=== PATIENT | male | born 1970 | race Caucasian/White ===

== ENCOUNTER 2023-08-12 11:39 | Outpatient (OUT) | payer MEDICARE, SELFPAY ==
[2023-08-12 12:41] LABS: Estimated Average Glucose 88 mg/dL; Glycohemoglobin A1C 4.7 % (4.5-6.2)
[2023-08-12 13:01] LABS: Basophils Percent Auto 0.6 % (0.2-2.0); Eosinophils Absolute Auto 0.1 10^3/uL (0.0-0.7); Eosinophils Percent Auto 2.3 % (0.9-7.0); Hematocrit 47.9 % (42.0-54.0); Immature Granulocytes Abs Auto 0.01 10^3/uL (0.00-0.03); Immature Granulocytes Pct Auto 0.2 % (0.0-0.5); Lymphocytes Absolute Auto 1.3 10^3/uL (1.2-3.8); Lymphocytes Percent Auto 27.2 % (20.5-60.0); Mean Corpuscular HGB Conc 33.4 g/dL (29.9-35.2); Mean Corpuscular Hemoglobin 34.8 pg (25.9-34.0); Mean Corpuscular Volume 104.1 fL (80.0-94.0); Mean Platelet Volume 11.8 fL (9.5-13.5); Monocytes Absolute Auto 0.5 10^3/uL (0.3-0.8); Monocytes Percent Auto 10.3 % (1.7-12.0); Neutrophils Absolute Auto 2.8 10^3/uL (1.4-6.5); Neutrophils Percent Auto 59.4 % (43.0-75.0); Platelet Count 110 10^3/uL (150-450); Red Cell Distribution Width 12.3 % (11.0-15.0); White Blood Count 4.8 10^3/uL (4.0-11.0)
[2023-08-12 13:15] LABS: Anion Gap 16.5; Chloride 102 mmol/L (98-107); Potassium 4.5 mmol/L (3.5-5.1); Sodium 137 mmol/L (136-145)
[2023-08-12 13:42] LABS: Alanine Aminotransferase 33 U/L (16-63); Albumin Globulin Ratio 0.7; Albumin Level 3.3 g/dL (3.4-5.0); Alkaline Phosphatase 121 U/L (46-116); Aspartate Amino Transferase 42 U/L (15-37); BUN Creatinine Ratio 13.9; Bilirubin Total 1.1 mg/dL (0.2-1.0); Calcium 9.4 mg/dL (8.5-10.1); Chol HDL Ratio 2.7; Cholesterol 247 mg/dL (<=200); Estimated GFR (African America >60 (>=60); Estimated GFR (Non-African Ame >60 (>=60); Free T3 2.26 pg/mL (2.18-3.98); Globulin 4.7 g/dL; Glucose 114 mg/dL (74-106); HDL Cholesterol 93 mg/dL (40-60); Thyroid Stimulating Hormone 1.944 uIU/mL (0.358-3.740); Triglycerides 92 mg/dL (<=150); VLDL CHOLESTEROL 18.4 mg/dL
[2023-08-12 15:50] LABS: Prostate Specific Antigen Scrn 0.84 ng/mL (<=4.00)
[2023-08-13 11:09] LABS: Insulin 26.7 uIU/mL (2.6-24.9)
== END 2023-08-12 11:40 | disposition home or self-care (01) ==
LOC: LAB 11:40
PROVIDERS: PCP Family Medicine; Visit Provider Family Medicine
DX: I10 Essential (primary) hypertension (principal); E83.119 Hemochromatosis, unspecified; E78.5 Hyperlipidemia, unspecified; K76.0 Fatty (change of) liver, not elsewhere classified; N17.9 Acute kidney failure, unspecified; R73.09 Other abnormal glucose; Z12.5 Encounter for screening for malignant neoplasm of prostate; D64.9 Anemia, unspecified
CPT/HCPCS: 36415; 80053; 80061; 82728; 83036; 83525; 83540; 84436; 84443; 84481; 85025; G0103

== ENCOUNTER 2023-08-22 13:48 | Outpatient (OUT) | payer MEDICARE, SELFPAY ==
[2023-08-22 14:00] LABS: Basophils Percent Auto 0.5 % (0.2-2.0); Eosinophils Absolute Auto 0.1 10^3/uL (0.0-0.7); Hematocrit 45.4 % (42.0-54.0); Hemoglobin 15.5 g/dL (14.0-18.0); Immature Granulocytes Abs Auto 0.02 10^3/uL (0.00-0.03); Immature Granulocytes Pct Auto 0.4 % (0.0-0.5); Lymphocytes Absolute Auto 1.5 10^3/uL (1.2-3.8); Lymphocytes Percent Auto 26.7 % (20.5-60.0); Mean Corpuscular HGB Conc 34.1 g/dL (29.9-35.2); Mean Corpuscular Hemoglobin 34.8 pg (25.9-34.0); Mean Platelet Volume 11.2 fL (9.5-13.5); Monocytes Absolute Auto 0.6 10^3/uL (0.3-0.8); Monocytes Percent Auto 10.4 % (1.7-12.0); Neutrophils Absolute Auto 3.4 10^3/uL (1.4-6.5); Platelet Count 109 10^3/uL (150-450); Red Blood Count 4.45 10^6/uL (4.70-6.10); Red Cell Distribution Width 12.1 % (11.0-15.0); White Blood Count 5.6 10^3/uL (4.0-11.0)
== END 2023-08-22 13:49 | disposition home or self-care (01) ==
LOC: LAB 13:48
PROVIDERS: PCP Family Medicine; Visit Provider Family Medicine
DX: E03.9 Hypothyroidism, unspecified (principal); D69.6 Thrombocytopenia, unspecified
CPT/HCPCS: 36415; 85025

== ENCOUNTER 2023-09-17 14:46 | Outpatient (OUT) | payer OTHER, SELFPAY ==
[2023-09-17 15:35] LABS: Thyroid Stimulating Hormone 1.353 uIU/mL (0.358-3.740)
--- OUTSIDE RECORDS SUMMARY | 2023-10-28 15:56 | XMS_ITS | CCD ---
Author Name Unknown Address [address] [place] [address] Organization [facility] Care Team Providers Care Hand Carver Name Role Phone None, No PCP Unavailable Unavailable STEPHANIE, DR AMADOU Chang Attending Unavailable STEPHANIE, DR AMADOU Chang Consulting Unavailable STEPHANIE, DR AMADOU Chang Admitting Unavailable HOY, DR VALLEJO Primary Care Unavailable DARREN, DR Teresa Alcala Admitting Unavailable DARREN, DR Teresa Alcala Attending Unavailable HOY, DR VALLEJO Primary Care Unavailable MAXWELL, DR VALLEJO Consulting Unavailable DARREN, DR Teresa Alcala Consulting Unavailable PolicaroKristen Consulting Unavailable MAXWELL, DR VALLEJO Admitting Unavailable MAXWELL, DR VALLEJO Attending Unavailable AQUILINOY, DR VALLEJO Primary Care Unavailable MAXWELL, DR VALLEJO Consulting Unavailable STEPHANIE, DR AMADOU Chang Consulting Unavailable STEPHANIE, DR AMAODU Chang Admitting Unavailable STEPHANIE, DR AMADOU Chang Attending Unavailable MAXWELL, DR VALLEJO Primary Care Unavailable MAXWELL, DR VALLEJO Primary Care Unavailable STEPHANIE, DR AMADOU Chang Consulting Unavailable STEPHANIE, DR AMADOU Chang Admitting Unavailable STEPHANIE, DR AMADOU Chang Attending Unavailable MAXWELL, DR VALLEJO Primary Care Unavailable MISC, DR POWELL Admitting Unavailable MISC, DR POWELL Attending Unavailable MAXWELL, DR VALLEJO Consulting Unavailable MISC, DR POWELL Consulting Unavailable STEPHANIE, DR AMADOU Chang Consulting Unavailable STEPHANIE, DR AMADOU Chang Consulting Unavailable STEPHANIE, DR AMADOU Chang Admitting Unavailable STEPHANIE, DR AMADOU Chang Attending Unavailable MAXWELL, DR VLALEJO Primary Care Unavailable MAXWELL, DR VALLEJO Admitting Unavailable MAXWELL, DR VALLEJO Attending Unavailable MAXWELL, DR VALLEJO Primary Care Unavailable HOQian, DR VALLEJO Consulting Unavailable MAXWELL, DR VALLEJO Admitting Unavailable MAXWELL, DR VALLEJO Attending Unavailable MAXWELL, DR VALLEJO Primary Care Unavailable MAXWELL, DR VALLEJO Consulting Unavailable STEPHANIE, DR AMADOU Chang Consulting Unavailable STEPHANIE, DR AMADOU Chang Admitting Unavailable STEPHANIE, DR AMADOU Chang Attending Unavailable MAXWELL, DR VALLEJO Primary Care Unavailable STEPHANIE, DR AMADOU Chang Consulting Unavailable STEPHANIE, DR AMADOU Chang Admitting Unavailable HOY, DR VALLEJO Primary Care Unavailable STEPHANIE, DR AMADOU Chang Attending Unavailable HOY, DR VALLEJO Primary Care Unavailable STEPHANIE, DR AMADOU Chang Consulting Unavailable STEPHANIE, DR AMADOU Chang Admitting Unavailable STEPHANIE, DR AMADOU Chang Attending Unavailable STEPHANIE, DR AMADOU Chang Consulting Unavailable STEPHANIE, DR AMADOU Chang Attending Unavailable STEPHANIE, DR AMADOU Chang Admitting Unavailable HOY, DR VALLEJO Primary Care Unavailable HOY, DR VALLEJO Primary Care Unavailable STEPHANIE, DR AMADOU Chang Consulting Unavailable STEPHANIE, DR AMADOU Chang Admitting Unavailable STEPHANIE, DR AMADOU Chang Attending Unavailable MISC, DR POWELL Consulting Unavailable MISC, DR POWELL Admitting Unavailable MISC, DR POWELL Attending Unavailable HOY, DR VALLEJO Primary Care Unavailable STEPHANIE, DR AMADOU Chang Consulting Unavailable HOY, DR VALLEJO Primary Care Unavailable STEPHANIE, DR AMADOU Chang Attending Unavailable STEPHANIE, DR AMADOU Chang Consulting Unavailable STEPHANIE, DR AMADOU Chang Admitting Unavailable STEPHANIE, DR AMADOU Chang Attending Unavailable STEPHANIE, DR AMADOU Chang Consulting Unavailable STEPHANIE, DR AMADOU Chang Admitting Unavailable HOY, DR VALLEJO Primary Care Unavailable STEPHNAIE, DR AMADOU Chang Attending Unavailable STEPHANIE, DR AMADOU Chang Consulting Unavailable STEPHANIE, DR AMADOU Chang Admitting Unavailable HOY, DR VALLEJO Primary Care Unavailable STEPHANIE, DR AMADOU Chang Consulting Unavailable STEPHANIE, DR AMADOU Chang Attending Unavailable STEPHANIE, DR AMADOU Chang Admitting Unavailable HOY, DR VALLEJO Primary Care Unavailable STEPHANIE, DR AMADOU Chang Consulting Unavailable STEPHANIE, DR AMADOU Chang Attending Unavailable STEPHANIE, DR AMADOU Chang Admitting Unavailable HOY, DR VALLEJO Primary Care Unavailable REQUEST, DR RASCON LISTED Consulting Unavaila ble MAXWELL, DR VALLEJO Primary Care Unavailable REQUEST, DR RASCON LISTED Admitting Unavaila ble REQUEST, DR RASCON LISTED Attending Unavaila ble MAXWELL, DR VALLEJO Primary Care Unavailable STEPHANIE, DR AMADOU Chang Admitting Unavailable STEPHANIE, DR AMADOU Chang Attending Unavailable HOY, DR VALLEJO Consulting Unavailable STEPHANIE, DR AMADOU Chang Consulting Unavailable STEPHANIE, DR AMADOU Chang Consulting Unavailable STEPHANIE, DR AMADOU Chang Admitting Unavailable HOY, DR VALLEJO Primary Care Unavailable STEPHANIE, DR AMADOU Chang Attending Unavailable HOQian, DR VALLEJO Primary Care Unavailable REQUEST, DR RASCON LISTED Consulting Unavaila ble REQUEST, DR RASCON LISTED Admitting Unavaila ble REQUEST, DR RASCON LISTED Attending Unavaila ble Magaly Sewelline Attending Unavail Matheus Moore Referring UnavailGenevieve Hernandez Primary Care Unavailable Magaly Sewell Admitting Fortino hanson Allergies Allergy Classification Reported Allergen(s) Allergy Type Date of Onset Reaction(s) Facility (2 sources) Morphine Drug Allergy 2 Swelling of the Eye [facility] Repository (1 source) Morphine Drug Allergy 2 [facility] Repository Medications Current Medications Medication Drug Class(es) Dates Sig (Normalized) Sig (Original) carvedilol 6.25 mg oral tablet (6 sources) alpha-Adrenergic Radha, beta-Adrenergic Radha Start: 05-18-2020 take 6.25 mg by mouth twice daily Carvedilol Active 6.25 MG PO Twice daily May 18, 2020 12:00am folic acid 1 mg oral tablet (2 sources) Start: 05-11-2021 End: 05-11-2021 take 1 mg by mouth once daily Folic Acid Active 1 MG PO Daily May 11, 2021 12:13pm lisinopril 2.5 mg oral tablet (2 sources) Angiotensin Converting Enzyme Inhibitor Start: 04-11-2021 take 2.5 mg by mouth once daily Lisinopril Active 2.5 MG PO Daily April 11, 2021 12:00am Start: 04-20-2020 End: 04-22-2020 take 10 mg by mouth once daily Lisinopril Discontinued 10 MG PO Daily April 20, 2020 12:00am April 22, 2020 12:04pm mirtazapine 45 mg oral tablet (6 sources) Start: 04-20-2020 take 45 mg by mouth once daily Mirtazapine Active 45 MG PO Daily April 20, 2020 12:00am risperiDONE 1 mg oral tablet (6 sources) Atypical Antipsychotic Start: 04-20-2020 take 1 mg by mouth once daily Risperidone Active 1 MG PO Daily April 20, 2020 12:00am Completed/Discontinued Medications Medication Drug Class(es) Dates Sig (Normalized) Sig (Original) simvastatin 10 mg oral tablet (1 source) HMG-CoA Reductase Inhibitor Start: 04-20-2020 End: 12-12-2020 take 10 mg by mouth once daily Simvastatin Discontinued 10 MG PO Daily April 20, 2020 12:00am December 12, 2020 12:20pm Problems Active Problems Problem Classification Problem Date Documented Da te Episodic/Chronic Acute and unspecified renal failure (1 source) Injury of kidney; Translations: [Acute kidney failure, unspecified] 04-21-2020 Episodic Anxiety disorders (1 source) Anxiety; Translations: [Anxiety disorder, unspecified] 12-13-2020 Chronic Deficiency and other anemia (1 source) Anemia due to blood loss; 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-2022 Chronic Disorders of lipid metabolism (1 source) Hypercholesterolemi a; Translations: [Pure hypercholesterolemi a, unspecified] 12-13-2020 Chronic Essential hypertension (5 sources) Essential (primary) hypertension; Translations: [Hypertensive disorder] Onset: 11-26-2021 Chronic Hepatitis (1 source) Nonalcoholic steatohepatitis; Translations: [Other chronic nonalcoholic liver disease] Chronic Comment on above: Liver Biopsy 2020: T he findings are consistent with steatohepatitis with pericellular andperiportal fibrosis, regardless of the etiology, activity score ASAF grade 4 of8, fibrosis stage 2 of 4.; Other circulatory disease (5 sources) H/O: hypertension; Translations: [Personal history of other diseases of circulatory system] Episodic Other gastrointestinal disorders (1 source) Diarrhea; Translations: [Diarrhea, unspecified] 12-13-2020 Episodic Other liver diseases (1 source) Steatosis of liver; Translations: [Fatty (change of) liver, not elsewhere classified] 09-13-2021 Chronic Other liver diseases (1 source) Enzyme level - finding; Translations: [Abnormal levels of other serum enzymes] 05-12-2021 Episodic Other nutritional; endocrine; and metabolic disorders (5 sources) Hemochromatosis; Translations: [Other hemochromatosis] Chronic Other nutritional; endocrine; and metabolic disorders (5 sources) Iron overload; Translations: [Other disorders of iron metabolism] Chronic Other nutritional; endocrine; and metabolic disorders (5 sources) Hereditary hemochromatosis; Translations: [HEREDITARY HEMOCHROMATOSIS] Onset: 11-26-2021 Chronic Other nutritional; endocrine; and metabolic disorders (5 sources) Hemochromatosis, unspecified; Translations: [HEMOCHROMATOSIS UNSPECIFIED] Onset: 12-15-2020 Chronic Other nutritional; endocrine; and metabolic disorders (1 source) Other disorders of iron metabolism; Translations: [OTHER DISORDERS OF IRON METABOLISM] Onset: 05-06-2021 Chronic Other nutritional; endocrine; and metabolic disorders (1 source) Hereditary hemochromatosis; Translations: [Hereditary hemochromatosis] 12-13-2020 Chronic Other screening for suspected conditions (not mental disorders or infectious disease) (5 sources) Measurement finding above reference range; Translations: [Other nonspecific findings on examination of blood] Episodic Screening and history of mental health and substance abuse codes (5 sources) H/O: anxiety state; Translations: [Personal history of other mental disorders] Episodic Unclassified (3 sources) CONTACT W/AND (SUSP) EXPOS COVID-19; Translations: [CONTACT W/AND (SUSP) EXPOS COVID-19] Onset: 11-22-2021 Past or Other Problems Problem Classification Problem Date Documented Date Episodic/Chronic Noninfectious gastroenteritis (1 source) Noninfective gastroenteritis and colitis, unspecified; Translations: [NONINFECTIVE GE AND COLITIS UNS] Onset: 01-11-2021 Episodic Other liver diseases (4 sources) Abnormal levels of other serum enzymes; Translations: [ABNORMAL LEVELS OTHER SERUM ENZYMES] Onset: 12-09-2020 Episodic Unclassified (1 source) CONTACT W/AND (SUSP) EXPOS COVID-19; Translations: [CONTACT W/AND (SUSP) EXPOS COVID-19] Onset: 11-15-2021 Results Test Name Value Interpretation Reference Range Facil ity In office Testingon 01-29-20 23 In office Testing [id number]:127 Normal [facility] AMYLASEon 11-26-2021 Amylase [Catalytic activity/Vol] 53 U/L Normal 31- 110 [facility] Comment on above: Performed By: #### T 7, LIPA, TSH, AMADOU, CMP #### [facility] [address] [address] [address] Krystle Heaton CBC AUTO DIFFon 11-26-2021 BASO # 0.0 103/ul Normal 0.0-0.1 [facility] Comment on above: Performed By: #### F ERR #### [facility] [address] [address] [address] Krystle Heaton Basophils/100 WBC (Bld) 0.6 % Normal 0.2-2.0 [facility] Comment on above: Performed By: #### F ERR #### [facility] [address] [place] [address] Dr. Krystle Heaton EO # 0.1 103/ul Normal 0.0-0.7 [facility] Comment on above: Performed By: #### F ERR #### [facility] [address] [place] [address] Dr. Krystle Heaton Eosinophils/100 WBC (Bld) 2.7 % Normal 0.9-7.0 [facility] Comment on above: Performed By: #### F ERR #### [facility] [address] [place] [address] Dr. Krystle Heaton Erythrocyte distribution wid th (RBC) [Ratio] 16.0 % Critically high 11.0-15.0 [facility] Comment on above: Performed By: #### F ERR #### [facility] [address] [place] [address] Dr. Krystle Heaton Hematocrit (Bld) [Volume fraction] 42.8 % Normal 4 2.0-54.0 [facility] Comment on above: Performed By: #### F ERR #### [facility] [address] [place] [address] Dr. Krystle Heaton Hemoglobin (Bld) [Mass/Vol] 13.0 g/dL Critically low 14.0 -18.0 [facility] Comment on above: Performed By: #### F ERR #### [facility] [address] [place] [address] Dr. Krystle Heaton IG # 0.02 10e3/ul Normal 0.00-0.03 [facility] Comment on above: Performed By: #### F ERR #### [facility] [address] [place] [address] Dr. Krystle Heaton IG % 0.4 % Normal 0.0-0.5 [facility] Comment on above: Performed By: #### F ERR #### [facility] [address] [place] [address] Dr. Krystle Heaton LYMPH # 0.9 103/ul Critically low 1.2-3.8 [facility] Comment on above: Performed By: #### F ERR #### [facility] [address] [place] [address] Dr. Krystle Heaton Lymphocytes/100 WBC (Bld) 19.1 % Critically low 20.5-6 0.0 [facility] Comment on above: Performed By: #### F ERR #### [facility] [address] [place] [address] Dr. Krystle Heaton MANUAL DIFF REQ NO Normal [facility] Comment on above: Performed By: #### F ERR #### [facility] [address] [place] [address] Dr. Krystle Heaton MCH (RBC) [Entitic mass] 27.7 pg Normal 25.9-34.0 [facility] Comment on above: Performed By: #### F ERR #### [facility] [address] [place] [address] Dr. Krystle Heaton MCHC (RBC) [Mass/Vol] 30.4 g/dL Normal 29.9-35.2 [facility] Comment on above: Performed By: #### F ERR #### [facility] [address] [place] [address] Dr. Krystle Heaton MCV (RBC) [Entitic vol] 91.1 fL Normal 80.0-94.0 [facility] Comment on above: Performed By: #### F ERR #### [facility] [address] [place] [address] Dr. Krystle Heaton MONO # 0.5 103/ul Normal 0.3-0.8 [facility] Comment on above: Performed By: #### F ERR #### [facility] [address] [place] [address] Dr. Krystle Heaton Monocytes/100 WBC (Bld) 10.4 % Normal 1.7-12.0 [facility] Comment on above: Performed By: #### F ERR #### [facility] [address] [place] [address] Dr. Krystle Heaton NEUT # 3.2 103/ul Normal 1.4-6.5 [facility] Comment on above: Performed By: #### F ERR #### [facility] [address] [place] [address] Dr. Krystle Heaton Neutrophils/100 WBC (Bld) 66.8 % Normal 43.0-75.0 [facility] Comment on above: Performed By: #### F ERR #### [facility] [address] [place] [address] Dr. Krystle Heaton Platelet mean volume (Bld) [ Entitic vol] 11.3 fL Normal 9.5-13.5 [facility] Comment on above: Performed By: #### F ERR #### [facility] [address] [place] [address] Dr. Krystle Heaton PLT 177 103/ul Normal 150-450 [facility] Comment on above: Performed By: #### F ERR #### [facility] [address] [place] [address] Dr. Krystle Heaton RBC 4.70 106/ul Normal 4.70-6.10 [facility] Comment on above: Performed By: #### F ERR #### [facility] [address] [place] [address] Dr. Krystle Heaton WBC 4.8 103/ul Normal 4.0-11.0 [facility] Comment on above: Performed By: #### F ERR #### [facility] [address] [place] [address] Dr. Krystle Heaton FERRITINon 11-26-2021 Ferritin [Mass/Vol] 63.0 ng/mL Normal 17.9-464.0 [facility] Comment on above: Performed By: #### C BC #### [facility] [address] [place] [address] Billy Devlin FREE THYROXINE INDEX T7on FTI 2.14 Normal [facility] Comment on above: Performed By: #### T 7, LIPA, TSH, AMADOU, CMP #### [facility] [address] [place] [address] Dr. Krystle Heaton T3U 34.0 % Normal 23.5-40.5 [facility] Comment on above: Performed By: #### T 7, LIPA, TSH, AMADOU, CMP #### [facility] [address] [place] [address] Dr. Krystle Heaton T4 [Mass/Vol] 6.30 ug/dL Normal 5.53-11.00 [facility] Comment on above: Performed By: #### T 7, LIPA, TSH, AMADOU, CMP #### [facility] [address] [place] [address] Dr. Krystle Heaton LIPASEon 11-26-2021 Lipase [Catalytic activity/Vol] 115.0 U/L Normal 23.0 -300.0 [facility] Comment on above: Performed By: #### T 7, LIPA, TSH, AMADOU, CMP #### [facility] [address] [place] [address] Dr. Krystle Heaton PROF 14(COMP METB)on 022 Albumin [Mass/Vol] 3.6 g/dL Normal 3.5-5.0 [facility] Comment on above: Performed By: #### T 7, LIPA, TSH, AMADOU, CMP #### [facility] [address] [place] [address] Dr. Krystle Heaton Albumin/Globulin [Mass ratio] 0.9 {ratio} Normal [facility] Comment on above: Performed By: #### T 7, LIPA, TSH, AMADOU, CMP #### [facility] [address] [place] [address] Dr. Krystle Heaton ALP [Catalytic activity/Vol] 94 U/L Normal 38-126 [facility] Comment on above: Performed By: #### T 7, LIPA, TSH, AMADOU, CMP #### [facility] [address] [place] [address] Dr. Krystle Heaton ALT [Catalytic activity/Vol] 103 U/L Critically high 21 -72 [facility] Comment on above: Performed By: #### T 7, LIPA, TSH, AMADOU, CMP #### [facility] [address] [place] [address] Dr. Krystle Heaton Anion gap [Moles/Vol] 12.8 mmol/L Normal [facility] Comment on above: Performed By: #### T 7, LIPA, TSH, AMADOU, CMP #### [facility] [address] [place] [address] Dr. Krystle Heaton AST [Catalytic activity/Vol] 148 U/L Critically high 17 -59 [facility] Comment on above: Performed By: #### T 7, LIPA, TSH, AMADOU, CMP #### [facility] [address] [address] [address] Krystle Heaton Bilirubin [Mass/Vol] 1.2 mg/dL Normal 0.2-1.3 [facility] Comment on above: Performed By: #### T 7, LIPA, TSH, AMADOU, CMP #### [facility] [address] [place] [address] Dr. Krystle eHaton Calcium [Mass/Vol] 9.1 mg/dL Normal 8.4-10.2 [facility] Comment on above: Performed By: #### T 7, LIPA, TSH, AMADOU, CMP #### [facility] [address] [place] [address] Dr. Krystle Heaton Chloride [Moles/Vol] 100 mmol/L Normal 98-107 [facility] Comment on above: Performed By: #### T 7, LIPA, TSH, AMADOU, CMP #### [facility] [address] [place] [address] Dr. Krystle Heaton CO2 [Moles/Vol] 26.7 mmol/L Normal 22.0-30.0 [facility] Comment on above: Performed By: #### T 7, LIPA, TSH, AMADOU, CMP #### [facility] [address] [place] [address] Dr. Krystle Heaton Creatinine [Mass/Vol] 0.94 mg/dL Normal 0.66-1.25 [facility] Comment on above: Performed By: #### T 7, LIPA, TSH, AMADOU, CMP #### [facility] [address] [place] [address] Dr. Krystle Heaton EGFR-AF ARGENTINE >60 Normal >=60 [facility] Comment on above: Performed By: #### T 7, LIPA, TSH, AMADOU, CMP #### [facility] [address] [address] [address] Krystle Heaton EGFR-NON AF ARGENTINE >60 Normal >=60 [facility] Comment on above: Performed By: #### T 7, LIPA, TSH, AMADOU, CMP #### [facility] [address] [address] [address] Krystle Heaton Globulin (S) [Mass/Vol] 4.0 g/dL Normal [facility] Comment on above: Performed By: #### T 7, LIPA, TSH, AMADOU, CMP #### [facility] [address] [address] [address] Krystle Heaton Glucose [Mass/Vol] 112 mg/dL Critically high 74-106 [facility] Comment on above: Performed By: #### T 7, LIPA, TSH, AMADOU, CMP #### [facility] [address] [address] [address] Krystle Heaton Potassium [Moles/Vol] 4.5 mmol/L Normal 3.4-5.0 [facility] Comment on above: Performed By: #### T 7, LIPA, TSH, AMADOU, CMP #### [facility] [address] [address] [address] Krystle Heaton Protein [Mass/Vol] 7.6 g/dL Normal 6.1-8.2 [facility] Comment on above: Performed By: #### T 7, LIPA, TSH, AMADOU, CMP #### [facility] [address] [address] [address] Krystle Heaton Sodium [Moles/Vol] 135 mmol/L Critically low 137-145 [facility] Comment on above: Performed By: #### T 7, LIPA, TSH, AMADOU, CMP #### [facility] [address] [address] [address] Krystle Heaton Urea nitrogen [Mass/Vol] 5.0 mg/dL Critically low 9.0-20. 0 [facility] Comment on above: Performed By: #### T 7, LIPA, TSH, AMADOU, CMP #### [facility] [address] [address] [address] Krystle Heaton Urea nitrogen/Creatinine [Mass ratio] 5.3 mg/mg Normal [facility] Comment on above: Performed By: #### T 7, LIPA, TSH, AMADOU, CMP #### [facility] [address] [address] [address] Krystle Heaton TSHon 11-26-2021 TSH 1.842 uIU/mL Normal 0.470-4.680 [facility] Comment on above: Performed By: #### T 7, LIPA, TSH, AMADOU, CMP #### [facility] [address] [place] [address] Dr. Krystle Heaton TSH RANGE SEE BELOW Normal [facility] Comment on above: Result Comment: <0.3 4 UIU/ml HYPERTHYROID 0.34-5.60 UIU/ml EUTHYROID >5.60 UIU/ml HYPOTHYROID Performed By: #### T 7, LIPA, TSH, AMADOU, CMP #### [facility] [address] [place] [address] Dr. Krystle Heaton [facility]on SARS-CoV-2 (COVID-19) RNA JIMBO+probe Ql (Unsp spec) Not detected Normal NOT DETECTED [facility] Comment on above: Result Comment: This test is not yet approved or cleared by the [place] FDA. When there are no FDA-approved or cleared tests available, and other criteria are met, FDA can make tests available under an emergency access mechanism called an Emergency Use Authorization (EUA). The EUA for this test is supported by the [place] of Health and Human Service's (HHS's) declaration that circumstances exist to justify the emergency use of in vitro diagnostics for the detection and/or diagnosis of the virus that causes COVID-19. This EUA will remain in effect (meaning this test can be used) for the duration of the COVID-19 declaration justifying emergency of IVDs, unless it is terminated or revoked by FDA (after which the test may no longer be used). When diagnostic testing is negative, the possibility of a false negative should be considered in the context of a patient's recent exposures and the presence of clinical signs and symptoms consistent with SARS-CoV-2. Performed By: #### F ERR #### [facility] [address] [place] [address] Dr. Krystle Heaton CBC AUTO DIFFon 10-08-2021 BASO # 0.0 103/ul Normal 0.0-0.1 [facility] Comment on above: Performed By: #### T 7, LIPA, TSH, AMADOU, CMP #### [facility] [address] [place] [address] Dr. Krystle Heaton Basophils/100 WBC (Bld) 0.7 % Normal 0.2-2.0 [facility] Comment on above: Performed By: #### T 7, LIPA, TSH, AMADOU, CMP #### [facility] Laboratory [address] [place] [address] Dr. Krystle Heaton EO # 0.2 103/ul Normal 0.0-0.7 [facility] ospital Comment on above: Performed By: #### T 7, LIPA, TSH, AMADOU, CMP #### [facility] [address] [place] [address] Dr. Krystle Heaton Eosinophils/100 WBC (Bld) 3.6 % Normal 0.9-7.0 [facility] Comment on above: Performed By: #### T 7, LIPA, TSH, AMADOU, CMP #### [facility] [address] [place] [address] Dr. Krystle Heaton Erythrocyte distribution wid th (RBC) [Ratio] 16.0 % Critically high 11.0-15.0 [facility] pital Comment on above: Performed By: #### T 7, LIPA, TSH, AMADOU, CMP #### [facility] [address] [place] [address] Dr. Krystle Heaton Hematocrit (Bld) [Volume fraction] 38.7 % Critically low 42.0-54.0 [facility] pital Comment on above: Performed By: #### T 7, LIPA, TSH, AMADOU, CMP #### [facility] [address] [place] [address] Dr. Krystle Heaton Hemoglobin (Bld) [Mass/Vol] 11.7 g/dL Critically low 14.0 -18.0 [facility] Comment on above: Performed By: #### T 7, LIPA, TSH, AMADOU, CMP #### [facility] [address] [place] [address] Dr. Krystle Heaton IG # 0.01 10e3/ul Normal 0.00-0.03 [facility] Comment on above: Performed By: #### T 7, LIPA, TSH, AMADOU, CMP #### [facility] [address] [place] [address] Dr. Krystle Heaton IG % 0.2 % Normal 0.0-0.5 [facility] ospital Comment on above: Performed By: #### T 7, LIPA, TSH, AMADOU, CMP #### [facility] [address] [place] [address] Dr. Krystle Heaton LYMPH # 1.6 103/ul Normal 1.2-3.8 [facility] Comment on above: Performed By: #### T 7, LIPA, TSH, AMADOU, CMP #### [facility] [address] [place] [address] Dr. Krytsle Heaton Lymphocytes/100 WBC (Bld) 29.2 % Normal 20.5-60.0 [facility] Comment on above: Performed By: #### T 7, LIPA, TSH, AMADOU, CMP #### [facility] [address] [place] [address] Dr. Krystle Heaton MANUAL DIFF REQ NO Normal [facility] Comment on above: Performed By: #### T 7, LIPA, TSH, AMADOU, CMP #### [facility] [address] [place] [address] Dr. Krystle Heaton MCH (RBC) [Entitic mass] 27.7 pg Normal 25.9-34.0 [facility] Comment on above: Performed By: #### T 7, LIPA, TSH, AMADOU, CMP #### [facility] [address] [place] [address] Dr. Krystle Heaton MCHC (RBC) [Mass/Vol] 30.2 g/dL Normal 29.9-35.2 [facility] Comment on above: Performed By: #### T 7, LIPA, TSH, AMADOU, CMP #### [facility] [address] [place] [address] Dr. Krystle Heaton MCV (RBC) [Entitic vol] 91.5 fL Normal 80.0-94.0 [facility] Comment on above: Performed By: #### T 7, LIPA, TSH, AMADOU, CMP #### [facility] [address] [place] [address] Dr. Krystle Heaton MONO # 0.6 103/ul Normal 0.3-0.8 [facility] Comment on above: Performed By: #### T 7, LIPA, TSH, AMADOU, CMP #### [facility] [address] [place] [address] Dr. Krystle Heaton Monocytes/100 WBC (Bld) 10.5 % Normal 1.7-12.0 [facility] Comment on above: Performed By: #### T 7, LIPA, TSH, AMADOU, CMP #### [facility] [address] [place] [address] Dr. Krystle Heaton NEUT # 3.1 103/ul Normal 1.4-6.5 [facility] Comment on above: Performed By: #### T 7, LIPA, TSH, AMADOU, CMP #### [facility] [address] [place] [address] Dr. Krystle Heaton Neutrophils/100 WBC (Bld) 55.8 % Normal 43.0-75.0 [facility] Comment on above: Performed By: #### T 7, LIPA, TSH, AMADOU, CMP #### [facility] [address] [place] [address] Dr. Krystle Heaton Platelet mean volume (Bld) [ Entitic vol] 10.9 fL Normal 9.5-13.5 [facility] Comment on above: Performed By: #### T 7, LIPA, TSH, AMADOU, CMP #### [facility] [address] [place] [address] Dr. Krystle Heaton PLT 214 103/ul Normal 150-450 [facility] Comment on above: Performed By: #### T 7, LIPA, TSH, AMADOU, CMP #### [facility] [address] [place] [address] Dr. Krystle Heaton RBC 4.23 106/ul Critically low 4.70-6.10 [facility] Comment on above: Performed By: #### T 7, LIPA, TSH, AMADOU, CMP #### [facility] [address] [place] [address] Dr. Krystle Heaton WBC 5.5 103/ul Normal 4.0-11.0 [facility] Comment on above: Performed By: #### T 7, LIPA, TSH, AMADOU, CMP #### [facility] [address] [place] [address] Dr. Krystle Heaton FERRITINon 10-08-2021 Ferritin [Mass/Vol] 59.0 ng/mL Normal 17.9-464.0 [facility] Comment on above: Performed By: #### T 7, LIPA, TSH, AMADOU, CMP #### [facility] [address] [place] [address] Dr. Krystle Heaton CBC AUTO DIFFon 09-10-2021 BASO # 0.0 103/ul Normal 0.0-0.1 [facility] Comment on above: Performed By: #### C BC #### [facility] [address] [place] [address] Billy Quita Basophils/100 WBC (Bld) 0.8 % Normal 0.2-2.0 [facility] Comment on above: Performed By: #### C BC #### [facility] [address] [place] [address] Billy Quita EO # 0.1 103/ul Normal 0.0-0.7 [facility] Comment on above: Performed By: #### C BC #### [facility] [address] [place] [id number] Billy Quita Eosinophils/100 WBC (Bld) 3.5 % Normal 0.9-7.0 [facility] Comment on above: Performed By: #### C BC #### [facility] [address] [place] [address] Billy Quita Erythrocyte distribution wid th (RBC) [Ratio] 16.7 % Critically high 11.0-15.0 [facility] pitms Comment on above: Performed By: #### C BC #### [facility] [address] [place], [place] [id number] Billy Quita Hematocrit (Bld) [Volume fraction] 40.6 % Critically low 42.0-54.0 [facility] pital Comment on above: Performed By: #### C BC #### [facility] [address] [place], [place] [id number] Billy Quita Hemoglobin (Bld) [Mass/Vol] 12.4 g/dL Critically low 14.0 -18.0 [facility] Comment on above: Performed By: #### C BC #### [facility] [address] [place], [place] [id number] Billy Quita IG # 0.01 10e3/ul Normal 0.00-0.03 [facility] Comment on above: Performed By: #### C BC #### [facility] [address] [place], [place] [id number] Billy Quita IG % 0.3 % Normal 0.0-0.5 [facility] Comment on above: Performed By: #### C BC #### [facility] [address] [place], [place] [id number] Billy Quita LYMPH # 1.5 103/ul Normal 1.2-3.8 [facility] Comment on above: Performed By: #### C BC #### [facility] [address] [place], [place] [id number] Billy Quita Lymphocytes/100 WBC (Bld) 39.7 % Normal 20.5-60.0 [facility] Comment on above: Performed By: #### C BC #### [facility] [address] [place] [id number] Billy Quita MANUAL DIFF REQ NO Normal [facility] Comment on above: Performed By: #### C BC #### [facility] [address] [place], [place] [id number] Billycarrillo Devlin MCH (RBC) [Entitic mass] 27.6 pg Normal 25.9-34.0 [facility] Comment on above: Performed By: #### C BC #### [facility] [address] [place], [place] [id number] Billycarrillo Devlin MCHC (RBC) [Mass/Vol] 30.5 g/dL Normal 29.9-35.2 [facility] Comment on above: Performed By: #### C BC #### [facility] [address] [place], [place] [id number] Billy Quita MCV (RBC) [Entitic vol] 90.2 fL Normal 80.0-94.0 [facility] Comment on above: Performed By: #### C BC #### [facility] [address] [place], [place] [address] Billy Quita MONO # 0.5 103/ul Normal 0.3-0.8 [facility] Comment on above: Performed By: #### C BC #### [facility] [address] [place], [place] [address] Billy Quita Monocytes/100 WBC (Bld) 13.3 % Critically high 1.7-12. 0 [facility] Comment on above: Performed By: #### C BC #### [facility] [address] [place], [place] [address] Billy Quita NEUT # 1.6 103/ul Normal 1.4-6.5 [facility] Comment on above: Performed By: #### C BC #### [facility] [address] [place], [place] [address] Billy Quita Neutrophils/100 WBC (Bld) 42.4 % Critically low 43.0-7 5.0 [facility] Comment on above: Performed By: #### C BC #### [facility] [address] [place] [address] Billy Devlin Platelet mean volume (Bld) [ Entitic vol] 11.5 fL Normal 9.5-13.5 [facility] Comment on above: Performed By: #### C BC #### [facility] [address] [place] [address] Billy Devlin PLT 136 103/ul Critically low 150-450 [facility] Comment on above: Performed By: #### C BC #### [facility] [address] [place] [address] Billy Quita RBC 4.50 106/ul Critically low 4.70-6.10 [facility] Comment on above: Performed By: #### C BC #### [facility] [address] [place] [address] Billycarrillo Deanen WBC 3.7 103/ul Critically low 4.0-11.0 [facility] Comment on above: Performed By: #### C BC #### [facility] [address] [place] [address] Billy Devlin FERRITINon 09-10-2021 Ferritin [Mass/Vol] 106.0 ng/mL Normal 17.9-464.0 [facility] Comment on above: Performed By: #### F ERR #### [facility] [address] [place] [address] Dr. Krystle Heaton CBC AUTO DIFFon 08-15-2021 BASO # 0.0 103/ul Normal 0.0-0.1 [facility] Comment on above: Performed By: #### C BC #### [facility] [address] [place] [address] Dr. Krystle Heaton Basophils/100 WBC (Bld) 0.8 % Normal 0.2-2.0 [facility] Comment on above: Performed By: #### C BC #### [facility] [address] [place] [address] Dr. Krystle Heaton EO # 0.2 103/ul Normal 0.0-0.7 [facility] Comment on above: Performed By: #### C BC #### [facility] [address] [place] [address] Dr. Krystle Heaton Eosinophils/100 WBC (Bld) 4.4 % Normal 0.9-7.0 [facility] Comment on above: Performed By: #### C BC #### [facility] [address] [place] [address] Dr. Krystle Heaton Erythrocyte distribution wid th (RBC) [Ratio] 15.7 % Critically high 11.0-15.0 [facility]ms Comment on above: Performed By: #### C BC #### [facility] [address] [place] [address] Dr. Krystle Heaton Hematocrit (Bld) [Volume fraction] 39.4 % Critically low 42.0-54.0 [facility] Comment on above: Performed By: #### C BC #### [facility] [address] [place] [address] Dr. Krystle Heaton Hemoglobin (Bld) [Mass/Vol] 12.2 g/dL Critically low 14.0 -18.0 [facility] Comment on above: Performed By: #### C BC #### [facility] [address] [place] [address] Dr. Krystle Heaton IG # 0.01 10e3/ul Normal 0.00-0.03 [facility] Comment on above: Performed By: #### C BC #### [facility] [address] [place] [address] Dr. Krystle Heaton IG % 0.2 % Normal 0.0-0.5 [facility] Comment on above: Performed By: #### C BC #### [facility] [address] [place] [address] Dr. Krystle Heaton LYMPH # 1.5 103/ul Normal 1.2-3.8 [facility] Comment on above: Performed By: #### C BC #### [facility] [address] [place] [address] Dr. Krystle Heaton Lymphocytes/100 WBC (Bld) 32.2 % Normal 20.5-60.0 [facility] Comment on above: Performed By: #### C BC #### [facility] [address] [place] [address] Dr. Krystle Heaton MANUAL DIFF REQ NO Normal [facility] Comment on above: Performed By: #### C BC #### [facility] [address] [place] [address] Dr. Krystle Heaton MCH (RBC) [Entitic mass] 27.4 pg Normal 25.9-34.0 [facility] Comment on above: Performed By: #### C BC #### [facility] [address] [place] [address] Dr. Krystle Heaton MCHC (RBC) [Mass/Vol] 31.0 g/dL Normal 29.9-35.2 [facility] Comment on above: Performed By: #### C BC #### [facility] [address] [place] [address] Dr. Krystle Heaton MCV (RBC) [Entitic vol] 88.5 fL Normal 80.0-94.0 [facility] Comment on above: Performed By: #### C BC #### [facility] [address] [place] [address] Dr. Krystle Heaton MONO # 0.6 103/ul Normal 0.3-0.8 [facility] Comment on above: Performed By: #### C BC #### [facility] [address] [place] [address] Dr. Krystle Heaton Monocytes/100 WBC (Bld) 11.7 % Normal 1.7-12.0 [facility] Comment on above: Performed By: #### C BC #### [facility] [address] [place] [address] Dr. Krystle Heaton NEUT # 2.4 103/ul Normal 1.4-6.5 [facility] Comment on above: Performed By: #### C BC #### [facility] [address] [place] [address] Dr. Krystle Heaton Neutrophils/100 WBC (Bld) 50.7 % Normal 43.0-75.0 [facility] Comment on above: Performed By: #### C BC #### [facility] [address] [address] [address] Krystle Heaton Platelet mean volume (Bld) [ Entitic vol] 11.4 fL Normal 9.5-13.5 [facility] pital Comment on above: Performed By: #### C BC #### [facility] [address] [address] [address] Krystle Heaton PLT 169 103/ul Normal 150-450 [facility] ostal Comment on above: Performed By: #### C BC #### [facility] [address] [address] [address] Krystle Heaton RBC 4.45 106/ul Critically low 4.70-6.10 [facility] Comment on above: Performed By: #### C BC #### [facility] [address] [address] [address] Krystle Heaton WBC 4.8 103/ul Normal 4.0-11.0 [facility] Comment on above: Performed By: #### C BC #### [facility] [address] [address] [address] Krystle Heaton FERRITINon 08-15-2021 Ferritin [Mass/Vol] 103.0 ng/mL Normal 17.9-464.0 [facility] Comment on above: Performed By: #### T 7, LIPA, TSH, AMADOU, CMP #### [facility] [address] [address] [address] Krystle Heaton No Panel Informationon 07-31 Name CHUY CHAPIN Pathologist: COLLETTE DOTSON MD Date of Procedure: 07/31/2021 Date Received: -Gastroenterology- [facility] [address] Work Phone: Radiologyon 07-31-2021 US Guidance for fine needle aspiration of Liver Normal MG-Gastroent erology-[place] [address] Work Phone: [facility] Surgical Pathology Depar tmenton 07-31-2021 [facility] Surgical Pathology Department Name CHUY CHAPIN Pathologist: COLLETTE DOTSON MD Date of Procedure: 07/31/2021 Date Received: 07/31/2021 Date Reported 08/03/2021 Submitting Physician: ORTIZ ROLAND MD Location: 0RAD Copy To/Referring/Attending: ENOCH HERRAMNN MD Other External # FINAL DIAGNOSIS LIVER , RANDOM BIOPSY: -- STEATOHEPATITIS WITH PERICELLULAR AND PERIPORTAL FIBROSIS (SEE NOTE). -- NO INCREASE IN IRON OVERLOAD. Note: Sections of the liver biopsy reveal severe, predominantly macrovesicular steatosis (90%, score of 3), as well as occasional ballooning hepatocytes (score 1). Rare foci of lobular inflammation are noted. Portal tracts display mild patchy chronic inflammation. Bile ducts are preserved. Trichrome stain shows pericellular and periportal fibrosis without definite bridging. Reticulin stain shows loss of reticulin in association with the steatosis. Iron stain shows mild deposits in portal macrophages. PAS-D stain does not reveal diagnostic intracytoplasmic globules. The findings are consistent with steatohepatitis with pericellular and periportal fibrosis, regardless of the etiology, activity score ASAF grade 4 of 8, fibrosis stage 2 of 4. Electronically Signed Out By COLLETTE DOTSON MD/[facility] By the signature on this report, the individual or group listed as making the Final Interpretation/Diagnosis certifies that they have reviewed this case. Clinical History: hemachromatosis Specimens Submitted As: A: LIVER , RANDOM SAMPLE Gross Description: Received in formalin, labeled with the patient's name and hospital number, are multiple cylindrical segments of yan-red soft tissue measuring respectively 0.4 cm, 0.7 cm, 1.5 cm, and 1.8 cm in length, and < 0.1 cm in diameter each. The specimen is submitted in toto in 2 cassettes A1 and A2. [facility]/07/31/2021 The assays/tests were performed with appropriate positive and negative controls which stained appropriately. [facility] Department of Pathology [address] [place] [address] Normal [facility] Comment on above: Performed By: #### U HCS #### [facility] Surgical Pathology Department [address] [place] [address] US BIOPSY LIVER PERon 2020 US BIOPSY LIVER PER Patient Name: CHUY CHAPIN STUDY: US BIOPSY LIVER PER; 07/31/2021 1:03 pm PROCEDURE: ULTRASOUND GUIDED NON TARGETED RANDOM BIOPSY OF THE LIVER INDICATION: Hemochromatosis; here for tissue diagnosis COMPARISON: CT-guided liver biopsy 05/08/2021. ACCESSION NUMBER(S): [id number] ORDERING CLINICIAN: ENOCH HERRMANN CLINICAL TRIAL EDUCATOR: Dr. Roland (attending) Dee Lopes MD MEDICATIONS: Versed 2 mg IV; fentanyl 100 mcg IV SEDATION TIME: 20 minutes SPECIMEN: 18 gauge core x3 COMPLICATIONS: None immediate FINDINGS: The patient was identified at the initial medical timeout. Informed consent, including a discussion of the risks (including the risk of bleeding that may require blood products), benefits, and alternatives, was obtained from the patient. Patient's vitals were monitored throughout the procedure by a radiology nurse. Screening evaluation of the right hepatic lobe demonstrates increased echogenicity of the liver without any evidence of biliary dilatation. Patient was placed in supine position. The optimal access tract was first determined. Following standard sterile prep and drape, local as well as deep anesthesia was administered using 1% lidocaine. Thereafter, 3 non targeted random core biopsy samples of the lateral segment of the right hepatic lobe (segment 5) were obtained using an 18 gauge cutting needle advanced via a 17 gauge introducer needle in a coaxial fashion. Specimen appeared grossly adequate and was dropped in formalin. Scanning after each pass demonstrated no evidence of bleeding. Access tract was closed with Gel-Foam pledgets. The patient tolerated the procedure well and without immediate complications. IMPRESSION: Successful ultrasound-guided non targeted random biopsy of the right hepatic lobe lateral segment; 18 gauge core x3. Increased hepatic echogenicity, this is nonspecific however can be seen with hepatic hemochromatosis. I personally reviewed the images/study and I agree with the findings as stated. This study was interpreted at [facility], [place], [place]. Electronically signed by: SANDY ROLAND MD Normal [facility] CBC AUTO DIFFon 07-28-2021 BASO # 0.0 103/ul Normal 0.0-0.1 [facility] Comment on above: Performed By: #### T 7, LIPA, TSH, AMADOU, CMP #### [facility] [address] [place] [address] Dr. Krystle Heaton Basophils/100 WBC (Bld) 0.6 % Normal 0.2-2.0 [facility] Comment on above: Performed By: #### T 7, LIPA, TSH, AMADOU, CMP #### [facility] [address] [place] [address] Dr. Krystle Heaton EO # 0.2 103/ul Normal 0.0-0.7 [facility] Comment on above: Performed By: #### T 7, LIPA, TSH, AMADOU, CMP #### [facility] [address] [place] [address] Dr. Krystle Heaton Eosinophils/100 WBC (Bld) 3.6 % Normal 0.9-7.0 [facility] Comment on above: Performed By: #### T 7, LIPA, TSH, AMADOU, CMP #### [facility] [address] [place] [address] Dr. Krystle Heaton Erythrocyte distribution wid th (RBC) [Ratio] 14.7 % Normal 11.0-15.0 [facility] pital Comment on above: Performed By: #### T 7, LIPA, TSH, AMADOU, CMP #### [facility] [address] [place] [address] Dr. Krystle Heaton Hematocrit (Bld) [Volume fraction] 37.4 % Critically low 42.0-54.0 [facility] Comment on above: Performed By: #### T 7, LIPA, TSH, AMADOU, CMP #### [facility] [address] [place] [address] Dr. Krystle Heaton Hemoglobin (Bld) [Mass/Vol] 11.5 g/dL Critically low 14.0 -18.0 [facility] Comment on above: Performed By: #### T 7, LIPA, TSH, AMADOU, CMP #### [facility] [address] [place] [address] Dr. Krystle Heaton IG # 0.02 10e3/ul Normal 0.00-0.03 [facility] Comment on above: Performed By: #### T 7, LIPA, TSH, AMADOU, CMP #### [facility] [address] [place] [address] Dr. Krystle Heaton IG % 0.4 % Normal 0.0-0.5 [facility] Comment on above: Performed By: #### T 7, LIPA, TSH, AMADOU, CMP #### [facility] [address] [place] [address] Dr. Krystle Heaton LYMPH # 1.5 103/ul Normal 1.2-3.8 [facility] Comment on above: Performed By: #### T 7, LIPA, TSH, AMADOU, CMP #### [facility] [address] [place] [address] Dr. Krystle Heaton Lymphocytes/100 WBC (Bld) 31.3 % Normal 20.5-60.0 [facility] Comment on above: Performed By: #### T 7, LIPA, TSH, AMADOU, CMP #### [facility] [address] [place] [address] Dr. Krystle Heaton MANUAL DIFF REQ NO Normal [facility] Comment on above: Performed By: #### T 7, LIPA, TSH, AMADOU, CMP #### [facility] [address] [place] [address] Dr. Krystle Heaton MCH (RBC) [Entitic mass] 27.8 pg Normal 25.9-34.0 [facility] Comment on above: Performed By: #### T 7, LIPA, TSH, AMADOU, CMP #### [facility] [address] [place] [address] Dr. Krystle Heaton MCHC (RBC) [Mass/Vol] 30.7 g/dL Normal 29.9-35.2 [facility] Comment on above: Performed By: #### T 7, LIPA, TSH, AMADOU, CMP #### [facility] [address] [place] [address] Dr. Krystle Heaton MCV (RBC) [Entitic vol] 90.6 fL Normal 80.0-94.0 [facility] Comment on above: Performed By: #### T 7, LIPA, TSH, AMADOU, CMP #### [facility] [address] [place] [address] Dr. Krystle Heaton MONO # 0.6 103/ul Normal 0.3-0.8 [facility] Comment on above: Performed By: #### T 7, LIPA, TSH, AMADOU, CMP #### [facility] [address] [place] [address] Dr. Krystle Heaton Monocytes/100 WBC (Bld) 12.8 % Critically high 1.7-12. 0 [facility] Comment on above: Performed By: #### T 7, LIPA, TSH, AMADOU, CMP #### [facility] [address] [place] [address] Dr. Krystle Heaton NEUT # 2.4 103/ul Normal 1.4-6.5 [facility] Comment on above: Performed By: #### T 7, LIPA, TSH, AMADOU, CMP #### [facility] [address] [place] [address] Dr. Krystle Heaton Neutrophils/100 WBC (Bld) 51.3 % Normal 43.0-75.0 [facility] Comment on above: Performed By: #### T 7, LIPA, TSH, AMADOU, CMP #### [facility] [address] [place] [address] Dr. Krystle Heaton Platelet mean volume (Bld) [ Entitic vol] 11.4 fL Normal 9.5-13.5 [facility] Comment on above: Performed By: #### T 7, LIPA, TSH, AMADOU, CMP #### [facility] [address] [place] [address] Dr. Krystle Heaton PLT 190 103/ul Normal 150-450 [facility] Comment on above: Performed By: #### T 7, LIPA, TSH, AMADOU, CMP #### [facility] [address] [place] [address] Dr. Krystle Heaton RBC 4.13 106/ul Critically low 4.70-6.10 [facility] Comment on above: Performed By: #### T 7, LIPA, TSH, AMADOU, CMP #### [facility] [address] [place] [address] Dr. Krystle Heaton WBC 4.7 103/ul Normal 4.0-11.0 [facility] Comment on above: Performed By: #### T 7, LIPA, TSH, AMADOU, CMP #### [facility] [address] [place] [address] Dr. Krystle Heaton PROTIMEon 07-28-2021 INR Coag (PPP) [Relative time] 1.00 {INR} Normal [facility] Comment on above: Performed By: #### H BSANS #### [facility] [address] [place] [address] Billy Devlin INR GUIDELINES SEE BELOW Normal [facility] Comment on above: Result Comment: MOUNA RED INR: 2.0 - 3.0 CONDITIONS NOT LISTED BELOW 2.5 - 3.5 FOR PROSTHETIC HEART VALVE REPLACEMENT 2.5 - 3.5 RECURRENT THROMBOSIS Performed By: #### H BSANS #### [facility] [address] [place] [address] Billy Devlin PT Coag (PPP) [Time] 10.8 s Normal 9.0-11.6 [facility] Comment on above: Performed By: #### H BSANS #### [facility] [address] [place] [address] Billy Devlin CBC AUTO DIFFon 07-09-2021 BASO # 0.0 103/ul Normal 0.0-0.1 [facility] Comment on above: Performed By: #### T 7, LIPA, TSH, AMADOU, CMP #### [facility] [address] [place] [address] Dr. Krystle Heaton Basophils/100 WBC (Bld) 0.4 % Normal 0.2-2.0 [facility] Comment on above: Performed By: #### T 7, LIPA, TSH, AMADOU, CMP #### [facility] [address] [place] [address] Dr. Krystle Heaton EO # 0.2 103/ul Normal 0.0-0.7 [facility] Comment on above: Performed By: #### T 7, LIPA, TSH, AMADOU, CMP #### [facility] [address] [place] [address] Dr. Krystle Heaton Eosinophils/100 WBC (Bld) 2.9 % Normal 0.9-7.0 [facility] Comment on above: Performed By: #### T 7, LIPA, TSH, AMADOU, CMP #### [facility] [address] [place] [address] Dr. Krystle Heaton Erythrocyte distribution wid th (RBC) [Ratio] 13.9 % Normal 11.0-15.0 [facility] Comment on above: Performed By: #### T 7, LIPA, TSH, AMADOU, CMP #### [facility] [address] [place] [address] Dr. Krystle Heaton Hematocrit (Bld) [Volume fraction] 40.4 % Critically low 42.0-54.0 [facility] Comment on above: Performed By: #### T 7, LIPA, TSH, AMADOU, CMP #### [facility] [address] [place] [address] Dr. Krystle Heaton Hemoglobin (Bld) [Mass/Vol] 12.3 g/dL Critically low 14.0 -18.0 [facility] Comment on above: Performed By: #### T 7, LIPA, TSH, AMADOU, CMP #### [facility] [address] [place] [address] Dr. Krystle Heaton IG # 0.03 10e3/ul Normal 0.00-0.03 [facility] Comment on above: Performed By: #### T 7, LIPA, TSH, AMADOU, CMP #### [facility] [address] [place] [address] Dr. Krystle Heaton IG % 0.6 % Critically high 0.0-0.5 [facility] Comment on above: Performed By: #### T 7, LIPA, TSH, AMADOU, CMP #### [facility] [address] [place] [address] Dr. Krystle Heaton LYMPH # 1.5 103/ul Normal 1.2-3.8 [facility] Comment on above: Performed By: #### T 7, LIPA, TSH, AMADOU, CMP #### [facility] [address] [place] [address] Dr. Krystle Heaton Lymphocytes/100 WBC (Bld) 28.3 % Normal 20.5-60.0 [facility] Comment on above: Performed By: #### T 7, LIPA, TSH, AMADOU, CMP #### [facility] [address] [place] [address] Dr. Krystle Heaton MANUAL DIFF REQ NO Normal [facility] Comment on above: Performed By: #### T 7, LIPA, TSH, AMADOU, CMP #### [facility] [address] [place] [address] Dr. Krystle Heaton MCH (RBC) [Entitic mass] 28.3 pg Normal 25.9-34.0 [facility] Comment on above: Performed By: #### T 7, LIPA, TSH, AMADOU, CMP #### [facility] [address] [place] [address] Dr. Krystle Heaton MCHC (RBC) [Mass/Vol] 30.4 g/dL Normal 29.9-35.2 [facility] Comment on above: Performed By: #### T 7, LIPA, TSH, AAMDOU, CMP #### [facility] [address] [place] [address] Dr. Krystle Heaton MCV (RBC) [Entitic vol] 93.1 fL Normal 80.0-94.0 [facility] Comment on above: Performed By: #### T 7, LIPA, TSH, AMADOU, CMP #### [facility] [address] [place] [address] Dr. Krystle Heaton MONO # 0.7 103/ul Normal 0.3-0.8 [facility] Comment on above: Performed By: #### T 7, LIPA, TSH, AMADOU, CMP #### [facility] [address] [place] [address] Dr. Krystle Heaton Monocytes/100 WBC (Bld) 13.4 % Critically high 1.7-12. 0 [facility] Comment on above: Performed By: #### T 7, LIPA, TSH, AMADOU, CMP #### [facility] [address] [place] [address] Dr. Krystle Heaton NEUT # 2.8 103/ul Normal 1.4-6.5 [facility] Comment on above: Performed By: #### T 7, LIPA, TSH, AMADOU, CMP #### [facility] [address] [place] [address] Dr. Krystle Heaton Neutrophils/100 WBC (Bld) 54.4 % Normal 43.0-75.0 [facility] Comment on above: Performed By: #### T 7, LIPA, TSH, AMADOU, CMP #### [facility] [address] [place] [address] Dr. Krystle Heaton Platelet mean volume (Bld) [ Entitic vol] 11.7 fL Normal 9.5-13.5 [facility] Comment on above: Performed By: #### T 7, LIPA, TSH, AMADOU, CMP #### [facility] [address] [place] [address] Dr. Krystle Heaton PLT 192 103/ul Normal 150-450 [facility] Comment on above: Performed By: #### T 7, LIPA, TSH, AMADOU, CMP #### [facility] [address] [place] [address] Dr. Krystle Heaton RBC 4.34 106/ul Critically low 4.70-6.10 [facility] Comment on above: Performed By: #### T 7, LIPA, TSH, AMADOU, CMP #### [facility] [address] [place] [address] Dr. Krystle Heaton WBC 5.2 103/ul Normal 4.0-11.0 [facility] Comment on above: Performed By: #### T 7, LIPA, TSH, AMADOU, CMP #### [facility] [address] [place] [address] Dr. Krystle Heaton FERRITINon 07-09-2021 Ferritin [Mass/Vol] 122.0 ng/mL Normal 17.9-464.0 [facility] Comment on above: Performed By: #### T 7, LIPA, TSH, AMADOU, CMP #### [facility] [address] [place] [address] Dr. Krystle Heaton CBC AUTO DIFFon 06-11-2021 BASO # 0.0 103/ul Normal 0.0-0.1 [facility] Comment on above: Performed By: #### T 7, LIPA, TSH, AMADOU, CMP #### [facility] [address] [place] [address] Dr. Krystle Heaton Basophils/100 WBC (Bld) 0.7 % Normal 0.2-2.0 [facility] Comment on above: Performed By: #### T 7, LIPA, TSH, AMADOU, CMP #### [facility] [address] [place] [address] Dr. Krystle Heaton EO # 0.2 103/ul Normal 0.0-0.7 [facility] Comment on above: Performed By: #### T 7, LIPA, TSH, AMADOU, CMP #### [facility] [address] [place] [address] Dr. Krystle Heaton Eosinophils/100 WBC (Bld) 3.9 % Normal 0.9-7.0 [facility] Comment on above: Performed By: #### T 7, LIPA, TSH, AMADOU, CMP #### [facility] [address] [place] [address] Dr. Krystle Heaton Erythrocyte distribution wid th (RBC) [Ratio] 13.0 % Normal 11.0-15.0 [facility] Comment on above: Performed By: #### T 7, LIPA, TSH, AMADOU, CMP #### [facility] [address] [place] [address] Dr. Krystle Heaton Hematocrit (Bld) [Volume fraction] 39.0 % Critically low 42.0-54.0 [facility] Comment on above: Performed By: #### T 7, LIPA, TSH, AMADOU, CMP #### [facility] [address] [place], [place] [id number] Dr. Krystle Heaton Hemoglobin (Bld) [Mass/Vol] 12.4 g/dL Critically low 14.0 -18.0 [facility] Comment on above: Performed By: #### T 7, LIPA, TSH, AMADOU, CMP #### [facility] [address] [place] [address] Dr. Krystle Heaton IG # 0.01 10e3/ul Normal 0.00-0.03 [facility] Comment on above: Performed By: #### T 7, LIPA, TSH, AMADOU, CMP #### [facility] [address] [place] [address] Dr. Krystle Heaton IG % 0.2 % Normal 0.0-0.5 [facility] Comment on above: Performed By: #### T 7, LIPA, TSH, AMADOU, CMP #### [facility] [address] [place] [address] Dr. Krystle Heaton LYMPH # 1.0 103/ul Critically low 1.2-3.8 [facility] Comment on above: Performed By: #### T 7, LIPA, TSH, AMADOU, CMP #### [facility] [address] [place] [address] Dr. Krystle Heaton Lymphocytes/100 WBC (Bld) 23.1 % Normal 20.5-60.0 [facility] Comment on above: Performed By: #### T 7, LIPA, TSH, AMADOU, CMP #### [facility] [address] [place] [address] Dr. Krystle Heaton MANUAL DIFF REQ NO Normal [facility] Comment on above: Performed By: #### T 7, LIPA, TSH, AMADOU, CMP #### [facility] [address] [place] [address] Dr. Krystle Heaton MCH (RBC) [Entitic mass] 31.2 pg Normal 25.9-34.0 [facility] Comment on above: Performed By: #### T 7, LIPA, TSH, AMADOU, CMP #### [facility] [address] [place] [address] Dr. Krystle Heaton MCHC (RBC) [Mass/Vol] 31.8 g/dL Normal 29.9-35.2 [facility] Comment on above: Performed By: #### T 7, LIPA, TSH, AMADOU, CMP #### [facility] [address] [place] [address] Dr. Krystle Heaton MCV (RBC) [Entitic vol] 98.2 fL Critically high 80.0-94 .0 [facility] Comment on above: Performed By: #### T 7, LIPA, TSH, AMADOU, CMP #### [facility] [address] [place] [address] Dr. Krystle Heaton MONO # 0.5 103/ul Normal 0.3-0.8 [facility] Comment on above: Performed By: #### T 7, LIPA, TSH, AMADOU, CMP #### [facility] [address] [place] [address] Dr. Krystle Heaton Monocytes/100 WBC (Bld) 10.4 % Normal 1.7-12.0 [facility] Comment on above: Performed By: #### T 7, LIPA, TSH, AMADOU, CMP #### [facility] [address] [place] [address] Dr. Krystle Heaton NEUT # 2.7 103/ul Normal 1.4-6.5 [facility] Comment on above: Performed By: #### T 7, LIPA, TSH, AMADOU, CMP #### [facility] [address] [place] [address] Dr. Krystle Heaton Neutrophils/100 WBC (Bld) 61.7 % Normal 43.0-75.0 [facility] Comment on above: Performed By: #### T 7, LIPA, TSH, AMADOU, CMP #### [facility] [address] [place] [address] Dr. Krystle Heaton Platelet mean volume (Bld) [ Entitic vol] 10.8 fL Normal 9.5-13.5 [facility] Comment on above: Performed By: #### T 7, LIPA, TSH, AMADOU, CMP #### [facility] [address] [place] [address] Dr. Krystle Heaton PLT 197 103/ul Normal 150-450 [facility] Comment on above: Performed By: #### T 7, LIPA, TSH, AMADOU, CMP #### [facility] [address] [place] [address] Dr. Krystle Heaton RBC 3.97 106/ul Critically low 4.70-6.10 [facility] Comment on above: Performed By: #### T 7, LIPA, TSH, AMADOU, CMP #### [facility] [address] [place] [address] Dr. Krystle Heaton WBC 4.3 103/ul Normal 4.0-11.0 [facility] Comment on above: Performed By: #### T 7, LIPA, TSH, AMADOU, CMP #### [facility] [address] [place] [address] Dr. Krystle Heaton FERRITINon 06-11-2021 Ferritin [Mass/Vol] 107.0 ng/mL Normal 17.9-464.0 [facility] Comment on above: Performed By: #### T 7, LIPA, TSH, AMADOU, CMP #### [facility] [address] [place] [address] Dr. Krystle Heaton CBC AUTO DIFFon 05-28-2021 BASO # 0.0 103/ul Normal 0.0-0.1 [facility] Comment on above: Performed By: #### T 7, LIPA, TSH, AMADOU, CMP #### [facility] [address] [place] [address] Dr. Krystle Heaton Basophils/100 WBC (Bld) 0.5 % Normal 0.2-2.0 [facility] Comment on above: Performed By: #### T 7, LIPA, TSH, AMADOU, CMP #### [facility] [address] [place] [address] Dr. Krystle Heaton EO # 0.1 103/ul Normal 0.0-0.7 [facility] Comment on above: Performed By: #### T 7, LIPA, TSH, AMADOU, CMP #### [facility] [address] [place] [address] Dr. Krystle Heaton Eosinophils/100 WBC (Bld) 3.5 % Normal 0.9-7.0 [facility] Comment on above: Performed By: #### T 7, LIPA, TSH, AMADOU, CMP #### [facility] [address] [place] [address] Dr. Krystle Heaton Erythrocyte distribution wid th (RBC) [Ratio] 12.6 % Normal 11.0-15.0 The [facility] Comment on above: Performed By: #### T 7, LIPA, TSH, AMADOU, CMP #### [facility] [address] [place] [address] Dr. Krystle Heaton Hematocrit (Bld) [Volume fraction] 39.8 % Critically low 42.0-54.0 [facility] Comment on above: Performed By: #### T 7, LIPA, TSH, AMADOU, CMP #### [facility] [address] [place] [address] Dr. Krystle Heaton Hemoglobin (Bld) [Mass/Vol] 12.5 g/dL Critically low 14.0 -18.0 [facility] Comment on above: Performed By: #### T 7, LIPA, TSH, AMADOU, CMP #### [facility] [address] [place] [address] Dr. Krystle Heaton IG # 0.00 10e3/ul Normal 0.00-0.03 [facility] Comment on above: Performed By: #### T 7, LIPA, TSH, AMADOU, CMP #### [facility] [address] [place] [address] Dr. Krystle Heaton IG % 0.0 % Normal 0.0-0.5 [facility] Comment on above: Performed By: #### T 7, LIPA, TSH, AMADOU, CMP #### [facility] [address] [place] [address] Dr. Krystle Heaton LYMPH # 1.2 103/ul Normal 1.2-3.8 [facility] Comment on above: Performed By: #### T 7, LIPA, TSH, AMADOU, CMP #### [facility] [address] [place] [address] Dr. Krystle Heaton Lymphocytes/100 WBC (Bld) 32.7 % Normal 20.5-60.0 [facility] Comment on above: Performed By: #### T 7, LIPA, TSH, AMADOU, CMP #### [facility] [address] [place] [address] Dr. Krystle Heaton MANUAL DIFF REQ NO Normal [facility] Comment on above: Performed By: #### T 7, LIPA, TSH, AMADOU, CMP #### [facility] [address] [place] [address] Dr. Krystle Heaton MCH (RBC) [Entitic mass] 32.1 pg Normal 25.9-34.0 [facility] Comment on above: Performed By: #### T 7, LIPA, TSH, AMADOU, CMP #### [facility] [address] [place] [address] Dr. Krystle Heaton MCHC (RBC) [Mass/Vol] 31.4 g/dL Normal 29.9-35.2 [facility] Comment on above: Performed By: #### T 7, LIPA, TSH, AMADOU, CMP #### [facility] [address] [place] [address] Dr. Krystle Heaton MCV (RBC) [Entitic vol] 102.3 fL Critically high 80.0-94 .0 [facility] Comment on above: Performed By: #### T 7, LIPA, TSH, AMADOU, CMP #### [facility] [address] [place] [address] Dr. Krystle Heaton MONO # 0.4 103/ul Normal 0.3-0.8 [facility] Comment on above: Performed By: #### T 7, LIPA, TSH, AMADOU, CMP #### [facility] [address] [place] [address] Dr. Krystle Heaton Monocytes/100 WBC (Bld) 10.5 % Normal 1.7-12.0 [facility] Comment on above: Performed By: #### T 7, LIPA, TSH, AMADOU, CMP #### [facility] [address] [place] [address] Dr. Krystle Heaton NEUT # 2.0 103/ul Normal 1.4-6.5 [facility] Comment on above: Performed By: #### T 7, LIPA, TSH, AMADOU, CMP #### [facility] [address] [place] [address] Dr. Krystle Heaton Neutrophils/100 WBC (Bld) 52.8 % Normal 43.0-75.0 [facility] Comment on above: Performed By: #### T 7, LIPA, TSH, AMADOU, CMP #### [facility] [address] [place] [address] Dr. Krystle Heaton Platelet mean volume (Bld) [ Entitic vol] 10.7 fL Normal 9.5-13.5 [facility] Comment on above: Performed By: #### T 7, LIPA, TSH, AMADOU, CMP #### [facility] [address] [place] [address] Dr. Krystle Heaton PLT 227 103/ul Normal 150-450 [facility] Comment on above: Performed By: #### T 7, LIPA, TSH, AMADOU, CMP #### [facility] [address] [place] [address] Dr. Krystle Heaton RBC 3.89 106/ul Critically low 4.70-6.10 [facility] Comment on above: Performed By: #### T 7, LIPA, TSH, AMADOU, CMP #### [facility] [address] [place] [address] Dr. Krystle Heaton WBC 3.7 103/ul Critically low 4.0-11.0 [facility] Comment on above: Performed By: #### T 7, LIPA, TSH, AMADOU, CMP #### [facility] [address] [place] [address] Dr. Krystle Heaton FERRITINon 05-28-2021 Ferritin [Mass/Vol] 169.0 ng/mL Normal 17.9-464.0 [facility] Comment on above: Performed By: #### F ERR #### [facility] [address] [place] [address] Dr. Krystle Heaton METHYLMALONIC ACID (MMA)on 0 05-18-2021 Disclaimer: Comment Normal [facility] Comment on above: Result Comment: This test was developed and its performance characteristics determined by [facility]. It has not been cleared or approved by the Food and Drug Administration. Performed By: #### T 7, LIPA, TSH, AMADOU, CMP #### [facility] [address] [place] [address] Dr. Krystle Heaton Methylmalonic Acid, Serum 124 nmol/L Normal 0-378 [facility] Comment on above: Performed By: #### T 7, LIPA, TSH, AMADOU, CMP #### [facility] [address] [place] [address] Dr. Krystle Heaton HOMOCYSTEINEon 05-16-2021 Homocyst(e)ine, Plasma 19.5 umol/L Critically high 0.0-14. 5 [facility] Comment on above: Performed By: #### T 7, LIPA, TSH, AMADOU, CMP #### [facility] [address] [place] [address] Dr. Krystle Heaton CBC AUTO DIFFon 05-15-2021 BASO # 0.0 103/ul Normal 0.0-0.1 [facility] Comment on above: Performed By: #### T 7, LIPA, TSH, AMADOU, CMP #### [facility] [address] [place] [address] Dr. Krystle Heaton Basophils/100 WBC (Bld) 0.5 % Normal 0.2-2.0 [facility] Comment on above: Performed By: #### T 7, LIPA, TSH, AMADOU, CMP #### [facility] [address] [place] [address] Dr. Krystle Heaton EO # 0.1 103/ul Normal 0.0-0.7 [facility] Comment on above: Performed By: #### T 7, LIPA, TSH, AMADOU, CMP #### [facility] [address] [place] [address] Dr. Krystle Heaton Eosinophils/100 WBC (Bld) 1.8 % Normal 0.9-7.0 [facility] Comment on above: Performed By: #### T 7, LIPA, TSH, AMADOU, CMP #### [facility] [address] [place] [address] Dr. Krystle Heaton Erythrocyte distribution wid th (RBC) [Ratio] 12.7 % Normal 11.0-15.0 [facility] Comment on above: Performed By: #### T 7, LIPA, TSH, AMADOU, CMP #### [facility] [address] [place] [address] Dr. Krystle Heaton Hematocrit (Bld) [Volume fraction] 39.4 % Critically low 42.0-54.0 [facility] Comment on above: Performed By: #### T 7, LIPA, TSH, AMADOU, CMP #### [facility] [address] [place] [address] Dr. Krystle Heaton Hemoglobin (Bld) [Mass/Vol] 12.9 g/dL Critically low 14.0 -18.0 [facility] Comment on above: Performed By: #### T 7, LIPA, TSH, AMADOU, CMP #### [facility] [address] [place] [address] Dr. Krystle Heaton IG # 0.02 10e3/ul Normal 0.00-0.03 [facility] Comment on above: Performed By: #### T 7, LIPA, TSH, AMADOU, CMP #### [facility] [address] [place] [address] Dr. Krystle Heaton IG % 0.4 % Normal 0.0-0.5 [facility] Comment on above: Performed By: #### T 7, LIPA, TSH, AMADOU, CMP #### [facility] [address] [place] [address] Dr. Krystle Heaton LYMPH # 1.4 103/ul Normal 1.2-3.8 [facility] Comment on above: Performed By: #### T 7, LIPA, TSH, AMADOU, CMP #### [facility] [address] [place] [address] Dr. Krystle Heaton Lymphocytes/100 WBC (Bld) 24.9 % Normal 20.5-60.0 [facility] Comment on above: Performed By: #### T 7, LIPA, TSH, AMADOU, CMP #### [facility] [address] [place] [address] Dr. Krystle Heaton MANUAL DIFF REQ NO Normal [facility] Comment on above: Performed By: #### T 7, LIPA, TSH, AMADOU, CMP #### [facility] [address] [place] [address] Dr. Krystle Heaton MCH (RBC) [Entitic mass] 34.0 pg Normal 25.9-34.0 [facility] Comment on above: Performed By: #### T 7, LIPA, TSH, AMADOU, CMP #### [facility] [address] [place] [address] Dr. Krystle Heaton MCHC (RBC) [Mass/Vol] 32.7 g/dL Normal 29.9-35.2 [facility] Comment on above: Performed By: #### T 7, LIPA, TSH, AMADOU, CMP #### [facility] [address] [place] [address] Dr. Krystle Heaton MCV (RBC) [Entitic vol] 104.0 fL Critically high 80.0-94 .0 [facility] Comment on above: Performed By: #### T 7, LIPA, TSH, AAMDOU, CMP #### [facility] [address] [place] [address] Dr. Krystle Heaton MONO # 0.7 103/ul Normal 0.3-0.8 [facility] Comment on above: Performed By: #### T 7, LIPA, TSH, AMADOU, CMP #### [facility] [address] [place] [address] Dr. Krystle Heaton Monocytes/100 WBC (Bld) 11.8 % Normal 1.7-12.0 [facility] Comment on above: Performed By: #### T 7, LIPA, TSH, AMADOU, CMP #### [facility] [address] [place] [address] Dr. Krystle Heaton NEUT # 3.3 103/ul Normal 1.4-6.5 [facility] Comment on above: Performed By: #### T 7, LIPA, TSH, AMADOU, CMP #### [facility] [address] [place] [address] Dr. Krystle Heaton Neutrophils/100 WBC (Bld) 60.6 % Normal 43.0-75.0 [facility] Comment on above: Performed By: #### T 7, LIPA, TSH, AMADOU, CMP #### [facility] [address] [place] [address] Dr. Krystle Heaton Platelet mean volume (Bld) [ Entitic vol] 10.2 fL Normal 9.5-13.5 [facility] pital Comment on above: Performed By: #### T 7, LIPA, TSH, AMADOU, CMP #### [facility] [address] [place] [address] Dr. Krystle Heaton PLT 196 103/ul Normal 150-450 [facility] Comment on above: Performed By: #### T 7, LIPA, TSH, AMADOU, CMP #### [facility] [address] [place] [address] Dr. Krystle Heaton RBC 3.79 106/ul Critically low 4.70-6.10 [facility] Comment on above: Performed By: #### T 7, LIPA, TSH, AMADOU, CMP #### [facility] [address] [place] [address] Dr. Krystle Heaton WBC 5.5 103/ul Normal 4.0-11.0 [facility] Comment on above: Performed By: #### T 7, LIPA, TSH, AMADOU, CMP #### [facility] [address] [place] [address] Dr. Krystle Heaton FERRITINon 05-15-2021 Ferritin [Mass/Vol] 302.0 ng/mL Normal 17.9-464.0 [facility] Comment on above: Performed By: #### C BC #### [facility] [address] [place] [address] Billy Devlin PROF 14(COMP METB)on 021 Albumin [Mass/Vol] 3.5 g/dL Normal 3.5-5.0 [facility] Comment on above: Performed By: #### C BC #### [facility] [address] [place], [place] [id number] Billy Quita Albumin/Globulin [Mass ratio] 1.0 {ratio} Normal [facility] Comment on above: Performed By: #### C BC #### [facility] [address] [place], [place] [id number] Billy Quita ALP [Catalytic activity/Vol] 71 U/L Normal 38-126 [facility] Comment on above: Performed By: #### C BC #### [facility] [address] [place] [address] Billy Quita ALT [Catalytic activity/Vol] 40 U/L Normal 21-72 [facility] Comment on above: Performed By: #### C BC #### [facility] [address] [place], [place] [id number] Billy Quita Anion gap [Moles/Vol] 17.5 mmol/L Normal [facility] Comment on above: Performed By: #### C BC #### [facility] [address] [place], [place] [id number] Billy Quita AST [Catalytic activity/Vol] 43 U/L Normal 17-59 [facility] Comment on above: Performed By: #### C BC #### [facility] [address] [place], [place] [id number] Billy Quita Bilirubin [Mass/Vol] 0.3 mg/dL Normal 0.2-1.3 [facility] Comment on above: Performed By: #### C BC #### [facility] [address] [place], [place] [id number] Billy Quita Calcium [Mass/Vol] 8.8 mg/dL Normal 8.4-10.2 [facility] Comment on above: Performed By: #### C BC #### [facility] [address] [place], [place] [address] Billy Quita Chloride [Moles/Vol] 101 mmol/L Normal 98-107 [facility] Comment on above: Performed By: #### C BC #### [facility] [address] [id number] Billy Quita CO2 [Moles/Vol] 26.6 mmol/L Normal 22.0-30.0 [facility] [place] [facility] Comment on above: Performed By: #### C BC #### [facility] [address] [place], [place] [id number] Billy Quita Creatinine [Mass/Vol] 0.88 mg/dL Normal 0.66-1.25 [facility] Comment on above: Performed By: #### C BC #### [facility] [address] [place], [place] [address] Billy Quita EGFR-AF ARGENTINE >60 Normal >=60 [facility] [place] [facility] Comment on above: Performed By: #### C BC #### [facility] [address] [place] [address] Billy Quita EGFR-NON AF ARGENTINE >60 Normal >=60 [facility] Comment on above: Performed By: #### C BC #### [facility] [address] [place], [place] [id number] Billy Quita Globulin (S) [Mass/Vol] 3.6 g/dL Normal [facility] Comment on above: Performed By: #### C BC #### [facility] [address] [place], [place] [address] Billy Quita Glucose [Mass/Vol] 101 mg/dL Normal 74-106 [facility] Comment on above: Performed By: #### C BC #### [facility] [address] [place], [place] [address] Billy Quita Potassium [Moles/Vol] 4.1 mmol/L Normal 3.4-5.0 [facility] Comment on above: Performed By: #### C BC #### [facility] [address] [place], [place] [address] Billy Qutia Protein [Mass/Vol] 7.1 g/dL Normal 6.1-8.2 [facility] Comment on above: Performed By: #### C BC #### [facility] [address] [place], [place] [address] Billy Quita Sodium [Moles/Vol] 141 mmol/L Normal 137-145 [facility] Comment on above: Performed By: #### C BC #### [facility] [address] [place], [place] [address] Billy Quita Urea nitrogen [Mass/Vol] 11.0 mg/dL Normal 9.0-20.0 [facility] Comment on above: Performed By: #### C BC #### [facility] [address] [place], [place] [address] Billy Quita Urea nitrogen/Creatinine [Mass ratio] 12.5 mg/mg Normal [facility] Comment on above: Performed By: #### C BC #### [facility] [address] [place], [place] [address] Billy Devlin IN BIOPSY LIVER PERCUTANEOUS NEEDLEon 05-08-2021 IN BIOPSY LIVER PERCUTANEOUS NEEDLE Patient Name: CHUY CHAPIN STUDY: IN BIOPSY LIVER PERCUTANEOUS NEEDLE; ; 05/08/2021 11:46 am INDICATION: None. COMPARISON: None. ACCESSION NUMBER(S): [id number] ORDERING CLINICIAN: ENOCH HERRMANN TECHNIQUE: CONSENT: The procedure, its indication, its risks, and alternatives were explained to the patient who understands and consents to the procedure. A time-out is completed prior to the procedure to confirm patient identity and procedure to be performed. MODALITIES: CT TECHNIQUE: Patient was placed supine in CT and a CT scan of the liver was performed. This was used to localize a subxiphoid midline approach to the left lower lobe for random liver biopsy. The site was then marked. All personnel in the procedure suite used appropriate mask and cap. Additionally, the performing physician and speech assistant used maximum barrier technique to include a sterile gown and gloves as per standard hospital protocol. The marked site was sterilely prepped with chlorhexidine in the usual manner. A large sterile barrier was used to to completely draped the patient is outside of the sterilely prepped area in the usual manner per standard hospital protocol. Local anesthetic was administered use. Using intermittent CT guidance, the 17 gauge outer cannula needle was advanced into the left lower lobe and a CT scan was performed to confirm satisfactory needle location. Subsequently, 2 passes were made using an 18 gauge spring-loaded Somewherece core biopsy needle. Good core samples were obtained and placed on saline moist and Telfa and directly into specimen bottle without fixation solution for analysis per standard protocol. The needle cannula was then removed. The patient tolerated the procedure well. There was no immediate complication. FINDINGS: See above IMPRESSION: Successful random core biopsy of the liver using CT guidance as detailed above Electronically signed by: URI BACON MD [facility] Order Reconciliationon 05-08 Order Reconciliation Page 1 Discharge Reconciliation Document Reconciliation Type: Discharge requested on behalf of Uri Bacon (Physician) done by Uri Bacon) Discharge - Reconciliation: 08-May-2021 11:59 by: Uri Bacon) Home Medications EnteredHOME MEDICATIONS AT DISCHARGE DateReconciliation Comment/ Additional Information carvedilol 6.25 mg oral tablet 1 tab(s) orally 2 times a day 08-May-2021 10:39 carvedilol 6.25 mg oral tablet 1 tab(s) orally 2 times a day 08-May-2021 10:39 carvedilol 6.25 mg oral tablet is continued as carvedilol 6.25 mg oral tablet lisinopril 2.5 mg oral tablet 1 tab(s) orally once a day 08-May-2021 10:55 lisinopril 2.5 mg oral tablet 1 tab(s) orally once a day 08-May-2021 10:55 lisinopril 2.5 mg oral tablet is continued as lisinopril 2.5 mg oral tablet mirtazapine 45 mg oral tablet, disintegrating 1 tab(s) orally once a day (at bedtime) 08-May-2021 10:40 mirtazapine 45 mg oral tablet, disintegrating 1 tab(s) orally once a day (at bedtime) 08-May-2021 10:40 mirtazapine 45 mg oral tablet, disintegrating is continued as mirtazapine 45 mg oral tablet, disintegrating RisperDAL 1 mg oral tablet 1 tab(s) orally 2 times a day 08-May-2021 10:40 RisperDAL 1 mg oral tablet 1 tab(s) orally 2 times a day 08-May-2021 10:40 RisperDAL 1 mg oral tablet is continued as RisperDAL 1 mg oral tablet Current OrdersDateHOME MEDICATIONS AT DISCHARGE DateReconciliation Comment/ Additional Information Acetaminophen Tablet (TYLENOL)DOSE = 650 mg Oral Once, PRN Pain. Please administer upon arrival to nursing [place] 08-May-2021 11:46 Acetaminophen is not required All Active Home Medications at time of Discharge Reconciliation: 08-May-2021 11:59 carvedilol 6.25 mg oral tablet 1 tab(s) orally 2 times a day lisinopril 2.5 mg oral tablet 1 tab(s) orally once a day mirtazapine 45 mg oral tablet, disintegrating 1 tab(s) orally once a day (at bedtime) RisperDAL 1 mg oral tablet 1 tab(s) orally 2 times a day Normal [facility] Surgical Pathology Depar tmenton 05-08-2021 [facility] Surgical Pathology Department Name CHUY CHAPIN Pathologist: SUSAN BLACK M.D., PhD. Date of Procedure: 05/08/2021 Date Received: 05/08/2021 Date Reported 05/11/2021 Submitting Physician: ENOCH HERRMANN MD Location: [facility] Copy To/Referring/Attending: URI BACON MD Other External # MD GENEVIEVE GOODEN MD FINAL DIAGNOSIS A. SUBMITTED LIVER , BIOPSY: -- BENIGN ADIPOSE TISSUE AND MUSCLE, SEE NOTE Note: Deeper sections were reviewed. Trichrome, reticulin, PAS, and iron special stains are noncontributory. The gross and/or microscopic findings were reviewed in conjunction with pathology resident, Luis Enrique Don DO. Electronically Signed Out By SUSAN BLACK M.D., PhD./WLI By the signature on this report, the individual or group listed as making the Final Interpretation/Diagnosis certifies that they have reviewed this case. Clinical History: Hemochromatosis, iron overload Specimens Submitted As: A: RANDOM LIVER BIOPSY Gross Description: Received in formalin, labeled with the patient's name and hospital number and random liver biopsy , are 2 cylindrical segments of yan-red soft tissue measuring 1.0 cm, and 1.2 cm in length by < 0.1 cm in diameter. The specimen is submitted in toto in one cassette. SBS 05/08/2021 The assays/tests were performed with appropriate positive and negative controls which stained appropriately. [facility] Pathology [address] [place] [address] Normal [facility] Comment on above: Performed By: #### U HCS #### [facility] Surgical Pathology Department [address] [facility] [address] CBC AUTO DIFFon 05-04-2021 BASO # 0.0 103/ul Normal 0.0-0.1 [facility] Comment on above: Performed By: #### F ERR #### [facility] [address] [place] [address] Dr. Krystle Heaton Basophils/100 WBC (Bld) 0.5 % Normal 0.2-2.0 [facility] Comment on above: Performed By: #### F ERR #### [facility] [address] [place] [address] Dr. Krystle Heaton EO # 0.1 103/ul Normal 0.0-0.7 [facility] Comment on above: Performed By: #### F ERR #### [facility] [address] [place] [address] Dr. Krystle Heaton Eosinophils/100 WBC (Bld) 2.5 % Normal 0.9-7.0 [facility] Comment on above: Performed By: #### F ERR #### [facility] [address] [place] [address] Dr. Krystle Heaton Erythrocyte distribution wid th (RBC) [Ratio] 12.5 % Normal 11.0-15.0 [facility] Comment on above: Performed By: #### F ERR #### [facility] [address] [place] [address] Dr. Krystle Heaton Hematocrit (Bld) [Volume fraction] 34.3 % Critically low 42.0-54.0 [facility] Comment on above: Performed By: #### F ERR #### [facility] [address] [place] [address] Dr. Krystle Heaton Hemoglobin (Bld) [Mass/Vol] 11.2 g/dL Critically low 14.0 -18.0 [facility] Comment on above: Performed By: #### F ERR #### [facility] [address] [place] [address] Dr. Krystle Heaton IG # 0.01 10e3/ul Normal 0.00-0.03 [facility] Comment on above: Performed By: #### F ERR #### [facility] [address] [place] [address] Dr. Krystle Heaton IG % 0.3 % Normal 0.0-0.5 [facility] Comment on above: Performed By: #### F ERR #### [facility] [address] [place] [address] Dr. Krystle Heaton LYMPH # 1.3 103/ul Normal 1.2-3.8 [facility] Comment on above: Performed By: #### F ERR #### [facility] [address] [place] [address] Dr. Krystle Heaton Lymphocytes/100 WBC (Bld) 33.3 % Normal 20.5-60.0 [facility] Comment on above: Performed By: #### F ERR #### [facility] [address] [place] [address] Dr. Krystle Heaton MANUAL DIFF REQ NO Normal [facility] Comment on above: Performed By: #### F ERR #### [facility] [address] [place] [address] Dr. Krystle Heaton MCH (RBC) [Entitic mass] 35.6 pg Critically high 25.9-3 4.0 [facility] Comment on above: Performed By: #### F ERR #### [facility] [address] [place] [address] Dr. Krystle Heaton MCHC (RBC) [Mass/Vol] 32.7 g/dL Normal 29.9-35.2 [facility] Comment on above: Performed By: #### F ERR #### [facility] [address] [place] [address] Dr. Krystle Heaton MCV (RBC) [Entitic vol] 108.9 fL Critically high 80.0-94 .0 [facility] Comment on above: Performed By: #### F ERR #### [facility] [address] [place] [address] Dr. Krystle Heaton MONO # 0.4 103/ul Normal 0.3-0.8 [facility] Comment on above: Performed By: #### F ERR #### [facility] [address] [place] [address] Dr. Krystle Heaton Monocytes/100 WBC (Bld) 10.0 % Normal 1.7-12.0 [facility] Comment on above: Performed By: #### F ERR #### [facility] [address] [place] [address] Dr. Krystle Heaton NEUT # 2.1 103/ul Normal 1.4-6.5 [facility] Comment on above: Performed By: #### F ERR #### [facility] [address] [place] [address] Dr. Krystle Heaton Neutrophils/100 WBC (Bld) 53.4 % Normal 43.0-75.0 [facility] Comment on above: Performed By: #### F ERR #### [facility] [address] [place] [address] Dr. Krystle Heaton Platelet mean volume (Bld) [ Entitic vol] 10.7 fL Normal 9.5-13.5 [facility] Comment on above: Performed By: #### F ERR #### [facility] [address] [place] [address] Dr. Krystle Heaton PLT 174 103/ul Normal 150-450 [facility]al Comment on above: Performed By: #### F ERR #### [facility] [address] [place] [address] Dr. Krystle Heaton RBC 3.15 106/ul Critically low 4.70-6.10 [facility] Comment on above: Result Comment: SLID E REVIEWED. 2+ MACROCYTOSIS SEEN Performed By: #### F ERR #### [facility] [address] [address] [address] Krystle Heaton WBC 4.0 103/ul Normal 4.0-11.0 [facility] Comment on above: Performed By: #### F ERR #### [facility] [address] [address] [address] Krystle Heaton FERRITINon 05-04-2021 Ferritin [Mass/Vol] 417.0 ng/mL Normal 17.9-464.0 [facility] Comment on above: Performed By: #### T 7, LIPA, TSH, AMADOU, CMP #### [facility] [address] [address] [address] Krystle Heaton AFP (TUMOR MARKER)on 021 AFP, Serum, Tumor Marker 5.2 ng/mL Normal 0.0-8.3 [facility] Comment on above: Result Comment: [employer] Electrochemiluminescence Immunoassay (ECLIA) . Values obtained with different assay methods or kits cannot be used interchangeably. Results cannot be interpreted as absolute evidence of the presence or absence of malignant disease. . This test is not interpretable in females. Performed By: #### T 7, LIPA, TSH, AMADOU, CMP #### [facility] [address] [place] [address] Dr. Krystle Heaton [id number] 2020 [id number], Serum 132 mg/dL Normal 101-187 [facility] Comment on above: Performed By: #### H BSANS #### [facility] [address] [place] [address] Billycarrillo Devlin NE by IFAon 05-02-2021 Antinuclear Antibodies, IFA Negative Normal [facility] Comment on above: Result Comment: Nega tive <1:80 Borderline 1:80 Positive >1:80 Performed By: #### A NAIFA #### [facility] [address] [place] [address] Billy Deanen CERULOPLASMINon 05-02-2021 Ceruloplasmin 27.8 mg/dL Normal 16.0-31.0 [facility] Comment on above: Performed By: #### C BC #### [facility] [address] [address] Billy Devlin HEP A AB TOTALon 05-02-2021 Hep A Ab, Total Negative Normal Negative [facility] Comment on above: Performed By: #### H BSANS #### [facility] [address] [place] [address] Billy Devlin HEP B COREon 05-02-2021 Hep B Core Ab, Tot Negative Normal Negative [facility] Comment on above: Performed By: #### T 7, LIPA, TSH, AMADOU, CMP #### [facility] [address] [place] [address] Dr. Krystle Heaton HEP B SURFACE ANTIGEN SCREEN on 05-02-2021 HBsAg Screen Negative Normal Negative [facility] Comment on above: Performed By: #### H BSANS #### [facility] [address] [place] [address] Billy Devlin HEPATITIS B SURFACE ANTIBODY , QUANTon 05-02-2021 Hepatitis B Surf AB Quant <3.1 Critically low Immuni ty>9.9 [facility] Comment on above: Result Comment: Stat us of Immunity Anti-HBs Level Inconsistent with Immunity 0.0 - 9.9 Consistent with Immunity >9.9 Performed By: #### H BSANS #### [facility] [address] [place] [address] Billy Devlin HEPATITIS C ANTIBODYon 05-02 Hep C Virus Ab <0.1 Normal 0.0-0.9 [facility] Comment on above: Result Comment: Nega tive: < 0.8 Indeterminate: 0.8 - 0.9 Positive: > 0.9 . The CDC recommends that a positive HCV antibody result be followed up with a HCV Nucleic Acid Amplification test (141022). Performed By: #### T 7, LIPA, TSH, AMADOU, CMP #### [facility] [address] [place] [address] Dr. Krystle Heaton MITICHONDRIAL (M2) ANTIBODYo n 05-02-2021 Mitochondrial (M2) Antibody <20.0 Normal 0.0-20.0 [facility] Comment on above: Result Comment: Nega tive 0.0 - 20.0 Equivocal 20.1 - 24.9 Positive >24.9 . Mitochondrial (M2) Antibodies are found in 90-96% of patients with primary biliary cirrhosis. Performed By: #### F ERR #### [facility] [address] [place] [address] Dr. Krystle Heaton CBC AUTO DIFFon 05-01-2021 BASO # 0.1 103/ul Normal 0.0-0.1 [facility] Comment on above: Performed By: #### C BC #### [facility] [address] [place] [address] Billy Quita Basophils/100 WBC (Bld) 1.5 % Normal 0.2-2.0 [facility] Comment on above: Performed By: #### C BC #### [facility] [address] [place] [address] Billy Quita EO # 0.1 103/ul Normal 0.0-0.7 [facility] Comment on above: Performed By: #### C BC #### [facility] [address] [place] [address] Billy Qutia Eosinophils/100 WBC (Bld) 2.1 % Normal 0.9-7.0 [facility] Comment on above: Performed By: #### C BC #### [facility] [address] [place], [place] [id number] Billy Quita Erythrocyte distribution wid th (RBC) [Ratio] 12.7 % Normal 11.0-15.0 [facility] Comment on above: Performed By: #### C BC #### [facility] [address] [place], [place] [id number] Billy Quita Hematocrit (Bld) [Volume fraction] 34.6 % Critically low 42.0-54.0 [facility] Comment on above: Performed By: #### C BC #### [facility] [address] [address] Billy Quita Hemoglobin (Bld) [Mass/Vol] 11.2 g/dL Critically low 14.0 -18.0 [facility] Comment on above: Performed By: #### C BC #### [facility] [address] [place] [address] Billy Quita IG # 0.01 10e3/ul Normal 0.00-0.03 [facility] Comment on above: Performed By: #### C BC #### [facility] [address] [place] [address] Billy Quita IG % 0.3 % Normal 0.0-0.5 [facility] Comment on above: Performed By: #### C BC #### [facility] [address] [place] [address] Billy Quita LYMPH # 1.0 103/ul Critically low 1.2-3.8 [facility] Comment on above: Performed By: #### C BC #### [facility] [address] [place] [address] Billycarrillo Devlin Lymphocytes/100 WBC (Bld) 30.4 % Normal 20.5-60.0 [facility] Comment on above: Performed By: #### C BC #### [facility] [address] [place] [address] Billy Devlin MANUAL DIFF REQ NO Normal [facility] Comment on above: Performed By: #### C BC #### [facility] [address] [place] [address] Billy Quita MCH (RBC) [Entitic mass] 35.8 pg Critically high 25.9-3 4.0 [facility] Comment on above: Performed By: #### C BC #### [facility] [address] [place], [place] [id number] Billy Quita MCHC (RBC) [Mass/Vol] 32.4 g/dL Normal 29.9-35.2 [facility] Comment on above: Performed By: #### C BC #### [facility] Laboratory [address] [place] [address] Billy Quita MCV (RBC) [Entitic vol] 110.5 fL Critically high 80.0-94 .0 [facility] Comment on above: Performed By: #### C BC #### [facility] [address] [place], [place] [id number] Billycarrillo Deanen MONO # 0.4 103/ul Normal 0.3-0.8 [facility] Comment on above: Performed By: #### C BC #### [facility] [address] [place], [place] [id number] Billy Quita Monocytes/100 WBC (Bld) 11.3 % Normal 1.7-12.0 [facility] Comment on above: Performed By: #### C BC #### [facility] [address] [place], [place] [id number] Billycarrillo Deanen NEUT # 1.8 103/ul Normal 1.4-6.5 The [facility] Comment on above: Performed By: #### C BC #### [facility] [address] [place], [place] [id number] Billycarrillo Deanen Neutrophils/100 WBC (Bld) 54.4 % Normal 43.0-75.0 [facility] Comment on above: Performed By: #### C BC #### [facility] [address] [place], [place] [id number] Billycarrillo Devlin Platelet mean volume (Bld) [ Entitic vol] 11.3 fL Normal 9.5-13.5 The [facility] Comment on above: Performed By: #### C BC #### [facility] [address] [place], [place] [id number] Billy Quita PLT 142 103/ul Critically low 150-450 The [facility] Comment on above: Performed By: #### C BC #### [facility] [address] [place], [place] [id number] Billy Quita RBC 3.13 106/ul Critically low 4.70-6.10 The [facility] Comment on above: Performed By: #### C BC #### [facility] [address] [place], [place] [id number] Billy Quita WBC 3.4 103/ul Critically low 4.0-11.0 [facility] Comment on above: Performed By: #### C BC #### [facility] [address] [id number] Billy Quita LIVER PROFILEon 05-01-2021 Albumin/Globulin [Mass ratio] 1.0 {ratio} Normal [facility] Comment on above: Performed By: #### H BSANS #### [facility] [address] [id number] Billy Quita ALP [Catalytic activity/Vol] 67 U/L Normal 38-126 [facility] Comment on above: Performed By: #### H BSANS #### [facility] [address] [address] Billy Quita ALT [Catalytic activity/Vol] 52 U/L Normal 21-72 [facility] Comment on above: Performed By: #### H BSANS #### [facility] [address] [place] [address] Billy Quita AST [Catalytic activity/Vol] 51 U/L Normal 17-59 [facility] Comment on above: Performed By: #### H BSANS #### [facility] [address] [place], [place] [id number] Billy Quita BILI, CONJUGATED 0.2 mg/dL Normal 0.0-0.3 [facility] Comment on above: Performed By: #### H BSANS #### [facility] [address] [place], [place] [id number] Billy Quita Bilirubin [Mass/Vol] 0.5 mg/dL Normal 0.2-1.3 [facility] Comment on above: Performed By: #### H BSANS #### [facility] [address] [id number] Billy Quita Globulin (S) [Mass/Vol] 3.4 g/dL Normal [facility] Comment on above: Performed By: #### H BSANS #### [facility] [address] [id number] Billy Quita Protein [Mass/Vol] 6.9 g/dL Normal 6.1-8.2 [facility] Comment on above: Performed By: #### H BSANS #### [facility] [address] [id number] Billy Quita PROTIMEon 05-01-2021 INR Coag (PPP) [Relative time] 0.95 {INR} Normal [facility] Comment on above: Performed By: #### C BC #### [facility] [address] [id number] Billy Quita INR GUIDELINES SEE BELOW Normal [facility] Comment on above: Result Comment: MOUNA RED INR: 2.0 - 3.0 CONDITIONS NOT LISTED BELOW 2.5 - 3.5 FOR PROSTHETIC HEART VALVE REPLACEMENT 2.5 - 3.5 RECURRENT THROMBOSIS Performed By: #### C BC #### [facility] [address] [address] Billy Quita PT Coag (PPP) [Time] 10.4 s Normal 9.0-11.6 [facility] Comment on above: Performed By: #### C BC #### [facility] [address] [place] [address] Billy Quita RENAL FUNCTION PANELon 05-01 Albumin [Mass/Vol] 3.5 g/dL Normal 3.5-5.0 [facility] Comment on above: Performed By: #### H BSANS #### [facility] [address] [place] [address] Billy Quita Calcium [Mass/Vol] 8.7 mg/dL Normal 8.4-10.2 [facility] Comment on above: Performed By: #### H BSANS #### [facility] [address] [place] [address] Billy Quita Chloride [Moles/Vol] 104 mmol/L Normal 98-107 [facility] Comment on above: Performed By: #### H BSANS #### [facility] [address] [place] [address] Billy Quita CO2 [Moles/Vol] 25.7 mmol/L Normal 22.0-30.0 [facility] Comment on above: Performed By: #### H BSANS #### [facility] [address] [address] Billy Quita Creatinine [Mass/Vol] 1.01 mg/dL Normal 0.66-1.25 [facility] Comment on above: Performed By: #### H BSANS #### [facility] [address] [place] [address] Billy Quita EGFR-AF ARGENTINE >60 Normal >=60 [facility] Comment on above: Performed By: #### H BSANS #### [facility] [address] [address] Billy Quita EGFR-NON AF ARGENTINE >60 Normal >=60 [facility] Comment on above: Performed By: #### H BSANS #### [facility] [address] [place] [address] Billy Quita Glucose [Mass/Vol] 103 mg/dL Normal 74-106 [facility] Comment on above: Performed By: #### H BSANS #### [facility] [address] [place] [address] Billy Quita Phosphate [Mass/Vol] 3.6 mg/dL Normal 2.5-4.5 [facility] Comment on above: Performed By: #### H BSANS #### [facility] [address] [place] [address] Billy Quita Potassium [Moles/Vol] 4.2 mmol/L Normal 3.4-5.0 [facility] Comment on above: Performed By: #### H BSANS #### [facility] [address] [place] [address] Billy Quita Sodium [Moles/Vol] 138 mmol/L Normal 137-145 [facility] Comment on above: Performed By: #### H BSANS #### [facility] [address] [place] [address] Billy Quita Urea nitrogen [Mass/Vol] 7.0 mg/dL Critically low 9.0-20. 0 [facility] Comment on above: Performed By: #### H BSANS #### [facility] [address] [place] [address] Billy Quita CBC AUTO DIFFon 04-27-2021 BASO # 0.0 103/ul Normal 0.0-0.1 [facility] Comment on above: Performed By: #### T 7, LIPA, TSH, AMADOU, CMP #### [facility] [address] [place] [address] Dr. Krystle Heaton Basophils/100 WBC (Bld) 0.9 % Normal 0.2-2.0 [facility] Comment on above: Performed By: #### T 7, LIPA, TSH, AMADOU, CMP #### [facility] [address] [place] [address] Dr. Krystle Heaton EO # 0.1 103/ul Normal 0.0-0.7 [facility] Comment on above: Performed By: #### T 7, LIPA, TSH, AMADOU, CMP #### [facility] [address] [place] [address] Dr. Krystle Heaton Eosinophils/100 WBC (Bld) 2.6 % Normal 0.9-7.0 [facility] Comment on above: Performed By: #### T 7, LIPA, TSH, AMADOU, CMP #### [facility] [address] [place] [address] Dr. Krystle Heaton Erythrocyte distribution wid th (RBC) [Ratio] 12.4 % Normal 11.0-15.0 The [facility] p[facility] Comment on above: Performed By: #### T 7, LIPA, TSH, AMADOU, CMP #### [facility] [address] [place] [address] Dr. Krystle Heaton Hematocrit (Bld) [Volume fraction] 36.8 % Critically low 42.0-54.0 The [facility] Comment on above: Performed By: #### T 7, LIPA, TSH, AMADOU, CMP #### [facility] [address] [place] [address] Dr. Krystle Heaton Hemoglobin (Bld) [Mass/Vol] 12.0 g/dL Critically low 14.0 -18.0 [facility] Comment on above: Performed By: #### T 7, LIPA, TSH, AMADOU, CMP #### [facility] [address] [place] [address] Dr. Krystle Heaton IG # 0.02 10e3/ul Normal 0.00-0.03 [facility] Comment on above: Performed By: #### T 7, LIPA, TSH, AMADOU, CMP #### [facility] [address] [place] [address] Dr. Krystle Heaton IG % 0.4 % Normal 0.0-0.5 [facility] Comment on above: Performed By: #### T 7, LIPA, TSH, AMADOU, CMP #### [facility] [address] [place] [address] Dr. Krystle Heaton LYMPH # 1.2 103/ul Normal 1.2-3.8 [facility] Comment on above: Performed By: #### T 7, LIPA, TSH, AMADOU, CMP #### [facility] [address] [place] [address] Dr. Krystle Heaton Lymphocytes/100 WBC (Bld) 26.0 % Normal 20.5-60.0 [facility] Comment on above: Performed By: #### T 7, LIPA, TSH, AMADOU, CMP #### [facility] [address] [place] [address] Dr. Krystle Heaton MANUAL DIFF REQ NO Normal [facility] Comment on above: Performed By: #### T 7, LIPA, TSH, AMADOU, CMP #### [facility] [address] [place] [address] Dr. Krystle Heaton MCH (RBC) [Entitic mass] 36.4 pg Critically high 25.9-3 4.0 [facility] Comment on above: Performed By: #### T 7, LIPA, TSH, AMADOU, CMP #### [facility] [address] [place] [address] Dr. Krystle Heaton MCHC (RBC) [Mass/Vol] 32.6 g/dL Normal 29.9-35.2 [facility] Comment on above: Performed By: #### T 7, LIPA, TSH, AMADOU, CMP #### [facility] [address] [address] [address] Krystle Heaton MCV (RBC) [Entitic vol] 111.5 fL Critically high 80.0-94 .0 [facility] Comment on above: Performed By: #### T 7, LIPA, TSH, AMADOU, CMP #### [facility] [address] [place] [address] Dr. Krystle Heaton MONO # 0.5 103/ul Normal 0.3-0.8 [facility] Comment on above: Performed By: #### T 7, LIPA, TSH, AMADOU, CMP #### [facility] [address] [place] [address] Dr. Krystle Heaton Monocytes/100 WBC (Bld) 10.1 % Normal 1.7-12.0 [facility] Comment on above: Performed By: #### T 7, LIPA, TSH, AMADOU, CMP #### [facility] [address] [place] [address] Dr. Krystle Heaton NEUT # 2.8 103/ul Normal 1.4-6.5 The [facility] Comment on above: Performed By: #### T 7, LIPA, TSH, AMADOU, CMP #### [facility] [address] [place] [address] Dr. Krystle Heaton Neutrophils/100 WBC (Bld) 60.0 % Normal 43.0-75.0 [facility] Comment on above: Performed By: #### T 7, LIPA, TSH, AMADOU, CMP #### [facility] [address] [place] [address] Dr. Krystle Heaton Platelet mean volume (Bld) [ Entitic vol] 11.0 fL Normal 9.5-13.5 The [facility] p[facility] Comment on above: Performed By: #### T 7, LIPA, TSH, AMADOU, CMP #### [facility] [address] [place] [address] Dr. Krystle Heaton PLT 140 103/ul Critically low 150-450 [facility] Comment on above: Performed By: #### T 7, LIPA, TSH, AMADOU, CMP #### [facility] [address] [place] [address] Dr. Krystle Heaton RBC 3.30 106/ul Critically low 4.70-6.10 [facility] Comment on above: Performed By: #### T 7, LIPA, TSH, AMADOU, CMP #### [facility] [address] [place] [address] Dr. Krystle Heaton WBC 4.7 103/ul Normal 4.0-11.0 [facility] Comment on above: Performed By: #### T 7, LIPA, TSH, AMADOU, CMP #### [facility] [address] [place] [address] Dr. Krystle Heaton FERRITINon 04-27-2021 Ferritin [Mass/Vol] 845.0 ng/mL Critically high 17.9-464.0 [facility] Comment on above: Performed By: #### F ERR #### [facility] [address] [place] [address] Dr. Krystle Heaton CBC AUTO DIFFon 04-18-2021 BASO # 0.1 103/ul Normal 0.0-0.1 [facility] Comment on above: Performed By: #### T 7, LIPA, TSH, AMADOU, CMP #### [facility] [address] [place] [address] Dr. Krystle Heaton Basophils/100 WBC (Bld) 1.1 % Normal 0.2-2.0 [facility] Comment on above: Performed By: #### T 7, LIPA, TSH, AMADOU, CMP #### [facility] [address] [place] [address] Dr. Krystle Heaton EO # 0.1 103/ul Normal 0.0-0.7 [facility] Comment on above: Performed By: #### T 7, LIPA, TSH, AMADOU, CMP #### [facility] [address] [place] [address] Dr. Krystle Heaton Eosinophils/100 WBC (Bld) 2.2 % Normal 0.9-7.0 [facility] Comment on above: Performed By: #### T 7, LIPA, TSH, AMADOU, CMP #### [facility] [address] [place] [address] Dr. Krystle Heaton Erythrocyte distribution wid th (RBC) [Ratio] 13.1 % Normal 11.0-15.0 The [facility] Comment on above: Performed By: #### T 7, LIPA, TSH, AMADOU, CMP #### [facility] [address] [place] [address] Dr. Krystle Heaton Hematocrit (Bld) [Volume fraction] 35.2 % Critically low 42.0-54.0 The [facility] Comment on above: Performed By: #### T 7, LIPA, TSH, AMADOU, CMP #### [facility] [address] [place] [address] Dr. Krystle Heaton Hemoglobin (Bld) [Mass/Vol] 11.8 g/dL Critically low 14.0 -18.0 [facility] Comment on above: Performed By: #### T 7, LIPA, TSH, AMADOU, CMP #### [facility] [address] [place] [address] Dr. Krystle Heaton IG # 0.01 10e3/ul Normal 0.00-0.03 [facility] Comment on above: Performed By: #### T 7, LIPA, TSH, AMADOU, CMP #### [facility] [address] [place] [address] Dr. Krystle Heaton IG % 0.2 % Normal 0.0-0.5 [facility] Comment on above: Performed By: #### T 7, LIPA, TSH, AMADOU, CMP #### [facility] [address] [place] [address] Dr. Krystle Heaton LYMPH # 1.6 103/ul Normal 1.2-3.8 [facility] Comment on above: Performed By: #### T 7, LIPA, TSH, AMADOU, CMP #### [facility] [address] [place] [address] Dr. Krystle Heaton Lymphocytes/100 WBC (Bld) 35.1 % Normal 20.5-60.0 [facility] Comment on above: Performed By: #### T 7, LIPA, TSH, AMADOU, CMP #### [facility] [address] [place] [address] Dr. Krystle Heaton MANUAL DIFF REQ NO Normal [facility] Comment on above: Performed By: #### T 7, LIPA, TSH, AMADOU, CMP #### [facility] [address] [place] [address] Dr. Krystle Heaton MCH (RBC) [Entitic mass] 36.6 pg Critically high 25.9-3 4.0 [facility] Comment on above: Performed By: #### T 7, LIPA, TSH, AMADOU, CMP #### [facility] [address] [place] [address] Dr. Krystle Heaton MCHC (RBC) [Mass/Vol] 33.5 g/dL Normal 29.9-35.2 [facility] Comment on above: Performed By: #### T 7, LIPA, TSH, AMADOU, CMP #### [facility] [address] [place] [address] Dr. Krystle Heaton MCV (RBC) [Entitic vol] 109.3 fL Critically high 80.0-94 .0 [facility] Comment on above: Performed By: #### T 7, LIPA, TSH, AMADOU, CMP #### [facility] [address] [place] [address] Dr. Krystle Heaton MONO # 0.5 103/ul Normal 0.3-0.8 [facility] Comment on above: Performed By: #### T 7, LIPA, TSH, AMADOU, CMP #### [facility] [address] [place] [address] Dr. Krystle Heaton Monocytes/100 WBC (Bld) 11.0 % Normal 1.7-12.0 [facility] Comment on above: Performed By: #### T 7, LIPA, TSH, AMADOU, CMP #### [facility] [address] [place] [address] Dr. Krystle Heaton NEUT # 2.2 103/ul Normal 1.4-6.5 [facility] Comment on above: Performed By: #### T 7, LIPA, TSH, AMADOU, CMP #### [facility] [address] [place] [address] Dr. Krystle Heaton Neutrophils/100 WBC (Bld) 50.4 % Normal 43.0-75.0 [facility] Comment on above: Performed By: #### T 7, LIPA, TSH, AMADOU, CMP #### [facility] [address] [place] [address] Dr. Krystle Heaton Platelet mean volume (Bld) [ Entitic vol] 10.9 fL Normal 9.5-13.5 [facility] p[facility] Comment on above: Performed By: #### T 7, LIPA, TSH, AMADOU, CMP #### [facility] [address] [place] [address] Dr. Krystle Heaton PLT 158 103/ul Normal 150-450 [facility] Comment on above: Performed By: #### T 7, LIPA, TSH, AMADOU, CMP #### [facility] [address] [place] [address] Dr. Krystle Heaton RBC 3.22 106/ul Critically low 4.70-6.10 [facility] Comment on above: Performed By: #### T 7, LIPA, TSH, AMADOU, CMP #### [facility] [address] [place] [address] Dr. Krystle Heaton WBC 4.5 103/ul Normal 4.0-11.0 [facility] Comment on above: Performed By: #### T 7, LIPA, TSH, AMADOU, CMP #### [facility] [address] [place] [address] Dr. Krystle Heaton FERRITINon 04-18-2021 Ferritin [Mass/Vol] ng/mL Critically high 17.9-464.0 [facility] Comment on above: Performed By: #### H BSANS #### [facility] [address] [place] [address] Billy Devlin CBC AUTO DIFFon 04-13-2021 BASO # 0.0 103/ul Normal 0.0-0.1 [facility] Comment on above: Performed By: #### T 7, LIPA, TSH, AMADOU, CMP #### [facility] [address] [place] [address] Dr. Krystle Heaton Basophils/100 WBC (Bld) 0.6 % Normal 0.2-2.0 [facility] Comment on above: Performed By: #### T 7, LIPA, TSH, AMADOU, CMP #### [facility] [address] [place] [address] Dr. Krystle Heaton EO # 0.1 103/ul Normal 0.0-0.7 [facility] Comment on above: Performed By: #### T 7, LIPA, TSH, AMADOU, CMP #### [facility] [address] [place] [address] Dr. Krystle Heaton Eosinophils/100 WBC (Bld) 3.2 % Normal 0.9-7.0 [facility] Comment on above: Performed By: #### T 7, LIPA, TSH, AMADOU, CMP #### [facility] [address] [place] [address] Dr. Krystle Heaton Erythrocyte distribution wid th (RBC) [Ratio] 13.6 % Normal 11.0-15.0 [facility] Comment on above: Performed By: #### T 7, LIPA, TSH, AMADOU, CMP #### [facility] [address] [place] [address] Dr. Krystle Heaton Hematocrit (Bld) [Volume fraction] 35.3 % Critically low 42.0-54.0 [facility] Comment on above: Performed By: #### T 7, LIPA, TSH, AMADOU, CMP #### [facility] [address] [place] [address] Dr. Krystle Heaton Hemoglobin (Bld) [Mass/Vol] 11.9 g/dL Critically low 14.0 -18.0 [facility] Comment on above: Performed By: #### T 7, LIPA, TSH, AMADOU, CMP #### [facility] [address] [place] [address] Dr. Krystle Heaton IG # 0.01 10e3/ul Normal 0.00-0.03 [facility] Comment on above: Performed By: #### T 7, LIPA, TSH, AMADOU, CMP #### [facility] [address] [place] [address] Dr. Krystle Heaton IG % 0.3 % Normal 0.0-0.5 [facility] Comment on above: Performed By: #### T 7, LIPA, TSH, AMADOU, CMP #### [facility] [address] [place] [address] Dr. Krystle Heaton LYMPH # 1.1 103/ul Critically low 1.2-3.8 [facility] Comment on above: Performed By: #### T 7, LIPA, TSH, AMADOU, CMP #### [facility] [address] [place] [address] Dr. Krystle Heaton Lymphocytes/100 WBC (Bld) 35.1 % Normal 20.5-60.0 [facility] Comment on above: Performed By: #### T 7, LIPA, TSH, AMADOU, CMP #### [facility] [address] [place] [address] Dr. Krystle Heaton MANUAL DIFF REQ NO Normal [facility] Comment on above: Performed By: #### T 7, LIPA, TSH, AMADOU, CMP #### [facility] [address] [place] [address] Dr. Krystle Heaton MCH (RBC) [Entitic mass] 37.1 pg Critically high 25.9-3 4.0 [facility] Comment on above: Performed By: #### T 7, LIPA, TSH, AMADOU, CMP #### [facility] [address] [place] [address] Dr. Krystle Heaton MCHC (RBC) [Mass/Vol] 33.7 g/dL Normal 29.9-35.2 [facility] Comment on above: Performed By: #### T 7, LIPA, TSH, AMADOU, CMP #### [facility] [address] [place] [address] Dr. Krystle Heaton MCV (RBC) [Entitic vol] 110.0 fL Critically high 80.0-94 .0 [facility] Comment on above: Result Comment: macr ocytosis 3+ Performed By: #### T 7, LIPA, TSH, AMADOU, CMP #### [facility] [address] [place] [address] Dr. Krystle Heaton MONO # 0.3 103/ul Normal 0.3-0.8 [facility] Comment on above: Performed By: #### T 7, LIPA, TSH, AMADOU, CMP #### [facility] [address] [place] [address] Dr. Krystle Heaton Monocytes/100 WBC (Bld) 10.7 % Normal 1.7-12.0 [facility] Comment on above: Performed By: #### T 7, LIPA, TSH, AMADOU, CMP #### [facility] [address] [place] [address] Dr. Krystle Heaton NEUT # 1.5 103/ul Normal 1.4-6.5 [facility] Comment on above: Performed By: #### T 7, LIPA, TSH, AMADOU, CMP #### [facility] [address] [place] [address] Dr. Krystle Heaton Neutrophils/100 WBC (Bld) 50.1 % Normal 43.0-75.0 [facility] Comment on above: Performed By: #### T 7, LIPA, TSH, AMADOU, CMP #### [facility] [address] [place] [address] Dr. Krystle Heaton Platelet mean volume (Bld) [ Entitic vol] 10.8 fL Normal 9.5-13.5 [facility] Comment on above: Performed By: #### T 7, LIPA, TSH, AMADOU, CMP #### [facility] [address] [place] [address] Dr. Krystle Heaton PLT 131 103/ul Critically low 150-450 [facility] Comment on above: Performed By: #### T 7, LIPA, TSH, AMADOU, CMP #### [facility] [address] [place] [address] Dr. Krystle Heaton RBC 3.21 106/ul Critically low 4.70-6.10 [facility] Comment on above: Performed By: #### T 7, LIPA, TSH, AMDAOU, CMP #### [facility] [address] [address] [address] Krystle Heaton WBC 3.1 103/ul Critically low 4.0-11.0 [facility] Comment on above: Performed By: #### T 7, LIPA, TSH, AMADOU, CMP #### [facility] [address] [id number] Dr. Krystle Heaton FERRITINon 04-13-2021 Ferritin [Mass/Vol] ng/mL Critically high 17.9-464.0 [facility] Comment on above: Performed By: #### F ERR #### [facility] [address] [address] [address] 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 Also, a high ferritin does to some extent predicts advanced fibrosis which would be important to diagnose we will complete a work up for causes of liver disease we will perform a liver biopsy to assess for fibrosis and iron overload he will return in 6 week 45 minutes spent discussing condition, explaining results of tests and formulating plan of care Chief Complaint A telephone visit (audio only) between the patient (at the originating site) and the provider (at the distant site) was utilized to provide this telehealth service. 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 He is also noted to have elevated ALT. ferritin has not improved some per his referring physician and remains over 1000. it is clear that he has a history of heavy alcohol use though this has been reduced more recently (unclear to what extent). He denies cognitive impairment or fluid overload. Upper Gastrointestinal: no abdominal pain, no eructation, no difficulty swallowing, no early satiety, no heartburn, no jaundiced, no nausea, no pain while swallowing, no regurgitation, no vomiting. Lower Gastrointestinal: no abdominal swelling, no bloating, no constipation, no diarrhea, no fecal incontinence, no bowel urgency, no steatorrhea. Liver Disease no alteration in sleep wake cycle, no ankle swelling, no cognitive impairment, no confusion, no icterus, no increase in abdominal girth, no jaundice, no lower extremity edema. Symptom History: Modifying Factors: Associated Symptoms: Review of Systems Constitutional: feeling tired, but no fever, no chills and no recent weight loss. ENT: no lymphadenopathy. Cardiovascular: no shortness of breath and no chest pain. Respiratory: no cough. Gastrointestinal: as noted in HPI. Musculoskeletal: no joint swelling. Integumentary: no rashes, no skin lesions and was no jaundiced. All other systems have been reviewed and are negative for complaint. Past Medical History Problems Hemochromatosis, unspecified (275.03) (E83.119) Iron overload (275.09) (E83.19) Surgical History Problems History of Rotator cuff repair Social History Problems Drinks beer (V49.89) (Z78.9) Former smoker (V15.82) (Z87.891) Has 4 children No illicit drug use Occasional alcohol use Allergies Medication No Known Drug Allergies Recorded By: Darcy Kramer; 04/10/2021 9:14:05 AM Current Meds Medication NameInstruction Carvedilol 6.25 MG Oral Tablet Mirtazapine 45 MG Oral Tablet RisperDAL 1 MG Oral Tablet (RisperiDONE) Signatures Electronically signed by : Enoch Herrmann MD; Apr 13 2021 1:09PM EST (Author) Normal [employer] CBC AUTO DIFFon 04-06-2021 BASO # 0.0 103/ul Normal 0.0-0.1 [facility] Comment on above: Performed By: #### H BSANS #### [facility] [address] [address] Billy Devlin Basophils/100 WBC (Bld) 0.9 % Normal 0.2-2.0 [facility] Comment on above: Performed By: #### H ALEXANDER #### [facility] [address] [place] [address] Billycarrillo Devlin EO # 0.1 103/ul Normal 0.0-0.7 [facility] Comment on above: Performed By: #### H ALEXANDER #### [facility] [address] [place] [address] Billycarrillo Devlin Eosinophils/100 WBC (Bld) 3.0 % Normal 0.9-7.0 [facility] Comment on above: Performed By: #### H ALEXANDER #### [facility] [address] [place] [address] Billy Devlin Erythrocyte distribution wid th (RBC) [Ratio] 13.6 % Normal 11.0-15.0 [facility] pital Comment on above: Performed By: #### H ALEXANDER #### [facility] [address] [place] [address] Billy Quita Hematocrit (Bld) [Volume fraction] 39.1 % Critically low 42.0-54.0 [facility] Comment on above: Performed By: #### H ALEXANDER #### [facility] [address] [place] [address] Billy Devlin Hemoglobin (Bld) [Mass/Vol] 13.1 g/dL Critically low 14.0 -18.0 [facility] Comment on above: Performed By: #### H ALEXANDER #### [facility] [address] [place] [address] Billycarrillo Devlin IG # 0.02 10e3/ul Normal 0.00-0.03 [facility] Comment on above: Performed By: #### H ALEXANDER #### [facility] [address] [place] [address] Billycarrillo Devlin IG % 0.5 % Normal 0.0-0.5 [facility] Comment on above: Performed By: #### H ALEXANDER #### [facility] [address] [place] [address] Billy Quita LYMPH # 1.1 103/ul Critically low 1.2-3.8 [facility] Comment on above: Performed By: #### H ALEXANDER #### [facility] [address] [place], [place] [id number] Billy Devlin Lymphocytes/100 WBC (Bld) 26.7 % Normal 20.5-60.0 [facility] Comment on above: Performed By: #### H ALEXANDER #### [facility] [address] [place] [address] Billy Devlin MANUAL DIFF REQ NO Normal [facility] Comment on above: Performed By: #### H ALEXANDER #### [facility] [address] [place] [address] Billycarrillo Devlin MCH (RBC) [Entitic mass] 36.7 pg Critically high 25.9-3 4.0 [facility] Comment on above: Performed By: #### H ALEXANDER #### [facility] [address] [place] [address] Billycarrillo Devlin MCHC (RBC) [Mass/Vol] 33.5 g/dL Normal 29.9-35.2 [facility] Comment on above: Result Comment: macr ocytosis Performed By: #### H ALEXANDER #### [facility] [address] [place] [address] Billy Devlin MCV (RBC) [Entitic vol] 109.5 fL Critically high 80.0-94 .0 [facility] Comment on above: Performed By: #### H ALEXANDER #### [facility] [address] [place] [address] Billycarrillo Deanen MONO # 0.4 103/ul Normal 0.3-0.8 [facility] Comment on above: Performed By: #### H ALEXANDER #### [facility] [address] [place] [address] Billy Devlin Monocytes/100 WBC (Bld) 8.7 % Normal 1.7-12.0 [facility] Comment on above: Performed By: #### H ALEXANDER #### [facility] [address] [place], [place] [id number] Billy Deanen NEUT # 2.6 103/ul Normal 1.4-6.5 [facility] Comment on above: Performed By: #### H ALEXANDER #### [facility] [address] [id number] Billy Devlin Neutrophils/100 WBC (Bld) 60.2 % Normal 43.0-75.0 [facility] Comment on above: Performed By: #### H ALEXANDER #### [facility] [address] [address] Billy Devlin Platelet mean volume (Bld) [ Entitic vol] 11.1 fL Normal 9.5-13.5 [facility] Comment on above: Performed By: #### H ALEXANDER #### [facility] [address] [place], [place] [id number] Billy Quita PLT 162 103/ul Normal 150-450 [facility] ostal Comment on above: Performed By: #### H ALEXANDER #### [facility] [address] [place] [address] Billy Quita RBC 3.57 106/ul Critically low 4.70-6.10 [facility] Comment on above: Performed By: #### H ALEXANDER #### [facility] [address] [place] [address] Billycarrillo Devlin WBC 4.3 103/ul Normal 4.0-11.0 [facility] Comment on above: Performed By: #### H ALEXANDER #### [facility] [address] [place], [place] [id number] Billy Deanen FERRITINon 04-06-2021 Ferritin [Mass/Vol] ng/mL Critically high 17.9-464.0 [facility] Comment on above: Performed By: #### T 7, LIPA, TSH, AMADOU, CMP #### [facility] [address] [place], [place] [id number] Dr. Krystle Heaton FREE T4on 04-06-2021 Free T4 [Mass/Vol] 0.73 ng/dL Critically low 0.78-2.19 [facility] Comment on above: Performed By: #### T 7, LIPA, TSH, AMADOU, CMP #### [facility] [address] [address] [address] Krystle Heaton IRON AND TIBCon 04-06-2021 % SATURATION 54.8 % Normal [facility] Comment on above: Performed By: #### T 7, LIPA, TSH, AMADOU, CMP #### [facility] [address] [address] [address] Krystle Heaton Iron [Mass/Vol] 161.0 ug/dL Normal 49.0-181.0 [facility] Comment on above: Performed By: #### T 7, LIPA, TSH, AMADOU, CMP #### [facility] [address] [place] [address] Dr. Krystle Heaton TIBC DIRECT 294.0 ug/dL Normal 261.0-497.0 [facility] Comment on above: Performed By: #### T 7, LIPA, TSH, AMADOU, CMP #### [facility] [address] [place] [address] Dr. Krystle Heaton PROF 14(COMP METB)on 021 Albumin [Mass/Vol] 3.7 g/dL Normal 3.5-5.0 [facility] Comment on above: Performed By: #### T 7, LIPA, TSH, AMADOU, CMP #### [facility] [address] [place] [address] Dr. Krystle Heaton Albumin/Globulin [Mass ratio] 1.0 {ratio} Normal [facility] Comment on above: Performed By: #### T 7, LIPA, TSH, AMADOU, CMP #### [facility] [address] [place] [address] Dr. Krystle Heaton ALP [Catalytic activity/Vol] 83 U/L Normal 38-126 [facility] Comment on above: Performed By: #### T 7, LIPA, TSH, AMADOU, CMP #### [facility] [address] [place] [address] Dr. Krystle Heaton ALT [Catalytic activity/Vol] 140 U/L Critically high 21 -72 [facility] Comment on above: Performed By: #### T 7, LIPA, TSH, AMADOU, CMP #### [facility] [address] [address] [address] Krystle Heaton Anion gap [Moles/Vol] 15.8 mmol/L Normal [facility] Comment on above: Performed By: #### T 7, LIPA, TSH, AMADOU, CMP #### [facility] [address] [place] [address] Dr. Krystle Heaton AST [Catalytic activity/Vol] 186 U/L Critically high 17 -59 [facility] Comment on above: Performed By: #### T 7, LIPA, TSH, AMADOU, CMP #### [facility] [address] [place] [address] Dr. Krystle Heaton Bilirubin [Mass/Vol] 0.5 mg/dL Normal 0.2-1.3 [facility] Comment on above: Performed By: #### T 7, LIPA, TSH, AMADOU, CMP #### [facility] [address] [place] [address] Dr. Krystle Heaton Calcium [Mass/Vol] 9.0 mg/dL Normal 8.4-10.2 [facility] Comment on above: Performed By: #### T 7, LIPA, TSH, AMADOU, CMP #### [facility] [address] [place] [address] Dr. Krystle Heaton Chloride [Moles/Vol] 101 mmol/L Normal 98-107 [facility] Comment on above: Performed By: #### T 7, LIPA, TSH, AMADOU, CMP #### [facility] [address] [place] [address] Dr. Krystle Heaton CO2 [Moles/Vol] 25.8 mmol/L Normal 22.0-30.0 [facility] Comment on above: Performed By: #### T 7, LIPA, TSH, AMADOU, CMP #### [facility] [address] [place] [address] Dr. Krystle Heaton Creatinine [Mass/Vol] 1.07 mg/dL Normal 0.66-1.25 [facility] Comment on above: Performed By: #### T 7, LIPA, TSH, AMADOU, CMP #### [facility] [address] [address] [address] Krystle Heaton EGFR-AF ARGENTINE >60 Normal >=60 [facility] Comment on above: Performed By: #### T 7, LIPA, TSH, AMADOU, CMP #### [facility] [address] [address] [address] Krystle Heaton EGFR-NON AF ARGENTINE >60 Normal >=60 [facility] Comment on above: Performed By: #### T 7, LIPA, TSH, AMADOU, CMP #### [facility] [address] [place] [address] Dr. Krystle Heaton Globulin (S) [Mass/Vol] 3.7 g/dL Normal [facility] Comment on above: Performed By: #### T 7, LIPA, TSH, AMADOU, CMP #### [facility] [address] [place] [address] Dr. Krystle Heaton Glucose [Mass/Vol] 104 mg/dL Normal 74-106 [facility] Comment on above: Performed By: #### T 7, LIPA, TSH, AMADOU, CMP #### [facility] [address] [place] [address] Dr. Krystle Heaton Potassium [Moles/Vol] 4.6 mmol/L Normal 3.4-5.0 [facility] Comment on above: Performed By: #### T 7, LIPA, TSH, AMADOU, CMP #### [facility] [address] [place] [address] Dr. Krystle Heaton Protein [Mass/Vol] 7.4 g/dL Normal 6.1-8.2 [facility] Comment on above: Performed By: #### T 7, LIPA, TSH, AMADOU, CMP #### [facility] [address] [place] [address] Dr. Krystle Heaton Sodium [Moles/Vol] 138 mmol/L Normal 137-145 [facility] Comment on above: Performed By: #### T 7, LIPA, TSH, AMADOU, CMP #### [facility] [address] [place] [address] Dr. Krystle Heaton Urea nitrogen [Mass/Vol] 10.0 mg/dL Normal 9.0-20.0 [facility] Comment on above: Performed By: #### T 7, LIPA, TSH, AMADOU, CMP #### [facility] [address] [place] [address] Dr. Krystle Heaton Urea nitrogen/Creatinine [Mass ratio] 9.3 mg/mg Normal [facility] Comment on above: Performed By: #### T 7, LIPA, TSH, AMADOU, CMP #### [facility] [address] [place] [address] Dr. Krystle Heaton TSHon 04-06-2021 TSH 1.945 uIU/mL Normal 0.470-4.680 [facility] Comment on above: Performed By: #### T 7, LIPA, TSH, AMADOU, CMP #### [facility] [address] [place] [address] Dr. Krystle Heaton TSH RANGE SEE BELOW Normal [facility] Comment on above: Result Comment: <0.3 4 UIU/ml HYPERTHYROID 0.34-5.60 UIU/ml EUTHYROID >5.60 UIU/ml HYPOTHYROID Performed By: #### T 7, LIPA, TSH, AMADOU, CMP #### [facility] [address] [place] [address] Dr. Krystle Heaton CBC AUTO DIFFon 03-30-2021 BASO # 0.0 103/ul Normal 0.0-0.1 [facility] Comment on above: Performed By: #### T 7, LIPA, TSH, AMADOU, CMP #### [facility] [address] [place] [address] Dr. Krystle Heaton Basophils/100 WBC (Bld) 0.8 % Normal 0.2-2.0 [facility] Comment on above: Performed By: #### T 7, LIPA, TSH, AMADOU, CMP #### [facility] [address] [place] [address] Dr. Krystle Heaton EO # 0.1 103/ul Normal 0.0-0.7 [facility] Comment on above: Performed By: #### T 7, LIPA, TSH, AMADOU, CMP #### [facility] [address] [place] [address] Dr. Krystle Heaton Eosinophils/100 WBC (Bld) 3.0 % Normal 0.9-7.0 [facility] Comment on above: Performed By: #### T 7, LIPA, TSH, AMADOU, CMP #### [facility] [address] [place] [address] Dr. Krystle Heaton Erythrocyte distribution wid th (RBC) [Ratio] 13.9 % Normal 11.0-15.0 [facility] Comment on above: Performed By: #### T 7, LIPA, TSH, AMADOU, CMP #### [facility] [address] [place] [address] Dr. Krystle Heaton Hematocrit (Bld) [Volume fraction] 40.4 % Critically low 42.0-54.0 [facility] Comment on above: Performed By: #### T 7, LIPA, TSH, AMADOU, CMP #### [facility] [address] [place] [address] Dr. Krystle Heaton Hemoglobin (Bld) [Mass/Vol] 13.5 g/dL Critically low 14.0 -18.0 [facility] Comment on above: Performed By: #### T 7, LIPA, TSH, AMADOU, CMP #### [facility] [address] [place] [address] Dr. Krystle Heaton IG # 0.01 10e3/ul Normal 0.00-0.03 [facility] Comment on above: Performed By: #### T 7, LIPA, TSH, AMADOU, CMP #### [facility] [address] [place] [address] Dr. Krystle Heaton IG % 0.3 % Normal 0.0-0.5 [facility] Comment on above: Performed By: #### T 7, LIPA, TSH, AMADOU, CMP #### [facility] [address] [place] [address] Dr. Krystle Heaton LYMPH # 1.2 103/ul Normal 1.2-3.8 [facility] Comment on above: Performed By: #### T 7, LIPA, TSH, AMADOU, CMP #### [facility] [address] [place] [address] Dr. Krystle Heaton Lymphocytes/100 WBC (Bld) 32.7 % Normal 20.5-60.0 [facility] Comment on above: Performed By: #### T 7, LIPA, TSH, AMADOU, CMP #### [facility] [address] [place] [address] Dr. Krystle Heaton MANUAL DIFF REQ NO Normal [facility] Comment on above: Performed By: #### T 7, LIPA, TSH, AMADOU, CMP #### [facility] [address] [place] [address] Dr. Krystle Heaton MCH (RBC) [Entitic mass] 36.5 pg Critically high 25.9-3 4.0 [facility] Comment on above: Performed By: #### T 7, LIPA, TSH, AMADOU, CMP #### [facility] [address] [place] [address] Dr. Krystle Heaton MCHC (RBC) [Mass/Vol] 33.4 g/dL Normal 29.9-35.2 [facility] Comment on above: Result Comment: MACR OCYTOSIS PRESENT Performed By: #### T 7, LIPA, TSH, AMADOU, CMP #### [facility] [address] [place] [address] Dr. Krystle Heaton MCV (RBC) [Entitic vol] 109.2 fL Critically high 80.0-94 .0 [facility] Comment on above: Performed By: #### T 7, LIPA, TSH, AMADOU, CMP #### [facility] [address] [place] [address] Dr. Krystle Heaton MONO # 0.4 103/ul Normal 0.3-0.8 [facility] Comment on above: Performed By: #### T 7, LIPA, TSH, AMADOU, CMP #### [facility] [address] [place] [address] Dr. Krystle Heaton Monocytes/100 WBC (Bld) 11.4 % Normal 1.7-12.0 [facility] Comment on above: Performed By: #### T 7, LIPA, TSH, AMADOU, CMP #### [facility] [address] [address] [address] Krystle Heaton NEUT # 1.9 103/ul Normal 1.4-6.5 [facility] Comment on above: Performed By: #### T 7, LIPA, TSH, AMADOU, CMP #### [facility] [address] [place] [address] Dr. Krystle Heaton Neutrophils/100 WBC (Bld) 51.8 % Normal 43.0-75.0 [facility] Comment on above: Performed By: #### T 7, LIPA, TSH, AMADOU, CMP #### [facility] [address] [place] [address] Dr. Krystle Heaton Platelet mean volume (Bld) [ Entitic vol] 10.8 fL Normal 9.5-13.5 [facility] Comment on above: Performed By: #### T 7, LIPA, TSH, AMADOU, CMP #### [facility] [address] [place] [address] Dr. Krystle Heaton PLT 184 103/ul Normal 150-450 [facility] Comment on above: Performed By: #### T 7, LIPA, TSH, AMADOU, CMP #### [facility] [address] [address] [address] Krystle Heaton RBC 3.70 106/ul Critically low 4.70-6.10 [facility] Comment on above: Performed By: #### T 7, LIPA, TSH, AMADOU, CMP #### [facility] [address] [address] [address] Krystle Heaton WBC 3.6 103/ul Critically low 4.0-11.0 [facility] Comment on above: Performed By: #### T 7, LIPA, TSH, AMADOU, CMP #### [facility] [address] [address] [address] Krystle Heaton FERRITINon 03-30-2021 Ferritin [Mass/Vol] ng/mL Critically high 17.9-464.0 [facility] Comment on above: Performed By: #### F ERR #### [facility] [address] [place] [address] Dr. Krystle Heaton FREE T4on 03-30-2021 Free T4 [Mass/Vol] 0.83 ng/dL Normal 0.78-2.19 [facility] Comment on above: Performed By: #### F ERR #### [facility] [address] [place] [address] Dr. Krystle Heaton IRON AND TIBCon 03-30-2021 % SATURATION 78.5 % Normal [facility] Comment on above: Performed By: #### F ERR #### [facility] [address] [place] [address] Dr. Krystle Heaton Iron [Mass/Vol] 230.0 ug/dL Critically high 49.0-181.0 [facility] Comment on above: Performed By: #### F ERR #### [facility] [address] [place] [address] Dr. Krystle Heaton TIBC DIRECT 293.0 ug/dL Normal 261.0-497.0 [facility] Comment on above: Performed By: #### F ERR #### [facility] [address] [place] [address] Dr. Krystle Heaton PROF 14(COMP METB)on 021 Albumin [Mass/Vol] 3.8 g/dL Normal 3.5-5.0 [facility] Comment on above: Performed By: #### T 7, LIPA, TSH, AMADOU, CMP #### [facility] [address] [place] [address] Dr. Krystle Heaton Albumin/Globulin [Mass ratio] 1.0 {ratio} Normal [facility] Comment on above: Performed By: #### T 7, LIPA, TSH, AMADOU, CMP #### [facility] [address] [place] [address] Dr. Krystle Heaton ALP [Catalytic activity/Vol] 90 U/L Normal 38-126 [facility] Comment on above: Performed By: #### T 7, LIPA, TSH, AMADOU, CMP #### [facility] [address] [place] [address] Dr. Krystle Heaton ALT [Catalytic activity/Vol] 149 U/L Critically high 21 -72 [facility] Comment on above: Performed By: #### T 7, LIPA, TSH, AMADOU, CMP #### [facility] [address] [place] [address] Dr. Krystle Heaton Anion gap [Moles/Vol] 16.0 mmol/L Normal [facility] Comment on above: Performed By: #### T 7, LIPA, TSH, AMADOU, CMP #### [facility] [address] [place] [address] Dr. Krystle Heaton AST [Catalytic activity/Vol] 187 U/L Critically high 17 -59 [facility] Comment on above: Performed By: #### T 7, LIPA, TSH, AMADOU, CMP #### [facility] [address] [place] [address] Dr. Krystle Heaton Bilirubin [Mass/Vol] 0.6 mg/dL Normal 0.2-1.3 [facility] Comment on above: Performed By: #### T 7, LIPA, TSH, AMADOU, CMP #### [facility] [address] [place] [address] Dr. Krystle Heaton Calcium [Mass/Vol] 9.2 mg/dL Normal 8.4-10.2 [facility] Comment on above: Performed By: #### T 7, LIPA, TSH, AMADOU, CMP #### [facility] [address] [place] [address] Dr. Krystle Heaton Chloride [Moles/Vol] 100 mmol/L Normal 98-107 [facility] Comment on above: Performed By: #### T 7, LIPA, TSH, AMADOU, CMP #### [facility] [address] [place] [address] Dr. Krystle Heaton CO2 [Moles/Vol] 26.2 mmol/L Normal 22.0-30.0 [facility] Comment on above: Performed By: #### T 7, LIPA, TSH, AMADOU, CMP #### [facility] Laboratory [address] [place] [address] Dr. Krystle Heaton Creatinine [Mass/Vol] 1.07 mg/dL Normal 0.66-1.25 [facility] Comment on above: Performed By: #### T 7, LIPA, TSH, AMADOU, CMP #### [facility] [address] [place] [address] Dr. Krystle Heaton EGFR-AF ARGENTINE >60 Normal >=60 [facility] Comment on above: Performed By: #### T 7, LIPA, TSH, AMADOU, CMP #### [facility] [address] [place] [address] Dr. Krystle Heaton EGFR-NON AF ARGENTINE >60 Normal >=60 [facility] Comment on above: Performed By: #### T 7, LIPA, TSH, AMADOU, CMP #### [facility] [address] [place] [address] Dr. Krystle Heaton Globulin (S) [Mass/Vol] 3.8 g/dL Normal [facility] Comment on above: Performed By: #### T 7, LIPA, TSH, AMADOU, CMP #### [facility] [address] [place] [address] Dr. Krystle Heaton Glucose [Mass/Vol] 110 mg/dL Critically high 74-106 [facility] Comment on above: Performed By: #### T 7, LIPA, TSH, AMADOU, CMP #### [facility] [address] [place] [address] Dr. Krystle Heaton Potassium [Moles/Vol] 4.2 mmol/L Normal 3.4-5.0 [facility] Comment on above: Performed By: #### T 7, LIPA, TSH, AMADOU, CMP #### [facility] [address] [place] [address] Dr. Krystle Heaton Protein [Mass/Vol] 7.6 g/dL Normal 6.1-8.2 [facility] Comment on above: Performed By: #### T 7, LIPA, TSH, AMADOU, CMP #### [facility] [address] [place], [place] [id number] Dr. Krystle Heaton Sodium [Moles/Vol] 138 mmol/L Normal 137-145 [facility] Comment on above: Performed By: #### T 7, LIPA, TSH, AMADOU, CMP #### [facility] [address] [place] [address] Dr. Krystle Heaton Urea nitrogen [Mass/Vol] 9.0 mg/dL Normal 9.0-20.0 [facility] Comment on above: Performed By: #### T 7, LIPA, TSH, AMADOU, CMP #### [facility] [address] [place] [address] Dr. Krystle Heaton Urea nitrogen/Creatinine [Mass ratio] 8.4 mg/mg Normal [facility] Comment on above: Performed By: #### T 7, LIPA, TSH, AMADOU, CMP #### [facility] [address] [place] [address] Dr. Krystle Heaton TSHon 03-30-2021 TSH 1.030 uIU/mL Normal 0.470-4.680 [facility] Comment on above: Performed By: #### T 7, LIPA, TSH, AMADOU, CMP #### [facility] [address] [place] [address] Dr. Krystle Heaton TSH RANGE SEE BELOW Normal [facility] Comment on above: Result Comment: <0.3 4 UIU/ml HYPERTHYROID 0.34-5.60 UIU/ml EUTHYROID >5.60 UIU/ml HYPOTHYROID Performed By: #### T 7, LIPA, TSH, AMADOU, CMP #### [facility] [address] [place] [address] Dr. Krystle Heaton CBC AUTO DIFFon 03-22-2021 BASO # 0.0 103/ul Normal 0.0-0.1 [facility] Comment on above: Performed By: #### T 7, LIPA, TSH, AMADOU, CMP #### [facility] [address] [place] [address] Dr. Krystle Heaton Basophils/100 WBC (Bld) 0.6 % Normal 0.2-2.0 [facility] Comment on above: Performed By: #### T 7, LIPA, TSH, AMADOU, CMP #### [facility] [address] [place] [address] Dr. Krystle Heaton EO # 0.1 103/ul Normal 0.0-0.7 [facility] Comment on above: Performed By: #### T 7, LIPA, TSH, AMADOU, CMP #### [facility] [address] [place] [address] Dr. Krystle Heaton Eosinophils/100 WBC (Bld) 2.1 % Normal 0.9-7.0 [facility] Comment on above: Performed By: #### T 7, LIPA, TSH, AMADOU, CMP #### [facility] [address] [place] [address] Dr. Krystle Heaton Erythrocyte distribution wid th (RBC) [Ratio] 12.7 % Normal 11.0-15.0 [facility] p[facility] Comment on above: Performed By: #### T 7, LIPA, TSH, AMADOU, CMP #### [facility] [address] [place] [address] Dr. Krystle Heaton Hematocrit (Bld) [Volume fraction] 37.5 % Critically low 42.0-54.0 [facility] Comment on above: Performed By: #### T 7, LIPA, TSH, AMADOU, CMP #### [facility] [address] [place] [address] Dr. Krystle Heaton Hemoglobin (Bld) [Mass/Vol] 13.1 g/dL Critically low 14.0 -18.0 [facility] Comment on above: Performed By: #### T 7, LIPA, TSH, AMADOU, CMP #### [facility] [address] [place] [address] Dr. Krystle Heaton IG # 0.01 10e3/ul Normal 0.00-0.03 [facility] Comment on above: Performed By: #### T 7, LIPA, TSH, AMADOU, CMP #### [facility] [address] [place] [address] Dr. Krystle Heaton IG % 0.3 % Normal 0.0-0.5 [facility] Comment on above: Performed By: #### T 7, LIPA, TSH, AMADOU, CMP #### [facility] [address] [place] [address] Dr. Krystle Heaton LYMPH # 1.2 103/ul Normal 1.2-3.8 [facility] Comment on above: Performed By: #### T 7, LIPA, TSH, AMADOU, CMP #### [facility] [address] [place] [address] Dr. Krystle Heaton Lymphocytes/100 WBC (Bld) 35.7 % Normal 20.5-60.0 [facility] Comment on above: Performed By: #### T 7, LIPA, TSH, AMADOU, CMP #### [facility] [address] [place] [address] Dr. Krystle Heaton MANUAL DIFF REQ NO Normal [facility] Comment on above: Performed By: #### T 7, LIPA, TSH, AMADOU, CMP #### [facility] [address] [place] [address] Dr. Krystle Heaton MCH (RBC) [Entitic mass] 37.0 pg Critically high 25.9-3 4.0 [facility] Comment on above: Performed By: #### T 7, LIPA, TSH, AMADOU, CMP #### [facility] [address] [place] [address] Dr. Krystle Heaton MCHC (RBC) [Mass/Vol] 34.9 g/dL Normal 29.9-35.2 [facility] Comment on above: Performed By: #### T 7, LIPA, TSH, AMADOU, CMP #### [facility] [address] [place] [address] Dr. Krystle Heaton MCV (RBC) [Entitic vol] 105.9 fL Critically high 80.0-94 .0 [facility] Comment on above: Performed By: #### T 7, LIPA, TSH, AMADOU, CMP #### [facility] [address] [place] [address] Dr. Krystle Heaton MONO # 0.2 103/ul Critically low 0.3-0.8 [facility] Comment on above: Performed By: #### T 7, LIPA, TSH, AMADOU, CMP #### [facility] [address] [place] [address] Dr. Krystle Heaton Monocytes/100 WBC (Bld) 6.8 % Normal 1.7-12.0 [facility] Comment on above: Performed By: #### T 7, LIPA, TSH, AMADOU, CMP #### [facility] [address] [place] [address] Dr. Krystle Heaton NEUT # 1.8 103/ul Normal 1.4-6.5 [facility] Comment on above: Performed By: #### T 7, LIPA, TSH, AMADOU, CMP #### [facility] [address] [place] [address] Dr. Krystle Heaton Neutrophils/100 WBC (Bld) 54.5 % Normal 43.0-75.0 [facility] Comment on above: Performed By: #### T 7, LIPA, TSH, AMADOU, CMP #### [facility] [address] [place] [address] Dr. Krystle Heaton Platelet mean volume (Bld) [ Entitic vol] 10.4 fL Normal 9.5-13.5 [facility] Comment on above: Performed By: #### T 7, LIPA, TSH, AMADOU, CMP #### [facility] [address] [place] [address] Dr. Krystle Heaton PLT 126 103/ul Critically low 150-450 [facility] Comment on above: Performed By: #### T 7, LIPA, TSH, AMADOU, CMP #### [facility] [address] [place] [address] Dr. Krystle Heaton RBC 3.54 106/ul Critically low 4.70-6.10 [facility] Comment on above: Performed By: #### T 7, LIPA, TSH, AMADOU, CMP #### [facility] [address] [place] [address] Dr. Krystle Heaton WBC 3.4 103/ul Critically low 4.0-11.0 [facility] Comment on above: Performed By: #### T 7, LIPA, TSH, AMADOU, CMP #### [facility] [address] [place] [address] Dr. Krystle Heaton FERRITINon 03-22-2021 Ferritin [Mass/Vol] ng/mL Critically high 17.9-464.0 [facility] Comment on above: Performed By: #### T 7, LIPA, TSH, AMADOU, CMP #### [facility] [address] [address] [address] Krystle Heaton FREE T4on 03-22-2021 Free T4 [Mass/Vol] 0.78 ng/dL Normal 0.78-2.19 [facility] Comment on above: Performed By: #### T 7, LIPA, TSH, AMADOU, CMP #### [facility] [address] [place] [address] Dr. Krystle Heaton IRON AND TIBCon 03-22-2021 % SATURATION 106.0 % Normal [facility] Comment on above: Performed By: #### T 7, LIPA, TSH, AMADOU, CMP #### [facility] [address] [place] [address] Dr. Krystle Heaton Iron [Mass/Vol] 233.0 ug/dL Critically high 49.0-181.0 [facility] Comment on above: Performed By: #### T 7, LIPA, TSH, AMADOU, CMP #### [facility] [address] [place] [address] Dr. Krystle Heaton TIBC DIRECT 220.0 ug/dL Critically low 261.0-497.0 [facility] Comment on above: Performed By: #### T 7, LIPA, TSH, AMADOU, CMP #### [facility] [address] [place] [address] Dr. Krystle Heaton PROF 14(COMP METB)on 021 Albumin [Mass/Vol] 3.5 g/dL Normal 3.5-5.0 [facility] Comment on above: Performed By: #### T 7, LIPA, TSH, AMADOU, CMP #### [facility] [address] [place], [place] [id number] Dr. Krystle Heaton Albumin/Globulin [Mass ratio] 1.0 {ratio} Normal [facility] Comment on above: Performed By: #### T 7, LIPA, TSH, AMADOU, CMP #### [facility] [address] [place] [address] Dr. Krystle Heaton ALP [Catalytic activity/Vol] 77 U/L Normal 38-126 [facility] Comment on above: Performed By: #### T 7, LIPA, TSH, AMADOU, CMP #### [facility] [address] [place] [address] Dr. Krystle Heaton ALT [Catalytic activity/Vol] 95 U/L Critically high 21 -72 [facility] Comment on above: Performed By: #### T 7, LIPA, TSH, AMADOU, CMP #### [facility] [address] [place] [address] Dr. Krystle Heaton Anion gap [Moles/Vol] 17.3 mmol/L Normal [facility] Comment on above: Performed By: #### T 7, LIPA, TSH, AMADOU, CMP #### [facility] [address] [place] [address] Dr. Krystle Heaton AST [Catalytic activity/Vol] 161 U/L Critically high 17 -59 [facility] Comment on above: Performed By: #### T 7, LIPA, TSH, AMADOU, CMP #### [facility] [address] [place] [address] Dr. Krystle Heaton Bilirubin [Mass/Vol] 0.8 mg/dL Normal 0.2-1.3 [facility] Comment on above: Performed By: #### T 7, LIPA, TSH, AMADOU, CMP #### [facility] [address] [place] [address] Dr. Krystle Heaton Calcium [Mass/Vol] 8.5 mg/dL Normal 8.4-10.2 [facility] Comment on above: Performed By: #### T 7, LIPA, TSH, AMADOU, CMP #### [facility] [address] [place] [address] Dr. Krystle Heaton Chloride [Moles/Vol] 101 mmol/L Normal 98-107 [facility] Comment on above: Performed By: #### T 7, LIPA, TSH, AMADOU, CMP #### [facility] [address] [place] [address] Dr. Krystle Heaton CO2 [Moles/Vol] 22.6 mmol/L Normal 22.0-30.0 [facility] Comment on above: Performed By: #### T 7, LIPA, TSH, AMADOU, CMP #### [facility] [address] [place] [address] Dr. Krystle Heaton Creatinine [Mass/Vol] 0.98 mg/dL Normal 0.66-1.25 [facility] Comment on above: Performed By: #### T 7, LIPA, TSH, AMADOU, CMP #### [facility] [address] [place] [address] Dr. Krystle Heaton EGFR-AF ARGENTINE >60 Normal >=60 [facility] Comment on above: Performed By: #### T 7, LIPA, TSH, AMADOU, CMP #### [facility] [address] [place] [address] Dr. Krystle Heaton EGFR-NON AF ARGENTINE >60 Normal >=60 [facility] Comment on above: Performed By: #### T 7, LIPA, TSH, AMADOU, CMP #### [facility] [address] [place] [address] Dr. Krystle Heaton Globulin (S) [Mass/Vol] 3.4 g/dL Normal [facility] Comment on above: Performed By: #### T 7, LIPA, TSH, AMADOU, CMP #### [facility] [address] [place] [address] Dr. Krystle Heaton Glucose [Mass/Vol] 103 mg/dL Normal 74-106 [facility] Comment on above: Performed By: #### T 7, LIPA, TSH, AMADOU, CMP #### [facility] [address] [place] [address] Dr. Krystle Heaton Potassium [Moles/Vol] 3.9 mmol/L Normal 3.4-5.0 [facility] Comment on above: Performed By: #### T 7, LIPA, TSH, AMADOU, CMP #### [facility] [address] [place] [address] Dr. Krystle Heaton Protein [Mass/Vol] 6.9 g/dL Normal 6.1-8.2 [facility] Comment on above: Performed By: #### T 7, LIPA, TSH, AMADOU, CMP #### [facility] [address] [place] [address] Dr. Krystle Heaton Sodium [Moles/Vol] 137 mmol/L Normal 137-145 [facility] Comment on above: Performed By: #### T 7, LIPA, TSH, AMADOU, CMP #### [facility] [address] [place] [address] Dr. Krystle Heaton Urea nitrogen [Mass/Vol] 8.0 mg/dL Critically low 9.0-20. 0 [facility] Comment on above: Performed By: #### T 7, LIPA, TSH, AMADOU, CMP #### [facility] [address] [place] [address] Dr. Krystle Heaton Urea nitrogen/Creatinine [Mass ratio] 8.2 mg/mg Normal [facility] Comment on above: Performed By: #### T 7, LIPA, TSH, AMADOU, CMP #### [facility] [address] [place] [address] Dr. Krystle Heaton TSHon 03-22-2021 TSH 2.059 uIU/mL Normal 0.470-4.680 [facility] Comment on above: Performed By: #### T 7, LIPA, TSH, AMADOU, CMP #### [facility] [address] [place] [address] Dr. Krystle Heaton TSH RANGE SEE BELOW Normal [facility] Comment on above: Result Comment: <0.3 4 UIU/ml HYPERTHYROID 0.34-5.60 UIU/ml EUTHYROID >5.60 UIU/ml HYPOTHYROID Performed By: #### T 7, LIPA, TSH, AMADOU, CMP #### [facility] [address] [place] [address] Dr. Krystle Heaton CBC AUTO DIFFon 03-17-2021 BASO # 0.0 103/ul Normal 0.0-0.1 [facility] Comment on above: Performed By: #### T 7, LIPA, TSH, AMADOU, CMP #### [facility] [address] [place] [address] Dr. Krystle Heaton Basophils/100 WBC (Bld) 0.3 % Normal 0.2-2.0 [facility] Comment on above: Performed By: #### T 7, LIPA, TSH, AMADOU, CMP #### [facility] [address] [place] [address] Dr. Krystle Heaton EO # 0.1 103/ul Normal 0.0-0.7 [facility] Comment on above: Performed By: #### T 7, LIPA, TSH, AMADOU, CMP #### [facility] [address] [place] [address] Dr. Krystle Heaton Eosinophils/100 WBC (Bld) 1.8 % Normal 0.9-7.0 [facility] Comment on above: Performed By: #### T 7, LIPA, TSH, AMADOU, CMP #### [facility] [address] [place] [address] Dr. Krystle Heaton Erythrocyte distribution wid th (RBC) [Ratio] 12.5 % Normal 11.0-15.0 [facility] Comment on above: Performed By: #### T 7, LIPA, TSH, AMADOU, CMP #### [facility] [address] [place] [address] Dr. Krystle Heaton Hematocrit (Bld) [Volume fraction] 40.9 % Critically low 42.0-54.0 [facility] Comment on above: Performed By: #### T 7, LIPA, TSH, AMADOU, CMP #### [facility] [address] [place] [address] Dr. Krystle Heaton Hemoglobin (Bld) [Mass/Vol] 14.1 g/dL Normal 14.0-18. 0 [facility] Comment on above: Performed By: #### T 7, LIPA, TSH, AMADOU, CMP #### [facility] [address] [place] [address] Dr. Krystle Heaton IG # 0.01 10e3/ul Normal 0.00-0.03 [facility] Comment on above: Performed By: #### T 7, LIPA, TSH, AMADOU, CMP #### [facility] [address] [place] [address] Dr. Krystle Heaton IG % 0.3 % Normal 0.0-0.5 [facility] Comment on above: Performed By: #### T 7, LIPA, TSH, AMADOU, CMP #### [facility] [address] [place] [address] Dr. Krystle Heaton LYMPH # 1.3 103/ul Normal 1.2-3.8 [facility] Comment on above: Performed By: #### T 7, LIPA, TSH, AMADOU, CMP #### [facility] [address] [place] [address] Dr. Krystle Heaton Lymphocytes/100 WBC (Bld) 41.1 % Normal 20.5-60.0 [facility] Comment on above: Performed By: #### T 7, LIPA, TSH, AMADOU, CMP #### [facility] [address] [place] [address] Dr. Krystle Heaton MANUAL DIFF REQ NO Normal [facility] Comment on above: Performed By: #### T 7, LIPA, TSH, AMADOU, CMP #### [facility] [address] [place] [address] Dr. Krystle Heaton MCH (RBC) [Entitic mass] 36.3 pg Critically high 25.9-3 4.0 [facility] Comment on above: Performed By: #### T 7, LIPA, TSH, AMADOU, CMP #### [facility] [address] [place] [address] Dr. Krystle Heaton MCHC (RBC) [Mass/Vol] 34.5 g/dL Normal 29.9-35.2 [facility] Comment on above: Performed By: #### T 7, LIPA, TSH, AMADOU, CMP #### [facility] [address] [place] [address] Dr. Krystle Heaton MCV (RBC) [Entitic vol] 105.4 fL Critically high 80.0-94 .0 [facility] Comment on above: Performed By: #### T 7, LIPA, TSH, AMADOU, CMP #### [facility] [address] [place] [address] Dr. Krystle Heaton MONO # 0.3 103/ul Normal 0.3-0.8 [facility] Comment on above: Performed By: #### T 7, LIPA, TSH, AMADOU, CMP #### [facility] [address] [place] [address] Dr. Krystle Heaton Monocytes/100 WBC (Bld) 8.0 % Normal 1.7-12.0 [facility] Comment on above: Performed By: #### T 7, LIPA, TSH, AMADOU, CMP #### [facility] [address] [place] [address] Dr. Krystle Heaton NEUT # 1.6 103/ul Normal 1.4-6.5 [facility] Comment on above: Performed By: #### T 7, LIPA, TSH, AMADOU, CMP #### [facility] [address] [place] [address] Dr. Krystle Heaton Neutrophils/100 WBC (Bld) 48.5 % Normal 43.0-75.0 [facility] Comment on above: Performed By: #### T 7, LIPA, TSH, AMADOU, CMP #### [facility] [address] [place] [address] Dr. Krystle Heaton Platelet mean volume (Bld) [ Entitic vol] 10.6 fL Normal 9.5-13.5 [facility] Comment on above: Performed By: #### T 7, LIPA, TSH, AMADOU, CMP #### [facility] [address] [place] [address] Dr. Krystle Heaton PLT 134 103/ul Critically low 150-450 [facility] Comment on above: Performed By: #### T 7, LIPA, TSH, AMADOU, CMP #### [facility] [address] [address] [address] Krystle Heaton RBC 3.88 106/ul Critically low 4.70-6.10 [facility] Comment on above: Result Comment: Macr ocytosis 1+ Stomatocytes 1+ Performed By: #### T 7, LIPA, TSH, AMADOU, CMP #### [facility] [address] [place] [address] Dr. Krystle Heaton WBC 3.3 103/ul Critically low 4.0-11.0 [facility] Comment on above: Performed By: #### T 7, LIPA, TSH, AMADOU, CMP #### [facility] [address] [place] [address] Dr. Krystle Heaton FERRITINon 03-17-2021 Ferritin [Mass/Vol] ng/mL Critically high 17.9-464.0 [facility] Comment on above: Performed By: #### T 7, LIPA, TSH, AMADOU, CMP #### [facility] [address] [place] [address] Dr. Krystle Heaton FREE T4on 03-17-2021 Free T4 [Mass/Vol] 0.82 ng/dL Normal 0.78-2.19 [facility] Comment on above: Performed By: #### T 7, LIPA, TSH, AMADOU, CMP #### [facility] [address] [place] [address] Dr. Krystle Heaton IRON AND TIBCon 03-17-2021 % SATURATION 100.8 % Normal [facility] Comment on above: Performed By: #### T 7, LIPA, TSH, AMADOU, CMP #### [facility] [address] [place] [address] Dr. Krystle Heaton Iron [Mass/Vol] 249.0 ug/dL Critically high 49.0-181.0 [facility] Comment on above: Performed By: #### T 7, LIPA, TSH, AMADOU, CMP #### [facility] [address] [place] [address] Dr. Krystle Heaton TIBC DIRECT 247.0 ug/dL Critically low 261.0-497.0 [facility] Comment on above: Performed By: #### T 7, LIPA, TSH, AMADOU, CMP #### [facility] [address] [address] [address] Krystle Heaton PROF 14(COMP METB)on 021 Albumin [Mass/Vol] 3.7 g/dL Normal 3.5-5.0 [facility] Comment on above: Performed By: #### T 7, LIPA, TSH, AMADOU, CMP #### [facility] [address] [place] [address] Dr. Krystle Heaton Albumin/Globulin [Mass ratio] 1.1 {ratio} Normal [facility] Comment on above: Performed By: #### T 7, LIPA, TSH, AMADOU, CMP #### [facility] [address] [place] [address] Dr. Krystle Heaton ALP [Catalytic activity/Vol] 78 U/L Normal 38-126 [facility] Comment on above: Performed By: #### T 7, LIPA, TSH, AMADOU, CMP #### [facility] [address] [place] [address] Dr. Krystle Heaton ALT [Catalytic activity/Vol] 100 U/L Critically high 21 -72 [facility] Comment on above: Performed By: #### T 7, LIPA, TSH, AMADOU, CMP #### [facility] [address] [place] [address] Dr. Krystle Heaton Anion gap [Moles/Vol] 14.4 mmol/L Normal [facility] Comment on above: Performed By: #### T 7, LIPA, TSH, AMADOU, CMP #### [facility] [address] [place] [address] Dr. Krystle Heaton AST [Catalytic activity/Vol] 158 U/L Critically high 17 -59 [facility] Comment on above: Performed By: #### T 7, LIPA, TSH, AMADOU, CMP #### [facility] [address] [place] [address] Dr. Krystle Heaton Bilirubin [Mass/Vol] 0.6 mg/dL Normal 0.2-1.3 [facility] Comment on above: Performed By: #### T 7, LIPA, TSH, AMADOU, CMP #### [facility] [address] [place] [address] Dr. Krystle Heaton Calcium [Mass/Vol] 8.9 mg/dL Normal 8.4-10.2 [facility] Comment on above: Performed By: #### T 7, LIPA, TSH, AMADOU, CMP #### [facility] [address] [place] [address] Dr. Krystle Heaton Chloride [Moles/Vol] 100 mmol/L Normal 98-107 [facility] Comment on above: Performed By: #### T 7, LIPA, TSH, AMADOU, CMP #### [facility] [address] [place] [address] Dr. Krystle Heaton CO2 [Moles/Vol] 27.3 mmol/L Normal 22.0-30.0 [facility] Comment on above: Performed By: #### T 7, LIPA, TSH, AMADOU, CMP #### [facility] [address] [place] [address] Dr. Krystle Heaton Creatinine [Mass/Vol] 1.08 mg/dL Normal 0.66-1.25 [facility] Comment on above: Performed By: #### T 7, LIPA, TSH, AMADOU, CMP #### [facility] [address] [place] [address] Dr. Krystle Heaton EGFR-AF ARGENTINE >60 Normal >=60 [facility] Comment on above: Performed By: #### T 7, LIPA, TSH, AMADOU, CMP #### [facility] [address] [place] [address] Dr. Krystle Heaton EGFR-NON AF ARGENTINE >60 Normal >=60 [facility] Comment on above: Performed By: #### T 7, LIPA, TSH, AMADOU, CMP #### [facility] [address] [place] [address] Dr. Krystle Heaton Globulin (S) [Mass/Vol] 3.5 g/dL Normal T [facility] Comment on above: Performed By: #### T 7, LIPA, TSH, AMADOU, CMP #### [facility] [address] [place] [address] Dr. Krystle Heaton Glucose [Mass/Vol] 115 mg/dL Critically high 74-106 [facility] Comment on above: Performed By: #### T 7, LIPA, TSH, AMADOU, CMP #### [facility] [address] [place] [address] Dr. Krystle Heaton Potassium [Moles/Vol] 3.7 mmol/L Normal 3.4-5.0 [facility] Comment on above: Performed By: #### T 7, LIPA, TSH, AMADOU, CMP #### [facility] [address] [place] [address] Dr. Krystle Heaton Protein [Mass/Vol] 7.2 g/dL Normal 6.1-8.2 [facility] Comment on above: Performed By: #### T 7, LIPA, TSH, AMADOU, CMP #### [facility] [address] [place] [address] Dr. Krystle Heaton Sodium [Moles/Vol] 138 mmol/L Normal 137-145 [facility] Comment on above: Performed By: #### T 7, LIPA, TSH, AMADOU, CMP #### [facility] [address] [place] [address] Dr. Krystle Heaton Urea nitrogen [Mass/Vol] 10.0 mg/dL Normal 9.0-20.0 [facility] Comment on above: Performed By: #### T 7, LIPA, TSH, AMADOU, CMP #### [facility] [address] [place] [address] Dr. Krystle Heaton Urea nitrogen/Creatinine [Mass ratio] 9.3 mg/mg Normal [facility] Comment on above: Performed By: #### T 7, LIPA, TSH, AMADOU, CMP #### [facility] [address] [place] [address] Dr. Krystle Heaton TSHon 03-17-2021 TSH 1.904 uIU/mL Normal 0.470-4.680 [facility] Comment on above: Performed By: #### T 7, LIPA, TSH, AMADOU, CMP #### [facility] [address] [place] [address] Dr. Krystle Heaton TSH RANGE SEE BELOW Normal [facility] Comment on above: Result Comment: <0.3 4 UIU/ml HYPERTHYROID 0.34-5.60 UIU/ml EUTHYROID >5.60 UIU/ml HYPOTHYROID Performed By: #### T 7, LIPA, TSH, AMADOU, CMP #### [facility] [address] [place] [address] Dr. Krystle Heaton CBC AUTO DIFFon 03-08-2021 BASO # 0.0 103/ul Normal 0.0-0.1 [facility] Comment on above: Performed By: #### T 7, LIPA, TSH, AMADOU, CMP #### [facility] [address] [place] [address] Dr. Krystle Heaton Basophils/100 WBC (Bld) 0.8 % Normal 0.2-2.0 [facility] Comment on above: Performed By: #### T 7, LIPA, TSH, AMADOU, CMP #### [facility] [address] [place] [address] Dr. Krystle Heaton EO # 0.1 103/ul Normal 0.0-0.7 [facility] Comment on above: Performed By: #### T 7, LIPA, TSH, AMADOU, CMP #### [facility] [address] [place] [address] Dr. Krystle Hetaon Eosinophils/100 WBC (Bld) 1.5 % Normal 0.9-7.0 [facility] Comment on above: Performed By: #### T 7, LIPA, TSH, AMADOU, CMP #### [facility] [address] [place] [address] Dr. Krystle Heaton Erythrocyte distribution wid th (RBC) [Ratio] 12.2 % Normal 11.0-15.0 [facility] Comment on above: Performed By: #### T 7, LIPA, TSH, AMADOU, CMP #### [facility] [address] [place] [address] Dr. Krystle Heaton Hematocrit (Bld) [Volume fraction] 45.5 % Normal 4 2.0-54.0 [facility] Comment on above: Performed By: #### T 7, LIPA, TSH, AMADOU, CMP #### [facility] [address] [place] [address] Dr. Krystle Heaton Hemoglobin (Bld) [Mass/Vol] 15.9 g/dL Normal 14.0-18. 0 [facility] Comment on above: Performed By: #### T 7, LIPA, TSH, AMADOU, CMP #### [facility] [address] [place] [address] Dr. Krystle Heaton IG # 0.01 10e3/ul Normal 0.00-0.03 [facility] Comment on above: Performed By: #### T 7, LIPA, TSH, AMADOU, CMP #### [facility] [address] [place] [address] Dr. Krystle Heaton IG % 0.2 % Normal 0.0-0.5 [facility] Comment on above: Performed By: #### T 7, LIPA, TSH, AMADOU, CMP #### [facility] [address] [place] [address] Dr. Krystle Heaton LYMPH # 1.8 103/ul Normal 1.2-3.8 [facility] Comment on above: Performed By: #### T 7, LIPA, TSH, AMADOU, CMP #### [facility] [address] [place] [address] Dr. Krystle Heaton Lymphocytes/100 WBC (Bld) 37.8 % Normal 20.5-60.0 [facility] Comment on above: Performed By: #### T 7, LIPA, TSH, AMADOU, CMP #### [facility] [address] [place] [address] Dr. Krystle Heaton MANUAL DIFF REQ NO Normal [facility] Comment on above: Performed By: #### T 7, LIPA, TSH, AMADOU, CMP #### [facility] [address] [place] [address] Dr. Krystle Heaton MCH (RBC) [Entitic mass] 36.4 pg Critically high 25.9-3 4.0 [facility] Comment on above: Performed By: #### T 7, LIPA, TSH, AMADOU, CMP #### [facility] [address] [place] [address] Dr. Krystle Heaton MCHC (RBC) [Mass/Vol] 34.9 g/dL Normal 29.9-35.2 [facility] Comment on above: Performed By: #### T 7, LIPA, TSH, AMADOU, CMP #### [facility] [address] [place] [address] Dr. Krystle Heaton MCV (RBC) [Entitic vol] 104.1 fL Critically high 80.0-94 .0 [facility] Comment on above: Performed By: #### T 7, LIPA, TSH, AMADOU, CMP #### [facility] [address] [place] [address] Dr. Krystle Heaton MONO # 0.4 103/ul Normal 0.3-0.8 [facility] Comment on above: Performed By: #### T 7, LIPA, TSH, AMADOU, CMP #### [facility] [address] [place] [address] Dr. Krystle Heaton Monocytes/100 WBC (Bld) 8.3 % Normal 1.7-12.0 [facility] Comment on above: Performed By: #### T 7, LIPA, TSH, AMADOU, CMP #### [facility] [address] [place] [address] Dr. Krystle Heaton NEUT # 2.4 103/ul Normal 1.4-6.5 [facility] Comment on above: Performed By: #### T 7, LIPA, TSH, AMADOU, CMP #### [facility] [address] [place] [address] Dr. Krystle Heaton Neutrophils/100 WBC (Bld) 51.4 % Normal 43.0-75.0 [facility] Comment on above: Performed By: #### T 7, LIPA, TSH, AMADOU, CMP #### [facility] [address] [place] [address] Dr. Krystle Heaton Platelet mean volume (Bld) [ Entitic vol] 10.8 fL Normal 9.5-13.5 [facility] Comment on above: Performed By: #### T 7, LIPA, TSH, AMADOU, CMP #### [facility] [address] [place] [address] Dr. Krystle Heaton PLT 175 103/ul Normal 150-450 [facility] Comment on above: Performed By: #### T 7, LIPA, TSH, AMADOU, CMP #### [facility] [address] [place] [address] Dr. Krystle Heaton RBC 4.37 106/ul Critically low 4.70-6.10 [facility] Comment on above: Performed By: #### T 7, LIPA, TSH, AMADOU, CMP #### [facility] [address] [place] [address] Dr. Krystle Heaton WBC 4.7 103/ul Normal 4.0-11.0 [facility] Comment on above: Performed By: #### T 7, LIPA, TSH, AMADOU, CMP #### [facility] [address] [place] [address] Dr. Krystle Heaton FERRITINon 03-08-2021 Ferritin [Mass/Vol] ng/mL Critically high 17.9-464.0 [facility] Comment on above: Performed By: #### T 7, LIPA, TSH, AMADOU, CMP #### [facility] [address] [place] [address] Dr. Krystle Heaton FREE T4on 03-08-2021 Free T4 [Mass/Vol] 0.73 ng/dL Critically low 0.78-2.19 [facility] Comment on above: Performed By: #### T 7, LIPA, TSH, AMADOU, CMP #### [facility] [address] [place] [address] Dr. Krystle Heaton IRON AND TIBCon 03-08-2021 % SATURATION 102.2 % Normal [facility] Comment on above: Performed By: #### T 7, LIPA, TSH, AMADOU, CMP #### [facility] [address] [place] [address] Dr. Krystle Heaton Iron [Mass/Vol] 279.0 ug/dL Critically high 49.0-181.0 [facility] Comment on above: Performed By: #### T 7, LIPA, TSH, AMADOU, CMP #### [facility] [address] [place] [address] Dr. Krystle Heaton TIBC DIRECT 273.0 ug/dL Normal 261.0-497.0 [facility] Comment on above: Performed By: #### T 7, LIPA, TSH, AMADOU, CMP #### [facility] [address] [place] [address] Dr. Krystle Heaton PROF 14(COMP METB)on 021 Albumin [Mass/Vol] 3.6 g/dL Normal 3.5-5.0 [facility] Comment on above: Performed By: #### T 7, LIPA, TSH, AMADOU, CMP #### [facility] [address] [place] [address] Dr. Krystle Heaton Albumin/Globulin [Mass ratio] 1.0 {ratio} Normal [facility] Comment on above: Performed By: #### T 7, LIPA, TSH, AMADOU, CMP #### [facility] [address] [place] [address] Dr. Krystle Heaton ALP [Catalytic activity/Vol] 68 U/L Normal 38-126 [facility] Comment on above: Performed By: #### T 7, LIPA, TSH, AMADOU, CMP #### [facility] [address] [place] [address] Dr. Krystle Heaton ALT [Catalytic activity/Vol] 58 U/L Normal 21-72 [facility] Comment on above: Performed By: #### T 7, LIPA, TSH, AMADOU, CMP #### [facility] [address] [place] [address] Dr. Krystle Heaton Anion gap [Moles/Vol] 15.5 mmol/L Normal [facility] Comment on above: Performed By: #### T 7, LIPA, TSH, AMADOU, CMP #### [facility] [address] [place] [address] Dr. Krystle Heaton AST [Catalytic activity/Vol] 56 U/L Normal 17-59 [facility] Comment on above: Performed By: #### T 7, LIPA, TSH, AMADOU, CMP #### [facility] [address] [address] [address] Krystle Heaton Bilirubin [Mass/Vol] 0.7 mg/dL Normal 0.2-1.3 [facility] Comment on above: Performed By: #### T 7, LIPA, TSH, AMADOU, CMP #### [facility] [address] [address] [address] Krystle Heaton Calcium [Mass/Vol] 8.9 mg/dL Normal 8.4-10.2 [facility] Comment on above: Performed By: #### T 7, LIPA, TSH, AMADOU, CMP #### [facility] [address] [place] [address] Dr. Krystle Heaton Chloride [Moles/Vol] 100 mmol/L Normal 98-107 [facility] Comment on above: Performed By: #### T 7, LIPA, TSH, AMADOU, CMP #### [facility] [address] [place] [address] Dr. Krystle Heaton CO2 [Moles/Vol] 26.6 mmol/L Normal 22.0-30.0 [facility] Comment on above: Performed By: #### T 7, LIPA, TSH, AMADOU, CMP #### [facility] [address] [place] [address] Dr. Krystle Heaton Creatinine [Mass/Vol] 1.12 mg/dL Normal 0.66-1.25 [facility] Comment on above: Performed By: #### T 7, LIPA, TSH, AMADOU, CMP #### [facility] [address] [address] [address] Krystle Heaton EGFR-AF ARGENTINE >60 Normal >=60 [facility] Comment on above: Performed By: #### T 7, LIPA, TSH, AMADOU, CMP #### [facility] [address] [address] [address] Krystle Heaton EGFR-NON AF ARGENTINE >60 Normal >=60 [facility] Comment on above: Performed By: #### T 7, LIPA, TSH, AMADOU, CMP #### [facility] [address] [place] [address] Dr. Krystle Heaton Globulin (S) [Mass/Vol] 3.7 g/dL Normal T [facility] Comment on above: Performed By: #### T 7, LIPA, TSH, AMADOU, CMP #### [facility] [address] [place] [address] Dr. Krystle Heaton Glucose [Mass/Vol] 101 mg/dL Normal 74-106 [facility] Comment on above: Performed By: #### T 7, LIPA, TSH, AMADOU, CMP #### [facility] [address] [place] [address] Dr. Krystle Heaton Potassium [Moles/Vol] 4.1 mmol/L Normal 3.4-5.0 [facility] Comment on above: Performed By: #### T 7, LIPA, TSH, AMADOU, CMP #### [facility] [address] [place] [address] Dr. Krystle Heaton Protein [Mass/Vol] 7.3 g/dL Normal 6.1-8.2 [facility] Comment on above: Performed By: #### T 7, LIPA, TSH, AMADOU, CMP #### [facility] [address] [place] [address] Dr. Krystle Heaton Sodium [Moles/Vol] 138 mmol/L Normal 137-145 [facility] Comment on above: Performed By: #### T 7, LIPA, TSH, AMADOU, CMP #### [facility] [address] [place] [address] Dr. Krystle Heaton Urea nitrogen [Mass/Vol] 17.0 mg/dL Normal 9.0-20.0 [facility] Comment on above: Performed By: #### T 7, LIPA, TSH, AMADOU, CMP #### [facility] [address] [place] [address] Dr. Krystle Heaton Urea nitrogen/Creatinine [Mass ratio] 15.2 mg/mg Normal [facility] Comment on above: Performed By: #### T 7, LIPA, TSH, AMADOU, CMP #### [facility] [address] [address] [address] Krystle Heaton TSHon 03-08-2021 TSH 1.781 uIU/mL Normal 0.470-4.680 [facility] Comment on above: Performed By: #### T 7, LIPA, TSH, AMADOU, CMP #### [facility] [address] [place] [address] Dr. Krystle Heaton TSH RANGE SEE BELOW Normal [facility] Comment on above: Result Comment: <0.3 4 UIU/ml HYPERTHYROID 0.34-5.60 UIU/ml EUTHYROID >5.60 UIU/ml HYPOTHYROID Performed By: #### T 7, LIPA, TSH, AMADOU, CMP #### [facility] [address] [place] [address] Dr. Krystle Heaton FERRITINon 02-03-2021 Ferritin [Mass/Vol] ng/mL Critically high 17.9-464.0 [facility] Comment on above: Performed By: #### C BC #### [facility] [address] [address] Billy Devlin [facility]on SARS-CoV-2 (COVID-19) RNA JIMBO+probe Ql (Unsp spec) Not detected Normal NOT DETECTED [facility] Comment on above: Result Comment: This test is not yet approved or cleared by the [place] FDA. When there are no FDA-approved or cleared tests available, and other criteria are met, FDA can make tests available under an emergency access mechanism called an Emergency Use Authorization (EUA). The EUA for this test is supported by the [place] of Health and Human Service's (HHS's) declaration that circumstances exist to justify the emergency use of in vitro diagnostics for the detection and/or diagnosis of the virus that causes COVID-19. This EUA will remain in effect (meaning this test can be used) for the duration of the COVID-19 declaration justifying emergency of IVDs, unless it is terminated or revoked by FDA (after which the test may no longer be used). When diagnostic testing is negative, the possibility of a false negative should be considered in the context of a patient's recent exposures and the presence of clinical signs and symptoms consistent with SARS-CoV-2. Performed By: #### T 7, LIPA, TSH, AMADOU, CMP #### [facility] [address] [place] [address] Dr. Krystle Heaton CBC AUTO DIFFon 01-06-2021 BASO # 0.0 103/ul Normal 0.0-0.1 [facility] Comment on above: Performed By: #### T 7, LIPA, TSH, AMADOU, CMP #### [facility] [address] [place] [address] Dr. Krystle Heaton Basophils/100 WBC (Bld) 1.0 % Normal 0.2-2.0 [facility] Comment on above: Performed By: #### T 7, LIPA, TSH, AMADOU, CMP #### [facility] [address] [place] [address] Dr. Krystle Heaton EO # 0.1 103/ul Normal 0.0-0.7 [facility] Comment on above: Performed By: #### T 7, LIPA, TSH, AMADOU, CMP #### [facility] [address] [place] [address] Dr. Krystle Heaton Eosinophils/100 WBC (Bld) 2.5 % Normal 0.9-7.0 [facility] Comment on above: Performed By: #### T 7, LIPA, TSH, AMADOU, CMP #### [facility] [address] [place] [address] Dr. Krystle Heaton Erythrocyte distribution wid th (RBC) [Ratio] 13.7 % Normal 11.0-15.0 [facility] Comment on above: Performed By: #### T 7, LIPA, TSH, AMADOU, CMP #### [facility] [address] [place] [address] Dr. Krystle Heaton Hematocrit (Bld) [Volume fraction] 44.1 % Normal 4 2.0-54.0 [facility] Comment on above: Performed By: #### T 7, LIPA, TSH, AMADOU, CMP #### [facility] [address] [place] [address] Dr. Krystle Heaton Hemoglobin (Bld) [Mass/Vol] 15.0 g/dL Normal 14.0-18. 0 [facility] Comment on above: Performed By: #### T 7, LIPA, TSH, AMADOU, CMP #### [facility] [address] [place] [address] Dr. Krystle Heaton IG # 0.02 10e3/ul Normal 0.00-0.03 [facility] Comment on above: Performed By: #### T 7, LIPA, TSH, AMADOU, CMP #### [facility] [address] [place] [address] Dr. Krystle Heaton IG % 0.5 % Normal 0.0-0.5 [facility] Comment on above: Performed By: #### T 7, LIPA, TSH, AMADOU, CMP #### [facility] [address] [place] [address] Dr. Krystle Heaton LYMPH # 1.6 103/ul Normal 1.2-3.8 [facility] Comment on above: Performed By: #### T 7, LIPA, TSH, AMADOU, CMP #### [facility] [address] [place] [address] Dr. Krystle Heaton Lymphocytes/100 WBC (Bld) 40.7 % Normal 20.5-60.0 [facility] Comment on above: Performed By: #### T 7, LIPA, TSH, AMADOU, CMP #### [facility] [address] [place] [address] Dr. Krystle Heaton MANUAL DIFF REQ NO Normal [facility] Comment on above: Performed By: #### T 7, LIPA, TSH, AMADOU, CMP #### [facility] [address] [place] [address] Dr. Krystle Heaton MCH (RBC) [Entitic mass] 36.2 pg Critically high 25.9-3 4.0 [facility] Comment on above: Performed By: #### T 7, LIPA, TSH, AMADOU, CMP #### [facility] [address] [place] [address] Dr. Krystle Heaton MCHC (RBC) [Mass/Vol] 34.0 g/dL Normal 29.9-35.2 [facility] Comment on above: Performed By: #### T 7, LIPA, TSH, AMADOU, CMP #### [facility] [address] [place] [address] Dr. Krystle Heaton MCV (RBC) [Entitic vol] 106.5 fL Critically high 80.0-94 .0 [facility] Comment on above: Performed By: #### T 7, LIPA, TSH, AMADOU, CMP #### [facility] [address] [place] [address] Dr. Krystle Heaton MONO # 0.3 103/ul Normal 0.3-0.8 [facility] Comment on above: Performed By: #### T 7, LIPA, TSH, AMADOU, CMP #### [facility] [address] [place] [address] Dr. Krystle Heaton Monocytes/100 WBC (Bld) 8.1 % Normal 1.7-12.0 [facility] Comment on above: Performed By: #### T 7, LIPA, TSH, AMADOU, CMP #### [facility] [address] [place] [address] Dr. Krystle Heaton NEUT # 1.9 103/ul Normal 1.4-6.5 [facility] Comment on above: Performed By: #### T 7, LIPA, TSH, AMADOU, CMP #### [facility] [address] [place] [address] Dr. Krystle Heaton Neutrophils/100 WBC (Bld) 47.2 % Normal 43.0-75.0 [facility] Comment on above: Performed By: #### T 7, LIPA, TSH, AMADOU, CMP #### [facility] [address] [place] [address] Dr. Krystle Heaton Platelet mean volume (Bld) [ Entitic vol] 11.6 fL Normal 9.5-13.5 [facility] Comment on above: Performed By: #### T 7, LIPA, TSH, AMADOU, CMP #### [facility] [address] [place] [address] Dr. Krystle Heaotn PLT 184 103/ul Normal 150-450 [facility] Comment on above: Performed By: #### T 7, LIPA, TSH, AMADOU, CMP #### [facility] [address] [place] [address] Dr. Krystle Heaton RBC 4.14 106/ul Critically low 4.70-6.10 [facility] Comment on above: Performed By: #### T 7, LIPA, TSH, AMADOU, CMP #### [facility] [address] [place] [address] Dr. Krystle Heaton WBC 4.0 103/ul Normal 4.0-11.0 [facility] Comment on above: Performed By: #### T 7, LIPA, TSH, AMADOU, CMP #### [facility] [address] [place] [address] Dr. Krystle Heaton FERRITINon 01-06-2021 Ferritin [Mass/Vol] ng/mL Critically high 17.9-464.0 [facility] Comment on above: Performed By: #### H BSANS #### [facility] [address] [place] [address] Billy Devlin CBC AUTO DIFFon 12-09-2020 BASO # 0.0 103/ul Normal 0.0-0.1 [facility] Comment on above: Performed By: #### T 7, LIPA, TSH, AMADOU, CMP #### [facility] [address] [place] [address] Dr. Krystle Heaton Basophils/100 WBC (Bld) 0.6 % Normal 0.2-2.0 [facility] Comment on above: Performed By: #### T 7, LIPA, TSH, AMADOU, CMP #### [facility] [address] [place] [address] Dr. Krystle Heaton EO # 0.1 103/ul Normal 0.0-0.7 [facility] Comment on above: Performed By: #### T 7, LIPA, TSH, AMADOU, CMP #### [facility] [address] [place] [address] Dr. Krystle Heaton Eosinophils/100 WBC (Bld) 2.6 % Normal 0.9-7.0 [facility] Comment on above: Performed By: #### T 7, LIPA, TSH, AMADOU, CMP #### [facility] [address] [place] [address] Dr. Krystle Heaton Erythrocyte distribution wid th (RBC) [Ratio] 13.0 % Normal 11.0-15.0 [facility] Comment on above: Performed By: #### T 7, LIPA, TSH, AMADOU, CMP #### [facility] [address] [place] [address] Dr. Krystle Heaton Hematocrit (Bld) [Volume fraction] 46.2 % Normal 4 2.0-54.0 [facility] Comment on above: Performed By: #### T 7, LIPA, TSH, AMADOU, CMP #### [facility] [address] [place] [address] Dr. Krystle Heaton Hemoglobin (Bld) [Mass/Vol] 16.0 g/dL Normal 14.0-18. 0 [facility] Comment on above: Performed By: #### T 7, LIPA, TSH, AMADOU, CMP #### [facility] [address] [place] [address] Dr. Krystle Heaton IG # 0.01 10e3/ul Normal 0.00-0.03 [facility] Comment on above: Performed By: #### T 7, LIPA, TSH, AMADOU, CMP #### [facility] [address] [place] [address] Dr. Krystle Heaton IG % 0.2 % Normal 0.0-0.5 [facility] Comment on above: Performed By: #### T 7, LIPA, TSH, AMADOU, CMP #### [facility] [address] [place] [address] Dr. Krystle Heaton LYMPH # 1.3 103/ul Normal 1.2-3.8 [facility] Comment on above: Performed By: #### T 7, LIPA, TSH, AMADOU, CMP #### [facility] [address] [place] [address] Dr. Krystle Heaton Lymphocytes/100 WBC (Bld) 27.8 % Normal 20.5-60.0 [facility] Comment on above: Performed By: #### T 7, LIPA, TSH, AMADOU, CMP #### [facility] [address] [place] [address] Dr. Krystle Heaton MANUAL DIFF REQ NO Normal [facility] Comment on above: Performed By: #### T 7, LIPA, TSH, AMADOU, CMP #### [facility] [address] [place] [address] Dr. Krystle Heaton MCH (RBC) [Entitic mass] 34.9 pg Critically high 25.9-3 4.0 [facility] Comment on above: Performed By: #### T 7, LIPA, TSH, AMADOU, CMP #### [facility] [address] [place] [address] Dr. Krystle Heaotn MCHC (RBC) [Mass/Vol] 34.6 g/dL Normal 29.9-35.2 [facility] Comment on above: Performed By: #### T 7, LIPA, TSH, AMADOU, CMP #### [facility] [address] [place] [address] Dr. Krystle Heaton MCV (RBC) [Entitic vol] 100.9 fL Critically high 80.0-94 .0 [facility] Comment on above: Performed By: #### T 7, LIPA, TSH, AMADOU, CMP #### [facility] [address] [place] [address] Dr. Krystle Heaton MONO # 0.3 103/ul Normal 0.3-0.8 [facility] Comment on above: Performed By: #### T 7, LIPA, TSH, AMADOU, CMP #### [facility] [address] [place] [address] Dr. Krystle Heaton Monocytes/100 WBC (Bld) 6.6 % Normal 1.7-12.0 [facility] Comment on above: Performed By: #### T 7, LIPA, TSH, AMADOU, CMP #### [facility] [address] [place] [address] Dr. Krystle Heaton NEUT # 2.9 103/ul Normal 1.4-6.5 [facility] Comment on above: Performed By: #### T 7, LIPA, TSH, AMADOU, CMP #### [facility] [address] [place] [address] Dr. Krystle Heaton Neutrophils/100 WBC (Bld) 62.2 % Normal 43.0-75.0 [facility] Comment on above: Performed By: #### T 7, LIPA, TSH, AMADOU, CMP #### [facility] [address] [place] [address] Dr. Krystle Heaton Platelet mean volume (Bld) [ Entitic vol] 11.0 fL Normal 9.5-13.5 [facility] Comment on above: Performed By: #### T 7, LIPA, TSH, AMADOU, CMP #### [facility] [address] [place] [address] Dr. Krystle Heaton PLT 171 103/ul Normal 150-450 [facility] Comment on above: Performed By: #### T 7, LIPA, TSH, AMADOU, CMP #### [facility] [address] [place] [address] Dr. Krystle Heaton RBC 4.58 106/ul Critically low 4.70-6.10 [facility] Comment on above: Performed By: #### T 7, LIPA, TSH, AMADOU, CMP #### [facility] [address] [place] [address] Dr. Krystle Heaton WBC 4.7 103/ul Normal 4.0-11.0 [facility] Comment on above: Performed By: #### T 7, LIPA, TSH, AMADOU, CMP #### [facility] [address] [place] [address] Dr. Krystle Heaton PROF 14(COMP METB)on 021 Albumin [Mass/Vol] 3.9 g/dL Normal 3.5-5.0 [facility] Comment on above: Performed By: #### T 7, LIPA, TSH, AMADOU, CMP #### [facility] [address] [place] [address] Dr. Krystle Heaton Albumin/Globulin [Mass ratio] 1.1 {ratio} Normal [facility] Comment on above: Performed By: #### T 7, LIPA, TSH, AMADOU, CMP #### [facility] [address] [place] [address] Dr. Krystle Heaton ALP [Catalytic activity/Vol] 86 U/L Normal 38-126 [facility] Comment on above: Performed By: #### T 7, LIPA, TSH, AMADOU, CMP #### [facility] [address] [place] [address] Dr. Krystle Heaton ALT [Catalytic activity/Vol] 87 U/L Critically high 21 -72 [facility] Comment on above: Performed By: #### T 7, LIPA, TSH, AMADOU, CMP #### [facility] [address] [place] [address] Dr. Krystle Heaton Anion gap [Moles/Vol] 15.7 mmol/L Normal [facility] Comment on above: Performed By: #### T 7, LIPA, TSH, AMADOU, CMP #### [facility] [address] [place] [address] Dr. Krystle Heaton AST [Catalytic activity/Vol] 70 U/L Critically high 17 -59 [facility] Comment on above: Performed By: #### T 7, LIPA, TSH, AMADOU, CMP #### [facility] [address] [place] [address] Dr. Krystle Heaton Bilirubin [Mass/Vol] 1.4 mg/dL Critically high 0.2-1.3 [facility] Comment on above: Performed By: #### T 7, LIPA, TSH, AMADOU, CMP #### [facility] [address] [place] [address] Dr. Krystle Heaton Calcium [Mass/Vol] 9.3 mg/dL Normal 8.4-10.2 [facility] Comment on above: Performed By: #### T 7, LIPA, TSH, AMADOU, CMP #### [facility] [address] [address] [address] Krystle Heaton Chloride [Moles/Vol] 102 mmol/L Normal 98-107 [facility] Comment on above: Performed By: #### T 7, LIPA, TSH, AMADOU, CMP #### [facility] [address] [place] [address] Dr. Krystle Heaton CO2 [Moles/Vol] 26.5 mmol/L Normal 22.0-30.0 [facility] Comment on above: Performed By: #### T 7, LIPA, TSH, AMADOU, CMP #### [facility] [address] [place] [address] Dr. Krystle Heaton Creatinine [Mass/Vol] 1.27 mg/dL Critically high 0.66-1.25 [facility] Comment on above: Performed By: #### T 7, LIPA, TSH, AMADOU, CMP #### [facility] [address] [place] [address] Dr. Krystle Heaton EGFR-AF ARGENTINE >60 Normal >=60 [facility] Comment on above: Performed By: #### T 7, LIPA, TSH, AMADOU, CMP #### [facility] [address] [place] [address] Dr. Krystle Heaton EGFR-NON AF ARGENTINE =60 Normal >=60 [facility] Comment on above: Performed By: #### T 7, LIPA, TSH, AMADOU, CMP #### [facility] [address] [place] [address] Dr. Krystle Heaton Globulin (S) [Mass/Vol] 3.5 g/dL Normal [facility] Comment on above: Performed By: #### T 7, LIPA, TSH, AMADOU, CMP #### [facility] [address] [place] [address] Dr. Krystle Heaton Glucose [Mass/Vol] 120 mg/dL Critically high 74-106 [facility] Comment on above: Performed By: #### T 7, LIPA, TSH, AMADOU, CMP #### [facility] [address] [place] [address] Dr. Krystle Heaton Potassium [Moles/Vol] 4.2 mmol/L Normal 3.4-5.0 [facility] Comment on above: Performed By: #### T 7, LIPA, TSH, AMADOU, CMP #### [facility] [address] [place] [address] Dr. Krystle Heaton Protein [Mass/Vol] 7.4 g/dL Normal 6.1-8.2 [facility] Comment on above: Performed By: #### T 7, LIPA, TSH, AMADOU, CMP #### [facility] [address] [place] [address] Dr. Krystle Heaton Sodium [Moles/Vol] 140 mmol/L Normal 137-145 [facility] Comment on above: Performed By: #### T 7, LIPA, TSH, AMADOU, CMP #### [facility] [address] [place] [address] Dr. Krystle Heaton Urea nitrogen [Mass/Vol] 12.0 mg/dL Normal 9.0-20.0 [facility] Comment on above: Performed By: #### T 7, LIPA, TSH, AMADOU, CMP #### [facility] [address] [place] [address] Dr. Krystle Heaton Urea nitrogen/Creatinine [Mass ratio] 9.4 mg/mg Normal [facility] Comment on above: Performed By: #### T 7, LIPA, TSH, AMADOU, CMP #### [facility] [address] [place] [address] Dr. Krystle Heaton PROTIMEon 12-09-2020 INR Coag (PPP) [Relative time] 0.96 {INR} Normal [facility] Comment on above: Performed By: #### H BSANS #### [facility] [address] [place] [address] Billy Devlin INR GUIDELINES SEE BELOW Normal [facility] Comment on above: Result Comment: MOUNA RED INR: 2.0 - 3.0 CONDITIONS NOT LISTED BELOW 2.5 - 3.5 FOR PROSTHETIC HEART VALVE REPLACEMENT 2.5 - 3.5 RECURRENT THROMBOSIS Performed By: #### H BSANS #### [facility] [address] [place], [place] [address] Billy Devlin PT Coag (PPP) [Time] 10.5 s Normal 9.0-11.6 [facility] Comment on above: Performed By: #### H ALEXANDER #### [facility] [address] [place], [place] [address] Billy Devlin US SINGLE QUAD RT UPPERon US SINGLE QUAD RT UPPER ULTRASOUND RIGHT UPPER QUADRANT HISTORY: Elevated LFTs. COMPARISON: None. FINDINGS: The liver is diffusely echogenic which limits the sensitivity for intrahepatic masses. There is no intrahepatic biliary ductal dilatation. The gallbladder appears unremarkable with no evidence for gallbladder wall thickening or pericholecystic fluid. The common bile duct measures 1.3 mm. Negative Lance's sign. The visualized portions of the pancreas appear unremarkable. The right kidney is normal appearing with no evidence of hydronephrosis or masses. IMPRESSION: Echogenic liver consistent with hepatocellular disease such as fatty infiltration. Electronically authenticated by: KRISTEN GODINEZ Date: 2020-12-09 10:23 Normal [facility] Encounters Encounter Date Encounter Type Care Provider Facility Start: 04-03-2022 End: 04-03-2022 ambulatory Magaly Sewell Facility:[facility] Start: 11-26-2021 End: 11-27-[address] GENEVIEVE ARREOLA Facility:[facility] Start: 11-15-2021 End: 11-15-[address] GENEVIEVE ARREOLA Facility:[facility] Start: 10-08-2021 End: 10-09-[address] AMADOU BROWN Facility:[facility] Start: 09-10-2021 End: 09-11-[address] AMADOU BROWN Facility:[facility] Start: 08-15-2021 End: 08-16-[address] AMADOU BROWN Facility:[facility] Start: 08-13-2021 Encounter for preprocedural laboratory examination DR DOCTOR PALUMBO [facility] Start: 08-10-2021 AUDIT No PCP None [facility] Work Phone: Start: 08-02-2021 Chart Update No PCP None [facility] Work Phone: Start: 07-28-2021 End: 07-29-[address] DOCTOR PALUMBO Facility:[facility] Start: 07-28-2021 End: 07-29-2021 Encounter for preprocedural laboratory examination DR DOCTOR PALUMBO Facility:[facility] Start: 07-13-2021 AUDIT No PCP None [facility] Work Phone: Start: 07-09-2021 End: 07-10-[address] AMADOU BROWN Facility:[facility] Start: 06-11-2021 End: 07-11-[address] AMADOU BROWN Facility:[facility] Start: 05-28-2021 End: 06-10-[address] AMADOU BROWN Facility:[facility] Start: 05-15-2021 End: 05-16-[address] AMADOU BROWN Facility:[facility] Start: 05-01-2021 End: 05-02-[address] GENEVIEVE ARREOLA Facility:[facility] Start: 04-13-2021 End: 05-10-[address] GENEVIEVE ARREOLA Facility:[facility] Start: 04-10-2021 AUDIT No PCP None [facility] Work Phone: Start: 04-10-2021 Office outpatient ne w 45 minutes No PCP None [facility] Work Phone: Start: 04-06-2021 End: 04-07-[address] GENEVIEVE AREROLA Facility:[facility] Start: 03-30-2021 End: 03-31-[address] GENEVIEVE ARREOLA Facility:[facility] Start: 03-22-2021 End: 03-23-[address] GENEVIEVE ARREOLA Facility:[facility] Start: 03-17-2021 End: 03-18-[address] AMADOU BROWN Facility:[facility] Start: 03-08-2021 End: 03-09-[address] AMADOU BROWN Facility:[facility] Start: 02-13-2021 End: 02-14-[address] RASCON LISTED REQUEST Facility:[facility] Start: 02-03-2021 End: 02-04-[address] AMADOU BROWN Facility:[facility] Start: 01-22-2021 End: 01-23-[address] GENEVIEVE ARREOLA Facility:[facility] Start: 01-09-2021 End: 01-09-[address] GENEVIEVE ARREOLA Facility:[facility] Start: 01-06-2021 End: 01-07-[address] AMADOU BROWN Facility:[facility] Start: 12-09-2020 End: 12-10-[address] Teresa BANKS Facility:[facility] Evaluation finding No PCP None [facility] [address] [facility] Work Phone: Procedures Date Procedure Procedure Detail Performing Clinician Biopsy of liver No PCP None Repair of musculoten dinous cuff of shoulder No PCP None Payers Date Payer Category Payer Unknown [id number] 2.16.84 [id number] 1969 Unknown [id number] 2.16.84 0.1.531277.3.579.2.59 1969 Unknown [id number] 2.16.84 0.1.721947.3.579.2.59 1969 Unknown [id number] 2.16.84 0.1.317129.3.579.2. 1969 Unknown [id number] 2.16.84 0.1.178473.3.579.2.593 1969 Unknown [id number] 2.16.84 0.1.317359.3.579.2.59 1969 Unknown [id number] 2.16.84 0.1.558556.3.579.2.59 1969 Unknown [id number] 2.16.84 0.1.177814.3.579.2.59 1969 Unknown [id number] 2.16.84 0.1.185693.3.579.2.593 1969 Unknown [id number] 2.16.84 0.1.757017.3.579.2.59 1969 Unknown [id number] 2.16.84 0.1.711541.3.579.2.593 1969 Unknown [id number] 2.16.84 0.1.138805.3.579.2.593 1969 Unknown [id number] 2.16.84 0.1.779026.3.579.2.593 1969 Unknown [id number] .16.84 0.1.506190.3.579.2.593 1969 Unknown [id number] .16.84 0.1.248099.3.579.2.593 1969 Unknown [id number] .16.84 0.1.990617.3.579.2.593 1969 Unknown [id number] .16.84 0.1.087314.3.579.2.593 1969 Unknown [id number] .16.84 0.1.602281.3.579.2.593 1969 Unknown [id number] .16.84 0.1.465874.3.579.2.593 1969 Unknown [id number] .16.84 0.1.990594.3.579.2.593 1969 Unknown [id number] .16.84 0.1.435094.3.579.2.593 1969 Unknown [id number] .16.84 0.1.025813.3.579.2.593 1959 Self-pay [id number] 1959 Self-pay 1959 Unknown [id number] Unknown ANTHEM Unknown [id number] 2.16.84 0.1.427192.3.579.2.593 Unknown [id number] .16.84 0.1.284734.3.579.2.593 Unknown [id number] .16.8 40.1.925468.3.579.2.531 Social History Date Type Detail Facility Former smoker Former smoker [facility] [address] [facility] Work Phone: Start: 1970 Sex Assigned At Male F [facility] Clinical Note 07-31-2021 Note Date & Type Note Facility 07-31-2021 Note Pre-procedure Verifi cation and Time Out: Pre-Procedure Verification and Time Out: Procedure Locationprocedure area HUDDLE - Pre-procedure Verificationcompleted TIME OUT - Final Verificationcompleted immediately prior to procedure start DEBRIEFcompleted General Information: Anesthesia Critical Care: Non-Anesthesia Date/Time of Procedure: 31-Jul-2021 16:11 Post-Procedure Diagnosis: sp liver biopsy Procedure Name: Us guided liver biopsy Findings: see PACS report Procedure performed by: Sandy Roland MD Np(s): Dee Lopes Md Estimated Blood Loss (mL): none Specimen: yes. 3x18g core biopsy of the left hepatic lobe Informed Consent: written consent obtained Procedure Details: Procedure Details: The patient was identified at the initial medical timeout. Informed consent, including a discussion of the risks (including the risk of bleeding that may require blood products), benefits, and alternatives, was obtained from the patient. Patient's vitals were monitored throughout the procedure by a radiology nurse. Screening evaluation of the left hepatic lobe demonstrates increased echogenicity of the liver without any evidence of biliary dilatation. Patient withas placed in supine position. The optimal access tract was first determined. Following standard sterile prep and drape, local as well as deep anesthesia was administered using 1% lidocaine. Thereafter, 3 non targeted random core biopsy samples of the lateral segment of the left hepatic lobe were obtained using an 18 gauge cutting needle advanced via a 17 gauge introducer needle in a coaxial fashion. Specimen appeared grossly adequate and was dropped in formalin. Scanning after each pass demonstrated no evidence of bleeding. Access tract was closed with Gel-Foam pledgets. The patient tolerated the procedure well and without immediate complications. Tolerance: good Attestation: Note Completion: I am a:Resident/Fellow Attending AttestationI was present for the entire procedure Electronic Signatures: Sandy Roland) (Signed 02-Aug-2021 13:04) Co-Signer: General Information, Procedure Details, Pre-procedure Verification and Time Out, Note Completion Dee Lopes (Resident)) (Signed 31-Jul-2021 16:14) Authored: General Information, Procedure Details, Pre-procedure Verification and Time Out, Note Completion Last Updated: 02-Aug-2021 13:04 by Sandy Roalnd) [facility] Clinical Note 05-08-2021 Note Date & Type Note Facility 05-08-2021 Note Pre-procedure Verifi cation and Time Out: Pre-Procedure Verification and Time Out: Procedure Locationprocedure area HUDDLE - Pre-procedure Verificationcompleted TIME OUT - Final Verificationcompleted DEBRIEFcompleted General Information: Anesthesia Critical Care: Non-Anesthesia Date/Time of Procedure: 08-May-2021 11:57 Post-Procedure Diagnosis: same Procedure Name: CT Liver Biopsy Findings: grossly normal anatomy Procedure performed by: Np(s): none Estimated Blood Loss (mL): none Specimen: yes Indication(s): Hemochromatosis Informed Consent: written consent obtained Prep: Patient Position: supine Site Prep: with chlorhexidine, draped, usual sterile procedure followed Anesthesia: Anesthesia: local Attestation: Note Completion: Attending AttestationI performed the procedure without a resident Electronic Signatures: Uri Bacon) (Signed 08-May-2021 11:58) Authored: Pre-procedure Verification and Time Out, General Information, Prep/Sedation, Note Completion Last Updated: 08-May-2021 11:58 by Uri Bacon) [facility] Evaluation note Note Date & Type Note Facility Evaluation note No assessment information [facility] Work Phone: History of Present illness Narrative Note Date & Type Note Facility History of Present illness Narrative 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 He is also noted to have elevated ALT. ferritin has not improved some per his referring physician and remains over 1000. it is clear that he has a history of heavy alcohol use though this has been reduced more recently (unclear to what extent). He denies cognitive impairment or fluid overload.Upper Gastrointestinal: no abdominal pain, no eructation, no difficulty swallowing, no early satiety, no heartburn, no jaundiced, no nausea, no pain while swallowing, no regurgitation, no vomiting.Lower Gastrointestinal: no abdominal swelling, no bloating, no constipation, no diarrhea, no fecal incontinence, no bowel urgency, no steatorrhea.Liver Disease no alteration in sleep wake cycle, no ankle swelling, no cognitive impairment, no confusion, no icterus, no increase in abdominal girth, no jaundice, no lower extremity edema.Symptom History:Modifying Factors:Associated Symptoms: [facility] Work Phone: Chief Complaint * A telephone visit (audio only) between the patient (at the originating site) and the provider (at the distant site) was utilized to provide this telehealth service. * hemochromatosis Summary Purpose Family History Relationship Condition Age at Onset Recorded Date/T bear Not Specified Heart disease Unknown Diabetes mellitus Unknown father Small cell malignant neoplasm of lung in adult Unknown No Family History Records Found Advance Directives No Advanced Directives Records FoundNo Advanced Directives Records FoundNo Advanced Directives Records FoundNo Advanced Directives Records FoundNo Advanced Directives Records FoundNo Advanced Directives Records Found Additional Source Comments (unrecognized sect ion and content) No Status Records FoundNo Status Records FoundNo Status Records FoundNo Status Records FoundNo Status Records FoundNo Status Records Found INFORMATION SOURCE (unrecogn ized section and content) DATE CREATED AUTHOR 04/14/2021 [employer] DATE CREATED AUTHOR AUTHOR'S ORGANIZ ATION 05/15/2021 [facility] DATE CREATED AUTHOR AUTHOR'S ORGANIZ ATION 11/29/2021 [facility] DATE CREATED AUTHOR AUTHOR'S ORGANIZ ATION 04/15/2022 [facility] DATE CREATED AUTHOR AUTHOR'S ORGANIZ ATION 01/28/2023 [facility] DATE CREATED AUTHOR AUTHOR'S ORGANIZ ATION 05/24/2023 [facility] Goals (unrecognized section and content) Goals may be documented in a n alternate section FOR RECORDS PERTAINING TO PATIENTS WHO ARE OR HAVE BEEN ENROLLED IN A CHEMICAL DEPENDENCY/SUBSTANCEABUSE PROGRAM, SOME INFORMATION MAY BE OMITTED. This clinical summary was aggregated from multiple sources. Caution should be exercised in using it in the provision of clinical care. This summary normalizes information from multiple sources, and as a consequence, information in this document may materially change the coding, format and clinical context of patient data. In addition, data may be omitted in some cases. CLINICAL DECISIONS SHOULD BE BASED ON THE PRIMARY CLINICAL RECORDS. [facility] [employer] [facility]. provides no warranty or guarantee of the accuracy or completeness of information in this document.
== END 2023-09-17 14:47 | disposition home or self-care (01) ==
LOC: LAB 14:46
PROVIDERS: PCP Family Medicine; Visit Provider Family Medicine
DX: E03.9 Hypothyroidism, unspecified (principal); D69.6 Thrombocytopenia, unspecified
CPT/HCPCS: 36415; 84436; 84443; 84481

== ENCOUNTER 2024-04-13 08:42 | Outpatient (OUT) | payer OTHER, SELFPAY ==
[2024-04-13 08:58] LABS: Basophils Percent Auto 0.1 % (0.2-2.0); Hematocrit 42.6 % (42.0-54.0); Hemoglobin 14.1 g/dL (14.0-18.0); Immature Granulocytes Abs Auto 0.02 10^3/uL (0.00-0.03); Immature Granulocytes Pct Auto 0.2 % (0.0-0.5); Lymphocytes Absolute Auto 0.7 10^3/uL (1.2-3.8); Lymphocytes Percent Auto 9.2 % (20.5-60.0); Mean Corpuscular HGB Conc 33.1 g/dL (29.9-35.2); Mean Corpuscular Hemoglobin 32.7 pg (25.9-34.0); Mean Corpuscular Volume 98.8 fL (80.0-94.0); Mean Platelet Volume 11.4 fL (9.5-13.5); Monocytes Absolute Auto 0.3 10^3/uL (0.3-0.8); Monocytes Percent Auto 3.7 % (1.7-12.0); Neutrophils Percent Auto 86.8 % (43.0-75.0); Platelet Count 163 10^3/uL (150-450); Red Blood Count 4.31 10^6/uL (4.70-6.10); Red Cell Distribution Width 12.2 % (11.0-15.0); White Blood Count 8.1 10^3/uL (4.0-11.0)
[2024-04-13 09:48] LABS: Alanine Aminotransferase 25 U/L (16-63); Albumin Globulin Ratio 0.6; Alkaline Phosphatase 146 U/L (46-116); Anion Gap 14.3; Aspartate Amino Transferase 32 U/L (15-37); BUN Creatinine Ratio 6.1; Bilirubin Total 1.9 mg/dL (0.2-1.0); Calcium 9.5 mg/dL (8.5-10.1); Carbon Dioxide 24.7 mmol/L (21.0-32.0); Chloride 103 mmol/L (98-107); Chol HDL Ratio 3.5; Cholesterol 181 mg/dL (<=200); Estimated GFR (African America >60 (>=60); Estimated GFR (Non-African Ame >60 (>=60); Globulin 5.1 g/dL; Glucose 126 mg/dL (74-106); HDL Cholesterol 52 mg/dL (40-60); LDL Cholesterol Calculated 117.2 mg/dL; Sodium 138 mmol/L (136-145); Total Protein 8.1 g/dL (6.4-8.2); Triglycerides 59 mg/dL (<=150); VLDL CHOLESTEROL 11.8 mg/dL
[2024-04-14 16:10] LABS: Thyroglobulin Antibody <1.0 IU/mL (0.0-0.9); Thyroid Peroxidase (TPO) Ab 16 IU/mL (0-34)
== END 2024-04-13 08:43 | disposition home or self-care (01) ==
LOC: LAB 08:42
PROVIDERS: PCP Family Medicine; Visit Provider Family Medicine
DX: R74.8 Abnormal levels of other serum enzymes (principal); K76.0 Fatty (change of) liver, not elsewhere classified; I10 Essential (primary) hypertension; E03.9 Hypothyroidism, unspecified
CPT/HCPCS: 36415; 80053; 80061; 85025; 86376; 86800

== ENCOUNTER 2024-06-15 09:32 | Outpatient (OUT) | payer OTHER, SELFPAY ==
--- OUTSIDE RECORDS SUMMARY | 2024-06-15 09:37 | XMS_ITS | CCD ---
Author Organization [facility]ly [facility] Care Team Providers Care Housing Management Officer Name Role Phone None, No PCP Unavailable Unavailable STEPHANIE, DR AMADOU Chang Attending Unavailable STEPHANIE, DR AMADOU Chang Consulting Unavailable STEPHANIE, DR AMADOU Chang Admitting Unavailable MAXWELL, DR VALLEJO Primary Care Unavailable DARREN, DR Teresa Alcala Admitting Unavailable DARREN, DR Teresa Alcala Attending Unavailable MAXWELL, DR VALLEJO Primary Care Unavailable MAXWELL, DR VALLEJO Consulting Unavailable DARREN, DR Teresa Alcala Consulting Unavailable Policaro Kristen Consulting Unavailable MAXWELL, DR VALLEJO Admitting Unavailable [...] VALLEJO Primary Care Unavailable MAXWELL, DR VALLEJO Admitting Unavailable MAXWELL, DR VALLEJO Attending Unavailable MAXWELL, DR VALLEJO Primary Care Unavailable MAXWELL, DR VALLEJO Consulting Unavailable MAXWELL, DR VALLEJO [...] HOY, DR VALLEJO Primary Care Unavailable REQUEST, NONE LISTED Consulting Unavaila ble MAXWELL, DR VALLEJO [...] Unavailable STEPHANIE, DR AMADOU Chang Admitting Unavailable MAXWELL, DR VALLEJO Primary Care Unavailable STEPHANIE, DR AMADOU Chang Attending Unavailable HOY, DR VALLEJO Primary Care Unavailable REQUEST, NONE LISTED Consulting Unavaila ble REQUEST, DR NONE LISTED Admitting Unavaila ble REQUEST, NONE LISTED Attending Unavaila ble Magaly Sewell Attending Unavail Matheus Moore Referring UnavailGenevieve Hernandez Primary Care Unavailable Magaly Sewell Admitting Unavail DARIEN Miranda Attending Unavailable RASHAWN VELÁZQUEZ Attending Unavailable Allergies Allergy Classification Reported Allergen(s) Allergy Type Date of Onset Reaction(s) Facility (2 sources) Morphine Drug Allergy 2 Swelling of the Eye [facility] Repository (1 source) Morphine Drug Allergy 2 [facility] Repository Medications Current Medications Medication Drug [...] Chronic Disorders of lipid metabolism (1 source) Hypercholesterolemia; Translations: [Pure hypercholesterolemia, unspecified] 12-13-2020 Chronic Essential hypertension (5 sources) [...] Results Test Name Value Interpretation Reference Range Facility In office Testingon 01-29-20 23 In office Testing [id number] Normal [facility] AMYLASEon 11-26-2021 Amylase [Catalytic activity/Vol] 53 U/L Normal 31-110 [facility] Comment on above: Performed By: #### T 7, LIPA, TSH, AMADOU, CMP #### [facility] [address] [place] [id number] [address] Krystle Heaton CBC AUTO DIFFon 11-26-2021 BASO # 0.0 103/ul Normal 0.0-0.1 [facility] Comment on above: Performed By: #### F ERR #### [facility] [address] [place] [address] Dr. Krystle Heaton Basophils/100 WBC (Bld) 0.6 % Normal 0.2-2.0 [facility] Comment on above: Performed By: #### F ERR #### [facility] [address] [place] [address] Dr. Krystle Heaton EO # 0.1 103/ul Normal 0.0-0.7 [facility] Comment on above: Performed By: #### F ERR #### [facility] [address] [place] [address] Dr. Krystle Heaton Eosinophils/100 WBC (Bld) 2.7 % Normal 0.9-7.0 [facility] Comment on above: Performed By: #### F ERR #### [facility] [address] [place] [address] Dr. Krystle Heatno Erythrocyte distribution width (RBC) [Ratio] 16.0 % Critically high 11.0-15.0 [facility] Comment on above: Performed By: #### F ERR #### [facility] [address] [place] [address] Dr. Krystle Heaton Hematocrit (Bld) [Volume fraction] 42.8 % Normal 42.0-54.0 [facility] Comment on above: Performed By: #### F ERR #### [facility] [address] [place] [address] Dr. Krystle Heaton Hemoglobin (Bld) [Mass/Vol] 13.0 g/dL Critically low 14.0-18.0 [facility] Comment on above: Performed By: #### F ERR #### [facility] [address] [place] [address] Dr. Krystle Heaton IG # 0.02 10e3/ul Normal 0.00-0.03 [facility] Comment on above: Performed By: #### F ERR #### [facility] [address] [place] [address] Dr. Krystle Heaton IG % 0.4 % Normal 0.0-0.5 [facility] Comment on above: Performed By: #### F ERR #### [facility] [address] [place], [place] [id number] Dr. Krystle Heaton LYMPH # 0.9 103/ul Critically low 1.2-3.8 [facility] Comment on above: Performed By: #### F ERR #### [facility] [address] [place] [address] Dr. Krystle Heaton Lymphocytes/100 WBC (Bld) 19.1 % Critically low 20.5-60.0 [facility] Comment on above: Performed By: #### F ERR #### [facility] [address] [place] [address] Dr. Krystle Heaton MANUAL DIFF REQ NO Normal [facility] Comment on above: Performed By: #### F ERR #### [facility] [address] [place] [address] Dr. Krystle Heaton MCH (RBC) [Entitic mass] 27.7 pg Normal 25.9-34.0 [facility] Comment on above: Performed By: #### F ERR #### [facility] [address] [place] [address] Dr. Krystle Heaton MCHC (RBC) [Mass/Vol] 30.4 g/dL Normal 29.9-35.2 [facility] Comment on above: Performed By: #### F ERR #### [facility] [address] [place] [address] Dr. Krystle Heaton MCV (RBC) [Entitic vol] 91.1 fL Normal 80.0-94.0 [facility] Comment on above: Performed By: #### F ERR #### [facility] [address] [place] [address] Dr. Krystle Heaton MONO # 0.5 103/ul Normal 0.3-0.8 [facility] Comment on above: Performed By: #### F ERR #### [facility] [address] [place] [address] Dr. Krystle Heaton Monocytes/100 WBC (Bld) 10.4 % Normal 1.7-12.0 [facility] Comment on above: Performed By: #### F ERR #### [facility] [address] [place] [address] Dr. Krystle Heaton NEUT # 3.2 103/ul Normal 1.4-6.5 [facility] Comment on above: Performed By: #### F ERR #### [facility] [address] [place] [address] Dr. Krystle Heaton Neutrophils/100 WBC (Bld) 66.8 % Normal 43.0-75.0 [facility] Comment on above: Performed By: #### F ERR #### [facility] [address] [place] [address] Dr. Krystle Heaton Platelet mean volume (Bld) [Entitic vol] 11.3 fL Normal 9.5-13.5 [facility] Comment on above: Performed By: #### F ERR #### [facility] [address] [place] [address] Dr. Krystle Heaton PLT 177 103/ul Normal 150-450 [facility] Comment on above: Performed By: #### F ERR #### [facility] [address] [place] [address] Dr. Krystle Heaton RBC 4.70 106/ul Normal 4.70-6.10 [facility] Comment on above: Performed By: #### F ERR #### [facility] [address] [place] [address] Dr. Krystle Heaton WBC 4.8 103/ul Normal 4.0-11.0 [facility] Comment on above: Performed By: #### F ERR #### [facility] [address] [place] [address] Dr. Krystle Heaton FERRITINon 11-26-2021 Ferritin [Mass/Vol] 63.0 ng/mL Normal 17.9-464.0 [facility] Comment on above: Performed By: #### C BC #### [facility] [address] [place] [address] Billy Devlin FREE THYROXINE INDEX T7on FTI 2.14 Normal [facility] Comment on above: Performed By: #### T 7, LIPA, TSH, AMADOU, CMP #### [facility] [address] [place] [address] Dr. Krystle Heaton T3U 34.0 % Normal 23.5-40.5 [facility] Comment on above: Performed By: #### T 7, LIPA, TSH, AMADOU, CMP #### [facility] [address] [place] [address] Dr. Krystle Heaton T4 [Mass/Vol] 6.30 ug/dL Normal 5.53-11.00 [facility] Comment on above: Performed By: #### T 7, LIPA, TSH, AMADOU, CMP #### [facility] [address] [place] [address] Dr. Krystle Heaton LIPASEon 11-26-2021 Lipase [Catalytic activity/Vol] 115.0 U/L Normal 23.0-300.0 [facility] Comment on above: Performed By: #### T 7, LIPA, TSH, AMADOU, CMP #### [facility] [address] [place] [address] Dr. Krystle Heaton PROF 14(COMP METB)on 022 Albumin [Mass/Vol] 3.6 g/dL Normal 3.5-5.0 [facility] Comment on above: Performed By: #### T 7, LIPA, TSH, AMADOU, CMP #### [facility] [address] [place] [address] Dr. Krystle Heaton Albumin/Globulin [Mass ratio] 0.9 {ratio} Normal [facility] Comment on above: Performed By: #### T 7, LIPA, TSH, AMADOU, CMP #### [facility] [address] [place] [address] Dr. Krystle Heaton ALP [Catalytic activity/Vol] 94 U/L Normal 38-126 [facility] Comment on above: Performed By: #### T 7, LIPA, TSH, AMADOU, CMP #### [facility] [address] [place] [address] Dr. Krystle Haeton ALT [Catalytic activity/Vol] 103 U/L Critically high 21-72 [facility] Comment on above: Performed By: #### T 7, LIPA, TSH, AMADOU, CMP #### [facility] [address] [place] [address] Dr. Krystle Heaton Anion gap [Moles/Vol] 12.8 mmol/L Normal [facility] Comment on above: Performed By: #### T 7, LIPA, TSH, AMADOU, CMP #### [facility] [address] [place] [address] Dr. Krystle Heaton AST [Catalytic activity/Vol] 148 U/L Critically high 17-59 [facility] Comment on above: Performed By: #### T 7, LIPA, TSH, AMADOU, CMP #### [facility] [address] [place] [address] Dr. Krystle Heaton Bilirubin [Mass/Vol] 1.2 mg/dL Normal 0.2-1.3 [facility] Comment on above: Performed By: #### T 7, LIPA, TSH, AMADOU, CMP #### [facility] [address] [place] [address] Dr. Krystle Heaton Calcium [Mass/Vol] 9.1 mg/dL Normal 8.4-10.2 [facility] Comment on above: Performed By: #### T 7, LIPA, TSH, AMADOU, CMP #### [facility] [address] [place] [address] Dr. Krystle Heaton Chloride [Moles/Vol] 100 mmol/L Normal 98-107 [facility] Comment on above: Performed By: #### T 7, LIPA, TSH, AMADOU, CMP #### [facility] [address] [place] [address] Dr. Krystle Heaton CO2 [Moles/Vol] 26.7 mmol/L Normal 22.0-30.0 [facility] Comment on above: Performed By: #### T 7, LIPA, TSH, AMADOU, CMP #### [facility] [address] [place] [address] Dr. Krystle Heaton Creatinine [Mass/Vol] 0.94 mg/dL Normal 0.66-1.25 [facility] Comment on above: Performed By: #### T 7, LIPA, TSH, AMADOU, CMP #### [facility] [address] [place] [address] Dr. Krystle Heaton EGFR-AF TUVALUAN >60 Normal >=60 [facility] Comment on above: Performed By: #### T 7, LIPA, TSH, AMADOU, CMP #### [facility] [address] [place] [address] Dr. Krystle Heaton EGFR-NON AF TUVALUAN >60 Normal >=60 [facility] Comment on above: Performed By: #### T 7, LIPA, TSH, AMADOU, CMP #### [facility] [address] [place] [address] Dr. Krystle Heaton Globulin (S) [Mass/Vol] 4.0 g/dL Normal [facility] Comment on above: Performed By: #### T 7, LIPA, TSH, AMADOU, CMP #### [facility] [address] [place] [address] Dr. Krystle Heaton Glucose [Mass/Vol] 112 mg/dL Critically high 74-106 [facility] Comment on above: Performed By: #### T 7, LIPA, TSH, AMADOU, CMP #### [facility] [address] [place] [address] Dr. Krystle Heaton Potassium [Moles/Vol] 4.5 mmol/L Normal 3.4-5.0 [facility] Comment on above: Performed By: #### T 7, LIPA, TSH, AMADOU, CMP #### [facility] [address] [place] [address] Dr. Krystle Heaton Protein [Mass/Vol] 7.6 g/dL Normal 6.1-8.2 [facility] Comment on above: Performed By: #### T 7, LIPA, TSH, AMADOU, CMP #### [facility] [address] [place] [address] Dr. Krystle Heaton Sodium [Moles/Vol] 135 mmol/L Critically low 137-145 [facility] Comment on above: Performed By: #### T 7, LIPA, TSH, AMADOU, CMP #### [facility] [address] [place] [address] Dr. Krystle Heaton Urea nitrogen [Mass/Vol] 5.0 mg/dL Critically low 9.0-20.0 [facility] Comment on above: Performed By: #### T 7, LIPA, TSH, AMADOU, CMP #### [facility] [address] [place] [address] Dr. Krystle Heaton Urea nitrogen/Creatinine [Mass ratio] 5.3 mg/mg Normal [facility] Comment on above: Performed By: #### T 7, LIPA, TSH, AMADOU, CMP #### [facility] [address] [place] [address] Dr. Krystle Heaton TSHon 11-26-2021 TSH 1.842 uIU/mL Normal 0.470-4.680 [facility] Comment on above: Performed By: #### T 7, LIPA, TSH, AMADOU, CMP #### [facility] [address] [place] [address] Dr. Krystle Heaton TSH RANGE SEE BELOW Normal [facility] Comment on above: Result Comment: <0.3 4 UIU/ml HYPERTHYROID 0.34-5.60 UIU/ml EUTHYROID >5.60 UIU/ml HYPOTHYROID Performed By: #### T 7, LIPA, TSH, AMADOU, CMP #### [facility] [address] [place] [address] Dr. Krystle Heaton [facility]on SARS-CoV-2 (COVID-19) RNA JIMBO+probe Ql (Unsp spec) Not detected Normal NOT DETECTED [facility] Comment on above: Result Comment: This test is not yet approved or cleared by the [place] FDA. When there are no FDA-approved or cleared tests available, and other criteria are met, FDA can make tests available under an emergency access mechanism called an Emergency Use Authorization (EUA). The EUA for this test is supported by the [place] of Health and Human Service's (HHS's) declaration [...] SARS-CoV-2. Performed By: #### F ERR #### [facility] [address] [place] [address] Dr. Krystle Heaton CBC AUTO DIFFon 10-08-2021 BASO # 0.0 103/ul Normal 0.0-0.1 [facility] Comment on above: Performed By: #### T 7, LIPA, TSH, AMADOU, CMP #### [facility] [address] [place] [address] Dr. Krystle Heaton Basophils/100 WBC (Bld) 0.7 % Normal 0.2-2.0 [facility] Comment on above: Performed By: #### T 7, LIPA, TSH, AMADOU, CMP #### [facility] [address] [place] [address] Dr. Krystle Heaton EO # 0.2 103/ul Normal 0.0-0.7 [facility] Comment on above: Performed By: #### T 7, LIPA, TSH, AMADOU, CMP #### [facility] [address] [place] [address] Dr. Krystle Heaton Eosinophils/100 WBC (Bld) 3.6 % Normal 0.9-7.0 [facility] Comment on above: Performed By: #### T 7, LIPA, TSH, AMADOU, CMP #### [facility] [address] [place] [address] Dr. Krystle Heaton Erythrocyte distribution width (RBC) [Ratio] 16.0 % Critically high 11.0-15.0 [facility] Comment on above: Performed By: #### T 7, LIPA, TSH, AMADOU, CMP #### [facility] [address] [place] [address] Dr. Krystle Heaton Hematocrit (Bld) [Volume fraction] 38.7 % Critically low 42.0-54.0 [facility] Comment on above: Performed By: #### T 7, LIPA, TSH, AMADOU, CMP #### [facility] [address] [place] [address] Dr. Krystle Heaton Hemoglobin (Bld) [Mass/Vol] 11.7 g/dL Critically low 14.0-18.0 [facility] Comment on above: Performed By: #### T 7, LIPA, TSH, AMADOU, CMP #### [facility] [address] [place] [address] Dr. Krystle Heaton IG # 0.01 10e3/ul Normal 0.00-0.03 [facility] Comment on above: Performed By: #### T 7, LIPA, TSH, AMADOU, CMP #### [facility] [address] [place] [address] Dr. Krystle Heaton IG % 0.2 % Normal 0.0-0.5 [facility] Comment on above: Performed By: #### T 7, LIPA, TSH, AMADOU, CMP #### [facility] [address] [place] [address] Dr. Krystle Heaton LYMPH # 1.6 103/ul Normal 1.2-3.8 [facility] Comment on above: Performed By: #### T 7, LIPA, TSH, AMADOU, CMP #### [facility] [address] [place] [address] Dr. Krystle Heaton Lymphocytes/100 WBC (Bld) 29.2 % Normal 20.5-60.0 [facility] Comment on above: Performed By: #### T 7, LIPA, TSH, AMADOU, CMP #### [facility] [address] [place] [address] Dr. Krystle Heaton MANUAL DIFF REQ NO Normal [facility] Comment on above: Performed By: #### T 7, LIPA, TSH, AMADOU, CMP #### [facility] [address] [place] [address] Dr. Krystle Heaton MCH (RBC) [Entitic mass] 27.7 pg Normal 25.9-34.0 [facility] Comment on above: Performed By: #### T 7, LIPA, TSH, AMADOU, CMP #### [facility] [address] [place] [address] Dr. Krystle Heaton MCHC (RBC) [Mass/Vol] 30.2 g/dL Normal 29.9-35.2 [facility] Comment on above: Performed By: #### T 7, LIPA, TSH, AMADOU, CMP #### [facility] [address] [place] [address] Dr. Krystle Heaton MCV (RBC) [Entitic vol] 91.5 fL Normal 80.0-94.0 [facility] Comment on above: Performed By: #### T 7, LIPA, TSH, AMADOU, CMP #### [facility] [address] [place] [address] Dr. Krystle Heaton MONO # 0.6 103/ul Normal 0.3-0.8 [facility] Comment on above: Performed By: #### T 7, LIPA, TSH, AMADOU, CMP #### [facility] [address] [place] [address] Dr. Krystle Heaton Monocytes/100 WBC (Bld) 10.5 % Normal 1.7-12.0 [facility] Comment on above: Performed By: #### T 7, LIPA, TSH, AMADOU, CMP #### [facility] [address] [place] [address] Dr. Krystle Heaton NEUT # 3.1 103/ul Normal 1.4-6.5 [facility] Comment on above: Performed By: #### T 7, LIPA, TSH, AMADOU, CMP #### [facility] [address] [place] [address] Dr. Krystle Heaton Neutrophils/100 WBC (Bld) 55.8 % Normal 43.0-75.0 [facility] Comment on above: Performed By: #### T 7, LIPA, TSH, AMADOU, CMP #### [facility] [address] [place] [address] Dr. Krystle Heaton Platelet mean volume (Bld) [Entitic vol] 10.9 fL Normal 9.5-13.5 [facility] Comment on above: Performed By: #### T 7, LIPA, TSH, AMADOU, CMP #### [facility] [address] [place] [address] Dr. Krystle Heaton PLT 214 103/ul Normal 150-450 [facility] Comment on above: Performed By: #### T 7, LIPA, TSH, MAADOU, CMP #### [facility] [address] [place] [address] Dr. Krystle Heaton RBC 4.23 106/ul Critically low 4.70-6.10 [facility] Comment on above: Performed By: #### T 7, LIPA, TSH, AMADOU, CMP #### [facility] [address] [place] [address] Dr. Krystle Heaton WBC 5.5 103/ul Normal 4.0-11.0 [facility] Comment on above: Performed By: #### T 7, LIPA, TSH, AMADOU, CMP #### [facility] [address] [place] [address] Dr. Krystle Heaton FERRITINon 10-08-2021 Ferritin [Mass/Vol] 59.0 ng/mL Normal 17.9-464.0 [facility] Comment on above: Performed By: #### T 7, LIPA, TSH, AMADOU, CMP #### [facility] [address] [place] [address] Dr. Krystle Heaton CBC AUTO DIFFon 09-10-2021 BASO # 0.0 103/ul Normal 0.0-0.1 [facility] Comment on above: Performed By: #### C BC #### [facility] [address] [place] [address] Billy Quita Basophils/100 WBC (Bld) 0.8 % Normal 0.2-2.0 [facility] Comment on above: Performed By: #### C BC #### [facility] [address] [place] [address] Billy Quita EO # 0.1 103/ul Normal 0.0-0.7 [facility] Comment on above: Performed By: #### C BC #### [facility] [address] [place] [address] Billy Quita Eosinophils/100 WBC (Bld) 3.5 % Normal 0.9-7.0 [facility] Comment on above: Performed By: #### C BC #### [facility] [address] [place] [address] Billy Quita Erythrocyte distribution width (RBC) [Ratio] 16.7 % Critically high 11.0-15.0 [facility] Comment on above: Performed By: #### C BC #### [facility] [address] [place] [address] Billy Quita Hematocrit (Bld) [Volume fraction] 40.6 % Critically low 42.0-54.0 [facility] Comment on above: Performed By: #### C BC #### [facility] [address] [place] [address] Billy Quita Hemoglobin (Bld) [Mass/Vol] 12.4 g/dL Critically low 14.0-18.0 [facility] Comment on above: Performed By: #### C BC #### [facility] [address] [place] [address] Billy Quita IG # 0.01 10e3/ul Normal 0.00-0.03 [facility] Comment on above: Performed By: #### C BC #### [facility] [address] [place] [address] Billy Quita IG % 0.3 % Normal 0.0-0.5 [facility] Comment on above: Performed By: #### C BC #### [facility] [address] [place] [address] Billy Quita LYMPH # 1.5 103/ul Normal 1.2-3.8 [facility] Comment on above: Performed By: #### C BC #### [facility] [address] [place] [address] Billy Devlin Lymphocytes/100 WBC (Bld) 39.7 % Normal 20.5-60.0 [facility] Comment on above: Performed By: #### C BC #### [facility] [address] [place] [address] Billy Devlin MANUAL DIFF REQ NO Normal [facility] Comment on above: Performed By: #### C BC #### [facility] [address], [place] [address] Billy Devlin MCH (RBC) [Entitic mass] 27.6 pg Normal 25.9-34.0 [facility] Comment on above: Performed By: #### C BC #### [facility] [address] [id number] Billy Devlin MCHC (RBC) [Mass/Vol] 30.5 g/dL Normal 29.9-35.2 [facility] Comment on above: Performed By: #### C BC #### [facility] [address] [place], [place] [id number] Billy Devlin MCV (RBC) [Entitic vol] 90.2 fL Normal 80.0-94.0 [facility] Comment on above: Performed By: #### C BC #### [facility] [address] [place] [address] Billy Devlin MONO # 0.5 103/ul Normal 0.3-0.8 [facility] Comment on above: Performed By: #### C BC #### [facility] [address] [place], [place] [id number] Billy Devlin Monocytes/100 WBC (Bld) 13.3 % Critically high 1.7-12.0 [facility] Comment on above: Performed By: #### C BC #### [facility] [address] [place], [place] [id number] Billy Devlin NEUT # 1.6 103/ul Normal 1.4-6.5 [facility] Comment on above: Performed By: #### C BC #### [facility] [address] [place], [place] [id number] Billy Devlin Neutrophils/100 WBC (Bld) 42.4 % Critically low 43.0-75.0 [facility] Comment on above: Performed By: #### C BC #### [facility] [address] [place], [place] [id number] Billycarrillo Devlin Platelet mean volume (Bld) [Entitic vol] 11.5 fL Normal 9.5-13.5 [facility] Comment on above: Performed By: #### C BC #### [facility] [address] [place], [place] [id number] Billy Devlin PLT 136 103/ul Critically low 150-450 [facility] Comment on above: Performed By: #### C BC #### [facility] [address] [place] [address] Billy Devlin RBC 4.50 106/ul Critically low 4.70-6.10 [facility] Comment on above: Performed By: #### C BC #### [facility] [address] [place] [address] Billy Devlin WBC 3.7 103/ul Critically low 4.0-11.0 [facility] Comment on above: Performed By: #### C BC #### [facility] [address] [place] [address] Billy Devlin FERRITINon 09-10-2021 Ferritin [Mass/Vol] 106.0 ng/mL Normal 17.9-464.0 [facility] Comment on above: Performed By: #### F ERR #### [facility] [address] [place] [address] Dr. Krystle Heaton CBC AUTO DIFFon 08-15-2021 BASO # 0.0 103/ul Normal 0.0-0.1 [facility] Comment on above: Performed By: #### C BC #### [facility] [address] [place] [address] Dr. Krystle Heaton Basophils/100 WBC (Bld) 0.8 % Normal 0.2-2.0 [facility] Comment on above: Performed By: #### C BC #### [facility] [address] [place] [address] Dr. Krystle Heaton EO # 0.2 103/ul Normal 0.0-0.7 [facility] Comment on above: Performed By: #### C BC #### [facility] [address] [place] [address] Dr. Krystle Heaton Eosinophils/100 WBC (Bld) 4.4 % Normal 0.9-7.0 [facility] Comment on above: Performed By: #### C BC #### [facility] [address] [place] [address] Dr. Krystle Heaton Erythrocyte distribution width (RBC) [Ratio] 15.7 % Critically high 11.0-15.0 [facility] Comment on above: Performed By: #### C BC #### [facility] [address] [place] [address] Dr. Krystle Heaton Hematocrit (Bld) [Volume fraction] 39.4 % Critically low 42.0-54.0 [facility] Comment on above: Performed By: #### C BC #### [facility] [address] [place] [address] Dr. Krystle Heaton Hemoglobin (Bld) [Mass/Vol] 12.2 g/dL Critically low 14.0-18.0 [facility] Comment on above: Performed By: #### C BC #### [facility] [address] [place] [address] Dr. Krystle Heaton IG # 0.01 10e3/ul Normal 0.00-0.03 [facility] Comment on above: Performed By: #### C BC #### [facility] [address] [place] [address] Dr. Krystle Heaton IG % 0.2 % Normal 0.0-0.5 [facility] Comment on above: Performed By: #### C BC #### [facility] [address] [place] [address] Dr. Krystle Heaton LYMPH # 1.5 103/ul Normal 1.2-3.8 [facility] Comment on above: Performed By: #### C BC #### [facility] [address] [place] [address] Dr. Krystle Heaton Lymphocytes/100 WBC (Bld) 32.2 % Normal 20.5-60.0 [facility] Comment on above: Performed By: #### C BC #### [facility] [address] [place] [address] Dr. Krystle Heaton MANUAL DIFF REQ NO Normal [facility] Comment on above: Performed By: #### C BC #### [facility] [address] [place] [address] Dr. Krystle Heaton MCH (RBC) [Entitic mass] 27.4 pg Normal 25.9-34.0 [facility] Comment on above: Performed By: #### C BC #### [facility] [address] [place] [address] Dr. Krystle Heaton MCHC (RBC) [Mass/Vol] 31.0 g/dL Normal 29.9-35.2 [facility] Comment on above: Performed By: #### C BC #### [facility] [address] [place] [address] Dr. Krystle Heaton MCV (RBC) [Entitic vol] 88.5 fL Normal 80.0-94.0 [facility] Comment on above: Performed By: #### C BC #### [facility] [address] [place] [address] Dr. Krystle Heaton MONO # 0.6 103/ul Normal 0.3-0.8 [facility] Comment on above: Performed By: #### C BC #### [facility] [address] [place] [address] Dr. Krystle Heaton Monocytes/100 WBC (Bld) 11.7 % Normal 1.7-12.0 [facility] Comment on above: Performed By: #### C BC #### [facility] [address] [place] [address] Dr. Krystle Heaton NEUT # 2.4 103/ul Normal 1.4-6.5 [facility] Comment on above: Performed By: #### C BC #### [facility] [address] [place] [address] Dr. Krystle Heaton Neutrophils/100 WBC (Bld) 50.7 % Normal 43.0-75.0 [facility] Comment on above: Performed By: #### C BC #### [facility] [address] [place] [address] Dr. Krystle Heaton Platelet mean volume (Bld) [Entitic vol] 11.4 fL Normal 9.5-13.5 [facility] Comment on above: Performed By: #### C BC #### [facility] [address] [place] [address] Dr. Krystle Heaton PLT 169 103/ul Normal 150-450 [facility] Comment on above: Performed By: #### C BC #### [facility] [address] [address] [address] Krystle Heaton RBC 4.45 106/ul Critically low 4.70-6.10 [facility] Comment on above: Performed By: #### C BC #### [facility] [address] [address] [address] Krystle Heaton WBC 4.8 103/ul Normal 4.0-11.0 [facility] Comment on above: Performed By: #### C BC #### [facility] [address] [place] [address] Dr. Krystle Heaton FERRITINon 08-15-2021 Ferritin [Mass/Vol] 103.0 ng/mL Normal 17.9-464.0 [facility] Comment on above: Performed By: #### T 7, LIPA, TSH, AMADOU, CMP #### [facility] [address] [place] [address] Dr. Krystle Heaton No Panel Informationon 07-31 Name ANGIE FRITZ Pathologist: COLLETTE DOTSON MD Date of Procedure: 07/31/2021 [facility] Work Phone: Radiologyon 07-31-2021 US Guidance for fine needle aspiration of Liver Normal [facility] [id number] Work Phone: [facility] Surgical Pathology Depar tmenton 07-31-2021 [facility] Surgical Pathology Department Name ANGIE FRITZ Pathologist: COLLETTE DOTSON MD Date of Procedure: 07/31/2021 Date Received: 07/31/2021 Date Reported 08/03/2021 Submitting Physician: ORTIZ ROLAND MD Location: 0RAD Copy To/Referring/Attending: ENOCH HERRMANN MD Other External # FINAL DIAGNOSIS LIVER [...] 4. Electronically Signed Out By COLLETTE DOTSON MD/AVEL By the signature on this report, the [...] toto in 2 cassettes A1 and A2. [facility]/07/31/2021 The assays/tests were performed with appropriate positive and negative controls which stained appropriately. [facility] Department of Pathology [address] [place] [address] Normal [facility] Comment on above: Performed By: #### [facility] #### [facility] Surgical Pathology Department [address] [place] [address] US BIOPSY LIVER PERon 2020 US BIOPSY LIVER PER Patient Name: ANGIE FRITZ STUDY: US BIOPSY LIVER PER; 07/31/2021 1:03 pm PROCEDURE: ULTRASOUND GUIDED NON TARGETED RANDOM BIOPSY OF THE LIVER INDICATION: Hemochromatosis; here for tissue diagnosis COMPARISON: CT-guided liver biopsy 05/08/2021. ACCESSION NUMBER(S): [id number] ORDERING CLINICIAN: ENOCH HERRMANN COTTAGE SUPERVISOR: Dr. Roland (attending) Dee Lopes MD MEDICATIONS: [...] as stated. This study was interpreted at [place], [place]. Electronically signed by: SANDY ROLAND MD Normal [facility] CBC AUTO DIFFon 07-28-2021 BASO # 0.0 103/ul Normal 0.0-0.1 [facility] Comment on above: Performed By: #### T 7, LIPA, TSH, AMADOU, CMP #### [facility] [address], [place] [address] Dr. Krystle Heaton Basophils/100 WBC (Bld) 0.6 % Normal 0.2-2.0 [facility] Comment on above: Performed By: #### T 7, LIPA, TSH, AMADOU, CMP #### [facility] [address], [place] [address] Dr. Krystle Heaton EO # 0.2 103/ul Normal 0.0-0.7 [facility] Comment on above: Performed By: #### T 7, LIPA, TSH, AMADOU, CMP #### [facility] [address] [place] [address] Dr. Krystle Heaton Eosinophils/100 WBC (Bld) 3.6 % Normal 0.9-7.0 [facility] Comment on above: Performed By: #### T 7, LIPA, TSH, AMADOU, CMP #### [facility] [address] [place] [address] Dr. Krystle Heaton Erythrocyte distribution width (RBC) [Ratio] 14.7 % Normal 11.0-15.0 [facility] Comment on above: Performed By: #### T 7, LIPA, TSH, AMADOU, CMP #### [facility] [address] [place] [address] Dr. Krystle Heaton Hematocrit (Bld) [Volume fraction] 37.4 % Critically low 42.0-54.0 [facility] Comment on above: Performed By: #### T 7, LIPA, TSH, AMADOU, CMP #### [facility] [address] [place] [address] Dr. Krystle Heaton Hemoglobin (Bld) [Mass/Vol] 11.5 g/dL Critically low 14.0-18.0 [facility] Comment on above: Performed By: #### T 7, LIPA, TSH, AMADOU, CMP #### [facility] [address] [place] [address] Dr. Krystle Heaton IG # 0.02 10e3/ul Normal 0.00-0.03 [facility] Comment on above: Performed By: #### T 7, LIPA, TSH, AMADOU, CMP #### [facility] [address] [place] [address] Dr. Krystle Heaton IG % 0.4 % Normal 0.0-0.5 [facility] Comment on above: Performed By: #### T 7, LIPA, TSH, AMADOU, CMP #### [facility] [address] [place] [address] Dr. Krystle Heaton LYMPH # 1.5 103/ul Normal 1.2-3.8 [facility] Comment on above: Performed By: #### T 7, LIPA, TSH, AMADOU, CMP #### [facility] [address] [place] [address] Dr. Krystle Heaton Lymphocytes/100 WBC (Bld) 31.3 % Normal 20.5-60.0 [facility] Comment on above: Performed By: #### T 7, LIPA, TSH, AMADOU, CMP #### [facility] [address] [place] [address] Dr. Krystle Heaton MANUAL DIFF REQ NO Normal [facility] Comment on above: Performed By: #### T 7, LIPA, TSH, AMADOU, CMP #### [facility] [address] [place] [address] Dr. Krystle Heaton MCH (RBC) [Entitic mass] 27.8 pg Normal 25.9-34.0 [facility] Comment on above: Performed By: #### T 7, LIPA, TSH, AMADOU, CMP #### [facility] [address] [place] [address] Dr. Krystle Heaton MCHC (RBC) [Mass/Vol] 30.7 g/dL Normal 29.9-35.2 [facility] Comment on above: Performed By: #### T 7, LIPA, TSH, AMADOU, CMP #### [facility] [address] [place] [address] Dr. Krystle Heaton MCV (RBC) [Entitic vol] 90.6 fL Normal 80.0-94.0 [facility] Comment on above: Performed By: #### T 7, LIPA, TSH, AMADOU, CMP #### [facility] [address] [place] [address] Dr. Krystle Heaton MONO # 0.6 103/ul Normal 0.3-0.8 [facility] Comment on above: Performed By: #### T 7, LIPA, TSH, AMADOU, CMP #### [facility] [address] [place] [address] Dr. Krystle Heaton Monocytes/100 WBC (Bld) 12.8 % Critically high 1.7-12.0 [facility] Comment on above: Performed By: #### T 7, LIPA, TSH, AMADOU, CMP #### [facility] [address] [address] [address] Krystle Heaton NEUT # 2.4 103/ul Normal 1.4-6.5 [facility] Comment on above: Performed By: #### T 7, LIPA, TSH, AMADOU, CMP #### [facility] [address] [place] [address] Dr. Krystle Heaton Neutrophils/100 WBC (Bld) 51.3 % Normal 43.0-75.0 [facility] Comment on above: Performed By: #### T 7, LIPA, TSH, AMADOU, CMP #### [facility] [address] [place] [address] Dr. Krystle Heaton Platelet mean volume (Bld) [Entitic vol] 11.4 fL Normal 9.5-13.5 [facility] Comment on above: Performed By: #### T 7, LIPA, TSH, AMADOU, CMP #### [facility] [address] [place] [address] Dr. Krystle Heaton PLT 190 103/ul Normal 150-450 [facility] Comment on above: Performed By: #### T 7, LIPA, TSH, AMADOU, CMP #### [facility] [address] [place] [address] Dr. Krystle Heaton RBC 4.13 106/ul Critically low 4.70-6.10 [facility] Comment on above: Performed By: #### T 7, LIPA, TSH, AMADOU, CMP #### [facility] [address] [place] [address] Dr. Krystle Heaton WBC 4.7 103/ul Normal 4.0-11.0 [facility] Comment on above: Performed By: #### T 7, LIPA, TSH, AMADOU, CMP #### [facility] [address] [place] [address] Dr. Krystle Heaton PROTIMEon 07-28-2021 INR Coag (PPP) [Relative time] 1.00 {INR} Normal [facility] Comment on above: Performed By: #### H BSANS #### [facility] [address] [place] [address] Billy Devlin INR GUIDELINES SEE BELOW Normal [facility] Comment on above: Result Comment: MOUNA RED INR: 2.0 - 3.0 CONDITIONS NOT LISTED BELOW 2.5 - 3.5 FOR PROSTHETIC HEART VALVE REPLACEMENT 2.5 - 3.5 RECURRENT THROMBOSIS Performed By: #### H ANJUMNS #### [facility] [address] [place] [address] Billy Devlin PT Coag (PPP) [Time] 10.8 s Normal 9.0-11.6 [facility] Comment on above: Performed By: #### H BSANS #### [facility] [address] [place] [address] Billy Devlin CBC AUTO DIFFon 07-09-2021 BASO # 0.0 103/ul Normal 0.0-0.1 [facility] Comment on above: Performed By: #### T 7, LIPA, TSH, AMADOU, CMP #### [facility] [address] [place] [address] Dr. Krystle Heaton Basophils/100 WBC (Bld) 0.4 % Normal 0.2-2.0 [facility] Comment on above: Performed By: #### T 7, LIPA, TSH, AMADOU, CMP #### [facility] [address] [place] [address] Dr. Krystle Heaton EO # 0.2 103/ul Normal 0.0-0.7 [facility] Comment on above: Performed By: #### T 7, LIPA, TSH, AMADOU, CMP #### [facility] [address] [place] [address] Dr. Krystle Heaton Eosinophils/100 WBC (Bld) 2.9 % Normal 0.9-7.0 [facility] Comment on above: Performed By: #### T 7, LIPA, TSH, AMADOU, CMP #### [facility] [address] [place] [address] Dr. Krystle Heaton Erythrocyte distribution width (RBC) [Ratio] 13.9 % Normal 11.0-15.0 [facility] Comment on above: Performed By: #### T 7, LIPA, TSH, AMADOU, CMP #### [facility] [address] [place] [address] Dr. Krystle Heaton Hematocrit (Bld) [Volume fraction] 40.4 % Critically low 42.0-54.0 [facility] Comment on above: Performed By: #### T 7, LIPA, TSH, AMADOU, CMP #### [facility] [address] [place] [address] Dr. Krystle Heaton Hemoglobin (Bld) [Mass/Vol] 12.3 g/dL Critically low 14.0-18.0 [facility] Comment on above: Performed By: #### T 7, LIPA, TSH, AMADOU, CMP #### [facility] [address] [place] [address] Dr. Krystle Heaton IG # 0.03 10e3/ul Normal 0.00-0.03 [facility] Comment on above: Performed By: #### T 7, LIPA, TSH, AAMDOU, CMP #### [facility] [address] [place] [address] Dr. Krystle Heaton IG % 0.6 % Critically high 0.0-0.5 [facility] Comment on above: Performed By: #### T 7, LIPA, TSH, AMADOU, CMP #### [facility] [address] [place] [address] Dr. Krystle Heaton LYMPH # 1.5 103/ul Normal 1.2-3.8 [facility] Comment on above: Performed By: #### T 7, LIPA, TSH, AMADOU, CMP #### [facility] [address] [place] [address] Dr. Krystle Heaton Lymphocytes/100 WBC (Bld) 28.3 % Normal 20.5-60.0 [facility] Comment on above: Performed By: #### T 7, LIPA, TSH, AMADOU, CMP #### [facility] [address] [place] [address] Dr. Krystle Heaton MANUAL DIFF REQ NO Normal [facility] Comment on above: Performed By: #### T 7, LIPA, TSH, AMADOU, CMP #### [facility] [address] [place] [address] Dr. Krystle Heaton MCH (RBC) [Entitic mass] 28.3 pg Normal 25.9-34.0 [facility] Comment on above: Performed By: #### T 7, LIPA, TSH, AMADOU, CMP #### [facility] [address] [place] [address] Dr. Krystle Heaton MCHC (RBC) [Mass/Vol] 30.4 g/dL Normal 29.9-35.2 [facility] Comment on above: Performed By: #### T 7, LIPA, TSH, AMADOU, CMP #### [facility] [address] [place] [address] Dr. Krsytle Heaton MCV (RBC) [Entitic vol] 93.1 fL Normal 80.0-94.0 [facility] Comment on above: Performed By: #### T 7, LIPA, TSH, AMADOU, CMP #### [facility] [address] [place] [address] Dr. Krystle Heaton MONO # 0.7 103/ul Normal 0.3-0.8 [facility] Comment on above: Performed By: #### T 7, LIPA, TSH, AMADOU, CMP #### [facility] [address] [place] [address] Dr. Krystle Heaton Monocytes/100 WBC (Bld) 13.4 % Critically high 1.7-12.0 [facility] Comment on above: Performed By: #### T 7, LIPA, TSH, AMADOU, CMP #### [facility] [address] [place] [address] Dr. Krystle Heaton NEUT # 2.8 103/ul Normal 1.4-6.5 [facility] Comment on above: Performed By: #### T 7, LIPA, TSH, AMADOU, CMP #### [facility] [address] [place] [address] Dr. Krystle Heaton Neutrophils/100 WBC (Bld) 54.4 % Normal 43.0-75.0 [facility] Comment on above: Performed By: #### T 7, LIPA, TSH, AMADOU, CMP #### [facility] [address] [place] [address] Dr. Krystle Heaton Platelet mean volume (Bld) [Entitic vol] 11.7 fL Normal 9.5-13.5 [facility] Comment on above: Performed By: #### T 7, LIPA, TSH, AMADOU, CMP #### [facility] [address] [place] [address] Dr. Krystle Heaton PLT 192 103/ul Normal 150-450 [facility] Comment on above: Performed By: #### T 7, LIPA, TSH, AMADOU, CMP #### [facility] [address] [place] [address] Dr. Krystle Heaton RBC 4.34 106/ul Critically low 4.70-6.10 [facility] Comment on above: Performed By: #### T 7, LIPA, TSH, AMADOU, CMP #### [facility] [address] [place] [address] Dr. Krystle Heaton WBC 5.2 103/ul Normal 4.0-11.0 [facility] Comment on above: Performed By: #### T 7, LIPA, TSH, AMADOU, CMP #### [facility] [address] [place] [address] Dr. Krystle Heaton FERRITINon 07-09-2021 Ferritin [Mass/Vol] 122.0 ng/mL Normal 17.9-464.0 [facility] Comment on above: Performed By: #### T 7, LIPA, TSH, AMADOU, CMP #### [facility] [address] [place] [address] Dr. Krystle Heaton CBC AUTO DIFFon 06-11-2021 BASO # 0.0 103/ul Normal 0.0-0.1 [facility] Comment on above: Performed By: #### T 7, LIPA, TSH, AMADOU, CMP #### [facility] [address] [place] [address] Dr. Krystle Heaton Basophils/100 WBC (Bld) 0.7 % Normal 0.2-2.0 [facility] Comment on above: Performed By: #### T 7, LIPA, TSH, AMADOU, CMP #### [facility] [address] [place] [address] Dr. Krystle Heaton EO # 0.2 103/ul Normal 0.0-0.7 [facility] Comment on above: Performed By: #### T 7, LIPA, TSH, AMADOU, CMP #### [facility] [address] [place] [address] Dr. Krystle Heaton Eosinophils/100 WBC (Bld) 3.9 % Normal 0.9-7.0 [facility] Comment on above: Performed By: #### T 7, LIPA, TSH, AMADOU, CMP #### [facility] [address] [place] [address] Dr. Krystle Heaton Erythrocyte distribution width (RBC) [Ratio] 13.0 % Normal 11.0-15.0 [facility] Comment on above: Performed By: #### T 7, LIPA, TSH, AMADOU, CMP #### [facility] [address] [place] [address] Dr. Krystle Heaton Hematocrit (Bld) [Volume fraction] 39.0 % Critically low 42.0-54.0 [facility] Comment on above: Performed By: #### T 7, LIPA, TSH, AMADOU, CMP #### [facility] [address] [place] [address] Dr. Krystle Heaton Hemoglobin (Bld) [Mass/Vol] 12.4 g/dL Critically low 14.0-18.0 [facility] Comment on above: Performed By: #### T 7, LIPA, TSH, AMADOU, CMP #### [facility] [address] [place] [address] Dr. Krystle Heaton IG # 0.01 10e3/ul Normal 0.00-0.03 [facility] Comment on above: Performed By: #### T 7, LIPA, TSH, AMADOU, CMP #### [facility] [address] [place] [address] Dr. Krystle Heaton IG % 0.2 % Normal 0.0-0.5 [facility] Comment on above: Performed By: #### T 7, LIPA, TSH, AMADOU, CMP #### [facility] [address] [place] [address] Dr. Krystle Heaton LYMPH # 1.0 103/ul Critically low 1.2-3.8 [facility] Comment on above: Performed By: #### T 7, LIPA, TSH, AMADOU, CMP #### [facility] [address] [place] [address] Dr. Krystle Heaton Lymphocytes/100 WBC (Bld) 23.1 % Normal 20.5-60.0 [facility] Comment on above: Performed By: #### T 7, LIPA, TSH, AMADOU, CMP #### [facility] [address] [place] [address] Dr. Krystle Heaton MANUAL DIFF REQ NO Normal [facility] Comment on above: Performed By: #### T 7, LIPA, TSH, AMADUO, CMP #### [facility] [address] [place] [address] Dr. Krystle Heaton MCH (RBC) [Entitic mass] 31.2 pg Normal 25.9-34.0 [facility] Comment on above: Performed By: #### T 7, LIPA, TSH, AMADOU, CMP #### [facility] [address] [place] [address] Dr. Krystle Heaton MCHC (RBC) [Mass/Vol] 31.8 g/dL Normal 29.9-35.2 [facility] Comment on above: Performed By: #### T 7, LIPA, TSH, AMADOU, CMP #### [facility] [address] [place] [address] Dr. Krystle Heaton MCV (RBC) [Entitic vol] 98.2 fL Critically high 80.0-94.0 [facility] Comment on above: Performed By: #### T 7, LIPA, TSH, AMADOU, CMP #### [facility] [address] [place] [address] Dr. Krystle Heaton MONO # 0.5 103/ul Normal 0.3-0.8 [facility] Comment on above: Performed By: #### T 7, LIPA, TSH, AMADOU, CMP #### [facility] [address] [place] [address] Dr. Krystle Heaton Monocytes/100 WBC (Bld) 10.4 % Normal 1.7-12.0 [facility] Comment on above: Performed By: #### T 7, LIPA, TSH, AMADOU, CMP #### [facility] [address] [place] [address] Dr. Krystle Heaton NEUT # 2.7 103/ul Normal 1.4-6.5 [facility] Comment on above: Performed By: #### T 7, LIPA, TSH, AMADOU, CMP #### [facility] [address] [place] [address] Dr. Krystle Heaton Neutrophils/100 WBC (Bld) 61.7 % Normal 43.0-75.0 [facility] Comment on above: Performed By: #### T 7, LIPA, TSH, AMADOU, CMP #### [facility] [address] [place] [address] Dr. Krystle Heaton Platelet mean volume (Bld) [Entitic vol] 10.8 fL Normal 9.5-13.5 [facility] Comment on above: Performed By: #### T 7, LIPA, TSH, AMADOU, CMP #### [facility] [address] [place] [address] Dr. Krystle Heaton PLT 197 103/ul Normal 150-450 [facility] Comment on above: Performed By: #### T 7, LIPA, TSH, AMADOU, CMP #### [facility] [address] [place] [address] Dr. Krystle Heaton RBC 3.97 106/ul Critically low 4.70-6.10 [facility] Comment on above: Performed By: #### T 7, LIPA, TSH, AMADOU, CMP #### [facility] [address] [place] [address] Dr. Krystle Heaton WBC 4.3 103/ul Normal 4.0-11.0 [facility] Comment on above: Performed By: #### T 7, LIPA, TSH, AMADOU, CMP #### [facility] [address] [place] [address] Dr. Krystle Heaton FERRITINon 06-11-2021 Ferritin [Mass/Vol] 107.0 ng/mL Normal 17.9-464.0 [facility] Comment on above: Performed By: #### T 7, LIPA, TSH, AMADOU, CMP #### [facility] [address] [place] [address] Dr. Krystle Heaton CBC AUTO DIFFon 05-28-2021 BASO # 0.0 103/ul Normal 0.0-0.1 [facility] Comment on above: Performed By: #### T 7, LIPA, TSH, AMADOU, CMP #### [facility] [address] [place] [address] Dr. Krystle Heaton Basophils/100 WBC (Bld) 0.5 % Normal 0.2-2.0 [facility] Comment on above: Performed By: #### T 7, LIPA, TSH, AMADOU, CMP #### [facility] [address] [place] [address] Dr. Krystle Heaton EO # 0.1 103/ul Normal 0.0-0.7 [facility] Comment on above: Performed By: #### T 7, LIPA, TSH, AMADOU, CMP #### [facility] [address] [place] [address] Dr. Krystle Heaton Eosinophils/100 WBC (Bld) 3.5 % Normal 0.9-7.0 [facility] Comment on above: Performed By: #### T 7, LIPA, TSH, AMADOU, CMP #### [facility] [address] [place] [address] Dr. Krystle Heaton Erythrocyte distribution width (RBC) [Ratio] 12.6 % Normal 11.0-15.0 [facility] Comment on above: Performed By: #### T 7, LIPA, TSH, AMADOU, CMP #### [facility] [address] [place] [address] Dr. Krystle Heaton Hematocrit (Bld) [Volume fraction] 39.8 % Critically low 42.0-54.0 [facility] Comment on above: Performed By: #### T 7, LIPA, TSH, AMADOU, CMP #### [facility] [address] [place] [address] Dr. Krystle Heaton Hemoglobin (Bld) [Mass/Vol] 12.5 g/dL Critically low 14.0-18.0 [facility] Comment on above: Performed By: #### T 7, LIPA, TSH, AMADOU, CMP #### [facility] [address] [place] [address] Dr. Krystle Heaton IG # 0.00 10e3/ul Normal 0.00-0.03 [facility] Comment on above: Performed By: #### T 7, LIPA, TSH, AMADOU, CMP #### [facility] [address] [place] [address] Dr. Krystle Heaton IG % 0.0 % Normal 0.0-0.5 [facility] Comment on above: Performed By: #### T 7, LIPA, TSH, AMADOU, CMP #### [facility] [address] [place] [address] Dr. Krystle Heaton LYMPH # 1.2 103/ul Normal 1.2-3.8 [facility] Comment on above: Performed By: #### T 7, LIPA, TSH, AMADOU, CMP #### [facility] [address] [place] [address] Dr. Krystle Heaton Lymphocytes/100 WBC (Bld) 32.7 % Normal 20.5-60.0 [facility] Comment on above: Performed By: #### T 7, LIPA, TSH, AMADOU, CMP #### [facility] [address] [place] [address] Dr. Krystle Heaton MANUAL DIFF REQ NO Normal [facility] Comment on above: Performed By: #### T 7, LIPA, TSH, AMADOU, CMP #### [facility] [address] [place] [address] Dr. Krystle Heaton MCH (RBC) [Entitic mass] 32.1 pg Normal 25.9-34.0 [facility] Comment on above: Performed By: #### T 7, LIPA, TSH, AMADOU, CMP #### [facility] [address] [place] [address] Dr. Krystle Heaton MCHC (RBC) [Mass/Vol] 31.4 g/dL Normal 29.9-35.2 [facility] Comment on above: Performed By: #### T 7, LIPA, TSH, AMADOU, CMP #### [facility] [address] [place] [address] Dr. Krystle Heaton MCV (RBC) [Entitic vol] 102.3 fL Critically high 80.0-94.0 [facility] Comment on above: Performed By: #### T 7, LIPA, TSH, AMADOU, CMP #### [facility] [address] [place] [address] Dr. Krystle Heaton MONO # 0.4 103/ul Normal 0.3-0.8 [facility] Comment on above: Performed By: #### T 7, LIPA, TSH, AMADOU, CMP #### [facility] [address] [place] [address] Dr. Krystle Heaton Monocytes/100 WBC (Bld) 10.5 % Normal 1.7-12.0 [facility] Comment on above: Performed By: #### T 7, LIPA, TSH, AMADOU, CMP #### [facility] [address] [place] [address] Dr. Krystle Heaton NEUT # 2.0 103/ul Normal 1.4-6.5 [facility] Comment on above: Performed By: #### T 7, LIPA, TSH, AMADOU, CMP #### [facility] [address] [place] [address] Dr. Krystle Heaton Neutrophils/100 WBC (Bld) 52.8 % Normal 43.0-75.0 [facility] Comment on above: Performed By: #### T 7, LIPA, TSH, AMADOU, CMP #### [facility] [address] [place] [address] Dr. Krystle Heaton Platelet mean volume (Bld) [Entitic vol] 10.7 fL Normal 9.5-13.5 [facility] Comment on above: Performed By: #### T 7, LIPA, TSH, AMADOU, CMP #### [facility] [address] [address] [address] Krystle Heaton PLT 227 103/ul Normal 150-450 [facility] Comment on above: Performed By: #### T 7, LIPA, TSH, AMADOU, CMP #### [facility] [address] [address] [address] Krystle Heaton RBC 3.89 106/ul Critically low 4.70-6.10 [facility] Comment on above: Performed By: #### T 7, LIPA, TSH, AMADOU, CMP #### [facility] [address] [address] [address] Krystle Heaton WBC 3.7 103/ul Critically low 4.0-11.0 [facility] Comment on above: Performed By: #### T 7, LIPA, TSH, AMDAOU, CMP #### [facility] [address] [address] [address] Krystle Heaton FERRITINon 05-28-2021 Ferritin [Mass/Vol] 169.0 ng/mL Normal 17.9-464.0 [facility] Comment on above: Performed By: #### F ERR #### [facility] [address] [address] [address] Krystle Heaton METHYLMALONIC ACID (MMA)on 0 05-18-2021 Disclaimer: Comment Normal [facility] Comment on above: Result Comment: This test was developed and its performance characteristics determined by [facility]. It has not been cleared or approved by the Food and Drug Administration. Performed By: #### T 7, LIPA, TSH, AMADOU, CMP #### [facility] [address] [address] [address] Krystle Heaton Methylmalonic Acid, Serum 124 nmol/L Normal 0-378 [facility] Comment on above: Performed By: #### T 7, LIPA, TSH, AMADOU, CMP #### [facility] [address] [address] [address] Krystle Heaton HOMOCYSTEINEon 05-16-2021 Homocyst(e)ine, Plasma 19.5 umol/L Critically high 0.0-14.5 [facility] Comment on above: Performed By: #### T 7, LIPA, TSH, AMADOU, CMP #### [facility] [address] [place] [address] Dr. Krystle Heaton CBC AUTO DIFFon 05-15-2021 BASO # 0.0 103/ul Normal 0.0-0.1 [facility] Comment on above: Performed By: #### T 7, LIPA, TSH, AMADOU, CMP #### [facility] [address] [place] [address] Dr. Krystle Heaton Basophils/100 WBC (Bld) 0.5 % Normal 0.2-2.0 [facility] Comment on above: Performed By: #### T 7, LIPA, TSH, AMADOU, CMP #### [facility] [address] [place] [address] Dr. Krystle Heaton EO # 0.1 103/ul Normal 0.0-0.7 [facility] Comment on above: Performed By: #### T 7, LIPA, TSH, AMADOU, CMP #### [facility] [address] [place] [address] Dr. Krystle Heaton Eosinophils/100 WBC (Bld) 1.8 % Normal 0.9-7.0 [facility] Comment on above: Performed By: #### T 7, LIPA, TSH, AMADOU, CMP #### [facility] [address] [place] [address] Dr. Krystle Heaton Erythrocyte distribution width (RBC) [Ratio] 12.7 % Normal 11.0-15.0 [facility] Comment on above: Performed By: #### T 7, LIPA, TSH, AMADOU, CMP #### [facility] [address] [place] [address] Dr. Krystle Heaton Hematocrit (Bld) [Volume fraction] 39.4 % Critically low 42.0-54.0 [facility] Comment on above: Performed By: #### T 7, LIPA, TSH, AMADOU, CMP #### [facility] [address] [place] [address] Dr. Krystle Heaton Hemoglobin (Bld) [Mass/Vol] 12.9 g/dL Critically low 14.0-18.0 [facility] Comment on above: Performed By: #### T 7, LIPA, TSH, AMADOU, CMP #### [facility] [address] [place] [address] Dr. Krystle Heaton IG # 0.02 10e3/ul Normal 0.00-0.03 [facility] Comment on above: Performed By: #### T 7, LIPA, TSH, AMADOU, CMP #### [facility] [address] [place] [address] Dr. Krystle Heaton IG % 0.4 % Normal 0.0-0.5 [facility] Comment on above: Performed By: #### T 7, LIPA, TSH, AMADOU, CMP #### [facility] [address] [place] [address] Dr. Krystle Heaton LYMPH # 1.4 103/ul Normal 1.2-3.8 [facility] Comment on above: Performed By: #### T 7, LIPA, TSH, AMADOU, CMP #### [facility] [address] [place] [address] Dr. Krystle Heaton Lymphocytes/100 WBC (Bld) 24.9 % Normal 20.5-60.0 [facility] Comment on above: Performed By: #### T 7, LIPA, TSH, AMADOU, CMP #### [facility] [address] [place] [address] Dr. Krystle Heaton MANUAL DIFF REQ NO Normal [facility] Comment on above: Performed By: #### T 7, LIPA, TSH, AMADOU, CMP #### [facility] [address] [place] [address] Dr. Krystle Heaton MCH (RBC) [Entitic mass] 34.0 pg Normal 25.9-34.0 [facility] Comment on above: Performed By: #### T 7, LIPA, TSH, AMADOU, CMP #### [facility] [address] [place] [address] Dr. Krystle Heaton MCHC (RBC) [Mass/Vol] 32.7 g/dL Normal 29.9-35.2 [facility] Comment on above: Performed By: #### T 7, LIPA, TSH, AMADOU, CMP #### [facility] [address] [place] [address] Dr. Krystle Heaton MCV (RBC) [Entitic vol] 104.0 fL Critically high 80.0-94.0 [facility] Comment on above: Performed By: #### T 7, LIPA, TSH, AMADOU, CMP #### [facility] [address] [place] [address] Dr. Krystle Heaton MONO # 0.7 103/ul Normal 0.3-0.8 [facility] Comment on above: Performed By: #### T 7, LIPA, TSH, AMADOU, CMP #### [facility] [address] [place] [address] Dr. Krystle Heaton Monocytes/100 WBC (Bld) 11.8 % Normal 1.7-12.0 [facility] Comment on above: Performed By: #### T 7, LIPA, TSH, AMADOU, CMP #### [facility] [address] [place] [address] Dr. Krystle Heaton NEUT # 3.3 103/ul Normal 1.4-6.5 [facility] Comment on above: Performed By: #### T 7, LIPA, TSH, AMADOU, CMP #### [facility] [address] [place] [address] Dr. Krystle Heaton Neutrophils/100 WBC (Bld) 60.6 % Normal 43.0-75.0 [facility] Comment on above: Performed By: #### T 7, LIPA, TSH, AMADOU, CMP #### [facility] [address] [place] [address] Dr. Krystle Heaton Platelet mean volume (Bld) [Entitic vol] 10.2 fL Normal 9.5-13.5 [facility] Comment on above: Performed By: #### T 7, LIPA, TSH, AMADOU, CMP #### [facility] [address] [place] [address] Dr. Krystle Heaton PLT 196 103/ul Normal 150-450 [facility] Comment on above: Performed By: #### T 7, LIPA, TSH, AMADOU, CMP #### [facility] [address] [place] [address] Dr. Krystle Heaton RBC 3.79 106/ul Critically low 4.70-6.10 [facility] Comment on above: Performed By: #### T 7, LIPA, TSH, AMADOU, CMP #### [facility] [address] [place] [address] Dr. Krystle Heaton WBC 5.5 103/ul Normal 4.0-11.0 [facility] Comment on above: Performed By: #### T 7, LIPA, TSH, AMADOU, CMP #### [facility] [address] [place] [address] Dr. Krystle Heaton FERRITINon 05-15-2021 Ferritin [Mass/Vol] 302.0 ng/mL Normal 17.9-464.0 [facility] Comment on above: Performed By: #### C BC #### [facility] [address] [place] [address] Billy Devlin PROF 14(COMP METB)on 021 Albumin [Mass/Vol] 3.5 g/dL Normal 3.5-5.0 [facility] Comment on above: Performed By: #### C BC #### [facility] [address] [place], [place] [id number] Billy Devlin Albumin/Globulin [Mass ratio] 1.0 {ratio} Normal [facility] Comment on above: Performed By: #### C BC #### [facility] [address] [place] [address] Billy Quita ALP [Catalytic activity/Vol] 71 U/L Normal 38-126 [facility] Comment on above: Performed By: #### C BC #### [facility] [address] [place], [place] [id number] Billy Devlin ALT [Catalytic activity/Vol] 40 U/L Normal 21-72 [facility] Comment on above: Performed By: #### C BC #### [facility] [address] [place] [address] Billy Devlin Anion gap [Moles/Vol] 17.5 mmol/L Normal [facility] Comment on above: Performed By: #### C BC #### [facility] [address] [id number] Billy Quita AST [Catalytic activity/Vol] 43 U/L Normal 17-59 [facility] Comment on above: Performed By: #### C BC #### [facility] [address] [id number] Billy Quita Bilirubin [Mass/Vol] 0.3 mg/dL Normal 0.2-1.3 [facility] Comment on above: Performed By: #### C BC #### [facility] [address] [id number] Billy Quita Calcium [Mass/Vol] 8.8 mg/dL Normal 8.4-10.2 [facility] Comment on above: Performed By: #### C BC #### [facility] [address] [place] [address] Billy Quita Chloride [Moles/Vol] 101 mmol/L Normal 98-107 [facility] Comment on above: Performed By: #### C BC #### [facility] [address] [place], [place] [id number] Billy Quita CO2 [Moles/Vol] 26.6 mmol/L Normal 22.0-30.0 [facility] Comment on above: Performed By: #### C BC #### [facility] [address] [place], [place] [id number] Billy Quita Creatinine [Mass/Vol] 0.88 mg/dL Normal 0.66-1.25 [facility] Comment on above: Performed By: #### C BC #### [facility] [address] [id number] Billy Quita EGFR-AF TUVALUAN >60 Normal >=60 [facility] Comment on above: Performed By: #### C BC #### [facility] [address] [place], [place] [address] Billy Quita EGFR-NON AF TUVALUAN >60 Normal >=60 [facility] Comment on above: Performed By: #### C BC #### [facility] [address] [place], [place] [address] Billy Quita Globulin (S) [Mass/Vol] 3.6 g/dL Normal [facility] Comment on above: Performed By: #### C BC #### [facility] [address] [place], [place] [address] Billy Quita Glucose [Mass/Vol] 101 mg/dL Normal 74-106 [facility] Comment on above: Performed By: #### C BC #### [facility] [address] [place], [place] [address] Billy Quita Potassium [Moles/Vol] 4.1 mmol/L Normal 3.4-5.0 [facility] Comment on above: Performed By: #### C BC #### [facility] [address] [place], [place] [address] Billy Quita Protein [Mass/Vol] 7.1 g/dL Normal 6.1-8.2 [facility] Comment on above: Performed By: #### C BC #### [facility] [address] [id number] Billy Quita Sodium [Moles/Vol] 141 mmol/L Normal 137-145 [facility] Comment on above: Performed By: #### C BC #### [facility] [address] [place], [place] [address] Billy Quita Urea nitrogen [Mass/Vol] 11.0 mg/dL Normal 9.0-20.0 [facility] Comment on above: Performed By: #### C BC #### [facility] [address] [place], [place] [address] Billy Quita Urea nitrogen/Creatinine [Mass ratio] 12.5 mg/mg Normal [facility] Comment on above: Performed By: #### C BC #### [facility] [address] [place], [place] [address] Billy Quita IN BIOPSY LIVER PERCUTANEOUS NEEDLEon 05-08-2021 IN BIOPSY LIVER PERCUTANEOUS NEEDLE Patient Name: ANGIE FRITZ STUDY: IN BIOPSY LIVER PERCUTANEOUS NEEDLE; ; 05/08/2021 11:46 am INDICATION: None. COMPARISON: None. ACCESSION NUMBER(S): [id number] ORDERING CLINICIAN: ENOCH HERRMANN TECHNIQUE: CONSENT: The [...] and cap. Additionally, the performing physician and behavioral modification assistant used maximum barrier technique to include [...] were made using an 18 gauge spring-loaded iWatt core biopsy needle. Good core samples were [...] above Electronically signed by: URI BACON MD [facility] Order Reconciliationon 05-08 Order Reconciliation Page [...] tab(s) orally 2 times a day Normal [facility] Surgical Pathology Depar tmenton 05-08-2021 [facility] Surgical Pathology Department Name ANGIE FRITZ Pathologist: SUSAN BLACK M.D., PhD. Date of Procedure: 05/08/2021 Date Received: 05/08/2021 Date Reported 05/11/2021 Submitting Physician: ENOCH HERRMANN MD Location: [facility] Copy To/Referring/Attending: URI BACON MD Other External [...] submitted in toto in one cassette. SBS sbs/05/08/2021 The assays/tests were performed with appropriate positive and negative controls which stained appropriately. [facility] Department of Pathology [address] [place] [address] Normal [facility] Comment on above: Performed By: #### U HCS #### [facility] Surgical Pathology Department [address] [place] [address] CBC AUTO DIFFon 05-04-2021 BASO # 0.0 103/ul Normal 0.0-0.1 [facility] Comment on above: Performed By: #### F ERR #### [facility] [address] [address] [address] Krystle Heaton Basophils/100 WBC (Bld) 0.5 % Normal 0.2-2.0 [facility] Comment on above: Performed By: #### F ERR #### [facility] [address] [address] [address] Krystle Heaton EO # 0.1 103/ul Normal 0.0-0.7 [facility] Comment on above: Performed By: #### F ERR #### [facility] [address] [place] [address] Dr. Krystle Heaton Eosinophils/100 WBC (Bld) 2.5 % Normal 0.9-7.0 [facility] Comment on above: Performed By: #### F ERR #### [facility] [address] [place] [address] Dr. Krystle Heaton Erythrocyte distribution width (RBC) [Ratio] 12.5 % Normal 11.0-15.0 [facility] Comment on above: Performed By: #### F ERR #### [facility] [address] [place] [address] Dr. Krystle Heaton Hematocrit (Bld) [Volume fraction] 34.3 % Critically low 42.0-54.0 [facility] Comment on above: Performed By: #### F ERR #### [facility] [address] [place] [address] Dr. Krystle Heaton Hemoglobin (Bld) [Mass/Vol] 11.2 g/dL Critically low 14.0-18.0 [facility] Comment on above: Performed By: #### F ERR #### [facility] [address] [place] [address] Dr. Krystle Heaton IG # 0.01 10e3/ul Normal 0.00-0.03 [facility] Comment on above: Performed By: #### F ERR #### [facility] [address] [place] [address] Dr. Krystle Heaton IG % 0.3 % Normal 0.0-0.5 [facility] Comment on above: Performed By: #### F ERR #### [facility] [address] [place] [address] Dr. Krystle Heaton LYMPH # 1.3 103/ul Normal 1.2-3.8 [facility] Comment on above: Performed By: #### F ERR #### [facility] [address] [place] [address] Dr. Krystle Heaton Lymphocytes/100 WBC (Bld) 33.3 % Normal 20.5-60.0 [facility] Comment on above: Performed By: #### F ERR #### [facility] [address] [place] [address] Dr. Krystle Heaton MANUAL DIFF REQ NO Normal [facility] Comment on above: Performed By: #### F ERR #### [facility] [address] [place] [address] Dr. Krystle Heaton MCH (RBC) [Entitic mass] 35.6 pg Critically high 25.9-34.0 [facility] Comment on above: Performed By: #### F ERR #### [facility] [address] [place] [address] Dr. Krystle Heaton MCHC (RBC) [Mass/Vol] 32.7 g/dL Normal 29.9-35.2 [facility] Comment on above: Performed By: #### F ERR #### [facility] [address] [place] [address] Dr. Krystle Heaton MCV (RBC) [Entitic vol] 108.9 fL Critically high 80.0-94.0 [facility] Comment on above: Performed By: #### F ERR #### [facility] [address] [place] [address] Dr. Krystle Heaton MONO # 0.4 103/ul Normal 0.3-0.8 [facility] Comment on above: Performed By: #### F ERR #### [facility] [address] [place] [address] Dr. Krystle Heaton Monocytes/100 WBC (Bld) 10.0 % Normal 1.7-12.0 [facility] Comment on above: Performed By: #### F ERR #### [facility] [address] [place] [address] Dr. Krystle Heaton NEUT # 2.1 103/ul Normal 1.4-6.5 [facility] Comment on above: Performed By: #### F ERR #### [facility] [address] [place] [address] Dr. Krystle Heaton Neutrophils/100 WBC (Bld) 53.4 % Normal 43.0-75.0 [facility] Comment on above: Performed By: #### F ERR #### [facility] [address] [place] [address] Dr. Krystle Heaton Platelet mean volume (Bld) [Entitic vol] 10.7 fL Normal 9.5-13.5 [facility] Comment on above: Performed By: #### F ERR #### [facility] [address] [place] [address] Dr. Krystle Heaton PLT 174 103/ul Normal 150-450 [facility] Comment on above: Performed By: #### F ERR #### [facility] [address] [place] [address] Dr. Krystle Heaton RBC 3.15 106/ul Critically low 4.70-6.10 [facility] Comment on above: Result Comment: SLID E REVIEWED. 2+ MACROCYTOSIS SEEN Performed By: #### F ERR #### [facility] [address] [place] [address] Dr. Krystle Heaton WBC 4.0 103/ul Normal 4.0-11.0 [facility] Comment on above: Performed By: #### F ERR #### [facility] [address] [place] [address] Dr. Krystle Heaton FERRITINon 05-04-2021 Ferritin [Mass/Vol] 417.0 ng/mL Normal 17.9-464.0 [facility] Comment on above: Performed By: #### T 7, LIPA, TSH, AMADOU, CMP #### [facility] [address] [place] [address] Dr. Krystle Heaton AFP (TUMOR MARKER)on 021 AFP, Serum, Tumor Marker 5.2 ng/mL Normal 0.0-8.3 [facility] Comment on above: Result Comment: [employer] Electrochemiluminescence Immunoassay (ECLIA) . Values obtained with different assay methods or kits cannot be used interchangeably. Results cannot be interpreted as absolute evidence of the presence or absence of malignant disease. . This test is not interpretable in females. Performed By: #### T 7, LIPA, TSH, AMADOU, CMP #### [facility] [address] [place] [address] Dr. Krystle Heaton [id number] 2020 [id number] , Serum 132 mg/dL Normal 101-187 [facility] Comment on above: Performed By: #### H BSANS #### [facility] [address] [address] Billy Devlin [place] by IFAon 05-02-2021 Antinuclear Antibodies, IFA Negative Normal [facility] Comment on above: Result Comment: Nega tive <1:80 Borderline 1:80 Positive >1:80 Performed By: #### A NAIFA #### [facility] [address] [place] [address] Billy Devlin CERULOPLASMINon 05-02-2021 Ceruloplasmin 27.8 mg/dL Normal 16.0-31.0 [facility] Comment on above: Performed By: #### C BC #### [facility] [address] [place] [address] Billy Devlin HEP A AB TOTALon 05-02-2021 Hep A Ab, Total Negative Normal Negative [facility] Comment on above: Performed By: #### H BSANS #### [facility] [address] [place] [address] Billy Devlin HEP B COREon 05-02-2021 Hep B Core Ab, Tot Negative Normal Negative [facility] Comment on above: Performed By: #### T 7, LIPA, TSH, AMADOU, CMP #### [facility] [address] [id number] Krystle Heaton HEP B SURFACE ANTIGEN SCREEN on 05-02-2021 HBsAg Screen Negative Normal Negative [facility] Comment on above: Performed By: #### H BSANS #### [facility] [address] [place] [address] Billy Devlin HEPATITIS B SURFACE ANTIBODY , QUANTon 05-02-2021 Hepatitis B Surf AB Quant <3.1 Critically low Immunity>9. 9 [facility] Comment on above: Result Comment: Stat us of Immunity Anti-HBs Level Inconsistent with Immunity 0.0 - 9.9 Consistent with Immunity >9.9 Performed By: #### H BSANS #### [facility] [address] [place] [address] Billy Devlin HEPATITIS C ANTIBODYon 05-02 Hep C Virus Ab <0.1 Normal 0.0-0.9 [facility] Comment on above: Result Comment: Nega tive: < 0.8 Indeterminate: 0.8 - 0.9 Positive: > 0.9 . The CDC recommends that a positive HCV antibody result be followed up with a HCV Nucleic Acid Amplification test (019211). Performed By: #### T 7, LA, SAVITA, AMADOU, CMP #### [facility] [address] [place] [address] Dr. Krystle Heaton MITICHONDRIAL (M2) ANTIBODYo n 05-02-2021 Mitochondrial (M2) Antibody <20.0 Normal 0.0-20.0 [facility] Comment on above: Result Comment: Nega tive 0.0 - 20.0 Equivocal 20.1 - 24.9 Positive >24.9 . Mitochondrial (M2) Antibodies are found in 90-96% of patients with primary biliary cirrhosis. Performed By: #### F ERR #### [facility] [address] [place] [address] Dr. Krystle Heaotn CBC AUTO DIFFon 05-01-2021 BASO # 0.1 103/ul Normal 0.0-0.1 [facility] Comment on above: Performed By: #### C BC #### [facility] [address] [place] [address] Billy Devlin Basophils/100 WBC (Bld) 1.5 % Normal 0.2-2.0 [facility] Comment on above: Performed By: #### C BC #### [facility] [address] [place] [address] Billy Devlin EO # 0.1 103/ul Normal 0.0-0.7 [facility] Comment on above: Performed By: #### C BC #### [facility] [address] [place] [address] Billy Quita Eosinophils/100 WBC (Bld) 2.1 % Normal 0.9-7.0 [facility] Comment on above: Performed By: #### C BC #### [facility] [address] [place] [address] Billycarrillo Devlin Erythrocyte distribution width (RBC) [Ratio] 12.7 % Normal 11.0-15.0 [facility] Comment on above: Performed By: #### C BC #### [facility] [address] [place] [address] Billy Quita Hematocrit (Bld) [Volume fraction] 34.6 % Critically low 42.0-54.0 [facility] Comment on above: Performed By: #### C BC #### [facility] [address] [place] [address] Billy Quita Hemoglobin (Bld) [Mass/Vol] 11.2 g/dL Critically low 14.0-18.0 [facility] Comment on above: Performed By: #### C BC #### [facility] [address] [place] [address] Billy Quita IG # 0.01 10e3/ul Normal 0.00-0.03 [facility] Comment on above: Performed By: #### C BC #### [facility] [address] [place] [address] Billy Quita IG % 0.3 % Normal 0.0-0.5 [facility] Comment on above: Performed By: #### C BC #### [facility] [address] [place] [address] Billy Quita LYMPH # 1.0 103/ul Critically low 1.2-3.8 [facility] Comment on above: Performed By: #### C BC #### [facility] [address] [place] [address] Billy Quita Lymphocytes/100 WBC (Bld) 30.4 % Normal 20.5-60.0 [facility] Comment on above: Performed By: #### C BC #### [facility] [address] [place] [address] Billy Quita MANUAL DIFF REQ NO Normal [facility] Comment on above: Performed By: #### C BC #### [facility] [address] [place], [place] [id number] Billy Devlin MCH (RBC) [Entitic mass] 35.8 pg Critically high 25.9-34.0 [facility] Comment on above: Performed By: #### C BC #### [facility] [address] [place], [place] [id number] Billy Devlin MCHC (RBC) [Mass/Vol] 32.4 g/dL Normal 29.9-35.2 [facility] Comment on above: Performed By: #### C BC #### [facility] [address] [place] [address] Billy Devlin MCV (RBC) [Entitic vol] 110.5 fL Critically high 80.0-94.0 [facility] Comment on above: Performed By: #### C BC #### [facility] [address] [place] [address] Billy Devlin MONO # 0.4 103/ul Normal 0.3-0.8 [facility] Comment on above: Performed By: #### C BC #### [facility] [address] [place] [address] Billy Deanen Monocytes/100 WBC (Bld) 11.3 % Normal 1.7-12.0 [facility] Comment on above: Performed By: #### C BC #### [facility] [address] [place], [place] [id number] Billy Devlin NEUT # 1.8 103/ul Normal 1.4-6.5 [facility] Comment on above: Performed By: #### C BC #### [facility] [address] [place], [place] [id number] Billy Quita Neutrophils/100 WBC (Bld) 54.4 % Normal 43.0-75.0 [facility] Comment on above: Performed By: #### C BC #### [facility] [address] [place], [place] [id number] Billy Quita Platelet mean volume (Bld) [Entitic vol] 11.3 fL Normal 9.5-13.5 [facility] Comment on above: Performed By: #### C BC #### [facility] [address] [place], [place] [address] Billy Quita PLT 142 103/ul Critically low 150-450 [facility] Comment on above: Performed By: #### C BC #### [facility] [address] [place], [place] [address] Billy Quita RBC 3.13 106/ul Critically low 4.70-6.10 [facility] Comment on above: Performed By: #### C BC #### [facility] [address] [place], [place] [address] Billy Quita WBC 3.4 103/ul Critically low 4.0-11.0 [facility] Comment on above: Performed By: #### C BC #### [facility] [address] [place], [place] [address] Billy Quita LIVER PROFILEon 05-01-2021 Albumin/Globulin [Mass ratio] 1.0 {ratio} Normal [facility] Comment on above: Performed By: #### H BSANS #### [facility] [address] [place], [place] [address] Billy Quita ALP [Catalytic activity/Vol] 67 U/L Normal 38-126 [facility] Comment on above: Performed By: #### H BSANS #### [facility] [address] [id number] Billy Quita ALT [Catalytic activity/Vol] 52 U/L Normal 21-72 [facility] Comment on above: Performed By: #### H BSANS #### [facility] [address] [place], [place] [address] Billy Quita AST [Catalytic activity/Vol] 51 U/L Normal 17-59 [facility] Comment on above: Performed By: #### H BSANS #### [facility] [address] [place], [place] [address] Billy Quita BILI, CONJUGATED 0.2 mg/dL Normal 0.0-0.3 [facility] Comment on above: Performed By: #### H BSANS #### [facility] [address] [id number] Billy Quita Bilirubin [Mass/Vol] 0.5 mg/dL Normal 0.2-1.3 [facility] Comment on above: Performed By: #### H BSANS #### [facility] [address] [id number] Billy Quita Globulin (S) [Mass/Vol] 3.4 g/dL Normal [facility] Comment on above: Performed By: #### H BSANS #### [facility] [address] [place] [address] Billy Quita Protein [Mass/Vol] 6.9 g/dL Normal 6.1-8.2 [facility] Comment on above: Performed By: #### H BSANS #### [facility] [address] [place], [place] [id number] Billy Quita PROTIMEon 05-01-2021 INR Coag (PPP) [Relative time] 0.95 {INR} Normal [facility] Comment on above: Performed By: #### C BC #### [facility] [address] [place], [place] [id number] Billy Quita INR GUIDELINES SEE BELOW Normal [facility] Comment on above: Result Comment: MOUNA RED INR: 2.0 - 3.0 CONDITIONS NOT LISTED BELOW 2.5 - 3.5 FOR PROSTHETIC HEART VALVE REPLACEMENT 2.5 - 3.5 RECURRENT THROMBOSIS Performed By: #### C BC #### [facility] [address] [place], [place] [id number] Billy Quita PT Coag (PPP) [Time] 10.4 s Normal 9.0-11.6 [facility] Comment on above: Performed By: #### C BC #### [facility] [address] [place], [place] [id number] Billy Quita RENAL FUNCTION PANELon 05-01 Albumin [Mass/Vol] 3.5 g/dL Normal 3.5-5.0 [facility] Comment on above: Performed By: #### H BSANS #### [facility] [address] [place], [place] [id number] Billy Quita Calcium [Mass/Vol] 8.7 mg/dL Normal 8.4-10.2 [facility] Comment on above: Performed By: #### H BSANS #### [facility] [address] [place] [address] Billy Quita Chloride [Moles/Vol] 104 mmol/L Normal 98-107 [facility] Comment on above: Performed By: #### H BSANS #### [facility] [address] [place] [address] Billy Quita CO2 [Moles/Vol] 25.7 mmol/L Normal 22.0-30.0 [facility] Comment on above: Performed By: #### H BSANS #### [facility] [address] [place] [address] Billy Quita Creatinine [Mass/Vol] 1.01 mg/dL Normal 0.66-1.25 [facility] Comment on above: Performed By: #### H BSANS #### [facility] [address] [place] [address] Billy Quita EGFR-AF TUVALUAN >60 Normal >=60 [facility] Comment on above: Performed By: #### H BSANS #### [facility] [address] [place] [address] Billy Quita EGFR-NON AF TUVALUAN >60 Normal >=60 [facility] Comment on above: Performed By: #### H BSANS #### [facility] [address] [place] [address] Billy Quita Glucose [Mass/Vol] 103 mg/dL Normal 74-106 [facility] Comment on above: Performed By: #### H BSANS #### [facility] [address] [place] [address] Billy Quita Phosphate [Mass/Vol] 3.6 mg/dL Normal 2.5-4.5 [facility] Comment on above: Performed By: #### H BSANS #### [facility] [address] [place] [address] Billy Quita Potassium [Moles/Vol] 4.2 mmol/L Normal 3.4-5.0 [facility] Comment on above: Performed By: #### H BSANS #### [facility] [address] [place] [address] Billy Devlin Sodium [Moles/Vol] 138 mmol/L Normal 137-145 [facility] Comment on above: Performed By: #### H BSANS #### [facility] [address] [place] [address] Billy Devlin Urea nitrogen [Mass/Vol] 7.0 mg/dL Critically low 9.0-20.0 [facility] Comment on above: Performed By: #### H BSANS #### [facility] [address] [place] [address] Billy Devlin CBC AUTO DIFFon 04-27-2021 BASO # 0.0 103/ul Normal 0.0-0.1 [facility] Comment on above: Performed By: #### T 7, LIPA, TSH, AMADOU, CMP #### [facility] [address] [place] [address] Dr. Krystle Heaton Basophils/100 WBC (Bld) 0.9 % Normal 0.2-2.0 [facility] Comment on above: Performed By: #### T 7, LIPA, TSH, AMADOU, CMP #### [facility] [address] [place] [address] Dr. Krystle Heaton EO # 0.1 103/ul Normal 0.0-0.7 [facility] Comment on above: Performed By: #### T 7, LIPA, TSH, AMADOU, CMP #### [facility] [address] [place] [address] Dr. Krystle Heaton Eosinophils/100 WBC (Bld) 2.6 % Normal 0.9-7.0 [facility] Comment on above: Performed By: #### T 7, LIPA, TSH, AMADOU, CMP #### [facility] [address] [place] [address] Dr. Krystle Heaton Erythrocyte distribution width (RBC) [Ratio] 12.4 % Normal 11.0-15.0 [facility] Comment on above: Performed By: #### T 7, LIPA, TSH, AMADOU, CMP #### [facility] [address] [place] [address] Dr. Krystle Heaton Hematocrit (Bld) [Volume fraction] 36.8 % Critically low 42.0-54.0 [facility] Comment on above: Performed By: #### T 7, LIPA, TSH, AMADOU, CMP #### [facility] [address] [place] [address] Dr. Krystle Heaton Hemoglobin (Bld) [Mass/Vol] 12.0 g/dL Critically low 14.0-18.0 [facility] Comment on above: Performed By: #### T 7, LIPA, TSH, AMADOU, CMP #### [facility] [address] [place] [address] Dr. Krystle Heaton IG # 0.02 10e3/ul Normal 0.00-0.03 [facility] Comment on above: Performed By: #### T 7, LIPA, TSH, AMADOU, CMP #### [facility] [address] [place] [address] Dr. Krystle Heaton IG % 0.4 % Normal 0.0-0.5 [facility] Comment on above: Performed By: #### T 7, LIPA, TSH, AMADOU, CMP #### [facility] [address] [place] [address] Dr. Krystle Heaton LYMPH # 1.2 103/ul Normal 1.2-3.8 [facility] Comment on above: Performed By: #### T 7, LIPA, TSH, AMADOU, CMP #### [facility] [address] [place] [address] Dr. Krystle Heaton Lymphocytes/100 WBC (Bld) 26.0 % Normal 20.5-60.0 [facility] Comment on above: Performed By: #### T 7, LIPA, TSH, AMADOU, CMP #### [facility] [address] [place] [address] Dr. Krystle eHaton MANUAL DIFF REQ NO Normal [facility] Comment on above: Performed By: #### T 7, LIPA, TSH, AMADOU, CMP #### [facility] [address] [place] [address] Dr. Krystle Heaton MCH (RBC) [Entitic mass] 36.4 pg Critically high 25.9-34.0 [facility] Comment on above: Performed By: #### T 7, LIPA, TSH, AMADOU, CMP #### [facility] [address] [place] [address] Dr. Krystle Heaton MCHC (RBC) [Mass/Vol] 32.6 g/dL Normal 29.9-35.2 [facility] Comment on above: Performed By: #### T 7, LIPA, TSH, AMADOU, CMP #### [facility] [address] [place] [address] Dr. Krystle Heaton MCV (RBC) [Entitic vol] 111.5 fL Critically high 80.0-94.0 [facility] Comment on above: Performed By: #### T 7, LIPA, TSH, AMADOU, CMP #### [facility] [address] [place] [address] Dr. Krystle Heaton MONO # 0.5 103/ul Normal 0.3-0.8 [facility] Comment on above: Performed By: #### T 7, LIPA, TSH, AMADOU, CMP #### [facility] [address] [place] [address] Dr. Krystle Heaton Monocytes/100 WBC (Bld) 10.1 % Normal 1.7-12.0 [facility] Comment on above: Performed By: #### T 7, LIPA, TSH, AMADOU, CMP #### [facility] [address] [place] [address] Dr. Krystle Heaton NEUT # 2.8 103/ul Normal 1.4-6.5 [facility] Comment on above: Performed By: #### T 7, LIPA, TSH, AMADOU, CMP #### [facility] [address] [place] [address] Dr. Krystle Heaton Neutrophils/100 WBC (Bld) 60.0 % Normal 43.0-75.0 [facility] Comment on above: Performed By: #### T 7, LIPA, TSH, AMADOU, CMP #### [facility] [address] [place] [address] Dr. Krystle Heaton Platelet mean volume (Bld) [Entitic vol] 11.0 fL Normal 9.5-13.5 [facility] Comment on above: Performed By: #### T 7, LIPA, TSH, AMADOU, CMP #### [facility] [address] [place] [address] Dr. Krystle Heaton PLT 140 103/ul Critically low 150-450 [facility] Comment on above: Performed By: #### T 7, LIPA, TSH, AMADOU, CMP #### [facility] [address] [place] [address] Dr. Krystle Heaton RBC 3.30 106/ul Critically low 4.70-6.10 [facility] Comment on above: Performed By: #### T 7, LIPA, TSH, AMADOU, CMP #### [facility] [address] [place] [address] Dr. Krystle Heaton WBC 4.7 103/ul Normal 4.0-11.0 [facility] Comment on above: Performed By: #### T 7, LIPA, TSH, AMADOU, CMP #### [facility] [address] [place] [address] Dr. Krystle Heaton FERRITINon 04-27-2021 Ferritin [Mass/Vol] 845.0 ng/mL Critically high 17.9-464.0 [facility] Comment on above: Performed By: #### F ERR #### [facility] [address] [place] [address] Dr. Krystle Heaton CBC AUTO DIFFon 04-18-2021 BASO # 0.1 103/ul Normal 0.0-0.1 [facility] Comment on above: Performed By: #### T 7, LIPA, TSH, AMADOU, CMP #### [facility] [address] [place] [address] Dr. Krystle Heaton Basophils/100 WBC (Bld) 1.1 % Normal 0.2-2.0 [facility] Comment on above: Performed By: #### T 7, LIPA, TSH, AMADOU, CMP #### [facility] [address] [place] [address] Dr. Krystle Heaton EO # 0.1 103/ul Normal 0.0-0.7 [facility] Comment on above: Performed By: #### T 7, LIPA, TSH, AMADOU, CMP #### [facility] [address] [place] [address] Dr. Krystle Heaton Eosinophils/100 WBC (Bld) 2.2 % Normal 0.9-7.0 [facility] Comment on above: Performed By: #### T 7, LIPA, TSH, AMADOU, CMP #### [facility] [address] [place] [address] Dr. Krystle Heaton Erythrocyte distribution width (RBC) [Ratio] 13.1 % Normal 11.0-15.0 [facility] Comment on above: Performed By: #### T 7, LIPA, TSH, AMADOU, CMP #### [facility] [address] [place] [address] Dr. Krystle Heaton Hematocrit (Bld) [Volume fraction] 35.2 % Critically low 42.0-54.0 [facility] Comment on above: Performed By: #### T 7, LIPA, TSH, AMADOU, CMP #### [facility] [address] [place] [address] Dr. Krystle Heaton Hemoglobin (Bld) [Mass/Vol] 11.8 g/dL Critically low 14.0-18.0 [facility] Comment on above: Performed By: #### T 7, LIPA, TSH, AMADOU, CMP #### [facility] [address] [place] [address] Dr. Krystle Heaton IG # 0.01 10e3/ul Normal 0.00-0.03 [facility] Comment on above: Performed By: #### T 7, LIPA, TSH, AMADOU, CMP #### [facility] [address] [place] [address] Dr. Krystle Heaton IG % 0.2 % Normal 0.0-0.5 [facility] Comment on above: Performed By: #### T 7, LIPA, TSH, AMADOU, CMP #### [facility] [address] [place] [address] Dr. Krystle Heaton LYMPH # 1.6 103/ul Normal 1.2-3.8 [facility] Comment on above: Performed By: #### T 7, LIPA, TSH, AMADOU, CMP #### [facility] [address] [place] [address] Dr. Krystle Heaton Lymphocytes/100 WBC (Bld) 35.1 % Normal 20.5-60.0 [facility] Comment on above: Performed By: #### T 7, LIPA, TSH, AMADOU, CMP #### [facility] [address] [place] [address] Dr. Krystle Heaton MANUAL DIFF REQ NO Normal [facility] Comment on above: Performed By: #### T 7, LIPA, TSH, AMADOU, CMP #### [facility] [address] [place] [address] Dr. Krystle Heaton MCH (RBC) [Entitic mass] 36.6 pg Critically high 25.9-34.0 [facility] Comment on above: Performed By: #### T 7, LIPA, TSH, AMADOU, CMP #### [facility] [address] [place] [address] Dr. Krystle Heaton MCHC (RBC) [Mass/Vol] 33.5 g/dL Normal 29.9-35.2 [facility] Comment on above: Performed By: #### T 7, LIPA, TSH, AMADOU, CMP #### [facility] [address] [place] [address] Dr. Krystle Heaton MCV (RBC) [Entitic vol] 109.3 fL Critically high 80.0-94.0 [facility] Comment on above: Performed By: #### T 7, LIPA, TSH, AMADOU, CMP #### [facility] [address] [place] [address] Dr. Krystle Heaton MONO # 0.5 103/ul Normal 0.3-0.8 [facility] Comment on above: Performed By: #### T 7, LIPA, TSH, AMADOU, CMP #### [facility] [address] [place] [address] Dr. Krystle Heaton Monocytes/100 WBC (Bld) 11.0 % Normal 1.7-12.0 [facility] Comment on above: Performed By: #### T 7, LIPA, TSH, AMADOU, CMP #### [facility] [address] [place] [address] Dr. Krystle Heaton NEUT # 2.2 103/ul Normal 1.4-6.5 [facility] Comment on above: Performed By: #### T 7, LIPA, TSH, AMADOU, CMP #### [facility] [address] [place] [address] Dr. Krystle Heaton Neutrophils/100 WBC (Bld) 50.4 % Normal 43.0-75.0 [facility] Comment on above: Performed By: #### T 7, LIPA, TSH, AMADOU, CMP #### [facility] [address] [place] [address] Dr. Krystle Heaton Platelet mean volume (Bld) [Entitic vol] 10.9 fL Normal 9.5-13.5 [facility] Comment on above: Performed By: #### T 7, LIPA, TSH, AMADOU, CMP #### [facility] [address] [place] [address] Dr. Krystle Heaton PLT 158 103/ul Normal 150-450 [facility] Comment on above: Performed By: #### T 7, LIPA, TSH, AMADOU, CMP #### [facility] [address] [place] [address] Dr. Krystle Heaton RBC 3.22 106/ul Critically low 4.70-6.10 [facility] Comment on above: Performed By: #### T 7, LIPA, TSH, AMADOU, CMP #### [facility] [address] [place] [address] Dr. Krystle Heaton WBC 4.5 103/ul Normal 4.0-11.0 [facility] Comment on above: Performed By: #### T 7, LIPA, TSH, AMADOU, CMP #### [facility] [address] [place] [address] Dr. Krystle Heaton FERRITINon 04-18-2021 Ferritin [Mass/Vol] ng/mL Critically high 17.9-464.0 [facility] Comment on above: Performed By: #### H BSANS #### [facility] [address] [place] [address] Billy Devlin CBC AUTO DIFFon 04-13-2021 BASO # 0.0 103/ul Normal 0.0-0.1 [facility] Comment on above: Performed By: #### T 7, LIPA, TSH, AMADOU, CMP #### [facility] [address] [place] [address] Dr. Krystle Heaton Basophils/100 WBC (Bld) 0.6 % Normal 0.2-2.0 [facility] Comment on above: Performed By: #### T 7, LIPA, TSH, AMADOU, CMP #### [facility] [address] [place] [address] Dr. Krystle Heaton EO # 0.1 103/ul Normal 0.0-0.7 [facility] Comment on above: Performed By: #### T 7, LIPA, TSH, AMADOU, CMP #### [facility] [address] [place] [address] Dr. Krystle Heaton Eosinophils/100 WBC (Bld) 3.2 % Normal 0.9-7.0 [facility] Comment on above: Performed By: #### T 7, LIPA, TSH, AMADOU, CMP #### [facility] [address] [place] [address] Dr. Krystle Heaton Erythrocyte distribution width (RBC) [Ratio] 13.6 % Normal 11.0-15.0 [facility] Comment on above: Performed By: #### T 7, LIPA, TSH, AMADOU, CMP #### [facility] [address] [place] [address] Dr. Krystle Heaton Hematocrit (Bld) [Volume fraction] 35.3 % Critically low 42.0-54.0 [facility] Comment on above: Performed By: #### T 7, LIPA, TSH, AMADOU, CMP #### [facility] [address] [place] [address] Dr. Krystle Heaton Hemoglobin (Bld) [Mass/Vol] 11.9 g/dL Critically low 14.0-18.0 [facility] Comment on above: Performed By: #### T 7, LIPA, TSH, AMADOU, CMP #### [facility] [address] [place] [address] Dr. Krystle Heaton IG # 0.01 10e3/ul Normal 0.00-0.03 [facility] Comment on above: Performed By: #### T 7, LIPA, TSH, AMADOU, CMP #### [facility] [address] [place] [address] Dr. Krystle Heaton IG % 0.3 % Normal 0.0-0.5 [facility] Comment on above: Performed By: #### T 7, LIPA, TSH, AMADOU, CMP #### [facility] [address] [place] [address] Dr. Krystle Heaton LYMPH # 1.1 103/ul Critically low 1.2-3.8 [facility] Comment on above: Performed By: #### T 7, LIPA, TSH, AMADOU, CMP #### [facility] [address] [place] [address] Dr. Krystle Heaton Lymphocytes/100 WBC (Bld) 35.1 % Normal 20.5-60.0 [facility] Comment on above: Performed By: #### T 7, LIPA, TSH, AMADOU, CMP #### [facility] [address] [place] [address] Dr. Krystle Heaton MANUAL DIFF REQ NO Normal [facility] Comment on above: Performed By: #### T 7, LIPA, TSH, AMADOU, CMP #### [facility] [address] [place] [address] Dr. Krystle Heaton MCH (RBC) [Entitic mass] 37.1 pg Critically high 25.9-34.0 [facility] Comment on above: Performed By: #### T 7, LIPA, TSH, AMADOU, CMP #### [facility] [address] [place] [address] Dr. Krystle Heaton MCHC (RBC) [Mass/Vol] 33.7 g/dL Normal 29.9-35.2 [facility] Comment on above: Performed By: #### T 7, LIPA, TSH, AMADOU, CMP #### [facility] [address] [place] [address] Dr. Krystle Heaton MCV (RBC) [Entitic vol] 110.0 fL Critically high 80.0-94.0 [facility] Comment on above: Result Comment: macr ocytosis 3+ Performed By: #### T 7, LIPA, TSH, AMADOU, CMP #### [facility] [address] [place] [address] Dr. Krystle Heaton MONO # 0.3 103/ul Normal 0.3-0.8 [facility] Comment on above: Performed By: #### T 7, LIPA, TSH, AMADOU, CMP #### [facility] [address] [place] [address] Dr. Krystle Heaton Monocytes/100 WBC (Bld) 10.7 % Normal 1.7-12.0 [facility] Comment on above: Performed By: #### T 7, LIPA, TSH, AMADOU, CMP #### [facility] [address] [place] [address] Dr. Krystle Heaton NEUT # 1.5 103/ul Normal 1.4-6.5 [facility] Comment on above: Performed By: #### T 7, LIPA, TSH, AMADOU, CMP #### [facility] [address] [place] [address] Dr. Krystle Heaton Neutrophils/100 WBC (Bld) 50.1 % Normal 43.0-75.0 [facility] Comment on above: Performed By: #### T 7, LIPA, TSH, AMADOU, CMP #### [facility] [address] [place] [address] Dr. Krystle Heaton Platelet mean volume (Bld) [Entitic vol] 10.8 fL Normal 9.5-13.5 [facility] Comment on above: Performed By: #### T 7, LIPA, TSH, AMADOU, CMP #### [facility] [address] [place] [address] Dr. Krystle Heaton PLT 131 103/ul Critically low 150-450 [facility] Comment on above: Performed By: #### T 7, LIPA, TSH, AMADOU, CMP #### [facility] [address] [address] [address] Krystle Heaton RBC 3.21 106/ul Critically low 4.70-6.10 [facility] Comment on above: Performed By: #### T 7, LIPA, TSH, AMADOU, CMP #### [facility] [address] [address] [address] Krystle Heaton WBC 3.1 103/ul Critically low 4.0-11.0 [facility] Comment on above: Performed By: #### T 7, LIPA, TSH, AMADOU, CMP #### [facility] [address] [address] [address] Krystle Heaton FERRITINon 04-13-2021 Ferritin [Mass/Vol] ng/mL Critically high 17.9-464.0 [facility] Comment on above: Performed By: #### F ERR #### [facility] [address] [address] [address] Krystle Heaton Initial Visit (Gastroenterol ogy)on [...] Apr 13 2021 1:09PM EST (Author) Normal [facility] CBC AUTO DIFFon 05-28-2021 BASO # 0.0 103/ul Normal 0.0-0.1 [facility] Comment on above: Performed By: #### H ALEXANDER #### [facility] [address] [place] [address] Billy Quita Basophils/100 WBC (Bld) 0.9 % Normal 0.2-2.0 [facility] Comment on above: Performed By: #### H ALEXANDER #### [facility] [address] [place] [address] Billy Quita EO # 0.1 103/ul Normal 0.0-0.7 [facility] Comment on above: Performed By: #### H ALEXANDER #### [facility] [address] [place] [address] Billy Quita Eosinophils/100 WBC (Bld) 3.0 % Normal 0.9-7.0 [facility] Comment on above: Performed By: #### H ALEXANDER #### [facility] [address] [place] [address] Billy Quita Erythrocyte distribution width (RBC) [Ratio] 13.6 % Normal 11.0-15.0 [facility] Comment on above: Performed By: #### H ALEXANDER #### [facility] [address] [place] [address] Billy Quita Hematocrit (Bld) [Volume fraction] 39.1 % Critically low 42.0-54.0 [facility] Comment on above: Performed By: #### H ALEXANDER #### [facility] [address] [place] [address] Billy Quita Hemoglobin (Bld) [Mass/Vol] 13.1 g/dL Critically low 14.0-18.0 [facility] Comment on above: Performed By: #### H ALEXANDER #### [facility] [address] [place] [address] Billy Quita IG # 0.02 10e3/ul Normal 0.00-0.03 [facility] Comment on above: Performed By: #### H ALEXANDER #### [facility] [address] [place] [address] Billycarrillo Devlin IG % 0.5 % Normal 0.0-0.5 [facility] Comment on above: Performed By: #### H ALEXANDER #### [facility] [address] [place] [address] Billy Devlin LYMPH # 1.1 103/ul Critically low 1.2-3.8 [facility] Comment on above: Performed By: #### H ALEXANDER #### [facility] [address] [place] [address] Billy Quita Lymphocytes/100 WBC (Bld) 26.7 % Normal 20.5-60.0 [facility] Comment on above: Performed By: #### H ALEXANDER #### [facility] [address] [place] [address] Billy Devlin MANUAL DIFF REQ NO Normal [facility] Comment on above: Performed By: #### H ALEXANDER #### [facility] [address] [place] [address] Billy Quita MCH (RBC) [Entitic mass] 36.7 pg Critically high 25.9-34.0 [facility] Comment on above: Performed By: #### H ALEXANDER #### [facility] [address] [place] [address] Billy Deanen MCHC (RBC) [Mass/Vol] 33.5 g/dL Normal 29.9-35.2 [facility] Comment on above: Result Comment: macr ocytosis Performed By: #### H ALEXANDER #### [facility] [address] [place] [address] Billy Quita MCV (RBC) [Entitic vol] 109.5 fL Critically high 80.0-94.0 [facility] Comment on above: Performed By: #### H ALEXANDER #### [facility] [address] [place] [address] Billy Devlin MONO # 0.4 103/ul Normal 0.3-0.8 [facility] Comment on above: Performed By: #### H ALEXANDER #### [facility] [address] [place] [address] Billy Devlin Monocytes/100 WBC (Bld) 8.7 % Normal 1.7-12.0 [facility] Comment on above: Performed By: #### H ANJUMNS #### [facility] [address] [place] [address] Billy Devlin NEUT # 2.6 103/ul Normal 1.4-6.5 [facility] Comment on above: Performed By: #### H BSANS #### [facility] [address] [place] [address] Billy Devlin Neutrophils/100 WBC (Bld) 60.2 % Normal 43.0-75.0 [facility] Comment on above: Performed By: #### H ALEXANDER #### [facility] [address] [place] [address] Billy Devlin Platelet mean volume (Bld) [Entitic vol] 11.1 fL Normal 9.5-13.5 [facility] Comment on above: Performed By: #### H BSASUZANNE #### [facility] [address] [place] [address] Billycarrillo Devlin PLT 162 103/ul Normal 150-450 [facility] Comment on above: Performed By: #### H BSASUZANNE #### [facility] [address] [place] [address] Billy Devlin RBC 3.57 106/ul Critically low 4.70-6.10 [facility] Comment on above: Performed By: #### H BSASUZANNE #### [facility] [address] [place] [address] Billycarrillo Devlin WBC 4.3 103/ul Normal 4.0-11.0 [facility] Comment on above: Performed By: #### H BSANS #### [facility] [address] [place] [address] Billy Devlin FERRITINon 04-06-2021 Ferritin [Mass/Vol] ng/mL Critically high 17.9-464.0 [facility] Comment on above: Performed By: #### T 7, LIPA, TSH, AMADOU, CMP #### [facility] [address] [place], [place] [id number] Dr. Krystle Heaton FREE T4on 04-06-2021 Free T4 [Mass/Vol] 0.73 ng/dL Critically low 0.78-2.19 [facility] Comment on above: Performed By: #### T 7, LIPA, TSH, AMADOU, CMP #### [facility] [address] [place] [address] Dr. Krystle Heaton IRON AND TIBCon 04-06-2021 % SATURATION 54.8 % Normal [facility] Comment on above: Performed By: #### T 7, LIPA, TSH, AMADOU, CMP #### [facility] [address] [place] [address] Dr. Krystle Heaton Iron [Mass/Vol] 161.0 ug/dL Normal 49.0-181.0 [facility] Comment on above: Performed By: #### T 7, LIPA, TSH, AMADOU, CMP #### [facility] [address] [place] [address] Dr. Krystle Heaton TIBC DIRECT 294.0 ug/dL Normal 261.0-497.0 [facility] Comment on above: Performed By: #### T 7, LIPA, TSH, AMADOU, CMP #### [facility] [address] [place] [address] Dr. Krystle Heaton PROF 14(COMP METB)on 021 Albumin [Mass/Vol] 3.7 g/dL Normal 3.5-5.0 [facility] Comment on above: Performed By: #### T 7, LIPA, TSH, AAMDOU, CMP #### [facility] [address] [place] [address] Dr. Krystle Heaton Albumin/Globulin [Mass ratio] 1.0 {ratio} Normal [facility] Comment on above: Performed By: #### T 7, LIPA, TSH, AMADOU, CMP #### [facility] [address] [place] [address] Dr. Krystle Heaton ALP [Catalytic activity/Vol] 83 U/L Normal 38-126 [facility] Comment on above: Performed By: #### T 7, LIPA, TSH, AMADOU, CMP #### [facility] [address] [place] [address] Dr. Krystle Heaton ALT [Catalytic activity/Vol] 140 U/L Critically high 21-72 [facility] Comment on above: Performed By: #### T 7, LIPA, TSH, AMADOU, CMP #### [facility] [address] [place] [address] Dr. Krystle Heaton Anion gap [Moles/Vol] 15.8 mmol/L Normal [facility] Comment on above: Performed By: #### T 7, LIPA, TSH, AMADOU, CMP #### [facility] [address] [place] [address] Dr. Krystle Heaton AST [Catalytic activity/Vol] 186 U/L Critically high 17-59 [facility] Comment on above: Performed By: #### T 7, LIPA, TSH, AMADOU, CMP #### [facility] [address] [place] [address] Dr. Krystle Heaton Bilirubin [Mass/Vol] 0.5 mg/dL Normal 0.2-1.3 [facility] Comment on above: Performed By: #### T 7, LIPA, TSH, AMADOU, CMP #### [facility] [address] [place] [address] Dr. Krystle Heaton Calcium [Mass/Vol] 9.0 mg/dL Normal 8.4-10.2 [facility] Comment on above: Performed By: #### T 7, LIPA, TSH, AMADOU, CMP #### [facility] [address] [place] [address] Dr. Krystle Heaton Chloride [Moles/Vol] 101 mmol/L Normal 98-107 [facility] Comment on above: Performed By: #### T 7, LIPA, TSH, AMADOU, CMP #### [facility] [address] [place] [address] Dr. Krystle Heaton CO2 [Moles/Vol] 25.8 mmol/L Normal 22.0-30.0 [facility] Comment on above: Performed By: #### T 7, LIPA, TSH, AMADOU, CMP #### [facility] [address] [place] [address] Dr. Krystle Heaton Creatinine [Mass/Vol] 1.07 mg/dL Normal 0.66-1.25 [facility] Comment on above: Performed By: #### T 7, LIPA, TSH, AMADOU, CMP #### [facility] [address] [address] [address] Krystle Heaton EGFR-AF TUVALUAN >60 Normal >=60 [facility] Comment on above: Performed By: #### T 7, LIPA, TSH, AMADOU, CMP #### [facility] [address] [address] [address] Krystle Heaton EGFR-NON AF TUVALUAN >60 Normal >=60 [facility] Comment on above: Performed By: #### T 7, LIPA, TSH, AMADOU, CMP #### [facility] [address] [address] [address] Krystle Heaton Globulin (S) [Mass/Vol] 3.7 g/dL Normal [facility] Comment on above: Performed By: #### T 7, LIPA, TSH, AMADOU, CMP #### [facility] [address] [address] [address] Krystle Heaton Glucose [Mass/Vol] 104 mg/dL Normal 74-106 [facility] Comment on above: Performed By: #### T 7, LIPA, TSH, AMADOU, CMP #### [facility] [address] [address] [address] Krystle Heaton Potassium [Moles/Vol] 4.6 mmol/L Normal 3.4-5.0 [facility] Comment on above: Performed By: #### T 7, LIPA, TSH, AMADOU, CMP #### [facility] [address] [address] [address] Krystle Heaton Protein [Mass/Vol] 7.4 g/dL Normal 6.1-8.2 [facility] Comment on above: Performed By: #### T 7, LIPA, TSH, AMADOU, CMP #### [facility] [address] [address] [address] Krystle Heaton Sodium [Moles/Vol] 138 mmol/L Normal 137-145 [facility] Comment on above: Performed By: #### T 7, LIPA, TSH, AMADOU, CMP #### [facility] [address] [place] [address] Dr. Krystle Heaton Urea nitrogen [Mass/Vol] 10.0 mg/dL Normal 9.0-20.0 [facility] Comment on above: Performed By: #### T 7, LIPA, TSH, AMADOU, CMP #### [facility] [address] [place] [address] Dr. Krystle Heaton Urea nitrogen/Creatinine [Mass ratio] 9.3 mg/mg Normal [facility] Comment on above: Performed By: #### T 7, LIPA, TSH, AMADOU, CMP #### [facility] [address] [place] [address] Dr. Krystle Heaton TSHon 04-06-2021 TSH 1.945 uIU/mL Normal 0.470-4.680 [facility] Comment on above: Performed By: #### T 7, LIPA, TSH, AMADOU, CMP #### [facility] [address] [place] [address] Dr. Krystle Heaton TSH RANGE SEE BELOW Normal [facility] Comment on above: Result Comment: <0.3 4 UIU/ml HYPERTHYROID 0.34-5.60 UIU/ml EUTHYROID >5.60 UIU/ml HYPOTHYROID Performed By: #### T 7, LIPA, TSH, AMADOU, CMP #### [facility] [address] [place] [address] Dr. Krystle Heaton CBC AUTO DIFFon 03-30-2021 BASO # 0.0 103/ul Normal 0.0-0.1 [facility] Comment on above: Performed By: #### T 7, LIPA, TSH, AMADOU, CMP #### [facility] [address] [place] [address] Dr. Krystle Heaton Basophils/100 WBC (Bld) 0.8 % Normal 0.2-2.0 [facility] Comment on above: Performed By: #### T 7, LIPA, TSH, AMADOU, CMP #### [facility] [address] [place] [address] Dr. Krystle Heaton EO # 0.1 103/ul Normal 0.0-0.7 [facility] Comment on above: Performed By: #### T 7, LIPA, TSH, AMADOU, CMP #### [facility] [address] [place] [address] Dr. Krystle Heaton Eosinophils/100 WBC (Bld) 3.0 % Normal 0.9-7.0 [facility] Comment on above: Performed By: #### T 7, LIPA, TSH, AMADOU, CMP #### [facility] [address] [place] [address] Dr. Krystle Heaton Erythrocyte distribution width (RBC) [Ratio] 13.9 % Normal 11.0-15.0 [facility] Comment on above: Performed By: #### T 7, LIPA, TSH, AMADOU, CMP #### [facility] [address] [place] [address] Dr. Krystle Heaton Hematocrit (Bld) [Volume fraction] 40.4 % Critically low 42.0-54.0 [facility] Comment on above: Performed By: #### T 7, LIPA, TSH, AMADOU, CMP #### [facility] [address] [place] [address] Dr. Krystle Heaton Hemoglobin (Bld) [Mass/Vol] 13.5 g/dL Critically low 14.0-18.0 [facility] Comment on above: Performed By: #### T 7, LIPA, TSH, AMADOU, CMP #### [facility] [address] [place] [address] Dr. Krystle Heaton IG # 0.01 10e3/ul Normal 0.00-0.03 [facility] Comment on above: Performed By: #### T 7, LIPA, TSH, AMADOU, CMP #### [facility] [address] [place] [address] Dr. Krystle Heaton IG % 0.3 % Normal 0.0-0.5 [facility] Comment on above: Performed By: #### T 7, LIPA, TSH, AMADOU, CMP #### [facility] [address] [place] [address] Dr. Krystle Heaton LYMPH # 1.2 103/ul Normal 1.2-3.8 [facility] Comment on above: Performed By: #### T 7, LIPA, TSH, AMADOU, CMP #### [facility] [address] [place] [address] Dr. Krystle Heaton Lymphocytes/100 WBC (Bld) 32.7 % Normal 20.5-60.0 [facility] Comment on above: Performed By: #### T 7, LIPA, TSH, AMADOU, CMP #### [facility] [address] [place] [address] Dr. Krystle Heaton MANUAL DIFF REQ NO Normal [facility] Comment on above: Performed By: #### T 7, LIPA, TSH, AMADOU, CMP #### [facility] [address] [place] [address] Dr. Krystle Heaton MCH (RBC) [Entitic mass] 36.5 pg Critically high 25.9-34.0 [facility] Comment on above: Performed By: #### T 7, LIPA, TSH, AMADOU, CMP #### [facility] [address] [place] [address] Dr. Krystle Heaton MCHC (RBC) [Mass/Vol] 33.4 g/dL Normal 29.9-35.2 [facility] Comment on above: Result Comment: MACR OCYTOSIS PRESENT Performed By: #### T 7, LIPA, TSH, AMADOU, CMP #### [facility] [address] [place] [address] Dr. Krystle Heaton MCV (RBC) [Entitic vol] 109.2 fL Critically high 80.0-94.0 [facility] Comment on above: Performed By: #### T 7, LIPA, TSH, AMADOU, CMP #### [facility] [address] [place] [address] Dr. Krystle Heaton MONO # 0.4 103/ul Normal 0.3-0.8 [facility] Comment on above: Performed By: #### T 7, LIPA, TSH, AMADOU, CMP #### [facility] [address] [place] [address] Dr. Krystle Heaton Monocytes/100 WBC (Bld) 11.4 % Normal 1.7-12.0 [facility] Comment on above: Performed By: #### T 7, LIPA, TSH, AMADOU, CMP #### [facility] [address] [place] [address] Dr. Krystle Heaton NEUT # 1.9 103/ul Normal 1.4-6.5 [facility] Comment on above: Performed By: #### T 7, LIPA, TSH, AMADOU, CMP #### [facility] [address] [place] [address] Dr. Krystle Heaton Neutrophils/100 WBC (Bld) 51.8 % Normal 43.0-75.0 [facility] Comment on above: Performed By: #### T 7, LIPA, TSH, AMADOU, CMP #### [facility] [address] [place] [address] Dr. Krystle Heaton Platelet mean volume (Bld) [Entitic vol] 10.8 fL Normal 9.5-13.5 [facility] Comment on above: Performed By: #### T 7, LIPA, TSH, AMADOU, CMP #### [facility] [address] [place] [address] Dr. Krystle Heaton PLT 184 103/ul Normal 150-450 [facility] Comment on above: Performed By: #### T 7, LIPA, TSH, AMADOU, CMP #### [facility] [address] [place] [address] Dr. Krystle Heaton RBC 3.70 106/ul Critically low 4.70-6.10 [facility] Comment on above: Performed By: #### T 7, LIPA, TSH, AMADOU, CMP #### [facility] [address] [place] [address] Dr. Krystle Heaton WBC 3.6 103/ul Critically low 4.0-11.0 [facility] Comment on above: Performed By: #### T 7, LIPA, TSH, AMADOU, CMP #### [facility] [address] [place] [address] Dr. Krystle Heaton FERRITINon 03-30-2021 Ferritin [Mass/Vol] ng/mL Critically high 17.9-464.0 [facility] Comment on above: Performed By: #### F ERR #### [facility] [address] [place] [address] Dr. Krystle Heaton FREE T4on 03-30-2021 Free T4 [Mass/Vol] 0.83 ng/dL Normal 0.78-2.19 [facility] Comment on above: Performed By: #### F ERR #### [facility] [address] [place] [address] Dr. Krystle Heaton IRON AND TIBCon 03-30-2021 % SATURATION 78.5 % Normal [facility] Comment on above: Performed By: #### F ERR #### [facility] [address] [place] [address] Dr. Krystle Heaton Iron [Mass/Vol] 230.0 ug/dL Critically high 49.0-181.0 [facility] Comment on above: Performed By: #### F ERR #### [facility] [address] [place] [address] Dr. Krystle Heaton TIBC DIRECT 293.0 ug/dL Normal 261.0-497.0 [facility] Comment on above: Performed By: #### F ERR #### [facility] [address] [place] [address] Dr. Krystle Heaton PROF 14(COMP METB)on 021 Albumin [Mass/Vol] 3.8 g/dL Normal 3.5-5.0 [facility] Comment on above: Performed By: #### T 7, LIPA, TSH, AMADOU, CMP #### [facility] [address] [place] [address] Dr. Krystle Heaton Albumin/Globulin [Mass ratio] 1.0 {ratio} Normal [facility] Comment on above: Performed By: #### T 7, LIPA, TSH, AMADOU, CMP #### [facility] [address] [address] [address] Krystle Heaton ALP [Catalytic activity/Vol] 90 U/L Normal 38-126 [facility] Comment on above: Performed By: #### T 7, LIPA, TSH, AMADOU, CMP #### [facility] [address] [place] [address] Dr. Krystle Heaton ALT [Catalytic activity/Vol] 149 U/L Critically high 21-72 [facility] Comment on above: Performed By: #### T 7, LIPA, TSH, AMADOU, CMP #### [facility] [address] [place] [address] Dr. Krystle Heaton Anion gap [Moles/Vol] 16.0 mmol/L Normal [facility] Comment on above: Performed By: #### T 7, LIPA, TSH, AMADOU, CMP #### [facility] [address] [place] [address] Dr. Krystle Heaton AST [Catalytic activity/Vol] 187 U/L Critically high 17-59 [facility] Comment on above: Performed By: #### T 7, LIPA, TSH, AMADOU, CMP #### [facility] [address] [place] [address] Dr. Krystle Heaton Bilirubin [Mass/Vol] 0.6 mg/dL Normal 0.2-1.3 [facility] Comment on above: Performed By: #### T 7, LIPA, TSH, AMADOU, CMP #### [facility] [address] [place] [address] Dr. Krystle Heaton Calcium [Mass/Vol] 9.2 mg/dL Normal 8.4-10.2 [facility] Comment on above: Performed By: #### T 7, LIPA, TSH, AMADOU, CMP #### [facility] [address] [place] [address] Dr. Krystle Heaton Chloride [Moles/Vol] 100 mmol/L Normal 98-107 [facility] Comment on above: Performed By: #### T 7, LIPA, TSH, AMADOU, CMP #### [facility] [address] [place] [address] Dr. Krystle Heaton CO2 [Moles/Vol] 26.2 mmol/L Normal 22.0-30.0 [facility] Comment on above: Performed By: #### T 7, LIPA, TSH, AMADOU, CMP #### [facility] [address] [place] [address] Dr. Krystle Heaton Creatinine [Mass/Vol] 1.07 mg/dL Normal 0.66-1.25 [facility] Comment on above: Performed By: #### T 7, LIPA, TSH, AMADOU, CMP #### [facility] [address] [place] [address] Dr. Krystle Heaton EGFR-AF TUVALUAN >60 Normal >=60 [facility] Comment on above: Performed By: #### T 7, LIPA, TSH, AMADOU, CMP #### [facility] [address] [place] [address] Dr. Krystle Heaton EGFR-NON AF TUVALUAN >60 Normal >=60 [facility] Comment on above: Performed By: #### T 7, LIPA, TSH, AMADOU, CMP #### [facility] [address] [place] [address] Dr. Krystle Heaton Globulin (S) [Mass/Vol] 3.8 g/dL Normal [facility] Comment on above: Performed By: #### T 7, LIPA, TSH, AMADOU, CMP #### [facility] [address] [place] [address] Dr. Krystle Heaton Glucose [Mass/Vol] 110 mg/dL Critically high 74-106 [facility] Comment on above: Performed By: #### T 7, LIPA, TSH, AMADOU, CMP #### [facility] [address] [place] [address] Dr. Krystle Heaton Potassium [Moles/Vol] 4.2 mmol/L Normal 3.4-5.0 [facility] Comment on above: Performed By: #### T 7, LIPA, TSH, AMADOU, CMP #### [facility] [address] [place] [address] Dr. Krystle Heaton Protein [Mass/Vol] 7.6 g/dL Normal 6.1-8.2 [facility] Comment on above: Performed By: #### T 7, LIPA, TSH, AMADOU, CMP #### [facility] [address] [place] [address] Dr. Krystle Heaton Sodium [Moles/Vol] 138 mmol/L Normal 137-145 [facility] Comment on above: Performed By: #### T 7, LIPA, TSH, AMADOU, CMP #### [facility] [address] [place] [address] Dr. Krystle Heaton Urea nitrogen [Mass/Vol] 9.0 mg/dL Normal 9.0-20.0 [facility] Comment on above: Performed By: #### T 7, LIPA, TSH, AAMDOU, CMP #### [facility] [address] [place] [address] Dr. Krystle Heaton Urea nitrogen/Creatinine [Mass ratio] 8.4 mg/mg Normal [facility] Comment on above: Performed By: #### T 7, LIPA, TSH, AMADOU, CMP #### [facility] [address] [place] [address] Dr. Krystle Heaton TSHon 03-30-2021 TSH 1.030 uIU/mL Normal 0.470-4.680 [facility] Comment on above: Performed By: #### T 7, LIPA, TSH, AMADOU, CMP #### [facility] [address] [place] [address] Dr. Krystle Heaton TSH RANGE SEE BELOW Normal [facility] Comment on above: Result Comment: <0.3 4 UIU/ml HYPERTHYROID 0.34-5.60 UIU/ml EUTHYROID >5.60 UIU/ml HYPOTHYROID Performed By: #### T 7, LIPA, TSH, AMADOU, CMP #### [facility] [address] [place] [address] Dr. Krystle Heaton CBC AUTO DIFFon 03-22-2021 BASO # 0.0 103/ul Normal 0.0-0.1 [facility] Comment on above: Performed By: #### T 7, LIPA, TSH, AMADOU, CMP #### [facility] [address] [place] [address] Dr. Krystle Heaton Basophils/100 WBC (Bld) 0.6 % Normal 0.2-2.0 [facility] Comment on above: Performed By: #### T 7, LIPA, TSH, AMADOU, CMP #### [facility] [address] [place] [address] Dr. Krystle Heaton EO # 0.1 103/ul Normal 0.0-0.7 [facility] Comment on above: Performed By: #### T 7, LIPA, TSH, AMADOU, CMP #### [facility] [address] [place] [address] Dr. Krystle Heaton Eosinophils/100 WBC (Bld) 2.1 % Normal 0.9-7.0 [facility] Comment on above: Performed By: #### T 7, LIPA, TSH, AMADOU, CMP #### [facility] [address] [place] [address] Dr. Krystle Heaton Erythrocyte distribution width (RBC) [Ratio] 12.7 % Normal 11.0-15.0 [facility] Comment on above: Performed By: #### T 7, LIPA, TSH, AMADOU, CMP #### [facility] [address] [place] [address] Dr. Krystle Heaton Hematocrit (Bld) [Volume fraction] 37.5 % Critically low 42.0-54.0 [facility] Comment on above: Performed By: #### T 7, LIPA, TSH, AMADOU, CMP #### [facility] [address] [place] [address] Dr. Krystle Heaton Hemoglobin (Bld) [Mass/Vol] 13.1 g/dL Critically low 14.0-18.0 [facility] Comment on above: Performed By: #### T 7, LIPA, TSH, AMADOU, CMP #### [facility] [address] [place] [address] Dr. Krystle Heaton IG # 0.01 10e3/ul Normal 0.00-0.03 [facility] Comment on above: Performed By: #### T 7, LIPA, TSH, AMADOU, CMP #### [facility] [address] [place] [address] Dr. Krystle Heaton IG % 0.3 % Normal 0.0-0.5 [facility] Comment on above: Performed By: #### T 7, LIPA, TSH, AMADOU, CMP #### [facility] [address] [place] [address] Dr. Krystle Heaton LYMPH # 1.2 103/ul Normal 1.2-3.8 [facility] Comment on above: Performed By: #### T 7, LIPA, TSH, AMADOU, CMP #### [facility] [address] [place] [address] Dr. Krystle Heaton Lymphocytes/100 WBC (Bld) 35.7 % Normal 20.5-60.0 [facility] Comment on above: Performed By: #### T 7, LIPA, TSH, AMADOU, CMP #### [facility] [address] [place] [address] Dr. Krystle Heaton MANUAL DIFF REQ NO Normal [facility] Comment on above: Performed By: #### T 7, LIPA, TSH, AMADOU, CMP #### [facility] [address] [place] [address] Dr. Krystle Heaton MCH (RBC) [Entitic mass] 37.0 pg Critically high 25.9-34.0 [facility] Comment on above: Performed By: #### T 7, LIPA, TSH, AMADOU, CMP #### [facility] [address] [place] [address] Dr. Krystle Heaton MCHC (RBC) [Mass/Vol] 34.9 g/dL Normal 29.9-35.2 [facility] Comment on above: Performed By: #### T 7, LIPA, TSH, AMADOU, CMP #### [facility] [address] [place] [address] Dr. Krystle Heaton MCV (RBC) [Entitic vol] 105.9 fL Critically high 80.0-94.0 [facility] Comment on above: Performed By: #### T 7, LIPA, TSH, AMADOU, CMP #### [facility] [address] [place] [address] Dr. Krystle Heaton MONO # 0.2 103/ul Critically low 0.3-0.8 [facility] Comment on above: Performed By: #### T 7, LIPA, TSH, AMADOU, CMP #### [facility] [address] [address] [address] Krystle Heaton Monocytes/100 WBC (Bld) 6.8 % Normal 1.7-12.0 [facility] Comment on above: Performed By: #### T 7, LIPA, TSH, AMADOU, CMP #### [facility] [address] [place] [address] Dr. Krystle Heaton NEUT # 1.8 103/ul Normal 1.4-6.5 [facility] Comment on above: Performed By: #### T 7, LIPA, TSH, AMADOU, CMP #### [facility] [address] [place] [address] Dr. Krystle Heaton Neutrophils/100 WBC (Bld) 54.5 % Normal 43.0-75.0 [facility] Comment on above: Performed By: #### T 7, LIPA, TSH, AMADOU, CMP #### [facility] [address] [place] [address] Dr. Krystle Heaton Platelet mean volume (Bld) [Entitic vol] 10.4 fL Normal 9.5-13.5 [facility] Comment on above: Performed By: #### T 7, LIPA, TSH, AMADOU, CMP #### [facility] [address] [place] [address] Dr. Krystle Heaton PLT 126 103/ul Critically low 150-450 [facility] Comment on above: Performed By: #### T 7, LIPA, TSH, AMADOU, CMP #### [facility] [address] [place] [address] Dr. Krystle Heaton RBC 3.54 106/ul Critically low 4.70-6.10 [facility] Comment on above: Performed By: #### T 7, LIPA, TSH, AMADOU, CMP #### [facility] [address] [place] [address] Dr. Krystle Heaton WBC 3.4 103/ul Critically low 4.0-11.0 [facility] Comment on above: Performed By: #### T 7, LIPA, TSH, AMADOU, CMP #### [facility] [address] [place] [address] Dr. Krystle Heaton FERRITINon 03-22-2021 Ferritin [Mass/Vol] ng/mL Critically high 17.9-464.0 [facility] Comment on above: Performed By: #### T 7, LIPA, TSH, AMADOU, CMP #### [facility] [address] [place] [address] Dr. Krystle Heaton FREE T4on 03-22-2021 Free T4 [Mass/Vol] 0.78 ng/dL Normal 0.78-2.19 [facility] Comment on above: Performed By: #### T 7, LIPA, TSH, AMADOU, CMP #### [facility] [address] [place] [address] Dr. Krystle Heaton IRON AND TIBCon 03-22-2021 % SATURATION 106.0 % Normal [facility] Comment on above: Performed By: #### T 7, LIPA, TSH, AMADOU, CMP #### [facility] [address] [place] [address] Dr. Krystle Heaton Iron [Mass/Vol] 233.0 ug/dL Critically high 49.0-181.0 [facility] Comment on above: Performed By: #### T 7, LIPA, TSH, AMADOU, CMP #### [facility] [address] [place] [address] Dr. Krystle Heaton TIBC DIRECT 220.0 ug/dL Critically low 261.0-497.0 The [facility] Comment on above: Performed By: #### T 7, LIPA, TSH, AMADOU, CMP #### [facility] [address] [place] [address] Dr. Krystle Heaton PROF 14(COMP METB)on 021 Albumin [Mass/Vol] 3.5 g/dL Normal 3.5-5.0 [facility] Comment on above: Performed By: #### T 7, LIPA, TSH, AMADOU, CMP #### [facility] [address] [place] [address] Dr. Krystle Heaton Albumin/Globulin [Mass ratio] 1.0 {ratio} Normal [facility] Comment on above: Performed By: #### T 7, LIPA, TSH, AMADOU, CMP #### [facility] [address] [place] [address] Dr. Krystle Heaton ALP [Catalytic activity/Vol] 77 U/L Normal 38-126 [facility] Comment on above: Performed By: #### T 7, LIPA, TSH, AMADOU, CMP #### [facility] [address] [place] [address] Dr. Krystle Heaton ALT [Catalytic activity/Vol] 95 U/L Critically high 21-72 [facility] Comment on above: Performed By: #### T 7, LIPA, TSH, AMADOU, CMP #### [facility] [address] [place] [address] Dr. Krystle Heaton Anion gap [Moles/Vol] 17.3 mmol/L Normal [facility] Comment on above: Performed By: #### T 7, LIPA, TSH, AMADOU, CMP #### [facility] [address] [place] [address] Dr. Krystle Heaton AST [Catalytic activity/Vol] 161 U/L Critically high 17-59 [facility] Comment on above: Performed By: #### T 7, LIPA, TSH, AMADOU, CMP #### [facility] [address] [place] [address] Dr. Krystle Heaton Bilirubin [Mass/Vol] 0.8 mg/dL Normal 0.2-1.3 [facility] Comment on above: Performed By: #### T 7, LIPA, TSH, AMADOU, CMP #### [facility] [address] [place] [address] Dr. Krystle Heaton Calcium [Mass/Vol] 8.5 mg/dL Normal 8.4-10.2 [facility] Comment on above: Performed By: #### T 7, LIPA, TSH, AMADOU, CMP #### [facility] [address] [place] [address] Dr. Krystle Heaton Chloride [Moles/Vol] 101 mmol/L Normal 98-107 [facility] Comment on above: Performed By: #### T 7, LIPA, TSH, AMADOU, CMP #### [facility] [address] [place] [address] Dr. Krystle Heaton CO2 [Moles/Vol] 22.6 mmol/L Normal 22.0-30.0 [facility] Comment on above: Performed By: #### T 7, LIPA, TSH, AMADOU, CMP #### [facility] [address] [place] [address] Dr. Krystle Heaton Creatinine [Mass/Vol] 0.98 mg/dL Normal 0.66-1.25 [facility] Comment on above: Performed By: #### T 7, LIPA, TSH, AMADOU, CMP #### [facility] [address] [place] [address] Dr. Krystle eHaton EGFR-AF TUVALUAN >60 Normal >=60 [facility] Comment on above: Performed By: #### T 7, LIPA, TSH, AMADOU, CMP #### [facility] [address] [place] [address] Dr. Krystle Heaton EGFR-NON AF TUVALUAN >60 Normal >=60 [facility] Comment on above: Performed By: #### T 7, LIPA, TSH, AMADOU, CMP #### [facility] [address] [place] [address] Dr. Krystle Heaton Globulin (S) [Mass/Vol] 3.4 g/dL Normal [facility] Comment on above: Performed By: #### T 7, LIPA, TSH, AMADOU, CMP #### [facility] [address] [place] [address] Dr. Krystle Heaton Glucose [Mass/Vol] 103 mg/dL Normal 74-106 [facility] Comment on above: Performed By: #### T 7, LIPA, TSH, AMADOU, CMP #### [facility] [address] [place] [address] Dr. Krystle Heaton Potassium [Moles/Vol] 3.9 mmol/L Normal 3.4-5.0 [facility] Comment on above: Performed By: #### T 7, LIPA, TSH, AMADOU, CMP #### [facility] [address] [place] [address] Dr. Krystle Heaton Protein [Mass/Vol] 6.9 g/dL Normal 6.1-8.2 [facility] Comment on above: Performed By: #### T 7, LIPA, TSH, AMADOU, CMP #### [facility] [address] [place] [address] Dr. Krystle Heaton Sodium [Moles/Vol] 137 mmol/L Normal 137-145 [facility] Comment on above: Performed By: #### T 7, LIPA, TSH, AMADOU, CMP #### [facility] [address] [place] [address] Dr. Krystle Heaton Urea nitrogen [Mass/Vol] 8.0 mg/dL Critically low 9.0-20.0 [facility] Comment on above: Performed By: #### T 7, LIPA, TSH, AMADOU, CMP #### [facility] [address] [place] [address] Dr. Krystle Heaton Urea nitrogen/Creatinine [Mass ratio] 8.2 mg/mg Normal [facility] Comment on above: Performed By: #### T 7, LIPA, TSH, AMADOU, CMP #### [facility] [address] [place] [address] Dr. Krystle Heaton TSHon 03-22-2021 TSH 2.059 uIU/mL Normal 0.470-4.680 [facility] Comment on above: Performed By: #### T 7, LIPA, TSH, AMADOU, CMP #### [facility] [address] [place] [address] Dr. Krystle Heaton TSH RANGE SEE BELOW Normal [facility] Comment on above: Result Comment: <0.3 4 UIU/ml HYPERTHYROID 0.34-5.60 UIU/ml EUTHYROID >5.60 UIU/ml HYPOTHYROID Performed By: #### T 7, LIPA, TSH, AMADOU, CMP #### [facility] [address] [place] [address] Dr. Krystle Heaton CBC AUTO DIFFon 03-17-2021 BASO # 0.0 103/ul Normal 0.0-0.1 [facility] Comment on above: Performed By: #### T 7, LIPA, TSH, AMADOU, CMP #### [facility] [address] [place] [address] Dr. Krystle Heaton Basophils/100 WBC (Bld) 0.3 % Normal 0.2-2.0 [facility] Comment on above: Performed By: #### T 7, LIPA, TSH, AMADOU, CMP #### [facility] [address] [place] [address] Dr. Krystle Heaton EO # 0.1 103/ul Normal 0.0-0.7 [facility] Comment on above: Performed By: #### T 7, LIPA, TSH, AMADOU, CMP #### [facility] [address] [place] [address] Dr. Krystle Heaton Eosinophils/100 WBC (Bld) 1.8 % Normal 0.9-7.0 [facility] Comment on above: Performed By: #### T 7, LIPA, TSH, AMADOU, CMP #### [facility] [address] [place] [address] Dr. Krystle Heaton Erythrocyte distribution width (RBC) [Ratio] 12.5 % Normal 11.0-15.0 [facility] Comment on above: Performed By: #### T 7, LIPA, TSH, AMADOU, CMP #### [facility] [address] [place] [address] Dr. Krystle Heaton Hematocrit (Bld) [Volume fraction] 40.9 % Critically low 42.0-54.0 [facility] Comment on above: Performed By: #### T 7, LIPA, TSH, AMADOU, CMP #### [facility] [address] [place] [address] Dr. Krystle Heaton Hemoglobin (Bld) [Mass/Vol] 14.1 g/dL Normal 14.0-18.0 [facility] Comment on above: Performed By: #### T 7, LIPA, TSH, AMADOU, CMP #### [facility] [address] [place] [address] Dr. Krystle Heaton IG # 0.01 10e3/ul Normal 0.00-0.03 [facility] Comment on above: Performed By: #### T 7, LIPA, TSH, AMADOU, CMP #### [facility] [address] [place] [address] Dr. Krystle Heaton IG % 0.3 % Normal 0.0-0.5 [facility] Comment on above: Performed By: #### T 7, LIPA, TSH, AMADOU, CMP #### [facility] [address] [place] [address] Dr. Krystle Heaton LYMPH # 1.3 103/ul Normal 1.2-3.8 [facility] Comment on above: Performed By: #### T 7, LIPA, TSH, AMADOU, CMP #### [facility] [address] [place] [address] Dr. Krystle Heaton Lymphocytes/100 WBC (Bld) 41.1 % Normal 20.5-60.0 [facility] Comment on above: Performed By: #### T 7, LIPA, TSH, AMADOU, CMP #### [facility] [address] [place] [address] Dr. Krystle Heaton MANUAL DIFF REQ NO Normal [facility] Comment on above: Performed By: #### T 7, LIPA, TSH, AMADOU, CMP #### [facility] [address] [place] [address] Dr. Krystle Heaton MCH (RBC) [Entitic mass] 36.3 pg Critically high 25.9-34.0 [facility] Comment on above: Performed By: #### T 7, LIPA, TSH, AMADOU, CMP #### [facility] [address] [place] [address] Dr. Krystle Heaton MCHC (RBC) [Mass/Vol] 34.5 g/dL Normal 29.9-35.2 [facility] Comment on above: Performed By: #### T 7, LIPA, TSH, AMADOU, CMP #### [facility] [address] [place] [address] Dr. Krystle Heaton MCV (RBC) [Entitic vol] 105.4 fL Critically high 80.0-94.0 [facility] Comment on above: Performed By: #### T 7, LIPA, TSH, AMADOU, CMP #### [facility] [address] [address] [address] Krystle Heaton MONO # 0.3 103/ul Normal 0.3-0.8 [facility] Comment on above: Performed By: #### T 7, LIPA, TSH, AMADOU, CMP #### [facility] [address] [place] [address] Dr. Krystle Heaton Monocytes/100 WBC (Bld) 8.0 % Normal 1.7-12.0 [facility] Comment on above: Performed By: #### T 7, LIPA, TSH, AMADOU, CMP #### [facility] [address] [place] [address] Dr. Krystle Heaton NEUT # 1.6 103/ul Normal 1.4-6.5 [facility] Comment on above: Performed By: #### T 7, LIPA, TSH, AMADOU, CMP #### [facility] [address] [place] [address] Dr. Krystle Heaton Neutrophils/100 WBC (Bld) 48.5 % Normal 43.0-75.0 [facility] Comment on above: Performed By: #### T 7, LIPA, TSH, AMADOU, CMP #### [facility] [address] [place] [address] Dr. Krystle Heaton Platelet mean volume (Bld) [Entitic vol] 10.6 fL Normal 9.5-13.5 [facility] Comment on above: Performed By: #### T 7, LIPA, TSH, AMADOU, CMP #### [facility] [address] [place] [address] Dr. Krystle Heaton PLT 134 103/ul Critically low 150-450 [facility] Comment on above: Performed By: #### T 7, LIPA, TSH, AMADOU, CMP #### [facility] [address] [place] [address] Dr. Krystle Heaton RBC 3.88 106/ul Critically low 4.70-6.10 [facility] Comment on above: Result Comment: Macr ocytosis 1+ Stomatocytes 1+ Performed By: #### T 7, LIPA, TSH, AMADOU, CMP #### [facility] [address] [address] [address] Krystle Heaton WBC 3.3 103/ul Critically low 4.0-11.0 [facility] Comment on above: Performed By: #### T 7, LIPA, TSH, AMADOU, CMP #### [facility] [address] [place] [address] Dr. Krystle Heaton FERRITINon 03-17-2021 Ferritin [Mass/Vol] ng/mL Critically high 17.9-464.0 [facility] Comment on above: Performed By: #### T 7, LIPA, TSH, AMADOU, CMP #### [facility] [address] [place] [address] Dr. Krystle Heaton FREE T4on 03-17-2021 Free T4 [Mass/Vol] 0.82 ng/dL Normal 0.78-2.19 [facility] Comment on above: Performed By: #### T 7, LIPA, TSH, AMADOU, CMP #### [facility] [address] [place] [address] Dr. Krystle Heaton IRON AND TIBCon 03-17-2021 % SATURATION 100.8 % Normal [facility] Comment on above: Performed By: #### T 7, LIPA, TSH, AMADOU, CMP #### [facility] [address] [place] [address] Dr. Krystle Heaton Iron [Mass/Vol] 249.0 ug/dL Critically high 49.0-181.0 [facility] Comment on above: Performed By: #### T 7, LIPA, TSH, AMADOU, CMP #### [facility] [address] [place] [address] Dr. Krystle Heaton TIBC DIRECT 247.0 ug/dL Critically low 261.0-497.0 [facility] Comment on above: Performed By: #### T 7, LIPA, TSH, AMADOU, CMP #### [facility] [address] [place] [address] Dr. Krystle Heaton PROF 14(COMP METB)on 021 Albumin [Mass/Vol] 3.7 g/dL Normal 3.5-5.0 [facility] Comment on above: Performed By: #### T 7, LIPA, TSH, AMADOU, CMP #### [facility] [address] [place] [address] Dr. Krystle Heaton Albumin/Globulin [Mass ratio] 1.1 {ratio} Normal [facility] Comment on above: Performed By: #### T 7, LIPA, TSH, AMADOU, CMP #### [facility] [address] [place] [address] Dr. Krystle Heaton ALP [Catalytic activity/Vol] 78 U/L Normal 38-126 [facility] Comment on above: Performed By: #### T 7, LIPA, TSH, AMADOU, CMP #### [facility] [address] [place] [address] Dr. Krystle Heaton ALT [Catalytic activity/Vol] 100 U/L Critically high 21-72 [facility] Comment on above: Performed By: #### T 7, LIPA, TSH, AMADOU, CMP #### [facility] [address] [place] [address] Dr. Krystle Heaton Anion gap [Moles/Vol] 14.4 mmol/L Normal [facility] Comment on above: Performed By: #### T 7, LIPA, TSH, AMADOU, CMP #### [facility] [address] [place] [address] Dr. Krystle Heaton AST [Catalytic activity/Vol] 158 U/L Critically high 17-59 [facility] Comment on above: Performed By: #### T 7, LIPA, TSH, AMADOU, CMP #### [facility] [address] [place] [address] Dr. Krystle Heaton Bilirubin [Mass/Vol] 0.6 mg/dL Normal 0.2-1.3 [facility] Comment on above: Performed By: #### T 7, LIPA, TSH, AMADOU, CMP #### [facility] [address] [place] [address] Dr. Krystle Heaton Calcium [Mass/Vol] 8.9 mg/dL Normal 8.4-10.2 [facility] Comment on above: Performed By: #### T 7, LIPA, TSH, AMADOU, CMP #### [facility] [address] [place] [address] Dr. Krystle Heaton Chloride [Moles/Vol] 100 mmol/L Normal 98-107 [facility] Comment on above: Performed By: #### T 7, LIPA, TSH, AMADOU, CMP #### [facility] [address] [address] [address] Krystle Heaton CO2 [Moles/Vol] 27.3 mmol/L Normal 22.0-30.0 [facility] Comment on above: Performed By: #### T 7, LIPA, TSH, AMADOU, CMP #### [facility] [address] [place] [address] Dr. Krystle Heaton Creatinine [Mass/Vol] 1.08 mg/dL Normal 0.66-1.25 [facility] Comment on above: Performed By: #### T 7, LIPA, TSH, AMADOU, CMP #### [facility] [address] [place] [address] Dr. Krystle Heaton EGFR-AF TUVALUAN >60 Normal >=60 [facility] Comment on above: Performed By: #### T 7, LIPA, TSH, AMADOU, CMP #### [facility] [address] [place] [address] Dr. Krystle Heaton EGFR-NON AF TUVALUAN >60 Normal >=60 [facility] Comment on above: Performed By: #### T 7, LIPA, TSH, AMADOU, CMP #### [facility] [address] [place] [address] Dr. Krystle Heaton Globulin (S) [Mass/Vol] 3.5 g/dL Normal [facility] Comment on above: Performed By: #### T 7, LIPA, TSH, AMADOU, CMP #### [facility] [address] [place] [address] Dr. Krystle eHaton Glucose [Mass/Vol] 115 mg/dL Critically high 74-106 [facility] Comment on above: Performed By: #### T 7, LIPA, TSH, AMADOU, CMP #### [facility] [address] [place] [address] Dr. Krystle Heaton Potassium [Moles/Vol] 3.7 mmol/L Normal 3.4-5.0 [facility] Comment on above: Performed By: #### T 7, LIPA, TSH, AMADOU, CMP #### [facility] [address] [place] [address] Dr. Krystle Heaton Protein [Mass/Vol] 7.2 g/dL Normal 6.1-8.2 [facility] Comment on above: Performed By: #### T 7, LIPA, TSH, AMADOU, CMP #### [facility] [address] [place] [address] Dr. Krystle Heaton Sodium [Moles/Vol] 138 mmol/L Normal 137-145 [facility] Comment on above: Performed By: #### T 7, LIPA, TSH, AMADOU, CMP #### [facility] [address] [place] [address] Dr. Krystle Heaton Urea nitrogen [Mass/Vol] 10.0 mg/dL Normal 9.0-20.0 [facility] Comment on above: Performed By: #### T 7, LIPA, TSH, AMADOU, CMP #### [facility] [address] [place] [address] Dr. Krystle Heaton Urea nitrogen/Creatinine [Mass ratio] 9.3 mg/mg Normal [facility] Comment on above: Performed By: #### T 7, LIPA, TSH, AMADOU, CMP #### [facility] [address] [place] [address] Dr. Krystle Heaton TSHon 03-17-2021 TSH 1.904 uIU/mL Normal 0.470-4.680 [facility] Comment on above: Performed By: #### T 7, LIPA, TSH, AMADOU, CMP #### [facility] [address] [place] [address] Dr. Krystle Heaton TSH RANGE SEE BELOW Normal [facility] Comment on above: Result Comment: <0.3 4 UIU/ml HYPERTHYROID 0.34-5.60 UIU/ml EUTHYROID >5.60 UIU/ml HYPOTHYROID Performed By: #### T 7, LIPA, TSH, AMADOU, CMP #### [facility] [address] [place] [address] Dr. Krystle Heaton CBC AUTO DIFFon 03-08-2021 BASO # 0.0 103/ul Normal 0.0-0.1 [facility] Comment on above: Performed By: #### T 7, LIPA, TSH, AMADOU, CMP #### [facility] [address] [place] [address] Dr. Krystle Heaton Basophils/100 WBC (Bld) 0.8 % Normal 0.2-2.0 [facility] Comment on above: Performed By: #### T 7, LIPA, TSH, AMADOU, CMP #### [facility] [address] [place] [address] Dr. Krystle Heaton EO # 0.1 103/ul Normal 0.0-0.7 [facility] Comment on above: Performed By: #### T 7, LIPA, TSH, AMADOU, CMP #### [facility] [address] [place] [address] Dr. Krystle Heaton Eosinophils/100 WBC (Bld) 1.5 % Normal 0.9-7.0 [facility] Comment on above: Performed By: #### T 7, LIPA, TSH, AMADOU, CMP #### [facility] [address] [place] [address] Dr. Krystle Heaton Erythrocyte distribution width (RBC) [Ratio] 12.2 % Normal 11.0-15.0 [facility] Comment on above: Performed By: #### T 7, LIPA, TSH, AMADOU, CMP #### [facility] [address] [place] [address] Dr. Krystle Heaton Hematocrit (Bld) [Volume fraction] 45.5 % Normal 42.0-54.0 [facility] Comment on above: Performed By: #### T 7, LIPA, TSH, AMADOU, CMP #### [facility] [address] [place] [address] Dr. Krystle Heaton Hemoglobin (Bld) [Mass/Vol] 15.9 g/dL Normal 14.0-18.0 [facility] Comment on above: Performed By: #### T 7, LIPA, TSH, AMADOU, CMP #### [facility] [address] [place] [address] Dr. Krystle Heaton IG # 0.01 10e3/ul Normal 0.00-0.03 [facility] Comment on above: Performed By: #### T 7, LIPA, TSH, AMADOU, CMP #### [facility] [address] [place] [address] Dr. Krystle Heaton IG % 0.2 % Normal 0.0-0.5 [facility] Comment on above: Performed By: #### T 7, LIPA, TSH, AMADOU, CMP #### [facility] [address] [place] [address] Dr. Krystle Heaton LYMPH # 1.8 103/ul Normal 1.2-3.8 [facility] Comment on above: Performed By: #### T 7, LIPA, TSH, AMADOU, CMP #### [facility] [address] [place] [address] Dr. Krystle Heaton Lymphocytes/100 WBC (Bld) 37.8 % Normal 20.5-60.0 [facility] Comment on above: Performed By: #### T 7, LIPA, TSH, AMADOU, CMP #### [facility] [address] [place] [address] Dr. Krystle Heaton MANUAL DIFF REQ NO Normal [facility] Comment on above: Performed By: #### T 7, LIPA, TSH, AMADOU, CMP #### [facility] [address] [place] [address] Dr. Krystle Heaton MCH (RBC) [Entitic mass] 36.4 pg Critically high 25.9-34.0 [facility] Comment on above: Performed By: #### T 7, LIPA, TSH, AMADOU, CMP #### [facility] [address] [place] [address] Dr. Krystle Heaton MCHC (RBC) [Mass/Vol] 34.9 g/dL Normal 29.9-35.2 [facility] Comment on above: Performed By: #### T 7, LIPA, TSH, AMADOU, CMP #### [facility] [address] [place] [address] Dr. Krystle Heaton MCV (RBC) [Entitic vol] 104.1 fL Critically high 80.0-94.0 [facility] Comment on above: Performed By: #### T 7, LIPA, TSH, AMADOU, CMP #### [facility] [address] [place] [address] Dr. Krystle Heaton MONO # 0.4 103/ul Normal 0.3-0.8 [facility] Comment on above: Performed By: #### T 7, LIPA, TSH, AMADOU, CMP #### [facility] [address] [place] [address] Dr. Krystle Heaton Monocytes/100 WBC (Bld) 8.3 % Normal 1.7-12.0 [facility] Comment on above: Performed By: #### T 7, LIPA, TSH, AMADOU, CMP #### [facility] [address] [place] [address] Dr. Krystle Heaton NEUT # 2.4 103/ul Normal 1.4-6.5 [facility] Comment on above: Performed By: #### T 7, LIPA, TSH, AMADOU, CMP #### [facility] [address] [place] [address] Dr. Krystle Heaton Neutrophils/100 WBC (Bld) 51.4 % Normal 43.0-75.0 [facility] Comment on above: Performed By: #### T 7, LIPA, TSH, AMADOU, CMP #### [facility] [address] [place] [address] Dr. Krystle Heaton Platelet mean volume (Bld) [Entitic vol] 10.8 fL Normal 9.5-13.5 [facility] Comment on above: Performed By: #### T 7, LIPA, TSH, AMADOU, CMP #### [facility] [address] [place] [address] Dr. Krystle Heaton PLT 175 103/ul Normal 150-450 [facility] Comment on above: Performed By: #### T 7, LIPA, TSH, AMADOU, CMP #### [facility] [address] [address] [address] Krystle Heaton RBC 4.37 106/ul Critically low 4.70-6.10 [facility] Comment on above: Performed By: #### T 7, LIPA, TSH, AMADOU, CMP #### [facility] [address] [place] [address] Dr. Krystle Heaton WBC 4.7 103/ul Normal 4.0-11.0 [facility] Comment on above: Performed By: #### T 7, LIPA, TSH, AMADOU, CMP #### [facility] [address] [place] [address] Dr. Krystle Heaton FERRITINon 03-08-2021 Ferritin [Mass/Vol] ng/mL Critically high 17.9-464.0 [facility] Comment on above: Performed By: #### T 7, LIPA, TSH, AMADOU, CMP #### [facility] [address] [place] [address] Dr. Krystle Heaton FREE T4on 03-08-2021 Free T4 [Mass/Vol] 0.73 ng/dL Critically low 0.78-2.19 [facility] Comment on above: Performed By: #### T 7, LIPA, TSH, AMADOU, CMP #### [facility] [address] [place] [address] Dr. Krystle Heaton IRON AND TIBCon 03-08-2021 % SATURATION 102.2 % Normal [facility] Comment on above: Performed By: #### T 7, LIPA, TSH, AMADOU, CMP #### [facility] [address] [place] [address] Dr. Krystle Heaton Iron [Mass/Vol] 279.0 ug/dL Critically high 49.0-181.0 [facility] Comment on above: Performed By: #### T 7, LIPA, TSH, AMADOU, CMP #### [facility] [address] [place] [address] Dr. Krystle Heaton TIBC DIRECT 273.0 ug/dL Normal 261.0-497.0 [facility] Comment on above: Performed By: #### T 7, LIPA, TSH, AMADOU, CMP #### [facility] [address] [place] [address] Dr. Krystle Heaton PROF 14(COMP METB)on 021 Albumin [Mass/Vol] 3.6 g/dL Normal 3.5-5.0 [facility] Comment on above: Performed By: #### T 7, LIPA, TSH, AMADOU, CMP #### [facility] [address] [place] [address] Dr. Krystle Heaton Albumin/Globulin [Mass ratio] 1.0 {ratio} Normal [facility] Comment on above: Performed By: #### T 7, LIPA, TSH, AMADOU, CMP #### [facility] [address] [place] [address] Dr. Krystle Heaton ALP [Catalytic activity/Vol] 68 U/L Normal 38-126 [facility] Comment on above: Performed By: #### T 7, LIPA, TSH, AMADOU, CMP #### [facility] [address] [place] [address] Dr. Krystle Heaton ALT [Catalytic activity/Vol] 58 U/L Normal 21-72 [facility] Comment on above: Performed By: #### T 7, LIPA, TSH, AMADOU, CMP #### [facility] [address] [place] [address] Dr. Krystle Heaton Anion gap [Moles/Vol] 15.5 mmol/L Normal [facility] Comment on above: Performed By: #### T 7, LIPA, TSH, AMADOU, CMP #### [facility] [address] [place] [address] Dr. Krystle Heaton AST [Catalytic activity/Vol] 56 U/L Normal 17-59 [facility] Comment on above: Performed By: #### T 7, LIPA, TSH, AMADOU, CMP #### [facility] [address] [place] [address] Dr. Krystle Heaton Bilirubin [Mass/Vol] 0.7 mg/dL Normal 0.2-1.3 [facility] Comment on above: Performed By: #### T 7, LIPA, TSH, AMADOU, CMP #### [facility] [address] [place] [address] Dr. Krystle Heaton Calcium [Mass/Vol] 8.9 mg/dL Normal 8.4-10.2 [facility] Comment on above: Performed By: #### T 7, LIPA, TSH, AMADOU, CMP #### [facility] [address] [place] [address] Dr. Krystle Heaton Chloride [Moles/Vol] 100 mmol/L Normal 98-107 [facility] Comment on above: Performed By: #### T 7, LIPA, TSH, AMADOU, CMP #### [facility] [address] [place] [address] Dr. Krystle Heaton CO2 [Moles/Vol] 26.6 mmol/L Normal 22.0-30.0 [facility] Comment on above: Performed By: #### T 7, LIPA, TSH, AMADOU, CMP #### [facility] [address] [place] [address] Dr. Krystle Heaton Creatinine [Mass/Vol] 1.12 mg/dL Normal 0.66-1.25 [facility] Comment on above: Performed By: #### T 7, LIPA, TSH, AMADOU, CMP #### [facility] [address] [place] [address] Dr. Krystle Heaton EGFR-AF TUVALUAN >60 Normal >=60 [facility] Comment on above: Performed By: #### T 7, LIPA, TSH, AMADOU, CMP #### [facility] [address] [place] [address] Dr. Krystle Heaton EGFR-NON AF TUVALUAN >60 Normal >=60 [facility] Comment on above: Performed By: #### T 7, LIPA, TSH, AMADOU, CMP #### [facility] [address] [place] [address] Dr. Krystle Heaton Globulin (S) [Mass/Vol] 3.7 g/dL Normal [facility] Comment on above: Performed By: #### T 7, LIPA, TSH, AMADOU, CMP #### [facility] [address] [place] [address] Dr. Krystle Heaton Glucose [Mass/Vol] 101 mg/dL Normal 74-106 [facility] Comment on above: Performed By: #### T 7, LIPA, TSH, AMADOU, CMP #### [facility] [address] [place] [address] Dr. Krystle Heaton Potassium [Moles/Vol] 4.1 mmol/L Normal 3.4-5.0 [facility] Comment on above: Performed By: #### T 7, LIPA, TSH, AMADOU, CMP #### [facility] [address] [place] [address] Dr. Krystle Heaton Protein [Mass/Vol] 7.3 g/dL Normal 6.1-8.2 [facility] Comment on above: Performed By: #### T 7, LIPA, TSH, AMADOU, CMP #### [facility] [address] [place] [address] Dr. Krystle Heaton Sodium [Moles/Vol] 138 mmol/L Normal 137-145 [facility] Comment on above: Performed By: #### T 7, LIPA, TSH, AMADOU, CMP #### [facility] [address] [place] [address] Dr. Krystle Heaton Urea nitrogen [Mass/Vol] 17.0 mg/dL Normal 9.0-20.0 [facility] Comment on above: Performed By: #### T 7, LIPA, TSH, AMADOU, CMP #### [facility] [address] [place] [address] Dr. Krystle Heaton Urea nitrogen/Creatinine [Mass ratio] 15.2 mg/mg Normal [facility] Comment on above: Performed By: #### T 7, LIPA, TSH, AMADOU, CMP #### [facility] [address] [place] [address] Dr. Krystle Heaton TSHon 03-08-2021 TSH 1.781 uIU/mL Normal 0.470-4.680 [facility] Comment on above: Performed By: #### T 7, LIPA, TSH, AMADOU, CMP #### [facility] [address] [place] [address] Dr. Krystle Heaton TSH RANGE SEE BELOW Normal [facility] Comment on above: Result Comment: <0.3 4 UIU/ml HYPERTHYROID 0.34-5.60 UIU/ml EUTHYROID >5.60 UIU/ml HYPOTHYROID Performed By: #### T 7, LIPA, TSH, AMADOU, CMP #### [facility] [address] [place] [address] Dr. Krystle Heaton FERRITINon 02-03-2021 Ferritin [Mass/Vol] ng/mL Critically high 17.9-464.0 [facility] Comment on above: Performed By: #### C BC #### [facility] [address] [place] [address] Billy Devlin Covid-19 PCR (CVDTB)on SARS-CoV-2 (COVID-19) RNA JIMBO+probe Ql (Unsp spec) Not detected Normal NOT DETECTED [facility] Comment on above: Result Comment: This test is not yet approved or cleared by the [place] FDA. When there are no FDA-approved or cleared tests available, and other criteria are met, FDA can make tests available under an emergency access mechanism called an Emergency Use Authorization (EUA). The EUA for this test is supported by the [place] of Health and Human Service's (HHS's) declaration [...] T 7, LIPA, TSH, AMADOU, CMP #### [facility] [address] [place] [address] Dr. Krystle Heaton CBC AUTO DIFFon 01-06-2021 BASO # 0.0 103/ul Normal 0.0-0.1 [facility] Comment on above: Performed By: #### T 7, LIPA, TSH, AMADOU, CMP #### [facility] [address] [place] [address] Dr. Krystle Heaton Basophils/100 WBC (Bld) 1.0 % Normal 0.2-2.0 [facility] Comment on above: Performed By: #### T 7, LIPA, TSH, AMADOU, CMP #### [facility] [address] [place] [address] Dr. Krystle Heaton EO # 0.1 103/ul Normal 0.0-0.7 [facility] Comment on above: Performed By: #### T 7, LIPA, TSH, AMADOU, CMP #### [facility] [address] [place] [address] Dr. Krystle Heaton Eosinophils/100 WBC (Bld) 2.5 % Normal 0.9-7.0 [facility] Comment on above: Performed By: #### T 7, LIPA, TSH, AMADOU, CMP #### [facility] [address] [place] [address] Dr. Krystle Heaton Erythrocyte distribution width (RBC) [Ratio] 13.7 % Normal 11.0-15.0 [facility] Comment on above: Performed By: #### T 7, LIPA, TSH, AMADOU, CMP #### [facility] [address] [place] [address] Dr. Krystle Heaton Hematocrit (Bld) [Volume fraction] 44.1 % Normal 42.0-54.0 [facility] Comment on above: Performed By: #### T 7, LIPA, TSH, AMADOU, CMP #### [facility] [address] [place] [address] Dr. Krystle Heaton Hemoglobin (Bld) [Mass/Vol] 15.0 g/dL Normal 14.0-18.0 [facility] Comment on above: Performed By: #### T 7, LIPA, TSH, AMADOU, CMP #### [facility] [address] [place] [address] Dr. Krystle Heaton IG # 0.02 10e3/ul Normal 0.00-0.03 [facility] Comment on above: Performed By: #### T 7, LIPA, TSH, AMADOU, CMP #### [facility] [address] [place] [address] Dr. Krystle Heaton IG % 0.5 % Normal 0.0-0.5 [facility] Comment on above: Performed By: #### T 7, LIPA, TSH, AMADOU, CMP #### [facility] [address] [place] [address] Dr. Krystle Heaton LYMPH # 1.6 103/ul Normal 1.2-3.8 [facility] Comment on above: Performed By: #### T 7, LIPA, TSH, AMADOU, CMP #### [facility] [address] [place] [address] Dr. Krystle Heaton Lymphocytes/100 WBC (Bld) 40.7 % Normal 20.5-60.0 [facility] Comment on above: Performed By: #### T 7, LIPA, TSH, AMADOU, CMP #### [facility] [address] [place] [address] Dr. Krystle Heaton MANUAL DIFF REQ NO Normal [facility] Comment on above: Performed By: #### T 7, LIPA, TSH, AMADOU, CMP #### [facility] [address] [place] [address] Dr. Krystle Haeton MCH (RBC) [Entitic mass] 36.2 pg Critically high 25.9-34.0 [facility] Comment on above: Performed By: #### T 7, LIPA, TSH, AMADOU, CMP #### [facility] [address] [place] [address] Dr. Krystle Heaton MCHC (RBC) [Mass/Vol] 34.0 g/dL Normal 29.9-35.2 [facility] Comment on above: Performed By: #### T 7, LIPA, TSH, AMADOU, CMP #### [facility] [address] [place] [address] Dr. Krystle Heaton MCV (RBC) [Entitic vol] 106.5 fL Critically high 80.0-94.0 [facility] Comment on above: Performed By: #### T 7, LIPA, TSH, AMADOU, CMP #### [facility] [address] [place] [address] Dr. Krystle Heaton MONO # 0.3 103/ul Normal 0.3-0.8 [facility] Comment on above: Performed By: #### T 7, LIPA, TSH, AMADOU, CMP #### [facility] [address] [place] [address] Dr. Krystle Heaton Monocytes/100 WBC (Bld) 8.1 % Normal 1.7-12.0 [facility] Comment on above: Performed By: #### T 7, LIPA, TSH, AMADOU, CMP #### [facility] [address] [place] [address] Dr. Krystle Heaton NEUT # 1.9 103/ul Normal 1.4-6.5 [facility] Comment on above: Performed By: #### T 7, LIPA, TSH, AMADOU, CMP #### [facility] [address] [place] [address] Dr. Krystle Heaton Neutrophils/100 WBC (Bld) 47.2 % Normal 43.0-75.0 [facility] Comment on above: Performed By: #### T 7, LIPA, TSH, AMADOU, CMP #### [facility] [address] [place] [address] Dr. Krystle Heaton Platelet mean volume (Bld) [Entitic vol] 11.6 fL Normal 9.5-13.5 [facility] Comment on above: Performed By: #### T 7, LIPA, TSH, AMADOU, CMP #### [facility] [address] [place] [address] Dr. Krystle Heaton PLT 184 103/ul Normal 150-450 [facility] Comment on above: Performed By: #### T 7, LIPA, TSH, AMADOU, CMP #### [facility] [address] [place] [address] Dr. Krystle Heaton RBC 4.14 106/ul Critically low 4.70-6.10 [facility] Comment on above: Performed By: #### T 7, LIPA, TSH, AMADOU, CMP #### [facility] [address] [place] [address] Dr. Krystle Heaton WBC 4.0 103/ul Normal 4.0-11.0 [facility] Comment on above: Performed By: #### T 7, LIPA, TSH, AMADOU, CMP #### [facility] [address] [place] [address] Dr. Krystle Heaton FERRITINon 01-06-2021 Ferritin [Mass/Vol] ng/mL Critically high 17.9-464.0 [facility] Comment on above: Performed By: #### H BSANS #### [facility] [address] [place] [address] Billy Devlin CBC AUTO DIFFon 12-09-2020 BASO # 0.0 103/ul Normal 0.0-0.1 [facility] Comment on above: Performed By: #### T 7, LIPA, TSH, AMADOU, CMP #### [facility] [address] [place] [address] Dr. Krystle Heaton Basophils/100 WBC (Bld) 0.6 % Normal 0.2-2.0 [facility] Comment on above: Performed By: #### T 7, LIPA, TSH, AMADOU, CMP #### [facility] [address] [place] [address] Dr. Krystle Heaton EO # 0.1 103/ul Normal 0.0-0.7 [facility] Comment on above: Performed By: #### T 7, LIPA, TSH, AMADOU, CMP #### [facility] [address] [place] [address] Dr. Krystle Heaton Eosinophils/100 WBC (Bld) 2.6 % Normal 0.9-7.0 [facility] Comment on above: Performed By: #### T 7, LIPA, TSH, AMADOU, CMP #### [facility] [address] [place] [address] Dr. Krystle Heaton Erythrocyte distribution width (RBC) [Ratio] 13.0 % Normal 11.0-15.0 [facility] Comment on above: Performed By: #### T 7, LIPA, TSH, AMADOU, CMP #### [facility] [address] [place] [address] Dr. Krystle Heaton Hematocrit (Bld) [Volume fraction] 46.2 % Normal 42.0-54.0 [facility] Comment on above: Performed By: #### T 7, LIPA, TSH, AMADOU, CMP #### [facility] [address] [place] [address] Dr. Krystle Heaton Hemoglobin (Bld) [Mass/Vol] 16.0 g/dL Normal 14.0-18.0 [facility] Comment on above: Performed By: #### T 7, LIPA, TSH, AMADOU, CMP #### [facility] [address] [place] [address] Dr. Krystle Heaton IG # 0.01 10e3/ul Normal 0.00-0.03 [facility] Comment on above: Performed By: #### T 7, LIPA, TSH, AMADOU, CMP #### [facility] [address] [place] [address] Dr. Krystle Heaton IG % 0.2 % Normal 0.0-0.5 [facility] Comment on above: Performed By: #### T 7, LIPA, TSH, AMADOU, CMP #### [facility] [address] [place] [address] Dr. Krystle Heaton LYMPH # 1.3 103/ul Normal 1.2-3.8 [facility] Comment on above: Performed By: #### T 7, LIPA, TSH, AMADOU, CMP #### [facility] [address] [place] [address] Dr. Krystle Heaton Lymphocytes/100 WBC (Bld) 27.8 % Normal 20.5-60.0 [facility] Comment on above: Performed By: #### T 7, LIPA, TSH, AMADOU, CMP #### [facility] [address] [place] [address] Dr. Krystle Heaton MANUAL DIFF REQ NO Normal [facility] Comment on above: Performed By: #### T 7, LIPA, TSH, AMADOU, CMP #### [facility] [address] [place] [address] Dr. Krystle Heaton MCH (RBC) [Entitic mass] 34.9 pg Critically high 25.9-34.0 [facility] Comment on above: Performed By: #### T 7, LIPA, TSH, AMADOU, CMP #### [facility] [address] [place] [address] Dr. Krystle Heaton MCHC (RBC) [Mass/Vol] 34.6 g/dL Normal 29.9-35.2 [facility] Comment on above: Performed By: #### T 7, LIPA, TSH, AMADOU, CMP #### [facility] [address] [place] [address] Dr. Krystle Heaton MCV (RBC) [Entitic vol] 100.9 fL Critically high 80.0-94.0 [facility] Comment on above: Performed By: #### T 7, LIPA, TSH, AMADOU, CMP #### [facility] [address] [place] [address] Dr. Krystle Heaton MONO # 0.3 103/ul Normal 0.3-0.8 [facility] Comment on above: Performed By: #### T 7, LIPA, TSH, AMADOU, CMP #### [facility] [address] [place] [address] Dr. Krystle Heaton Monocytes/100 WBC (Bld) 6.6 % Normal 1.7-12.0 [facility] Comment on above: Performed By: #### T 7, LIPA, TSH, AMADOU, CMP #### [facility] [address] [place] [address] Dr. Krystle Heaton NEUT # 2.9 103/ul Normal 1.4-6.5 [facility] Comment on above: Performed By: #### T 7, LIPA, TSH, AMADOU, CMP #### [facility] [address] [place] [address] Dr. Krystle Heaton Neutrophils/100 WBC (Bld) 62.2 % Normal 43.0-75.0 [facility] Comment on above: Performed By: #### T 7, LIPA, TSH, AMADOU, CMP #### [facility] [address] [place] [address] Dr. Krystle Heaton Platelet mean volume (Bld) [Entitic vol] 11.0 fL Normal 9.5-13.5 [facility] Comment on above: Performed By: #### T 7, LIPA, TSH, AMADOU, CMP #### [facility] [address] [place] [address] Dr. Krystle Heaton PLT 171 103/ul Normal 150-450 [facility] Comment on above: Performed By: #### T 7, LIPA, TSH, AMADOU, CMP #### [facility] [address] [place] [address] Dr. Krystle Heaton RBC 4.58 106/ul Critically low 4.70-6.10 [facility] Comment on above: Performed By: #### T 7, LIPA, TSH, AMADOU, CMP #### [facility] [address] [place] [address] Dr. Krystle Heaton WBC 4.7 103/ul Normal 4.0-11.0 [facility] Comment on above: Performed By: #### T 7, LIPA, TSH, AMADOU, CMP #### [facility] [address] [place] [address] Dr. Krystle Heaton PROF 14(COMP METB)on 021 Albumin [Mass/Vol] 3.9 g/dL Normal 3.5-5.0 [facility] Comment on above: Performed By: #### T 7, LIPA, TSH, AMADOU, CMP #### [facility] [address] [place] [address] Dr. Krystle Heaton Albumin/Globulin [Mass ratio] 1.1 {ratio} Normal [facility] Comment on above: Performed By: #### T 7, LIPA, TSH, AMADOU, CMP #### [facility] [address] [place] [address] Dr. Krystle Heaton ALP [Catalytic activity/Vol] 86 U/L Normal 38-126 [facility] Comment on above: Performed By: #### T 7, LIPA, TSH, AMADOU, CMP #### [facility] [address] [place] [address] Dr. Krystle Heaton ALT [Catalytic activity/Vol] 87 U/L Critically high 21-72 [facility] Comment on above: Performed By: #### T 7, LIPA, TSH, AMADOU, CMP #### [facility] [address] [place] [address] Dr. Krystle Heaton Anion gap [Moles/Vol] 15.7 mmol/L Normal [facility] Comment on above: Performed By: #### T 7, LIPA, TSH, AMADOU, CMP #### [facility] [address] [place] [address] Dr. Krystle Heaton AST [Catalytic activity/Vol] 70 U/L Critically high 17-59 [facility] Comment on above: Performed By: #### T 7, LIPA, TSH, AMADOU, CMP #### [facility] [address] [place] [address] Dr. Krystle Heaton Bilirubin [Mass/Vol] 1.4 mg/dL Critically high 0.2-1.3 [facility] Comment on above: Performed By: #### T 7, LIPA, TSH, AMADOU, CMP #### [facility] [address] [place] [address] Dr. Krystle Heaton Calcium [Mass/Vol] 9.3 mg/dL Normal 8.4-10.2 [facility] Comment on above: Performed By: #### T 7, LIPA, TSH, AMADOU, CMP #### [facility] [address] [place] [address] Dr. Krystle Heaton Chloride [Moles/Vol] 102 mmol/L Normal 98-107 [facility] Comment on above: Performed By: #### T 7, LIPA, TSH, AMADOU, CMP #### [facility] [address] [place] [address] Dr. Krystle Heaton CO2 [Moles/Vol] 26.5 mmol/L Normal 22.0-30.0 [facility] Comment on above: Performed By: #### T 7, LIPA, TSH, AMADOU, CMP #### [facility] [address] [address] [address] Krystle Heaton Creatinine [Mass/Vol] 1.27 mg/dL Critically high 0.66-1.25 [facility] Comment on above: Performed By: #### T 7, LIPA, TSH, AMADOU, CMP #### [facility] [address] [address] [address] Krystle Heaton EGFR-AF TUVALUAN >60 Normal >=60 [facility] Comment on above: Performed By: #### T 7, LIPA, TSH, AMADOU, CMP #### [facility] [address] [address] [address] Krystle Heaton EGFR-NON AF TUVALUAN =60 Normal >=60 [facility] Comment on above: Performed By: #### T 7, LIPA, TSH, AMADOU, CMP #### [facility] [address] [place] [address] Dr. Krystle Heaton Globulin (S) [Mass/Vol] 3.5 g/dL Normal [facility] Comment on above: Performed By: #### T 7, LIPA, TSH, AMADOU, CMP #### [facility] [address] [place] [address] Dr. Krystle Heaton Glucose [Mass/Vol] 120 mg/dL Critically high 74-106 [facility] Comment on above: Performed By: #### T 7, LIPA, TSH, AMADOU, CMP #### [facility] [address] [place] [address] Dr. Krystle Heaton Potassium [Moles/Vol] 4.2 mmol/L Normal 3.4-5.0 [facility] Comment on above: Performed By: #### T 7, LIPA, TSH, AMADOU, CMP #### [facility] [address] [address] [address] Krystle Heaton Protein [Mass/Vol] 7.4 g/dL Normal 6.1-8.2 [facility] Comment on above: Performed By: #### T 7, LIPA, TSH, AMADOU, CMP #### [facility] [address] [place] [address] Dr. Krystle Heaton Sodium [Moles/Vol] 140 mmol/L Normal 137-145 [facility] Comment on above: Performed By: #### T 7, LIPA, TSH, AMADOU, CMP #### [facility] [address] [place] [address] Dr. Krystle Heaton Urea nitrogen [Mass/Vol] 12.0 mg/dL Normal 9.0-20.0 [facility] Comment on above: Performed By: #### T 7, LIPA, TSH, AMADOU, CMP #### [facility] [address] [place] [address] Dr. Krystle Heaton Urea nitrogen/Creatinine [Mass ratio] 9.4 mg/mg Normal [facility] Comment on above: Performed By: #### T 7, LA TSH, AMADOU, CMP #### [facility] [address] [place] [address] Dr. Krystle Heaton PROTIMEon 12-09-2020 INR Coag (PPP) [Relative time] 0.96 {INR} Normal [facility] Comment on above: Performed By: #### H BSANS #### [facility] [address] [place] [address] Billy Devlin INR GUIDELINES SEE BELOW Normal [facility] Comment on above: Result Comment: MOUNA RED INR: 2.0 - 3.0 CONDITIONS NOT LISTED BELOW 2.5 - 3.5 FOR PROSTHETIC HEART VALVE REPLACEMENT 2.5 - 3.5 RECURRENT THROMBOSIS Performed By: #### H BSANS #### [facility] [address] [place] [address] Billy Devlin PT Coag (PPP) [Time] 10.5 s Normal 9.0-11.6 [facility] Comment on above: Performed By: #### H BSANS #### [facility] [address] [place] [address] Billy Devlin US SINGLE QUAD RT UPPERon [...] by: KRISTEN GODINEZ Date: 2020-12-09 10:23 Normal [facility] Encounters Encounter Date Encounter Type Care Provider Facility Start: 05-26-2024 End: 05-26-2024 ambulatory RASHAWN VELÁZQUEZ Not Available Start: 05-24-2024 End: 05-24-2024 ambulatory DARIEN WARE Not Available Start: 04-03-2022 End: 04-03-2022 ambulatory Magaly Sewell Facility:[facility] Start: 11-26-2021 End: 11-27-[address] GENEVIEVE ARREOLA Facility:[facility] Start: 11-15-2021 End: 11-15-[address] GENEVIEVE ARREOLA Facility:[facility] Start: 10-08-2021 End: 10-09-[address] AMADOU BROWN Facility:[facility] Start: 09-10-2021 End: 09-11-[address] AMADOU BROWN Facility:[facility] Start: 08-15-2021 End: 08-16-[address] AMADOU BROWN Facility:[facility] Start: 08-13-2021 Encounter for preprocedural laboratory examination DR DOCTOR PALUMBO [facility] Start: 08-10-2021 AUDIT No PCP None [facility] [place] [facility] Work Phone: Start: 08-02-2021 Chart Update No PCP None [facility] [place] [facility] Work Phone: Start: 07-28-2021 End: 07-29-[address] DOCTOR PALUMBO Facility:[facility] Start: 07-28-2021 End: 07-29-2021 Encounter for preprocedural laboratory examination DR DOCTOR PALUMBO Facility:[facility] Start: 07-13-2021 AUDIT No PCP None [facility] [place] [facility] Work Phone: Start: 07-09-2021 End: [...] Start: 04-10-2021 AUDIT No PCP None [facility] [place] [facility] Work Phone: Start: 04-10-2021 Office outpatient ne w 45 minutes No PCP None [facility] Work Phone: Start: 04-06-2021 End: 04-07-[address] GENEVIEVE ARREOLA Facility:[facility] Start: 03-30-2021 End: 03-31-[address] GENEVIEVE ARREOLA Facility:[facility] Start: 03-22-2021 End: 03-23-[address] GENEVIEVE ARREOLA Facility:[facility] Start: 03-17-2021 End: 03-18-[address] AMADOU BROWN Facility:[facility] Start: 03-08-2021 End: 03-09-[address] AMADOU BROWN Facility:[facility] Start: 02-13-2021 End: 02-14-[address] TARAH SAM Facility:[facility] Start: 02-03-2021 End: 02-04-[address] AMADOU BROWN Facility:[facility] Start: 01-22-2021 End: 01-23-[address] GENEVIEVE ARREOLA Facility:[facility] Start: 01-09-2021 End: 01-09-[address] GENEVIEVE ARREOLA Facility:[facility] Start: 01-06-2021 End: 01-07-[address] AMADOU BROWN Facility:[facility] Start: 12-09-2020 End: 01-31-[address] Teresa BANKS Facility:[facility] Evaluation finding No PCP None [facility] [place] [address] [facility] Work Phone: Procedures Date Procedure Procedure Detail Performing Clinician Biopsy of liver No PCP None Repair of musculoten dinous cuff of shoulder No PCP None Payers Date Payer Category Payer Unknown [id number] 1970 Unknown [id number] 2.16.84 0.1.936615.3.579.2.593 1969 Unknown [id number] 2.16.84 0.1.297089.3.579.2.593 1969 Unknown [id number] 2.16.84 0.1.412280.3.579.2.593 1969 Unknown [id number] 2.16.84 0.1.159999.3.579.2.593 1969 Unknown [id number] 2.16.84 0.1.536783.3.579.2.593 1969 Unknown [id number] 2.16.84 0.1.720558.3.579.2.593 1969 Unknown [id number] 2.16.84 0.1.228801.3.579.2.593 1969 Unknown [id number] 2.16.84 0.1.969982.3.579.2.593 1969 Unknown [id number] 2.16.84 0.1.722774.3.579.2.593 1969 Unknown [id number] 2.16.84 0.1.252424.3.579.2.593 1969 Unknown [id number] 2.16.84 0.1.000375.3.579.2.593 1969 Unknown [id number] 2.16.84 0.1.465987.3.579.2.593 1969 Unknown [id number] 2.16.84 0.1.898220.3.579.2.593 1969 Unknown [id number] 2.16.84 0.1.338667.3.579.2.593 1969 Unknown [id number] 2.16.84 0.1.155622.3.579.2.593 1969 Unknown [id number] 2.16.84 0.1.497427.3.579.2.593 1969 Unknown [id number] 2.16.84 0.1.563164.3.579.2.593 1969 Unknown [id number] 2.16.84 0.1.340669.3.579.2.593 1969 Unknown [id number] 2.16.84 0.1.547328.3.579.2.593 1969 Unknown [id number] 2.16.84 0.1.977927.3.579.2.593 1969 Unknown [id number] 2.16.84 0.1.275374.3.579.2.593 1969 Unknown [id number] 2.16.84 0.1.141884.3.579.2.593 1969 Unknown [id number] 2.16.84 0.1.322642.3.579.2.1259 1969 Unknown [id number] 2.16.84 0.1.510753.3.579.2.1259 1959 Self-pay [id number] 1959 Self-pay 1959 Unknown [id number] Unknown ANTHEM Unknown [id number] 2.16.84 0.1.272959.3.579.2.593 Unknown [id number] 2.16.84 0.1.875371.3.579.2.593 Unknown [id number] 2.16.8 40.1.267817.3.579.2.531 Social History Date Type Detail Facility Former smoker Former smoker -[facility] [address] [facility] Work Phone: Start: 1970 Sex Assigned At Male F [facility] Clinical Note 07-31-2021 Note Date & Type [...] report Procedure performed by: Sandy Roland MD Wrapping Machine Operator(s): Dee Lopes Md Estimated Blood Loss (mL): [...] Completion Last Updated: 02-Aug-2021 13:04 by Sandy Roland) [facility] Clinical Note 05-08-2021 Note Date & Type Note Facility 05-08-2021 Note Pre-procedure Verifi cation and Time Out: Pre-Procedure Verification and Time Out: Procedure Locationprocedure area HUDDLE - Pre-procedure Verificationcompleted TIME OUT - Final Verificationcompleted DEBRIEFcompleted General Information: Anesthesia Critical Care: Non-Anesthesia Date/Time of Procedure: 08-May-2021 11:57 Post-Procedure Diagnosis: same Procedure Name: CT Liver Biopsy Findings: grossly normal anatomy Procedure performed by: me Wrapping Machine Operator(s): none Estimated Blood Loss (mL): none Specimen: [...] Last Updated: 08-May-2021 11:58 by Uri Bacon) [facility] Evaluation note Note Date & Type Note Facility Evaluation note No assessment information [facility] Work Phone: History of Present [...] no lower extremity edema.Symptom History:Modifying Factors:Associated Symptoms: [facility] [address] [facility] Work Phone: Chief Complaint [...] section and content) DATE CREATED AUTHOR 04/14/2021 [employer] DATE CREATED AUTHOR AUTHOR'S ORGANIZ ATION 05/15/2021 [facility] DATE CREATED AUTHOR AUTHOR'S ORGANIZ ATION 11/29/2021 [facility] DATE CREATED AUTHOR AUTHOR'S ORGANIZ ATION 04/15/2022 [facility] DATE CREATED AUTHOR AUTHOR'S ORGANIZ ATION 01/28/2023 [facility] DATE CREATED AUTHOR AUTHOR'S ORGANIZ ATION 05/24/2023 [facility] DATE CREATED AUTHOR AUTHOR'S ORGANIZ ATION 05/28/2024 [facility] EPIC Goals (unrecognized section and content) Goals may [...] BE BASED ON THE PRIMARY CLINICAL RECORDS. [facility] provides no warranty or guarantee of the accuracy or completeness of information in this document.
[2024-06-15 10:37] LABS: Alanine Aminotransferase 21 U/L (16-63); Albumin Globulin Ratio 0.7; Albumin Level 2.8 g/dL (3.4-5.0); Alkaline Phosphatase 70 U/L (46-116); Anion Gap 12.7; Aspartate Amino Transferase 37 U/L (15-37); BUN Creatinine Ratio 7.2; Bilirubin Total 1.5 mg/dL (0.2-1.0); Calcium 9.1 mg/dL (8.5-10.1); Carbon Dioxide 25.7 mmol/L (21.0-32.0); Chloride 106 mmol/L (98-107); Estimated GFR (African America >60 (>=60); Estimated GFR (Non-African Ame >60 (>=60); Gamma Glutamyl Transpeptidase 101 U/L (15-85); Globulin 3.8 g/dL; Glucose 135 mg/dL (74-106); Potassium 4.4 mmol/L (3.5-5.1); Sodium 140 mmol/L (136-145); Total Protein 6.6 g/dL (6.4-8.2)
== END 2024-06-15 09:33 | disposition home or self-care (01) ==
LOC: LAB 09:32
PROVIDERS: PCP Family Medicine; Visit Provider Family Medicine
DX: K76.0 Fatty (change of) liver, not elsewhere classified (principal)
CPT/HCPCS: 36415; 80053; 82977

== ENCOUNTER 2024-06-22 14:23 | Outpatient (OUT) | payer OTHER, SELFPAY ==
--- NOTE | 2024-06-22 14:27 | ECG_ITS ---
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
--- OUTSIDE RECORDS SUMMARY | 2024-06-22 14:46 | XMS_ITS | CCD ---
Author Organization [facility] Care Team Providers Care Straddle Bug Driver Name Role Phone None, No PCP Unavailable Unavailable STEPHANIE, DR AMADOU Chang Attending Unavailable STEPHANIE, DR AMADOU Chang Consulting Unavailable STEPHAINE, DR AMADOU Chang Admitting Unavailable MAXWELL, DR [...] VALLEJO Primary Care Unavailable STEPHANIE, DR AMADOU hCang Consulting Unavailable STEPHANIE, DR AMADOU Chang Attending [...] Allergy 2 Swelling of the Eye [facility] Repository (1 source) Morphine Drug Allergy 2 [facility] Repository Medications Current Medications Medication Drug [...] office Testingon 01-29-20 23 In office Testing [id number] [facility] AMYLASEon 11-26-2021 Amylase [Catalytic activity/Vol] 53 U/L Normal 31-110 [facility] Comment on above: Performed By: #### T 7, LIPA, TSH, AMADOU, CMP #### [facility] [address] [place] [address] [id number] [address] Krystle Heaton CBC AUTO DIFFon 11-26-2021 BASO # 0.0 103/ul Normal 0.0-0.1 [facility] Comment on above: Performed By: #### F ERR #### [facility] [address] [place] [address] Dr. Krystle Heaton Basophils/100 WBC (Bld) 0.6 % Normal 0.2-2.0 [facility] Comment on above: Performed By: #### F ERR #### [facility] [address] [place] [address] Dr. Krystle Heaton EO # 0.1 103/ul Normal 0.0-0.7 [facility] Comment on above: Performed By: #### F ERR #### [facility] [address] [place] [address] Dr. Krystle Heaton Eosinophils/100 WBC (Bld) 2.7 % Normal 0.9-7.0 [facility] Comment on above: Performed By: #### F ERR #### [facility] [address] [place] [address] Dr. Krystle Heaton Erythrocyte distribution width (RBC) [Ratio] 16.0 % Critically high 11.0-15.0 [facility] Comment on above: Performed By: #### F ERR #### [facility] [address] [place] [address] Dr. Krystle Heaton Hematocrit (Bld) [Volume fraction] 42.8 % Normal 42.0-54.0 [facility] Comment on above: Performed By: #### F ERR #### [facility] [address] [place] [address] Dr. Krystle Heaton Hemoglobin (Bld) [Mass/Vol] 13.0 g/dL Critically low 14.0-18.0 [facility] Comment on above: Performed By: #### F ERR #### [facility] [address] [place] [address] Dr. Krystle Heaton IG # 0.02 10e3/ul Normal 0.00-0.03 [facility] Comment on above: Performed By: #### F ERR #### [facility] [address] [place] [address] Dr. Krystle Heaton IG % 0.4 % Normal 0.0-0.5 [facility] Comment on above: Performed By: #### F ERR #### [facility] [address] [place], [place] [id number] Dr. Krystle Heaton LYMPH # 0.9 103/ul Critically low 1.2-3.8 [facility] Comment on above: Performed By: #### F ERR #### [facility] [address] [place] [address] Dr. Krystle Heaton Lymphocytes/100 WBC (Bld) 19.1 % Critically low 20.5-60.0 [facility] Comment on above: Performed By: #### F ERR #### [facility] [address] [place] [address] Dr. Krystle Heaton MANUAL DIFF REQ NO Normal [facility] Comment on above: Performed By: #### F ERR #### [facility] [address] [place] [address] Dr. Krystle Heaton MCH (RBC) [Entitic mass] 27.7 pg Normal 25.9-34.0 [facility] Comment on above: Performed By: #### F ERR #### [facility] [address] [place] [address] Dr. Krystle Heaton MCHC (RBC) [Mass/Vol] 30.4 g/dL Normal 29.9-35.2 [facility] Comment on above: Performed By: #### F ERR #### [facility] [address] [place] [address] Dr. Krystle Heaton MCV (RBC) [Entitic vol] 91.1 fL Normal 80.0-94.0 [facility] Comment on above: Performed By: #### F ERR #### [facility] [address] [place] [address] Dr. Krystle Heaton MONO # 0.5 103/ul Normal 0.3-0.8 [facility] Comment on above: Performed By: #### F ERR #### [facility] [address] [place] [address] Dr. Krystle Heaton Monocytes/100 WBC (Bld) 10.4 % Normal 1.7-12.0 [facility] Comment on above: Performed By: #### F ERR #### [facility] [address] [place] [address] Dr. Krystle Heaton NEUT # 3.2 103/ul Normal 1.4-6.5 [facility] Comment on above: Performed By: #### F ERR #### [facility] [address] [place] [address] Dr. Krystle Heaton Neutrophils/100 WBC (Bld) 66.8 % Normal 43.0-75.0 [facility] Comment on above: Performed By: #### F ERR #### [facility] [address] [place] [address] Dr. Krystle Heaton Platelet mean volume (Bld) [Entitic vol] 11.3 fL Normal 9.5-13.5 [facility] Comment on above: Performed By: #### F ERR #### [facility] [address] [place] [address] Dr. Krystle Heaton PLT 177 103/ul Normal 150-450 [facility] Comment on above: Performed By: #### F ERR #### [facility] [address] [place] [address] Dr. Krystle Heaton RBC 4.70 106/ul Normal 4.70-6.10 [facility] Comment on above: Performed By: #### F ERR #### [facility] [address] [place] [address] Dr. Krystle Heaton WBC 4.8 103/ul Normal 4.0-11.0 [facility] Comment on above: Performed By: #### F ERR #### [facility] [address] [place] [address] Dr. Krystle Heaton FERRITINon 11-26-2021 Ferritin [Mass/Vol] 63.0 ng/mL Normal 17.9-464.0 [facility] Comment on above: Performed By: #### C BC #### [facility] [address] [place] [address] Billy Devlin FREE THYROXINE INDEX T7on FTI 2.14 Normal [facility] Comment on above: Performed By: #### T 7, LIPA, TSH, AMADOU, CMP #### [facility] [address] [place] [address] Dr. Krystle Heaton T3U 34.0 % Normal 23.5-40.5 [facility] Comment on above: Performed By: #### T 7, LIPA, TSH, AMADOU, CMP #### [facility] [address] [place] [address] Dr. Krystle Heaton T4 [Mass/Vol] 6.30 ug/dL Normal 5.53-11.00 [facility] Comment on above: Performed By: #### T 7, LIPA, TSH, AMADOU, CMP #### [facility] [address] [place] [address] Dr. Krystle Heaton LIPASEon 11-26-2021 Lipase [Catalytic activity/Vol] 115.0 U/L Normal 23.0-300.0 [facility] Comment on above: Performed By: #### T 7, LIPA, TSH, AMADOU, CMP #### [facility] [address] [place] [address] Dr. Krystle Heaton PROF 14(COMP METB)on 022 Albumin [Mass/Vol] 3.6 g/dL Normal 3.5-5.0 [facility] Comment on above: Performed By: #### T 7, LIPA, TSH, AMADOU, CMP #### [facility] [address] [place] [address] Dr. Krystle Heaton Albumin/Globulin [Mass ratio] 0.9 {ratio} Normal [facility] Comment on above: Performed By: #### T 7, LIPA, TSH, AMADOU, CMP #### [facility] [address] [place] [address] Dr. Krystle Heaton ALP [Catalytic activity/Vol] 94 U/L Normal 38-126 [facility] Comment on above: Performed By: #### T 7, LIPA, TSH, AMADOU, CMP #### [facility] [address] [place] [address] Dr. Krystle Heaton ALT [Catalytic activity/Vol] 103 U/L Critically high 21-72 [facility] Comment on above: Performed By: #### T 7, LIPA, TSH, AMADOU, CMP #### [facility] [address] [place] [address] Dr. Krystle Heaton Anion gap [Moles/Vol] 12.8 mmol/L Normal [facility] Comment on above: Performed By: #### T 7, LIPA, TSH, AMADOU, CMP #### [facility] [address] [place] [address] Dr. Krystle Heaton AST [Catalytic activity/Vol] 148 U/L Critically high 17-59 [facility] Comment on above: Performed By: #### T 7, LIPA, TSH, AMADOU, CMP #### [facility] [address] [place] [address] Dr. Krystle Heaton Bilirubin [Mass/Vol] 1.2 mg/dL Normal 0.2-1.3 [facility] Comment on above: Performed By: #### T 7, LIPA, TSH, AMADOU, CMP #### [facility] [address] [place] [address] Dr. Krystle Heaton Calcium [Mass/Vol] 9.1 mg/dL Normal 8.4-10.2 [facility] Comment on above: Performed By: #### T 7, LIPA, TSH, AMADOU, CMP #### [facility] [address] [place] [address] Dr. Krystle Heaton Chloride [Moles/Vol] 100 mmol/L Normal 98-107 [facility] Comment on above: Performed By: #### T 7, LIPA, TSH, AMADOU, CMP #### [facility] [address] [place] [address] Dr. Krystle Heaton CO2 [Moles/Vol] 26.7 mmol/L Normal 22.0-30.[address] [facility] Comment on above: Performed By: #### T 7, LIPA, TSH, AMADOU, CMP #### [facility] [address] [place] [address] Dr. Krystle Heaton Creatinine [Mass/Vol] 0.94 mg/dL Normal 0.66-1.25 [facility] Comment on above: Performed By: #### T 7, LIPA, TSH, AMADOU, CMP #### [facility] [address] [place] [address] Dr. Krystle Heaton EGFR-AF GABONESE >60 Normal >=60 [facility] Comment on above: Performed By: #### T 7, LIPA, TSH, AMADOU, CMP #### [facility] [address] [place] [address] Dr. Krystle Heaton EGFR-NON AF GABONESE >60 Normal >=60 [facility] Comment on above: Performed By: #### T 7, LIPA, TSH, AMADOU, CMP #### [facility] [address] [place] [address] Dr. Krystle Heaton Globulin (S) [Mass/Vol] 4.0 g/dL Normal [facility] Comment on above: Performed By: #### T 7, LIPA, TSH, AMADOU, CMP #### [facility] [address] [place] [address] Dr. Krystle Heaton Glucose [Mass/Vol] 112 mg/dL Critically high 74-106 [facility] Comment on above: Performed By: #### T 7, LIPA, TSH, AMADOU, CMP #### [facility] [address] [place] [address] Dr. Krystle Heaton Potassium [Moles/Vol] 4.5 mmol/L Normal 3.4-5.0 [facility] Comment on above: Performed By: #### T 7, LIPA, TSH, AMADOU, CMP #### [facility] [address] [place] [address] Dr. Krystle Heaton Protein [Mass/Vol] 7.6 g/dL Normal 6.1-8.2 [facility] Comment on above: Performed By: #### T 7, LIPA, TSH, AMADOU, CMP #### [facility] [address] [place] [address] Dr. Krystle Heaton Sodium [Moles/Vol] 135 mmol/L Critically low 137-145 [facility] Comment on above: Performed By: #### T 7, LIPA, TSH, AMADOU, CMP #### [facility] [address] [place] [address] Dr. Krystle Heaton Urea nitrogen [Mass/Vol] 5.0 mg/dL Critically low 9.0-20.0 [facility] Comment on above: Performed By: #### T 7, LIPA, TSH, AMADOU, CMP #### [facility] [address] [place] [address] Dr. Krystle Heaton Urea nitrogen/Creatinine [Mass ratio] 5.3 mg/mg Normal [facility] Comment on above: Performed By: #### T 7, LIPA, TSH, AMADOU, CMP #### [facility] [address] [place] [address] Dr. Krystle Heaton TSHon 11-26-2021 TSH 1.842 uIU/mL Normal 0.470-4.680 [facility] Comment on above: Performed By: #### T 7, LIPA, TSH, AMADOU, CMP #### [facility] [address] [place] [address] Dr. Krystle Heaton TSH RANGE SEE BELOW Normal [facility] Comment on above: Result Comment: <0.3 4 UIU/ml HYPERTHYROID 0.34-5.60 UIU/ml EUTHYROID >5.60 UIU/ml HYPOTHYROID Performed By: #### T 7, LIPA, TSH, AMADOU, CMP #### [facility] [address] [place] [address] Dr. Krystle Heaton [facility]on SARS-CoV-2 (COVID-19) RNA JIMBO+probe Ql (Unsp spec) Not detected Normal NOT DETECTED [facility] Comment on above: Result Comment: This test is not yet approved or cleared by the [place] FDA. When there are no FDA-approved or cleared tests available, and other criteria are met, FDA can make tests available under an emergency access mechanism called an Emergency Use Authorization (EUA). The EUA for this test is supported by the Analysis Tester of Health and Human Service's (HHS's) declaration [...] SARS-CoV-2. Performed By: #### F ERR #### [facility] [address] [place] [address] Dr. Krystle Heaton CBC AUTO DIFFon 10-08-2021 BASO # 0.0 103/ul Normal 0.0-0.1 [facility] Comment on above: Performed By: #### T 7, LIPA, TSH, AMADOU, CMP #### [facility] [address] [place] [address] Dr. Krystle Heaton Basophils/100 WBC (Bld) 0.7 % Normal 0.2-2.0 [facility] Comment on above: Performed By: #### T 7, LIPA, TSH, AMADOU, CMP #### [facility] [address] [place] [address] Dr. Krystle Heaton EO # 0.2 103/ul Normal 0.0-0.7 [facility] Comment on above: Performed By: #### T 7, LIPA, TSH, AMADOU, CMP #### [facility] [address] [place] [address] Dr. Krystle Heaton Eosinophils/100 WBC (Bld) 3.6 % Normal 0.9-7.0 [facility] Comment on above: Performed By: #### T 7, LIPA, TSH, AMADOU, CMP #### [facility] [address] [place] [address] Dr. Krystle Heaton Erythrocyte distribution width (RBC) [Ratio] 16.0 % Critically high 11.0-15.0 [facility] Comment on above: Performed By: #### T 7, LIPA, TSH, AMADOU, CMP #### [facility] [address] [place] [address] Dr. Krystle Heaton Hematocrit (Bld) [Volume fraction] 38.7 % Critically low 42.0-54.0 [facility] Comment on above: Performed By: #### T 7, LIPA, TSH, AMADOU, CMP #### [facility] [address] [place] [address] Dr. Krystle Heaton Hemoglobin (Bld) [Mass/Vol] 11.7 g/dL Critically low 14.0-18.0 [facility] Comment on above: Performed By: #### T 7, LIPA, TSH, AMADOU, CMP #### [facility] [address] [place] [address] Dr. Krystle Heaton IG # 0.01 10e3/ul Normal 0.00-0.03 [facility] Comment on above: Performed By: #### T 7, LIPA, TSH, AMADOU, CMP #### [facility] [address] [place] [address] Dr. Krystle Heaton IG % 0.2 % Normal 0.0-0.5 [facility] Comment on above: Performed By: #### T 7, LIPA, TSH, AMADOU, CMP #### [facility] [address] [place] [address] Dr. Krystle Heaton LYMPH # 1.6 103/ul Normal 1.2-3.8 [facility] Comment on above: Performed By: #### T 7, LIPA, TSH, AMADOU, CMP #### [facility] [address] [place] [address] Dr. Krystle Heaton Lymphocytes/100 WBC (Bld) 29.2 % Normal 20.5-60.0 [facility] Comment on above: Performed By: #### T 7, LIPA, TSH, AMADOU, CMP #### [facility] [address] [place] [address] Dr. Krystle Heaton MANUAL DIFF REQ NO Normal [facility] Comment on above: Performed By: #### T 7, LIPA, TSH, AMADOU, CMP #### [facility] [address] [place] [address] Dr. Krystle Heaton MCH (RBC) [Entitic mass] 27.7 pg Normal 25.9-34.0 [facility] Comment on above: Performed By: #### T 7, LIPA, TSH, AMADOU, CMP #### [facility] [address] [place] [address] Dr. Krystle Heaton MCHC (RBC) [Mass/Vol] 30.2 g/dL Normal 29.9-35.2 [facility] Comment on above: Performed By: #### T 7, LIPA, TSH, AMADOU, CMP #### [facility] [address] [place] [address] Dr. Krystle Heaton MCV (RBC) [Entitic vol] 91.5 fL Normal 80.0-94.0 [facility] Comment on above: Performed By: #### T 7, LIPA, TSH, AMADOU, CMP #### [facility] [address] [place] [address] Dr. Krystle Heaton MONO # 0.6 103/ul Normal 0.3-0.8 [facility] Comment on above: Performed By: #### T 7, LIPA, TSH, AMADOU, CMP #### [facility] [address] [place] [address] Dr. Krystle Heaton Monocytes/100 WBC (Bld) 10.5 % Normal 1.7-12.0 [facility] Comment on above: Performed By: #### T 7, LIPA, TSH, AMADOU, CMP #### [facility] [address] [place] [address] Dr. Krystle Heaton NEUT # 3.1 103/ul Normal 1.4-6.5 [facility] Comment on above: Performed By: #### T 7, LIPA, TSH, AMADOU, CMP #### [facility] [address] [place] [address] Dr. Krystle Heaton Neutrophils/100 WBC (Bld) 55.8 % Normal 43.0-75.0 [facility] Comment on above: Performed By: #### T 7, LIPA, TSH, AMADOU, CMP #### [facility] [address] [place] [address] Dr. Krystle Heaton Platelet mean volume (Bld) [Entitic vol] 10.9 fL Normal 9.5-13.5 [facility] Comment on above: Performed By: #### T 7, LIPA, TSH, AMADOU, CMP #### [facility] [address] [place] [address] Dr. Krystle Heaton PLT 214 103/ul Normal 150-450 [facility] Comment on above: Performed By: #### T 7, LIPA, TSH, AMADOU, CMP #### [facility] [address] [place] [address] Dr. Krystle Heaton RBC 4.23 106/ul Critically low 4.70-6.10 [facility] Comment on above: Performed By: #### T 7, LIPA, TSH, AMADOU, CMP #### [facility] [address] [place] [address] Dr. Krystle Heaton WBC 5.5 103/ul Normal 4.0-11.0 [facility] Comment on above: Performed By: #### T 7, LIPA, TSH, AMADOU, CMP #### [facility] [address] [place] [address] Dr. Krystle Heaton FERRITINon 10-08-2021 Ferritin [Mass/Vol] 59.0 ng/mL Normal 17.9-464.0 [facility] Comment on above: Performed By: #### T 7, LIPA, TSH, AMADOU, CMP #### [facility] [address] [place] [address] Dr. Krystle Heaton CBC AUTO DIFFon 09-10-2021 BASO # 0.0 103/ul Normal 0.0-0.1 [facility] Comment on above: Performed By: #### C BC #### [facility] [address] [place] [address] Billy Quita Basophils/100 WBC (Bld) 0.8 % Normal 0.2-2.0 [facility] Comment on above: Performed By: #### C BC #### [facility] [address] [place] [address] Billy Quita EO # 0.1 103/ul Normal 0.0-0.7 [facility] Comment on above: Performed By: #### C BC #### [facility] [address] [place] [address] Billy Quita Eosinophils/100 WBC (Bld) 3.5 % Normal 0.9-7.0 [facility] Comment on above: Performed By: #### C BC #### [facility] [address] [place] [address] Billy Quita Erythrocyte distribution width (RBC) [Ratio] 16.7 % Critically high 11.0-15.0 [facility] Comment on above: Performed By: #### C BC #### [facility] [address] [place] [address] Billy Quita Hematocrit (Bld) [Volume fraction] 40.6 % Critically low 42.0-54.0 [facility] Comment on above: Performed By: #### C BC #### [facility] [address] [place] [address] Billy Quita Hemoglobin (Bld) [Mass/Vol] 12.4 g/dL Critically low 14.0-18.0 [facility] Comment on above: Performed By: #### C BC #### [facility] [address] [place] [address] Billy Quita IG # 0.01 10e3/ul Normal 0.00-0.03 [facility] Comment on above: Performed By: #### C BC #### [facility] [address] [place] [address] Billy Quita IG % 0.3 % Normal 0.0-0.5 [facility] Comment on above: Performed By: #### C BC #### [facility] [address] [place] [address] Billy Quita LYMPH # 1.5 103/ul Normal 1.2-3.8 [facility] Comment on above: Performed By: #### C BC #### [facility] [address] [place] [address] Billy Devlin Lymphocytes/100 WBC (Bld) 39.7 % Normal 20.5-60.0 [facility] Comment on above: Performed By: #### C BC #### [facility] [address] [place] [address] Billy Devlin MANUAL DIFF REQ NO Normal [facility] Comment on above: Performed By: #### C BC #### [facility] [address] [place], [place] [address] Billy Devlin MCH (RBC) [Entitic mass] 27.6 pg Normal 25.9-34.0 [facility] Comment on above: Performed By: #### C BC #### [facility] [address] [place] [id number] Billy Devlin MCHC (RBC) [Mass/Vol] 30.5 g/dL Normal 29.9-35.2 [facility] Comment on above: Performed By: #### C BC #### [facility] [address] [place], [place] [id number] Billy Devlin MCV (RBC) [Entitic vol] 90.2 fL Normal 80.0-94.0 [facility] Comment on above: Performed By: #### C BC #### [facility] [address] [place] [address] Billy Devlin MONO # 0.5 103/ul Normal 0.3-0.8 [facility] Comment on above: Performed By: #### C BC #### [facility] [address] [place], [place] [id number] Billy Devlin Monocytes/100 WBC (Bld) 13.3 % Critically high 1.7-12.0 [facility] Comment on above: Performed By: #### C BC #### [facility] [address] [place], [place] [id number] Billy Devlin NEUT # 1.6 103/ul Normal 1.4-6.5 [facility] Comment on above: Performed By: #### C BC #### [facility] [address] [place], [place] [id number] Billy Devlin Neutrophils/100 WBC (Bld) 42.4 % Critically low 43.0-75.0 [facility] Comment on above: Performed By: #### C BC #### [facility] [address] [place], [place] [id number] Billycarrillo Devlin Platelet mean volume (Bld) [Entitic vol] 11.5 fL Normal 9.5-13.5 [facility] Comment on above: Performed By: #### C BC #### [facility] [address] [place], [place] [id number] Billy Devlin PLT 136 103/ul Critically low 150-450 [facility] Comment on above: Performed By: #### C BC #### [facility] [address] [place] [address] Billy Devlin RBC 4.50 106/ul Critically low 4.70-6.10 [facility] Comment on above: Performed By: #### C BC #### [facility] [address] [place] [address] Billy Devlin WBC 3.7 103/ul Critically low 4.0-11.0 [facility] Comment on above: Performed By: #### C BC #### [facility] [address] [place] [address] Billy Devlin FERRITINon 09-10-2021 Ferritin [Mass/Vol] 106.0 ng/mL Normal 17.9-464.0 [facility] Comment on above: Performed By: #### F ERR #### [facility] [address] [place] [address] Dr. Krystle Heaton CBC AUTO DIFFon 08-15-2021 BASO # 0.0 103/ul Normal 0.0-0.1 [facility] Comment on above: Performed By: #### C BC #### [facility] [address] [place] [address] Dr. Krystle Heaton Basophils/100 WBC (Bld) 0.8 % Normal 0.2-2.0 [facility] Comment on above: Performed By: #### C BC #### [facility] [address] [place] [address] Dr. Krystle Heaton EO # 0.2 103/ul Normal 0.0-0.7 [facility] Comment on above: Performed By: #### C BC #### [facility] [address] [place] [address] Dr. Krystle Heaton Eosinophils/100 WBC (Bld) 4.4 % Normal 0.9-7.0 [facility] Comment on above: Performed By: #### C BC #### [facility] [address] [place] [address] Dr. Krystle Heaton Erythrocyte distribution width (RBC) [Ratio] 15.7 % Critically high 11.0-15.0 [facility] Comment on above: Performed By: #### C BC #### [facility] [address] [place] [address] Dr. Krystle Heaton Hematocrit (Bld) [Volume fraction] 39.4 % Critically low 42.0-54.0 [facility] Comment on above: Performed By: #### C BC #### [facility] [address] [place] [address] Dr. Krystle Heaton Hemoglobin (Bld) [Mass/Vol] 12.2 g/dL Critically low 14.0-18.0 [facility] Comment on above: Performed By: #### C BC #### [facility] [address] [place] [address] Dr. Krystle Heaton IG # 0.01 10e3/ul Normal 0.00-0.03 [facility] Comment on above: Performed By: #### C BC #### [facility] [address] [place] [address] Dr. Krystle Heaton IG % 0.2 % Normal 0.0-0.5 [facility] Comment on above: Performed By: #### C BC #### [facility] [address] [place] [address] Dr. Krystle Heaton LYMPH # 1.5 103/ul Normal 1.2-3.8 [facility] Comment on above: Performed By: #### C BC #### [facility] [address] [place] [address] Dr. Krystle Heaton Lymphocytes/100 WBC (Bld) 32.2 % Normal 20.5-60.0 [facility] Comment on above: Performed By: #### C BC #### [facility] [address] [place] [address] Dr. Krystle Heaton MANUAL DIFF REQ NO Normal [facility] Comment on above: Performed By: #### C BC #### [facility] [address] [place] [address] Dr. Krystle Heaton MCH (RBC) [Entitic mass] 27.4 pg Normal 25.9-34.0 [facility] Comment on above: Performed By: #### C BC #### [facility] [address] [place] [address] Dr. Krystle Heaton MCHC (RBC) [Mass/Vol] 31.0 g/dL Normal 29.9-35.2 [facility] Comment on above: Performed By: #### C BC #### [facility] [address] [place] [address] Dr. Krystle Heaton MCV (RBC) [Entitic vol] 88.5 fL Normal 80.0-94.0 [facility] Comment on above: Performed By: #### C BC #### [facility] [address] [place] [address] Dr. Krystle Heaton MONO # 0.6 103/ul Normal 0.3-0.8 [facility] Comment on above: Performed By: #### C BC #### [facility] [address] [place] [address] Dr. Krystle Heaton Monocytes/100 WBC (Bld) 11.7 % Normal 1.7-12.0 [facility] Comment on above: Performed By: #### C BC #### [facility] [address] [place] [address] Dr. Krystle Heaton NEUT # 2.4 103/ul Normal 1.4-6.5 [facility] Comment on above: Performed By: #### C BC #### [facility] [address] [place] [address] Dr. Krystle Heaton Neutrophils/100 WBC (Bld) 50.7 % Normal 43.0-75.0 [facility] Comment on above: Performed By: #### C BC #### [facility] [address] [place] [address] Dr. Krystle Heaton Platelet mean volume (Bld) [Entitic vol] 11.4 fL Normal 9.5-13.5 [facility] Comment on above: Performed By: #### C BC #### [facility] [address] [place] [address] Dr. Krystle Heaton PLT 169 103/ul Normal 150-450 [facility] Comment on above: Performed By: #### C BC #### [facility] [address] [address] [address] Krystle Heaton RBC 4.45 106/ul Critically low 4.70-6.10 [facility] Comment on above: Performed By: #### C BC #### [facility] [address] [address] [address] Krystle Heaton WBC 4.8 103/ul Normal 4.0-11.0 [facility] Comment on above: Performed By: #### C BC #### [facility] [address] [place] [address] Dr. Krystle Heaton FERRITINon 08-15-2021 Ferritin [Mass/Vol] 103.0 ng/mL Normal 17.9-464.0 [facility] Comment on above: Performed By: #### T 7, LIPA, TSH, AMADOU, CMP #### [facility] [address] [place] [address] Dr. Krystle Heaton No Panel Informationon 07-31 Name ANGIE FRITZ Pathologist: COLLETTE DOTSON MD Date of Procedure: 07/31/2021 [facility] Work Phone: Radiologyon 07-31-2021 US Guidance for fine needle aspiration of Liver Normal [facility] [id number] Work Phone: [facility] Surgical Pathology Depar tmenton 07-31-2021 [facility] Surgical Pathology Department Name ANGIE FRITZ Pathologist: [...] toto in 2 cassettes A1 and A2. [facility]/07/31/2021 The assays/tests were performed with appropriate positive and negative controls which stained appropriately. [facility] Department of Pathology [address] [place] [address] Normal [facility] Comment on above: Performed By: #### U [facility] #### [facility] Surgical Pathology Department [address] [place] [address] US BIOPSY LIVER PERon 2020 US BIOPSY LIVER PER Patient Name: ANGIE FRITZ STUDY: US BIOPSY LIVER PER; 07/31/2021 1:03 pm PROCEDURE: ULTRASOUND GUIDED NON TARGETED RANDOM BIOPSY OF THE LIVER INDICATION: Hemochromatosis; here for tissue diagnosis COMPARISON: CT-guided liver biopsy 05/08/2021. ACCESSION NUMBER(S): [id number] ORDERING CLINICIAN: ENOCH HERRMANN [employer]IL[employer]IRTH AND INFANT CARE TEACHER: Dr. Roland (attending) Dee Lopes MD MEDICATIONS: [...] as stated. This study was interpreted at [place], [place]. Electronically signed by: SANDY ROLAND MD Normal [facility] CBC AUTO DIFFon 07-28-2021 BASO # 0.0 103/ul Normal 0.0-0.1 [facility] Comment on above: Performed By: #### T 7, LIPA, TSH, AMADOU, CMP #### [facility] [address] [place], [place] [address] Dr. Krystle Heaton Basophils/100 WBC (Bld) 0.6 % Normal 0.2-2.0 [facility] Comment on above: Performed By: #### T 7, LIPA, TSH, AMADOU, CMP #### [facility] [address] [place], [place] [address] Dr. Krystle Heaton EO # 0.2 103/ul Normal 0.0-0.7 [facility] Comment on above: Performed By: #### T 7, LIPA, TSH, AMADOU, CMP #### [facility] [address] [place] [address] Dr. Krystle Heaton Eosinophils/100 WBC (Bld) 3.6 % Normal 0.9-7.0 [facility] Comment on above: Performed By: #### T 7, LIPA, TSH, AMADOU, CMP #### [facility] [address] [place] [address] Dr. Krystle Heaton Erythrocyte distribution width (RBC) [Ratio] 14.7 % Normal 11.0-15.0 [facility] Comment on above: Performed By: #### T 7, LIPA, TSH, AMADOU, CMP #### [facility] [address] [place] [address] Dr. Krystle Heaton Hematocrit (Bld) [Volume fraction] 37.4 % Critically low 42.0-54.0 [facility] Comment on above: Performed By: #### T 7, LIPA, TSH, AMADOU, CMP #### [facility] [address] [place] [address] Dr. Krystle Heaton Hemoglobin (Bld) [Mass/Vol] 11.5 g/dL Critically low 14.0-18.0 [facility] Comment on above: Performed By: #### T 7, LIPA, TSH, AMADOU, CMP #### [facility] [address] [place] [address] Dr. Krystle Heaton IG # 0.02 10e3/ul Normal 0.00-0.03 [facility] Comment on above: Performed By: #### T 7, LIPA, TSH, AMADOU, CMP #### [facility] [address] [place] [address] Dr. Krystle Heaton IG % 0.4 % Normal 0.0-0.5 [facility] Comment on above: Performed By: #### T 7, LIPA, TSH, AMADOU, CMP #### [facility] [address] [place] [address] Dr. Krystle Heaton LYMPH # 1.5 103/ul Normal 1.2-3.8 [facility] Comment on above: Performed By: #### T 7, LIPA, TSH, AMADOU, CMP #### [facility] [address] [place] [address] Dr. Krystle Heaton Lymphocytes/100 WBC (Bld) 31.3 % Normal 20.5-60.0 [facility] Comment on above: Performed By: #### T 7, LIPA, TSH, AMADOU, CMP #### [facility] [address] [place] [address] Dr. Krystle Heaton MANUAL DIFF REQ NO Normal [facility] Comment on above: Performed By: #### T 7, LIPA, TSH, AMADOU, CMP #### [facility] [address] [place] [address] Dr. Krystle Heaton MCH (RBC) [Entitic mass] 27.8 pg Normal 25.9-34.0 [facility] Comment on above: Performed By: #### T 7, LIPA, TSH, AMADOU, CMP #### [facility] [address] [place] [address] Dr. Krystle Heaton MCHC (RBC) [Mass/Vol] 30.7 g/dL Normal 29.9-35.2 [facility] Comment on above: Performed By: #### T 7, LIPA, TSH, AMADOU, CMP #### [facility] [address] [place] [address] Dr. Krystle Heaton MCV (RBC) [Entitic vol] 90.6 fL Normal 80.0-94.0 [facility] Comment on above: Performed By: #### T 7, LIPA, TSH, AMADOU, CMP #### [facility] [address] [place] [address] Dr. Krystle Heaton MONO # 0.6 103/ul Normal 0.3-0.8 [facility] Comment on above: Performed By: #### T 7, LIPA, TSH, AMADOU, CMP #### [facility] [address] [place] [address] Dr. Krystle Heaton Monocytes/100 WBC (Bld) 12.8 % Critically high 1.7-12.0 [facility] Comment on above: Performed By: #### T 7, LIPA, TSH, AMADOU, CMP #### [facility] [address] [address] [address] Krystle Heaton NEUT # 2.4 103/ul Normal 1.4-6.5 [facility] Comment on above: Performed By: #### T 7, LIPA, TSH, AMADOU, CMP #### [facility] [address] [place] [address] Dr. Krystle Heaton Neutrophils/100 WBC (Bld) 51.3 % Normal 43.0-75.0 [facility] Comment on above: Performed By: #### T 7, LIPA, TSH, AMADOU, CMP #### [facility] [address] [place] [address] Dr. Krystle Heaton Platelet mean volume (Bld) [Entitic vol] 11.4 fL Normal 9.5-13.5 [facility] Comment on above: Performed By: #### T 7, LIPA, TSH, AMADOU, CMP #### [facility] [address] [place] [address] Dr. Krystle Heaton PLT 190 103/ul Normal 150-450 [facility] Comment on above: Performed By: #### T 7, LIPA, TSH, AMADOU, CMP #### [facility] [address] [place] [address] Dr. Krystle Heaton RBC 4.13 106/ul Critically low 4.70-6.10 [facility] Comment on above: Performed By: #### T 7, LIPA, TSH, AMADOU, CMP #### [facility] [address] [place] [address] Dr. Krystle Heaton WBC 4.7 103/ul Normal 4.0-11.0 [facility] Comment on above: Performed By: #### T 7, LIPA, TSH, AMADOU, CMP #### [facility] [address] [place] [address] Dr. Krystle Heaton PROTIMEon 07-28-2021 INR Coag (PPP) [Relative time] 1.00 {INR} Normal [facility] Comment on above: Performed By: #### H BSANS #### [facility] [address] [place] [address] Billy Devlin INR GUIDELINES SEE BELOW Normal [facility] Comment on above: Result Comment: MOUNA RED INR: 2.0 - 3.0 CONDITIONS NOT LISTED BELOW 2.5 - 3.5 FOR PROSTHETIC HEART VALVE REPLACEMENT 2.5 - 3.5 RECURRENT THROMBOSIS Performed By: #### H ANJUMNS #### [facility] [address] [place] [address] Billy Devlin PT Coag (PPP) [Time] 10.8 s Normal 9.0-11.6 [facility] Comment on above: Performed By: #### H BSANS #### [facility] [address] [place] [address] Billy Devlin CBC AUTO DIFFon 07-09-2021 BASO # 0.0 103/ul Normal 0.0-0.1 [facility] Comment on above: Performed By: #### T 7, LIPA, TSH, AMADOU, CMP #### [facility] [address] [place] [address] Dr. Krystle Heaton Basophils/100 WBC (Bld) 0.4 % Normal 0.2-2.0 [facility] Comment on above: Performed By: #### T 7, LIPA, TSH, AMADOU, CMP #### [facility] [address] [place] [address] Dr. Krystle Heaton EO # 0.2 103/ul Normal 0.0-0.7 [facility] Comment on above: Performed By: #### T 7, LIPA, TSH, AMADOU, CMP #### [facility] [address] [place] [address] Dr. Krystle Heaton Eosinophils/100 WBC (Bld) 2.9 % Normal 0.9-7.0 [facility] Comment on above: Performed By: #### T 7, LIPA, TSH, AMADOU, CMP #### [facility] [address] [place] [address] Dr. Krystle Heaton Erythrocyte distribution width (RBC) [Ratio] 13.9 % Normal 11.0-15.0 [facility] Comment on above: Performed By: #### T 7, LIPA, TSH, AMADOU, CMP #### [facility] [address] [place] [address] Dr. Krystle Heaton Hematocrit (Bld) [Volume fraction] 40.4 % Critically low 42.0-54.0 [facility] Comment on above: Performed By: #### T 7, LIPA, TSH, AMADOU, CMP #### [facility] [address] [place] [address] Dr. Krystle Heaton Hemoglobin (Bld) [Mass/Vol] 12.3 g/dL Critically low 14.0-18.0 [facility] Comment on above: Performed By: #### T 7, LIPA, TSH, AMADOU, CMP #### [facility] [address] [place] [address] Dr. Krystle Heaton IG # 0.03 10e3/ul Normal 0.00-0.03 [facility] Comment on above: Performed By: #### T 7, LIPA, TSH, AMADOU, CMP #### [facility] [address] [place] [address] Dr. Krystle Heaton IG % 0.6 % Critically high 0.0-0.5 [facility] Comment on above: Performed By: #### T 7, LIPA, TSH, AMADOU, CMP #### [facility] [address] [place] [address] Dr. Krystle Heaton LYMPH # 1.5 103/ul Normal 1.2-3.8 [facility] Comment on above: Performed By: #### T 7, LIPA, TSH, AMADOU, CMP #### [facility] [address] [place] [address] Dr. Krystle Heaton Lymphocytes/100 WBC (Bld) 28.3 % Normal 20.5-60.0 [facility] Comment on above: Performed By: #### T 7, LIPA, TSH, AMADOU, CMP #### [facility] [address] [place] [address] Dr. Krystle Heaton MANUAL DIFF REQ NO Normal [facility] Comment on above: Performed By: #### T 7, LIPA, TSH, AMADOU, CMP #### [facility] [address] [place] [address] Dr. Krystle Heaton MCH (RBC) [Entitic mass] 28.3 pg Normal 25.9-34.0 [facility] Comment on above: Performed By: #### T 7, LIPA, TSH, AMADOU, CMP #### [facility] [address] [place] [address] Dr. Krystle Heaton MCHC (RBC) [Mass/Vol] 30.4 g/dL Normal 29.9-35.2 [facility] Comment on above: Performed By: #### T 7, LIPA, TSH, AMADOU, CMP #### [facility] [address] [place] [address] Dr. Krystle Heaton MCV (RBC) [Entitic vol] 93.1 fL Normal 80.0-94.0 [facility] Comment on above: Performed By: #### T 7, LIPA, TSH, AMADOU, CMP #### [facility] [address] [place] [address] Dr. Krystle Heaton MONO # 0.7 103/ul Normal 0.3-0.8 [facility] Comment on above: Performed By: #### T 7, LIPA, TSH, AMADOU, CMP #### [facility] [address] [place] [address] Dr. Krystle Heaton Monocytes/100 WBC (Bld) 13.4 % Critically high 1.7-12.0 [facility] Comment on above: Performed By: #### T 7, LIPA, TSH, AMADOU, CMP #### [facility] [address] [place] [address] Dr. Krystle Heaton NEUT # 2.8 103/ul Normal 1.4-6.5 [facility] Comment on above: Performed By: #### T 7, LIPA, TSH, AMADOU, CMP #### [facility] [address] [place] [address] Dr. Krystle Heaton Neutrophils/100 WBC (Bld) 54.4 % Normal 43.0-75.0 [facility] Comment on above: Performed By: #### T 7, LIPA, TSH, AMADOU, CMP #### [facility] [address] [place] [address] Dr. Krystle Heaton Platelet mean volume (Bld) [Entitic vol] 11.7 fL Normal 9.5-13.5 [facility] Comment on above: Performed By: #### T 7, LIPA, TSH, AMADOU, CMP #### [facility] [address] [place] [address] Dr. Krystle Heaton PLT 192 103/ul Normal 150-450 [facility] Comment on above: Performed By: #### T 7, LIPA, TSH, AMADOU, CMP #### [facility] [address] [place] [address] Dr. Krystle Heaton RBC 4.34 106/ul Critically low 4.70-6.10 [facility] Comment on above: Performed By: #### T 7, LIPA, TSH, AMADOU, CMP #### [facility] [address] [place] [address] Dr. Krystle Heaton WBC 5.2 103/ul Normal 4.0-11.0 [facility] Comment on above: Performed By: #### T 7, LIPA, TSH, AMADOU, CMP #### [facility] [address] [place] [address] Dr. Krystle Heaton FERRITINon 07-09-2021 Ferritin [Mass/Vol] 122.0 ng/mL Normal 17.9-464.0 [facility] Comment on above: Performed By: #### T 7, LIPA, TSH, AMADOU, CMP #### [facility] [address] [place] [address] Dr. Krystle Heaton CBC AUTO DIFFon 06-11-2021 BASO # 0.0 103/ul Normal 0.0-0.1 [facility] Comment on above: Performed By: #### T 7, LIPA, TSH, AMADOU, CMP #### [facility] [address] [place] [address] Dr. Krystle Heaton Basophils/100 WBC (Bld) 0.7 % Normal 0.2-2.0 [facility] Comment on above: Performed By: #### T 7, LIPA, TSH, AMADOU, CMP #### [facility] [address] [place] [address] Dr. Krystle Heaton EO # 0.2 103/ul Normal 0.0-0.7 [facility] Comment on above: Performed By: #### T 7, LIPA, TSH, AMADOU, CMP #### [facility] [address] [place] [address] Dr. Krystle Heaton Eosinophils/100 WBC (Bld) 3.9 % Normal 0.9-7.0 [facility] Comment on above: Performed By: #### T 7, LIPA, TSH, AMADOU, CMP #### [facility] [address] [place] [address] Dr. Krystle Heaton Erythrocyte distribution width (RBC) [Ratio] 13.0 % Normal 11.0-15.0 [facility] Comment on above: Performed By: #### T 7, LIPA, TSH, AMADOU, CMP #### [facility] [address] [place] [address] Dr. Krystle Heaton Hematocrit (Bld) [Volume fraction] 39.0 % Critically low 42.0-54.0 [facility] Comment on above: Performed By: #### T 7, LIPA, TSH, AMADOU, CMP #### [facility] [address] [place] [address] Dr. Krystle Heaton Hemoglobin (Bld) [Mass/Vol] 12.4 g/dL Critically low 14.0-18.0 [facility] Comment on above: Performed By: #### T 7, LIPA, TSH, AMADOU, CMP #### [facility] [address] [place] [address] Dr. Krystle Heaton IG # 0.01 10e3/ul Normal 0.00-0.03 [facility] Comment on above: Performed By: #### T 7, LIPA, TSH, AMADOU, CMP #### [facility] [address] [place] [address] Dr. Krystle Heaton IG % 0.2 % Normal 0.0-0.5 [facility] Comment on above: Performed By: #### T 7, LIPA, TSH, AMADOU, CMP #### [facility] [address] [place] [address] Dr. Krystle Heaton LYMPH # 1.0 103/ul Critically low 1.2-3.8 [facility] Comment on above: Performed By: #### T 7, LIPA, TSH, AMADOU, CMP #### [facility] [address] [place] [address] Dr. Krystle Heaton Lymphocytes/100 WBC (Bld) 23.1 % Normal 20.5-60.0 [facility] Comment on above: Performed By: #### T 7, LIPA, TSH, AMADOU, CMP #### [facility] [address] [place] [address] Dr. Krystle Heaton MANUAL DIFF REQ NO Normal [facility] Comment on above: Performed By: #### T 7, LIPA, TSH, AMADOU, CMP #### [facility] [address] [place] [address] Dr. Krystle Heaton MCH (RBC) [Entitic mass] 31.2 pg Normal 25.9-34.0 [facility] Comment on above: Performed By: #### T 7, LIPA, TSH, AMADOU, CMP #### [facility] [address] [place] [address] Dr. Krystle Heaton MCHC (RBC) [Mass/Vol] 31.8 g/dL Normal 29.9-35.2 [facility] Comment on above: Performed By: #### T 7, LIPA, TSH, AMADOU, CMP #### [facility] [address] [place] [address] Dr. Krystle Heaton MCV (RBC) [Entitic vol] 98.2 fL Critically high 80.0-94.0 [facility] Comment on above: Performed By: #### T 7, LIPA, TSH, AMADOU, CMP #### [facility] [address] [place] [address] Dr. Krystle Heaton MONO # 0.5 103/ul Normal 0.3-0.8 [facility] Comment on above: Performed By: #### T 7, LIPA, TSH, AMADOU, CMP #### [facility] [address] [place] [address] Dr. Krystle Heaton Monocytes/100 WBC (Bld) 10.4 % Normal 1.7-12.0 [facility] Comment on above: Performed By: #### T 7, LIPA, TSH, AMADOU, CMP #### [facility] [address] [place] [address] Dr. Krystle Heaton NEUT # 2.7 103/ul Normal 1.4-6.5 [facility] Comment on above: Performed By: #### T 7, LIPA, TSH, AMADOU, CMP #### [facility] [address] [place] [address] Dr. Krystle Heaton Neutrophils/100 WBC (Bld) 61.7 % Normal 43.0-75.0 [facility] Comment on above: Performed By: #### T 7, LIPA, TSH, AMADOU, CMP #### [facility] [address] [place] [address] Dr. Krystle Heaton Platelet mean volume (Bld) [Entitic vol] 10.8 fL Normal 9.5-13.5 [facility] Comment on above: Performed By: #### T 7, LIPA, TSH, AMADOU, CMP #### [facility] [address] [place] [address] Dr. Krystle Heaton PLT 197 103/ul Normal 150-450 [facility] Comment on above: Performed By: #### T 7, LIPA, TSH, AMADOU, CMP #### [facility] [address] [place] [address] Dr. Krystle Heaton RBC 3.97 106/ul Critically low 4.70-6.10 [facility] Comment on above: Performed By: #### T 7, LIPA, TSH, AMADOU, CMP #### [facility] [address] [place] [address] Dr. Krystle Heaton WBC 4.3 103/ul Normal 4.0-11.0 [facility] Comment on above: Performed By: #### T 7, LIPA, TSH, AMADOU, CMP #### [facility] [address] [place] [address] Dr. Krystle Heaton FERRITINon 06-11-2021 Ferritin [Mass/Vol] 107.0 ng/mL Normal 17.9-464.0 [facility] Comment on above: Performed By: #### T 7, LIPA, TSH, AMADOU, CMP #### [facility] [address] [place] [address] Dr. Krystle Heaton CBC AUTO DIFFon 05-28-2021 BASO # 0.0 103/ul Normal 0.0-0.1 [facility] Comment on above: Performed By: #### T 7, LIPA, TSH, AMADOU, CMP #### [facility] [address] [place] [address] Dr. Krystle Heaton Basophils/100 WBC (Bld) 0.5 % Normal 0.2-2.0 [facility] Comment on above: Performed By: #### T 7, LIPA, TSH, AMADOU, CMP #### [facility] [address] [place] [address] Dr. Krystle Heaton EO # 0.1 103/ul Normal 0.0-0.7 [facility] Comment on above: Performed By: #### T 7, LIPA, TSH, AMADOU, CMP #### [facility] [address] [place] [address] Dr. Krystle Heaton Eosinophils/100 WBC (Bld) 3.5 % Normal 0.9-7.0 [facility] Comment on above: Performed By: #### T 7, LIPA, TSH, AMADOU, CMP #### [facility] [address] [place] [address] Dr. Krystle Heaton Erythrocyte distribution width (RBC) [Ratio] 12.6 % Normal 11.0-15.0 [facility] Comment on above: Performed By: #### T 7, LIPA, TSH, AMADOU, CMP #### [facility] [address] [place] [address] Dr. Krystle Heaton Hematocrit (Bld) [Volume fraction] 39.8 % Critically low 42.0-54.0 [facility] Comment on above: Performed By: #### T 7, LIPA, TSH, AMADOU, CMP #### [facility] [address] [place] [address] Dr. Krystle Heaton Hemoglobin (Bld) [Mass/Vol] 12.5 g/dL Critically low 14.0-18.0 [facility] Comment on above: Performed By: #### T 7, LIPA, TSH, AMADOU, CMP #### [facility] [address] [place] [address] Dr. Krystle Heaton IG # 0.00 10e3/ul Normal 0.00-0.03 [facility] Comment on above: Performed By: #### T 7, LIPA, TSH, AMADOU, CMP #### [facility] [address] [place] [address] Dr. Krystle Heaton IG % 0.0 % Normal 0.0-0.5 [facility] Comment on above: Performed By: #### T 7, LIPA, TSH, AMADOU, CMP #### [facility] [address] [place] [address] Dr. Krystle Heaton LYMPH # 1.2 103/ul Normal 1.2-3.8 [facility] Comment on above: Performed By: #### T 7, LIPA, TSH, AMADOU, CMP #### [facility] [address] [place] [address] Dr. Krystle Heaton Lymphocytes/100 WBC (Bld) 32.7 % Normal 20.5-60.0 [facility] Comment on above: Performed By: #### T 7, LIPA, TSH, AMADOU, CMP #### [facility] [address] [place] [address] Dr. Krystle Heaton MANUAL DIFF REQ NO Normal [facility] Comment on above: Performed By: #### T 7, LIPA, TSH, AMADOU, CMP #### [facility] [address] [place] [address] Dr. Krystle Heaton MCH (RBC) [Entitic mass] 32.1 pg Normal 25.9-34.0 [facility] Comment on above: Performed By: #### T 7, LIPA, TSH, AMADOU, CMP #### [facility] [address] [place] [address] Dr. Krystle Heaton MCHC (RBC) [Mass/Vol] 31.4 g/dL Normal 29.9-35.2 [facility] Comment on above: Performed By: #### T 7, LIPA, TSH, AMADOU, CMP #### [facility] [address] [place] [address] Dr. Krystle Heaton MCV (RBC) [Entitic vol] 102.3 fL Critically high 80.0-94.0 [facility] Comment on above: Performed By: #### T 7, LIPA, TSH, AMADOU, CMP #### [facility] [address] [place] [address] Dr. Krystle Heaton MONO # 0.4 103/ul Normal 0.3-0.8 [facility] Comment on above: Performed By: #### T 7, LIPA, TSH, AMADOU, CMP #### [facility] [address] [place] [address] Dr. Krystle Heaton Monocytes/100 WBC (Bld) 10.5 % Normal 1.7-12.0 [facility] Comment on above: Performed By: #### T 7, LIPA, TSH, AMADOU, CMP #### [facility] [address] [place] [address] Dr. Krystle Heaton NEUT # 2.0 103/ul Normal 1.4-6.5 [facility] Comment on above: Performed By: #### T 7, LIPA, TSH, AMADOU, CMP #### [facility] [address] [place] [address] Dr. Krystle Heaton Neutrophils/100 WBC (Bld) 52.8 % Normal 43.0-75.0 [facility] Comment on above: Performed By: #### T 7, LIPA, TSH, AMADOU, CMP #### [facility] [address] [place] [address] Dr. Krystle Heaton Platelet mean volume (Bld) [Entitic vol] 10.7 fL Normal 9.5-13.5 [facility] Comment on above: Performed By: #### T 7, LIPA, TSH, AMADOU, CMP #### [facility] [address] [address] [address] Krystle Heaton PLT 227 103/ul Normal 150-450 [facility] Comment on above: Performed By: #### T 7, LIPA, TSH, AMADOU, CMP #### [facility] [address] [address] [address] Krystle Heaton RBC 3.89 106/ul Critically low 4.70-6.10 [facility] Comment on above: Performed By: #### T 7, LIPA, TSH, AMADOU, CMP #### [facility] [address] [address] [address] Krystle Heaton WBC 3.7 103/ul Critically low 4.0-11.0 [facility] Comment on above: Performed By: #### T 7, LIPA, TSH, AMADOU, CMP #### [facility] [address] [address] [address] Krystle Heaton FERRITINon 05-28-2021 Ferritin [Mass/Vol] 169.0 ng/mL Normal 17.9-464.0 [facility] Comment on above: Performed By: #### F ERR #### [facility] [address] [address] [address] Krystle Heaton METHYLMALONIC ACID (MMA)on 0 05-18-2021 Disclaimer: Comment Normal [facility] Comment on above: Result Comment: This test was developed and its performance characteristics determined by [facility]. It has not been cleared or approved by the Food and Drug Administration. Performed By: #### T 7, LIPA, TSH, AMADOU, CMP #### [facility] [address] [address] [address] Krystle Heaton Methylmalonic Acid, Serum 124 nmol/L Normal 0-378 [facility] Comment on above: Performed By: #### T 7, LIPA, TSH, AMADOU, CMP #### [facility] [address] [address] [address] Krystle Heaton HOMOCYSTEINEon 05-16-2021 Homocyst(e)ine, Plasma 19.5 umol/L Critically high 0.0-14.5 [facility] Comment on above: Performed By: #### T 7, LIPA, TSH, AMADOU, CMP #### [facility] [address] [place] [address] Dr. Krystle Heaton CBC AUTO DIFFon 05-15-2021 BASO # 0.0 103/ul Normal 0.0-0.1 [facility] Comment on above: Performed By: #### T 7, LIPA, TSH, AMADOU, CMP #### [facility] [address] [place] [address] Dr. Krystle Heaton Basophils/100 WBC (Bld) 0.5 % Normal 0.2-2.0 [facility] Comment on above: Performed By: #### T 7, LIPA, TSH, AMADOU, CMP #### [facility] [address] [place] [address] Dr. Krystle Heaton EO # 0.1 103/ul Normal 0.0-0.7 [facility] Comment on above: Performed By: #### T 7, LIPA, TSH, AMADOU, CMP #### [facility] [address] [place] [address] Dr. Krystle Heaton Eosinophils/100 WBC (Bld) 1.8 % Normal 0.9-7.0 [facility] Comment on above: Performed By: #### T 7, LIPA, TSH, AMADOU, CMP #### [facility] [address] [place] [address] Dr. Krystle Heaton Erythrocyte distribution width (RBC) [Ratio] 12.7 % Normal 11.0-15.0 [facility] Comment on above: Performed By: #### T 7, LIPA, TSH, AMADOU, CMP #### [facility] [address] [place] [address] Dr. Krystle Heaton Hematocrit (Bld) [Volume fraction] 39.4 % Critically low 42.0-54.0 [facility] Comment on above: Performed By: #### T 7, LIPA, TSH, AMADOU, CMP #### [facility] [address] [place] [address] Dr. Krystle Heaton Hemoglobin (Bld) [Mass/Vol] 12.9 g/dL Critically low 14.0-18.0 [facility] Comment on above: Performed By: #### T 7, LIPA, TSH, AMADOU, CMP #### [facility] [address] [place] [address] Dr. Krystle Heaton IG # 0.02 10e3/ul Normal 0.00-0.03 [facility] Comment on above: Performed By: #### T 7, LIPA, TSH, AMADOU, CMP #### [facility] [address] [place] [address] Dr. Krystle Heaton IG % 0.4 % Normal 0.0-0.5 [facility] Comment on above: Performed By: #### T 7, LIPA, TSH, AMADOU, CMP #### [facility] [address] [place] [address] Dr. Krystle Heaton LYMPH # 1.4 103/ul Normal 1.2-3.8 [facility] Comment on above: Performed By: #### T 7, LIPA, TSH, AMADOU, CMP #### [facility] [address] [place] [address] Dr. Krystle Heaton Lymphocytes/100 WBC (Bld) 24.9 % Normal 20.5-60.0 [facility] Comment on above: Performed By: #### T 7, LIPA, TSH, AMADOU, CMP #### [facility] [address] [place] [address] Dr. Krystle Heaton MANUAL DIFF REQ NO Normal [facility] Comment on above: Performed By: #### T 7, LIPA, TSH, AMADOU, CMP #### [facility] [address] [place] [address] Dr. Krystle Heaton MCH (RBC) [Entitic mass] 34.0 pg Normal 25.9-34.0 [facility] Comment on above: Performed By: #### T 7, LIPA, TSH, AMADOU, CMP #### [facility] [address] [place] [address] Dr. Krystle Heaton MCHC (RBC) [Mass/Vol] 32.7 g/dL Normal 29.9-35.2 [facility] Comment on above: Performed By: #### T 7, LIPA, TSH, AMADOU, CMP #### [facility] [address] [place] [address] Dr. Krystle Heaton MCV (RBC) [Entitic vol] 104.0 fL Critically high 80.0-94.0 [facility] Comment on above: Performed By: #### T 7, LIPA, TSH, AMADOU, CMP #### [facility] [address] [place] [address] Dr. Krystle Heaton MONO # 0.7 103/ul Normal 0.3-0.8 [facility] Comment on above: Performed By: #### T 7, LIPA, TSH, AMADOU, CMP #### [facility] [address] [place] [address] Dr. Krystle Heaton Monocytes/100 WBC (Bld) 11.8 % Normal 1.7-12.0 [facility] Comment on above: Performed By: #### T 7, LIPA, TSH, AMADOU, CMP #### [facility] [address] [place] [address] Dr. Krystle Heaton NEUT # 3.3 103/ul Normal 1.4-6.5 [facility] Comment on above: Performed By: #### T 7, LIPA, TSH, AMADOU, CMP #### [facility] [address] [place] [address] Dr. Krystle Heaton Neutrophils/100 WBC (Bld) 60.6 % Normal 43.0-75.0 [facility] Comment on above: Performed By: #### T 7, LIPA, TSH, AMADOU, CMP #### [facility] [address] [place] [address] Dr. Krystle Heaton Platelet mean volume (Bld) [Entitic vol] 10.2 fL Normal 9.5-13.5 [facility] Comment on above: Performed By: #### T 7, LIPA, TSH, AMADOU, CMP #### [facility] [address] [place] [address] Dr. Krystle Heaton PLT 196 103/ul Normal 150-450 [facility] Comment on above: Performed By: #### T 7, LIPA, TSH, AMADOU, CMP #### [facility] [address] [place] [address] Dr. Krystle Heaton RBC 3.79 106/ul Critically low 4.70-6.10 [facility] Comment on above: Performed By: #### T 7, LIPA, TSH, AMADOU, CMP #### [facility] [address] [place] [address] Dr. Krytsle Heaton WBC 5.5 103/ul Normal 4.0-11.0 [facility] Comment on above: Performed By: #### T 7, LIPA, TSH, AMADOU, CMP #### [facility] [address] [place] [address] Dr. Krystle Heaton FERRITINon 05-15-2021 Ferritin [Mass/Vol] 302.0 ng/mL Normal 17.9-464.0 [facility] Comment on above: Performed By: #### C BC #### [facility] [address] [place] [address] Billy Devlin PROF 14(COMP METB)on 021 Albumin [Mass/Vol] 3.5 g/dL Normal 3.5-5.0 [facility] Comment on above: Performed By: #### C BC #### [facility] [address] [place], [place] [id number] Billy Devlin Albumin/Globulin [Mass ratio] 1.0 {ratio} Normal [facility] Comment on above: Performed By: #### C BC #### [facility] [address] [place] [address] Billy Quita ALP [Catalytic activity/Vol] 71 U/L Normal 38-126 [facility] Comment on above: Performed By: #### C BC #### [facility] [address] [place], [place] [id number] Billy Devlin ALT [Catalytic activity/Vol] 40 U/L Normal 21-72 [facility] Comment on above: Performed By: #### C BC #### [facility] [address] [place] [address] Billy Devlin Anion gap [Moles/Vol] 17.5 mmol/L Normal [facility] Comment on above: Performed By: #### C BC #### [facility] [address] [id number] Billy Quita AST [Catalytic activity/Vol] 43 U/L Normal 17-59 [facility] Comment on above: Performed By: #### C BC #### [facility] [address] [address] Billy Quita Bilirubin [Mass/Vol] 0.3 mg/dL Normal 0.2-1.3 [facility] Comment on above: Performed By: #### C BC #### [facility] [address] [address] Billy Quita Calcium [Mass/Vol] 8.8 mg/dL Normal 8.4-10.2 [facility] Comment on above: Performed By: #### C BC #### [facility] [address] [place] [address] Billy Quita Chloride [Moles/Vol] 101 mmol/L Normal 98-107 [facility] Comment on above: Performed By: #### C BC #### [facility] [address] [place], [place] [id number] Billy Quita CO2 [Moles/Vol] 26.6 mmol/L Normal 22.0-30.0 [facility] Comment on above: Performed By: #### C BC #### [facility] [address] [place], [place] [id number] Billy Quita Creatinine [Mass/Vol] 0.88 mg/dL Normal 0.66-1.25 [facility] Comment on above: Performed By: #### C BC #### [facility] [address] [address] Billy Quita EGFR-AF GABONESE >60 Normal >=[address] [facility] Comment on above: Performed By: #### C BC #### [facility] [address] [place], [place] [address] Billy Quita EGFR-NON AF GABONESE >60 Normal >=60 [facility] Comment on above: Performed By: #### C BC #### [facility] [address] [place], [place] [address] Billy Quita Globulin (S) [Mass/Vol] 3.6 g/dL Normal [facility] Comment on above: Performed By: #### C BC #### [facility] [address] [place], [place] [address] Billy Quita Glucose [Mass/Vol] 101 mg/dL Normal 74-106 [facility] Comment on above: Performed By: #### C BC #### [facility] [address] [place], [place] [address] Billy Quita Potassium [Moles/Vol] 4.1 mmol/L Normal 3.4-5.0 [facility] Comment on above: Performed By: #### C BC #### [facility] [address] [place], [place] [address] Billy Quita Protein [Mass/Vol] 7.1 g/dL Normal 6.1-8.2 [facility] Comment on above: Performed By: #### C BC #### [facility] [address] [address] Billy Quita Sodium [Moles/Vol] 141 mmol/L Normal 137-145 [facility] Comment on above: Performed By: #### C BC #### [facility] [address] [place], [place] [address] Billy Quita Urea nitrogen [Mass/Vol] 11.0 mg/dL Normal 9.0-20.0 [facility] Comment on above: Performed By: #### C BC #### [facility] [address] [place], [place] [address] Billy Quita Urea nitrogen/Creatinine [Mass ratio] 12.5 mg/mg Normal [facility] Comment on above: Performed By: #### C BC #### [facility] [address] [place], [place] [address] Billy Uqita IN BIOPSY LIVER PERCUTANEOUS NEEDLEon 05-08-2021 IN BIOPSY LIVER PERCUTANEOUS NEEDLE Patient Name: ANGIE FRITZ STUDY: IN BIOPSY LIVER PERCUTANEOUS NEEDLE; ; 05/08/2021 11:46 am INDICATION: None. COMPARISON: None. ACCESSION NUMBER(S): [id number] ORDERING CLINICIAN: ENOCH HERRMANN TECHNIQUE: CONSENT: The [...] and cap. Additionally, the performing physician and research assistant member used maximum barrier technique to include a [...] were made using an 18 gauge spring-loaded PlatformQ core biopsy needle. Good core samples were [...] above Electronically signed by: URI BACON MD [facility] Order Reconciliationon 05-08 Order Reconciliation Page [...] tab(s) orally 2 times a day Normal [facility] Surgical Pathology Depar tmenton 05-08-2021 [facility] Surgical Pathology Department Name ANGIE FRITZ Pathologist: SUSAN BLACK M.D., PhD. Date of Procedure: 05/08/2021 Date Received: 05/08/2021 Date Reported 05/11/2021 Submitting Physician: ENOCH HERRMANN MD Location: [facility] Copy To/Referring/Attending: URI BACON MD Other External [...] positive and negative controls which stained appropriately. [facility] Department of Pathology [address] [place] [address] Normal [facility] Comment on above: Performed By: #### U HCS #### [facility] Surgical Pathology Department [address] [place] [address] CBC AUTO DIFFon 05-04-2021 BASO # 0.0 103/ul Normal 0.0-0.1 [facility] Comment on above: Performed By: #### F ERR #### [facility] [address] [address] [address] Krystle Heaton Basophils/100 WBC (Bld) 0.5 % Normal 0.2-2.0 [facility] Comment on above: Performed By: #### F ERR #### [facility] [address] [address] [address] Krystle Heaton EO # 0.1 103/ul Normal 0.0-0.7 [facility] Comment on above: Performed By: #### F ERR #### [facility] [address] [place] [address] Dr. Krystle Heaton Eosinophils/100 WBC (Bld) 2.5 % Normal 0.9-7.0 [facility] Comment on above: Performed By: #### F ERR #### [facility] [address] [place] [address] Dr. Krystle Heaton Erythrocyte distribution width (RBC) [Ratio] 12.5 % Normal 11.0-15.0 [facility] Comment on above: Performed By: #### F ERR #### [facility] [address] [place] [address] Dr. Krystle Heaton Hematocrit (Bld) [Volume fraction] 34.3 % Critically low 42.0-54.0 [facility] Comment on above: Performed By: #### F ERR #### [facility] [address] [place] [address] Dr. Krystle Heaton Hemoglobin (Bld) [Mass/Vol] 11.2 g/dL Critically low 14.0-18.0 [facility] Comment on above: Performed By: #### F ERR #### [facility] [address] [place] [address] Dr. Krystle Heaton IG # 0.01 10e3/ul Normal 0.00-0.03 [facility] Comment on above: Performed By: #### F ERR #### [facility] [address] [place] [address] Dr. Krystle Heaton IG % 0.3 % Normal 0.0-0.5 [facility] Comment on above: Performed By: #### F ERR #### [facility] [address] [place] [address] Dr. Krystle Heaton LYMPH # 1.3 103/ul Normal 1.2-3.8 [facility] Comment on above: Performed By: #### F ERR #### [facility] [address] [place] [address] Dr. Krystle Heaton Lymphocytes/100 WBC (Bld) 33.3 % Normal 20.5-60.0 [facility] Comment on above: Performed By: #### F ERR #### [facility] [address] [place] [address] Dr. Krystle Heaton MANUAL DIFF REQ NO Normal [facility] Comment on above: Performed By: #### F ERR #### [facility] [address] [place] [address] Dr. Krystle Heaton MCH (RBC) [Entitic mass] 35.6 pg Critically high 25.9-34.0 [facility] Comment on above: Performed By: #### F ERR #### [facility] [address] [place] [address] Dr. Krystle Heaton MCHC (RBC) [Mass/Vol] 32.7 g/dL Normal 29.9-35.2 [facility] Comment on above: Performed By: #### F ERR #### [facility] [address] [place] [address] Dr. Krystle Heaton MCV (RBC) [Entitic vol] 108.9 fL Critically high 80.0-94.0 [facility] Comment on above: Performed By: #### F ERR #### [facility] [address] [place] [address] Dr. Krystle Heaton MONO # 0.4 103/ul Normal 0.3-0.8 [facility] Comment on above: Performed By: #### F ERR #### [facility] [address] [place] [address] Dr. Krystle Heaton Monocytes/100 WBC (Bld) 10.0 % Normal 1.7-12.0 [facility] Comment on above: Performed By: #### F ERR #### [facility] [address] [place] [address] Dr. Krystle Heaton NEUT # 2.1 103/ul Normal 1.4-6.5 [facility] Comment on above: Performed By: #### F ERR #### [facility] [address] [place] [address] Dr. Krystle Heaton Neutrophils/100 WBC (Bld) 53.4 % Normal 43.0-75.0 [facility] Comment on above: Performed By: #### F ERR #### [facility] [address] [place] [address] Dr. Krystle Heaton Platelet mean volume (Bld) [Entitic vol] 10.7 fL Normal 9.5-13.5 [facility] Comment on above: Performed By: #### F ERR #### [facility] [address] [place] [address] Dr. Krystle Heaton PLT 174 103/ul Normal 150-450 [facility] Comment on above: Performed By: #### F ERR #### [facility] [address] [place] [address] Dr. Krystle Heaton RBC 3.15 106/ul Critically low 4.70-6.10 [facility] Comment on above: Result Comment: SLID E REVIEWED. 2+ MACROCYTOSIS SEEN Performed By: #### F ERR #### [facility] [address] [place] [address] Dr. Krystle Heaton WBC 4.0 103/ul Normal 4.0-11.0 [facility] Comment on above: Performed By: #### F ERR #### [facility] [address] [place] [address] Dr. Krystle Heaton FERRITINon 05-04-2021 Ferritin [Mass/Vol] 417.0 ng/mL Normal 17.9-464.0 [facility] Comment on above: Performed By: #### T 7, LIPA, TSH, AMADOU, CMP #### [facility] [address] [place] [address] Dr. Krystle Heaton AFP (TUMOR MARKER)on 021 AFP, Serum, Tumor Marker 5.2 ng/mL Normal 0.0-8.3 [facility] Comment on above: Result Comment: [employer] Electrochemiluminescence Immunoassay (ECLIA) . Values obtained with different assay methods or kits cannot be used interchangeably. Results cannot be interpreted as absolute evidence of the presence or absence of malignant disease. . This test is not interpretable in females. Performed By: #### T 7, LIPA, TSH, AMADOU, CMP #### [facility] [address] [place] [address] Dr. Krystle Heaton [id number] 2020 [id number] , Serum 132 mg/dL Normal 101-187 [facility] Comment on above: Performed By: #### H BSANS #### [facility] [address] [address] Billy Devlin NE by IFAon 05-02-2021 Antinuclear Antibodies, IFA Negative Normal [facility] Comment on above: Result Comment: Nega tive <1:80 Borderline 1:80 Positive >1:80 Performed By: #### A NAIFA #### [facility] [address] [place] [address] Billy Devlin CERULOPLASMINon 05-02-2021 Ceruloplasmin 27.8 mg/dL Normal 16.0-31.0 [facility] Comment on above: Performed By: #### C BC #### [facility] [address] [place] [address] Billy Devlin HEP A AB TOTALon 05-02-2021 Hep A Ab, Total Negative Normal Negative [facility] Comment on above: Performed By: #### H BSANS #### [facility] [address] [place] [address] Billy Devlin HEP B COREon 05-02-2021 Hep B Core Ab, Tot Negative Normal Negative [facility] Comment on above: Performed By: #### T 7, LIPA, TSH, AMADOU, CMP #### [facility] [address] [id number] Krystle Heaton HEP B SURFACE ANTIGEN SCREEN on 05-02-2021 HBsAg Screen Negative Normal Negative [facility] Comment on above: Performed By: #### H BSANS #### [facility] [address] [place] [address] Billy Devlin HEPATITIS B SURFACE ANTIBODY , QUANTon 05-02-2021 Hepatitis B Surf AB Quant <3.1 Critically low Immunity>9. 9 [facility] Comment on above: Result Comment: Stat us of Immunity Anti-HBs Level Inconsistent with Immunity 0.0 - 9.9 Consistent with Immunity >9.9 Performed By: #### H BSANS #### [facility] [address] [place] [address] Billy Devlin HEPATITIS C ANTIBODYon 05-02 Hep C Virus Ab <0.1 Normal 0.0-0.9 [facility] Comment on above: Result Comment: Nega tive: < 0.8 Indeterminate: 0.8 - 0.9 Positive: > 0.9 . The CDC recommends that a positive HCV antibody result be followed up with a HCV Nucleic Acid Amplification test (111044). Performed By: #### T 7, LA, SAVITA, AMADOU, CMP #### [facility] [address] [place] [address] Dr. Krystle Heaton MITICHONDRIAL (M2) ANTIBODYo n 05-02-2021 Mitochondrial (M2) Antibody <20.0 Normal 0.0-20.0 [facility] Comment on above: Result Comment: Nega tive 0.0 - 20.0 Equivocal 20.1 - 24.9 Positive >24.9 . Mitochondrial (M2) Antibodies are found in 90-96% of patients with primary biliary cirrhosis. Performed By: #### F ERR #### [facility] [address] [place] [address] Dr. Krystle Heaton CBC AUTO DIFFon 05-01-2021 BASO # 0.1 103/ul Normal 0.0-0.1 [facility] Comment on above: Performed By: #### C BC #### [facility] [address] [place] [address] Billy Devlin Basophils/100 WBC (Bld) 1.5 % Normal 0.2-2.0 [facility] Comment on above: Performed By: #### C BC #### [facility] [address] [place] [address] Billy Devlin EO # 0.1 103/ul Normal 0.0-0.7 [facility] Comment on above: Performed By: #### C BC #### [facility] [address] [place] [address] Billy Quita Eosinophils/100 WBC (Bld) 2.1 % Normal 0.9-7.0 [facility] Comment on above: Performed By: #### C BC #### [facility] [address] [place] [address] Billycarrillo Devlin Erythrocyte distribution width (RBC) [Ratio] 12.7 % Normal 11.0-15.0 [facility] Comment on above: Performed By: #### C BC #### [facility] [address] [place] [address] Billy Quita Hematocrit (Bld) [Volume fraction] 34.6 % Critically low 42.0-54.0 [facility] Comment on above: Performed By: #### C BC #### [facility] [address] [place] [address] Billy Quita Hemoglobin (Bld) [Mass/Vol] 11.2 g/dL Critically low 14.0-18.0 [facility] Comment on above: Performed By: #### C BC #### [facility] [address] [place] [address] Iblly Quita IG # 0.01 10e3/ul Normal 0.00-0.03 [facility] Comment on above: Performed By: #### C BC #### [facility] [address] [place] [address] Billy Quita IG % 0.3 % Normal 0.0-0.5 [facility] Comment on above: Performed By: #### C BC #### [facility] [address] [place] [address] Billy Quita LYMPH # 1.0 103/ul Critically low 1.2-3.8 [facility] Comment on above: Performed By: #### C BC #### [facility] [address] [place] [address] Billy Quita Lymphocytes/100 WBC (Bld) 30.4 % Normal 20.5-60.0 [facility] Comment on above: Performed By: #### C BC #### [facility] [address] [place] [address] Billy Quita MANUAL DIFF REQ NO Normal [facility] Comment on above: Performed By: #### C BC #### [facility] [address] [place], [place] [id number] iBlly Devlin MCH (RBC) [Entitic mass] 35.8 pg Critically high 25.9-34.0 [facility] Comment on above: Performed By: #### C BC #### [facility] [address] [place], [place] [id number] Billy Devlin MCHC (RBC) [Mass/Vol] 32.4 g/dL Normal 29.9-35.2 [facility] Comment on above: Performed By: #### C BC #### [facility] [address] [place] [address] Billy Devlin MCV (RBC) [Entitic vol] 110.5 fL Critically high 80.0-94.0 [facility] Comment on above: Performed By: #### C BC #### [facility] [address] [place] [address] Billy Devlin MONO # 0.4 103/ul Normal 0.3-0.8 [facility] Comment on above: Performed By: #### C BC #### [facility] [address] [place] [address] Billy Deanen Monocytes/100 WBC (Bld) 11.3 % Normal 1.7-12.0 [facility] Comment on above: Performed By: #### C BC #### [facility] [address] [place], [place] [id number] Billy Devlin NEUT # 1.8 103/ul Normal 1.4-6.5 [facility] Comment on above: Performed By: #### C BC #### [facility] [address] [place], [place] [id number] Billy Quita Neutrophils/100 WBC (Bld) 54.4 % Normal 43.0-75.0 [facility] Comment on above: Performed By: #### C BC #### [facility] [address] [place], [place] [id number] Billy Quita Platelet mean volume (Bld) [Entitic vol] 11.3 fL Normal 9.5-13.5 [facility] Comment on above: Performed By: #### C BC #### [facility] [address] [place], [place] [address] Billy Quita PLT 142 103/ul Critically low 150-450 [facility] Comment on above: Performed By: #### C BC #### [facility] [address] [place], [place] [address] Billy Quita RBC 3.13 106/ul Critically low 4.70-6.10 [facility] Comment on above: Performed By: #### C BC #### [facility] [address] [place], [place] [address] Billy Quita WBC 3.4 103/ul Critically low 4.0-11.0 [facility] Comment on above: Performed By: #### C BC #### [facility] [address] [place], [place] [address] Billy Quita LIVER PROFILEon 05-01-2021 Albumin/Globulin [Mass ratio] 1.0 {ratio} Normal [facility] Comment on above: Performed By: #### H BSANS #### [facility] [address] [place], [place] [address] Billy Quita ALP [Catalytic activity/Vol] 67 U/L Normal 38-126 [facility] Comment on above: Performed By: #### H BSANS #### [facility] [address] [id number] Billy Quita ALT [Catalytic activity/Vol] 52 U/L Normal 21-72 [facility] Comment on above: Performed By: #### H BSANS #### [facility] [address] [place], [place] [address] Billy Quita AST [Catalytic activity/Vol] 51 U/L Normal 17-59 [facility] Comment on above: Performed By: #### H BSANS #### [facility] [address] [place], [place] [address] Billy Quita BILI, CONJUGATED 0.2 mg/dL Normal 0.0-0.[address] [facility] Comment on above: Performed By: #### H BSANS #### [facility] [address] [id number] Billy Quita Bilirubin [Mass/Vol] 0.5 mg/dL Normal 0.2-1.3 [facility] Comment on above: Performed By: #### H BSANS #### [facility] [address] [id number] Billy Quita Globulin (S) [Mass/Vol] 3.4 g/dL Normal [facility] Comment on above: Performed By: #### H BSANS #### [facility] [address] [place] [address] Billy Quita Protein [Mass/Vol] 6.9 g/dL Normal 6.1-8.2 [facility] Comment on above: Performed By: #### H BSANS #### [facility] [address] [place], [place] [phone] Billy Quita PROTIMEon 05-01-2021 INR Coag (PPP) [Relative time] 0.95 {INR} Normal [facility] Comment on above: Performed By: #### C BC #### [facility] [address] [place], [place] [phone] Billy Quita INR GUIDELINES SEE BELOW Normal [facility] Comment on above: Result Comment: MOUNA RED INR: 2.0 - 3.0 CONDITIONS NOT LISTED BELOW 2.5 - 3.5 FOR PROSTHETIC HEART VALVE REPLACEMENT 2.5 - 3.5 RECURRENT THROMBOSIS Performed By: #### C BC #### [facility] [address] [place], [place] [phone] Billy Quita PT Coag (PPP) [Time] 10.4 s Normal 9.0-11.6 [facility] Comment on above: Performed By: #### C BC #### [facility] [address] [place], [place] [phone] Billy Quita RENAL FUNCTION PANELon 05-01 Albumin [Mass/Vol] 3.5 g/dL Normal 3.5-5.0 [facility] Comment on above: Performed By: #### H BSANS #### [facility] [address] [place], [place] [id number] Billy Quita Calcium [Mass/Vol] 8.7 mg/dL Normal 8.4-10.2 [facility] Comment on above: Performed By: #### H BSANS #### [facility] [address] [place] [address] Billy Quita Chloride [Moles/Vol] 104 mmol/L Normal 98-107 [facility] Comment on above: Performed By: #### H BSANS #### [facility] [address] [place] [address] Billy Quita CO2 [Moles/Vol] 25.7 mmol/L Normal 22.0-30.[address] [facility] Comment on above: Performed By: #### H BSANS #### [facility] [address] [place] [address] Billy Quita Creatinine [Mass/Vol] 1.01 mg/dL Normal 0.66-1.25 [facility] Comment on above: Performed By: #### H BSANS #### [facility] [address] [place] [address] Billy Quita EGFR-AF GABONESE >60 Normal >=[address] [facility] Comment on above: Performed By: #### H BSANS #### [facility] [address] [place] [address] Billy Quita EGFR-NON AF GABONESE >60 Normal >=60 [facility] Comment on above: Performed By: #### H BSANS #### [facility] [address] [place] [address] Billy Quita Glucose [Mass/Vol] 103 mg/dL Normal 74-106 [facility] Comment on above: Performed By: #### H BSANS #### [facility] [address] [place] [address] Billy Quita Phosphate [Mass/Vol] 3.6 mg/dL Normal 2.5-4.5 [facility] Comment on above: Performed By: #### H BSANS #### [facility] [address] [place] [address] Billy Quita Potassium [Moles/Vol] 4.2 mmol/L Normal 3.4-5.0 [facility] Comment on above: Performed By: #### H BSANS #### [facility] [address] [place] [address] Billy Devlin Sodium [Moles/Vol] 138 mmol/L Normal 137-145 [facility] Comment on above: Performed By: #### H BSANS #### [facility] [address] [place] [address] Billy Devlin Urea nitrogen [Mass/Vol] 7.0 mg/dL Critically low 9.0-20.0 [facility] Comment on above: Performed By: #### H BSANS #### [facility] [address] [place] [address] Billy Devlin CBC AUTO DIFFon 04-27-2021 BASO # 0.0 103/ul Normal 0.0-0.1 [facility] Comment on above: Performed By: #### T 7, LIPA, TSH, AMADOU, CMP #### [facility] [address] [place] [address] Dr. Krystle Heaton Basophils/100 WBC (Bld) 0.9 % Normal 0.2-2.0 [facility] Comment on above: Performed By: #### T 7, LIPA, TSH, AMADOU, CMP #### [facility] [address] [place] [address] Dr. Krystle Heaton EO # 0.1 103/ul Normal 0.0-0.7 [facility] Comment on above: Performed By: #### T 7, LIPA, TSH, AMADOU, CMP #### [facility] [address] [place] [address] Dr. Krystle Heaton Eosinophils/100 WBC (Bld) 2.6 % Normal 0.9-7.0 [facility] Comment on above: Performed By: #### T 7, LIPA, TSH, AMADOU, CMP #### [facility] [address] [place] [address] Dr. Krystle Heaton Erythrocyte distribution width (RBC) [Ratio] 12.4 % Normal 11.0-15.0 [facility] Comment on above: Performed By: #### T 7, LIPA, TSH, AMADOU, CMP #### [facility] [address] [place] [address] Dr. Krystle Heaton Hematocrit (Bld) [Volume fraction] 36.8 % Critically low 42.0-54.0 [facility] Comment on above: Performed By: #### T 7, LIPA, TSH, AMADOU, CMP #### [facility] [address] [place] [address] Dr. Krystle Heaton Hemoglobin (Bld) [Mass/Vol] 12.0 g/dL Critically low 14.0-18.0 [facility] Comment on above: Performed By: #### T 7, LIPA, TSH, AMADOU, CMP #### [facility] [address] [place] [address] Dr. Krystel Heaton IG # 0.02 10e3/ul Normal 0.00-0.03 [facility] Comment on above: Performed By: #### T 7, LIPA, TSH, AMADOU, CMP #### [facility] [address] [place] [address] Dr. Krystle Heaton IG % 0.4 % Normal 0.0-0.5 [facility] Comment on above: Performed By: #### T 7, LIPA, TSH, AMADOU, CMP #### [facility] [address] [place] [address] Dr. Krystle Heaton LYMPH # 1.2 103/ul Normal 1.2-3.8 [facility] Comment on above: Performed By: #### T 7, LIPA, TSH, AMADOU, CMP #### [facility] [address] [place] [address] Dr. Krystle Heaton Lymphocytes/100 WBC (Bld) 26.0 % Normal 20.5-60.0 [facility] Comment on above: Performed By: #### T 7, LIPA, TSH, AMADOU, CMP #### [facility] [address] [place] [address] Dr. Krystle Heaton MANUAL DIFF REQ NO Normal [facility] Comment on above: Performed By: #### T 7, LIPA, TSH, AMADOU, CMP #### [facility] [address] [place] [address] Dr. Krystle Heaton MCH (RBC) [Entitic mass] 36.4 pg Critically high 25.9-34.0 [facility] Comment on above: Performed By: #### T 7, LIPA, TSH, AMADOU, CMP #### [facility] [address] [place] [address] Dr. Krystle Heaton MCHC (RBC) [Mass/Vol] 32.6 g/dL Normal 29.9-35.2 [facility] Comment on above: Performed By: #### T 7, LIPA, TSH, AMADOU, CMP #### [facility] [address] [place] [address] Dr. Krystle Heaton MCV (RBC) [Entitic vol] 111.5 fL Critically high 80.0-94.0 [facility] Comment on above: Performed By: #### T 7, LIPA, TSH, AMADOU, CMP #### [facility] [address] [place] [address] Dr. Krystle Heaton MONO # 0.5 103/ul Normal 0.3-0.8 [facility] Comment on above: Performed By: #### T 7, LIPA, TSH, AMADOU, CMP #### [facility] [address] [place] [address] Dr. Krystle Heaton Monocytes/100 WBC (Bld) 10.1 % Normal 1.7-12.0 [facility] Comment on above: Performed By: #### T 7, LIPA, TSH, AMADOU, CMP #### [facility] [address] [place] [address] Dr. Krystle Heaton NEUT # 2.8 103/ul Normal 1.4-6.5 [facility] Comment on above: Performed By: #### T 7, LIPA, TSH, AMADOU, CMP #### [facility] [address] [place] [address] Dr. Krystle Heaton Neutrophils/100 WBC (Bld) 60.0 % Normal 43.0-75.0 [facility] Comment on above: Performed By: #### T 7, LIPA, TSH, AMADOU, CMP #### [facility] [address] [place] [address] Dr. Krystle Heaton Platelet mean volume (Bld) [Entitic vol] 11.0 fL Normal 9.5-13.5 [facility] Comment on above: Performed By: #### T 7, LIPA, TSH, AMADOU, CMP #### [facility] [address] [place] [address] Dr. Krystle Heaton PLT 140 103/ul Critically low 150-450 [facility] Comment on above: Performed By: #### T 7, LIPA, TSH, AMADOU, CMP #### [facility] [address] [place] [address] Dr. Krystle Heaton RBC 3.30 106/ul Critically low 4.70-6.10 [facility] Comment on above: Performed By: #### T 7, LIPA, TSH, AMADOU, CMP #### [facility] [address] [place] [address] Dr. Krystle Heaton WBC 4.7 103/ul Normal 4.0-11.0 [facility] Comment on above: Performed By: #### T 7, LIPA, TSH, AMADOU, CMP #### [facility] [address] [place] [address] Dr. Krystle Heaton FERRITINon 04-27-2021 Ferritin [Mass/Vol] 845.0 ng/mL Critically high 17.9-464.0 [facility] Comment on above: Performed By: #### F ERR #### [facility] [address] [place] [address] Dr. Krystle Heaton CBC AUTO DIFFon 04-18-2021 BASO # 0.1 103/ul Normal 0.0-0.1 [facility] Comment on above: Performed By: #### T 7, LIPA, TSH, AMADOU, CMP #### [facility] [address] [place] [address] Dr. Krystle Heaton Basophils/100 WBC (Bld) 1.1 % Normal 0.2-2.0 [facility] Comment on above: Performed By: #### T 7, LIPA, TSH, AMADOU, CMP #### [facility] [address] [place] [address] Dr. Krystle Heaton EO # 0.1 103/ul Normal 0.0-0.7 [facility] Comment on above: Performed By: #### T 7, LIPA, TSH, AMADOU, CMP #### [facility] [address] [place] [address] Dr. Krystle Heaton Eosinophils/100 WBC (Bld) 2.2 % Normal 0.9-7.0 [facility] Comment on above: Performed By: #### T 7, LIPA, TSH, AMADOU, CMP #### [facility] [address] [place] [address] Dr. Krystle Heaton Erythrocyte distribution width (RBC) [Ratio] 13.1 % Normal 11.0-15.0 [facility] Comment on above: Performed By: #### T 7, LIPA, TSH, AMADOU, CMP #### [facility] [address] [place] [address] Dr. Krystle Heaton Hematocrit (Bld) [Volume fraction] 35.2 % Critically low 42.0-54.0 [facility] Comment on above: Performed By: #### T 7, LIPA, TSH, AMADOU, CMP #### [facility] [address] [place] [address] Dr. Krystle Heaton Hemoglobin (Bld) [Mass/Vol] 11.8 g/dL Critically low 14.0-18.0 [facility] Comment on above: Performed By: #### T 7, LIPA, TSH, AMADOU, CMP #### [facility] [address] [place] [address] Dr. Krystle Heaton IG # 0.01 10e3/ul Normal 0.00-0.03 [facility] Comment on above: Performed By: #### T 7, LIPA, TSH, AMADOU, CMP #### [facility] [address] [place] [address] Dr. Krystle Heaton IG % 0.2 % Normal 0.0-0.5 [facility] Comment on above: Performed By: #### T 7, LIPA, TSH, AMADOU, CMP #### [facility] [address] [place] [address] Dr. Krystle Heaton LYMPH # 1.6 103/ul Normal 1.2-3.8 [facility] Comment on above: Performed By: #### T 7, LIPA, TSH, AMADOU, CMP #### [facility] [address] [place] [address] Dr. Krystle Heaton Lymphocytes/100 WBC (Bld) 35.1 % Normal 20.5-60.0 [facility] Comment on above: Performed By: #### T 7, LIPA, TSH, AMADOU, CMP #### [facility] [address] [place] [address] Dr. Krystle Heaton MANUAL DIFF REQ NO Normal [facility] Comment on above: Performed By: #### T 7, LIPA, TSH, AMADOU, CMP #### [facility] [address] [place] [address] Dr. Krystle Heaton MCH (RBC) [Entitic mass] 36.6 pg Critically high 25.9-34.0 [facility] Comment on above: Performed By: #### T 7, LIPA, TSH, AMADOU, CMP #### [facility] [address] [place] [address] Dr. Krystle Heaton MCHC (RBC) [Mass/Vol] 33.5 g/dL Normal 29.9-35.2 [facility] Comment on above: Performed By: #### T 7, LIPA, TSH, AMADOU, CMP #### [facility] [address] [place] [address] Dr. Krystle Heaton MCV (RBC) [Entitic vol] 109.3 fL Critically high 80.0-94.0 [facility] Comment on above: Performed By: #### T 7, LIPA, TSH, AMADOU, CMP #### [facility] [address] [place] [address] Dr. Krystle Heaton MONO # 0.5 103/ul Normal 0.3-0.8 [facility] Comment on above: Performed By: #### T 7, LIPA, TSH, AMADOU, CMP #### [facility] [address] [place] [address] Dr. Krystle Heaton Monocytes/100 WBC (Bld) 11.0 % Normal 1.7-12.0 [facility] Comment on above: Performed By: #### T 7, LIPA, TSH, AMADOU, CMP #### [facility] [address] [place] [address] Dr. Krystle Heaton NEUT # 2.2 103/ul Normal 1.4-6.5 [facility] Comment on above: Performed By: #### T 7, LIPA, TSH, AMADOU, CMP #### [facility] [address] [place] [address] Dr. Krystle Heaton Neutrophils/100 WBC (Bld) 50.4 % Normal 43.0-75.0 [facility] Comment on above: Performed By: #### T 7, LIPA, TSH, AMADOU, CMP #### [facility] [address] [place] [address] Dr. Krystle Heaton Platelet mean volume (Bld) [Entitic vol] 10.9 fL Normal 9.5-13.5 [facility] Comment on above: Performed By: #### T 7, LIPA, TSH, AMADOU, CMP #### [facility] [address] [place] [address] Dr. Krystle Heaton PLT 158 103/ul Normal 150-450 [facility] Comment on above: Performed By: #### T 7, LIPA, TSH, AMADOU, CMP #### [facility] [address] [place] [address] Dr. Krystle Heaton RBC 3.22 106/ul Critically low 4.70-6.10 [facility] Comment on above: Performed By: #### T 7, LIPA, TSH, AMADOU, CMP #### [facility] [address] [place] [address] Dr. Krystle Heaton WBC 4.5 103/ul Normal 4.0-11.0 [facility] Comment on above: Performed By: #### T 7, LIPA, TSH, AMADOU, CMP #### [facility] [address] [place] [address] Dr. Krystle Heaton FERRITINon 04-18-2021 Ferritin [Mass/Vol] ng/mL Critically high 17.9-464.0 [facility] Comment on above: Performed By: #### H BSANS #### [facility] [address] [place] [address] Billy Devlin CBC AUTO DIFFon 04-13-2021 BASO # 0.0 103/ul Normal 0.0-0.1 [facility] Comment on above: Performed By: #### T 7, LIPA, TSH, AMADOU, CMP #### [facility] [address] [place] [address] Dr. Krystle Heaton Basophils/100 WBC (Bld) 0.6 % Normal 0.2-2.0 [facility] Comment on above: Performed By: #### T 7, LIPA, TSH, AMADOU, CMP #### [facility] [address] [place] [address] Dr. Krystle Heaton EO # 0.1 103/ul Normal 0.0-0.7 [facility] Comment on above: Performed By: #### T 7, LIPA, TSH, AMADOU, CMP #### [facility] [address] [place] [address] Dr. Krystle Heaton Eosinophils/100 WBC (Bld) 3.2 % Normal 0.9-7.0 [facility] Comment on above: Performed By: #### T 7, LIPA, TSH, AMADOU, CMP #### [facility] [address] [place] [address] Dr. Krystle Heaton Erythrocyte distribution width (RBC) [Ratio] 13.6 % Normal 11.0-15.0 [facility] Comment on above: Performed By: #### T 7, LIPA, TSH, AMADOU, CMP #### [facility] [address] [place] [address] Dr. Krystle Heaton Hematocrit (Bld) [Volume fraction] 35.3 % Critically low 42.0-54.0 [facility] Comment on above: Performed By: #### T 7, LIPA, TSH, AMADOU, CMP #### [facility] [address] [place] [address] Dr. Krystle Heaton Hemoglobin (Bld) [Mass/Vol] 11.9 g/dL Critically low 14.0-18.0 [facility] Comment on above: Performed By: #### T 7, LIPA, TSH, AMADOU, CMP #### [facility] [address] [place] [address] Dr. Krystle Heaton IG # 0.01 10e3/ul Normal 0.00-0.03 [facility] Comment on above: Performed By: #### T 7, LIPA, TSH, AMADOU, CMP #### [facility] [address] [place] [address] Dr. Krystle Heaton IG % 0.3 % Normal 0.0-0.5 [facility] Comment on above: Performed By: #### T 7, LIPA, TSH, AMADOU, CMP #### [facility] [address] [place] [address] Dr. Krystle Heaton LYMPH # 1.1 103/ul Critically low 1.2-3.8 [facility] Comment on above: Performed By: #### T 7, LIPA, TSH, AMADOU, CMP #### [facility] [address] [place] [address] Dr. Krystle Heaton Lymphocytes/100 WBC (Bld) 35.1 % Normal 20.5-60.0 [facility] Comment on above: Performed By: #### T 7, LIPA, TSH, AMADOU, CMP #### [facility] [address] [place] [address] Dr. Krystle Heaton MANUAL DIFF REQ NO Normal [facility] Comment on above: Performed By: #### T 7, LIPA, TSH, AMADOU, CMP #### [facility] [address] [place] [address] Dr. Krystle Heaton MCH (RBC) [Entitic mass] 37.1 pg Critically high 25.9-34.0 [facility] Comment on above: Performed By: #### T 7, LIPA, TSH, AMADOU, CMP #### [facility] [address] [place] [address] Dr. Krystle Heaton MCHC (RBC) [Mass/Vol] 33.7 g/dL Normal 29.9-35.2 [facility] Comment on above: Performed By: #### T 7, LIPA, TSH, AMADOU, CMP #### [facility] [address] [place] [address] Dr. Krystle Heaton MCV (RBC) [Entitic vol] 110.0 fL Critically high 80.0-94.0 [facility] Comment on above: Result Comment: macr ocytosis 3+ Performed By: #### T 7, LIPA, TSH, AMADOU, CMP #### [facility] [address] [place] [address] Dr. Krystle Heaton MONO # 0.3 103/ul Normal 0.3-0.8 [facility] Comment on above: Performed By: #### T 7, LIPA, TSH, AMADOU, CMP #### [facility] [address] [place] [address] Dr. Krystle Heaton Monocytes/100 WBC (Bld) 10.7 % Normal 1.7-12.0 [facility] Comment on above: Performed By: #### T 7, LIPA, TSH, AMADOU, CMP #### [facility] [address] [place] [address] Dr. Krystle Heaton NEUT # 1.5 103/ul Normal 1.4-6.5 [facility] Comment on above: Performed By: #### T 7, LIPA, TSH, AMADOU, CMP #### [facility] [address] [place] [address] Dr. Krystle Heaton Neutrophils/100 WBC (Bld) 50.1 % Normal 43.0-75.0 [facility] Comment on above: Performed By: #### T 7, LIPA, TSH, AMADOU, CMP #### [facility] [address] [place] [address] Dr. Krystle Heaton Platelet mean volume (Bld) [Entitic vol] 10.8 fL Normal 9.5-13.5 [facility] Comment on above: Performed By: #### T 7, LIPA, TSH, AMADOU, CMP #### [facility] [address] [place] [address] Dr. Krystle Heaton PLT 131 103/ul Critically low 150-450 [facility] Comment on above: Performed By: #### T 7, LIPA, TSH, AMADOU, CMP #### [facility] [address] [address] [address] Krystle Heaton RBC 3.21 106/ul Critically low 4.70-6.10 [facility] Comment on above: Performed By: #### T 7, LIPA, TSH, AMADOU, CMP #### [facility] [address] [address] [address] Krystle Heaton WBC 3.1 103/ul Critically low 4.0-11.0 [facility] Comment on above: Performed By: #### T 7, LIPA, TSH, AMADOU, CMP #### [facility] [address] [address] [address] Krystle Heaton FERRITINon 04-13-2021 Ferritin [Mass/Vol] ng/mL Critically high 17.9-464.0 [facility] Comment on above: Performed By: #### F ERR #### [facility] [address] [address] [address] Krystle Heaton Initial Visit (Gastroenterol ogy)on [...] 05-28-2021 BASO # 0.0 103/ul Normal 0.0-0.1 [facility] Comment on above: Performed By: #### H ALEXANDER #### [facility] [address] [place] [address] Billy Quita Basophils/100 WBC (Bld) 0.9 % Normal 0.2-2.0 [facility] Comment on above: Performed By: #### H ALEXANDER #### [facility] [address] [place] [address] Billy Quita EO # 0.1 103/ul Normal 0.0-0.7 [facility] Comment on above: Performed By: #### H ALEXANDER #### [facility] [address] [place] [address] Billy Quita Eosinophils/100 WBC (Bld) 3.0 % Normal 0.9-7.0 [facility] Comment on above: Performed By: #### H ALEXANDER #### [facility] [address] [place] [address] Billy Quita Erythrocyte distribution width (RBC) [Ratio] 13.6 % Normal 11.0-15.0 [facility] Comment on above: Performed By: #### H ALEXANDER #### [facility] [address] [place] [address] Billy Quita Hematocrit (Bld) [Volume fraction] 39.1 % Critically low 42.0-54.0 [facility] Comment on above: Performed By: #### H ALEXANDER #### [facility] [address] [place] [address] Billy Quita Hemoglobin (Bld) [Mass/Vol] 13.1 g/dL Critically low 14.0-18.0 [facility] Comment on above: Performed By: #### H ALEXANDER #### [facility] [address] [place] [address] Billy Quita IG # 0.02 10e3/ul Normal 0.00-0.03 [facility] Comment on above: Performed By: #### H ALEXANDER #### [facility] [address] [place] [address] Billycarrillo Devlin IG % 0.5 % Normal 0.0-0.5 [facility] Comment on above: Performed By: #### H ALEXANDER #### [facility] [address] [place] [address] Billy Devlin LYMPH # 1.1 103/ul Critically low 1.2-3.8 [facility] Comment on above: Performed By: #### H ALEXANDER #### [facility] [address] [place] [address] Billy Quita Lymphocytes/100 WBC (Bld) 26.7 % Normal 20.5-60.0 [facility] Comment on above: Performed By: #### H ALEXANDER #### [facility] [address] [place] [address] Billy Devlin MANUAL DIFF REQ NO Normal [facility] Comment on above: Performed By: #### H ALEXANDER #### [facility] [address] [place] [address] Billy Quita MCH (RBC) [Entitic mass] 36.7 pg Critically high 25.9-34.0 [facility] Comment on above: Performed By: #### H ALEXANDER #### [facility] [address] [place] [address] Billy Deanen MCHC (RBC) [Mass/Vol] 33.5 g/dL Normal 29.9-35.2 [facility] Comment on above: Result Comment: macr ocytosis Performed By: #### H ALEXANDER #### [facility] [address] [place] [address] Billy Quita MCV (RBC) [Entitic vol] 109.5 fL Critically high 80.0-94.0 [facility] Comment on above: Performed By: #### H ALEXANDER #### [facility] [address] [place] [address] Billy Devlin MONO # 0.4 103/ul Normal 0.3-0.8 [facility] Comment on above: Performed By: #### H ALEXANDER #### [facility] [address] [place] [address] Billy Devlin Monocytes/100 WBC (Bld) 8.7 % Normal 1.7-12.0 [facility] Comment on above: Performed By: #### H ANJUMNS #### [facility] [address] [place] [address] Billy Devlin NEUT # 2.6 103/ul Normal 1.4-6.5 [facility] Comment on above: Performed By: #### H BSANS #### [facility] [address] [place] [address] Billy Devlin Neutrophils/100 WBC (Bld) 60.2 % Normal 43.0-75.0 [facility] Comment on above: Performed By: #### H ALEXANDER #### [facility] [address] [place] [address] Billy Devlin Platelet mean volume (Bld) [Entitic vol] 11.1 fL Normal 9.5-13.5 [facility] Comment on above: Performed By: #### H BSASUZANNE #### [facility] [address] [place] [address] Billycarrillo Devlin PLT 162 103/ul Normal 150-450 [facility] Comment on above: Performed By: #### H BSASUZANNE #### [facility] [address] [place] [address] Billy Devlin RBC 3.57 106/ul Critically low 4.70-6.10 [facility] Comment on above: Performed By: #### H BSASUZANNE #### [facility] [address] [place] [address] Billycarrillo Devlin WBC 4.3 103/ul Normal 4.0-11.0 [facility] Comment on above: Performed By: #### H BSANS #### [facility] [address] [place] [address] Billy Devlin FERRITINon 04-06-2021 Ferritin [Mass/Vol] ng/mL Critically high 17.9-464.0 [facility] Comment on above: Performed By: #### T 7, LIPA, TSH, AMADOU, CMP #### [facility] [address] [place], [place] [id number] Dr. Krystle Heaton FREE T4on 04-06-2021 Free T4 [Mass/Vol] 0.73 ng/dL Critically low 0.78-2.19 [facility] Comment on above: Performed By: #### T 7, LIPA, TSH, AMADOU, CMP #### [facility] [address] [place] [address] Dr. Krystle Heaton IRON AND TIBCon 04-06-2021 % SATURATION 54.8 % Normal [facility] Comment on above: Performed By: #### T 7, LIPA, TSH, AMADOU, CMP #### [facility] [address] [place] [address] Dr. Krystle Heaton Iron [Mass/Vol] 161.0 ug/dL Normal 49.0-181.0 [facility] Comment on above: Performed By: #### T 7, LIPA, TSH, AMADOU, CMP #### [facility] [address] [place] [address] Dr. Krystle Heaton TIBC DIRECT 294.0 ug/dL Normal 261.0-497.0 [facility] Comment on above: Performed By: #### T 7, LIPA, TSH, AMADOU, CMP #### [facility] [address] [place] [address] Dr. Krystle Heaton PROF 14(COMP METB)on 021 Albumin [Mass/Vol] 3.7 g/dL Normal 3.5-5.0 [facility] Comment on above: Performed By: #### T 7, LIPA, TSH, AMADOU, CMP #### [facility] [address] [place] [address] Dr. Krystle Heaton Albumin/Globulin [Mass ratio] 1.0 {ratio} Normal [facility] Comment on above: Performed By: #### T 7, LIPA, TSH, AMADOU, CMP #### [facility] [address] [place] [address] Dr. Krystle Heaton ALP [Catalytic activity/Vol] 83 U/L Normal 38-126 [facility] Comment on above: Performed By: #### T 7, LIPA, TSH, AMADOU, CMP #### [facility] [address] [place] [address] Dr. Krystle Heaton ALT [Catalytic activity/Vol] 140 U/L Critically high 21-72 [facility] Comment on above: Performed By: #### T 7, LIPA, TSH, AMADOU, CMP #### [facility] [address] [place] [address] Dr. Krystle Heaton Anion gap [Moles/Vol] 15.8 mmol/L Normal [facility] Comment on above: Performed By: #### T 7, LIPA, TSH, AMADOU, CMP #### [facility] [address] [place] [address] Dr. Krystle Heaton AST [Catalytic activity/Vol] 186 U/L Critically high 17-59 [facility] Comment on above: Performed By: #### T 7, LIPA, TSH, AMADOU, CMP #### [facility] [address] [place] [address] Dr. Krystle Heaton Bilirubin [Mass/Vol] 0.5 mg/dL Normal 0.2-1.3 [facility] Comment on above: Performed By: #### T 7, LIPA, TSH, AMADOU, CMP #### [facility] [address] [place] [address] Dr. Krystle Heaton Calcium [Mass/Vol] 9.0 mg/dL Normal 8.4-10.2 [facility] Comment on above: Performed By: #### T 7, LIPA, TSH, AMADOU, CMP #### [facility] [address] [place] [address] Dr. Krystle Heaton Chloride [Moles/Vol] 101 mmol/L Normal 98-107 [facility] Comment on above: Performed By: #### T 7, LIPA, TSH, AMADOU, CMP #### [facility] [address] [place] [address] Dr. Krystle Heaton CO2 [Moles/Vol] 25.8 mmol/L Normal 22.0-30.[address] [facility] Comment on above: Performed By: #### T 7, LIPA, TSH, AMADOU, CMP #### [facility] [address] [place] [address] Dr. Krystle Heaton Creatinine [Mass/Vol] 1.07 mg/dL Normal 0.66-1.25 [facility] Comment on above: Performed By: #### T 7, LIPA, TSH, AMADOU, CMP #### [facility] [address] [address] [address] Krystle Heaton EGFR-AF GABONESE >60 Normal >=[address] [facility] Comment on above: Performed By: #### T 7, LIPA, TSH, AMADOU, CMP #### [facility] [address] [address] [address] Krystle Heaton EGFR-NON AF GABONESE >60 Normal >=60 [facility] Comment on above: Performed By: #### T 7, LIPA, TSH, AMADOU, CMP #### [facility] [address] [address] [address] Krystle Heaton Globulin (S) [Mass/Vol] 3.7 g/dL Normal [facility] Comment on above: Performed By: #### T 7, LIPA, TSH, AMADOU, CMP #### [facility] [address] [address] [address] Krystle Heaton Glucose [Mass/Vol] 104 mg/dL Normal 74-106 [facility] Comment on above: Performed By: #### T 7, LIPA, TSH, AMADOU, CMP #### [facility] [address] [address] [address] Krystle Heaton Potassium [Moles/Vol] 4.6 mmol/L Normal 3.4-5.0 [facility] Comment on above: Performed By: #### T 7, LIPA, TSH, AMADOU, CMP #### [facility] [address] [address] [address] Krystle Heaton Protein [Mass/Vol] 7.4 g/dL Normal 6.1-8.2 [facility] Comment on above: Performed By: #### T 7, LIPA, TSH, AMADOU, CMP #### [facility] [address] [address] [address] Krystle Heaton Sodium [Moles/Vol] 138 mmol/L Normal 137-145 [facility] Comment on above: Performed By: #### T 7, LIPA, TSH, AMADOU, CMP #### [facility] [address] [place] [address] Dr. Krystle Heaton Urea nitrogen [Mass/Vol] 10.0 mg/dL Normal 9.0-20.0 [facility] Comment on above: Performed By: #### T 7, LIPA, TSH, AMADOU, CMP #### [facility] [address] [place] [address] Dr. Krystle Heaton Urea nitrogen/Creatinine [Mass ratio] 9.3 mg/mg Normal [facility] Comment on above: Performed By: #### T 7, LIPA, TSH, AMADOU, CMP #### [facility] [address] [place] [address] Dr. Krystle Heaton TSHon 04-06-2021 TSH 1.945 uIU/mL Normal 0.470-4.680 [facility] Comment on above: Performed By: #### T 7, LIPA, TSH, AMADOU, CMP #### [facility] [address] [place] [address] Dr. Krystle Heaton TSH RANGE SEE BELOW Normal [facility] Comment on above: Result Comment: <0.3 4 UIU/ml HYPERTHYROID 0.34-5.60 UIU/ml EUTHYROID >5.60 UIU/ml HYPOTHYROID Performed By: #### T 7, LIPA, TSH, AMADOU, CMP #### [facility] [address] [place] [address] Dr. Krystle Heaton CBC AUTO DIFFon 03-30-2021 BASO # 0.0 103/ul Normal 0.0-0.1 [facility] Comment on above: Performed By: #### T 7, LIPA, TSH, AMADOU, CMP #### [facility] [address] [place] [address] Dr. Krystle Heaton Basophils/100 WBC (Bld) 0.8 % Normal 0.2-2.0 [facility] Comment on above: Performed By: #### T 7, LIPA, TSH, AMADOU, CMP #### [facility] [address] [place] [address] Dr. Krystle Heaton EO # 0.1 103/ul Normal 0.0-0.7 [facility] Comment on above: Performed By: #### T 7, LIPA, TSH, AMADOU, CMP #### [facility] [address] [place] [address] Dr. Krystle Heaton Eosinophils/100 WBC (Bld) 3.0 % Normal 0.9-7.0 [facility] Comment on above: Performed By: #### T 7, LIPA, TSH, AMADOU, CMP #### [facility] [address] [place] [address] Dr. Krystle Heaton Erythrocyte distribution width (RBC) [Ratio] 13.9 % Normal 11.0-15.0 [facility] Comment on above: Performed By: #### T 7, LIPA, TSH, AMADOU, CMP #### [facility] [address] [place] [address] Dr. Krystle Heaton Hematocrit (Bld) [Volume fraction] 40.4 % Critically low 42.0-54.0 [facility] Comment on above: Performed By: #### T 7, LIPA, TSH, AMADOU, CMP #### [facility] [address] [place] [address] Dr. Krystle Heaton Hemoglobin (Bld) [Mass/Vol] 13.5 g/dL Critically low 14.0-18.0 [facility] Comment on above: Performed By: #### T 7, LIPA, TSH, AMADOU, CMP #### [facility] [address] [place] [address] Dr. Krystle Heaton IG # 0.01 10e3/ul Normal 0.00-0.03 [facility] Comment on above: Performed By: #### T 7, LIPA, TSH, AMADOU, CMP #### [facility] [address] [place] [address] Dr. Krystle Heaton IG % 0.3 % Normal 0.0-0.5 [facility] Comment on above: Performed By: #### T 7, LIPA, TSH, AMADOU, CMP #### [facility] [address] [place] [address] Dr. Krystle Heaton LYMPH # 1.2 103/ul Normal 1.2-3.8 [facility] Comment on above: Performed By: #### T 7, LIPA, TSH, AMADOU, CMP #### [facility] [address] [place] [address] Dr. Krystle Heaton Lymphocytes/100 WBC (Bld) 32.7 % Normal 20.5-60.0 [facility] Comment on above: Performed By: #### T 7, LIPA, TSH, AMADOU, CMP #### [facility] [address] [place] [address] Dr. Krystle Heaton MANUAL DIFF REQ NO Normal [facility] Comment on above: Performed By: #### T 7, LIPA, TSH, AMADOU, CMP #### [facility] [address] [place] [address] Dr. Krystle Heaton MCH (RBC) [Entitic mass] 36.5 pg Critically high 25.9-34.0 [facility] Comment on above: Performed By: #### T 7, LIPA, TSH, AMADOU, CMP #### [facility] [address] [place] [address] Dr. Krystle Heaton MCHC (RBC) [Mass/Vol] 33.4 g/dL Normal 29.9-35.2 [facility] Comment on above: Result Comment: MACR OCYTOSIS PRESENT Performed By: #### T 7, LIPA, TSH, AMADOU, CMP #### [facility] [address] [place] [address] Dr. Krystle Heaton MCV (RBC) [Entitic vol] 109.2 fL Critically high 80.0-94.0 [facility] Comment on above: Performed By: #### T 7, LIPA, TSH, AMADOU, CMP #### [facility] [address] [place] [address] Dr. Krystle Heaton MONO # 0.4 103/ul Normal 0.3-0.8 [facility] Comment on above: Performed By: #### T 7, LIPA, TSH, AMADOU, CMP #### [facility] [address] [place] [address] Dr. Krystle Heaton Monocytes/100 WBC (Bld) 11.4 % Normal 1.7-12.0 [facility] Comment on above: Performed By: #### T 7, LIPA, TSH, AMADOU, CMP #### [facility] [address] [place] [address] Dr. Krystle Heaton NEUT # 1.9 103/ul Normal 1.4-6.5 [facility] Comment on above: Performed By: #### T 7, LIPA, TSH, AMADOU, CMP #### [facility] [address] [place] [address] Dr. Krystle Heaton Neutrophils/100 WBC (Bld) 51.8 % Normal 43.0-75.0 [facility] Comment on above: Performed By: #### T 7, LIPA, TSH, AMADOU, CMP #### [facility] [address] [place] [address] Dr. Krystle Heaton Platelet mean volume (Bld) [Entitic vol] 10.8 fL Normal 9.5-13.5 [facility] Comment on above: Performed By: #### T 7, LIPA, TSH, AMADOU, CMP #### [facility] [address] [place] [address] Dr. Krystle Heaton PLT 184 103/ul Normal 150-450 [facility] Comment on above: Performed By: #### T 7, LIPA, TSH, AMADOU, CMP #### [facility] [address] [place] [address] Dr. Krystle Heaton RBC 3.70 106/ul Critically low 4.70-6.10 [facility] Comment on above: Performed By: #### T 7, LIPA, TSH, AMADOU, CMP #### [facility] [address] [place] [address] Dr. Krystle Heaton WBC 3.6 103/ul Critically low 4.0-11.0 [facility] Comment on above: Performed By: #### T 7, LIPA, TSH, AMADOU, CMP #### [facility] [address] [place] [address] Dr. Krystle Heaton FERRITINon 03-30-2021 Ferritin [Mass/Vol] ng/mL Critically high 17.9-464.0 [facility] Comment on above: Performed By: #### F ERR #### [facility] [address] [place] [address] Dr. Krystle Heaton FREE T4on 03-30-2021 Free T4 [Mass/Vol] 0.83 ng/dL Normal 0.78-2.19 [facility] Comment on above: Performed By: #### F ERR #### [facility] [address] [place] [address] Dr. Krystle Heaton IRON AND TIBCon 03-30-2021 % SATURATION 78.5 % Normal [facility] Comment on above: Performed By: #### F ERR #### [facility] [address] [place] [address] Dr. Krystle Heaton Iron [Mass/Vol] 230.0 ug/dL Critically high 49.0-181.0 [facility] Comment on above: Performed By: #### F ERR #### [facility] [address] [place] [address] Dr. Krystle Heaton TIBC DIRECT 293.0 ug/dL Normal 261.0-497.0 [facility] Comment on above: Performed By: #### F ERR #### [facility] [address] [place] [address] Dr. Krystle Heaton PROF 14(COMP METB)on 021 Albumin [Mass/Vol] 3.8 g/dL Normal 3.5-5.0 [facility] Comment on above: Performed By: #### T 7, LIPA, TSH, AMADOU, CMP #### [facility] [address] [place] [address] Dr. Krystle Heaton Albumin/Globulin [Mass ratio] 1.0 {ratio} Normal [facility] Comment on above: Performed By: #### T 7, LIPA, TSH, AMADOU, CMP #### [facility] [address] [address] [address] Krystle Heaton ALP [Catalytic activity/Vol] 90 U/L Normal 38-126 [facility] Comment on above: Performed By: #### T 7, LIPA, TSH, AMADOU, CMP #### [facility] [address] [place] [address] Dr. Krystle Heaton ALT [Catalytic activity/Vol] 149 U/L Critically high 21-72 [facility] Comment on above: Performed By: #### T 7, LIPA, TSH, AMADOU, CMP #### [facility] [address] [place] [address] Dr. Krystle Heaton Anion gap [Moles/Vol] 16.0 mmol/L Normal [facility] Comment on above: Performed By: #### T 7, LIPA, TSH, AMADOU, CMP #### [facility] [address] [place] [address] Dr. Krystle Heaton AST [Catalytic activity/Vol] 187 U/L Critically high 17-59 [facility] Comment on above: Performed By: #### T 7, LIPA, TSH, AMADOU, CMP #### [facility] [address] [place] [address] Dr. Krystle Heaton Bilirubin [Mass/Vol] 0.6 mg/dL Normal 0.2-1.3 [facility] Comment on above: Performed By: #### T 7, LIPA, TSH, AMADOU, CMP #### [facility] [address] [place] [address] Dr. Krystle Heaton Calcium [Mass/Vol] 9.2 mg/dL Normal 8.4-10.2 [facility] Comment on above: Performed By: #### T 7, LIPA, TSH, AMADOU, CMP #### [facility] [address] [place] [address] Dr. Krystle Heaton Chloride [Moles/Vol] 100 mmol/L Normal 98-107 [facility] Comment on above: Performed By: #### T 7, LIPA, TSH, AMADOU, CMP #### [facility] [address] [place] [address] Dr. Krystle Heaton CO2 [Moles/Vol] 26.2 mmol/L Normal 22.0-30.[address] [facility] Comment on above: Performed By: #### T 7, LIPA, TSH, AMADOU, CMP #### [facility] [address] [place] [address] Dr. Krystle Heaton Creatinine [Mass/Vol] 1.07 mg/dL Normal 0.66-1.25 [facility] Comment on above: Performed By: #### T 7, LIPA, TSH, AMADOU, CMP #### [facility] [address] [place] [address] Dr. Krystle Heaton EGFR-AF GABONESE >60 Normal >=60 [facility] Comment on above: Performed By: #### T 7, LIPA, TSH, AMADOU, CMP #### [facility] [address] [place] [address] Dr. Krystle Heaton EGFR-NON AF GABONESE >60 Normal >=60 [facility] Comment on above: Performed By: #### T 7, LIPA, TSH, AMADOU, CMP #### [facility] [address] [place] [address] Dr. Krystle Heaton Globulin (S) [Mass/Vol] 3.8 g/dL Normal [facility] Comment on above: Performed By: #### T 7, LIPA, TSH, AMADOU, CMP #### [facility] [address] [place] [address] Dr. Krystle Heaton Glucose [Mass/Vol] 110 mg/dL Critically high 74-106 [facility] Comment on above: Performed By: #### T 7, LIPA, TSH, AMADOU, CMP #### [facility] [address] [place] [address] Dr. Krystle Heaton Potassium [Moles/Vol] 4.2 mmol/L Normal 3.4-5.0 [facility] Comment on above: Performed By: #### T 7, LIPA, TSH, AMADOU, CMP #### [facility] [address] [place] [address] Dr. Krystle Heaton Protein [Mass/Vol] 7.6 g/dL Normal 6.1-8.2 [facility] Comment on above: Performed By: #### T 7, LIPA, TSH, AMADOU, CMP #### [facility] [address] [place] [address] Dr. Krystle Heaton Sodium [Moles/Vol] 138 mmol/L Normal 137-145 [facility] Comment on above: Performed By: #### T 7, LIPA, TSH, AMADOU, CMP #### [facility] [address] [place] [address] Dr. Krystle Heaton Urea nitrogen [Mass/Vol] 9.0 mg/dL Normal 9.0-20.0 [facility] Comment on above: Performed By: #### T 7, LIPA, TSH, AMADOU, CMP #### [facility] [address] [place] [address] Dr. Krystle Heaton Urea nitrogen/Creatinine [Mass ratio] 8.4 mg/mg Normal [facility] Comment on above: Performed By: #### T 7, LIPA, TSH, AMADOU, CMP #### [facility] [address] [place] [address] Dr. Krystle Heaton TSHon 03-30-2021 TSH 1.030 uIU/mL Normal 0.470-4.680 [facility] Comment on above: Performed By: #### T 7, LIPA, TSH, AMADOU, CMP #### [facility] [address] [place] [address] Dr. Krystle Heaton TSH RANGE SEE BELOW Normal [facility] Comment on above: Result Comment: <0.3 4 UIU/ml HYPERTHYROID 0.34-5.60 UIU/ml EUTHYROID >5.60 UIU/ml HYPOTHYROID Performed By: #### T 7, LIPA, TSH, AMADOU, CMP #### [facility] [address] [place] [address] Dr. Krystle Heaton CBC AUTO DIFFon 03-22-2021 BASO # 0.0 103/ul Normal 0.0-0.1 [facility] Comment on above: Performed By: #### T 7, LIPA, TSH, AMADOU, CMP #### [facility] [address] [place] [address] Dr. Krystle Heaton Basophils/100 WBC (Bld) 0.6 % Normal 0.2-2.0 [facility] Comment on above: Performed By: #### T 7, LIPA, TSH, AMADOU, CMP #### [facility] [address] [place] [address] Dr. Krystle Heaton EO # 0.1 103/ul Normal 0.0-0.7 [facility] Comment on above: Performed By: #### T 7, LIPA, TSH, AMADOU, CMP #### [facility] [address] [place] [address] Dr. Krystle Heaton Eosinophils/100 WBC (Bld) 2.1 % Normal 0.9-7.0 [facility] Comment on above: Performed By: #### T 7, LIPA, TSH, AMADOU, CMP #### [facility] [address] [place] [address] Dr. Krystle Heaton Erythrocyte distribution width (RBC) [Ratio] 12.7 % Normal 11.0-15.0 [facility] Comment on above: Performed By: #### T 7, LIPA, TSH, AMADOU, CMP #### [facility] [address] [place] [address] Dr. Krystle Heaton Hematocrit (Bld) [Volume fraction] 37.5 % Critically low 42.0-54.0 [facility] Comment on above: Performed By: #### T 7, LIPA, TSH, AMADOU, CMP #### [facility] [address] [place] [address] Dr. Krystle Heaton Hemoglobin (Bld) [Mass/Vol] 13.1 g/dL Critically low 14.0-18.0 [facility] Comment on above: Performed By: #### T 7, LIPA, TSH, AMADOU, CMP #### [facility] [address] [place] [address] Dr. Krystle Heaton IG # 0.01 10e3/ul Normal 0.00-0.03 [facility] Comment on above: Performed By: #### T 7, LIPA, TSH, AMADOU, CMP #### [facility] [address] [place] [address] Dr. Krystle Heaton IG % 0.3 % Normal 0.0-0.5 [facility] Comment on above: Performed By: #### T 7, LIPA, TSH, AMADOU, CMP #### [facility] [address] [place] [address] Dr. Krystle Heaton LYMPH # 1.2 103/ul Normal 1.2-3.8 [facility] Comment on above: Performed By: #### T 7, LIPA, TSH, AMADOU, CMP #### [facility] [address] [place] [address] Dr. Krystle Heaton Lymphocytes/100 WBC (Bld) 35.7 % Normal 20.5-60.0 [facility] Comment on above: Performed By: #### T 7, LIPA, TSH, AMADOU, CMP #### [facility] [address] [place] [address] Dr. Krystle Heaton MANUAL DIFF REQ NO Normal [facility] Comment on above: Performed By: #### T 7, LIPA, TSH, AMADOU, CMP #### [facility] [address] [place] [address] Dr. Krystle Heaton MCH (RBC) [Entitic mass] 37.0 pg Critically high 25.9-34.0 [facility] Comment on above: Performed By: #### T 7, LIPA, TSH, AMADOU, CMP #### [facility] [address] [place] [address] Dr. Krystle Heaton MCHC (RBC) [Mass/Vol] 34.9 g/dL Normal 29.9-35.2 [facility] Comment on above: Performed By: #### T 7, LIPA, TSH, AMADOU, CMP #### [facility] [address] [place] [address] Dr. Krystle Heaton MCV (RBC) [Entitic vol] 105.9 fL Critically high 80.0-94.0 [facility] Comment on above: Performed By: #### T 7, LIPA, TSH, AMADOU, CMP #### [facility] [address] [place] [address] Dr. Krystle Heaton MONO # 0.2 103/ul Critically low 0.3-0.8 [facility] Comment on above: Performed By: #### T 7, LIPA, TSH, AMADOU, CMP #### [facility] [address] [address] [address] Krystle Heaton Monocytes/100 WBC (Bld) 6.8 % Normal 1.7-12.0 [facility] Comment on above: Performed By: #### T 7, LIPA, TSH, AMADOU, CMP #### [facility] [address] [place] [address] Dr. Krystle Heaton NEUT # 1.8 103/ul Normal 1.4-6.5 [facility] Comment on above: Performed By: #### T 7, LIPA, TSH, AMADOU, CMP #### [facility] [address] [place] [address] Dr. Krystle Heaton Neutrophils/100 WBC (Bld) 54.5 % Normal 43.0-75.0 [facility] Comment on above: Performed By: #### T 7, LIPA, TSH, AMADOU, CMP #### [facility] [address] [place] [address] Dr. Krystle Heaton Platelet mean volume (Bld) [Entitic vol] 10.4 fL Normal 9.5-13.5 [facility] Comment on above: Performed By: #### T 7, LIPA, TSH, AMADOU, CMP #### [facility] [address] [place] [address] Dr. Krystel Heaton PLT 126 103/ul Critically low 150-450 [facility] Comment on above: Performed By: #### T 7, LIPA, TSH, AMADOU, CMP #### [facility] [address] [place] [address] Dr. Krystle Heaton RBC 3.54 106/ul Critically low 4.70-6.10 [facility] Comment on above: Performed By: #### T 7, LIPA, TSH, AMADOU, CMP #### [facility] [address] [place] [address] Dr. Krystle Heaton WBC 3.4 103/ul Critically low 4.0-11.0 [facility] Comment on above: Performed By: #### T 7, LIPA, TSH, AMADOU, CMP #### [facility] [address] [place] [address] Dr. Krystle Heaton FERRITINon 03-22-2021 Ferritin [Mass/Vol] ng/mL Critically high 17.9-464.0 [facility] Comment on above: Performed By: #### T 7, LIPA, TSH, AMADOU, CMP #### [facility] [address] [place] [address] Dr. Krystle Heaton FREE T4on 03-22-2021 Free T4 [Mass/Vol] 0.78 ng/dL Normal 0.78-2.19 [facility] Comment on above: Performed By: #### T 7, LIPA, TSH, AMADOU, CMP #### [facility] [address] [place] [address] Dr. Krystle Heaton IRON AND TIBCon 03-22-2021 % SATURATION 106.0 % Normal [facility] Comment on above: Performed By: #### T 7, LIPA, TSH, AMADOU, CMP #### [facility] [address] [place] [address] Dr. Krystle Heaton Iron [Mass/Vol] 233.0 ug/dL Critically high 49.0-181.0 [facility] Comment on above: Performed By: #### T 7, LIPA, TSH, AMADOU, CMP #### [facility] [address] [place] [address] Dr. Krystle Heaton TIBC DIRECT 220.0 ug/dL Critically low 261.0-497.0 [facility] Comment on above: Performed By: #### T 7, LIPA, TSH, AMADOU, CMP #### [facility] [address] [place] [address] Dr. Krystle Heaton PROF 14(COMP METB)on 021 Albumin [Mass/Vol] 3.5 g/dL Normal 3.5-5.0 [facility] Comment on above: Performed By: #### T 7, LIPA, TSH, AMADOU, CMP #### [facility] [address] [place] [address] Dr. Krystle Heaton Albumin/Globulin [Mass ratio] 1.0 {ratio} Normal [facility] Comment on above: Performed By: #### T 7, LIPA, TSH, AMADOU, CMP #### [facility] [address] [place] [address] Dr. Krystle Heaton ALP [Catalytic activity/Vol] 77 U/L Normal 38-126 [facility] Comment on above: Performed By: #### T 7, LIPA, TSH, AMADOU, CMP #### [facility] [address] [place] [address] Dr. Krystle Heaton ALT [Catalytic activity/Vol] 95 U/L Critically high 21-72 [facility] Comment on above: Performed By: #### T 7, LIPA, TSH, AMADOU, CMP #### [facility] [address] [place] [address] Dr. Krystle Heaton Anion gap [Moles/Vol] 17.3 mmol/L Normal [facility] Comment on above: Performed By: #### T 7, LIPA, TSH, AMADOU, CMP #### [facility] [address] [place] [address] Dr. Krystle Heaton AST [Catalytic activity/Vol] 161 U/L Critically high 17-59 [facility] Comment on above: Performed By: #### T 7, LIPA, TSH, AMADOU, CMP #### [facility] [address] [place] [address] Dr. Krystle Heaton Bilirubin [Mass/Vol] 0.8 mg/dL Normal 0.2-1.3 [facility] Comment on above: Performed By: #### T 7, LIPA, TSH, AMADOU, CMP #### [facility] [address] [place] [address] Dr. Krystle Heaton Calcium [Mass/Vol] 8.5 mg/dL Normal 8.4-10.2 [facility] Comment on above: Performed By: #### T 7, LIPA, TSH, AMADOU, CMP #### [facility] [address] [place] [address] Dr. Krystle Heaton Chloride [Moles/Vol] 101 mmol/L Normal 98-107 [facility] Comment on above: Performed By: #### T 7, LIPA, TSH, AMADOU, CMP #### [facility] [address] [place] [address] Dr. Krystle Heaton CO2 [Moles/Vol] 22.6 mmol/L Normal 22.0-30.0 [facility] Comment on above: Performed By: #### T 7, LIPA, TSH, AMADOU, CMP #### [facility] [address] [place] [address] Dr. Krystle Heaton Creatinine [Mass/Vol] 0.98 mg/dL Normal 0.66-1.25 [facility] Comment on above: Performed By: #### T 7, LIPA, TSH, AMADOU, CMP #### [facility] [address] [place] [address] Dr. Krystle Heaton EGFR-AF GABONESE >60 Normal >=60 [facility] Comment on above: Performed By: #### T 7, LIPA, TSH, AMADOU, CMP #### [facility] [address] [place] [address] Dr. Krystle Heaton EGFR-NON AF GABONESE >60 Normal >=60 [facility] Comment on above: Performed By: #### T 7, LIPA, TSH, AMADOU, CMP #### [facility] [address] [place] [address] Dr. Krystle Heaton Globulin (S) [Mass/Vol] 3.4 g/dL Normal [facility] Comment on above: Performed By: #### T 7, LIPA, TSH, AMADOU, CMP #### [facility] [address] [place] [address] Dr. Krystle Heaton Glucose [Mass/Vol] 103 mg/dL Normal 74-106 [facility] Comment on above: Performed By: #### T 7, LIPA, TSH, AMADOU, CMP #### [facility] [address] [place] [address] Dr. Krystle Heaton Potassium [Moles/Vol] 3.9 mmol/L Normal 3.4-5.0 [facility] Comment on above: Performed By: #### T 7, LIPA, TSH, AMADOU, CMP #### [facility] [address] [place] [address] Dr. Krystle Heaton Protein [Mass/Vol] 6.9 g/dL Normal 6.1-8.2 [facility] Comment on above: Performed By: #### T 7, LIPA, TSH, AMADOU, CMP #### [facility] [address] [place] [address] Dr. Krystle Heaton Sodium [Moles/Vol] 137 mmol/L Normal 137-145 [facility] Comment on above: Performed By: #### T 7, LIPA, TSH, AMADOU, CMP #### [facility] [address] [place] [address] Dr. Krystle Heaton Urea nitrogen [Mass/Vol] 8.0 mg/dL Critically low 9.0-20.0 [facility] Comment on above: Performed By: #### T 7, LIPA, TSH, AMADOU, CMP #### [facility] [address] [place] [address] Dr. Krystle Heaton Urea nitrogen/Creatinine [Mass ratio] 8.2 mg/mg Normal [facility] Comment on above: Performed By: #### T 7, LIPA, TSH, AMADOU, CMP #### [facility] [address] [place] [address] Dr. Krystle Heaton TSHon 03-22-2021 TSH 2.059 uIU/mL Normal 0.470-4.680 [facility] Comment on above: Performed By: #### T 7, LIPA, TSH, AMADOU, CMP #### [facility] [address] [place] [address] Dr. Krystle Heaton TSH RANGE SEE BELOW Normal [facility] Comment on above: Result Comment: <0.3 4 UIU/ml HYPERTHYROID 0.34-5.60 UIU/ml EUTHYROID >5.60 UIU/ml HYPOTHYROID Performed By: #### T 7, LIPA, TSH, AMADOU, CMP #### [facility] [address] [place] [address] Dr. Krystle Heaton CBC AUTO DIFFon 03-17-2021 BASO # 0.0 103/ul Normal 0.0-0.1 [facility] Comment on above: Performed By: #### T 7, LIPA, TSH, AMADOU, CMP #### [facility] [address] [place] [address] Dr. Krystle Heaton Basophils/100 WBC (Bld) 0.3 % Normal 0.2-2.0 [facility] Comment on above: Performed By: #### T 7, LIPA, TSH, AMADOU, CMP #### [facility] [address] [place] [address] Dr. Krystle Heaton EO # 0.1 103/ul Normal 0.0-0.7 [facility] Comment on above: Performed By: #### T 7, LIPA, TSH, AMADOU, CMP #### [facility] [facility] [address] [place] [address] Dr. Krystle Heaton Eosinophils/100 WBC (Bld) 1.8 % Normal 0.9-7.0 [facility] Comment on above: Performed By: #### T 7, LIPA, TSH, AMADOU, CMP #### [facility] [address] [place] [address] Dr. Krystle Heaton Erythrocyte distribution width (RBC) [Ratio] 12.5 % Normal 11.0-15.0 [facility] Comment on above: Performed By: #### T 7, LIPA, TSH, AMADOU, CMP #### [facility] [address] [place] [address] Dr. Krystle Heaton Hematocrit (Bld) [Volume fraction] 40.9 % Critically low 42.0-54.0 [facility] Comment on above: Performed By: #### T 7, LIPA, TSH, AMADOU, CMP #### [facility] [address] [place] [address] Dr. Krystle Heaton Hemoglobin (Bld) [Mass/Vol] 14.1 g/dL Normal 14.0-18.0 [facility] Comment on above: Performed By: #### T 7, LIPA, TSH, AMADOU, CMP #### [facility] [address] [place] [address] Dr. Krystle Heaton IG # 0.01 10e3/ul Normal 0.00-0.03 [facility] Comment on above: Performed By: #### T 7, LIPA, TSH, AMADOU, CMP #### [facility] [address] [place] [address] Dr. Krystle Heaton IG % 0.3 % Normal 0.0-0.5 [facility] Comment on above: Performed By: #### T 7, LIPA, TSH, AMADOU, CMP #### [facility] [address] [place] [address] Dr. Krystle Heaton LYMPH # 1.3 103/ul Normal 1.2-3.8 [facility] Comment on above: Performed By: #### T 7, LIPA, TSH, AMADOU, CMP #### [facility] [address] [place] [address] Dr. Krystle Heaton Lymphocytes/100 WBC (Bld) 41.1 % Normal 20.5-60.0 [facility] Comment on above: Performed By: #### T 7, LIPA, TSH, AMADOU, CMP #### [facility] [address] [place] [address] Dr. Krystle Heaton MANUAL DIFF REQ NO Normal [facility] Comment on above: Performed By: #### T 7, LIPA, TSH, AMADOU, CMP #### [facility] [address] [place] [address] Dr. Krystle Heaton MCH (RBC) [Entitic mass] 36.3 pg Critically high 25.9-34.0 [facility] Comment on above: Performed By: #### T 7, LIPA, TSH, AMADOU, CMP #### [facility] [address] [place] [address] Dr. Krystle Heaton MCHC (RBC) [Mass/Vol] 34.5 g/dL Normal 29.9-35.2 [facility] Comment on above: Performed By: #### T 7, LIPA, TSH, AMADOU, CMP #### [facility] [address] [place] [address] Dr. Krystle Heaton MCV (RBC) [Entitic vol] 105.4 fL Critically high 80.0-94.0 [facility] Comment on above: Performed By: #### T 7, LIPA, TSH, AMADOU, CMP #### [facility] [address] [address] [address] Krystle Heaton MONO # 0.3 103/ul Normal 0.3-0.8 [facility] Comment on above: Performed By: #### T 7, LIPA, TSH, AMADOU, CMP #### [facility] [address] [place] [address] Dr. Krystle Heaton Monocytes/100 WBC (Bld) 8.0 % Normal 1.7-12.0 [facility] Comment on above: Performed By: #### T 7, LIPA, TSH, AMADOU, CMP #### [facility] [address] [place] [address] Dr. Krystle Heaton NEUT # 1.6 103/ul Normal 1.4-6.5 [facility] Comment on above: Performed By: #### T 7, LIPA, TSH, AMADOU, CMP #### [facility] [address] [place] [address] Dr. Krystle Heaton Neutrophils/100 WBC (Bld) 48.5 % Normal 43.0-75.0 [facility] Comment on above: Performed By: #### T 7, LIPA, TSH, AMADOU, CMP #### [facility] [address] [place] [address] Dr. Krystle Heaton Platelet mean volume (Bld) [Entitic vol] 10.6 fL Normal 9.5-13.5 [facility] Comment on above: Performed By: #### T 7, LIPA, TSH, AMADOU, CMP #### [facility] [address] [place] [address] Dr. Krystle Heaton PLT 134 103/ul Critically low 150-450 [facility] Comment on above: Performed By: #### T 7, LIPA, TSH, AMADOU, CMP #### [facility] [address] [place] [address] Dr. Krystle Heaton RBC 3.88 106/ul Critically low 4.70-6.10 [facility] Comment on above: Result Comment: Macr ocytosis 1+ Stomatocytes 1+ Performed By: #### T 7, LIPA, TSH, AMADOU, CMP #### [facility] [address] [address] [address] Krystle Heaton WBC 3.3 103/ul Critically low 4.0-11.0 [facility] Comment on above: Performed By: #### T 7, LIPA, TSH, AMADOU, CMP #### [facility] [address] [place] [address] Dr. Krystle Heaton FERRITINon 03-17-2021 Ferritin [Mass/Vol] ng/mL Critically high 17.9-464.0 [facility] Comment on above: Performed By: #### T 7, LIPA, TSH, AMADOU, CMP #### [facility] [address] [place] [address] Dr. Krystle Heaton FREE T4on 03-17-2021 Free T4 [Mass/Vol] 0.82 ng/dL Normal 0.78-2.19 [facility] Comment on above: Performed By: #### T 7, LIPA, TSH, AMADOU, CMP #### [facility] [address] [place] [address] Dr. Krystle Heaton IRON AND TIBCon 03-17-2021 % SATURATION 100.8 % Normal [facility] Comment on above: Performed By: #### T 7, LIPA, TSH, AMADOU, CMP #### [facility] [address] [place] [address] Dr. Krystle Heaton Iron [Mass/Vol] 249.0 ug/dL Critically high 49.0-181.0 [facility] Comment on above: Performed By: #### T 7, LIPA, TSH, AMADOU, CMP #### [facility] [address] [place] [address] Dr. Krystle Heaton TIBC DIRECT 247.0 ug/dL Critically low 261.0-497.0 [facility] Comment on above: Performed By: #### T 7, LIPA, TSH, AMADOU, CMP #### [facility] [address] [place] [address] Dr. Krystle Heaton PROF 14(COMP METB)on 021 Albumin [Mass/Vol] 3.7 g/dL Normal 3.5-5.0 [facility] Comment on above: Performed By: #### T 7, LIPA, TSH, AMADOU, CMP #### [facility] [address] [place] [address] Dr. Krystle Heaton Albumin/Globulin [Mass ratio] 1.1 {ratio} Normal [facility] Comment on above: Performed By: #### T 7, LIPA, TSH, AMADOU, CMP #### [facility] [address] [place] [address] Dr. Krystle Heaton ALP [Catalytic activity/Vol] 78 U/L Normal 38-126 [facility] Comment on above: Performed By: #### T 7, LIPA, TSH, AMADOU, CMP #### [facility] [address] [place] [address] Dr. Krystle Heaton ALT [Catalytic activity/Vol] 100 U/L Critically high 21-72 [facility] Comment on above: Performed By: #### T 7, LIPA, TSH, AMADOU, CMP #### [facility] [address] [place] [address] Dr. Krystle Heaton Anion gap [Moles/Vol] 14.4 mmol/L Normal [facility] Comment on above: Performed By: #### T 7, LIPA, TSH, AMADOU, CMP #### [facility] [address] [place] [address] Dr. Krystle Heaton AST [Catalytic activity/Vol] 158 U/L Critically high 17-59 [facility] Comment on above: Performed By: #### T 7, LIPA, TSH, AMADOU, CMP #### [facility] [address] [place] [address] Dr. Krystle Heaton Bilirubin [Mass/Vol] 0.6 mg/dL Normal 0.2-1.3 [facility] Comment on above: Performed By: #### T 7, LIPA, TSH, AMADOU, CMP #### [facility] [address] [place] [address] Dr. Krystle Heaton Calcium [Mass/Vol] 8.9 mg/dL Normal 8.4-10.2 [facility] Comment on above: Performed By: #### T 7, LIPA, TSH, AMADOU, CMP #### [facility] [address] [place] [address] Dr. Krystle Heaton Chloride [Moles/Vol] 100 mmol/L Normal 98-107 [facility] Comment on above: Performed By: #### T 7, LIPA, TSH, AMADOU, CMP #### [facility] [address] [address] [address] Krystle Heaton CO2 [Moles/Vol] 27.3 mmol/L Normal 22.0-30.0 [facility] Comment on above: Performed By: #### T 7, LIPA, TSH, AMADOU, CMP #### [facility] [address] [place] [address] Dr. Krystle Heaton Creatinine [Mass/Vol] 1.08 mg/dL Normal 0.66-1.25 [facility] Comment on above: Performed By: #### T 7, LIPA, TSH, AMADOU, CMP #### [facility] [address] [place] [address] Dr. Krystle Heaton EGFR-AF GABONESE >60 Normal >=60 [facility] Comment on above: Performed By: #### T 7, LIPA, TSH, AMADOU, CMP #### [facility] [address] [place] [address] Dr. Krystle Heaton EGFR-NON AF GABONESE >60 Normal >=60 [facility] Comment on above: Performed By: #### T 7, LIPA, TSH, AMADOU, CMP #### [facility] [address] [place] [address] Dr. Krystle Heaton Globulin (S) [Mass/Vol] 3.5 g/dL Normal [facility] Comment on above: Performed By: #### T 7, LIPA, TSH, AMADOU, CMP #### [facility] [address] [place] [address] Dr. Krystle Heaotn Glucose [Mass/Vol] 115 mg/dL Critically high 74-106 [facility] Comment on above: Performed By: #### T 7, LIPA, TSH, AMADOU, CMP #### [facility] [address] [place] [address] Dr. Krystle Heaton Potassium [Moles/Vol] 3.7 mmol/L Normal 3.4-5.0 [facility] Comment on above: Performed By: #### T 7, LIPA, TSH, AMADOU, CMP #### [facility] [address] [place] [address] Dr. Krystle Heaton Protein [Mass/Vol] 7.2 g/dL Normal 6.1-8.2 [facility] Comment on above: Performed By: #### T 7, LIPA, TSH, AMADOU, CMP #### [facility] [address] [place] [address] Dr. Krystle Heaton Sodium [Moles/Vol] 138 mmol/L Normal 137-145 [facility] Comment on above: Performed By: #### T 7, LIPA, TSH, AMADOU, CMP #### [facility] [address] [place] [address] Dr. Krystle Heaton Urea nitrogen [Mass/Vol] 10.0 mg/dL Normal 9.0-20.0 [facility] Comment on above: Performed By: #### T 7, LIPA, TSH, AMADOU, CMP #### [facility] [address] [place] [address] Dr. Krystle Heaton Urea nitrogen/Creatinine [Mass ratio] 9.3 mg/mg Normal [facility] Comment on above: Performed By: #### T 7, LIPA, TSH, AMADOU, CMP #### [facility] [address] [place] [address] Dr. Krystle Heaton TSHon 03-17-2021 TSH 1.904 uIU/mL Normal 0.470-4.680 [facility] Comment on above: Performed By: #### T 7, LIPA, TSH, AMADOU, CMP #### [facility] [address] [place] [address] Dr. Krystle Heaton TSH RANGE SEE BELOW Normal [facility] Comment on above: Result Comment: <0.3 4 UIU/ml HYPERTHYROID 0.34-5.60 UIU/ml EUTHYROID >5.60 UIU/ml HYPOTHYROID Performed By: #### T 7, LIPA, TSH, AMADOU, CMP #### [facility] [address] [place] [address] Dr. Krystle Heaton CBC AUTO DIFFon 03-08-2021 BASO # 0.0 103/ul Normal 0.0-0.1 [facility] Comment on above: Performed By: #### T 7, LIPA, TSH, AMADOU, CMP #### [facility] [address] [place] [address] Dr. Krystle Heaton Basophils/100 WBC (Bld) 0.8 % Normal 0.2-2.0 [facility] Comment on above: Performed By: #### T 7, LIPA, TSH, AMADOU, CMP #### [facility] [address] [place] [address] Dr. Krystle Heaton EO # 0.1 103/ul Normal 0.0-0.7 [facility] Comment on above: Performed By: #### T 7, LIPA, TSH, AMADOU, CMP #### [facility] [address] [place] [address] Dr. Krystle Heaton Eosinophils/100 WBC (Bld) 1.5 % Normal 0.9-7.0 [facility] Comment on above: Performed By: #### T 7, LIPA, TSH, AMADOU, CMP #### [facility] [address] [place] [address] Dr. Krystle Heaton Erythrocyte distribution width (RBC) [Ratio] 12.2 % Normal 11.0-15.0 [facility] Comment on above: Performed By: #### T 7, LIPA, TSH, AMADOU, CMP #### [facility] [address] [place] [address] Dr. Krystle Heaton Hematocrit (Bld) [Volume fraction] 45.5 % Normal 42.0-54.0 [facility] Comment on above: Performed By: #### T 7, LIPA, TSH, AMADOU, CMP #### [facility] [address] [place] [address] Dr. Krystle Heaton Hemoglobin (Bld) [Mass/Vol] 15.9 g/dL Normal 14.0-18.0 [facility] Comment on above: Performed By: #### T 7, LIPA, TSH, AMADOU, CMP #### [facility] [address] [place] [address] Dr. Krystle Heaton IG # 0.01 10e3/ul Normal 0.00-0.03 [facility] Comment on above: Performed By: #### T 7, LIPA, TSH, AMADOU, CMP #### [facility] [address] [place] [address] Dr. Krystle Heaton IG % 0.2 % Normal 0.0-0.5 [facility] Comment on above: Performed By: #### T 7, LIPA, TSH, AMADOU, CMP #### [facility] [address] [place] [address] Dr. Krystle Heaton LYMPH # 1.8 103/ul Normal 1.2-3.8 [facility] Comment on above: Performed By: #### T 7, LIPA, TSH, AMADOU, CMP #### [facility] [address] [place] [address] Dr. Krystle Heaton Lymphocytes/100 WBC (Bld) 37.8 % Normal 20.5-60.0 [facility] Comment on above: Performed By: #### T 7, LIPA, TSH, AMADOU, CMP #### [facility] [address] [place] [address] Dr. Krystle Heaton MANUAL DIFF REQ NO Normal [facility] Comment on above: Performed By: #### T 7, LIPA, TSH, AMADOU, CMP #### [facility] [address] [place] [address] Dr. Krystle Heaton MCH (RBC) [Entitic mass] 36.4 pg Critically high 25.9-34.0 [facility] Comment on above: Performed By: #### T 7, LIPA, TSH, AMADOU, CMP #### [facility] [address] [place] [address] Dr. Krystle Heaton MCHC (RBC) [Mass/Vol] 34.9 g/dL Normal 29.9-35.2 [facility] Comment on above: Performed By: #### T 7, LIPA, TSH, AMADOU, CMP #### [facility] [address] [place] [address] Dr. Krystle Heaton MCV (RBC) [Entitic vol] 104.1 fL Critically high 80.0-94.0 [facility] Comment on above: Performed By: #### T 7, LIPA, TSH, AMADOU, CMP #### [facility] [address] [place] [address] Dr. Krystle Heaton MONO # 0.4 103/ul Normal 0.3-0.8 [facility] Comment on above: Performed By: #### T 7, LIPA, TSH, AMADOU, CMP #### [facility] [address] [place] [address] Dr. Krystle Heaton Monocytes/100 WBC (Bld) 8.3 % Normal 1.7-12.0 [facility] Comment on above: Performed By: #### T 7, LIPA, TSH, AMADOU, CMP #### [facility] [address] [place] [address] Dr. Krystle Heaton NEUT # 2.4 103/ul Normal 1.4-6.5 [facility] Comment on above: Performed By: #### T 7, LIPA, TSH, AMADOU, CMP #### [facility] [address] [place] [address] Dr. Krystle Heaton Neutrophils/100 WBC (Bld) 51.4 % Normal 43.0-75.0 [facility] Comment on above: Performed By: #### T 7, LIPA, TSH, AMADOU, CMP #### [facility] [address] [place] [address] Dr. Krystle Heaton Platelet mean volume (Bld) [Entitic vol] 10.8 fL Normal 9.5-13.5 [facility] Comment on above: Performed By: #### T 7, LIPA, TSH, AMADOU, CMP #### [facility] [address] [place] [address] Dr. Krystle Heaton PLT 175 103/ul Normal 150-450 [facility] Comment on above: Performed By: #### T 7, LIPA, TSH, AMADOU, CMP #### [facility] [address] [address] [address] Krystle Heaton RBC 4.37 106/ul Critically low 4.70-6.10 [facility] Comment on above: Performed By: #### T 7, LIPA, TSH, AMADOU, CMP #### [facility] [address] [place] [address] Dr. Krystle Heaton WBC 4.7 103/ul Normal 4.0-11.0 [facility] Comment on above: Performed By: #### T 7, LIPA, TSH, AMADOU, CMP #### [facility] [address] [place] [address] Dr. Krystle Heaton FERRITINon 03-08-2021 Ferritin [Mass/Vol] ng/mL Critically high 17.9-464.0 [facility] Comment on above: Performed By: #### T 7, LIPA, TSH, AMADOU, CMP #### [facility] [address] [place] [address] Dr. Krystle Heaton FREE T4on 03-08-2021 Free T4 [Mass/Vol] 0.73 ng/dL Critically low 0.78-2.19 [facility] Comment on above: Performed By: #### T 7, LIPA, TSH, AMADOU, CMP #### [facility] [address] [place] [address] Dr. Krystle Heaton IRON AND TIBCon 03-08-2021 % SATURATION 102.2 % Normal [facility] Comment on above: Performed By: #### T 7, LIPA, TSH, AMADOU, CMP #### [facility] [address] [place] [address] Dr. Krystle Heaton Iron [Mass/Vol] 279.0 ug/dL Critically high 49.0-181.0 [facility] Comment on above: Performed By: #### T 7, LIPA, TSH, AMADOU, CMP #### [facility] [address] [place] [address] Dr. Krystle Heaton TIBC DIRECT 273.0 ug/dL Normal 261.0-497.0 [facility] Comment on above: Performed By: #### T 7, LIPA, TSH, AMADOU, CMP #### [facility] [address] [place] [address] Dr. Krystle Heaton PROF 14(COMP METB)on 021 Albumin [Mass/Vol] 3.6 g/dL Normal 3.5-5.0 [facility] Comment on above: Performed By: #### T 7, LIPA, TSH, AMADOU, CMP #### [facility] [address] [place] [address] Dr. Krystle Heaton Albumin/Globulin [Mass ratio] 1.0 {ratio} Normal [facility] Comment on above: Performed By: #### T 7, LIPA, TSH, AMADOU, CMP #### [facility] [address] [place] [address] Dr. Krystle Heaton ALP [Catalytic activity/Vol] 68 U/L Normal 38-126 [facility] Comment on above: Performed By: #### T 7, LIPA, TSH, AMADOU, CMP #### [facility] [address] [place] [address] Dr. Krystle Heaton ALT [Catalytic activity/Vol] 58 U/L Normal 21-72 [facility] Comment on above: Performed By: #### T 7, LIPA, TSH, AMADOU, CMP #### [facility] [address] [place] [address] Dr. Krystle Heaton Anion gap [Moles/Vol] 15.5 mmol/L Normal [facility] Comment on above: Performed By: #### T 7, LIPA, TSH, AMADOU, CMP #### [facility] [address] [place] [address] Dr. Krystle Heaton AST [Catalytic activity/Vol] 56 U/L Normal 17-59 [facility] Comment on above: Performed By: #### T 7, LIPA, TSH, AMADOU, CMP #### [facility] [address] [place] [address] Dr. Krystle Heaton Bilirubin [Mass/Vol] 0.7 mg/dL Normal 0.2-1.3 [facility] Comment on above: Performed By: #### T 7, LIPA, TSH, AMADOU, CMP #### [facility] [address] [place] [address] Dr. Krystle Heaton Calcium [Mass/Vol] 8.9 mg/dL Normal 8.4-10.2 [facility] Comment on above: Performed By: #### T 7, LIPA, TSH, AMADOU, CMP #### [facility] [address] [place] [address] Dr. Krystle Heaton Chloride [Moles/Vol] 100 mmol/L Normal 98-107 [facility] Comment on above: Performed By: #### T 7, LIPA, TSH, MAADOU, CMP #### [facility] [address] [place] [address] Dr. Krystle Heaton CO2 [Moles/Vol] 26.6 mmol/L Normal 22.0-30.[address] [facility] Comment on above: Performed By: #### T 7, LIPA, TSH, AMADOU, CMP #### [facility] [address] [place] [address] Dr. Krystle Heaton Creatinine [Mass/Vol] 1.12 mg/dL Normal 0.66-1.25 [facility] Comment on above: Performed By: #### T 7, LIPA, TSH, AMADOU, CMP #### [facility] [address] [place] [address] Dr. Krystle Heaton EGFR-AF GABONESE >60 Normal >=[address] [facility] Comment on above: Performed By: #### T 7, LIPA, TSH, AMADOU, CMP #### [facility] [address] [place] [address] Dr. Krystle Heaton EGFR-NON AF GABONESE >60 Normal >=60 [facility] Comment on above: Performed By: #### T 7, LIPA, TSH, AMADOU, CMP #### [facility] [address] [place] [address] Dr. Krystle Heaton Globulin (S) [Mass/Vol] 3.7 g/dL Normal [facility] Comment on above: Performed By: #### T 7, LIPA, TSH, AMADOU, CMP #### [facility] [address] [place] [address] Dr. Krystle Heaton Glucose [Mass/Vol] 101 mg/dL Normal 74-106 [facility] Comment on above: Performed By: #### T 7, LIPA, TSH, AMADOU, CMP #### [facility] [address] [place] [address] Dr. Krystle Heaton Potassium [Moles/Vol] 4.1 mmol/L Normal 3.4-5.0 [facility] Comment on above: Performed By: #### T 7, LIPA, TSH, AMADOU, CMP #### [facility] [address] [place] [address] Dr. Krystle Heaton Protein [Mass/Vol] 7.3 g/dL Normal 6.1-8.2 [facility] Comment on above: Performed By: #### T 7, LIPA, TSH, AMADOU, CMP #### [facility] [address] [place] [address] Dr. Krystle Heaton Sodium [Moles/Vol] 138 mmol/L Normal 137-145 [facility] Comment on above: Performed By: #### T 7, LIPA, TSH, AMADOU, CMP #### [facility] [address] [place] [address] Dr. Krystle Heaton Urea nitrogen [Mass/Vol] 17.0 mg/dL Normal 9.0-20.0 [facility] Comment on above: Performed By: #### T 7, LIPA, TSH, AMADOU, CMP #### [facility] [address] [place] [address] Dr. Krystle Heaton Urea nitrogen/Creatinine [Mass ratio] 15.2 mg/mg Normal [facility] Comment on above: Performed By: #### T 7, LIPA, TSH, AMADOU, CMP #### [facility] [address] [place] [address] Dr. Krystle Heaton TSHon 03-08-2021 TSH 1.781 uIU/mL Normal 0.470-4.680 [facility] Comment on above: Performed By: #### T 7, LIPA, TSH, AMADOU, CMP #### [facility] [address] [place] [address] Dr. Krystle Heaton TSH RANGE SEE BELOW Normal [facility] Comment on above: Result Comment: <0.3 4 UIU/ml HYPERTHYROID 0.34-5.60 UIU/ml EUTHYROID >5.60 UIU/ml HYPOTHYROID Performed By: #### T 7, LIPA, TSH, AMADOU, CMP #### [facility] [address] [place] [address] Dr. Krystle Heaton FERRITINon 02-03-2021 Ferritin [Mass/Vol] ng/mL Critically high 17.9-464.0 [facility] Comment on above: Performed By: #### C BC #### [facility] [address] [place] [address] Billy Devlin Covid-19 PCR (CVDTB)on SARS-CoV-2 (COVID-19) RNA JIMBO+probe Ql (Unsp spec) Not detected Normal NOT DETECTED [facility] Comment on above: Result Comment: This test is not yet approved or cleared by the [place] FDA. When there are no FDA-approved or cleared tests available, and other criteria are met, FDA can make tests available under an emergency access mechanism called an Emergency Use Authorization (EUA). The EUA for this test is supported by the [place] of Health and Human Service's (HHS's) declaration [...] T 7, LIPA, TSH, AMADOU, CMP #### [facility] [address] [place] [address] Dr. Krystle Heaton CBC AUTO DIFFon 01-06-2021 BASO # 0.0 103/ul Normal 0.0-0.1 [facility] Comment on above: Performed By: #### T 7, LIPA, TSH, AMADOU, CMP #### [facility] [address] [place] [address] Dr. Krystle Heaton Basophils/100 WBC (Bld) 1.0 % Normal 0.2-2.0 [facility] Comment on above: Performed By: #### T 7, LIPA, TSH, AMADOU, CMP #### [facility] [address] [place] [address] Dr. Krystle Heaton EO # 0.1 103/ul Normal 0.0-0.7 [facility] Comment on above: Performed By: #### T 7, LIPA, TSH, AMADOU, CMP #### [facility] [address] [place] [address] Dr. Krystle Heaton Eosinophils/100 WBC (Bld) 2.5 % Normal 0.9-7.0 [facility] Comment on above: Performed By: #### T 7, LIPA, TSH, AMADOU, CMP #### [facility] [address] [place] [address] Dr. Krystle Heaton Erythrocyte distribution width (RBC) [Ratio] 13.7 % Normal 11.0-15.0 [facility] Comment on above: Performed By: #### T 7, LIPA, TSH, AMADOU, CMP #### [facility] [address] [place] [address] Dr. Krystle Heaton Hematocrit (Bld) [Volume fraction] 44.1 % Normal 42.0-54.0 [facility] Comment on above: Performed By: #### T 7, LIPA, TSH, AMADOU, CMP #### [facility] [address] [place] [address] Dr. Krystle Heaton Hemoglobin (Bld) [Mass/Vol] 15.0 g/dL Normal 14.0-18.0 [facility] Comment on above: Performed By: #### T 7, LIPA, TSH, AMADOU, CMP #### [facility] [address] [place] [address] Dr. Krystle Heaton IG # 0.02 10e3/ul Normal 0.00-0.03 [facility] Comment on above: Performed By: #### T 7, LIPA, TSH, AMADOU, CMP #### [facility] [address] [place] [address] Dr. Krystle Heaton IG % 0.5 % Normal 0.0-0.5 [facility] Comment on above: Performed By: #### T 7, LIPA, TSH, AMADOU, CMP #### [facility] [address] [place] [address] Dr. Krystle Heaton LYMPH # 1.6 103/ul Normal 1.2-3.8 [facility] Comment on above: Performed By: #### T 7, LIPA, TSH, AMADOU, CMP #### [facility] [address] [place] [address] Dr. Krystle Heaton Lymphocytes/100 WBC (Bld) 40.7 % Normal 20.5-60.0 [facility] Comment on above: Performed By: #### T 7, LIPA, TSH, AMADOU, CMP #### [facility] [address] [place] [address] Dr. Krystle Heaton MANUAL DIFF REQ NO Normal [facility] Comment on above: Performed By: #### T 7, LIPA, TSH, AMADOU, CMP #### [facility] [address] [place] [address] Dr. Krystle Heaton MCH (RBC) [Entitic mass] 36.2 pg Critically high 25.9-34.0 [facility] Comment on above: Performed By: #### T 7, LIPA, TSH, AMADOU, CMP #### [facility] [address] [place] [address] Dr. Krystle Heaton MCHC (RBC) [Mass/Vol] 34.0 g/dL Normal 29.9-35.2 [facility] Comment on above: Performed By: #### T 7, LIPA, TSH, AMADOU, CMP #### [facility] [address] [place] [address] Dr. Krystle Heaton MCV (RBC) [Entitic vol] 106.5 fL Critically high 80.0-94.0 [facility] Comment on above: Performed By: #### T 7, LIPA, TSH, AMADOU, CMP #### [facility] [address] [place] [address] Dr. Krystle Heaton MONO # 0.3 103/ul Normal 0.3-0.8 [facility] Comment on above: Performed By: #### T 7, LIPA, TSH, AMADOU, CMP #### [facility] [address] [place] [address] Dr. Krystle Heaton Monocytes/100 WBC (Bld) 8.1 % Normal 1.7-12.0 [facility] Comment on above: Performed By: #### T 7, LIPA, TSH, AMADOU, CMP #### [facility] [address] [place] [address] Dr. Krystle Heaton NEUT # 1.9 103/ul Normal 1.4-6.5 [facility] Comment on above: Performed By: #### T 7, LIPA, TSH, AMADOU, CMP #### [facility] [address] [place] [address] Dr. Krystle Heaton Neutrophils/100 WBC (Bld) 47.2 % Normal 43.0-75.0 [facility] Comment on above: Performed By: #### T 7, LIPA, TSH, AMADOU, CMP #### [facility] [address] [place] [address] Dr. Krystle Heaton Platelet mean volume (Bld) [Entitic vol] 11.6 fL Normal 9.5-13.5 [facility] Comment on above: Performed By: #### T 7, LIPA, TSH, AMADOU, CMP #### [facility] [address] [place] [address] Dr. Krystle Heaton PLT 184 103/ul Normal 150-450 [facility] Comment on above: Performed By: #### T 7, LIPA, TSH, AMADOU, CMP #### [facility] [address] [place] [address] Dr. Krystle Heaton RBC 4.14 106/ul Critically low 4.70-6.10 [facility] Comment on above: Performed By: #### T 7, LIPA, TSH, AMADOU, CMP #### [facility] [address] [place] [address] Dr. Krystle Heaton WBC 4.0 103/ul Normal 4.0-11.0 [facility] Comment on above: Performed By: #### T 7, LIPA, TSH, AMADOU, CMP #### [facility] [address] [place] [address] Dr. Krystle Heaton FERRITINon 01-06-2021 Ferritin [Mass/Vol] ng/mL Critically high 17.9-464.0 [facility] Comment on above: Performed By: #### H BSANS #### [facility] [address] [place] [address] Billy Devlin CBC AUTO DIFFon 12-09-2020 BASO # 0.0 103/ul Normal 0.0-0.1 [facility] Comment on above: Performed By: #### T 7, LIPA, TSH, AMADOU, CMP #### [facility] [address] [place] [address] Dr. Krystle Heaton Basophils/100 WBC (Bld) 0.6 % Normal 0.2-2.0 [facility] Comment on above: Performed By: #### T 7, LIPA, TSH, AMADOU, CMP #### [facility] [address] [place] [address] Dr. Krystle Heaton EO # 0.1 103/ul Normal 0.0-0.7 [facility] Comment on above: Performed By: #### T 7, LIPA, TSH, AMADOU, CMP #### [facility] [address] [place] [address] Dr. Krystle Heaton Eosinophils/100 WBC (Bld) 2.6 % Normal 0.9-7.0 [facility] Comment on above: Performed By: #### T 7, LIPA, TSH, AMADOU, CMP #### [facility] [address] [place] [address] Dr. Krystle Heaton Erythrocyte distribution width (RBC) [Ratio] 13.0 % Normal 11.0-15.0 [facility] Comment on above: Performed By: #### T 7, LIPA, TSH, AMADOU, CMP #### [facility] [address] [place] [address] Dr. Krystle Heaton Hematocrit (Bld) [Volume fraction] 46.2 % Normal 42.0-54.0 [facility] Comment on above: Performed By: #### T 7, LIPA, TSH, AMADOU, CMP #### [facility] [address] [place] [address] Dr. Krystle Heaton Hemoglobin (Bld) [Mass/Vol] 16.0 g/dL Normal 14.0-18.0 [facility] Comment on above: Performed By: #### T 7, LIPA, TSH, AMADOU, CMP #### [facility] [address] [place] [address] Dr. Krystle Heaton IG # 0.01 10e3/ul Normal 0.00-0.03 [facility] Comment on above: Performed By: #### T 7, LIPA, TSH, AMADOU, CMP #### [facility] [address] [place] [address] Dr. Krystle Heaton IG % 0.2 % Normal 0.0-0.5 [facility] Comment on above: Performed By: #### T 7, LIPA, TSH, AMADOU, CMP #### [facility] [address] [place] [address] Dr. Krystle Heaton LYMPH # 1.3 103/ul Normal 1.2-3.8 [facility] Comment on above: Performed By: #### T 7, LIPA, TSH, AMADOU, CMP #### [facility] [address] [place] [address] Dr. Krystle Heaton Lymphocytes/100 WBC (Bld) 27.8 % Normal 20.5-60.0 [facility] Comment on above: Performed By: #### T 7, LIPA, TSH, AMADOU, CMP #### [facility] [address] [place] [address] Dr. Krystle Heaton MANUAL DIFF REQ NO Normal [facility] Comment on above: Performed By: #### T 7, LIPA, TSH, AMADOU, CMP #### [facility] [address] [place] [address] Dr. Krystle Heaton MCH (RBC) [Entitic mass] 34.9 pg Critically high 25.9-34.0 [facility] Comment on above: Performed By: #### T 7, LIPA, TSH, AMADOU, CMP #### [facility] [address] [place] [address] Dr. Krystle Heaton MCHC (RBC) [Mass/Vol] 34.6 g/dL Normal 29.9-35.2 [facility] Comment on above: Performed By: #### T 7, LIPA, TSH, AMADOU, CMP #### [facility] [address] [place] [address] Dr. Krystle Heaton MCV (RBC) [Entitic vol] 100.9 fL Critically high 80.0-94.0 [facility] Comment on above: Performed By: #### T 7, LIPA, TSH, AMADOU, CMP #### [facility] [address] [place] [address] Dr. Krystle Heaton MONO # 0.3 103/ul Normal 0.3-0.8 [facility] Comment on above: Performed By: #### T 7, LIPA, TSH, AMADOU, CMP #### [facility] [address] [place] [address] Dr. Krystle Heaton Monocytes/100 WBC (Bld) 6.6 % Normal 1.7-12.0 [facility] Comment on above: Performed By: #### T 7, LIPA, TSH, AMADOU, CMP #### [facility] [address] [place] [address] Dr. Krystle Heaton NEUT # 2.9 103/ul Normal 1.4-6.5 [facility] Comment on above: Performed By: #### T 7, LIPA, TSH, AMADOU, CMP #### [facility] [address] [place] [address] Dr. Krystle Heaton Neutrophils/100 WBC (Bld) 62.2 % Normal 43.0-75.0 [facility] Comment on above: Performed By: #### T 7, LIPA, TSH, AMADOU, CMP #### [facility] [address] [place] [address] Dr. Krystle Heaton Platelet mean volume (Bld) [Entitic vol] 11.0 fL Normal 9.5-13.5 [facility] Comment on above: Performed By: #### T 7, LIPA, TSH, AMADOU, CMP #### [facility] [address] [place] [address] Dr. Krystle Heaton PLT 171 103/ul Normal 150-450 [facility] Comment on above: Performed By: #### T 7, LIPA, TSH, AMADOU, CMP #### [facility] [address] [place] [address] Dr. Krystle Heaton RBC 4.58 106/ul Critically low 4.70-6.10 [facility] Comment on above: Performed By: #### T 7, LIPA, TSH, AMADOU, CMP #### [facility] [address] [place] [address] Dr. Krystle Heaton WBC 4.7 103/ul Normal 4.0-11.0 [facility] Comment on above: Performed By: #### T 7, LIPA, TSH, AMADOU, CMP #### [facility] [address] [place] [address] Dr. Krystle Heaton PROF 14(COMP METB)on 021 Albumin [Mass/Vol] 3.9 g/dL Normal 3.5-5.0 [facility] Comment on above: Performed By: #### T 7, LIPA, TSH, AMADOU, CMP #### [facility] [address] [place] [address] Dr. Krystle Heaton Albumin/Globulin [Mass ratio] 1.1 {ratio} Normal [facility] Comment on above: Performed By: #### T 7, LIPA, TSH, AMADOU, CMP #### [facility] [address] [place] [address] Dr. Krystle Heaton ALP [Catalytic activity/Vol] 86 U/L Normal 38-126 [facility] Comment on above: Performed By: #### T 7, LIPA, TSH, AMADOU, CMP #### [facility] [address] [place] [address] Dr. Krystle Heaton ALT [Catalytic activity/Vol] 87 U/L Critically high 21-72 [facility] Comment on above: Performed By: #### T 7, LIPA, TSH, AMADOU, CMP #### [facility] [address] [place] [address] Dr. Krystle Heaton Anion gap [Moles/Vol] 15.7 mmol/L Normal [facility] Comment on above: Performed By: #### T 7, LIPA, TSH, AMADOU, CMP #### [facility] [address] [place] [address] Dr. Krystle Heaton AST [Catalytic activity/Vol] 70 U/L Critically high 17-59 [facility] Comment on above: Performed By: #### T 7, LIPA, TSH, AMADOU, CMP #### [facility] [address] [place] [address] Dr. Krystle Heaton Bilirubin [Mass/Vol] 1.4 mg/dL Critically high 0.2-1.3 [facility] Comment on above: Performed By: #### T 7, LIPA, TSH, AMADOU, CMP #### [facility] [address] [place] [address] Dr. Krystle Heaton Calcium [Mass/Vol] 9.3 mg/dL Normal 8.4-10.2 [facility] Comment on above: Performed By: #### T 7, LIPA, TSH, AMADOU, CMP #### [facility] [address] [place] [address] Dr. Krystle Heaton Chloride [Moles/Vol] 102 mmol/L Normal 98-107 [facility] Comment on above: Performed By: #### T 7, LIPA, TSH, AMADOU, CMP #### [facility] [address] [place] [address] Dr. Krystle Heaton CO2 [Moles/Vol] 26.5 mmol/L Normal 22.0-30.[address] [facility] Comment on above: Performed By: #### T 7, LIPA, TSH, AMADOU, CMP #### [facility] [address] [address] [address] Krystle Heaton Creatinine [Mass/Vol] 1.27 mg/dL Critically high 0.66-1.25 [facility] Comment on above: Performed By: #### T 7, LIPA, TSH, AMADOU, CMP #### [facility] [address] [address] [address] Krystle Heaton EGFR-AF GABONESE >60 Normal >=60 [facility] Comment on above: Performed By: #### T 7, LIPA, TSH, AMADOU, CMP #### [facility] [address] [address] [address] Krystle Heaton EGFR-NON AF GABONESE =60 Normal >=60 [facility] Comment on above: Performed By: #### T 7, LIPA, TSH, AMADOU, CMP #### [facility] [address] [place] [address] Dr. Krystle Heaton Globulin (S) [Mass/Vol] 3.5 g/dL Normal [facility] Comment on above: Performed By: #### T 7, LIPA, TSH, AMADOU, CMP #### [facility] [address] [place] [address] Dr. Krystle Heaton Glucose [Mass/Vol] 120 mg/dL Critically high 74-106 [facility] Comment on above: Performed By: #### T 7, LIPA, TSH, AMADOU, CMP #### [facility] [address] [place] [address] Dr. Krystle Heaton Potassium [Moles/Vol] 4.2 mmol/L Normal 3.4-5.0 [facility] Comment on above: Performed By: #### T 7, LIPA, TSH, AMADOU, CMP #### [facility] [address] [address] [address] Krystle Heaton Protein [Mass/Vol] 7.4 g/dL Normal 6.1-8.2 [facility] Comment on above: Performed By: #### T 7, LIPA, TSH, AMADOU, CMP #### [facility] [address] [place] [address] Dr. Krystle Heaton Sodium [Moles/Vol] 140 mmol/L Normal 137-145 [facility] Comment on above: Performed By: #### T 7, LIPA, TSH, AMADOU, CMP #### [facility] [address] [place] [address] Dr. Krystle Heaton Urea nitrogen [Mass/Vol] 12.0 mg/dL Normal 9.0-20.0 [facility] Comment on above: Performed By: #### T 7, LIPA, TSH, AMADOU, CMP #### [facility] [address] [place] [address] Dr. Krystle Heaton Urea nitrogen/Creatinine [Mass ratio] 9.4 mg/mg Normal [facility] Comment on above: Performed By: #### T 7, LA TSH, AMADOU, CMP #### [facility] [address] [place] [address] Dr. Krystle Heaton PROTIMEon 12-09-2020 INR Coag (PPP) [Relative time] 0.96 {INR} Normal [facility] Comment on above: Performed By: #### H BSANS #### [facility] [address] [place] [address] Billy Devlin INR GUIDELINES SEE BELOW Normal [facility] Comment on above: Result Comment: MOUNA RED INR: 2.0 - 3.0 CONDITIONS NOT LISTED BELOW 2.5 - 3.5 FOR PROSTHETIC HEART VALVE REPLACEMENT 2.5 - 3.5 RECURRENT THROMBOSIS Performed By: #### H BSANS #### [facility] [address] [place] [address] Billy Devlin PT Coag (PPP) [Time] 10.5 s Normal 9.0-11.6 [facility] Comment on above: Performed By: #### H BSANS #### [facility] [address] [place] [address] Billy Devlin US SINGLE QUAD RT UPPERon [...] KRISTEN GODINEZ Date: 2020-12-09 10:23 Normal [facility] Encounters Encounter Date Encounter Type Care Provider Facility Start: 05-26-2024 End: 05-26-2024 ambulatory RASHAWN VELÁZQUEZ Not Available Start: 05-24-2024 End: 05-24-2024 ambulatory DARIEN WARE Not Available Start: 04-03-2022 End: 04-03-2022 ambulatory Magaly Sewell Facility:[facility] Start: 11-26-2021 End: 11-27-[address] GENEVIEVE ARREOLA Facility:[facility] Start: 11-15-2021 End: 11-15-[address] GENEVIEVE ARREOLA Facility:[facility] Start: 10-08-2021 End: 10-09-[address] AMADOU BROWN Facility:[facility] Start: 09-10-2021 End: 09-11-[address] AMADOU BROWN Facility:[facility] Start: 08-15-2021 End: 08-16-[address] AMADOU BROWN Facility:[facility] Start: 08-13-2021 Encounter for preprocedural laboratory examination DR DOCTOR PALUMBO [facility] Start: 08-10-2021 AUDIT No PCP None [facility]-Gastroe [...] ne w 45 minutes No PCP None [facility] [address] [facility] Work Phone: Start: 04-06-2021 [...] No PCP None [facility] enterology[facility] [address] [facility] Work Phone: Procedures Date Procedure Procedure Detail Performing Clinician Biopsy of liver No PCP None Repair of musculoten dinous cuff of shoulder No PCP None Payers Date Payer Category Payer Unknown [id number] 1970 Unknown [id number] 2.16.84 [id number] 1970 Unknown [id number] 2.16.84 0.1.183074.3.579.2.593 1969 Unknown [id number] 2.16.84 0.1.663998.3.579.2.593 1969 Unknown [id number] 2.16.84 0.1.631303.3.579.2.593 1969 Unknown [id number] 2.16.84 0.1.165427.3.579.2.593 1969 Unknown [id number] 2.16.84 0.1.086465.3.579.2.593 1969 Unknown [id number] 2.16.84 0.1.680685.3.579.2.593 1969 Unknown [id number] 2.16.84 0.1.567766.3.579.2.593 1969 Unknown [id number] 2.16.84 0.1.225364.3.579.2.593 1969 Unknown [id number] 2.16.84 0.1.910800.3.579.2.593 1969 Unknown [id number] 2.16.84 0.1.470945.3.579.2.593 1969 Unknown [id number] 2.16.84 0.1.445986.3.579.2.593 1969 Unknown [id number] 2.16.84 0.1.060686.3.579.2.593 1969 Unknown [id number] 2.16.84 0.1.080130.3.579.2.593 1969 Unknown [id number] 2.16.84 0.1.890579.3.579.2.593 1969 Unknown [id number] 2.16.84 0.1.337938.3.579.2.593 1969 Unknown [id number] 2.16.84 0.1.274887.3.579.2.593 1969 Unknown [id number] 2.16.84 0.1.561068.3.579.2.593 1969 Unknown [id number] 2.16.84 0.1.632829.3.579.2.593 1969 Unknown [id number] 2.16.84 0.1.256366.3.579.2.593 1969 Unknown [id number] 2.16.84 0.1.238144.3.579.2.593 1969 Unknown [id number] 2.16.84 0.1.598018.3.579.2.593 1969 Unknown [id number] 2.16.84 0.1.010571.3.579.2.1259 1969 Unknown [id number] 2.16.84 0.1.438003.3.579.2.1259 1959 Self-pay [id number] Self-pay 1959 Unknown [id number] Unknown ANTHEM Unknown [id number] 2.16.84 0.1.222944.3.579.2.593 Unknown [id number] 2.16.84 0.1.859722.3.579.2.593 Unknown [id number] 2.16.8 40.1.381193.3.579.2.531 Social History Date Type Detail Facility Former smoker Former smoker -[facility] [address] [facility] Work Phone: Start: 1970 Sex Assigned At Male [facility] Clinical Note 07-31-2021 Note Date & [...] report Procedure performed by: Sandy Roland MD Magnetic Locater(s): Dee Lopes Md Estimated Blood Loss (mL): [...] Last Updated: 02-Aug-2021 13:04 by Sandy Roland) [facility] Clinical Note 05-08-2021 Note Date [...] grossly normal anatomy Procedure performed by: me Magnetic Locater(s): none Estimated Blood Loss (mL): none Specimen: [...] Last Updated: 08-May-2021 11:58 by Uri Bacon) [facility] Evaluation note Note Date & Type Note Facility Evaluation note No assessment information [facility] Work Phone: History of Present [...] no lower extremity edema.Symptom History:Modifying Factors:Associated Symptoms: QH-Bytnstjbkg[facility]rowoc[facility] [address] [facility] Work Phone: Chief Complaint [...] section and content) DATE CREATED AUTHOR 04/14/2021 [employer] DATE CREATED AUTHOR AUTHOR'S ORGANIZ ATION 05/15/2021 [facility] DATE CREATED AUTHOR AUTHOR'S ORGANIZ ATION 11/29/2021 [facility] DATE CREATED AUTHOR AUTHOR'S ORGANIZ ATION 04/15/2022 [facility] DATE CREATED AUTHOR AUTHOR'S ORGANIZ ATION 01/28/2023 [facility] DATE CREATED AUTHOR AUTHOR'S ORGANIZ ATION 05/24/2023 [facility] DATE CREATED AUTHOR AUTHOR'S ORGANIZ ATION 05/28/2024 [facility] EPIC Goals (unrecognized section and [...] BE BASED ON THE PRIMARY CLINICAL RECORDS. [facility] provides no warranty or guarantee of the accuracy or completeness of information in this document.
--- NOTE | 2024-06-22 15:01 | PM.PRESUREVA ---
History of Present Illness History of Present Illness Chief complaint: Right ETD Narrative: Patient presents for preadmission testing. The patient states he had gradual hearing loss on the right side with no preceding illness or injury. The patient states he has no pain. The patient also reports he is a recovering alcoholic and is 3 months sober at this time. Review of Systems ROS Narrative REVIEW OF SYSTEMS: Negative except as stated in HPI, ten or more systems reviewed. Constitutional: No fever, chills, weakness ENT: No sore throat or epistaxis Cardiovascular: No edema, chest pain, palpitations, or activity intolerance Respiratory: No shortness of breath, cough, or wheezing Musculoskeletal: No joint pain or swelling Gastrointestinal: No abdominal pain, constipation, diarrhea, or vomiting Genitourinary: No dysuria or hematuria Neurological: No numbness, tingling, weakness, or headache Psychiatric: No mood changes [facility] Medical History (Updated 06/22/24 @ 14:51 by Cristal Tolliver NP) Depression ?F32.A - Depression, unspecified (ICD-10) Panic attacks ?F41.0 - Panic disorder [episodic paroxysmal anxiety] (ICD-10) Anxiety ?F41.9 - Anxiety disorder, unspecified (ICD-10) Hypothyroidism ?E03.9 - Hypothyroidism, unspecified (ICD-10) 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) ?F10.21 - Alcohol dependence, in remission (ICD-10) Rotator cuff tear ?M75.100 - Unspecified rotator cuff tear or rupture of unspecified shoulder, not specified as traumatic (ICD-10) Heart palpitations ?R00.2 - Palpitations (ICD-10) Diverticulitis ?K57.92 - Diverticulitis of intestine, part unspecified, without perforation or abscess without bleeding (ICD-10) Hepatic fibrosis ?K74.00 - Hepatic fibrosis, unspecified (ICD-10) Gastroenteritis ?K52.9 - Noninfective gastroenteritis and colitis, unspecified (ICD-10) Serous otitis media ?H65.90 - Unspecified nonsuppurative otitis media, unspecified ear (ICD-10) Post-traumatic osteoarthritis, right shoulder ?M19.111 - Post-traumatic osteoarthritis, right shoulder (ICD-10) Hypertension ?I10 - Essential (primary) hypertension (ICD-10) High cholesterol ?E78.00 - Pure hypercholesterolemia, unspecified (ICD-10) Hereditary hemochromatosis ?E83.110 - Hereditary hemochromatosis (ICD-10) Fatty liver ?K76.0 - Fatty (change of) liver, not elsewhere classified (ICD-10) Hearing loss ?H91.90 - Unspecified hearing loss, unspecified ear (ICD-10) Anemia ?D64.9 - Anemia, unspecified (ICD-10) Acute kidney injury ?N17.9 - Acute kidney failure, unspecified (ICD-10) Abnormal AST and ALT ?R74.8 - Abnormal levels of other serum enzymes (ICD-10) Dysfunction of right eustachian tube ?H69.91 - Unspecified Eustachian tube disorder, right ear (ICD-10) Surgical History (Updated 06/22/24 @ 14:36 by Cristal Tolliver NP) H/O shoulder surgery ?Z98.890 - Other specified postprocedural states (ICD-10) History of liver biopsy ?Z98.890 - Other specified postprocedural states (ICD-10) Family History (Updated 06/22/24 @ 14:34 by Cristal Tolliver NP) Other Family history of cancer Family history of diabetes mellitus Family history of hypertension Heart disease Social History (Updated 06/22/24 @ 14:46 by Cristal Tolliver NP) Within the past year, how often did you have a drink containing alcohol: never Score interpretation: A score less than 4 is consistent with normal alcohol consumption. 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 Highest level of school completed/degree received: Associate degree: occupational, technical, vocational program Meds Home Medications and Allergies Home Medications ?Medication ?Instructions ?Recorded ?Confirmed ?Type acamprosate 333 mg tablet,delayed 999 mg PO Q8H 06/22/24 06/22/24 History release carvedilol 6.25 mg tablet 6.25 mg PO QPM 06/22/24 06/22/24 History liothyronine 5 mcg tablet 5 mcg PO DAILY 06/22/24 06/22/24 History mirtazapine 45 mg tablet 45 mg PO DAILY 06/22/24 06/22/24 History risperidone 1 mg tablet 1 mg PO DAILY 06/22/24 06/22/24 History rosuvastatin 5 mg tablet 5 mg PO DAILY 06/22/24 06/22/24 History Allergies Allergy/AdvReac Type Severity Reaction Status Date / Time morphine Allergy Eye Verified 06/22/24 14:37 swelling Exam Narrative Exam Narrative: Constitutional: Awake, alert, comfortable, well-appearing, nontoxic, interactive, vital signs as charted Head: Normocephalic, atraumatic Eyes: Conjunctiva and lids normal to inspection, pupils normal ENT: Right tympanic membrane obscured by cerumen, left tympanic membrane pearly bush, naris patent, posterior oropharynx clear, oral mucosa moist, poor dentition Neck: Supple, normal appearance, normal range of motion, no meningeal signs, no lymphadenopathy Respiratory: No respiratory distress, breath sounds clear Cardiovascular: Regular rate and rhythm, strong and regular heart tones Musculoskeletal: Normal gait, no swelling or edema Skin: No rashes or induration, no lesions, only visible skin inspected Neuro: No neurological deficits, normal sensation Psychiatric: Oriented ?3, normal affect Assessment and Plan Assessment and Plan (1) Hearing loss: (2) Dysfunction of right eustachian tube: Plan Right myringotomy and insertion of ventilation tube, T-tube, nasal endoscopy with possible biopsy scheduled with Dr. Kat July 06, 2024.
[2024-06-22 15:18] LABS: Basophils Percent Auto 0.8 % (0.2-2.0); Eosinophils Absolute Auto 0.2 10^3/uL (0.0-0.7); Eosinophils Percent Auto 4.6 % (0.9-7.0); Hemoglobin 13.3 g/dL (14.0-18.0); Immature Granulocytes Abs Auto 0.05 10^3/uL (0.00-0.03); Lymphocytes Percent Auto 39.7 % (20.5-60.0); Mean Corpuscular HGB Conc 34.1 g/dL (29.9-35.2); Mean Corpuscular Hemoglobin 31.7 pg (25.9-34.0); Mean Corpuscular Volume 93.1 fL (80.0-94.0); Mean Platelet Volume 12.4 fL (9.5-13.5); Monocytes Absolute Auto 0.5 10^3/uL (0.3-0.8); Monocytes Percent Auto 10.6 % (1.7-12.0); Neutrophils Absolute Auto 2.2 10^3/uL (1.4-6.5); Neutrophils Percent Auto 43.3 % (43.0-75.0); Platelet Count 82 10^3/uL (150-450); Red Blood Count 4.19 10^6/uL (4.70-6.10); Red Cell Distribution Width 13.4 % (11.0-15.0)
[2024-06-22 15:25] LABS: INR 1.13; Partial Thromboplastin Time 30.3 sec (22.3-36.2); Prothrombin Time 11.8 sec (9.0-11.6)
== END 2024-06-22 14:24 | disposition home or self-care (01) ==
LOC: PST 14:24
PROVIDERS: PCP Family Medicine; Visit Provider Otolaryngology
DX: Z01.810 Encounter for preprocedural cardiovascular examination (principal); Z01.812 Encounter for preprocedural laboratory examination; Z01.818 Encounter for other preprocedural examination; H69.91 Unspecified Eustachian tube disorder, right ear
CPT/HCPCS: 80048; 80076; 85025; 85610; 85730; 93005; G0463

== ENCOUNTER 2024-06-29 13:27 | Outpatient (OUT) | payer OTHER, SELFPAY ==
[2024-06-29 13:41] LABS: Basophils Percent Auto 0.6 % (0.2-2.0); Eosinophils Absolute Auto 0.3 10^3/uL (0.0-0.7); Eosinophils Percent Auto 5.2 % (0.9-7.0); Hematocrit 41.3 % (42.0-54.0); Hemoglobin 13.8 g/dL (14.0-18.0); Immature Granulocytes Abs Auto 0.01 10^3/uL (0.00-0.03); Immature Granulocytes Pct Auto 0.2 % (0.0-0.5); Lymphocytes Absolute Auto 1.8 10^3/uL (1.2-3.8); Lymphocytes Percent Auto 36.7 % (20.5-60.0); Mean Corpuscular HGB Conc 33.4 g/dL (29.9-35.2); Mean Corpuscular Hemoglobin 31.6 pg (25.9-34.0); Mean Corpuscular Volume 94.5 fL (80.0-94.0); Mean Platelet Volume 12.3 fL (9.5-13.5); Monocytes Absolute Auto 0.6 10^3/uL (0.3-0.8); Monocytes Percent Auto 11.5 % (1.7-12.0); Neutrophils Absolute Auto 2.3 10^3/uL (1.4-6.5); Neutrophils Percent Auto 45.8 % (43.0-75.0); Platelet Count 87 10^3/uL (150-450); Red Blood Count 4.37 10^6/uL (4.70-6.10); Red Cell Distribution Width 13.5 % (11.0-15.0)
== END 2024-06-29 13:28 | disposition home or self-care (01) ==
LOC: LAB 13:27
PROVIDERS: PCP Family Medicine; Visit Provider Family Medicine
DX: D69.6 Thrombocytopenia, unspecified (principal)
CPT/HCPCS: 36415; 85025

== ENCOUNTER 2024-07-06 08:58 | Day surgery (SDC) | payer OTHER, SELFPAY ==
[2024-06-22 14:59] VITALS: BP 126/87; PULSE 71; TEMP 36.4; O2SAT 96; BMI 27.6
[2024-07-06] VITALS (7 sets, daily range): BP systolic 114–128; BP diastolic 78–89; PULSE 66–78; TEMP 36.3–36.6; O2SAT 95–98; BMI 27.6
--- NOTE | 2024-07-06 | OP_ITS ---
OPERATION DATE: 07/06/2024 PRIMARY CARE PHYSICIAN: Vern Tong M.D. SURGEON: Vivienne Kat M.D. PREOPERATIVE DIAGNOSIS: Eustachian tube dysfunction and otitis media with effusion. POSTOPERATIVE DIAGNOSIS: Eustachian tube dysfunction and otitis media with effusion PROCEDURE: Right myringotomy and tube and a nasal endoscopy. ANESTHESIA: General LMA. COMPLICATIONS: None. FINDINGS: Right serous effusion and no significant nasopharyngeal pathology. INDICATIONS: This 54-year-old man presented with right otitis media with effusion, unresponsive to aggressive medical management. He presented for placement of a tympanostomy tube and also nasal endoscopy to ensure that there was no nasopharyngeal carcinoma or lymphoma that had caused his otitis media with effusion. PROCEDURE: Patient identified in the holding area and taken back to the OR where he was placed in the supine position. After induction of general anesthesia, an Afrin soaked pledget was placed in the right side of the nose. Then, the right ear was approached with the otomicroscope. Cerumen cleaned from the canal using a cerumen curette and the canal was prepped with isopropyl alcohol. The ear was then suctioned and an anterior radial myringotomy was performed, and a modified Nickolas?s T-tube folded, inserted through the myringotomy and opened in the middle ear using microdissection. Then, attention was returned to the nose. The Afrin soaked pledgets were removed and 30 degree nasal endoscope was used to examine the nasopharynx. There was no pathology evidence. The patient was then awakened and taken to the recovery room in good condition. DORI
--- OUTSIDE RECORDS SUMMARY | 2024-07-06 09:16 | XMS_ITS | CCD ---
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 AMYLASEon 11-26-2021 Amylase [Catalytic activity/Vol] 53 U/L Normal 31-110 [facility] Comment on above: Performed By: #### T 7, LIPA, TSH, AMADOU, CMP #### [facility] [address] [place] [id number] [address] Krystle Heaton CBC AUTO DIFFon 11-26-2021 BASO # 0.0 103/ul Normal 0.0-0.1 [facility] Comment on above: Performed By: #### F ERR #### [facility] [address] [place] [address] Dr. Krystle Heaton Basophils/100 WBC (Bld) 0.6 % Normal 0.2-2.0 [facility] Comment on above: Performed By: #### F ERR #### [facility] [address] [place] [address] Dr. Krystle Heaton EO # 0.1 103/ul Normal 0.0-0.7 [facility] Comment on above: Performed By: #### F ERR #### [facility] [address] [place] [address] Dr. Krystle Heaton Eosinophils/100 WBC (Bld) 2.7 % Normal 0.9-7.0 [facility] Comment on above: Performed By: #### F ERR #### [facility] [address] [place] [address] Dr. Krystle Heaton Erythrocyte distribution width (RBC) [Ratio] 16.0 % Critically high 11.0-15.0 [facility] Comment on above: Performed By: #### F ERR #### [facility] [address] [place] [address] Dr. Krystle Heaton Hematocrit (Bld) [Volume fraction] 42.8 % Normal 42.0-54.0 [facility] Comment on above: Performed By: #### F ERR #### [facility] [address] [place] [address] Dr. Krystle Heaton Hemoglobin (Bld) [Mass/Vol] 13.0 g/dL Critically low 14.0-18.0 [facility] Comment on above: Performed By: #### F ERR #### [facility] [address] [place] [address] Dr. Krystle Heaton IG # 0.02 10e3/ul Normal 0.00-0.03 [facility] Comment on above: Performed By: #### F ERR #### [facility] [address] [place] [address] Dr. Krystle Heaton IG % 0.4 % Normal 0.0-0.5 [facility] Comment on above: Performed By: #### F ERR #### [facility] [address] [place], [place] [address] Dr. Krystle Heaton LYMPH # 0.9 103/ul Critically low 1.2-3.8 [facility] Comment on above: Performed By: #### F ERR #### [facility] [address] [place] [address] Dr. Krystle Heaton Lymphocytes/100 WBC (Bld) 19.1 % Critically low 20.5-60.0 [facility] Comment on above: Performed By: #### F ERR #### [facility] [address] [place] [address] Dr. Krystle Heaton MANUAL DIFF REQ NO Normal [facility] Comment on above: Performed By: #### F ERR #### [facility] [address] [place] [address] Dr. Krystle Heaton MCH (RBC) [Entitic mass] 27.7 pg Normal 25.9-34.0 [facility] Comment on above: Performed By: #### F ERR #### [facility] [address] [place] [address] Dr. Krystle Heaton MCHC (RBC) [Mass/Vol] 30.4 g/dL Normal 29.9-35.2 [facility] Comment on above: Performed By: #### F ERR #### [facility] [address] [place] [address] Dr. Krystle Heaton MCV (RBC) [Entitic vol] 91.1 fL Normal 80.0-94.0 [facility] Comment on above: Performed By: #### F ERR #### [facility] [address] [place] [address] Dr. Krystle Heaton MONO # 0.5 103/ul Normal 0.3-0.8 [facility] Comment on above: Performed By: #### F ERR #### [facility] [address] [place] [address] Dr. Krystle Heaton Monocytes/100 WBC (Bld) 10.4 % Normal 1.7-12.0 [facility] Comment on above: Performed By: #### F ERR #### [facility] [address] [place] [address] Dr. Krystle Heaton NEUT # 3.2 103/ul Normal 1.4-6.5 [facility] Comment on above: Performed By: #### F ERR #### [facility] [address] [place] [address] Dr. Krystle Heaton Neutrophils/100 WBC (Bld) 66.8 % Normal 43.0-75.0 [facility] Comment on above: Performed By: #### F ERR #### [facility] [address] [place] [address] Dr. Krystle Heaton Platelet mean volume (Bld) [Entitic vol] 11.3 fL Normal 9.5-13.5 [facility] Comment on above: Performed By: #### F ERR #### [facility] [address] [place] [address] Dr. Krystle Heaton PLT 177 103/ul Normal 150-450 [facility] Comment on above: Performed By: #### F ERR #### [facility] [address] [place] [address] Dr. Krystle Heaton RBC 4.70 106/ul Normal 4.70-6.10 [facility] Comment on above: Performed By: #### F ERR #### [facility] [address] [place] [address] Dr. Krystle Heaton WBC 4.8 103/ul Normal 4.0-11.0 [facility] Comment on above: Performed By: #### F ERR #### [facility] [address] [place] [address] Dr. Krystle Heaton FERRITINon 11-26-2021 Ferritin [Mass/Vol] 63.0 ng/mL Normal 17.9-464.0 [facility] Comment on above: Performed By: #### C BC #### [facility] [address] [place] [address] Billy Devlin FREE THYROXINE INDEX T7on FTI 2.14 Normal [facility] Comment on above: Performed By: #### T 7, LIPA, TSH, AMADOU, CMP #### [facility] [address] [place] [address] Dr. Krystle Heaton T3U 34.0 % Normal 23.5-40.5 [facility] Comment on above: Performed By: #### T 7, LIPA, TSH, AMADOU, CMP #### [facility] [address] [place] [address] Dr. Krystle Heaton T4 [Mass/Vol] 6.30 ug/dL Normal 5.53-11.00 [facility] Comment on above: Performed By: #### T 7, LIPA, TSH, AMADOU, CMP #### [facility] [address] [place] [address] Dr. Krystle Heaton LIPASEon 11-26-2021 Lipase [Catalytic activity/Vol] 115.0 U/L Normal 23.0-300.0 [facility] Comment on above: Performed By: #### T 7, LIPA, TSH, AMADOU, CMP #### [facility] [address] [place] [address] Dr. Krystle Heaton PROF 14(COMP METB)on 022 Albumin [Mass/Vol] 3.6 g/dL Normal 3.5-5.[address] [facility] Comment on above: Performed By: #### T 7, LIPA, TSH, AMADOU, CMP #### [facility] [address] [place] [address] Dr. Krystle Heaton Albumin/Globulin [Mass ratio] 0.9 {ratio} Normal [facility] Comment on above: Performed By: #### T 7, LIPA, TSH, AMADOU, CMP #### [facility] [address] [place] [address] Dr. Krystle Heaton ALP [Catalytic activity/Vol] 94 U/L Normal 38-126 [facility] Comment on above: Performed By: #### T 7, LIPA, TSH, AMADOU, CMP #### [facility] [address] [place] [address] Dr. Krystle Heaton ALT [Catalytic activity/Vol] 103 U/L Critically high 21-72 [facility] Comment on above: Performed By: #### T 7, LIPA, TSH, AMADOU, CMP #### [facility] [address] [place] [address] Dr. Krystle Heaton Anion gap [Moles/Vol] 12.8 mmol/L Normal [facility] Comment on above: Performed By: #### T 7, LIPA, TSH, AMADOU, CMP #### [facility] [address] [place] [address] Dr. Krystle Heaton AST [Catalytic activity/Vol] 148 U/L Critically high 17-59 [facility] Comment on above: Performed By: #### T 7, LIPA, TSH, AMADOU, CMP #### [facility] [address] [place] [address] Dr. Krystle Heaton Bilirubin [Mass/Vol] 1.2 mg/dL Normal 0.2-1.3 [facility] Comment on above: Performed By: #### T 7, LIPA, TSH, AMADOU, CMP #### [facility] [address] [place] [address] Dr. Krystle Heaton Calcium [Mass/Vol] 9.1 mg/dL Normal 8.4-10.2 [facility] Comment on above: Performed By: #### T 7, LIPA, TSH, AMADOU, CMP #### [facility] [address] [place] [address] Dr. Krystle Heaton Chloride [Moles/Vol] 100 mmol/L Normal 98-107 [facility] Comment on above: Performed By: #### T 7, LIPA, TSH, AMADOU, CMP #### [facility] [address] [place] [address] Dr. Krystle Heaton CO2 [Moles/Vol] 26.7 mmol/L Normal 22.0-30.0 [facility] Comment on above: Performed By: #### T 7, LIPA, TSH, AMADOU, CMP #### [facility] [address] [place] [address] Dr. Krystle Heaton Creatinine [Mass/Vol] 0.94 mg/dL Normal 0.66-1.25 [facility] Comment on above: Performed By: #### T 7, LIPA, TSH, AMADOU, CMP #### [facility] [address] [place] [address] Dr. Krystle Heaton EGFR-AF MALAYSIAN >60 Normal >=60 [facility] Comment on above: Performed By: #### T 7, LIPA, TSH, AMADOU, CMP #### [facility] [address] [place] [address] Dr. Krystle Heaton EGFR-NON AF MALAYSIAN >60 Normal >=60 [facility] Comment on above: Performed By: #### T 7, LIPA, TSH, AMADOU, CMP #### [facility] [address] [place] [address] Dr. Krystle Heaton Globulin (S) [Mass/Vol] 4.0 g/dL Normal [facility] Comment on above: Performed By: #### T 7, LIPA, TSH, AMADOU, CMP #### [facility] [address] [place] [address] Dr. Krystle Heaton Glucose [Mass/Vol] 112 mg/dL Critically high 74-106 [facility] Comment on above: Performed By: #### T 7, LIPA, TSH, AMADOU, CMP #### [facility] [address] [place] [address] Dr. Krystle Heaton Potassium [Moles/Vol] 4.5 mmol/L Normal 3.4-5.0 [facility] Comment on above: Performed By: #### T 7, LIPA, TSH, AMADOU, CMP #### [facility] [address] [place] [address] Dr. Krystle Heaton Protein [Mass/Vol] 7.6 g/dL Normal 6.1-8.[address] [facility] Comment on above: Performed By: #### T 7, LIPA, TSH, AMADOU, CMP #### [facility] [address] [place] [address] Dr. Krystle Heaton Sodium [Moles/Vol] 135 mmol/L Critically low 137-145 [facility] Comment on above: Performed By: #### T 7, LIPA, TSH, AMADOU, CMP #### [facility] [address] [place] [address] Dr. Krytsle Heaton Urea nitrogen [Mass/Vol] 5.0 mg/dL Critically low 9.0-20.0 [facility] Comment on above: Performed By: #### T 7, LIPA, TSH, AMADOU, CMP #### [facility] [address] [place] [address] Dr. Krystle Heaton Urea nitrogen/Creatinine [Mass ratio] 5.3 mg/mg Normal [facility] Comment on above: Performed By: #### T 7, LIPA, TSH, AMADOU, CMP #### [facility] [address] [place] [address] Dr. Krystle Heaton TSHon 11-26-2021 TSH 1.842 uIU/mL Normal 0.470-4.680 [facility] Comment on above: Performed By: #### T 7, LIPA, TSH, AMADOU, CMP #### [facility] [address] [place] [address] Dr. Krystle Heaton TSH RANGE SEE BELOW Normal [facility] Comment on above: Result Comment: <0.3 4 UIU/ml HYPERTHYROID 0.34-5.60 UIU/ml EUTHYROID >5.60 UIU/ml HYPOTHYROID Performed By: #### T 7, LIPA, TSH, AMADOU, CMP #### [facility] [address] [place] [address] Dr. Krystle Heaton [facility] SARS-CoV-2 (COVID-19) RNA JIMBO+probe Ql (Unsp spec) Not detected Normal NOT DETECTED [facility] Comment on above: Result Comment: This test is not yet approved or cleared by the [place] FDA. When there are no FDA-approved or cleared tests available, and other criteria are met, FDA can make tests available under an emergency access mechanism called an Emergency Use Authorization (EUA). The EUA for this test is supported by the [employer] of Health and Human Service's (HHS's) declaration [...] SARS-CoV-2. Performed By: #### F ERR #### [facility] [address] [place] [address] Dr. Krystle Heaton CBC AUTO DIFFon 10-08-2021 BASO # 0.0 103/ul Normal 0.0-0.1 [facility] Comment on above: Performed By: #### T 7, LIPA, TSH, AMADOU, CMP #### [facility] [address] [place] [address] Dr. Krystle Heaton Basophils/100 WBC (Bld) 0.7 % Normal 0.2-2.0 [facility] Comment on above: Performed By: #### T 7, LIPA, TSH, AMADOU, CMP #### [facility] [address] [place] [address] Dr. Krystle Heaton EO # 0.2 103/ul Normal 0.0-0.7 [facility] Comment on above: Performed By: #### T 7, LIPA, TSH, AMADOU, CMP #### [facility] [address] [place] [address] Dr. Krystle Heaton Eosinophils/100 WBC (Bld) 3.6 % Normal 0.9-7.0 [facility] Comment on above: Performed By: #### T 7, LIPA, TSH, AMADOU, CMP #### [facility] [address] [place] [address] Dr. Krystle Heaton Erythrocyte distribution width (RBC) [Ratio] 16.0 % Critically high 11.0-15.0 [facility] Comment on above: Performed By: #### T 7, LIPA, TSH, AMADOU, CMP #### [facility] [address] [place] [address] Dr. Krystle Heaton Hematocrit (Bld) [Volume fraction] 38.7 % Critically low 42.0-54.0 [facility] Comment on above: Performed By: #### T 7, LIPA, TSH, AMADOU, CMP #### [facility] [address] [place] [address] Dr. Krystle Heaton Hemoglobin (Bld) [Mass/Vol] 11.7 g/dL Critically low 14.0-18.0 [facility] Comment on above: Performed By: #### T 7, LIPA, TSH, AMADOU, CMP #### [facility] [address] [place] [address] Dr. Krystle Heaton IG # 0.01 10e3/ul Normal 0.00-0.03 [facility] Comment on above: Performed By: #### T 7, LIPA, TSH, AMADOU, CMP #### [facility] [address] [place] [address] Dr. Krystle Heaton IG % 0.2 % Normal 0.0-0.5 [facility] Comment on above: Performed By: #### T 7, LIPA, TSH, AMADOU, CMP #### [facility] [address] [place] [address] Dr. Krystle Heaton LYMPH # 1.6 103/ul Normal 1.2-3.8 [facility] Comment on above: Performed By: #### T 7, LIPA, TSH, AMADOU, CMP #### [facility] [address] [place] [address] Dr. Krystle Heaton Lymphocytes/100 WBC (Bld) 29.2 % Normal 20.5-60.0 [facility] Comment on above: Performed By: #### T 7, LIPA, TSH, AMADOU, CMP #### [facility] [address] [place] [address] Dr. Krystle Heaton MANUAL DIFF REQ NO Normal [facility] Comment on above: Performed By: #### T 7, LIPA, TSH, AMADOU, CMP #### [facility] [address] [place] [address] Dr. Krystle Heaton MCH (RBC) [Entitic mass] 27.7 pg Normal 25.9-34.0 [facility] Comment on above: Performed By: #### T 7, LIPA, TSH, AMADOU, CMP #### [facility] [address] [place] [address] Dr. Krystle Heaton MCHC (RBC) [Mass/Vol] 30.2 g/dL Normal 29.9-35.2 [facility] Comment on above: Performed By: #### T 7, LIPA, TSH, AMADOU, CMP #### [facility] [address] [place] [address] Dr. Krystle Heaton MCV (RBC) [Entitic vol] 91.5 fL Normal 80.0-94.0 [facility] Comment on above: Performed By: #### T 7, LIPA, TSH, AMADOU, CMP #### [facility] [address] [place] [address] Dr. Krystle Heaton MONO # 0.6 103/ul Normal 0.3-0.8 [facility] Comment on above: Performed By: #### T 7, LIPA, TSH, AMADOU, CMP #### [facility] [address] [place] [address] Dr. Krystle Heaton Monocytes/100 WBC (Bld) 10.5 % Normal 1.7-12.0 [facility] Comment on above: Performed By: #### T 7, LIPA, TSH, AMADOU, CMP #### [facility] [address] [place] [address] Dr. Krystle Heaton NEUT # 3.1 103/ul Normal 1.4-6.5 [facility] Comment on above: Performed By: #### T 7, LIPA, TSH, AMADOU, CMP #### [facility] [address] [place] [address] Dr. Krystle Heaton Neutrophils/100 WBC (Bld) 55.8 % Normal 43.0-75.0 [facility] Comment on above: Performed By: #### T 7, LIPA, TSH, AMADOU, CMP #### [facility] [address] [place] [address] Dr. Krystle Heaton Platelet mean volume (Bld) [Entitic vol] 10.9 fL Normal 9.5-13.5 [facility] Comment on above: Performed By: #### T 7, LIPA, TSH, AMADOU, CMP #### [facility] [address] [place] [address] Dr. Krystle Heaton PLT 214 103/ul Normal 150-450 [facility] Comment on above: Performed By: #### T 7, LIPA, TSH, AMADOU, CMP #### [facility] [address] [place] [address] Dr. Krystle Heaton RBC 4.23 106/ul Critically low 4.70-6.10 [facility] Comment on above: Performed By: #### T 7, LIPA, TSH, AMADOU, CMP #### [facility] [address] [place] [address] Dr. Krystle Heaton WBC 5.5 103/ul Normal 4.0-11.0 [facility] Comment on above: Performed By: #### T 7, LIPA, TSH, AMADOU, CMP #### [facility] [address] [place] [address] Dr. Krystle Heaton FERRITINon 10-08-2021 Ferritin [Mass/Vol] 59.0 ng/mL Normal 17.9-464.0 [facility] Comment on above: Performed By: #### T 7, LIPA, TSH, AMADOU, CMP #### [facility] [address] [place] [address] Dr. Krystle Heaton CBC AUTO DIFFon 09-10-2021 BASO # 0.0 103/ul Normal 0.0-0.1 [facility] Comment on above: Performed By: #### C BC #### [facility] [address] [place] [address] Billy Quita Basophils/100 WBC (Bld) 0.8 % Normal 0.2-2.0 [facility] Comment on above: Performed By: #### C BC #### [facility] [address] [place] [address] Billy Quita EO # 0.1 103/ul Normal 0.0-0.7 [facility] Comment on above: Performed By: #### C BC #### [facility] [address] [place] [address] Billy Quita Eosinophils/100 WBC (Bld) 3.5 % Normal 0.9-7.0 [facility] Comment on above: Performed By: #### C BC #### [facility] [address] [place] [address] Billy Quita Erythrocyte distribution width (RBC) [Ratio] 16.7 % Critically high 11.0-15.0 [facility] Comment on above: Performed By: #### C BC #### [facility] [address] [place] [address] Billy Quita Hematocrit (Bld) [Volume fraction] 40.6 % Critically low 42.0-54.0 [facility] Comment on above: Performed By: #### C BC #### [facility] [address] [place] [address] Billy Quita Hemoglobin (Bld) [Mass/Vol] 12.4 g/dL Critically low 14.0-18.0 [facility] Comment on above: Performed By: #### C BC #### [facility] [address] [place] [address] Billy Quita IG # 0.01 10e3/ul Normal 0.00-0.03 [facility] Comment on above: Performed By: #### C BC #### [facility] [address] [place] [address] Billy Quita IG % 0.3 % Normal 0.0-0.5 [facility] Comment on above: Performed By: #### C BC #### [facility] [address] [place] [address] Billy Quita LYMPH # 1.5 103/ul Normal 1.2-3.8 [facility] Comment on above: Performed By: #### C BC #### [facility] [address] [place] [address] Billy Devlin Lymphocytes/100 WBC (Bld) 39.7 % Normal 20.5-60.0 [facility] Comment on above: Performed By: #### C BC #### [facility] [address] [place] [address] Billy Devlin MANUAL DIFF REQ NO Normal [facility] Comment on above: Performed By: #### C BC #### [facility] [address] [place], [place] [address] Billy Devlin MCH (RBC) [Entitic mass] 27.6 pg Normal 25.9-34.0 [facility] Comment on above: Performed By: #### C BC #### [facility] [address] [place] [id number] Billy Devlin MCHC (RBC) [Mass/Vol] 30.5 g/dL Normal 29.9-35.2 [facility] Comment on above: Performed By: #### C BC #### [facility] [address] [place], [place] [address] Billy Devlin MCV (RBC) [Entitic vol] 90.2 fL Normal 80.0-94.0 [facility] Comment on above: Performed By: #### C BC #### [facility] [address] [place] [address] Billy Devlin MONO # 0.5 103/ul Normal 0.3-0.8 [facility] Comment on above: Performed By: #### C BC #### [facility] [address] [place], [place] [address] Billy Devlin Monocytes/100 WBC (Bld) 13.3 % Critically high 1.7-12.0 [facility] Comment on above: Performed By: #### C BC #### [facility] [address] [place], [place] [address] Billy Devlin NEUT # 1.6 103/ul Normal 1.4-6.5 [facility] Comment on above: Performed By: #### C BC #### [facility] [address] [place], [place] [address] Billy Devlin Neutrophils/100 WBC (Bld) 42.4 % Critically low 43.0-75.0 [facility] Comment on above: Performed By: #### C BC #### [facility] [address] [place], [place] [address] Billycarrillo Devlin Platelet mean volume (Bld) [Entitic vol] 11.5 fL Normal 9.5-13.5 [facility] Comment on above: Performed By: #### C BC #### [facility] [address] [place], [place] [address] Billy Devlin PLT 136 103/ul Critically low 150-450 [facility] Comment on above: Performed By: #### C BC #### [facility] [address] [place] [address] Billy Devlin RBC 4.50 106/ul Critically low 4.70-6.10 [facility] Comment on above: Performed By: #### C BC #### [facility] [address] [place] [address] Billy Devlin WBC 3.7 103/ul Critically low 4.0-11.0 [facility] Comment on above: Performed By: #### C BC #### [facility] [address] [place] [address] Billy Devlin FERRITINon 09-10-2021 Ferritin [Mass/Vol] 106.0 ng/mL Normal 17.9-464.0 [facility] Comment on above: Performed By: #### F ERR #### [facility] [address] [place] [address] Dr. Krystle Heaton CBC AUTO DIFFon 08-15-2021 BASO # 0.0 103/ul Normal 0.0-0.1 [facility] Comment on above: Performed By: #### C BC #### [facility] [address] [place] [address] Dr. Krystle Heaton Basophils/100 WBC (Bld) 0.8 % Normal 0.2-2.0 [facility] [place] [facility] Comment on above: Performed By: #### C BC #### [facility] [address] [place] [address] Dr. Krystle Heaton EO # 0.2 103/ul Normal 0.0-0.7 [facility] [place] [facility] Comment on above: Performed By: #### C BC #### [facility] [address] [place] [address] Dr. Krystle Heaton Eosinophils/100 WBC (Bld) 4.4 % Normal 0.9-7.0 [facility] [place] [facility] Comment on above: Performed By: #### C BC #### [facility] [address] [place] [address] Dr. Krystle Heaton Erythrocyte distribution width (RBC) [Ratio] 15.7 % Critically high 11.0-15.0 [facility] Comment on above: Performed By: #### C BC #### [facility] [address] [place] [address] Dr. Krystle Heaton Hematocrit (Bld) [Volume fraction] 39.4 % Critically low 42.0-54.0 [facility] Comment on above: Performed By: #### C BC #### [facility] [address] [place] [address] Dr. Krystle Heaton Hemoglobin (Bld) [Mass/Vol] 12.2 g/dL Critically low 14.0-18.0 [facility] Comment on above: Performed By: #### C BC #### [facility] [address] [place] [address] Dr. Krystle Heaton IG # 0.01 10e3/ul Normal 0.00-0.03 [facility] Comment on above: Performed By: #### C BC #### [facility] [address] [place] [address] Dr. Krystle Heaton IG % 0.2 % Normal 0.0-0.5 [facility] Comment on above: Performed By: #### C BC #### [facility] [address] [place] [address] Dr. Krystle Heaton LYMPH # 1.5 103/ul Normal 1.2-3.8 [facility] [place] [facility] Comment on above: Performed By: #### C BC #### [facility] [address] [place] [address] Dr. Krystle Heaton Lymphocytes/100 WBC (Bld) 32.2 % Normal 20.5-60.0 [facility] [place] [facility] Comment on above: Performed By: #### C BC #### [facility] [address] [place] [address] Dr. Krystle Heaton MANUAL DIFF REQ NO Normal [facility] Comment on above: Performed By: #### C BC #### [facility] [address] [place] [address] Dr. Krystle Heaton MCH (RBC) [Entitic mass] 27.4 pg Normal 25.9-34.0 [facility] Comment on above: Performed By: #### C BC #### [facility] [address] [place] [address] Dr. Krystle Heaton MCHC (RBC) [Mass/Vol] 31.0 g/dL Normal 29.9-35.2 [facility] [place] [facility] Comment on above: Performed By: #### C BC #### [facility] [address] [place] [address] Dr. Krystle Heaton MCV (RBC) [Entitic vol] 88.5 fL Normal 80.0-94.0 [facility] Comment on above: Performed By: #### C BC #### [facility] [address] [place] [address] Dr. Krystle Heaton MONO # 0.6 103/ul Normal 0.3-0.8 [facility] Comment on above: Performed By: #### C BC #### [facility] [address] [place] [address] Dr. Krystle Heaton Monocytes/100 WBC (Bld) 11.7 % Normal 1.7-12.0 [facility] Comment on above: Performed By: #### C BC #### [facility] [address] [place] [address] Dr. Krystle Heaton NEUT # 2.4 103/ul Normal 1.4-6.5 [facility] Comment on above: Performed By: #### C BC #### [facility] [address] [place] [address] Dr. Krystle Heaton Neutrophils/100 WBC (Bld) 50.7 % Normal 43.0-75.0 [facility] Comment on above: Performed By: #### C BC #### [facility] [address] [place] [address] Dr. Krystle Heaton Platelet mean volume (Bld) [Entitic vol] 11.4 fL Normal 9.5-13.5 [facility] [place] [facility] Comment on above: Performed By: #### C BC #### [facility] [address] [place] [address] Dr. Krystle Heaton PLT 169 103/ul Normal 150-450 [facility] [place] [facility] Comment on above: Performed By: #### C BC #### [facility] [address] [address] [address] Krystle Heaton RBC 4.45 106/ul Critically low 4.70-6.10 [facility] Comment on above: Performed By: #### C BC #### [facility] [address] [address] [address] Krystle Heaton WBC 4.8 103/ul Normal 4.0-11.0 [facility] Comment on above: Performed By: #### C BC #### [facility] [address] [place] [address] Dr. Krystle Heaton FERRITINon 08-15-2021 Ferritin [Mass/Vol] 103.0 ng/mL Normal 17.9-464.0 [facility] Comment on above: Performed By: #### T 7, LIPA, TSH, AMADOU, CMP #### [facility] [address] [place] [address] Dr. Krystle Heaton No Panel Informationon 07-31 Name ANGIE FRITZ Pathologist: COLLETTE DOTSON MD Date of Procedure: 07/31/2021 [facility] Work Phone: Radiologyon 07-31-2021 US Guidance for fine needle aspiration of Liver Normal [facility] [address] Work Phone: [facility] Surgical Pathology Depar tmenton 07-31-2021 [facility] Surgical Pathology Department Name ANGIE [...] toto in 2 cassettes A1 and A2. [facility]/07/31/2021 The assays/tests were performed with appropriate positive and negative controls which stained appropriately. [facility] of Pathology [address] [place] [address] Normal [facility] Comment on above: Performed By: #### [facility] #### [facility] Surgical Pathology Department [address] [place] [address] US BIOPSY LIVER PERon 2020 US BIOPSY LIVER PER Patient Name: ANGIE FRITZ STUDY: US BIOPSY LIVER PER; 07/31/2021 1:03 pm PROCEDURE: ULTRASOUND GUIDED NON TARGETED RANDOM BIOPSY OF THE LIVER INDICATION: Hemochromatosis; here for tissue diagnosis COMPARISON: CT-guided liver biopsy 05/08/2021. ACCESSION NUMBER(S): [id number] ORDERING CLINICIAN: [employer] TECHNOLOGIST: Dr. Roland (attending) Dee Lopes MD MEDICATIONS: [...] as stated. This study was interpreted at [place], [place]. Electronically signed by: SANDY ROLAND MD Normal [facility] CBC AUTO DIFFon 07-28-2021 BASO # 0.0 103/ul Normal 0.0-0.1 [facility] Comment on above: Performed By: #### T 7, LIPA, TSH, AMADOU, CMP #### [facility] [address] [place], [place] [address] Dr. Krystle Heaton Basophils/100 WBC (Bld) 0.6 % Normal 0.2-2.0 [facility] Comment on above: Performed By: #### T 7, LIPA, TSH, AMADOU, CMP #### [facility] [address] [place], [place] [address] Dr. Krystle Heaton EO # 0.2 103/ul Normal 0.0-0.7 [facility] [place] [facility] Comment on above: Performed By: #### T 7, LIPA, TSH, AMADOU, CMP #### [facility] [address] [place] [address] Dr. Krystle Heaton Eosinophils/100 WBC (Bld) 3.6 % Normal 0.9-7.0 [facility] Comment on above: Performed By: #### T 7, LIPA, TSH, AMADOU, CMP #### [facility] [address] [place] [address] Dr. Krystle Heaton Erythrocyte distribution width (RBC) [Ratio] 14.7 % Normal 11.0-15.0 [facility] Comment on above: Performed By: #### T 7, LIPA, TSH, AMADOU, CMP #### [facility] [address] [place] [address] Dr. Krystle Heaton Hematocrit (Bld) [Volume fraction] 37.4 % Critically low 42.0-54.0 [facility] Comment on above: Performed By: #### T 7, LIPA, TSH, AMADOU, CMP #### [facility] [address] [place] [address] Dr. Krystle Heaton Hemoglobin (Bld) [Mass/Vol] 11.5 g/dL Critically low 14.0-18.0 [facility] Comment on above: Performed By: #### T 7, LIPA, TSH, AMADOU, CMP #### [facility] [address] [place] [address] Dr. Krystle Heaton IG # 0.02 10e3/ul Normal 0.00-0.03 [facility] Comment on above: Performed By: #### T 7, LIPA, TSH, AMADOU, CMP #### [facility] [address] [place] [address] Dr. Krystle Heaton IG % 0.4 % Normal 0.0-0.5 [facility] Comment on above: Performed By: #### T 7, LIPA, TSH, AMADOU, CMP #### [facility] [address] [place] [address] Dr. Krystle Heaton LYMPH # 1.5 103/ul Normal 1.2-3.8 [facility] Comment on above: Performed By: #### T 7, LIPA, TSH, AMADOU, CMP #### [facility] [address] [place] [address] Dr. Krystle Heaton Lymphocytes/100 WBC (Bld) 31.3 % Normal 20.5-60.0 [facility] Comment on above: Performed By: #### T 7, LIPA, TSH, AMADOU, CMP #### [facility] [address] [place] [address] Dr. Krystle Heaton MANUAL DIFF REQ NO Normal [facility] Comment on above: Performed By: #### T 7, LIPA, TSH, AMADOU, CMP #### [facility] [address] [place] [address] Dr. Krystle Heaton MCH (RBC) [Entitic mass] 27.8 pg Normal 25.9-34.0 [facility] Comment on above: Performed By: #### T 7, LIPA, TSH, AMADOU, CMP #### [facility] [address] [place] [address] Dr. Krystle Heaton MCHC (RBC) [Mass/Vol] 30.7 g/dL Normal 29.9-35.2 [facility] Comment on above: Performed By: #### T 7, LIPA, TSH, AMADOU, CMP #### [facility] [address] [place] [address] Dr. Krystle Heaton MCV (RBC) [Entitic vol] 90.6 fL Normal 80.0-94.0 [facility] Comment on above: Performed By: #### T 7, LIPA, TSH, AMADOU, CMP #### [facility] [address] [place] [address] Dr. Krystle Heaton MONO # 0.6 103/ul Normal 0.3-0.8 [facility] Comment on above: Performed By: #### T 7, LIPA, TSH, AMADOU, CMP #### [facility] [address] [place] [address] Dr. Krystle Heaton Monocytes/100 WBC (Bld) 12.8 % Critically high 1.7-12.0 [facility] Comment on above: Performed By: #### T 7, LIPA, TSH, AMADOU, CMP #### [facility] [address] [address] [address] Krystle Heaton NEUT # 2.4 103/ul Normal 1.4-6.5 [facility] Comment on above: Performed By: #### T 7, LIPA, TSH, AMADOU, CMP #### [facility] [address] [place] [address] Dr. Krystle Heaton Neutrophils/100 WBC (Bld) 51.3 % Normal 43.0-75.0 [facility] Comment on above: Performed By: #### T 7, LIPA, TSH, AMADOU, CMP #### [facility] [address] [place] [address] Dr. Krystle Heaton Platelet mean volume (Bld) [Entitic vol] 11.4 fL Normal 9.5-13.5 [facility] Comment on above: Performed By: #### T 7, LIPA, TSH, AMADOU, CMP #### [facility] [address] [place] [address] Dr. Krystle Heaton PLT 190 103/ul Normal 150-450 [facility] [place] [facility] Comment on above: Performed By: #### T 7, LIPA, TSH, AMADOU, CMP #### [facility] [address] [place] [address] Dr. Krystle Heaton RBC 4.13 106/ul Critically low 4.70-6.10 [facility] Comment on above: Performed By: #### T 7, LIPA, TSH, AMADOU, CMP #### [facility] [address] [place] [address] Dr. Krystle Heaton WBC 4.7 103/ul Normal 4.0-11.0 [facility] [place] [facility] Comment on above: Performed By: #### T 7, LIPA, TSH, AMADOU, CMP #### [facility] [address] [place] [address] Dr. Krystle Heaton PROTIMEon 07-28-2021 INR Coag (PPP) [Relative time] 1.00 {INR} Normal [facility] Comment on above: Performed By: #### H BSANS #### [facility] [address] [place] [address] Billy Devlin INR GUIDELINES SEE BELOW Normal [facility] Comment on above: Result Comment: MOUNA RED INR: 2.0 - 3.0 CONDITIONS NOT LISTED BELOW 2.5 - 3.5 FOR PROSTHETIC HEART VALVE REPLACEMENT 2.5 - 3.5 RECURRENT THROMBOSIS Performed By: #### H ANJUMNS #### [facility] [address] [place] [address] Billy Devlin PT Coag (PPP) [Time] 10.8 s Normal 9.0-11.6 [facility] Comment on above: Performed By: #### H BSANS #### [facility] [address] [place] [address] Billy Devlin CBC AUTO DIFFon 07-09-2021 BASO # 0.0 103/ul Normal 0.0-0.1 [facility] Comment on above: Performed By: #### T 7, LIPA, TSH, AMADOU, CMP #### [facility] [address] [place] [address] Dr. Krystle Heaton Basophils/100 WBC (Bld) 0.4 % Normal 0.2-2.0 [facility] Comment on above: Performed By: #### T 7, LIPA, TSH, AMADOU, CMP #### [facility] [address] [place] [address] Dr. Krystle Heaton EO # 0.2 103/ul Normal 0.0-0.7 [facility] Comment on above: Performed By: #### T 7, LIPA, TSH, AMADOU, CMP #### [facility] [address] [place] [address] Dr. Krystle Heaton Eosinophils/100 WBC (Bld) 2.9 % Normal 0.9-7.0 [facility] Comment on above: Performed By: #### T 7, LIPA, TSH, AMADOU, CMP #### [facility] [address] [place] [address] Dr. Krystle Heaton Erythrocyte distribution width (RBC) [Ratio] 13.9 % Normal 11.0-15.0 [facility] Comment on above: Performed By: #### T 7, LIPA, TSH, AMADOU, CMP #### [facility] [address] [place] [address] Dr. Krystle Heaton Hematocrit (Bld) [Volume fraction] 40.4 % Critically low 42.0-54.0 [facility] Comment on above: Performed By: #### T 7, LIPA, TSH, AMADOU, CMP #### [facility] [address] [place] [address] Dr. Krystle Heaton Hemoglobin (Bld) [Mass/Vol] 12.3 g/dL Critically low 14.0-18.0 [facility] Comment on above: Performed By: #### T 7, LIPA, TSH, AMADOU, CMP #### [facility] [address] [place] [address] Dr. Krystle Heaton IG # 0.03 10e3/ul Normal 0.00-0.03 [facility] Comment on above: Performed By: #### T 7, LIPA, TSH, AMADOU, CMP #### [facility] [address] [place] [address] Dr. Krystle Heaton IG % 0.6 % Critically high 0.0-0.5 [facility] Comment on above: Performed By: #### T 7, LIPA, TSH, AMADOU, CMP #### [facility] [address] [place] [address] Dr. Krystle Heaton LYMPH # 1.5 103/ul Normal 1.2-3.8 [facility] Comment on above: Performed By: #### T 7, LIPA, TSH, AMADOU, CMP #### [facility] [address] [place] [address] Dr. Krystle Heaton Lymphocytes/100 WBC (Bld) 28.3 % Normal 20.5-60.0 [facility] Comment on above: Performed By: #### T 7, LIPA, TSH, AMADOU, CMP #### [facility] [address] [place] [address] Dr. Krystle Heaton MANUAL DIFF REQ NO Normal [facility] Comment on above: Performed By: #### T 7, LIPA, TSH, AMADOU, CMP #### [facility] [address] [place] [address] Dr. Krystle Heaton MCH (RBC) [Entitic mass] 28.3 pg Normal 25.9-34.0 [facility] Comment on above: Performed By: #### T 7, LIPA, TSH, AMADOU, CMP #### [facility] [address] [place] [address] Dr. Krystle Heaton MCHC (RBC) [Mass/Vol] 30.4 g/dL Normal 29.9-35.2 [facility] Comment on above: Performed By: #### T 7, LIPA, TSH, AMADOU, CMP #### [facility] [address] [place] [address] Dr. Krystle Heaton MCV (RBC) [Entitic vol] 93.1 fL Normal 80.0-94.0 [facility] Comment on above: Performed By: #### T 7, LIPA, TSH, AMADOU, CMP #### [facility] [address] [place] [address] Dr. Krystle Heaton MONO # 0.7 103/ul Normal 0.3-0.8 [facility] Comment on above: Performed By: #### T 7, LIPA, TSH, AMADOU, CMP #### [facility] [address] [place] [address] Dr. Krystle Heaton Monocytes/100 WBC (Bld) 13.4 % Critically high 1.7-12.0 [facility] Comment on above: Performed By: #### T 7, LIPA, TSH, AMADOU, CMP #### [facility] [address] [place] [address] Dr. Krystle Heaton NEUT # 2.8 103/ul Normal 1.4-6.5 [facility] Comment on above: Performed By: #### T 7, LIPA, TSH, AMADOU, CMP #### [facility] [address] [place] [address] Dr. Krystle Heaton Neutrophils/100 WBC (Bld) 54.4 % Normal 43.0-75.0 [facility] Comment on above: Performed By: #### T 7, LIPA, TSH, AMADOU, CMP #### [facility] [address] [place] [address] Dr. Krystle Heaton Platelet mean volume (Bld) [Entitic vol] 11.7 fL Normal 9.5-13.5 [facility] Comment on above: Performed By: #### T 7, LIPA, TSH, AMADOU, CMP #### [facility] [address] [place] [address] Dr. Krystle Heaton PLT 192 103/ul Normal 150-450 [facility] Comment on above: Performed By: #### T 7, LIPA, TSH, AMADOU, CMP #### [facility] [address] [place] [address] Dr. Krystle Heaton RBC 4.34 106/ul Critically low 4.70-6.10 [facility] Comment on above: Performed By: #### T 7, LIPA, TSH, AMADOU, CMP #### [facility] [address] [place] [address] Dr. Krystle Heaton WBC 5.2 103/ul Normal 4.0-11.0 [facility] Comment on above: Performed By: #### T 7, LIPA, TSH, AMADOU, CMP #### [facility] [address] [place] [address] Dr. Krystle Heaton FERRITINon 07-09-2021 Ferritin [Mass/Vol] 122.0 ng/mL Normal 17.9-464.0 [facility] Comment on above: Performed By: #### T 7, LIPA, TSH, AMADOU, CMP #### [facility] [address] [place] [address] Dr. Krystle Heaton CBC AUTO DIFFon 06-11-2021 BASO # 0.0 103/ul Normal 0.0-0.1 [facility] Comment on above: Performed By: #### T 7, LIPA, TSH, AMADOU, CMP #### [facility] [address] [place] [address] Dr. Krystle Heaton Basophils/100 WBC (Bld) 0.7 % Normal 0.2-2.0 [facility] Comment on above: Performed By: #### T 7, LIPA, TSH, AMADOU, CMP #### [facility] [address] [place] [address] Dr. Krystle Heaton EO # 0.2 103/ul Normal 0.0-0.7 [facility] Comment on above: Performed By: #### T 7, LIPA, TSH, AMADOU, CMP #### [facility] [address] [place] [address] Dr. Krystle Heaton Eosinophils/100 WBC (Bld) 3.9 % Normal 0.9-7.0 [facility] Comment on above: Performed By: #### T 7, LIPA, TSH, AMADOU, CMP #### [facility] [address] [place] [address] Dr. Krystle Heaton Erythrocyte distribution width (RBC) [Ratio] 13.0 % Normal 11.0-15.0 [facility] Comment on above: Performed By: #### T 7, LIPA, TSH, AMADOU, CMP #### [facility] [address] [place] [address] Dr. Krystle Heaton Hematocrit (Bld) [Volume fraction] 39.0 % Critically low 42.0-54.0 [facility] Comment on above: Performed By: #### T 7, LIPA, TSH, AMADOU, CMP #### [facility] [address] [place] [address] Dr. Krystle Heaton Hemoglobin (Bld) [Mass/Vol] 12.4 g/dL Critically low 14.0-18.0 [facility] Comment on above: Performed By: #### T 7, LIPA, TSH, AMADOU, CMP #### [facility] [address] [place] [address] Dr. Krystle Heaton IG # 0.01 10e3/ul Normal 0.00-0.03 [facility] [place] [facility] Comment on above: Performed By: #### T 7, LIPA, TSH, AMADOU, CMP #### [facility] [address] [place] [address] Dr. Krystle Heaton IG % 0.2 % Normal 0.0-0.5 [facility] [place] [facility] Comment on above: Performed By: #### T 7, LIPA, TSH, AMADOU, CMP #### [facility] [address] [place] [address] Dr. Krystle Heaton LYMPH # 1.0 103/ul Critically low 1.2-3.8 [facility] Comment on above: Performed By: #### T 7, LIPA, TSH, AMADOU, CMP #### [facility] [address] [place] [address] Dr. Krystle Heaton Lymphocytes/100 WBC (Bld) 23.1 % Normal 20.5-60.0 [facility] Comment on above: Performed By: #### T 7, LIPA, TSH, AMADOU, CMP #### [facility] [address] [place] [address] Dr. Krystle Heaton MANUAL DIFF REQ NO Normal [facility] Comment on above: Performed By: #### T 7, LIPA, TSH, AMADOU, CMP #### [facility] [address] [place] [address] Dr. Krystle Heaton MCH (RBC) [Entitic mass] 31.2 pg Normal 25.9-34.0 [facility] Comment on above: Performed By: #### T 7, LIPA, TSH, AMADOU, CMP #### [facility] [address] [place] [address] Dr. Krystle Heaton MCHC (RBC) [Mass/Vol] 31.8 g/dL Normal 29.9-35.2 [facility] Comment on above: Performed By: #### T 7, LIPA, TSH, AMADOU, CMP #### [facility] [address] [place] [address] Dr. Krystle Heaton MCV (RBC) [Entitic vol] 98.2 fL Critically high 80.0-94.0 [facility] Comment on above: Performed By: #### T 7, LIPA, TSH, AMADOU, CMP #### [facility] [address] [place] [address] Dr. Krystle Heaton MONO # 0.5 103/ul Normal 0.3-0.8 [facility] Comment on above: Performed By: #### T 7, LIPA, TSH, AMADOU, CMP #### [facility] [address] [place] [address] Dr. Krystle Heaton Monocytes/100 WBC (Bld) 10.4 % Normal 1.7-12.0 [facility] Comment on above: Performed By: #### T 7, LIPA, TSH, AMADOU, CMP #### [facility] [address] [place] [address] Dr. Krystle Heaton NEUT # 2.7 103/ul Normal 1.4-6.5 [facility] [place] [facility] Comment on above: Performed By: #### T 7, LIPA, TSH, AMADOU, CMP #### [facility] [address] [place] [address] Dr. Krystle Heaton Neutrophils/100 WBC (Bld) 61.7 % Normal 43.0-75.0 [facility] Comment on above: Performed By: #### T 7, LIPA, TSH, AMADOU, CMP #### [facility] [address] [place] [address] Dr. Krystle Heaton Platelet mean volume (Bld) [Entitic vol] 10.8 fL Normal 9.5-13.5 [facility] [place] [facility] Comment on above: Performed By: #### T 7, LIPA, TSH, AMADOU, CMP #### [facility] [address] [place] [address] Dr. Krystle Heaton PLT 197 103/ul Normal 150-450 [facility] [place] [facility] Comment on above: Performed By: #### T 7, LIPA, TSH, AMADOU, CMP #### [facility] [address] [place] [address] Dr. Krystle Heaton RBC 3.97 106/ul Critically low 4.70-6.10 [facility] Comment on above: Performed By: #### T 7, LIPA, TSH, AMADOU, CMP #### [facility] [address] [place] [address] Dr. Krystle Heaton WBC 4.3 103/ul Normal 4.0-11.0 [facility] [place] [facility] Comment on above: Performed By: #### T 7, LIPA, TSH, AMADOU, CMP #### [facility] [address] [place] [address] Dr. Krystle Heaton FERRITINon 06-11-2021 Ferritin [Mass/Vol] 107.0 ng/mL Normal 17.9-464.0 [facility] Comment on above: Performed By: #### T 7, LIPA, TSH, AMADOU, CMP #### [facility] [address] [place] [address] Dr. Krystle Heaton CBC AUTO DIFFon 05-28-2021 BASO # 0.0 103/ul Normal 0.0-0.1 [facility] Comment on above: Performed By: #### T 7, LIPA, TSH, AMADOU, CMP #### [facility] [address] [place] [address] Dr. Krystle Heaton Basophils/100 WBC (Bld) 0.5 % Normal 0.2-2.0 [facility] [facility] Comment on above: Performed By: #### T 7, LIPA, TSH, AMADOU, CMP #### [facility] [address] [place] [address] Dr. Krystle Heaton EO # 0.1 103/ul Normal 0.0-0.7 [facility] Comment on above: Performed By: #### T 7, LIPA, TSH, AMADOU, CMP #### [facility] [address] [place] [address] Dr. Krystle Heaton Eosinophils/100 WBC (Bld) 3.5 % Normal 0.9-7.0 [facility] Comment on above: Performed By: #### T 7, LIPA, TSH, AMADOU, CMP #### [facility] [address] [place] [address] Dr. Krystle Heaton Erythrocyte distribution width (RBC) [Ratio] 12.6 % Normal 11.0-15.0 [facility] Comment on above: Performed By: #### T 7, LIPA, TSH, AMADOU, CMP #### [facility] [address] [place] [address] Dr. Krystle Heaton Hematocrit (Bld) [Volume fraction] 39.8 % Critically low 42.0-54.0 [facility] Comment on above: Performed By: #### T 7, LIPA, TSH, AMADOU, CMP #### [facility] [address] [place] [address] Dr. Krystel Heaton Hemoglobin (Bld) [Mass/Vol] 12.5 g/dL Critically low 14.0-18.0 [facility] Comment on above: Performed By: #### T 7, LIPA, TSH, AMADOU, CMP #### [facility] [address] [place] [address] Dr. Krystle Heaton IG # 0.00 10e3/ul Normal 0.00-0.03 [facility] Comment on above: Performed By: #### T 7, LIPA, TSH, AMADOU, CMP #### [facility] [address] [place] [address] Dr. Krystle Heaton IG % 0.0 % Normal 0.0-0.5 [facility] Comment on above: Performed By: #### T 7, LIPA, TSH, AMADOU, CMP #### [facility] [address] [place] [address] Dr. Krystle Heaton LYMPH # 1.2 103/ul Normal 1.2-3.8 [facility] Comment on above: Performed By: #### T 7, LIPA, TSH, AMADOU, CMP #### [facility] [address] [place] [address] Dr. Krystle Heaton Lymphocytes/100 WBC (Bld) 32.7 % Normal 20.5-60.0 [facility] Comment on above: Performed By: #### T 7, LIPA, TSH, AMADOU, CMP #### [facility] [address] [place] [address] Dr. Krystle Heaton MANUAL DIFF REQ NO Normal [facility] Comment on above: Performed By: #### T 7, LIPA, TSH, AMADOU, CMP #### [facility] [address] [place] [address] Dr. Krystle Heaton MCH (RBC) [Entitic mass] 32.1 pg Normal 25.9-34.0 [facility] Comment on above: Performed By: #### T 7, LIPA, TSH, AMADOU, CMP #### [facility] [address] [place] [address] Dr. Krystle Heaton MCHC (RBC) [Mass/Vol] 31.4 g/dL Normal 29.9-35.2 [facility] Comment on above: Performed By: #### T 7, LIPA, TSH, AMADOU, CMP #### [facility] [address] [place] [address] Dr. Krystle Heaton MCV (RBC) [Entitic vol] 102.3 fL Critically high 80.0-94.0 [facility] Comment on above: Performed By: #### T 7, LIPA, TSH, AMADOU, CMP #### [facility] [address] [place] [address] Dr. Krystle Heaton MONO # 0.4 103/ul Normal 0.3-0.8 [facility] Comment on above: Performed By: #### T 7, LIPA, TSH, AMADOU, CMP #### [facility] [address] [place] [address] Dr. Krystle Heaton Monocytes/100 WBC (Bld) 10.5 % Normal 1.7-12.0 [facility] Comment on above: Performed By: #### T 7, LIPA, TSH, AMADOU, CMP #### [facility] [address] [place] [address] Dr. Krystle Heaton NEUT # 2.0 103/ul Normal 1.4-6.5 [facility] Comment on above: Performed By: #### T 7, LIPA, TSH, AMADOU, CMP #### [facility] [address] [place] [address] Dr. Krystle Heaton Neutrophils/100 WBC (Bld) 52.8 % Normal 43.0-75.0 [facility] Comment on above: Performed By: #### T 7, LIPA, TSH, AMADOU, CMP #### [facility] [address] [place] [address] Dr. Krystle Heaton Platelet mean volume (Bld) [Entitic vol] 10.7 fL Normal 9.5-13.5 [facility] Comment on above: Performed By: #### T 7, LIPA, TSH, AMADOU, CMP #### [facility] [address] [address] [address] Krystle Heaton PLT 227 103/ul Normal 150-450 [facility] Comment on above: Performed By: #### T 7, LIPA, TSH, AMADOU, CMP #### [facility] [address] [address] [address] Krystle Heaton RBC 3.89 106/ul Critically low 4.70-6.10 [facility] Comment on above: Performed By: #### T 7, LIPA, TSH, AMADOU, CMP #### [facility] [address] [address] [address] Krystle Heaton WBC 3.7 103/ul Critically low 4.0-11.0 [facility] Comment on above: Performed By: #### T 7, LIPA, TSH, AMADOU, CMP #### [facility] [address] [address] [address] Krystle Heaton FERRITINon 05-28-2021 Ferritin [Mass/Vol] 169.0 ng/mL Normal 17.9-464.0 [facility] Comment on above: Performed By: #### F ERR #### [facility] [address] [address] [address] Krystle Heaton METHYLMALONIC ACID (MMA)on 0 05-18-2021 Disclaimer: Comment Normal [facility] Comment on above: Result Comment: This test was developed and its performance characteristics determined by [facility]. It has not been cleared or approved by the Food and Drug Administration. Performed By: #### T 7, LIPA, TSH, AMADOU, CMP #### [facility] [address] [address] [address] Krystle Heaton Methylmalonic Acid, Serum 124 nmol/L Normal 0-378 [facility] Comment on above: Performed By: #### T 7, LIPA, TSH, AMADOU, CMP #### [facility] [address] [address] [address] Krystle Heaton HOMOCYSTEINEon 05-16-2021 Homocyst(e)ine, Plasma 19.5 umol/L Critically high 0.0-14.5 [facility] Comment on above: Performed By: #### T 7, LIPA, TSH, AMADOU, CMP #### [facility] [address] [place] [address] Dr. Krystle Heaton CBC AUTO DIFFon 05-15-2021 BASO # 0.0 103/ul Normal 0.0-0.1 [facility] Comment on above: Performed By: #### T 7, LIPA, TSH, AMADOU, CMP #### [facility] [address] [place] [address] Dr. Krystle Heaton Basophils/100 WBC (Bld) 0.5 % Normal 0.2-2.0 [facility] Comment on above: Performed By: #### T 7, LIPA, TSH, AMADOU, CMP #### [facility] [address] [place] [address] Dr. Krystle Heaton EO # 0.1 103/ul Normal 0.0-0.7 [facility] Comment on above: Performed By: #### T 7, LIPA, TSH, AMADOU, CMP #### [facility] [address] [place] [address] Dr. Krystle Heaton Eosinophils/100 WBC (Bld) 1.8 % Normal 0.9-7.0 [facility] Comment on above: Performed By: #### T 7, LIPA, TSH, AMADOU, CMP #### [facility] [address] [place] [address] Dr. Krystle Heaton Erythrocyte distribution width (RBC) [Ratio] 12.7 % Normal 11.0-15.0 [facility] Comment on above: Performed By: #### T 7, LIPA, TSH, AMADOU, CMP #### [facility] [address] [place] [address] Dr. Krystle Heaton Hematocrit (Bld) [Volume fraction] 39.4 % Critically low 42.0-54.0 [facility] Comment on above: Performed By: #### T 7, LIPA, TSH, AMADOU, CMP #### [facility] [address] [place] [address] Dr. Krystle Heaton Hemoglobin (Bld) [Mass/Vol] 12.9 g/dL Critically low 14.0-18.0 [facility] Comment on above: Performed By: #### T 7, LIPA, TSH, AMADOU, CMP #### [facility] [address] [place] [address] Dr. Krystle Heaton IG # 0.02 10e3/ul Normal 0.00-0.03 [facility] Comment on above: Performed By: #### T 7, LIPA, TSH, AMADOU, CMP #### [facility] [address] [place] [address] Dr. Krystle Heaton IG % 0.4 % Normal 0.0-0.5 [facility] Comment on above: Performed By: #### T 7, LIPA, TSH, AMADOU, CMP #### [facility] [address] [place] [address] Dr. Krystle Heaton LYMPH # 1.4 103/ul Normal 1.2-3.8 [facility] Comment on above: Performed By: #### T 7, LIPA, TSH, AMADOU, CMP #### [facility] [address] [place] [address] Dr. Krystle Heaton Lymphocytes/100 WBC (Bld) 24.9 % Normal 20.5-60.0 [facility] Comment on above: Performed By: #### T 7, LIPA, TSH, AMADOU, CMP #### [facility] [address] [place] [address] Dr. Krystle Heaton MANUAL DIFF REQ NO Normal [facility] Comment on above: Performed By: #### T 7, LIPA, TSH, AMADOU, CMP #### [facility] [address] [place] [address] Dr. Krystle Heaton MCH (RBC) [Entitic mass] 34.0 pg Normal 25.9-34.0 [facility] Comment on above: Performed By: #### T 7, LIPA, TSH, AMADOU, CMP #### [facility] [address] [place] [address] Dr. Krystle Heaton MCHC (RBC) [Mass/Vol] 32.7 g/dL Normal 29.9-35.2 [facility] Comment on above: Performed By: #### T 7, LIPA, TSH, AMADOU, CMP #### [facility] [address] [place] [address] Dr. Krystle Heaton MCV (RBC) [Entitic vol] 104.0 fL Critically high 80.0-94.0 [facility] Comment on above: Performed By: #### T 7, LIPA, TSH, AMADOU, CMP #### [facility] [address] [place] [address] Dr. Krystle Heaton MONO # 0.7 103/ul Normal 0.3-0.8 [facility] Comment on above: Performed By: #### T 7, LIPA, TSH, AMADOU, CMP #### [facility] [address] [place] [address] Dr. Krystle Heaton Monocytes/100 WBC (Bld) 11.8 % Normal 1.7-12.0 [facility] Comment on above: Performed By: #### T 7, LIPA, TSH, AMADOU, CMP #### [facility] [address] [place] [address] Dr. Krystle Heaton NEUT # 3.3 103/ul Normal 1.4-6.5 [facility] Comment on above: Performed By: #### T 7, LIPA, TSH, AMADOU, CMP #### [facility] [address] [place] [address] Dr. Krystle Heaton Neutrophils/100 WBC (Bld) 60.6 % Normal 43.0-75.0 [facility] Comment on above: Performed By: #### T 7, LIPA, TSH, AMADOU, CMP #### [facility] [address] [place] [address] Dr. Krystle Heaton Platelet mean volume (Bld) [Entitic vol] 10.2 fL Normal 9.5-13.5 [facility] Comment on above: Performed By: #### T 7, LIPA, TSH, AMADOU, CMP #### [facility] [address] [place] [address] Dr. Krystle Heaton PLT 196 103/ul Normal 150-450 [facility] Comment on above: Performed By: #### T 7, LIPA, TSH, AMADOU, CMP #### [facility] [address] [place] [address] Dr. Krystle Heaton RBC 3.79 106/ul Critically low 4.70-6.10 [facility] Comment on above: Performed By: #### T 7, LIPA, TSH, AMADOU, CMP #### [facility] [address] [place] [address] Dr. Krystle Heaton WBC 5.5 103/ul Normal 4.0-11.0 [facility] Comment on above: Performed By: #### T 7, LIPA, TSH, AMADOU, CMP #### [facility] [address] [place] [address] Dr. Krystle Heaton FERRITINon 05-15-2021 Ferritin [Mass/Vol] 302.0 ng/mL Normal 17.9-464.0 [facility] Comment on above: Performed By: #### C BC #### [facility] [address] [place] [address] Billy Devlin PROF 14(COMP METB)on 021 Albumin [Mass/Vol] 3.5 g/dL Normal 3.5-5.[address] [facility] Comment on above: Performed By: #### C BC #### [facility] [address] [place], [place] [address] Billy Devlin Albumin/Globulin [Mass ratio] 1.0 {ratio} Normal [facility] Comment on above: Performed By: #### C BC #### [facility] [address] [place] [address] Billy Quita ALP [Catalytic activity/Vol] 71 U/L Normal 38-126 [facility] Comment on above: Performed By: #### C BC #### [facility] [address] [place], [place] [address] Billy Devlin ALT [Catalytic activity/Vol] 40 U/L Normal 21-72 [facility] Comment on above: Performed By: #### C BC #### [facility] [address] [place] [address] Billy Devlin Anion gap [Moles/Vol] 17.5 mmol/L Normal [facility] Comment on above: Performed By: #### C BC #### [facility] [address] [id number] Billy Quita AST [Catalytic activity/Vol] 43 U/L Normal 17-59 [facility] Comment on above: Performed By: #### C BC #### [facility] [address] [id number] Billy Quita Bilirubin [Mass/Vol] 0.3 mg/dL Normal 0.2-1.3 [facility] Comment on above: Performed By: #### C BC #### [facility] [address] [id number] Billy Quita Calcium [Mass/Vol] 8.8 mg/dL Normal 8.4-10.[address] [facility] Comment on above: Performed By: #### C BC #### [facility] [address] [place] [address] Billy Quita Chloride [Moles/Vol] 101 mmol/L Normal 98-107 [facility] Comment on above: Performed By: #### C BC #### [facility] [address] [place], [place] [address] Billy Quita CO2 [Moles/Vol] 26.6 mmol/L Normal 22.0-30.0 [facility] Comment on above: Performed By: #### C BC #### [facility] [address] [place], [place] [address] Billy Quita Creatinine [Mass/Vol] 0.88 mg/dL Normal 0.66-1.25 [facility] Comment on above: Performed By: #### C BC #### [facility] [address] [id number] Billy Quita EGFR-AF MALAYSIAN >60 Normal >=60 [facility] Comment on above: Performed By: #### C BC #### [facility] [address] [place], [place] [address] Billy Quita EGFR-NON AF MALAYSIAN >60 Normal >=60 [facility] Comment on above: Performed By: #### C BC #### [facility] [address] [place], [place] [address] Billy Quita Globulin (S) [Mass/Vol] 3.6 g/dL Normal [facility] Comment on above: Performed By: #### C BC #### [facility] [address] [place], [place] [address] Billy Quita Glucose [Mass/Vol] 101 mg/dL Normal 74-106 [facility] [place] [facility] Comment on above: Performed By: #### C BC #### [facility] [address] [place], [place] [address] Billy Quita Potassium [Moles/Vol] 4.1 mmol/L Normal 3.4-5.0 [facility] Comment on above: Performed By: #### C BC #### [facility] [address] [place], [place] [address] Billy Quita Protein [Mass/Vol] 7.1 g/dL Normal 6.1-8.2 [facility] [place] [facility] Comment on above: Performed By: #### C BC #### [facility] [address] [id number] Billy Quita Sodium [Moles/Vol] 141 mmol/L Normal 137-145 [facility] [place] [facility] Comment on above: Performed By: #### C BC #### [facility] [address] [place], [place] [address] Billy Quita Urea nitrogen [Mass/Vol] 11.0 mg/dL Normal 9.0-20.0 [facility] Comment on above: Performed By: #### C BC #### [facility] [address] [place], [place] [address] Billy Quita Urea nitrogen/Creatinine [Mass ratio] 12.5 mg/mg Normal [facility] Comment on above: Performed By: #### C BC #### [facility] [address] [place], [place] [address] Billy Quita IN BIOPSY LIVER PERCUTANEOUS NEEDLEon 05-08-2021 IN BIOPSY LIVER PERCUTANEOUS NEEDLE Patient Name: ANGIE FRITZ STUDY: IN BIOPSY LIVER PERCUTANEOUS NEEDLE; ; 05/08/2021 11:46 am INDICATION: None. COMPARISON: None. ACCESSION NUMBER(S): [id number] ORDERING CLINICIAN: ENOCH HERRMANN TECHNIQUE: CONSENT: The [...] and cap. Additionally, the performing physician and power plant assistant used maximum barrier technique to include [...] were made using an 18 gauge spring-loaded Compress[employer] core biopsy needle. Good core samples were [...] above Electronically signed by: URI BACON MD [facility] Order Reconciliationon 05-08 Order Reconciliation Page 1 [...] tab(s) orally 2 times a day Normal [facility] Surgical Pathology Depar tmenton 05-08-2021 [facility] Surgical Pathology Department Name ANGIE FRITZ Pathologist: SUSAN BLACK M.D., PhD. Date of Procedure: 05/08/2021 Date Received: 05/08/2021 Date Reported 05/11/2021 Submitting Physician: ENOCH HERRMANN MD Location: [facility] Copy To/Referring/Attending: URI BACON MD Other External [...] positive and negative controls which stained appropriately. [facility] of Pathology [address] [place] [address] Normal [facility] Comment on above: Performed By: #### U HCS #### [facility] Surgical Pathology Department [address] [place] [address] CBC AUTO DIFFon 05-04-2021 BASO # 0.0 103/ul Normal 0.0-0.1 [facility] Comment on above: Performed By: #### F ERR #### [facility] [address] [address] [address] Krystle Heaton Basophils/100 WBC (Bld) 0.5 % Normal 0.2-2.0 [facility] Comment on above: Performed By: #### F ERR #### [facility] [address] [address] [address] Krystle Heaton EO # 0.1 103/ul Normal 0.0-0.7 [facility] Comment on above: Performed By: #### F ERR #### [facility] [address] [place] [address] Dr. Krystle Heaton Eosinophils/100 WBC (Bld) 2.5 % Normal 0.9-7.0 [facility] Comment on above: Performed By: #### F ERR #### [facility] [address] [place] [address] Dr. Krystle Heaton Erythrocyte distribution width (RBC) [Ratio] 12.5 % Normal 11.0-15.0 [facility] Comment on above: Performed By: #### F ERR #### [facility] [address] [place] [address] Dr. Krystle Heaton Hematocrit (Bld) [Volume fraction] 34.3 % Critically low 42.0-54.0 [facility] Comment on above: Performed By: #### F ERR #### [facility] [address] [place] [address] Dr. Krystle Heaton Hemoglobin (Bld) [Mass/Vol] 11.2 g/dL Critically low 14.0-18.0 [facility] Comment on above: Performed By: #### F ERR #### [facility] [address] [place] [address] Dr. Krystle Heaton IG # 0.01 10e3/ul Normal 0.00-0.03 [facility] Comment on above: Performed By: #### F ERR #### [facility] [address] [place] [address] Dr. Krystle Heaton IG % 0.3 % Normal 0.0-0.5 [facility] [place] [facility] Comment on above: Performed By: #### F ERR #### [facility] [address] [place] [address] Dr. Krystle Heaton LYMPH # 1.3 103/ul Normal 1.2-3.8 [facility] [place] [facility] Comment on above: Performed By: #### F ERR #### [facility] [address] [place] [address] Dr. Krystle Heaton Lymphocytes/100 WBC (Bld) 33.3 % Normal 20.5-60.0 [facility] [place] [facility] Comment on above: Performed By: #### F ERR #### [facility] [address] [place] [address] Dr. Krystle Heaton MANUAL DIFF REQ NO Normal [facility] Comment on above: Performed By: #### F ERR #### [facility] [address] [place] [address] Dr. Krystle Heaton MCH (RBC) [Entitic mass] 35.6 pg Critically high 25.9-34.0 [facility] Comment on above: Performed By: #### F ERR #### [facility] [address] [place] [address] Dr. Krystle Heaton MCHC (RBC) [Mass/Vol] 32.7 g/dL Normal 29.9-35.2 [facility] Comment on above: Performed By: #### F ERR #### [facility] [address] [place] [address] Dr. Krystle Heaton MCV (RBC) [Entitic vol] 108.9 fL Critically high 80.0-94.0 [facility] Comment on above: Performed By: #### F ERR #### [facility] [address] [place] [address] Dr. Krystle Heaton MONO # 0.4 103/ul Normal 0.3-0.8 [facility] Comment on above: Performed By: #### F ERR #### [facility] [address] [place] [address] Dr. Krystle Heaton Monocytes/100 WBC (Bld) 10.0 % Normal 1.7-12.0 [facility] Comment on above: Performed By: #### F ERR #### [facility] [address] [place] [address] Dr. Krystle eHaton NEUT # 2.1 103/ul Normal 1.4-6.5 [facility] [place] [facility] Comment on above: Performed By: #### F ERR #### [facility] [address] [place] [address] Dr. Krystle Heaton Neutrophils/100 WBC (Bld) 53.4 % Normal 43.0-75.0 [facility] Comment on above: Performed By: #### F ERR #### [facility] [address] [place] [address] Dr. Krystle Heaton Platelet mean volume (Bld) [Entitic vol] 10.7 fL Normal 9.5-13.5 [facility] Comment on above: Performed By: #### F ERR #### [facility] [address] [place] [address] Dr. Krystle Heaton PLT 174 103/ul Normal 150-450 [facility] [place] [facility] Comment on above: Performed By: #### F ERR #### [facility] [address] [place] [address] Dr. Krystle Heaton RBC 3.15 106/ul Critically low 4.70-6.10 [facility] Comment on above: Result Comment: SLID E REVIEWED. 2+ MACROCYTOSIS SEEN Performed By: #### F ERR #### [facility] [address] [place] [address] Dr. Krystle Heaton WBC 4.0 103/ul Normal 4.0-11.0 [facility] Comment on above: Performed By: #### F ERR #### [facility] [address] [place] [address] Dr. Krystle Heaton FERRITINon 05-04-2021 Ferritin [Mass/Vol] 417.0 ng/mL Normal 17.9-464.0 [facility] Comment on above: Performed By: #### T 7, LIPA, TSH, AMADOU, CMP #### [facility] [address] [place] [address] Dr. Krystle Heaton AFP (TUMOR MARKER)on 021 AFP, Serum, Tumor Marker 5.2 ng/mL Normal 0.0-8.3 [facility] [place] [facility] Comment on above: Result Comment: [employer] Electrochemiluminescence Immunoassay (ECLIA) . Values obtained with different assay methods or kits cannot be used interchangeably. Results cannot be interpreted as absolute evidence of the presence or absence of malignant disease. . This test is not interpretable in females. Performed By: #### T 7, LIPA, TSH, AMADOU, CMP #### [facility] [address] [place] [address] Dr. Krystle Heaton [id number] , Serum 132 mg/dL Normal 101-187 [facility] Comment on above: Performed By: #### H BSANS #### [facility] [address] [address] Billy Devlin NE by IFAon 05-02-2021 Antinuclear Antibodies, IFA Negative Normal [facility] Comment on above: Result Comment: Nega tive <1:80 Borderline 1:80 Positive >1:80 Performed By: #### A NAIFA #### [facility] [address] [place] [address] Billy Devlin CERULOPLASMINon 05-02-2021 Ceruloplasmin 27.8 mg/dL Normal 16.0-31.0 [facility] Comment on above: Performed By: #### C BC #### [facility] [address] [place] [address] Billy Devlin HEP A AB TOTALon 05-02-2021 Hep A Ab, Total Negative Normal Negative [facility] Comment on above: Performed By: #### H BSANS #### [facility] [address] [place] [address] Billy Devlin HEP B COREon 05-02-2021 Hep B Core Ab, Tot Negative Normal Negative [facility] Comment on above: Performed By: #### T 7, LIPA, TSH, AMADOU, CMP #### [facility] [address] [id number] Krystle Heaton HEP B SURFACE ANTIGEN SCREEN on 05-02-2021 HBsAg Screen Negative Normal Negative [facility] Comment on above: Performed By: #### H BSANS #### [facility] [address] [place] [address] Billy Devlin HEPATITIS B SURFACE ANTIBODY , QUANTon 05-02-2021 Hepatitis B Surf AB Quant <3.1 Critically low Immunity>9. 9 [facility] Comment on above: Result Comment: Stat us of Immunity Anti-HBs Level Inconsistent with Immunity 0.0 - 9.9 Consistent with Immunity >9.9 Performed By: #### H BSANS #### [facility] [address] [place] [address] Billy Devlin HEPATITIS C ANTIBODYon 05-02 Hep C Virus Ab <0.1 Normal 0.0-0.9 [facility] Comment on above: Result Comment: Nega tive: < 0.8 Indeterminate: 0.8 - 0.9 Positive: > 0.9 . The CDC recommends that a positive HCV antibody result be followed up with a HCV Nucleic Acid Amplification test (274369). Performed By: #### T 7, LA, SAVITA, AMADOU, CMP #### [facility] [address] [place] [address] Dr. Krystle Heaton MITICHONDRIAL (M2) ANTIBODYo n 05-02-2021 Mitochondrial (M2) Antibody <20.0 Normal 0.0-20.0 [facility] Comment on above: Result Comment: Nega tive 0.0 - 20.0 Equivocal 20.1 - 24.9 Positive >24.9 . Mitochondrial (M2) Antibodies are found in 90-96% of patients with primary biliary cirrhosis. Performed By: #### F ERR #### [facility] [address] [place] [address] Dr. Krystle Heaton CBC AUTO DIFFon 05-01-2021 BASO # 0.1 103/ul Normal 0.0-0.1 [facility] Comment on above: Performed By: #### C BC #### [facility] [address] [place] [address] Billy Devlin Basophils/100 WBC (Bld) 1.5 % Normal 0.2-2.0 [facility] Comment on above: Performed By: #### C BC #### [facility] [address] [place] [address] Billy Devlin EO # 0.1 103/ul Normal 0.0-0.7 [facility] Comment on above: Performed By: #### C BC #### [facility] [address] [place] [address] Billy Quita Eosinophils/100 WBC (Bld) 2.1 % Normal 0.9-7.0 [facility] Comment on above: Performed By: #### C BC #### [facility] [address] [place] [address] Billycarrillo Devlin Erythrocyte distribution width (RBC) [Ratio] 12.7 % Normal 11.0-15.0 [facility] Comment on above: Performed By: #### C BC #### [facility] [address] [place] [address] Billy Quita Hematocrit (Bld) [Volume fraction] 34.6 % Critically low 42.0-54.0 [facility] Comment on above: Performed By: #### C BC #### [facility] [address] [place] [address] Billy Quita Hemoglobin (Bld) [Mass/Vol] 11.2 g/dL Critically low 14.0-18.0 [facility] Comment on above: Performed By: #### C BC #### [facility] [address] [place] [address] Billy Quita IG # 0.01 10e3/ul Normal 0.00-0.03 [facility] Comment on above: Performed By: #### C BC #### [facility] [address] [place] [address] Billy Quita IG % 0.3 % Normal 0.0-0.5 [facility] [place] [facility] Comment on above: Performed By: #### C BC #### [facility] [address] [place] [address] Billy Quita LYMPH # 1.0 103/ul Critically low 1.2-3.8 [facility] Comment on above: Performed By: #### C BC #### [facility] [address] [place] [address] Billy Quita Lymphocytes/100 WBC (Bld) 30.4 % Normal 20.5-60.0 [facility] [place] [facility] Comment on above: Performed By: #### C BC #### [facility] [address] [place] [address] Billy Quita MANUAL DIFF REQ NO Normal [facility] Comment on above: Performed By: #### C BC #### [facility] [address] [place], [place] [address] Billy Devlin MCH (RBC) [Entitic mass] 35.8 pg Critically high 25.9-34.0 [facility] Comment on above: Performed By: #### C BC #### [facility] [address] [place], [place] [address] Billy Devlin MCHC (RBC) [Mass/Vol] 32.4 g/dL Normal 29.9-35.2 [facility] Comment on above: Performed By: #### C BC #### [facility] [address] [place] [address] Billy Devlin MCV (RBC) [Entitic vol] 110.5 fL Critically high 80.0-94.0 [facility] Comment on above: Performed By: #### C BC #### [facility] [address] [place] [address] Billy Devlin MONO # 0.4 103/ul Normal 0.3-0.8 [facility] Comment on above: Performed By: #### C BC #### [facility] [address] [place] [address] Billy Deanen Monocytes/100 WBC (Bld) 11.3 % Normal 1.7-12.0 [facility] Comment on above: Performed By: #### C BC #### [facility] [address] [place], [place] [address] Billy Devlin NEUT # 1.8 103/ul Normal 1.4-6.5 [facility] Comment on above: Performed By: #### C BC #### [facility] [address] [place], [place] [address] Billy Quita Neutrophils/100 WBC (Bld) 54.4 % Normal 43.0-75.0 [facility] Comment on above: Performed By: #### C BC #### [facility] [address] [place], [place] [address] Billy Quita Platelet mean volume (Bld) [Entitic vol] 11.3 fL Normal 9.5-13.5 [facility] Comment on above: Performed By: #### C BC #### [facility] [address] [place], [place] [address] Billy Quita PLT 142 103/ul Critically low 150-450 [facility] Comment on above: Performed By: #### C BC #### [facility] [address], [place] [address] Billy Quita RBC 3.13 106/ul Critically low 4.70-6.10 [facility] Comment on above: Performed By: #### C BC #### [facility] [address], [place] [address] Billy Quita WBC 3.4 103/ul Critically low 4.0-11.0 [facility] Comment on above: Performed By: #### C BC #### [facility] [address], [place] [address] Billy Quita LIVER PROFILEon 05-01-2021 Albumin/Globulin [Mass ratio] 1.0 {ratio} Normal [facility] Comment on above: Performed By: #### H BSANS #### [facility] [address], [place] [address] Billy Quita ALP [Catalytic activity/Vol] 67 U/L Normal 38-126 [facility] Comment on above: Performed By: #### H BSANS #### [facility] [address] [id number] Billy Quita ALT [Catalytic activity/Vol] 52 U/L Normal 21-72 [facility] Comment on above: Performed By: #### H BSANS #### [facility] [address] [place], [place] [address] Billy Quita AST [Catalytic activity/Vol] 51 U/L Normal 17-59 [facility] [place] [facility] Comment on above: Performed By: #### H BSANS #### [facility] [address], [place] [address] Billy Quita BILI, CONJUGATED 0.2 mg/dL Normal 0.0-0.3 [facility] Comment on above: Performed By: #### H BSANS #### [facility] [address] [id number] Billy Quita Bilirubin [Mass/Vol] 0.5 mg/dL Normal 0.2-1.3 [facility] [place] [facility] Comment on above: Performed By: #### H BSANS #### [facility] [address] [id number] Billy Quita Globulin (S) [Mass/Vol] 3.4 g/dL Normal [facility] [place] [facility] Comment on above: Performed By: #### H BSANS #### [facility] [address] [place] [address] Billy Quita Protein [Mass/Vol] 6.9 g/dL Normal 6.1-8.2 [facility] [place] [facility] Comment on above: Performed By: #### H BSANS #### [facility] [address] [place], [place] [address] Billy Quita PROTIMEon 05-01-2021 INR Coag (PPP) [Relative time] 0.95 {INR} Normal [facility] [place] [facility] Comment on above: Performed By: #### C BC #### [facility] [address] [place], [place] [address] Billy Quita INR GUIDELINES SEE BELOW Normal [facility] Comment on above: Result Comment: MOUNA RED INR: 2.0 - 3.0 CONDITIONS NOT LISTED BELOW 2.5 - 3.5 FOR PROSTHETIC HEART VALVE REPLACEMENT 2.5 - 3.5 RECURRENT THROMBOSIS Performed By: #### C BC #### [facility] [address] [place], [place] [address] Billy Quita PT Coag (PPP) [Time] 10.4 s Normal 9.0-11.6 [facility] [place] [facility] Comment on above: Performed By: #### C BC #### [facility] [address] [place], [place] [address] Billy Quita RENAL FUNCTION PANELon 05-01 Albumin [Mass/Vol] 3.5 g/dL Normal 3.5-5.[address] [facility] Comment on above: Performed By: #### H BSANS #### [facility] [address] [place], [place] [address] Billy Quita Calcium [Mass/Vol] 8.7 mg/dL Normal 8.4-10.2 [facility] [place] [facility] Comment on above: Performed By: #### H BSANS #### [facility] [address] [place] [address] Billy Quita Chloride [Moles/Vol] 104 mmol/L Normal 98-107 [facility] [place] [facility] Comment on above: Performed By: #### H BSANS #### [facility] [address] [place] [address] Billy Quita CO2 [Moles/Vol] 25.7 mmol/L Normal 22.0-30.0 [facility] Comment on above: Performed By: #### H BSANS #### [facility] [address] [place] [address] Billy Quita Creatinine [Mass/Vol] 1.01 mg/dL Normal 0.66-1.25 [facility] [place] [facility] Comment on above: Performed By: #### H BSANS #### [facility] [address] [place] [address] Billy Quita EGFR-AF MALAYSIAN >60 Normal >=60 [facility] Comment on above: Performed By: #### H BSANS #### [facility] [address] [place] [address] Billy Quita EGFR-NON AF MALAYSIAN >60 Normal >=60 [facility] [place] [facility] Comment on above: Performed By: #### H BSANS #### [facility] [address] [place] [address] Billy Quita Glucose [Mass/Vol] 103 mg/dL Normal 74-106 [facility] [place] [facility] Comment on above: Performed By: #### H BSANS #### [facility] [address] [place] [address] Billy Quita Phosphate [Mass/Vol] 3.6 mg/dL Normal 2.5-4.5 [facility] [place] [facility] Comment on above: Performed By: #### H BSANS #### [facility] [address] [place] [address] Billy Quita Potassium [Moles/Vol] 4.2 mmol/L Normal 3.4-5.0 [facility] [place] [facility] Comment on above: Performed By: #### H BSANS #### [facility] [address] [place] [address] Billy Devlin Sodium [Moles/Vol] 138 mmol/L Normal 137-[address] [facility] Comment on above: Performed By: #### H BSANS #### [facility] [address] [place] [address] Billy Devlin Urea nitrogen [Mass/Vol] 7.0 mg/dL Critically low 9.0-20.0 [facility] Comment on above: Performed By: #### H BSANS #### [facility] [address] [place] [address] Billy Devlin CBC AUTO DIFFon 04-27-2021 BASO # 0.0 103/ul Normal 0.0-0.1 [facility] Comment on above: Performed By: #### T 7, LIPA, TSH, AMADOU, CMP #### [facility] [address] [place] [address] Dr. Krystle Heaton Basophils/100 WBC (Bld) 0.9 % Normal 0.2-2.0 [facility] Comment on above: Performed By: #### T 7, LIPA, TSH, AMADUO, CMP #### [facility] [address] [place] [address] Dr. Krystle Heaton EO # 0.1 103/ul Normal 0.0-0.7 [facility] Comment on above: Performed By: #### T 7, LIPA, TSH, AMADOU, CMP #### [facility] [address] [place] [address] Dr. Krystle Heaton Eosinophils/100 WBC (Bld) 2.6 % Normal 0.9-7.0 [facility] Comment on above: Performed By: #### T 7, LIPA, TSH, AMADOU, CMP #### [facility] [address] [place] [address] Dr. Krystle Heaton Erythrocyte distribution width (RBC) [Ratio] 12.4 % Normal 11.0-15.0 [facility] Comment on above: Performed By: #### T 7, LIPA, TSH, AMADOU, CMP #### [facility] [address] [place] [address] Dr. Krystle Heaton Hematocrit (Bld) [Volume fraction] 36.8 % Critically low 42.0-54.0 [facility] Comment on above: Performed By: #### T 7, LIPA, TSH, AMADOU, CMP #### [facility] [address] [place] [address] Dr. Krystle Heaton Hemoglobin (Bld) [Mass/Vol] 12.0 g/dL Critically low 14.0-18.0 [facility] Comment on above: Performed By: #### T 7, LIPA, TSH, AMADOU, CMP #### [facility] [address] [place] [address] Dr. Krystle Heaton IG # 0.02 10e3/ul Normal 0.00-0.03 [facility] Comment on above: Performed By: #### T 7, LIPA, TSH, AMADOU, CMP #### [facility] [address] [place] [address] Dr. Krystle Heaton IG % 0.4 % Normal 0.0-0.5 [facility] Comment on above: Performed By: #### T 7, LIPA, TSH, AMADOU, CMP #### [facility] [address] [place] [address] Dr. Krystle Heaton LYMPH # 1.2 103/ul Normal 1.2-3.8 [facility] Comment on above: Performed By: #### T 7, LIPA, TSH, AMADOU, CMP #### [facility] [address] [place] [address] Dr. Krystle Heaton Lymphocytes/100 WBC (Bld) 26.0 % Normal 20.5-60.0 [facility] Comment on above: Performed By: #### T 7, LIPA, TSH, AMADOU, CMP #### [facility] [address] [place] [address] Dr. Krystle Heaton MANUAL DIFF REQ NO Normal [facility] Comment on above: Performed By: #### T 7, LIPA, TSH, AMADOU, CMP #### [facility] [address] [place] [address] Dr. Krystle Heaton MCH (RBC) [Entitic mass] 36.4 pg Critically high 25.9-34.0 [facility] Comment on above: Performed By: #### T 7, LIPA, TSH, AMADOU, CMP #### [facility] [address] [place] [address] Dr. Krystle Heaton MCHC (RBC) [Mass/Vol] 32.6 g/dL Normal 29.9-35.2 [facility] Comment on above: Performed By: #### T 7, LIPA, TSH, AMADOU, CMP #### [facility] [address] [place] [address] Dr. Krystle Heaton MCV (RBC) [Entitic vol] 111.5 fL Critically high 80.0-94.0 [facility] Comment on above: Performed By: #### T 7, LIPA, TSH, AMADOU, CMP #### [facility] [address] [place] [address] Dr. Krystle Heaton MONO # 0.5 103/ul Normal 0.3-0.8 [facility] Comment on above: Performed By: #### T 7, LIPA, TSH, AMADOU, CMP #### [facility] [address] [place] [address] Dr. Krystle Heaton Monocytes/100 WBC (Bld) 10.1 % Normal 1.7-12.0 [facility] Comment on above: Performed By: #### T 7, LIPA, TSH, AMADOU, CMP #### [facility] [address] [place] [address] Dr. Krystle Heaton NEUT # 2.8 103/ul Normal 1.4-6.5 [facility] Comment on above: Performed By: #### T 7, LIPA, TSH, AMADOU, CMP #### [facility] [address] [place] [address] Dr. Krystle Heaton Neutrophils/100 WBC (Bld) 60.0 % Normal 43.0-75.0 [facility] Comment on above: Performed By: #### T 7, LIPA, TSH, AMADOU, CMP #### [facility] [address] [place] [address] Dr. Krystle Heaton Platelet mean volume (Bld) [Entitic vol] 11.0 fL Normal 9.5-13.5 [facility] Comment on above: Performed By: #### T 7, LIPA, TSH, AMADOU, CMP #### [facility] [address] [place] [address] Dr. Krystle Heaton PLT 140 103/ul Critically low 150-450 [facility] Comment on above: Performed By: #### T 7, LIPA, TSH, AMADOU, CMP #### [facility] [address] [place] [address] Dr. Krystle Heaton RBC 3.30 106/ul Critically low 4.70-6.10 [facility] Comment on above: Performed By: #### T 7, LIPA, TSH, AMADOU, CMP #### [facility] [address] [place] [address] Dr. Krystle Heaton WBC 4.7 103/ul Normal 4.0-11.0 [facility] Comment on above: Performed By: #### T 7, LIPA, TSH, AMADOU, CMP #### [facility] [address] [place] [address] Dr. Krystle Heaton FERRITINon 04-27-2021 Ferritin [Mass/Vol] 845.0 ng/mL Critically high 17.9-464.0 [facility] Comment on above: Performed By: #### F ERR #### [facility] [address] [place] [address] Dr. Krystle Heaton CBC AUTO DIFFon 04-18-2021 BASO # 0.1 103/ul Normal 0.0-0.1 [facility] Comment on above: Performed By: #### T 7, LIPA, TSH, AMADOU, CMP #### [facility] [address] [place] [address] Dr. Krystle Heaton Basophils/100 WBC (Bld) 1.1 % Normal 0.2-2.0 [facility] Comment on above: Performed By: #### T 7, LIPA, TSH, AMADOU, CMP #### [facility] [address] [place] [address] Dr. Krystle Heaton EO # 0.1 103/ul Normal 0.0-0.7 [facility] Comment on above: Performed By: #### T 7, LIPA, TSH, AMADOU, CMP #### [facility] [address] [place] [address] Dr. Krystle Heaton Eosinophils/100 WBC (Bld) 2.2 % Normal 0.9-7.0 [facility] Comment on above: Performed By: #### T 7, LIPA, TSH, AMADOU, CMP #### [facility] [address] [place] [address] Dr. Krystle Heaton Erythrocyte distribution width (RBC) [Ratio] 13.1 % Normal 11.0-15.0 [facility] Comment on above: Performed By: #### T 7, LIPA, TSH, AMADOU, CMP #### [facility] [address] [place] [address] Dr. Krystle Heaton Hematocrit (Bld) [Volume fraction] 35.2 % Critically low 42.0-54.0 [facility] Comment on above: Performed By: #### T 7, LIPA, TSH, AMADOU, CMP #### [facility] [address] [place] [address] Dr. Krystle Heaton Hemoglobin (Bld) [Mass/Vol] 11.8 g/dL Critically low 14.0-18.0 [facility] Comment on above: Performed By: #### T 7, LIPA, TSH, AMADOU, CMP #### [facility] [address] [place] [address] Dr. Krystle Heaton IG # 0.01 10e3/ul Normal 0.00-0.03 [facility] Comment on above: Performed By: #### T 7, LIPA, TSH, AMADOU, CMP #### [facility] [address] [place] [address] Dr. Krystle Heaton IG % 0.2 % Normal 0.0-0.5 [facility] Comment on above: Performed By: #### T 7, LIPA, TSH, AMADOU, CMP #### [facility] [address] [place] [address] Dr. Krystle Heaton LYMPH # 1.6 103/ul Normal 1.2-3.8 [facility] Comment on above: Performed By: #### T 7, LIPA, TSH, AMADOU, CMP #### [facility] [address] [place] [address] Dr. Krystle Heaton Lymphocytes/100 WBC (Bld) 35.1 % Normal 20.5-60.0 [facility] Comment on above: Performed By: #### T 7, LIPA, TSH, AMADOU, CMP #### [facility] [address] [place] [address] Dr. Krystle Heaton MANUAL DIFF REQ NO Normal [facility] Comment on above: Performed By: #### T 7, LIPA, TSH, AMADOU, CMP #### [facility] [address] [place] [address] Dr. Krystle Heaton MCH (RBC) [Entitic mass] 36.6 pg Critically high 25.9-34.0 [facility] Comment on above: Performed By: #### T 7, LIPA, TSH, AMADOU, CMP #### [facility] [address] [place] [address] Dr. Krystle Heaton MCHC (RBC) [Mass/Vol] 33.5 g/dL Normal 29.9-35.2 [facility] Comment on above: Performed By: #### T 7, LIPA, TSH, AMADOU, CMP #### [facility] [address] [place] [address] Dr. Krystle Heaton MCV (RBC) [Entitic vol] 109.3 fL Critically high 80.0-94.0 [facility] Comment on above: Performed By: #### T 7, LIPA, TSH, AMADOU, CMP #### [facility] [address] [place] [address] Dr. Krystle Heaton MONO # 0.5 103/ul Normal 0.3-0.8 [facility] Comment on above: Performed By: #### T 7, LIPA, TSH, AMADOU, CMP #### [facility] [address] [place] [address] Dr. Krystle Heaton Monocytes/100 WBC (Bld) 11.0 % Normal 1.7-12.0 [facility] Comment on above: Performed By: #### T 7, LIPA, TSH, AMADOU, CMP #### [facility] [address] [place] [address] Dr. Krystle Heaton NEUT # 2.2 103/ul Normal 1.4-6.5 [facility] Comment on above: Performed By: #### T 7, LIPA, TSH, AMADOU, CMP #### [facility] [address] [place] [address] Dr. Krystle Heaton Neutrophils/100 WBC (Bld) 50.4 % Normal 43.0-75.0 [facility] Comment on above: Performed By: #### T 7, LIPA, TSH, AMADOU, CMP #### [facility] [address] [place] [address] Dr. Krystle Heaton Platelet mean volume (Bld) [Entitic vol] 10.9 fL Normal 9.5-13.5 [facility] Comment on above: Performed By: #### T 7, LIPA, TSH, AMADOU, CMP #### [facility] [address] [place] [address] Dr. Krystle Heaton PLT 158 103/ul Normal 150-450 [facility] Comment on above: Performed By: #### T 7, LIPA, TSH, AMADOU, CMP #### [facility] [address] [place] [address] Dr. Krystle Heaton RBC 3.22 106/ul Critically low 4.70-6.10 [facility] Comment on above: Performed By: #### T 7, LIPA, TSH, AMADOU, CMP #### [facility] [address] [place] [address] Dr. Krystle Heaton WBC 4.5 103/ul Normal 4.0-11.0 [facility] Comment on above: Performed By: #### T 7, LIPA, TSH, AMADOU, CMP #### [facility] [address] [place] [address] Dr. Krystle Heaton FERRITINon 04-18-2021 Ferritin [Mass/Vol] ng/mL Critically high 17.9-464.0 [facility] Comment on above: Performed By: #### H BSANS #### [facility] [address] [place] [address] Billy Devlin CBC AUTO DIFFon 04-13-2021 BASO # 0.0 103/ul Normal 0.0-0.1 [facility] Comment on above: Performed By: #### T 7, LIPA, TSH, AMADOU, CMP #### [facility] [address] [place] [address] Dr. Krystle Heaton Basophils/100 WBC (Bld) 0.6 % Normal 0.2-2.0 [facility] Comment on above: Performed By: #### T 7, LIPA, TSH, AMADOU, CMP #### [facility] [address] [place] [address] Dr. Krystle Heaton EO # 0.1 103/ul Normal 0.0-0.7 [facility] Comment on above: Performed By: #### T 7, LIPA, TSH, AMADOU, CMP #### [facility] [address] [place] [address] Dr. Krystle Heaton Eosinophils/100 WBC (Bld) 3.2 % Normal 0.9-7.0 [facility] Comment on above: Performed By: #### T 7, LIPA, TSH, AMADOU, CMP #### [facility] [address] [place] [address] Dr. Krystle Heaton Erythrocyte distribution width (RBC) [Ratio] 13.6 % Normal 11.0-15.0 [facility] Comment on above: Performed By: #### T 7, LIPA, TSH, AMADOU, CMP #### [facility] [address] [place] [address] Dr. Krystle Heaton Hematocrit (Bld) [Volume fraction] 35.3 % Critically low 42.0-54.0 [facility] Comment on above: Performed By: #### T 7, LIPA, TSH, AMADOU, CMP #### [facility] [address] [place] [address] Dr. Krystle Heaton Hemoglobin (Bld) [Mass/Vol] 11.9 g/dL Critically low 14.0-18.0 [facility] Comment on above: Performed By: #### T 7, LIPA, TSH, AMADOU, CMP #### [facility] [address] [place] [address] Dr. Krystle Heaton IG # 0.01 10e3/ul Normal 0.00-0.03 [facility] Comment on above: Performed By: #### T 7, LIPA, TSH, AMADOU, CMP #### [facility] [address] [place] [address] Dr. Krystle Heaton IG % 0.3 % Normal 0.0-0.5 [facility] Comment on above: Performed By: #### T 7, LIPA, TSH, AMADOU, CMP #### [facility] [address] [place] [address] Dr. Krystle Heaton LYMPH # 1.1 103/ul Critically low 1.2-3.8 [facility] Comment on above: Performed By: #### T 7, LIPA, TSH, AMADOU, CMP #### [facility] [address] [place] [address] Dr. Krystle Heaton Lymphocytes/100 WBC (Bld) 35.1 % Normal 20.5-60.0 [facility] Comment on above: Performed By: #### T 7, LIPA, TSH, AMADOU, CMP #### [facility] [address] [place] [address] Dr. Krystle Heaton MANUAL DIFF REQ NO Normal [facility] Comment on above: Performed By: #### T 7, LIPA, TSH, AMADOU, CMP #### [facility] [address] [place] [address] Dr. Krystle Heaton MCH (RBC) [Entitic mass] 37.1 pg Critically high 25.9-34.0 [facility] Comment on above: Performed By: #### T 7, LIPA, TSH, AMADOU, CMP #### [facility] [address] [place] [address] Dr. Krystle Heaton MCHC (RBC) [Mass/Vol] 33.7 g/dL Normal 29.9-35.2 [facility] Comment on above: Performed By: #### T 7, LIPA, TSH, AMADOU, CMP #### [facility] [address] [place] [address] Dr. Krystle Heaton MCV (RBC) [Entitic vol] 110.0 fL Critically high 80.0-94.0 [facility] Comment on above: Result Comment: macr ocytosis 3+ Performed By: #### T 7, LIPA, TSH, AMADOU, CMP #### [facility] [address] [place] [address] Dr. Krystle Heaton MONO # 0.3 103/ul Normal 0.3-0.8 [facility] Comment on above: Performed By: #### T 7, LIPA, TSH, AMADOU, CMP #### [facility] [address] [place] [address] Dr. Krystle Heaton Monocytes/100 WBC (Bld) 10.7 % Normal 1.7-12.0 [facility] Comment on above: Performed By: #### T 7, LIPA, TSH, AMADOU, CMP #### [facility] [address] [place] [address] Dr. Krystle Heaton NEUT # 1.5 103/ul Normal 1.4-6.5 [facility] Comment on above: Performed By: #### T 7, LIPA, TSH, AMADOU, CMP #### [facility] [address] [place] [address] Dr. Krystle Heaton Neutrophils/100 WBC (Bld) 50.1 % Normal 43.0-75.0 [facility] Comment on above: Performed By: #### T 7, LIPA, TSH, AMADOU, CMP #### [facility] [address] [place] [address] Dr. Krystle Heaton Platelet mean volume (Bld) [Entitic vol] 10.8 fL Normal 9.5-13.5 [facility] Comment on above: Performed By: #### T 7, LIPA, TSH, AMADOU, CMP #### [facility] [address] [place] [address] Dr. Krystle Heaton PLT 131 103/ul Critically low 150-450 [facility] Comment on above: Performed By: #### T 7, LIPA, TSH, AMADOU, CMP #### [facility] [address] [address] [address] Krystle Heaton RBC 3.21 106/ul Critically low 4.70-6.10 [facility] Comment on above: Performed By: #### T 7, LIPA, TSH, AMADOU, CMP #### [facility] [address] [address] [address] Krystle Heaton WBC 3.1 103/ul Critically low 4.0-11.0 [facility] Comment on above: Performed By: #### T 7, LIPA, TSH, AMADUO, CMP #### [facility] [address] [address] [address] Krystle Heaton FERRITINon 04-13-2021 Ferritin [Mass/Vol] ng/mL Critically high 17.9-464.0 [facility] Comment on above: Performed By: #### F ERR #### [facility] [address] [address] [address] Krystle Heaton Initial Visit (Gastroenterol ogy)on [...] 05-28-2021 BASO # 0.0 103/ul Normal 0.0-0.1 [facility] Comment on above: Performed By: #### H ALEXANDER #### [facility] [address] [place] [address] Billy Quita Basophils/100 WBC (Bld) 0.9 % Normal 0.2-2.0 [facility] Comment on above: Performed By: #### H ALEXANDER #### [facility] [address] [place] [address] Billy Quita EO # 0.1 103/ul Normal 0.0-0.7 [facility] Comment on above: Performed By: #### H ALEXANDER #### [facility] [address] [place] [address] Billy Quita Eosinophils/100 WBC (Bld) 3.0 % Normal 0.9-7.0 [facility] Comment on above: Performed By: #### H ALEXANDER #### [facility] [address] [place] [address] Billy Quita Erythrocyte distribution width (RBC) [Ratio] 13.6 % Normal 11.0-15.0 [facility] Comment on above: Performed By: #### H ALEXANDER #### [facility] [address] [place] [address] Billy Quita Hematocrit (Bld) [Volume fraction] 39.1 % Critically low 42.0-54.0 [facility] Comment on above: Performed By: #### H ALEXANDER #### [facility] [address] [place] [address] Billy Quita Hemoglobin (Bld) [Mass/Vol] 13.1 g/dL Critically low 14.0-18.0 [facility] Comment on above: Performed By: #### H ALEXANDER #### [facility] [address] [place] [address] Billy Quita IG # 0.02 10e3/ul Normal 0.00-0.03 [facility] Comment on above: Performed By: #### H ALEXANDER #### [facility] [address] [place] [address] Billycarrillo Devlin IG % 0.5 % Normal 0.0-0.5 [facility] Comment on above: Performed By: #### H ALEXANDER #### [facility] [address] [place] [address] Billy Devlin LYMPH # 1.1 103/ul Critically low 1.2-3.8 [facility] Comment on above: Performed By: #### H ALEXANDER #### [facility] [address] [place] [address] Billy Quita Lymphocytes/100 WBC (Bld) 26.7 % Normal 20.5-60.0 [facility] Comment on above: Performed By: #### H ALEXANDER #### [facility] [address] [place] [address] Billy Devlin MANUAL DIFF REQ NO Normal [facility] Comment on above: Performed By: #### H ALEXANDER #### [facility] [address] [place] [address] Billy Quita MCH (RBC) [Entitic mass] 36.7 pg Critically high 25.9-34.0 [facility] Comment on above: Performed By: #### H ALEXANDER #### [facility] [address] [place] [address] Billy Deanen MCHC (RBC) [Mass/Vol] 33.5 g/dL Normal 29.9-35.2 [facility] Comment on above: Result Comment: macr ocytosis Performed By: #### H ALEXANDER #### [facility] [address] [place] [address] Billy Quita MCV (RBC) [Entitic vol] 109.5 fL Critically high 80.0-94.0 [facility] Comment on above: Performed By: #### H ALEXANDER #### [facility] [address] [place] [address] Billy Devlin MONO # 0.4 103/ul Normal 0.3-0.8 [facility] Comment on above: Performed By: #### H ALEXANDER #### [facility] [address] [place] [address] Billy Devlin Monocytes/100 WBC (Bld) 8.7 % Normal 1.7-12.0 [facility] Comment on above: Performed By: #### H ANJUMNS #### [facility] [address] [place] [address] Billy Devlin NEUT # 2.6 103/ul Normal 1.4-6.5 [facility] Comment on above: Performed By: #### H BSANS #### [facility] [address] [place] [address] Billy Devlin Neutrophils/100 WBC (Bld) 60.2 % Normal 43.0-75.0 [facility] Comment on above: Performed By: #### H ALEXANDER #### [facility] [address] [place] [address] Billy Devlin Platelet mean volume (Bld) [Entitic vol] 11.1 fL Normal 9.5-13.5 [facility] Comment on above: Performed By: #### H BSASUZANNE #### [facility] [address] [place] [address] Billycarrillo Devlin PLT 162 103/ul Normal 150-450 [facility] Comment on above: Performed By: #### H BSASUZANNE #### [facility] [address] [place] [address] Billy Devlin RBC 3.57 106/ul Critically low 4.70-6.10 [facility] Comment on above: Performed By: #### H BSASUZANNE #### [facility] [address] [place] [address] Billycarrillo Devlin WBC 4.3 103/ul Normal 4.0-11.0 [facility] Comment on above: Performed By: #### H BSANS #### [facility] [address] [place] [address] Billy Devlin FERRITINon 04-06-2021 Ferritin [Mass/Vol] ng/mL Critically high 17.9-464.0 [facility] Comment on above: Performed By: #### T 7, LIPA, TSH, AMADOU, CMP #### [facility] [address] [place], [place] [address] Dr. Krystle Heaton FREE T4on 04-06-2021 Free T4 [Mass/Vol] 0.73 ng/dL Critically low 0.78-2.19 [facility] Comment on above: Performed By: #### T 7, LIPA, TSH, AMADOU, CMP #### [facility] [address] [place] [address] Dr. Krystle Heaton IRON AND TIBCon 04-06-2021 % SATURATION 54.8 % Normal [facility] Comment on above: Performed By: #### T 7, LIPA, TSH, AMADOU, CMP #### [facility] [address] [place] [address] Dr. Krystle Heaton Iron [Mass/Vol] 161.0 ug/dL Normal 49.0-181.0 [facility] Comment on above: Performed By: #### T 7, LIPA, TSH, AMADOU, CMP #### [facility] [address] [place] [address] Dr. Krystle Heaton TIBC DIRECT 294.0 ug/dL Normal 261.0-497.0 [facility] Comment on above: Performed By: #### T 7, LIPA, TSH, AMADOU, CMP #### [facility] [address] [place] [address] Dr. Krystle Heaton PROF 14(COMP METB)on 021 Albumin [Mass/Vol] 3.7 g/dL Normal 3.5-5.[address] [facility] Comment on above: Performed By: #### T 7, LIPA, TSH, AMADOU, CMP #### [facility] [address] [place] [address] Dr. Krystle Heaton Albumin/Globulin [Mass ratio] 1.0 {ratio} Normal [facility] Comment on above: Performed By: #### T 7, LIPA, TSH, AMADOU, CMP #### [facility] [address] [place] [address] Dr. Krystle Heaton ALP [Catalytic activity/Vol] 83 U/L Normal 38-126 [facility] Comment on above: Performed By: #### T 7, LIPA, TSH, AMADOU, CMP #### [facility] [address] [place] [address] Dr. Krystle Heaton ALT [Catalytic activity/Vol] 140 U/L Critically high 21-72 [facility] Comment on above: Performed By: #### T 7, LIPA, TSH, AMADOU, CMP #### [facility] [address] [place] [address] Dr. Krystle Heaton Anion gap [Moles/Vol] 15.8 mmol/L Normal [facility] Comment on above: Performed By: #### T 7, LIPA, TSH, AMADOU, CMP #### [facility] [address] [place] [address] Dr. Krystle Heaton AST [Catalytic activity/Vol] 186 U/L Critically high 17-59 [facility] Comment on above: Performed By: #### T 7, LIPA, TSH, AMADOU, CMP #### [facility] [address] [place] [address] Dr. Krystle Heaton Bilirubin [Mass/Vol] 0.5 mg/dL Normal 0.2-1.3 [facility] Comment on above: Performed By: #### T 7, LIPA, TSH, AMADOU, CMP #### [facility] [address] [place] [address] Dr. Krystle Heaton Calcium [Mass/Vol] 9.0 mg/dL Normal 8.4-10.[address] [facility] Comment on above: Performed By: #### T 7, LIPA, TSH, AMADOU, CMP #### [facility] [address] [place] [address] Dr. Krystle Heaton Chloride [Moles/Vol] 101 mmol/L Normal 98-107 [facility] Comment on above: Performed By: #### T 7, LIPA, TSH, AMADOU, CMP #### [facility] [address] [place] [address] Dr. Krystle Heaton CO2 [Moles/Vol] 25.8 mmol/L Normal 22.0-30.0 [facility] Comment on above: Performed By: #### T 7, LIPA, TSH, AMADOU, CMP #### [facility] [address] [place] [address] Dr. Krystle Heaton Creatinine [Mass/Vol] 1.07 mg/dL Normal 0.66-1.25 [facility] Comment on above: Performed By: #### T 7, LIPA, TSH, AMADOU, CMP #### [facility] [address] [address] [address] Krystle Heaton EGFR-AF MALAYSIAN >60 Normal >=60 [facility] Comment on above: Performed By: #### T 7, LIPA, TSH, AMADOU, CMP #### [facility] [address] [address] [address] Krystle Heaton EGFR-NON AF MALAYSIAN >60 Normal >=60 [facility] Comment on above: Performed By: #### T 7, LIPA, TSH, AMADOU, CMP #### [facility] [address] [address] [address] Krystle Heaton Globulin (S) [Mass/Vol] 3.7 g/dL Normal [facility] Comment on above: Performed By: #### T 7, LIPA, TSH, AMADOU, CMP #### [facility] [address] [address] [address] Krystle Heaton Glucose [Mass/Vol] 104 mg/dL Normal 74-106 [facility] Comment on above: Performed By: #### T 7, LIPA, TSH, AMADOU, CMP #### [facility] [address] [address] [address] Krystle Heaton Potassium [Moles/Vol] 4.6 mmol/L Normal 3.4-5.0 [facility] Comment on above: Performed By: #### T 7, LIPA, TSH, AMADOU, CMP #### [facility] [address] [address] [address] Krystle Heaton Protein [Mass/Vol] 7.4 g/dL Normal 6.1-8.2 [facility] Comment on above: Performed By: #### T 7, LIPA, TSH, AMADOU, CMP #### [facility] [address] [address] [address] Krystle Heaton Sodium [Moles/Vol] 138 mmol/L Normal 137-145 [facility] Comment on above: Performed By: #### T 7, LIPA, TSH, AMADOU, CMP #### [facility] [address] [place] [address] Dr. Krystle Heaton Urea nitrogen [Mass/Vol] 10.0 mg/dL Normal 9.0-20.0 [facility] Comment on above: Performed By: #### T 7, LIPA, TSH, AMADOU, CMP #### [facility] [address] [place] [address] Dr. Krystle Heaton Urea nitrogen/Creatinine [Mass ratio] 9.3 mg/mg Normal [facility] Comment on above: Performed By: #### T 7, LIPA, TSH, AMADOU, CMP #### [facility] [address] [place] [address] Dr. Krystle Heaton TSHon 04-06-2021 TSH 1.945 uIU/mL Normal 0.470-4.680 [facility] Comment on above: Performed By: #### T 7, LIPA, TSH, AMADOU, CMP #### [facility] [address] [place] [address] Dr. Krystle Heaton TSH RANGE SEE BELOW Normal [facility] Comment on above: Result Comment: <0.3 4 UIU/ml HYPERTHYROID 0.34-5.60 UIU/ml EUTHYROID >5.60 UIU/ml HYPOTHYROID Performed By: #### T 7, LIPA, TSH, AMADOU, CMP #### [facility] [address] [place] [address] Dr. Krystle Heaton CBC AUTO DIFFon 03-30-2021 BASO # 0.0 103/ul Normal 0.0-0.1 [facility] Comment on above: Performed By: #### T 7, LIPA, TSH, AMADOU, CMP #### [facility] [address] [place] [address] Dr. Krystle Heaton Basophils/100 WBC (Bld) 0.8 % Normal 0.2-2.0 [facility] Comment on above: Performed By: #### T 7, LIPA, TSH, AMADOU, CMP #### [facility] [address] [place] [address] Dr. Krystle Heaton EO # 0.1 103/ul Normal 0.0-0.7 [facility] Comment on above: Performed By: #### T 7, LIPA, TSH, AMADOU, CMP #### [facility] [address] [place] [address] Dr. Krystle Heaton Eosinophils/100 WBC (Bld) 3.0 % Normal 0.9-7.0 [facility] Comment on above: Performed By: #### T 7, LIPA, TSH, AMADOU, CMP #### [facility] [address] [place] [address] Dr. Krystle Heaton Erythrocyte distribution width (RBC) [Ratio] 13.9 % Normal 11.0-15.0 [facility] Comment on above: Performed By: #### T 7, LIPA, TSH, AMADOU, CMP #### [facility] [address] [place] [address] Dr. Krystle Heaton Hematocrit (Bld) [Volume fraction] 40.4 % Critically low 42.0-54.0 [facility] Comment on above: Performed By: #### T 7, LIPA, TSH, AMADOU, CMP #### [facility] [address] [place] [address] Dr. Krystle Heaton Hemoglobin (Bld) [Mass/Vol] 13.5 g/dL Critically low 14.0-18.0 [facility] Comment on above: Performed By: #### T 7, LIPA, TSH, AMADOU, CMP #### [facility] [address] [place] [address] Dr. Krystle Heaton IG # 0.01 10e3/ul Normal 0.00-0.03 [facility] Comment on above: Performed By: #### T 7, LIPA, TSH, AMADOU, CMP #### [facility] [address] [place] [address] Dr. Krystle Heaton IG % 0.3 % Normal 0.0-0.5 [facility] Comment on above: Performed By: #### T 7, LIPA, TSH, AMADOU, CMP #### [facility] [address] [place] [address] Dr. Krystle Heaton LYMPH # 1.2 103/ul Normal 1.2-3.8 [facility] Comment on above: Performed By: #### T 7, LIPA, TSH, AMADOU, CMP #### [facility] [address] [place] [address] Dr. Krystle Heaton Lymphocytes/100 WBC (Bld) 32.7 % Normal 20.5-60.0 [facility] Comment on above: Performed By: #### T 7, LIPA, TSH, AMADOU, CMP #### [facility] [address] [place] [address] Dr. Krystle Heaton MANUAL DIFF REQ NO Normal [facility] Comment on above: Performed By: #### T 7, LIPA, TSH, AMADOU, CMP #### [facility] [address] [place] [address] Dr. Krystle Heaton MCH (RBC) [Entitic mass] 36.5 pg Critically high 25.9-34.0 [facility] Comment on above: Performed By: #### T 7, LIPA, TSH, AMADOU, CMP #### [facility] [address] [place] [address] Dr. Krystle Heaton MCHC (RBC) [Mass/Vol] 33.4 g/dL Normal 29.9-35.2 [facility] Comment on above: Result Comment: MACR OCYTOSIS PRESENT Performed By: #### T 7, LIPA, TSH, AMADOU, CMP #### [facility] [address] [place] [address] Dr. Krystle Heaton MCV (RBC) [Entitic vol] 109.2 fL Critically high 80.0-94.0 [facility] Comment on above: Performed By: #### T 7, LIPA, TSH, AMADOU, CMP #### [facility] [address] [place] [address] Dr. Krystle Heaton MONO # 0.4 103/ul Normal 0.3-0.8 [facility] Comment on above: Performed By: #### T 7, LIPA, TSH, AMADOU, CMP #### [facility] [address] [place] [address] Dr. Krystle Heaton Monocytes/100 WBC (Bld) 11.4 % Normal 1.7-12.0 [facility] Comment on above: Performed By: #### T 7, LIPA, TSH, AMADOU, CMP #### [facility] [address] [place] [address] Dr. Krystle Heaton NEUT # 1.9 103/ul Normal 1.4-6.5 [facility] Comment on above: Performed By: #### T 7, LIPA, TSH, AMADOU, CMP #### [facility] [address] [place] [address] Dr. Krystle Heaton Neutrophils/100 WBC (Bld) 51.8 % Normal 43.0-75.0 [facility] Comment on above: Performed By: #### T 7, LIPA, TSH, AMADOU, CMP #### [facility] [address] [place] [address] Dr. Krystle Heaton Platelet mean volume (Bld) [Entitic vol] 10.8 fL Normal 9.5-13.5 [facility] Comment on above: Performed By: #### T 7, LIPA, TSH, AMADOU, CMP #### [facility] [address] [place] [address] Dr. Krystle Heaton PLT 184 103/ul Normal 150-450 [facility] Comment on above: Performed By: #### T 7, LIPA, TSH, AMADOU, CMP #### [facility] [address] [place] [address] Dr. Krystle Heaton RBC 3.70 106/ul Critically low 4.70-6.10 [facility] Comment on above: Performed By: #### T 7, LIPA, TSH, AMADOU, CMP #### [facility] [address] [place] [address] Dr. Krystle Heaton WBC 3.6 103/ul Critically low 4.0-11.0 [facility] Comment on above: Performed By: #### T 7, LIPA, TSH, AMADOU, CMP #### [facility] [address] [place] [address] Dr. Krystle Heaton FERRITINon 03-30-2021 Ferritin [Mass/Vol] ng/mL Critically high 17.9-464.0 [facility] Comment on above: Performed By: #### F ERR #### [facility] [address] [place] [address] Dr. Krystle Heaton FREE T4on 03-30-2021 Free T4 [Mass/Vol] 0.83 ng/dL Normal 0.78-2.19 [facility] Comment on above: Performed By: #### F ERR #### [facility] [address] [place] [address] Dr. Krystle Heaton IRON AND TIBCon 03-30-2021 % SATURATION 78.5 % Normal [facility] Comment on above: Performed By: #### F ERR #### [facility] [address] [place] [address] Dr. Krystle Heaton Iron [Mass/Vol] 230.0 ug/dL Critically high 49.0-181.0 [facility] Comment on above: Performed By: #### F ERR #### [facility] [address] [place] [address] Dr. Krystle Heaton TIBC DIRECT 293.0 ug/dL Normal 261.0-497.0 [facility] Comment on above: Performed By: #### F ERR #### [facility] [address] [place] [address] Dr. Krystle Heaton PROF 14(COMP METB)on 021 Albumin [Mass/Vol] 3.8 g/dL Normal 3.5-5.0 [facility] Comment on above: Performed By: #### T 7, LIPA, TSH, AMADOU, CMP #### [facility] [address] [place] [address] Dr. Krystle Heaton Albumin/Globulin [Mass ratio] 1.0 {ratio} Normal [facility] Comment on above: Performed By: #### T 7, LIPA, TSH, AMADOU, CMP #### [facility] [address] [address] [address] Krystle Heaton ALP [Catalytic activity/Vol] 90 U/L Normal 38-126 [facility] Comment on above: Performed By: #### T 7, LIPA, TSH, AMADOU, CMP #### [facility] [address] [place] [address] Dr. Krystle Heaton ALT [Catalytic activity/Vol] 149 U/L Critically high 21-72 [facility] Comment on above: Performed By: #### T 7, LIPA, TSH, AMADOU, CMP #### [facility] [address] [place] [address] Dr. Krystle Heaton Anion gap [Moles/Vol] 16.0 mmol/L Normal [facility] Comment on above: Performed By: #### T 7, LIPA, TSH, AMADOU, CMP #### [facility] [address] [place] [address] Dr. Krystle Heaton AST [Catalytic activity/Vol] 187 U/L Critically high 17-59 [facility] Comment on above: Performed By: #### T 7, LIPA, TSH, AMADOU, CMP #### [facility] [address] [place] [address] Dr. Krystle Heaton Bilirubin [Mass/Vol] 0.6 mg/dL Normal 0.2-1.3 [facility] Comment on above: Performed By: #### T 7, LIPA, TSH, AMADOU, CMP #### [facility] [address] [place] [address] Dr. Krystle Heaton Calcium [Mass/Vol] 9.2 mg/dL Normal 8.4-10.2 [facility] Comment on above: Performed By: #### T 7, LIPA, TSH, AMADOU, CMP #### [facility] [address] [place] [address] Dr. Krystle Heaton Chloride [Moles/Vol] 100 mmol/L Normal 98-107 [facility] Comment on above: Performed By: #### T 7, LIPA, TSH, AMADOU, CMP #### [facility] [address] [place] [address] Dr. Krystle Heaton CO2 [Moles/Vol] 26.2 mmol/L Normal 22.0-30.0 [facility] Comment on above: Performed By: #### T 7, LIPA, TSH, AMADOU, CMP #### [facility] [address] [place] [address] Dr. Krystle Heaton Creatinine [Mass/Vol] 1.07 mg/dL Normal 0.66-1.25 [facility] Comment on above: Performed By: #### T 7, LIPA, TSH, AMADOU, CMP #### [facility] [address] [place] [address] Dr. Krystle Heaton EGFR-AF MALAYSIAN >60 Normal >=60 [facility] Comment on above: Performed By: #### T 7, LIPA, TSH, AMADOU, CMP #### [facility] [address] [place] [address] Dr. Krystle Heaton EGFR-NON AF MALAYSIAN >60 Normal >=60 [facility] Comment on above: Performed By: #### T 7, LIPA, TSH, AMADOU, CMP #### [facility] [address] [place] [address] Dr. Krystle Heaton Globulin (S) [Mass/Vol] 3.8 g/dL Normal [facility] Comment on above: Performed By: #### T 7, LIPA, TSH, AMADOU, CMP #### [facility] [address] [place] [address] Dr. Krystle Heaton Glucose [Mass/Vol] 110 mg/dL Critically high 74-106 [facility] Comment on above: Performed By: #### T 7, LIPA, TSH, AMADOU, CMP #### [facility] [address] [place] [address] Dr. Krystle Heaton Potassium [Moles/Vol] 4.2 mmol/L Normal 3.4-5.0 [facility] Comment on above: Performed By: #### T 7, LIPA, TSH, AMADOU, CMP #### [facility] [address] [place] [address] Dr. Krystle Heaton Protein [Mass/Vol] 7.6 g/dL Normal 6.1-8.[address] [facility] Comment on above: Performed By: #### T 7, LIPA, TSH, AMADOU, CMP #### [facility] [address] [place] [address] Dr. Krystle Heaton Sodium [Moles/Vol] 138 mmol/L Normal 137-145 [facility] Comment on above: Performed By: #### T 7, LIPA, TSH, AMADOU, CMP #### [facility] [address] [place] [address] Dr. Krystle Heaton Urea nitrogen [Mass/Vol] 9.0 mg/dL Normal 9.0-20.0 [facility] Comment on above: Performed By: #### T 7, LIPA, TSH, AMADOU, CMP #### [facility] [address] [place] [address] Dr. Krystle Heaton Urea nitrogen/Creatinine [Mass ratio] 8.4 mg/mg Normal [facility] Comment on above: Performed By: #### T 7, LIPA, TSH, AMADOU, CMP #### [facility] [address] [place] [address] Dr. Krystle Heaton TSHon 03-30-2021 TSH 1.030 uIU/mL Normal 0.470-4.680 [facility] Comment on above: Performed By: #### T 7, LIPA, TSH, AMADOU, CMP #### [facility] [address] [place] [address] Dr. Krystle Heaton TSH RANGE SEE BELOW Normal [facility] Comment on above: Result Comment: <0.3 4 UIU/ml HYPERTHYROID 0.34-5.60 UIU/ml EUTHYROID >5.60 UIU/ml HYPOTHYROID Performed By: #### T 7, LIPA, TSH, AMADOU, CMP #### [facility] [address] [place] [address] Dr. Krystle Heaton CBC AUTO DIFFon 03-22-2021 BASO # 0.0 103/ul Normal 0.0-0.1 [facility] Comment on above: Performed By: #### T 7, LIPA, TSH, AMADOU, CMP #### [facility] [address] [place] [address] Dr. Krystle Heaton Basophils/100 WBC (Bld) 0.6 % Normal 0.2-2.0 [facility] Comment on above: Performed By: #### T 7, LIPA, TSH, AMADOU, CMP #### [facility] [address] [place] [address] Dr. Krystle Heaton EO # 0.1 103/ul Normal 0.0-0.7 [facility] Comment on above: Performed By: #### T 7, LIPA, TSH, AMADOU, CMP #### [facility] [address] [place] [address] Dr. Krystle Heaton Eosinophils/100 WBC (Bld) 2.1 % Normal 0.9-7.0 [facility] Comment on above: Performed By: #### T 7, LIPA, TSH, AMADOU, CMP #### [facility] [address] [place] [address] Dr. Krystle Heaton Erythrocyte distribution width (RBC) [Ratio] 12.7 % Normal 11.0-15.0 [facility] Comment on above: Performed By: #### T 7, LIPA, TSH, AMADOU, CMP #### [facility] [address] [place] [address] Dr. Krystle Heaton Hematocrit (Bld) [Volume fraction] 37.5 % Critically low 42.0-54.0 [facility] Comment on above: Performed By: #### T 7, LIPA, TSH, AMADOU, CMP #### [facility] [address] [place] [address] Dr. Krystle Heaton Hemoglobin (Bld) [Mass/Vol] 13.1 g/dL Critically low 14.0-18.0 [facility] Comment on above: Performed By: #### T 7, LIPA, TSH, AMADOU, CMP #### [facility] [address] [place] [address] Dr. Krystle Heaton IG # 0.01 10e3/ul Normal 0.00-0.03 [facility] Comment on above: Performed By: #### T 7, LIPA, TSH, AMADOU, CMP #### [facility] [address] [place] [address] Dr. Krystle Heaton IG % 0.3 % Normal 0.0-0.5 [facility] Comment on above: Performed By: #### T 7, LIPA, TSH, AMADOU, CMP #### [facility] [address] [place] [address] Dr. Krystle Heaton LYMPH # 1.2 103/ul Normal 1.2-3.8 [facility] Comment on above: Performed By: #### T 7, LIPA, TSH, AMADOU, CMP #### [facility] [address] [place] [address] Dr. Krystle Heaton Lymphocytes/100 WBC (Bld) 35.7 % Normal 20.5-60.0 [facility] Comment on above: Performed By: #### T 7, LIPA, TSH, AMADOU, CMP #### [facility] [address] [place] [address] Dr. Krystle Heaton MANUAL DIFF REQ NO Normal [facility] Comment on above: Performed By: #### T 7, LIPA, TSH, AMADOU, CMP #### [facility] [address] [place] [address] Dr. Krystle Haeton MCH (RBC) [Entitic mass] 37.0 pg Critically high 25.9-34.0 [facility] Comment on above: Performed By: #### T 7, LIPA, TSH, AMADOU, CMP #### [facility] [address] [place] [address] Dr. Krystle Heaton MCHC (RBC) [Mass/Vol] 34.9 g/dL Normal 29.9-35.2 [facility] Comment on above: Performed By: #### T 7, LIPA, TSH, AMADOU, CMP #### [facility] [address] [place] [address] Dr. Krystle Heaton MCV (RBC) [Entitic vol] 105.9 fL Critically high 80.0-94.0 [facility] Comment on above: Performed By: #### T 7, LIPA, TSH, AMADOU, CMP #### [facility] [address] [place] [address] Dr. Krystle Heaton MONO # 0.2 103/ul Critically low 0.3-0.8 [facility] Comment on above: Performed By: #### T 7, LIPA, TSH, AMADOU, CMP #### [facility] [address] [address] [address] Krystle Heaton Monocytes/100 WBC (Bld) 6.8 % Normal 1.7-12.0 [facility] Comment on above: Performed By: #### T 7, LIPA, TSH, AMADOU, CMP #### [facility] [address] [place] [address] Dr. Krystle Heaton NEUT # 1.8 103/ul Normal 1.4-6.5 [facility] Comment on above: Performed By: #### T 7, LIPA, TSH, AMADOU, CMP #### [facility] [address] [place] [address] Dr. Krystle Heaton Neutrophils/100 WBC (Bld) 54.5 % Normal 43.0-75.0 [facility] Comment on above: Performed By: #### T 7, LIPA, TSH, AMADOU, CMP #### [facility] [address] [place] [address] Dr. Krystle Heaton Platelet mean volume (Bld) [Entitic vol] 10.4 fL Normal 9.5-13.5 [facility] Comment on above: Performed By: #### T 7, LIPA, TSH, AMADOU, CMP #### [facility] [address] [place] [address] Dr. Krystle Heaton PLT 126 103/ul Critically low 150-450 [facility] Comment on above: Performed By: #### T 7, LIPA, TSH, AMADOU, CMP #### [facility] [address] [place] [address] Dr. Krystle Heaton RBC 3.54 106/ul Critically low 4.70-6.10 [facility] Comment on above: Performed By: #### T 7, LIPA, TSH, AMADOU, CMP #### [facility] [address] [place] [address] Dr. Krystle Heaton WBC 3.4 103/ul Critically low 4.0-11.0 [facility] Comment on above: Performed By: #### T 7, LIPA, TSH, AMADOU, CMP #### [facility] [address] [place] [address] Dr. Krystle Heaton FERRITINon 03-22-2021 Ferritin [Mass/Vol] ng/mL Critically high 17.9-464.0 [facility] Comment on above: Performed By: #### T 7, LIPA, TSH, AMADOU, CMP #### [facility] [address] [place] [address] Dr. Krystle Heaton FREE T4on 03-22-2021 Free T4 [Mass/Vol] 0.78 ng/dL Normal 0.78-2.19 [facility] Comment on above: Performed By: #### T 7, LIPA, TSH, AMADOU, CMP #### [facility] [address] [place] [address] Dr. Krystle Heaton IRON AND TIBCon 03-22-2021 % SATURATION 106.0 % Normal [facility] Comment on above: Performed By: #### T 7, LIPA, TSH, AMADOU, CMP #### [facility] [address] [place] [address] Dr. Krystle Heaton Iron [Mass/Vol] 233.0 ug/dL Critically high 49.0-181.0 [facility] Comment on above: Performed By: #### T 7, LIPA, TSH, AMADOU, CMP #### [facility] [address] [place] [address] Dr. Krystle Heaton TIBC DIRECT 220.0 ug/dL Critically low 261.0-497.0 [facility] Comment on above: Performed By: #### T 7, LIPA, TSH, AMADOU, CMP #### [facility] [address] [place] [address] Dr. Krystle Heaton PROF 14(COMP METB)on 021 Albumin [Mass/Vol] 3.5 g/dL Normal 3.5-5.0 [facility] Comment on above: Performed By: #### T 7, LIPA, TSH, AMADOU, CMP #### [facility] [address] [place] [address] Dr. Krystle Heaton Albumin/Globulin [Mass ratio] 1.0 {ratio} Normal [facility] Comment on above: Performed By: #### T 7, LIPA, TSH, AMADOU, CMP #### [facility] [address] [place] [address] Dr. Krystle Heaton ALP [Catalytic activity/Vol] 77 U/L Normal 38-126 [facility] Comment on above: Performed By: #### T 7, LIPA, TSH, AMADOU, CMP #### [facility] [address] [place] [address] Dr. Krystle Heaton ALT [Catalytic activity/Vol] 95 U/L Critically high 21-72 [facility] Comment on above: Performed By: #### T 7, LIPA, TSH, AMADOU, CMP #### [facility] [address] [place] [address] Dr. Krystle Heaton Anion gap [Moles/Vol] 17.3 mmol/L Normal [facility] Comment on above: Performed By: #### T 7, LIPA, TSH, AMADOU, CMP #### [facility] [address] [place] [address] Dr. Krystle Heaton AST [Catalytic activity/Vol] 161 U/L Critically high 17-59 [facility] Comment on above: Performed By: #### T 7, LIPA, TSH, AMADOU, CMP #### [facility] [address] [place] [address] Dr. Krystle Heaton Bilirubin [Mass/Vol] 0.8 mg/dL Normal 0.2-1.3 [facility] Comment on above: Performed By: #### T 7, LIPA, TSH, AMADOU, CMP #### [facility] [address] [place] [address] Dr. Krystle Heaton Calcium [Mass/Vol] 8.5 mg/dL Normal 8.4-10.2 [facility] Comment on above: Performed By: #### T 7, LIPA, TSH, AMADOU, CMP #### [facility] [address] [place] [address] Dr. Krystle Heaton Chloride [Moles/Vol] 101 mmol/L Normal 98-107 [facility] Comment on above: Performed By: #### T 7, LIPA, TSH, AMADOU, CMP #### [facility] [address] [place] [address] Dr. Krystle Heaton CO2 [Moles/Vol] 22.6 mmol/L Normal 22.0-30.0 [facility] Comment on above: Performed By: #### T 7, LIPA, TSH, AMADOU, CMP #### [facility] [address] [place] [address] Dr. Krystle Heaton Creatinine [Mass/Vol] 0.98 mg/dL Normal 0.66-1.25 [facility] Comment on above: Performed By: #### T 7, LIPA, TSH, AMADOU, CMP #### [facility] [address] [place] [address] Dr. Krystle Heaton EGFR-AF MALAYSIAN >60 Normal >=60 [facility] Comment on above: Performed By: #### T 7, LIPA, TSH, AMADOU, CMP #### [facility] [address] [place] [address] Dr. Krystle Heaton EGFR-NON AF MALAYSIAN >60 Normal >=60 [facility] Comment on above: Performed By: #### T 7, LIPA, TSH, AMADOU, CMP #### [facility] [address] [place] [address] Dr. Krystle Heaton Globulin (S) [Mass/Vol] 3.4 g/dL Normal [facility] Comment on above: Performed By: #### T 7, LIPA, TSH, AMADOU, CMP #### [facility] [address] [place] [address] Dr. Krystle Heaton Glucose [Mass/Vol] 103 mg/dL Normal 74-[address] [facility] Comment on above: Performed By: #### T 7, LIPA, TSH, AMADOU, CMP #### [facility] [address] [place] [address] Dr. Krystle Heaton Potassium [Moles/Vol] 3.9 mmol/L Normal 3.4-5.0 [facility] Comment on above: Performed By: #### T 7, LIPA, TSH, AMADOU, CMP #### [facility] [address] [place] [address] Dr. Krystle Heaton Protein [Mass/Vol] 6.9 g/dL Normal 6.1-8.2 [facility] Comment on above: Performed By: #### T 7, LIPA, TSH, AMADOU, CMP #### [facility] [address] [place] [address] Dr. Krystle Heaton Sodium [Moles/Vol] 137 mmol/L Normal 137-145 [facility] Comment on above: Performed By: #### T 7, LIPA, TSH, AMADOU, CMP #### [facility] [address] [place] [address] Dr. Krystle Heaton Urea nitrogen [Mass/Vol] 8.0 mg/dL Critically low 9.0-20.0 [facility] Comment on above: Performed By: #### T 7, LIPA, TSH, AMADOU, CMP #### [facility] [address] [place] [address] Dr. Krystle Heaton Urea nitrogen/Creatinine [Mass ratio] 8.2 mg/mg Normal [facility] Comment on above: Performed By: #### T 7, LIPA, TSH, AMADOU, CMP #### [facility] [address] [place] [address] Dr. Krystle Heaton TSHon 03-22-2021 TSH 2.059 uIU/mL Normal 0.470-4.680 [facility] Comment on above: Performed By: #### T 7, LIPA, TSH, AMADOU, CMP #### [facility] [address] [place] [address] Dr. Krystle Heaton TSH RANGE SEE BELOW Normal [facility] Comment on above: Result Comment: <0.3 4 UIU/ml HYPERTHYROID 0.34-5.60 UIU/ml EUTHYROID >5.60 UIU/ml HYPOTHYROID Performed By: #### T 7, LIPA, TSH, AMADOU, CMP #### [facility] [address] [place] [address] Dr. Krystle Heaton CBC AUTO DIFFon 03-17-2021 BASO # 0.0 103/ul Normal 0.0-0.1 [facility] Comment on above: Performed By: #### T 7, LIPA, TSH, AMADOU, CMP #### [facility] [address] [place] [address] Dr. Krystle Heaton Basophils/100 WBC (Bld) 0.3 % Normal 0.2-2.0 [facility] Comment on above: Performed By: #### T 7, LIPA, TSH, AMADOU, CMP #### [facility] [address] [place] [address] Dr. Krystle Heaton EO # 0.1 103/ul Normal 0.0-0.7 [facility] Comment on above: Performed By: #### T 7, LIPA, TSH, AMADOU, CMP #### [facility] [address] [place] [address] Dr. Krystle Heaton Eosinophils/100 WBC (Bld) 1.8 % Normal 0.9-7.0 [facility] Comment on above: Performed By: #### T 7, LIPA, TSH, AMADOU, CMP #### [facility] [address] [place] [address] Dr. Krystle Heaton Erythrocyte distribution width (RBC) [Ratio] 12.5 % Normal 11.0-15.0 [facility] Comment on above: Performed By: #### T 7, LIPA, TSH, AMADOU, CMP #### [facility] [address] [place] [address] Dr. Krystle Heaton Hematocrit (Bld) [Volume fraction] 40.9 % Critically low 42.0-54.0 [facility] Comment on above: Performed By: #### T 7, LIPA, TSH, AMADOU, CMP #### [facility] [address] [place] [address] Dr. Krystle Heaton Hemoglobin (Bld) [Mass/Vol] 14.1 g/dL Normal 14.0-18.0 [facility] Comment on above: Performed By: #### T 7, LIPA, TSH, AMADOU, CMP #### [facility] [address] [place] [address] Dr. Krystle Heaton IG # 0.01 10e3/ul Normal 0.00-0.03 [facility] Comment on above: Performed By: #### T 7, LIPA, TSH, AMADOU, CMP #### [facility] [address] [place] [address] Dr. Krystle Heaton IG % 0.3 % Normal 0.0-0.5 [facility] Comment on above: Performed By: #### T 7, LIPA, TSH, AMADOU, CMP #### [facility] [address] [place] [address] Dr. Krystle Heaton LYMPH # 1.3 103/ul Normal 1.2-3.8 [facility] Comment on above: Performed By: #### T 7, LIPA, TSH, AMADOU, CMP #### [facility] [address] [place] [address] Dr. Krystle Heaton Lymphocytes/100 WBC (Bld) 41.1 % Normal 20.5-60.0 [facility] Comment on above: Performed By: #### T 7, LIPA, TSH, AMADOU, CMP #### [facility] [address] [place] [address] Dr. Krystle Heaton MANUAL DIFF REQ NO Normal [facility] Comment on above: Performed By: #### T 7, LIPA, TSH, AMADOU, CMP #### [facility] [address] [place] [address] Dr. Krystle Heaton MCH (RBC) [Entitic mass] 36.3 pg Critically high 25.9-34.0 [facility] Comment on above: Performed By: #### T 7, LIPA, TSH, AMADOU, CMP #### [facility] [address] [place] [address] Dr. Krystle Heaton MCHC (RBC) [Mass/Vol] 34.5 g/dL Normal 29.9-35.2 [facility] Comment on above: Performed By: #### T 7, LIPA, TSH, AMADOU, CMP #### [facility] [address] [place] [address] Dr. Krystle Heaton MCV (RBC) [Entitic vol] 105.4 fL Critically high 80.0-94.0 [facility] Comment on above: Performed By: #### T 7, LIPA, TSH, AMADOU, CMP #### [facility] [address] [address] [address] Krystle Heaton MONO # 0.3 103/ul Normal 0.3-0.8 [facility] Comment on above: Performed By: #### T 7, LIPA, TSH, AMADOU, CMP #### [facility] [address] [place] [address] Dr. Krystle Heaton Monocytes/100 WBC (Bld) 8.0 % Normal 1.7-12.0 [facility] Comment on above: Performed By: #### T 7, LIPA, TSH, AMADOU, CMP #### [facility] [address] [place] [address] Dr. Krystle Heaton NEUT # 1.6 103/ul Normal 1.4-6.5 [facility] Comment on above: Performed By: #### T 7, LIPA, TSH, AMADOU, CMP #### [facility] [address] [place] [address] Dr. Krystle Heaton Neutrophils/100 WBC (Bld) 48.5 % Normal 43.0-75.0 [facility] Comment on above: Performed By: #### T 7, LIPA, TSH, AMADOU, CMP #### [facility] [address] [place] [address] Dr. Krystle Heaton Platelet mean volume (Bld) [Entitic vol] 10.6 fL Normal 9.5-13.5 [facility] Comment on above: Performed By: #### T 7, LIPA, TSH, AMADOU, CMP #### [facility] [address] [place] [address] Dr. Krystle Heaton PLT 134 103/ul Critically low 150-450 [facility] Comment on above: Performed By: #### T 7, LIPA, TSH, AMADOU, CMP #### [facility] [address] [place] [address] Dr. Krystle Heaton RBC 3.88 106/ul Critically low 4.70-6.10 [facility] Comment on above: Result Comment: Macr ocytosis 1+ Stomatocytes 1+ Performed By: #### T 7, LIPA, TSH, AMADOU, CMP #### [facility] [address] [address] [address] Krystle Heaton WBC 3.3 103/ul Critically low 4.0-11.0 [facility] Comment on above: Performed By: #### T 7, LIPA, TSH, AMADOU, CMP #### [facility] [address] [place] [address] Dr. Krystle Heaton FERRITINon 03-17-2021 Ferritin [Mass/Vol] ng/mL Critically high 17.9-464.0 [facility] Comment on above: Performed By: #### T 7, LIPA, TSH, AMADOU, CMP #### [facility] [address] [place] [address] Dr. Krystle Heaton FREE T4on 03-17-2021 Free T4 [Mass/Vol] 0.82 ng/dL Normal 0.78-2.[address] [facility] Comment on above: Performed By: #### T 7, LIPA, TSH, AMADOU, CMP #### [facility] [address] [place] [address] Dr. Krystle Heaton IRON AND TIBCon 03-17-2021 % SATURATION 100.8 % Normal [facility] Comment on above: Performed By: #### T 7, LIPA, TSH, AMADOU, CMP #### [facility] [address] [place] [address] Dr. Krystle Heaton Iron [Mass/Vol] 249.0 ug/dL Critically high 49.0-181.0 [facility] Comment on above: Performed By: #### T 7, LIPA, TSH, AMADOU, CMP #### [facility] [address] [place] [address] Dr. Krystle Heaton TIBC DIRECT 247.0 ug/dL Critically low 261.0-497.0 [facility] Comment on above: Performed By: #### T 7, LIPA, TSH, AMADOU, CMP #### [facility] [address] [place] [address] Dr. Krystle Heaton PROF 14(COMP METB)on 021 Albumin [Mass/Vol] 3.7 g/dL Normal 3.5-5.[address] [facility] Comment on above: Performed By: #### T 7, LIPA, TSH, AMADOU, CMP #### [facility] [address] [place] [address] Dr. Krystle Heaton Albumin/Globulin [Mass ratio] 1.1 {ratio} Normal [facility] Comment on above: Performed By: #### T 7, LIPA, TSH, AMADOU, CMP #### [facility] [address] [place] [address] Dr. Krystle Heaton ALP [Catalytic activity/Vol] 78 U/L Normal 38-126 [facility] Comment on above: Performed By: #### T 7, LIPA, TSH, AMADOU, CMP #### [facility] [address] [place] [address] Dr. Krystle Heaton ALT [Catalytic activity/Vol] 100 U/L Critically high 21-72 [facility] Comment on above: Performed By: #### T 7, LIPA, TSH, AMADOU, CMP #### [facility] [address] [place] [address] Dr. Krystle Heaton Anion gap [Moles/Vol] 14.4 mmol/L Normal [facility] Comment on above: Performed By: #### T 7, LIPA, TSH, AMADOU, CMP #### [facility] [address] [place] [address] Dr. Krystle Heaton AST [Catalytic activity/Vol] 158 U/L Critically high 17-59 [facility] Comment on above: Performed By: #### T 7, LIPA, TSH, AMADOU, CMP #### [facility] [address] [place] [address] Dr. Krystle Heaton Bilirubin [Mass/Vol] 0.6 mg/dL Normal 0.2-1.3 [facility] Comment on above: Performed By: #### T 7, LIPA, TSH, AMADOU, CMP #### [facility] [address] [place] [address] Dr. Krystle Heaton Calcium [Mass/Vol] 8.9 mg/dL Normal 8.4-10.[address] [facility] Comment on above: Performed By: #### T 7, LIPA, TSH, AMADOU, CMP #### [facility] [address] [place] [address] Dr. Krystle Heaton Chloride [Moles/Vol] 100 mmol/L Normal 98-107 [facility] Comment on above: Performed By: #### T 7, LIPA, TSH, AMADOU, CMP #### [facility] [address] [address] [address] Krystle Heaton CO2 [Moles/Vol] 27.3 mmol/L Normal 22.0-30.0 [facility] Comment on above: Performed By: #### T 7, LIPA, TSH, AMADOU, CMP #### [facility] [address] [place] [address] Dr. Krystle Heaton Creatinine [Mass/Vol] 1.08 mg/dL Normal 0.66-1.25 [facility] Comment on above: Performed By: #### T 7, LIPA, TSH, AMADOU, CMP #### [facility] [address] [place] [address] Dr. Krystle Heaton EGFR-AF MALAYSIAN >60 Normal >=60 [facility] Comment on above: Performed By: #### T 7, LIPA, TSH, AMADOU, CMP #### [facility] [address] [place] [address] Dr. Krystle Heaton EGFR-NON AF MALAYSIAN >60 Normal >=60 [facility] Comment on above: Performed By: #### T 7, LIPA, TSH, AMADOU, CMP #### [facility] [address] [place] [address] Dr. Krystle Heaton Globulin (S) [Mass/Vol] 3.5 g/dL Normal [facility] Comment on above: Performed By: #### T 7, LIPA, TSH, AMADOU, CMP #### [facility] [address] [place] [address] Dr. Krystle Heaton Glucose [Mass/Vol] 115 mg/dL Critically high 74-106 [facility] Comment on above: Performed By: #### T 7, LIPA, TSH, AMADOU, CMP #### [facility] [address] [place] [address] Dr. Krystle Heaton Potassium [Moles/Vol] 3.7 mmol/L Normal 3.4-5.0 [facility] Comment on above: Performed By: #### T 7, LIPA, TSH, AMADOU, CMP #### [facility] [address] [place] [address] Dr. Krystle Heaton Protein [Mass/Vol] 7.2 g/dL Normal 6.1-8.2 [facility] Comment on above: Performed By: #### T 7, LIPA, TSH, AMADOU, CMP #### [facility] [address] [place] [address] Dr. Krystle Heaton Sodium [Moles/Vol] 138 mmol/L Normal 137-145 [facility] Comment on above: Performed By: #### T 7, LIPA, TSH, AMADOU, CMP #### [facility] [address] [place] [address] Dr. Krystle Heaton Urea nitrogen [Mass/Vol] 10.0 mg/dL Normal 9.0-20.0 [facility] Comment on above: Performed By: #### T 7, LIPA, TSH, AMADOU, CMP #### [facility] [address] [place] [address] Dr. Krystle Heaton Urea nitrogen/Creatinine [Mass ratio] 9.3 mg/mg Normal [facility] Comment on above: Performed By: #### T 7, LIPA, TSH, AMADOU, CMP #### [facility] [address] [place] [address] Dr. Krystle Heaton TSHon 03-17-2021 TSH 1.904 uIU/mL Normal 0.470-4.680 [facility] Comment on above: Performed By: #### T 7, LIPA, TSH, AMADOU, CMP #### [facility] [address] [place] [address] Dr. Krystle Heaton TSH RANGE SEE BELOW Normal [facility] Comment on above: Result Comment: <0.3 4 UIU/ml HYPERTHYROID 0.34-5.60 UIU/ml EUTHYROID >5.60 UIU/ml HYPOTHYROID Performed By: #### T 7, LIPA, TSH, AMADOU, CMP #### [facility] [address] [place] [address] Dr. Krystle Heaton CBC AUTO DIFFon 03-08-2021 BASO # 0.0 103/ul Normal 0.0-0.1 [facility] Comment on above: Performed By: #### T 7, LIPA, TSH, AMADOU, CMP #### [facility] [address] [place] [address] Dr. Krystle Heaton Basophils/100 WBC (Bld) 0.8 % Normal 0.2-2.0 [facility] Comment on above: Performed By: #### T 7, LIPA, TSH, AMADOU, CMP #### [facility] [address] [place] [address] Dr. Krystle Heaton EO # 0.1 103/ul Normal 0.0-0.7 [facility] Comment on above: Performed By: #### T 7, LIPA, TSH, AMADOU, CMP #### [facility] [address] [place] [address] Dr. Krystle Heaton Eosinophils/100 WBC (Bld) 1.5 % Normal 0.9-7.0 [facility] Comment on above: Performed By: #### T 7, LIPA, TSH, AMADOU, CMP #### [facility] [address] [place] [address] Dr. Krystle Heaton Erythrocyte distribution width (RBC) [Ratio] 12.2 % Normal 11.0-15.0 [facility] Comment on above: Performed By: #### T 7, LIPA, TSH, AMADOU, CMP #### [facility] [address] [place] [address] Dr. Krystle Heaton Hematocrit (Bld) [Volume fraction] 45.5 % Normal 42.0-54.0 [facility] Comment on above: Performed By: #### T 7, LIPA, TSH, AMADOU, CMP #### [facility] [address] [place] [address] Dr. Krystle Heaton Hemoglobin (Bld) [Mass/Vol] 15.9 g/dL Normal 14.0-18.0 [facility] Comment on above: Performed By: #### T 7, LIPA, TSH, AMADOU, CMP #### [facility] [address] [place] [address] Dr. Krystle Heaton IG # 0.01 10e3/ul Normal 0.00-0.03 [facility] Comment on above: Performed By: #### T 7, LIPA, TSH, AMADOU, CMP #### [facility] [address] [place] [address] Dr. Krystle Heaton IG % 0.2 % Normal 0.0-0.5 [facility] Comment on above: Performed By: #### T 7, LIPA, TSH, AMADOU, CMP #### [facility] [address] [place] [address] Dr. Krystle Heaton LYMPH # 1.8 103/ul Normal 1.2-3.8 [facility] Comment on above: Performed By: #### T 7, LIPA, TSH, AMADOU, CMP #### [facility] [address] [place] [address] Dr. Krystle Heaton Lymphocytes/100 WBC (Bld) 37.8 % Normal 20.5-60.0 [facility] Comment on above: Performed By: #### T 7, LIPA, TSH, AMADOU, CMP #### [facility] [address] [place] [address] Dr. Krystle Heaton MANUAL DIFF REQ NO Normal [facility] Comment on above: Performed By: #### T 7, LIPA, TSH, AMADOU, CMP #### [facility] [address] [place] [address] Dr. Krystle Heaton MCH (RBC) [Entitic mass] 36.4 pg Critically high 25.9-34.0 [facility] Comment on above: Performed By: #### T 7, LIPA, TSH, AMADOU, CMP #### [facility] [address] [place] [address] Dr. Krystle Heaton MCHC (RBC) [Mass/Vol] 34.9 g/dL Normal 29.9-35.2 [facility] Comment on above: Performed By: #### T 7, LIPA, TSH, AMADOU, CMP #### [facility] [address] [place] [address] Dr. Krystle Heaton MCV (RBC) [Entitic vol] 104.1 fL Critically high 80.0-94.0 [facility] Comment on above: Performed By: #### T 7, LIPA, TSH, AMADOU, CMP #### [facility] [address] [place] [address] Dr. Krystle Heaton MONO # 0.4 103/ul Normal 0.3-0.8 [facility] Comment on above: Performed By: #### T 7, LIPA, TSH, AMADOU, CMP #### [facility] [address] [place] [address] Dr. Krystle Heaton Monocytes/100 WBC (Bld) 8.3 % Normal 1.7-12.0 [facility] Comment on above: Performed By: #### T 7, LIPA, TSH, AMADOU, CMP #### [facility] [address] [place] [address] Dr. Krystle Heaton NEUT # 2.4 103/ul Normal 1.4-6.5 [facility] Comment on above: Performed By: #### T 7, LIPA, TSH, AMADOU, CMP #### [facility] [address] [place] [address] Dr. Krystle Heaton Neutrophils/100 WBC (Bld) 51.4 % Normal 43.0-75.0 [facility] Comment on above: Performed By: #### T 7, LIPA, TSH, AMADOU, CMP #### [facility] [address] [place] [address] Dr. Krystle Heaton Platelet mean volume (Bld) [Entitic vol] 10.8 fL Normal 9.5-13.5 [facility] Comment on above: Performed By: #### T 7, LIPA, TSH, AMADOU, CMP #### [facility] [address] [place] [address] Dr. Krystle Heaton PLT 175 103/ul Normal 150-450 [facility] Comment on above: Performed By: #### T 7, LIPA, TSH, AMADOU, CMP #### [facility] [address] [address] [address] Krystle Heaton RBC 4.37 106/ul Critically low 4.70-6.10 [facility] Comment on above: Performed By: #### T 7, LIPA, TSH, AMADOU, CMP #### [facility] [address] [place] [address] Dr. Krystle Heaton WBC 4.7 103/ul Normal 4.0-11.0 [facility] Comment on above: Performed By: #### T 7, LIPA, TSH, AMADOU, CMP #### [facility] [address] [place] [address] Dr. Krystle Heaton FERRITINon 03-08-2021 Ferritin [Mass/Vol] ng/mL Critically high 17.9-464.0 [facility] Comment on above: Performed By: #### T 7, LIPA, TSH, AMADOU, CMP #### [facility] [address] [place] [address] Dr. Krystle Heaton FREE T4on 03-08-2021 Free T4 [Mass/Vol] 0.73 ng/dL Critically low 0.78-2.19 [facility] Comment on above: Performed By: #### T 7, LIPA, TSH, AMADOU, CMP #### [facility] [address] [place] [address] Dr. Krystle Heaton IRON AND TIBCon 03-08-2021 % SATURATION 102.2 % Normal [facility] Comment on above: Performed By: #### T 7, LIPA, TSH, AMADOU, CMP #### [facility] [address] [place] [address] Dr. Krystle Heaton Iron [Mass/Vol] 279.0 ug/dL Critically high 49.0-181.0 [facility] Comment on above: Performed By: #### T 7, LIPA, TSH, AMADOU, CMP #### [facility] [address] [place] [address] Dr. Krystle Heaton TIBC DIRECT 273.0 ug/dL Normal 261.0-497.0 [facility] Comment on above: Performed By: #### T 7, LIPA, TSH, AMADOU, CMP #### [facility] [address] [place] [address] Dr. Krystle Heaton PROF 14(COMP METB)on 021 Albumin [Mass/Vol] 3.6 g/dL Normal 3.5-5.[address] [facility] Comment on above: Performed By: #### T 7, LIPA, TSH, AMADOU, CMP #### [facility] [address] [place] [address] Dr. Krystle Heaton Albumin/Globulin [Mass ratio] 1.0 {ratio} Normal [facility] Comment on above: Performed By: #### T 7, LIPA, TSH, AMADOU, CMP #### [facility] [address] [place] [address] Dr. Krystle Heaton ALP [Catalytic activity/Vol] 68 U/L Normal 38-126 [facility] Comment on above: Performed By: #### T 7, LIPA, TSH, AMADUO, CMP #### [facility] [address] [place] [address] Dr. Krystle Heaton ALT [Catalytic activity/Vol] 58 U/L Normal 21-72 [facility] Comment on above: Performed By: #### T 7, LIPA, TSH, AMADOU, CMP #### [facility] [address] [place] [address] Dr. Krystle Heaton Anion gap [Moles/Vol] 15.5 mmol/L Normal [facility] Comment on above: Performed By: #### T 7, LIPA, TSH, AMADOU, CMP #### [facility] [address] [place] [address] Dr. Krystle Heaton AST [Catalytic activity/Vol] 56 U/L Normal 17-59 [facility] Comment on above: Performed By: #### T 7, LIPA, TSH, AMADOU, CMP #### [facility] [address] [place] [address] Dr. Krystle Heaton Bilirubin [Mass/Vol] 0.7 mg/dL Normal 0.2-1.3 [facility] Comment on above: Performed By: #### T 7, LIPA, TSH, AMADOU, CMP #### [facility] [address] [place] [address] Dr. Krystle Heaton Calcium [Mass/Vol] 8.9 mg/dL Normal 8.4-10.2 [facility] Comment on above: Performed By: #### T 7, LIPA, TSH, AMADOU, CMP #### [facility] [address] [place] [address] Dr. Krystle Heaton Chloride [Moles/Vol] 100 mmol/L Normal 98-107 [facility] Comment on above: Performed By: #### T 7, LIPA, TSH, AMADOU, CMP #### [facility] [address] [place] [address] Dr. Krystle Heaton CO2 [Moles/Vol] 26.6 mmol/L Normal 22.0-30.0 [facility] Comment on above: Performed By: #### T 7, LIPA, TSH, AMADOU, CMP #### [facility] [address] [place] [address] Dr. Krystle Heaton Creatinine [Mass/Vol] 1.12 mg/dL Normal 0.66-1.25 [facility] Comment on above: Performed By: #### T 7, LIPA, TSH, AMADOU, CMP #### [facility] [address] [place] [address] Dr. Krystle Heaton EGFR-AF MALAYSIAN >60 Normal >=60 [facility] Comment on above: Performed By: #### T 7, LIPA, TSH, AMADOU, CMP #### [facility] [address] [place] [address] Dr. Krystle Heaton EGFR-NON AF MALAYSIAN >60 Normal >=60 [facility] Comment on above: Performed By: #### T 7, LIPA, TSH, AMADOU, CMP #### [facility] [address] [place] [address] Dr. Krystle Heaton Globulin (S) [Mass/Vol] 3.7 g/dL Normal [facility] Comment on above: Performed By: #### T 7, LIPA, TSH, AMADOU, CMP #### [facility] [address] [place] [address] Dr. Krystle Heaton Glucose [Mass/Vol] 101 mg/dL Normal 74-106 [facility] Comment on above: Performed By: #### T 7, LIPA, TSH, AMADOU, CMP #### [facility] [address] [place] [address] Dr. Krystle Heaton Potassium [Moles/Vol] 4.1 mmol/L Normal 3.4-5.0 [facility] Comment on above: Performed By: #### T 7, LIPA, TSH, AMADOU, CMP #### [facility] [address] [place] [address] Dr. Krystle Heaton Protein [Mass/Vol] 7.3 g/dL Normal 6.1-8.2 [facility] Comment on above: Performed By: #### T 7, LIPA, TSH, AMADOU, CMP #### [facility] [address] [place] [address] Dr. Krystle Heaton Sodium [Moles/Vol] 138 mmol/L Normal 137-145 [facility] Comment on above: Performed By: #### T 7, LIPA, TSH, AMADOU, CMP #### [facility] [address] [place] [address] Dr. Krystle Heaton Urea nitrogen [Mass/Vol] 17.0 mg/dL Normal 9.0-20.0 [facility] Comment on above: Performed By: #### T 7, LIPA, TSH, AMADOU, CMP #### [facility] [address] [place] [address] Dr. Krystle Heaton Urea nitrogen/Creatinine [Mass ratio] 15.2 mg/mg Normal [facility] Comment on above: Performed By: #### T 7, LIPA, TSH, AMADOU, CMP #### [facility] [address] [place] [address] Dr. Krystle Heaton TSHon 03-08-2021 TSH 1.781 uIU/mL Normal 0.470-4.680 [facility] Comment on above: Performed By: #### T 7, LIPA, TSH, AMADOU, CMP #### [facility] [address] [place] [address] Dr. Krystle Heaton TSH RANGE SEE BELOW Normal [facility] Comment on above: Result Comment: <0.3 4 UIU/ml HYPERTHYROID 0.34-5.60 UIU/ml EUTHYROID >5.60 UIU/ml HYPOTHYROID Performed By: #### T 7, LIPA, TSH, AMADOU, CMP #### [facility] [address] [place] [address] Dr. Krystle Heaton FERRITINon 02-03-2021 Ferritin [Mass/Vol] ng/mL Critically high 17.9-464.0 [facility] Comment on above: Performed By: #### C BC #### [facility] [address] [place] [address] Billy Devlin Covid-19 PCR (CVDTB)on SARS-CoV-2 (COVID-19) RNA JIMBO+probe Ql (Unsp spec) Not detected Normal NOT DETECTED [facility] Comment on above: Result Comment: This test is not yet approved or cleared by the [place] FDA. When there are no FDA-approved or cleared tests available, and other criteria are met, FDA can make tests available under an emergency access mechanism called an Emergency Use Authorization (EUA). The EUA for this test is supported by the [place] of Health and Human Service's (HHS's) declaration [...] T 7, LIPA, TSH, AMADOU, CMP #### [facility] [address] [place] [address] Dr. Krystle Heaton CBC AUTO DIFFon 01-06-2021 BASO # 0.0 103/ul Normal 0.0-0.1 [facility] Comment on above: Performed By: #### T 7, LIPA, TSH, AMADOU, CMP #### [facility] [address] [place] [address] Dr. Krystle Heaton Basophils/100 WBC (Bld) 1.0 % Normal 0.2-2.0 [facility] Comment on above: Performed By: #### T 7, LIPA, TSH, AMADOU, CMP #### [facility] [address] [place] [address] Dr. Krystle Heaton EO # 0.1 103/ul Normal 0.0-0.7 [facility] Comment on above: Performed By: #### T 7, LIPA, TSH, AMADOU, CMP #### [facility] [address] [place] [address] Dr. Krystle Heaton Eosinophils/100 WBC (Bld) 2.5 % Normal 0.9-7.0 [facility] Comment on above: Performed By: #### T 7, LIPA, TSH, AMADOU, CMP #### [facility] [address] [place] [address] Dr. Krystle Heaton Erythrocyte distribution width (RBC) [Ratio] 13.7 % Normal 11.0-15.0 [facility] Comment on above: Performed By: #### T 7, LIPA, TSH, AMADOU, CMP #### [facility] [address] [place] [address] Dr. Krystle Heaton Hematocrit (Bld) [Volume fraction] 44.1 % Normal 42.0-54.0 [facility] Comment on above: Performed By: #### T 7, LIPA, TSH, AMADOU, CMP #### [facility] [address] [place] [address] Dr. Krystle Heaton Hemoglobin (Bld) [Mass/Vol] 15.0 g/dL Normal 14.0-18.0 [facility] Comment on above: Performed By: #### T 7, LIPA, TSH, AMADOU, CMP #### [facility] [address] [place] [address] Dr. Krystle Heaton IG # 0.02 10e3/ul Normal 0.00-0.03 [facility] Comment on above: Performed By: #### T 7, LIPA, TSH, AMADOU, CMP #### [facility] [address] [place] [address] Dr. Krystle Heaton IG % 0.5 % Normal 0.0-0.5 [facility] Comment on above: Performed By: #### T 7, LIPA, TSH, AMADOU, CMP #### [facility] [address] [place] [address] Dr. Krystle Heaton LYMPH # 1.6 103/ul Normal 1.2-3.8 [facility] Comment on above: Performed By: #### T 7, LIPA, TSH, AMADOU, CMP #### [facility] [address] [place] [address] Dr. Krystle Heaton Lymphocytes/100 WBC (Bld) 40.7 % Normal 20.5-60.0 [facility] Comment on above: Performed By: #### T 7, LIPA, TSH, AMADOU, CMP #### [facility] [address] [place] [address] Dr. Krystle Heaton MANUAL DIFF REQ NO Normal [facility] Comment on above: Performed By: #### T 7, LIPA, TSH, AMADOU, CMP #### [facility] [address] [place] [address] Dr. Krystle Heaton MCH (RBC) [Entitic mass] 36.2 pg Critically high 25.9-34.0 [facility] Comment on above: Performed By: #### T 7, LIPA, TSH, AMADOU, CMP #### [facility] [address] [place] [address] Dr. Krystle Heaton MCHC (RBC) [Mass/Vol] 34.0 g/dL Normal 29.9-35.2 [facility] Comment on above: Performed By: #### T 7, LIPA, TSH, AMADOU, CMP #### [facility] [address] [place] [address] Dr. Krystle Heaton MCV (RBC) [Entitic vol] 106.5 fL Critically high 80.0-94.0 [facility] Comment on above: Performed By: #### T 7, LIPA, TSH, AMADOU, CMP #### [facility] [address] [place] [address] Dr. Krystle Heaton MONO # 0.3 103/ul Normal 0.3-0.8 [facility] Comment on above: Performed By: #### T 7, LIPA, TSH, AMADOU, CMP #### [facility] [address] [place] [address] Dr. Krystle Heaton Monocytes/100 WBC (Bld) 8.1 % Normal 1.7-12.0 [facility] Comment on above: Performed By: #### T 7, LIPA, TSH, AMADOU, CMP #### [facility] [address] [place] [address] Dr. Krystle Heaton NEUT # 1.9 103/ul Normal 1.4-6.5 [facility] Comment on above: Performed By: #### T 7, LIPA, TSH, AMADOU, CMP #### [facility] [address] [place] [address] Dr. Krystle Heaton Neutrophils/100 WBC (Bld) 47.2 % Normal 43.0-75.0 [facility] Comment on above: Performed By: #### T 7, LIPA, TSH, AMADOU, CMP #### [facility] [address] [place] [address] Dr. Krystle Heaton Platelet mean volume (Bld) [Entitic vol] 11.6 fL Normal 9.5-13.5 [facility] Comment on above: Performed By: #### T 7, LIPA, TSH, AMADOU, CMP #### [facility] [address] [place] [address] Dr. Krystle Heaton PLT 184 103/ul Normal 150-450 [facility] Comment on above: Performed By: #### T 7, LIPA, TSH, AMADOU, CMP #### [facility] [address] [place] [address] Dr. Krystle Heaton RBC 4.14 106/ul Critically low 4.70-6.10 [facility] Comment on above: Performed By: #### T 7, LIPA, TSH, AMADOU, CMP #### [facility] [address] [place] [address] Dr. Krystle Heaton WBC 4.0 103/ul Normal 4.0-11.0 [facility] Comment on above: Performed By: #### T 7, LIPA, TSH, AMADOU, CMP #### [facility] [address] [place] [address] Dr. Krystle Heaton FERRITINon 01-06-2021 Ferritin [Mass/Vol] ng/mL Critically high 17.9-464.0 [facility] Comment on above: Performed By: #### H BSANS #### [facility] [address] [place] [address] Billy Devlin CBC AUTO DIFFon 12-09-2020 BASO # 0.0 103/ul Normal 0.0-0.1 [facility] Comment on above: Performed By: #### T 7, LIPA, TSH, AMADOU, CMP #### [facility] [address] [place] [address] Dr. Krystle Heaton Basophils/100 WBC (Bld) 0.6 % Normal 0.2-2.0 [facility] Comment on above: Performed By: #### T 7, LIPA, TSH, AMADOU, CMP #### [facility] [address] [place] [address] Dr. Krystle Heaton EO # 0.1 103/ul Normal 0.0-0.7 [facility] Comment on above: Performed By: #### T 7, LIPA, TSH, AMADOU, CMP #### [facility] [address] [place] [address] Dr. Krystle Heaton Eosinophils/100 WBC (Bld) 2.6 % Normal 0.9-7.0 [facility] Comment on above: Performed By: #### T 7, LIPA, TSH, AMADOU, CMP #### [facility] [address] [place] [address] Dr. Krystle Heaton Erythrocyte distribution width (RBC) [Ratio] 13.0 % Normal 11.0-15.0 [facility] Comment on above: Performed By: #### T 7, LIPA, TSH, AMADOU, CMP #### [facility] [address] [place] [address] Dr. Krystle Heaton Hematocrit (Bld) [Volume fraction] 46.2 % Normal 42.0-54.0 [facility] Comment on above: Performed By: #### T 7, LIPA, TSH, AMADOU, CMP #### [facility] [address] [place] [address] Dr. Krystle Heaton Hemoglobin (Bld) [Mass/Vol] 16.0 g/dL Normal 14.0-18.0 [facility] Comment on above: Performed By: #### T 7, LIPA, TSH, AMADOU, CMP #### [facility] [address] [place] [address] Dr. Krystle Heaton IG # 0.01 10e3/ul Normal 0.00-0.03 [facility] Comment on above: Performed By: #### T 7, LIPA, TSH, AMADOU, CMP #### [facility] [address] [place] [address] Dr. Krystle Heaton IG % 0.2 % Normal 0.0-0.5 [facility] Comment on above: Performed By: #### T 7, LIPA, TSH, AMADOU, CMP #### [facility] [address] [place] [address] Dr. Krystle Heaton LYMPH # 1.3 103/ul Normal 1.2-3.8 [facility] Comment on above: Performed By: #### T 7, LIPA, TSH, AMADOU, CMP #### [facility] [address] [place] [address] Dr. Krystle Heaton Lymphocytes/100 WBC (Bld) 27.8 % Normal 20.5-60.0 [facility] Comment on above: Performed By: #### T 7, LIPA, TSH, AMADOU, CMP #### [facility] [address] [place] [address] Dr. Krystle Heaton MANUAL DIFF REQ NO Normal [facility] Comment on above: Performed By: #### T 7, LIPA, TSH, AMADOU, CMP #### [facility] [address] [place] [address] Dr. Krystle Heaton MCH (RBC) [Entitic mass] 34.9 pg Critically high 25.9-34.0 [facility] Comment on above: Performed By: #### T 7, LIPA, TSH, AMADOU, CMP #### [facility] [address] [place] [address] Dr. Krystle Heaton MCHC (RBC) [Mass/Vol] 34.6 g/dL Normal 29.9-35.2 [facility] Comment on above: Performed By: #### T 7, LIPA, TSH, AMADOU, CMP #### [facility] [address] [place] [address] Dr. Krystle Heaton MCV (RBC) [Entitic vol] 100.9 fL Critically high 80.0-94.0 [facility] Comment on above: Performed By: #### T 7, LIPA, TSH, AMADOU, CMP #### [facility] [address] [place] [address] Dr. Krystle Heaton MONO # 0.3 103/ul Normal 0.3-0.8 [facility] Comment on above: Performed By: #### T 7, LIPA, TSH, AMADOU, CMP #### [facility] [address] [place] [address] Dr. Krystle Heaton Monocytes/100 WBC (Bld) 6.6 % Normal 1.7-12.0 [facility] Comment on above: Performed By: #### T 7, LIPA, TSH, AMADOU, CMP #### [facility] [address] [place] [address] Dr. Krystle Heaton NEUT # 2.9 103/ul Normal 1.4-6.5 [facility] Comment on above: Performed By: #### T 7, LIPA, TSH, AMADOU, CMP #### [facility] [address] [place] [address] Dr. Krystle Heaton Neutrophils/100 WBC (Bld) 62.2 % Normal 43.0-75.0 [facility] Comment on above: Performed By: #### T 7, LIPA, TSH, AMADOU, CMP #### [facility] [address] [place] [address] Dr. Krystle Heaton Platelet mean volume (Bld) [Entitic vol] 11.0 fL Normal 9.5-13.5 [facility] Comment on above: Performed By: #### T 7, LIPA, TSH, AMADOU, CMP #### [facility] [address] [place] [address] Dr. Krystle Heaton PLT 171 103/ul Normal 150-450 [facility] Comment on above: Performed By: #### T 7, LIPA, TSH, AMADOU, CMP #### [facility] [address] [place] [address] Dr. Krystle Heaton RBC 4.58 106/ul Critically low 4.70-6.10 [facility] Comment on above: Performed By: #### T 7, LIPA, TSH, AMADOU, CMP #### [facility] [address] [place] [address] Dr. Krystle Heaton WBC 4.7 103/ul Normal 4.0-11.0 [facility] Comment on above: Performed By: #### T 7, LIPA, TSH, AMADOU, CMP #### [facility] [address] [place] [address] Dr. Krystle Heaton PROF 14(COMP METB)on 021 Albumin [Mass/Vol] 3.9 g/dL Normal 3.5-5.[address] [facility] Comment on above: Performed By: #### T 7, LIPA, TSH, AMADOU, CMP #### [facility] [address] [place] [address] Dr. Krystle Heaton Albumin/Globulin [Mass ratio] 1.1 {ratio} Normal [facility] Comment on above: Performed By: #### T 7, LIPA, TSH, AMADOU, CMP #### [facility] [address] [place] [address] Dr. Krystle Heaton ALP [Catalytic activity/Vol] 86 U/L Normal 38-126 [facility] Comment on above: Performed By: #### T 7, LIPA, TSH, AMADOU, CMP #### [facility] [address] [place] [address] Dr. Krystle Heaton ALT [Catalytic activity/Vol] 87 U/L Critically high 21-72 [facility] Comment on above: Performed By: #### T 7, LIPA, TSH, AMADOU, CMP #### [facility] [address] [place] [address] Dr. Krystle Heaton Anion gap [Moles/Vol] 15.7 mmol/L Normal [facility] Comment on above: Performed By: #### T 7, LIPA, TSH, AMADOU, CMP #### [facility] [address] [place] [address] Dr. Krystle Heaton AST [Catalytic activity/Vol] 70 U/L Critically high 17-59 [facility] Comment on above: Performed By: #### T 7, LIPA, TSH, AMADOU, CMP #### [facility] [address] [place] [address] Dr. Krystle Heaton Bilirubin [Mass/Vol] 1.4 mg/dL Critically high 0.2-1.3 [facility] Comment on above: Performed By: #### T 7, LIPA, TSH, AMADOU, CMP #### [facility] [address] [place] [address] Dr. Krystle Heaton Calcium [Mass/Vol] 9.3 mg/dL Normal 8.4-10.2 [facility] Comment on above: Performed By: #### T 7, LIPA, TSH, AMADOU, CMP #### [facility] [address] [place] [address] Dr. Krystle Heaton Chloride [Moles/Vol] 102 mmol/L Normal 98-107 [facility] Comment on above: Performed By: #### T 7, LIPA, TSH, AMADOU, CMP #### [facility] [address] [place] [address] Dr. Krystle Heaton CO2 [Moles/Vol] 26.5 mmol/L Normal 22.0-30.0 [facility] Comment on above: Performed By: #### T 7, LIPA, TSH, AMADOU, CMP #### [facility] [address] [address] [address] Krystle Heaton Creatinine [Mass/Vol] 1.27 mg/dL Critically high 0.66-1.25 [facility] Comment on above: Performed By: #### T 7, LIPA, TSH, AMADOU, CMP #### [facility] [address] [address] [address] Krystle Heaton EGFR-AF MALAYSIAN >60 Normal >=60 [facility] Comment on above: Performed By: #### T 7, LIPA, TSH, AMADOU, CMP #### [facility] [address] [address] [address] Krystle Heaton EGFR-NON AF MALAYSIAN =60 Normal >=60 [facility] Comment on above: Performed By: #### T 7, LIPA, TSH, AMADOU, CMP #### [facility] [address] [place] [address] Dr. Krystle Heaton Globulin (S) [Mass/Vol] 3.5 g/dL Normal [facility] Comment on above: Performed By: #### T 7, LIPA, TSH, AMADOU, CMP #### [facility] [address] [place] [address] Dr. Krystle Heaton Glucose [Mass/Vol] 120 mg/dL Critically high 74-106 [facility] Comment on above: Performed By: #### T 7, LIPA, TSH, AMADOU, CMP #### [facility] [address] [place] [address] Dr. Krystle Heaton Potassium [Moles/Vol] 4.2 mmol/L Normal 3.4-5.0 [facility] Comment on above: Performed By: #### T 7, LIPA, TSH, AMADOU, CMP #### [facility] [address] [address] [address] Krystle Heaton Protein [Mass/Vol] 7.4 g/dL Normal 6.1-8.[address] [facility] Comment on above: Performed By: #### T 7, LIPA, TSH, AMADOU, CMP #### [facility] [address] [place] [address] Dr. Krystle Heaton Sodium [Moles/Vol] 140 mmol/L Normal 137-145 [facility] Comment on above: Performed By: #### T 7, LIPA, TSH, AMADOU, CMP #### [facility] [address] [place] [address] Dr. Krystle Heaton Urea nitrogen [Mass/Vol] 12.0 mg/dL Normal 9.0-20.0 [facility] Comment on above: Performed By: #### T 7, LIPA, TSH, AMADOU, CMP #### [facility] [address] [place] [address] Dr. Krystle Heaton Urea nitrogen/Creatinine [Mass ratio] 9.4 mg/mg Normal [facility] Comment on above: Performed By: #### T 7, LA TSH, AMADOU, CMP #### [facility] [address] [place] [address] Dr. Krystle Heaton PROTIMEon 12-09-2020 INR Coag (PPP) [Relative time] 0.96 {INR} Normal [facility] Comment on above: Performed By: #### H BSANS #### [facility] [address] [place] [address] Billy Devlin INR GUIDELINES SEE BELOW Normal [facility] Comment on above: Result Comment: MOUNA RED INR: 2.0 - 3.0 CONDITIONS NOT LISTED BELOW 2.5 - 3.5 FOR PROSTHETIC HEART VALVE REPLACEMENT 2.5 - 3.5 RECURRENT THROMBOSIS Performed By: #### H BSANS #### [facility] [address] [place] [address] Billy Devlin PT Coag (PPP) [Time] 10.5 s Normal 9.0-11.6 [facility] Comment on above: Performed By: #### H BSANS #### [facility] [address] [place] [address] Billy Devlin US SINGLE QUAD RT UPPERon [...] KRISTEN GODINEZ Date: 2020-12-09 10:23 Normal [facility] Encounters Encounter Date Encounter Type Care Provider Facility Start: 05-26-2024 End: 05-26-2024 ambulatory RASHAWN VELÁZQUEZ Not Available Start: 05-24-2024 End: 05-24-2024 ambulatory DARIEN WARE Not Available Start: 04-03-2022 End: 04-03-2022 ambulatory Magaly Sewell Facility:[facility] Start: 11-26-2021 End: 11-27-[address] GENEVIEVE ARREOLA Facility:[facility] Start: 11-15-2021 End: 11-15-[address] GENEVIEVE ARREOLA Facility:[facility] Start: 10-08-2021 End: 10-09-[address] AMADOU BROWN Facility:[facility] Start: 09-10-2021 End: 09-11-[address] AMADOU BROWN Facility:[facility] Start: 08-15-2021 End: 08-16-[address] AMADOU BROWN Facility:[facility] Start: 08-13-2021 Encounter for preprocedural laboratory examination DR DOCTOR PALUMBO [facility] Start: 08-10-2021 AUDIT No PCP None [...] ne w 45 minutes No PCP None [facility] [place] [address] [facility] Work Phone: Start: 04-06-2021 [...] No PCP None [facility]-Gastro enterology[facility] [address] [facility] Work Phone: Procedures Date Procedure Procedure Detail Performing Clinician Biopsy of liver No PCP None Repair of musculoten dinous cuff of shoulder No PCP None Payers Date Payer Category Payer Unknown [id number] 1970 Unknown [id number] 2.16.84 0.1.774646.3.579.2.593 1970 Unknown [id number] 2.16.84 0.1.352083.3.579.2.593 1969 Unknown [id number] 2.16.84 0.1.392999.3.579.2.593 1969 Unknown [id number] 2.16.84 0.1.251733.3.579.2.593 1969 Unknown [id number] 2.16.84 0.1.033186.3.579.2.593 1969 Unknown [id number] 2.16.84 0.1.076306.3.579.2.593 1969 Unknown [id number] 2.16.84 0.1.662946.3.579.2.593 1969 Unknown [id number] 2.16.84 0.1.493926.3.579.2.593 1969 Unknown [id number] 2.16.84 0.1.918212.3.579.2.593 1969 Unknown [id number] 2.16.84 0.1.129974.3.579.2.593 1969 Unknown [id number] 2.16.84 0.1.015152.3.579.2.593 1969 Unknown [id number] 2.16.84 0.1.283914.3.579.2.593 1969 Unknown [id number] 2.16.84 0.1.416877.3.579.2.593 1969 Unknown [id number] 2.16.84 0.1.139073.3.579.2.593 1969 Unknown [id number] 2.16.84 0.1.982750.3.579.2.593 1969 Unknown [id number] 2.16.84 0.1.430086.3.579.2.593 1969 Unknown [id number] 2.16.84 0.1.186599.3.579.2.593 1969 Unknown [id number] 2.16.84 0.1.263896.3.579.2.593 1969 Unknown [id number] 2.16.84 0.1.377187.3.579.2.593 1969 Unknown [id number] 2.16.84 0.1.621315.3.579.2.593 1969 Unknown [id number] 2.16.84 0.1.120492.3.579.2.593 1969 Unknown [id number] 2.16.84 0.1.868038.3.579.2.593 1969 Unknown [id number] 2.16.84 0.1.481350.3.579.2.1259 1969 Unknown [id number] 2.16.84 0.1.253941.3.579.2.1259 1959 Self-pay [id number] 1960 Self-pay 1960 Unknown [id number] Unknown ANTHEM Unknown [id number] 2.16.84 0.1.139627.3.579.2.593 Unknown [id number] 2.16.84 0.1.329751.3.579.2.593 Unknown [id number] 2.16.8 40.1.391957.3.579.2.531 Social History Date Type Detail Facility Former smoker Former smoker -[facility] [address] [facility] Work Phone: Start: 1970 Sex Assigned At Male F [facility] Clinical Note 07-31-2021 Note Date & [...] report Procedure performed by: Sandy Roland MD Clinical Material Handler(s): Dee Lopes Md Estimated Blood Loss (mL): [...] Last Updated: 02-Aug-2021 13:04 by Sandy Roland) [facility] Clinical Note 05-08-2021 Note Date & Type Note Facility 05-08-2021 Note Pre-procedure Verifi cation and Time Out: Pre-Procedure Verification and Time Out: Procedure Locationprocedure area HUDDLE - Pre-procedure Verificationcompleted TIME OUT - Final Verificationcompleted DEBRIEFcompleted General Information: Anesthesia Critical Care: Non-Anesthesia Date/Time of Procedure: 08-May-2021 11:57 Post-Procedure Diagnosis: same Procedure Name: CT Liver Biopsy Findings: grossly normal anatomy Procedure performed by: me Clinical Material Handler(s): none Estimated Blood Loss (mL): none Specimen: [...] Last Updated: 08-May-2021 11:58 by Uri Bacon) [facility] Evaluation note Note Date & Type Note Facility Evaluation note No assessment information [facility] Work Phone: History of Present [...] no lower extremity edema.Symptom History:Modifying Factors:Associated Symptoms: [facility] [address] [facility] Work Phone: Chief Complaint [...] section and content) DATE CREATED AUTHOR 04/14/2021 [employer] DATE CREATED AUTHOR AUTHOR'S ORGANIZ ATION 05/15/2021 [facility] DATE CREATED AUTHOR AUTHOR'S ORGANIZ ATION 11/29/2021 [facility] DATE CREATED AUTHOR AUTHOR'S ORGANIZ ATION 04/15/2022 [facility] DATE CREATED AUTHOR AUTHOR'S ORGANIZ ATION 01/28/2023 [facility] DATE CREATED AUTHOR AUTHOR'S ORGANIZ ATION 05/24/2023 [facility] DATE CREATED AUTHOR AUTHOR'S ORGANIZ ATION 05/28/2024 [facility] EPIC Goals (unrecognized section and [...] BE BASED ON THE PRIMARY CLINICAL RECORDS. [facility] provides no warranty or guarantee of the accuracy or completeness of information in this document.
[2024-07-06] MEDS: LACTATED RINGER'S SOLUTION 1,000 ML 50 ML IV (09:17)
[2024-07-06] MEDS: OXYMETAZOLINE HCL 0.05% NASAL SPRAY 30 SPRAY NS (10:43)
== END 2024-07-06 11:37 | disposition home or self-care (01) ==
PROVIDERS: PCP Family Medicine; Visit Provider Otolaryngology
PROC: (CPT 00126; principal; 2024-07-06 10:30)
PROC: (CPT 00126; 2024-07-06 10:30)
DX: H69.91 Unspecified Eustachian tube disorder, right ear (principal); H65.91 Unspecified nonsuppurative otitis media, right ear; Z87.891 Personal history of nicotine dependence; H91.90 Unspecified hearing loss, unspecified ear; E78.5 Hyperlipidemia, unspecified; I10 Essential (primary) hypertension; E03.9 Hypothyroidism, unspecified; E83.110 Hereditary hemochromatosis; F10.11 Alcohol abuse, in remission
CPT/HCPCS: 00126; 00160; 31231; 69436; 36415; J1100; J2250; J2371; J2405; J2704

== ENCOUNTER 2024-08-16 11:25 | Outpatient (OUT) | payer OTHER, SELFPAY ==
--- OUTSIDE RECORDS SUMMARY | 2024-08-16 11:37 | XMS_ITS | CCD ---
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 Name Role Phone None, No PCP Unavailable [...] DR VALLEJO Primary Care Unavailable STEPHANIE, DR AMADUO Chang Consulting Unavailable STEPHANIE, DR AMADOU Chang [...] Attending Unavaila ble Magaly Sewell Attending Unavail able Matheus Garza Referring UnavailGenevieve Hernandez Primary Care Unavailable Magaly Sewell Admitting Unavail DARIEN Miranda Attending Unavailable RASHAWN VELÁZQUEZ Attending Unavailable RASHAWN VELÁZQUEZ Attending Unavailable Allergies Allergy Classification Reported Allergen(s) Allergy Type Date of Onset Reaction(s) Facility (2 sources) Morphine Drug Allergy 2 Swelling of the Eye [facility] Repository (1 source) Morphine Drug Allergy 2 [...] office Testingon 01-29-20 23 In office Testing [id number] Normal [facility] AMYLASEon 11-26-2021 Amylase [Catalytic activity/Vol] 53 U/L Normal 31-110 [facility] Comment on above: Performed By: #### T 7, LIPA, TSH, AMADOU, CMP #### [facility] [address] [address] [address] Krystle Heaton CBC AUTO DIFFon 11-26-2021 BASO # 0.0 103/ul Normal 0.0-0.1 [facility] Comment on above: Performed By: #### F ERR #### [facility] [address] [address] [address] Krystle Heaton Basophils/100 WBC (Bld) 0.6 % Normal 0.2-2.0 [facility] Comment on above: Performed By: #### F ERR #### [facility] [address] [address] [address] Krystle Heaton EO # 0.1 103/ul Normal 0.0-0.7 [facility] Comment on above: Performed By: #### F ERR #### [facility] [address] [address] [address] Krystle Heaton Eosinophils/100 WBC (Bld) 2.7 % Normal 0.9-7.0 [facility] Comment on above: Performed By: #### F ERR #### [facility] [address] [place] [address] Dr. Krystle Heaton Erythrocyte distribution width (RBC) [Ratio] 16.0 % Critically high 11.0-15.0 [facility] Comment on above: Performed By: #### F ERR #### [facility] [address] [place] [address] Dr. Krystle Heaton Hematocrit (Bld) [Volume fraction] 42.8 % Normal 42.0-54.0 [facility] Comment on above: Performed By: #### F ERR #### [facility] [address] [place] [address] Dr. Krystle Heaton Hemoglobin (Bld) [Mass/Vol] 13.0 g/dL Critically low 14.0-18.0 [facility] Comment on above: Performed By: #### F ERR #### [facility] [address] [place] [address] Dr. Krystle Heaton IG # 0.02 10e3/ul Normal 0.00-0.03 [facility] Comment on above: Performed By: #### F ERR #### [facility] [address] [place] [address] Dr. Krystle Heaton IG % 0.4 % Normal 0.0-0.5 [facility] Comment on above: Performed By: #### F ERR #### [facility] [address] [address] [address] Krystle Heaton LYMPH # 0.9 103/ul Critically low 1.2-3.8 [facility] Comment on above: Performed By: #### F ERR #### [facility] [address] [address] [address] Krystle Heaton Lymphocytes/100 WBC (Bld) 19.1 % Critically low 20.5-60.0 [facility] Comment on above: Performed By: #### F ERR #### [facility] [address] [place] [address] Dr. Krystle Heaton MANUAL DIFF REQ NO Normal [facility] Comment on above: Performed By: #### F ERR #### [facility] [address] [place] [address] Dr. Krystle Heaton MCH (RBC) [Entitic mass] 27.7 pg Normal 25.9-34.0 [facility] Comment on above: Performed By: #### F ERR #### [facility] [address] [place] [address] Dr. Krystle Heaton MCHC (RBC) [Mass/Vol] 30.4 g/dL Normal 29.9-35.2 [facility] Comment on above: Performed By: #### F ERR #### [facility] [address] [place] [address] Dr. Krystle Heaton MCV (RBC) [Entitic vol] 91.1 fL Normal 80.0-94.0 [facility] Comment on above: Performed By: #### F ERR #### [facility] [address] [place] [address] Dr. Krystle Heaton MONO # 0.5 103/ul Normal 0.3-0.8 [facility] Comment on above: Performed By: #### F ERR #### [facility] [address] [place] [address] Dr. Krystle Heaton Monocytes/100 WBC (Bld) 10.4 % Normal 1.7-12.0 [facility] Comment on above: Performed By: #### F ERR #### [facility] [address] [address] [address] Krystle Heaton NEUT # 3.2 103/ul Normal 1.4-6.5 [facility] Comment on above: Performed By: #### F ERR #### [facility] [address] [place] [address] Dr. Krystle Heaton Neutrophils/100 WBC (Bld) 66.8 % Normal 43.0-75.0 [facility] Comment on above: Performed By: #### F ERR #### [facility] [address] [place] [address] Dr. Krystle Heaton Platelet mean volume (Bld) [Entitic vol] 11.3 fL Normal 9.5-13.5 [facility] Comment on above: Performed By: #### F ERR #### [facility] [address] [place] [address] Dr. Krystle Heaton PLT 177 103/ul Normal 150-450 [facility] Comment on above: Performed By: #### F ERR #### [facility] [address] [place] [address] Dr. Krystle Heaton RBC 4.70 106/ul Normal 4.70-6.10 [facility] Comment on above: Performed By: #### F ERR #### [facility] [address] [place] [address] Dr. Krystle Heaton WBC 4.8 103/ul Normal 4.0-11.0 [facility] Comment on above: Performed By: #### F ERR #### [facility] [address] [place] [address] Dr. Krystle Heaton FERRITINon 11-26-2021 Ferritin [Mass/Vol] 63.0 ng/mL Normal 17.9-464.0 [facility] Comment on above: Performed By: #### C BC #### [facility] [address] [place] [address] Billy Deanen FREE THYROXINE INDEX T7on FTI 2.14 Normal [facility] Comment on above: Performed By: #### T 7, LIPA, TSH, AMADOU, CMP #### [facility] [address] [place] [address] Dr. Krystle Heaton T3U 34.0 % Normal 23.5-40.5 [facility] Comment on above: Performed By: #### T 7, LIPA, TSH, AMADOU, CMP #### [facility] [address] [place] [address] Dr. Krystle Heaton T4 [Mass/Vol] 6.30 ug/dL Normal 5.53-11.00 [facility] Comment on above: Performed By: #### T 7, LIPA, TSH, AMADOU, CMP #### [facility] [address] [place] [address] Dr. Krystle Heaton LIPASEon 11-26-2021 Lipase [Catalytic activity/Vol] 115.0 U/L Normal 23.0-300.0 [facility] Comment on above: Performed By: #### T 7, LIPA, TSH, AMADOU, CMP #### [facility] [address] [place] [address] Dr. Krystle Heaton PROF 14(COMP METB)on 022 Albumin [Mass/Vol] 3.6 g/dL Normal 3.5-5.0 [facility] Comment on above: Performed By: #### T 7, LIPA, TSH, AMADOU, CMP #### [facility] [address] [place] [address] Dr. Krystle Heaton Albumin/Globulin [Mass ratio] 0.9 {ratio} Normal [facility] Comment on above: Performed By: #### T 7, LIPA, TSH, AMADOU, CMP #### [facility] [address] [place] [address] Dr. Krystle Heaton ALP [Catalytic activity/Vol] 94 U/L Normal 38-126 [facility] Comment on above: Performed By: #### T 7, LIPA, TSH, AMADOU, CMP #### [facility] [address] [place] [address] Dr. Krystle Heaton ALT [Catalytic activity/Vol] 103 U/L Critically high 21-72 [facility] Comment on above: Performed By: #### T 7, LIPA, TSH, AMADOU, CMP #### [facility] [address] [place] [address] Dr. Krystle Heaton Anion gap [Moles/Vol] 12.8 mmol/L Normal [facility] Comment on above: Performed By: #### T 7, LIPA, TSH, AMADOU, CMP #### [facility] [address] [place] [address] Dr. Krystle Heaton AST [Catalytic activity/Vol] 148 U/L Critically high 17-59 [facility] Comment on above: Performed By: #### T 7, LIPA, TSH, AMADOU, CMP #### [facility] [address] [address] [address] Krystle Heaton Bilirubin [Mass/Vol] 1.2 mg/dL Normal 0.2-1.3 [facility] Comment on above: Performed By: #### T 7, LIPA, TSH, AMADOU, CMP #### [facility] [address] [place] [address] Dr. Krystle Heaton Calcium [Mass/Vol] 9.1 mg/dL Normal 8.4-10.2 The [facility] Comment on above: Performed By: #### T 7, LIPA, TSH, AMADOU, CMP #### [facility] [address] [place] [address] Dr. Krystle Heaton Chloride [Moles/Vol] 100 mmol/L Normal 98-107 [facility] Comment on above: Performed By: #### T 7, LIPA, TSH, AMADOU, CMP #### [facility] [address] [place] [address] Dr. Krystle Heaton CO2 [Moles/Vol] 26.7 mmol/L Normal 22.0-30.0 [facility] Comment on above: Performed By: #### T 7, LIPA, TSH, AMADOU, CMP #### [facility] [address] [place] [address] Dr. Krystle Heaton Creatinine [Mass/Vol] 0.94 mg/dL Normal 0.66-1.25 [facility] Comment on above: Performed By: #### T 7, LIPA, TSH, AMADOU, CMP #### [facility] [address] [place] [address] Dr. Krystle Heaton EGFR-AF KAZAKH >60 Normal >=60 [facility] Comment on above: Performed By: #### T 7, LIPA, TSH, AMADOU, CMP #### [facility] [address] [address] [address] Krystle Heaton EGFR-NON AF KAZAKH >60 Normal >=60 [facility] Comment on above: Performed By: #### T 7, LIPA, TSH, AMADOU, CMP #### [facility] [address] [address] [address] Krystle Heaton Globulin (S) [Mass/Vol] 4.0 g/dL Normal [facility] Comment on above: Performed By: #### T 7, LIPA, TSH, AMADOU, CMP #### [facility] [address] [address] [address] Krystle Heaton Glucose [Mass/Vol] 112 mg/dL Critically high 74-106 [facility] Comment on above: Performed By: #### T 7, LIPA, TSH, AMADOU, CMP #### [facility] [address] [address] [address] Krystle Heaton Potassium [Moles/Vol] 4.5 mmol/L Normal 3.4-5.0 [facility] Comment on above: Performed By: #### T 7, LIPA, TSH, AMADOU, CMP #### [facility] [address] [address] [address] Krystle Heaton Protein [Mass/Vol] 7.6 g/dL Normal 6.1-8.2 [facility] Comment on above: Performed By: #### T 7, LIPA, TSH, AMADOU, CMP #### [facility] [address] [address] [address] Krystle Heaton Sodium [Moles/Vol] 135 mmol/L Critically low 137-145 [facility] Comment on above: Performed By: #### T 7, LIPA, TSH, AMADOU, CMP #### [facility] [address] [address] [address] Krystle Heaton Urea nitrogen [Mass/Vol] 5.0 mg/dL Critically low 9.0-20.0 [facility] Comment on above: Performed By: #### T 7, LIPA, TSH, AMADOU, CMP #### [facility] [address] [place] [address] Dr. Krystle Heaton Urea nitrogen/Creatinine [Mass ratio] 5.3 mg/mg Normal [facility] Comment on above: Performed By: #### T 7, LIPA, TSH, AMADOU, CMP #### [facility] [address] [address] [address] Krystle Heaton TSHon 11-26-2021 TSH 1.842 uIU/mL Normal 0.470-4.680 [facility] Comment on above: Performed By: #### T 7, LIPA, TSH, AMADOU, CMP #### [facility] [address] [place] [address] Dr. Krystle Heaton TSH RANGE SEE BELOW Normal [facility] Comment on above: Result Comment: <0.3 4 UIU/ml HYPERTHYROID 0.34-5.60 UIU/ml EUTHYROID >5.60 UIU/ml HYPOTHYROID Performed By: #### T 7, LIPA, TSH, AMADOU, CMP #### [facility] [address] [place] [address] Dr. Krystle Heaton [facility]-19 [facility]on SARS-CoV-2 (COVID-19) RNA JIMBO+probe Ql (Unsp spec) Not detected Normal NOT DETECTED [facility] Comment on above: Result Comment: This test is not yet approved or cleared by the [place] FDA. When there are no FDA-approved or cleared tests available, and other criteria are met, FDA can make tests available under an emergency access mechanism called an Emergency Use Authorization (EUA). The EUA for this test is supported by the Commissioner Conservation Of Resources of Health and Human Service's (HHS's) declaration [...] SARS-CoV-2. Performed By: #### F ERR #### [facility] [address] [place] [address] Dr. Krystle Heaton CBC AUTO DIFFon 10-08-2021 BASO # 0.0 103/ul Normal 0.0-0.1 [facility] Comment on above: Performed By: #### T 7, LIPA, TSH, AMADOU, CMP #### [facility] [address] [place] [address] Dr. Krystle Heaton Basophils/100 WBC (Bld) 0.7 % Normal 0.2-2.0 [facility] Comment on above: Performed By: #### T 7, LIPA, TSH, AMADOU, CMP #### [facility] [address] [place] [address] Dr. Krystle Heaton EO # 0.2 103/ul Normal 0.0-0.7 [facility] Comment on above: Performed By: #### T 7, LIPA, TSH, AMADOU, CMP #### [facility] [address] [place] [address] Dr. Krystle Heaton Eosinophils/100 WBC (Bld) 3.6 % Normal 0.9-7.0 [facility] Comment on above: Performed By: #### T 7, LIPA, TSH, AMADOU, CMP #### [facility] [address] [place] [address] Dr. Krystle Heaton Erythrocyte distribution width (RBC) [Ratio] 16.0 % Critically high 11.0-15.0 [facility] Comment on above: Performed By: #### T 7, LIPA, TSH, AMADOU, CMP #### [facility] [address] [place] [address] Dr. Krystle Heaton Hematocrit (Bld) [Volume fraction] 38.7 % Critically low 42.0-54.0 [facility] Comment on above: Performed By: #### T 7, LIPA, TSH, AMADOU, CMP #### [facility] [address] [place] [address] Dr. Krystle Heaton Hemoglobin (Bld) [Mass/Vol] 11.7 g/dL Critically low 14.0-18.0 [facility] Comment on above: Performed By: #### T 7, LIPA, TSH, AMADOU, CMP #### [facility] [address] [place] [address] Dr. Krystle Heaton IG # 0.01 10e3/ul Normal 0.00-0.03 [facility] Comment on above: Performed By: #### T 7, LIPA, TSH, AMADOU, CMP #### [facility] [address] [place] [address] Dr. Krystle Heaton IG % 0.2 % Normal 0.0-0.5 [facility] Comment on above: Performed By: #### T 7, LIPA, TSH, AMADOU, CMP #### [facility] [address] [place] [address] Dr. Krystle Heaton LYMPH # 1.6 103/ul Normal 1.2-3.8 [facility] Comment on above: Performed By: #### T 7, LIPA, TSH, AMADOU, CMP #### [facility] [address] [place] [address] Dr. Krystle Heaton Lymphocytes/100 WBC (Bld) 29.2 % Normal 20.5-60.0 [facility] Comment on above: Performed By: #### T 7, LIPA, TSH, AMADOU, CMP #### [facility] [address] [place] [address] Dr. Krystle Heaton MANUAL DIFF REQ NO Normal [facility] Comment on above: Performed By: #### T 7, LIPA, TSH, AMADOU, CMP #### [facility] [address] [place] [address] Dr. Krystle Heaton MCH (RBC) [Entitic mass] 27.7 pg Normal 25.9-34.0 [facility] Comment on above: Performed By: #### T 7, LIPA, TSH, AMADOU, CMP #### [facility] [address] [place] [address] Dr. Krystle Heaton MCHC (RBC) [Mass/Vol] 30.2 g/dL Normal 29.9-35.2 [facility] Comment on above: Performed By: #### T 7, LIPA, TSH, AMADOU, CMP #### [facility] [address] [place] [address] Dr. Krystle Heaton MCV (RBC) [Entitic vol] 91.5 fL Normal 80.0-94.0 [facility] Comment on above: Performed By: #### T 7, LIPA, TSH, AMADOU, CMP #### [facility] [address] [place] [address] Dr. Krystle Heaton MONO # 0.6 103/ul Normal 0.3-0.8 [facility] Comment on above: Performed By: #### T 7, LIPA, TSH, AMADOU, CMP #### [facility] [address] [place] [address] Dr. Krystle Heaton Monocytes/100 WBC (Bld) 10.5 % Normal 1.7-12.0 [facility] Comment on above: Performed By: #### T 7, LIPA, TSH, AMADOU, CMP #### [facility] [address] [place] [address] Dr. Krystle Heaton NEUT # 3.1 103/ul Normal 1.4-6.5 [facility] Comment on above: Performed By: #### T 7, LIPA, TSH, AMADOU, CMP #### [facility] [address] [place] [address] Dr. Krystle Heaton Neutrophils/100 WBC (Bld) 55.8 % Normal 43.0-75.0 [facility] Comment on above: Performed By: #### T 7, LIPA, TSH, AMADOU, CMP #### [facility] [address] [place] [address] Dr. Krystle Heaton Platelet mean volume (Bld) [Entitic vol] 10.9 fL Normal 9.5-13.5 [facility] Comment on above: Performed By: #### T 7, LIPA, TSH, AMADOU, CMP #### [facility] [address] [place] [address] Dr. Krystle Heaton PLT 214 103/ul Normal 150-450 [facility] Comment on above: Performed By: #### T 7, LIPA, TSH, AMADOU, CMP #### [facility] [address] [place] [address] Dr. Krystle Heaton RBC 4.23 106/ul Critically low 4.70-6.10 [facility] Comment on above: Performed By: #### T 7, LIPA, TSH, AMADOU, CMP #### [facility] [address] [place] [address] Dr. Krystle Heaton WBC 5.5 103/ul Normal 4.0-11.0 [facility] Comment on above: Performed By: #### T 7, LIPA, TSH, AMADOU, CMP #### [facility] [address] [place] [address] Dr. Krystle Heaton FERRITINon 10-08-2021 Ferritin [Mass/Vol] 59.0 ng/mL Normal 17.9-464.0 [facility] Comment on above: Performed By: #### T 7, LIPA, TSH, AMADOU, CMP #### [facility] [address] [place] [address] Dr. Krystle Heaton CBC AUTO DIFFon 09-10-2021 BASO # 0.0 103/ul Normal 0.0-0.1 [facility] Comment on above: Performed By: #### C BC #### [facility] [address] [place] [address] Billy Quita Basophils/100 WBC (Bld) 0.8 % Normal 0.2-2.0 [facility] Comment on above: Performed By: #### C BC #### [facility] [address] [place] [address] Billy Quita EO # 0.1 103/ul Normal 0.0-0.7 [facility] Comment on above: Performed By: #### C BC #### [facility] [address] [place] [address] Billy Quita Eosinophils/100 WBC (Bld) 3.5 % Normal 0.9-7.0 [facility] Comment on above: Performed By: #### C BC #### [facility] [address] [place] [address] Billycarrillo Devlin Erythrocyte distribution width (RBC) [Ratio] 16.7 % Critically high 11.0-15.0 [facility] Comment on above: Performed By: #### C BC #### [facility] [address] [place] [address] Billy Quita Hematocrit (Bld) [Volume fraction] 40.6 % Critically low 42.0-54.0 [facility] Comment on above: Performed By: #### C BC #### [facility] [address] [place] [address] Billy Quita Hemoglobin (Bld) [Mass/Vol] 12.4 g/dL Critically low 14.0-18.0 [facility] Comment on above: Performed By: #### C BC #### [facility] [address] [place] [address] Billy Quita IG # 0.01 10e3/ul Normal 0.00-0.03 [facility] Comment on above: Performed By: #### C BC #### [facility] [address] [place] [address] Billy Quita IG % 0.3 % Normal 0.0-0.5 [facility] Comment on above: Performed By: #### C BC #### [facility] [address] [place] [address] Billy Quita LYMPH # 1.5 103/ul Normal 1.2-3.8 [facility] Comment on above: Performed By: #### C BC #### [facility] [address] [place] [address] Billy Devlin Lymphocytes/100 WBC (Bld) 39.7 % Normal 20.5-60.0 [facility] Comment on above: Performed By: #### C BC #### [facility] [address] [place] [address] Billycarrillo Devlin MANUAL DIFF REQ NO Normal [facility] Comment on above: Performed By: #### C BC #### [facility] [address] [place], [place] [address] Billycarrillo Devlin MCH (RBC) [Entitic mass] 27.6 pg Normal 25.9-34.0 [facility] Comment on above: Performed By: #### C BC #### [facility] [address] [place] [id number] Billycarrillo Devlin MCHC (RBC) [Mass/Vol] 30.5 g/dL Normal 29.9-35.2 [facility] Comment on above: Performed By: #### C BC #### [facility] [address] [place], [place] [id number] Billy Quita MCV (RBC) [Entitic vol] 90.2 fL Normal 80.0-94.0 [facility] Comment on above: Performed By: #### C BC #### [facility] [address] [place] [address] Billy Quita MONO # 0.5 103/ul Normal 0.3-0.8 [facility] Comment on above: Performed By: #### C BC #### [facility] [address] [place], [place] [id number] Billy Quita Monocytes/100 WBC (Bld) 13.3 % Critically high 1.7-12.0 [facility] Comment on above: Performed By: #### C BC #### [facility] [address] [place], [place] [id number] Billycarrillo Deanen NEUT # 1.6 103/ul Normal 1.4-6.5 [facility] Comment on above: Performed By: #### C BC #### [facility] [address] [place], [place] [id number] Billy Quita Neutrophils/100 WBC (Bld) 42.4 % Critically low 43.0-75.0 [facility] Comment on above: Performed By: #### C BC #### [facility] [address] [place], [place] [id number] Billy Quita Platelet mean volume (Bld) [Entitic vol] 11.5 fL Normal 9.5-13.5 [facility] Comment on above: Performed By: #### C BC #### [facility] [address] [place] [address] Billy Devlin PLT 136 103/ul Critically low 150-450 [facility] Comment on above: Performed By: #### C BC #### [facility] [address] [place] [address] Billy Devlin RBC 4.50 106/ul Critically low 4.70-6.10 [facility] Comment on above: Performed By: #### C BC #### [facility] [address] [place] [address] Billy Deanen WBC 3.7 103/ul Critically low 4.0-11.0 [facility] Comment on above: Performed By: #### C BC #### [facility] [address] [place] [address] Billy Devlin FERRITINon 09-10-2021 Ferritin [Mass/Vol] 106.0 ng/mL Normal 17.9-464.0 [facility] Comment on above: Performed By: #### F ERR #### [facility] [address] [place] [address] Dr. Krystle Heaton CBC AUTO DIFFon 08-15-2021 BASO # 0.0 103/ul Normal 0.0-0.1 [facility] Comment on above: Performed By: #### C BC #### [facility] [address] [place] [address] Dr. Krystle Heaton Basophils/100 WBC (Bld) 0.8 % Normal 0.2-2.0 [facility] Comment on above: Performed By: #### C BC #### [facility] [address] [place] [address] Dr. Krystle Heaton EO # 0.2 103/ul Normal 0.0-0.7 [facility] Comment on above: Performed By: #### C BC #### [facility] [address] [place] [address] Dr. Krystle Heaton Eosinophils/100 WBC (Bld) 4.4 % Normal 0.9-7.0 [facility] Comment on above: Performed By: #### C BC #### [facility] [address] [place] [address] Dr. Krystle Heaton Erythrocyte distribution width (RBC) [Ratio] 15.7 % Critically high 11.0-15.0 [facility] Comment on above: Performed By: #### C BC #### [facility] [address] [place] [address] Dr. Krystle Heaton Hematocrit (Bld) [Volume fraction] 39.4 % Critically low 42.0-54.0 [facility] Comment on above: Performed By: #### C BC #### [facility] [address] [place] [address] Dr. Krystle Heaton Hemoglobin (Bld) [Mass/Vol] 12.2 g/dL Critically low 14.0-18.0 [facility] Comment on above: Performed By: #### C BC #### [facility] [address] [place] [address] Dr. Krystle Heaton IG # 0.01 10e3/ul Normal 0.00-0.03 [facility] Comment on above: Performed By: #### C BC #### [facility] [address] [place] [address] Dr. Krystle Heaton IG % 0.2 % Normal 0.0-0.5 [facility] Comment on above: Performed By: #### C BC #### [facility] [address] [place] [address] Dr. Krystle Heaton LYMPH # 1.5 103/ul Normal 1.2-3.8 [facility] Comment on above: Performed By: #### C BC #### [facility] [address] [place] [address] Dr. Krystle Heaton Lymphocytes/100 WBC (Bld) 32.2 % Normal 20.5-60.0 [facility] Comment on above: Performed By: #### C BC #### [facility] [address] [place] [address] Dr. Krystle Heaton MANUAL DIFF REQ NO Normal [facility] Comment on above: Performed By: #### C BC #### [facility] [address] [address] [address] Krystle Heaton MCH (RBC) [Entitic mass] 27.4 pg Normal 25.9-34.0 [facility] Comment on above: Performed By: #### C BC #### [facility] [address] [place] [address] Dr. Krystle Heaton MCHC (RBC) [Mass/Vol] 31.0 g/dL Normal 29.9-35.2 [facility] Comment on above: Performed By: #### C BC #### [facility] [address] [place] [address] Dr. Krystle Heaton MCV (RBC) [Entitic vol] 88.5 fL Normal 80.0-94.0 [facility] Comment on above: Performed By: #### C BC #### [facility] [address] [place] [address] Dr. Krystle Heaton MONO # 0.6 103/ul Normal 0.3-0.8 [facility] Comment on above: Performed By: #### C BC #### [facility] [address] [place] [address] Dr. Krystle Heaton Monocytes/100 WBC (Bld) 11.7 % Normal 1.7-12.0 [facility] Comment on above: Performed By: #### C BC #### [facility] [address] [place] [address] Dr. Krystle Heaton NEUT # 2.4 103/ul Normal 1.4-6.5 [facility] Comment on above: Performed By: #### C BC #### [facility] [address] [place] [address] Dr. Krystle Heaton Neutrophils/100 WBC (Bld) 50.7 % Normal 43.0-75.0 [facility] Comment on above: Performed By: #### C BC #### [facility] [address] [place] [address] Dr. Krystle Heaton Platelet mean volume (Bld) [Entitic vol] 11.4 fL Normal 9.5-13.5 [facility] Comment on above: Performed By: #### C BC #### [facility] [address] [address] [address] Krystle Heaton PLT 169 103/ul Normal 150-450 [facility] Comment on above: Performed By: #### C BC #### [facility] [address] [address] [address] Krystle Heaton RBC 4.45 106/ul Critically low 4.70-6.10 [facility] Comment on above: Performed By: #### C BC #### [facility] [address] [address] [address] Krystle Heaton WBC 4.8 103/ul Normal 4.0-11.0 [facility] Comment on above: Performed By: #### C BC #### [facility] [address] [address] [address] Krystle Heaton FERRITINon 08-15-2021 Ferritin [Mass/Vol] 103.0 ng/mL Normal 17.9-464.0 [facility] Comment on above: Performed By: #### T 7, LIPA, TSH, AMADOU, CMP #### [facility] [address] [address] [address] Krystle Heaton No Panel Informationon 07-31 Name ANGIE FRITZ Pathologist: COLLETTE DOTSON MD Date of Procedure: 07/31/2021 [facility] Work Phone: Radiologyon 07-31-2021 US Guidance for fine needle aspiration of Liver Normal -[facility] [address] [facility] Work Phone: [facility] Surgical Pathology Depar tmenton 07-31-2021 [facility] Surgical Pathology Department Name ANGIE FRITZ [...] toto in 2 cassettes A1 and A2. [facility]/07/31/2021 The assays/tests were performed with appropriate positive and negative controls which stained appropriately. [facility] Department of Pathology [address] [place] [address] Normal [facility] Comment on above: Performed By: #### U [facility] #### [facility] Surgical Pathology Department [address] [place] [address] US BIOPSY LIVER PERon 2020 US BIOPSY LIVER PER Patient Name: ANGIE FRITZ STUDY: US BIOPSY LIVER PER; 07/31/2021 1:03 pm PROCEDURE: ULTRASOUND GUIDED NON TARGETED RANDOM BIOPSY OF THE LIVER INDICATION: Hemochromatosis; here for tissue diagnosis COMPARISON: CT-guided liver biopsy 05/08/2021. ACCESSION NUMBER(S): [id number] ORDERING CLINICIAN: ENOCH HERRMANN GUIDE EXCURSION: Dr. Roland (attending) Dee Lopes MD MEDICATIONS: [...] as stated. This study was interpreted at [place], [place]. Electronically signed by: SANDY ROLAND MD Normal [facility] CBC AUTO DIFFon 07-28-2021 BASO # 0.0 103/ul Normal 0.0-0.1 [facility] Comment on above: Performed By: #### T 7, LIPA, TSH, AMADOU, CMP #### [facility] [address] [address] [address] Krystle Heaton Basophils/100 WBC (Bld) 0.6 % Normal 0.2-2.0 [facility] Comment on above: Performed By: #### T 7, LIPA, TSH, AMADOU, CMP #### [facility] [address] [address] [address] Krystle Heaton EO # 0.2 103/ul Normal 0.0-0.7 [facility] Comment on above: Performed By: #### T 7, LIPA, TSH, AMADOU, CMP #### [facility] [address] [place] [address] Dr. Krystle Heaton Eosinophils/100 WBC (Bld) 3.6 % Normal 0.9-7.0 [facility] Comment on above: Performed By: #### T 7, LIPA, TSH, AMADOU, CMP #### [facility] [address] [place] [address] Dr. Krystle Heaton Erythrocyte distribution width (RBC) [Ratio] 14.7 % Normal 11.0-15.0 [facility] Comment on above: Performed By: #### T 7, LIPA, TSH, AMADOU, CMP #### [facility] [address] [place] [address] Dr. Krystle Heaton Hematocrit (Bld) [Volume fraction] 37.4 % Critically low 42.0-54.0 [facility] Comment on above: Performed By: #### T 7, LIPA, TSH, AMADOU, CMP #### [facility] [address] [place] [address] Dr. Krystle Heaton Hemoglobin (Bld) [Mass/Vol] 11.5 g/dL Critically low 14.0-18.0 [facility] Comment on above: Performed By: #### T 7, LIPA, TSH, AMADOU, CMP #### [facility] [address] [place] [address] Dr. Krystle Heaton IG # 0.02 10e3/ul Normal 0.00-0.03 [facility] Comment on above: Performed By: #### T 7, LIPA, TSH, AMADOU, CMP #### [facility] [address] [place] [address] Dr. Krystle Heaton IG % 0.4 % Normal 0.0-0.5 [facility] Comment on above: Performed By: #### T 7, LIPA, TSH, AMADOU, CMP #### [facility] [address] [place] [address] Dr. Krystle Heaton LYMPH # 1.5 103/ul Normal 1.2-3.8 [facility] Comment on above: Performed By: #### T 7, LIPA, TSH, AMADOU, CMP #### [facility] [address] [place] [address] Dr. Krystle Heaton Lymphocytes/100 WBC (Bld) 31.3 % Normal 20.5-60.0 [facility] Comment on above: Performed By: #### T 7, LIPA, TSH, AMADOU, CMP #### [facility] [address] [place] [address] Dr. Krystle Heaton MANUAL DIFF REQ NO Normal [facility] Comment on above: Performed By: #### T 7, LIPA, TSH, AMADOU, CMP #### [facility] [address] [place] [address] Dr. Krystle Heaton MCH (RBC) [Entitic mass] 27.8 pg Normal 25.9-34.0 [facility] Comment on above: Performed By: #### T 7, LIPA, TSH, AMADOU, CMP #### [facility] [address] [place] [address] Dr. Krystle Heaton MCHC (RBC) [Mass/Vol] 30.7 g/dL Normal 29.9-35.2 [facility] Comment on above: Performed By: #### T 7, LIPA, TSH, AMADOU, CMP #### [facility] [address] [place] [address] Dr. Krystle Heaton MCV (RBC) [Entitic vol] 90.6 fL Normal 80.0-94.0 [facility] Comment on above: Performed By: #### T 7, LIPA, TSH, AMADOU, CMP #### [facility] [address] [place] [address] Dr. Krystle Heaton MONO # 0.6 103/ul Normal 0.3-0.8 [facility] Comment on above: Performed By: #### T 7, LIPA, TSH, AMADOU, CMP #### [facility] [address] [place] [address] Dr. Krystle Heaton Monocytes/100 WBC (Bld) 12.8 % Critically high 1.7-12.0 [facility] Comment on above: Performed By: #### T 7, LIPA, TSH, AMADOU, CMP #### [facility] [address] [place] [address] Dr. Krystle Heaton NEUT # 2.4 103/ul Normal 1.4-6.5 [facility] Comment on above: Performed By: #### T 7, LIPA, TSH, AMADOU, CMP #### [facility] [address] [place] [address] Dr. Krystle Heaton Neutrophils/100 WBC (Bld) 51.3 % Normal 43.0-75.0 [facility] Comment on above: Performed By: #### T 7, LIPA, TSH, AMADOU, CMP #### [facility] [address] [place] [address] Dr. Krystle Heaton Platelet mean volume (Bld) [Entitic vol] 11.4 fL Normal 9.5-13.5 [facility] Comment on above: Performed By: #### T 7, LIPA, TSH, AMADOU, CMP #### [facility] [address] [place] [address] Dr. Krystle Heaton PLT 190 103/ul Normal 150-450 [facility] Comment on above: Performed By: #### T 7, LIPA, TSH, AMADOU, CMP #### [facility] [address] [place] [address] Dr. Krystle Heaton RBC 4.13 106/ul Critically low 4.70-6.10 [facility] Comment on above: Performed By: #### T 7, LIPA, TSH, AMADOU, CMP #### [facility] [address] [place] [address] Dr. Krystle Heaton WBC 4.7 103/ul Normal 4.0-11.0 [facility] Comment on above: Performed By: #### T 7, LIPA, TSH, AMADOU, CMP #### [facility] [address] [place] [address] Dr. Krystle Heaton PROTIMEon 07-28-2021 INR Coag (PPP) [Relative time] 1.00 {INR} Normal [facility] Comment on above: Performed By: #### H BSANS #### [facility] [address] [place] [address] Billy Devlin INR GUIDELINES SEE BELOW Normal [facility] Comment on above: Result Comment: MOUNA RED INR: 2.0 - 3.0 CONDITIONS NOT LISTED BELOW 2.5 - 3.5 FOR PROSTHETIC HEART VALVE REPLACEMENT 2.5 - 3.5 RECURRENT THROMBOSIS Performed By: #### H ANJUMNS #### [facility] [address] [place] [address] Billy Devlin PT Coag (PPP) [Time] 10.8 s Normal 9.0-11.6 [facility] Comment on above: Performed By: #### H BSASUZANNE #### [facility] [address] [place] [address] Billy Devlin CBC AUTO DIFFon 07-09-2021 BASO # 0.0 103/ul Normal 0.0-0.1 [facility] Comment on above: Performed By: #### T 7, LIPA, TSH, AMADOU, CMP #### [facility] [address] [place] [address] Dr. Krystle Heaton Basophils/100 WBC (Bld) 0.4 % Normal 0.2-2.0 [facility] Comment on above: Performed By: #### T 7, LIPA, TSH, AMADOU, CMP #### [facility] [address] [place] [address] Dr. Krystle Heaton EO # 0.2 103/ul Normal 0.0-0.7 [facility] Comment on above: Performed By: #### T 7, LIPA, TSH, AMADOU, CMP #### [facility] [address] [place] [address] Dr. Krystle Heaton Eosinophils/100 WBC (Bld) 2.9 % Normal 0.9-7.0 [facility] Comment on above: Performed By: #### T 7, LIPA, TSH, AMADOU, CMP #### [facility] [address] [place] [address] Dr. Krystle Heaton Erythrocyte distribution width (RBC) [Ratio] 13.9 % Normal 11.0-15.0 [facility] Comment on above: Performed By: #### T 7, LIPA, TSH, AMADOU, CMP #### [facility] [address] [place] [address] Dr. Krystle Heaton Hematocrit (Bld) [Volume fraction] 40.4 % Critically low 42.0-54.0 [facility] Comment on above: Performed By: #### T 7, LIPA, TSH, AMADOU, CMP #### [facility] [address] [place] [address] Dr. Krystle Heaton Hemoglobin (Bld) [Mass/Vol] 12.3 g/dL Critically low 14.0-18.0 [facility] Comment on above: Performed By: #### T 7, LIPA, TSH, AMADOU, CMP #### [facility] [address] [place] [address] Dr. Krystle Heaton IG # 0.03 10e3/ul Normal 0.00-0.03 [facility] Comment on above: Performed By: #### T 7, LIPA, TSH, AMADOU, CMP #### [facility] [address] [place] [address] Dr. Krystle Heaton IG % 0.6 % Critically high 0.0-0.5 [facility] Comment on above: Performed By: #### T 7, LIPA, TSH, AMADOU, CMP #### [facility] [address] [place] [address] Dr. Krystle Heaton LYMPH # 1.5 103/ul Normal 1.2-3.8 [facility] Comment on above: Performed By: #### T 7, LIPA, TSH, AMADOU, CMP #### [facility] [address] [place] [address] Dr. Krystle Heaton Lymphocytes/100 WBC (Bld) 28.3 % Normal 20.5-60.0 [facility] Comment on above: Performed By: #### T 7, LIPA, TSH, AMADOU, CMP #### [facility] [address] [place] [address] Dr. Krystle Heaton MANUAL DIFF REQ NO Normal [facility] Comment on above: Performed By: #### T 7, LIPA, TSH, AMADOU, CMP #### [facility] [address] [place] [address] Dr. Krystle Heaton MCH (RBC) [Entitic mass] 28.3 pg Normal 25.9-34.0 [facility] Comment on above: Performed By: #### T 7, LIPA, TSH, AMADOU, CMP #### [facility] [address] [place] [address] Dr. Krystle Heaton MCHC (RBC) [Mass/Vol] 30.4 g/dL Normal 29.9-35.2 [facility] Comment on above: Performed By: #### T 7, LIPA, TSH, AMADOU, CMP #### [facility] [address] [place] [address] Dr. Krystle Heaton MCV (RBC) [Entitic vol] 93.1 fL Normal 80.0-94.0 [facility] Comment on above: Performed By: #### T 7, LIPA, TSH, AMADOU, CMP #### [facility] [address] [place] [address] Dr. Krystle Heaton MONO # 0.7 103/ul Normal 0.3-0.8 [facility] Comment on above: Performed By: #### T 7, LIPA, TSH, AMADOU, CMP #### [facility] [address] [place] [address] Dr. Krystle Heaton Monocytes/100 WBC (Bld) 13.4 % Critically high 1.7-12.0 [facility] Comment on above: Performed By: #### T 7, LIPA, TSH, AMADOU, CMP #### [facility] [address] [place] [address] Dr. Krystle Heaton NEUT # 2.8 103/ul Normal 1.4-6.5 [facility] Comment on above: Performed By: #### T 7, LIPA, TSH, AMADOU, CMP #### [facility] [address] [place] [address] Dr. Krystle Heaton Neutrophils/100 WBC (Bld) 54.4 % Normal 43.0-75.0 [facility] Comment on above: Performed By: #### T 7, LIPA, TSH, AMADOU, CMP #### [facility] [address] [address] [address] Krystle Heaton Platelet mean volume (Bld) [Entitic vol] 11.7 fL Normal 9.5-13.5 [facility] Comment on above: Performed By: #### T 7, LIPA, TSH, AMADOU, CMP #### [facility] [address] [place] [address] Dr. Krystle Heaton PLT 192 103/ul Normal 150-450 [facility] Comment on above: Performed By: #### T 7, LIPA, TSH, AMADOU, CMP #### [facility] [address] [place] [address] Dr. Krystle Heaton RBC 4.34 106/ul Critically low 4.70-6.10 [facility] Comment on above: Performed By: #### T 7, LIPA, TSH, AMADOU, CMP #### [facility] [address] [place] [address] Dr. Krystle Heaton WBC 5.2 103/ul Normal 4.0-11.0 [facility] Comment on above: Performed By: #### T 7, LIPA, TSH, AMADOU, CMP #### [facility] [address] [place] [address] Dr. Krystle Heaton FERRITINon 07-09-2021 Ferritin [Mass/Vol] 122.0 ng/mL Normal 17.9-464.0 [facility] Comment on above: Performed By: #### T 7, LIPA, TSH, AMADOU, CMP #### [facility] [address] [place] [address] Dr. Krystle Heaton CBC AUTO DIFFon 06-11-2021 BASO # 0.0 103/ul Normal 0.0-0.1 [facility] Comment on above: Performed By: #### T 7, LIPA, TSH, AMADOU, CMP #### [facility] [address] [place] [address] Dr. Krystle Heaton Basophils/100 WBC (Bld) 0.7 % Normal 0.2-2.0 [facility] Comment on above: Performed By: #### T 7, LIPA, TSH, AMADOU, CMP #### [facility] [address] [place] [address] Dr. Krystle Heaton EO # 0.2 103/ul Normal 0.0-0.7 [facility] Comment on above: Performed By: #### T 7, LIPA, TSH, AMADOU, CMP #### [facility] [address] [place] [address] Dr. Krystle Heaton Eosinophils/100 WBC (Bld) 3.9 % Normal 0.9-7.0 [facility] Comment on above: Performed By: #### T 7, LIPA, TSH, AMADOU, CMP #### [facility] [address] [place] [address] Dr. Krystle Heaton Erythrocyte distribution width (RBC) [Ratio] 13.0 % Normal 11.0-15.0 [facility] Comment on above: Performed By: #### T 7, LIPA, TSH, AMADOU, CMP #### [facility] [address] [place] [address] Dr. Krystle Heaton Hematocrit (Bld) [Volume fraction] 39.0 % Critically low 42.0-54.0 [facility] Comment on above: Performed By: #### T 7, LIPA, TSH, AMADOU, CMP #### [facility] [address] [place] [address] Dr. Krystle Heaton Hemoglobin (Bld) [Mass/Vol] 12.4 g/dL Critically low 14.0-18.0 [facility] Comment on above: Performed By: #### T 7, LIPA, TSH, AMADOU, CMP #### [facility] [address] [place] [address] Dr. Krystle Heaton IG # 0.01 10e3/ul Normal 0.00-0.03 [facility] Comment on above: Performed By: #### T 7, LIPA, TSH, AMADOU, CMP #### [facility] [address] [place] [address] Dr. Krystle Heaton IG % 0.2 % Normal 0.0-0.5 [facility] Comment on above: Performed By: #### T 7, LIPA, TSH, AMADOU, CMP #### [facility] [address] [place] [address] Dr. Krystle Heaton LYMPH # 1.0 103/ul Critically low 1.2-3.8 [facility] Comment on above: Performed By: #### T 7, LIPA, TSH, AMADOU, CMP #### [facility] [address] [place] [address] Dr. Krystle Heaton Lymphocytes/100 WBC (Bld) 23.1 % Normal 20.5-60.0 [facility] Comment on above: Performed By: #### T 7, LIPA, TSH, AMADOU, CMP #### [facility] [address] [place] [address] Dr. Krystle Heaton MANUAL DIFF REQ NO Normal [facility] Comment on above: Performed By: #### T 7, LIPA, TSH, AMADOU, CMP #### [facility] [address] [place] [address] Dr. Krystle Heaton MCH (RBC) [Entitic mass] 31.2 pg Normal 25.9-34.0 [facility] Comment on above: Performed By: #### T 7, LIPA, TSH, AMADOU, CMP #### [facility] [address] [place] [address] Dr. Krystle Heaton MCHC (RBC) [Mass/Vol] 31.8 g/dL Normal 29.9-35.2 [facility] Comment on above: Performed By: #### T 7, LIPA, TSH, AMADOU, CMP #### [facility] [address] [place] [address] Dr. Krystle Heaton MCV (RBC) [Entitic vol] 98.2 fL Critically high 80.0-94.0 [facility] Comment on above: Performed By: #### T 7, LIPA, TSH, AMADOU, CMP #### [facility] [address] [place] [address] Dr. Krystle Heaton MONO # 0.5 103/ul Normal 0.3-0.8 [facility] Comment on above: Performed By: #### T 7, LIPA, TSH, AMADOU, CMP #### [facility] [address] [place] [address] Dr. Krystle Heaton Monocytes/100 WBC (Bld) 10.4 % Normal 1.7-12.0 [facility] Comment on above: Performed By: #### T 7, LIPA, TSH, AMADOU, CMP #### [facility] [address] [place] [address] Dr. Krystle Heaton NEUT # 2.7 103/ul Normal 1.4-6.5 [facility] Comment on above: Performed By: #### T 7, LIPA, TSH, AMADOU, CMP #### [facility] [address] [place] [address] Dr. Krystle Heaton Neutrophils/100 WBC (Bld) 61.7 % Normal 43.0-75.0 [facility] Comment on above: Performed By: #### T 7, LIPA, TSH, AMADOU, CMP #### [facility] [address] [place] [address] Dr. Krystle Heaton Platelet mean volume (Bld) [Entitic vol] 10.8 fL Normal 9.5-13.5 [facility] Comment on above: Performed By: #### T 7, LIPA, TSH, AMADOU, CMP #### [facility] [address] [place] [address] Dr. Krystle Heaton PLT 197 103/ul Normal 150-450 [facility] Comment on above: Performed By: #### T 7, LIPA, TSH, AMADOU, CMP #### [facility] [address] [place] [address] Dr. Krystle Heaton RBC 3.97 106/ul Critically low 4.70-6.10 [facility] Comment on above: Performed By: #### T 7, LIPA, TSH, AMADOU, CMP #### [facility] [address] [place] [address] Dr. Krystle Heaton WBC 4.3 103/ul Normal 4.0-11.0 [facility] Comment on above: Performed By: #### T 7, LIPA, TSH, AMADOU, CMP #### [facility] [address] [place] [address] Dr. Krystle Heaton FERRITINon 06-11-2021 Ferritin [Mass/Vol] 107.0 ng/mL Normal 17.9-464.0 [facility] Comment on above: Performed By: #### T 7, LIPA, TSH, AMADOU, CMP #### [facility] [address] [place] [address] Dr. Krystle Heaton CBC AUTO DIFFon 05-28-2021 BASO # 0.0 103/ul Normal 0.0-0.1 [facility] Comment on above: Performed By: #### T 7, LIPA, TSH, AMADOU, CMP #### [facility] [address] [place] [address] Dr. Krystle Heaton Basophils/100 WBC (Bld) 0.5 % Normal 0.2-2.0 [facility] Comment on above: Performed By: #### T 7, LIPA, TSH, AMADOU, CMP #### [facility] [address] [place] [address] Dr. Krystle Heaton EO # 0.1 103/ul Normal 0.0-0.7 [facility] Comment on above: Performed By: #### T 7, LIPA, TSH, AMADOU, CMP #### [facility] [facility] [address] [place] [address] Dr. Krystle Heaton Eosinophils/100 WBC (Bld) 3.5 % Normal 0.9-7.0 [facility] Comment on above: Performed By: #### T 7, LIPA, TSH, AMADOU, CMP #### [facility] [address] [place] [address] Dr. Krystle Heaton Erythrocyte distribution width (RBC) [Ratio] 12.6 % Normal 11.0-15.0 [facility] Comment on above: Performed By: #### T 7, LIPA, TSH, AMADOU, CMP #### [facility] [address] [place] [address] Dr. Krystle Heaton Hematocrit (Bld) [Volume fraction] 39.8 % Critically low 42.0-54.0 [facility] Comment on above: Performed By: #### T 7, LIPA, TSH, AMADOU, CMP #### [facility] [address] [place] [address] Dr. Krystle Heaton Hemoglobin (Bld) [Mass/Vol] 12.5 g/dL Critically low 14.0-18.0 [facility] Comment on above: Performed By: #### T 7, LIPA, TSH, AMADOU, CMP #### [facility] [address] [place] [address] Dr. Krystle Heaton IG # 0.00 10e3/ul Normal 0.00-0.03 [facility] Comment on above: Performed By: #### T 7, LIPA, TSH, AMADOU, CMP #### [facility] [address] [place] [address] Dr. Krystle Heaton IG % 0.0 % Normal 0.0-0.5 [facility] Comment on above: Performed By: #### T 7, LIPA, TSH, AMADOU, CMP #### [facility] [address] [place] [address] Dr. Krystle Heaton LYMPH # 1.2 103/ul Normal 1.2-3.8 [facility] Comment on above: Performed By: #### T 7, LIPA, TSH, AMADOU, CMP #### [facility] [address] [place] [address] Dr. Krystle Heaton Lymphocytes/100 WBC (Bld) 32.7 % Normal 20.5-60.0 [facility] Comment on above: Performed By: #### T 7, LIPA, TSH, AMADOU, CMP #### [facility] [address] [place] [address] Dr. Krystle Heaton MANUAL DIFF REQ NO Normal [facility] Comment on above: Performed By: #### T 7, LIPA, TSH, AMAODU, CMP #### [facility] [address] [place] [address] Dr. Krystle Heaton MCH (RBC) [Entitic mass] 32.1 pg Normal 25.9-34.0 [facility] Comment on above: Performed By: #### T 7, LIPA, TSH, AMADOU, CMP #### [facility] [address] [place] [address] Dr. Krystle Heaton MCHC (RBC) [Mass/Vol] 31.4 g/dL Normal 29.9-35.2 [facility] Comment on above: Performed By: #### T 7, LIPA, TSH, AMADOU, CMP #### [facility] [address] [place] [address] Dr. Krystle Heaton MCV (RBC) [Entitic vol] 102.3 fL Critically high 80.0-94.0 [facility] Comment on above: Performed By: #### T 7, LIPA, TSH, AMADOU, CMP #### [facility] [address] [place] [address] Dr. Krystle Heaton MONO # 0.4 103/ul Normal 0.3-0.8 [facility] Comment on above: Performed By: #### T 7, LIPA, TSH, AMADOU, CMP #### [facility] [address] [place] [address] Dr. Krystle Heaton Monocytes/100 WBC (Bld) 10.5 % Normal 1.7-12.0 [facility] Comment on above: Performed By: #### T 7, LIPA, TSH, AMADOU, CMP #### [facility] [address] [place] [address] Dr. Krystle Heaton NEUT # 2.0 103/ul Normal 1.4-6.5 [facility] Comment on above: Performed By: #### T 7, LIPA, TSH, AMADOU, CMP #### [facility] [address] [place] [address] Dr. Krystle Heaton Neutrophils/100 WBC (Bld) 52.8 % Normal 43.0-75.0 [facility] Comment on above: Performed By: #### T 7, LIPA, TSH, AMADOU, CMP #### [facility] [address] [place] [address] Dr. Krystle Heaton Platelet mean volume (Bld) [Entitic vol] 10.7 fL Normal 9.5-13.5 [facility] Comment on above: Performed By: #### T 7, LIPA, TSH, AMADOU, CMP #### [facility] [address] [address] [address] Krystle Heaton PLT 227 103/ul Normal 150-450 [facility] Comment on above: Performed By: #### T 7, LIPA, TSH, AMADOU, CMP #### [facility] [address] [address] [address] Krystle Heaton RBC 3.89 106/ul Critically low 4.70-6.10 [facility] Comment on above: Performed By: #### T 7, LIPA, TSH, AMADOU, CMP #### [facility] [address] [address] [address] Krystle Heaton WBC 3.7 103/ul Critically low 4.0-11.0 [facility] Comment on above: Performed By: #### T 7, LIPA, TSH, AMADOU, CMP #### [facility] [address] [place] [address] Dr. Krystle Heaton FERRITINon 05-28-2021 Ferritin [Mass/Vol] 169.0 ng/mL Normal 17.9-464.0 [facility] Comment on above: Performed By: #### F ERR #### [facility] [address] [place] [address] Dr. Krystle Heaton METHYLMALONIC ACID (MMA)on 0 05-18-2021 Disclaimer: Comment Normal [facility] Comment on above: Result Comment: This test was developed and its performance characteristics determined by [facility]. It has not been cleared or approved by the Food and Drug Administration. Performed By: #### T 7, LIPA, TSH, AMADOU, CMP #### [facility] [address] [place] [address] Dr. Krystle Heaton Methylmalonic Acid, Serum 124 nmol/L Normal 0-378 [facility] Comment on above: Performed By: #### T 7, LIPA, TSH, AMADOU, CMP #### [facility] [address] [place] [address] Dr. Krystle Heaton HOMOCYSTEINEon 05-16-2021 Homocyst(e)ine, Plasma 19.5 umol/L Critically high 0.0-14.5 [facility] Comment on above: Performed By: #### T 7, LIPA, TSH, AMADOU, CMP #### [facility] [address] [place] [address] Dr. Krystle Heaton CBC AUTO DIFFon 05-15-2021 BASO # 0.0 103/ul Normal 0.0-0.1 [facility] Comment on above: Performed By: #### T 7, LIPA, TSH, AMADOU, CMP #### [facility] [address] [place] [address] Dr. Krystle Heaton Basophils/100 WBC (Bld) 0.5 % Normal 0.2-2.0 [facility] Comment on above: Performed By: #### T 7, LIPA, TSH, AMADOU, CMP #### [facility] [address] [place] [address] Dr. Krystle Heaton EO # 0.1 103/ul Normal 0.0-0.7 [facility] Comment on above: Performed By: #### T 7, LIPA, TSH, AMADOU, CMP #### [facility] [address] [place] [address] Dr. Krystle Heaton Eosinophils/100 WBC (Bld) 1.8 % Normal 0.9-7.0 [facility] Comment on above: Performed By: #### T 7, LIPA, TSH, AMADOU, CMP #### [facility] [address] [place] [address] Dr. Krystle Heaton Erythrocyte distribution width (RBC) [Ratio] 12.7 % Normal 11.0-15.0 [facility] Comment on above: Performed By: #### T 7, LIPA, TSH, AMADOU, CMP #### [facility] [address] [place] [address] Dr. Krystle Heaton Hematocrit (Bld) [Volume fraction] 39.4 % Critically low 42.0-54.0 [facility] Comment on above: Performed By: #### T 7, LIPA, TSH, AMADOU, CMP #### [facility] [address] [place] [address] Dr. Krystle Heaton Hemoglobin (Bld) [Mass/Vol] 12.9 g/dL Critically low 14.0-18.0 [facility] Comment on above: Performed By: #### T 7, LIPA, TSH, AMADOU, CMP #### [facility] [address] [place] [address] Dr. Krystle Heaton IG # 0.02 10e3/ul Normal 0.00-0.03 [facility] Comment on above: Performed By: #### T 7, LIPA, TSH, AMADOU, CMP #### [facility] [address] [place] [address] Dr. Krystle Heaton IG % 0.4 % Normal 0.0-0.5 [facility] Comment on above: Performed By: #### T 7, LIPA, TSH, AMADOU, CMP #### [facility] [address] [place] [address] Dr. Krystle Heaton LYMPH # 1.4 103/ul Normal 1.2-3.8 [facility] Comment on above: Performed By: #### T 7, LIPA, TSH, AMADOU, CMP #### [facility] [address] [place] [address] Dr. Krystle Heaton Lymphocytes/100 WBC (Bld) 24.9 % Normal 20.5-60.0 [facility] Comment on above: Performed By: #### T 7, LIPA, TSH, AMADOU, CMP #### [facility] [address] [place] [address] Dr. Krystle Heaton MANUAL DIFF REQ NO Normal [facility] Comment on above: Performed By: #### T 7, LIPA, TSH, AMADOU, CMP #### [facility] [address] [place] [address] Dr. Krystle Heaton MCH (RBC) [Entitic mass] 34.0 pg Normal 25.9-34.0 [facility] Comment on above: Performed By: #### T 7, LIPA, TSH, AMADOU, CMP #### [facility] [address] [place] [address] Dr. Krystle Heaton MCHC (RBC) [Mass/Vol] 32.7 g/dL Normal 29.9-35.2 [facility] Comment on above: Performed By: #### T 7, LIPA, TSH, AMADOU, CMP #### [facility] [address] [place] [address] Dr. Krystle Heaton MCV (RBC) [Entitic vol] 104.0 fL Critically high 80.0-94.0 [facility] Comment on above: Performed By: #### T 7, LIPA, TSH, AMADOU, CMP #### [facility] [address] [place] [address] Dr. Krystle Heaton MONO # 0.7 103/ul Normal 0.3-0.8 [facility] Comment on above: Performed By: #### T 7, LIPA, TSH, AMADOU, CMP #### [facility] [address] [place] [address] Dr. Krystle Heaton Monocytes/100 WBC (Bld) 11.8 % Normal 1.7-12.0 [facility] Comment on above: Performed By: #### T 7, LIPA, TSH, AMADOU, CMP #### [facility] [address] [place] [address] Dr. Krystle Heaton NEUT # 3.3 103/ul Normal 1.4-6.5 [facility] Comment on above: Performed By: #### T 7, LIPA, TSH, AMADOU, CMP #### [facility] [address] [place] [address] Dr. Krystle Heaton Neutrophils/100 WBC (Bld) 60.6 % Normal 43.0-75.0 [facility] Comment on above: Performed By: #### T 7, LIPA, TSH, AMADOU, CMP #### [facility] [address] [place] [address] Dr. Krystle Heaton Platelet mean volume (Bld) [Entitic vol] 10.2 fL Normal 9.5-13.5 [facility] Comment on above: Performed By: #### T 7, LIPA, TSH, AMADOU, CMP #### [facility] [address] [place] [address] Dr. Krystle Heaton PLT 196 103/ul Normal 150-450 [facility] Comment on above: Performed By: #### T 7, LIPA, TSH, AMADOU, CMP #### [facility] [address] [place] [address] Dr. Krystle eHaton RBC 3.79 106/ul Critically low 4.70-6.10 [facility] Comment on above: Performed By: #### T 7, LIPA, TSH, AMADOU, CMP #### [facility] [address] [place] [address] Dr. Krystle Heaton WBC 5.5 103/ul Normal 4.0-11.0 [facility] Comment on above: Performed By: #### T 7, LIPA, TSH, AMADOU, CMP #### [facility] [address] [place] [address] Dr. Krystle Heaton FERRITINon 05-15-2021 Ferritin [Mass/Vol] 302.0 ng/mL Normal 17.9-464.0 [facility] Comment on above: Performed By: #### C BC #### [facility] [address] [place] [address] Billy Devlin PROF 14(COMP METB)on 021 Albumin [Mass/Vol] 3.5 g/dL Normal 3.5-5.0 [facility] Comment on above: Performed By: #### C BC #### [facility] [address] [place], [place] [id number] Billy Devlin Albumin/Globulin [Mass ratio] 1.0 {ratio} Normal [facility] Comment on above: Performed By: #### C BC #### [facility] [address] [place], [place] [id number] Billy Devlin ALP [Catalytic activity/Vol] 71 U/L Normal 38-126 [facility] Comment on above: Performed By: #### C BC #### [facility] [address] [place], [place] [id number] Billy Quita ALT [Catalytic activity/Vol] 40 U/L Normal 21-72 [facility] Comment on above: Performed By: #### C BC #### [facility] [address] [place], [place] [address] Billy Quita Anion gap [Moles/Vol] 17.5 mmol/L Normal [facility] Comment on above: Performed By: #### C BC #### [facility] [address] [place], [place] [id number] Billy Quita AST [Catalytic activity/Vol] 43 U/L Normal 17-59 [facility] Comment on above: Performed By: #### C BC #### [facility] [address] [place] [address] Billy Quita Bilirubin [Mass/Vol] 0.3 mg/dL Normal 0.2-1.3 [facility] Comment on above: Performed By: #### C BC #### [facility] [address] [place] [address] Billy Quita Calcium [Mass/Vol] 8.8 mg/dL Normal 8.4-10.2 [facility] Comment on above: Performed By: #### C BC #### [facility] [address] [place] [address] Billy Quita Chloride [Moles/Vol] 101 mmol/L Normal 98-107 [facility] Comment on above: Performed By: #### C BC #### [facility] [address] [place] [address] Billy Quita CO2 [Moles/Vol] 26.6 mmol/L Normal 22.0-30.0 [facility] Comment on above: Performed By: #### C BC #### [facility] [address] [place] [address] Billy Quita Creatinine [Mass/Vol] 0.88 mg/dL Normal 0.66-1.25 [facility] Comment on above: Performed By: #### C BC #### [facility] [address] [place], [place] [address] Billy Quita EGFR-AF KAZAKH >60 Normal >=60 [facility] Comment on above: Performed By: #### C BC #### [facility] [address] [place], [place] [address] Billy Quita EGFR-NON AF KAZAKH >60 Normal >=60 [facility] Comment on above: Performed By: #### C BC #### [facility] [address] [place], [place] [address] Billy Quita Globulin (S) [Mass/Vol] 3.6 g/dL Normal [facility] Comment on above: Performed By: #### C BC #### [facility] [address] [place], [place] [address] Billy Quita Glucose [Mass/Vol] 101 mg/dL Normal 74-106 The [facility] Comment on above: Performed By: #### C BC #### [facility] [address] [place], [place] [address] Billy Quita Potassium [Moles/Vol] 4.1 mmol/L Normal 3.4-5.0 [facility] Comment on above: Performed By: #### C BC #### [facility] [address] [place], [place] [address] Billy Quita Protein [Mass/Vol] 7.1 g/dL Normal 6.1-8.2 The [facility] Comment on above: Performed By: #### C BC #### [facility] [address] [place], [place] [address] Billy Quita Sodium [Moles/Vol] 141 mmol/L Normal 137-145 The [facility] Comment on above: Performed By: #### C BC #### [facility] [address] [place], [place] [address] Billy Quita Urea nitrogen [Mass/Vol] 11.0 mg/dL Normal 9.0-20.0 [facility] Comment on above: Performed By: #### C BC #### [facility] [address] [place], [place] [address] Billy Quita Urea nitrogen/Creatinine [Mass ratio] 12.5 mg/mg Normal [facility] Comment on above: Performed By: #### C BC #### [facility] [address], [place] [address] Billy Quita IN BIOPSY LIVER PERCUTANEOUS NEEDLEon 05-08-2021 IN BIOPSY LIVER PERCUTANEOUS NEEDLE Patient Name: ANGIE FRITZ STUDY: IN BIOPSY LIVER PERCUTANEOUS NEEDLE; ; 05/08/2021 11:46 am INDICATION: None. COMPARISON: None. ACCESSION NUMBER(S): [id number] ORDERING CLINICIAN: ENOCH HERRMANN TECHNIQUE: CONSENT: The [...] and cap. Additionally, the performing physician and residential living assistant used maximum barrier technique to include [...] were made using an 18 gauge spring-loaded Explore Engage core biopsy needle. Good core samples were [...] above Electronically signed by: URI BACON MD [facility] Order Reconciliationon 05-08 Order Reconciliation Page [...] tab(s) orally 2 times a day Normal [facility] Surgical Pathology Depar tmenton 05-08-2021 [facility] Surgical Pathology Department Name ANGIE FRITZ Pathologist: SUSAN BLACK M.D., PhD. Date of Procedure: 05/08/2021 Date Received: 05/08/2021 Date Reported 05/11/2021 Submitting Physician: ENOCH HERRMANN MD Location: [facility] Copy To/Referring/Attending: URI BACON MD [...] positive and negative controls which stained appropriately. [facility] Department of Pathology [address] [place] [address] Normal [facility] Comment on above: Performed By: #### U HCS #### [facility] Surgical Pathology Department [address] [place] [address] CBC AUTO DIFFon 05-04-2021 BASO # 0.0 103/ul Normal 0.0-0.1 [facility] Comment on above: Performed By: #### F ERR #### [facility] [address] [place] [address] Dr. Krystle Heaton Basophils/100 WBC (Bld) 0.5 % Normal 0.2-2.0 [facility] Comment on above: Performed By: #### F ERR #### [facility] [address] [place] [address] Dr. Krystle Heaton EO # 0.1 103/ul Normal 0.0-0.7 [facility] Comment on above: Performed By: #### F ERR #### [facility] [address] [place] [address] Dr. Krystle Heaton Eosinophils/100 WBC (Bld) 2.5 % Normal 0.9-7.0 [facility] Comment on above: Performed By: #### F ERR #### [facility] [address] [place] [address] Dr. Krystle Heaton Erythrocyte distribution width (RBC) [Ratio] 12.5 % Normal 11.0-15.0 [facility] Comment on above: Performed By: #### F ERR #### [facility] [address] [place] [address] Dr. Krystle Heaton Hematocrit (Bld) [Volume fraction] 34.3 % Critically low 42.0-54.0 [facility] Comment on above: Performed By: #### F ERR #### [facility] [address] [place] [address] Dr. Krystle Heaton Hemoglobin (Bld) [Mass/Vol] 11.2 g/dL Critically low 14.0-18.0 [facility] Comment on above: Performed By: #### F ERR #### [facility] [address] [place] [address] Dr. Krystle Heaton IG # 0.01 10e3/ul Normal 0.00-0.03 [facility] Comment on above: Performed By: #### F ERR #### [facility] [address] [place] [address] Dr. Krystle Heaton IG % 0.3 % Normal 0.0-0.5 [facility] Comment on above: Performed By: #### F ERR #### [facility] [address] [place] [address] Dr. Krystle Heaton LYMPH # 1.3 103/ul Normal 1.2-3.8 [facility] Comment on above: Performed By: #### F ERR #### [facility] [address] [place] [address] Dr. Krystle Heaton Lymphocytes/100 WBC (Bld) 33.3 % Normal 20.5-60.0 [facility] Comment on above: Performed By: #### F ERR #### [facility] [address] [place] [address] Dr. Krystle Heaton MANUAL DIFF REQ NO Normal [facility] Comment on above: Performed By: #### F ERR #### [facility] [address] [place] [address] Dr. Krystle Heaton MCH (RBC) [Entitic mass] 35.6 pg Critically high 25.9-34.0 [facility] Comment on above: Performed By: #### F ERR #### [facility] [address] [place] [address] Dr. Krystle Heaton MCHC (RBC) [Mass/Vol] 32.7 g/dL Normal 29.9-35.2 [facility] Comment on above: Performed By: #### F ERR #### [facility] [address] [place] [address] Dr. Krystle Heaton MCV (RBC) [Entitic vol] 108.9 fL Critically high 80.0-94.0 [facility] Comment on above: Performed By: #### F ERR #### [facility] [address] [place] [address] Dr. Krystle Heaton MONO # 0.4 103/ul Normal 0.3-0.8 [facility] Comment on above: Performed By: #### F ERR #### [facility] [address] [place] [address] Dr. Krystle Heaton Monocytes/100 WBC (Bld) 10.0 % Normal 1.7-12.0 [facility] Comment on above: Performed By: #### F ERR #### [facility] [address] [place] [address] Dr. Krystle Heaton NEUT # 2.1 103/ul Normal 1.4-6.5 [facility] Comment on above: Performed By: #### F ERR #### [facility] [address] [place] [address] Dr. Krystle Heaton Neutrophils/100 WBC (Bld) 53.4 % Normal 43.0-75.0 [facility] Comment on above: Performed By: #### F ERR #### [facility] [address] [place] [address] Dr. Krystle Heaton Platelet mean volume (Bld) [Entitic vol] 10.7 fL Normal 9.5-13.5 [facility] Comment on above: Performed By: #### F ERR #### [facility] [address] [place] [address] Dr. Krystle Heaton PLT 174 103/ul Normal 150-450 [facility] Comment on above: Performed By: #### F ERR #### [facility] [address] [place] [address] Dr. Krystle Heaton RBC 3.15 106/ul Critically low 4.70-6.10 [facility] Comment on above: Result Comment: SLID E REVIEWED. 2+ MACROCYTOSIS SEEN Performed By: #### F ERR #### [facility] [address] [place] [address] Dr. Krystle Heaton WBC 4.0 103/ul Normal 4.0-11.0 [facility] Comment on above: Performed By: #### F ERR #### [facility] [address] [place] [address] Dr. Krystle Heaton FERRITINon 05-04-2021 Ferritin [Mass/Vol] 417.0 ng/mL Normal 17.9-464.0 [facility] Comment on above: Performed By: #### T 7, LIPA, TSH, AMADOU, CMP #### [facility] [address] [place] [address] Dr. Krystle Heaton AFP (TUMOR MARKER)on 021 AFP, Serum, Tumor Marker 5.2 ng/mL Normal 0.0-8.3 [facility] Comment on above: Result Comment: [employer] Electrochemiluminescence Immunoassay (ECLIA) . Values obtained with different assay methods or kits cannot be used interchangeably. Results cannot be interpreted as absolute evidence of the presence or absence of malignant disease. . This test is not interpretable in females. Performed By: #### T 7, LIPA, TSH, AMADOU, CMP #### [facility] [address] [place] [address] Dr. Krystle Heaton [id number] 2020 [id number] , Serum 132 mg/dL Normal 101-187 [facility] Comment on above: Performed By: #### H BSANS #### [facility] [address] [place] [address] Billy Devlin NE by IFAon 05-02-2021 Antinuclear Antibodies, IFA Negative Normal [facility] Comment on above: Result Comment: Nega tive <1:80 Borderline 1:80 Positive >1:80 Performed By: #### A NAIFA #### [facility] [address] [place] [address] Billy Devlin CERULOPLASMINon 05-02-2021 Ceruloplasmin 27.8 mg/dL Normal 16.0-31.0 [facility] Comment on above: Performed By: #### C BC #### [facility] [address] [place] [address] Billy Devlin HEP A AB TOTALon 05-02-2021 Hep A Ab, Total Negative Normal Negative [facility] Comment on above: Performed By: #### H BSANS #### [facility] [address] [place] [address] Billy Devlin HEP B COREon 05-02-2021 Hep B Core Ab, Tot Negative Normal Negative [facility] Comment on above: Performed By: #### T 7, LIPA, TSH, AMADOU, CMP #### [facility] [address] [place], [place] [id number] Dr. Krystle Heaton HEP B SURFACE ANTIGEN SCREEN on 05-02-2021 HBsAg Screen Negative Normal Negative [facility] Comment on above: Performed By: #### H BSANS #### [facility] [address] [place] [id number] [address] [place]lin HEPATITIS B SURFACE ANTIBODY , QUANTon 05-02-2021 Hepatitis B Surf AB Quant <3.1 Critically low Immunity>9. 9 [facility] Comment on above: Result Comment: Stat us of Immunity Anti-HBs Level Inconsistent with Immunity 0.0 - 9.9 Consistent with Immunity >9.9 Performed By: #### H BSANS #### [facility] [address] [place] [address] Billy Devlin HEPATITIS C ANTIBODYon 05-02 Hep C Virus Ab <0.1 Normal 0.0-0.9 [facility] Comment on above: Result Comment: Nega tive: < 0.8 Indeterminate: 0.8 - 0.9 Positive: > 0.9 . The CDC recommends that a positive HCV antibody result be followed up with a HCV Nucleic Acid Amplification test (699978). Performed By: #### T 7, LA, SAVITA, AMADOU, CMP #### [facility] [address] [place] [address] Dr. Krystle Heaton MITICHONDRIAL (M2) ANTIBODYo n 05-02-2021 Mitochondrial (M2) Antibody <20.0 Normal 0.0-20.0 [facility] Comment on above: Result Comment: Nega tive 0.0 - 20.0 Equivocal 20.1 - 24.9 Positive >24.9 . Mitochondrial (M2) Antibodies are found in 90-96% of patients with primary biliary cirrhosis. Performed By: #### F ERR #### [facility] [address] [place] [address] Dr. Krystle Heaton CBC AUTO DIFFon 05-01-2021 BASO # 0.1 103/ul Normal 0.0-0.1 [facility] Comment on above: Performed By: #### C BC #### [facility] [address] [place] [address] Billy Devlin Basophils/100 WBC (Bld) 1.5 % Normal 0.2-2.0 [facility] Comment on above: Performed By: #### C BC #### [facility] [address] [place] [address] Billy Quita EO # 0.1 103/ul Normal 0.0-0.7 [facility] Comment on above: Performed By: #### C BC #### [facility] [address] [place] [address] Billy Quita Eosinophils/100 WBC (Bld) 2.1 % Normal 0.9-7.0 [facility] Comment on above: Performed By: #### C BC #### [facility] [address] [place] [address] Billy Quita Erythrocyte distribution width (RBC) [Ratio] 12.7 % Normal 11.0-15.0 [facility] Comment on above: Performed By: #### C BC #### [facility] [address] [place] [address] Billy Quita Hematocrit (Bld) [Volume fraction] 34.6 % Critically low 42.0-54.0 [facility] Comment on above: Performed By: #### C BC #### [facility] [address] [place] [address] Billy Quita Hemoglobin (Bld) [Mass/Vol] 11.2 g/dL Critically low 14.0-18.0 [facility] Comment on above: Performed By: #### C BC #### [facility] [address] [place] [address] Billy Quita IG # 0.01 10e3/ul Normal 0.00-0.03 [facility] Comment on above: Performed By: #### C BC #### [facility] [address] [place] [address] Billy Quita IG % 0.3 % Normal 0.0-0.5 [facility] Comment on above: Performed By: #### C BC #### [facility] [address] [place] [address] Billy Quita LYMPH # 1.0 103/ul Critically low 1.2-3.8 [facility] Comment on above: Performed By: #### C BC #### [facility] [address] [place] [address] Billy Quita Lymphocytes/100 WBC (Bld) 30.4 % Normal 20.5-60.0 [facility] Comment on above: Performed By: #### C BC #### [facility] [address] [place] [address] Billy Devlin MANUAL DIFF REQ NO Normal [facility] Comment on above: Performed By: #### C BC #### [facility] [address] [place] [address] Billy Devlin MCH (RBC) [Entitic mass] 35.8 pg Critically high 25.9-34.0 [facility] Comment on above: Performed By: #### C BC #### [facility] [address] [place] [address] Billy Devlin MCHC (RBC) [Mass/Vol] 32.4 g/dL Normal 29.9-35.2 [facility] Comment on above: Performed By: #### C BC #### [facility] [address] [place] [address] Billy Devlin MCV (RBC) [Entitic vol] 110.5 fL Critically high 80.0-94.0 [facility] Comment on above: Performed By: #### C BC #### [facility] [address] [place] [address] Billy Devlin MONO # 0.4 103/ul Normal 0.3-0.8 [facility] Comment on above: Performed By: #### C BC #### [facility] [address] [place] [address] Billy Devlin Monocytes/100 WBC (Bld) 11.3 % Normal 1.7-12.0 [facility] Comment on above: Performed By: #### C BC #### [facility] [address] [place] [address] Billy Devlin NEUT # 1.8 103/ul Normal 1.4-6.5 [facility] Comment on above: Performed By: #### C BC #### [facility] [address] [place] [address] Billy Devlin Neutrophils/100 WBC (Bld) 54.4 % Normal 43.0-75.0 [facility] Comment on above: Performed By: #### C BC #### [facility] [address] [place] [address] Billycarrillo Devlin Platelet mean volume (Bld) [Entitic vol] 11.3 fL Normal 9.5-13.5 [facility] Comment on above: Performed By: #### C BC #### [facility] [address] [place], [place] [address] Billycarrillo Deanen PLT 142 103/ul Critically low 150-450 [facility] Comment on above: Performed By: #### C BC #### [facility] [address] [place] [id number] Billy Quita RBC 3.13 106/ul Critically low 4.70-6.10 [facility] Comment on above: Performed By: #### C BC #### [facility] [address] [id number] Billy Quita WBC 3.4 103/ul Critically low 4.0-11.0 [facility] Comment on above: Performed By: #### C BC #### [facility] [address] [place], [place] [id number] Billy Quita LIVER PROFILEon 05-01-2021 Albumin/Globulin [Mass ratio] 1.0 {ratio} Normal [facility] Comment on above: Performed By: #### H BSANS #### [facility] [address] [place], [place] [id number] Billy Quita ALP [Catalytic activity/Vol] 67 U/L Normal 38-126 [facility] Comment on above: Performed By: #### H BSANS #### [facility] [address] [place], [place] [id number] Billy Quita ALT [Catalytic activity/Vol] 52 U/L Normal 21-72 [facility] Comment on above: Performed By: #### H BSANS #### [facility] [address] [place], [place] [id number] Billy Quita AST [Catalytic activity/Vol] 51 U/L Normal 17-59 [facility] Comment on above: Performed By: #### H BSANS #### [facility] [address] [place], [place] [id number] Billy Quita BILI, CONJUGATED 0.2 mg/dL Normal 0.0-0.3 [facility] Comment on above: Performed By: #### H BSANS #### [facility] [address] [place] [address] Billy Quita Bilirubin [Mass/Vol] 0.5 mg/dL Normal 0.2-1.3 [facility] Comment on above: Performed By: #### H BSANS #### [facility] [address] [place] [address] Billy Quita Globulin (S) [Mass/Vol] 3.4 g/dL Normal [facility] Comment on above: Performed By: #### H BSANS #### [facility] [address] [place] [address] Billy Quita Protein [Mass/Vol] 6.9 g/dL Normal 6.1-8.2 The [facility] Comment on above: Performed By: #### H BSANS #### [facility] [address] [place] [address] Billy Quita PROTIMEon 05-01-2021 INR Coag (PPP) [Relative time] 0.95 {INR} Normal [facility] Comment on above: Performed By: #### C BC #### [facility] [address] [place] [address] Billy Quita INR GUIDELINES SEE BELOW Normal [facility] Comment on above: Result Comment: MOUNA RED INR: 2.0 - 3.0 CONDITIONS NOT LISTED BELOW 2.5 - 3.5 FOR PROSTHETIC HEART VALVE REPLACEMENT 2.5 - 3.5 RECURRENT THROMBOSIS Performed By: #### C BC #### [facility] [address] [place] [address] Billy Quita PT Coag (PPP) [Time] 10.4 s Normal 9.0-11.6 [facility] Comment on above: Performed By: #### C BC #### [facility] [address] [place] [address] Billycarrillo Devlin RENAL FUNCTION PANELon 05-01 Albumin [Mass/Vol] 3.5 g/dL Normal 3.5-5.0 [facility] Comment on above: Performed By: #### H BSANS #### [facility] [address] [place] [address] Billy Quita Calcium [Mass/Vol] 8.7 mg/dL Normal 8.4-10.2 The [facility] Comment on above: Performed By: #### H BSANS #### [facility] [address] [place] [address] Bilyl Quita Chloride [Moles/Vol] 104 mmol/L Normal 98-107 [facility] Comment on above: Performed By: #### H BSANS #### [facility] [address] [place] [address] Billy Quita CO2 [Moles/Vol] 25.7 mmol/L Normal 22.0-30.0 [facility] Comment on above: Performed By: #### H BSANS #### [facility] [address] [place] [address] Billy Quita Creatinine [Mass/Vol] 1.01 mg/dL Normal 0.66-1.25 [facility] Comment on above: Performed By: #### H BSANS #### [facility] [address] [place] [address] Billy Quita EGFR-AF KAZAKH >60 Normal >=60 [facility] Comment on above: Performed By: #### H BSANS #### [facility] [address] [place] [address] Billy Quita EGFR-NON AF KAZAKH >60 Normal >=60 [facility] Comment on above: Performed By: #### H BSANS #### [facility] [address] [place] [address] Billy Quita Glucose [Mass/Vol] 103 mg/dL Normal 74-106 The [facility] Comment on above: Performed By: #### H BSANS #### [facility] [address] [place] [address] Billy Quita Phosphate [Mass/Vol] 3.6 mg/dL Normal 2.5-4.5 [facility] Comment on above: Performed By: #### H BSANS #### [facility] [address] [place] [address] Billy Quita Potassium [Moles/Vol] 4.2 mmol/L Normal 3.4-5.0 [facility] Comment on above: Performed By: #### H BSANS #### [facility] [address] [place] [address] Billy Devlin Sodium [Moles/Vol] 138 mmol/L Normal 137-145 [facility] Comment on above: Performed By: #### H BSANS #### [facility] [address] [place] [address] Billy Devlin Urea nitrogen [Mass/Vol] 7.0 mg/dL Critically low 9.0-20.0 [facility] Comment on above: Performed By: #### H BSANS #### [facility] [address] [place] [address] Billy Devlin CBC AUTO DIFFon 04-27-2021 BASO # 0.0 103/ul Normal 0.0-0.1 [facility] Comment on above: Performed By: #### T 7, LIPA, TSH, AMADOU, CMP #### [facility] [address] [place] [address] Dr. Krystle Heaton Basophils/100 WBC (Bld) 0.9 % Normal 0.2-2.0 [facility] Comment on above: Performed By: #### T 7, LIPA, TSH, AMADOU, CMP #### [facility] [address] [place] [address] Dr. Krystle Heaton EO # 0.1 103/ul Normal 0.0-0.7 [facility] Comment on above: Performed By: #### T 7, LIPA, TSH, AMADOU, CMP #### [facility] [address] [place] [address] Dr. Krystle Heaton Eosinophils/100 WBC (Bld) 2.6 % Normal 0.9-7.0 [facility] Comment on above: Performed By: #### T 7, LIPA, TSH, AMADOU, CMP #### [facility] [address] [place] [address] Dr. Krystle Heaton Erythrocyte distribution width (RBC) [Ratio] 12.4 % Normal 11.0-15.0 [facility] Comment on above: Performed By: #### T 7, LIPA, TSH, AMADOU, CMP #### [facility] [address] [place] [address] Dr. Krystle Heaton Hematocrit (Bld) [Volume fraction] 36.8 % Critically low 42.0-54.0 [facility] Comment on above: Performed By: #### T 7, LIPA, TSH, AMADOU, CMP #### [facility] [address] [place] [address] Dr. Krystle Heaton Hemoglobin (Bld) [Mass/Vol] 12.0 g/dL Critically low 14.0-18.0 [facility] Comment on above: Performed By: #### T 7, LIPA, TSH, AMADOU, CMP #### [facility] [address] [place] [address] Dr. Krystle Heaton IG # 0.02 10e3/ul Normal 0.00-0.03 [facility] Comment on above: Performed By: #### T 7, LIPA, TSH, AMADOU, CMP #### [facility] [address] [place] [address] Dr. Krystle Heaton IG % 0.4 % Normal 0.0-0.5 [facility] Comment on above: Performed By: #### T 7, LIPA, TSH, AMADOU, CMP #### [facility] [address] [place] [address] Dr. Krystle Heaton LYMPH # 1.2 103/ul Normal 1.2-3.8 [facility] Comment on above: Performed By: #### T 7, LIPA, TSH, AMADOU, CMP #### [facility] [address] [place] [address] Dr. Krystle Heaton Lymphocytes/100 WBC (Bld) 26.0 % Normal 20.5-60.0 [facility] Comment on above: Performed By: #### T 7, LIPA, TSH, AMADOU, CMP #### [facility] [address] [place] [address] Dr. Krystle Heaton MANUAL DIFF REQ NO Normal [facility] Comment on above: Performed By: #### T 7, LIPA, TSH, AMADOU, CMP #### [facility] [address] [place] [address] Dr. Krystle Heaton MCH (RBC) [Entitic mass] 36.4 pg Critically high 25.9-34.0 [facility] Comment on above: Performed By: #### T 7, LIPA, TSH, AMADOU, CMP #### [facility] [address] [place] [address] Dr. Krystle Heaton MCHC (RBC) [Mass/Vol] 32.6 g/dL Normal 29.9-35.2 [facility] Comment on above: Performed By: #### T 7, LIPA, TSH, AMADOU, CMP #### [facility] [address] [place] [address] Dr. Krystle Heaton MCV (RBC) [Entitic vol] 111.5 fL Critically high 80.0-94.0 [facility] Comment on above: Performed By: #### T 7, LIPA, TSH, AMADOU, CMP #### [facility] [address] [place] [address] Dr. Krystle Heaton MONO # 0.5 103/ul Normal 0.3-0.8 [facility] Comment on above: Performed By: #### T 7, LIPA, TSH, AMADOU, CMP #### [facility] [address] [place] [address] Dr. Krystle Heaton Monocytes/100 WBC (Bld) 10.1 % Normal 1.7-12.0 [facility] Comment on above: Performed By: #### T 7, LIPA, TSH, AMADOU, CMP #### [facility] [address] [place] [address] Dr. Krystle Heaton NEUT # 2.8 103/ul Normal 1.4-6.5 [facility] Comment on above: Performed By: #### T 7, LIPA, TSH, AMADOU, CMP #### [facility] [address] [place] [address] Dr. Krystle Heaton Neutrophils/100 WBC (Bld) 60.0 % Normal 43.0-75.0 [facility] Comment on above: Performed By: #### T 7, LIPA, TSH, AMADOU, CMP #### [facility] [address] [place] [address] Dr. Krystle Heaton Platelet mean volume (Bld) [Entitic vol] 11.0 fL Normal 9.5-13.5 [facility] Comment on above: Performed By: #### T 7, LIPA, TSH, AMADOU, CMP #### [facility] [address] [place] [address] Dr. Krystle Heaton PLT 140 103/ul Critically low 150-450 [facility] Comment on above: Performed By: #### T 7, LIPA, TSH, AMADOU, CMP #### [facility] [address] [place] [address] Dr. Krystle Heaton RBC 3.30 106/ul Critically low 4.70-6.10 [facility] Comment on above: Performed By: #### T 7, LIPA, TSH, AMADOU, CMP #### [facility] [address] [place] [address] Dr. Krystle Heaton WBC 4.7 103/ul Normal 4.0-11.0 [facility] Comment on above: Performed By: #### T 7, LIPA, TSH, AMADOU, CMP #### [facility] [address] [place] [address] Dr. Krystle Heaton FERRITINon 04-27-2021 Ferritin [Mass/Vol] 845.0 ng/mL Critically high 17.9-464.0 [facility] Comment on above: Performed By: #### F ERR #### [facility] [address] [place] [address] Dr. Krystle Heaton CBC AUTO DIFFon 04-18-2021 BASO # 0.1 103/ul Normal 0.0-0.1 [facility] Comment on above: Performed By: #### T 7, LIPA, TSH, AMADOU, CMP #### [facility] [address] [place] [address] Dr. Krystle Heaton Basophils/100 WBC (Bld) 1.1 % Normal 0.2-2.0 [facility] Comment on above: Performed By: #### T 7, LIPA, TSH, AMADOU, CMP #### [facility] [address] [place] [address] Dr. Krystle Heaton EO # 0.1 103/ul Normal 0.0-0.7 [facility] Comment on above: Performed By: #### T 7, LIPA, TSH, AMADOU, CMP #### [facility] [address] [place] [address] Dr. Krystle Heaton Eosinophils/100 WBC (Bld) 2.2 % Normal 0.9-7.0 [facility] Comment on above: Performed By: #### T 7, LIPA, TSH, AMADOU, CMP #### [facility] [address] [place] [address] Dr. Krystle Heaton Erythrocyte distribution width (RBC) [Ratio] 13.1 % Normal 11.0-15.0 [facility] Comment on above: Performed By: #### T 7, LIPA, TSH, AMADOU, CMP #### [facility] [address] [place] [address] Dr. Krystle Heaton Hematocrit (Bld) [Volume fraction] 35.2 % Critically low 42.0-54.0 [facility] Comment on above: Performed By: #### T 7, LIPA, TSH, AMADOU, CMP #### [facility] [address] [place] [address] Dr. Krystle Heaton Hemoglobin (Bld) [Mass/Vol] 11.8 g/dL Critically low 14.0-18.0 [facility] Comment on above: Performed By: #### T 7, LIPA, TSH, AMADOU, CMP #### [facility] [address] [place] [address] Dr. Krystle Heaton IG # 0.01 10e3/ul Normal 0.00-0.03 [facility] Comment on above: Performed By: #### T 7, LIPA, TSH, AMADOU, CMP #### [facility] [address] [place] [address] Dr. Krystle Heaton IG % 0.2 % Normal 0.0-0.5 [facility] Comment on above: Performed By: #### T 7, LIPA, TSH, AMADOU, CMP #### [facility] [address] [place] [address] Dr. Krystle Heaton LYMPH # 1.6 103/ul Normal 1.2-3.8 [facility] Comment on above: Performed By: #### T 7, LIPA, TSH, AMADOU, CMP #### [facility] [address] [place] [address] Dr. Krystle Heaton Lymphocytes/100 WBC (Bld) 35.1 % Normal 20.5-60.0 [facility] Comment on above: Performed By: #### T 7, LIPA, TSH, AMADOU, CMP #### [facility] [address] [place] [address] Dr. Krystle Heaton MANUAL DIFF REQ NO Normal [facility] Comment on above: Performed By: #### T 7, LIPA, TSH, AMADOU, CMP #### [facility] [address] [place] [address] Dr. Krystle Heaton MCH (RBC) [Entitic mass] 36.6 pg Critically high 25.9-34.0 [facility] Comment on above: Performed By: #### T 7, LIPA, TSH, AMADOU, CMP #### [facility] [address] [place] [address] Dr. Krystle Heaton MCHC (RBC) [Mass/Vol] 33.5 g/dL Normal 29.9-35.2 [facility] Comment on above: Performed By: #### T 7, LIPA, TSH, AMADOU, CMP #### [facility] [address] [place] [address] Dr. Krystle Heaton MCV (RBC) [Entitic vol] 109.3 fL Critically high 80.0-94.0 [facility] Comment on above: Performed By: #### T 7, LIPA, TSH, AMADOU, CMP #### [facility] [address] [place] [address] Dr. Krystle Heaton MONO # 0.5 103/ul Normal 0.3-0.8 [facility] Comment on above: Performed By: #### T 7, LIPA, TSH, AMADOU, CMP #### [facility] [address] [place] [address] Dr. Krystle Heaton Monocytes/100 WBC (Bld) 11.0 % Normal 1.7-12.0 [facility] Comment on above: Performed By: #### T 7, LIPA, TSH, AMADOU, CMP #### [facility] [address] [place] [address] Dr. Krystle Heaton NEUT # 2.2 103/ul Normal 1.4-6.5 [facility] Comment on above: Performed By: #### T 7, LIPA, TSH, AMADOU, CMP #### [facility] [address] [place] [address] Dr. Krystle Heaton Neutrophils/100 WBC (Bld) 50.4 % Normal 43.0-75.0 [facility] Comment on above: Performed By: #### T 7, LIPA, TSH, AMADOU, CMP #### [facility] [address] [place] [address] Dr. Krystle Heaton Platelet mean volume (Bld) [Entitic vol] 10.9 fL Normal 9.5-13.5 [facility] Comment on above: Performed By: #### T 7, LIPA, TSH, AMADOU, CMP #### [facility] [address] [place] [address] Dr. Krystle Heaton PLT 158 103/ul Normal 150-450 [facility] Comment on above: Performed By: #### T 7, LIPA, TSH, AMADOU, CMP #### [facility] [address] [place] [address] Dr. Kryslte Heaton RBC 3.22 106/ul Critically low 4.70-6.10 [facility] Comment on above: Performed By: #### T 7, LIPA, TSH, AMADOU, CMP #### [facility] [address] [place] [address] Dr. Krystle Heaton WBC 4.5 103/ul Normal 4.0-11.0 [facility] Comment on above: Performed By: #### T 7, LIPA, TSH, AMADOU, CMP #### [facility] [address] [place] [address] Dr. Krystle Heaton FERRITINon 04-18-2021 Ferritin [Mass/Vol] ng/mL Critically high 17.9-464.0 [facility] Comment on above: Performed By: #### H BSANS #### [facility] [address] [place] [address] Billy Devlin CBC AUTO DIFFon 04-13-2021 BASO # 0.0 103/ul Normal 0.0-0.1 [facility] Comment on above: Performed By: #### T 7, LIPA, TSH, AMADOU, CMP #### [facility] [address] [place] [address] Dr. Krystle Heaton Basophils/100 WBC (Bld) 0.6 % Normal 0.2-2.0 [facility] Comment on above: Performed By: #### T 7, LIPA, TSH, AMADOU, CMP #### [facility] [address] [place] [address] Dr. Krystle Heaton EO # 0.1 103/ul Normal 0.0-0.7 [facility] Comment on above: Performed By: #### T 7, LIPA, TSH, AMADOU, CMP #### [facility] [address] [place] [address] Dr. Krystle Heaton Eosinophils/100 WBC (Bld) 3.2 % Normal 0.9-7.0 [facility] Comment on above: Performed By: #### T 7, LIPA, TSH, AMADOU, CMP #### [facility] [address] [place] [address] Dr. Krystle Heaton Erythrocyte distribution width (RBC) [Ratio] 13.6 % Normal 11.0-15.0 [facility] Comment on above: Performed By: #### T 7, LIPA, TSH, AMADOU, CMP #### [facility] [address] [place] [address] Dr. Krystle Heaton Hematocrit (Bld) [Volume fraction] 35.3 % Critically low 42.0-54.0 [facility] Comment on above: Performed By: #### T 7, LIPA, TSH, AMADOU, CMP #### [facility] [address] [place] [address] Dr. Krystle Heaton Hemoglobin (Bld) [Mass/Vol] 11.9 g/dL Critically low 14.0-18.0 [facility] Comment on above: Performed By: #### T 7, LIPA, TSH, AMADOU, CMP #### [facility] [address] [place] [address] Dr. Krystle Heaton IG # 0.01 10e3/ul Normal 0.00-0.03 [facility] Comment on above: Performed By: #### T 7, LIPA, TSH, AMADOU, CMP #### [facility] [address] [place] [address] Dr. Krystle Heaton IG % 0.3 % Normal 0.0-0.5 [facility] Comment on above: Performed By: #### T 7, LIPA, TSH, AMADOU, CMP #### [facility] [address] [place] [address] Dr. Krystle Heaton LYMPH # 1.1 103/ul Critically low 1.2-3.8 [facility] Comment on above: Performed By: #### T 7, LIPA, TSH, AMADOU, CMP #### [facility] [address] [place] [address] Dr. Krystle Heaton Lymphocytes/100 WBC (Bld) 35.1 % Normal 20.5-60.0 [facility] Comment on above: Performed By: #### T 7, LIPA, TSH, AMADOU, CMP #### [facility] [address] [place] [address] Dr. Krystle Heaton MANUAL DIFF REQ NO Normal [facility] Comment on above: Performed By: #### T 7, LIPA, TSH, AMADOU, CMP #### [facility] [address] [place] [address] Dr. Krystle Heaton MCH (RBC) [Entitic mass] 37.1 pg Critically high 25.9-34.0 [facility] Comment on above: Performed By: #### T 7, LIPA, TSH, AMADOU, CMP #### [facility] [address] [place] [address] Dr. Krystle Heaton MCHC (RBC) [Mass/Vol] 33.7 g/dL Normal 29.9-35.2 [facility] Comment on above: Performed By: #### T 7, LIPA, TSH, AMADOU, CMP #### [facility] [address] [place] [address] Dr. Krystle Heaton MCV (RBC) [Entitic vol] 110.0 fL Critically high 80.0-94.0 [facility] Comment on above: Result Comment: macr ocytosis 3+ Performed By: #### T 7, LIPA, TSH, AMADOU, CMP #### [facility] [address] [place] [address] Dr. Krystle Heaton MONO # 0.3 103/ul Normal 0.3-0.8 [facility] Comment on above: Performed By: #### T 7, LIPA, TSH, AMADOU, CMP #### [facility] [address] [place] [address] Dr. Krystle Heaton Monocytes/100 WBC (Bld) 10.7 % Normal 1.7-12.0 [facility] Comment on above: Performed By: #### T 7, LIPA, TSH, AMADOU, CMP #### [facility] [address] [place] [address] Dr. Kryslte Heaton NEUT # 1.5 103/ul Normal 1.4-6.5 [facility] Comment on above: Performed By: #### T 7, LIPA, TSH, AMADOU, CMP #### [facility] [address] [place] [address] Dr. Krystle Heaton Neutrophils/100 WBC (Bld) 50.1 % Normal 43.0-75.0 [facility] Comment on above: Performed By: #### T 7, LIPA, TSH, AMADOU, CMP #### [facility] [address] [place] [address] Dr. Krystle Heaton Platelet mean volume (Bld) [Entitic vol] 10.8 fL Normal 9.5-13.5 [facility] Comment on above: Performed By: #### T 7, LIPA, TSH, AMADOU, CMP #### [facility] [address] [place], [place] [id number] Dr. Krystle Heaton PLT 131 103/ul Critically low 150-450 [facility] Comment on above: Performed By: #### T 7, LIPA, TSH, AMADOU, CMP #### [facility] [address] [place] [address] Dr. Krystle Heaton RBC 3.21 106/ul Critically low 4.70-6.10 [facility] Comment on above: Performed By: #### T 7, LIPA, TSH, AMADOU, CMP #### [facility] [address] [address] [address] Krystle Heaton WBC 3.1 103/ul Critically low 4.0-11.0 [facility] Comment on above: Performed By: #### T 7, LIPA, TSH, AMADOU, CMP #### [facility] [address] [place] [address] Dr. Krystle Heaton FERRITINon 04-13-2021 Ferritin [Mass/Vol] ng/mL Critically high 17.9-464.0 [facility] Comment on above: Performed By: #### F ERR #### [facility] [address] [place] [address] Dr. Krystle Heaton Initial Visit (Gastroenterol ogy)on [...] Electronically signed by : Enoch Herrmann MD; Anuj 4 2021 1:09PM EST (Author) Normal [facility] CBC AUTO DIFFon 04-06-2021 BASO # 0.0 103/ul Normal 0.0-0.1 [facility] Comment on above: Performed By: #### H ALEXANDER #### [facility] [address] [address] Billy Quita Basophils/100 WBC (Bld) 0.9 % Normal 0.2-2.0 [facility] Comment on above: Performed By: #### H ALEXANDER #### [facility] [address] [address] Billy Quita EO # 0.1 103/ul Normal 0.0-0.7 [facility] Comment on above: Performed By: #### H ALEXANDER #### [facility] [address] [place] [address] Billy Quita Eosinophils/100 WBC (Bld) 3.0 % Normal 0.9-7.0 [facility] Comment on above: Performed By: #### H ALEXANDER #### [facility] [address] [place] [address] Billy Quita Erythrocyte distribution width (RBC) [Ratio] 13.6 % Normal 11.0-15.0 [facility] Comment on above: Performed By: #### H ALEXANDER #### [facility] [address] [place] [address] Billy Quita Hematocrit (Bld) [Volume fraction] 39.1 % Critically low 42.0-54.0 [facility] Comment on above: Performed By: #### H ALEXANDER #### [facility] [address] [place] [address] Billy Quita Hemoglobin (Bld) [Mass/Vol] 13.1 g/dL Critically low 14.0-18.0 [facility] Comment on above: Performed By: #### H ALEXANDER #### [facility] [address] [place] [address] Billy Quita IG # 0.02 10e3/ul Normal 0.00-0.03 [facility] Comment on above: Performed By: #### H ALEXANDER #### [facility] [address] [id number] Billy Quita IG % 0.5 % Normal 0.0-0.5 [facility] Comment on above: Performed By: #### H ALEXANDER #### [facility] [address] [place] [address] Billy Quita LYMPH # 1.1 103/ul Critically low 1.2-3.8 [facility] Comment on above: Performed By: #### H ALEXANDER #### [facility] [address] [place] [address] Billy Devlin Lymphocytes/100 WBC (Bld) 26.7 % Normal 20.5-60.0 [facility] Comment on above: Performed By: #### H ALEXANDER #### [facility] [address] [place] [address] Billy Devlin MANUAL DIFF REQ NO Normal [facility] Comment on above: Performed By: #### H ALEXANDER #### [facility] [address] [place] [address] Billycarrillo Deanen MCH (RBC) [Entitic mass] 36.7 pg Critically high 25.9-34.0 [facility] Comment on above: Performed By: #### H ALEXANDER #### [facility] [address] [place] [address] Billycarrillo Devlin MCHC (RBC) [Mass/Vol] 33.5 g/dL Normal 29.9-35.2 [facility] Comment on above: Result Comment: macr ocytosis Performed By: #### H ALEXANDER #### [facility] [address] [place] [address] Billycarrillo Devlin MCV (RBC) [Entitic vol] 109.5 fL Critically high 80.0-94.0 [facility] Comment on above: Performed By: #### H ALEXANDER #### [facility] [address] [place] [address] Billy Quita MONO # 0.4 103/ul Normal 0.3-0.8 [facility] Comment on above: Performed By: #### H ALEXANDER #### [facility] [address] [address] Billy Quita Monocytes/100 WBC (Bld) 8.7 % Normal 1.7-12.0 [facility] Comment on above: Performed By: #### H ALEXANDER #### [facility] [address] [place] [address] Billycarrillo Devlin NEUT # 2.6 103/ul Normal 1.4-6.5 [facility] Comment on above: Performed By: #### H ALEXANDER #### [facility] [address] [place], [place] [id number] Billy Devlin Neutrophils/100 WBC (Bld) 60.2 % Normal 43.0-75.0 [facility] Comment on above: Performed By: #### H ALEXANDER #### [facility] [address] [place] [address] Billy Devlin Platelet mean volume (Bld) [Entitic vol] 11.1 fL Normal 9.5-13.5 [facility] Comment on above: Performed By: #### H ALEXANDER #### [facility] [address] [place] [address] Billy Quita PLT 162 103/ul Normal 150-450 [facility] Comment on above: Performed By: #### H ALEXANDER #### [facility] [address] [place], [place] [id number] Billy Quita RBC 3.57 106/ul Critically low 4.70-6.10 [facility] Comment on above: Performed By: #### H ALEXANDER #### [facility] [address] [place], [place] [id number] Billy Quita WBC 4.3 103/ul Normal 4.0-11.0 [facility] Comment on above: Performed By: #### H BSASUZANNE #### [facility] [address] [place], [place] [id number] Billy Devlin FERRITINon 04-06-2021 Ferritin [Mass/Vol] ng/mL Critically high 17.9-464.0 [facility] Comment on above: Performed By: #### T 7, LIPA, TSH, AMADOU, CMP #### [facility] [address] [address] [address] Krystle Heaton FREE T4on 04-06-2021 Free T4 [Mass/Vol] 0.73 ng/dL Critically low 0.78-2.19 [facility] Comment on above: Performed By: #### T 7, LIPA, TSH, AMADOU, CMP #### [facility] [address] [place] [address] Dr. Krystle Heaton IRON AND TIBCon 04-06-2021 % SATURATION 54.8 % Normal [facility] Comment on above: Performed By: #### T 7, LIPA, TSH, AMADOU, CMP #### [facility] [address] [place] [address] Dr. Krystle Heaton Iron [Mass/Vol] 161.0 ug/dL Normal 49.0-181.0 [facility] Comment on above: Performed By: #### T 7, LIPA, TSH, AMADOU, CMP #### [facility] [address] [place] [address] Dr. Krystle Heaton TIBC DIRECT 294.0 ug/dL Normal 261.0-497.0 [facility] Comment on above: Performed By: #### T 7, LIPA, TSH, AMADOU, CMP #### [facility] [address] [place] [address] Dr. Krystle Heaton PROF 14(COMP METB)on 021 Albumin [Mass/Vol] 3.7 g/dL Normal 3.5-5.0 [facility] Comment on above: Performed By: #### T 7, LIPA, TSH, AMADOU, CMP #### [facility] [address] [place] [address] Dr. Krystle Heaton Albumin/Globulin [Mass ratio] 1.0 {ratio} Normal [facility] Comment on above: Performed By: #### T 7, LIPA, TSH, AMADOU, CMP #### [facility] [address] [place] [address] Dr. Krystle Heaton ALP [Catalytic activity/Vol] 83 U/L Normal 38-126 [facility] Comment on above: Performed By: #### T 7, LIPA, TSH, AMADOU, CMP #### [facility] [address] [place] [address] Dr. Krystle Heaton ALT [Catalytic activity/Vol] 140 U/L Critically high 21-72 [facility] Comment on above: Performed By: #### T 7, LIPA, TSH, AMADOU, CMP #### [facility] [address] [place] [address] Dr. Krystle Heaton Anion gap [Moles/Vol] 15.8 mmol/L Normal [facility] Comment on above: Performed By: #### T 7, LIPA, TSH, AMADOU, CMP #### [facility] [address] [place] [address] Dr. Krystle Heaton AST [Catalytic activity/Vol] 186 U/L Critically high 17-59 [facility] Comment on above: Performed By: #### T 7, LIPA, TSH, AMADOU, CMP #### [facility] [address] [place] [address] Dr. Krystle Heaton Bilirubin [Mass/Vol] 0.5 mg/dL Normal 0.2-1.3 [facility] Comment on above: Performed By: #### T 7, LIPA, TSH, AMADOU, CMP #### [facility] [address] [place] [address] Dr. Krystle Heaton Calcium [Mass/Vol] 9.0 mg/dL Normal 8.4-10.2 The [facility] Comment on above: Performed By: #### T 7, LIPA, TSH, AMADOU, CMP #### [facility] [address] [place] [address] Dr. Krystle Heaton Chloride [Moles/Vol] 101 mmol/L Normal 98-107 [facility] Comment on above: Performed By: #### T 7, LIPA, TSH, AMADOU, CMP #### [facility] [address] [place] [address] Dr. Krystle Heaton CO2 [Moles/Vol] 25.8 mmol/L Normal 22.0-30.0 [facility] Comment on above: Performed By: #### T 7, LIPA, TSH, AMADOU, CMP #### [facility] [address] [address] [address] Krystle Heaton Creatinine [Mass/Vol] 1.07 mg/dL Normal 0.66-1.25 [facility] Comment on above: Performed By: #### T 7, LIPA, TSH, AMADOU, CMP #### [facility] [address] [address] [address] Krystle Heaton EGFR-AF KAZAKH >60 Normal >=60 [facility] Comment on above: Performed By: #### T 7, LIPA, TSH, AMADOU, CMP #### [facility] [address] [address] [address] Krystle Heaton EGFR-NON AF KAZAKH >60 Normal >=60 [facility] Comment on above: Performed By: #### T 7, LIPA, TSH, AMADOU, CMP #### [facility] [address] [place] [address] Dr. Krystle Heaton Globulin (S) [Mass/Vol] 3.7 g/dL Normal [facility] Comment on above: Performed By: #### T 7, LIPA, TSH, AMADOU, CMP #### [facility] [address] [place] [address] Dr. Krystle Heaton Glucose [Mass/Vol] 104 mg/dL Normal 74-106 [facility] Comment on above: Performed By: #### T 7, LIPA, TSH, AMADOU, CMP #### [facility] [address] [address] [address] Krystle Heaton Potassium [Moles/Vol] 4.6 mmol/L Normal 3.4-5.0 [facility] Comment on above: Performed By: #### T 7, LIPA, TSH, AMADOU, CMP #### [facility] [address] [address] [address] Krystle Heaton Protein [Mass/Vol] 7.4 g/dL Normal 6.1-8.2 The [facility] Comment on above: Performed By: #### T 7, LIPA, TSH, AMADOU, CMP #### [facility] [address] [place] [address] Dr. Krystle Heaton Sodium [Moles/Vol] 138 mmol/L Normal 137-145 The [facility] Comment on above: Performed By: #### T 7, LIPA, TSH, AMADOU, CMP #### [facility] [address] [place] [address] Dr. Krystle Heaton Urea nitrogen [Mass/Vol] 10.0 mg/dL Normal 9.0-20.0 [facility] Comment on above: Performed By: #### T 7, LIPA, TSH, AMADOU, CMP #### [facility] [address] [place] [address] Dr. Krystle Heaton Urea nitrogen/Creatinine [Mass ratio] 9.3 mg/mg Normal [facility] Comment on above: Performed By: #### T 7, LIPA, TSH, AMADOU, CMP #### [facility] [address] [place] [address] Dr. Krystle Heaton TSHon 04-06-2021 TSH 1.945 uIU/mL Normal 0.470-4.680 [facility] Comment on above: Performed By: #### T 7, LIPA, TSH, AMADOU, CMP #### [facility] [address] [place] [address] Dr. Krystle Heaton TSH RANGE SEE BELOW Normal [facility] Comment on above: Result Comment: <0.3 4 UIU/ml HYPERTHYROID 0.34-5.60 UIU/ml EUTHYROID >5.60 UIU/ml HYPOTHYROID Performed By: #### T 7, LIPA, TSH, AMADOU, CMP #### [facility] [address] [place] [address] Dr. Krystle Heaton CBC AUTO DIFFon 03-30-2021 BASO # 0.0 103/ul Normal 0.0-0.1 [facility] Comment on above: Performed By: #### T 7, LIPA, TSH, AMADOU, CMP #### [facility] [address] [place] [address] Dr. Krystle Heaton Basophils/100 WBC (Bld) 0.8 % Normal 0.2-2.0 [facility] Comment on above: Performed By: #### T 7, LIPA, TSH, AMADOU, CMP #### [facility] [address] [place] [address] Dr. Krystle Heaton EO # 0.1 103/ul Normal 0.0-0.7 [facility] Comment on above: Performed By: #### T 7, LIPA, TSH, AMADOU, CMP #### [facility] [address] [place] [address] Dr. Krystle Heaton Eosinophils/100 WBC (Bld) 3.0 % Normal 0.9-7.0 [facility] Comment on above: Performed By: #### T 7, LIPA, TSH, AMADOU, CMP #### [facility] [address] [place] [address] Dr. Krystle Heaton Erythrocyte distribution width (RBC) [Ratio] 13.9 % Normal 11.0-15.0 [facility] Comment on above: Performed By: #### T 7, LIPA, TSH, AMADOU, CMP #### [facility] [address] [place] [address] Dr. Krystle Heaton Hematocrit (Bld) [Volume fraction] 40.4 % Critically low 42.0-54.0 [facility] Comment on above: Performed By: #### T 7, LIPA, TSH, AMADOU, CMP #### [facility] [address] [place] [address] Dr. Krystle Heaton Hemoglobin (Bld) [Mass/Vol] 13.5 g/dL Critically low 14.0-18.0 [facility] Comment on above: Performed By: #### T 7, LIPA, TSH, AMADOU, CMP #### [facility] [address] [place] [address] Dr. Krystle Heaton IG # 0.01 10e3/ul Normal 0.00-0.03 [facility] Comment on above: Performed By: #### T 7, LIPA, TSH, AMADOU, CMP #### [facility] [address] [place] [address] Dr. Krystle eHaton IG % 0.3 % Normal 0.0-0.5 [facility] Comment on above: Performed By: #### T 7, LIPA, TSH, AMADOU, CMP #### [facility] [address] [place] [address] Dr. Krystle Heaton LYMPH # 1.2 103/ul Normal 1.2-3.8 [facility] Comment on above: Performed By: #### T 7, LIPA, TSH, AMADOU, CMP #### [facility] [address] [place] [address] Dr. Krystle Heaton Lymphocytes/100 WBC (Bld) 32.7 % Normal 20.5-60.0 [facility] Comment on above: Performed By: #### T 7, LIPA, TSH, AMADOU, CMP #### [facility] [address] [place] [address] Dr. Krystle Heaton MANUAL DIFF REQ NO Normal [facility] Comment on above: Performed By: #### T 7, LIPA, TSH, AMADOU, CMP #### [facility] [address] [place] [address] Dr. Krystle Heaton MCH (RBC) [Entitic mass] 36.5 pg Critically high 25.9-34.0 [facility] Comment on above: Performed By: #### T 7, LIPA, TSH, AMADOU, CMP #### [facility] [address] [place] [address] Dr. Krystle Heaton MCHC (RBC) [Mass/Vol] 33.4 g/dL Normal 29.9-35.2 [facility] Comment on above: Result Comment: MACR OCYTOSIS PRESENT Performed By: #### T 7, LIPA, TSH, AMADOU, CMP #### [facility] [address] [place] [address] Dr. Krystle Hetaon MCV (RBC) [Entitic vol] 109.2 fL Critically high 80.0-94.0 [facility] Comment on above: Performed By: #### T 7, LIPA, TSH, AMADOU, CMP #### [facility] [address] [place] [address] Dr. Krystle Heaton MONO # 0.4 103/ul Normal 0.3-0.8 [facility] Comment on above: Performed By: #### T 7, LIPA, TSH, AMADOU, CMP #### [facility] [address] [place] [address] Dr. Krystle Heaton Monocytes/100 WBC (Bld) 11.4 % Normal 1.7-12.0 [facility] Comment on above: Performed By: #### T 7, LIPA, TSH, AMADOU, CMP #### [facility] [address] [place] [address] Dr. Krystle Heaton NEUT # 1.9 103/ul Normal 1.4-6.5 [facility] Comment on above: Performed By: #### T 7, LIPA, TSH, AMADOU, CMP #### [facility] [address] [place] [address] Dr. Krystle Heaton Neutrophils/100 WBC (Bld) 51.8 % Normal 43.0-75.0 [facility] Comment on above: Performed By: #### T 7, LIPA, TSH, AMADOU, CMP #### [facility] [address] [place] [address] Dr. Krystle Heaton Platelet mean volume (Bld) [Entitic vol] 10.8 fL Normal 9.5-13.5 [facility] Comment on above: Performed By: #### T 7, LIPA, TSH, AMADOU, CMP #### [facility] [address] [place] [address] Dr. Krystle Heaton PLT 184 103/ul Normal 150-450 [facility] Comment on above: Performed By: #### T 7, LIPA, TSH, AMADOU, CMP #### [facility] [address] [place] [address] Dr. Krystle Heaton RBC 3.70 106/ul Critically low 4.70-6.10 [facility] Comment on above: Performed By: #### T 7, LIPA, TSH, AMADOU, CMP #### [facility] [address] [place] [address] Dr. Krystle Heaton WBC 3.6 103/ul Critically low 4.0-11.0 [facility] Comment on above: Performed By: #### T 7, LIPA, TSH, AMADOU, CMP #### [facility] [address] [place] [address] Dr. Krystle Heaton FERRITINon 03-30-2021 Ferritin [Mass/Vol] ng/mL Critically high 17.9-464.0 [facility] Comment on above: Performed By: #### F ERR #### [facility] [address] [place] [address] Dr. Krystle Heaton FREE T4on 03-30-2021 Free T4 [Mass/Vol] 0.83 ng/dL Normal 0.78-2.19 The [facility] Comment on above: Performed By: #### F ERR #### [facility] [address] [place] [address] Dr. Krystle Heaton IRON AND TIBCon 03-30-2021 % SATURATION 78.5 % Normal [facility] Comment on above: Performed By: #### F ERR #### [facility] [address] [place] [address] Dr. Krystle Heaton Iron [Mass/Vol] 230.0 ug/dL Critically high 49.0-181.0 [facility] Comment on above: Performed By: #### F ERR #### [facility] [address] [place] [address] Dr. Krystle Heaton TIBC DIRECT 293.0 ug/dL Normal 261.0-497.0 [facility] Comment on above: Performed By: #### F ERR #### [facility] [address] [place] [address] Dr. Krystle Heaton PROF 14(COMP METB)on 021 Albumin [Mass/Vol] 3.8 g/dL Normal 3.5-5.0 [facility] Comment on above: Performed By: #### T 7, LIPA, TSH, AMADOU, CMP #### [facility] [address] [place] [address] Dr. Krystle Heaton Albumin/Globulin [Mass ratio] 1.0 {ratio} Normal [facility] Comment on above: Performed By: #### T 7, LIPA, TSH, AMADOU, CMP #### [facility] [address] [place] [address] Dr. Krystle Heaton ALP [Catalytic activity/Vol] 90 U/L Normal 38-126 [facility] Comment on above: Performed By: #### T 7, LIPA, TSH, AMADOU, CMP #### [facility] [address] [place] [address] Dr. Krystle Heaton ALT [Catalytic activity/Vol] 149 U/L Critically high 21-72 [facility] Comment on above: Performed By: #### T 7, LIPA, TSH, AMADOU, CMP #### [facility] [address] [place] [address] Dr. Krystle Heaton Anion gap [Moles/Vol] 16.0 mmol/L Normal [facility] Comment on above: Performed By: #### T 7, LIPA, TSH, AMADOU, CMP #### [facility] [address] [place] [address] Dr. Krystle Heaton AST [Catalytic activity/Vol] 187 U/L Critically high 17-59 [facility] Comment on above: Performed By: #### T 7, LIPA, TSH, AMADOU, CMP #### [facility] [address] [place] [address] Dr. Krystle Heaton Bilirubin [Mass/Vol] 0.6 mg/dL Normal 0.2-1.3 [facility] Comment on above: Performed By: #### T 7, LIPA, TSH, AMADOU, CMP #### [facility] [address] [place] [address] Dr. Krystle Heaton Calcium [Mass/Vol] 9.2 mg/dL Normal 8.4-10.2 The [facility] Comment on above: Performed By: #### T 7, LIPA, TSH, AMADOU, CMP #### [facility] [address] [place] [address] Dr. Krystle Heaton Chloride [Moles/Vol] 100 mmol/L Normal 98-107 [facility] Comment on above: Performed By: #### T 7, LIPA, TSH, AMADOU, CMP #### [facility] [address] [place] [address] Dr. Krystle Heaton CO2 [Moles/Vol] 26.2 mmol/L Normal 22.0-30.0 [facility] Comment on above: Performed By: #### T 7, LIPA, TSH, AMADOU, CMP #### [facility] [address] [place] [address] Dr. Krystle Heaton Creatinine [Mass/Vol] 1.07 mg/dL Normal 0.66-1.25 [facility] [facility] Comment on above: Performed By: #### T 7, LIPA, TSH, AMADOU, CMP #### [facility] [address] [place] [address] Dr. Krystle Heaton EGFR-AF KAZAKH >60 Normal >=60 [facility] Comment on above: Performed By: #### T 7, LIPA, TSH, AMADOU, CMP #### [facility] [address] [place] [address] Dr. Krystle Heaton EGFR-NON AF KAZAKH >60 Normal >=60 [facility] Comment on above: Performed By: #### T 7, LIPA, TSH, AMADOU, CMP #### [facility] [address] [place] [address] Dr. Krystle Heaton Globulin (S) [Mass/Vol] 3.8 g/dL Normal [facility] Comment on above: Performed By: #### T 7, LIPA, TSH, AMADOU, CMP #### [facility] [address] [place] [address] Dr. Krystle Heaton Glucose [Mass/Vol] 110 mg/dL Critically high 74-106 [facility] Comment on above: Performed By: #### T 7, LIPA, TSH, AMADOU, CMP #### [facility] [address] [place] [address] Dr. Krystle Heaton Potassium [Moles/Vol] 4.2 mmol/L Normal 3.4-5.0 [facility] Comment on above: Performed By: #### T 7, LIPA, TSH, AMADOU, CMP #### [facility] [address] [place] [address] Dr. Krystle Heaton Protein [Mass/Vol] 7.6 g/dL Normal 6.1-8.2 [facility] Comment on above: Performed By: #### T 7, LIPA, TSH, AMADOU, CMP #### [facility] [address] [place] [address] Dr. Krystle Heaton Sodium [Moles/Vol] 138 mmol/L Normal 137-145 [facility] Comment on above: Performed By: #### T 7, LIPA, TSH, AMADOU, CMP #### [facility] [address] [place] [address] Dr. Krystle Heaton Urea nitrogen [Mass/Vol] 9.0 mg/dL Normal 9.0-20.0 [facility] Comment on above: Performed By: #### T 7, LIPA, TSH, AMADOU, CMP #### [facility] [address] [place] [address] Dr. Krystle Heaton Urea nitrogen/Creatinine [Mass ratio] 8.4 mg/mg Normal [facility] Comment on above: Performed By: #### T 7, LIPA, TSH, AMADOU, CMP #### [facility] [address] [place] [address] Dr. Krystle Heaton TSHon 03-30-2021 TSH 1.030 uIU/mL Normal 0.470-4.680 [facility] Comment on above: Performed By: #### T 7, LIPA, TSH, AMADOU, CMP #### [facility] [address] [place] [address] Dr. Krystle Heaton TSH RANGE SEE BELOW Normal [facility] Comment on above: Result Comment: <0.3 4 UIU/ml HYPERTHYROID 0.34-5.60 UIU/ml EUTHYROID >5.60 UIU/ml HYPOTHYROID Performed By: #### T 7, LIPA, TSH, AMADOU, CMP #### [facility] [address] [place] [address] Dr. Krystle Heaton CBC AUTO DIFFon 03-22-2021 BASO # 0.0 103/ul Normal 0.0-0.1 [facility] Comment on above: Performed By: #### T 7, LIPA, TSH, AMADOU, CMP #### [facility] [address] [place] [address] Dr. Krystle Heaton Basophils/100 WBC (Bld) 0.6 % Normal 0.2-2.0 [facility] Comment on above: Performed By: #### T 7, LIPA, TSH, AMADOU, CMP #### [facility] [address] [place] [address] Dr. Krystle Heaton EO # 0.1 103/ul Normal 0.0-0.7 [facility] Comment on above: Performed By: #### T 7, LIPA, TSH, AMADOU, CMP #### [facility] [address] [place] [address] Dr. Krystle Heaton Eosinophils/100 WBC (Bld) 2.1 % Normal 0.9-7.0 [facility] Comment on above: Performed By: #### T 7, LIPA, TSH, AMADOU, CMP #### [facility] [address] [place] [address] Dr. Krystle Heaton Erythrocyte distribution width (RBC) [Ratio] 12.7 % Normal 11.0-15.0 [facility] Comment on above: Performed By: #### T 7, LIPA, TSH, AMADOU, CMP #### [facility] [address] [place] [address] Dr. Krystle Heaton Hematocrit (Bld) [Volume fraction] 37.5 % Critically low 42.0-54.0 [facility] Comment on above: Performed By: #### T 7, LIPA, TSH, AMADOU, CMP #### [facility] [address] [place] [address] Dr. Krystle Heaton Hemoglobin (Bld) [Mass/Vol] 13.1 g/dL Critically low 14.0-18.0 [facility] Comment on above: Performed By: #### T 7, LIPA, TSH, AMADOU, CMP #### [facility] [address] [place] [address] Dr. Krystle Heaton IG # 0.01 10e3/ul Normal 0.00-0.03 [facility] Comment on above: Performed By: #### T 7, LIPA, TSH, AMADOU, CMP #### [facility] [address] [place] [address] Dr. Krystle Heaton IG % 0.3 % Normal 0.0-0.5 [facility] Comment on above: Performed By: #### T 7, LIPA, TSH, AMADOU, CMP #### [facility] [address] [place] [address] Dr. Krystle Heaton LYMPH # 1.2 103/ul Normal 1.2-3.8 [facility] Comment on above: Performed By: #### T 7, LIPA, TSH, AMADOU, CMP #### [facility] [address] [place] [address] Dr. Krystle Heaton Lymphocytes/100 WBC (Bld) 35.7 % Normal 20.5-60.0 [facility] Comment on above: Performed By: #### T 7, LIPA, TSH, AMADOU, CMP #### [facility] [address] [place] [address] Dr. Krystle Heaton MANUAL DIFF REQ NO Normal [facility] Comment on above: Performed By: #### T 7, LIPA, TSH, AMADOU, CMP #### [facility] [address] [place] [address] Dr. Krystle Heaton MCH (RBC) [Entitic mass] 37.0 pg Critically high 25.9-34.0 [facility] Comment on above: Performed By: #### T 7, LIPA, TSH, AMADOU, CMP #### [facility] [address] [place] [address] Dr. Krystle Heaton MCHC (RBC) [Mass/Vol] 34.9 g/dL Normal 29.9-35.2 [facility] Comment on above: Performed By: #### T 7, LIPA, TSH, AMADOU, CMP #### [facility] [address] [place] [address] Dr. Krystle Heaton MCV (RBC) [Entitic vol] 105.9 fL Critically high 80.0-94.0 [facility] Comment on above: Performed By: #### T 7, LIPA, TSH, AMADOU, CMP #### [facility] [address] [place] [address] Dr. Krystle Heaton MONO # 0.2 103/ul Critically low 0.3-0.8 [facility] Comment on above: Performed By: #### T 7, LIPA, TSH, AMADOU, CMP #### [facility] [address] [place] [address] Dr. Krystle Heaton Monocytes/100 WBC (Bld) 6.8 % Normal 1.7-12.0 [facility] Comment on above: Performed By: #### T 7, LIPA, TSH, AMADOU, CMP #### [facility] [address] [place] [address] Dr. Krystle Heaton NEUT # 1.8 103/ul Normal 1.4-6.5 [facility] Comment on above: Performed By: #### T 7, LIPA, TSH, AMADOU, CMP #### [facility] [address] [place] [address] Dr. Krystle Heaton Neutrophils/100 WBC (Bld) 54.5 % Normal 43.0-75.0 [facility] Comment on above: Performed By: #### T 7, LIPA, TSH, AMADOU, CMP #### [facility] [address] [place] [address] Dr. Krystle Heaton Platelet mean volume (Bld) [Entitic vol] 10.4 fL Normal 9.5-13.5 [facility] Comment on above: Performed By: #### T 7, LIPA, TSH, AMADOU, CMP #### [facility] [address] [place] [address] Dr. Krystle Heaton PLT 126 103/ul Critically low 150-450 [facility] Comment on above: Performed By: #### T 7, LIPA, TSH, AMADOU, CMP #### [facility] [address] [place] [address] Dr. Krystle Heaton RBC 3.54 106/ul Critically low 4.70-6.10 [facility] Comment on above: Performed By: #### T 7, LIPA, TSH, AMADOU, CMP #### [facility] [address] [place] [address] Dr. Krystle Heaton WBC 3.4 103/ul Critically low 4.0-11.0 [facility] Comment on above: Performed By: #### T 7, LIPA, TSH, AMADOU, CMP #### [facility] [address] [place] [address] Dr. Krystle Heaton FERRITINon 03-22-2021 Ferritin [Mass/Vol] ng/mL Critically high 17.9-464.0 [facility] Comment on above: Performed By: #### T 7, LIPA, TSH, AMADOU, CMP #### [facility] [address] [place] [address] Dr. Krystle Heaton FREE T4on 03-22-2021 Free T4 [Mass/Vol] 0.78 ng/dL Normal 0.78-2.19 The [facility] Comment on above: Performed By: #### T 7, LIPA, TSH, AMADOU, CMP #### [facility] [address] [place] [address] Dr. Krystle Heaton IRON AND TIBCon 03-22-2021 % SATURATION 106.0 % Normal [facility] Comment on above: Performed By: #### T 7, LIPA, TSH, AMADOU, CMP #### [facility] [address] [place] [address] Dr. Krystle Heaton Iron [Mass/Vol] 233.0 ug/dL Critically high 49.0-181.0 [facility] Comment on above: Performed By: #### T 7, LIPA, TSH, AMADOU, CMP #### [facility] [address] [place] [address] Dr. Krystle Heaton TIBC DIRECT 220.0 ug/dL Critically low 261.0-497.0 [facility] Comment on above: Performed By: #### T 7, LIPA, TSH, AMADOU, CMP #### [facility] [address] [place] [address] Dr. Krystle Heaton PROF 14(COMP METB)on 021 Albumin [Mass/Vol] 3.5 g/dL Normal 3.5-5.0 [facility] Comment on above: Performed By: #### T 7, LIPA, TSH, AMADOU, CMP #### [facility] [address] [place] [address] Dr. Krystle Heaton Albumin/Globulin [Mass ratio] 1.0 {ratio} Normal [facility] Comment on above: Performed By: #### T 7, LIPA, TSH, AMADOU, CMP #### [facility] [address] [place] [address] Dr. Krystle Heaton ALP [Catalytic activity/Vol] 77 U/L Normal 38-126 [facility] Comment on above: Performed By: #### T 7, LIPA, TSH, AMADOU, CMP #### [facility] [address] [place] [address] Dr. Krystle Heaton ALT [Catalytic activity/Vol] 95 U/L Critically high 21-72 [facility] Comment on above: Performed By: #### T 7, LIPA, TSH, AMADOU, CMP #### [facility] [address] [place] [address] Dr. Krystle Heaton Anion gap [Moles/Vol] 17.3 mmol/L Normal [facility] Comment on above: Performed By: #### T 7, LIPA, TSH, AMADOU, CMP #### [facility] [address] [place] [address] Dr. Krystle Heaton AST [Catalytic activity/Vol] 161 U/L Critically high 17-59 [facility] Comment on above: Performed By: #### T 7, LIPA, TSH, AMADOU, CMP #### [facility] [address] [place] [address] Dr. Krystle Heaton Bilirubin [Mass/Vol] 0.8 mg/dL Normal 0.2-1.3 [facility] Comment on above: Performed By: #### T 7, LIPA, TSH, AMADOU, CMP #### [facility] [address] [place] [address] Dr. Krystle Heaton Calcium [Mass/Vol] 8.5 mg/dL Normal 8.4-10.2 The [facility] Comment on above: Performed By: #### T 7, LIPA, TSH, AMADOU, CMP #### [facility] [address] [place] [address] Dr. Krystle Heaton Chloride [Moles/Vol] 101 mmol/L Normal 98-107 [facility] Comment on above: Performed By: #### T 7, LIPA, TSH, AMADOU, CMP #### [facility] [address] [place] [address] Dr. Krystle Heaton CO2 [Moles/Vol] 22.6 mmol/L Normal 22.0-30.0 [facility] Comment on above: Performed By: #### T 7, LIPA, TSH, AMADOU, CMP #### [facility] [address] [place] [address] Dr. Krystle Heaton Creatinine [Mass/Vol] 0.98 mg/dL Normal 0.66-1.25 [facility] Comment on above: Performed By: #### T 7, LIPA, TSH, AMADOU, CMP #### [facility] [address] [place] [address] Dr. Krystle Heaton EGFR-AF KAZAKH >60 Normal >=60 [facility] Comment on above: Performed By: #### T 7, LIPA, TSH, AMADOU, CMP #### [facility] [address] [place] [address] Dr. Krystle Heaton EGFR-NON AF KAZAKH >60 Normal >=60 [facility] Comment on above: Performed By: #### T 7, LIPA, TSH, AMADOU, CMP #### [facility] [address] [place] [address] Dr. Krystle Heaton Globulin (S) [Mass/Vol] 3.4 g/dL Normal [facility] Comment on above: Performed By: #### T 7, LIPA, TSH, AMADOU, CMP #### [facility] [address] [place] [address] Dr. Krystle Heaton Glucose [Mass/Vol] 103 mg/dL Normal 74-106 The [facility] Comment on above: Performed By: #### T 7, LIPA, TSH, AMADOU, CMP #### [facility] [address] [place] [address] Dr. Krystle Heaton Potassium [Moles/Vol] 3.9 mmol/L Normal 3.4-5.0 [facility] Comment on above: Performed By: #### T 7, LIPA, TSH, AMADOU, CMP #### [facility] [address] [place] [address] Dr. Krystle Heaton Protein [Mass/Vol] 6.9 g/dL Normal 6.1-8.2 [facility] Comment on above: Performed By: #### T 7, LIPA, TSH, AMADOU, CMP #### [facility] [address] [place] [address] Dr. Krystle Heaton Sodium [Moles/Vol] 137 mmol/L Normal 137-145 The [facility] Comment on above: Performed By: #### T 7, LIPA, TSH, AMADOU, CMP #### [facility] [address] [place] [address] Dr. Krystle Heaton Urea nitrogen [Mass/Vol] 8.0 mg/dL Critically low 9.0-20.0 [facility] Comment on above: Performed By: #### T 7, LIPA, TSH, AMADOU, CMP #### [facility] [address] [place] [address] Dr. Krystle Heaton Urea nitrogen/Creatinine [Mass ratio] 8.2 mg/mg Normal [facility] Comment on above: Performed By: #### T 7, LIPA, TSH, AMADOU, CMP #### [facility] [address] [place] [address] Dr. Krystle Heaton TSHon 03-22-2021 TSH 2.059 uIU/mL Normal 0.470-4.680 [facility] Comment on above: Performed By: #### T 7, LIPA, TSH, AMADOU, CMP #### [facility] [address] [place] [address] Dr. Krystle Heaton TSH RANGE SEE BELOW Normal [facility] Comment on above: Result Comment: <0.3 4 UIU/ml HYPERTHYROID 0.34-5.60 UIU/ml EUTHYROID >5.60 UIU/ml HYPOTHYROID Performed By: #### T 7, LIPA, TSH, AMADOU, CMP #### [facility] [address] [place] [address] Dr. Krystle Heaton CBC AUTO DIFFon 03-17-2021 BASO # 0.0 103/ul Normal 0.0-0.1 [facility] Comment on above: Performed By: #### T 7, LIPA, TSH, AMADOU, CMP #### [facility] [address] [place] [address] Dr. Krystle Heaton Basophils/100 WBC (Bld) 0.3 % Normal 0.2-2.0 [facility] Comment on above: Performed By: #### T 7, LIPA, TSH, AMADOU, CMP #### [facility] [address] [place] [address] Dr. Krystle Heaton EO # 0.1 103/ul Normal 0.0-0.7 [facility] Comment on above: Performed By: #### T 7, LIPA, TSH, AMADOU, CMP #### [facility] [address] [place] [address] Dr. Krystle Heaton Eosinophils/100 WBC (Bld) 1.8 % Normal 0.9-7.0 [facility] Comment on above: Performed By: #### T 7, LIPA, TSH, AMADOU, CMP #### [facility] [address] [place] [address] Dr. Krystle Heaton Erythrocyte distribution width (RBC) [Ratio] 12.5 % Normal 11.0-15.0 [facility] Comment on above: Performed By: #### T 7, LIPA, TSH, AMADOU, CMP #### [facility] [address] [place] [address] Dr. Krystle Heaton Hematocrit (Bld) [Volume fraction] 40.9 % Critically low 42.0-54.0 [facility] Comment on above: Performed By: #### T 7, LIPA, TSH, AMADOU, CMP #### [facility] [address] [place] [address] Dr. Krystle Heaton Hemoglobin (Bld) [Mass/Vol] 14.1 g/dL Normal 14.0-18.0 [facility] Comment on above: Performed By: #### T 7, LIPA, TSH, AMADOU, CMP #### [facility] [address] [place] [address] Dr. Krystle Heaton IG # 0.01 10e3/ul Normal 0.00-0.03 [facility] Comment on above: Performed By: #### T 7, LIPA, TSH, AMADOU, CMP #### [facility] [address] [place] [address] Dr. Krystle Heaton IG % 0.3 % Normal 0.0-0.5 [facility] Comment on above: Performed By: #### T 7, LIPA, TSH, AMADOU, CMP #### [facility] [address] [place] [address] Dr. Krystle Heaton LYMPH # 1.3 103/ul Normal 1.2-3.8 [facility] Comment on above: Performed By: #### T 7, LIPA, TSH, AMADOU, CMP #### [facility] [address] [place] [address] Dr. Krystle Heaton Lymphocytes/100 WBC (Bld) 41.1 % Normal 20.5-60.0 [facility] Comment on above: Performed By: #### T 7, LIPA, TSH, AMADOU, CMP #### [facility] [address] [place] [address] Dr. Krystle Heaton MANUAL DIFF REQ NO Normal [facility] Comment on above: Performed By: #### T 7, LIPA, TSH, AMADOU, CMP #### [facility] [address] [place] [address] Dr. Krystle Heaton MCH (RBC) [Entitic mass] 36.3 pg Critically high 25.9-34.0 [facility] Comment on above: Performed By: #### T 7, LIPA, TSH, AMADOU, CMP #### [facility] [address] [place] [address] Dr. Krystle Heaton MCHC (RBC) [Mass/Vol] 34.5 g/dL Normal 29.9-35.2 [facility] Comment on above: Performed By: #### T 7, LIPA, TSH, AMADOU, CMP #### [facility] [address] [place] [address] Dr. Krystle Heaton MCV (RBC) [Entitic vol] 105.4 fL Critically high 80.0-94.0 [facility] Comment on above: Performed By: #### T 7, LIPA, TSH, AMADOU, CMP #### [facility] [address] [place] [address] Dr. Krystle Heaton MONO # 0.3 103/ul Normal 0.3-0.8 [facility] Comment on above: Performed By: #### T 7, LIPA, TSH, AMADOU, CMP #### [facility] [address] [place] [address] Dr. Krystle Heaton Monocytes/100 WBC (Bld) 8.0 % Normal 1.7-12.0 [facility] Comment on above: Performed By: #### T 7, LIPA, TSH, AMADOU, CMP #### [facility] [address] [place] [address] Dr. Krystle Heaton NEUT # 1.6 103/ul Normal 1.4-6.5 [facility] Comment on above: Performed By: #### T 7, LIPA, TSH, AMADOU, CMP #### [facility] [address] [place] [address] Dr. Krystle Heaton Neutrophils/100 WBC (Bld) 48.5 % Normal 43.0-75.0 [facility] Comment on above: Performed By: #### T 7, LIPA, TSH, AMADOU, CMP #### [facility] [address] [place] [address] Dr. Krystle Heaton Platelet mean volume (Bld) [Entitic vol] 10.6 fL Normal 9.5-13.5 [facility] Comment on above: Performed By: #### T 7, LIPA, TSH, AMADOU, CMP #### [facility] [address] [place] [address] Dr. Krystle Heaton PLT 134 103/ul Critically low 150-450 [facility] Comment on above: Performed By: #### T 7, LIPA, TSH, AMADOU, CMP #### [facility] [address] [place] [address] Dr. Krystle Heaton RBC 3.88 106/ul Critically low 4.70-6.10 [facility] Comment on above: Result Comment: Macr ocytosis 1+ Stomatocytes 1+ Performed By: #### T 7, LIPA, TSH, AMADOU, CMP #### [facility] [address] [place] [address] Dr. Krystle Heaton WBC 3.3 103/ul Critically low 4.0-11.0 [facility] Comment on above: Performed By: #### T 7, LIPA, TSH, AMADOU, CMP #### [facility] [address] [place] [address] Dr. Krystle Heaton FERRITINon 03-17-2021 Ferritin [Mass/Vol] ng/mL Critically high 17.9-464.0 [facility] Comment on above: Performed By: #### T 7, LIPA, TSH, AMADOU, CMP #### [facility] [address] [place] [address] Dr. Krystle Heaton FREE T4on 03-17-2021 Free T4 [Mass/Vol] 0.82 ng/dL Normal 0.78-2.19 [facility] Comment on above: Performed By: #### T 7, LIPA, TSH, AMADOU, CMP #### [facility] [address] [place] [address] Dr. Krystle Heaton IRON AND TIBCon 03-17-2021 % SATURATION 100.8 % Normal [facility] Comment on above: Performed By: #### T 7, LIPA, TSH, AMADOU, CMP #### [facility] [address] [place] [address] Dr. Krystle Heaton Iron [Mass/Vol] 249.0 ug/dL Critically high 49.0-181.0 [facility] Comment on above: Performed By: #### T 7, LIPA, TSH, AMADOU, CMP #### [facility] [address] [place] [address] Dr. Krystle Heaton TIBC DIRECT 247.0 ug/dL Critically low 261.0-497.0 [facility] Comment on above: Performed By: #### T 7, LIPA, TSH, AMADOU, CMP #### [facility] [address] [place] [address] Dr. Krystle Heaton PROF 14(COMP METB)on 021 Albumin [Mass/Vol] 3.7 g/dL Normal 3.5-5.0 [facility] Comment on above: Performed By: #### T 7, LIPA, TSH, AMADOU, CMP #### [facility] [address] [address] [address] Krystle Heaton Albumin/Globulin [Mass ratio] 1.1 {ratio} Normal [facility] Comment on above: Performed By: #### T 7, LIPA, TSH, AMADOU, CMP #### [facility] [address] [address] [address] Krystle Heaton ALP [Catalytic activity/Vol] 78 U/L Normal 38-126 [facility] Comment on above: Performed By: #### T 7, LIPA, TSH, AMADOU, CMP #### [facility] [address] [place] [address] Dr. Krystle Heaton ALT [Catalytic activity/Vol] 100 U/L Critically high 21-72 [facility] Comment on above: Performed By: #### T 7, LIPA, TSH, AMADOU, CMP #### [facility] [address] [address] [address] Krystle Heaton Anion gap [Moles/Vol] 14.4 mmol/L Normal [facility] Comment on above: Performed By: #### T 7, LIPA, TSH, AMADOU, CMP #### [facility] [address] [place] [address] Dr. Krystle Heaton AST [Catalytic activity/Vol] 158 U/L Critically high 17-59 [facility] Comment on above: Performed By: #### T 7, LIPA, TSH, AMADOU, CMP #### [facility] [address] [address] [address] Krystle Heaton Bilirubin [Mass/Vol] 0.6 mg/dL Normal 0.2-1.3 [facility] Comment on above: Performed By: #### T 7, LIPA, TSH, AMADOU, CMP #### [facility] [address] [place] [address] Dr. Krystle Heaton Calcium [Mass/Vol] 8.9 mg/dL Normal 8.4-10.2 [facility] Comment on above: Performed By: #### T 7, LIPA, TSH, AMADOU, CMP #### [facility] [address] [address] [address] Krystle Heaton Chloride [Moles/Vol] 100 mmol/L Normal 98-107 [facility] Comment on above: Performed By: #### T 7, LIPA, TSH, AMADOU, CMP #### [facility] [address] [address] [address] Krystle Heaton CO2 [Moles/Vol] 27.3 mmol/L Normal 22.0-30.0 [facility] Comment on above: Performed By: #### T 7, LIPA, TSH, AMADOU, CMP #### [facility] [address] [place] [address] Dr. Krystle Heaton Creatinine [Mass/Vol] 1.08 mg/dL Normal 0.66-1.25 [facility] Comment on above: Performed By: #### T 7, LIPA, TSH, AMADOU, CMP #### [facility] [address] [place] [address] Dr. Krystle Heaton EGFR-AF KAZAKH >60 Normal >=60 [facility] Comment on above: Performed By: #### T 7, LIPA, TSH, AMADOU, CMP #### [facility] [address] [place] [address] Dr. Krystle Heaton EGFR-NON AF KAZAKH >60 Normal >=60 [facility] Comment on above: Performed By: #### T 7, LIPA, TSH, AMADOU, CMP #### [facility] [address] [place] [address] Dr. Krystle Heaton Globulin (S) [Mass/Vol] 3.5 g/dL Normal [facility] Comment on above: Performed By: #### T 7, LIPA, TSH, AMADOU, CMP #### [facility] [address] [place] [address] Dr. Krystle Heaton Glucose [Mass/Vol] 115 mg/dL Critically high 74-106 [facility] Comment on above: Performed By: #### T 7, LIPA, TSH, AMADOU, CMP #### [facility] [address] [address] [address] Krystle Heaton Potassium [Moles/Vol] 3.7 mmol/L Normal 3.4-5.0 [facility] Comment on above: Performed By: #### T 7, LIPA, TSH, AMADOU, CMP #### [facility] [address] [place] [address] Dr. Krystle Heaton Protein [Mass/Vol] 7.2 g/dL Normal 6.1-8.2 The [facility] Comment on above: Performed By: #### T 7, LIPA, TSH, AMADOU, CMP #### [facility] [address] [place] [address] Dr. Krystle Heaton Sodium [Moles/Vol] 138 mmol/L Normal 137-145 The [facility] Comment on above: Performed By: #### T 7, LIPA, TSH, AMADOU, CMP #### [facility] [address] [place] [address] Dr. Krystle Heaton Urea nitrogen [Mass/Vol] 10.0 mg/dL Normal 9.0-20.0 [facility] Comment on above: Performed By: #### T 7, LIPA, TSH, AMADOU, CMP #### [facility] [address] [place] [address] Dr. Krystle Heaton Urea nitrogen/Creatinine [Mass ratio] 9.3 mg/mg Normal [facility] Comment on above: Performed By: #### T 7, LIPA, TSH, AMADOU, CMP #### [facility] [address] [place] [address] Dr. Krystle Heaton TSHon 03-17-2021 TSH 1.904 uIU/mL Normal 0.470-4.680 [facility] Comment on above: Performed By: #### T 7, LIPA, TSH, AMADOU, CMP #### [facility] [address] [place] [address] Dr. Krystle Heaton TSH RANGE SEE BELOW Normal [facility] Comment on above: Result Comment: <0.3 4 UIU/ml HYPERTHYROID 0.34-5.60 UIU/ml EUTHYROID >5.60 UIU/ml HYPOTHYROID Performed By: #### T 7, LIPA, TSH, AMADOU, CMP #### [facility] [address] [place] [address] Dr. Krystle Heaton CBC AUTO DIFFon 03-08-2021 BASO # 0.0 103/ul Normal 0.0-0.1 [facility] Comment on above: Performed By: #### T 7, LIPA, TSH, AMADOU, CMP #### [facility] [address] [place] [address] Dr. Krystle Heaton Basophils/100 WBC (Bld) 0.8 % Normal 0.2-2.0 [facility] Comment on above: Performed By: #### T 7, LIPA, TSH, AMADOU, CMP #### [facility] [address] [place] [address] Dr. Krystle Heaton EO # 0.1 103/ul Normal 0.0-0.7 [facility] Comment on above: Performed By: #### T 7, LIPA, TSH, AMADOU, CMP #### [facility] [address] [place] [address] Dr. Krystle Heaton Eosinophils/100 WBC (Bld) 1.5 % Normal 0.9-7.0 [facility] Comment on above: Performed By: #### T 7, LIPA, TSH, AMADOU, CMP #### [facility] [address] [place] [address] Dr. Krystle Heaton Erythrocyte distribution width (RBC) [Ratio] 12.2 % Normal 11.0-15.0 [facility] Comment on above: Performed By: #### T 7, LIPA, TSH, AMADOU, CMP #### [facility] [address] [place] [address] Dr. Krystle Heaton Hematocrit (Bld) [Volume fraction] 45.5 % Normal 42.0-54.0 [facility] Comment on above: Performed By: #### T 7, LIPA, TSH, AMADOU, CMP #### [facility] [address] [place] [address] Dr. Krystle Heaton Hemoglobin (Bld) [Mass/Vol] 15.9 g/dL Normal 14.0-18.0 [facility] Comment on above: Performed By: #### T 7, LIPA, TSH, AMADOU, CMP #### [facility] [address] [place] [address] Dr. Krystle Heaton IG # 0.01 10e3/ul Normal 0.00-0.03 [facility] Comment on above: Performed By: #### T 7, LIPA, TSH, AMADOU, CMP #### [facility] [address] [place] [address] Dr. Krystle Heaton IG % 0.2 % Normal 0.0-0.5 [facility] Comment on above: Performed By: #### T 7, LIPA, TSH, AMADOU, CMP #### [facility] [address] [place] [address] Dr. Krystle Heaton LYMPH # 1.8 103/ul Normal 1.2-3.8 [facility] Comment on above: Performed By: #### T 7, LIPA, TSH, AMADOU, CMP #### [facility] [address] [place] [address] Dr. Krystle Heaton Lymphocytes/100 WBC (Bld) 37.8 % Normal 20.5-60.0 [facility] Comment on above: Performed By: #### T 7, LIPA, TSH, AMADOU, CMP #### [facility] [address] [place] [address] Dr. Krystle Heaton MANUAL DIFF REQ NO Normal [facility] Comment on above: Performed By: #### T 7, LIPA, TSH, AMADOU, CMP #### [facility] [address] [place] [address] Dr. Krystle Heaton MCH (RBC) [Entitic mass] 36.4 pg Critically high 25.9-34.0 [facility] Comment on above: Performed By: #### T 7, LIPA, TSH, AMADOU, CMP #### [facility] [address] [place] [address] Dr. Krystle Heaton MCHC (RBC) [Mass/Vol] 34.9 g/dL Normal 29.9-35.2 [facility] Comment on above: Performed By: #### T 7, LIPA, TSH, AMADOU, CMP #### [facility] [address] [place] [address] Dr. Krystle Heaton MCV (RBC) [Entitic vol] 104.1 fL Critically high 80.0-94.0 [facility] Comment on above: Performed By: #### T 7, LIPA, TSH, AMADOU, CMP #### [facility] [address] [place] [address] Dr. Krystle Heaton MONO # 0.4 103/ul Normal 0.3-0.8 [facility] Comment on above: Performed By: #### T 7, LIPA, TSH, AMADOU, CMP #### [facility] [address] [place] [address] Dr. Krystle Heaton Monocytes/100 WBC (Bld) 8.3 % Normal 1.7-12.0 [facility] Comment on above: Performed By: #### T 7, LIPA, TSH, AMADOU, CMP #### [facility] [address] [place] [address] Dr. Krystle Heaton NEUT # 2.4 103/ul Normal 1.4-6.5 [facility] Comment on above: Performed By: #### T 7, LIPA, TSH, AMADOU, CMP #### [facility] [address] [place] [address] Dr. Krystle Heaton Neutrophils/100 WBC (Bld) 51.4 % Normal 43.0-75.0 [facility] Comment on above: Performed By: #### T 7, LIPA, TSH, AMADOU, CMP #### [facility] [address] [place] [address] Dr. Krystle Heaton Platelet mean volume (Bld) [Entitic vol] 10.8 fL Normal 9.5-13.5 [facility] Comment on above: Performed By: #### T 7, LIPA, TSH, AMADOU, CMP #### [facility] [address] [place] [address] Dr. Krystle Heaton PLT 175 103/ul Normal 150-450 [facility] Comment on above: Performed By: #### T 7, LIPA, TSH, AMADOU, CMP #### [facility] [address] [place] [address] Dr. Krystle Heaton RBC 4.37 106/ul Critically low 4.70-6.10 [facility] Comment on above: Performed By: #### T 7, LIPA, TSH, AMADOU, CMP #### [facility] [address] [place] [address] Dr. Krystle Heaton WBC 4.7 103/ul Normal 4.0-11.0 [facility] Comment on above: Performed By: #### T 7, LIPA, TSH, AMADOU, CMP #### [facility] [address] [place] [address] Dr. Krystle Heaton FERRITINon 03-08-2021 Ferritin [Mass/Vol] ng/mL Critically high 17.9-464.0 [facility] Comment on above: Performed By: #### T 7, LIPA, TSH, AMADOU, CMP #### [facility] [address] [place] [address] Dr. Krystle Heaton FREE T4on 03-08-2021 Free T4 [Mass/Vol] 0.73 ng/dL Critically low 0.78-2.19 Th [facility] Comment on above: Performed By: #### T 7, LIPA, TSH, AMADOU, CMP #### [facility] [address] [place] [address] Dr. Krystle Heaton IRON AND TIBCon 03-08-2021 % SATURATION 102.2 % Normal [facility] Comment on above: Performed By: #### T 7, LIPA, TSH, AMADOU, CMP #### [facility] [address] [place] [address] Dr. Krystle Heaton Iron [Mass/Vol] 279.0 ug/dL Critically high 49.0-181.0 [facility] Comment on above: Performed By: #### T 7, LIPA, TSH, AMADOU, CMP #### [facility] [address] [place] [address] Dr. Krystle Heaton TIBC DIRECT 273.0 ug/dL Normal 261.0-497.0 [facility] Comment on above: Performed By: #### T 7, LIPA, TSH, AMADOU, CMP #### [facility] [address] [address] [address] Krystle Heaton PROF 14(COMP METB)on 021 Albumin [Mass/Vol] 3.6 g/dL Normal 3.5-5.0 [facility] Comment on above: Performed By: #### T 7, LIPA, TSH, AMADOU, CMP #### [facility] [address] [place] [address] Dr. Krystle Heaton Albumin/Globulin [Mass ratio] 1.0 {ratio} Normal [facility] Comment on above: Performed By: #### T 7, LIPA, TSH, AMADOU, CMP #### [facility] [address] [place] [address] Dr. Krystle Heaton ALP [Catalytic activity/Vol] 68 U/L Normal 38-126 [facility] Comment on above: Performed By: #### T 7, LIPA, TSH, AMADOU, CMP #### [facility] [address] [address] [address] Krystle Heaton ALT [Catalytic activity/Vol] 58 U/L Normal 21-72 [facility] Comment on above: Performed By: #### T 7, LIPA, TSH, AMADOU, CMP #### [facility] [address] [address] [address] Krystle Heaton Anion gap [Moles/Vol] 15.5 mmol/L Normal [facility] Comment on above: Performed By: #### T 7, LIPA, TSH, AMADOU, CMP #### [facility] [address] [address] [address] Krystle Heaton AST [Catalytic activity/Vol] 56 U/L Normal 17-59 [facility] Comment on above: Performed By: #### T 7, LIPA, TSH, AMADOU, CMP #### [facility] [address] [address] [address] Krystle Heaton Bilirubin [Mass/Vol] 0.7 mg/dL Normal 0.2-1.3 [facility] Comment on above: Performed By: #### T 7, LIPA, TSH, AMADOU, CMP #### [facility] [address] [place] [address] Dr. Krystle Heaton Calcium [Mass/Vol] 8.9 mg/dL Normal 8.4-10.2 The [facility] Comment on above: Performed By: #### T 7, LIPA, TSH, AMADOU, CMP #### [facility] [address] [place] [address] Dr. Krystle Heaton Chloride [Moles/Vol] 100 mmol/L Normal 98-107 [facility] Comment on above: Performed By: #### T 7, LIPA, TSH, AMADOU, CMP #### [facility] [address] [place] [address] Dr. Krystle Heaton CO2 [Moles/Vol] 26.6 mmol/L Normal 22.0-30.0 The [facility] Comment on above: Performed By: #### T 7, LIPA, TSH, AMADOU, CMP #### [facility] [address] [place] [address] Dr. Krystle Heaton Creatinine [Mass/Vol] 1.12 mg/dL Normal 0.66-1.25 [facility] Comment on above: Performed By: #### T 7, LIPA, TSH, AMADOU, CMP #### [facility] [address] [place] [address] Dr. Krystle Heaton EGFR-AF KAZAKH >60 Normal >=60 [facility] Comment on above: Performed By: #### T 7, LIPA, TSH, AMADOU, CMP #### [facility] [address] [place] [address] Dr. Krystle Heaton EGFR-NON AF KAZAKH >60 Normal >=60 [facility] Comment on above: Performed By: #### T 7, LIPA, TSH, AMADOU, CMP #### [facility] [address] [place] [address] Dr. Krystle Heaton Globulin (S) [Mass/Vol] 3.7 g/dL Normal [facility] Comment on above: Performed By: #### T 7, LIPA, TSH, AMADOU, CMP #### [facility] [address] [place] [address] Dr. Krystle Heaton Glucose [Mass/Vol] 101 mg/dL Normal 74-106 The [facility] Comment on above: Performed By: #### T 7, LIPA, TSH, AMADOU, CMP #### [facility] [address] [place] [address] Dr. Krystle Heaton Potassium [Moles/Vol] 4.1 mmol/L Normal 3.4-5.0 [facility] Comment on above: Performed By: #### T 7, LIPA, TSH, AMADOU, CMP #### [facility] [address] [place] [address] Dr. Krystle Heaton Protein [Mass/Vol] 7.3 g/dL Normal 6.1-8.2 The [facility] Comment on above: Performed By: #### T 7, LIPA, TSH, AMADOU, CMP #### [facility] [address] [place] [address] Dr. Krystle Heaton Sodium [Moles/Vol] 138 mmol/L Normal 137-145 The [facility] Comment on above: Performed By: #### T 7, LIPA, TSH, AMADOU, CMP #### [facility] [address] [place] [address] Dr. Krystle Heaton Urea nitrogen [Mass/Vol] 17.0 mg/dL Normal 9.0-20.0 [facility] Comment on above: Performed By: #### T 7, LIPA, TSH, AMADOU, CMP #### [facility] [address] [place] [address] Dr. Krystle Heaton Urea nitrogen/Creatinine [Mass ratio] 15.2 mg/mg Normal [facility] Comment on above: Performed By: #### T 7, LIPA, TSH, AMADOU, CMP #### [facility] [address] [place] [address] Dr. Krystle Heaton TSHon 03-08-2021 TSH 1.781 uIU/mL Normal 0.470-4.680 [facility] Comment on above: Performed By: #### T 7, LIPA, TSH, AMADOU, CMP #### [facility] [address] [place] [address] Dr. Krystle Heaton TSH RANGE SEE BELOW Normal [facility] Comment on above: Result Comment: <0.3 4 UIU/ml HYPERTHYROID 0.34-5.60 UIU/ml EUTHYROID >5.60 UIU/ml HYPOTHYROID Performed By: #### T 7, LIPA, TSH, AMADOU, CMP #### [facility] [address] [place] [address] Dr. Krystle Heaton FERRITINon 02-03-2021 Ferritin [Mass/Vol] ng/mL Critically high 17.9-464.0 [facility] Comment on above: Performed By: #### C BC #### [facility] [address] [place] [address] Billy Devlin Cov[facility]-19 PCR ([facility]on SARS-CoV-2 (COVID-19) RNA JIMBO+probe Ql (Unsp spec) Not detected Normal NOT DETECTED [facility] Comment on above: Result Comment: This test is not yet approved or cleared by the [place] FDA. When there are no FDA-approved or cleared tests available, and other criteria are met, FDA can make tests available under an emergency access mechanism called an Emergency Use Authorization (EUA). The EUA for this test is supported by the [place] of Health and Human Service's (HHS's) declaration [...] T 7, LIPA, TSH, AMADOU, CMP #### [facility] [address] [place] [address] Dr. Krystle Heaton CBC AUTO DIFFon 01-06-2021 BASO # 0.0 103/ul Normal 0.0-0.1 [facility] Comment on above: Performed By: #### T 7, LIPA, TSH, AMADOU, CMP #### [facility] [address] [place] [address] Dr. Krystle Heaton Basophils/100 WBC (Bld) 1.0 % Normal 0.2-2.0 [facility] Comment on above: Performed By: #### T 7, LIPA, TSH, AMADOU, CMP #### [facility] [address] [place] [address] Dr. Krystle Heaton EO # 0.1 103/ul Normal 0.0-0.7 [facility] Comment on above: Performed By: #### T 7, LIPA, TSH, AMADOU, CMP #### [facility] [address] [place] [address] Dr. Krystle Heaton Eosinophils/100 WBC (Bld) 2.5 % Normal 0.9-7.0 [facility] Comment on above: Performed By: #### T 7, LIPA, TSH, AMADOU, CMP #### [facility] [address] [place] [address] Dr. Krystle Heaton Erythrocyte distribution width (RBC) [Ratio] 13.7 % Normal 11.0-15.0 [facility] Comment on above: Performed By: #### T 7, LIPA, TSH, AMADOU, CMP #### [facility] [address] [place] [address] Dr. Krystle Heaton Hematocrit (Bld) [Volume fraction] 44.1 % Normal 42.0-54.0 [facility] Comment on above: Performed By: #### T 7, LIPA, TSH, AMADOU, CMP #### [facility] [address] [place] [address] Dr. Krystle Heaton Hemoglobin (Bld) [Mass/Vol] 15.0 g/dL Normal 14.0-18.0 [facility] Comment on above: Performed By: #### T 7, LIPA, TSH, AMADOU, CMP #### [facility] [address] [place] [address] Dr. Krystle Heaton IG # 0.02 10e3/ul Normal 0.00-0.03 [facility] Comment on above: Performed By: #### T 7, LIPA, TSH, AMADOU, CMP #### [facility] [address] [place] [address] Dr. Krystle Heaton IG % 0.5 % Normal 0.0-0.5 [facility] Comment on above: Performed By: #### T 7, LIPA, TSH, AMADOU, CMP #### [facility] [address] [place] [address] Dr. Krystle Heaton LYMPH # 1.6 103/ul Normal 1.2-3.8 [facility] Comment on above: Performed By: #### T 7, LIPA, TSH, AMADOU, CMP #### [facility] [address] [place] [address] Dr. Krystle Heaton Lymphocytes/100 WBC (Bld) 40.7 % Normal 20.5-60.0 [facility] Comment on above: Performed By: #### T 7, LIPA, TSH, AMADOU, CMP #### [facility] [address] [place] [address] Dr. Krystle Heaton MANUAL DIFF REQ NO Normal [facility] Comment on above: Performed By: #### T 7, LIPA, TSH, AMADOU, CMP #### [facility] [address] [place] [address] Dr. Krystle Heaton MCH (RBC) [Entitic mass] 36.2 pg Critically high 25.9-34.0 [facility] Comment on above: Performed By: #### T 7, LIPA, TSH, AMADOU, CMP #### [facility] [address] [place] [address] Dr. Krystle Heaton MCHC (RBC) [Mass/Vol] 34.0 g/dL Normal 29.9-35.2 [facility] Comment on above: Performed By: #### T 7, LIPA, TSH, AMADOU, CMP #### [facility] [address] [place] [address] Dr. Krystle Heaton MCV (RBC) [Entitic vol] 106.5 fL Critically high 80.0-94.0 [facility] Comment on above: Performed By: #### T 7, LIPA, TSH, AMADOU, CMP #### [facility] [address] [place] [address] Dr. Krystle Heaton MONO # 0.3 103/ul Normal 0.3-0.8 [facility] Comment on above: Performed By: #### T 7, LIPA, TSH, AMADOU, CMP #### [facility] [address] [place] [address] Dr. Krystle Heaton Monocytes/100 WBC (Bld) 8.1 % Normal 1.7-12.0 [facility] Comment on above: Performed By: #### T 7, LIPA, TSH, AMADOU, CMP #### [facility] [address] [place] [address] Dr. Krystle Heaton NEUT # 1.9 103/ul Normal 1.4-6.5 [facility] Comment on above: Performed By: #### T 7, LIPA, TSH, AMADOU, CMP #### [facility] [address] [place] [address] Dr. Krystle Heaton Neutrophils/100 WBC (Bld) 47.2 % Normal 43.0-75.0 [facility] Comment on above: Performed By: #### T 7, LIPA, TSH, AMADOU, CMP #### [facility] [address] [place] [address] Dr. Krystle Heaton Platelet mean volume (Bld) [Entitic vol] 11.6 fL Normal 9.5-13.5 [facility] Comment on above: Performed By: #### T 7, LIPA, TSH, AMADOU, CMP #### [facility] [address] [place] [address] Dr. Krystle Heaton PLT 184 103/ul Normal 150-450 [facility] Comment on above: Performed By: #### T 7, LIPA, TSH, AMADOU, CMP #### [facility] [address] [place] [address] Dr. Krystle Heaton RBC 4.14 106/ul Critically low 4.70-6.10 The [facility] Comment on above: Performed By: #### T 7, LIPA, TSH, AMADOU, CMP #### [facility] [address] [place] [address] Dr. Krystle Heaton WBC 4.0 103/ul Normal 4.0-11.0 [facility] Comment on above: Performed By: #### T 7, LIPA, TSH, AMADOU, CMP #### [facility] [address] [place] [address] Dr. Krystle Heaton FERRITINon 01-06-2021 Ferritin [Mass/Vol] ng/mL Critically high 17.9-464.0 [facility] Comment on above: Performed By: #### H BSANS #### [facility] [address] [place] [address] Billy Devlin CBC AUTO DIFFon 12-09-2020 BASO # 0.0 103/ul Normal 0.0-0.1 [facility] Comment on above: Performed By: #### T 7, LIPA, TSH, AMADOU, CMP #### [facility] [address] [place] [address] Dr. Krystle Heaton Basophils/100 WBC (Bld) 0.6 % Normal 0.2-2.0 [facility] Comment on above: Performed By: #### T 7, LIPA, TSH, AMADOU, CMP #### [facility] [address] [place] [address] Dr. Krystle Heaton EO # 0.1 103/ul Normal 0.0-0.7 [facility] Comment on above: Performed By: #### T 7, LIPA, TSH, AMADOU, CMP #### [facility] [address] [place] [address] Dr. Krystle Heaton Eosinophils/100 WBC (Bld) 2.6 % Normal 0.9-7.0 [facility] Comment on above: Performed By: #### T 7, LIPA, TSH, AMADOU, CMP #### [facility] [address] [place] [address] Dr. Krystle Heaton Erythrocyte distribution width (RBC) [Ratio] 13.0 % Normal 11.0-15.0 [facility] Comment on above: Performed By: #### T 7, LIPA, TSH, AMADOU, CMP #### [facility] [address] [place] [address] Dr. Krystle Heaton Hematocrit (Bld) [Volume fraction] 46.2 % Normal 42.0-54.0 [facility] Comment on above: Performed By: #### T 7, LIPA, TSH, AMADOU, CMP #### [facility] [address] [place] [address] Dr. Krystle Heaton Hemoglobin (Bld) [Mass/Vol] 16.0 g/dL Normal 14.0-18.0 [facility] Comment on above: Performed By: #### T 7, LIPA, TSH, AMADOU, CMP #### [facility] [address] [place] [address] Dr. Krystle Heaton IG # 0.01 10e3/ul Normal 0.00-0.03 [facility] Comment on above: Performed By: #### T 7, LIPA, TSH, AMADOU, CMP #### [facility] [address] [place] [address] Dr. Krystle Heaton IG % 0.2 % Normal 0.0-0.5 [facility] Comment on above: Performed By: #### T 7, LIPA, TSH, AMADOU, CMP #### [facility] [address] [place] [address] Dr. Krystle Heaton LYMPH # 1.3 103/ul Normal 1.2-3.8 [facility] Comment on above: Performed By: #### T 7, LIPA, TSH, AMADOU, CMP #### [facility] [address] [place] [address] Dr. Krystle Heaton Lymphocytes/100 WBC (Bld) 27.8 % Normal 20.5-60.0 [facility] Comment on above: Performed By: #### T 7, LIPA, TSH, AMADOU, CMP #### [facility] [address] [place] [address] Dr. Krystle Heaton MANUAL DIFF REQ NO Normal [facility] Comment on above: Performed By: #### T 7, LIPA, TSH, AMADOU, CMP #### [facility] [address] [place] [address] Dr. Krystle Heaton MCH (RBC) [Entitic mass] 34.9 pg Critically high 25.9-34.0 [facility] Comment on above: Performed By: #### T 7, LIPA, TSH, AMADOU, CMP #### [facility] [address] [place] [address] Dr. Krystle Heaton MCHC (RBC) [Mass/Vol] 34.6 g/dL Normal 29.9-35.2 [facility] Comment on above: Performed By: #### T 7, LIPA, TSH, AMADOU, CMP #### [facility] [address] [place] [address] Dr. Krystle Heaton MCV (RBC) [Entitic vol] 100.9 fL Critically high 80.0-94.0 [facility] [facility] Comment on above: Performed By: #### T 7, LIPA, TSH, AMADOU, CMP #### [facility] [address] [place] [address] Dr. Krystle Heaton MONO # 0.3 103/ul Normal 0.3-0.8 [facility] Comment on above: Performed By: #### T 7, LIPA, TSH, AMADOU, CMP #### [facility] [address] [place] [address] Dr. Krystle Heaton Monocytes/100 WBC (Bld) 6.6 % Normal 1.7-12.0 [facility] Comment on above: Performed By: #### T 7, LIPA, TSH, AMADOU, CMP #### [facility] [address] [place] [address] Dr. Krystle Heaton NEUT # 2.9 103/ul Normal 1.4-6.5 [facility] Comment on above: Performed By: #### T 7, LIPA, TSH, AMADOU, CMP #### [facility] [address] [place] [address] Dr. Krystle Heaton Neutrophils/100 WBC (Bld) 62.2 % Normal 43.0-75.0 [facility] Comment on above: Performed By: #### T 7, LIPA, TSH, AMADOU, CMP #### [facility] [address] [address] [address] Krystle Heaton Platelet mean volume (Bld) [Entitic vol] 11.0 fL Normal 9.5-13.5 [facility] Comment on above: Performed By: #### T 7, LIPA, TSH, AMADOU, CMP #### [facility] [address] [place] [address] Dr. Krystle Heaton PLT 171 103/ul Normal 150-450 [facility] Comment on above: Performed By: #### T 7, LIPA, TSH, AMADOU, CMP #### [facility] [address] [place] [address] Dr. Krystle Heaton RBC 4.58 106/ul Critically low 4.70-6.10 [facility] Comment on above: Performed By: #### T 7, LIPA, TSH, AMADOU, CMP #### [facility] [address] [place] [address] Dr. Krystle Heaton WBC 4.7 103/ul Normal 4.0-11.0 [facility] Comment on above: Performed By: #### T 7, LIPA, TSH, AMADOU, CMP #### [facility] [address] [place] [address] Dr. Krystle Heaton PROF 14(COMP METB)on 021 Albumin [Mass/Vol] 3.9 g/dL Normal 3.5-5.0 [facility] Comment on above: Performed By: #### T 7, LIPA, TSH, AMADOU, CMP #### [facility] [address] [place] [address] Dr. Krystle Heaton Albumin/Globulin [Mass ratio] 1.1 {ratio} Normal [facility] Comment on above: Performed By: #### T 7, LIPA, TSH, MAADOU, CMP #### [facility] [address] [place] [address] Dr. Krystle Heaton ALP [Catalytic activity/Vol] 86 U/L Normal 38-126 [facility] Comment on above: Performed By: #### T 7, LIPA, TSH, AMADOU, CMP #### [facility] [address] [place] [address] Dr. Krystle Heaton ALT [Catalytic activity/Vol] 87 U/L Critically high 21-72 [facility] Comment on above: Performed By: #### T 7, LIPA, TSH, AMADOU, CMP #### [facility] [address] [place] [address] Dr. Krystle Heaton Anion gap [Moles/Vol] 15.7 mmol/L Normal [facility] Comment on above: Performed By: #### T 7, LIPA, TSH, AMADOU, CMP #### [facility] [address] [place] [address] Dr. Krystle Heaton AST [Catalytic activity/Vol] 70 U/L Critically high 17-59 [facility] Comment on above: Performed By: #### T 7, LIPA, TSH, AMADOU, CMP #### [facility] [address] [place] [address] Dr. Krystle Heaton Bilirubin [Mass/Vol] 1.4 mg/dL Critically high 0.2-1.3 [facility] Comment on above: Performed By: #### T 7, LIPA, TSH, AMADOU, CMP #### [facility] [address] [place] [address] Dr. Krystle Heaton Calcium [Mass/Vol] 9.3 mg/dL Normal 8.4-10.2 [facility] Comment on above: Performed By: #### T 7, LIPA, TSH, AMADOU, CMP #### [facility] [address] [place] [address] Dr. Krystle Heaton Chloride [Moles/Vol] 102 mmol/L Normal 98-107 [facility] Comment on above: Performed By: #### T 7, LIPA, TSH, AMADOU, CMP #### [facility] [address] [place] [address] Dr. Krystle Heaton CO2 [Moles/Vol] 26.5 mmol/L Normal 22.0-30.0 [facility] Comment on above: Performed By: #### T 7, LIPA, TSH, AMADOU, CMP #### [facility] [address] [place] [address] Dr. Krystle Heaton Creatinine [Mass/Vol] 1.27 mg/dL Critically high 0.66-1.25 [facility] Comment on above: Performed By: #### T 7, LIPA, TSH, AMADOU, CMP #### [facility] [address] [place] [address] Dr. Krystle Heaton EGFR-AF KAZAKH >60 Normal >=60 [facility] Comment on above: Performed By: #### T 7, LIPA, TSH, AMADOU, CMP #### [facility] [address] [place] [address] Dr. Krystle Heaton EGFR-NON AF KAZAKH =60 Normal >=60 [facility] Comment on above: Performed By: #### T 7, LIPA, TSH, AMADOU, CMP #### [facility] [address] [place] [address] Dr. Krystle Heaton Globulin (S) [Mass/Vol] 3.5 g/dL Normal [facility] Comment on above: Performed By: #### T 7, LIPA, TSH, AMADOU, CMP #### [facility] [address] [place] [address] Dr. Krystle Heaton Glucose [Mass/Vol] 120 mg/dL Critically high 74-106 [facility] Comment on above: Performed By: #### T 7, LIPA, TSH, AMADOU, CMP #### [facility] [address] [place] [address] Dr. Krystle Heaton Potassium [Moles/Vol] 4.2 mmol/L Normal 3.4-5.0 [facility] Comment on above: Performed By: #### T 7, LIPA, TSH, AMADOU, CMP #### [facility] [address] [place] [address] Dr. Krystle Heaton Protein [Mass/Vol] 7.4 g/dL Normal 6.1-8.2 [facility] Comment on above: Performed By: #### T 7, LIPA, TSH, AMADOU, CMP #### [facility] [address] [place] [address] Dr. Krystle Heaton Sodium [Moles/Vol] 140 mmol/L Normal 137-145 [facility] Comment on above: Performed By: #### T 7, LIPChasidy, TSH, AMADOU, CMP #### [facility] [address] [place] [address] Dr. Krystle Heaton Urea nitrogen [Mass/Vol] 12.0 mg/dL Normal 9.0-20.0 [facility] Comment on above: Performed By: #### T 7, LIPChasidy, TSH, AMADOU, CMP #### [facility] [address] [place] [address] Dr. Krystle Heaton Urea nitrogen/Creatinine [Mass ratio] 9.4 mg/mg Normal [facility] Comment on above: Performed By: #### T 7, LA, SAVITA, AMADOU, CMP #### [facility] [address] [place] [address] Dr. Krystle Heaton PROTIMEon 12-09-2020 INR Coag (PPP) [Relative time] 0.96 {INR} Normal [facility] Comment on above: Performed By: #### H BSANS #### [facility] [address] [place] [address] Billy Devlin INR GUIDELINES SEE BELOW Normal [facility] Comment on above: Result Comment: MOUNA RED INR: 2.0 - 3.0 CONDITIONS NOT LISTED BELOW 2.5 - 3.5 FOR PROSTHETIC HEART VALVE REPLACEMENT 2.5 - 3.5 RECURRENT THROMBOSIS Performed By: #### H BSANS #### [facility] [address] [place] [address] Billy Devlin PT Coag (PPP) [Time] 10.5 s Normal 9.0-11.6 [facility] Comment on above: Performed By: #### H BSANS #### [facility] [address] [place] [address] Billy Devlin US SINGLE QUAD RT UPPERon [...] by: KRISTEN GODINEZ Date: 2020-12-09 10:23 Normal [facility] Encounters Encounter Date Encounter Type Care Provider Facility Start: 07-14-2024 End: 07-14-2024 ambulatory RASHAWN H TIMMIS Not Available Start: 05-26-2024 End: 05-26-2024 ambulatory RASHAWN H TIMMIS Not Available Start: 05-24-2024 End: 05-24-2024 ambulatory [...] preprocedural laboratory examination DR DOCTOR PALUMBO [facility] Start: 08-10-2021 AUDIT No PCP None [facility] [place] [address] [facility] Work Phone: Start: 08-02-2021 Chart Update No PCP None [facility] [address] [facility] Work Phone: Start: 07-28-2021 End: 07-29-2021 ambulatory [...] [facility] [address] [facility] Work Phone: Start: 04-10-2021 Office outpatient ne w 45 minutes No PCP None [facility] [address] [address] [facility] Work Phone: Start: 04-06-2021 End: [...] Start: 12-09-2020 End: 12-10-[address] Teresa GARZA Facility:H1 Evaluation finding No PCP None [facility] [address] [facility] Work Phone: Procedures Date Procedure Procedure Detail Performing Clinician Biopsy of liver No PCP None Repair of musculoten dinous cuff of shoulder No PCP None Payers Date Payer Category Payer Unknown [id number] 1970 Unknown [id number] 2.16.84 0.1.023736.3.579.2.593 1970 Unknown [id number] 2.16.84 0.1.599817.3.579.2.593 1970 Unknown [id number] 2.16.84 0.1.413709.3.579.2.593 1970 Unknown [id number] 2.16.84 0.1.503089.3.579.2.593 1969 Unknown [id number] 2.16.84 0.1.134351.3.579.2.593 1969 Unknown [id number] 2.16.84 0.1.185359.3.579.2.593 1969 Unknown [id number] 2.16.84 0.1.881080.3.579.2.593 1969 Unknown [id number] 2.16.84 0.1.263260.3.579.2.593 1969 Unknown [id number] 2.16.84 0.1.591569.3.579.2.593 1969 Unknown [id number] 2.16.84 0.1.977819.3.579.2.593 1969 Unknown [id number] 2.16.84 0.1.420108.3.579.2.593 1969 Unknown [id number] 2.16.84 0.1.022488.3.579.2.593 1969 Unknown [id number] 2.16.84 0.1.337006.3.579.2.593 1969 Unknown [id number] 2.16.84 0.1.501626.3.579.2.593 1969 Unknown [id number] 2.16.84 0.1.089961.3.579.2.593 1969 Unknown [id number] 2.16.84 0.1.633146.3.579.2.593 1969 Unknown [id number] 2.16.84 0.1.022124.3.579.2.593 1969 Unknown [id number] 2.16.84 0.1.799260.3.579.2.593 1969 Unknown [id number] 2.16.84 0.1.775381.3.579.2.593 1969 Unknown [id number] 2.16.84 0.1.667746.3.579.2.593 1969 Unknown [id number] 2.16.84 0.1.294992.3.579.2.593 1969 Unknown [id number] 2.16.84 0.1.601594.3.579.2.593 1969 Unknown [id number] 2.16.84 0.1.026273.3.579.2.1259 1969 Unknown [id number] 2.16.84 0.1.000767.3.579.2.1259 1969 Unknown [id number] 2.16.84 0.1.100700.3.579.2.1259 1960 Self-pay [id number] Self-pay 1960 Unknown [id number] Unknown ANTHEM Unknown [id number] 2.16.84 0.1.145222.3.579.2.593 Unknown [id number] 2.16.84 0.1.297614.3.579.2.593 Unknown [id number] 2.16.8 40.1.183579.3.579.2.531 Social History Date Type Detail Facility Former smoker Former smoker [facility] [address] [facility] Work Phone: Start: 1970 Sex Assigned At Male F [facility] Clinical Note 07-31-2021 Note Date & Type [...] report Procedure performed by: Sandy Roland MD Technical Business Analyst(s): Dee Lopes Md Estimated Blood Loss (mL): [...] Last Updated: 02-Aug-2021 13:04 by Sandy Roland) [facility] Clinical Note 05-08-2021 Note Date & Type Note Facility 05-08-2021 Note Pre-procedure Verifi cation and Time Out: Pre-Procedure Verification and Time Out: Procedure Locationprocedure area HUDDLE - Pre-procedure Verificationcompleted TIME OUT - Final Verificationcompleted DEBRIEFcompleted General Information: Anesthesia Critical Care: Non-Anesthesia Date/Time of Procedure: 08-May-2021 11:57 Post-Procedure Diagnosis: same Procedure Name: CT Liver Biopsy Findings: grossly normal anatomy Procedure performed by: me Technical Business Analyst(s): none Estimated Blood Loss (mL): none Specimen: [...] Last Updated: 08-May-2021 11:58 by Uri Bacon) [facility] Evaluation note Note Date & Type Note Facility Evaluation note No assessment information [facility] Work Phone: History of Present [...] no lower extremity edema.Symptom History:Modifying Factors:Associated Symptoms: [facility] [address] [facility] Work Phone: Chief Complaint [...] section and content) DATE CREATED AUTHOR 04/14/2021 [employer] [employer] DATE CREATED AUTHOR AUTHOR'S ORGANIZ ATION 05/15/2021 [facility] DATE CREATED AUTHOR AUTHOR'S ORGANIZ ATION 11/29/2021 [facility] DATE CREATED AUTHOR AUTHOR'S ORGANIZ ATION 04/15/2022 [facility] DATE CREATED AUTHOR AUTHOR'S ORGANIZ ATION 01/28/2023 [facility] DATE CREATED AUTHOR AUTHOR'S ORGANIZ ATION 05/24/2023 [facility] DATE CREATED AUTHOR AUTHOR'S ORGANIZ ATION 07/15/2024 [facility] EPIC Goals (unrecognized section and [...] BE BASED ON THE PRIMARY CLINICAL RECORDS. [facility] provides no warranty or guarantee of the accuracy or completeness of information in this document.
[2024-08-16 11:55] LABS: Basophils Percent Auto 0.6 % (0.2-2.0); Eosinophils Absolute Auto 0.2 10^3/uL (0.0-0.7); Eosinophils Percent Auto 4.8 % (0.9-7.0); Hematocrit 41.2 % (42.0-54.0); Hemoglobin 13.6 g/dL (14.0-18.0); Immature Granulocytes Abs Auto 0.06 10^3/uL (0.00-0.03); Immature Granulocytes Pct Auto 1.3 % (0.0-0.5); Lymphocytes Absolute Auto 1.8 10^3/uL (1.2-3.8); Mean Corpuscular Volume 96.9 fL (80.0-94.0); Mean Platelet Volume 11.5 fL (9.5-13.5); Monocytes Absolute Auto 0.5 10^3/uL (0.3-0.8); Monocytes Percent Auto 11.3 % (1.7-12.0); Neutrophils Absolute Auto 2.1 10^3/uL (1.4-6.5); Platelet Count 103 10^3/uL (150-450); Red Blood Count 4.25 10^6/uL (4.70-6.10); Red Cell Distribution Width 13.6 % (11.0-15.0); White Blood Count 4.8 10^3/uL (4.0-11.0)
[2024-08-16 12:27] LABS: Alanine Aminotransferase 18 U/L (16-63); Albumin Globulin Ratio 0.7; Albumin Level 2.7 g/dL (3.4-5.0); Alkaline Phosphatase 73 U/L (46-116); Anion Gap 9.8; Aspartate Amino Transferase 25 U/L (15-37); BUN Creatinine Ratio 11.4; Bilirubin Total 1.4 mg/dL (0.2-1.0); Calcium 9.1 mg/dL (8.5-10.1); Carbon Dioxide 26.3 mmol/L (21.0-32.0); Chloride 107 mmol/L (98-107); Estimated GFR (African America >60 (>=60 mL/min/1.73m^2); Estimated GFR (Non-African Ame >60 (>=60 mL/min/1.73m^2); Free T3 3.47 pg/mL (2.18-3.98); Globulin 3.7 g/dL; Glucose 100 mg/dL (74-106); Potassium 4.1 mmol/L (3.5-5.1); Sodium 139 mmol/L (136-145); Thyroid Stimulating Hormone 1.596 uIU/mL (0.358-3.740); Total Protein 6.4 g/dL (6.4-8.2); Troponin I High Sensitivity 4.6 pg/mL (4.0-76.1)
--- NOTE | 2024-08-16 13:01 | US_ITS ---
[id number] Patient Name: ANGIE FRITZ MRN: [id number] date: 1970 Sex: M Assigned Patient Location: LAB Current Patient Location: LAB Accession/Order Number: [id number] Exam Date: 08/16/2024 13:06 Report Date: 08/16/2024 13:48 At the request of: GENEVIEVE ARREOLA Procedure: US venous doppler LE BI CLINICAL DATA: Bilateral leg swelling PROCEDURE: Bilateral lower extremity venous duplex ultrasound TECHNIQUE: Strong-scale, color flow, and waveform spectral analysis was performed of the bilateral lower extremities. FINDINGS: The bilateral common femoral, profunda femoral, femoral, and popliteal veins were compressible. The saphenous veins were compressible. No venous thrombosis was seen. The veins fill with color Doppler. Augmentation was normal. US/US venous doppler LE BI IMPRESSION: 1. No acute lower extremity deep venous thrombosis. 2. No superficial venous thrombosis. Electronically authenticated by: Al UMAÑA Date: 08/16/2024 13:48
== END 2024-08-16 11:26 | disposition home or self-care (01) ==
LOC: LAB 11:26
PROVIDERS: PCP Family Medicine; Visit Provider Family Medicine
DX: E03.9 Hypothyroidism, unspecified (principal); E87.70 Fluid overload, unspecified; F41.9 Anxiety disorder, unspecified; I11.0 Hypertensive heart disease with heart failure; I50.30 Unspecified diastolic (congestive) heart failure; R60.0 Localized edema
CPT/HCPCS: 36415; 80053; 83880; 84436; 84443; 84481; 84484; 85025; 93970

== ENCOUNTER 2024-08-18 06:57 | Outpatient (OUT) | payer OTHER, SELFPAY ==
--- NOTE | 2024-08-18 07:01 | CA_ITS ---
Patient Name: ANGIE FRITZ MR#: [id number] : 1970 Exam Date: 08/18/2024 Ordering Doctor: DR GENEVIEVE ARREOLA . ECHOCARDIOGRAM REPORT PROCEDURE: CA ECHO DOPPLER COMPLETE INDICATIONS: Hypertension, Fluid overload, hypothyroid COMPARISON: None. DESCRIPTION: COMPLETE ECHOCARDIOGRAM Real-time transthoracic echocardiography with 2D, M-mode, spectral and color flow Doppler performed. QUALITY: Technical quality was good. LEFT VENTRICLE: Normal chamber size. Normal left ventricular wall thickness. LV EF: Global left ventricular systolic function is normal; visually estimated ejection fraction is 60 to 65%. No significant wall motion abnormalities. DIASTOLIC: Normal diastolic function. ATRIAL SEPTUM: Inadequately seen. LEFT ATRIUM: Normal chamber size. RIGHT ATRIUM: Normal chamber size. RIGHT VENTRICLE: Normal chamber size. Normal right ventricular systolic function. TRICUSPID VALVE: Normal mobility and thickness. No stenosis with trivial regurgitation. No evidence of pulmonary hypertension. RVSP 30mmHg MITRAL VALVE: Normal mobility and thickness. No evidence of mitral valve stenosis. There is no mitral annular calcification. Trivial mitral regurgitation. AORTIC VALVE: Normal trileaflet appearance. No visible sclerosis. Normal leaflet mobility. No evidence of aortic valve stenosis. No aortic regurgitation. AORTIC ROOT: Normal diameter and appearance. PULMONIC VALVE: Normal thickness and mobility. No stenosis. Trivial regurgitation. PERICARDIUM: No evidence of pericardial effusion. IVC: Collapses with inspirations. Normal size. CONCLUSION: 1. Global left ventricular systolic function is normal; visually estimated ejection fraction is 60 to 65% 2. Normal right ventricular size and systolic function 3. Normal diastolic function 4. The left atrium is normal in size 5. No significant valvular abnormalities Adult Echocardiography Procedure Report Left Ventricle LVEDD (3.7 - 5.6 cm): 4.33 cm LVESD (2.2 - 4.0 cm): 2.57 cm LVIVS thickness (0.6 - 1.2 cm): 0.99 cm LVPW thickness (0.5 - 1.0 cm): 0.90 cm e': 0.12 m/s E - e': 5.94 LVOT Max Gradient: 3.12 mm[Hg] LVOT Area (cm2): 0.88 m/s Peak Velocity (LVOT): 0.88 m/s Mean Velocity (LVOT): 0.55 m/s LVOT Diameter 2.20 cm Left Ventricular Ejection Fraction: 73.64 % Left Atrium LA Volume Index (2D A2C): 34.57 ml/m2 Left Atrium Systolic Dimension: 4.16 cm Mitral Valve MV E to A Ratio: 1.18 Mitral Valve A-Wave Peak Velocity: 0.62 m/s Mitral Valve E-Wave Peak Velocity: 0.73 m/s Right Ventricle RV Internal Diastolic Dimension: 3.30 cm Aorta AO Root Diam: 3.23 cm Ascending Ao Diam: 2.67 cm Aortic Valve AoV Area (Peak Acosta): 2.78 cm2, 2.78 cm2 AoV Area (VTI): 2.58 cm2, 2.58 cm2 Peak Velocity(Antegrade Flow): 1.21 m/s Peak Gradient(Antegrade Flow): 5.88 mm[Hg] Mean Velocity(Antegrade Flow): 0.84 m/s Mean Gradient(Antegrade Flow): 3.27 mm[Hg] Velocity Time Integral: 30.66 cm Tricuspid Valve Peak Velocity (Regurgitant Flow): 2.18 m/s, 2.14 m/s, 2.61 m/s Pulmonic Valve Mean Gradient: 2.37 mm[Hg], 2.84 mm[Hg] Mean Velocity: 0.71 m/s, 0.79 m/s Peak Velocity: 1.12 m/s Peak Gradient: 4.62 mm[Hg], 5.49 mm[Hg] Right Atrium Right Atrium Systolic Pressure: 43.99 ml, 43.99 ml Dictated by: Deena Wallace M.D. on 08/18/2024 at 17:17 Approved by: Deena Wallace M.D. on 08/18/2024 at 17:19
--- OUTSIDE RECORDS SUMMARY | 2024-08-18 07:01 | XMS_ITS | CCD ---
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 Name Role Phone None, No PCP Unavailable [...] Unavailable STEPHANIE, DR AMADOU Chang Admitting Unavailable STEPHANEI, DR AMADOU Chang Attending Unavailable MAXWELL, DR [...] Allergy 2 Swelling of the Eye [facility] Repository (1 source) Morphine Drug Allergy 2 [facility] Repository Medications Current Medications Medication Drug Class(es) [...] office Testingon 01-29-20 23 In office Testing [id number] Normal [facility] AMYLASEon 11-26-2021 Amylase [Catalytic activity/Vol] 53 U/L Normal 31-110 [facility] Comment on above: Performed By: #### T 7, LIPA, TSH, AMADOU, CMP #### [facility] [address] [address] [address] Krystle Heaton CBC AUTO DIFFon 11-26-2021 BASO # 0.0 103/ul Normal 0.0-0.1 [facility] Comment on above: Performed By: #### F ERR #### [facility] [address] [address] [address] Krystle Heaton Basophils/100 WBC (Bld) 0.6 % Normal 0.2-2.0 [facility] Comment on above: Performed By: #### F ERR #### [facility] [address] [address] [address] Krystle Heaton EO # 0.1 103/ul Normal 0.0-0.7 [facility] Comment on above: Performed By: #### F ERR #### [facility] [address] [address] [address] Krystle Heaton Eosinophils/100 WBC (Bld) 2.7 % Normal 0.9-7.0 [facility] Comment on above: Performed By: #### F ERR #### [facility] [address] [place] [address] Dr. Krystle Heaton Erythrocyte distribution width (RBC) [Ratio] 16.0 % Critically high 11.0-15.0 [facility] Comment on above: Performed By: #### F ERR #### [facility] [address] [place] [address] Dr. Krystle Heaton Hematocrit (Bld) [Volume fraction] 42.8 % Normal 42.0-54.0 [facility] Comment on above: Performed By: #### F ERR #### [facility] [address] [place] [address] Dr. Krystle Heaton Hemoglobin (Bld) [Mass/Vol] 13.0 g/dL Critically low 14.0-18.0 [facility] Comment on above: Performed By: #### F ERR #### [facility] [address] [place] [address] Dr. Krystle Heaton IG # 0.02 10e3/ul Normal 0.00-0.03 [facility] Comment on above: Performed By: #### F ERR #### [facility] [address] [place] [address] Dr. Krystle Heaton IG % 0.4 % Normal 0.0-0.5 [facility] Comment on above: Performed By: #### F ERR #### [facility] [address] [address] [address] Krystle Heaton LYMPH # 0.9 103/ul Critically low 1.2-3.8 [facility] Comment on above: Performed By: #### F ERR #### [facility] [address] [address] [address] Krystle Heaton Lymphocytes/100 WBC (Bld) 19.1 % Critically low 20.5-60.0 [facility] Comment on above: Performed By: #### F ERR #### [facility] [address] [place] [address] Dr. Krystle Heaton MANUAL DIFF REQ NO Normal [facility] Comment on above: Performed By: #### F ERR #### [facility] [address] [place] [address] Dr. Krystle Heaton MCH (RBC) [Entitic mass] 27.7 pg Normal 25.9-34.0 [facility] Comment on above: Performed By: #### F ERR #### [facility] [address] [place] [address] Dr. Krystle Heaton MCHC (RBC) [Mass/Vol] 30.4 g/dL Normal 29.9-35.2 [facility] Comment on above: Performed By: #### F ERR #### [facility] [address] [place] [address] Dr. Krystle Heaton MCV (RBC) [Entitic vol] 91.1 fL Normal 80.0-94.0 [facility] Comment on above: Performed By: #### F ERR #### [facility] [address] [place] [address] Dr. Krystle Heaton MONO # 0.5 103/ul Normal 0.3-0.8 [facility] Comment on above: Performed By: #### F ERR #### [facility] [address] [place] [address] Dr. Krystle Heaton Monocytes/100 WBC (Bld) 10.4 % Normal 1.7-12.0 [facility] Comment on above: Performed By: #### F ERR #### [facility] [address] [address] [address] Krystle Heaton NEUT # 3.2 103/ul Normal 1.4-6.5 [facility] Comment on above: Performed By: #### F ERR #### [facility] [address] [place] [address] Dr. Krystle Heaton Neutrophils/100 WBC (Bld) 66.8 % Normal 43.0-75.0 [facility] Comment on above: Performed By: #### F ERR #### [facility] [address] [place] [address] Dr. Krystle Heaton Platelet mean volume (Bld) [Entitic vol] 11.3 fL Normal 9.5-13.5 [facility] Comment on above: Performed By: #### F ERR #### [facility] [address] [place] [address] Dr. Krystle Haeton PLT 177 103/ul Normal 150-450 [facility] Comment on above: Performed By: #### F ERR #### [facility] [address] [place] [address] Dr. Krystle Heaton RBC 4.70 106/ul Normal 4.70-6.10 [facility] Comment on above: Performed By: #### F ERR #### [facility] [address] [place] [address] Dr. Krystle Heaton WBC 4.8 103/ul Normal 4.0-11.0 [facility] Comment on above: Performed By: #### F ERR #### [facility] [address] [place] [address] Dr. Krystle Heaton FERRITINon 11-26-2021 Ferritin [Mass/Vol] 63.0 ng/mL Normal 17.9-464.0 [facility] Comment on above: Performed By: #### C BC #### [facility] [address] [place] [address] Billy Deanen FREE THYROXINE INDEX T7on FTI 2.14 Normal [facility] Comment on above: Performed By: #### T 7, LIPA, TSH, AMADOU, CMP #### [facility] [address] [place] [address] Dr. Krystle Heaton T3U 34.0 % Normal 23.5-40.5 [facility] Comment on above: Performed By: #### T 7, LIPA, TSH, AMADOU, CMP #### [facility] [address] [place] [address] Dr. Krystle Heaton T4 [Mass/Vol] 6.30 ug/dL Normal 5.53-11.00 [facility] Comment on above: Performed By: #### T 7, LIPA, TSH, AMADOU, CMP #### [facility] [address] [place] [address] Dr. Krystle Heaton LIPASEon 11-26-2021 Lipase [Catalytic activity/Vol] 115.0 U/L Normal 23.0-300.0 [facility] Comment on above: Performed By: #### T 7, LIPA, TSH, AMADOU, CMP #### [facility] [address] [place] [address] Dr. Krystle Heaton PROF 14(COMP METB)on 022 Albumin [Mass/Vol] 3.6 g/dL Normal 3.5-5.0 [facility] Comment on above: Performed By: #### T 7, LIPA, TSH, AMADOU, CMP #### [facility] [address] [place] [address] Dr. Krystle Heaton Albumin/Globulin [Mass ratio] 0.9 {ratio} Normal [facility] Comment on above: Performed By: #### T 7, LIPA, TSH, AMADOU, CMP #### [facility] [address] [place] [address] Dr. Krystle Heaton ALP [Catalytic activity/Vol] 94 U/L Normal 38-126 [facility] Comment on above: Performed By: #### T 7, LIPA, TSH, AMADOU, CMP #### [facility] [address] [place] [address] Dr. Krystle Heaton ALT [Catalytic activity/Vol] 103 U/L Critically high 21-72 [facility] Comment on above: Performed By: #### T 7, LIPA, TSH, AMADOU, CMP #### [facility] [address] [place] [address] Dr. Krystle Heaton Anion gap [Moles/Vol] 12.8 mmol/L Normal [facility] Comment on above: Performed By: #### T 7, LIPA, TSH, AMADOU, CMP #### [facility] [address] [place] [address] Dr. Krystle Heaton AST [Catalytic activity/Vol] 148 U/L Critically high 17-59 [facility] Comment on above: Performed By: #### T 7, LIPA, TSH, AMADOU, CMP #### [facility] [address] [address] [address] Krystle Heaton Bilirubin [Mass/Vol] 1.2 mg/dL Normal 0.2-1.3 [facility] Comment on above: Performed By: #### T 7, LIPA, TSH, AMADOU, CMP #### [facility] [address] [place] [address] Dr. Krystle Heaton Calcium [Mass/Vol] 9.1 mg/dL Normal 8.4-10.2 [facility] Comment on above: Performed By: #### T 7, LIPA, TSH, AMADOU, CMP #### [facility] [address] [place] [address] Dr. Krystle Heaton Chloride [Moles/Vol] 100 mmol/L Normal 98-107 [facility] Comment on above: Performed By: #### T 7, LIPA, TSH, AMADOU, CMP #### [facility] [address] [place] [address] Dr. Krystle Heaton CO2 [Moles/Vol] 26.7 mmol/L Normal 22.0-30.0 [facility] Comment on above: Performed By: #### T 7, LIPA, TSH, AMADOU, CMP #### [facility] [address] [place] [address] Dr. Krystle Heaton Creatinine [Mass/Vol] 0.94 mg/dL Normal 0.66-1.25 [facility] Comment on above: Performed By: #### T 7, LIPA, TSH, AMADOU, CMP #### [facility] [address] [place] [address] Dr. Krystle Heaton EGFR-AF CENTRAL AFRICAN >60 Normal >=60 [facility] Comment on above: Performed By: #### T 7, LIPA, TSH, AMADOU, CMP #### [facility] [address] [address] [address] Krystle Heaton EGFR-NON AF CENTRAL AFRICAN >60 Normal >=60 [facility] Comment on above: Performed By: #### T 7, LIPA, TSH, AMADOU, CMP #### [facility] [address] [address] [address] Krystle Heaton Globulin (S) [Mass/Vol] 4.0 g/dL Normal [facility] Comment on above: Performed By: #### T 7, LIPA, TSH, AMADOU, CMP #### [facility] [address] [address] [address] Krystle Heaton Glucose [Mass/Vol] 112 mg/dL Critically high 74-106 [facility] Comment on above: Performed By: #### T 7, LIPA, TSH, AMADOU, CMP #### [facility] [address] [address] [address] Krystle Heaton Potassium [Moles/Vol] 4.5 mmol/L Normal 3.4-5.0 [facility] Comment on above: Performed By: #### T 7, LIPA, TSH, AMADOU, CMP #### [facility] [address] [address] [address] Krystle Heaton Protein [Mass/Vol] 7.6 g/dL Normal 6.1-8.2 [facility] Comment on above: Performed By: #### T 7, LIPA, TSH, AMADOU, CMP #### [facility] [address] [address] [address] Krystle Heaton Sodium [Moles/Vol] 135 mmol/L Critically low 137-145 [facility] Comment on above: Performed By: #### T 7, LIPA, TSH, AMADOU, CMP #### [facility] [address] [address] [address] Krystle Heaton Urea nitrogen [Mass/Vol] 5.0 mg/dL Critically low 9.0-20.0 [facility] Comment on above: Performed By: #### T 7, LIPA, TSH, AMADOU, CMP #### [facility] [address] [place] [address] Dr. Krystle Heaton Urea nitrogen/Creatinine [Mass ratio] 5.3 mg/mg Normal [facility] Comment on above: Performed By: #### T 7, LIPA, TSH, AMADOU, CMP #### [facility] [address] [address] [address] Krystle Heaton TSHon 11-26-2021 TSH 1.842 uIU/mL Normal 0.470-4.680 [facility] Comment on above: Performed By: #### T 7, LIPA, TSH, AMADOU, CMP #### [facility] [address] [place] [address] Dr. Krystle Heaton TSH RANGE SEE BELOW Normal [facility] Comment on above: Result Comment: <0.3 4 UIU/ml HYPERTHYROID 0.34-5.60 UIU/ml EUTHYROID >5.60 UIU/ml HYPOTHYROID Performed By: #### T 7, LIPA, TSH, AMADOU, CMP #### [facility] [address] [place] [address] Dr. Krystle Heaton [facility]on SARS-CoV-2 (COVID-19) RNA JIMBO+probe Ql (Unsp spec) Not detected Normal NOT DETECTED [facility] Comment on above: Result Comment: This test is not yet approved or cleared by the [place] FDA. When there are no FDA-approved or cleared tests available, and other criteria are met, FDA can make tests available under an emergency access mechanism called an Emergency Use Authorization (EUA). The EUA for this test is supported by the Therapist'S Assistant of Health and Human Service's (HHS's) declaration [...] SARS-CoV-2. Performed By: #### F ERR #### [facility] [address] [place] [address] Dr. Krystle Heaton CBC AUTO DIFFon 10-08-2021 BASO # 0.0 103/ul Normal 0.0-0.1 [facility] Comment on above: Performed By: #### T 7, LIPA, TSH, AMADOU, CMP #### [facility] [address] [place] [address] Dr. Krystle Heaton Basophils/100 WBC (Bld) 0.7 % Normal 0.2-2.0 [facility] Comment on above: Performed By: #### T 7, LIPA, TSH, AMADOU, CMP #### [facility] [address] [place] [address] Dr. Krystle Heaton EO # 0.2 103/ul Normal 0.0-0.7 [facility] Comment on above: Performed By: #### T 7, LIPA, TSH, AMADOU, CMP #### [facility] [address] [place] [address] Dr. Krystle Heaton Eosinophils/100 WBC (Bld) 3.6 % Normal 0.9-7.0 [facility] Comment on above: Performed By: #### T 7, LIPA, TSH, AMADOU, CMP #### [facility] [address] [place] [address] Dr. Krystle Heaton Erythrocyte distribution width (RBC) [Ratio] 16.0 % Critically high 11.0-15.0 [facility] Comment on above: Performed By: #### T 7, LIPA, TSH, AMADOU, CMP #### [facility] [address] [place] [address] Dr. Krystle Heaton Hematocrit (Bld) [Volume fraction] 38.7 % Critically low 42.0-54.0 [facility] Comment on above: Performed By: #### T 7, LIPA, TSH, AMADOU, CMP #### [facility] [address] [place] [address] Dr. Krystle Heaton Hemoglobin (Bld) [Mass/Vol] 11.7 g/dL Critically low 14.0-18.0 [facility] Comment on above: Performed By: #### T 7, LIPA, TSH, AMADOU, CMP #### [facility] [address] [place] [address] Dr. Krystle Heaton IG # 0.01 10e3/ul Normal 0.00-0.03 [facility] Comment on above: Performed By: #### T 7, LIPA, TSH, AMADOU, CMP #### [facility] [address] [place] [address] Dr. Krystle Heaton IG % 0.2 % Normal 0.0-0.5 [facility] Comment on above: Performed By: #### T 7, LIPA, TSH, AMADOU, CMP #### [facility] [address] [place] [address] Dr. Krystle Heaton LYMPH # 1.6 103/ul Normal 1.2-3.8 [facility] Comment on above: Performed By: #### T 7, LIPA, TSH, AMADOU, CMP #### [facility] [address] [place] [address] Dr. Krystle Heaton Lymphocytes/100 WBC (Bld) 29.2 % Normal 20.5-60.0 [facility] Comment on above: Performed By: #### T 7, LIPA, TSH, AMADOU, CMP #### [facility] [address] [place] [address] Dr. Krystle Heaton MANUAL DIFF REQ NO Normal [facility] Comment on above: Performed By: #### T 7, LIPA, TSH, AMADOU, CMP #### [facility] [address] [place] [address] Dr. Krystle Heaton MCH (RBC) [Entitic mass] 27.7 pg Normal 25.9-34.0 [facility] Comment on above: Performed By: #### T 7, LIPA, TSH, AMADOU, CMP #### [facility] [address] [place] [address] Dr. Krystle Heaton MCHC (RBC) [Mass/Vol] 30.2 g/dL Normal 29.9-35.2 [facility] Comment on above: Performed By: #### T 7, LIPA, TSH, AMADOU, CMP #### [facility] [address] [place] [address] Dr. Krystle Heaton MCV (RBC) [Entitic vol] 91.5 fL Normal 80.0-94.0 [facility] Comment on above: Performed By: #### T 7, LIPA, TSH, AMADOU, CMP #### [facility] [address] [place] [address] Dr. Krystle Heaton MONO # 0.6 103/ul Normal 0.3-0.8 [facility] Comment on above: Performed By: #### T 7, LIPA, TSH, AMADOU, CMP #### [facility] [address] [place] [address] Dr. Krystle Heaton Monocytes/100 WBC (Bld) 10.5 % Normal 1.7-12.0 [facility] Comment on above: Performed By: #### T 7, LIPA, TSH, AMADOU, CMP #### [facility] [address] [place] [address] Dr. Krystle Heaton NEUT # 3.1 103/ul Normal 1.4-6.5 [facility] Comment on above: Performed By: #### T 7, LIPA, TSH, AMADOU, CMP #### [facility] [address] [place] [address] Dr. Krystle Heaton Neutrophils/100 WBC (Bld) 55.8 % Normal 43.0-75.0 [facility] Comment on above: Performed By: #### T 7, LIPA, TSH, AMADOU, CMP #### [facility] [address] [place] [address] Dr. Krystle Heaton Platelet mean volume (Bld) [Entitic vol] 10.9 fL Normal 9.5-13.5 [facility] Comment on above: Performed By: #### T 7, LIPA, TSH, AMADOU, CMP #### [facility] [address] [place] [address] Dr. Krystle Heaton PLT 214 103/ul Normal 150-450 [facility] Comment on above: Performed By: #### T 7, LIPA, TSH, AMADOU, CMP #### [facility] [address] [place] [address] Dr. Krystle Heaton RBC 4.23 106/ul Critically low 4.70-6.10 [facility] Comment on above: Performed By: #### T 7, LIPA, TSH, AMADOU, CMP #### [facility] [address] [place] [address] Dr. Krystle Heaton WBC 5.5 103/ul Normal 4.0-11.0 [facility] Comment on above: Performed By: #### T 7, LIPA, TSH, AMADOU, CMP #### [facility] [address] [place] [address] Dr. Krystle Heaton FERRITINon 10-08-2021 Ferritin [Mass/Vol] 59.0 ng/mL Normal 17.9-464.0 [facility] Comment on above: Performed By: #### T 7, LIPA, TSH, AMADOU, CMP #### [facility] [address] [place] [address] Dr. Krystle Heaton CBC AUTO DIFFon 09-10-2021 BASO # 0.0 103/ul Normal 0.0-0.1 [facility] Comment on above: Performed By: #### C BC #### [facility] [address] [place] [address] Billy Quita Basophils/100 WBC (Bld) 0.8 % Normal 0.2-2.0 [facility] Comment on above: Performed By: #### C BC #### [facility] [address] [place] [address] Billy Quita EO # 0.1 103/ul Normal 0.0-0.7 [facility] Comment on above: Performed By: #### C BC #### [facility] [address] [place] [address] Billy Quita Eosinophils/100 WBC (Bld) 3.5 % Normal 0.9-7.0 [facility] Comment on above: Performed By: #### C BC #### [facility] [address] [place] [address] Billycarrillo Devlin Erythrocyte distribution width (RBC) [Ratio] 16.7 % Critically high 11.0-15.0 [facility] Comment on above: Performed By: #### C BC #### [facility] [address] [place] [address] Billy Quita Hematocrit (Bld) [Volume fraction] 40.6 % Critically low 42.0-54.0 [facility] Comment on above: Performed By: #### C BC #### [facility] [address] [place] [address] Billy Quita Hemoglobin (Bld) [Mass/Vol] 12.4 g/dL Critically low 14.0-18.0 [facility] Comment on above: Performed By: #### C BC #### [facility] [address] [place] [address] Billy Quita IG # 0.01 10e3/ul Normal 0.00-0.03 [facility] Comment on above: Performed By: #### C BC #### [facility] [address] [place] [address] Billy Quita IG % 0.3 % Normal 0.0-0.5 [facility] Comment on above: Performed By: #### C BC #### [facility] [address] [place] [address] Billy Quita LYMPH # 1.5 103/ul Normal 1.2-3.8 [facility] Comment on above: Performed By: #### C BC #### [facility] [address] [place] [address] Billy Devlin Lymphocytes/100 WBC (Bld) 39.7 % Normal 20.5-60.0 [facility] Comment on above: Performed By: #### C BC #### [facility] [address] [place] [address] Billycarrillo Devlin MANUAL DIFF REQ NO Normal [facility] Comment on above: Performed By: #### C BC #### [facility] [address] [place], [place] [address] Billycarrillo Devlin MCH (RBC) [Entitic mass] 27.6 pg Normal 25.9-34.0 [facility] Comment on above: Performed By: #### C BC #### [facility] [address] [place] [id number] Billycarrillo Devlin MCHC (RBC) [Mass/Vol] 30.5 g/dL Normal 29.9-35.2 [facility] Comment on above: Performed By: #### C BC #### [facility] [address] [place], [place] [id number] Billy Quita MCV (RBC) [Entitic vol] 90.2 fL Normal 80.0-94.0 [facility] Comment on above: Performed By: #### C BC #### [facility] [address] [place] [address] Billy Quita MONO # 0.5 103/ul Normal 0.3-0.8 [facility] Comment on above: Performed By: #### C BC #### [facility] [address] [place], [place] [id number] Billy Quita Monocytes/100 WBC (Bld) 13.3 % Critically high 1.7-12.0 [facility] Comment on above: Performed By: #### C BC #### [facility] [address] [place], [place] [id number] Billycarrillo Deanen NEUT # 1.6 103/ul Normal 1.4-6.5 [facility] Comment on above: Performed By: #### C BC #### [facility] [address] [place], [place] [id number] Billy Quita Neutrophils/100 WBC (Bld) 42.4 % Critically low 43.0-75.0 [facility] Comment on above: Performed By: #### C BC #### [facility] [address] [place], [place] [id number] Billy Quita Platelet mean volume (Bld) [Entitic vol] 11.5 fL Normal 9.5-13.5 [facility] Comment on above: Performed By: #### C BC #### [facility] [address] [place] [address] Billy Devlin PLT 136 103/ul Critically low 150-450 [facility] Comment on above: Performed By: #### C BC #### [facility] [address] [place] [address] Billy Devlin RBC 4.50 106/ul Critically low 4.70-6.10 [facility] Comment on above: Performed By: #### C BC #### [facility] [address] [place] [address] Billy Deanen WBC 3.7 103/ul Critically low 4.0-11.0 [facility] Comment on above: Performed By: #### C BC #### [facility] [address] [place] [address] Billy Devlin FERRITINon 09-10-2021 Ferritin [Mass/Vol] 106.0 ng/mL Normal 17.9-464.0 [facility] Comment on above: Performed By: #### F ERR #### [facility] [address] [place] [address] Dr. Krystle Heaton CBC AUTO DIFFon 08-15-2021 BASO # 0.0 103/ul Normal 0.0-0.1 [facility] Comment on above: Performed By: #### C BC #### [facility] [address] [place] [address] Dr. Krystle Heaton Basophils/100 WBC (Bld) 0.8 % Normal 0.2-2.0 [facility] Comment on above: Performed By: #### C BC #### [facility] [address] [place] [address] Dr. Krystle Heaton EO # 0.2 103/ul Normal 0.0-0.7 [facility] Comment on above: Performed By: #### C BC #### [facility] [address] [place] [address] Dr. Krystle Heaton Eosinophils/100 WBC (Bld) 4.4 % Normal 0.9-7.0 [facility] Comment on above: Performed By: #### C BC #### [facility] [address] [place] [address] Dr. Krystle Heaton Erythrocyte distribution width (RBC) [Ratio] 15.7 % Critically high 11.0-15.0 [facility] Comment on above: Performed By: #### C BC #### [facility] [address] [place] [address] Dr. Krystle Heaton Hematocrit (Bld) [Volume fraction] 39.4 % Critically low 42.0-54.0 [facility] Comment on above: Performed By: #### C BC #### [facility] [address] [place] [address] Dr. Krystle Heaton Hemoglobin (Bld) [Mass/Vol] 12.2 g/dL Critically low 14.0-18.0 [facility] Comment on above: Performed By: #### C BC #### [facility] [address] [place] [address] Dr. Krystle Heaton IG # 0.01 10e3/ul Normal 0.00-0.03 [facility] Comment on above: Performed By: #### C BC #### [facility] [address] [place] [address] Dr. Krystle Heaton IG % 0.2 % Normal 0.0-0.5 [facility] Comment on above: Performed By: #### C BC #### [facility] [address] [place] [address] Dr. Krystle Heaton LYMPH # 1.5 103/ul Normal 1.2-3.8 [facility] Comment on above: Performed By: #### C BC #### [facility] [address] [place] [address] Dr. Krystle Heaton Lymphocytes/100 WBC (Bld) 32.2 % Normal 20.5-60.0 [facility] Comment on above: Performed By: #### C BC #### [facility] [address] [place] [address] Dr. Krystle Heaton MANUAL DIFF REQ NO Normal [facility] Comment on above: Performed By: #### C BC #### [facility] [address] [address] [address] Krystle Heaton MCH (RBC) [Entitic mass] 27.4 pg Normal 25.9-34.0 [facility] Comment on above: Performed By: #### C BC #### [facility] [address] [place] [address] Dr. Krystle Heaton MCHC (RBC) [Mass/Vol] 31.0 g/dL Normal 29.9-35.2 [facility] Comment on above: Performed By: #### C BC #### [facility] [address] [place] [address] Dr. Krystle Heaton MCV (RBC) [Entitic vol] 88.5 fL Normal 80.0-94.0 [facility] Comment on above: Performed By: #### C BC #### [facility] [address] [place] [address] Dr. Krystle Heaton MONO # 0.6 103/ul Normal 0.3-0.8 [facility] Comment on above: Performed By: #### C BC #### [facility] [address] [place] [address] Dr. Krystle Heaton Monocytes/100 WBC (Bld) 11.7 % Normal 1.7-12.0 [facility] Comment on above: Performed By: #### C BC #### [facility] [address] [place] [address] Dr. Krystle Heaton NEUT # 2.4 103/ul Normal 1.4-6.5 [facility] Comment on above: Performed By: #### C BC #### [facility] [address] [place] [address] Dr. Krystle Heaton Neutrophils/100 WBC (Bld) 50.7 % Normal 43.0-75.0 [facility] Comment on above: Performed By: #### C BC #### [facility] [address] [place] [address] Dr. Krystle Heaton Platelet mean volume (Bld) [Entitic vol] 11.4 fL Normal 9.5-13.5 [facility] Comment on above: Performed By: #### C BC #### [facility] [address] [address] [address] Krystle Heaton PLT 169 103/ul Normal 150-450 [facility] Comment on above: Performed By: #### C BC #### [facility] [address] [address] [address] Krystle Heaton RBC 4.45 106/ul Critically low 4.70-6.10 [facility] Comment on above: Performed By: #### C BC #### [facility] [address] [address] [address] Krystle Heaton WBC 4.8 103/ul Normal 4.0-11.0 [facility] Comment on above: Performed By: #### C BC #### [facility] [address] [address] [address] Krystle Heaton FERRITINon 08-15-2021 Ferritin [Mass/Vol] 103.0 ng/mL Normal 17.9-464.0 [facility] Comment on above: Performed By: #### T 7, LIPA, TSH, AMADOU, CMP #### [facility] [address] [address] [address] Krystle Heaton No Panel Informationon 07-31 Name ANGIE FRITZ Pathologist: COLLTETE DOTSON MD Date of Procedure: 07/31/2021 [facility] Work Phone: Radiologyon 07-31-2021 US Guidance for fine needle aspiration of Liver Normal -[facility] [address] [facility] Work Phone: [facility] Surgical Pathology Depar tmenton 07-31-2021 [facility] Surgical Pathology Department Name ANGIE FRITZ Pathologist: [...] toto in 2 cassettes A1 and A2. [facility]/07/31/2021 The assays/tests were performed with appropriate positive and negative controls which stained appropriately. [facility] Department of Pathology [address] [place] [address] [facility] Comment on above: Performed By: #### U [facility] #### [facility] Surgical Pathology Department [address] [place] [address] US BIOPSY LIVER PERon 2020 US BIOPSY LIVER PER Patient Name: ANGIE FRITZ STUDY: US BIOPSY LIVER PER; 07/31/2021 1:03 pm PROCEDURE: ULTRASOUND GUIDED NON TARGETED RANDOM BIOPSY OF THE LIVER INDICATION: Hemochromatosis; here for tissue diagnosis COMPARISON: CT-guided liver biopsy 05/08/2021. ACCESSION NUMBER(S): [id number] ORDERING CLINICIAN: ENOCH HERRMANN PROPERTY OFFICER: Dr. Roland (attending) Dee Lopes MD MEDICATIONS: [...] as stated. This study was interpreted at [place], [place]. Electronically signed by: SANDY ROLAND MD [facility] CBC AUTO DIFFon 07-28-2021 BASO # 0.0 103/ul Normal 0.0-0.1 [facility] Comment on above: Performed By: #### T 7, LIPA, TSH, AMADOU, CMP #### [facility] [address] [address] [address] Krystle Heaton Basophils/100 WBC (Bld) 0.6 % Normal 0.2-2.0 [facility] Comment on above: Performed By: #### T 7, LIPA, TSH, AMADOU, CMP #### [facility] [address] [address] [address] Krystle Heaton EO # 0.2 103/ul Normal 0.0-0.7 [facility] Comment on above: Performed By: #### T 7, LIPA, TSH, AMADOU, CMP #### [facility] [address] [place] [address] Dr. Krystle Heaton Eosinophils/100 WBC (Bld) 3.6 % Normal 0.9-7.0 [facility] Comment on above: Performed By: #### T 7, LIPA, TSH, AMADOU, CMP #### [facility] [address] [place] [address] Dr. Krystle Heaton Erythrocyte distribution width (RBC) [Ratio] 14.7 % Normal 11.0-15.0 [facility] Comment on above: Performed By: #### T 7, LIPA, TSH, AMADOU, CMP #### [facility] [address] [place] [address] Dr. Krystle Heaton Hematocrit (Bld) [Volume fraction] 37.4 % Critically low 42.0-54.0 [facility] Comment on above: Performed By: #### T 7, LIPA, TSH, AMADOU, CMP #### [facility] [address] [place] [address] Dr. Krystle Heaton Hemoglobin (Bld) [Mass/Vol] 11.5 g/dL Critically low 14.0-18.0 [facility] Comment on above: Performed By: #### T 7, LIPA, TSH, AMADOU, CMP #### [facility] [address] [place] [address] Dr. Krystle Heaton IG # 0.02 10e3/ul Normal 0.00-0.03 [facility] Comment on above: Performed By: #### T 7, LIPA, TSH, AMADOU, CMP #### [facility] [address] [place] [address] Dr. Krystle Heaton IG % 0.4 % Normal 0.0-0.5 [facility] Comment on above: Performed By: #### T 7, LIPA, TSH, AMADOU, CMP #### [facility] [address] [place] [address] Dr. Krystle Heaton LYMPH # 1.5 103/ul Normal 1.2-3.8 [facility] Comment on above: Performed By: #### T 7, LIPA, TSH, AMADOU, CMP #### [facility] [address] [place] [address] Dr. Krystle Heaton Lymphocytes/100 WBC (Bld) 31.3 % Normal 20.5-60.0 [facility] Comment on above: Performed By: #### T 7, LIPA, TSH, AMADOU, CMP #### [facility] [address] [place] [address] Dr. Krystle Heaton MANUAL DIFF REQ NO Normal [facility] Comment on above: Performed By: #### T 7, LIPA, TSH, AMADOU, CMP #### [facility] [address] [place] [address] Dr. Krystle Heaton MCH (RBC) [Entitic mass] 27.8 pg Normal 25.9-34.0 [facility] Comment on above: Performed By: #### T 7, LIPA, TSH, AMADOU, CMP #### [facility] [address] [place] [address] Dr. Krystle Heaton MCHC (RBC) [Mass/Vol] 30.7 g/dL Normal 29.9-35.2 [facility] Comment on above: Performed By: #### T 7, LIPA, TSH, AMADOU, CMP #### [facility] [address] [place] [address] Dr. Krystle Heaton MCV (RBC) [Entitic vol] 90.6 fL Normal 80.0-94.0 [facility] Comment on above: Performed By: #### T 7, LIPA, TSH, AMADOU, CMP #### [facility] [address] [place] [address] Dr. Krystle Heaton MONO # 0.6 103/ul Normal 0.3-0.8 [facility] Comment on above: Performed By: #### T 7, LIPA, TSH, AMADOU, CMP #### [facility] [address] [place] [address] Dr. Krystle Heaton Monocytes/100 WBC (Bld) 12.8 % Critically high 1.7-12.0 [facility] Comment on above: Performed By: #### T 7, LIPA, TSH, AMADOU, CMP #### [facility] [address] [place] [address] Dr. Krystle Heaton NEUT # 2.4 103/ul Normal 1.4-6.5 [facility] Comment on above: Performed By: #### T 7, LIPA, TSH, AMADOU, CMP #### [facility] [address] [place] [address] Dr. Krystle Heaton Neutrophils/100 WBC (Bld) 51.3 % Normal 43.0-75.0 [facility] Comment on above: Performed By: #### T 7, LIPA, TSH, AMADOU, CMP #### [facility] [address] [place] [address] Dr. Krystle Heaton Platelet mean volume (Bld) [Entitic vol] 11.4 fL Normal 9.5-13.5 [facility] Comment on above: Performed By: #### T 7, LIPA, TSH, AMADOU, CMP #### [facility] [address] [place] [address] Dr. Krystle Heaton PLT 190 103/ul Normal 150-450 [facility] Comment on above: Performed By: #### T 7, LIPA, TSH, AMADOU, CMP #### [facility] [address] [place] [address] Dr. Krystle Heatno RBC 4.13 106/ul Critically low 4.70-6.10 [facility] Comment on above: Performed By: #### T 7, LIPA, TSH, AMADOU, CMP #### [facility] [address] [place] [address] Dr. Krystle Heaton WBC 4.7 103/ul Normal 4.0-11.0 [facility] Comment on above: Performed By: #### T 7, LIPA, TSH, AMADOU, CMP #### [facility] [address] [place] [address] Dr. Krystle Heaton PROTIMEon 07-28-2021 INR Coag (PPP) [Relative time] 1.00 {INR} Normal [facility] Comment on above: Performed By: #### H BSANS #### [facility] [address] [place] [address] Billy Devlin INR GUIDELINES SEE BELOW Normal [facility] Comment on above: Result Comment: MOUNA RED INR: 2.0 - 3.0 CONDITIONS NOT LISTED BELOW 2.5 - 3.5 FOR PROSTHETIC HEART VALVE REPLACEMENT 2.5 - 3.5 RECURRENT THROMBOSIS Performed By: #### H ANJUMNS #### [facility] [address] [place] [address] Billy Devlin PT Coag (PPP) [Time] 10.8 s Normal 9.0-11.6 [facility] Comment on above: Performed By: #### H BSASUZANNE #### [facility] [address] [place] [address] Billy Devlin CBC AUTO DIFFon 07-09-2021 BASO # 0.0 103/ul Normal 0.0-0.1 [facility] Comment on above: Performed By: #### T 7, LIPA, TSH, AMADOU, CMP #### [facility] [address] [place] [address] Dr. Krystle Heaton Basophils/100 WBC (Bld) 0.4 % Normal 0.2-2.0 [facility] Comment on above: Performed By: #### T 7, LIPA, TSH, AMADOU, CMP #### [facility] [address] [place] [address] Dr. Krystle Heaton EO # 0.2 103/ul Normal 0.0-0.7 [facility] Comment on above: Performed By: #### T 7, LIPA, TSH, AMADOU, CMP #### [facility] [address] [place] [address] Dr. Krystle Heaton Eosinophils/100 WBC (Bld) 2.9 % Normal 0.9-7.0 [facility] Comment on above: Performed By: #### T 7, LIPA, TSH, AMADOU, CMP #### [facility] [address] [place] [address] Dr. Krystle Heaton Erythrocyte distribution width (RBC) [Ratio] 13.9 % Normal 11.0-15.0 [facility] Comment on above: Performed By: #### T 7, LIPA, TSH, AMADOU, CMP #### [facility] [address] [place] [address] Dr. Krystle Heaton Hematocrit (Bld) [Volume fraction] 40.4 % Critically low 42.0-54.0 [facility] Comment on above: Performed By: #### T 7, LIPA, TSH, AMADOU, CMP #### [facility] [address] [place] [address] Dr. Krystle Heaton Hemoglobin (Bld) [Mass/Vol] 12.3 g/dL Critically low 14.0-18.0 [facility] Comment on above: Performed By: #### T 7, LIPA, TSH, AMADOU, CMP #### [facility] [address] [place] [address] Dr. Krystle Heaton IG # 0.03 10e3/ul Normal 0.00-0.03 [facility] Comment on above: Performed By: #### T 7, LIPA, TSH, AMADOU, CMP #### [facility] [address] [place] [address] Dr. Krystle Heaton IG % 0.6 % Critically high 0.0-0.5 [facility] Comment on above: Performed By: #### T 7, LIPA, TSH, AMADOU, CMP #### [facility] [address] [place] [address] Dr. Krystle Heaton LYMPH # 1.5 103/ul Normal 1.2-3.8 [facility] Comment on above: Performed By: #### T 7, LIPA, TSH, AMADOU, CMP #### [facility] [address] [place] [address] Dr. Krystle Heaton Lymphocytes/100 WBC (Bld) 28.3 % Normal 20.5-60.0 [facility] Comment on above: Performed By: #### T 7, LIPA, TSH, AMADOU, CMP #### [facility] [address] [place] [address] Dr. Krystle Heaton MANUAL DIFF REQ NO Normal [facility] Comment on above: Performed By: #### T 7, LIPA, TSH, AMADOU, CMP #### [facility] [address] [place] [address] Dr. Krystle Heaton MCH (RBC) [Entitic mass] 28.3 pg Normal 25.9-34.0 [facility] Comment on above: Performed By: #### T 7, LIPA, TSH, AMADOU, CMP #### [facility] [address] [place] [address] Dr. Krystle Heaton MCHC (RBC) [Mass/Vol] 30.4 g/dL Normal 29.9-35.2 [facility] Comment on above: Performed By: #### T 7, LIPA, TSH, AMADOU, CMP #### [facility] [address] [place] [address] Dr. Krystle Heaton MCV (RBC) [Entitic vol] 93.1 fL Normal 80.0-94.0 [facility] Comment on above: Performed By: #### T 7, LIPA, TSH, AMADOU, CMP #### [facility] [address] [place] [address] Dr. Krystle Heaton MONO # 0.7 103/ul Normal 0.3-0.8 [facility] Comment on above: Performed By: #### T 7, LIPA, TSH, AMADOU, CMP #### [facility] [address] [place] [address] Dr. Krystle Heaton Monocytes/100 WBC (Bld) 13.4 % Critically high 1.7-12.0 [facility] Comment on above: Performed By: #### T 7, LIPA, TSH, AMADOU, CMP #### [facility] [address] [place] [address] Dr. Krystle Heaton NEUT # 2.8 103/ul Normal 1.4-6.5 [facility] Comment on above: Performed By: #### T 7, LIPA, TSH, AMADOU, CMP #### [facility] [address] [place] [address] Dr. Krystle Heaton Neutrophils/100 WBC (Bld) 54.4 % Normal 43.0-75.0 [facility] Comment on above: Performed By: #### T 7, LIPA, TSH, AMADOU, CMP #### [facility] [address] [address] [address] Krystle Heaton Platelet mean volume (Bld) [Entitic vol] 11.7 fL Normal 9.5-13.5 [facility] Comment on above: Performed By: #### T 7, LIPA, TSH, AMADOU, CMP #### [facility] [address] [place] [address] Dr. Krystle Heaton PLT 192 103/ul Normal 150-450 [facility] Comment on above: Performed By: #### T 7, LIPA, TSH, AMADOU, CMP #### [facility] [address] [place] [address] Dr. Krystle Heaton RBC 4.34 106/ul Critically low 4.70-6.10 [facility] Comment on above: Performed By: #### T 7, LIPA, TSH, AMADOU, CMP #### [facility] [address] [place] [address] Dr. Krystle Heaton WBC 5.2 103/ul Normal 4.0-11.0 [facility] Comment on above: Performed By: #### T 7, LIPA, TSH, AMADOU, CMP #### [facility] [address] [place] [address] Dr. Krystle Heaton FERRITINon 07-09-2021 Ferritin [Mass/Vol] 122.0 ng/mL Normal 17.9-464.0 [facility] Comment on above: Performed By: #### T 7, LIPA, TSH, AMADOU, CMP #### [facility] [address] [place] [address] Dr. Krystle Heaton CBC AUTO DIFFon 06-11-2021 BASO # 0.0 103/ul Normal 0.0-0.1 [facility] Comment on above: Performed By: #### T 7, LIPA, TSH, AMADOU, CMP #### [facility] [address] [place] [address] Dr. Krystle Heaton Basophils/100 WBC (Bld) 0.7 % Normal 0.2-2.0 [facility] Comment on above: Performed By: #### T 7, LIPA, TSH, AMADOU, CMP #### [facility] [address] [place] [address] Dr. Krystle Heaton EO # 0.2 103/ul Normal 0.0-0.7 The [facility] Comment on above: Performed By: #### T 7, LIPA, TSH, AMADOU, CMP #### [facility] [address] [place] [address] Dr. Krystle Heaton Eosinophils/100 WBC (Bld) 3.9 % Normal 0.9-7.0 [facility] Comment on above: Performed By: #### T 7, LIPA, TSH, AMADOU, CMP #### [facility] [address] [place] [address] Dr. Krystle Heaton Erythrocyte distribution width (RBC) [Ratio] 13.0 % Normal 11.0-15.0 [facility] Comment on above: Performed By: #### T 7, LIPA, TSH, AMADOU, CMP #### [facility] [address] [place] [address] Dr. Krystle Heaton Hematocrit (Bld) [Volume fraction] 39.0 % Critically low 42.0-54.0 [facility] Comment on above: Performed By: #### T 7, LIPA, TSH, AMADOU, CMP #### [facility] [address] [place] [address] Dr. Krystle Heaton Hemoglobin (Bld) [Mass/Vol] 12.4 g/dL Critically low 14.0-18.0 [facility] Comment on above: Performed By: #### T 7, LIPA, TSH, AMADOU, CMP #### [facility] [address] [place] [address] Dr. Krystle Heaton IG # 0.01 10e3/ul Normal 0.00-0.03 [facility] Comment on above: Performed By: #### T 7, LIPA, TSH, AMADOU, CMP #### [facility] [address] [place] [address] Dr. Krystle Heaton IG % 0.2 % Normal 0.0-0.5 [facility] Comment on above: Performed By: #### T 7, LIPA, TSH, AMADOU, CMP #### [facility] [address] [place] [address] Dr. Krystle Heaton LYMPH # 1.0 103/ul Critically low 1.2-3.8 The [facility] Comment on above: Performed By: #### T 7, LIPA, TSH, AMADOU, CMP #### [facility] [address] [place] [address] Dr. Krystle Heaton Lymphocytes/100 WBC (Bld) 23.1 % Normal 20.5-60.0 The [facility] Comment on above: Performed By: #### T 7, LIPA, TSH, AMADOU, CMP #### [facility] [address] [place] [address] Dr. Krystle Heaton MANUAL DIFF REQ NO Normal The [facility] Comment on above: Performed By: #### T 7, LIPA, TSH, AMADOU, CMP #### [facility] [address] [place] [address] Dr. Krystle Heaton MCH (RBC) [Entitic mass] 31.2 pg Normal 25.9-34.0 [facility] Comment on above: Performed By: #### T 7, LIPA, TSH, AMADOU, CMP #### [facility] [address] [place] [address] Dr. Krystle Heaton MCHC (RBC) [Mass/Vol] 31.8 g/dL Normal 29.9-35.2 The [facility] Comment on above: Performed By: #### T 7, LIPA, TSH, AMADOU, CMP #### [facility] [address] [place] [address] Dr. Krystle Heaton MCV (RBC) [Entitic vol] 98.2 fL Critically high 80.0-94.0 [facility] Comment on above: Performed By: #### T 7, LIPA, TSH, AMADOU, CMP #### [facility] [address] [place] [address] Dr. Krystle Heaton MONO # 0.5 103/ul Normal 0.3-0.8 [facility] Comment on above: Performed By: #### T 7, LIPA, TSH, AMADOU, CMP #### [facility] [address] [place] [address] Dr. Krystle Heaton Monocytes/100 WBC (Bld) 10.4 % Normal 1.7-12.0 [facility] Comment on above: Performed By: #### T 7, LIPA, TSH, AMADOU, CMP #### [facility] [address] [place] [address] Dr. Krystle Heaton NEUT # 2.7 103/ul Normal 1.4-6.5 [facility] Comment on above: Performed By: #### T 7, LIPA, TSH, AMADOU, CMP #### [facility] [address] [place] [address] Dr. Krystle Heaton Neutrophils/100 WBC (Bld) 61.7 % Normal 43.0-75.0 [facility] Comment on above: Performed By: #### T 7, LIPA, TSH, AMADOU, CMP #### [facility] [address] [place] [address] Dr. Krystle Heaton Platelet mean volume (Bld) [Entitic vol] 10.8 fL Normal 9.5-13.5 [facility] Comment on above: Performed By: #### T 7, LIPA, TSH, AMADOU, CMP #### [facility] [address] [place] [address] Dr. Krystle Heaton PLT 197 103/ul Normal 150-450 [facility] Comment on above: Performed By: #### T 7, LIPA, TSH, AMADOU, CMP #### [facility] [address] [place] [address] Dr. Krystle Heaton RBC 3.97 106/ul Critically low 4.70-6.10 The [facility] Comment on above: Performed By: #### T 7, LIPA, TSH, AMADOU, CMP #### [facility] [address] [place] [address] Dr. Krystle Heaton WBC 4.3 103/ul Normal 4.0-11.0 The [facility] Comment on above: Performed By: #### T 7, LIPA, TSH, AMADOU, CMP #### [facility] [address] [place] [address] Dr. Krystle Heaton FERRITINon 06-11-2021 Ferritin [Mass/Vol] 107.0 ng/mL Normal 17.9-464.0 [facility] Comment on above: Performed By: #### T 7, LIPA, TSH, AMADOU, CMP #### [facility] [address] [place] [address] Dr. Krystle Heaton CBC AUTO DIFFon 05-28-2021 BASO # 0.0 103/ul Normal 0.0-0.1 [facility] Comment on above: Performed By: #### T 7, LIPA, TSH, AMADOU, CMP #### [facility] [address] [place] [address] Dr. Krystle Heaton Basophils/100 WBC (Bld) 0.5 % Normal 0.2-2.0 [facility] Comment on above: Performed By: #### T 7, LIPA, TSH, AMADOU, CMP #### [facility] [address] [place] [address] Dr. Krystle Heaton EO # 0.1 103/ul Normal 0.0-0.7 [facility] Comment on above: Performed By: #### T 7, LIPA, TSH, AMADOU, CMP #### [facility] [address] [place] [address] Dr. Krystle Heaton Eosinophils/100 WBC (Bld) 3.5 % Normal 0.9-7.0 [facility] Comment on above: Performed By: #### T 7, LIPA, TSH, AMADOU, CMP #### [facility] [address] [place] [address] Dr. Krystle Heaton Erythrocyte distribution width (RBC) [Ratio] 12.6 % Normal 11.0-15.0 [facility] Comment on above: Performed By: #### T 7, LIPA, TSH, AMADOU, CMP #### [facility] [address] [place] [address] Dr. Krystle Heaton Hematocrit (Bld) [Volume fraction] 39.8 % Critically low 42.0-54.0 [facility] Comment on above: Performed By: #### T 7, LIPA, TSH, AMADOU, CMP #### [facility] [address] [place] [address] Dr. Krystle Heaton Hemoglobin (Bld) [Mass/Vol] 12.5 g/dL Critically low 14.0-18.0 [facility] Comment on above: Performed By: #### T 7, LIPA, TSH, AMADOU, CMP #### [facility] [address] [place] [address] Dr. Krystle Heaton IG # 0.00 10e3/ul Normal 0.00-0.03 [facility] Comment on above: Performed By: #### T 7, LIPA, TSH, AMADOU, CMP #### [facility] [address] [place] [address] Dr. Krystle Heaton IG % 0.0 % Normal 0.0-0.5 [facility] Comment on above: Performed By: #### T 7, LIPA, TSH, AMADOU, CMP #### [facility] [address] [place] [address] Dr. Krystle Heaton LYMPH # 1.2 103/ul Normal 1.2-3.8 [facility] Comment on above: Performed By: #### T 7, LIPA, TSH, AMADOU, CMP #### [facility] [address] [place] [address] Dr. Krystle Heaton Lymphocytes/100 WBC (Bld) 32.7 % Normal 20.5-60.0 [facility] Comment on above: Performed By: #### T 7, LIPA, TSH, AMADOU, CMP #### [facility] [address] [place] [address] Dr. Krystle Heaton MANUAL DIFF REQ NO Normal [facility] Comment on above: Performed By: #### T 7, LIPA, TSH, AMADOU, CMP #### [facility] [address] [place] [address] Dr. Krystle Heaton MCH (RBC) [Entitic mass] 32.1 pg Normal 25.9-34.0 [facility] Comment on above: Performed By: #### T 7, LIPA, TSH, AMADOU, CMP #### [facility] [address] [place] [address] Dr. Krystle Heaton MCHC (RBC) [Mass/Vol] 31.4 g/dL Normal 29.9-35.2 [facility] Comment on above: Performed By: #### T 7, LIPA, TSH, AMADOU, CMP #### [facility] [address] [place] [address] Dr. Krystle Heaton MCV (RBC) [Entitic vol] 102.3 fL Critically high 80.0-94.0 [facility] Comment on above: Performed By: #### T 7, LIPA, TSH, AMADOU, CMP #### [facility] [address] [place] [address] Dr. Krystle Heaton MONO # 0.4 103/ul Normal 0.3-0.8 The [facility] Comment on above: Performed By: #### T 7, LIPA, TSH, AMADOU, CMP #### [facility] [address] [place] [address] Dr. Krystle Heaton Monocytes/100 WBC (Bld) 10.5 % Normal 1.7-12.0 [facility] Comment on above: Performed By: #### T 7, LIPA, TSH, AMADOU, CMP #### [facility] [address] [place] [address] Dr. Krystle Heaton NEUT # 2.0 103/ul Normal 1.4-6.5 [facility] Comment on above: Performed By: #### T 7, LIPA, TSH, AMADOU, CMP #### [facility] [address] [place] [address] Dr. Krystle Heaton Neutrophils/100 WBC (Bld) 52.8 % Normal 43.0-75.0 [facility] Comment on above: Performed By: #### T 7, LIPA, TSH, AMADOU, CMP #### [facility] [address] [place] [address] Dr. Krystle Heaton Platelet mean volume (Bld) [Entitic vol] 10.7 fL Normal 9.5-13.5 [facility] Comment on above: Performed By: #### T 7, LIPA, TSH, AMADOU, CMP #### [facility] [address] [address] [address] Krystle Heaton PLT 227 103/ul Normal 150-450 [facility] Comment on above: Performed By: #### T 7, LIPA, TSH, AMADOU, CMP #### [facility] [address] [address] [address] Krystle Heaton RBC 3.89 106/ul Critically low 4.70-6.10 [facility] Comment on above: Performed By: #### T 7, LIPA, TSH, AMADOU, CMP #### [facility] [address] [address] [address] Krystle Heaton WBC 3.7 103/ul Critically low 4.0-11.0 [facility] Comment on above: Performed By: #### T 7, LIPA, TSH, AMADOU, CMP #### [facility] [address] [place] [address] Dr. Krystle Heaton FERRITINon 05-28-2021 Ferritin [Mass/Vol] 169.0 ng/mL Normal 17.9-464.0 [facility] Comment on above: Performed By: #### F ERR #### [facility] [address] [place] [address] Dr. Krystle Heaton METHYLMALONIC ACID (MMA)on 0 05-18-2021 Disclaimer: Comment Normal [facility] Comment on above: Result Comment: This test was developed and its performance characteristics determined by [facility]. It has not been cleared or approved by the Food and Drug Administration. Performed By: #### T 7, LIPA, TSH, AMADOU, CMP #### [facility] [address] [place] [address] Dr. Krystle Heaton Methylmalonic Acid, Serum 124 nmol/L Normal 0-378 [facility] Comment on above: Performed By: #### T 7, LIPA, TSH, AMADOU, CMP #### [facility] [address] [place] [address] Dr. Krystle Heaton HOMOCYSTEINEon 05-16-2021 Homocyst(e)ine, Plasma 19.5 umol/L Critically high 0.0-14.5 [facility] Comment on above: Performed By: #### T 7, LIPA, TSH, AMADOU, CMP #### [facility] [address] [place] [address] Dr. Krystle Heaton CBC AUTO DIFFon 05-15-2021 BASO # 0.0 103/ul Normal 0.0-0.1 [facility] Comment on above: Performed By: #### T 7, LIPA, TSH, AMADOU, CMP #### [facility] [address] [place] [address] Dr. Krystle Heaton Basophils/100 WBC (Bld) 0.5 % Normal 0.2-2.0 [facility] Comment on above: Performed By: #### T 7, LIPA, TSH, AMADOU, CMP #### [facility] [address] [place] [address] Dr. Krystle Heaton EO # 0.1 103/ul Normal 0.0-0.7 [facility] Comment on above: Performed By: #### T 7, LIPA, TSH, AMADOU, CMP #### [facility] [address] [place] [address] Dr. Krystle Heaton Eosinophils/100 WBC (Bld) 1.8 % Normal 0.9-7.0 [facility] Comment on above: Performed By: #### T 7, LIPA, TSH, AMADOU, CMP #### [facility] [address] [place] [address] Dr. Krystle Heaton Erythrocyte distribution width (RBC) [Ratio] 12.7 % Normal 11.0-15.0 [facility] Comment on above: Performed By: #### T 7, LIPA, TSH, AMADOU, CMP #### [facility] [address] [place] [address] Dr. Krystle Heaton Hematocrit (Bld) [Volume fraction] 39.4 % Critically low 42.0-54.0 [facility] Comment on above: Performed By: #### T 7, LIPA, TSH, AMADOU, CMP #### [facility] [address] [place] [address] Dr. Krystle Heaton Hemoglobin (Bld) [Mass/Vol] 12.9 g/dL Critically low 14.0-18.0 [facility] Comment on above: Performed By: #### T 7, LIPA, TSH, AMADOU, CMP #### [facility] [address] [place] [address] Dr. Krystle Heaton IG # 0.02 10e3/ul Normal 0.00-0.03 [facility] Comment on above: Performed By: #### T 7, LIPA, TSH, AMADOU, CMP #### [facility] [address] [place] [address] Dr. Krystle Heaton IG % 0.4 % Normal 0.0-0.5 [facility] Comment on above: Performed By: #### T 7, LIPA, TSH, AMADOU, CMP #### [facility] [address] [place] [address] Dr. Krystle Heaton LYMPH # 1.4 103/ul Normal 1.2-3.8 [facility] Comment on above: Performed By: #### T 7, LIPA, TSH, AMADOU, CMP #### [facility] [address] [place] [address] Dr. Krystle Heaton Lymphocytes/100 WBC (Bld) 24.9 % Normal 20.5-60.0 [facility] Comment on above: Performed By: #### T 7, LIPA, TSH, AMADOU, CMP #### [facility] [address] [place] [address] Dr. Krystle Heaton MANUAL DIFF REQ NO Normal [facility] Comment on above: Performed By: #### T 7, LIPA, TSH, AMADOU, CMP #### [facility] [address] [place] [address] Dr. Krystle Heaton MCH (RBC) [Entitic mass] 34.0 pg Normal 25.9-34.0 [facility] Comment on above: Performed By: #### T 7, LIPA, TSH, AMADOU, CMP #### [facility] [address] [place] [address] Dr. Krystle Heaton MCHC (RBC) [Mass/Vol] 32.7 g/dL Normal 29.9-35.2 [facility] Comment on above: Performed By: #### T 7, LIPA, TSH, AMADOU, CMP #### [facility] [address] [place] [address] Dr. Krystle Heaton MCV (RBC) [Entitic vol] 104.0 fL Critically high 80.0-94.0 [facility] Comment on above: Performed By: #### T 7, LIPA, TSH, AMADOU, CMP #### [facility] [address] [place] [address] Dr. Krystle Heaton MONO # 0.7 103/ul Normal 0.3-0.8 [facility] Comment on above: Performed By: #### T 7, LIPA, TSH, AMADOU, CMP #### [facility] [address] [place] [address] Dr. Krystle Heaton Monocytes/100 WBC (Bld) 11.8 % Normal 1.7-12.0 [facility] Comment on above: Performed By: #### T 7, LIPA, TSH, AMADOU, CMP #### [facility] [address] [place] [address] Dr. Krystle Heaton NEUT # 3.3 103/ul Normal 1.4-6.5 [facility] Comment on above: Performed By: #### T 7, LIPA, TSH, AMADOU, CMP #### [facility] [address] [place] [address] Dr. Krystle Heaton Neutrophils/100 WBC (Bld) 60.6 % Normal 43.0-75.0 [facility] Comment on above: Performed By: #### T 7, LIPA, TSH, AMADOU, CMP #### [facility] [address] [place] [address] Dr. Krystle Heaton Platelet mean volume (Bld) [Entitic vol] 10.2 fL Normal 9.5-13.5 [facility] Comment on above: Performed By: #### T 7, LIPA, TSH, AMADOU, CMP #### [facility] [address] [place] [address] Dr. Krystle Heaton PLT 196 103/ul Normal 150-450 [facility] Comment on above: Performed By: #### T 7, LIPA, TSH, AMADOU, CMP #### [facility] [address] [place] [address] Dr. Krystle Heaton RBC 3.79 106/ul Critically low 4.70-6.10 [facility] Comment on above: Performed By: #### T 7, LIPA, TSH, AMADOU, CMP #### [facility] [address] [place] [address] Dr. Krystle Heaton WBC 5.5 103/ul Normal 4.0-11.0 [facility] Comment on above: Performed By: #### T 7, LIPA, TSH, AMADOU, CMP #### [facility] [address] [place] [address] Dr. Krystle Heaton FERRITINon 05-15-2021 Ferritin [Mass/Vol] 302.0 ng/mL Normal 17.9-464.0 [facility] Comment on above: Performed By: #### C BC #### [facility] [address] [place] [address] Billy Devlin PROF 14(COMP METB)on 021 Albumin [Mass/Vol] 3.5 g/dL Normal 3.5-5.0 [facility] Comment on above: Performed By: #### C BC #### [facility] [address] [place], [place] [id number] Billy Devlin Albumin/Globulin [Mass ratio] 1.0 {ratio} Normal [facility] Comment on above: Performed By: #### C BC #### [facility] [address] [place], [place] [id number] Billy Devlin ALP [Catalytic activity/Vol] 71 U/L Normal 38-126 [facility] Comment on above: Performed By: #### C BC #### [facility] [address] [place], [place] [id number] Billy Quita ALT [Catalytic activity/Vol] 40 U/L Normal 21-72 [facility] Comment on above: Performed By: #### C BC #### [facility] [address] [place], [place] [id number] Billy Quita Anion gap [Moles/Vol] 17.5 mmol/L Normal [facility] Comment on above: Performed By: #### C BC #### [facility] [address] [place], [place] [id number] Billy Quita AST [Catalytic activity/Vol] 43 U/L Normal 17-59 [facility] Comment on above: Performed By: #### C BC #### [facility] [address] [place] [address] Billy Quita Bilirubin [Mass/Vol] 0.3 mg/dL Normal 0.2-1.3 [facility] Comment on above: Performed By: #### C BC #### [facility] [address] [place] [address] Billy Quita Calcium [Mass/Vol] 8.8 mg/dL Normal 8.4-10.2 [facility] Comment on above: Performed By: #### C BC #### [facility] [address] [place] [address] Billy Quita Chloride [Moles/Vol] 101 mmol/L Normal 98-107 [facility] Comment on above: Performed By: #### C BC #### [facility] [address] [place] [address] Billy Quita CO2 [Moles/Vol] 26.6 mmol/L Normal 22.0-30.0 [facility] Comment on above: Performed By: #### C BC #### [facility] [address] [place] [address] Billy Quita Creatinine [Mass/Vol] 0.88 mg/dL Normal 0.66-1.25 [facility] Comment on above: Performed By: #### C BC #### [facility] [address] [place], [place] [id number] Billy Quita EGFR-AF CENTRAL AFRICAN >60 Normal >=60 [facility] Comment on above: Performed By: #### C BC #### [facility] [address] [place], [place] [id number] Billy Quita EGFR-NON AF CENTRAL AFR[place] >60 Normal >=60 [facility] Comment on above: Performed By: #### C BC #### [facility] [address] [place], [place] [address] Billy Quita Globulin (S) [Mass/Vol] 3.6 g/dL Normal [facility] Comment on above: Performed By: #### C BC #### [facility] [address] [place], [place] [address] Billy Quita Glucose [Mass/Vol] 101 mg/dL Normal 74-106 [facility] Comment on above: Performed By: #### C BC #### [facility] [address] [place], [place] [address] Billy Quita Potassium [Moles/Vol] 4.1 mmol/L Normal 3.4-5.0 [facility] Comment on above: Performed By: #### C BC #### [facility] [address] [place], [place] [address] Billy Quita Protein [Mass/Vol] 7.1 g/dL Normal 6.1-8.2 [facility] Comment on above: Performed By: #### C BC #### [facility] [facility] [address] [place], [place] [address] Billy Quita Sodium [Moles/Vol] 141 mmol/L Normal 137-145 [facility] Comment on above: Performed By: #### C BC #### [facility] [address] [place], [place] [address] Billy Quita Urea nitrogen [Mass/Vol] 11.0 mg/dL Normal 9.0-20.0 [facility] Comment on above: Performed By: #### C BC #### [facility] [address] [place], [place] [address] Billy Quita Urea nitrogen/Creatinine [Mass ratio] 12.5 mg/mg Normal [facility] Comment on above: Performed By: #### C BC #### [facility] [address] [place], [place] [address] Billy Quita IN BIOPSY LIVER PERCUTANEOUS NEEDLEon 05-08-2021 IN BIOPSY LIVER PERCUTANEOUS NEEDLE Patient Name: ANGIE FRITZ STUDY: IN BIOPSY LIVER PERCUTANEOUS NEEDLE; ; 05/08/2021 11:46 am INDICATION: None. COMPARISON: None. ACCESSION NUMBER(S): [id number] ORDERING CLINICIAN: ENOCH HERRMANN TECHNIQUE: CONSENT: The [...] and cap. Additionally, the performing physician and journeyman operator assistant used maximum barrier technique to include [...] were made using an 18 gauge spring-loaded [employer] core biopsy needle. Good core samples were [...] above Electronically signed by: URI BACON MD [facility] Order Reconciliationon 05-08 Order Reconciliation Page 1 [...] a day Normal [facility] Surgical Pathology Depar tmenton 05-08-2021 [facility] Surgical Pathology Department Name ANGIE FRITZ Pathologist: SUSAN BLACK M.D., PhD. Date of Procedure: 05/08/2021 Date Received: 05/08/2021 Date Reported 05/11/2021 Submitting Physician: ENOCH HERRMANN MD Location: [facility] Copy To/Referring/Attending: URI BACON MD Other External [...] positive and negative controls which stained appropriately. [facility] Department of Pathology [address] [place] [address] [facility] Comment on above: Performed By: #### U HCS #### [facility] Surgical Pathology Department [address] [place] [address] CBC AUTO DIFFon 05-04-2021 BASO # 0.0 103/ul Normal 0.0-0.1 [facility] Comment on above: Performed By: #### F ERR #### [facility] [address] [place] [address] Dr. Krystle Heaton Basophils/100 WBC (Bld) 0.5 % Normal 0.2-2.0 [facility] Comment on above: Performed By: #### F ERR #### [facility] [address] [place] [address] Dr. Krystle Heaton EO # 0.1 103/ul Normal 0.0-0.7 [facility] Comment on above: Performed By: #### F ERR #### [facility] [address] [place] [address] Dr. Krystle Heaton Eosinophils/100 WBC (Bld) 2.5 % Normal 0.9-7.0 [facility] Comment on above: Performed By: #### F ERR #### [facility] [address] [place] [address] Dr. Krystle Heaton Erythrocyte distribution width (RBC) [Ratio] 12.5 % Normal 11.0-15.0 [facility] Comment on above: Performed By: #### F ERR #### [facility] [address] [place] [address] Dr. Krystle Heaton Hematocrit (Bld) [Volume fraction] 34.3 % Critically low 42.0-54.0 [facility] Comment on above: Performed By: #### F ERR #### [facility] [address] [place] [address] Dr. Krystle Heaton Hemoglobin (Bld) [Mass/Vol] 11.2 g/dL Critically low 14.0-18.0 [facility] Comment on above: Performed By: #### F ERR #### [facility] [address] [place] [address] Dr. Krystle Heaton IG # 0.01 10e3/ul Normal 0.00-0.03 [facility] Comment on above: Performed By: #### F ERR #### [facility] [address] [place] [address] Dr. Krystle Heaton IG % 0.3 % Normal 0.0-0.5 [facility] Comment on above: Performed By: #### F ERR #### [facility] [address] [place] [address] Dr. Krystle Heaton LYMPH # 1.3 103/ul Normal 1.2-3.8 The [facility] Comment on above: Performed By: #### F ERR #### [facility] [address] [place] [address] Dr. Krystle Heaton Lymphocytes/100 WBC (Bld) 33.3 % Normal 20.5-60.0 [facility] Comment on above: Performed By: #### F ERR #### [facility] [address] [place] [address] Dr. Krystle Heaton MANUAL DIFF REQ NO Normal [facility] Comment on above: Performed By: #### F ERR #### [facility] [address] [place] [address] Dr. Krystle Heaton MCH (RBC) [Entitic mass] 35.6 pg Critically high 25.9-34.0 [facility] Comment on above: Performed By: #### F ERR #### [facility] [address] [place] [address] Dr. Krystle Heaton MCHC (RBC) [Mass/Vol] 32.7 g/dL Normal 29.9-35.2 [facility] Comment on above: Performed By: #### F ERR #### [facility] [address] [place] [address] Dr. rKystle Heaton MCV (RBC) [Entitic vol] 108.9 fL Critically high 80.0-94.0 [facility] Comment on above: Performed By: #### F ERR #### [facility] [address] [place] [address] Dr. Krystle Heaton MONO # 0.4 103/ul Normal 0.3-0.8 [facility] Comment on above: Performed By: #### F ERR #### [facility] [address] [place] [address] Dr. Krystle Heaton Monocytes/100 WBC (Bld) 10.0 % Normal 1.7-12.0 [facility] Comment on above: Performed By: #### F ERR #### [facility] [address] [place] [address] Dr. Krystle Heaton NEUT # 2.1 103/ul Normal 1.4-6.5 The [facility] Comment on above: Performed By: #### F ERR #### [facility] [address] [place] [address] Dr. Krystle Heaton Neutrophils/100 WBC (Bld) 53.4 % Normal 43.0-75.0 [facility] Comment on above: Performed By: #### F ERR #### [facility] [address] [place] [address] Dr. Krystle Heaton Platelet mean volume (Bld) [Entitic vol] 10.7 fL Normal 9.5-13.5 [facility] Comment on above: Performed By: #### F ERR #### [facility] [address] [place] [address] Dr. Krystle Heaton PLT 174 103/ul Normal 150-450 [facility] Comment on above: Performed By: #### F ERR #### [facility] [address] [place] [address] Dr. Krystle Heaton RBC 3.15 106/ul Critically low 4.70-6.10 [facility] Comment on above: Result Comment: SLID E REVIEWED. 2+ MACROCYTOSIS SEEN Performed By: #### F ERR #### [facility] [address] [place] [address] Dr. Krystle Heaton WBC 4.0 103/ul Normal 4.0-11.0 [facility] Comment on above: Performed By: #### F ERR #### [facility] [address] [place] [address] Dr. Krystle Heaton FERRITINon 05-04-2021 Ferritin [Mass/Vol] 417.0 ng/mL Normal 17.9-464.0 [facility] Comment on above: Performed By: #### T 7, LIPA, TSH, AMADOU, CMP #### [facility] [address] [place] [address] Dr. Krystle Heaton AFP (TUMOR MARKER)on 021 AFP, Serum, Tumor Marker 5.2 ng/mL Normal 0.0-8.3 The [facility] Comment on above: Result Comment: [employer] Electrochemiluminescence Immunoassay (ECLIA) . Values obtained with different assay methods or kits cannot be used interchangeably. Results cannot be interpreted as absolute evidence of the presence or absence of malignant disease. . This test is not interpretable in females. Performed By: #### T 7, LIPA, TSH, AMADOU, CMP #### [facility] [address] [place] [address] Dr. Krystle Heaton [id number] , Serum 132 mg/dL Normal 101-187 [facility] Comment on above: Performed By: #### H BSANS #### [facility] [address] [place] [address] Billy Devlin NE by IFAon 05-02-2021 Antinuclear Antibodies, IFA Negative Normal [facility] Comment on above: Result Comment: Nega tive <1:80 Borderline 1:80 Positive >1:80 Performed By: #### A NAIFA #### [facility] [address] [place] [address] Billy Devlin CERULOPLASMINon 05-02-2021 Ceruloplasmin 27.8 mg/dL Normal 16.0-31.0 [facility] Comment on above: Performed By: #### C BC #### [facility] [address] [place] [address] Billy Devlin HEP A AB TOTALon 05-02-2021 Hep A Ab, Total Negative Normal Negative [facility] Comment on above: Performed By: #### H BSANS #### [facility] [address] [place] [address] Billy Devlin HEP B COREon 05-02-2021 Hep B Core Ab, Tot Negative Normal Negative [facility] Comment on above: Performed By: #### T 7, LIPA, TSH, AMADOU, CMP #### [facility] [address] [place], [place] [id number] Dr. Krystle Heaton HEP B SURFACE ANTIGEN SCREEN on 05-02-2021 HBsAg Screen Negative Normal Negative [facility] Comment on above: Performed By: #### H BSANS #### [facility] [address] [place] [address] Billy Devlin HEPATITIS B SURFACE ANTIBODY , QUANTon 05-02-2021 Hepatitis B Surf AB Quant <3.1 Critically low Immunity>9. 9 [facility] Comment on above: Result Comment: Stat us of Immunity Anti-HBs Level Inconsistent with Immunity 0.0 - 9.9 Consistent with Immunity >9.9 Performed By: #### H BSANS #### [facility] [address] [place] [address] Billy Devlin HEPATITIS C ANTIBODYon 05-02 Hep C Virus Ab <0.1 Normal 0.0-0.9 [facility] [place] [facility] Comment on above: Result Comment: Nega tive: < 0.8 Indeterminate: 0.8 - 0.9 Positive: > 0.9 . The CDC recommends that a positive HCV antibody result be followed up with a HCV Nucleic Acid Amplification test (162831). Performed By: #### T 7, LA, SAVITA, AMADOU, CMP #### [facility] [address] [place] [address] Dr. Krystle Heaton MITICHONDRIAL (M2) ANTIBODYo n 05-02-2021 Mitochondrial (M2) Antibody <20.0 Normal 0.0-20.0 [facility] Comment on above: Result Comment: Nega tive 0.0 - 20.0 Equivocal 20.1 - 24.9 Positive >24.9 . Mitochondrial (M2) Antibodies are found in 90-96% of patients with primary biliary cirrhosis. Performed By: #### F ERR #### [facility] [address] [place] [address] Dr. Krystle Heaton CBC AUTO DIFFon 05-01-2021 BASO # 0.1 103/ul Normal 0.0-0.1 [facility] Comment on above: Performed By: #### C BC #### [facility] [address] [place] [address] Billy Devlin Basophils/100 WBC (Bld) 1.5 % Normal 0.2-2.0 [facility] Comment on above: Performed By: #### C BC #### [facility] [address] [place] [address] Billy Quita EO # 0.1 103/ul Normal 0.0-0.7 [facility] Comment on above: Performed By: #### C BC #### [facility] [address] [place] [address] Billy Quita Eosinophils/100 WBC (Bld) 2.1 % Normal 0.9-7.0 [facility] Comment on above: Performed By: #### C BC #### [facility] [address] [place] [address] Billy Quita Erythrocyte distribution width (RBC) [Ratio] 12.7 % Normal 11.0-15.0 [facility] Comment on above: Performed By: #### C BC #### [facility] [address] [place] [address] Billy Quita Hematocrit (Bld) [Volume fraction] 34.6 % Critically low 42.0-54.0 [facility] Comment on above: Performed By: #### C BC #### [facility] [address] [place] [address] Billy Quita Hemoglobin (Bld) [Mass/Vol] 11.2 g/dL Critically low 14.0-18.0 [facility] Comment on above: Performed By: #### C BC #### [facility] [address] [place] [address] Billy Quita IG # 0.01 10e3/ul Normal 0.00-0.03 [facility] Comment on above: Performed By: #### C BC #### [facility] [address] [place] [address] Billy Quita IG % 0.3 % Normal 0.0-0.5 [facility] Comment on above: Performed By: #### C BC #### [facility] [address] [place] [address] Billy Quita LYMPH # 1.0 103/ul Critically low 1.2-3.8 [facility] Comment on above: Performed By: #### C BC #### [facility] [address] [place] [address] Billy Quita Lymphocytes/100 WBC (Bld) 30.4 % Normal 20.5-60.0 [facility] Comment on above: Performed By: #### C BC #### [facility] [address] [place] [address] Billy Devlin MANUAL DIFF REQ NO Normal [facility] Comment on above: Performed By: #### C BC #### [facility] [address] [place] [address] Billy Devlin MCH (RBC) [Entitic mass] 35.8 pg Critically high 25.9-34.0 [facility] Comment on above: Performed By: #### C BC #### [facility] [address] [place] [address] Billy Devlin MCHC (RBC) [Mass/Vol] 32.4 g/dL Normal 29.9-35.2 [facility] Comment on above: Performed By: #### C BC #### [facility] [address] [place] [address] Billy Devlin MCV (RBC) [Entitic vol] 110.5 fL Critically high 80.0-94.0 [facility] Comment on above: Performed By: #### C BC #### [facility] [address] [place] [address] Billy Devlin MONO # 0.4 103/ul Normal 0.3-0.8 [facility] Comment on above: Performed By: #### C BC #### [facility] [address] [place] [address] Billy Devlin Monocytes/100 WBC (Bld) 11.3 % Normal 1.7-12.0 [facility] Comment on above: Performed By: #### C BC #### [facility] [address] [place] [address] Billy Devlni NEUT # 1.8 103/ul Normal 1.4-6.5 [facility] Comment on above: Performed By: #### C BC #### [facility] [address] [place] [address] Billy Delvin Neutrophils/100 WBC (Bld) 54.4 % Normal 43.0-75.0 [facility] Comment on above: Performed By: #### C BC #### [facility] [address] [place] [address] Billycarrillo Devlin Platelet mean volume (Bld) [Entitic vol] 11.3 fL Normal 9.5-13.5 [facility] Comment on above: Performed By: #### C BC #### [facility] [address] [place], [place] [address] Billycarrillo Deanen PLT 142 103/ul Critically low 150-450 [facility] Comment on above: Performed By: #### C BC #### [facility] [address] [place] [id number] Billy Quita RBC 3.13 106/ul Critically low 4.70-6.10 [facility] Comment on above: Performed By: #### C BC #### [facility] [address] [place] [id number] Billy Quita WBC 3.4 103/ul Critically low 4.0-11.0 [facility] Comment on above: Performed By: #### C BC #### [facility] [address] [place], [place] [id number] Billy Quita LIVER PROFILEon 05-01-2021 Albumin/Globulin [Mass ratio] 1.0 {ratio} Normal [facility] Comment on above: Performed By: #### H BSANS #### [facility] [address] [place], [place] [id number] Billy Quita ALP [Catalytic activity/Vol] 67 U/L Normal 38-126 [facility] Comment on above: Performed By: #### H BSANS #### [facility] [address] [place], [place] [id number] Billy Quita ALT [Catalytic activity/Vol] 52 U/L Normal 21-72 [facility] Comment on above: Performed By: #### H BSANS #### [facility] [address] [place], [place] [id number] Billy Quita AST [Catalytic activity/Vol] 51 U/L Normal 17-59 [facility] Comment on above: Performed By: #### H BSANS #### [facility] [address] [place], [place] [id number] Billy Quita BILI, CONJUGATED 0.2 mg/dL Normal 0.0-0.3 [facility] Comment on above: Performed By: #### H BSANS #### [facility] [address] [place] [address] Billy Quita Bilirubin [Mass/Vol] 0.5 mg/dL Normal 0.2-1.3 [facility] Comment on above: Performed By: #### H BSANS #### [facility] [address] [place] [address] Billy Quita Globulin (S) [Mass/Vol] 3.4 g/dL Normal [facility] Comment on above: Performed By: #### H BSANS #### [facility] [address] [place] [address] Billy Quita Protein [Mass/Vol] 6.9 g/dL Normal 6.1-8.2 [facility] Comment on above: Performed By: #### H BSANS #### [facility] [address] [place] [address] Billy Quita PROTIMEon 05-01-2021 INR Coag (PPP) [Relative time] 0.95 {INR} Normal [facility] Comment on above: Performed By: #### C BC #### [facility] [address] [place] [address] Billy Quita INR GUIDELINES SEE BELOW Normal The [facility] Comment on above: Result Comment: MOUNA RED INR: 2.0 - 3.0 CONDITIONS NOT LISTED BELOW 2.5 - 3.5 FOR PROSTHETIC HEART VALVE REPLACEMENT 2.5 - 3.5 RECURRENT THROMBOSIS Performed By: #### C BC #### [facility] [address] [place] [address] Billy Quita PT Coag (PPP) [Time] 10.4 s Normal 9.0-11.6 [facility] Comment on above: Performed By: #### C BC #### [facility] [address] [place] [address] Billycarrillo Devlin RENAL FUNCTION PANELon 05-01 Albumin [Mass/Vol] 3.5 g/dL Normal 3.5-5.0 [facility] Comment on above: Performed By: #### H BSANS #### [facility] [address] [place] [address] Billy Quita Calcium [Mass/Vol] 8.7 mg/dL Normal 8.4-10.2 [facility] Comment on above: Performed By: #### H BSANS #### [facility] [address] [place] [address] Billy Quita Chloride [Moles/Vol] 104 mmol/L Normal 98-107 [facility] Comment on above: Performed By: #### H BSANS #### [facility] [address] [place] [address] Billy Quita CO2 [Moles/Vol] 25.7 mmol/L Normal 22.0-30.0 [facility] Comment on above: Performed By: #### H BSANS #### [facility] [address] [place] [address] Billy Quita Creatinine [Mass/Vol] 1.01 mg/dL Normal 0.66-1.25 The [facility] Comment on above: Performed By: #### H BSANS #### [facility] [address] [place] [address] Billy Quita EGFR-AF CENTRAL AFRICAN >60 Normal >=60 [facility] Comment on above: Performed By: #### H BSANS #### [facility] [address] [place] [address] Billy Quita EGFR-NON AF CENTRAL AFRICAN >60 Normal >=60 The [facility] Comment on above: Performed By: #### H BSANS #### [facility] [address] [place] [address] Billy Quita Glucose [Mass/Vol] 103 mg/dL Normal 74-106 [facility] Comment on above: Performed By: #### H BSANS #### [facility] [address] [place] [address] Billy Quita Phosphate [Mass/Vol] 3.6 mg/dL Normal 2.5-4.5 [facility] Comment on above: Performed By: #### H BSANS #### [facility] [address] [place] [address] Billy Quita Potassium [Moles/Vol] 4.2 mmol/L Normal 3.4-5.0 [facility] Comment on above: Performed By: #### H BSANS #### [facility] [address] [place] [address] Billy Devlin Sodium [Moles/Vol] 138 mmol/L Normal 137-145 [facility] Comment on above: Performed By: #### H BSANS #### [facility] [address] [place] [address] Billy Devlin Urea nitrogen [Mass/Vol] 7.0 mg/dL Critically low 9.0-20.0 [facility] Comment on above: Performed By: #### H BSANS #### [facility] [address] [place] [address] Billy Devlin CBC AUTO DIFFon 04-27-2021 BASO # 0.0 103/ul Normal 0.0-0.1 [facility] Comment on above: Performed By: #### T 7, LIPA, TSH, AMADOU, CMP #### [facility] [address] [place] [address] Dr. Krystle Heaton Basophils/100 WBC (Bld) 0.9 % Normal 0.2-2.0 [facility] Comment on above: Performed By: #### T 7, LIPA, TSH, AMADOU, CMP #### [facility] [address] [place] [address] Dr. Krystle Heaton EO # 0.1 103/ul Normal 0.0-0.7 [facility] Comment on above: Performed By: #### T 7, LIPA, TSH, AMADOU, CMP #### [facility] [address] [place] [address] Dr. Krystle Heaton Eosinophils/100 WBC (Bld) 2.6 % Normal 0.9-7.0 [facility] Comment on above: Performed By: #### T 7, LIPA, TSH, AMADOU, CMP #### [facility] [address] [place] [address] Dr. Krystle Heaton Erythrocyte distribution width (RBC) [Ratio] 12.4 % Normal 11.0-15.0 [facility] Comment on above: Performed By: #### T 7, LIPA, TSH, AMADOU, CMP #### [facility] [address] [place] [address] Dr. Krystle Heaton Hematocrit (Bld) [Volume fraction] 36.8 % Critically low 42.0-54.0 [facility] Comment on above: Performed By: #### T 7, LIPA, TSH, AMADOU, CMP #### [facility] [address] [place] [address] Dr. Krystle Heaton Hemoglobin (Bld) [Mass/Vol] 12.0 g/dL Critically low 14.0-18.0 [facility] Comment on above: Performed By: #### T 7, LIPA, TSH, AMADOU, CMP #### [facility] [address] [place] [address] Dr. Krystle Heaton IG # 0.02 10e3/ul Normal 0.00-0.03 [facility] Comment on above: Performed By: #### T 7, LIPA, TSH, AMADOU, CMP #### [facility] [address] [place] [address] Dr. Krystle Heaton IG % 0.4 % Normal 0.0-0.5 [facility] Comment on above: Performed By: #### T 7, LIPA, TSH, AMADOU, CMP #### [facility] [address] [place] [address] Dr. Krystle Heaton LYMPH # 1.2 103/ul Normal 1.2-3.8 [facility] Comment on above: Performed By: #### T 7, LIPA, TSH, AMADOU, CMP #### [facility] [address] [place] [address] Dr. Krystle Heaton Lymphocytes/100 WBC (Bld) 26.0 % Normal 20.5-60.0 [facility] Comment on above: Performed By: #### T 7, LIPA, TSH, AMADOU, CMP #### [facility] [address] [place] [address] Dr. Krystle Heaton MANUAL DIFF REQ NO Normal [facility] Comment on above: Performed By: #### T 7, LIPA, TSH, AMADOU, CMP #### [facility] [address] [place] [address] Dr. Krystle Heaton MCH (RBC) [Entitic mass] 36.4 pg Critically high 25.9-34.0 [facility] Comment on above: Performed By: #### T 7, LIPA, TSH, AMADOU, CMP #### [facility] [address] [place] [address] Dr. Krystle Heaton MCHC (RBC) [Mass/Vol] 32.6 g/dL Normal 29.9-35.2 [facility] Comment on above: Performed By: #### T 7, LIPA, TSH, AMADOU, CMP #### [facility] [address] [place] [address] Dr. Krystle Heaton MCV (RBC) [Entitic vol] 111.5 fL Critically high 80.0-94.0 [facility] Comment on above: Performed By: #### T 7, LIPA, TSH, AMADOU, CMP #### [facility] [address] [place] [address] Dr. Krystle Heaton MONO # 0.5 103/ul Normal 0.3-0.8 [facility] Comment on above: Performed By: #### T 7, LIPA, TSH, AMADOU, CMP #### [facility] [address] [place] [address] Dr. Krystle Heaton Monocytes/100 WBC (Bld) 10.1 % Normal 1.7-12.0 [facility] Comment on above: Performed By: #### T 7, LIPA, TSH, AMADOU, CMP #### [facility] [address] [place] [address] Dr. Krystle Heaton NEUT # 2.8 103/ul Normal 1.4-6.5 [facility] Comment on above: Performed By: #### T 7, LIPA, TSH, AMADOU, CMP #### [facility] [address] [place] [address] Dr. Krystle Heaton Neutrophils/100 WBC (Bld) 60.0 % Normal 43.0-75.0 [facility] Comment on above: Performed By: #### T 7, LIPA, TSH, AMADOU, CMP #### [facility] [address] [place] [address] Dr. Krystle Heaton Platelet mean volume (Bld) [Entitic vol] 11.0 fL Normal 9.5-13.5 [facility] Comment on above: Performed By: #### T 7, LIPA, TSH, AMADOU, CMP #### [facility] [address] [place] [address] Dr. Krystle Heaton PLT 140 103/ul Critically low 150-450 [facility] Comment on above: Performed By: #### T 7, LIPA, TSH, AMADOU, CMP #### [facility] [address] [place] [address] Dr. Krystle Heaton RBC 3.30 106/ul Critically low 4.70-6.10 [facility] Comment on above: Performed By: #### T 7, LIPA, TSH, AMADOU, CMP #### [facility] [address] [place] [address] Dr. Krystle Heaton WBC 4.7 103/ul Normal 4.0-11.0 [facility] Comment on above: Performed By: #### T 7, LIPA, TSH, AMADOU, CMP #### [facility] [address] [place] [address] Dr. Krystle Heaton FERRITINon 04-27-2021 Ferritin [Mass/Vol] 845.0 ng/mL Critically high 17.9-464.0 [facility] Comment on above: Performed By: #### F ERR #### [facility] [address] [place] [address] Dr. Krystle Heaton CBC AUTO DIFFon 04-18-2021 BASO # 0.1 103/ul Normal 0.0-0.1 [facility] Comment on above: Performed By: #### T 7, LIPA, TSH, AMADOU, CMP #### [facility] [address] [place] [address] Dr. Krystle Heaton Basophils/100 WBC (Bld) 1.1 % Normal 0.2-2.0 [facility] Comment on above: Performed By: #### T 7, LIPA, TSH, AMADOU, CMP #### [facility] [address] [place] [address] Dr. Krystle Heaton EO # 0.1 103/ul Normal 0.0-0.7 [facility] Comment on above: Performed By: #### T 7, LIPA, TSH, AMADOU, CMP #### [facility] [address] [place] [address] Dr. Krystle Heaton Eosinophils/100 WBC (Bld) 2.2 % Normal 0.9-7.0 [facility] Comment on above: Performed By: #### T 7, LIPA, TSH, AMADOU, CMP #### [facility] [address] [place] [address] Dr. Krytsle Heaton Erythrocyte distribution width (RBC) [Ratio] 13.1 % Normal 11.0-15.0 [facility] Comment on above: Performed By: #### T 7, LIPA, TSH, AMADOU, CMP #### [facility] [address] [place] [address] Dr. Krystle Heaton Hematocrit (Bld) [Volume fraction] 35.2 % Critically low 42.0-54.0 [facility] Comment on above: Performed By: #### T 7, LIPA, TSH, AMADOU, CMP #### [facility] [address] [place] [address] Dr. Krystle Heaton Hemoglobin (Bld) [Mass/Vol] 11.8 g/dL Critically low 14.0-18.0 [facility] Comment on above: Performed By: #### T 7, LIPA, TSH, AMADOU, CMP #### [facility] [address] [place] [address] Dr. Krystle Heaton IG # 0.01 10e3/ul Normal 0.00-0.03 [facility] Comment on above: Performed By: #### T 7, LIPA, TSH, AMADOU, CMP #### [facility] [address] [place] [address] Dr. Krystle Heaton IG % 0.2 % Normal 0.0-0.5 [facility] Comment on above: Performed By: #### T 7, LIPA, TSH, AMADOU, CMP #### [facility] [address] [place] [address] Dr. Krystle Heaton LYMPH # 1.6 103/ul Normal 1.2-3.8 [facility] Comment on above: Performed By: #### T 7, LIPA, TSH, AMADOU, CMP #### [facility] [address] [place] [address] Dr. Krystle Heaton Lymphocytes/100 WBC (Bld) 35.1 % Normal 20.5-60.0 [facility] Comment on above: Performed By: #### T 7, LIPA, TSH, AMADOU, CMP #### [facility] [address] [place] [address] Dr. Krystle Heaton MANUAL DIFF REQ NO Normal [facility] Comment on above: Performed By: #### T 7, LIPA, TSH, AMADOU, CMP #### [facility] [address] [place] [address] Dr. Krystle Heaton MCH (RBC) [Entitic mass] 36.6 pg Critically high 25.9-34.0 [facility] Comment on above: Performed By: #### T 7, LIPA, TSH, AMADOU, CMP #### [facility] [address] [place] [address] Dr. Krystle Heaton MCHC (RBC) [Mass/Vol] 33.5 g/dL Normal 29.9-35.2 [facility] Comment on above: Performed By: #### T 7, LIPA, TSH, AMADOU, CMP #### [facility] [address] [place] [address] Dr. Krystle Heaton MCV (RBC) [Entitic vol] 109.3 fL Critically high 80.0-94.0 [facility] Comment on above: Performed By: #### T 7, LIPA, TSH, AMADOU, CMP #### [facility] [address] [place] [address] Dr. Krystle Heaton MONO # 0.5 103/ul Normal 0.3-0.8 [facility] Comment on above: Performed By: #### T 7, LIPA, TSH, AMADOU, CMP #### [facility] [address] [place] [address] Dr. Krystle Heaton Monocytes/100 WBC (Bld) 11.0 % Normal 1.7-12.0 The [facility] Comment on above: Performed By: #### T 7, LIPA, TSH, AMADOU, CMP #### [facility] [address] [place] [address] Dr. Krystle Heaton NEUT # 2.2 103/ul Normal 1.4-6.5 The [facility] Comment on above: Performed By: #### T 7, LIPA, TSH, AMADOU, CMP #### [facility] [address] [place] [address] Dr. Krystle Heaton Neutrophils/100 WBC (Bld) 50.4 % Normal 43.0-75.0 [facility] Comment on above: Performed By: #### T 7, LIPA, TSH, AMADOU, CMP #### [facility] [address] [place] [address] Dr. Krystle Heaton Platelet mean volume (Bld) [Entitic vol] 10.9 fL Normal 9.5-13.5 [facility] Comment on above: Performed By: #### T 7, LIPA, TSH, AMADOU, CMP #### [facility] [address] [place] [address] Dr. Krystle Heaton PLT 158 103/ul Normal 150-450 [facility] Comment on above: Performed By: #### T 7, LIPA, TSH, AMADOU, CMP #### [facility] [address] [place] [address] Dr. Krystle Heaton RBC 3.22 106/ul Critically low 4.70-6.10 [facility] Comment on above: Performed By: #### T 7, LIPA, TSH, AMADOU, CMP #### [facility] [address] [place] [address] Dr. Krystle Heaton WBC 4.5 103/ul Normal 4.0-11.0 [facility] Comment on above: Performed By: #### T 7, LIPA, TSH, AMADOU, CMP #### [facility] [address] [place] [address] Dr. Krystle Heaton FERRITINon 04-18-2021 Ferritin [Mass/Vol] ng/mL Critically high 17.9-464.0 [facility] Comment on above: Performed By: #### H BSANS #### [facility] [address] [place] [address] Billy Devlin CBC AUTO DIFFon 04-13-2021 BASO # 0.0 103/ul Normal 0.0-0.1 [facility] Comment on above: Performed By: #### T 7, LIPA, TSH, AMADOU, CMP #### [facility] [address] [place] [address] Dr. Krystle Heaton Basophils/100 WBC (Bld) 0.6 % Normal 0.2-2.0 [facility] Comment on above: Performed By: #### T 7, LIPA, TSH, AMADOU, CMP #### [facility] [address] [place] [address] Dr. Krystle Heaton EO # 0.1 103/ul Normal 0.0-0.7 [facility] Comment on above: Performed By: #### T 7, LIPA, TSH, AMADOU, CMP #### [facility] [address] [place] [address] Dr. Krystle Heaton Eosinophils/100 WBC (Bld) 3.2 % Normal 0.9-7.0 [facility] Comment on above: Performed By: #### T 7, LIPA, TSH, AMADOU, CMP #### [facility] [address] [place] [address] Dr. Krystle Heaton Erythrocyte distribution width (RBC) [Ratio] 13.6 % Normal 11.0-15.0 [facility] Comment on above: Performed By: #### T 7, LIPA, TSH, AMADOU, CMP #### [facility] [address] [place] [address] Dr. Krystle Heaton Hematocrit (Bld) [Volume fraction] 35.3 % Critically low 42.0-54.0 [facility] Comment on above: Performed By: #### T 7, LIPA, TSH, AMADOU, CMP #### [facility] [address] [place] [address] Dr. Krystle Heaton Hemoglobin (Bld) [Mass/Vol] 11.9 g/dL Critically low 14.0-18.0 [facility] Comment on above: Performed By: #### T 7, LIPA, TSH, AMADOU, CMP #### [facility] [address] [place] [address] Dr. Krystle Heaton IG # 0.01 10e3/ul Normal 0.00-0.03 [facility] Comment on above: Performed By: #### T 7, LIPA, TSH, AMADOU, CMP #### [facility] [address] [place] [address] Dr. Krystle Heaton IG % 0.3 % Normal 0.0-0.5 [facility] Comment on above: Performed By: #### T 7, LIPA, TSH, AMADOU, CMP #### [facility] [address] [place] [address] Dr. Krystle Heaton LYMPH # 1.1 103/ul Critically low 1.2-3.8 [facility] Comment on above: Performed By: #### T 7, LIPA, TSH, AMADOU, CMP #### [facility] [address] [place] [address] Dr. Krystle Heaton Lymphocytes/100 WBC (Bld) 35.1 % Normal 20.5-60.0 [facility] Comment on above: Performed By: #### T 7, LIPA, TSH, AMADOU, CMP #### [facility] [address] [place] [address] Dr. Krystle Heaton MANUAL DIFF REQ NO Normal [facility] Comment on above: Performed By: #### T 7, LIPA, TSH, AMADOU, CMP #### [facility] [address] [place] [address] Dr. Krystle Heaton MCH (RBC) [Entitic mass] 37.1 pg Critically high 25.9-34.0 [facility] Comment on above: Performed By: #### T 7, LIPA, TSH, AMADOU, CMP #### [facility] [address] [place] [address] Dr. Krystle Heaton MCHC (RBC) [Mass/Vol] 33.7 g/dL Normal 29.9-35.2 [facility] Comment on above: Performed By: #### T 7, LIPA, TSH, AMADOU, CMP #### [facility] [address] [place] [address] Dr. Krystle Heaton MCV (RBC) [Entitic vol] 110.0 fL Critically high 80.0-94.0 [facility] Comment on above: Result Comment: macr ocytosis 3+ Performed By: #### T 7, LIPA, TSH, AMADOU, CMP #### [facility] [address] [place] [address] Dr. Krystle Heaton MONO # 0.3 103/ul Normal 0.3-0.8 [facility] Comment on above: Performed By: #### T 7, LIPA, TSH, AAMDOU, CMP #### [facility] [address] [place] [address] Dr. Krystle Heaton Monocytes/100 WBC (Bld) 10.7 % Normal 1.7-12.0 [facility] Comment on above: Performed By: #### T 7, LIPA, TSH, AMADOU, CMP #### [facility] [address] [place] [address] Dr. Krystle Heaton NEUT # 1.5 103/ul Normal 1.4-6.5 [facility] Comment on above: Performed By: #### T 7, LIPA, TSH, AMADOU, CMP #### [facility] [address] [place] [address] Dr. Krystle Heaton Neutrophils/100 WBC (Bld) 50.1 % Normal 43.0-75.0 [facility] Comment on above: Performed By: #### T 7, LIPA, TSH, AMADOU, CMP #### [facility] [address] [place] [address] Dr. Krystle Heaton Platelet mean volume (Bld) [Entitic vol] 10.8 fL Normal 9.5-13.5 [facility] Comment on above: Performed By: #### T 7, LIPA, TSH, AMADOU, CMP #### [facility] [address] [place], [place] [id number] Dr. Krystle Heaton PLT 131 103/ul Critically low 150-450 [facility] Comment on above: Performed By: #### T 7, LIPA, TSH, AMADOU, CMP #### [facility] [address] [place] [address] Dr. Krystle Heaton RBC 3.21 106/ul Critically low 4.70-6.10 [facility] Comment on above: Performed By: #### T 7, LIPA, TSH, AMADOU, CMP #### [facility] [address] [address] [address] Krystle Heaton WBC 3.1 103/ul Critically low 4.0-11.0 [facility] Comment on above: Performed By: #### T 7, LIPA, TSH, AMADOU, CMP #### [facility] [address] [place] [address] Dr. Krystle Heaton FERRITINon 04-13-2021 Ferritin [Mass/Vol] ng/mL Critically high 17.9-464.0 [facility] Comment on above: Performed By: #### F ERR #### [facility] [address] [place] [address] Dr. Krystle Heaton Initial Visit (Gastroenterol ogy)on [...] Anuj 4 2021 1:09PM EST (Author) Normal [facility] CBC AUTO DIFFon 04-06-2021 BASO # 0.0 103/ul Normal 0.0-0.1 [facility] Comment on above: Performed By: #### H ALEXANDER #### [facility] [address] [address] Billy Quita Basophils/100 WBC (Bld) 0.9 % Normal 0.2-2.0 [facility] Comment on above: Performed By: #### H ALEXANDER #### [facility] [address] [address] Billy Quita EO # 0.1 103/ul Normal 0.0-0.7 [facility] Comment on above: Performed By: #### H ALEXANDER #### [facility] [address] [place] [address] Billy Quita Eosinophils/100 WBC (Bld) 3.0 % Normal 0.9-7.0 [facility] Comment on above: Performed By: #### H ALEXANDER #### [facility] [address] [place] [address] Billy Quita Erythrocyte distribution width (RBC) [Ratio] 13.6 % Normal 11.0-15.0 [facility] Comment on above: Performed By: #### H ALEXANDER #### [facility] [address] [place] [address] Billy Quita Hematocrit (Bld) [Volume fraction] 39.1 % Critically low 42.0-54.0 [facility] Comment on above: Performed By: #### H ALEXANDER #### [facility] [address] [place] [address] Billy Quita Hemoglobin (Bld) [Mass/Vol] 13.1 g/dL Critically low 14.0-18.0 [facility] Comment on above: Performed By: #### H ALEXANDER #### [facility] [address] [place] [address] Billy Quita IG # 0.02 10e3/ul Normal 0.00-0.03 [facility] Comment on above: Performed By: #### H ALEXANDER #### [facility] [address] [id number] Billy Quita IG % 0.5 % Normal 0.0-0.5 [facility] Comment on above: Performed By: #### H ALEXANDER #### [facility] [address] [place] [address] Billy Quita LYMPH # 1.1 103/ul Critically low 1.2-3.8 [facility] Comment on above: Performed By: #### H ALEXANDER #### [facility] [address] [place] [address] Billy Devlin Lymphocytes/100 WBC (Bld) 26.7 % Normal 20.5-60.0 [facility] Comment on above: Performed By: #### H ALEXANDER #### [facility] [address] [place] [address] Billy Devlin MANUAL DIFF REQ NO Normal [facility] Comment on above: Performed By: #### H ALEXANDER #### [facility] [address] [place] [address] Billycarrillo Deanen MCH (RBC) [Entitic mass] 36.7 pg Critically high 25.9-34.0 [facility] Comment on above: Performed By: #### H ALEXANDER #### [facility] [address] [place] [address] Billycarrillo Devlin MCHC (RBC) [Mass/Vol] 33.5 g/dL Normal 29.9-35.2 [facility] Comment on above: Result Comment: macr ocytosis Performed By: #### H ALEXANDER #### [facility] [address] [place] [address] Billycarrillo Devlin MCV (RBC) [Entitic vol] 109.5 fL Critically high 80.0-94.0 [facility] Comment on above: Performed By: #### H ALEXANDER #### [facility] [address] [place] [address] Billy Quita MONO # 0.4 103/ul Normal 0.3-0.8 [facility] Comment on above: Performed By: #### H ALEXANDER #### [facility] [address] [address] Billy Quita Monocytes/100 WBC (Bld) 8.7 % Normal 1.7-12.0 [facility] Comment on above: Performed By: #### H ALEXANDER #### [facility] [address] [place] [address] Billycarrillo Devlin NEUT # 2.6 103/ul Normal 1.4-6.5 [facility] Comment on above: Performed By: #### H ALEXANDER #### [facility] [address] [place], [place] [id number] Billy Devlin Neutrophils/100 WBC (Bld) 60.2 % Normal 43.0-75.0 [facility] Comment on above: Performed By: #### H ALEXANDER #### [facility] [address] [place] [address] Billy Devlin Platelet mean volume (Bld) [Entitic vol] 11.1 fL Normal 9.5-13.5 [facility] Comment on above: Performed By: #### H ALEXANDER #### [facility] [address] [place] [address] Billy Quita PLT 162 103/ul Normal 150-450 [facility] Comment on above: Performed By: #### H ALEXANDER #### [facility] [address] [place], [place] [id number] Billy Quita RBC 3.57 106/ul Critically low 4.70-6.10 [facility] Comment on above: Performed By: #### H ALEXANDER #### [facility] [address] [place], [place] [id number] Billy Quita WBC 4.3 103/ul Normal 4.0-11.0 [facility] Comment on above: Performed By: #### H BSASUZANNE #### [facility] [address] [place], [place] [id number] Billy Devlin FERRITINon 04-06-2021 Ferritin [Mass/Vol] ng/mL Critically high 17.9-464.0 [facility] Comment on above: Performed By: #### T 7, LIPA, TSH, AMADOU, CMP #### [facility] [address] [address] [address] Krystle Heaton FREE T4on 04-06-2021 Free T4 [Mass/Vol] 0.73 ng/dL Critically low 0.78-2.19 [facility] Comment on above: Performed By: #### T 7, LIPA, TSH, AMADOU, CMP #### [facility] [address] [place] [address] Dr. Krystle Heaton IRON AND TIBCon 04-06-2021 % SATURATION 54.8 % Normal [facility] Comment on above: Performed By: #### T 7, LIPA, TSH, AMADOU, CMP #### [facility] [address] [place] [address] Dr. Krystle Heaton Iron [Mass/Vol] 161.0 ug/dL Normal 49.0-181.0 [facility] Comment on above: Performed By: #### T 7, LIPA, TSH, AMADOU, CMP #### [facility] [address] [place] [address] Dr. Krystle Heaton TIBC DIRECT 294.0 ug/dL Normal 261.0-497.0 [facility] Comment on above: Performed By: #### T 7, LIPA, TSH, AMADOU, CMP #### [facility] [address] [place] [address] Dr. Krystle Heaton PROF 14(COMP METB)on 021 Albumin [Mass/Vol] 3.7 g/dL Normal 3.5-5.0 [facility] Comment on above: Performed By: #### T 7, LIPA, TSH, AMADOU, CMP #### [facility] [address] [place] [address] Dr. Krystle Heaton Albumin/Globulin [Mass ratio] 1.0 {ratio} Normal [facility] Comment on above: Performed By: #### T 7, LIPA, TSH, AMADOU, CMP #### [facility] [address] [place] [address] Dr. Krystle Heaton ALP [Catalytic activity/Vol] 83 U/L Normal 38-126 [facility] Comment on above: Performed By: #### T 7, LIPA, TSH, AMADOU, CMP #### [facility] [address] [place] [address] Dr. Krystle Heaton ALT [Catalytic activity/Vol] 140 U/L Critically high 21-72 [facility] Comment on above: Performed By: #### T 7, LIPA, TSH, AMADOU, CMP #### [facility] [address] [place] [address] Dr. Krystle Heaton Anion gap [Moles/Vol] 15.8 mmol/L Normal [facility] Comment on above: Performed By: #### T 7, LIPA, TSH, AMADOU, CMP #### [facility] [address] [place] [address] Dr. Krystle Heaton AST [Catalytic activity/Vol] 186 U/L Critically high 17-59 [facility] Comment on above: Performed By: #### T 7, LIPA, TSH, AMADOU, CMP #### [facility] [address] [place] [address] Dr. Krystle Heaton Bilirubin [Mass/Vol] 0.5 mg/dL Normal 0.2-1.3 [facility] Comment on above: Performed By: #### T 7, LIPA, TSH, AMADOU, CMP #### [facility] [address] [place] [address] Dr. Krystle Heaton Calcium [Mass/Vol] 9.0 mg/dL Normal 8.4-10.2 [facility] Comment on above: Performed By: #### T 7, LIPA, TSH, AMADOU, CMP #### [facility] [address] [place] [address] Dr. Krystle Heaton Chloride [Moles/Vol] 101 mmol/L Normal 98-107 [facility] Comment on above: Performed By: #### T 7, LIPA, TSH, AMADOU, CMP #### [facility] [address] [place] [address] Dr. Krystle Heaton CO2 [Moles/Vol] 25.8 mmol/L Normal 22.0-30.0 [facility] Comment on above: Performed By: #### T 7, LIPA, TSH, AMADOU, CMP #### [facility] [address] [address] [address] Krystle Heaton Creatinine [Mass/Vol] 1.07 mg/dL Normal 0.66-1.25 [facility] Comment on above: Performed By: #### T 7, LIPA, TSH, AMADOU, CMP #### [facility] [address] [address] [address] Krystle Heaton EGFR-AF CENTRAL AFRICAN >60 Normal >=60 [facility] Comment on above: Performed By: #### T 7, LIPA, TSH, AMADOU, CMP #### [facility] [address] [address] [address] Krystle Heaton EGFR-NON AF CENTRAL AFRICAN >60 Normal >=60 [facility] Comment on above: Performed By: #### T 7, LIPA, TSH, AMADOU, CMP #### [facility] [address] [place] [address] Dr. Krystle Heaton Globulin (S) [Mass/Vol] 3.7 g/dL Normal [facility] Comment on above: Performed By: #### T 7, LIPA, TSH, AMADOU, CMP #### [facility] [address] [place] [address] Dr. Krystle Heaton Glucose [Mass/Vol] 104 mg/dL Normal 74-106 [facility] Comment on above: Performed By: #### T 7, LIPA, TSH, AMADOU, CMP #### [facility] [address] [address] [address] Krystle Heaton Potassium [Moles/Vol] 4.6 mmol/L Normal 3.4-5.0 [facility] Comment on above: Performed By: #### T 7, LIPA, TSH, AMADOU, CMP #### [facility] [address] [address] [address] Krystle Heaton Protein [Mass/Vol] 7.4 g/dL Normal 6.1-8.2 [facility] Comment on above: Performed By: #### T 7, LIPA, TSH, AMADOU, CMP #### [facility] [address] [place] [address] Dr. Krystle Heaton Sodium [Moles/Vol] 138 mmol/L Normal 137-145 [facility] Comment on above: Performed By: #### T 7, LIPA, TSH, AMADOU, CMP #### [facility] [address] [place] [address] Dr. Krystle Heaton Urea nitrogen [Mass/Vol] 10.0 mg/dL Normal 9.0-20.0 [facility] Comment on above: Performed By: #### T 7, LIPA, TSH, AMADOU, CMP #### [facility] [address] [place] [address] Dr. Krystle Heaton Urea nitrogen/Creatinine [Mass ratio] 9.3 mg/mg Normal [facility] Comment on above: Performed By: #### T 7, LIPA, TSH, AMADOU, CMP #### [facility] [address] [place] [address] Dr. Krystle Heaton TSHon 04-06-2021 TSH 1.945 uIU/mL Normal 0.470-4.680 [facility] Comment on above: Performed By: #### T 7, LIPA, TSH, AMADOU, CMP #### [facility] [address] [place] [address] Dr. Krystle Heaton TSH RANGE SEE BELOW Normal [facility] Comment on above: Result Comment: <0.3 4 UIU/ml HYPERTHYROID 0.34-5.60 UIU/ml EUTHYROID >5.60 UIU/ml HYPOTHYROID Performed By: #### T 7, LIPA, TSH, AMADOU, CMP #### [facility] [address] [place] [address] Dr. Krystle Heaton CBC AUTO DIFFon 03-30-2021 BASO # 0.0 103/ul Normal 0.0-0.1 [facility] Comment on above: Performed By: #### T 7, LIPA, TSH, AMADOU, CMP #### [facility] [address] [place] [address] Dr. Krystle Heaton Basophils/100 WBC (Bld) 0.8 % Normal 0.2-2.0 [facility] Comment on above: Performed By: #### T 7, LIPA, TSH, AMADOU, CMP #### [facility] [address] [place] [address] Dr. Krystle Heaton EO # 0.1 103/ul Normal 0.0-0.7 [facility] Comment on above: Performed By: #### T 7, LIPA, TSH, AMADOU, CMP #### [facility] [address] [place] [address] Dr. Krystle Heaton Eosinophils/100 WBC (Bld) 3.0 % Normal 0.9-7.0 [facility] Comment on above: Performed By: #### T 7, LIPA, TSH, AMADOU, CMP #### [facility] [address] [place] [address] Dr. Krystle Heaton Erythrocyte distribution width (RBC) [Ratio] 13.9 % Normal 11.0-15.0 [facility] Comment on above: Performed By: #### T 7, LIPA, TSH, AMADOU, CMP #### [facility] [address] [place] [address] Dr. Krystle Heaton Hematocrit (Bld) [Volume fraction] 40.4 % Critically low 42.0-54.0 [facility] Comment on above: Performed By: #### T 7, LIPA, TSH, AMADOU, CMP #### [facility] [address] [place] [address] Dr. Krystle Heaton Hemoglobin (Bld) [Mass/Vol] 13.5 g/dL Critically low 14.0-18.0 [facility] Comment on above: Performed By: #### T 7, LIPA, TSH, AMAODU, CMP #### [facility] [address] [place] [address] Dr. Krystle Heaton IG # 0.01 10e3/ul Normal 0.00-0.03 [facility] Comment on above: Performed By: #### T 7, LIPA, TSH, AMADOU, CMP #### [facility] [address] [place] [address] Dr. Krystle Heaton IG % 0.3 % Normal 0.0-0.5 [facility] Comment on above: Performed By: #### T 7, LIPA, TSH, AMADOU, CMP #### [facility] [address] [place] [address] Dr. Krystle Heaton LYMPH # 1.2 103/ul Normal 1.2-3.8 [facility] Comment on above: Performed By: #### T 7, LIPA, TSH, AMADOU, CMP #### [facility] [address] [place] [address] Dr. Krystle Heaton Lymphocytes/100 WBC (Bld) 32.7 % Normal 20.5-60.0 [facility] Comment on above: Performed By: #### T 7, LIPA, TSH, AMADOU, CMP #### [facility] [address] [place] [address] Dr. Krystle Heaton MANUAL DIFF REQ NO Normal [facility] Comment on above: Performed By: #### T 7, LIPA, TSH, AMADOU, CMP #### [facility] [address] [place] [address] Dr. Krystle Heaton MCH (RBC) [Entitic mass] 36.5 pg Critically high 25.9-34.0 [facility] Comment on above: Performed By: #### T 7, LIPA, TSH, AMADOU, CMP #### [facility] [address] [place] [address] Dr. Krystle Heaton MCHC (RBC) [Mass/Vol] 33.4 g/dL Normal 29.9-35.2 [facility] Comment on above: Result Comment: MACR OCYTOSIS PRESENT Performed By: #### T 7, LIPA, TSH, AMADOU, CMP #### [facility] [address] [place] [address] Dr. Krystle Heaton MCV (RBC) [Entitic vol] 109.2 fL Critically high 80.0-94.0 [facility] Comment on above: Performed By: #### T 7, LIPA, TSH, AMADOU, CMP #### [facility] [address] [place] [address] Dr. Krystle Heaton MONO # 0.4 103/ul Normal 0.3-0.8 [facility] Comment on above: Performed By: #### T 7, LIPA, TSH, AMADOU, CMP #### [facility] [address] [place] [address] Dr. Krystle Heaton Monocytes/100 WBC (Bld) 11.4 % Normal 1.7-12.0 [facility] Comment on above: Performed By: #### T 7, LIPA, TSH, AMADOU, CMP #### [facility] [address] [place] [address] Dr. Krystle Heaton NEUT # 1.9 103/ul Normal 1.4-6.5 [facility] Comment on above: Performed By: #### T 7, LIPA, TSH, AMADOU, CMP #### [facility] [address] [place] [address] Dr. Krystle Heaton Neutrophils/100 WBC (Bld) 51.8 % Normal 43.0-75.0 [facility] Comment on above: Performed By: #### T 7, LIPA, TSH, AMADOU, CMP #### [facility] [address] [place] [address] Dr. Krystle Heaton Platelet mean volume (Bld) [Entitic vol] 10.8 fL Normal 9.5-13.5 [facility] Comment on above: Performed By: #### T 7, LIPA, TSH, AMADOU, CMP #### [facility] [address] [place] [address] Dr. Krystle Heaton PLT 184 103/ul Normal 150-450 [facility] Comment on above: Performed By: #### T 7, LIPA, TSH, AMADOU, CMP #### [facility] [address] [place] [address] Dr. Krystle Heaton RBC 3.70 106/ul Critically low 4.70-6.10 [facility] Comment on above: Performed By: #### T 7, LIPA, TSH, AMADOU, CMP #### [facility] [address] [place] [address] Dr. Krystle Heaton WBC 3.6 103/ul Critically low 4.0-11.0 [facility] Comment on above: Performed By: #### T 7, LIPA, TSH, AMADOU, CMP #### [facility] [address] [place] [address] Dr. Krystle Heaton FERRITINon 03-30-2021 Ferritin [Mass/Vol] ng/mL Critically high 17.9-464.0 [facility] Comment on above: Performed By: #### F ERR #### [facility] [address] [place] [address] Dr. Krystle Heaton FREE T4on 03-30-2021 Free T4 [Mass/Vol] 0.83 ng/dL Normal 0.78-2.19 [facility] Comment on above: Performed By: #### F ERR #### [facility] [address] [place] [address] Dr. Krystle Heaton IRON AND TIBCon 03-30-2021 % SATURATION 78.5 % Normal [facility] Comment on above: Performed By: #### F ERR #### [facility] [address] [place] [address] Dr. Krystle Heaton Iron [Mass/Vol] 230.0 ug/dL Critically high 49.0-181.0 [facility] Comment on above: Performed By: #### F ERR #### [facility] [address] [place] [address] Dr. Krystle Heaton TIBC DIRECT 293.0 ug/dL Normal 261.0-497.0 [facility] Comment on above: Performed By: #### F ERR #### [facility] [address] [place] [address] Dr. Krystle Heaton PROF 14(COMP METB)on 021 Albumin [Mass/Vol] 3.8 g/dL Normal 3.5-5.0 [facility] Comment on above: Performed By: #### T 7, LIPA, TSH, AMADOU, CMP #### [facility] [address] [place] [address] Dr. Krystle Heaton Albumin/Globulin [Mass ratio] 1.0 {ratio} Normal [facility] Comment on above: Performed By: #### T 7, LIPA, TSH, AMADOU, CMP #### [facility] [address] [place] [address] Dr. Krystle Heaton ALP [Catalytic activity/Vol] 90 U/L Normal 38-126 [facility] Comment on above: Performed By: #### T 7, LIPA, TSH, AMADOU, CMP #### [facility] [address] [place] [address] Dr. Krystle Heaton ALT [Catalytic activity/Vol] 149 U/L Critically high 21-72 [facility] Comment on above: Performed By: #### T 7, LIPA, TSH, AMADOU, CMP #### [facility] [address] [place] [address] Dr. Krystle Heaton Anion gap [Moles/Vol] 16.0 mmol/L Normal [facility] Comment on above: Performed By: #### T 7, LIPA, TSH, AMADOU, CMP #### [facility] [address] [place] [address] Dr. Krystle Heaton AST [Catalytic activity/Vol] 187 U/L Critically high 17-59 [facility] Comment on above: Performed By: #### T 7, LIPA, TSH, AMADOU, CMP #### [facility] [address] [place] [address] Dr. Krystle Heaton Bilirubin [Mass/Vol] 0.6 mg/dL Normal 0.2-1.3 [facility] Comment on above: Performed By: #### T 7, LIPA, TSH, AMADOU, CMP #### [facility] [address] [place] [address] Dr. Krystle Heaton Calcium [Mass/Vol] 9.2 mg/dL Normal 8.4-10.2 [facility] Comment on above: Performed By: #### T 7, LIPA, TSH, AMADOU, CMP #### [facility] [address] [place] [address] Dr. Krystle Heaton Chloride [Moles/Vol] 100 mmol/L Normal 98-107 [facility] Comment on above: Performed By: #### T 7, LIPA, TSH, AMADOU, CMP #### [facility] [address] [place] [address] Dr. Krystle Heaton CO2 [Moles/Vol] 26.2 mmol/L Normal 22.0-30.0 [facility] Comment on above: Performed By: #### T 7, LIPA, TSH, AMADOU, CMP #### [facility] [address] [place] [address] Dr. Krystle Heaton Creatinine [Mass/Vol] 1.07 mg/dL Normal 0.66-1.25 [facility] Comment on above: Performed By: #### T 7, LIPA, TSH, AMADOU, CMP #### [facility] [address] [place] [address] Dr. Krystle Heaton EGFR-AF CENTRAL AFRICAN >60 Normal >=60 [facility] Comment on above: Performed By: #### T 7, LIPA, TSH, AMADOU, CMP #### [facility] [address] [place] [address] Dr. Krystle Heaton EGFR-NON AF CENTRAL AFRICAN >60 Normal >=60 [facility] Comment on above: Performed By: #### T 7, LIPA, TSH, AMADOU, CMP #### [facility] [address] [place] [address] Dr. Krystle Heaton Globulin (S) [Mass/Vol] 3.8 g/dL Normal [facility] Comment on above: Performed By: #### T 7, LIPA, TSH, AMADOU, CMP #### [facility] [address] [place] [address] Dr. Krystle Heaton Glucose [Mass/Vol] 110 mg/dL Critically high 74-106 [facility] Comment on above: Performed By: #### T 7, LIPA, TSH, AMADOU, CMP #### [facility] [address] [place] [address] Dr. Krystle Heaton Potassium [Moles/Vol] 4.2 mmol/L Normal 3.4-5.0 [facility] Comment on above: Performed By: #### T 7, LIPA, TSH, AMADOU, CMP #### [facility] [address] [place] [address] Dr. Krystle Heaton Protein [Mass/Vol] 7.6 g/dL Normal 6.1-8.2 [facility] Comment on above: Performed By: #### T 7, LIPA, TSH, AMADOU, CMP #### [facility] [address] [place] [address] Dr. Krystle Heaton Sodium [Moles/Vol] 138 mmol/L Normal 137-145 [facility] Comment on above: Performed By: #### T 7, LIPA, TSH, AMADOU, CMP #### [facility] [address] [place] [address] Dr. Krystle Hetaon Urea nitrogen [Mass/Vol] 9.0 mg/dL Normal 9.0-20.0 [facility] Comment on above: Performed By: #### T 7, LIPA, TSH, AMADOU, CMP #### [facility] [address] [place] [address] Dr. Krystle Heaton Urea nitrogen/Creatinine [Mass ratio] 8.4 mg/mg Normal [facility] Comment on above: Performed By: #### T 7, LIPA, TSH, AMADOU, CMP #### [facility] [address] [place] [address] Dr. Krystle Heaton TSHon 03-30-2021 TSH 1.030 uIU/mL Normal 0.470-4.680 [facility] Comment on above: Performed By: #### T 7, LIPA, TSH, AMADOU, CMP #### [facility] [address] [place] [address] Dr. Krystle Heaton TSH RANGE SEE BELOW Normal [facility] Comment on above: Result Comment: <0.3 4 UIU/ml HYPERTHYROID 0.34-5.60 UIU/ml EUTHYROID >5.60 UIU/ml HYPOTHYROID Performed By: #### T 7, LIPA, TSH, AMADOU, CMP #### [facility] [address] [place] [address] Dr. Krystle Heaton CBC AUTO DIFFon 03-22-2021 BASO # 0.0 103/ul Normal 0.0-0.1 [facility] Comment on above: Performed By: #### T 7, LIPA, TSH, AMADOU, CMP #### [facility] [address] [place] [address] Dr. Krystle Heaton Basophils/100 WBC (Bld) 0.6 % Normal 0.2-2.0 [facility] Comment on above: Performed By: #### T 7, LIPA, TSH, AMADOU, CMP #### [facility] [address] [place] [address] Dr. Krystle Heaton EO # 0.1 103/ul Normal 0.0-0.7 [facility] Comment on above: Performed By: #### T 7, LIPA, TSH, AMADOU, CMP #### [facility] [address] [place] [address] Dr. Krystle Heaton Eosinophils/100 WBC (Bld) 2.1 % Normal 0.9-7.0 [facility] Comment on above: Performed By: #### T 7, LIPA, TSH, AMADOU, CMP #### [facility] [address] [place] [address] Dr. Krystle Heaton Erythrocyte distribution width (RBC) [Ratio] 12.7 % Normal 11.0-15.0 [facility] Comment on above: Performed By: #### T 7, LIPA, TSH, AMADOU, CMP #### [facility] [address] [place] [address] Dr. Krystle Heaton Hematocrit (Bld) [Volume fraction] 37.5 % Critically low 42.0-54.0 [facility] Comment on above: Performed By: #### T 7, LIPA, TSH, AMADOU, CMP #### [facility] [address] [place] [address] Dr. Krystle Heaton Hemoglobin (Bld) [Mass/Vol] 13.1 g/dL Critically low 14.0-18.0 [facility] Comment on above: Performed By: #### T 7, LIPA, TSH, AMADOU, CMP #### [facility] [address] [place] [address] Dr. Krystle Heaton IG # 0.01 10e3/ul Normal 0.00-0.03 [facility] Comment on above: Performed By: #### T 7, LIPA, TSH, AMADOU, CMP #### [facility] [address] [place] [address] Dr. Krystle Heaton IG % 0.3 % Normal 0.0-0.5 [facility] Comment on above: Performed By: #### T 7, LIPA, TSH, AMADOU, CMP #### [facility] [address] [place] [address] Dr. Krystle Heaton LYMPH # 1.2 103/ul Normal 1.2-3.8 [facility] Comment on above: Performed By: #### T 7, LIPA, TSH, AMADOU, CMP #### [facility] [address] [place] [address] Dr. Krystle Heaton Lymphocytes/100 WBC (Bld) 35.7 % Normal 20.5-60.0 [facility] Comment on above: Performed By: #### T 7, LIPA, TSH, AMADOU, CMP #### [facility] [address] [place] [address] Dr. Krystle Heaton MANUAL DIFF REQ NO Normal [facility] Comment on above: Performed By: #### T 7, LIPA, TSH, AMADOU, CMP #### [facility] [address] [place] [address] Dr. Krystle Heaton MCH (RBC) [Entitic mass] 37.0 pg Critically high 25.9-34.0 [facility] Comment on above: Performed By: #### T 7, LIPA, TSH, AMADOU, CMP #### [facility] [address] [place] [address] Dr. Krystle Heaton MCHC (RBC) [Mass/Vol] 34.9 g/dL Normal 29.9-35.2 [facility] Comment on above: Performed By: #### T 7, LIPA, TSH, AMADOU, CMP #### [facility] [address] [place] [address] Dr. Krystle Heaton MCV (RBC) [Entitic vol] 105.9 fL Critically high 80.0-94.0 [facility] Comment on above: Performed By: #### T 7, LIPA, TSH, AMADOU, CMP #### [facility] [address] [place] [address] Dr. Krystle Heaton MONO # 0.2 103/ul Critically low 0.3-0.8 [facility] Comment on above: Performed By: #### T 7, LIPA, TSH, AMADOU, CMP #### [facility] [address] [place] [address] Dr. Krystle Heaton Monocytes/100 WBC (Bld) 6.8 % Normal 1.7-12.0 [facility] Comment on above: Performed By: #### T 7, LIPA, TSH, AMADOU, CMP #### [facility] [address] [place] [address] Dr. Krystle Heaton NEUT # 1.8 103/ul Normal 1.4-6.5 [facility] Comment on above: Performed By: #### T 7, LIPA, TSH, AMADOU, CMP #### [facility] [address] [place] [address] Dr. Krystle Heaton Neutrophils/100 WBC (Bld) 54.5 % Normal 43.0-75.0 [facility] Comment on above: Performed By: #### T 7, LIPA, TSH, AMADOU, CMP #### [facility] [address] [place] [address] Dr. Krystle Heaton Platelet mean volume (Bld) [Entitic vol] 10.4 fL Normal 9.5-13.5 [facility] Comment on above: Performed By: #### T 7, LIPA, TSH, AMADOU, CMP #### [facility] [address] [place] [address] Dr. Krystle Heaton PLT 126 103/ul Critically low 150-450 [facility] Comment on above: Performed By: #### T 7, LIPA, TSH, AMADOU, CMP #### [facility] [address] [place] [address] Dr. Krystle Heaton RBC 3.54 106/ul Critically low 4.70-6.10 [facility] Comment on above: Performed By: #### T 7, LIPA, TSH, AMADOU, CMP #### [facility] [address] [place] [address] Dr. Krystle Heaton WBC 3.4 103/ul Critically low 4.0-11.0 [facility] Comment on above: Performed By: #### T 7, LIPA, TSH, AMADOU, CMP #### [facility] [address] [place] [address] Dr. Krystle Heaton FERRITINon 03-22-2021 Ferritin [Mass/Vol] ng/mL Critically high 17.9-464.0 [facility] Comment on above: Performed By: #### T 7, LIPA, TSH, AMADOU, CMP #### [facility] [address] [place] [address] Dr. Krystle Heaton FREE T4on 03-22-2021 Free T4 [Mass/Vol] 0.78 ng/dL Normal 0.78-2.19 [facility] Comment on above: Performed By: #### T 7, LIPA, TSH, AMADOU, CMP #### [facility] [address] [place] [address] Dr. Krystle Heaton IRON AND TIBCon 03-22-2021 % SATURATION 106.0 % Normal [facility] Comment on above: Performed By: #### T 7, LIPA, TSH, AMADOU, CMP #### [facility] [address] [place] [address] Dr. Krystle Heaton Iron [Mass/Vol] 233.0 ug/dL Critically high 49.0-181.0 [facility] Comment on above: Performed By: #### T 7, LIPA, TSH, AMADOU, CMP #### [facility] [address] [place] [address] Dr. Krystle Heaton TIBC DIRECT 220.0 ug/dL Critically low 261.0-497.0 [facility] Comment on above: Performed By: #### T 7, LIPA, TSH, AMADOU, CMP #### [facility] [address] [place] [address] Dr. Krystle Heaton PROF 14(COMP METB)on 021 Albumin [Mass/Vol] 3.5 g/dL Normal 3.5-5.0 [facility] Comment on above: Performed By: #### T 7, LIPA, TSH, AMADOU, CMP #### [facility] [address] [place] [address] Dr. Krystle Heaton Albumin/Globulin [Mass ratio] 1.0 {ratio} Normal [facility] Comment on above: Performed By: #### T 7, LIPA, TSH, AMADOU, CMP #### [facility] [address] [place] [address] Dr. Krystle Heaton ALP [Catalytic activity/Vol] 77 U/L Normal 38-126 [facility] Comment on above: Performed By: #### T 7, LIPA, TSH, AMADOU, CMP #### [facility] [address] [place] [address] Dr. Krystle Heaton ALT [Catalytic activity/Vol] 95 U/L Critically high 21-72 [facility] Comment on above: Performed By: #### T 7, LIPA, TSH, AMADOU, CMP #### [facility] [address] [place] [address] Dr. Krystle Heaton Anion gap [Moles/Vol] 17.3 mmol/L Normal [facility] Comment on above: Performed By: #### T 7, LIPA, TSH, AMADOU, CMP #### [facility] [address] [place] [address] Dr. Krystle Heaton AST [Catalytic activity/Vol] 161 U/L Critically high 17-59 [facility] Comment on above: Performed By: #### T 7, LIPA, TSH, AMADOU, CMP #### [facility] [address] [place] [address] Dr. Krystle Heaton Bilirubin [Mass/Vol] 0.8 mg/dL Normal 0.2-1.3 [facility] Comment on above: Performed By: #### T 7, LIPA, TSH, AMADOU, CMP #### [facility] [address] [place] [address] Dr. Krystle Heaton Calcium [Mass/Vol] 8.5 mg/dL Normal 8.4-10.2 [facility] Comment on above: Performed By: #### T 7, LIPA, TSH, AMADOU, CMP #### [facility] [address] [place] [address] Dr. Krystle Heaton Chloride [Moles/Vol] 101 mmol/L Normal 98-107 [facility] Comment on above: Performed By: #### T 7, LIPA, TSH, AMADOU, CMP #### [facility] [address] [place] [address] Dr. Krystle Heaton CO2 [Moles/Vol] 22.6 mmol/L Normal 22.0-30.0 [facility] Comment on above: Performed By: #### T 7, LIPA, TSH, AMADOU, CMP #### [facility] [address] [place] [address] Dr. Krystle Heaton Creatinine [Mass/Vol] 0.98 mg/dL Normal 0.66-1.25 [facility] Comment on above: Performed By: #### T 7, LIPA, TSH, AMADOU, CMP #### [facility] [address] [place] [address] Dr. Krystle Heaton EGFR-AF CENTRAL AFRICAN >60 Normal >=60 [facility] Comment on above: Performed By: #### T 7, LIPA, TSH, AMADOU, CMP #### [facility] [address] [place] [address] Dr. Krystle Heaton EGFR-NON AF CENTRAL AFRICAN >60 Normal >=60 [facility] Comment on above: Performed By: #### T 7, LIPA, TSH, AMADOU, CMP #### [facility] [address] [place] [address] Dr. Krystle Heaton Globulin (S) [Mass/Vol] 3.4 g/dL Normal [facility] Comment on above: Performed By: #### T 7, LIPA, TSH, AMADOU, CMP #### [facility] [address] [place] [address] Dr. Krystle Heaton Glucose [Mass/Vol] 103 mg/dL Normal 74-106 [facility] Comment on above: Performed By: #### T 7, LIPA, TSH, AMADOU, CMP #### [facility] [address] [place] [address] Dr. Krystle Heaton Potassium [Moles/Vol] 3.9 mmol/L Normal 3.4-5.0 [facility] Comment on above: Performed By: #### T 7, LIPA, TSH, AMADOU, CMP #### [facility] [address] [place] [address] Dr. Krystle Heaton Protein [Mass/Vol] 6.9 g/dL Normal 6.1-8.2 [facility] Comment on above: Performed By: #### T 7, LIPA, TSH, AMADOU, CMP #### [facility] [address] [place] [address] Dr. Krystle Heaton Sodium [Moles/Vol] 137 mmol/L Normal 137-145 [facility] Comment on above: Performed By: #### T 7, LIPA, TSH, AMADOU, CMP #### [facility] [address] [place] [address] Dr. Krystle Heaton Urea nitrogen [Mass/Vol] 8.0 mg/dL Critically low 9.0-20.0 [facility] Comment on above: Performed By: #### T 7, LIPA, TSH, AMADOU, CMP #### [facility] [address] [place] [address] Dr. Krystle Heaton Urea nitrogen/Creatinine [Mass ratio] 8.2 mg/mg Normal [facility] Comment on above: Performed By: #### T 7, LIPA, TSH, AMADOU, CMP #### [facility] [address] [place] [address] Dr. Krystle Heaton TSHon 03-22-2021 TSH 2.059 uIU/mL Normal 0.470-4.680 [facility] Comment on above: Performed By: #### T 7, LIPA, TSH, AMADOU, CMP #### [facility] [address] [place] [address] Dr. Krystle Heaton TSH RANGE SEE BELOW Normal [facility] Comment on above: Result Comment: <0.3 4 UIU/ml HYPERTHYROID 0.34-5.60 UIU/ml EUTHYROID >5.60 UIU/ml HYPOTHYROID Performed By: #### T 7, LIPA, TSH, AMADOU, CMP #### [facility] [address] [place] [address] Dr. Krystle Heaton CBC AUTO DIFFon 03-17-2021 BASO # 0.0 103/ul Normal 0.0-0.1 [facility] Comment on above: Performed By: #### T 7, LIPA, TSH, AMADOU, CMP #### [facility] [address] [place] [address] Dr. Krystle Heaton Basophils/100 WBC (Bld) 0.3 % Normal 0.2-2.0 [facility] Comment on above: Performed By: #### T 7, LIPA, TSH, AMADOU, CMP #### [facility] [address] [place] [address] Dr. Krystle Heaton EO # 0.1 103/ul Normal 0.0-0.7 [facility] Comment on above: Performed By: #### T 7, LIPA, TSH, AMADOU, CMP #### [facility] [address] [place] [address] Dr. Krystle Heaton Eosinophils/100 WBC (Bld) 1.8 % Normal 0.9-7.0 [facility] Comment on above: Performed By: #### T 7, LIPA, TSH, AMADOU, CMP #### [facility] [address] [place] [address] Dr. Krystle Heaton Erythrocyte distribution width (RBC) [Ratio] 12.5 % Normal 11.0-15.0 [facility] Comment on above: Performed By: #### T 7, LIPA, TSH, AMADOU, CMP #### [facility] [address] [place] [address] Dr. Krystle Heaton Hematocrit (Bld) [Volume fraction] 40.9 % Critically low 42.0-54.0 [facility] Comment on above: Performed By: #### T 7, LIPA, TSH, AMADOU, CMP #### [facility] [address] [place] [address] Dr. Krystle Heaton Hemoglobin (Bld) [Mass/Vol] 14.1 g/dL Normal 14.0-18.0 [facility] Comment on above: Performed By: #### T 7, LIPA, TSH, AMADOU, CMP #### [facility] [address] [place] [address] Dr. Krystle Heaton IG # 0.01 10e3/ul Normal 0.00-0.03 [facility] Comment on above: Performed By: #### T 7, LIPA, TSH, AMADOU, CMP #### [facility] [address] [place] [address] Dr. Krystle Heaton IG % 0.3 % Normal 0.0-0.5 [facility] Comment on above: Performed By: #### T 7, LIPA, TSH, AMADOU, CMP #### [facility] [address] [place] [address] Dr. Kyrstle Heaton LYMPH # 1.3 103/ul Normal 1.2-3.8 [facility] Comment on above: Performed By: #### T 7, LIPA, TSH, AMADOU, CMP #### [facility] [address] [place] [address] Dr. Krystle Heaton Lymphocytes/100 WBC (Bld) 41.1 % Normal 20.5-60.0 [facility] Comment on above: Performed By: #### T 7, LIPA, TSH, AMADOU, CMP #### [facility] [address] [place] [address] Dr. Krystle Heaton MANUAL DIFF REQ NO Normal [facility] Comment on above: Performed By: #### T 7, LIPA, TSH, AMADOU, CMP #### [facility] [address] [place] [address] Dr. Krystle Heaton MCH (RBC) [Entitic mass] 36.3 pg Critically high 25.9-34.0 [facility] Comment on above: Performed By: #### T 7, LIPA, TSH, AMADOU, CMP #### [facility] [address] [place] [address] Dr. Krystle Heaton MCHC (RBC) [Mass/Vol] 34.5 g/dL Normal 29.9-35.2 [facility] Comment on above: Performed By: #### T 7, LIPA, TSH, AMADOU, CMP #### [facility] [address] [place] [address] Dr. Krystle Heaton MCV (RBC) [Entitic vol] 105.4 fL Critically high 80.0-94.0 [facility] Comment on above: Performed By: #### T 7, LIPA, TSH, AMADOU, CMP #### [facility] [address] [place] [address] Dr. Krystle Heaton MONO # 0.3 103/ul Normal 0.3-0.8 [facility] Comment on above: Performed By: #### T 7, LIPA, TSH, AMADOU, CMP #### [facility] [address] [place] [address] Dr. Krystle Heaton Monocytes/100 WBC (Bld) 8.0 % Normal 1.7-12.0 [facility] Comment on above: Performed By: #### T 7, LIPA, TSH, AMADOU, CMP #### [facility] [address] [place] [address] Dr. Krystle Heaton NEUT # 1.6 103/ul Normal 1.4-6.5 [facility] Comment on above: Performed By: #### T 7, LIPA, TSH, AMADOU, CMP #### [facility] [address] [place] [address] Dr. Krystle Heaton Neutrophils/100 WBC (Bld) 48.5 % Normal 43.0-75.0 [facility] Comment on above: Performed By: #### T 7, LIPA, TSH, AMADOU, CMP #### [facility] [address] [place] [address] Dr. Krystle Heaton Platelet mean volume (Bld) [Entitic vol] 10.6 fL Normal 9.5-13.5 [facility] Comment on above: Performed By: #### T 7, LIPA, TSH, AMADOU, CMP #### [facility] [address] [place] [address] Dr. Krystle Heaton PLT 134 103/ul Critically low 150-450 [facility] Comment on above: Performed By: #### T 7, LIPA, TSH, AMADOU, CMP #### [facility] [address] [place] [address] Dr. Krystle Heaton RBC 3.88 106/ul Critically low 4.70-6.10 [facility] Comment on above: Result Comment: Macr ocytosis 1+ Stomatocytes 1+ Performed By: #### T 7, LIPA, TSH, AMADOU, CMP #### [facility] [address] [place] [address] Dr. Krystle Heaton WBC 3.3 103/ul Critically low 4.0-11.0 [facility] Comment on above: Performed By: #### T 7, LIPA, TSH, AMADOU, CMP #### [facility] [address] [place] [address] Dr. Krystle Heaton FERRITINon 03-17-2021 Ferritin [Mass/Vol] ng/mL Critically high 17.9-464.0 [facility] Comment on above: Performed By: #### T 7, LIPA, TSH, AMADOU, CMP #### [facility] [address] [place] [address] Dr. Krystle Heaton FREE T4on 03-17-2021 Free T4 [Mass/Vol] 0.82 ng/dL Normal 0.78-2.19 [facility] Comment on above: Performed By: #### T 7, LIPA, TSH, AMADOU, CMP #### [facility] [address] [place] [address] Dr. Krystle Heaton IRON AND TIBCon 03-17-2021 % SATURATION 100.8 % Normal [facility] Comment on above: Performed By: #### T 7, LIPA, TSH, AMADOU, CMP #### [facility] [address] [place] [address] Dr. Krystle Heaton Iron [Mass/Vol] 249.0 ug/dL Critically high 49.0-181.0 [facility] Comment on above: Performed By: #### T 7, LIPA, TSH, AMADOU, CMP #### [facility] [address] [place] [address] Dr. Krystle Heaton TIBC DIRECT 247.0 ug/dL Critically low 261.0-497.0 [facility] Comment on above: Performed By: #### T 7, LIPA, TSH, AMADOU, CMP #### [facility] [address] [place] [address] Dr. Krystle Heaton PROF 14(COMP METB)on 021 Albumin [Mass/Vol] 3.7 g/dL Normal 3.5-5.0 [facility] Comment on above: Performed By: #### T 7, LIPA, TSH, AMADOU, CMP #### [facility] [address] [address] [address] Krystle Heaton Albumin/Globulin [Mass ratio] 1.1 {ratio} Normal [facility] Comment on above: Performed By: #### T 7, LIPA, TSH, AMADOU, CMP #### [facility] [address] [address] [address] Krystle Heaton ALP [Catalytic activity/Vol] 78 U/L Normal 38-126 [facility] Comment on above: Performed By: #### T 7, LIPA, TSH, AMADOU, CMP #### [facility] [address] [place] [address] Dr. Krystle Heaton ALT [Catalytic activity/Vol] 100 U/L Critically high 21-72 [facility] Comment on above: Performed By: #### T 7, LIPA, TSH, AMADOU, CMP #### [facility] [address] [address] [address] Krystle Heaton Anion gap [Moles/Vol] 14.4 mmol/L Normal [facility] Comment on above: Performed By: #### T 7, LIPA, TSH, AMADOU, CMP #### [facility] [address] [place] [address] Dr. Krystle Heaton AST [Catalytic activity/Vol] 158 U/L Critically high 17-59 [facility] Comment on above: Performed By: #### T 7, LIPA, TSH, AMADOU, CMP #### [facility] [address] [address] [address] Krystle Heaton Bilirubin [Mass/Vol] 0.6 mg/dL Normal 0.2-1.3 [facility] Comment on above: Performed By: #### T 7, LIPA, TSH, AMADOU, CMP #### [facility] [address] [place] [address] Dr. Krystle Heaton Calcium [Mass/Vol] 8.9 mg/dL Normal 8.4-10.2 [facility] Comment on above: Performed By: #### T 7, LIPA, TSH, AMADOU, CMP #### [facility] [address] [address] [address] Krystle Heaton Chloride [Moles/Vol] 100 mmol/L Normal 98-107 [facility] Comment on above: Performed By: #### T 7, LIPA, TSH, AMADOU, CMP #### [facility] [address] [address] [address] Krystle Heaton CO2 [Moles/Vol] 27.3 mmol/L Normal 22.0-30.0 [facility] Comment on above: Performed By: #### T 7, LIPA, TSH, AMADOU, CMP #### [facility] [address] [place] [address] Dr. Krystle Heaton Creatinine [Mass/Vol] 1.08 mg/dL Normal 0.66-1.25 [facility] Comment on above: Performed By: #### T 7, LIPA, TSH, AMADOU, CMP #### [facility] [address] [place] [address] Dr. Krystle Heaton EGFR-AF CENTRAL AFRICAN >60 Normal >=60 [facility] Comment on above: Performed By: #### T 7, LIPA, TSH, AMADOU, CMP #### [facility] [address] [place] [address] Dr. Krystle Heaton EGFR-NON AF CENTRAL AFRICAN >60 Normal >=60 [facility] Comment on above: Performed By: #### T 7, LIPA, TSH, AMADOU, CMP #### [facility] [address] [place] [address] Dr. Krystle Heaton Globulin (S) [Mass/Vol] 3.5 g/dL Normal [facility] Comment on above: Performed By: #### T 7, LIPA, TSH, AMADOU, CMP #### [facility] [address] [place] [address] Dr. Krystle Heaton Glucose [Mass/Vol] 115 mg/dL Critically high 74-106 [facility] Comment on above: Performed By: #### T 7, LIPA, TSH, AMADOU, CMP #### [facility] [address] [address] [address] Krystle Heaton Potassium [Moles/Vol] 3.7 mmol/L Normal 3.4-5.0 [facility] Comment on above: Performed By: #### T 7, LIPA, TSH, AMADOU, CMP #### [facility] [address] [place] [address] Dr. Krystle Heaton Protein [Mass/Vol] 7.2 g/dL Normal 6.1-8.2 [facility] Comment on above: Performed By: #### T 7, LIPA, TSH, AMADOU, CMP #### [facility] [address] [place] [address] Dr. Krystle Heaton Sodium [Moles/Vol] 138 mmol/L Normal 137-145 [facility] Comment on above: Performed By: #### T 7, LIPA, TSH, AMADOU, CMP #### [facility] [address] [place] [address] Dr. Krystle Heaton Urea nitrogen [Mass/Vol] 10.0 mg/dL Normal 9.0-20.0 [facility] Comment on above: Performed By: #### T 7, LIPA, TSH, AMADOU, CMP #### [facility] [address] [place] [address] Dr. Krystle Heaton Urea nitrogen/Creatinine [Mass ratio] 9.3 mg/mg Normal [facility] Comment on above: Performed By: #### T 7, LIPA, TSH, AMADOU, CMP #### [facility] [address] [place] [address] Dr. Krystle Heaton TSHon 03-17-2021 TSH 1.904 uIU/mL Normal 0.470-4.680 [facility] Comment on above: Performed By: #### T 7, LIPA, TSH, AMADOU, CMP #### [facility] [address] [place] [address] Dr. Krystle Heaton TSH RANGE SEE BELOW Normal [facility] Comment on above: Result Comment: <0.3 4 UIU/ml HYPERTHYROID 0.34-5.60 UIU/ml EUTHYROID >5.60 UIU/ml HYPOTHYROID Performed By: #### T 7, LIPA, TSH, AMADOU, CMP #### [facility] [address] [place] [address] Dr. Krystle Heaton CBC AUTO DIFFon 03-08-2021 BASO # 0.0 103/ul Normal 0.0-0.1 [facility] Comment on above: Performed By: #### T 7, LIPA, TSH, AMADOU, CMP #### [facility] [address] [place] [address] Dr. Krystle Heaton Basophils/100 WBC (Bld) 0.8 % Normal 0.2-2.0 [facility] Comment on above: Performed By: #### T 7, LIPA, TSH, AMADOU, CMP #### [facility] [address] [place] [address] Dr. Krystle Heaton EO # 0.1 103/ul Normal 0.0-0.7 [facility] Comment on above: Performed By: #### T 7, LIPA, TSH, AMADOU, CMP #### [facility] [address] [place] [address] Dr. Krystle Heaton Eosinophils/100 WBC (Bld) 1.5 % Normal 0.9-7.0 [facility] Comment on above: Performed By: #### T 7, LIPA, TSH, AMADOU, CMP #### [facility] [address] [place] [address] Dr. Krystle Heaton Erythrocyte distribution width (RBC) [Ratio] 12.2 % Normal 11.0-15.0 [facility] Comment on above: Performed By: #### T 7, LIPA, TSH, AMADOU, CMP #### [facility] [address] [place] [address] Dr. Krystle Heaton Hematocrit (Bld) [Volume fraction] 45.5 % Normal 42.0-54.0 [facility] Comment on above: Performed By: #### T 7, LIPA, TSH, AMADOU, CMP #### [facility] [address] [place] [address] Dr. Krystle Heaton Hemoglobin (Bld) [Mass/Vol] 15.9 g/dL Normal 14.0-18.0 [facility] Comment on above: Performed By: #### T 7, LIPA, TSH, AMADOU, CMP #### [facility] [address] [place] [address] Dr. Krystle Heaton IG # 0.01 10e3/ul Normal 0.00-0.03 [facility] Comment on above: Performed By: #### T 7, LIPA, TSH, AMADOU, CMP #### [facility] [address] [place] [address] Dr. Krystle Heaton IG % 0.2 % Normal 0.0-0.5 [facility] Comment on above: Performed By: #### T 7, LIPA, TSH, AMADOU, CMP #### [facility] [address] [place] [address] Dr. Krystle Heaton LYMPH # 1.8 103/ul Normal 1.2-3.8 [facility] Comment on above: Performed By: #### T 7, LIPA, TSH, AMADOU, CMP #### [facility] [address] [place] [address] Dr. Krystle Heaton Lymphocytes/100 WBC (Bld) 37.8 % Normal 20.5-60.0 [facility] Comment on above: Performed By: #### T 7, LIPA, TSH, AMADOU, CMP #### [facility] [address] [place] [address] Dr. Krystle Heaton MANUAL DIFF REQ NO Normal [facility] Comment on above: Performed By: #### T 7, LIPA, TSH, AMADOU, CMP #### [facility] [address] [place] [address] Dr. Krystle Heaton MCH (RBC) [Entitic mass] 36.4 pg Critically high 25.9-34.0 [facility] Comment on above: Performed By: #### T 7, LIPA, TSH, AMADOU, CMP #### [facility] [address] [place] [address] Dr. Krystle Heaton MCHC (RBC) [Mass/Vol] 34.9 g/dL Normal 29.9-35.2 [facility] Comment on above: Performed By: #### T 7, LIPA, TSH, AMADOU, CMP #### [facility] [address] [place] [address] Dr. Krystle Heaton MCV (RBC) [Entitic vol] 104.1 fL Critically high 80.0-94.0 [facility] Comment on above: Performed By: #### T 7, LIPA, TSH, AMADOU, CMP #### [facility] [address] [place] [address] Dr. Krystle Heaton MONO # 0.4 103/ul Normal 0.3-0.8 [facility] Comment on above: Performed By: #### T 7, LIPA, TSH, AMADOU, CMP #### [facility] [address] [place] [address] Dr. Krystle Heaton Monocytes/100 WBC (Bld) 8.3 % Normal 1.7-12.0 [facility] Comment on above: Performed By: #### T 7, LIPA, TSH, AMADOU, CMP #### [facility] [address] [place] [address] Dr. Krystle Heaton NEUT # 2.4 103/ul Normal 1.4-6.5 [facility] Comment on above: Performed By: #### T 7, LIPA, TSH, AMADOU, CMP #### [facility] [address] [place] [address] Dr. Krystle Heaton Neutrophils/100 WBC (Bld) 51.4 % Normal 43.0-75.0 [facility] Comment on above: Performed By: #### T 7, LIPA, TSH, AMADOU, CMP #### [facility] [address] [place] [address] Dr. Krystle Heaton Platelet mean volume (Bld) [Entitic vol] 10.8 fL Normal 9.5-13.5 [facility] Comment on above: Performed By: #### T 7, LIPA, TSH, AMADOU, CMP #### [facility] [address] [place] [address] Dr. Krystle Heaton PLT 175 103/ul Normal 150-450 [facility] Comment on above: Performed By: #### T 7, LIPA, TSH, AMADOU, CMP #### [facility] [address] [place] [address] Dr. Krystle Heaton RBC 4.37 106/ul Critically low 4.70-6.10 [facility] Comment on above: Performed By: #### T 7, LIPA, TSH, AMADOU, CMP #### [facility] [address] [place] [address] Dr. Krystle Heaton WBC 4.7 103/ul Normal 4.0-11.0 [facility] Comment on above: Performed By: #### T 7, LIPA, TSH, AMADOU, CMP #### [facility] [address] [place] [address] Dr. Krystle Heaton FERRITINon 03-08-2021 Ferritin [Mass/Vol] ng/mL Critically high 17.9-464.0 [facility] Comment on above: Performed By: #### T 7, LIPA, TSH, AMADOU, CMP #### [facility] [address] [place] [address] Dr. Krystle Heaton FREE T4on 03-08-2021 Free T4 [Mass/Vol] 0.73 ng/dL Critically low 0.78-2.19 [facility] Comment on above: Performed By: #### T 7, LIPA, TSH, AMADOU, CMP #### [facility] [address] [place] [address] Dr. Krystle Heaton IRON AND TIBCon 03-08-2021 % SATURATION 102.2 % Normal [facility] Comment on above: Performed By: #### T 7, LIPA, TSH, AMADOU, CMP #### [facility] [address] [place] [address] Dr. Krystle Heaton Iron [Mass/Vol] 279.0 ug/dL Critically high 49.0-181.0 [facility] Comment on above: Performed By: #### T 7, LIPA, TSH, AMADOU, CMP #### [facility] [address] [place] [address] Dr. Krystle Heaton TIBC DIRECT 273.0 ug/dL Normal 261.0-497.0 [facility] Comment on above: Performed By: #### T 7, LIPA, TSH, AMADOU, CMP #### [facility] [address] [address] [address] Krystle Heaton PROF 14(COMP METB)on 021 Albumin [Mass/Vol] 3.6 g/dL Normal 3.5-5.0 [facility] Comment on above: Performed By: #### T 7, LIPA, TSH, AMADOU, CMP #### [facility] [address] [place] [address] Dr. Krystle Heaton Albumin/Globulin [Mass ratio] 1.0 {ratio} Normal [facility] Comment on above: Performed By: #### T 7, LIPA, TSH, AMADOU, CMP #### [facility] [address] [place] [address] Dr. Krystle Heaton ALP [Catalytic activity/Vol] 68 U/L Normal 38-126 [facility] Comment on above: Performed By: #### T 7, LIPA, TSH, AMADOU, CMP #### [facility] [address] [address] [address] Krystle Heaton ALT [Catalytic activity/Vol] 58 U/L Normal 21-72 [facility] Comment on above: Performed By: #### T 7, LIPA, TSH, AMADOU, CMP #### [facility] [address] [address] [address] Krystle Heaton Anion gap [Moles/Vol] 15.5 mmol/L Normal [facility] Comment on above: Performed By: #### T 7, LIPA, TSH, AMADOU, CMP #### [facility] [address] [address] [address] Krystle Heaton AST [Catalytic activity/Vol] 56 U/L Normal 17-59 [facility] Comment on above: Performed By: #### T 7, LIPA, TSH, AMADOU, CMP #### [facility] [address] [address] [address] Krystle Heaton Bilirubin [Mass/Vol] 0.7 mg/dL Normal 0.2-1.3 [facility] Comment on above: Performed By: #### T 7, LIPA, TSH, AMADOU, CMP #### [facility] [address] [place] [address] Dr. Krystle Heaton Calcium [Mass/Vol] 8.9 mg/dL Normal 8.4-10.2 [facility] Comment on above: Performed By: #### T 7, LIPA, TSH, AMADOU, CMP #### [facility] [address] [place] [address] Dr. Krystle Heaton Chloride [Moles/Vol] 100 mmol/L Normal 98-107 [facility] Comment on above: Performed By: #### T 7, LIPA, TSH, AMADOU, CMP #### [facility] [address] [place] [address] Dr. Krystle Heaton CO2 [Moles/Vol] 26.6 mmol/L Normal 22.0-30.0 [facility] Comment on above: Performed By: #### T 7, LIPA, TSH, AMADOU, CMP #### [facility] [address] [place] [address] Dr. Krystle Heaton Creatinine [Mass/Vol] 1.12 mg/dL Normal 0.66-1.25 [facility] Comment on above: Performed By: #### T 7, LIPA, TSH, AMADOU, CMP #### [facility] [address] [place] [address] Dr. Krystle Heaton EGFR-AF CENTRAL AFRICAN >60 Normal >=60 [facility] Comment on above: Performed By: #### T 7, LIPA, TSH, AMADOU, CMP #### [facility] [address] [place] [address] Dr. Krystle Heaton EGFR-NON AF CENTRAL AFRICAN >60 Normal >=60 [facility] Comment on above: Performed By: #### T 7, LIPA, TSH, AMADOU, CMP #### [facility] [address] [place] [address] Dr. Krystle Heaton Globulin (S) [Mass/Vol] 3.7 g/dL Normal [facility] Comment on above: Performed By: #### T 7, LIPA, TSH, AMADOU, CMP #### [facility] [address] [place] [address] Dr. Krystle Heaton Glucose [Mass/Vol] 101 mg/dL Normal 74-106 [facility] Comment on above: Performed By: #### T 7, LIPA, TSH, AMADOU, CMP #### [facility] [address] [place] [address] Dr. Krystle Heaton Potassium [Moles/Vol] 4.1 mmol/L Normal 3.4-5.0 [facility] Comment on above: Performed By: #### T 7, LIPA, TSH, AMADOU, CMP #### [facility] [address] [place] [address] Dr. Krystle Heaton Protein [Mass/Vol] 7.3 g/dL Normal 6.1-8.2 [facility] Comment on above: Performed By: #### T 7, LIPA, TSH, AMADOU, CMP #### [facility] [address] [place] [address] Dr. Krystle Heaton Sodium [Moles/Vol] 138 mmol/L Normal 137-145 [facility] Comment on above: Performed By: #### T 7, LIPA, TSH, AMADOU, CMP #### [facility] [address] [place] [address] Dr. Krystle Heaton Urea nitrogen [Mass/Vol] 17.0 mg/dL Normal 9.0-20.0 [facility] Comment on above: Performed By: #### T 7, LIPA, TSH, AMADOU, CMP #### [facility] [address] [place] [address] Dr. Krystle Heaton Urea nitrogen/Creatinine [Mass ratio] 15.2 mg/mg Normal [facility] Comment on above: Performed By: #### T 7, LIPA, TSH, AMADOU, CMP #### [facility] [address] [place] [address] Dr. Krystle Heaton TSHon 03-08-2021 TSH 1.781 uIU/mL Normal 0.470-4.680 [facility] Comment on above: Performed By: #### T 7, LIPA, TSH, AMADOU, CMP #### [facility] [address] [place] [address] Dr. Krystle Heaton TSH RANGE SEE BELOW Normal [facility] Comment on above: Result Comment: <0.3 4 UIU/ml HYPERTHYROID 0.34-5.60 UIU/ml EUTHYROID >5.60 UIU/ml HYPOTHYROID Performed By: #### T 7, LIPA, TSH, AMADOU, CMP #### [facility] [address] [place] [address] Dr. Krystle Heaton FERRITINon 02-03-2021 Ferritin [Mass/Vol] ng/mL Critically high 17.9-464.0 [facility] Comment on above: Performed By: #### C BC #### [facility] [address] [place] [address] Billy Devlin [facility]on SARS-CoV-2 (COVID-19) RNA JIMBO+probe Ql (Unsp spec) Not detected Normal NOT DETECTED [facility] Comment on above: Result Comment: This test is not yet approved or cleared by the [place] FDA. When there are no FDA-approved or cleared tests available, and other criteria are met, FDA can make tests available under an emergency access mechanism called an Emergency Use Authorization (EUA). The EUA for this test is supported by the [place] of Health and Human Service's (HHS's) declaration [...] T 7, LIPA, TSH, AMADOU, CMP #### [facility] [address] [place] [address] Dr. Krystle Heaton CBC AUTO DIFFon 01-06-2021 BASO # 0.0 103/ul Normal 0.0-0.1 [facility] Comment on above: Performed By: #### T 7, LIPA, TSH, AMADOU, CMP #### [facility] [address] [place] [address] Dr. Krystle Heaton Basophils/100 WBC (Bld) 1.0 % Normal 0.2-2.0 [facility] Comment on above: Performed By: #### T 7, LIPA, TSH, AMADOU, CMP #### [facility] [address] [place] [address] Dr. Krystle Heaton EO # 0.1 103/ul Normal 0.0-0.7 [facility] Comment on above: Performed By: #### T 7, LIPA, TSH, AMADOU, CMP #### [facility] [address] [place] [address] Dr. Krystle Heaton Eosinophils/100 WBC (Bld) 2.5 % Normal 0.9-7.0 [facility] Comment on above: Performed By: #### T 7, LIPA, TSH, AMADOU, CMP #### [facility] [address] [place] [address] Dr. Krystle Heaton Erythrocyte distribution width (RBC) [Ratio] 13.7 % Normal 11.0-15.0 [facility] Comment on above: Performed By: #### T 7, LIPA, TSH, AMADOU, CMP #### [facility] [address] [place] [address] Dr. Krystle Heaton Hematocrit (Bld) [Volume fraction] 44.1 % Normal 42.0-54.0 [facility] Comment on above: Performed By: #### T 7, LIPA, TSH, AMADOU, CMP #### [facility] [address] [place] [address] Dr. Krystle Heaton Hemoglobin (Bld) [Mass/Vol] 15.0 g/dL Normal 14.0-18.0 [facility] Comment on above: Performed By: #### T 7, LIPA, TSH, AMADOU, CMP #### [facility] [address] [place] [address] Dr. Krystle Heaton IG # 0.02 10e3/ul Normal 0.00-0.03 [facility] Comment on above: Performed By: #### T 7, LIPA, TSH, AMADOU, CMP #### [facility] [address] [place] [address] Dr. Krystle Heaton IG % 0.5 % Normal 0.0-0.5 [facility] Comment on above: Performed By: #### T 7, LIPA, TSH, AMADOU, CMP #### [facility] [address] [place] [address] Dr. Krystle Heaton LYMPH # 1.6 103/ul Normal 1.2-3.8 [facility] Comment on above: Performed By: #### T 7, LIPA, TSH, AMADOU, CMP #### [facility] [address] [place] [address] Dr. Krystle Heaton Lymphocytes/100 WBC (Bld) 40.7 % Normal 20.5-60.0 [facility] Comment on above: Performed By: #### T 7, LIPA, TSH, AMADOU, CMP #### [facility] [address] [place] [address] Dr. Krystle Heaton MANUAL DIFF REQ NO Normal [facility] Comment on above: Performed By: #### T 7, LIPA, TSH, AMADOU, CMP #### [facility] [address] [place] [address] Dr. Krystle Heaton MCH (RBC) [Entitic mass] 36.2 pg Critically high 25.9-34.0 [facility] Comment on above: Performed By: #### T 7, LIPA, TSH, AMADOU, CMP #### [facility] [address] [place] [address] Dr. Krystle Heaton MCHC (RBC) [Mass/Vol] 34.0 g/dL Normal 29.9-35.2 [facility] Comment on above: Performed By: #### T 7, LIPA, TSH, AMADOU, CMP #### [facility] [address] [place] [address] Dr. Krystle Heaton MCV (RBC) [Entitic vol] 106.5 fL Critically high 80.0-94.0 [facility] Comment on above: Performed By: #### T 7, LIPA, TSH, AMADOU, CMP #### [facility] [address] [place] [address] Dr. Krystle Heaton MONO # 0.3 103/ul Normal 0.3-0.8 [facility] Comment on above: Performed By: #### T 7, LIPA, TSH, AMADOU, CMP #### [facility] [address] [place] [address] Dr. Krystle Heaton Monocytes/100 WBC (Bld) 8.1 % Normal 1.7-12.0 [facility] Comment on above: Performed By: #### T 7, LIPA, TSH, AMADOU, CMP #### [facility] [address] [place] [address] Dr. Krystle Heaton NEUT # 1.9 103/ul Normal 1.4-6.5 [facility] Comment on above: Performed By: #### T 7, LIPA, TSH, AMADOU, CMP #### [facility] [address] [place] [address] Dr. Krystle Heaton Neutrophils/100 WBC (Bld) 47.2 % Normal 43.0-75.0 [facility] Comment on above: Performed By: #### T 7, LIPA, TSH, AMADOU, CMP #### [facility] [address] [place] [address] Dr. Krystle Heaton Platelet mean volume (Bld) [Entitic vol] 11.6 fL Normal 9.5-13.5 [facility] Comment on above: Performed By: #### T 7, LIPA, TSH, AMADOU, CMP #### [facility] [address] [place] [address] Dr. Krystle Heaton PLT 184 103/ul Normal 150-450 [facility] Comment on above: Performed By: #### T 7, LIPA, TSH, AMADOU, CMP #### [facility] [address] [place] [address] Dr. Krystle Heaton RBC 4.14 106/ul Critically low 4.70-6.10 [facility] Comment on above: Performed By: #### T 7, LIPA, TSH, AMADOU, CMP #### [facility] [address] [place] [address] Dr. Krystle Heaton WBC 4.0 103/ul Normal 4.0-11.0 [facility] Comment on above: Performed By: #### T 7, LIPA, TSH, AMADOU, CMP #### [facility] [address] [place] [address] Dr. Krystle Heaton FERRITINon 01-06-2021 Ferritin [Mass/Vol] ng/mL Critically high 17.9-464.0 [facility] Comment on above: Performed By: #### H BSANS #### [facility] [address] [place] [address] Billy Devlin CBC AUTO DIFFon 12-09-2020 BASO # 0.0 103/ul Normal 0.0-0.1 [facility] Comment on above: Performed By: #### T 7, LIPA, TSH, AMADOU, CMP #### [facility] [address] [place] [address] Dr. Krystle Heaton Basophils/100 WBC (Bld) 0.6 % Normal 0.2-2.0 [facility] Comment on above: Performed By: #### T 7, LIPA, TSH, AMADOU, CMP #### [facility] [address] [place] [address] Dr. Krystle Heaton EO # 0.1 103/ul Normal 0.0-0.7 [facility] Comment on above: Performed By: #### T 7, LIPA, TSH, AMADOU, CMP #### [facility] [address] [place] [address] Dr. Krystle Heaton Eosinophils/100 WBC (Bld) 2.6 % Normal 0.9-7.0 [facility] Comment on above: Performed By: #### T 7, LIPA, TSH, AMADOU, CMP #### [facility] [address] [place] [address] Dr. Krystle Heaton Erythrocyte distribution width (RBC) [Ratio] 13.0 % Normal 11.0-15.0 [facility] Comment on above: Performed By: #### T 7, LIPA, TSH, AMADOU, CMP #### [facility] [address] [place] [address] Dr. Krystle Heaton Hematocrit (Bld) [Volume fraction] 46.2 % Normal 42.0-54.0 [facility] Comment on above: Performed By: #### T 7, LIPA, TSH, AMADOU, CMP #### [facility] [address] [place] [address] Dr. Krystle Heaton Hemoglobin (Bld) [Mass/Vol] 16.0 g/dL Normal 14.0-18.0 [facility] Comment on above: Performed By: #### T 7, LIPA, TSH, AMADOU, CMP #### [facility] [address] [place] [address] Dr. Krystle Heaton IG # 0.01 10e3/ul Normal 0.00-0.03 [facility] Comment on above: Performed By: #### T 7, LIPA, TSH, AMADOU, CMP #### [facility] [address] [place] [address] Dr. Krystle Heaton IG % 0.2 % Normal 0.0-0.5 [facility] Comment on above: Performed By: #### T 7, LIPA, TSH, AMADOU, CMP #### [facility] [address] [place] [address] Dr. Krystle Heaton LYMPH # 1.3 103/ul Normal 1.2-3.8 [facility] Comment on above: Performed By: #### T 7, LIPA, TSH, AMADOU, CMP #### [facility] [address] [place] [address] Dr. Krystle Heaton Lymphocytes/100 WBC (Bld) 27.8 % Normal 20.5-60.0 [facility] Comment on above: Performed By: #### T 7, LIPA, TSH, AMADOU, CMP #### [facility] [address] [place] [address] Dr. Krystle Heaton MANUAL DIFF REQ NO Normal [facility] Comment on above: Performed By: #### T 7, LIPA, TSH, AMADOU, CMP #### [facility] [address] [place] [address] Dr. Krystle Heaton MCH (RBC) [Entitic mass] 34.9 pg Critically high 25.9-34.0 [facility] Comment on above: Performed By: #### T 7, LIPA, TSH, AMADOU, CMP #### [facility] [address] [place] [address] Dr. Krystle Heaton MCHC (RBC) [Mass/Vol] 34.6 g/dL Normal 29.9-35.2 [facility] Comment on above: Performed By: #### T 7, LIPA, TSH, AMADOU, CMP #### [facility] [address] [place] [address] Dr. Krystle Heaton MCV (RBC) [Entitic vol] 100.9 fL Critically high 80.0-94.0 [facility] [facility] Comment on above: Performed By: #### T 7, LIPA, TSH, AMADOU, CMP #### [facility] [address] [place] [address] Dr. Krystle Heaton MONO # 0.3 103/ul Normal 0.3-0.8 [facility] Comment on above: Performed By: #### T 7, LIPA, TSH, AMADOU, CMP #### [facility] [address] [place] [address] Dr. Krystle Heaton Monocytes/100 WBC (Bld) 6.6 % Normal 1.7-12.0 [facility] Comment on above: Performed By: #### T 7, LIPA, TSH, AMADOU, CMP #### [facility] [address] [place] [address] Dr. Krystle Heaton NEUT # 2.9 103/ul Normal 1.4-6.5 [facility] Comment on above: Performed By: #### T 7, LIPA, TSH, AMADOU, CMP #### [facility] [address] [place] [address] Dr. Krystle Heaton Neutrophils/100 WBC (Bld) 62.2 % Normal 43.0-75.0 [facility] Comment on above: Performed By: #### T 7, LIPA, TSH, AMADOU, CMP #### [facility] [address] [address] [address] Krystle Heaton Platelet mean volume (Bld) [Entitic vol] 11.0 fL Normal 9.5-13.5 [facility] Comment on above: Performed By: #### T 7, LIPA, TSH, AMADOU, CMP #### [facility] [address] [place] [address] Dr. Krystle Heaton PLT 171 103/ul Normal 150-450 [facility] Comment on above: Performed By: #### T 7, LIPA, TSH, AMADOU, CMP #### [facility] [address] [place] [address] Dr. Krystle Heaton RBC 4.58 106/ul Critically low 4.70-6.10 [facility] Comment on above: Performed By: #### T 7, LIPA, TSH, AMADOU, CMP #### [facility] [address] [place] [address] Dr. Krystle Heaton WBC 4.7 103/ul Normal 4.0-11.0 [facility] Comment on above: Performed By: #### T 7, LIPA, TSH, AMADOU, CMP #### [facility] [address] [place] [address] Dr. Krystle Heaton PROF 14(COMP METB)on 021 Albumin [Mass/Vol] 3.9 g/dL Normal 3.5-5.0 [facility] Comment on above: Performed By: #### T 7, LIPA, TSH, AMADOU, CMP #### [facility] [address] [place] [address] Dr. Krystle Heaton Albumin/Globulin [Mass ratio] 1.1 {ratio} Normal [facility] Comment on above: Performed By: #### T 7, LIPA, TSH, AMADOU, CMP #### [facility] [address] [place] [address] Dr. Krystle Heaton ALP [Catalytic activity/Vol] 86 U/L Normal 38-126 [facility] Comment on above: Performed By: #### T 7, LIPA, TSH, AMADOU, CMP #### [facility] [address] [place] [address] Dr. Krystle Heaton ALT [Catalytic activity/Vol] 87 U/L Critically high 21-72 [facility] Comment on above: Performed By: #### T 7, LIPA, TSH, AMADOU, CMP #### [facility] [address] [place] [address] Dr. Krystle Heaton Anion gap [Moles/Vol] 15.7 mmol/L Normal [facility] Comment on above: Performed By: #### T 7, LIPA, TSH, AMADOU, CMP #### [facility] [address] [place] [address] Dr. Krystle Heaton AST [Catalytic activity/Vol] 70 U/L Critically high 17-59 [facility] Comment on above: Performed By: #### T 7, LIPA, TSH, AMADOU, CMP #### [facility] [address] [place] [address] Dr. Krystle Heaton Bilirubin [Mass/Vol] 1.4 mg/dL Critically high 0.2-1.3 [facility] Comment on above: Performed By: #### T 7, LIPA, TSH, AMADOU, CMP #### [facility] [address] [place] [address] Dr. Krystle Heaton Calcium [Mass/Vol] 9.3 mg/dL Normal 8.4-10.2 [facility] Comment on above: Performed By: #### T 7, LIPA, TSH, AMADOU, CMP #### [facility] [address] [place] [address] Dr. Krystle Heaton Chloride [Moles/Vol] 102 mmol/L Normal 98-107 [facility] Comment on above: Performed By: #### T 7, LIPA, TSH, AMADOU, CMP #### [facility] [address] [place] [address] Dr. Krystle Heaton CO2 [Moles/Vol] 26.5 mmol/L Normal 22.0-30.0 [facility] Comment on above: Performed By: #### T 7, LIPA, TSH, AMADOU, CMP #### [facility] [address] [place] [address] Dr. Krystle Heaton Creatinine [Mass/Vol] 1.27 mg/dL Critically high 0.66-1.25 [facility] Comment on above: Performed By: #### T 7, LIPA, TSH, AMADOU, CMP #### [facility] [address] [place] [address] Dr. Krystle Heaton EGFR-AF CENTRAL AFRICAN >60 Normal >=60 [facility] Comment on above: Performed By: #### T 7, LIPA, TSH, AMADOU, CMP #### [facility] [address] [place] [address] Dr. Krystle Heaton EGFR-NON AF CENTRAL AFRICAN =60 Normal >=60 [facility] Comment on above: Performed By: #### T 7, LIPA, TSH, AMADOU, CMP #### [facility] [address] [place] [address] Dr. Krystle Heaton Globulin (S) [Mass/Vol] 3.5 g/dL Normal [facility] Comment on above: Performed By: #### T 7, LIPA, TSH, AMADOU, CMP #### [facility] [address] [place] [address] Dr. Krystle Heaton Glucose [Mass/Vol] 120 mg/dL Critically high 74-106 [facility] Comment on above: Performed By: #### T 7, LIPA, TSH, AMADOU, CMP #### [facility] [address] [place] [address] Dr. Krystle Heaton Potassium [Moles/Vol] 4.2 mmol/L Normal 3.4-5.0 [facility] Comment on above: Performed By: #### T 7, LIPA, TSH, AMADOU, CMP #### [facility] [address] [place] [address] Dr. Krystle Heaton Protein [Mass/Vol] 7.4 g/dL Normal 6.1-8.2 [facility] Comment on above: Performed By: #### T 7, LIPA, TSH, AMADOU, CMP #### [facility] [address] [place] [address] Dr. Krystle Heaton Sodium [Moles/Vol] 140 mmol/L Normal 137-145 [facility] Comment on above: Performed By: #### T 7, LIPChasidy, TSH, AMADOU, CMP #### [facility] [address] [place] [address] Dr. Krystle Heaton Urea nitrogen [Mass/Vol] 12.0 mg/dL Normal 9.0-20.0 [facility] Comment on above: Performed By: #### T 7, LIPChasidy, TSH, AMADOU, CMP #### [facility] [address] [place] [address] Dr. Krystle Heaton Urea nitrogen/Creatinine [Mass ratio] 9.4 mg/mg Normal [facility] Comment on above: Performed By: #### T 7, LA, SAVITA, AMADOU, CMP #### [facility] [address] [place] [address] Dr. Krystle Heaton PROTIMEon 12-09-2020 INR Coag (PPP) [Relative time] 0.96 {INR} Normal [facility] Comment on above: Performed By: #### H BSANS #### [facility] [address] [place] [address] Billy Devlin INR GUIDELINES SEE BELOW Normal [facility] Comment on above: Result Comment: MOUNA RED INR: 2.0 - 3.0 CONDITIONS NOT LISTED BELOW 2.5 - 3.5 FOR PROSTHETIC HEART VALVE REPLACEMENT 2.5 - 3.5 RECURRENT THROMBOSIS Performed By: #### H BSANS #### [facility] [address] [place] [address] Billy Devlin PT Coag (PPP) [Time] 10.5 s Normal 9.0-11.6 [facility] Comment on above: Performed By: #### H BSANS #### [facility] [address] [place] [address] Billy Devlin US SINGLE QUAD RT UPPERon [...] KRISTEN GODINEZ Date: 2020-12-09 10:23 Normal [facility] Encounters Encounter Date Encounter Type Care Provider Facility Start: 07-14-2024 End: 07-14-2024 ambulatory RASHAWN H TIMMIS Not Available Start: 05-26-2024 End: 05-26-2024 ambulatory RASHAWN H TIMMIS Not Available Start: 05-24-2024 End: 05-24-2024 ambulatory DARIEN WARE Not Available Start: 04-03-2022 End: 04-03-2022 ambulatory Magaly Sewell Facility:[facility] Start: 11-26-2021 End: 11-27-[address] GENEVIEVE ARREOLA Facility:[facility] Start: 11-15-2021 End: 11-15-[address] GENEVIEVE ARREOLA Facility:[facility] Start: 10-08-2021 End: 10-09-[address] AMADOU BROWN Facility:[facility] Start: 09-10-2021 End: 09-11-[address] AMADOU BROWN Facility:[facility] Start: 08-15-2021 End: 08-16-[address] AMADOU BORWN Facility:[facility] Start: 08-13-2021 Encounter for preprocedural laboratory examination DR DOCTOR PALUMBO [facility] Start: 08-10-2021 AUDIT No PCP None [facility] [address] [facility] Work Phone: Start: 08-02-2021 Chart Update No PCP None [facility] [address] [facility] Work Phone: Start: 07-28-2021 End: 07-29-2021 [...] ne w 45 minutes No PCP None [facility] [place] [address] [facility] Work Phone: Start: 04-06-2021 [...] No PCP None [facility] [address] [facility] Work Phone: Procedures Date Procedure Procedure Detail Performing Clinician Biopsy of liver No PCP None Repair of musculoten dinous cuff of shoulder No PCP None Payers Date Payer Category Payer Unknown [id number] 1970 Unknown [id number] 2.16.84 0.1.001956.3.579.2.593 1970 Unknown [id number] 2.16.84 0.1.485669.3.579.2.593 1970 Unknown [id number] 2.16.84 0.1.440318.3.579.2.593 1970 Unknown [id number] 2.16.84 0.1.322723.3.579.2.593 1969 Unknown [id number] 2.16.84 0.1.922631.3.579.2.593 1969 Unknown [id number] 2.16.84 0.1.957005.3.579.2.593 1969 Unknown [id number] 2.16.84 0.1.026691.3.579.2.593 1969 Unknown [id number] 2.16.84 0.1.117862.3.579.2.593 1969 Unknown [id number] 2.16.84 0.1.445327.3.579.2.593 1969 Unknown [id number] 2.16.84 0.1.903122.3.579.2.593 1969 Unknown [id number] 2.16.84 0.1.701364.3.579.2.593 1969 Unknown [id number] 2.16.84 0.1.476183.3.579.2.593 1969 Unknown [id number] 2.16.84 0.1.018127.3.579.2.593 1969 Unknown [id number] 2.16.84 0.1.761270.3.579.2.593 1969 Unknown [id number] 2.16.84 0.1.097772.3.579.2.593 1969 Unknown [id number] 2.16.84 0.1.949170.3.579.2.593 1969 Unknown [id number] 2.16.84 0.1.344696.3.579.2.593 1969 Unknown [id number] 2.16.84 0.1.305566.3.579.2.593 1969 Unknown [id number] 2.16.84 0.1.661348.3.579.2.593 1969 Unknown [id number] 2.16.84 0.1.174663.3.579.2.593 1969 Unknown [id number] 2.16.84 0.1.288465.3.579.2.593 1969 Unknown [id number] 2.16.84 0.1.230569.3.579.2.593 1969 Unknown [id number] 2.16.84 0.1.386553.3.579.2.1259 1969 Unknown [id number] 2.16.84 0.1.892803.3.579.2.1259 1969 Unknown [id number] 2.16.84 0.1.846317.3.579.2.1259 1960 Self-pay [id number] 1960 Self-pay 1960 Unknown [id number] Unknown ANTHEM Unknown [id number] 2.16.84 0.1.541045.3.579.2.593 Unknown [id number] 2.16.84 0.1.133731.3.579.2.593 Unknown [id number] 2.16.8 40.1.178171.3.579.2.531 Social History Date Type Detail Facility Former smoker Former smoker [facility] [address] [facility] Work Phone: Start: 1970 Sex Assigned At Male F [facility] Clinical Note 07-31-2021 Note Date & [...] report Procedure performed by: Sandy Roland MD [employer] Fil[employer] Attendant(s): Dee Lopes Md Estimated Blood Loss (mL): [...] Last Updated: 02-Aug-2021 13:04 by Sandy Roland) [facility] Clinical Note 05-08-2021 Note Date & Type Note Facility 05-08-2021 Note Pre-procedure Verifi cation and Time Out: Pre-Procedure Verification and Time Out: Procedure Locationprocedure area HUDDLE - Pre-procedure Verificationcompleted TIME OUT - Final Verificationcompleted DEBRIEFcompleted General Information: Anesthesia Critical Care: Non-Anesthesia Date/Time of Procedure: 08-May-2021 11:57 Post-Procedure Diagnosis: same Procedure Name: CT Liver Biopsy Findings: grossly normal anatomy Procedure performed by: me Sl[employer] Filtration Attendant(s): none Estimated Blood Loss (mL): none Specimen: [...] Last Updated: 08-May-2021 11:58 by Uri Bacon) [facility] Evaluation note Note Date & Type Note Facility Evaluation note No assessment information [facility] Work Phone: History of Present illness [...] no lower extremity edema.Symptom History:Modifying Factors:Associated Symptoms: [facility] [address] [facility] Work Phone: Chief Complaint [...] section and content) DATE CREATED AUTHOR 04/14/2021 [facility] DATE CREATED AUTHOR AUTHOR'S ORGANIZ ATION 05/15/2021 [facility] DATE CREATED AUTHOR AUTHOR'S ORGANIZ ATION [facility]/29/2021 [facility] DATE CREATED AUTHOR AUTHOR'S ORGANIZ ATION 04/15/2022 [facility] DATE CREATED AUTHOR AUTHOR'S ORGANIZ ATION 01/28/2023 [facility] DATE CREATED AUTHOR AUTHOR'S ORGANIZ ATION 05/24/2023 [facility] DATE CREATED AUTHOR AUTHOR'S ORGANIZ ATION 07/15/2024 [facility] EPIC Goals (unrecognized section and [...] BE BASED ON THE PRIMARY CLINICAL RECORDS. [facility] [employer] [facility] provides no warranty or guarantee of the accuracy or completeness of information in this document.
== END 2024-08-18 06:58 | disposition home or self-care (01) ==
LOC: CARD 06:58
PROVIDERS: PCP Family Medicine; Visit Provider Family Medicine
DX: R06.02 Shortness of breath (principal)
CPT/HCPCS: 93306

== ENCOUNTER 2024-08-31 08:26 | Outpatient (OUT) | payer OTHER, SELFPAY ==
--- NOTE | 2024-08-31 08:29 | CT_ITS ---
The [address] [address] Patient Name: ANGIE FRITZ MRN: [id number] date: 1970 Sex: M Assigned Patient Location: CT Current Patient Location: Accession/Order Number: [id number] Exam Date: 08/31/2024 09:35 Report Date: 09/01/2024 06:59 At the request of: GENEVIEVE ARREOLA Procedure: CT pelvis w con EXAMINATION: CT pelvis w con HISTORY: Edema R60.9 ; bilateral lower extremity edema COMPARISON: No relevant comparison available. TECHNIQUE: Axial, Coronal, and Sagittal images were obtained without and/or with IV contrast as indicated by examination type. Dose reduction techniques were achieved by using automated exposure control and/or adjustment of mA and/or kV according to patient size and/or use of iterative reconstruction technique FINDINGS: BOWEL: No abnormality of the visible bowl. LYMPH NODES: No adenopathy. URINARY BLADDER: No visible focal wall thickening, lesion, or calculus. PELVIC ORGANS: No visible mass. Pelvic organs appropriate for patient age. ANTERIOR WALL: No hernia. BONES: No bone lesion or fracture. OTHER: Mild-moderate atherosclerotic disease of distal aorta and common iliac arteries. Unremarkable iliac veins and distal inferior vena cava. Mild edema within the retroperitoneal fat and pelvic fat; nonspecific. CT/CT pelvis w con IMPRESSION: 1. No abnormal or suspicious findings to account for patient's bilateral lower extremity edema. 2. Mild haziness in the fat, likely edema within the distal retroperitoneum and lower pelvis; nonspecific. 3. Mild to moderate atherosclerotic disease. Electronically authenticated by: ZOE WYNN Date: 09/01/2024 06:59
--- OUTSIDE RECORDS SUMMARY | 2024-08-31 08:31 | XMS_ITS | CCD ---
Author Organization [facility] (deja mi)[facility] Care Team Providers Care Assistant Operations Manager Name Role Phone None, No PCP [...] DR AMADOU Chang Attending Unavailable MISC, DR PWOELL Consulting Unavailable MISC, DR POWELL Admitting Unavailable MISC, DR POWELL Attending Unavailable HOY, DR VALLEJO Primary Care Unavailable STEPHANIE, DR AMADOU Chang Consulting Unavailable HOY, DR VALLEJO Primary Care Unavailable STEPHANIE, DR AMADOU Chang Attending Unavailable STEPHANIE, DR AMADOU Chang Consulting Unavailable STEPHANIE, DR AMADOU Chang Admitting Unavailable STEPAHNIE, DR AMADOU Chang Attending Unavailable STEPHANIE, DR AMADOU Chang Consulting Unavailable STEPHANIE, DR AMADOU Chang Admitting Unavailable HOY, DR VALLEJO Primary Care Unavailable STEPHANIE, DR AMADOU Chang Attending Unavailable STEPHANIE, DR AMADOU hCang Consulting Unavailable STEPHANIE, DR AMADOU Chang Admitting [...] Allergy 2 Swelling of the Eye [facility] Repository (1 source) Morphine Drug Allergy 2 [facility] Repository Medications Current Medications Medication Drug [...] office Testingon 01-29-20 23 In office Testing [id number] Normal [facility] AMYLASEon 11-26-2021 Amylase [Catalytic activity/Vol] 53 U/L Normal 31-110 [facility] Comment on above: Performed By: #### T 7, LIPA, TSH, AMADOU, CMP #### [facility] Laboratory [address] [address] [address] Krystle Heaton CBC AUTO DIFFon 11-26-2021 BASO # 0.0 103/ul Normal 0.0-0.1 [facility] Comment on above: Performed By: #### F ERR #### [facility] Laboratory [address] [address] [address] Krystle Heaton Basophils/100 WBC (Bld) 0.6 % Normal 0.2-2.0 [facility] Comment on above: Performed By: #### F ERR #### [facility] [address] [address] [address] Krystle Heaton EO # 0.1 103/ul Normal 0.0-0.7 [facility] Comment on above: Performed By: #### F ERR #### [facility] [address] [address] [address] Krystle Heaton Eosinophils/100 WBC (Bld) 2.7 % Normal 0.9-7.0 [facility] Comment on above: Performed By: #### F ERR #### [facility] Laboratory [address] [place] [address] Dr. Krystle Heaton Erythrocyte distribution width (RBC) [Ratio] 16.0 % Critically high 11.0-15.0 [facility] Comment on above: Performed By: #### F ERR #### [facility] [address] [place] [address] Dr. Krystle Heaton Hematocrit (Bld) [Volume fraction] 42.8 % Normal 42.0-54.0 [facility] Comment on above: Performed By: #### F ERR #### [facility] [address] [place] [address] Dr. Krystle Heaton Hemoglobin (Bld) [Mass/Vol] 13.0 g/dL Critically low 14.0-18.0 [facility] Comment on above: Performed By: #### F ERR #### [facility] [address] [place] [address] Dr. Krystle Heaton IG # 0.02 10e3/ul Normal 0.00-0.03 [facility] Comment on above: Performed By: #### F ERR #### [facility] [address] [place] [address] Dr. Krystle Heaton IG % 0.4 % Normal 0.0-0.5 [facility] Comment on above: Performed By: #### F ERR #### [facility] [address] [address] [address] Krystle Heaton LYMPH # 0.9 103/ul Critically low 1.2-3.8 [facility] Comment on above: Performed By: #### F ERR #### [facility] [address] [address] [address] Krystle Heaton Lymphocytes/100 WBC (Bld) 19.1 % Critically low 20.5-60.0 [facility] Comment on above: Performed By: #### F ERR #### [facility] [address] [place] [address] Dr. Krystle Heaton MANUAL DIFF REQ NO Normal [facility] Comment on above: Performed By: #### F ERR #### [facility] [address] [place] [address] Dr. Krystle Heaton MCH (RBC) [Entitic mass] 27.7 pg Normal 25.9-34.0 [facility] Comment on above: Performed By: #### F ERR #### [facility] [address] [place] [address] Dr. Krystle Heaton MCHC (RBC) [Mass/Vol] 30.4 g/dL Normal 29.9-35.2 [facility] Comment on above: Performed By: #### F ERR #### [facility] [address] [place] [address] Dr. Krystle Heaton MCV (RBC) [Entitic vol] 91.1 fL Normal 80.0-94.0 [facility] Comment on above: Performed By: #### F ERR #### [facility] [address] [place] [address] Dr. Krystle Heaton MONO # 0.5 103/ul Normal 0.3-0.8 [facility] Comment on above: Performed By: #### F ERR #### [facility] [address] [place] [address] Dr. Krystle Heaton Monocytes/100 WBC (Bld) 10.4 % Normal 1.7-12.0 [facility] Comment on above: Performed By: #### F ERR #### [facility] [address] [address] [address] Krystle Heaton NEUT # 3.2 103/ul Normal 1.4-6.5 [facility] Comment on above: Performed By: #### F ERR #### [facility] [address] [place] [address] Dr. Krystle Heaton Neutrophils/100 WBC (Bld) 66.8 % Normal 43.0-75.0 [facility] Comment on above: Performed By: #### F ERR #### [facility] [address] [place] [address] Dr. Krystle Heaton Platelet mean volume (Bld) [Entitic vol] 11.3 fL Normal 9.5-13.5 [facility] Comment on above: Performed By: #### F ERR #### [facility] [address] [place] [address] Dr. Krystle Heaton PLT 177 103/ul Normal 150-450 [facility] Comment on above: Performed By: #### F ERR #### [facility] [address] [place] [address] Dr. Krystle Heaton RBC 4.70 106/ul Normal 4.70-6.10 [facility] Comment on above: Performed By: #### F ERR #### [facility] [address] [place] [address] Dr. Krystle Heaton WBC 4.8 103/ul Normal 4.0-11.0 [facility] Comment on above: Performed By: #### F ERR #### [facility] [address] [place] [address] Dr. Krystle Heaton FERRITINon 11-26-2021 Ferritin [Mass/Vol] 63.0 ng/mL Normal 17.9-464.0 [facility] Comment on above: Performed By: #### C BC #### [facility] [address] [place] [address] Billy Deanen FREE THYROXINE INDEX T7on FTI 2.14 Normal [facility] Comment on above: Performed By: #### T 7, LIPA, TSH, AMADOU, CMP #### [facility] [address] [place] [address] Dr. Krystle Heaton T3U 34.0 % Normal 23.5-40.5 [facility] Comment on above: Performed By: #### T 7, LIPA, TSH, AMADOU, CMP #### [facility] [address] [place] [address] Dr. Krystle Heaton T4 [Mass/Vol] 6.30 ug/dL Normal 5.53-11.00 [facility] Comment on above: Performed By: #### T 7, LIPA, TSH, AMADOU, CMP #### [facility] [address] [place] [address] Dr. Krystle Heaton LIPASEon 11-26-2021 Lipase [Catalytic activity/Vol] 115.0 U/L Normal 23.0-300.0 [facility] Comment on above: Performed By: #### T 7, LIPA, TSH, AMADOU, CMP #### [facility] [address] [place] [address] Dr. Krystle Heaton PROF 14(COMP METB)on 022 Albumin [Mass/Vol] 3.6 g/dL Normal 3.5-5.0 [facility] Comment on above: Performed By: #### T 7, LIPA, TSH, AMADOU, CMP #### [facility] [address] [place] [address] Dr. Krystle Heaton Albumin/Globulin [Mass ratio] 0.9 {ratio} Normal [facility] Comment on above: Performed By: #### T 7, LIPA, TSH, AMADOU, CMP #### [facility] [address] [place] [address] Dr. Krystle Heaton ALP [Catalytic activity/Vol] 94 U/L Normal 38-126 [facility] Comment on above: Performed By: #### T 7, LIPA, TSH, AMADOU, CMP #### [facility] [address] [place] [address] Dr. Krystle Heaton ALT [Catalytic activity/Vol] 103 U/L Critically high 21-72 [facility] Comment on above: Performed By: #### T 7, LIPA, TSH, AMADOU, CMP #### [facility] [address] [place] [address] Dr. Krystle Heaton Anion gap [Moles/Vol] 12.8 mmol/L Normal [facility] Comment on above: Performed By: #### T 7, LIPA, TSH, AMADOU, CMP #### [facility] [address] [place] [address] Dr. Krystle Heaton AST [Catalytic activity/Vol] 148 U/L Critically high 17-59 [facility] Comment on above: Performed By: #### T 7, LIPA, TSH, AMADOU, CMP #### [facility] [address] [address] [address] Krystle Heaton Bilirubin [Mass/Vol] 1.2 mg/dL Normal 0.2-1.3 [facility] Comment on above: Performed By: #### T 7, LIPA, TSH, AMADOU, CMP #### [facility] [address] [place] [address] Dr. Krystle Heaton Calcium [Mass/Vol] 9.1 mg/dL Normal 8.4-10.2 [facility] Comment on above: Performed By: #### T 7, LIPA, TSH, AMADOU, CMP #### [facility] [address] [place] [address] Dr. Krystle Heaton Chloride [Moles/Vol] 100 mmol/L Normal 98-107 [facility] Comment on above: Performed By: #### T 7, LIPA, TSH, AMADOU, CMP #### [facility] [address] [place] [address] Dr. Krystle Heaton CO2 [Moles/Vol] 26.7 mmol/L Normal 22.0-30.0 [facility] Comment on above: Performed By: #### T 7, LIPA, TSH, AMADOU, CMP #### [facility] [address] [place] [address] Dr. Krystle Heaton Creatinine [Mass/Vol] 0.94 mg/dL Normal 0.66-1.25 [facility] Comment on above: Performed By: #### T 7, LIPA, TSH, AMADOU, CMP #### [facility] [address] [place] [address] Dr. Krystle Heaton EGFR-AF CONGOLESE >60 Normal >=60 [facility] Comment on above: Performed By: #### T 7, LIPA, TSH, AMADOU, CMP #### [facility] [address] [address] [address] Krystle Heaton EGFR-NON AF CONGOLESE >60 Normal >=60 [facility] Comment on above: Performed By: #### T 7, LIPA, TSH, AMADOU, CMP #### [facility] [address] [address] [address] Krystle Heaton Globulin (S) [Mass/Vol] 4.0 g/dL Normal [facility] Comment on above: Performed By: #### T 7, LIPA, TSH, AMADOU, CMP #### [facility] [address] [address] [address] Krystle Heaton Glucose [Mass/Vol] 112 mg/dL Critically high 74-106 [facility] Comment on above: Performed By: #### T 7, LIPA, TSH, AMADOU, CMP #### [facility] [address] [address] [address] Krystle Heaton Potassium [Moles/Vol] 4.5 mmol/L Normal 3.4-5.0 [facility] Comment on above: Performed By: #### T 7, LIPA, TSH, AMADOU, CMP #### [facility] [address] [address] [address] Krystle Heaton Protein [Mass/Vol] 7.6 g/dL Normal 6.1-8.2 [facility] Comment on above: Performed By: #### T 7, LIPA, TSH, AMADOU, CMP #### [facility] [address] [address] [address] Krystle Heaton Sodium [Moles/Vol] 135 mmol/L Critically low 137-145 [facility] Comment on above: Performed By: #### T 7, LIPA, TSH, AMADOU, CMP #### [facility] [address] [address] [address] Krystle Heaton Urea nitrogen [Mass/Vol] 5.0 mg/dL Critically low 9.0-20.0 [facility] Comment on above: Performed By: #### T 7, LIPA, TSH, AMADOU, CMP #### [facility] [address] [place] [address] Dr. Krystle Heaton Urea nitrogen/Creatinine [Mass ratio] 5.3 mg/mg Normal [facility] Comment on above: Performed By: #### T 7, LIPA, TSH, AMADOU, CMP #### [facility] [address] [address] [address] Krystle Heaton TSHon 11-26-2021 TSH 1.842 uIU/mL Normal 0.470-4.680 [facility] Comment on above: Performed By: #### T 7, LIPA, TSH, AMADOU, CMP #### [facility] [address] [place] [address] Dr. Krystle Heaton TSH RANGE SEE BELOW Normal [facility] Comment on above: Result Comment: <0.3 4 UIU/ml HYPERTHYROID 0.34-5.60 UIU/ml EUTHYROID >5.60 UIU/ml HYPOTHYROID Performed By: #### T 7, LIPA, TSH, AMADOU, CMP #### [facility] [address] [place] [address] Dr. Krystle Heaton [facility]on SARS-CoV-2 (COVID-19) RNA JIMBO+probe Ql (Unsp spec) Not detected Normal NOT DETECTED [facility] Comment on above: Result Comment: This test is not yet approved or cleared by the [place] FDA. When there are no FDA-approved or cleared tests available, and other criteria are met, FDA can make tests available under an emergency access mechanism called an Emergency Use Authorization (EUA). The EUA for this test is supported by the Career Guidance Technician of Health and Human Service's (HHS's) declaration [...] SARS-CoV-2. Performed By: #### F ERR #### [facility] [address] [place] [address] Dr. Krystle Heaton CBC AUTO DIFFon 10-08-2021 BASO # 0.0 103/ul Normal 0.0-0.1 [facility] Comment on above: Performed By: #### T 7, LIPA, TSH, AMADOU, CMP #### [facility] [address] [place] [address] Dr. Krystle Heaton Basophils/100 WBC (Bld) 0.7 % Normal 0.2-2.0 [facility] Comment on above: Performed By: #### T 7, LIPA, TSH, AMADOU, CMP #### [facility] [address] [place] [address] Dr. Krystle Heaton EO # 0.2 103/ul Normal 0.0-0.7 [facility] Comment on above: Performed By: #### T 7, LIPA, TSH, AMADOU, CMP #### [facility] [address] [place] [address] Dr. Krystle Heaton Eosinophils/100 WBC (Bld) 3.6 % Normal 0.9-7.0 [facility] Comment on above: Performed By: #### T 7, LIPA, TSH, AMADOU, CMP #### [facility] [address] [place] [address] Dr. Krystle Heaton Erythrocyte distribution width (RBC) [Ratio] 16.0 % Critically high 11.0-15.0 [facility] Comment on above: Performed By: #### T 7, LIPA, TSH, AMADOU, CMP #### [facility] [address] [place] [address] Dr. Krystle Heaton Hematocrit (Bld) [Volume fraction] 38.7 % Critically low 42.0-54.0 [facility] Comment on above: Performed By: #### T 7, LIPA, TSH, AMADOU, CMP #### [facility] [address] [place] [address] Dr. Krystle Heaton Hemoglobin (Bld) [Mass/Vol] 11.7 g/dL Critically low 14.0-18.0 [facility] Comment on above: Performed By: #### T 7, LIPA, TSH, AMADOU, CMP #### [facility] [address] [place] [address] Dr. Krystle Heaton IG # 0.01 10e3/ul Normal 0.00-0.03 [facility] Comment on above: Performed By: #### T 7, LIPA, TSH, AMADOU, CMP #### [facility] [address] [place] [address] Dr. Krystle Heaton IG % 0.2 % Normal 0.0-0.5 [facility] Comment on above: Performed By: #### T 7, LIPA, TSH, AMADOU, CMP #### [facility] [address] [place] [address] Dr. Krystle Heaton LYMPH # 1.6 103/ul Normal 1.2-3.8 [facility] Comment on above: Performed By: #### T 7, LIPA, TSH, AMADOU, CMP #### [facility] [address] [place] [address] Dr. Krystle Heaton Lymphocytes/100 WBC (Bld) 29.2 % Normal 20.5-60.0 [facility] Comment on above: Performed By: #### T 7, LIPA, TSH, AMADOU, CMP #### [facility] [address] [place] [address] Dr. Krystle Heaton MANUAL DIFF REQ NO Normal [facility] Comment on above: Performed By: #### T 7, LIPA, TSH, AMADOU, CMP #### [facility] [address] [place] [address] Dr. Krystle Heaton MCH (RBC) [Entitic mass] 27.7 pg Normal 25.9-34.0 [facility] Comment on above: Performed By: #### T 7, LIPA, TSH, AMADOU, CMP #### [facility] [address] [place] [address] Dr. Krystle Heaton MCHC (RBC) [Mass/Vol] 30.2 g/dL Normal 29.9-35.2 [facility] Comment on above: Performed By: #### T 7, LIPA, TSH, AMADOU, CMP #### [facility] [address] [place] [address] Dr. Krystle Heaton MCV (RBC) [Entitic vol] 91.5 fL Normal 80.0-94.0 [facility] Comment on above: Performed By: #### T 7, LIPA, TSH, AMADOU, CMP #### [facility] [address] [place] [address] Dr. Krystle Heaton MONO # 0.6 103/ul Normal 0.3-0.8 [facility] Comment on above: Performed By: #### T 7, LIPA, TSH, AMADOU, CMP #### [facility] [address] [place] [address] Dr. Krystle Heaton Monocytes/100 WBC (Bld) 10.5 % Normal 1.7-12.0 [facility] Comment on above: Performed By: #### T 7, LIPA, TSH, AMADOU, CMP #### [facility] [address] [place] [address] Dr. Krystle Heaton NEUT # 3.1 103/ul Normal 1.4-6.5 [facility] Comment on above: Performed By: #### T 7, LIPA, TSH, AMADOU, CMP #### [facility] [address] [place] [address] Dr. Krystle Heaton Neutrophils/100 WBC (Bld) 55.8 % Normal 43.0-75.0 [facility] Comment on above: Performed By: #### T 7, LIPA, TSH, MAADOU, CMP #### [facility] [address] [place] [address] Dr. Krystle Heaton Platelet mean volume (Bld) [Entitic vol] 10.9 fL Normal 9.5-13.5 [facility] Comment on above: Performed By: #### T 7, LIPA, TSH, AMADOU, CMP #### [facility] [address] [place] [address] Dr. Krystle Heaton PLT 214 103/ul Normal 150-450 [facility] Comment on above: Performed By: #### T 7, LIPA, TSH, AMADOU, CMP #### [facility] [address] [place] [address] Dr. Krystle Heaton RBC 4.23 106/ul Critically low 4.70-6.10 [facility] Comment on above: Performed By: #### T 7, LIPA, TSH, AMADOU, CMP #### [facility] [address] [place] [address] Dr. Krystle Heaton WBC 5.5 103/ul Normal 4.0-11.0 [facility] Comment on above: Performed By: #### T 7, LIPA, TSH, AMADOU, CMP #### [facility] [address] [place] [address] Dr. Krystle Heaton FERRITINon 10-08-2021 Ferritin [Mass/Vol] 59.0 ng/mL Normal 17.9-464.0 [facility] Comment on above: Performed By: #### T 7, LIPA, TSH, AMADOU, CMP #### [facility] [address] [place] [address] Dr. Krystle Heaton CBC AUTO DIFFon 09-10-2021 BASO # 0.0 103/ul Normal 0.0-0.1 [facility] Comment on above: Performed By: #### C BC #### [facility] [address] [place] [address] Billy Quita Basophils/100 WBC (Bld) 0.8 % Normal 0.2-2.0 [facility] Comment on above: Performed By: #### C BC #### [facility] [address] [place] [address] Billy Quita EO # 0.1 103/ul Normal 0.0-0.7 [facility] Comment on above: Performed By: #### C BC #### [facility] [address] [place] [address] Billy Quita Eosinophils/100 WBC (Bld) 3.5 % Normal 0.9-7.0 [facility] Comment on above: Performed By: #### C BC #### [facility] [address] [place] [address] Billycarrillo Devlin Erythrocyte distribution width (RBC) [Ratio] 16.7 % Critically high 11.0-15.0 [facility] Comment on above: Performed By: #### C BC #### [facility] Laboratory [address] [place] [address] Billy Quita Hematocrit (Bld) [Volume fraction] 40.6 % Critically low 42.0-54.0 [facility] Comment on above: Performed By: #### C BC #### [facility] [place] [facility] Laboratory [address] [place] [address] Billy Quita Hemoglobin (Bld) [Mass/Vol] 12.4 g/dL Critically low 14.0-18.0 [facility] Comment on above: Performed By: #### C BC #### [facility] [place] [facility] Laboratory [address] [place] [address] Billy Quita IG # 0.01 10e3/ul Normal 0.00-0.03 [facility] Comment on above: Performed By: #### C BC #### [facility] [place] [facility] Laboratory [address] [place] [address] Billy Quita IG % 0.3 % Normal 0.0-0.5 [facility] Comment on above: Performed By: #### C BC #### [facility] [place] [facility] Laboratory [address] [place] [address] Billy Quita LYMPH # 1.5 103/ul Normal 1.2-3.8 [facility] Comment on above: Performed By: #### C BC #### [facility] [place] [facility] Laboratory [address] [place] [address] Billy Devlin Lymphocytes/100 WBC (Bld) 39.7 % Normal 20.5-60.0 [facility] Comment on above: Performed By: #### C BC #### [facility] [place] [facility] Laboratory [address] [place] [address] Billycarrillo Devlin MANUAL DIFF REQ NO Normal [facility] Comment on above: Performed By: #### C BC #### [facility] [place] [facility] Laboratory [address] [place], [place] [address] Billycarrillo Devlin MCH (RBC) [Entitic mass] 27.6 pg Normal 25.9-34.0 [facility] [place] [facility] Comment on above: Performed By: #### C BC #### [facility] [place] [facility] Laboratory [address] [place] [address] Billycarrillo Devlin MCHC (RBC) [Mass/Vol] 30.5 g/dL Normal 29.9-35.2 [facility] [place] [facility] Comment on above: Performed By: #### C BC #### [facility] [place] [facility] Laboratory [address] [place], [place] [id number] Billy Quita MCV (RBC) [Entitic vol] 90.2 fL Normal 80.0-94.0 [facility] Comment on above: Performed By: #### C BC #### [facility] [place] [facility] Laboratory [address] [place] [address] Billy Quita MONO # 0.5 103/ul Normal 0.3-0.8 [facility] Comment on above: Performed By: #### C BC #### [facility] [place] [facility] Laboratory [address] [place], [place] [id number] Billy Quita Monocytes/100 WBC (Bld) 13.3 % Critically high 1.7-12.0 [facility] Comment on above: Performed By: #### C BC #### [facility] [place] [facility] Laboratory [address] [place], [place] [id number] Billycarrillo Deanen NEUT # 1.6 103/ul Normal 1.4-6.5 [facility] [place] [facility] Comment on above: Performed By: #### C BC #### [facility] [place] [facility] Laboratory [address] [place], [place] [id number] Billy Quita Neutrophils/100 WBC (Bld) 42.4 % Critically low 43.0-75.0 [facility] [place] [facility] Comment on above: Performed By: #### C BC #### [facility] [place] [facility] Laboratory [address] [place], [place] [id number] Billy Quita Platelet mean volume (Bld) [Entitic vol] 11.5 fL Normal 9.5-13.5 [facility] [place] [facility] Comment on above: Performed By: #### C BC #### [facility] [place] [facility] Laboratory [address] [place] [address] Billy Devlin PLT 136 103/ul Critically low 150-450 [facility] Comment on above: Performed By: #### C BC #### [facility] [place] [facility] Laboratory [address] [place] [address] Billy Devlin RBC 4.50 106/ul Critically low 4.70-6.10 [facility] Comment on above: Performed By: #### C BC #### [facility] [place] [facility] Laboratory [address] [place] [address] Billy Deanen WBC 3.7 103/ul Critically low 4.0-11.0 [facility] Comment on above: Performed By: #### C BC #### [facility] [place] [facility] Laboratory [address] [place] [address] Billy Devlin FERRITINon 09-10-2021 Ferritin [Mass/Vol] 106.0 ng/mL Normal 17.9-464.0 [facility] Comment on above: Performed By: #### F ERR #### [facility] [place] [facility] Laboratory [address] [place] [address] Dr. Krystle Heaton CBC AUTO DIFFon 08-15-2021 BASO # 0.0 103/ul Normal 0.0-0.1 [facility] Comment on above: Performed By: #### C BC #### [facility] [place] [facility] Laboratory [address] [place] [address] Dr. Krystle Heaton Basophils/100 WBC (Bld) 0.8 % Normal 0.2-2.0 [facility] Comment on above: Performed By: #### C BC #### [facility] [place] [facility] Laboratory [address] [place] [address] Dr. Krystle Heaton EO # 0.2 103/ul Normal 0.0-0.7 [facility] [place] [facility] Comment on above: Performed By: #### C BC #### [facility] [place] [facility] Laboratory [address] [place] [address] Dr. Krystle Heaton Eosinophils/100 WBC (Bld) 4.4 % Normal 0.9-7.0 [facility] Comment on above: Performed By: #### C BC #### [facility] [place] [facility] Laboratory [address] [place] [address] Dr. Krystle Heaton Erythrocyte distribution width (RBC) [Ratio] 15.7 % Critically high 11.0-15.0 [facility] Comment on above: Performed By: #### C BC #### [facility] [place] [facility] Laboratory [address] [place] [address] Dr. Krystle Heaton Hematocrit (Bld) [Volume fraction] 39.4 % Critically low 42.0-54.0 [facility] Comment on above: Performed By: #### C BC #### [facility] [place] [facility] Laboratory [address] [place] [address] Dr. Krystle Heaton Hemoglobin (Bld) [Mass/Vol] 12.2 g/dL Critically low 14.0-18.0 [facility] Comment on above: Performed By: #### C BC #### [facility] [place] [facility] Laboratory [address] [place] [address] Dr. Krystle Heaton IG # 0.01 10e3/ul Normal 0.00-0.03 [facility] Comment on above: Performed By: #### C BC #### [facility] [place] [facility] Laboratory [address] [place] [address] Dr. Krystle Heaton IG % 0.2 % Normal 0.0-0.5 [facility] Comment on above: Performed By: #### C BC #### [facility] [place] [facility] Laboratory [address] [place] [address] Dr. Krystle Heaton LYMPH # 1.5 103/ul Normal 1.2-3.8 [facility] [place] [facility] Comment on above: Performed By: #### C BC #### [facility] [place] [facility] Laboratory [address] [place] [address] Dr. Krystle Heaton Lymphocytes/100 WBC (Bld) 32.2 % Normal 20.5-60.0 [facility] Comment on above: Performed By: #### C BC #### [facility] [place] [facility] Laboratory [address] [place] [address] Dr. Krystle Heaton MANUAL DIFF REQ NO Normal [facility] Comment on above: Performed By: #### C BC #### [facility] [place] [facility] Laboratory [address] [place] [address] [address] Krystle Heaton MCH (RBC) [Entitic mass] 27.4 pg Normal 25.9-34.0 [facility] [place] [facility] Comment on above: Performed By: #### C BC #### [facility] [place] [facility] Laboratory [address] [place] [address] Dr. Krystle Heaton MCHC (RBC) [Mass/Vol] 31.0 g/dL Normal 29.9-35.2 [facility] [place] [facility] Comment on above: Performed By: #### C BC #### [facility] [place] [facility] Laboratory [address] [place] [address] Dr. Krystle Heaton MCV (RBC) [Entitic vol] 88.5 fL Normal 80.0-94.0 [facility] [place] [facility] Comment on above: Performed By: #### C BC #### [facility] [place] [facility] Laboratory [address] [place] [address] Dr. Kryslte Heaton MONO # 0.6 103/ul Normal 0.3-0.8 [facility] [place] [facility] Comment on above: Performed By: #### C BC #### [facility] [place] [facility] Laboratory [address] [place] [address] Dr. Krystle Heaton Monocytes/100 WBC (Bld) 11.7 % Normal 1.7-12.0 [facility] [place] [facility] Comment on above: Performed By: #### C BC #### [facility] [place] [facility] Laboratory [address] [place] [address] Dr. Krystle Heaton NEUT # 2.4 103/ul Normal 1.4-6.5 [facility] [place] [facility] Comment on above: Performed By: #### C BC #### [facility] [place] [facility] Laboratory [address] [place] [address] Dr. Krystle Heaton Neutrophils/100 WBC (Bld) 50.7 % Normal 43.0-75.0 [facility] [place] [facility] Comment on above: Performed By: #### C BC #### [facility] [place] [facility] Laboratory [address] [place] [address] Dr. Krystle Heaton Platelet mean volume (Bld) [Entitic vol] 11.4 fL Normal 9.5-13.5 [facility] [place] [facility] Comment on above: Performed By: #### C BC #### [facility] [place] [facility] Laboratory [address] [place] [address] [address] Krystle Heaton PLT 169 103/ul Normal 150-450 [facility] [place] [facility] Comment on above: Performed By: #### C BC #### [facility] [place] [facility] Laboratory [address] [place] [address] [address] Krystle Heaton RBC 4.45 106/ul Critically low 4.70-6.10 [facility] Comment on above: Performed By: #### C BC #### [facility] [place] [facility] Laboratory [address] [place] [address] [address] Krystle Heaton WBC 4.8 103/ul Normal 4.0-11.0 [facility] Comment on above: Performed By: #### C BC #### [facility] [place] [facility] Laboratory [address] [place] [address] [address] Krystle Heaton FERRITINon 08-15-2021 Ferritin [Mass/Vol] 103.0 ng/mL Normal 17.9-464.0 [facility] Comment on above: Performed By: #### T 7, LIPA, TSH, AMADOU, CMP #### [facility] [place] [facility] Laboratory [address] [place] [address] [address] Krystle Heaton No Panel Informationon 07-31 Name ANGIE FRITZ Pathologist: COLLETTE DOTSON MD Date of Procedure: 07/31/2021 [facility] Work Phone: Radiologyon 07-31-2021 US Guidance for fine needle aspiration of Liver Normal -[facility] [address] [facility] Work Phone: [facility] Surgical Pathology Depar tmenton 07-31-2021 [facility] Surgical Pathology Department Name ANGIE FRITZ Pathologist: [...] toto in 2 cassettes A1 and A2. [facility]/07/31/2021 The assays/tests were performed with appropriate positive and negative controls which stained appropriately. [facility] Department of Pathology [address] [place] [address] Normal [facility] Comment on above: Performed By: #### U [facility] #### [facility] Surgical Pathology Department [address] [place] [address] US BIOPSY LIVER PERon 2020 US BIOPSY LIVER PER Patient Name: ANGIE FRITZ STUDY: US BIOPSY LIVER PER; 07/31/2021 1:03 pm PROCEDURE: ULTRASOUND GUIDED NON TARGETED RANDOM BIOPSY OF THE LIVER INDICATION: Hemochromatosis; here for tissue diagnosis COMPARISON: CT-guided liver biopsy 05/08/2021. ACCESSION NUMBER(S): [id number] ORDERING CLINICIAN: ENOCH HERRMANN HOT WIRE GLASS TUBE CUTTER: Dr. Roland (attending) Dee Lopes MD MEDICATIONS: [...] as stated. This study was interpreted at [place], [place]. Electronically signed by: SANDY ROLAND MD Normal [facility] CBC AUTO DIFFon 07-28-2021 BASO # 0.0 103/ul Normal 0.0-0.1 [facility] Comment on above: Performed By: #### T 7, LIPA, TSH, AMADOU, CMP #### [facility] [place] [facility] Laboratory [address] [place] [address] [address] Krystle Heaton Basophils/100 WBC (Bld) 0.6 % Normal 0.2-2.0 [facility] Comment on above: Performed By: #### T 7, LIPA, TSH, AMADOU, CMP #### [facility] [place] [facility] Laboratory [address] [address] [address] Krystle Heaton EO # 0.2 103/ul Normal 0.0-0.7 [facility] Comment on above: Performed By: #### T 7, LIPA, TSH, AMADOU, CMP #### [facility] [place] [facility] Laboratory [address] [place] [address] Dr. Krystle Heaton Eosinophils/100 WBC (Bld) 3.6 % Normal 0.9-7.0 [facility] Comment on above: Performed By: #### T 7, LIPA, TSH, AMADOU, CMP #### [facility] [place] [facility] Laboratory [address] [place] [address] Dr. Krystle Heaton Erythrocyte distribution width (RBC) [Ratio] 14.7 % Normal 11.0-15.0 [facility] Comment on above: Performed By: #### T 7, LIPA, TSH, AMADOU, CMP #### [facility] [place] [facility] Laboratory [address] [place] [address] Dr. Krystle Heaton Hematocrit (Bld) [Volume fraction] 37.4 % Critically low 42.0-54.0 [facility] Comment on above: Performed By: #### T 7, LIPA, TSH, AMADOU, CMP #### [facility] [place] [facility] Laboratory [address] [place] [address] Dr. Krystle Heaton Hemoglobin (Bld) [Mass/Vol] 11.5 g/dL Critically low 14.0-18.0 [facility] Comment on above: Performed By: #### T 7, LIPA, TSH, AMADOU, CMP #### [facility] [place] [facility] Laboratory [address] [place] [address] Dr. Krystle Heaton IG # 0.02 10e3/ul Normal 0.00-0.03 [facility] Comment on above: Performed By: #### T 7, LIPA, TSH, AMADOU, CMP #### [facility] [place] [facility] Laboratory [address] [place] [address] Dr. Krystle Heaton IG % 0.4 % Normal 0.0-0.5 [facility] Comment on above: Performed By: #### T 7, LIPA, TSH, AMADOU, CMP #### [facility] [place] [facility] Laboratory [address] [place] [address] Dr. Krystle Heaton LYMPH # 1.5 103/ul Normal 1.2-3.8 [facility] [place] [facility] Comment on above: Performed By: #### T 7, LIPA, TSH, AMADOU, CMP #### [facility] [place] [facility] Laboratory [address] [place] [address] Dr. Krystle Heaton Lymphocytes/100 WBC (Bld) 31.3 % Normal 20.5-60.0 [facility] Comment on above: Performed By: #### T 7, LIPA, TSH, AMADOU, CMP #### [facility] [place] [facility] Laboratory [address] [place] [address] Dr. Krystle Heaton MANUAL DIFF REQ NO Normal [facility] Comment on above: Performed By: #### T 7, LIPA, TSH, AMADOU, CMP #### [facility] [place] [facility] Laboratory [address] [place] [address] Dr. Krystle Heaton MCH (RBC) [Entitic mass] 27.8 pg Normal 25.9-34.0 [facility] [place] [facility] Comment on above: Performed By: #### T 7, LIPA, TSH, AMADOU, CMP #### [facility] [place] [facility] Laboratory [address] [place] [address] Dr. Krystle Heaton MCHC (RBC) [Mass/Vol] 30.7 g/dL Normal 29.9-35.2 [facility] [place] [facility] Comment on above: Performed By: #### T 7, LIPA, TSH, AMADOU, CMP #### [facility] [place] [facility] Laboratory [address] [place] [address] Dr. Krystle Heaton MCV (RBC) [Entitic vol] 90.6 fL Normal 80.0-94.0 [facility] [place] [facility] Comment on above: Performed By: #### T 7, LIPA, TSH, AMADOU, CMP #### [facility] [place] [facility] Laboratory [address] [place] [address] Dr. Krystle Heaton MONO # 0.6 103/ul Normal 0.3-0.8 [facility] Comment on above: Performed By: #### T 7, LIPA, TSH, AMADOU, CMP #### [facility] [place] [facility] Laboratory [address] [place] [address] Dr. Krystle Heaton Monocytes/100 WBC (Bld) 12.8 % Critically high 1.7-12.0 [facility] Comment on above: Performed By: #### T 7, LIPA, TSH, AMADOU, CMP #### [facility] [place] [facility] Laboratory [address] [place] [address] Dr. Krystle Heaton NEUT # 2.4 103/ul Normal 1.4-6.5 [facility] Comment on above: Performed By: #### T 7, LIPA, TSH, AMADOU, CMP #### [facility] [place] [facility] Laboratory [address] [place] [address] Dr. Krystle Heaton Neutrophils/100 WBC (Bld) 51.3 % Normal 43.0-75.0 [facility] Comment on above: Performed By: #### T 7, LIPA, TSH, AMADOU, CMP #### [facility] [place] [facility] Laboratory [address] [place] [address] Dr. Krystle Heaton Platelet mean volume (Bld) [Entitic vol] 11.4 fL Normal 9.5-13.5 [facility] Comment on above: Performed By: #### T 7, LIPA, TSH, AMADOU, CMP #### [facility] [place] [facility] Laboratory [address] [place] [address] Dr. Krystle Heaton PLT 190 103/ul Normal 150-450 [facility] Comment on above: Performed By: #### T 7, LIPA, TSH, AMADOU, CMP #### [facility] [place] [facility] Laboratory [address] [place] [address] Dr. Krystle Heaton RBC 4.13 106/ul Critically low 4.70-6.10 [facility] Comment on above: Performed By: #### T 7, LIPA, TSH, AMADOU, CMP #### [facility] [place] [facility] Laboratory [address] [place] [address] Dr. Krystle Heaton WBC 4.7 103/ul Normal 4.0-11.0 [facility] [place] [facility] Comment on above: Performed By: #### T 7, LIPA, TSH, AMADOU, CMP #### [facility] [place] [facility] Laboratory [address] [place] [address] Dr. Krystle Heaton PROTIMEon 07-28-2021 INR Coag (PPP) [Relative time] 1.00 {INR} Normal [facility] Comment on above: Performed By: #### H BSANS #### [facility] [place] [facility] Laboratory [address] [place] [address] Billy Devlin INR GUIDELINES SEE BELOW Normal [facility] Comment on above: Result Comment: MOUNA RED INR: 2.0 - 3.0 CONDITIONS NOT LISTED BELOW 2.5 - 3.5 FOR PROSTHETIC HEART VALVE REPLACEMENT 2.5 - 3.5 RECURRENT THROMBOSIS Performed By: #### H ANJUMNS #### [facility] [place] [facility] Laboratory [address] [place] [address] Billy Devlin PT Coag (PPP) [Time] 10.8 s Normal 9.0-11.6 [facility] [place] [facility] Comment on above: Performed By: #### H BSASUZANNE #### [facility] [place] [facility] Laboratory [address] [place] [address] Billy Devlin CBC AUTO DIFFon 07-09-2021 BASO # 0.0 103/ul Normal 0.0-0.1 [facility] [place] [facility] Comment on above: Performed By: #### T 7, LIPA, TSH, AMADOU, CMP #### [facility] [place] [facility] Laboratory [address] [place] [address] Dr. Krystle Heaton Basophils/100 WBC (Bld) 0.4 % Normal 0.2-2.0 [facility] [place] [facility] Comment on above: Performed By: #### T 7, LIPA, TSH, AMADOU, CMP #### [facility] [place] [facility] Laboratory [address] [place] [address] Dr. Krystle Heaton EO # 0.2 103/ul Normal 0.0-0.7 [facility] [place] [facility] Comment on above: Performed By: #### T 7, LIPA, TSH, AMADOU, CMP #### [facility] [place] [facility] Laboratory [address] [place] [address] Dr. Krystle Heaton Eosinophils/100 WBC (Bld) 2.9 % Normal 0.9-7.0 [facility] [place] [facility] Comment on above: Performed By: #### T 7, LIPA, TSH, AMADOU, CMP #### [facility] [place] [facility] Laboratory [address] [place] [address] Dr. Krystle Heaton Erythrocyte distribution width (RBC) [Ratio] 13.9 % Normal 11.0-15.0 [facility] Comment on above: Performed By: #### T 7, LIPA, TSH, AMADOU, CMP #### [facility] [place] [facility] Laboratory [address] [place] [address] Dr. Krystle Heaton Hematocrit (Bld) [Volume fraction] 40.4 % Critically low 42.0-54.0 [facility] Comment on above: Performed By: #### T 7, LIPA, TSH, AMADOU, CMP #### [facility] [place] [facility] Laboratory [address] [place] [address] Dr. Krystle Heaton Hemoglobin (Bld) [Mass/Vol] 12.3 g/dL Critically low 14.0-18.0 [facility] Comment on above: Performed By: #### T 7, LIPA, TSH, AMADOU, CMP #### [facility] [place] [facility] Laboratory [address] [place] [address] Dr. Krystle Heaton IG # 0.03 10e3/ul Normal 0.00-0.03 [facility] Comment on above: Performed By: #### T 7, LIPA, TSH, AMADOU, CMP #### [facility] [place] [facility] Laboratory [address] [place] [address] Dr. Krystle Heaton IG % 0.6 % Critically high 0.0-0.5 [facility] Comment on above: Performed By: #### T 7, LIPA, TSH, AMADOU, CMP #### [facility] [place] [facility] Laboratory [address] [place] [address] Dr. Krystle Heaton LYMPH # 1.5 103/ul Normal 1.2-3.8 [facility] [place] [facility] Comment on above: Performed By: #### T 7, LIPA, TSH, AMADOU, CMP #### [facility] [place] [facility] Laboratory [address] [place] [address] Dr. Krystle Heaton Lymphocytes/100 WBC (Bld) 28.3 % Normal 20.5-60.0 [facility] Comment on above: Performed By: #### T 7, LIPA, TSH, AMADOU, CMP #### [facility] [place] [facility] Laboratory [address] [place] [address] Dr. Krystle Heaton MANUAL DIFF REQ NO Normal [facility] Comment on above: Performed By: #### T 7, LIPA, TSH, AMADOU, CMP #### [facility] [place] [facility] Laboratory [address] [place] [address] Dr. Krystle Heaton MCH (RBC) [Entitic mass] 28.3 pg Normal 25.9-34.0 [facility] Comment on above: Performed By: #### T 7, LIPA, TSH, AMADOU, CMP #### [facility] [place] [facility] Laboratory [address] [place] [address] Dr. Krystle Heaton MCHC (RBC) [Mass/Vol] 30.4 g/dL Normal 29.9-35.2 [facility] [place] [facility] Comment on above: Performed By: #### T 7, LIPA, TSH, AMADOU, CMP #### [facility] [place] [facility] Laboratory [address] [place] [address] Dr. Krystle Heaton MCV (RBC) [Entitic vol] 93.1 fL Normal 80.0-94.0 [facility] [facility] Comment on above: Performed By: #### T 7, LIPA, TSH, AMADOU, CMP #### [facility] [address] [place] [address] Dr. Krystle Heaton MONO # 0.7 103/ul Normal 0.3-0.8 [facility] Comment on above: Performed By: #### T 7, LIPA, TSH, AMADOU, CMP #### [facility] [address] [place] [address] Dr. Krystle Heaton Monocytes/100 WBC (Bld) 13.4 % Critically high 1.7-12.0 [facility] Comment on above: Performed By: #### T 7, LIPA, TSH, AMADOU, CMP #### [facility] [address] [place] [address] Dr. Krystle Heaton NEUT # 2.8 103/ul Normal 1.4-6.5 [facility] Comment on above: Performed By: #### T 7, LIPA, TSH, AMADOU, CMP #### [facility] [address] [place] [address] Dr. Krystle Heaton Neutrophils/100 WBC (Bld) 54.4 % Normal 43.0-75.0 [facility] Comment on above: Performed By: #### T 7, LIPA, TSH, AMADOU, CMP #### [facility] [address] [address] [address] Krystle Heaton Platelet mean volume (Bld) [Entitic vol] 11.7 fL Normal 9.5-13.5 [facility] Comment on above: Performed By: #### T 7, LIPA, TSH, AMADOU, CMP #### [facility] [address] [place] [address] Dr. Krystle Heaton PLT 192 103/ul Normal 150-450 [facility] Comment on above: Performed By: #### T 7, LIPA, TSH, AMADOU, CMP #### [facility] [address] [place] [address] Dr. Krystle Heaton RBC 4.34 106/ul Critically low 4.70-6.10 [facility] Comment on above: Performed By: #### T 7, LIPA, TSH, AMADOU, CMP #### [facility] [address] [place] [address] Dr. Krystle Heaton WBC 5.2 103/ul Normal 4.0-11.0 [facility] Comment on above: Performed By: #### T 7, LIPA, TSH, AMADOU, CMP #### [facility] [address] [place] [address] Dr. Krystle Heaton FERRITINon 07-09-2021 Ferritin [Mass/Vol] 122.0 ng/mL Normal 17.9-464.0 [facility] Comment on above: Performed By: #### T 7, LIPA, TSH, AMADOU, CMP #### [facility] [address] [place] [address] Dr. Krystle Heaton CBC AUTO DIFFon 06-11-2021 BASO # 0.0 103/ul Normal 0.0-0.1 [facility] Comment on above: Performed By: #### T 7, LIPA, TSH, AMADOU, CMP #### [facility] [address] [place] [address] Dr. Krystle eHaton Basophils/100 WBC (Bld) 0.7 % Normal 0.2-2.0 [facility] Comment on above: Performed By: #### T 7, LIPA, TSH, AMADOU, CMP #### [facility] [address] [place] [address] Dr. Krystle Heaton EO # 0.2 103/ul Normal 0.0-0.7 [facility] Comment on above: Performed By: #### T 7, LIPA, TSH, AMADOU, CMP #### [facility] [address] [place] [address] Dr. Krystle Heaton Eosinophils/100 WBC (Bld) 3.9 % Normal 0.9-7.0 [facility] Comment on above: Performed By: #### T 7, LIPA, TSH, AMADOU, CMP #### [facility] [address] [place] [address] Dr. Krystle Heaton Erythrocyte distribution width (RBC) [Ratio] 13.0 % Normal 11.0-15.0 [facility] Comment on above: Performed By: #### T 7, LIPA, TSH, AMADOU, CMP #### [facility] [address] [place] [address] Dr. Krystle Heaton Hematocrit (Bld) [Volume fraction] 39.0 % Critically low 42.0-54.0 [facility] Comment on above: Performed By: #### T 7, LIPA, TSH, AMADOU, CMP #### [facility] [address] [place] [address] Dr. Krystle Heaton Hemoglobin (Bld) [Mass/Vol] 12.4 g/dL Critically low 14.0-18.0 [facility] Comment on above: Performed By: #### T 7, LIPA, TSH, AMADOU, CMP #### [facility] [address] [place] [address] Dr. Krystle Heaton IG # 0.01 10e3/ul Normal 0.00-0.03 [facility] Comment on above: Performed By: #### T 7, LIPA, TSH, AMADOU, CMP #### [facility] [address] [place] [address] Dr. Krystle Heaton IG % 0.2 % Normal 0.0-0.5 [facility] Comment on above: Performed By: #### T 7, LIPA, TSH, AMADOU, CMP #### [facility] [address] [place] [address] Dr. Krystle Heaton LYMPH # 1.0 103/ul Critically low 1.2-3.8 [facility] Comment on above: Performed By: #### T 7, LIPA, TSH, AMADOU, CMP #### [facility] [address] [place] [address] Dr. Krystle Heaton Lymphocytes/100 WBC (Bld) 23.1 % Normal 20.5-60.0 [facility] Comment on above: Performed By: #### T 7, LIPA, TSH, AMADOU, CMP #### [facility] [address] [place] [address] Dr. Krystle Heaton MANUAL DIFF REQ NO Normal [facility] Comment on above: Performed By: #### T 7, LIPA, TSH, AMADOU, CMP #### [facility] [address] [place] [address] Dr. Krystle Heaton MCH (RBC) [Entitic mass] 31.2 pg Normal 25.9-34.0 [facility] Comment on above: Performed By: #### T 7, LIPA, TSH, AMADOU, CMP #### [facility] [address] [place] [address] Dr. Krystle Heaton MCHC (RBC) [Mass/Vol] 31.8 g/dL Normal 29.9-35.2 [facility] Comment on above: Performed By: #### T 7, LIPA, TSH, AMADOU, CMP #### [facility] [address] [place] [address] Dr. Krystle Heaton MCV (RBC) [Entitic vol] 98.2 fL Critically high 80.0-94.0 [facility] Comment on above: Performed By: #### T 7, LIPA, TSH, AMADOU, CMP #### [facility] [address] [place] [address] Dr. Krystle Heaton MONO # 0.5 103/ul Normal 0.3-0.8 [facility] Comment on above: Performed By: #### T 7, LIPA, TSH, AMADOU, CMP #### [facility] [address] [place] [address] Dr. Krystle Heaton Monocytes/100 WBC (Bld) 10.4 % Normal 1.7-12.0 [facility] Comment on above: Performed By: #### T 7, LIPA, TSH, AMADOU, CMP #### [facility] [address] [place] [address] Dr. Krystle Heaton NEUT # 2.7 103/ul Normal 1.4-6.5 [facility] Comment on above: Performed By: #### T 7, LIPA, TSH, AMADOU, CMP #### [facility] [address] [place] [address] Dr. Krystle Heaton Neutrophils/100 WBC (Bld) 61.7 % Normal 43.0-75.0 [facility] Comment on above: Performed By: #### T 7, LIPA, TSH, AMADOU, CMP #### [facility] [address] [place] [address] Dr. Krystle Heaton Platelet mean volume (Bld) [Entitic vol] 10.8 fL Normal 9.5-13.5 [facility] Comment on above: Performed By: #### T 7, LIPA, TSH, AMADOU, CMP #### [facility] [address] [place] [address] Dr. Krystle Heaton PLT 197 103/ul Normal 150-450 [facility] Comment on above: Performed By: #### T 7, LIPA, TSH, AMADOU, CMP #### [facility] [address] [place] [address] Dr. Krystle Heaton RBC 3.97 106/ul Critically low 4.70-6.10 [facility] Comment on above: Performed By: #### T 7, LIPA, TSH, AMADOU, CMP #### [facility] [address] [place] [address] Dr. Krystle Heaton WBC 4.3 103/ul Normal 4.0-11.0 [facility] Comment on above: Performed By: #### T 7, LIPA, TSH, AMADOU, CMP #### [facility] [address] [place] [address] Dr. Krystle Heaton FERRITINon 06-11-2021 Ferritin [Mass/Vol] 107.0 ng/mL Normal 17.9-464.0 [facility] Comment on above: Performed By: #### T 7, LIPA, TSH, AMADOU, CMP #### [facility] [address] [place] [address] Dr. Krystle Heaton CBC AUTO DIFFon 05-28-2021 BASO # 0.0 103/ul Normal 0.0-0.1 [facility] Comment on above: Performed By: #### T 7, LIPA, TSH, AMADOU, CMP #### [facility] [address] [place] [address] Dr. Krystle Heaton Basophils/100 WBC (Bld) 0.5 % Normal 0.2-2.0 [facility] Comment on above: Performed By: #### T 7, LIPA, TSH, AMADOU, CMP #### [facility] [address] [place] [address] Dr. Krystle Heaton EO # 0.1 103/ul Normal 0.0-0.7 [facility] Comment on above: Performed By: #### T 7, LIPA, TSH, AMADOU, CMP #### [facility] [address] [place] [address] Dr. Krystle Heaton Eosinophils/100 WBC (Bld) 3.5 % Normal 0.9-7.0 [facility] Comment on above: Performed By: #### T 7, LIPA, TSH, AMADOU, CMP #### [facility] [address] [place] [address] Dr. Krystle Heaton Erythrocyte distribution width (RBC) [Ratio] 12.6 % Normal 11.0-15.0 [facility] Comment on above: Performed By: #### T 7, LIPA, TSH, AMDAOU, CMP #### [facility] [address] [place] [address] Dr. Krystle Heaton Hematocrit (Bld) [Volume fraction] 39.8 % Critically low 42.0-54.0 [facility] Comment on above: Performed By: #### T 7, LIPA, TSH, AMADOU, CMP #### [facility] [address] [place] [address] Dr. Krystle Heaton Hemoglobin (Bld) [Mass/Vol] 12.5 g/dL Critically low 14.0-18.0 [facility] Comment on above: Performed By: #### T 7, LIPA, TSH, AMADOU, CMP #### [facility] [address] [place] [address] Dr. Krystle Heaton IG # 0.00 10e3/ul Normal 0.00-0.03 [facility] Comment on above: Performed By: #### T 7, LIPA, TSH, AMADOU, CMP #### [facility] [address] [place] [address] Dr. Krystle Heaton IG % 0.0 % Normal 0.0-0.5 [facility] Comment on above: Performed By: #### T 7, LIPA, TSH, AMADOU, CMP #### [facility] [address] [place] [address] Dr. Krystle Heaton LYMPH # 1.2 103/ul Normal 1.2-3.8 [facility] Comment on above: Performed By: #### T 7, LIPA, TSH, AMADOU, CMP #### [facility] [address] [place] [address] Dr. Krystle Heaton Lymphocytes/100 WBC (Bld) 32.7 % Normal 20.5-60.0 [facility] Comment on above: Performed By: #### T 7, LIPA, TSH, AMADOU, CMP #### [facility] [address] [place] [address] Dr. Krystle Heaton MANUAL DIFF REQ NO Normal [facility] Comment on above: Performed By: #### T 7, LIPA, TSH, AMADOU, CMP #### [facility] [address] [place] [address] Dr. Krystle Heaton MCH (RBC) [Entitic mass] 32.1 pg Normal 25.9-34.0 [facility] Comment on above: Performed By: #### T 7, LIPA, TSH, AMADOU, CMP #### [facility] [address] [place] [address] Dr. Krystle Heaton MCHC (RBC) [Mass/Vol] 31.4 g/dL Normal 29.9-35.2 [facility] Comment on above: Performed By: #### T 7, LIPA, TSH, AMADOU, CMP #### [facility] [address] [place] [address] Dr. Krystle Heaton MCV (RBC) [Entitic vol] 102.3 fL Critically high 80.0-94.0 [facility] Comment on above: Performed By: #### T 7, LIPA, TSH, AMADOU, CMP #### [facility] [address] [place] [address] Dr. Krystle Heaton MONO # 0.4 103/ul Normal 0.3-0.8 [facility] Comment on above: Performed By: #### T 7, LIPA, TSH, AMADOU, CMP #### [facility] [address] [place] [address] Dr. Krystle Heaton Monocytes/100 WBC (Bld) 10.5 % Normal 1.7-12.0 [facility] Comment on above: Performed By: #### T 7, LIPA, TSH, AMADOU, CMP #### [facility] [address] [place] [address] Dr. Krystle Heaton NEUT # 2.0 103/ul Normal 1.4-6.5 [facility] Comment on above: Performed By: #### T 7, LIPA, TSH, AMADOU, CMP #### [facility] [address] [place] [address] Dr. Krystle Heaton Neutrophils/100 WBC (Bld) 52.8 % Normal 43.0-75.0 [facility] Comment on above: Performed By: #### T 7, LIPA, TSH, AMADOU, CMP #### [facility] [address] [place] [address] Dr. Krystle Heaton Platelet mean volume (Bld) [Entitic vol] 10.7 fL Normal 9.5-13.5 [facility] Comment on above: Performed By: #### T 7, LIPA, TSH, AMADOU, CMP #### [facility] [address] [address] [address] Krystle Heaton PLT 227 103/ul Normal 150-450 [facility] Comment on above: Performed By: #### T 7, LIPA, TSH, AMADOU, CMP #### [facility] [address] [address] [address] Krystle Heaton RBC 3.89 106/ul Critically low 4.70-6.10 [facility] Comment on above: Performed By: #### T 7, LIPA, TSH, AMADOU, CMP #### [facility] [address] [address] [address] Krystle Heaton WBC 3.7 103/ul Critically low 4.0-11.0 [facility] Comment on above: Performed By: #### T 7, LIPA, TSH, AMADOU, CMP #### [facility] [address] [place] [address] Dr. Krystle Heaton FERRITINon 05-28-2021 Ferritin [Mass/Vol] 169.0 ng/mL Normal 17.9-464.0 [facility] Comment on above: Performed By: #### F ERR #### [facility] [address] [place] [address] Dr. Krystle Heaton METHYLMALONIC ACID (MMA)on 0 05-18-2021 Disclaimer: Comment Normal [facility] Comment on above: Result Comment: This test was developed and its performance characteristics determined by [employer] It has not been cleared or approved by the Food and Drug Administration. Performed By: #### T 7, LIPA, TSH, AMADOU, CMP #### [facility] [address] [place] [address] Dr. Krystle Heaton Methylmalonic Acid, Serum 124 nmol/L Normal 0-378 [facility] Comment on above: Performed By: #### T 7, LIPA, TSH, AMADOU, CMP #### [facility] [address] [place] [address] Dr. Krystle Heaton HOMOCYSTEINEon 05-16-2021 Homocyst(e)ine, Plasma 19.5 umol/L Critically high 0.0-14.5 [facility] Comment on above: Performed By: #### T 7, LIPA, TSH, AMADOU, CMP #### [facility] [address] [place] [address] Dr. Krystle Heaton CBC AUTO DIFFon 05-15-2021 BASO # 0.0 103/ul Normal 0.0-0.1 [facility] Comment on above: Performed By: #### T 7, LIPA, TSH, AMADOU, CMP #### [facility] [address] [place] [address] Dr. Krystle Heaton Basophils/100 WBC (Bld) 0.5 % Normal 0.2-2.0 [facility] Comment on above: Performed By: #### T 7, LIPA, TSH, AMADOU, CMP #### [facility] [address] [place] [address] Dr. Krystle Heaton EO # 0.1 103/ul Normal 0.0-0.7 [facility] Comment on above: Performed By: #### T 7, LIPA, TSH, AMADOU, CMP #### [facility] [address] [place] [address] Dr. Krystle Heaton Eosinophils/100 WBC (Bld) 1.8 % Normal 0.9-7.0 [facility] Comment on above: Performed By: #### T 7, LIPA, TSH, AMADOU, CMP #### [facility] [address] [place] [address] Dr. Krystle Heaton Erythrocyte distribution width (RBC) [Ratio] 12.7 % Normal 11.0-15.0 [facility] Comment on above: Performed By: #### T 7, LIPA, TSH, AMADOU, CMP #### [facility] [address] [place] [address] Dr. Krystle Heaton Hematocrit (Bld) [Volume fraction] 39.4 % Critically low 42.0-54.0 [facility] Comment on above: Performed By: #### T 7, LIPA, TSH, AMADOU, CMP #### [facility] [address] [place] [address] Dr. Krystle Heaton Hemoglobin (Bld) [Mass/Vol] 12.9 g/dL Critically low 14.0-18.0 [facility] Comment on above: Performed By: #### T 7, LIPA, TSH, AMADOU, CMP #### [facility] [address] [place] [address] Dr. Krystle Heaton IG # 0.02 10e3/ul Normal 0.00-0.03 [facility] Comment on above: Performed By: #### T 7, LIPA, TSH, AMADOU, CMP #### [facility] [address] [place] [address] Dr. Krystle Heaton IG % 0.4 % Normal 0.0-0.5 [facility] Comment on above: Performed By: #### T 7, LIPA, TSH, AMADOU, CMP #### [facility] [address] [place] [address] Dr. Krystle Heaton LYMPH # 1.4 103/ul Normal 1.2-3.8 [facility] Comment on above: Performed By: #### T 7, LIPA, TSH, AMADOU, CMP #### [facility] [address] [place] [address] Dr. Krystle Heaton Lymphocytes/100 WBC (Bld) 24.9 % Normal 20.5-60.0 [facility] Comment on above: Performed By: #### T 7, LIPA, TSH, AMADOU, CMP #### [facility] [address] [place] [address] Dr. Krystle Heaton MANUAL DIFF REQ NO Normal [facility] Comment on above: Performed By: #### T 7, LIPA, TSH, AMADOU, CMP #### [facility] [address] [place] [address] Dr. Krystle Heaton MCH (RBC) [Entitic mass] 34.0 pg Normal 25.9-34.0 [facility] Comment on above: Performed By: #### T 7, LIPA, TSH, AMADOU, CMP #### [facility] [address] [place] [address] Dr. Krystle Heaton MCHC (RBC) [Mass/Vol] 32.7 g/dL Normal 29.9-35.2 [facility] Comment on above: Performed By: #### T 7, LIPA, TSH, AMADOU, CMP #### [facility] [address] [place] [address] Dr. Krystle Heaton MCV (RBC) [Entitic vol] 104.0 fL Critically high 80.0-94.0 [facility] Comment on above: Performed By: #### T 7, LIPA, TSH, AMADOU, CMP #### [facility] [address] [place] [address] Dr. Krystle Heaton MONO # 0.7 103/ul Normal 0.3-0.8 [facility] Comment on above: Performed By: #### T 7, LIPA, TSH, AMADOU, CMP #### [facility] [address] [place] [address] Dr. Krystle Heaton Monocytes/100 WBC (Bld) 11.8 % Normal 1.7-12.0 [facility] Comment on above: Performed By: #### T 7, LIPA, TSH, AMADOU, CMP #### [facility] [address] [place] [address] Dr. Krystle Heaton NEUT # 3.3 103/ul Normal 1.4-6.5 [facility] Comment on above: Performed By: #### T 7, LIPA, TSH, AMADOU, CMP #### [facility] [address] [place] [address] Dr. Krystle Heaton Neutrophils/100 WBC (Bld) 60.6 % Normal 43.0-75.0 [facility] Comment on above: Performed By: #### T 7, LIPA, TSH, AMADOU, CMP #### [facility] [address] [place] [address] Dr. Krystle Heaton Platelet mean volume (Bld) [Entitic vol] 10.2 fL Normal 9.5-13.5 [facility] Comment on above: Performed By: #### T 7, LIPA, TSH, AMADOU, CMP #### [facility] [address] [place] [address] Dr. Krystle Heaton PLT 196 103/ul Normal 150-450 [facility] Comment on above: Performed By: #### T 7, LIPA, TSH, AMADOU, CMP #### [facility] [address] [place] [address] Dr. Krystle Heaton RBC 3.79 106/ul Critically low 4.70-6.10 [facility] Comment on above: Performed By: #### T 7, LIPA, TSH, AMADOU, CMP #### [facility] [address] [place] [address] Dr. Krystle Heaton WBC 5.5 103/ul Normal 4.0-11.0 [facility] Comment on above: Performed By: #### T 7, LIPA, TSH, AMADOU, CMP #### [facility] [address] [place] [address] Dr. Krystle Heaton FERRITINon 05-15-2021 Ferritin [Mass/Vol] 302.0 ng/mL Normal 17.9-464.0 [facility] [place] Comment on above: Performed By: #### C BC #### [facility] [place] [facility] [address] [place] [address] Billy Devlin PROF 14(COMP METB)on 021 Albumin [Mass/Vol] 3.5 g/dL Normal 3.5-5.0 [facility] Comment on above: Performed By: #### C BC #### [facility] [place] [facility] [address] [place], [place] [id number] Billy Devlin Albumin/Globulin [Mass ratio] 1.0 {ratio} Normal The [facility] [place] [facility] Comment on above: Performed By: #### C BC #### [facility] [place] [facility] [address] [place], [place] [id number] Billy Devlin ALP [Catalytic activity/Vol] 71 U/L Normal 38-126 [facility] [place] [facility] Comment on above: Performed By: #### C BC #### [facility] [place] [facility] [address] [place], [place] [id number] Billy Quita ALT [Catalytic activity/Vol] 40 U/L Normal 21-72 The [facility] [place] [facility] Comment on above: Performed By: #### C BC #### [facility] [place] [facility] [address] [place], [place] [id number] Billy Quita Anion gap [Moles/Vol] 17.5 mmol/L Normal [facility] [place] Comment on above: Performed By: #### C BC #### [facility] [place] [facility] [address] [place], [place] [address] Billy Quita AST [Catalytic activity/Vol] 43 U/L Normal 17-59 [facility] [place] Comment on above: Performed By: #### C BC #### [facility] [place] [facility] [address] [place] [address] Billy Quita Bilirubin [Mass/Vol] 0.3 mg/dL Normal 0.2-1.3 The [facility] [place] [facility] Comment on above: Performed By: #### C BC #### [facility] [place] [facility] [address] [place] [address] Billy Quita Calcium [Mass/Vol] 8.8 mg/dL Normal 8.4-10.2 [facility] Comment on above: Performed By: #### C BC #### [facility] [place] [facility] [address] [place] [address] Billy Quita Chloride [Moles/Vol] 101 mmol/L Normal 98-107 [facility] [place] Comment on above: Performed By: #### C BC #### [facility] [place] [facility] [address] [place] [address] Billy Quita CO2 [Moles/Vol] 26.6 mmol/L Normal 22.0-30.0 [facility] Comment on above: Performed By: #### C BC #### [facility] [place] [facility] [address] [place] [address] Billy Quita Creatinine [Mass/Vol] 0.88 mg/dL Normal 0.66-1.25 [facility] Comment on above: Performed By: #### C BC #### [facility] [place] [facility] [address] [place], [place] [address] Billy Quita EGFR-AF CONGOLESE >60 Normal >=60 [facility] Comment on above: Performed By: #### C BC #### [facility] [place] [facility] [address] [place], [place] [address] Billy Qiuta EGFR-NON AF CONGOLESE >60 Normal >=60 The [facility] [place] [facility] Comment on above: Performed By: #### C BC #### [facility] [place] [facility] [address] [place], [place] [address] Billy Quita Globulin (S) [Mass/Vol] 3.6 g/dL Normal [facility] Comment on above: Performed By: #### C BC #### [facility] [place] [facility] [address] [place], [place] [address] Billy Quita Glucose [Mass/Vol] 101 mg/dL Normal 74-106 [facility] Comment on above: Performed By: #### C BC #### [facility] [place] [facility] [address] [place], [place] [address] Billy Quita Potassium [Moles/Vol] 4.1 mmol/L Normal 3.4-5.0 [facility] Comment on above: Performed By: #### C BC #### [facility] [place] [facility] [address] [place], [place] [address] Billy Quita Protein [Mass/Vol] 7.1 g/dL Normal 6.1-8.2 [facility] Comment on above: Performed By: #### C BC #### [facility] [place] [facility] [address] [place], [place] [address] Billy Quita Sodium [Moles/Vol] 141 mmol/L Normal 137-145 [facility] Comment on above: Performed By: #### C BC #### [facility] [place] [facility] [address] [place], [place] [address] Billy Quita Urea nitrogen [Mass/Vol] 11.0 mg/dL Normal 9.0-20.0 [facility] [place] [facility] Comment on above: Performed By: #### C BC #### [facility] [place] [facility] [address] [place], [place] [address] Billy Quita Urea nitrogen/Creatinine [Mass ratio] 12.5 mg/mg Normal [facility] Comment on above: Performed By: #### C BC #### [facility] [place] [facility] [address] [place], [place] [address] Billy Quita IN BIOPSY LIVER PERCUTANEOUS NEEDLEon 05-08-2021 IN BIOPSY LIVER PERCUTANEOUS NEEDLE Patient Name: ANGIE FRITZ STUDY: IN BIOPSY LIVER PERCUTANEOUS NEEDLE; ; 05/08/2021 11:46 am INDICATION: None. COMPARISON: None. ACCESSION NUMBER(S): [id number] ORDERING CLINICIAN: ENOCH HERRMANN TECHNIQUE: CONSENT: The [...] and cap. Additionally, the performing physician and [employer] assistant manager used maximum barrier technique to include a [...] were made using an 18 gauge spring-loaded Enjoi core biopsy needle. Good core samples were [...] above Electronically signed by: URI BACON MD [facility] Order Reconciliationon 05-08 Order Reconciliation Page 1 [...] tab(s) orally 2 times a day Normal [facility] Surgical Pathology Depar tmenton 05-08-2021 [facility] Surgical Pathology Department Name ANGIE FRITZ Pathologist: SUSAN BLACK M.D., PhD. Date of Procedure: 05/08/2021 Date Received: 05/08/2021 Date Reported 05/11/2021 Submitting Physician: ENOCH HERRMANN MD Location: [facility] Copy To/Referring/Attending: URI BACON MD Other External [...] positive and negative controls which stained appropriately. [facility] Department of Pathology [address] [place] [address] Normal [facility] Comment on above: Performed By: #### U HCS #### [facility] Surgical Pathology Department [address] [place] [address] CBC AUTO DIFFon 05-04-2021 BASO # 0.0 103/ul Normal 0.0-0.1 [facility] Comment on above: Performed By: #### F ERR #### [facility] [place] [facility] [address] [place] [address] Dr. Krystle Heaton Basophils/100 WBC (Bld) 0.5 % Normal 0.2-2.0 [facility] Comment on above: Performed By: #### F ERR #### [facility] [place] [facility] [address] [place] [address] Dr. Krystle Heaton EO # 0.1 103/ul Normal 0.0-0.7 [facility] Comment on above: Performed By: #### F ERR #### [facility] [place] [facility] [address] [place] [address] Dr. Krystle Heaton Eosinophils/100 WBC (Bld) 2.5 % Normal 0.9-7.0 [facility] Comment on above: Performed By: #### F ERR #### [facility] [place] [facility] [address] [place] [address] Dr. Krystle Heaton Erythrocyte distribution width (RBC) [Ratio] 12.5 % Normal 11.0-15.0 [facility] Comment on above: Performed By: #### F ERR #### [facility] [place] [facility] [address] [place] [address] Dr. Krystle Heaton Hematocrit (Bld) [Volume fraction] 34.3 % Critically low 42.0-54.0 [facility] Comment on above: Performed By: #### F ERR #### [facility] [place] [facility] [address] [place] [address] Dr. Krystle Heaton Hemoglobin (Bld) [Mass/Vol] 11.2 g/dL Critically low 14.0-18.0 [facility] Comment on above: Performed By: #### F ERR #### [facility] [place] [facility] [address] [place] [address] Dr. Krystle Heaton IG # 0.01 10e3/ul Normal 0.00-0.03 [facility] [place] [facility] Comment on above: Performed By: #### F ERR #### [facility] [place] [facility] [address] [place] [address] Dr. Krystle Heaton IG % 0.3 % Normal 0.0-0.5 The [facility] [place] [facility] Comment on above: Performed By: #### F ERR #### [facility] [place] [facility] [address] [place] [address] Dr. Krystle Heaton LYMPH # 1.3 103/ul Normal 1.2-3.8 The [facility] [place] [facility] Comment on above: Performed By: #### F ERR #### [facility] [place] [facility] [address] [place] [address] Dr. Krsytle Heaton Lymphocytes/100 WBC (Bld) 33.3 % Normal 20.5-60.0 [facility] Comment on above: Performed By: #### F ERR #### [facility] [place] [facility] [address] [place] [address] Dr. Krystle Heaton MANUAL DIFF REQ NO Normal [facility] Comment on above: Performed By: #### F ERR #### [facility] [place] [facility] [address] [place] [address] Dr. Krystle Heaton MCH (RBC) [Entitic mass] 35.6 pg Critically high 25.9-34.0 [facility] Comment on above: Performed By: #### F ERR #### [facility] [place] [facility] [address] [place] [address] Dr. Krystle Heaton MCHC (RBC) [Mass/Vol] 32.7 g/dL Normal 29.9-35.2 [facility] Comment on above: Performed By: #### F ERR #### [facility] [place] [facility] [address] [place] [address] Dr. Krystle Heaton MCV (RBC) [Entitic vol] 108.9 fL Critically high 80.0-94.0 [facility] Comment on above: Performed By: #### F ERR #### [facility] [place] [facility] [address] [place] [address] Dr. Krystle Heaton MONO # 0.4 103/ul Normal 0.3-0.8 [facility] Comment on above: Performed By: #### F ERR #### [facility] [place] [facility] [address] [place] [address] Dr. Krystle Heaton Monocytes/100 WBC (Bld) 10.0 % Normal 1.7-12.0 [facility] Comment on above: Performed By: #### F ERR #### [facility] [place] [facility] [address] [place] [address] Dr. Krystle Heaton NEUT # 2.1 103/ul Normal 1.4-6.5 [facility] [place] [facility] Comment on above: Performed By: #### F ERR #### [facility] [place] [facility] [address] [place] [address] Dr. Krystle Heaton Neutrophils/100 WBC (Bld) 53.4 % Normal 43.0-75.0 [facility] [place] [facility] Comment on above: Performed By: #### F ERR #### [facility] [place] [facility] [address] [place] [address] Dr. Krystle Heaton Platelet mean volume (Bld) [Entitic vol] 10.7 fL Normal 9.5-13.5 [facility] Comment on above: Performed By: #### F ERR #### [facility] [place] [facility] [address] [place] [address] Dr. Krystle Heaton PLT 174 103/ul Normal 150-450 The [facility] [place] [facility] Comment on above: Performed By: #### F ERR #### [facility] [place] [facility] [address] [place] [address] Dr. Krystle Heaton RBC 3.15 106/ul Critically low 4.70-6.10 [facility] Comment on above: Result Comment: SLID E REVIEWED. 2+ MACROCYTOSIS SEEN Performed By: #### F ERR #### [facility] [place] [facility] [address] [place] [address] Dr. Krystle Heaton WBC 4.0 103/ul Normal 4.0-11.0 [facility] Comment on above: Performed By: #### F ERR #### [facility] [place] [facility] [address] [place] [address] Dr. Krystle Heaton FERRITINon 05-04-2021 Ferritin [Mass/Vol] 417.0 ng/mL Normal 17.9-464.0 [facility] Comment on above: Performed By: #### T 7, LIPA, TSH, AMADOU, CMP #### [facility] [place] [facility] [address] [place] [address] Dr. Krystle Heaton AFP (TUMOR MARKER)on 021 AFP, Serum, Tumor Marker 5.2 ng/mL Normal 0.0-8.3 The [facility] [place] [facility] Comment on above: Result Comment: [employer] Electrochemiluminescence Immunoassay (ECLIA) . Values obtained with different assay methods or kits cannot be used interchangeably. Results cannot be interpreted as absolute evidence of the presence or absence of malignant disease. . This test is not interpretable in females. Performed By: #### T 7, LIPA, TSH, AMADOU, CMP #### [facility] [place] [facility] [address] [place] [address] Dr. Krystle Heaton [id number] 2020 [id number] , Serum 132 mg/dL Normal 101-187 [facility] Comment on above: Performed By: #### H BSANS #### [facility] [place] [facility] [address] [place] [address] Billy Devlin NE by IFAon 05-02-2021 Antinuclear Antibodies, IFA Negative Normal [facility] Comment on above: Result Comment: Nega tive <1:80 Borderline 1:80 Positive >1:80 Performed By: #### A NAIFA #### [facility] [place] [facility] [address] [place] [address] Billy Devlin CERULOPLASMINon 05-02-2021 Ceruloplasmin 27.8 mg/dL Normal 16.0-31.0 [facility] Comment on above: Performed By: #### C BC #### [facility] [place] [facility] [address] [place] [address] Billy Devlin HEP A AB TOTALon 05-02-2021 Hep A Ab, Total Negative Normal Negative [facility] Comment on above: Performed By: #### H BSANS #### [facility] [place] [facility] [address] [place] [address] Billy Devlin HEP B COREon 05-02-2021 Hep B Core Ab, Tot Negative Normal Negative [facility] Comment on above: Performed By: #### T 7, LIPA, TSH, AMADOU, CMP #### [facility] [place] [facility] [address] [place], [place] [address] Dr. Krystle Heaton HEP B SURFACE ANTIGEN SCREEN on 05-02-2021 HBsAg Screen Negative Normal Negative [facility] Comment on above: Performed By: #### H BSANS #### [facility] [place] [facility] [address] [place] [address] Billy Devlin HEPATITIS B SURFACE ANTIBODY , QUANTon 05-02-2021 Hepatitis B Surf AB Quant <3.1 Critically low Immunity>9. 9 [facility] Comment on above: Result Comment: Stat us of Immunity Anti-HBs Level Inconsistent with Immunity 0.0 - 9.9 Consistent with Immunity >9.9 Performed By: #### H BSANS #### [facility] [place] [facility] [address] [place] [address] Billy Devlin HEPATITIS C ANTIBODYon 05-02 Hep C Virus Ab <0.1 Normal 0.0-0.9 [facility] Comment on above: Result Comment: Nega tive: < 0.8 Indeterminate: 0.8 - 0.9 Positive: > 0.9 . The CDC recommends that a positive HCV antibody result be followed up with a HCV Nucleic Acid Amplification test (004529). Performed By: #### T 7, LA, SAVITA, AMADOU, CMP #### [facility] [place] [facility] [address] [place] [address] Dr. Krystle Heaton MITICHONDRIAL (M2) ANTIBODYo n 05-02-2021 Mitochondrial (M2) Antibody <20.0 Normal 0.0-20.0 [facility] Comment on above: Result Comment: Nega tive 0.0 - 20.0 Equivocal 20.1 - 24.9 Positive >24.9 . Mitochondrial (M2) Antibodies are found in 90-96% of patients with primary biliary cirrhosis. Performed By: #### F ERR #### [facility] [place] [facility] [address] [place] [address] Dr. Krystle Heaton CBC AUTO DIFFon 05-01-2021 BASO # 0.1 103/ul Normal 0.0-0.1 [facility] Comment on above: Performed By: #### C BC #### [facility] [place] [facility] [address] [place] [address] Billy Devlin Basophils/100 WBC (Bld) 1.5 % Normal 0.2-2.0 [facility] [place] [facility] Comment on above: Performed By: #### C BC #### [facility] [place] [facility] [address] [place] [address] Billy Quita EO # 0.1 103/ul Normal 0.0-0.7 [facility] Comment on above: Performed By: #### C BC #### [facility] [place] [facility] [address] [place] [address] Billy Quita Eosinophils/100 WBC (Bld) 2.1 % Normal 0.9-7.0 [facility] [place] [facility] Comment on above: Performed By: #### C BC #### [facility] [place] [facility] [address] [place] [address] Billy Quita Erythrocyte distribution width (RBC) [Ratio] 12.7 % Normal 11.0-15.0 [facility] [place] [facility] Comment on above: Performed By: #### C BC #### [facility] [place] [facility] [address] [place] [address] Billy Quita Hematocrit (Bld) [Volume fraction] 34.6 % Critically low 42.0-54.0 [facility] [place] [facility] Comment on above: Performed By: #### C BC #### [facility] [place] [facility] [address] [place] [address] Billy Quita Hemoglobin (Bld) [Mass/Vol] 11.2 g/dL Critically low 14.0-18.0 [facility] [place] [facility] Comment on above: Performed By: #### C BC #### [facility] [place] [facility] [address] [place] [address] Billy Quita IG # 0.01 10e3/ul Normal 0.00-0.03 [facility] [place] [facility] Comment on above: Performed By: #### C BC #### [facility] [place] [facility] [address] [place] [address] Billy Quita IG % 0.3 % Normal 0.0-0.5 [facility] [place] [facility] Comment on above: Performed By: #### C BC #### [facility] [place] [facility] [address] [place] [address] Billy Quita LYMPH # 1.0 103/ul Critically low 1.2-3.8 [facility] Comment on above: Performed By: #### C BC #### [facility] [place] [facility] [address] [place] [address] Billy Quita Lymphocytes/100 WBC (Bld) 30.4 % Normal 20.5-60.0 [facility] [place] [facility] Comment on above: Performed By: #### C BC #### [facility] [place] [facility] [address] [place] [address] Billy Devlin MANUAL DIFF REQ NO Normal [facility] Comment on above: Performed By: #### C BC #### [facility] [place] [facility] [address] [place] [address] Billy Devlin MCH (RBC) [Entitic mass] 35.8 pg Critically high 25.9-34.0 [facility] Comment on above: Performed By: #### C BC #### [facility] [place] [facility] [address] [place] [address] Billy Devlin MCHC (RBC) [Mass/Vol] 32.4 g/dL Normal 29.9-35.2 [facility] [place] [facility] Comment on above: Performed By: #### C BC #### [facility] [place] [facility] [address] [place] [address] Billy Devlin MCV (RBC) [Entitic vol] 110.5 fL Critically high 80.0-94.0 [facility] Comment on above: Performed By: #### C BC #### [facility] [place] [facility] [address] [place] [address] Billy Devlin MONO # 0.4 103/ul Normal 0.3-0.8 [facility] Comment on above: Performed By: #### C BC #### [facility] [place] [facility] [address] [place] [address] Billy Devlin Monocytes/100 WBC (Bld) 11.3 % Normal 1.7-12.0 [facility] Comment on above: Performed By: #### C BC #### [facility] [place] [facility] [address] [place] [address] Billy Devlin NEUT # 1.8 103/ul Normal 1.4-6.5 [facility] [place] [facility] Comment on above: Performed By: #### C BC #### [facility] [place] [facility] [address] [place] [address] Billy Devlin Neutrophils/100 WBC (Bld) 54.4 % Normal 43.0-75.0 [facility] Comment on above: Performed By: #### C BC #### [facility] [place] [facility] [address] [place] [address] Billycarrillo Devlin Platelet mean volume (Bld) [Entitic vol] 11.3 fL Normal 9.5-13.5 [facility] Comment on above: Performed By: #### C BC #### [facility] [place] [facility] [address] [place], [place] [address] Billycarrillo Deanen PLT 142 103/ul Critically low 150-450 [facility] Comment on above: Performed By: #### C BC #### [facility] [place] [facility] [address] [place] [id number] Billy Quita RBC 3.13 106/ul Critically low 4.70-6.10 [facility] Comment on above: Performed By: #### C BC #### [facility] [place] [facility] [address] [place] [id number] Billy Quita WBC 3.4 103/ul Critically low 4.0-11.0 [facility] Comment on above: Performed By: #### C BC #### [facility] [place] [facility] [address] [place], [place] [address] Billy Quita LIVER PROFILEon 05-01-2021 Albumin/Globulin [Mass ratio] 1.0 {ratio} Normal [facility] Comment on above: Performed By: #### H BSANS #### [facility] [place] [facility] [address] [place], [place] [address] Billy Quita ALP [Catalytic activity/Vol] 67 U/L Normal 38-126 [facility] Comment on above: Performed By: #### H BSANS #### [facility] [place] [facility] [address] [place], [place] [address] Billy Quita ALT [Catalytic activity/Vol] 52 U/L Normal 21-72 [facility] [place] [facility] Comment on above: Performed By: #### H BSANS #### [facility] [place] [facility] [address] [place], [place] [address] Billy Quita AST [Catalytic activity/Vol] 51 U/L Normal 17-59 [facility] [place] [facility] Comment on above: Performed By: #### H BSANS #### [facility] [place] [facility] [address] [place], [place] [id number] Billy Quita BILI, CONJUGATED 0.2 mg/dL Normal 0.0-0.3 [facility] Comment on above: Performed By: #### H BSANS #### [facility] [place] [facility] [address] [place] [address] Billy Quita Bilirubin [Mass/Vol] 0.5 mg/dL Normal 0.2-1.3 [facility] Comment on above: Performed By: #### H BSANS #### [facility] [address] [place] [address] Billy Quita Globulin (S) [Mass/Vol] 3.4 g/dL Normal The [facility] Comment on above: Performed By: #### H BSANS #### [facility] [address] [place] [address] Billy Quita Protein [Mass/Vol] 6.9 g/dL Normal 6.1-8.2 The [facility] Comment on above: Performed By: #### H BSANS #### [facility] [address] [place] [address] Billy Quita PROTIMEon 05-01-2021 INR Coag (PPP) [Relative time] 0.95 {INR} Normal [facility] Comment on above: Performed By: #### C BC #### [facility] [address] [place] [address] Billy Quita INR GUIDELINES SEE BELOW Normal [facility] Comment on above: Result Comment: MOUNA RED INR: 2.0 - 3.0 CONDITIONS NOT LISTED BELOW 2.5 - 3.5 FOR PROSTHETIC HEART VALVE REPLACEMENT 2.5 - 3.5 RECURRENT THROMBOSIS Performed By: #### C BC #### [facility] [address] [place] [address] Billy Quita PT Coag (PPP) [Time] 10.4 s Normal 9.0-11.6 The [facility] Comment on above: Performed By: #### C BC #### [facility] [address] [place] [address] Billycarrillo Devlin RENAL FUNCTION PANELon 05-01 Albumin [Mass/Vol] 3.5 g/dL Normal 3.5-5.0 [facility] Comment on above: Performed By: #### H BSANS #### [facility] [address] [place] [address] Billy Quita Calcium [Mass/Vol] 8.7 mg/dL Normal 8.4-10.2 The [facility] Comment on above: Performed By: #### H BSANS #### [facility] [address] [place] [address] Billy Quita Chloride [Moles/Vol] 104 mmol/L Normal 98-107 The [facility] Comment on above: Performed By: #### H BSANS #### [facility] [address] [place] [address] Billy Quita CO2 [Moles/Vol] 25.7 mmol/L Normal 22.0-30.0 The [facility] Comment on above: Performed By: #### H BSANS #### [facility] [address] [place] [address] Billy Quita Creatinine [Mass/Vol] 1.01 mg/dL Normal 0.66-1.25 The [facility] Comment on above: Performed By: #### H BSANS #### [facility] [address] [place] [address] Billy Quita EGFR-AF CONGOLESE >60 Normal >=60 The [facility] Comment on above: Performed By: #### H BSANS #### [facility] [address] [place] [address] Billy Quita EGFR-NON AF CONGOLESE >60 Normal >=60 The [facility] Comment on above: Performed By: #### H BSANS #### [facility] [address] [place] [address] Billy Quita Glucose [Mass/Vol] 103 mg/dL Normal 74-106 The [facility] Comment on above: Performed By: #### H BSANS #### [facility] [address] [place] [address] Billy Quita Phosphate [Mass/Vol] 3.6 mg/dL Normal 2.5-4.5 The [facility] Comment on above: Performed By: #### H BSANS #### [facility] [address] [place] [address] Billy Quita Potassium [Moles/Vol] 4.2 mmol/L Normal 3.4-5.0 [facility] Comment on above: Performed By: #### H BSANS #### [facility] [address] [place] [address] Billy Devlin Sodium [Moles/Vol] 138 mmol/L Normal 137-145 [facility] Comment on above: Performed By: #### H BSANS #### [facility] [address] [place] [address] Billy Devlin Urea nitrogen [Mass/Vol] 7.0 mg/dL Critically low 9.0-20.0 [facility] Comment on above: Performed By: #### H BSANS #### [facility] [address] [place] [address] Billy Devlin CBC AUTO DIFFon 04-27-2021 BASO # 0.0 103/ul Normal 0.0-0.1 [facility] Comment on above: Performed By: #### T 7, LIPA, TSH, AMADOU, CMP #### [facility] [address] [place] [address] Dr. Krystle Heaton Basophils/100 WBC (Bld) 0.9 % Normal 0.2-2.0 [facility] Comment on above: Performed By: #### T 7, LIPA, TSH, AMADOU, CMP #### [facility] [address] [place] [address] Dr. Krystle Heaton EO # 0.1 103/ul Normal 0.0-0.7 [facility] Comment on above: Performed By: #### T 7, LIPA, TSH, AMADOU, CMP #### [facility] [address] [place] [address] Dr. Krystle Heaton Eosinophils/100 WBC (Bld) 2.6 % Normal 0.9-7.0 [facility] Comment on above: Performed By: #### T 7, LIPA, TSH, AMADOU, CMP #### [facility] [address] [place] [address] Dr. Krystle Heaton Erythrocyte distribution width (RBC) [Ratio] 12.4 % Normal 11.0-15.0 [facility] Comment on above: Performed By: #### T 7, LIPA, TSH, AMADOU, CMP #### [facility] [address] [place] [address] Dr. Krystle Heaton Hematocrit (Bld) [Volume fraction] 36.8 % Critically low 42.0-54.0 [facility] Comment on above: Performed By: #### T 7, LIPA, TSH, AMADOU, CMP #### [facility] [address] [place] [address] Dr. Krystle Heaton Hemoglobin (Bld) [Mass/Vol] 12.0 g/dL Critically low 14.0-18.0 [facility] Comment on above: Performed By: #### T 7, LIPA, TSH, AMADOU, CMP #### [facility] [address] [place] [address] Dr. Krystle Heaton IG # 0.02 10e3/ul Normal 0.00-0.03 [facility] Comment on above: Performed By: #### T 7, LIPA, TSH, AMADOU, CMP #### [facility] [address] [place] [address] Dr. Krystle Heaton IG % 0.4 % Normal 0.0-0.5 [facility] Comment on above: Performed By: #### T 7, LIPA, TSH, AMADOU, CMP #### [facility] [address] [place] [address] Dr. Krystle Heaton LYMPH # 1.2 103/ul Normal 1.2-3.8 [facility] Comment on above: Performed By: #### T 7, LIPA, TSH, AMADOU, CMP #### [facility] [address] [place] [address] Dr. Krystle Heaton Lymphocytes/100 WBC (Bld) 26.0 % Normal 20.5-60.0 [facility] Comment on above: Performed By: #### T 7, LIPA, TSH, AMADOU, CMP #### [facility] [address] [place] [address] Dr. Krystle Heaton MANUAL DIFF REQ NO Normal [facility] Comment on above: Performed By: #### T 7, LIPA, TSH, AMADOU, CMP #### [facility] [address] [place] [address] Dr. Krystle Heaton MCH (RBC) [Entitic mass] 36.4 pg Critically high 25.9-34.0 The [facility] Comment on above: Performed By: #### T 7, LIPA, TSH, AMADOU, CMP #### [facility] [address] [place] [address] Dr. Krystle Heaton MCHC (RBC) [Mass/Vol] 32.6 g/dL Normal 29.9-35.2 The [facility] Comment on above: Performed By: #### T 7, LIPA, TSH, AMADOU, CMP #### [facility] [address] [place] [address] Dr. Krystle Heaton MCV (RBC) [Entitic vol] 111.5 fL Critically high 80.0-94.0 [facility] Comment on above: Performed By: #### T 7, LIPA, TSH, AMADOU, CMP #### [facility] [address] [place] [address] Dr. Krystle Heaton MONO # 0.5 103/ul Normal 0.3-0.8 The [facility] Comment on above: Performed By: #### T 7, LIPA, TSH, AMADOU, CMP #### [facility] [address] [place] [address] Dr. Krystle Heaton Monocytes/100 WBC (Bld) 10.1 % Normal 1.7-12.0 The [facility] Comment on above: Performed By: #### T 7, LIPA, TSH, AMADOU, CMP #### [facility] [address] [place] [address] Dr. Krystle Heaton NEUT # 2.8 103/ul Normal 1.4-6.5 The [facility] Comment on above: Performed By: #### T 7, LIPA, TSH, AMADOU, CMP #### [facility] [address] [place] [address] Dr. Krystle Heaton Neutrophils/100 WBC (Bld) 60.0 % Normal 43.0-75.0 The [facility] Comment on above: Performed By: #### T 7, LIPA, TSH, AMADOU, CMP #### [facility] [address] [place] [address] Dr. Krystle Heaton Platelet mean volume (Bld) [Entitic vol] 11.0 fL Normal 9.5-13.5 [facility] Comment on above: Performed By: #### T 7, LIPA, TSH, AMADOU, CMP #### [facility] [address] [place] [address] Dr. Krystle Heaton PLT 140 103/ul Critically low 150-450 [facility] Comment on above: Performed By: #### T 7, LIPA, TSH, AMADOU, CMP #### [facility] [address] [place] [address] Dr. Krystle Heaton RBC 3.30 106/ul Critically low 4.70-6.10 [facility] Comment on above: Performed By: #### T 7, LIPA, TSH, AMADOU, CMP #### [facility] [address] [place] [address] Dr. Krystle Heaton WBC 4.7 103/ul Normal 4.0-11.0 [facility] Comment on above: Performed By: #### T 7, LIPA, TSH, AMADOU, CMP #### [facility] [address] [place] [address] Dr. Krystle Heaton FERRITINon 04-27-2021 Ferritin [Mass/Vol] 845.0 ng/mL Critically high 17.9-464.0 [facility] Comment on above: Performed By: #### F ERR #### [facility] [address] [place] [address] Dr. Krystle Heaton CBC AUTO DIFFon 04-18-2021 BASO # 0.1 103/ul Normal 0.0-0.1 [facility] Comment on above: Performed By: #### T 7, LIPA, TSH, AMADOU, CMP #### [facility] [address] [place] [address] Dr. Krystle Heaton Basophils/100 WBC (Bld) 1.1 % Normal 0.2-2.0 [facility] Comment on above: Performed By: #### T 7, LIPA, TSH, AMADOU, CMP #### [facility] [address] [place] [address] Dr. Krystle Heaton EO # 0.1 103/ul Normal 0.0-0.7 The [facility] Comment on above: Performed By: #### T 7, LIPA, TSH, AMADOU, CMP #### [facility] [address] [place] [address] Dr. Krystle Heaton Eosinophils/100 WBC (Bld) 2.2 % Normal 0.9-7.0 The [facility] Comment on above: Performed By: #### T 7, LIPA, TSH, AMADOU, CMP #### [facility] [address] [place] [address] Dr. Krystle Heaton Erythrocyte distribution width (RBC) [Ratio] 13.1 % Normal 11.0-15.0 [facility] Comment on above: Performed By: #### T 7, LIPA, TSH, AMADOU, CMP #### [facility] [address] [place] [address] Dr. Krystle Heaton Hematocrit (Bld) [Volume fraction] 35.2 % Critically low 42.0-54.0 [facility] Comment on above: Performed By: #### T 7, LIPA, TSH, AMADOU, CMP #### [facility] [address] [place] [address] Dr. Krystle Heaton Hemoglobin (Bld) [Mass/Vol] 11.8 g/dL Critically low 14.0-18.0 The [facility] Comment on above: Performed By: #### T 7, LIPA, TSH, AMADOU, CMP #### [facility] [address] [place] [address] Dr. Krystle Heaton IG # 0.01 10e3/ul Normal 0.00-0.03 The [facility] Comment on above: Performed By: #### T 7, LIPA, TSH, AMADOU, CMP #### [facility] [address] [place] [address] Dr. Krystle Heaton IG % 0.2 % Normal 0.0-0.5 The [facility] Comment on above: Performed By: #### T 7, LIPA, TSH, AMADOU, CMP #### [facility] [address] [place] [address] Dr. Krystle Heaton LYMPH # 1.6 103/ul Normal 1.2-3.8 The [facility] Comment on above: Performed By: #### T 7, LIPA, TSH, AMADOU, CMP #### [facility] [address] [place] [address] Dr. Krystle Heaton Lymphocytes/100 WBC (Bld) 35.1 % Normal 20.5-60.0 The [facility] Comment on above: Performed By: #### T 7, LIPA, TSH, AMADOU, CMP #### [facility] [address] [place] [address] Dr. Krystle Heaton MANUAL DIFF REQ NO Normal [facility] Comment on above: Performed By: #### T 7, LIPA, TSH, AMADOU, CMP #### [facility] [address] [place] [address] Dr. Krystle Heaton MCH (RBC) [Entitic mass] 36.6 pg Critically high 25.9-34.0 [facility] Comment on above: Performed By: #### T 7, LIPA, TSH, AMADOU, CMP #### [facility] [address] [place] [address] Dr. Krystle Heaton MCHC (RBC) [Mass/Vol] 33.5 g/dL Normal 29.9-35.2 The [facility] Comment on above: Performed By: #### T 7, LIPA, TSH, AMADOU, CMP #### [facility] [address] [place] [address] Dr. Krystle Heaton MCV (RBC) [Entitic vol] 109.3 fL Critically high 80.0-94.0 [facility] Comment on above: Performed By: #### T 7, LIPA, TSH, AMADOU, CMP #### [facility] [address] [place] [address] Dr. Krystle Heaton MONO # 0.5 103/ul Normal 0.3-0.8 [facility] Comment on above: Performed By: #### T 7, LIPA, TSH, AMADOU, CMP #### [facility] [address] [place] [address] Dr. Krystle Heaton Monocytes/100 WBC (Bld) 11.0 % Normal 1.7-12.0 The [facility] Comment on above: Performed By: #### T 7, LIPA, TSH, AMADOU, CMP #### [facility] [address] [place] [address] Dr. Krystle Heaton NEUT # 2.2 103/ul Normal 1.4-6.5 The [facility] Comment on above: Performed By: #### T 7, LIPA, TSH, AMADOU, CMP #### [facility] [address] [place] [address] Dr. Krystle Heaton Neutrophils/100 WBC (Bld) 50.4 % Normal 43.0-75.0 [facility] Comment on above: Performed By: #### T 7, LIPA, TSH, AMADOU, CMP #### [facility] [address] [place] [address] Dr. Krystle Heaton Platelet mean volume (Bld) [Entitic vol] 10.9 fL Normal 9.5-13.5 [facility] Comment on above: Performed By: #### T 7, LIPA, TSH, AMADOU, CMP #### [facility] [address] [place] [address] Dr. Krystle Heaton PLT 158 103/ul Normal 150-450 The [facility] Comment on above: Performed By: #### T 7, LIPA, TSH, AMADOU, CMP #### [facility] [address] [place] [address] Dr. Krystle Heaton RBC 3.22 106/ul Critically low 4.70-6.10 [facility] Comment on above: Performed By: #### T 7, LIPA, TSH, AMADOU, CMP #### [facility] [address] [place] [address] Dr. Krystle Heaton WBC 4.5 103/ul Normal 4.0-11.0 [facility] Comment on above: Performed By: #### T 7, LIPA, TSH, AMADOU, CMP #### [facility] [address] [place] [address] Dr. Krystle Heaton FERRITINon 04-18-2021 Ferritin [Mass/Vol] ng/mL Critically high 17.9-464.0 [facility] Comment on above: Performed By: #### H BSANS #### [facility] [address] [place] [address] Billy Devlin CBC AUTO DIFFon 04-13-2021 BASO # 0.0 103/ul Normal 0.0-0.1 The [facility] Comment on above: Performed By: #### T 7, LIPA, TSH, AMADOU, CMP #### [facility] [address] [place] [address] Dr. Krystle Heaton Basophils/100 WBC (Bld) 0.6 % Normal 0.2-2.0 The [facility] Comment on above: Performed By: #### T 7, LIPA, TSH, AMADOU, CMP #### [facility] [address] [place] [address] Dr. Krystle Heaton EO # 0.1 103/ul Normal 0.0-0.7 The [facility] Comment on above: Performed By: #### T 7, LIPA, TSH, AMADOU, CMP #### [facility] [address] [place] [address] Dr. Krystle Heaton Eosinophils/100 WBC (Bld) 3.2 % Normal 0.9-7.0 [facility] Comment on above: Performed By: #### T 7, LIPA, TSH, AMADOU, CMP #### [facility] [address] [place] [address] Dr. Krystle Heaton Erythrocyte distribution width (RBC) [Ratio] 13.6 % Normal 11.0-15.0 The [facility] Comment on above: Performed By: #### T 7, LIPA, TSH, AMADOU, CMP #### [facility] [address] [place] [address] Dr. Krystle Heaton Hematocrit (Bld) [Volume fraction] 35.3 % Critically low 42.0-54.0 [facility] Comment on above: Performed By: #### T 7, LIPA, TSH, AMADOU, CMP #### [facility] [address] [place] [address] Dr. Krystle Heaton Hemoglobin (Bld) [Mass/Vol] 11.9 g/dL Critically low 14.0-18.0 [facility] Comment on above: Performed By: #### T 7, LIPA, TSH, AMADOU, CMP #### [facility] [address] [place] [address] Dr. Krystle Heaton IG # 0.01 10e3/ul Normal 0.00-0.03 [facility] Comment on above: Performed By: #### T 7, LIPA, TSH, AMADOU, CMP #### [facility] [address] [place] [address] Dr. Krystle Heaton IG % 0.3 % Normal 0.0-0.5 [facility] Comment on above: Performed By: #### T 7, LIPA, TSH, AMADOU, CMP #### [facility] [address] [place] [address] Dr. Krystle Heaton LYMPH # 1.1 103/ul Critically low 1.2-3.8 [facility] Comment on above: Performed By: #### T 7, LIPA, TSH, AMADOU, CMP #### [facility] [address] [place] [address] Dr. Krystle Heaton Lymphocytes/100 WBC (Bld) 35.1 % Normal 20.5-60.0 [facility] Comment on above: Performed By: #### T 7, LIPA, TSH, AMADOU, CMP #### [facility] [address] [place] [address] Dr. Krystle Heaton MANUAL DIFF REQ NO Normal [facility] Comment on above: Performed By: #### T 7, LIPA, TSH, AMADOU, CMP #### [facility] [address] [place] [address] Dr. Krystle Heaton MCH (RBC) [Entitic mass] 37.1 pg Critically high 25.9-34.0 [facility] Comment on above: Performed By: #### T 7, LIPA, TSH, AMADOU, CMP #### [facility] [address] [place] [address] Dr. Krystle Heaton MCHC (RBC) [Mass/Vol] 33.7 g/dL Normal 29.9-35.2 [facility] Comment on above: Performed By: #### T 7, LIPA, TSH, AMADOU, CMP #### [facility] [address] [place] [address] Dr. Krystle Heaton MCV (RBC) [Entitic vol] 110.0 fL Critically high 80.0-94.0 The [facility] Comment on above: Result Comment: macr ocytosis 3+ Performed By: #### T 7, LIPA, TSH, AMADOU, CMP #### [facility] [address] [place] [address] Dr. Krystle Heaton MONO # 0.3 103/ul Normal 0.3-0.8 The [facility] Comment on above: Performed By: #### T 7, LIPA, TSH, AMADOU, CMP #### [facility] [address] [place] [address] Dr. Krystle Heaton Monocytes/100 WBC (Bld) 10.7 % Normal 1.7-12.0 The [facility] Comment on above: Performed By: #### T 7, LIPA, TSH, AMADOU, CMP #### [facility] [address] [place] [address] Dr. Krystle Heaton NEUT # 1.5 103/ul Normal 1.4-6.5 The [facility] Comment on above: Performed By: #### T 7, LIPA, TSH, AMADOU, CMP #### [facility] [address] [place] [address] Dr. Krystle Heaton Neutrophils/100 WBC (Bld) 50.1 % Normal 43.0-75.0 The [facility] Comment on above: Performed By: #### T 7, LIPA, TSH, AMADOU, CMP #### [facility] [address] [place] [address] Dr. Krystle Heaton Platelet mean volume (Bld) [Entitic vol] 10.8 fL Normal 9.5-13.5 The [facility] Comment on above: Performed By: #### T 7, LIPA, TSH, AMADOU, CMP #### [facility] [address] [place], [place] [id number] Dr. Krystle Heaton PLT 131 103/ul Critically low 150-450 [facility] Comment on above: Performed By: #### T 7, LIPA, TSH, AMADOU, CMP #### [facility] [address] [place] [address] Dr. Krystle Heaton RBC 3.21 106/ul Critically low 4.70-6.10 [facility] Comment on above: Performed By: #### T 7, LIPA, TSH, AMADOU, CMP #### [facility] [address] [address] [address] Krystle Heaton WBC 3.1 103/ul Critically low 4.0-11.0 [facility] Comment on above: Performed By: #### T 7, LIPA, TSH, AMADOU, CMP #### [facility] [address] [place] [address] Dr. Krystle Heaton FERRITINon 04-13-2021 Ferritin [Mass/Vol] ng/mL Critically high 17.9-464.0 [facility] Comment on above: Performed By: #### F ERR #### [facility] [address] [place] [address] Dr. Krystle Heaton Initial Visit (Gastroenterol ogy)on [...] Anuj 4 2021 1:09PM EST (Author) Normal [facility] CBC AUTO DIFFon 04-06-2021 BASO # 0.0 103/ul Normal 0.0-0.1 [facility] Comment on above: Performed By: #### H ALEXANDER #### [facility] [address] [address] Billy Quita Basophils/100 WBC (Bld) 0.9 % Normal 0.2-2.0 [facility] Comment on above: Performed By: #### H ALEXANDER #### [facility] [address] [address] Billy Quita EO # 0.1 103/ul Normal 0.0-0.7 [facility] Comment on above: Performed By: #### H ALEXANDER #### [facility] [address] [place] [address] Billy Quita Eosinophils/100 WBC (Bld) 3.0 % Normal 0.9-7.0 [facility] Comment on above: Performed By: #### H ALEXANDER #### [facility] [address] [place] [address] Billy Quita Erythrocyte distribution width (RBC) [Ratio] 13.6 % Normal 11.0-15.0 [facility] Comment on above: Performed By: #### H ALEXANDER #### [facility] [address] [place] [address] Billy Quita Hematocrit (Bld) [Volume fraction] 39.1 % Critically low 42.0-54.0 [facility] Comment on above: Performed By: #### H ALEXANDER #### [facility] [address] [place] [address] Billy Quita Hemoglobin (Bld) [Mass/Vol] 13.1 g/dL Critically low 14.0-18.0 [facility] Comment on above: Performed By: #### H ALEXANDER #### [facility] [address] [place] [address] Billy Quita IG # 0.02 10e3/ul Normal 0.00-0.03 [facility] Comment on above: Performed By: #### H ALEXANDER #### [facility] [address] [id number] Billy Quita IG % 0.5 % Normal 0.0-0.5 [facility] Comment on above: Performed By: #### H ALEXANDER #### [facility] [address] [place] [address] Billy Quita LYMPH # 1.1 103/ul Critically low 1.2-3.8 [facility] Comment on above: Performed By: #### H ALEXANDER #### [facility] [address] [place] [address] Billy Devlin Lymphocytes/100 WBC (Bld) 26.7 % Normal 20.5-60.0 [facility] Comment on above: Performed By: #### H ALEXANDER #### [facility] [address] [place] [address] Billy Devlin MANUAL DIFF REQ NO Normal [facility] Comment on above: Performed By: #### H ALEXANDER #### [facility] [address] [place] [address] Billycarrillo Deanen MCH (RBC) [Entitic mass] 36.7 pg Critically high 25.9-34.0 [facility] Comment on above: Performed By: #### H ALEXANDER #### [facility] [address] [place] [address] Billycarrillo Devlin MCHC (RBC) [Mass/Vol] 33.5 g/dL Normal 29.9-35.2 [facility] Comment on above: Result Comment: macr ocytosis Performed By: #### H ALEXANDER #### [facility] [address] [place] [address] Billycarrillo Devlin MCV (RBC) [Entitic vol] 109.5 fL Critically high 80.0-94.0 [facility] Comment on above: Performed By: #### H ALEXANDER #### [facility] [address] [place] [address] Iblly Quita MONO # 0.4 103/ul Normal 0.3-0.8 [facility] Comment on above: Performed By: #### H ALEXANDER #### [facility] [address] [address] Billy Quita Monocytes/100 WBC (Bld) 8.7 % Normal 1.7-12.0 [facility] Comment on above: Performed By: #### H ALEXANDER #### [facility] [address] [place] [address] Billycarrillo Devlin NEUT # 2.6 103/ul Normal 1.4-6.5 [facility] Comment on above: Performed By: #### H ALEXANDER #### [facility] [address] [place], [place] [id number] Billy Devlin Neutrophils/100 WBC (Bld) 60.2 % Normal 43.0-75.0 [facility] Comment on above: Performed By: #### H ALEXANDER #### [facility] [address] [place] [address] Billy Devlin Platelet mean volume (Bld) [Entitic vol] 11.1 fL Normal 9.5-13.5 [facility] Comment on above: Performed By: #### H ALEXANDER #### [facility] [address] [place] [address] Billy Quita PLT 162 103/ul Normal 150-450 [facility] Comment on above: Performed By: #### H ALEXANDER #### [facility] [address] [place], [place] [id number] Billy Quita RBC 3.57 106/ul Critically low 4.70-6.10 [facility] Comment on above: Performed By: #### H ALEXANDER #### [facility] [address] [place], [place] [id number] Billy Quita WBC 4.3 103/ul Normal 4.0-11.0 [facility] Comment on above: Performed By: #### H BSASUZANNE #### [facility] [address] [place], [place] [id number] Billy Devlin FERRITINon 04-06-2021 Ferritin [Mass/Vol] ng/mL Critically high 17.9-464.0 [facility] Comment on above: Performed By: #### T 7, LIPA, TSH, AMDAOU, CMP #### [facility] [address] [address] [address] Krystle Heaton FREE T4on 04-06-2021 Free T4 [Mass/Vol] 0.73 ng/dL Critically low 0.78-2.19 [facility] Comment on above: Performed By: #### T 7, LIPA, TSH, AMADOU, CMP #### [facility] [address] [place] [address] Dr. Krystle Heaton IRON AND TIBCon 04-06-2021 % SATURATION 54.8 % Normal [facility] Comment on above: Performed By: #### T 7, LIPA, TSH, AMADOU, CMP #### [facility] [address] [place] [address] Dr. Krystle Heaton Iron [Mass/Vol] 161.0 ug/dL Normal 49.0-181.0 [facility] Comment on above: Performed By: #### T 7, LIPA, TSH, AMADOU, CMP #### [facility] [address] [place] [address] Dr. Krystle Heaton TIBC DIRECT 294.0 ug/dL Normal 261.0-497.0 [facility] Comment on above: Performed By: #### T 7, LIPA, TSH, AMADOU, CMP #### [facility] [address] [place] [address] Dr. Krystle Heaton PROF 14(COMP METB)on 021 Albumin [Mass/Vol] 3.7 g/dL Normal 3.5-5.0 [facility] Comment on above: Performed By: #### T 7, LIPA, TSH, AMADOU, CMP #### [facility] [address] [place] [address] Dr. Krystle Heaton Albumin/Globulin [Mass ratio] 1.0 {ratio} Normal [facility] Comment on above: Performed By: #### T 7, LIPA, TSH, AMADOU, CMP #### [facility] [address] [place] [address] Dr. Krystle Heaton ALP [Catalytic activity/Vol] 83 U/L Normal 38-126 [facility] Comment on above: Performed By: #### T 7, LIPA, TSH, AMADOU, CMP #### [facility] [address] [place] [address] Dr. Krystle Heaton ALT [Catalytic activity/Vol] 140 U/L Critically high 21-72 [facility] Comment on above: Performed By: #### T 7, LIPA, TSH, AMADOU, CMP #### [facility] [address] [place] [address] Dr. Krystle Heaton Anion gap [Moles/Vol] 15.8 mmol/L Normal [facility] Comment on above: Performed By: #### T 7, LIPA, TSH, AMADOU, CMP #### [facility] [address] [place] [address] Dr. Krystle Heaton AST [Catalytic activity/Vol] 186 U/L Critically high 17-59 [facility] Comment on above: Performed By: #### T 7, LIPA, TSH, AMADOU, CMP #### [facility] [address] [place] [address] Dr. Krystle Heaton Bilirubin [Mass/Vol] 0.5 mg/dL Normal 0.2-1.3 [facility] Comment on above: Performed By: #### T 7, LIPA, TSH, AMADOU, CMP #### [facility] [address] [place] [address] Dr. Krystle Heaton Calcium [Mass/Vol] 9.0 mg/dL Normal 8.4-10.2 [facility] Comment on above: Performed By: #### T 7, LIPA, TSH, AMADOU, CMP #### [facility] [address] [place] [address] Dr. Krystle Heaton Chloride [Moles/Vol] 101 mmol/L Normal 98-107 [facility] Comment on above: Performed By: #### T 7, LIPA, TSH, AMADOU, CMP #### [facility] [address] [place] [address] Dr. Krystle Heaton CO2 [Moles/Vol] 25.8 mmol/L Normal 22.0-30.0 [facility] Comment on above: Performed By: #### T 7, LIPA, TSH, AMADOU, CMP #### [facility] [address] [address] [address] Krystle Heaton Creatinine [Mass/Vol] 1.07 mg/dL Normal 0.66-1.25 [facility] Comment on above: Performed By: #### T 7, LIPA, TSH, AMADOU, CMP #### [facility] [address] [address] [address] Krystle Heaton EGFR-AF CONGOLESE >60 Normal >=60 [facility] Comment on above: Performed By: #### T 7, LIPA, TSH, AMADOU, CMP #### [facility] [address] [address] [address] Krystle Heaton EGFR-NON AF CONGOLESE >60 Normal >=60 [facility] Comment on above: Performed By: #### T 7, LIPA, TSH, AMADOU, CMP #### [facility] [address] [place] [address] Dr. Krystle Heaton Globulin (S) [Mass/Vol] 3.7 g/dL Normal [facility] Comment on above: Performed By: #### T 7, LIPA, TSH, AMADOU, CMP #### [facility] [address] [place] [address] Dr. Krystle Heaton Glucose [Mass/Vol] 104 mg/dL Normal 74-106 [facility] Comment on above: Performed By: #### T 7, LIPA, TSH, AMADOU, CMP #### [facility] [address] [address] [address] Krystle Heaton Potassium [Moles/Vol] 4.6 mmol/L Normal 3.4-5.0 [facility] Comment on above: Performed By: #### T 7, LIPA, TSH, AMADOU, CMP #### [facility] [address] [address] [address] Krystle Heaton Protein [Mass/Vol] 7.4 g/dL Normal 6.1-8.2 [facility] Comment on above: Performed By: #### T 7, LIPA, TSH, AMADOU, CMP #### [facility] [address] [place] [address] Dr. Krystle Heaton Sodium [Moles/Vol] 138 mmol/L Normal 137-145 [facility] Comment on above: Performed By: #### T 7, LIPA, TSH, AMADOU, CMP #### [facility] [address] [place] [address] Dr. Krystle Heaton Urea nitrogen [Mass/Vol] 10.0 mg/dL Normal 9.0-20.0 [facility] Comment on above: Performed By: #### T 7, LIPA, TSH, AMADOU, CMP #### [facility] [address] [place] [address] Dr. Krystle Heaton Urea nitrogen/Creatinine [Mass ratio] 9.3 mg/mg Normal [facility] Comment on above: Performed By: #### T 7, LIPA, TSH, AMADOU, CMP #### [facility] [address] [place] [address] Dr. Krystle Heaton TSHon 04-06-2021 TSH 1.945 uIU/mL Normal 0.470-4.680 [facility] Comment on above: Performed By: #### T 7, LIPA, TSH, AMADOU, CMP #### [facility] [address] [place] [address] Dr. Krystle Heaton TSH RANGE SEE BELOW Normal [facility] Comment on above: Result Comment: <0.3 4 UIU/ml HYPERTHYROID 0.34-5.60 UIU/ml EUTHYROID >5.60 UIU/ml HYPOTHYROID Performed By: #### T 7, LIPA, TSH, AMADOU, CMP #### [facility] [address] [place] [address] Dr. Krystle Heaton CBC AUTO DIFFon 03-30-2021 BASO # 0.0 103/ul Normal 0.0-0.1 [facility] Comment on above: Performed By: #### T 7, LIPA, TSH, AMADOU, CMP #### [facility] [address] [place] [address] Dr. Krystle Heaton Basophils/100 WBC (Bld) 0.8 % Normal 0.2-2.0 [facility] Comment on above: Performed By: #### T 7, LIPA, TSH, AMADOU, CMP #### [facility] [address] [place] [address] Dr. Krystle Heaton EO # 0.1 103/ul Normal 0.0-0.7 [facility] Comment on above: Performed By: #### T 7, LIPA, TSH, AMADOU, CMP #### [facility] [address] [place] [address] Dr. Krystle Heaton Eosinophils/100 WBC (Bld) 3.0 % Normal 0.9-7.0 [facility] Comment on above: Performed By: #### T 7, LIPA, TSH, AMADOU, CMP #### [facility] [address] [place] [address] Dr. Krystle Heaton Erythrocyte distribution width (RBC) [Ratio] 13.9 % Normal 11.0-15.0 [facility] Comment on above: Performed By: #### T 7, LIPA, TSH, AMADOU, CMP #### [facility] [address] [place] [address] Dr. Krystle Heaton Hematocrit (Bld) [Volume fraction] 40.4 % Critically low 42.0-54.0 [facility] Comment on above: Performed By: #### T 7, LIPA, TSH, AMADOU, CMP #### [facility] [address] [place] [address] Dr. Krystle Heaton Hemoglobin (Bld) [Mass/Vol] 13.5 g/dL Critically low 14.0-18.0 [facility] Comment on above: Performed By: #### T 7, LIPA, TSH, AMADOU, CMP #### [facility] [address] [place] [address] Dr. Krystle Heaton IG # 0.01 10e3/ul Normal 0.00-0.03 [facility] Comment on above: Performed By: #### T 7, LIPA, TSH, AMADOU, CMP #### [facility] [address] [place] [address] Dr. Krystle Heaton IG % 0.3 % Normal 0.0-0.5 [facility] Comment on above: Performed By: #### T 7, LIPA, TSH, AMADOU, CMP #### [facility] [address] [place] [address] Dr. Krystle Heaton LYMPH # 1.2 103/ul Normal 1.2-3.8 [facility] Comment on above: Performed By: #### T 7, LIPA, TSH, AMADOU, CMP #### [facility] [address] [place] [address] Dr. Krystle Heaton Lymphocytes/100 WBC (Bld) 32.7 % Normal 20.5-60.0 [facility] Comment on above: Performed By: #### T 7, LIPA, TSH, AMADOU, CMP #### [facility] [address] [place] [address] Dr. Krystle Heaton MANUAL DIFF REQ NO Normal [facility] Comment on above: Performed By: #### T 7, LIPA, TSH, AMADOU, CMP #### [facility] [address] [place] [address] Dr. Krystle Heaton MCH (RBC) [Entitic mass] 36.5 pg Critically high 25.9-34.0 [facility] Comment on above: Performed By: #### T 7, LIPA, TSH, AMADOU, CMP #### [facility] [address] [place] [address] Dr. Krystle Heaton MCHC (RBC) [Mass/Vol] 33.4 g/dL Normal 29.9-35.2 [facility] Comment on above: Result Comment: MACR OCYTOSIS PRESENT Performed By: #### T 7, LIPA, TSH, AMADOU, CMP #### [facility] [address] [place] [address] Dr. Krystle Heaton MCV (RBC) [Entitic vol] 109.2 fL Critically high 80.0-94.0 [facility] Comment on above: Performed By: #### T 7, LIPA, TSH, AMADOU, CMP #### [facility] [address] [place] [address] Dr. Krystle Heaton MONO # 0.4 103/ul Normal 0.3-0.8 [facility] Comment on above: Performed By: #### T 7, LIPA, TSH, AMADOU, CMP #### [facility] [address] [place] [address] Dr. Krystle Heaton Monocytes/100 WBC (Bld) 11.4 % Normal 1.7-12.0 [facility] Comment on above: Performed By: #### T 7, LIPA, TSH, AMADOU, CMP #### [facility] [address] [place] [address] Dr. Krystle Heaton NEUT # 1.9 103/ul Normal 1.4-6.5 [facility] Comment on above: Performed By: #### T 7, LIPA, TSH, AMADOU, CMP #### [facility] [address] [place] [address] Dr. Krystle Heaton Neutrophils/100 WBC (Bld) 51.8 % Normal 43.0-75.0 [facility] Comment on above: Performed By: #### T 7, LIPA, TSH, AMADOU, CMP #### [facility] [address] [place] [address] Dr. Krystle Heaton Platelet mean volume (Bld) [Entitic vol] 10.8 fL Normal 9.5-13.5 [facility] Comment on above: Performed By: #### T 7, LIPA, TSH, AMADOU, CMP #### [facility] [address] [place] [address] Dr. Krystle Heaton PLT 184 103/ul Normal 150-450 [facility] Comment on above: Performed By: #### T 7, LIPA, TSH, AMADOU, CMP #### [facility] [address] [place] [address] Dr. Krystle Heaton RBC 3.70 106/ul Critically low 4.70-6.10 [facility] Comment on above: Performed By: #### T 7, LIPA, TSH, AMADOU, CMP #### [facility] [address] [place] [address] Dr. Krystle Heaton WBC 3.6 103/ul Critically low 4.0-11.0 [facility] Comment on above: Performed By: #### T 7, LIPA, TSH, AMADOU, CMP #### [facility] [address] [place] [address] Dr. Krystle Heaton FERRITINon 03-30-2021 Ferritin [Mass/Vol] ng/mL Critically high 17.9-464.0 [facility] Comment on above: Performed By: #### F ERR #### [facility] [address] [place] [address] Dr. Krystle Heaton FREE T4on 03-30-2021 Free T4 [Mass/Vol] 0.83 ng/dL Normal 0.78-2.19 [facility] Comment on above: Performed By: #### F ERR #### [facility] [address] [place] [address] Dr. Krystle Heaton IRON AND TIBCon 03-30-2021 % SATURATION 78.5 % Normal [facility] Comment on above: Performed By: #### F ERR #### [facility] [address] [place] [address] Dr. Krystle Heaton Iron [Mass/Vol] 230.0 ug/dL Critically high 49.0-181.0 [facility] Comment on above: Performed By: #### F ERR #### [facility] [address] [place] [address] Dr. Krystle Heaton TIBC DIRECT 293.0 ug/dL Normal 261.0-497.0 [facility] Comment on above: Performed By: #### F ERR #### [facility] [address] [place] [address] Dr. Krystle Heaton PROF 14(COMP METB)on 021 Albumin [Mass/Vol] 3.8 g/dL Normal 3.5-5.0 [facility] Comment on above: Performed By: #### T 7, LIPA, TSH, AMADOU, CMP #### [facility] [address] [place] [address] Dr. Krystle Heaton Albumin/Globulin [Mass ratio] 1.0 {ratio} Normal [facility] Comment on above: Performed By: #### T 7, LIPA, TSH, AMADOU, CMP #### [facility] [address] [place] [address] Dr. Krystle Heaton ALP [Catalytic activity/Vol] 90 U/L Normal 38-126 [facility] Comment on above: Performed By: #### T 7, LIPA, TSH, AMADOU, CMP #### [facility] [address] [place] [address] Dr. Krystle Heaton ALT [Catalytic activity/Vol] 149 U/L Critically high 21-72 [facility] Comment on above: Performed By: #### T 7, LIPA, TSH, AMADOU, CMP #### [facility] [address] [place] [address] Dr. Krystle Heaton Anion gap [Moles/Vol] 16.0 mmol/L Normal [facility] Comment on above: Performed By: #### T 7, LIPA, TSH, AMADOU, CMP #### [facility] [address] [place] [address] Dr. Krystle Heaton AST [Catalytic activity/Vol] 187 U/L Critically high 17-59 [facility] Comment on above: Performed By: #### T 7, LIPA, TSH, AMADOU, CMP #### [facility] [address] [place] [address] Dr. Krystle Heaton Bilirubin [Mass/Vol] 0.6 mg/dL Normal 0.2-1.3 [facility] Comment on above: Performed By: #### T 7, LIPA, TSH, AMADOU, CMP #### [facility] [address] [place] [address] Dr. Krystle Heaton Calcium [Mass/Vol] 9.2 mg/dL Normal 8.4-10.2 [facility] Comment on above: Performed By: #### T 7, LIPA, TSH, AMADOU, CMP #### [facility] [address] [place] [address] Dr. Krystle Heaton Chloride [Moles/Vol] 100 mmol/L Normal 98-107 [facility] Comment on above: Performed By: #### T 7, LIPA, TSH, AMADOU, CMP #### [facility] [address] [place] [address] Dr. Krystle Heaton CO2 [Moles/Vol] 26.2 mmol/L Normal 22.0-30.0 [facility] Comment on above: Performed By: #### T 7, LIPA, TSH, AMADOU, CMP #### [facility] [address] [place] [address] Dr. Kyrstle Heaton Creatinine [Mass/Vol] 1.07 mg/dL Normal 0.66-1.25 [facility] Comment on above: Performed By: #### T 7, LIPA, TSH, AMADOU, CMP #### [facility] [address] [place] [address] Dr. Krystle Heaton EGFR-AF CONGOLESE >60 Normal >=60 [facility] Comment on above: Performed By: #### T 7, LIPA, TSH, AMADOU, CMP #### [facility] [address] [place] [address] Dr. Krystle Heaton EGFR-NON AF CONGOLESE >60 Normal >=60 [facility] Comment on above: Performed By: #### T 7, LIPA, TSH, AMADOU, CMP #### [facility] [address] [place] [address] Dr. Krystle Heaton Globulin (S) [Mass/Vol] 3.8 g/dL Normal [facility] Comment on above: Performed By: #### T 7, LIPA, TSH, AMADOU, CMP #### [facility] [address] [place] [address] Dr. Krystle Heaton Glucose [Mass/Vol] 110 mg/dL Critically high 74-106 [facility] Comment on above: Performed By: #### T 7, LIPA, TSH, AMADOU, CMP #### [facility] [address] [place] [address] Dr. Krystle Heaton Potassium [Moles/Vol] 4.2 mmol/L Normal 3.4-5.0 [facility] Comment on above: Performed By: #### T 7, LIPA, TSH, AMADOU, CMP #### [facility] [address] [place] [address] Dr. Krystle Heaton Protein [Mass/Vol] 7.6 g/dL Normal 6.1-8.2 [facility] Comment on above: Performed By: #### T 7, LIPA, TSH, AMADOU, CMP #### [facility] [address] [place] [address] Dr. Krystle Heaton Sodium [Moles/Vol] 138 mmol/L Normal 137-145 [facility] Comment on above: Performed By: #### T 7, LIPA, TSH, AMADOU, CMP #### [facility] [address] [place] [address] Dr. Krystle Heaton Urea nitrogen [Mass/Vol] 9.0 mg/dL Normal 9.0-20.0 [facility] Comment on above: Performed By: #### T 7, LIPA, TSH, AMADOU, CMP #### [facility] [address] [place] [address] Dr. Krystle Heaton Urea nitrogen/Creatinine [Mass ratio] 8.4 mg/mg Normal [facility] Comment on above: Performed By: #### T 7, LIPA, TSH, AMADOU, CMP #### [facility] [address] [place] [address] Dr. Krystle Heaton TSHon 03-30-2021 TSH 1.030 uIU/mL Normal 0.470-4.680 [facility] Comment on above: Performed By: #### T 7, LIPA, TSH, AMADOU, CMP #### [facility] [address] [place] [address] Dr. Krystle Heaton TSH RANGE SEE BELOW Normal [facility] Comment on above: Result Comment: <0.3 4 UIU/ml HYPERTHYROID 0.34-5.60 UIU/ml EUTHYROID >5.60 UIU/ml HYPOTHYROID Performed By: #### T 7, LIPA, TSH, AMADOU, CMP #### [facility] [address] [place] [address] Dr. Krystle Heaton CBC AUTO DIFFon 03-22-2021 BASO # 0.0 103/ul Normal 0.0-0.1 [facility] Comment on above: Performed By: #### T 7, LIPA, TSH, AMADOU, CMP #### [facility] [address] [place] [address] Dr. Krystle Heaton Basophils/100 WBC (Bld) 0.6 % Normal 0.2-2.0 [facility] Comment on above: Performed By: #### T 7, LIPA, TSH, AMADOU, CMP #### [facility] [address] [place] [address] Dr. Krystle Heaton EO # 0.1 103/ul Normal 0.0-0.7 [facility] Comment on above: Performed By: #### T 7, LIPA, TSH, AMADOU, CMP #### [facility] [address] [place] [address] Dr. Krystle Heaton Eosinophils/100 WBC (Bld) 2.1 % Normal 0.9-7.0 The [facility] Comment on above: Performed By: #### T 7, LIPA, TSH, AMADOU, CMP #### [facility] [address] [place] [address] Dr. Krystle Heaton Erythrocyte distribution width (RBC) [Ratio] 12.7 % Normal 11.0-15.0 [facility] Comment on above: Performed By: #### T 7, LIPA, TSH, AMADOU, CMP #### [facility] [address] [place] [address] Dr. Krystle Heaton Hematocrit (Bld) [Volume fraction] 37.5 % Critically low 42.0-54.0 [facility] Comment on above: Performed By: #### T 7, LIPA, TSH, AMADOU, CMP #### [facility] [address] [place] [address] Dr. Krystle Heaton Hemoglobin (Bld) [Mass/Vol] 13.1 g/dL Critically low 14.0-18.0 [facility] Comment on above: Performed By: #### T 7, LIPA, TSH, AMADOU, CMP #### [facility] [address] [place] [address] Dr. Krystle Heaton IG # 0.01 10e3/ul Normal 0.00-0.03 [facility] Comment on above: Performed By: #### T 7, LIPA, TSH, AMADOU, CMP #### [facility] [address] [place] [address] Dr. Krystle Heaton IG % 0.3 % Normal 0.0-0.5 The [facility] Comment on above: Performed By: #### T 7, LIPA, TSH, AMADOU, CMP #### [facility] [address] [place] [address] Dr. Krystle Heaton LYMPH # 1.2 103/ul Normal 1.2-3.8 The [facility] Comment on above: Performed By: #### T 7, LIPA, TSH, AMADOU, CMP #### [facility] [address] [place] [address] Dr. Krystle Heaton Lymphocytes/100 WBC (Bld) 35.7 % Normal 20.5-60.0 [facility] Comment on above: Performed By: #### T 7, LIPA, TSH, AMADOU, CMP #### [facility] [address] [place] [address] Dr. Krystle Heaton MANUAL DIFF REQ NO Normal [facility] Comment on above: Performed By: #### T 7, LIPA, TSH, AMADOU, CMP #### [facility] [address] [place] [address] Dr. Krystle Heaton MCH (RBC) [Entitic mass] 37.0 pg Critically high 25.9-34.0 The [facility] Comment on above: Performed By: #### T 7, LIPA, TSH, AMADOU, CMP #### [facility] [address] [place] [address] Dr. Krystle Heaton MCHC (RBC) [Mass/Vol] 34.9 g/dL Normal 29.9-35.2 [facility] Comment on above: Performed By: #### T 7, LIPA, TSH, AMADOU, CMP #### [facility] [address] [place] [address] Dr. Krystle Heaton MCV (RBC) [Entitic vol] 105.9 fL Critically high 80.0-94.0 [facility] Comment on above: Performed By: #### T 7, LIPA, TSH, AMADOU, CMP #### [facility] [address] [place] [address] Dr. Krystle Heaton MONO # 0.2 103/ul Critically low 0.3-0.8 [facility] Comment on above: Performed By: #### T 7, LIPA, TSH, AMADOU, CMP #### [facility] [address] [place] [address] Dr. Krystle Heaton Monocytes/100 WBC (Bld) 6.8 % Normal 1.7-12.0 [facility] Comment on above: Performed By: #### T 7, LIPA, TSH, AMADOU, CMP #### [facility] [address] [place] [address] Dr. Krystle Heaton NEUT # 1.8 103/ul Normal 1.4-6.5 The [facility] Comment on above: Performed By: #### T 7, LIPA, TSH, AMADOU, CMP #### [facility] [address] [place] [address] Dr. Krystle Heaton Neutrophils/100 WBC (Bld) 54.5 % Normal 43.0-75.0 [facility] Comment on above: Performed By: #### T 7, LIPA, TSH, AMADOU, CMP #### [facility] [address] [place] [address] Dr. Krystle Heaton Platelet mean volume (Bld) [Entitic vol] 10.4 fL Normal 9.5-13.5 [facility] Comment on above: Performed By: #### T 7, LIPA, TSH, AMADOU, CMP #### [facility] [address] [place] [address] Dr. Krystle Heaton PLT 126 103/ul Critically low 150-450 [facility] Comment on above: Performed By: #### T 7, LIPA, TSH, AMADOU, CMP #### [facility] [address] [place] [address] Dr. Krystle Heaton RBC 3.54 106/ul Critically low 4.70-6.10 [facility] Comment on above: Performed By: #### T 7, LIPA, TSH, AMADOU, CMP #### [facility] [address] [place] [address] Dr. Krystle Heaton WBC 3.4 103/ul Critically low 4.0-11.0 [facility] Comment on above: Performed By: #### T 7, LIPA, TSH, AMADOU, CMP #### [facility] [address] [place] [address] Dr. Krystle Heaton FERRITINon 03-22-2021 Ferritin [Mass/Vol] ng/mL Critically high 17.9-464.0 [facility] Comment on above: Performed By: #### T 7, LIPA, TSH, AMADOU, CMP #### [facility] [address] [place] [address] Dr. Krystle Heaton FREE T4on 03-22-2021 Free T4 [Mass/Vol] 0.78 ng/dL Normal 0.78-2.19 [facility] Comment on above: Performed By: #### T 7, LIPA, TSH, AMADOU, CMP #### [facility] [address] [place] [address] Dr. Krystle Heaton IRON AND TIBCon 03-22-2021 % SATURATION 106.0 % Normal [facility] Comment on above: Performed By: #### T 7, LIPA, TSH, AMADOU, CMP #### [facility] [address] [place] [address] Dr. Krystle Heaton Iron [Mass/Vol] 233.0 ug/dL Critically high 49.0-181.0 [facility] Comment on above: Performed By: #### T 7, LIPA, TSH, AMADOU, CMP #### [facility] [address] [place] [address] Dr. Krystle Heaton TIBC DIRECT 220.0 ug/dL Critically low 261.0-497.0 [facility] Comment on above: Performed By: #### T 7, LIPA, TSH, AMADOU, CMP #### [facility] [address] [place] [address] Dr. Krystle Heaton PROF 14(COMP METB)on 021 Albumin [Mass/Vol] 3.5 g/dL Normal 3.5-5.0 [facility] Comment on above: Performed By: #### T 7, LIPA, TSH, AMADOU, CMP #### [facility] [address] [place] [address] Dr. Krystle Heaton Albumin/Globulin [Mass ratio] 1.0 {ratio} Normal [facility] Comment on above: Performed By: #### T 7, LIPA, TSH, AMADOU, CMP #### [facility] [address] [place] [address] Dr. Krystle Heaton ALP [Catalytic activity/Vol] 77 U/L Normal 38-126 [facility] Comment on above: Performed By: #### T 7, LIPA, TSH, AMADOU, CMP #### [facility] [address] [place] [address] Dr. Krystle Heaton ALT [Catalytic activity/Vol] 95 U/L Critically high 21-72 [facility] Comment on above: Performed By: #### T 7, LIPA, TSH, AMADOU, CMP #### [facility] [address] [place] [address] Dr. Krystle Heaton Anion gap [Moles/Vol] 17.3 mmol/L Normal [facility] Comment on above: Performed By: #### T 7, LIPA, TSH, AMADOU, CMP #### [facility] [address] [place] [address] Dr. Krystle Heaton AST [Catalytic activity/Vol] 161 U/L Critically high 17-59 [facility] Comment on above: Performed By: #### T 7, LIPA, TSH, AMADOU, CMP #### [facility] [address] [place] [address] Dr. Krystle Heaton Bilirubin [Mass/Vol] 0.8 mg/dL Normal 0.2-1.3 [facility] Comment on above: Performed By: #### T 7, LIPA, TSH, AMADOU, CMP #### [facility] [address] [place] [address] Dr. Krystle Heaton Calcium [Mass/Vol] 8.5 mg/dL Normal 8.4-10.2 [facility] Comment on above: Performed By: #### T 7, LIPA, TSH, AMADOU, CMP #### [facility] [address] [place] [address] Dr. Krystle Heaton Chloride [Moles/Vol] 101 mmol/L Normal 98-107 [facility] Comment on above: Performed By: #### T 7, LIPA, TSH, AMADOU, CMP #### [facility] [address] [place] [address] Dr. Krystle Heaton CO2 [Moles/Vol] 22.6 mmol/L Normal 22.0-30.0 [facility] Comment on above: Performed By: #### T 7, LIPA, TSH, AMADOU, CMP #### [facility] [address] [place] [address] Dr. Krystle Heaton Creatinine [Mass/Vol] 0.98 mg/dL Normal 0.66-1.25 [facility] Comment on above: Performed By: #### T 7, LIPA, TSH, AMADOU, CMP #### [facility] [address] [place] [address] Dr. Krystle Heaton EGFR-AF CONGOLESE >60 Normal >=60 [facility] Comment on above: Performed By: #### T 7, LIPA, TSH, AMADOU, CMP #### [facility] [address] [place] [address] Dr. Krystle Heaton EGFR-NON AF CONGOLESE >60 Normal >=60 [facility] Comment on above: Performed By: #### T 7, LIPA, TSH, AMADOU, CMP #### [facility] [address] [place] [address] Dr. Krystle Heaton Globulin (S) [Mass/Vol] 3.4 g/dL Normal [facility] Comment on above: Performed By: #### T 7, LIPA, TSH, AMADOU, CMP #### [facility] [address] [place] [address] Dr. Krystle Heaton Glucose [Mass/Vol] 103 mg/dL Normal 74-106 [facility] Comment on above: Performed By: #### T 7, LIPA, TSH, AMADOU, CMP #### [facility] [address] [place] [address] Dr. Krystle Heaton Potassium [Moles/Vol] 3.9 mmol/L Normal 3.4-5.0 [facility] Comment on above: Performed By: #### T 7, LIPA, TSH, AMADOU, CMP #### [facility] [address] [place] [address] Dr. Krystle Heaton Protein [Mass/Vol] 6.9 g/dL Normal 6.1-8.2 [facility] Comment on above: Performed By: #### T 7, LIPA, TSH, AMADOU, CMP #### [facility] [address] [place] [address] Dr. Krystle Heaton Sodium [Moles/Vol] 137 mmol/L Normal 137-145 [facility] Comment on above: Performed By: #### T 7, LIPA, TSH, AMADOU, CMP #### [facility] [address] [place] [address] Dr. Krystle Heaton Urea nitrogen [Mass/Vol] 8.0 mg/dL Critically low 9.0-20.0 [facility] Comment on above: Performed By: #### T 7, LIPA, TSH, AMADOU, CMP #### [facility] [address] [place] [address] Dr. Krystle Heaton Urea nitrogen/Creatinine [Mass ratio] 8.2 mg/mg Normal [facility] Comment on above: Performed By: #### T 7, LIPA, TSH, AMADOU, CMP #### [facility] [address] [place] [address] Dr. Krystle Heaton TSHon 03-22-2021 TSH 2.059 uIU/mL Normal 0.470-4.680 [facility] Comment on above: Performed By: #### T 7, LIPA, TSH, AMADOU, CMP #### [facility] [address] [place] [address] Dr. Krystle Heaton TSH RANGE SEE BELOW Normal [facility] Comment on above: Result Comment: <0.3 4 UIU/ml HYPERTHYROID 0.34-5.60 UIU/ml EUTHYROID >5.60 UIU/ml HYPOTHYROID Performed By: #### T 7, LIPA, TSH, AMADOU, CMP #### [facility] [address] [place] [address] Dr. Krystle Heaton CBC AUTO DIFFon 03-17-2021 BASO # 0.0 103/ul Normal 0.0-0.1 [facility] Comment on above: Performed By: #### T 7, LIPA, TSH, AMADOU, CMP #### [facility] [address] [place] [address] Dr. Krystle Heaton Basophils/100 WBC (Bld) 0.3 % Normal 0.2-2.0 [facility] Comment on above: Performed By: #### T 7, LIPA, TSH, AMADOU, CMP #### [facility] [address] [place] [address] Dr. Krystle Heaton EO # 0.1 103/ul Normal 0.0-0.7 [facility] Comment on above: Performed By: #### T 7, LIPA, TSH, AMADOU, CMP #### [facility] [address] [place] [address] Dr. Krystle Heaton Eosinophils/100 WBC (Bld) 1.8 % Normal 0.9-7.0 [facility] Comment on above: Performed By: #### T 7, LIPA, TSH, AMADOU, CMP #### [facility] [address] [place] [address] Dr. Krystle Heaton Erythrocyte distribution width (RBC) [Ratio] 12.5 % Normal 11.0-15.0 [facility] Comment on above: Performed By: #### T 7, LIPA, TSH, AMADOU, CMP #### [facility] [address] [place] [address] Dr. Krystle Heaton Hematocrit (Bld) [Volume fraction] 40.9 % Critically low 42.0-54.0 [facility] Comment on above: Performed By: #### T 7, LIPA, TSH, AMADOU, CMP #### [facility] [address] [place] [address] Dr. Krystle Heaton Hemoglobin (Bld) [Mass/Vol] 14.1 g/dL Normal 14.0-18.0 [facility] Comment on above: Performed By: #### T 7, LIPA, TSH, AMADOU, CMP #### [facility] [address] [place] [address] Dr. Krystle Heaton IG # 0.01 10e3/ul Normal 0.00-0.03 [facility] Comment on above: Performed By: #### T 7, LIPA, TSH, AMADOU, CMP #### [facility] [address] [place] [address] Dr. Krystle Heaton IG % 0.3 % Normal 0.0-0.5 [facility] Comment on above: Performed By: #### T 7, LIPA, TSH, AMADOU, CMP #### [facility] [address] [place] [address] Dr. Krystle Heaton LYMPH # 1.3 103/ul Normal 1.2-3.8 [facility] Comment on above: Performed By: #### T 7, LIPA, TSH, AMADOU, CMP #### [facility] [address] [place] [address] Dr. Krystle Heaton Lymphocytes/100 WBC (Bld) 41.1 % Normal 20.5-60.0 [facility] Comment on above: Performed By: #### T 7, LIPA, TSH, AMADOU, CMP #### [facility] [address] [place] [address] Dr. Krystle Heaton MANUAL DIFF REQ NO Normal [facility] Comment on above: Performed By: #### T 7, LIPA, TSH, AMADOU, CMP #### [facility] [address] [place] [address] Dr. Krystle Heaton MCH (RBC) [Entitic mass] 36.3 pg Critically high 25.9-34.0 [facility] Comment on above: Performed By: #### T 7, LIPA, TSH, AMADOU, CMP #### [facility] [address] [place] [address] Dr. Krystle Heaton MCHC (RBC) [Mass/Vol] 34.5 g/dL Normal 29.9-35.2 [facility] Comment on above: Performed By: #### T 7, LIPA, TSH, AMADOU, CMP #### [facility] [address] [place] [address] Dr. Krystle Heaton MCV (RBC) [Entitic vol] 105.4 fL Critically high 80.0-94.0 [facility] Comment on above: Performed By: #### T 7, LIPA, TSH, AMADOU, CMP #### [facility] [address] [place] [address] Dr. Krystle Heaton MONO # 0.3 103/ul Normal 0.3-0.8 [facility] Comment on above: Performed By: #### T 7, LIPA, TSH, AMADOU, CMP #### [facility] [address] [place] [address] Dr. Krystle Heaton Monocytes/100 WBC (Bld) 8.0 % Normal 1.7-12.0 [facility] Comment on above: Performed By: #### T 7, LIPA, TSH, AMADOU, CMP #### [facility] [address] [place] [address] Dr. Krystle Heaton NEUT # 1.6 103/ul Normal 1.4-6.5 [facility] Comment on above: Performed By: #### T 7, LIPA, TSH, AMADOU, CMP #### [facility] [address] [place] [address] Dr. Krystle Heaton Neutrophils/100 WBC (Bld) 48.5 % Normal 43.0-75.0 [facility] Comment on above: Performed By: #### T 7, LIPA, TSH, AMADOU, CMP #### [facility] [address] [place] [address] Dr. Krystle Heaton Platelet mean volume (Bld) [Entitic vol] 10.6 fL Normal 9.5-13.5 [facility] Comment on above: Performed By: #### T 7, LIPA, TSH, AMADOU, CMP #### [facility] [address] [place] [address] Dr. Krystle Heaton PLT 134 103/ul Critically low 150-450 [facility] Comment on above: Performed By: #### T 7, LIPA, TSH, AMADOU, CMP #### [facility] [address] [place] [address] Dr. Krystle Heaton RBC 3.88 106/ul Critically low 4.70-6.10 [facility] Comment on above: Result Comment: Macr ocytosis 1+ Stomatocytes 1+ Performed By: #### T 7, LIPA, TSH, AMADOU, CMP #### [facility] [address] [place] [address] Dr. Krystle Heaton WBC 3.3 103/ul Critically low 4.0-11.0 [facility] Comment on above: Performed By: #### T 7, LIPA, TSH, AMADOU, CMP #### [facility] [address] [place] [address] Dr. Krystle Heaton FERRITINon 03-17-2021 Ferritin [Mass/Vol] ng/mL Critically high 17.9-464.0 [facility] Comment on above: Performed By: #### T 7, LIPA, TSH, AMADOU, CMP #### [facility] [address] [place] [address] Dr. Krystle Heaton FREE T4on 03-17-2021 Free T4 [Mass/Vol] 0.82 ng/dL Normal 0.78-2.19 [facility] Comment on above: Performed By: #### T 7, LIPA, TSH, AMADOU, CMP #### [facility] [address] [place] [address] Dr. Krystle Heaton IRON AND TIBCon 03-17-2021 % SATURATION 100.8 % Normal [facility] Comment on above: Performed By: #### T 7, LIPA, TSH, AMADOU, CMP #### [facility] [address] [place] [address] Dr. Krystle Heaton Iron [Mass/Vol] 249.0 ug/dL Critically high 49.0-181.0 [facility] Comment on above: Performed By: #### T 7, LIPA, TSH, AMADOU, CMP #### [facility] [address] [place] [address] Dr. Krystle Heaton TIBC DIRECT 247.0 ug/dL Critically low 261.0-497.0 [facility] Comment on above: Performed By: #### T 7, LIPA, TSH, AMADOU, CMP #### [facility] [address] [place] [address] Dr. Krystle Heaton PROF 14(COMP METB)on 021 Albumin [Mass/Vol] 3.7 g/dL Normal 3.5-5.0 [facility] Comment on above: Performed By: #### T 7, LIPA, TSH, AMADOU, CMP #### [facility] [address] [address] [address] Krystle Heaton Albumin/Globulin [Mass ratio] 1.1 {ratio} Normal [facility] Comment on above: Performed By: #### T 7, LIPA, TSH, AMADOU, CMP #### [facility] [address] [address] [address] Krystle Heaton ALP [Catalytic activity/Vol] 78 U/L Normal 38-126 [facility] Comment on above: Performed By: #### T 7, LIPA, TSH, AMADOU, CMP #### [facility] [address] [place] [address] Dr. Krystle Heaton ALT [Catalytic activity/Vol] 100 U/L Critically high 21-72 [facility] Comment on above: Performed By: #### T 7, LIPA, TSH, AMADOU, CMP #### [facility] [address] [address] [address] Krystle Heaton Anion gap [Moles/Vol] 14.4 mmol/L Normal [facility] Comment on above: Performed By: #### T 7, LIPA, TSH, AMADOU, CMP #### [facility] [address] [place] [address] Dr. Krystle Heaton AST [Catalytic activity/Vol] 158 U/L Critically high 17-59 [facility] Comment on above: Performed By: #### T 7, LIPA, TSH, AMADOU, CMP #### [facility] [address] [address] [address] Krystle Heaton Bilirubin [Mass/Vol] 0.6 mg/dL Normal 0.2-1.3 [facility] Comment on above: Performed By: #### T 7, LIPA, TSH, AMADOU, CMP #### [facility] [address] [place] [address] Dr. Krystle Heaton Calcium [Mass/Vol] 8.9 mg/dL Normal 8.4-10.2 [facility] Comment on above: Performed By: #### T 7, LIPA, TSH, AMADOU, CMP #### [facility] [address] [address] [address] Krystle Heaton Chloride [Moles/Vol] 100 mmol/L Normal 98-107 [facility] Comment on above: Performed By: #### T 7, LIPA, TSH, AMADOU, CMP #### [facility] [address] [address] [address] Krystle Heaton CO2 [Moles/Vol] 27.3 mmol/L Normal 22.0-30.0 [facility] Comment on above: Performed By: #### T 7, LIPA, TSH, AMADOU, CMP #### [facility] [address] [place] [address] Dr. Krystle Heaton Creatinine [Mass/Vol] 1.08 mg/dL Normal 0.66-1.25 [facility] Comment on above: Performed By: #### T 7, LIPA, TSH, AMADOU, CMP #### [facility] [address] [place] [address] Dr. Krystle Heaton EGFR-AF CONGOLESE >60 Normal >=60 [facility] Comment on above: Performed By: #### T 7, LIPA, TSH, AMADOU, CMP #### [facility] [address] [place] [address] Dr. Krystle Heaton EGFR-NON AF CONGOLESE >60 Normal >=60 [facility] Comment on above: Performed By: #### T 7, LIPA, TSH, AMADOU, CMP #### [facility] [address] [place] [address] Dr. Krystle Heaton Globulin (S) [Mass/Vol] 3.5 g/dL Normal [facility] Comment on above: Performed By: #### T 7, LIPA, TSH, AMADOU, CMP #### [facility] [address] [place] [address] Dr. Krystle Heaton Glucose [Mass/Vol] 115 mg/dL Critically high 74-106 [facility] Comment on above: Performed By: #### T 7, LIPA, TSH, AMADOU, CMP #### [facility] [address] [address] [address] Krystle Heaton Potassium [Moles/Vol] 3.7 mmol/L Normal 3.4-5.0 [facility] Comment on above: Performed By: #### T 7, LIPA, TSH, AMADOU, CMP #### [facility] [address] [place] [address] Dr. Krystle Heaton Protein [Mass/Vol] 7.2 g/dL Normal 6.1-8.2 [facility] Comment on above: Performed By: #### T 7, LIPA, TSH, AMADOU, CMP #### [facility] [address] [place] [address] Dr. Krystle Heaton Sodium [Moles/Vol] 138 mmol/L Normal 137-145 [facility] Comment on above: Performed By: #### T 7, LIPA, TSH, AMADOU, CMP #### [facility] [address] [place] [address] Dr. Krystle Heaton Urea nitrogen [Mass/Vol] 10.0 mg/dL Normal 9.0-20.0 [facility] Comment on above: Performed By: #### T 7, LIPA, TSH, AMADOU, CMP #### [facility] [address] [place] [address] Dr. Krystle Heaton Urea nitrogen/Creatinine [Mass ratio] 9.3 mg/mg Normal [facility] Comment on above: Performed By: #### T 7, LIPA, TSH, AMADOU, CMP #### [facility] [address] [place] [address] Dr. Krystle Heaton TSHon 03-17-2021 TSH 1.904 uIU/mL Normal 0.470-4.680 [facility] Comment on above: Performed By: #### T 7, LIPA, TSH, AMADOU, CMP #### [facility] [address] [place] [address] Dr. Krystle Heaton TSH RANGE SEE BELOW Normal [facility] Comment on above: Result Comment: <0.3 4 UIU/ml HYPERTHYROID 0.34-5.60 UIU/ml EUTHYROID >5.60 UIU/ml HYPOTHYROID Performed By: #### T 7, LIPA, TSH, AMADOU, CMP #### [facility] [address] [place] [address] Dr. Krystle Heaton CBC AUTO DIFFon 03-08-2021 BASO # 0.0 103/ul Normal 0.0-0.1 [facility] Comment on above: Performed By: #### T 7, LIPA, TSH, AMADOU, CMP #### [facility] [address] [place] [address] Dr. Krystle Heaton Basophils/100 WBC (Bld) 0.8 % Normal 0.2-2.0 [facility] Comment on above: Performed By: #### T 7, LIPA, TSH, AMADOU, CMP #### [facility] [address] [place] [address] Dr. Krystle Heaton EO # 0.1 103/ul Normal 0.0-0.7 [facility] Comment on above: Performed By: #### T 7, LIPA, TSH, AMADOU, CMP #### [facility] [address] [place] [address] Dr. Krystle Heaton Eosinophils/100 WBC (Bld) 1.5 % Normal 0.9-7.0 [facility] Comment on above: Performed By: #### T 7, LIPA, TSH, AMADOU, CMP #### [facility] [address] [place] [address] Dr. Krystle Heaton Erythrocyte distribution width (RBC) [Ratio] 12.2 % Normal 11.0-15.0 [facility] Comment on above: Performed By: #### T 7, LIPA, TSH, AMADOU, CMP #### [facility] [address] [place] [address] Dr. Krystle Heaton Hematocrit (Bld) [Volume fraction] 45.5 % Normal 42.0-54.0 [facility] Comment on above: Performed By: #### T 7, LIPA, TSH, AMADOU, CMP #### [facility] [address] [place] [address] Dr. Krystle Heaton Hemoglobin (Bld) [Mass/Vol] 15.9 g/dL Normal 14.0-18.0 [facility] Comment on above: Performed By: #### T 7, LIPA, TSH, AMADOU, CMP #### [facility] [address] [place] [address] Dr. Krystle Heaton IG # 0.01 10e3/ul Normal 0.00-0.03 [facility] Comment on above: Performed By: #### T 7, LIPA, TSH, AMADOU, CMP #### [facility] [address] [place] [address] Dr. Krystle Heaton IG % 0.2 % Normal 0.0-0.5 [facility] Comment on above: Performed By: #### T 7, LIPA, TSH, AMADOU, CMP #### [facility] [address] [place] [address] Dr. Krystle Heaton LYMPH # 1.8 103/ul Normal 1.2-3.8 [facility] Comment on above: Performed By: #### T 7, LIPA, TSH, AMADOU, CMP #### [facility] [address] [place] [address] Dr. Krystle Heaton Lymphocytes/100 WBC (Bld) 37.8 % Normal 20.5-60.0 [facility] Comment on above: Performed By: #### T 7, LIPA, TSH, AMADOU, CMP #### [facility] [address] [place] [address] Dr. Krystle Heaton MANUAL DIFF REQ NO Normal [facility] Comment on above: Performed By: #### T 7, LIPA, TSH, AMADOU, CMP #### [facility] [address] [place] [address] Dr. Krystle Heaton MCH (RBC) [Entitic mass] 36.4 pg Critically high 25.9-34.0 [facility] Comment on above: Performed By: #### T 7, LIPA, TSH, AMADOU, CMP #### [facility] [address] [place] [address] Dr. Krystle Heaton MCHC (RBC) [Mass/Vol] 34.9 g/dL Normal 29.9-35.2 [facility] Comment on above: Performed By: #### T 7, LIPA, TSH, AMADOU, CMP #### [facility] [address] [place] [address] Dr. Krystle Heaton MCV (RBC) [Entitic vol] 104.1 fL Critically high 80.0-94.0 [facility] Comment on above: Performed By: #### T 7, LIPA, TSH, AMADOU, CMP #### [facility] [address] [place] [address] Dr. Krystle Heaton MONO # 0.4 103/ul Normal 0.3-0.8 [facility] Comment on above: Performed By: #### T 7, LIPA, TSH, AMADOU, CMP #### [facility] [address] [place] [address] Dr. Krystle Heaton Monocytes/100 WBC (Bld) 8.3 % Normal 1.7-12.0 [facility] Comment on above: Performed By: #### T 7, LIPA, TSH, AMADOU, CMP #### [facility] [address] [place] [address] Dr. Krystle Heaton NEUT # 2.4 103/ul Normal 1.4-6.5 [facility] Comment on above: Performed By: #### T 7, LIPA, TSH, AMADOU, CMP #### [facility] [address] [place] [address] Dr. Krystle Heaton Neutrophils/100 WBC (Bld) 51.4 % Normal 43.0-75.0 [facility] Comment on above: Performed By: #### T 7, LIPA, TSH, AMADOU, CMP #### [facility] [address] [place] [address] Dr. Krystle Heaton Platelet mean volume (Bld) [Entitic vol] 10.8 fL Normal 9.5-13.5 [facility] Comment on above: Performed By: #### T 7, LIPA, TSH, AMADOU, CMP #### [facility] [address] [place] [address] Dr. Krystle Heaton PLT 175 103/ul Normal 150-450 [facility] Comment on above: Performed By: #### T 7, LIPA, TSH, AMADOU, CMP #### [facility] [address] [place] [address] Dr. Krystle Heaton RBC 4.37 106/ul Critically low 4.70-6.10 [facility] Comment on above: Performed By: #### T 7, LIPA, TSH, AMADOU, CMP #### [facility] [address] [place] [address] Dr. Krystle Heaton WBC 4.7 103/ul Normal 4.0-11.0 [facility] Comment on above: Performed By: #### T 7, LIPA, TSH, AMADOU, CMP #### [facility] [address] [place] [address] Dr. Krystle Heaton FERRITINon 03-08-2021 Ferritin [Mass/Vol] ng/mL Critically high 17.9-464.0 [facility] Comment on above: Performed By: #### T 7, LIPA, TSH, AMADOU, CMP #### [facility] [address] [place] [address] Dr. Krystle Heaton FREE T4on 03-08-2021 Free T4 [Mass/Vol] 0.73 ng/dL Critically low 0.78-2.19 [facility] Comment on above: Performed By: #### T 7, LIPA, TSH, AMADOU, CMP #### [facility] [address] [place] [address] Dr. Krystle Heaton IRON AND TIBCon 03-08-2021 % SATURATION 102.2 % Normal [facility] Comment on above: Performed By: #### T 7, LIPA, TSH, AMADOU, CMP #### [facility] [address] [place] [address] Dr. Krystle Heaton Iron [Mass/Vol] 279.0 ug/dL Critically high 49.0-181.0 [facility] Comment on above: Performed By: #### T 7, LIPA, TSH, AMADOU, CMP #### [facility] [address] [place] [address] Dr. Krystle Heaton TIBC DIRECT 273.0 ug/dL Normal 261.0-497.0 [facility] Comment on above: Performed By: #### T 7, LIPA, TSH, AMADOU, CMP #### [facility] [address] [address] [address] Krystle Heaton PROF 14(COMP METB)on 021 Albumin [Mass/Vol] 3.6 g/dL Normal 3.5-5.0 [facility] Comment on above: Performed By: #### T 7, LIPA, TSH, AMADOU, CMP #### [facility] [address] [place] [address] Dr. Krystle Heaton Albumin/Globulin [Mass ratio] 1.0 {ratio} Normal [facility] Comment on above: Performed By: #### T 7, LIPA, TSH, AMADOU, CMP #### [facility] [address] [place] [address] Dr. Krystle Heaton ALP [Catalytic activity/Vol] 68 U/L Normal 38-126 [facility] Comment on above: Performed By: #### T 7, LIPA, TSH, AMADOU, CMP #### [facility] [address] [address] [address] Krystle Heaton ALT [Catalytic activity/Vol] 58 U/L Normal 21-72 [facility] Comment on above: Performed By: #### T 7, LIPA, TSH, AMADOU, CMP #### [facility] [address] [address] [address] Krystle Heaton Anion gap [Moles/Vol] 15.5 mmol/L Normal [facility] Comment on above: Performed By: #### T 7, LIPA, TSH, AMADOU, CMP #### [facility] [address] [address] [address] Krystle Heaton AST [Catalytic activity/Vol] 56 U/L Normal 17-59 [facility] Comment on above: Performed By: #### T 7, LIPA, TSH, AMADOU, CMP #### [facility] [address] [address] [address] Krystle Heaton Bilirubin [Mass/Vol] 0.7 mg/dL Normal 0.2-1.3 [facility] Comment on above: Performed By: #### T 7, LIPA, TSH, AMADOU, CMP #### [facility] [address] [place] [address] Dr. Krystle Heaton Calcium [Mass/Vol] 8.9 mg/dL Normal 8.4-10.2 [facility] Comment on above: Performed By: #### T 7, LIPA, TSH, AMADOU, CMP #### [facility] [address] [place] [address] Dr. Krystle Heaton Chloride [Moles/Vol] 100 mmol/L Normal 98-107 [facility] Comment on above: Performed By: #### T 7, LIPA, TSH, AMADOU, CMP #### [facility] [address] [place] [address] Dr. Krystle Heaton CO2 [Moles/Vol] 26.6 mmol/L Normal 22.0-30.0 [facility] Comment on above: Performed By: #### T 7, LIPA, TSH, AMADOU, CMP #### [facility] [address] [place] [address] Dr. Krystle Heaton Creatinine [Mass/Vol] 1.12 mg/dL Normal 0.66-1.25 [facility] Comment on above: Performed By: #### T 7, LIPA, TSH, AMADOU, CMP #### [facility] [address] [place] [address] Dr. Krystle Heaton EGFR-AF CONGOLESE >60 Normal >=60 [facility] Comment on above: Performed By: #### T 7, LIPA, TSH, AMADOU, CMP #### [facility] [address] [place] [address] Dr. Krystle Heaton EGFR-NON AF CONGOLESE >60 Normal >=60 [facility] Comment on above: Performed By: #### T 7, LIPA, TSH, AMADOU, CMP #### [facility] [address] [place] [address] Dr. Krystle Heaton Globulin (S) [Mass/Vol] 3.7 g/dL Normal [facility] Comment on above: Performed By: #### T 7, LIPA, TSH, AMADOU, CMP #### [facility] [address] [place] [address] Dr. Krystle Heaton Glucose [Mass/Vol] 101 mg/dL Normal 74-106 [facility] Comment on above: Performed By: #### T 7, LIPA, TSH, AMADOU, CMP #### [facility] [address] [place] [address] Dr. Krystle Heaton Potassium [Moles/Vol] 4.1 mmol/L Normal 3.4-5.0 [facility] Comment on above: Performed By: #### T 7, LIPA, TSH, AMADOU, CMP #### [facility] [address] [place] [address] Dr. Krystle Heaton Protein [Mass/Vol] 7.3 g/dL Normal 6.1-8.2 [facility] Comment on above: Performed By: #### T 7, LIPA, TSH, AMADOU, CMP #### [facility] [address] [place] [address] Dr. Krystle Heaton Sodium [Moles/Vol] 138 mmol/L Normal 137-145 [facility] Comment on above: Performed By: #### T 7, LIPA, TSH, AMADOU, CMP #### [facility] [address] [place] [address] Dr. Krystle Heaton Urea nitrogen [Mass/Vol] 17.0 mg/dL Normal 9.0-20.0 [facility] Comment on above: Performed By: #### T 7, LIPA, TSH, AMADOU, CMP #### [facility] [address] [place] [address] Dr. Krystle Heaton Urea nitrogen/Creatinine [Mass ratio] 15.2 mg/mg Normal [facility] Comment on above: Performed By: #### T 7, LIPA, TSH, AMADOU, CMP #### [facility] [address] [place] [address] Dr. Krystle Heaton TSHon 03-08-2021 TSH 1.781 uIU/mL Normal 0.470-4.680 [facility] Comment on above: Performed By: #### T 7, LIPA, TSH, AMADOU, CMP #### [facility] [address] [place] [address] Dr. Krystle Heaton TSH RANGE SEE BELOW Normal [facility] Comment on above: Result Comment: <0.3 4 UIU/ml HYPERTHYROID 0.34-5.60 UIU/ml EUTHYROID >5.60 UIU/ml HYPOTHYROID Performed By: #### T 7, LIPA, TSH, AMADOU, CMP #### [facility] [address] [place] [address] Dr. Krystle Heaton FERRITINon 02-03-2021 Ferritin [Mass/Vol] ng/mL Critically high 17.9-464.0 [facility] Comment on above: Performed By: #### C BC #### [facility] [address] [place] [address] Billy Devlin [facility]on SARS-CoV-2 (COVID-19) RNA JIMBO+probe Ql (Unsp spec) Not detected Normal NOT DETECTED [facility] Comment on above: Result Comment: This test is not yet approved or cleared by the [place] FDA. When there are no FDA-approved or cleared tests available, and other criteria are met, FDA can make tests available under an emergency access mechanism called an Emergency Use Authorization (EUA). The EUA for this test is supported by the [employer] and Human Service's (HHS's) declaration [...] T 7, LIPA, TSH, AMADOU, CMP #### [facility] [address] [place] [address] Dr. Krystle Heaton CBC AUTO DIFFon 01-06-2021 BASO # 0.0 103/ul Normal 0.0-0.1 [facility] Comment on above: Performed By: #### T 7, LIPA, TSH, AMADOU, CMP #### [facility] [address] [place] [address] Dr. Krystle Heaton Basophils/100 WBC (Bld) 1.0 % Normal 0.2-2.0 [facility] Comment on above: Performed By: #### T 7, LIPA, TSH, AMADOU, CMP #### [facility] [address] [place] [address] Dr. Krystle Heaton EO # 0.1 103/ul Normal 0.0-0.7 [facility] Comment on above: Performed By: #### T 7, LIPA, TSH, AMADOU, CMP #### [facility] [address] [place] [address] Dr. Krystle Heaton Eosinophils/100 WBC (Bld) 2.5 % Normal 0.9-7.0 [facility] Comment on above: Performed By: #### T 7, LIPA, TSH, AMADOU, CMP #### [facility] [address] [place] [address] Dr. Krystle Heaton Erythrocyte distribution width (RBC) [Ratio] 13.7 % Normal 11.0-15.0 [facility] Comment on above: Performed By: #### T 7, LIPA, TSH, AMADOU, CMP #### [facility] [address] [place] [address] Dr. Krystle Heaton Hematocrit (Bld) [Volume fraction] 44.1 % Normal 42.0-54.0 [facility] Comment on above: Performed By: #### T 7, LIPA, TSH, AMADOU, CMP #### [facility] [address] [place] [address] Dr. Krystle Heaton Hemoglobin (Bld) [Mass/Vol] 15.0 g/dL Normal 14.0-18.0 [facility] Comment on above: Performed By: #### T 7, LIPA, TSH, AMADOU, CMP #### [facility] [address] [place] [address] Dr. Krystle Heaton IG # 0.02 10e3/ul Normal 0.00-0.03 [facility] Comment on above: Performed By: #### T 7, LIPA, TSH, AMADOU, CMP #### [facility] [address] [place] [address] Dr. Krystle Heaton IG % 0.5 % Normal 0.0-0.5 [facility] Comment on above: Performed By: #### T 7, LIPA, TSH, AMADOU, CMP #### [facility] [address] [place] [address] Dr. Krystle Heaton LYMPH # 1.6 103/ul Normal 1.2-3.8 [facility] Comment on above: Performed By: #### T 7, LIPA, TSH, AMADOU, CMP #### [facility] [address] [place] [address] Dr. Krystle Heaton Lymphocytes/100 WBC (Bld) 40.7 % Normal 20.5-60.0 [facility] Comment on above: Performed By: #### T 7, LIPA, TSH, AMADOU, CMP #### [facility] [address] [place] [address] Dr. Krystle Heaton MANUAL DIFF REQ NO Normal [facility] Comment on above: Performed By: #### T 7, LIPA, TSH, AMADOU, CMP #### [facility] [address] [place] [address] Dr. Krystle Heaton MCH (RBC) [Entitic mass] 36.2 pg Critically high 25.9-34.0 [facility] Comment on above: Performed By: #### T 7, LIPA, TSH, AMADOU, CMP #### [facility] [address] [place] [address] Dr. Krystle Heaton MCHC (RBC) [Mass/Vol] 34.0 g/dL Normal 29.9-35.2 [facility] Comment on above: Performed By: #### T 7, LIPA, TSH, AMADOU, CMP #### [facility] [address] [place] [address] Dr. Krystle Heaton MCV (RBC) [Entitic vol] 106.5 fL Critically high 80.0-94.0 [facility] Comment on above: Performed By: #### T 7, LIPA, TSH, AMADOU, CMP #### [facility] [address] [place] [address] Dr. Krystle Heaton MONO # 0.3 103/ul Normal 0.3-0.8 [facility] Comment on above: Performed By: #### T 7, LIPA, TSH, AMADOU, CMP #### [facility] [address] [place] [address] Dr. Krystle Heaton Monocytes/100 WBC (Bld) 8.1 % Normal 1.7-12.0 [facility] Comment on above: Performed By: #### T 7, LIPA, TSH, AMADOU, CMP #### [facility] [address] [place] [address] Dr. Krystle Heaton NEUT # 1.9 103/ul Normal 1.4-6.5 [facility] Comment on above: Performed By: #### T 7, LIPA, TSH, AMADOU, CMP #### [facility] [address] [place] [address] Dr. Krystle Heaton Neutrophils/100 WBC (Bld) 47.2 % Normal 43.0-75.0 [facility] Comment on above: Performed By: #### T 7, LIPA, TSH, AMADOU, CMP #### [facility] [address] [place] [address] Dr. Krystle Heaton Platelet mean volume (Bld) [Entitic vol] 11.6 fL Normal 9.5-13.5 [facility] Comment on above: Performed By: #### T 7, LIPA, TSH, AMADOU, CMP #### [facility] [address] [place] [address] Dr. Krystle Heaton PLT 184 103/ul Normal 150-450 [facility] Comment on above: Performed By: #### T 7, LIPA, TSH, AMADOU, CMP #### [facility] [address] [place] [address] Dr. Krystle Heaton RBC 4.14 106/ul Critically low 4.70-6.10 [facility] Comment on above: Performed By: #### T 7, LIPA, TSH, AMADOU, CMP #### [facility] [address] [place] [address] Dr. Krystle Heaton WBC 4.0 103/ul Normal 4.0-11.0 [facility] Comment on above: Performed By: #### T 7, LIPA, TSH, AMADOU, CMP #### [facility] [address] [place] [address] Dr. Krystle Heaton FERRITINon 01-06-2021 Ferritin [Mass/Vol] ng/mL Critically high 17.9-464.0 [facility] Comment on above: Performed By: #### H BSANS #### [facility] [address] [place] [address] Billy Devlin CBC AUTO DIFFon 12-09-2020 BASO # 0.0 103/ul Normal 0.0-0.1 [facility] Comment on above: Performed By: #### T 7, LIPA, TSH, AMADOU, CMP #### [facility] [address] [place] [address] Dr. Krystle Heaton Basophils/100 WBC (Bld) 0.6 % Normal 0.2-2.0 [facility] Comment on above: Performed By: #### T 7, LIPA, TSH, AMADOU, CMP #### [facility] [address] [place] [address] Dr. Krystle Heaton EO # 0.1 103/ul Normal 0.0-0.7 [facility] Comment on above: Performed By: #### T 7, LIPA, TSH, AMADOU, CMP #### [facility] [address] [place] [address] Dr. Krystle Heaton Eosinophils/100 WBC (Bld) 2.6 % Normal 0.9-7.0 [facility] Comment on above: Performed By: #### T 7, LIPA, TSH, AMADOU, CMP #### [facility] [address] [place] [address] Dr. Krystle Heaton Erythrocyte distribution width (RBC) [Ratio] 13.0 % Normal 11.0-15.0 [facility] Comment on above: Performed By: #### T 7, LIPA, TSH, AMADOU, CMP #### [facility] [address] [place] [address] Dr. Krystle Heaton Hematocrit (Bld) [Volume fraction] 46.2 % Normal 42.0-54.0 [facility] Comment on above: Performed By: #### T 7, LIPA, TSH, AMADOU, CMP #### [facility] [address] [place] [address] Dr. Krystle Heaton Hemoglobin (Bld) [Mass/Vol] 16.0 g/dL Normal 14.0-18.0 [facility] Comment on above: Performed By: #### T 7, LIPA, TSH, AMADOU, CMP #### [facility] [address] [place] [address] Dr. Krystle Heaton IG # 0.01 10e3/ul Normal 0.00-0.03 [facility] Comment on above: Performed By: #### T 7, LIPA, TSH, AMADOU, CMP #### [facility] [address] [place] [address] Dr. Krystle Heaton IG % 0.2 % Normal 0.0-0.5 [facility] Comment on above: Performed By: #### T 7, LIPA, TSH, AMADOU, CMP #### [facility] [address] [place] [address] Dr. Krystle Heaton LYMPH # 1.3 103/ul Normal 1.2-3.8 [facility] Comment on above: Performed By: #### T 7, LIPA, TSH, AMADOU, CMP #### [facility] [address] [place] [address] Dr. Krystle Heaton Lymphocytes/100 WBC (Bld) 27.8 % Normal 20.5-60.0 [facility] Comment on above: Performed By: #### T 7, LIPA, TSH, AMADOU, CMP #### [facility] [address] [place] [address] Dr. Krystle Heaton MANUAL DIFF REQ NO Normal [facility] Comment on above: Performed By: #### T 7, LIPA, TSH, AMADOU, CMP #### [facility] [address] [place] [address] Dr. Krystle Heaton MCH (RBC) [Entitic mass] 34.9 pg Critically high 25.9-34.0 [facility] Comment on above: Performed By: #### T 7, LIPA, TSH, AMADOU, CMP #### [facility] [address] [place] [address] Dr. Krystle Heaton MCHC (RBC) [Mass/Vol] 34.6 g/dL Normal 29.9-35.2 [facility] Comment on above: Performed By: #### T 7, LIPA, TSH, AMADOU, CMP #### [facility] [address] [place] [address] Dr. Krystle Heaton MCV (RBC) [Entitic vol] 100.9 fL Critically high 80.0-94.0 [facility] Comment on above: Performed By: #### T 7, LIPA, TSH, AMADOU, CMP #### [facility] [address] [place] [address] Dr. Krystle Heaton MONO # 0.3 103/ul Normal 0.3-0.8 [facility] Comment on above: Performed By: #### T 7, LIPA, TSH, AMADOU, CMP #### [facility] [address] [place] [address] Dr. Krystle Heaton Monocytes/100 WBC (Bld) 6.6 % Normal 1.7-12.0 [facility] Comment on above: Performed By: #### T 7, LIPA, TSH, AMADOU, CMP #### [facility] [address] [place] [address] Dr. Krystle Heaotn NEUT # 2.9 103/ul Normal 1.4-6.5 [facility] Comment on above: Performed By: #### T 7, LIPA, TSH, AMADOU, CMP #### [facility] [address] [place] [address] Dr. Krystle Heaton Neutrophils/100 WBC (Bld) 62.2 % Normal 43.0-75.0 [facility] Comment on above: Performed By: #### T 7, LIPA, TSH, AMADOU, CMP #### [facility] [address] [address] [address] Krystle Heaton Platelet mean volume (Bld) [Entitic vol] 11.0 fL Normal 9.5-13.5 [facility] Comment on above: Performed By: #### T 7, LIPA, TSH, AMADOU, CMP #### [facility] [address] [place] [address] Dr. Krystle Heaton PLT 171 103/ul Normal 150-450 [facility] Comment on above: Performed By: #### T 7, LIPA, TSH, AMADOU, CMP #### [facility] [address] [place] [address] Dr. Krystle Heaton RBC 4.58 106/ul Critically low 4.70-6.10 [facility] Comment on above: Performed By: #### T 7, LIPA, TSH, AMADOU, CMP #### [facility] [address] [place] [address] Dr. Krystle Heaton WBC 4.7 103/ul Normal 4.0-11.0 [facility] Comment on above: Performed By: #### T 7, LIPA, TSH, AMADOU, CMP #### [facility] [address] [place] [address] Dr. Krystle Heaton PROF 14(COMP METB)on 021 Albumin [Mass/Vol] 3.9 g/dL Normal 3.5-5.0 [facility] Comment on above: Performed By: #### T 7, LIPA, TSH, AMADOU, CMP #### [facility] [address] [place] [address] Dr. Krystle Heaton Albumin/Globulin [Mass ratio] 1.1 {ratio} Normal [facility] Comment on above: Performed By: #### T 7, LIPA, TSH, AMADOU, CMP #### [facility] [address] [place] [address] Dr. Krystle Heaton ALP [Catalytic activity/Vol] 86 U/L Normal 38-126 [facility] Comment on above: Performed By: #### T 7, LIPA, TSH, AMADOU, CMP #### [facility] [address] [place] [address] Dr. Krystle Heaton ALT [Catalytic activity/Vol] 87 U/L Critically high 21-72 [facility] Comment on above: Performed By: #### T 7, LIPA, TSH, AMADOU, CMP #### [facility] [address] [place] [address] Dr. Krystle Heaton Anion gap [Moles/Vol] 15.7 mmol/L Normal [facility] Comment on above: Performed By: #### T 7, LIPA, TSH, AMADOU, CMP #### [facility] [address] [place] [address] Dr. Krystle Heaton AST [Catalytic activity/Vol] 70 U/L Critically high 17-59 [facility] Comment on above: Performed By: #### T 7, LIPA, TSH, AMADOU, CMP #### [facility] [address] [place] [address] Dr. Krystle Heaton Bilirubin [Mass/Vol] 1.4 mg/dL Critically high 0.2-1.3 [facility] Comment on above: Performed By: #### T 7, LIPA, TSH, AMADOU, CMP #### [facility] [address] [place] [address] Dr. Krystle Heaton Calcium [Mass/Vol] 9.3 mg/dL Normal 8.4-10.2 [facility] Comment on above: Performed By: #### T 7, LIPA, TSH, AMADOU, CMP #### [facility] [address] [place] [address] Dr. Krystle Heaton Chloride [Moles/Vol] 102 mmol/L Normal 98-107 [facility] Comment on above: Performed By: #### T 7, LIPA, TSH, AMADOU, CMP #### [facility] [address] [place] [address] Dr. Krystle Heaton CO2 [Moles/Vol] 26.5 mmol/L Normal 22.0-30.0 [facility] Comment on above: Performed By: #### T 7, LIPA, TSH, AMADOU, CMP #### [facility] [address] [place] [address] Dr. Krystle Heaton Creatinine [Mass/Vol] 1.27 mg/dL Critically high 0.66-1.25 [facility] Comment on above: Performed By: #### T 7, LIPA, TSH, AMADOU, CMP #### [facility] [address] [place] [address] Dr. Krystle Heaton EGFR-AF CONGOLESE >60 Normal >=60 [facility] Comment on above: Performed By: #### T 7, LIPA, TSH, AMADOU, CMP #### [facility] [address] [place] [address] Dr. Krystle Heaton EGFR-NON AF CONGOLESE =60 Normal >=60 [facility] Comment on above: Performed By: #### T 7, LIPA, TSH, AMADOU, CMP #### [facility] [address] [place] [address] Dr. Krystle Heaton Globulin (S) [Mass/Vol] 3.5 g/dL Normal [facility] Comment on above: Performed By: #### T 7, LIPA, TSH, AMADOU, CMP #### [facility] [address] [place] [address] Dr. Krystle Heaton Glucose [Mass/Vol] 120 mg/dL Critically high 74-106 [facility] Comment on above: Performed By: #### T 7, LIPA, TSH, AMADOU, CMP #### [facility] [address] [place] [address] Dr. Krystle Heaton Potassium [Moles/Vol] 4.2 mmol/L Normal 3.4-5.0 [facility] Comment on above: Performed By: #### T 7, LIPA, TSH, AMADOU, CMP #### [facility] [address] [place] [address] Dr. Krystle Heaton Protein [Mass/Vol] 7.4 g/dL Normal 6.1-8.2 [facility] Comment on above: Performed By: #### T 7, LIPA, TSH, AMADOU, CMP #### [facility] [address] [place] [address] Dr. Krystle Heaton Sodium [Moles/Vol] 140 mmol/L Normal 137-145 [facility] Comment on above: Performed By: #### T 7, LIPChasidy, TSH, AMADOU, CMP #### [facility] [address] [place] [address] Dr. Krystle Heaton Urea nitrogen [Mass/Vol] 12.0 mg/dL Normal 9.0-20.0 [facility] Comment on above: Performed By: #### T 7, LIPChasidy, TSH, AMADOU, CMP #### [facility] [address] [place] [address] Dr. Krystle Heaton Urea nitrogen/Creatinine [Mass ratio] 9.4 mg/mg Normal [facility] Comment on above: Performed By: #### T 7, LA, SAVITA, AMADOU, CMP #### [facility] [address] [place] [address] Dr. Krystle Heaton PROTIMEon 12-09-2020 INR Coag (PPP) [Relative time] 0.96 {INR} Normal [facility] Comment on above: Performed By: #### H BSANS #### [facility] [address] [place] [address] Billy Devlin INR GUIDELINES SEE BELOW Normal [facility] Comment on above: Result Comment: MOUNA RED INR: 2.0 - 3.0 CONDITIONS NOT LISTED BELOW 2.5 - 3.5 FOR PROSTHETIC HEART VALVE REPLACEMENT 2.5 - 3.5 RECURRENT THROMBOSIS Performed By: #### H BSANS #### [facility] [address] [place] [address] Billy Devlin PT Coag (PPP) [Time] 10.5 s Normal 9.0-11.6 [facility] Comment on above: Performed By: #### H BSANS #### [facility] [address] [place] [address] Billy Devlin US SINGLE QUAD RT UPPERon [...] by: KRISTEN GODINEZ Date: 2020-12-09 10:23 Normal [facility] Encounters Encounter Date Encounter Type Care Provider Facility Start: 07-14-2024 End: 07-14-2024 ambulatory RASHAWN H TIMMIS Not Available Start: 05-26-2024 End: 05-26-2024 ambulatory RASHAWN H TIMMIS Not Available Start: 05-24-2024 End: 05-24-2024 ambulatory DARIEN WARE Not Available Start: 04-03-2022 End: 04-03-2022 ambulatory Magaly Sewell Facility:[facility] Start: 11-26-2021 End: 11-27-[address] GENEVIEVE ARREOLA Facility:[facility] Start: 11-15-2021 End: 11-15-[address] GENEVIEVE ARREOLA Facility:[facility] Start: 10-08-2021 End: 10-09-[address] AMADOU BROWN Facility:[facility] Start: 09-10-2021 End: 09-11-[address] AMADOU BROWN Facility:[facility] Start: 08-15-2021 End: 08-16-[address] AMADOU BROWN Facility:[facility] Start: 08-13-2021 Encounter for preprocedural laboratory examination DR DOCTOR PALUMBO [facility] Start: 08-10-2021 AUDIT No PCP None [facility] [place] [address] [facility] Work Phone: Start: 08-02-2021 Chart Update No PCP None [facility] [place] [address] [facility] Work Phone: Start: 07-28-2021 End: 07-29-2021 [...] ne w 45 minutes No PCP None [facility] [place] [address] [facility] Work Phone: Start: 04-06-2021 [...] No PCP None [facility] [place] [address] [facility] Work Phone: Procedures Date Procedure Procedure Detail Performing Clinician Biopsy of liver No PCP None Repair of musculoten dinous cuff of shoulder No PCP None Payers Date Payer Category Payer Unknown [id number] 1970 Unknown [id number] 2.16.84 [id number] 1970 Unknown [id number] 2.16.84 0.1.111054.3.579.2.593 1969 Unknown [id number] 2.16.84 0.1.563231.3.579.2.593 1969 Unknown [id number] 2.16.84 0.1.466761.3.579.2.593 1969 Unknown [id number] 2.16.84 0.1.159079.3.579.2.593 1969 Unknown [id number] 2.16.84 0.1.677394.3.579.2.593 1969 Unknown [id number] 2.16.84 0.1.480804.3.579.2.593 1969 Unknown [id number] 2.16.84 0.1.219298.3.579.2.593 1969 Unknown [id number] 2.16.84 0.1.435197.3.579.2.593 1969 Unknown [id number] 2.16.84 0.1.871486.3.579.2.593 1969 Unknown [id number] 2.16.84 0.1.212620.3.579.2.593 1969 Unknown [id number] 2.16.84 0.1.006710.3.579.2.593 1969 Unknown [id number] 2.16.84 0.1.597043.3.579.2.593 1969 Unknown [id number] 2.16.84 0.1.473736.3.579.2.593 1969 Unknown [id number] 2.16.84 0.1.271815.3.579.2.593 1969 Unknown [id number] 2.16.84 0.1.274837.3.579.2.593 1969 Unknown [id number] 2.16.84 0.1.283191.3.579.2.593 1969 Unknown [id number] 2.16.84 0.1.706558.3.579.2.593 1969 Unknown [id number] 2.16.84 0.1.152037.3.579.2.593 1969 Unknown [id number] 2.16.84 0.1.941656.3.579.2.593 1969 Unknown [id number] 2.16.84 0.1.753873.3.579.2.593 1969 Unknown [id number] 2.16.84 0.1.923135.3.579.2.593 1969 Unknown [id number] 2.16.84 0.1.498909.3.579.2.1259 1969 Unknown [id number] 2.16.84 0.1.749523.3.579.2.1259 1969 Unknown [id number] 2.16.84 0.1.612520.3.579.2.1259 1959 Self-pay [id number] Self-pay 1960 Unknown [id number] Unknown ANTHEM Unknown [id number] 2.16.84 0.1.046058.3.579.2.593 Unknown [id number] 2.16.84 0.1.146671.3.579.2.593 Unknown [id number] 2.16.8 40.1.684923.3.579.2.531 Social History Date Type Detail Facility Former smoker Former smoker [facility] [address] [facility] Work Phone: Start: 1970 Sex Assigned At Male F [facility] Clinical Note 07-31-2021 Note Date & [...] report Procedure performed by: Sandy Roland MD Dough Machine Operator(s): Dee Lopes Md Estimated Blood [...] Last Updated: 02-Aug-2021 13:04 by Sandy Roland) [facility] Clinical Note 05-08-2021 Note Date & Type Note Facility 05-08-2021 Note Pre-procedure Verifi cation and Time Out: Pre-Procedure Verification and Time Out: Procedure Locationprocedure area HUDDLE - Pre-procedure Verificationcompleted TIME OUT - Final Verificationcompleted DEBRIEFcompleted General Information: Anesthesia Critical Care: Non-Anesthesia Date/Time of Procedure: 08-May-2021 11:57 Post-Procedure Diagnosis: same Procedure Name: CT Liver Biopsy Findings: grossly normal anatomy Procedure performed by: me Dough Machine Operator(s): none Estimated Blood Loss (mL): [...] Last Updated: 08-May-2021 11:58 by Uri Bacon) [facility] Evaluation note Note Date & Type Note Facility Evaluation note No assessment information [facility] Work Phone: History of Present [...] no lower extremity edema.Symptom History:Modifying Factors:Associated Symptoms: [id number]-Gkrbhq ke [facility] Work Phone: Chief Complaint [...] section and content) DATE CREATED AUTHOR 04/14/2021 [employer] DATE CREATED AUTHOR AUTHOR'S ORGANIZ ATION 05/15/2021 [facility] DATE CREATED AUTHOR AUTHOR'S ORGANIZ ATION 11/29/2021 [facility] DATE CREATED AUTHOR AUTHOR'S ORGANIZ ATION 04/15/2022 [facility] DATE CREATED AUTHOR AUTHOR'S ORGANIZ ATION 01/28/2023 [facility] DATE CREATED AUTHOR AUTHOR'S ORGANIZ ATION 05/24/2023 [facility] DATE CREATED AUTHOR AUTHOR'S ORGANIZ ATION 07/15/2024 [facility] EPIC Goals (unrecognized section and [...] BE BASED ON THE PRIMARY CLINICAL RECORDS. [facility] [employer] [facility]. provides no warranty or guarantee of the accuracy or completeness of information in this document.
== END 2024-08-31 08:27 | disposition home or self-care (01) ==
LOC: CT 08:26
PROVIDERS: PCP Family Medicine; Visit Provider Family Medicine
DX: R60.9 Edema, unspecified (principal)
CPT/HCPCS: 72193; Q9967

== ENCOUNTER 2024-09-02 08:59 | Outpatient (OUT) | payer OTHER, SELFPAY ==
--- NOTE | 2024-09-02 07:21 | VEINCLINIC_ITS ---
Vital Signs 09/02/24 09:11 Height 5 ft 10 in Weight 88.451 kg BMI 28.0 BP 109/77 BP Location Right Brachial BP Position Sitting BP Cuff Size Adult BP Source Automatic Cuff Respiration 16 Pulse 63 Pulse Source Monitor Pulse Oximetry (%) 98 Oxygen Delivery Method Room Air Varicose Veins Patient in this day with c/o bilateral leg pain, achiness, heaviness, and edema. Patient states sudden onset approximately one month ago. Patient has family history of varicose vein disease in his mother. Patient has not had any varicose vein treatment or blood clot issues in the past. Patient has not worn bilateral leg knee high compression stockings in the past, yet is willing to purchase them this day and wear them accordingly. Patient states the pain and achiness for 2-3 years, the edema was sudden onset in last month. David Fuentes MD personally performed the services described in this documentation, as scribed by Chema Amaya RN in my presence and it is both accurate and complete. Chema Fuentes RN, am scribing for, and in the presence of, Dr. David Quevedo and in the presence of the patient. thigh: bilateral, knee: bilateral, calf: bilateral, ankle: bilateral and funk: bilateral aching, cramping, intermittent and tender 7 1 month standing and sitting analgesics Reports heaviness, limb pain, edema and leg edema History of lower extremity trauma: No Superficial thrombophlebitis: No Family history of varicose veins: yes Has patient had previous lower extremity venous surgery: No Patient has previously received the following treatment(s) for lower extremity varicose veins: Reports none Does patient have a history of : not applicable Has patient had lower extremity venous scan with relux testing: No Support hose used: No Problems walking or doing physical activity: Yes How does it affect you: patient has to stop and rest when attempting to walk any kind of distance Do you walk much: Yes Do you stand much: Yes Review of Systems ROS Narrative David Fuentes MD personally performed the services described in this documentation, as scribed by Chema Amaya RN in my presence and it is both accurate and complete. Chema Fuentes RN, am scribing for, and in the presence of, Dr. David Quevedo and in the presence of the patient. 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) ?F10.21 - Alcohol dependence, in remission (ICD-10) Rotator cuff tear ?M75.100 - Unspecified rotator cuff tear or rupture of unspecified shoulder, not specified as traumatic (ICD-10) Heart palpitations ?R00.2 - Palpitations (ICD-10) Diverticulitis ?K57.92 - Diverticulitis of intestine, part unspecified, without perforation or abscess without bleeding (ICD-10) Hepatic fibrosis ?K74.00 - Hepatic fibrosis, unspecified (ICD-10) Gastroenteritis ?K52.9 - Noninfective gastroenteritis and colitis, unspecified (ICD-10) Serous otitis media ?H65.90 - Unspecified nonsuppurative otitis media, unspecified ear (ICD-10) Post-traumatic osteoarthritis, right shoulder ?M19.111 - Post-traumatic osteoarthritis, right shoulder (ICD-10) Hypertension ?I10 - Essential (primary) hypertension (ICD-10) High cholesterol ?E78.00 - Pure hypercholesterolemia, unspecified (ICD-10) Hereditary hemochromatosis ?E83.110 - Hereditary hemochromatosis (ICD-10) Fatty liver ?K76.0 - Fatty (change of) liver, not elsewhere classified (ICD-10) Hearing loss ?H91.90 - Unspecified hearing loss, unspecified ear (ICD-10) Anemia ?D64.9 - Anemia, unspecified (ICD-10) Acute kidney injury ?N17.9 - Acute kidney failure, unspecified (ICD-10) Abnormal AST and ALT ?R74.8 - Abnormal levels of other serum enzymes (ICD-10) Dysfunction of right eustachian tube ?H69.91 - Unspecified Eustachian tube disorder, right ear (ICD-10) Surgical History (Updated 06/22/24 @ 14:36 by Cristal Tolliver NP) H/O shoulder surgery ?Z98.890 - Other specified postprocedural states (ICD-10) History of liver biopsy ?Z98.890 - Other specified postprocedural states (ICD-10) Family History (Updated 09/02/24 @ 09:20 by Chema Amaya) Other Family history of cancer Family history of diabetes mellitus Family history of hypertension Heart disease Pain due to varicose veins of both lower extremities Social History (Updated 06/22/24 @ 14:46 by Cristal Tolliver NP) Within the past year, how often did you have a drink containing alcohol: never Score interpretation: A score less than 4 is consistent with normal alcohol consumption. 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 Highest level of school completed/degree received: Associate degree: occupational, technical, vocational program Meds Home Medications and Allergies Home Medications ?Medication ?Instructions ?Recorded ?Confirmed ?Type acamprosate 333 mg tablet,delayed 999 mg PO Q8H 06/22/24 07/06/24 History release carvedilol 6.25 mg tablet 6.25 mg PO QPM 06/22/24 07/06/24 History liothyronine 5 mcg tablet 5 mcg PO DAILY 06/22/24 07/06/24 History mirtazapine 45 mg tablet 45 mg PO DAILY 06/22/24 07/06/24 History risperidone 1 mg tablet 1 mg PO DAILY 06/22/24 07/06/24 History rosuvastatin 5 mg tablet 5 mg PO DAILY 06/22/24 07/06/24 History naltrexone microspheres 380 mg 380 mg IM .monthly 07/06/24 07/06/24 History intramuscular suspension,extended release (Vivitrol) Allergies Allergy/AdvReac Type Severity Reaction Status Date / Time morphine Allergy Eye Verified 06/22/24 14:37 swelling Exam Narrative Exam Narrative: David Fuentes MD personally performed the services described in this documentation, as scribed by Chema Amaya RN in my presence and it is both accurate and complete. Chema Fuentes RN, am scribing for, and in the presence of, Dr. David Quevedo and in the presence of the patient. Constitutional Documenting provider has reviewed patient's vital signs: yes Common normals: oriented x3 Cardio Peripheral pulses: posterior tibial pulses present and dorsalis pedis pulses present Extremity Common normals: normal capillary refill General: calf tenderness and edema Right lower extremity: lower leg Right lower leg: inspection and palpation Left lower extremity: lower leg Left lower leg: inspection and palpation Neuro Common normals: oriented x3 Results Additional Findings Additional findings: Bilateral leg reflux u/s reveals bilateral leg great saphenous and right small saphenous venous insufficiency along with associated dilation along with 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 Assessment and Plan Assessment and Plan (1) Edema, lower extremity: Plan Patient to initiate bilateral leg knee high compression stockings 20-30mmhg. F/u in three months. If patient symptomatic, move forward with EVLT of bilateral GSV's along with right SSV followed by microfoam chemical ablation bilateral leg branch saphenous varicosites. David Fuentes MD personally performed the services described in this documentation, as scribed by Chema Amaya RN in my presence and it is both accurate and complete. Chema Fuentes RN, am scribing for, and in the presence of, Dr. David Quevedo and in the presence of the patient.
--- NOTE | 2024-09-02 07:23 | P.DS_ITS ---
Discharge Plan Discharge Disposition: Home, Self-Care Follow Up Appointments: 3 months Plan of Treatment: administer bilateral leg knee high compression stockings x3 months Print Language: Somali Discharge Date/Time: 09/02/24 13:02
--- NOTE | 2024-09-02 09:00 | VEIN_ITS ---
Patient Name: ANGIE FRITZ MR#: [id number] : 1970 Exam Date: 09/02/2024 Ordering Doctor: DR GENEVIEVE ARREOLA . RADIOLOGY REPORT PROCEDURE: [facility]ILITY EST COMPREHENSIVE VEIN [facility] - OFFICE VISIT INITIAL COMPARISON: None. PROGRESS NOTES: [age] year old male who presents with a 3 year history of bilateral lower extremity pain, swelling, heaviness, pain, itching. The patient's left leg symptoms are worse than the right. There has been a progression of symptoms over time with significant change 1 month ago with development of greater edema. This increases with prolonged but dependency. The patient describes an improvement with rest, elevation, exercise. The patient denies any signs and symptoms to suggest arterial ischemia. The patient describes a family history varicose veins on maternal side. The patient has drinking and smoking history of : recently stopped drinking; former smoker. Patient has a past medical history significant for hepatic fibrosis acute kidney injury anxiety/depression. The patient denies a history of deep venous thrombus or pulmonary embolus. See separate history and physical for medication list. No prior treatment for varicose or spider veins. No prior use of compression stockings. After review of nurse notes, history and physical exam I discussed at length the pathophysiology of venous hypertension and possible treatments, therapies and strategies available. We discussed at length the importance of elevating the lower extremities above the level of the heart, increased physical activity and compression stocking use. Ultrasound venous reflux study performed today was discussed at length with the patient. The report demonstrates abnormally dilated incompetent great saphenous veins bilaterally and right saphenous vein along with associated incompetent branch saphenous varicosities. PHYSICAL EXAM: The right leg demonstrates a few varicosities, several spider veins, no ulceration, mild edema, no skin discoloration. The left leg demonstrates a few varicosities, several spider veins, no ulceration, moderate edema, no skin discoloration. Both thighs, legs and feet were symmetrically warm to the touch. Good posterior tibial and dorsalis pedis pulses were present bilaterally. VEIN/VC Facility EST Comprehensive IMPRESSION: 1. Bilateral lower extremity venous insufficiency 2. Bilateral lower extremity varicose veins 3. Bilateral lower extremity subcutaneous edema 4. No flow significant arterial disease 5. CEAP: C3, EC, , NH PLAN: 1. Begin wearing compression stockings for 3 months with follow-up appointment at that time. 2. Elevated legs and increased physical activity symptomatic relief 3. Endovenous laser ablation of right great saphenous, left great saphenous, and right small saphenous veins. 4. Microfoam chemical ablation of bilateral lower extremity incompetent branch saphenous varicosities. Nurse notes, history and physical were reviewed and confirmed, see attached forms. The nurse was present throughout the physical exam and consultation Dictated by: David Quevedo M.D. on 09/02/2024 at 10:42 Approved by: David Quevedo M.D. on 09/02/2024 at 10:50
--- NOTE | 2024-09-02 09:01 | VEIN_ITS ---
Patient Name: ANGIE FRITZ MR#: [id number] : 1970 Exam Date: 09/02/2024 Ordering Doctor: DR GENEVIEVE ARREOLA . RADIOLOGY REPORT PROCEDURE: VC EXT VENOUS REFLUX [facility] LMTD COMPARISON: None. INDICATIONS: R60.0 Localized Edema TECHNIQUE: Duplex imaging of the lower extremity to assess the deep and superficial venous system for the presence of deep or superficial venous incompetence and to document the location and severity of disease. The study includes evaluation of the great saphenous vein (GSV), anterior accessory saphenous vein (AASV) and small saphenous vein (SSV). Patient scanned in reverse Trendelenburg and standing. FINDINGS: RIGHT LOWER EXTREMITY: Saphenofemoral Junction Reflux: Yes 9.6mm 0.8 sec GSV: Diam (mm) Reflux/ Time (sec) Proximal Thigh 6.6 Yes 2.5 Mid Thigh 5.0 Yes 1.1 Distal Thigh 4.6 Yes 1.2 Prox Calf 3.9 No Mid Calf 3.6 Yes 0.5 Saphenopopliteal Junction Reflux: 5.5mm Yes 1.0 SSV: Proximal Calf 5.5 Yes 1.4 Mid Calf 3.6 Yes 0.7 AASV: Proximal Thigh 1.9 No Mid Thigh 2.5 Distal Thigh Thrombi: No acute or chronic thrombus visualized Compressibility: Normal Flow: Normal Preforator: Dist/med calf 3.1mm with 0s reflux. Tech Note: Incompetent GSV and SSV. Patent varicose vein prox/posterior calf 3.7mm with 1.6s reflux. Patent varicose vein mid/med calf 2.4mm with 0s reflux. LEFT LOWER EXTREMITY: Saphenofemoral Junction Reflux: Yes 10.2 mm 1.3 sec GSV: Diam (mm) Reflux/Time (sec) Proximal Thigh 5.5 Yes 1.3 Mid Thigh 5.3 Yes 1.7 Distal Thigh 4.9 Yes 1.1 Prox Calf 2.8 No Mid Calf 2.4 No Saphenopopliteal Junction Relux: 4.1 mm No SSV: Proximal Calf 4.1 No Mid Calf 3.2 No AASV: Proximal Thigh 1.4 No Mid Thigh No Distal Thigh Thrombi: No acute or chronic thrombus visualized Compressibility: Normal Flow: Normal Motel Maid: Dist/med calf 3.2mm with 0s reflux. Tech Note: Incompetent GSV. Patent varicose vein mid/med calf 3.3mm with 1.2s reflux. Patent varicose vein prox/med calf 3.5m with 0.9s reflux. CONCLUSION: 1. Abnormally dilated and incompetent right great saphenous, left great saphenous, and right small saphenous veins along with associated incompetent branch saphenous varicosities. Dictated by: David Quevedo M.D. on 09/02/2024 at 10:05 Approved by: David Quevedo M.D. on 09/02/2024 at 10:42
[2024-09-02 09:11] VITALS: BP 109/77; PULSE 63; O2SAT 98; BMI 28.0
--- OUTSIDE RECORDS SUMMARY | 2024-09-02 09:21 | XMS_ITS | CCD ---
Author Organization [facility] Care Team Providers Care Roll Filler Name Role Phone None, No PCP Unavailable [...] Allergy 2 Swelling of the Eye [facility] Repository (1 source) Morphine Drug Allergy 2 [facility] Repository Medications Current Medications Medication Drug Class(es) [...] office Testingon 01-29-20 23 In office Testing [id number] Normal [facility] AMYLASEon 11-26-2021 Amylase [Catalytic activity/Vol] 53 U/L Normal 31-110 [facility] Comment on above: Performed By: #### T 7, LIPA, TSH, AMADOU, CMP #### [facility] [address] [address] [address] Krystle Heaton CBC AUTO DIFFon 11-26-2021 BASO # 0.0 103/ul Normal 0.0-0.1 [facility] Comment on above: Performed By: #### F ERR #### [facility] [address] [address] [address] Krystle Heaton Basophils/100 WBC (Bld) 0.6 % Normal 0.2-2.0 [facility] Comment on above: Performed By: #### F ERR #### [facility] [address] [address] [address] Krystle Heaton EO # 0.1 103/ul Normal 0.0-0.7 [facility] Comment on above: Performed By: #### F ERR #### [facility] [address] [address] [address] Krystle Heaton Eosinophils/100 WBC (Bld) 2.7 % Normal 0.9-7.0 [facility] Comment on above: Performed By: #### F ERR #### [facility] [address] [place] [address] Dr. Krystle Heaton Erythrocyte distribution width (RBC) [Ratio] 16.0 % Critically high 11.0-15.0 [facility] Comment on above: Performed By: #### F ERR #### [facility] [address] [place] [address] Dr. Krystle Heaton Hematocrit (Bld) [Volume fraction] 42.8 % Normal 42.0-54.0 [facility] Comment on above: Performed By: #### F ERR #### [facility] [address] [place] [address] Dr. Krystle Heaton Hemoglobin (Bld) [Mass/Vol] 13.0 g/dL Critically low 14.0-18.0 [facility] Comment on above: Performed By: #### F ERR #### [facility] [address] [place] [address] Dr. Krystle Heaton IG # 0.02 10e3/ul Normal 0.00-0.03 [facility] Comment on above: Performed By: #### F ERR #### [facility] [address] [place] [address] Dr. Krystle Heaton IG % 0.4 % Normal 0.0-0.5 [facility] Comment on above: Performed By: #### F ERR #### [facility] [address] [address] [address] Krystle Heaton LYMPH # 0.9 103/ul Critically low 1.2-3.8 [facility] Comment on above: Performed By: #### F ERR #### [facility] [address] [address] [address] Krystle Heaton Lymphocytes/100 WBC (Bld) 19.1 % Critically low 20.5-60.0 [facility] Comment on above: Performed By: #### F ERR #### [facility] [address] [place] [address] Dr. Krystle Heaton MANUAL DIFF REQ NO Normal [facility] Comment on above: Performed By: #### F ERR #### [facility] [address] [place] [address] Dr. Krystle Heaton MCH (RBC) [Entitic mass] 27.7 pg Normal 25.9-34.0 [facility] Comment on above: Performed By: #### F ERR #### [facility] [address] [place] [address] Dr. Krystle Heaton MCHC (RBC) [Mass/Vol] 30.4 g/dL Normal 29.9-35.2 [facility] Comment on above: Performed By: #### F ERR #### [facility] [address] [place] [address] Dr. Krystle Heaton MCV (RBC) [Entitic vol] 91.1 fL Normal 80.0-94.0 [facility] Comment on above: Performed By: #### F ERR #### [facility] [address] [place] [address] Dr. Krystle Heaton MONO # 0.5 103/ul Normal 0.3-0.8 [facility] Comment on above: Performed By: #### F ERR #### [facility] [address] [place] [address] Dr. Krystle Heaton Monocytes/100 WBC (Bld) 10.4 % Normal 1.7-12.0 [facility] Comment on above: Performed By: #### F ERR #### [facility] [address] [address] [address] Krystle Heaton NEUT # 3.2 103/ul Normal 1.4-6.5 [facility] Comment on above: Performed By: #### F ERR #### [facility] [address] [place] [address] Dr. Krystle Heaton Neutrophils/100 WBC (Bld) 66.8 % Normal 43.0-75.0 [facility] Comment on above: Performed By: #### F ERR #### [facility] [address] [place] [address] Dr. Krystle Heaton Platelet mean volume (Bld) [Entitic vol] 11.3 fL Normal 9.5-13.5 [facility] Comment on above: Performed By: #### F ERR #### [facility] [address] [place] [address] Dr. Krystle Heaton PLT 177 103/ul Normal 150-450 [facility] Comment on above: Performed By: #### F ERR #### [facility] [address] [place] [address] Dr. Krystle Heaton RBC 4.70 106/ul Normal 4.70-6.10 [facility] Comment on above: Performed By: #### F ERR #### [facility] [address] [place] [address] Dr. Krystle Heaton WBC 4.8 103/ul Normal 4.0-11.0 [facility] Comment on above: Performed By: #### F ERR #### [facility] [address] [place] [address] Dr. Krystle Heaton FERRITINon 11-26-2021 Ferritin [Mass/Vol] 63.0 ng/mL Normal 17.9-464.0 [facility] Comment on above: Performed By: #### C BC #### [facility] [address] [place] [address] Billy Deanen FREE THYROXINE INDEX T7on FTI 2.14 Normal [facility] Comment on above: Performed By: #### T 7, LIPA, TSH, AMADOU, CMP #### [facility] [address] [place] [address] Dr. Krystle Heaton T3U 34.0 % Normal 23.5-40.5 [facility] Comment on above: Performed By: #### T 7, LIPA, TSH, AMADOU, CMP #### [facility] [address] [place] [address] Dr. Krystle Heaton T4 [Mass/Vol] 6.30 ug/dL Normal 5.53-11.00 [facility] [place] Comment on above: Performed By: #### T 7, LIPA, TSH, AMADOU, CMP #### [facility] [address] [place] [address] Dr. Krystle Heaton LIPASEon 11-26-2021 Lipase [Catalytic activity/Vol] 115.0 U/L Normal 23.0-300.0 [facility] Comment on above: Performed By: #### T 7, LIPA, TSH, AMADOU, CMP #### [facility] [address] [place] [address] Dr. Krystle Heaton PROF 14(COMP METB)on 022 Albumin [Mass/Vol] 3.6 g/dL Normal 3.5-5.0 [facility] Comment on above: Performed By: #### T 7, LIPA, TSH, AMADOU, CMP #### [facility] [address] [place] [address] Dr. Krystle Heaton Albumin/Globulin [Mass ratio] 0.9 {ratio} Normal [facility] Comment on above: Performed By: #### T 7, LIPA, TSH, AMADOU, CMP #### [facility] [address] [place] [address] Dr. Krystle Heaton ALP [Catalytic activity/Vol] 94 U/L Normal 38-126 [facility] Comment on above: Performed By: #### T 7, LIPA, TSH, AMADOU, CMP #### [facility] [address] [place] [address] Dr. Krystle Heaton ALT [Catalytic activity/Vol] 103 U/L Critically high 21-72 [facility] Comment on above: Performed By: #### T 7, LIPA, TSH, AMADOU, CMP #### [facility] [address] [place] [address] Dr. Krystle Heaton Anion gap [Moles/Vol] 12.8 mmol/L Normal [facility] Comment on above: Performed By: #### T 7, LIPA, TSH, AMADOU, CMP #### [facility] [address] [place] [address] Dr. Krystle Heaton AST [Catalytic activity/Vol] 148 U/L Critically high 17-59 [facility] Comment on above: Performed By: #### T 7, LIPA, TSH, AMADOU, CMP #### [facility] [address] [address] [address] Krystle Heaton Bilirubin [Mass/Vol] 1.2 mg/dL Normal 0.2-1.3 [facility] Comment on above: Performed By: #### T 7, LIPA, TSH, AMADOU, CMP #### [facility] [address] [place] [address] Dr. Krystle Heaton Calcium [Mass/Vol] 9.1 mg/dL Normal 8.4-10.2 The [facility] Comment on above: Performed By: #### T 7, LIPA, TSH, AMADOU, CMP #### [facility] [address] [place] [address] Dr. Krystle Heaton Chloride [Moles/Vol] 100 mmol/L Normal 98-107 [facility] Comment on above: Performed By: #### T 7, LIPA, TSH, AMADOU, CMP #### [facility] [address] [place] [address] Dr. Krystle Heaton CO2 [Moles/Vol] 26.7 mmol/L Normal 22.0-30.0 The [facility] Comment on above: Performed By: #### T 7, LIPA, TSH, AMADOU, CMP #### [facility] [address] [place] [address] Dr. Krystle Heaton Creatinine [Mass/Vol] 0.94 mg/dL Normal 0.66-1.25 [facility] Comment on above: Performed By: #### T 7, LIPA, TSH, AMADOU, CMP #### [facility] [address] [place] [address] Dr. Krystle Heaton EGFR-AF FRENCH >60 Normal >=60 [facility] Comment on above: Performed By: #### T 7, LIPA, TSH, AMADOU, CMP #### [facility] [address] [address] [address] Krystle Heaton EGFR-NON AF FRENCH >60 Normal >=60 [facility] Comment on above: Performed By: #### T 7, LIPA, TSH, AMADOU, CMP #### [facility] [address] [address] [address] Krystle Heaton Globulin (S) [Mass/Vol] 4.0 g/dL Normal [facility] Comment on above: Performed By: #### T 7, LIPA, TSH, AMADOU, CMP #### [facility] [address] [address] [address] Krystle Heaton Glucose [Mass/Vol] 112 mg/dL Critically high 74-[address] [facility] Comment on above: Performed By: #### T 7, LIPA, TSH, AMADOU, CMP #### [facility] [address] [address] [address] Krystle Heaton Potassium [Moles/Vol] 4.5 mmol/L Normal 3.4-5.0 [facility] Comment on above: Performed By: #### T 7, LIPA, TSH, AMADOU, CMP #### [facility] [address] [address] [address] Krystle Heaton Protein [Mass/Vol] 7.6 g/dL Normal 6.1-8.2 [facility] Comment on above: Performed By: #### T 7, LIPA, TSH, AMADOU, CMP #### [facility] [address] [address] [address] Krystle Heaton Sodium [Moles/Vol] 135 mmol/L Critically low 137-145 [facility] Comment on above: Performed By: #### T 7, LIPA, TSH, AMADOU, CMP #### [facility] [address] [address] [address] Krystle Heaton Urea nitrogen [Mass/Vol] 5.0 mg/dL Critically low 9.0-20.0 [facility] Comment on above: Performed By: #### T 7, LIPA, TSH, AMADOU, CMP #### [facility] [address] [place] [address] Dr. Krystle Heaton Urea nitrogen/Creatinine [Mass ratio] 5.3 mg/mg Normal [facility] Comment on above: Performed By: #### T 7, LIPA, TSH, AMADOU, CMP #### [facility] [address] [address] [address] Krystle Heaton TSHon 11-26-2021 TSH 1.842 uIU/mL Normal 0.470-4.680 [facility] [place] Comment on above: Performed By: #### T 7, LIPA, TSH, AMADOU, CMP #### [facility] [address] [place] [address] Dr. Krystle Heaton TSH RANGE SEE BELOW Normal [facility] Comment on above: Result Comment: <0.3 4 UIU/ml HYPERTHYROID 0.34-5.60 UIU/ml EUTHYROID >5.60 UIU/ml HYPOTHYROID Performed By: #### T 7, LIPA, TSH, AMADOU, CMP #### [facility] [address] [place] [address] Dr. Krystle Heaton [facility] SARS-CoV-2 (COVID-19) RNA JIMBO+probe Ql (Unsp spec) Not detected Normal NOT DETECTED [facility] Comment on above: Result Comment: This test is not yet approved or cleared by the [place] FDA. When there are no FDA-approved or cleared tests available, and other criteria are met, FDA can make tests available under an emergency access mechanism called an Emergency Use Authorization (EUA). The EUA for this test is supported by the [place] of Health and Human Service's (HHS's) declaration [...] SARS-CoV-2. Performed By: #### F ERR #### [facility] [address] [place] [address] Dr. Krystle Heaton CBC AUTO DIFFon 10-08-2021 BASO # 0.0 103/ul Normal 0.0-0.1 [facility] Comment on above: Performed By: #### T 7, LIPA, TSH, AMADOU, CMP #### [facility] [address] [place] [address] Dr. Krystle Heaton Basophils/100 WBC (Bld) 0.7 % Normal 0.2-2.0 [facility] Comment on above: Performed By: #### T 7, LIPA, TSH, AMADOU, CMP #### [facility] [address] [place] [address] Dr. Krystle Heaton EO # 0.2 103/ul Normal 0.0-0.7 [facility] Comment on above: Performed By: #### T 7, LIPA, TSH, AMADOU, CMP #### [facility] [address] [place] [address] Dr. Krystle Heaton Eosinophils/100 WBC (Bld) 3.6 % Normal 0.9-7.0 [facility] Comment on above: Performed By: #### T 7, LIPA, TSH, AMADOU, CMP #### [facility] [address] [place] [address] Dr. Krystle Heaton Erythrocyte distribution width (RBC) [Ratio] 16.0 % Critically high 11.0-15.0 [facility] Comment on above: Performed By: #### T 7, LIPA, TSH, AMADOU, CMP #### [facility] [address] [place] [address] Dr. Krystle Heaton Hematocrit (Bld) [Volume fraction] 38.7 % Critically low 42.0-54.0 [facility] Comment on above: Performed By: #### T 7, LIPA, TSH, AMADOU, CMP #### [facility] [address] [place] [address] Dr. Krystle Heaton Hemoglobin (Bld) [Mass/Vol] 11.7 g/dL Critically low 14.0-18.0 [facility] Comment on above: Performed By: #### T 7, LIPA, TSH, AMADOU, CMP #### [facility] [address] [place] [address] Dr. Krystle Heaton IG # 0.01 10e3/ul Normal 0.00-0.03 [facility] Comment on above: Performed By: #### T 7, LIPA, TSH, AMADOU, CMP #### [facility] [address] [place] [address] Dr. Krystle Heaton IG % 0.2 % Normal 0.0-0.5 [facility] Comment on above: Performed By: #### T 7, LIPA, TSH, AMADOU, CMP #### [facility] [address] [place] [address] Dr. Krystle Heaton LYMPH # 1.6 103/ul Normal 1.2-3.8 [facility] Comment on above: Performed By: #### T 7, LIPA, TSH, AMADOU, CMP #### [facility] [address] [place] [address] Dr. Krystle Heaton Lymphocytes/100 WBC (Bld) 29.2 % Normal 20.5-60.0 [facility] Comment on above: Performed By: #### T 7, LIPA, TSH, AMADOU, CMP #### [facility] [address] [place] [address] Dr. Krystle Heaton MANUAL DIFF REQ NO Normal [facility] Comment on above: Performed By: #### T 7, LIPA, TSH, AMADOU, CMP #### [facility] [address] [place] [address] Dr. Krystle Heaton MCH (RBC) [Entitic mass] 27.7 pg Normal 25.9-34.0 [facility] Comment on above: Performed By: #### T 7, LIPA, TSH, AMADOU, CMP #### [facility] [address] [place] [address] Dr. Krystle Heaton MCHC (RBC) [Mass/Vol] 30.2 g/dL Normal 29.9-35.2 [facility] Comment on above: Performed By: #### T 7, LIPA, TSH, AMADOU, CMP #### [facility] [address] [place] [address] Dr. Krystle Heaton MCV (RBC) [Entitic vol] 91.5 fL Normal 80.0-94.0 [facility] Comment on above: Performed By: #### T 7, LIPA, TSH, AMADOU, CMP #### [facility] [address] [place] [address] Dr. Krystle Heaton MONO # 0.6 103/ul Normal 0.3-0.8 [facility] Comment on above: Performed By: #### T 7, LIPA, TSH, AMADOU, CMP #### [facility] [address] [place] [address] Dr. Krystle Heaton Monocytes/100 WBC (Bld) 10.5 % Normal 1.7-12.0 [facility] Comment on above: Performed By: #### T 7, LIPA, TSH, AMADOU, CMP #### [facility] [address] [place] [address] Dr. Krystle Heaton NEUT # 3.1 103/ul Normal 1.4-6.5 [facility] Comment on above: Performed By: #### T 7, LIPA, TSH, AMADOU, CMP #### [facility] [address] [place] [address] Dr. Krystle Heaton Neutrophils/100 WBC (Bld) 55.8 % Normal 43.0-75.0 [facility] Comment on above: Performed By: #### T 7, LIPA, TSH, AMADOU, CMP #### [facility] [address] [place] [address] Dr. Krystle Heaton Platelet mean volume (Bld) [Entitic vol] 10.9 fL Normal 9.5-13.5 [facility] Comment on above: Performed By: #### T 7, LIPA, TSH, AMADOU, CMP #### [facility] [address] [place] [address] Dr. Krystle Heaton PLT 214 103/ul Normal 150-450 [facility] Comment on above: Performed By: #### T 7, LIPA, TSH, AMADOU, CMP #### [facility] [address] [place] [address] Dr. Krystle Heaton RBC 4.23 106/ul Critically low 4.70-6.10 [facility] Comment on above: Performed By: #### T 7, LIPA, TSH, AMADOU, CMP #### [facility] [address] [place] [address] Dr. Krystle Heaton WBC 5.5 103/ul Normal 4.0-11.0 [facility] Comment on above: Performed By: #### T 7, LIPA, TSH, AMADOU, CMP #### [facility] [address] [place] [address] Dr. Krystle Heaton FERRITINon 10-08-2021 Ferritin [Mass/Vol] 59.0 ng/mL Normal 17.9-464.0 [facility] Comment on above: Performed By: #### T 7, LIPA, TSH, AMADOU, CMP #### [facility] [address] [place] [address] Dr. Krystle Heaton CBC AUTO DIFFon 09-10-2021 BASO # 0.0 103/ul Normal 0.0-0.1 [facility] Comment on above: Performed By: #### C BC #### [facility] [address] [place] [address] Billy Quita Basophils/100 WBC (Bld) 0.8 % Normal 0.2-2.0 [facility] Comment on above: Performed By: #### C BC #### [facility] [address] [place] [address] Billy Quita EO # 0.1 103/ul Normal 0.0-0.7 [facility] Comment on above: Performed By: #### C BC #### [facility] [address] [place] [address] Billy Quita Eosinophils/100 WBC (Bld) 3.5 % Normal 0.9-7.0 [facility] Comment on above: Performed By: #### C BC #### [facility] [address] [place] [address] Billycarrillo Devlin Erythrocyte distribution width (RBC) [Ratio] 16.7 % Critically high 11.0-15.0 [facility] Comment on above: Performed By: #### C BC #### [facility] [address] [place] [address] Billy Quita Hematocrit (Bld) [Volume fraction] 40.6 % Critically low 42.0-54.0 [facility] Comment on above: Performed By: #### C BC #### [facility] [address] [place] [address] Billy Quita Hemoglobin (Bld) [Mass/Vol] 12.4 g/dL Critically low 14.0-18.0 [facility] Comment on above: Performed By: #### C BC #### [facility] [address] [place] [address] Billy Quita IG # 0.01 10e3/ul Normal 0.00-0.03 [facility] Comment on above: Performed By: #### C BC #### [facility] [address] [place] [address] Billy Quita IG % 0.3 % Normal 0.0-0.5 [facility] Comment on above: Performed By: #### C BC #### [facility] [address] [place] [address] Billy Quita LYMPH # 1.5 103/ul Normal 1.2-3.8 [facility] Comment on above: Performed By: #### C BC #### [facility] [address] [place] [address] Billy Devlin Lymphocytes/100 WBC (Bld) 39.7 % Normal 20.5-60.0 [facility] Comment on above: Performed By: #### C BC #### [facility] [address] [place] [address] Billycarrillo Devlin MANUAL DIFF REQ NO Normal [facility] Comment on above: Performed By: #### C BC #### [facility] [address] [place], [place] [address] Billycarrillo Devlin MCH (RBC) [Entitic mass] 27.6 pg Normal 25.9-34.0 [facility] Comment on above: Performed By: #### C BC #### [facility] [address] [place] [id number] Billycarrillo Devlin MCHC (RBC) [Mass/Vol] 30.5 g/dL Normal 29.9-35.2 [facility] Comment on above: Performed By: #### C BC #### [facility] [address] [place], [place] [id number] Billy Quita MCV (RBC) [Entitic vol] 90.2 fL Normal 80.0-94.0 [facility] Comment on above: Performed By: #### C BC #### [facility] [address] [place] [address] Billy Quita MONO # 0.5 103/ul Normal 0.3-0.8 [facility] Comment on above: Performed By: #### C BC #### [facility] Laboratory [address] [place], [place] [id number] Billy Quita Monocytes/100 WBC (Bld) 13.3 % Critically high 1.7-12.0 [facility] Comment on above: Performed By: #### C BC #### [facility] Laboratory [address] [place], [place] [id number] Billycarrillo Deanen NEUT # 1.6 103/ul Normal 1.4-6.5 [facility] Comment on above: Performed By: #### C BC #### [facility] Laboratory [address] [place], [place] [id number] Billy Quita Neutrophils/100 WBC (Bld) 42.4 % Critically low 43.0-75.0 [facility] Comment on above: Performed By: #### C BC #### [facility] Laboratory [address] [place], [place] [id number] Billy Quita Platelet mean volume (Bld) [Entitic vol] 11.5 fL Normal 9.5-13.5 [facility] Comment on above: Performed By: #### C BC #### [facility] Laboratory [address] [place] [address] Billy Devlin PLT 136 103/ul Critically low 150-450 [facility] Comment on above: Performed By: #### C BC #### [facility] Laboratory [address] [place] [address] Billy Devlin RBC 4.50 106/ul Critically low 4.70-6.10 [facility] Comment on above: Performed By: #### C BC #### [facility] Laboratory [address] [place] [address] Billy Deanen WBC 3.7 103/ul Critically low 4.0-11.0 [facility] Comment on above: Performed By: #### C BC #### [facility] Laboratory [address] [place] [address] Billy Devlin FERRITINon 09-10-2021 Ferritin [Mass/Vol] 106.0 ng/mL Normal 17.9-464.0 [facility] Comment on above: Performed By: #### F ERR #### [facility] Laboratory [address] [place] [address] Dr. Krystle Heaton CBC AUTO DIFFon 08-15-2021 BASO # 0.0 103/ul Normal 0.0-0.1 [facility] Comment on above: Performed By: #### C BC #### [facility] Laboratory [address] [place] [address] Dr. Krystle Heaton Basophils/100 WBC (Bld) 0.8 % Normal 0.2-2.0 [facility] Comment on above: Performed By: #### C BC #### [facility] Laboratory [address] [place] [address] Dr. Krystle Heaton EO # 0.2 103/ul Normal 0.0-0.7 [facility] Comment on above: Performed By: #### C BC #### [facility] Laboratory [address] [place] [address] Dr. Krystle Heaton Eosinophils/100 WBC (Bld) 4.4 % Normal 0.9-7.0 [facility] Comment on above: Performed By: #### C BC #### [facility] Laboratory [address] [place] [address] Dr. Krystle Heaton Erythrocyte distribution width (RBC) [Ratio] 15.7 % Critically high 11.0-15.0 [facility] Comment on above: Performed By: #### C BC #### [facility] Laboratory [address] [place] [address] Dr. Krystle Heaton Hematocrit (Bld) [Volume fraction] 39.4 % Critically low 42.0-54.0 [facility] Comment on above: Performed By: #### C BC #### [facility] Laboratory [address] [place] [address] Dr. Krystle Heaton Hemoglobin (Bld) [Mass/Vol] 12.2 g/dL Critically low 14.0-18.0 [facility] Comment on above: Performed By: #### C BC #### [facility] Laboratory [address] [place] [address] Dr. Krystle Heaton IG # 0.01 10e3/ul Normal 0.00-0.03 [facility] Comment on above: Performed By: #### C BC #### [facility] Laboratory [address] [place] [address] Dr. Krystle Heaton IG % 0.2 % Normal 0.0-0.5 [facility] Comment on above: Performed By: #### C BC #### [facility] Laboratory [address] [place] [address] Dr. Krystle Heaton LYMPH # 1.5 103/ul Normal 1.2-3.8 [facility] Comment on above: Performed By: #### C BC #### [facility] Laboratory [address] [place] [address] Dr. Krystle Heaton Lymphocytes/100 WBC (Bld) 32.2 % Normal 20.5-60.0 [facility] Comment on above: Performed By: #### C BC #### [facility] Laboratory [address] [place] [address] Dr. Krystle Heaton MANUAL DIFF REQ NO Normal [facility] Comment on above: Performed By: #### C BC #### [facility] Laboratory [address] [address] [address] Krystle Heaton MCH (RBC) [Entitic mass] 27.4 pg Normal 25.9-34.0 [facility] Comment on above: Performed By: #### C BC #### [facility] Laboratory [address] [place] [address] Dr. Krystle Heaton MCHC (RBC) [Mass/Vol] 31.0 g/dL Normal 29.9-35.2 [facility] Comment on above: Performed By: #### C BC #### [facility] Laboratory [address] [place] [address] Dr. Krystle Heaton MCV (RBC) [Entitic vol] 88.5 fL Normal 80.0-94.0 [facility] Comment on above: Performed By: #### C BC #### [facility] Laboratory [address] [place] [address] Dr. Krystle Heaton MONO # 0.6 103/ul Normal 0.3-0.8 [facility] Comment on above: Performed By: #### C BC #### [facility] Laboratory [address] [place] [address] Dr. Krystle Heaton Monocytes/100 WBC (Bld) 11.7 % Normal 1.7-12.0 [facility] Comment on above: Performed By: #### C BC #### [facility] Laboratory [address] [place] [address] Dr. Krystle Heaton NEUT # 2.4 103/ul Normal 1.4-6.5 [facility] Comment on above: Performed By: #### C BC #### [facility] Laboratory [address] [place] [address] Dr. Krystle Heaton Neutrophils/100 WBC (Bld) 50.7 % Normal 43.0-75.0 [facility] Comment on above: Performed By: #### C BC #### [facility] Laboratory [address] [place] [address] Dr. Krystle Heaton Platelet mean volume (Bld) [Entitic vol] 11.4 fL Normal 9.5-13.5 [facility] Comment on above: Performed By: #### C BC #### [facility] Laboratory [address] [address] [address] Krystle Heaton PLT 169 103/ul Normal 150-450 [facility] Comment on above: Performed By: #### C BC #### [facility] Laboratory [address] [address] [address] Krystle Heaton RBC 4.45 106/ul Critically low 4.70-6.10 [facility] Comment on above: Performed By: #### C BC #### [facility] Laboratory [address] [address] [address] Krystle Heaton WBC 4.8 103/ul Normal 4.0-11.0 [facility] Comment on above: Performed By: #### C BC #### [facility] Laboratory [address] [address] [address] Krystle Heaton FERRITINon 08-15-2021 Ferritin [Mass/Vol] 103.0 ng/mL Normal 17.9-464.0 [facility] Comment on above: Performed By: #### T 7, LIPA, TSH, AMADOU, CMP #### [facility] Laboratory [address] [address] [address] Krystle Heaton No Panel Informationon 07-31 Name ANGIE FRITZ Pathologist: COLLETTE DOTSON MD Date of Procedure: 07/31/2021 [facility] Work Phone: Radiologyon 07-31-2021 [place] Guidance for fine needle aspiration of Liver Normal -[facility] [address] [facility] Work Phone: [facility] Surgical Pathology Depar tmenton 07-31-2021 [facility] Surgical Pathology Department Name ANGIE FRITZ Pathologist: [...] toto in 2 cassettes A1 and A2. [facility]/07/31/2021 The assays/tests were performed with appropriate positive and negative controls which stained appropriately. [facility] Department of Pathology [address] [place] [address] Normal [facility] Comment on above: Performed By: #### U [facility] #### [facility] Surgical Pathology Department [address] [place] [address] US BIOPSY LIVER PERon 2020 US BIOPSY LIVER PER Patient Name: ANGIE FRITZ STUDY: US BIOPSY LIVER PER; 07/31/2021 1:03 pm PROCEDURE: ULTRASOUND GUIDED NON TARGETED RANDOM BIOPSY OF THE LIVER INDICATION: Hemochromatosis; here for tissue diagnosis COMPARISON: CT-guided liver biopsy 05/08/2021. ACCESSION NUMBER(S): [id number] ORDERING CLINICIAN: ENOCH HERRMANN SURGICAL DENTAL ASSISTANT: Dr. Roland (attending) Dee Lopes MD MEDICATIONS: [...] as stated. This study was interpreted at [place], [place]. Electronically signed by: SANDY ROLAND MD Normal [facility] CBC AUTO DIFFon 07-28-2021 BASO # 0.0 103/ul Normal 0.0-0.1 [facility] Comment on above: Performed By: #### T 7, LIPA, TSH, AMADOU, CMP #### [facility] Laboratory [address] [address] [address] Krystle Heaton Basophils/100 WBC (Bld) 0.6 % Normal 0.2-2.0 [facility] Comment on above: Performed By: #### T 7, LIPA, TSH, AMADOU, CMP #### [facility] Laboratory [address] [address] [address] Krystle Heaton EO # 0.2 103/ul Normal 0.0-0.7 [facility] Comment on above: Performed By: #### T 7, LIPA, TSH, AMADOU, CMP #### [facility] Laboratory [address] [place] [address] Dr. Krystle Heaton Eosinophils/100 WBC (Bld) 3.6 % Normal 0.9-7.0 [facility] Comment on above: Performed By: #### T 7, LIPA, TSH, AMADOU, CMP #### [facility] Laboratory [address] [place] [address] Dr. Krystle Heaton Erythrocyte distribution width (RBC) [Ratio] 14.7 % Normal 11.0-15.0 [facility] Comment on above: Performed By: #### T 7, LIPA, TSH, AMADOU, CMP #### [facility] Laboratory [address] [place] [address] Dr. Krystle Heaton Hematocrit (Bld) [Volume fraction] 37.4 % Critically low 42.0-54.0 [facility] Comment on above: Performed By: #### T 7, LIPA, TSH, AMADUO, CMP #### [facility] Laboratory [address] [place] [address] Dr. Krystle Heaton Hemoglobin (Bld) [Mass/Vol] 11.5 g/dL Critically low 14.0-18.0 [facility] Comment on above: Performed By: #### T 7, LIPA, TSH, AMADOU, CMP #### [facility] Laboratory [address] [place] [address] Dr. Krystle Heaton IG # 0.02 10e3/ul Normal 0.00-0.03 [facility] Comment on above: Performed By: #### T 7, LIPA, TSH, AMADOU, CMP #### [facility] Laboratory [address] [place] [address] Dr. Krystle Heaton IG % 0.4 % Normal 0.0-0.5 [facility] Comment on above: Performed By: #### T 7, LIPA, TSH, AMADOU, CMP #### [facility] Laboratory [address] [place] [address] Dr. Krystle Heaton LYMPH # 1.5 103/ul Normal 1.2-3.8 The [facility] Comment on above: Performed By: #### T 7, LIPA, TSH, AMADOU, CMP #### [facility] Laboratory [address] [place] [address] Dr. Krystle Heaton Lymphocytes/100 WBC (Bld) 31.3 % Normal 20.5-60.0 The [facility] Comment on above: Performed By: #### T 7, LIPA, TSH, AMADOU, CMP #### [facility] Laboratory [address] [place] [address] Dr. Krystle Heaton MANUAL DIFF REQ NO Normal [facility] Comment on above: Performed By: #### T 7, LIPA, TSH, AMADOU, CMP #### [facility] Laboratory [address] [place] [address] Dr. Krystle Heaton MCH (RBC) [Entitic mass] 27.8 pg Normal 25.9-34.0 The [facility] Comment on above: Performed By: #### T 7, LIPA, TSH, AMADOU, CMP #### [facility] Laboratory [address] [place] [address] Dr. Krystle Heaton MCHC (RBC) [Mass/Vol] 30.7 g/dL Normal 29.9-35.2 [facility] Comment on above: Performed By: #### T 7, LIPA, TSH, AMADOU, CMP #### [facility] Laboratory [address] [place] [address] Dr. Krystle Heaton MCV (RBC) [Entitic vol] 90.6 fL Normal 80.0-94.0 [facility] Comment on above: Performed By: #### T 7, LIPA, TSH, AMADOU, CMP #### [facility] Laboratory [address] [place] [address] Dr. Krystle Heaton MONO # 0.6 103/ul Normal 0.3-0.8 [facility] Comment on above: Performed By: #### T 7, LIPA, TSH, AMADOU, CMP #### [facility] Laboratory [address] [place] [address] Dr. Krystle Heaton Monocytes/100 WBC (Bld) 12.8 % Critically high 1.7-12.0 [facility] Comment on above: Performed By: #### T 7, LIPA, TSH, AMADOU, CMP #### [facility] Laboratory [address] [place] [address] Dr. Krystle Heaton NEUT # 2.4 103/ul Normal 1.4-6.5 [facility] Comment on above: Performed By: #### T 7, LIPA, TSH, AMADOU, CMP #### [facility] Laboratory [address] [place] [address] Dr. Krystle Heaton Neutrophils/100 WBC (Bld) 51.3 % Normal 43.0-75.0 [facility] Comment on above: Performed By: #### T 7, LIPA, TSH, AMADOU, CMP #### [facility] Laboratory [address] [place] [address] Dr. Krystle Heaton Platelet mean volume (Bld) [Entitic vol] 11.4 fL Normal 9.5-13.5 [facility] Comment on above: Performed By: #### T 7, LIPA, TSH, AMADOU, CMP #### [facility] Laboratory [address] [place] [address] Dr. Krystle Heaton PLT 190 103/ul Normal 150-450 [facility] Comment on above: Performed By: #### T 7, LIPA, TSH, AMADOU, CMP #### [facility] Laboratory [address] [place] [address] Dr. Krystle Heaton RBC 4.13 106/ul Critically low 4.70-6.10 [facility] Comment on above: Performed By: #### T 7, LIPA, TSH, AMADOU, CMP #### [facility] Laboratory [address] [place] [address] Dr. Krystle Heaton WBC 4.7 103/ul Normal 4.0-11.0 [facility] Comment on above: Performed By: #### T 7, LIPA, TSH, AMADOU, CMP #### [facility] Laboratory [address] [place] [address] Dr. Krystle Heaton PROTIMEon 07-28-2021 INR Coag (PPP) [Relative time] 1.00 {INR} Normal [facility] Comment on above: Performed By: #### H BSANS #### [facility] Laboratory [address] [place] [address] Billy Devlin INR GUIDELINES SEE BELOW Normal [facility] Comment on above: Result Comment: MOUNA RED INR: 2.0 - 3.0 CONDITIONS NOT LISTED BELOW 2.5 - 3.5 FOR PROSTHETIC HEART VALVE REPLACEMENT 2.5 - 3.5 RECURRENT THROMBOSIS Performed By: #### H ANJUMNS #### [facility] Laboratory [address] [place] [address] Billy Devlin PT Coag (PPP) [Time] 10.8 s Normal 9.0-11.6 [facility] Comment on above: Performed By: #### H BSASUZANNE #### [facility] Laboratory [address] [place] [address] Billy Devlin CBC AUTO DIFFon 07-09-2021 BASO # 0.0 103/ul Normal 0.0-0.1 [facility] Comment on above: Performed By: #### T 7, LIPA, TSH, AMADOU, CMP #### [facility] Laboratory [address] [place] [address] Dr. Krystle Heaton Basophils/100 WBC (Bld) 0.4 % Normal 0.2-2.0 [facility] Comment on above: Performed By: #### T 7, LIPA, TSH, AMADOU, CMP #### [facility] Laboratory [address] [place] [address] Dr. Krystle Heaton EO # 0.2 103/ul Normal 0.0-0.7 [facility] Comment on above: Performed By: #### T 7, LIPA, TSH, AMADOU, CMP #### [facility] Laboratory [address] [place] [address] Dr. Krystle Heaton Eosinophils/100 WBC (Bld) 2.9 % Normal 0.9-7.0 [facility] Comment on above: Performed By: #### T 7, LIPA, TSH, AMADOU, CMP #### [facility] Laboratory [address] [place] [address] Dr. Krystle Heaton Erythrocyte distribution width (RBC) [Ratio] 13.9 % Normal 11.0-15.0 [facility] Comment on above: Performed By: #### T 7, LIPA, TSH, AMADOU, CMP #### [facility] Laboratory [address] [place] [address] Dr. Krystle Heaton Hematocrit (Bld) [Volume fraction] 40.4 % Critically low 42.0-54.0 [facility] Comment on above: Performed By: #### T 7, LIPA, TSH, AMADOU, CMP #### [facility] Laboratory [address] [place] [address] Dr. Krystle Heaton Hemoglobin (Bld) [Mass/Vol] 12.3 g/dL Critically low 14.0-18.0 [facility] Comment on above: Performed By: #### T 7, LIPA, TSH, AMADOU, CMP #### [facility] Laboratory [address] [place] [address] Dr. Krystle Heaton IG # 0.03 10e3/ul Normal 0.00-0.03 [facility] Comment on above: Performed By: #### T 7, LIPA, TSH, AMADOU, CMP #### [facility] Laboratory [address] [place] [address] Dr. Krystle Heaton IG % 0.6 % Critically high 0.0-0.5 [facility] Comment on above: Performed By: #### T 7, LIPA, TSH, AMADOU, CMP #### [facility] Laboratory [address] [place] [address] Dr. Krystle eHaton LYMPH # 1.5 103/ul Normal 1.2-3.8 [facility] Comment on above: Performed By: #### T 7, LIPA, TSH, AMADOU, CMP #### [facility] Laboratory [address] [place] [address] Dr. Krystle Heaton Lymphocytes/100 WBC (Bld) 28.3 % Normal 20.5-60.0 [facility] Comment on above: Performed By: #### T 7, LIPA, TSH, AMADOU, CMP #### [facility] Laboratory [address] [place] [address] Dr. Krystle Heaton MANUAL DIFF REQ NO Normal [facility] Comment on above: Performed By: #### T 7, LIPA, TSH, AMADOU, CMP #### [facility] Laboratory [address] [place] [address] Dr. Krystle Heaton MCH (RBC) [Entitic mass] 28.3 pg Normal 25.9-34.0 [facility] Comment on above: Performed By: #### T 7, LIPA, TSH, AMADOU, CMP #### [facility] Laboratory [address] [place] [address] Dr. Krystle Heaton MCHC (RBC) [Mass/Vol] 30.4 g/dL Normal 29.9-35.2 [facility] Comment on above: Performed By: #### T 7, LIPA, TSH, AMADOU, CMP #### [facility] Laboratory [address] [place] [address] Dr. Krystle Heaton MCV (RBC) [Entitic vol] 93.1 fL Normal 80.0-94.0 [facility] Comment on above: Performed By: #### T 7, LIPA, TSH, AMADOU, CMP #### [facility] Laboratory [address] [place] [address] Dr. Krystle Heaton MONO # 0.7 103/ul Normal 0.3-0.8 The [facility] Comment on above: Performed By: #### T 7, LIPA, TSH, AMADOU, CMP #### [facility] Laboratory [address] [place] [address] Dr. Krystle Heaton Monocytes/100 WBC (Bld) 13.4 % Critically high 1.7-12.0 [facility] Comment on above: Performed By: #### T 7, LIPA, TSH, AMADOU, CMP #### [facility] Laboratory [address] [place] [address] Dr. Krystle Heaton NEUT # 2.8 103/ul Normal 1.4-6.5 [facility] Comment on above: Performed By: #### T 7, LIPA, TSH, AMADOU, CMP #### [facility] Laboratory [address] [place] [address] Dr. Krystle Heaton Neutrophils/100 WBC (Bld) 54.4 % Normal 43.0-75.0 [facility] Comment on above: Performed By: #### T 7, LIPA, TSH, AMADOU, CMP #### [facility] Laboratory [address] [address] [address] Krystle Heaton Platelet mean volume (Bld) [Entitic vol] 11.7 fL Normal 9.5-13.5 [facility] Comment on above: Performed By: #### T 7, LIPA, TSH, AMADOU, CMP #### [facility] Laboratory [address] [place] [address] Dr. Krystle Heaton PLT 192 103/ul Normal 150-450 [facility] Comment on above: Performed By: #### T 7, LIPA, TSH, AMADOU, CMP #### [facility] Laboratory [address] [place] [address] Dr. Krystle Heaton RBC 4.34 106/ul Critically low 4.70-6.10 [facility] Comment on above: Performed By: #### T 7, LIPA, TSH, AMADOU, CMP #### [facility] Laboratory [address] [place] [address] Dr. Krystle Heaton WBC 5.2 103/ul Normal 4.0-11.0 [facility] Comment on above: Performed By: #### T 7, LIPA, TSH, AMADOU, CMP #### [facility] Laboratory [address] [place] [address] Dr. Krystle Heaton FERRITINon 07-09-2021 Ferritin [Mass/Vol] 122.0 ng/mL Normal 17.9-464.0 [facility] Comment on above: Performed By: #### T 7, LIPA, TSH, AMADOU, CMP #### [facility] Laboratory [address] [place] [address] Dr. Krystle Heaton CBC AUTO DIFFon 06-11-2021 BASO # 0.0 103/ul Normal 0.0-0.1 [facility] Comment on above: Performed By: #### T 7, LIPA, TSH, AMADOU, CMP #### [facility] Laboratory [address] [place] [address] Dr. Krystle Heaton Basophils/100 WBC (Bld) 0.7 % Normal 0.2-2.0 [facility] Comment on above: Performed By: #### T 7, LIPA, TSH, AMADOU, CMP #### [facility] Laboratory [address] [place] [address] Dr. Krystle Heaton EO # 0.2 103/ul Normal 0.0-0.7 [facility] Comment on above: Performed By: #### T 7, LIPA, TSH, AMADOU, CMP #### [facility] Laboratory [address] [place] [address] Dr. Krystle Heaton Eosinophils/100 WBC (Bld) 3.9 % Normal 0.9-7.0 [facility] Comment on above: Performed By: #### T 7, LIPA, TSH, AMADOU, CMP #### [facility] Laboratory [address] [place] [address] Dr. Krystle Heaton Erythrocyte distribution width (RBC) [Ratio] 13.0 % Normal 11.0-15.0 [facility] Comment on above: Performed By: #### T 7, LIPA, TSH, AMADOU, CMP #### [facility] Laboratory [address] [place] [address] Dr. Krystle Heaton Hematocrit (Bld) [Volume fraction] 39.0 % Critically low 42.0-54.0 [facility] Comment on above: Performed By: #### T 7, LIPA, TSH, AMADOU, CMP #### [facility] Laboratory [address] [place] [address] Dr. Krystle Heaton Hemoglobin (Bld) [Mass/Vol] 12.4 g/dL Critically low 14.0-18.0 The [facility] [facility] Comment on above: Performed By: #### T 7, LIPA, TSH, AMADOU, CMP #### [facility] [address] [place] [address] Dr. Krystle Heaton IG # 0.01 10e3/ul Normal 0.00-0.03 [facility] Comment on above: Performed By: #### T 7, LIPA, TSH, AAMDOU, CMP #### [facility] [address] [place] [address] Dr. Krystle Heaton IG % 0.2 % Normal 0.0-0.5 The [facility] Comment on above: Performed By: #### T 7, LIPA, TSH, AMADOU, CMP #### [facility] [address] [place] [address] Dr. Krystle Heaton LYMPH # 1.0 103/ul Critically low 1.2-3.8 The [facility] Comment on above: Performed By: #### T 7, LIPA, TSH, AMADOU, CMP #### [facility] [address] [place] [address] Dr. Krystle Heaton Lymphocytes/100 WBC (Bld) 23.1 % Normal 20.5-60.0 The [facility] Comment on above: Performed By: #### T 7, LIPA, TSH, AMADOU, CMP #### [facility] [address] [place] [address] Dr. Krystle Heaton MANUAL DIFF REQ NO Normal [facility] Comment on above: Performed By: #### T 7, LIPA, TSH, AMADOU, CMP #### [facility] [address] [place] [address] Dr. Krystle Haeton MCH (RBC) [Entitic mass] 31.2 pg Normal 25.9-34.0 [facility] Comment on above: Performed By: #### T 7, LIPA, TSH, AMADOU, CMP #### [facility] [address] [place] [address] Dr. Krystle Heaton MCHC (RBC) [Mass/Vol] 31.8 g/dL Normal 29.9-35.2 The [facility] Comment on above: Performed By: #### T 7, LIPA, TSH, AMADOU, CMP #### [facility] [address] [place] [address] Dr. Krystle Heaton MCV (RBC) [Entitic vol] 98.2 fL Critically high 80.0-94.0 The [facility] Comment on above: Performed By: #### T 7, LIPA, TSH, AMADOU, CMP #### [facility] [address] [place] [address] Dr. Krystle Heaton MONO # 0.5 103/ul Normal 0.3-0.8 The [facility] Comment on above: Performed By: #### T 7, LIPA, TSH, AMADOU, CMP #### [facility] [address] [place] [address] Dr. Krystle Heaton Monocytes/100 WBC (Bld) 10.4 % Normal 1.7-12.0 [facility] Comment on above: Performed By: #### T 7, LIPA, TSH, AMADOU, CMP #### [facility] [address] [place] [address] Dr. Krystle Heaton NEUT # 2.7 103/ul Normal 1.4-6.5 The [facility] Comment on above: Performed By: #### T 7, LIPA, TSH, AMADOU, CMP #### [facility] [address] [place] [address] Dr. Krystle Heaton Neutrophils/100 WBC (Bld) 61.7 % Normal 43.0-75.0 The [facility] Comment on above: Performed By: #### T 7, LIPA, TSH, AMADOU, CMP #### [facility] [address] [place] [address] Dr. Krystle Heaton Platelet mean volume (Bld) [Entitic vol] 10.8 fL Normal 9.5-13.5 The [facility] Comment on above: Performed By: #### T 7, LIPA, TSH, AMADOU, CMP #### [facility] [address] [place] [address] Dr. Krystle Heaton PLT 197 103/ul Normal 150-450 The [facility] Comment on above: Performed By: #### T 7, LIPA, TSH, AMADOU, CMP #### [facility] [address] [place] [address] Dr. Krystle Heaton RBC 3.97 106/ul Critically low 4.70-6.10 [facility] Comment on above: Performed By: #### T 7, LIPA, TSH, AMADOU, CMP #### [facility] [address] [place] [address] Dr. Krystle Heaton WBC 4.3 103/ul Normal 4.0-11.0 The [facility] Comment on above: Performed By: #### T 7, LIPA, TSH, AMADOU, CMP #### [facility] [address] [place] [address] Dr. Krystle Heatno FERRITINon 06-11-2021 Ferritin [Mass/Vol] 107.0 ng/mL Normal 17.9-464.0 [facility] Comment on above: Performed By: #### T 7, LIPA, TSH, AMADOU, CMP #### [facility] [address] [place] [address] Dr. Krystle Heaton CBC AUTO DIFFon 05-28-2021 BASO # 0.0 103/ul Normal 0.0-0.1 The [facility] Comment on above: Performed By: #### T 7, LIPA, TSH, AMADOU, CMP #### [facility] [address] [place] [address] Dr. Krystle Heaton Basophils/100 WBC (Bld) 0.5 % Normal 0.2-2.0 [facility] Comment on above: Performed By: #### T 7, LIPA, TSH, AMADOU, CMP #### [facility] [address] [place] [address] Dr. Krystle Heaton EO # 0.1 103/ul Normal 0.0-0.7 The [facility] Comment on above: Performed By: #### T 7, LIPA, TSH, AMADOU, CMP #### [facility] [address] [place] [address] Dr. Krystle Heaton Eosinophils/100 WBC (Bld) 3.5 % Normal 0.9-7.0 The [facility] Comment on above: Performed By: #### T 7, LIPA, TSH, AMADOU, CMP #### [facility] [address] [place] [address] Dr. Krystle Heaton Erythrocyte distribution width (RBC) [Ratio] 12.6 % Normal 11.0-15.0 The [facility] Comment on above: Performed By: #### T 7, LIPA, TSH, AMADOU, CMP #### [facility] [address] [place] [address] Dr. Krystle Heaton Hematocrit (Bld) [Volume fraction] 39.8 % Critically low 42.0-54.0 [facility] Comment on above: Performed By: #### T 7, LIPA, TSH, AMADOU, CMP #### [facility] [address] [place] [address] Dr. Krystle Heaton Hemoglobin (Bld) [Mass/Vol] 12.5 g/dL Critically low 14.0-18.0 [facility] Comment on above: Performed By: #### T 7, LIPA, TSH, AMADOU, CMP #### [facility] [address] [place] [address] Dr. Krystle Heaton IG # 0.00 10e3/ul Normal 0.00-0.03 [facility] Comment on above: Performed By: #### T 7, LIPA, TSH, AMADOU, CMP #### [facility] [address] [place] [address] Dr. Krystle Heaton IG % 0.0 % Normal 0.0-0.5 [facility] Comment on above: Performed By: #### T 7, LIPA, TSH, AMADOU, CMP #### [facility] [address] [place] [address] Dr. Krystle Heaton LYMPH # 1.2 103/ul Normal 1.2-3.8 The [facility] Comment on above: Performed By: #### T 7, LIPA, TSH, AMADOU, CMP #### [facility] [address] [place] [address] Dr. Krystle Heaton Lymphocytes/100 WBC (Bld) 32.7 % Normal 20.5-60.0 [facility] Comment on above: Performed By: #### T 7, LIPA, TSH, AMADOU, CMP #### [facility] [address] [place] [address] Dr. Krystle Heaton MANUAL DIFF REQ NO Normal [facility] Comment on above: Performed By: #### T 7, LIPA, TSH, AMADOU, CMP #### [facility] [address] [place] [address] Dr. Krystle Heaton MCH (RBC) [Entitic mass] 32.1 pg Normal 25.9-34.0 [facility] Comment on above: Performed By: #### T 7, LIPA, TSH, AMADOU, CMP #### [facility] [address] [place] [address] Dr. Krystle Heaton MCHC (RBC) [Mass/Vol] 31.4 g/dL Normal 29.9-35.2 The [facility] Comment on above: Performed By: #### T 7, LIPA, TSH, AMADOU, CMP #### [facility] [address] [place] [address] Dr. Krystle Heaton MCV (RBC) [Entitic vol] 102.3 fL Critically high 80.0-94.0 The [facility] Comment on above: Performed By: #### T 7, LIPA, TSH, AMADOU, CMP #### [facility] [address] [place] [address] Dr. Krystle Heaton MONO # 0.4 103/ul Normal 0.3-0.8 The [facility] Comment on above: Performed By: #### T 7, LIPA, TSH, AMADOU, CMP #### [facility] [address] [place] [address] Dr. Krystle Heaton Monocytes/100 WBC (Bld) 10.5 % Normal 1.7-12.0 The [facility] Comment on above: Performed By: #### T 7, LIPA, TSH, AMADOU, CMP #### [facility] [address] [place] [address] Dr. Krystle Heaton NEUT # 2.0 103/ul Normal 1.4-6.5 The [facility] Comment on above: Performed By: #### T 7, LIPA, TSH, AMADOU, CMP #### [facility] [address] [place] [address] Dr. Krystle Heaton Neutrophils/100 WBC (Bld) 52.8 % Normal 43.0-75.0 The [facility] Comment on above: Performed By: #### T 7, LIPA, TSH, AMADOU, CMP #### [facility] [address] [place] [address] Dr. Krystle Heaton Platelet mean volume (Bld) [Entitic vol] 10.7 fL Normal 9.5-13.5 The [facility] Comment on above: Performed By: #### T 7, LIPA, TSH, AMADOU, CMP #### [facility] [address] [address] [address] Krystle Heaton PLT 227 103/ul Normal 150-450 The [facility] Comment on above: Performed By: #### T 7, LIPA, TSH, AMADOU, CMP #### [facility] [address] [address] [address] Krystle Heaton RBC 3.89 106/ul Critically low 4.70-6.10 [facility] Comment on above: Performed By: #### T 7, LIPA, TSH, AMADOU, CMP #### [facility] [address] [address] [address] Krystle Heaton WBC 3.7 103/ul Critically low 4.0-11.0 [facility] Comment on above: Performed By: #### T 7, LIPA, TSH, AMADOU, CMP #### [facility] [address] [place] [address] Dr. Krystle Heaton FERRITINon 05-28-2021 Ferritin [Mass/Vol] 169.0 ng/mL Normal 17.9-464.0 [facility] Comment on above: Performed By: #### F ERR #### [facility] [address] [place] [address] Dr. Krystle Heaton METHYLMALONIC ACID (MMA)on 0 05-18-2021 Disclaimer: Comment Normal [facility] Comment on above: Result Comment: This test was developed and its performance characteristics determined by [employer]. It has not been cleared or approved by the Food and Drug Administration. Performed By: #### T 7, LIPA, TSH, AMADOU, CMP #### [facility] [address] [place] [address] Dr. Krystle Heaton Methylmalonic Acid, Serum 124 nmol/L Normal 0-378 The [facility] Comment on above: Performed By: #### T 7, LIPA, TSH, AMADOU, CMP #### [facility] [address] [place] [address] Dr. Krystle Heaton HOMOCYSTEINEon 05-16-2021 Homocyst(e)ine, Plasma 19.5 umol/L Critically high 0.0-14.5 [facility] Comment on above: Performed By: #### T 7, LIPA, TSH, AMADOU, CMP #### [facility] [address] [place] [address] Dr. Krystle Heaton CBC AUTO DIFFon 05-15-2021 BASO # 0.0 103/ul Normal 0.0-0.1 The [facility] Comment on above: Performed By: #### T 7, LIPA, TSH, AMADOU, CMP #### [facility] [address] [place] [address] Dr. Krystle Heaton Basophils/100 WBC (Bld) 0.5 % Normal 0.2-2.0 The [facility] Comment on above: Performed By: #### T 7, LIPA, TSH, AMADOU, CMP #### [facility] [address] [place] [address] Dr. Krystle Heaton EO # 0.1 103/ul Normal 0.0-0.7 The [facility] Comment on above: Performed By: #### T 7, LIPA, TSH, AMADOU, CMP #### [facility] [address] [place] [address] Dr. Krystle Heaton Eosinophils/100 WBC (Bld) 1.8 % Normal 0.9-7.0 The [facility] Comment on above: Performed By: #### T 7, LIPA, TSH, AMADOU, CMP #### [facility] [address] [place] [address] Dr. Krystle Heaton Erythrocyte distribution width (RBC) [Ratio] 12.7 % Normal 11.0-15.0 The [facility] Comment on above: Performed By: #### T 7, LIPA, TSH, AMADOU, CMP #### [facility] [address] [place] [address] Dr. Krystle Heaton Hematocrit (Bld) [Volume fraction] 39.4 % Critically low 42.0-54.0 [facility] Comment on above: Performed By: #### T 7, LIPA, TSH, AMADOU, CMP #### [facility] [address] [place] [address] Dr. Krystle Heaton Hemoglobin (Bld) [Mass/Vol] 12.9 g/dL Critically low 14.0-18.0 [facility] Comment on above: Performed By: #### T 7, LIPA, TSH, AMADOU, CMP #### [facility] [address] [place] [address] Dr. Krystle Heaton IG # 0.02 10e3/ul Normal 0.00-0.03 The [facility] Comment on above: Performed By: #### T 7, LIPA, TSH, AMADOU, CMP #### [facility] [address] [place] [address] Dr. Krystle Heaton IG % 0.4 % Normal 0.0-0.5 The [facility] Comment on above: Performed By: #### T 7, LIPA, TSH, AMADOU, CMP #### [facility] [address] [place] [address] Dr. Krystle Heaton LYMPH # 1.4 103/ul Normal 1.2-3.8 The [facility] Comment on above: Performed By: #### T 7, LIPA, TSH, AMADOU, CMP #### [facility] [address] [place] [address] Dr. Krystle Heaton Lymphocytes/100 WBC (Bld) 24.9 % Normal 20.5-60.0 [facility] Comment on above: Performed By: #### T 7, LIPA, TSH, AMADOU, CMP #### [facility] [address] [place] [address] Dr. Krystle Heaton MANUAL DIFF REQ NO Normal [facility] Comment on above: Performed By: #### T 7, LIPA, TSH, AMADOU, CMP #### [facility] [address] [place] [address] Dr. Krystle Heaton MCH (RBC) [Entitic mass] 34.0 pg Normal 25.9-34.0 [facility] Comment on above: Performed By: #### T 7, LIPA, TSH, AMADOU, CMP #### [facility] [address] [place] [address] Dr. Krystle Heaton MCHC (RBC) [Mass/Vol] 32.7 g/dL Normal 29.9-35.2 The [facility] Comment on above: Performed By: #### T 7, LIPA, TSH, AMADOU, CMP #### [facility] [address] [place] [address] Dr. Krystle Heaton MCV (RBC) [Entitic vol] 104.0 fL Critically high 80.0-94.0 The [facility] Comment on above: Performed By: #### T 7, LIPA, TSH, AMADOU, CMP #### [facility] [address] [place] [address] Dr. Krystle Heaton MONO # 0.7 103/ul Normal 0.3-0.8 The [facility] Comment on above: Performed By: #### T 7, LIPA, TSH, AMADOU, CMP #### [facility] [address] [place] [address] Dr. Krystle Heaton Monocytes/100 WBC (Bld) 11.8 % Normal 1.7-12.0 The [facility] Comment on above: Performed By: #### T 7, LIPA, TSH, AMADOU, CMP #### [facility] [address] [place] [address] Dr. Krystle Heaton NEUT # 3.3 103/ul Normal 1.4-6.5 The [facility] Comment on above: Performed By: #### T 7, LIPA, TSH, AMADOU, CMP #### [facility] [address] [place] [address] Dr. Krystle Heaton Neutrophils/100 WBC (Bld) 60.6 % Normal 43.0-75.0 The [facility] Comment on above: Performed By: #### T 7, LIPA, TSH, AMADOU, CMP #### [facility] [address] [place] [address] Dr. Krystle Heaton Platelet mean volume (Bld) [Entitic vol] 10.2 fL Normal 9.5-13.5 The [facility] Comment on above: Performed By: #### T 7, LIPA, TSH, AMADOU, CMP #### [facility] [address] [place] [address] Dr. Krystle Heaton PLT 196 103/ul Normal 150-450 The [facility] Comment on above: Performed By: #### T 7, LIPA, TSH, AMADOU, CMP #### [facility] [address] [place] [address] Dr. Krystle Heaton RBC 3.79 106/ul Critically low 4.70-6.10 [facility] Comment on above: Performed By: #### T 7, LIPA, TSH, AMADOU, CMP #### [facility] [address] [place] [address] Dr. Krystle Heaton WBC 5.5 103/ul Normal 4.0-11.0 [facility] Comment on above: Performed By: #### T 7, LIPA, TSH, AMADOU, CMP #### [facility] [address] [place] [address] Dr. Krystle Heaton FERRITINon 05-15-2021 Ferritin [Mass/Vol] 302.0 ng/mL Normal 17.9-464.0 [facility] Comment on above: Performed By: #### C BC #### [facility] [address] [place] [address] Billy Devlin PROF 14(COMP METB)on 021 Albumin [Mass/Vol] 3.5 g/dL Normal 3.5-5.0 [facility] Comment on above: Performed By: #### C BC #### [facility] [address] [place], [place] [address] Billy Devlin Albumin/Globulin [Mass ratio] 1.0 {ratio} Normal The [facility] Comment on above: Performed By: #### C BC #### [facility] [address] [place], [place] [address] Billy Devlin ALP [Catalytic activity/Vol] 71 U/L Normal 38-126 The [facility] Comment on above: Performed By: #### C BC #### [facility] [address] [place], [place] [address] Billy Quita ALT [Catalytic activity/Vol] 40 U/L Normal 21-72 The [facility] Comment on above: Performed By: #### C BC #### [facility] [address] [place], [place] [address] Billy Quita Anion gap [Moles/Vol] 17.5 mmol/L Normal [facility] Comment on above: Performed By: #### C BC #### [facility] [address] [place], [place] [address] Billy Quita AST [Catalytic activity/Vol] 43 U/L Normal 17-59 [facility] Comment on above: Performed By: #### C BC #### [facility] [address] [place] [address] Billy Quita Bilirubin [Mass/Vol] 0.3 mg/dL Normal 0.2-1.3 The [facility] Comment on above: Performed By: #### C BC #### [facility] [address] [place] [address] Billy Quita Calcium [Mass/Vol] 8.8 mg/dL Normal 8.4-10.2 [facility] Comment on above: Performed By: #### C BC #### [facility] [address] [place] [address] Billy Quita Chloride [Moles/Vol] 101 mmol/L Normal 98-107 [facility] Comment on above: Performed By: #### C BC #### [facility] [address] [place] [address] Billy Quita CO2 [Moles/Vol] 26.6 mmol/L Normal 22.0-30.0 [facility] Comment on above: Performed By: #### C BC #### [facility] [address] [place] [address] Billy Quita Creatinine [Mass/Vol] 0.88 mg/dL Normal 0.66-1.25 [facility] Comment on above: Performed By: #### C BC #### [facility] [address] [place], [place] [address] Billy Quita EGFR-AF FRENCH >60 Normal >=60 [facility] Comment on above: Performed By: #### C BC #### [facility] [address] [place], [place] [address] Billy Quita EGFR-NON AF FRENCH >60 Normal >=60 The [facility] Comment on above: Performed By: #### C BC #### [facility] [address], [place] [address] Billy Quita Globulin (S) [Mass/Vol] 3.6 g/dL Normal [facility] Comment on above: Performed By: #### C BC #### [facility] [address], [place] [address] Billy Quita Glucose [Mass/Vol] 101 mg/dL Normal 74-106 [facility] Comment on above: Performed By: #### C BC #### [facility] [address], [place] [address] Billy Quita Potassium [Moles/Vol] 4.1 mmol/L Normal 3.4-5.0 [facility] Comment on above: Performed By: #### C BC #### [facility] [address], [place] [address] Billy Quita Protein [Mass/Vol] 7.1 g/dL Normal 6.1-8.2 [facility] Comment on above: Performed By: #### C BC #### [facility] [address], [place] [address] Billy Quita Sodium [Moles/Vol] 141 mmol/L Normal 137-145 [facility] Comment on above: Performed By: #### C BC #### [facility] [address], [place] [address] Billy Quita Urea nitrogen [Mass/Vol] 11.0 mg/dL Normal 9.0-20.0 The [facility] Comment on above: Performed By: #### C BC #### [facility] [address], [place] [address] Billy Quita Urea nitrogen/Creatinine [Mass ratio] 12.5 mg/mg Normal [facility] Comment on above: Performed By: #### C BC #### [facility] [address], [place] [address] Billy Quita IN BIOPSY LIVER PERCUTANEOUS NEEDLEon 05-08-2021 IN BIOPSY LIVER PERCUTANEOUS NEEDLE Patient Name: ANGIE FRITZ STUDY: IN BIOPSY LIVER PERCUTANEOUS NEEDLE; ; 05/08/2021 11:46 am INDICATION: None. COMPARISON: None. ACCESSION NUMBER(S): [id number] ORDERING CLINICIAN: ENOCH HERRMANN TECHNIQUE: CONSENT: The [...] and cap. Additionally, the performing physician and delivery driver assistant used maximum barrier technique to include [...] were made using an 18 gauge spring-loaded i[employer]Text core biopsy needle. Good core samples were [...] above Electronically signed by: URI BACON MD [facility] Order Reconciliationon 05-08 Order Reconciliation Page 1 [...] tab(s) orally 2 times a day Normal [facility] Surgical Pathology Depar tmenton 05-08-2021 [facility] Surgical Pathology Department Name ANGIE FRITZ Pathologist: SUSAN BLACK M.D., PhD. Date of Procedure: 05/08/2021 Date Received: 05/08/2021 Date Reported 05/11/2021 Submitting Physician: ENOCH HERRMANN MD Location: [facility] Copy To/Referring/Attending: URI BACON MD [...] positive and negative controls which stained appropriately. [facility] Department of Pathology [address] [place] [address] Normal [facility] Comment on above: Performed By: #### U HCS #### [facility] Surgical Pathology Department [address] [place] [address] CBC AUTO DIFFon 05-04-2021 BASO # 0.0 103/ul Normal 0.0-0.1 [facility] Comment on above: Performed By: #### F ERR #### [facility] [address] [place] [address] Dr. Krystle Heaton Basophils/100 WBC (Bld) 0.5 % Normal 0.2-2.0 [facility] Comment on above: Performed By: #### F ERR #### [facility] [address] [place] [address] Dr. Krystle Heaton EO # 0.1 103/ul Normal 0.0-0.7 [facility] Comment on above: Performed By: #### F ERR #### [facility] [address] [place] [address] Dr. Krystle Heaton Eosinophils/100 WBC (Bld) 2.5 % Normal 0.9-7.0 [facility] Comment on above: Performed By: #### F ERR #### [facility] [address] [place] [address] Dr. Krystle Heaton Erythrocyte distribution width (RBC) [Ratio] 12.5 % Normal 11.0-15.0 [facility] Comment on above: Performed By: #### F ERR #### [facility] [address] [place] [address] Dr. Krystle Heaton Hematocrit (Bld) [Volume fraction] 34.3 % Critically low 42.0-54.0 [facility] Comment on above: Performed By: #### F ERR #### [facility] [address] [place] [address] Dr. Krystle Heaton Hemoglobin (Bld) [Mass/Vol] 11.2 g/dL Critically low 14.0-18.0 [facility] Comment on above: Performed By: #### F ERR #### [facility] [address] [place] [address] Dr. Krystle Heaton IG # 0.01 10e3/ul Normal 0.00-0.03 [facility] Comment on above: Performed By: #### F ERR #### [facility] [address] [place] [address] Dr. Krystle Heaton IG % 0.3 % Normal 0.0-0.5 [facility] Comment on above: Performed By: #### F ERR #### [facility] [address] [place] [address] Dr. Krystle Heaton LYMPH # 1.3 103/ul Normal 1.2-3.8 [facility] Comment on above: Performed By: #### F ERR #### [facility] [address] [place] [address] Dr. Krystle Heaton Lymphocytes/100 WBC (Bld) 33.3 % Normal 20.5-60.0 [facility] Comment on above: Performed By: #### F ERR #### [facility] [address] [place] [address] Dr. Krystle Heaton MANUAL DIFF REQ NO Normal [facility] Comment on above: Performed By: #### F ERR #### [facility] [address] [place] [address] Dr. Krystle Heaton MCH (RBC) [Entitic mass] 35.6 pg Critically high 25.9-34.0 [facility] Comment on above: Performed By: #### F ERR #### [facility] [address] [place] [address] Dr. Krystle Heatno MCHC (RBC) [Mass/Vol] 32.7 g/dL Normal 29.9-35.2 [facility] Comment on above: Performed By: #### F ERR #### [facility] [address] [place] [address] Dr. Krystle Heaton MCV (RBC) [Entitic vol] 108.9 fL Critically high 80.0-94.0 [facility] Comment on above: Performed By: #### F ERR #### [facility] [address] [place] [address] Dr. Krystle Heaton MONO # 0.4 103/ul Normal 0.3-0.8 [facility] Comment on above: Performed By: #### F ERR #### [facility] [address] [place] [address] Dr. Krystle Heaton Monocytes/100 WBC (Bld) 10.0 % Normal 1.7-12.0 [facility] Comment on above: Performed By: #### F ERR #### [facility] [address] [place] [address] Dr. Krystle Heaton NEUT # 2.1 103/ul Normal 1.4-6.5 [facility] Comment on above: Performed By: #### F ERR #### [facility] [address] [place] [address] Dr. Krystle Heaton Neutrophils/100 WBC (Bld) 53.4 % Normal 43.0-75.0 [facility] Comment on above: Performed By: #### F ERR #### [facility] [address] [place] [address] Dr. Krystle Heaton Platelet mean volume (Bld) [Entitic vol] 10.7 fL Normal 9.5-13.5 [facility] Comment on above: Performed By: #### F ERR #### [facility] [address] [place] [address] Dr. Krystle Heaton PLT 174 103/ul Normal 150-450 [facility] Comment on above: Performed By: #### F ERR #### [facility] [address] [place] [address] Dr. Krystle Heaton RBC 3.15 106/ul Critically low 4.70-6.10 [facility] Comment on above: Result Comment: SLID E REVIEWED. 2+ MACROCYTOSIS SEEN Performed By: #### F ERR #### [facility] [address] [place] [address] Dr. Krystle Heaton WBC 4.0 103/ul Normal 4.0-11.0 [facility] Comment on above: Performed By: #### F ERR #### [facility] [address] [place] [address] Dr. Krystle Heaton FERRITINon 05-04-2021 Ferritin [Mass/Vol] 417.0 ng/mL Normal 17.9-464.0 [facility] Comment on above: Performed By: #### T 7, LIPA, TSH, AMADOU, CMP #### [facility] [address] [place] [address] Dr. Krystle Heaton AFP (TUMOR MARKER)on 021 AFP, Serum, Tumor Marker 5.2 ng/mL Normal 0.0-8.3 [facility] Comment on above: Result Comment: [employer] Electrochemiluminescence Immunoassay (ECLIA) . Values obtained with different assay methods or kits cannot be used interchangeably. Results cannot be interpreted as absolute evidence of the presence or absence of malignant disease. . This test is not interpretable in females. Performed By: #### T 7, LIPA, TSH, AMADOU, CMP #### [facility] [address] [place] [address] Dr. Krystle Heaton [id number] 2020 [id number] , Serum 132 mg/dL Normal 101-187 [facility] Comment on above: Performed By: #### H BSANS #### [facility] [address] [place] [address] Billy Devlin NE by IFAon 05-02-2021 Antinuclear Antibodies, IFA Negative Normal [facility] Comment on above: Result Comment: Nega tive <1:80 Borderline 1:80 Positive >1:80 Performed By: #### A NAIFA #### [facility] [address] [place] [address] Billy Devlin CERULOPLASMINon 05-02-2021 Ceruloplasmin 27.8 mg/dL Normal 16.0-31.0 [facility] Comment on above: Performed By: #### C BC #### [facility] [address] [place] [address] Billy Devlin HEP A AB TOTALon 05-02-2021 Hep A Ab, Total Negative Normal Negative [facility] Comment on above: Performed By: #### H BSANS #### [facility] [address] [place] [address] Billy Devlin HEP B COREon 05-02-2021 Hep B Core Ab, Tot Negative Normal Negative [facility] Comment on above: Performed By: #### T 7, LIPA, TSH, AMADOU, CMP #### [facility] [address] [place], [place] [address] Dr. Krystle Heaton HEP B SURFACE ANTIGEN SCREEN on 05-02-2021 HBsAg Screen Negative Normal Negative [facility] Comment on above: Performed By: #### H BSANS #### [facility] [address] [place] [address] Billy Devlin HEPATITIS B SURFACE ANTIBODY , QUANTon 05-02-2021 Hepatitis B Surf AB Quant <3.1 Critically low Immunity>9. 9 [facility] Comment on above: Result Comment: Stat us of Immunity Anti-HBs Level Inconsistent with Immunity 0.0 - 9.9 Consistent with Immunity >9.9 Performed By: #### H BSANS #### [facility] [address] [place] [address] Billy Devlin HEPATITIS C ANTIBODYon 05-02 Hep C Virus Ab <0.1 Normal 0.0-0.9 [facility] Comment on above: Result Comment: Nega tive: < 0.8 Indeterminate: 0.8 - 0.9 Positive: > 0.9 . The CDC recommends that a positive HCV antibody result be followed up with a HCV Nucleic Acid Amplification test (709642). Performed By: #### T 7, LA, SAVITA, AMADOU, CMP #### [facility] [address] [place] [address] Dr. Krystle Heaton MITICHONDRIAL (M2) ANTIBODYo n 05-02-2021 Mitochondrial (M2) Antibody <20.0 Normal 0.0-20.0 [facility] Comment on above: Result Comment: Nega tive 0.0 - 20.0 Equivocal 20.1 - 24.9 Positive >24.9 . Mitochondrial (M2) Antibodies are found in 90-96% of patients with primary biliary cirrhosis. Performed By: #### F ERR #### [facility] [address] [place] [address] Dr. Krystle Heaton CBC AUTO DIFFon 05-01-2021 BASO # 0.1 103/ul Normal 0.0-0.1 [facility] Comment on above: Performed By: #### C BC #### [facility] [address] [place] [address] Billy Devlin Basophils/100 WBC (Bld) 1.5 % Normal 0.2-2.0 [facility] Comment on above: Performed By: #### C BC #### [facility] [address] [place] [address] Billy Quita EO # 0.1 103/ul Normal 0.0-0.7 [facility] Comment on above: Performed By: #### C BC #### [facility] [address] [place] [address] Billy Quita Eosinophils/100 WBC (Bld) 2.1 % Normal 0.9-7.0 [facility] Comment on above: Performed By: #### C BC #### [facility] [address] [place] [address] Billy Quita Erythrocyte distribution width (RBC) [Ratio] 12.7 % Normal 11.0-15.0 [facility] Comment on above: Performed By: #### C BC #### [facility] [address] [place] [address] Billy Quita Hematocrit (Bld) [Volume fraction] 34.6 % Critically low 42.0-54.0 [facility] Comment on above: Performed By: #### C BC #### [facility] [address] [place] [address] Billy Quita Hemoglobin (Bld) [Mass/Vol] 11.2 g/dL Critically low 14.0-18.0 [facility] Comment on above: Performed By: #### C BC #### [facility] [address] [place] [address] Billy Quita IG # 0.01 10e3/ul Normal 0.00-0.03 [facility] Comment on above: Performed By: #### C BC #### [facility] [address] [place] [address] Billy Quita IG % 0.3 % Normal 0.0-0.5 [facility] Comment on above: Performed By: #### C BC #### [facility] [address] [place] [address] Billy Quita LYMPH # 1.0 103/ul Critically low 1.2-3.8 [facility] Comment on above: Performed By: #### C BC #### [facility] [address] [place] [address] Billy Quita Lymphocytes/100 WBC (Bld) 30.4 % Normal 20.5-60.0 [facility] Comment on above: Performed By: #### C BC #### [facility] [address] [place] [address] Billy Devlin MANUAL DIFF REQ NO Normal [facility] Comment on above: Performed By: #### C BC #### [facility] [address] [place] [address] Billy Devlin MCH (RBC) [Entitic mass] 35.8 pg Critically high 25.9-34.0 [facility] Comment on above: Performed By: #### C BC #### [facility] [address] [place] [address] Billy Devlin MCHC (RBC) [Mass/Vol] 32.4 g/dL Normal 29.9-35.2 [facility] Comment on above: Performed By: #### C BC #### [facility] [address] [place] [address] Billy Devlin MCV (RBC) [Entitic vol] 110.5 fL Critically high 80.0-94.0 [facility] Comment on above: Performed By: #### C BC #### [facility] [address] [place] [address] Billy Devlin MONO # 0.4 103/ul Normal 0.3-0.8 [facility] Comment on above: Performed By: #### C BC #### [facility] [address] [place] [address] Billy Devlin Monocytes/100 WBC (Bld) 11.3 % Normal 1.7-12.0 [facility] Comment on above: Performed By: #### C BC #### [facility] [address] [place] [address] Billy Devlin NEUT # 1.8 103/ul Normal 1.4-6.5 [facility] Comment on above: Performed By: #### C BC #### [facility] [address] [place] [address] Billy Devlin Neutrophils/100 WBC (Bld) 54.4 % Normal 43.0-75.0 [facility] Comment on above: Performed By: #### C BC #### [facility] [address] [place] [address] Billycarrillo Devlin Platelet mean volume (Bld) [Entitic vol] 11.3 fL Normal 9.5-13.5 [facility] Comment on above: Performed By: #### C BC #### [facility] [address] [place], [place] [address] Billycarrillo Deanen PLT 142 103/ul Critically low 150-450 [facility] Comment on above: Performed By: #### C BC #### [facility] [address] [place] [id number] Billy Quita RBC 3.13 106/ul Critically low 4.70-6.10 [facility] Comment on above: Performed By: #### C BC #### [facility] [address] [place] [id number] Billy Quita WBC 3.4 103/ul Critically low 4.0-11.0 [facility] Comment on above: Performed By: #### C BC #### [facility] [address] [place], [place] [address] Billy Quita LIVER PROFILEon 05-01-2021 Albumin/Globulin [Mass ratio] 1.0 {ratio} Normal [facility] Comment on above: Performed By: #### H BSANS #### [facility] [address] [place], [place] [address] Billy Quita ALP [Catalytic activity/Vol] 67 U/L Normal 38-126 [facility] Comment on above: Performed By: #### H BSANS #### [facility] [address] [place], [place] [address] Billy Quita ALT [Catalytic activity/Vol] 52 U/L Normal 21-72 [facility] Comment on above: Performed By: #### H BSANS #### [facility] [address] [place], [place] [address] Billy Quita AST [Catalytic activity/Vol] 51 U/L Normal 17-59 [facility] Comment on above: Performed By: #### H BSANS #### [facility] [address] [place], [place] [address] Billy Quita BILI, CONJUGATED 0.2 mg/dL Normal 0.0-0.3 [facility] Comment on above: Performed By: #### H BSANS #### [facility] [address] [place] [address] Billy Quita Bilirubin [Mass/Vol] 0.5 mg/dL Normal 0.2-1.3 [facility] Comment on above: Performed By: #### H BSANS #### [facility] [address] [place] [address] Billy Quita Globulin (S) [Mass/Vol] 3.4 g/dL Normal [facility] Comment on above: Performed By: #### H BSANS #### [facility] [address] [place] [address] Billy Quita Protein [Mass/Vol] 6.9 g/dL Normal 6.1-8.2 [facility] Comment on above: Performed By: #### H BSANS #### [facility] [address] [place] [address] Billy Quita PROTIMEon 05-01-2021 INR Coag (PPP) [Relative time] 0.95 {INR} Normal [facility] Comment on above: Performed By: #### C BC #### [facility] [address] [place] [address] Billy Quita INR GUIDELINES SEE BELOW Normal [facility] Comment on above: Result Comment: MOUNA RED INR: 2.0 - 3.0 CONDITIONS NOT LISTED BELOW 2.5 - 3.5 FOR PROSTHETIC HEART VALVE REPLACEMENT 2.5 - 3.5 RECURRENT THROMBOSIS Performed By: #### C BC #### [facility] [address] [place] [address] Billy Quita PT Coag (PPP) [Time] 10.4 s Normal 9.0-11.6 [facility] Comment on above: Performed By: #### C BC #### [facility] [address] [place] [address] Billycarrillo Devlin RENAL FUNCTION PANELon 05-01 Albumin [Mass/Vol] 3.5 g/dL Normal 3.5-5.0 [facility] Comment on above: Performed By: #### H BSANS #### [facility] [address] [place] [address] Billy Quita Calcium [Mass/Vol] 8.7 mg/dL Normal 8.4-10.2 [facility] Comment on above: Performed By: #### H BSANS #### [facility] [address] [place] [address] Billy Quita Chloride [Moles/Vol] 104 mmol/L Normal 98-107 [facility] Comment on above: Performed By: #### H BSANS #### [facility] [address] [place] [address] Billy Quita CO2 [Moles/Vol] 25.7 mmol/L Normal 22.0-30.0 [facility] Comment on above: Performed By: #### H BSANS #### [facility] [address] [place] [address] Billy Quita Creatinine [Mass/Vol] 1.01 mg/dL Normal 0.66-1.25 [facility] Comment on above: Performed By: #### H BSANS #### [facility] [address] [place] [address] Billy Quita EGFR-AF FRENCH >60 Normal >=60 [facility] Comment on above: Performed By: #### H BSANS #### [facility] [address] [place] [address] Billy Quita EGFR-NON AF FRENCH >60 Normal >=60 [facility] Comment on above: Performed By: #### H BSANS #### [facility] [address] [place] [address] Billy Quita Glucose [Mass/Vol] 103 mg/dL Normal 74-106 [facility] Comment on above: Performed By: #### H BSANS #### [facility] [address] [place] [address] Billy Quita Phosphate [Mass/Vol] 3.6 mg/dL Normal 2.5-4.5 [facility] Comment on above: Performed By: #### H BSANS #### [facility] [address] [place] [address] Billy Quita Potassium [Moles/Vol] 4.2 mmol/L Normal 3.4-5.0 [facility] Comment on above: Performed By: #### H BSANS #### [facility] [address] [place] [address] Billy Devlin Sodium [Moles/Vol] 138 mmol/L Normal 137-145 [facility] Comment on above: Performed By: #### H BSANS #### [facility] [address] [place] [address] Billy Devlin Urea nitrogen [Mass/Vol] 7.0 mg/dL Critically low 9.0-20.0 [facility] Comment on above: Performed By: #### H BSANS #### [facility] [address] [place] [address] Billy Devlin CBC AUTO DIFFon 04-27-2021 BASO # 0.0 103/ul Normal 0.0-0.1 [facility] Comment on above: Performed By: #### T 7, LIPA, TSH, AMADOU, CMP #### [facility] [address] [place] [address] Dr. Krystle Heaton Basophils/100 WBC (Bld) 0.9 % Normal 0.2-2.0 [facility] Comment on above: Performed By: #### T 7, LIPA, TSH, AMADOU, CMP #### [facility] [address] [place] [address] Dr. Krystle Heaton EO # 0.1 103/ul Normal 0.0-0.7 [facility] Comment on above: Performed By: #### T 7, LIPA, TSH, AMADOU, CMP #### [facility] [address] [place] [address] Dr. Krystle Heaton Eosinophils/100 WBC (Bld) 2.6 % Normal 0.9-7.0 [facility] Comment on above: Performed By: #### T 7, LIPA, TSH, AMADOU, CMP #### [facility] [address] [place] [address] Dr. Krystle Heaton Erythrocyte distribution width (RBC) [Ratio] 12.4 % Normal 11.0-15.0 [facility] Comment on above: Performed By: #### T 7, LIPA, TSH, AMADOU, CMP #### [facility] [address] [place] [address] Dr. Krystle Heaton Hematocrit (Bld) [Volume fraction] 36.8 % Critically low 42.0-54.0 [facility] Comment on above: Performed By: #### T 7, LIPA, TSH, AMADOU, CMP #### [facility] [address] [place] [address] Dr. Krystle Heaton Hemoglobin (Bld) [Mass/Vol] 12.0 g/dL Critically low 14.0-18.0 [facility] Comment on above: Performed By: #### T 7, LIPA, TSH, AMADOU, CMP #### [facility] [address] [place] [address] Dr. Krystle Heaton IG # 0.02 10e3/ul Normal 0.00-0.03 [facility] Comment on above: Performed By: #### T 7, LIPA, TSH, AMADOU, CMP #### [facility] [address] [place] [address] Dr. Krystle Heaton IG % 0.4 % Normal 0.0-0.5 [facility] Comment on above: Performed By: #### T 7, LIPA, TSH, AMADOU, CMP #### [facility] [address] [place] [address] Dr. Krystle Heaton LYMPH # 1.2 103/ul Normal 1.2-3.8 [facility] Comment on above: Performed By: #### T 7, LIPA, TSH, AMADOU, CMP #### [facility] [address] [place] [address] Dr. Krystle Heaton Lymphocytes/100 WBC (Bld) 26.0 % Normal 20.5-60.0 [facility] Comment on above: Performed By: #### T 7, LIPA, TSH, AMADOU, CMP #### [facility] [address] [place] [address] Dr. Krystle Heaton MANUAL DIFF REQ NO Normal [facility] Comment on above: Performed By: #### T 7, LIPA, TSH, AMADOU, CMP #### [facility] [address] [place] [address] Dr. Krystle Heaton MCH (RBC) [Entitic mass] 36.4 pg Critically high 25.9-34.0 [facility] Comment on above: Performed By: #### T 7, LIPA, TSH, AMADOU, CMP #### [facility] [address] [place] [address] Dr. Krystle Heaton MCHC (RBC) [Mass/Vol] 32.6 g/dL Normal 29.9-35.2 [facility] Comment on above: Performed By: #### T 7, LIPA, TSH, AMADOU, CMP #### [facility] [address] [place] [address] Dr. Krystle Heaton MCV (RBC) [Entitic vol] 111.5 fL Critically high 80.0-94.0 [facility] Comment on above: Performed By: #### T 7, LIPA, TSH, AMADOU, CMP #### [facility] [address] [place] [address] Dr. Krystle Heaton MONO # 0.5 103/ul Normal 0.3-0.8 [facility] Comment on above: Performed By: #### T 7, LIPA, TSH, AMADOU, CMP #### [facility] [address] [place] [address] Dr. Krystle Heaton Monocytes/100 WBC (Bld) 10.1 % Normal 1.7-12.0 [facility] Comment on above: Performed By: #### T 7, LIPA, TSH, AMADOU, CMP #### [facility] [address] [place] [address] Dr. Krystle Heaton NEUT # 2.8 103/ul Normal 1.4-6.5 [facility] Comment on above: Performed By: #### T 7, LIPA, TSH, AMADOU, CMP #### [facility] [address] [place] [address] Dr. Krystle Heaton Neutrophils/100 WBC (Bld) 60.0 % Normal 43.0-75.0 [facility] Comment on above: Performed By: #### T 7, LIPA, TSH, AMADOU, CMP #### [facility] [address] [place] [address] Dr. Krystle Heaton Platelet mean volume (Bld) [Entitic vol] 11.0 fL Normal 9.5-13.5 [facility] Comment on above: Performed By: #### T 7, LIPA, TSH, AMADOU, CMP #### [facility] [address] [place] [address] Dr. Krystle Heaton PLT 140 103/ul Critically low 150-450 [facility] Comment on above: Performed By: #### T 7, LIPA, TSH, AMADOU, CMP #### [facility] [address] [place] [address] Dr. Krystle Heaton RBC 3.30 106/ul Critically low 4.70-6.10 [facility] Comment on above: Performed By: #### T 7, LIPA, TSH, AMADOU, CMP #### [facility] [address] [place] [address] Dr. Krystle Heaton WBC 4.7 103/ul Normal 4.0-11.0 [facility] Comment on above: Performed By: #### T 7, LIPA, TSH, AMADOU, CMP #### [facility] [address] [place] [address] Dr. Krystle Heaton FERRITINon 04-27-2021 Ferritin [Mass/Vol] 845.0 ng/mL Critically high 17.9-464.0 [facility] Comment on above: Performed By: #### F ERR #### [facility] [address] [place] [address] Dr. Krystle Heaton CBC AUTO DIFFon 04-18-2021 BASO # 0.1 103/ul Normal 0.0-0.1 [facility] Comment on above: Performed By: #### T 7, LIPA, TSH, AMADOU, CMP #### [facility] [address] [place] [address] Dr. Krystle Heaton Basophils/100 WBC (Bld) 1.1 % Normal 0.2-2.0 [facility] Comment on above: Performed By: #### T 7, LIPA, TSH, AMADOU, CMP #### [facility] [address] [place] [address] Dr. Krystle Heaton EO # 0.1 103/ul Normal 0.0-0.7 [facility] Comment on above: Performed By: #### T 7, LIPA, TSH, AMADOU, CMP #### [facility] [address] [place] [address] Dr. Krystle Heaton Eosinophils/100 WBC (Bld) 2.2 % Normal 0.9-7.0 [facility] Comment on above: Performed By: #### T 7, LIPA, TSH, AMADOU, CMP #### [facility] [address] [place] [address] Dr. Krystle Heaton Erythrocyte distribution width (RBC) [Ratio] 13.1 % Normal 11.0-15.0 [facility] Comment on above: Performed By: #### T 7, LIPA, TSH, AMADOU, CMP #### [facility] [address] [place] [address] Dr. Krystle Heaton Hematocrit (Bld) [Volume fraction] 35.2 % Critically low 42.0-54.0 [facility] Comment on above: Performed By: #### T 7, LIPA, TSH, AMADOU, CMP #### [facility] [address] [place] [address] Dr. Krystle Heaton Hemoglobin (Bld) [Mass/Vol] 11.8 g/dL Critically low 14.0-18.0 [facility] Comment on above: Performed By: #### T 7, LIPA, TSH, AMADOU, CMP #### [facility] [address] [place] [address] Dr. Krystle Heaton IG # 0.01 10e3/ul Normal 0.00-0.03 [facility] Comment on above: Performed By: #### T 7, LIPA, TSH, AMADOU, CMP #### [facility] [address] [place] [address] Dr. Krystle Heaton IG % 0.2 % Normal 0.0-0.5 [facility] Comment on above: Performed By: #### T 7, LIPA, TSH, AMADOU, CMP #### [facility] [address] [place] [address] Dr. Krystle Heaton LYMPH # 1.6 103/ul Normal 1.2-3.8 [facility] Comment on above: Performed By: #### T 7, LIPA, TSH, AMADOU, CMP #### [facility] [address] [place] [address] Dr. Krystle Heaton Lymphocytes/100 WBC (Bld) 35.1 % Normal 20.5-60.0 [facility] Comment on above: Performed By: #### T 7, LIPA, TSH, AMADOU, CMP #### [facility] [address] [place] [address] Dr. Krystle Heaton MANUAL DIFF REQ NO Normal [facility] Comment on above: Performed By: #### T 7, LIPA, TSH, AMADOU, CMP #### [facility] [address] [place] [address] Dr. Krystle Heaton MCH (RBC) [Entitic mass] 36.6 pg Critically high 25.9-34.0 [facility] Comment on above: Performed By: #### T 7, LIPA, TSH, AMADOU, CMP #### [facility] [address] [place] [address] Dr. Krystle Heaton MCHC (RBC) [Mass/Vol] 33.5 g/dL Normal 29.9-35.2 [facility] Comment on above: Performed By: #### T 7, LIPA, TSH, AMADOU, CMP #### [facility] [address] [place] [address] Dr. Krystle Heaton MCV (RBC) [Entitic vol] 109.3 fL Critically high 80.0-94.0 [facility] Comment on above: Performed By: #### T 7, LIPA, TSH, AMADOU, CMP #### [facility] [address] [place] [address] Dr. Krystle Heaton MONO # 0.5 103/ul Normal 0.3-0.8 [facility] Comment on above: Performed By: #### T 7, LIPA, TSH, AMADOU, CMP #### [facility] [address] [place] [address] Dr. Krystle Heaton Monocytes/100 WBC (Bld) 11.0 % Normal 1.7-12.0 [facility] Comment on above: Performed By: #### T 7, LIPA, TSH, AMADOU, CMP #### [facility] [address] [place] [address] Dr. Krystle Heaton NEUT # 2.2 103/ul Normal 1.4-6.5 [facility] Comment on above: Performed By: #### T 7, LIPA, TSH, AMADOU, CMP #### [facility] [address] [place] [address] Dr. Krystle Heaton Neutrophils/100 WBC (Bld) 50.4 % Normal 43.0-75.0 [facility] Comment on above: Performed By: #### T 7, LIPA, TSH, AMADOU, CMP #### [facility] [address] [place] [address] Dr. Krystle Heaton Platelet mean volume (Bld) [Entitic vol] 10.9 fL Normal 9.5-13.5 [facility] Comment on above: Performed By: #### T 7, LIPA, TSH, AMADOU, CMP #### [facility] [address] [place] [address] Dr. Krystle Heaton PLT 158 103/ul Normal 150-450 [facility] Comment on above: Performed By: #### T 7, LIPA, TSH, AMADOU, CMP #### [facility] [address] [place] [address] Dr. Krystle Heaton RBC 3.22 106/ul Critically low 4.70-6.10 [facility] Comment on above: Performed By: #### T 7, LIPA, TSH, AMADOU, CMP #### [facility] [address] [place] [address] Dr. Krystle Heaton WBC 4.5 103/ul Normal 4.0-11.0 [facility] Comment on above: Performed By: #### T 7, LIPA, TSH, AMADOU, CMP #### [facility] [address] [place] [address] Dr. Krystle Heaton FERRITINon 04-18-2021 Ferritin [Mass/Vol] ng/mL Critically high 17.9-464.0 [facility] Comment on above: Performed By: #### H BSANS #### [facility] [address] [place] [address] Billy Devlin CBC AUTO DIFFon 04-13-2021 BASO # 0.0 103/ul Normal 0.0-0.1 [facility] Comment on above: Performed By: #### T 7, LIPA, TSH, AMADOU, CMP #### [facility] [address] [place] [address] Dr. Krystle Heaton Basophils/100 WBC (Bld) 0.6 % Normal 0.2-2.0 [facility] Comment on above: Performed By: #### T 7, LIPA, TSH, AMADOU, CMP #### [facility] [address] [place] [address] Dr. Krystle Heaton EO # 0.1 103/ul Normal 0.0-0.7 [facility] Comment on above: Performed By: #### T 7, LIPA, TSH, AMADOU, CMP #### [facility] [address] [place] [address] Dr. Krystle Heaton Eosinophils/100 WBC (Bld) 3.2 % Normal 0.9-7.0 [facility] Comment on above: Performed By: #### T 7, LIPA, TSH, AMADOU, CMP #### [facility] [address] [place] [address] Dr. Krystle Heaton Erythrocyte distribution width (RBC) [Ratio] 13.6 % Normal 11.0-15.0 [facility] Comment on above: Performed By: #### T 7, LIPA, TSH, AMADOU, CMP #### [facility] [address] [place] [address] Dr. Krystle Heaton Hematocrit (Bld) [Volume fraction] 35.3 % Critically low 42.0-54.0 [facility] Comment on above: Performed By: #### T 7, LIPA, TSH, AMADOU, CMP #### [facility] [address] [place] [address] Dr. Kyrstle Heaton Hemoglobin (Bld) [Mass/Vol] 11.9 g/dL Critically low 14.0-18.0 [facility] Comment on above: Performed By: #### T 7, LIPA, TSH, AMADOU, CMP #### [facility] [address] [place] [address] Dr. Krystle Heaton IG # 0.01 10e3/ul Normal 0.00-0.03 [facility] Comment on above: Performed By: #### T 7, LIPA, TSH, AMADOU, CMP #### [facility] [address] [place] [address] Dr. Krystle Heaton IG % 0.3 % Normal 0.0-0.5 [facility] Comment on above: Performed By: #### T 7, LIPA, TSH, AMADOU, CMP #### [facility] [address] [place] [address] Dr. Krystle Heaton LYMPH # 1.1 103/ul Critically low 1.2-3.8 [facility] Comment on above: Performed By: #### T 7, LIPA, TSH, AMADOU, CMP #### [facility] [address] [place] [address] Dr. Krystle Heaton Lymphocytes/100 WBC (Bld) 35.1 % Normal 20.5-60.0 [facility] Comment on above: Performed By: #### T 7, LIPA, TSH, AMADOU, CMP #### [facility] [address] [place] [address] Dr. Krystle Heaton MANUAL DIFF REQ NO Normal [facility] Comment on above: Performed By: #### T 7, LIPA, TSH, AMADOU, CMP #### [facility] [address] [place] [address] Dr. Krystle Heaton MCH (RBC) [Entitic mass] 37.1 pg Critically high 25.9-34.0 [facility] Comment on above: Performed By: #### T 7, LIPA, TSH, AMADOU, CMP #### [facility] [address] [place] [address] Dr. Krystle Heaton MCHC (RBC) [Mass/Vol] 33.7 g/dL Normal 29.9-35.2 [facility] Comment on above: Performed By: #### T 7, LIPA, TSH, AMADOU, CMP #### [facility] [address] [place] [address] Dr. Krystle Heaton MCV (RBC) [Entitic vol] 110.0 fL Critically high 80.0-94.0 [facility] Comment on above: Result Comment: macr ocytosis 3+ Performed By: #### T 7, LIPA, TSH, AMADOU, CMP #### [facility] [address] [place] [address] Dr. Krystle Heaton MONO # 0.3 103/ul Normal 0.3-0.8 [facility] Comment on above: Performed By: #### T 7, LIPA, TSH, AMADOU, CMP #### [facility] [address] [place] [address] Dr. Krystle Heaton Monocytes/100 WBC (Bld) 10.7 % Normal 1.7-12.0 [facility] Comment on above: Performed By: #### T 7, LIPA, TSH, AMADOU, CMP #### [facility] [address] [place] [address] Dr. Krystle Heaton NEUT # 1.5 103/ul Normal 1.4-6.5 [facility] Comment on above: Performed By: #### T 7, LIPA, TSH, AMADOU, CMP #### [facility] [address] [place] [address] Dr. Krystle Heaton Neutrophils/100 WBC (Bld) 50.1 % Normal 43.0-75.0 [facility] Comment on above: Performed By: #### T 7, LIPA, TSH, AMADOU, CMP #### [facility] [address] [place] [address] Dr. Krystle Heaton Platelet mean volume (Bld) [Entitic vol] 10.8 fL Normal 9.5-13.5 [facility] Comment on above: Performed By: #### T 7, LIPA, TSH, AMADOU, CMP #### [facility] [address] [place], [place] [address] Dr. Krystle Heaton PLT 131 103/ul Critically low 150-450 [facility] Comment on above: Performed By: #### T 7, LIPA, TSH, AMADOU, CMP #### [facility] [address] [place] [address] Dr. Krystle Heaton RBC 3.21 106/ul Critically low 4.70-6.10 [facility] Comment on above: Performed By: #### T 7, LIPA, TSH, AMADOU, CMP #### [facility] [address] [address] [address] Krystle Heaton WBC 3.1 103/ul Critically low 4.0-11.0 [facility] Comment on above: Performed By: #### T 7, LIPA, TSH, AMADOU, CMP #### [facility] [address] [place] [address] Dr. Krystle Heaton FERRITINon 04-13-2021 Ferritin [Mass/Vol] ng/mL Critically high 17.9-464.0 [facility] Comment on above: Performed By: #### F ERR #### [facility] [address] [place] [address] Dr. Krystle Heaton Initial Visit (Gastroenterol ogy)on [...] Anuj 4 2021 1:09PM EST (Author) Normal [facility] CBC AUTO DIFFon 04-06-2021 BASO # 0.0 103/ul Normal 0.0-0.1 [facility] Comment on above: Performed By: #### H ALEXANDER #### [facility] [address] [address] Billy Quita Basophils/100 WBC (Bld) 0.9 % Normal 0.2-2.0 [facility] Comment on above: Performed By: #### H ALEXANDER #### [facility] [address] [address] Billy Quita EO # 0.1 103/ul Normal 0.0-0.7 [facility] Comment on above: Performed By: #### H ALEXANDER #### [facility] [address] [place] [address] Billy Quita Eosinophils/100 WBC (Bld) 3.0 % Normal 0.9-7.0 [facility] Comment on above: Performed By: #### H ALEXANDER #### [facility] [address] [place] [address] Billy Quita Erythrocyte distribution width (RBC) [Ratio] 13.6 % Normal 11.0-15.0 [facility] Comment on above: Performed By: #### H ALEXANDER #### [facility] [address] [place] [address] Billy Quita Hematocrit (Bld) [Volume fraction] 39.1 % Critically low 42.0-54.0 [facility] Comment on above: Performed By: #### H ALEXANDER #### [facility] [address] [place] [address] Billy Quita Hemoglobin (Bld) [Mass/Vol] 13.1 g/dL Critically low 14.0-18.0 [facility] Comment on above: Performed By: #### H ALEXANDER #### [facility] [address] [place] [address] Billy Quita IG # 0.02 10e3/ul Normal 0.00-0.03 [facility] Comment on above: Performed By: #### H ALEXANDER #### [facility] [address] [id number] Billy Quita IG % 0.5 % Normal 0.0-0.5 [facility] Comment on above: Performed By: #### H ALEXANDER #### [facility] [address] [place] [address] Billy Quita LYMPH # 1.1 103/ul Critically low 1.2-3.8 [facility] Comment on above: Performed By: #### H AELXANDER #### [facility] [address] [place] [address] Billy Devlin Lymphocytes/100 WBC (Bld) 26.7 % Normal 20.5-60.0 [facility] Comment on above: Performed By: #### H ALEXANDER #### [facility] [address] [place] [address] Billy Devlin MANUAL DIFF REQ NO Normal [facility] Comment on above: Performed By: #### H ALEXANDER #### [facility] [address] [place] [address] Billycarrillo Deanen MCH (RBC) [Entitic mass] 36.7 pg Critically high 25.9-34.0 [facility] Comment on above: Performed By: #### H ALEXANDER #### [facility] [address] [place] [address] Billycarrillo Devlin MCHC (RBC) [Mass/Vol] 33.5 g/dL Normal 29.9-35.2 [facility] Comment on above: Result Comment: macr ocytosis Performed By: #### H ALEXANDER #### [facility] [address] [place] [address] Billycarrillo Devlin MCV (RBC) [Entitic vol] 109.5 fL Critically high 80.0-94.0 [facility] Comment on above: Performed By: #### H ALEXANDER #### [facility] [address] [place] [address] Billy Quita MONO # 0.4 103/ul Normal 0.3-0.8 [facility] Comment on above: Performed By: #### H ALEXANDER #### [facility] [address] [address] Billy Quita Monocytes/100 WBC (Bld) 8.7 % Normal 1.7-12.0 [facility] Comment on above: Performed By: #### H ALEXANDER #### [facility] [address] [place] [address] Billycarrillo Devlin NEUT # 2.6 103/ul Normal 1.4-6.5 [facility] Comment on above: Performed By: #### H ALEXANDER #### [facility] [address] [place], [place] [address] Billy Devlin Neutrophils/100 WBC (Bld) 60.2 % Normal 43.0-75.0 [facility] Comment on above: Performed By: #### H ALEXANDER #### [facility] [address] [place] [address] Billy Devlin Platelet mean volume (Bld) [Entitic vol] 11.1 fL Normal 9.5-13.5 [facility] Comment on above: Performed By: #### H ALEXANDER #### [facility] [address] [place] [address] Billy Quita PLT 162 103/ul Normal 150-450 [facility] Comment on above: Performed By: #### H ALEXANDER #### [facility] [address] [place], [place] [address] Billy Quita RBC 3.57 106/ul Critically low 4.70-6.10 [facility] Comment on above: Performed By: #### H ALEXANDER #### [facility] [address] [place], [place] [address] Billy Quita WBC 4.3 103/ul Normal 4.0-11.0 [facility] Comment on above: Performed By: #### H BSASUZANNE #### [facility] [address] [place], [place] [address] Billy Devlin FERRITINon 04-06-2021 Ferritin [Mass/Vol] ng/mL Critically high 17.9-464.0 [facility] Comment on above: Performed By: #### T 7, LIPA, TSH, AMADOU, CMP #### [facility] [address] [address] [address] Krystle Heaton FREE T4on 04-06-2021 Free T4 [Mass/Vol] 0.73 ng/dL Critically low 0.78-2.19 [facility] Comment on above: Performed By: #### T 7, LIPA, TSH, AMADOU, CMP #### [facility] [address] [place] [address] Dr. Krystle Heaton IRON AND TIBCon 04-06-2021 % SATURATION 54.8 % Normal [facility] Comment on above: Performed By: #### T 7, LIPA, TSH, AMADOU, CMP #### [facility] [address] [place] [address] Dr. Krystle Heaton Iron [Mass/Vol] 161.0 ug/dL Normal 49.0-181.0 [facility] Comment on above: Performed By: #### T 7, LIPA, TSH, AMADOU, CMP #### [facility] [address] [place] [address] Dr. Krystle Heaton TIBC DIRECT 294.0 ug/dL Normal 261.0-497.0 [facility] Comment on above: Performed By: #### T 7, LIPA, TSH, AMADOU, CMP #### [facility] [address] [place] [address] Dr. Krystle Heaton PROF 14(COMP METB)on 021 Albumin [Mass/Vol] 3.7 g/dL Normal 3.5-5.0 [facility] Comment on above: Performed By: #### T 7, LIPA, TSH, AMADOU, CMP #### [facility] [address] [place] [address] Dr. Krystle Heaton Albumin/Globulin [Mass ratio] 1.0 {ratio} Normal [facility] Comment on above: Performed By: #### T 7, LIPA, TSH, AMADOU, CMP #### [facility] [address] [place] [address] Dr. Krystle Heaton ALP [Catalytic activity/Vol] 83 U/L Normal 38-126 [facility] Comment on above: Performed By: #### T 7, LIPA, TSH, AMADOU, CMP #### [facility] [address] [place] [address] Dr. Krystle Heaton ALT [Catalytic activity/Vol] 140 U/L Critically high 21-72 [facility] Comment on above: Performed By: #### T 7, LIPA, TSH, AMADOU, CMP #### [facility] [address] [place] [address] Dr. Krystle Heaton Anion gap [Moles/Vol] 15.8 mmol/L Normal [facility] Comment on above: Performed By: #### T 7, LIPA, TSH, AMADOU, CMP #### [facility] [address] [place] [address] Dr. Krystle Heaton AST [Catalytic activity/Vol] 186 U/L Critically high 17-59 [facility] Comment on above: Performed By: #### T 7, LIPA, TSH, AMADOU, CMP #### [facility] [address] [place] [address] Dr. Krystle Heaton Bilirubin [Mass/Vol] 0.5 mg/dL Normal 0.2-1.3 [facility] [facility] Comment on above: Performed By: #### T 7, LIPA, TSH, AMADOU, CMP #### [facility] [address] [place] [address] Dr. Krystle Heaton Calcium [Mass/Vol] 9.0 mg/dL Normal 8.4-10.2 The [facility] Comment on above: Performed By: #### T 7, LIPA, TSH, AMADOU, CMP #### [facility] [address] [place] [address] Dr. Krystle Heaton Chloride [Moles/Vol] 101 mmol/L Normal 98-107 The [facility] Comment on above: Performed By: #### T 7, LIPA, TSH, AMADOU, CMP #### [facility] [address] [place] [address] Dr. Krystle Heaton CO2 [Moles/Vol] 25.8 mmol/L Normal 22.0-30.0 The [facility] Comment on above: Performed By: #### T 7, LIPA, TSH, AMADOU, CMP #### [facility] [address] [address] [address] Krystle Heaton Creatinine [Mass/Vol] 1.07 mg/dL Normal 0.66-1.25 [facility] Comment on above: Performed By: #### T 7, LIPA, TSH, AMADOU, CMP #### [facility] [address] [address] [address] Krystle Heaton EGFR-AF FRENCH >60 Normal >=60 The [facility] Comment on above: Performed By: #### T 7, LIPA, TSH, AMADOU, CMP #### [facility] [address] [address] [address] Krystle Heaton EGFR-NON AF FRENCH >60 Normal >=60 [facility] Comment on above: Performed By: #### T 7, LIPA, TSH, AMADOU, CMP #### [facility] [address] [place] [address] Dr. Krystle Heaton Globulin (S) [Mass/Vol] 3.7 g/dL Normal [facility] Comment on above: Performed By: #### T 7, LIPA, TSH, AMADOU, CMP #### [facility] [address] [place] [address] Dr. Krystle Heaton Glucose [Mass/Vol] 104 mg/dL Normal 74-106 [facility] Comment on above: Performed By: #### T 7, LIPA, TSH, AMADOU, CMP #### [facility] [address] [address] [address] Krystle Heaton Potassium [Moles/Vol] 4.6 mmol/L Normal 3.4-5.0 [facility] Comment on above: Performed By: #### T 7, LIPA, TSH, AMADOU, CMP #### [facility] [address] [address] [address] Krystle Heaton Protein [Mass/Vol] 7.4 g/dL Normal 6.1-8.2 The [facility] Comment on above: Performed By: #### T 7, LIPA, TSH, AMADOU, CMP #### [facility] [address] [place] [address] Dr. Krystle Heaton Sodium [Moles/Vol] 138 mmol/L Normal 137-145 [facility] Comment on above: Performed By: #### T 7, LIPA, TSH, AMADOU, CMP #### [facility] [address] [place] [address] Dr. Krystle Heaton Urea nitrogen [Mass/Vol] 10.0 mg/dL Normal 9.0-20.0 [facility] Comment on above: Performed By: #### T 7, LIPA, TSH, AMADOU, CMP #### [facility] [address] [place] [address] Dr. Krystle Heaton Urea nitrogen/Creatinine [Mass ratio] 9.3 mg/mg Normal The [facility] Comment on above: Performed By: #### T 7, LIPA, TSH, AMADOU, CMP #### [facility] [address] [place] [address] Dr. Krystle Heaton TSHon 04-06-2021 TSH 1.945 uIU/mL Normal 0.470-4.680 [facility] Comment on above: Performed By: #### T 7, LIPA, TSH, AMADOU, CMP #### [facility] [address] [place] [address] Dr. Krystle Heaton TSH RANGE SEE BELOW Normal The [facility] Comment on above: Result Comment: <0.3 4 UIU/ml HYPERTHYROID 0.34-5.60 UIU/ml EUTHYROID >5.60 UIU/ml HYPOTHYROID Performed By: #### T 7, LIPA, TSH, AMADOU, CMP #### [facility] [address] [place] [address] Dr. Krystle Heaton CBC AUTO DIFFon 03-30-2021 BASO # 0.0 103/ul Normal 0.0-0.1 [facility] Comment on above: Performed By: #### T 7, LIPA, TSH, AMADOU, CMP #### [facility] [address] [place] [address] Dr. Krystle Heaton Basophils/100 WBC (Bld) 0.8 % Normal 0.2-2.0 [facility] Comment on above: Performed By: #### T 7, LIPA, TSH, AMADOU, CMP #### [facility] [address] [place] [address] Dr. Krystle Heaton EO # 0.1 103/ul Normal 0.0-0.7 The [facility] Comment on above: Performed By: #### T 7, LIPA, TSH, AMADOU, CMP #### [facility] [address] [place] [address] Dr. Krystle Heaton Eosinophils/100 WBC (Bld) 3.0 % Normal 0.9-7.0 The [facility] Comment on above: Performed By: #### T 7, LIPA, TSH, AMADOU, CMP #### [facility] [address] [place] [address] Dr. Krystle Heaotn Erythrocyte distribution width (RBC) [Ratio] 13.9 % Normal 11.0-15.0 [facility] Comment on above: Performed By: #### T 7, LIPA, TSH, AMADOU, CMP #### [facility] [address] [place] [address] Dr. Krystle Heaton Hematocrit (Bld) [Volume fraction] 40.4 % Critically low 42.0-54.0 [facility] Comment on above: Performed By: #### T 7, LIPA, TSH, AMADOU, CMP #### [facility] [address] [place] [address] Dr. Krystle Heaton Hemoglobin (Bld) [Mass/Vol] 13.5 g/dL Critically low 14.0-18.0 [facility] Comment on above: Performed By: #### T 7, LIPA, TSH, AMADOU, CMP #### [facility] [address] [place] [address] Dr. Krystle Heaton IG # 0.01 10e3/ul Normal 0.00-0.03 The [facility] Comment on above: Performed By: #### T 7, LIPA, TSH, AMADOU, CMP #### [facility] [address] [place] [address] Dr. Krystle Heaton IG % 0.3 % Normal 0.0-0.5 The [facility] Comment on above: Performed By: #### T 7, LIPA, TSH, AMADOU, CMP #### [facility] [address] [place] [address] Dr. Krystle Heaton LYMPH # 1.2 103/ul Normal 1.2-3.8 The [facility] Comment on above: Performed By: #### T 7, LIPA, TSH, AMADOU, CMP #### [facility] [address] [place] [address] Dr. Krystle Heaton Lymphocytes/100 WBC (Bld) 32.7 % Normal 20.5-60.0 The [facility] Comment on above: Performed By: #### T 7, LIPA, TSH, AMADOU, CMP #### [facility] [address] [place] [address] Dr. Krystle Heaton MANUAL DIFF REQ NO Normal [facility] Comment on above: Performed By: #### T 7, LIPA, TSH, AMADOU, CMP #### [facility] [address] [place] [address] Dr. Krystle Heaton MCH (RBC) [Entitic mass] 36.5 pg Critically high 25.9-34.0 [facility] Comment on above: Performed By: #### T 7, LIPA, TSH, AMADOU, CMP #### [facility] [address] [place] [address] Dr. Krystle Heaton MCHC (RBC) [Mass/Vol] 33.4 g/dL Normal 29.9-35.2 The [facility] Comment on above: Result Comment: MACR OCYTOSIS PRESENT Performed By: #### T 7, LIPA, TSH, AMADOU, CMP #### [facility] [address] [place] [address] Dr. Krystle Heaton MCV (RBC) [Entitic vol] 109.2 fL Critically high 80.0-94.0 The [facility] Comment on above: Performed By: #### T 7, LIPA, TSH, AMADOU, CMP #### [facility] [address] [place] [address] Dr. Krystle Heaton MONO # 0.4 103/ul Normal 0.3-0.8 The [facility] Comment on above: Performed By: #### T 7, LIPA, TSH, AMADOU, CMP #### [facility] [address] [place] [address] Dr. Krystle Heaton Monocytes/100 WBC (Bld) 11.4 % Normal 1.7-12.0 [facility] Comment on above: Performed By: #### T 7, LIPA, TSH, AMADOU, CMP #### [facility] [address] [place] [address] Dr. Krystle Heaton NEUT # 1.9 103/ul Normal 1.4-6.5 The [facility] Comment on above: Performed By: #### T 7, LIPA, TSH, AMADOU, CMP #### [facility] [address] [place] [address] Dr. Krystle Heaton Neutrophils/100 WBC (Bld) 51.8 % Normal 43.0-75.0 [facility] Comment on above: Performed By: #### T 7, LIPA, TSH, AMADOU, CMP #### [facility] [address] [place] [address] Dr. Krystle Heaton Platelet mean volume (Bld) [Entitic vol] 10.8 fL Normal 9.5-13.5 The [facility] Comment on above: Performed By: #### T 7, LIPA, TSH, AMADOU, CMP #### [facility] [address] [place] [address] Dr. Krystle Heaton PLT 184 103/ul Normal 150-450 The [facility] Comment on above: Performed By: #### T 7, LIPA, TSH, AMADOU, CMP #### [facility] [address] [place] [address] Dr. Krystle Heaton RBC 3.70 106/ul Critically low 4.70-6.10 The [facility] Comment on above: Performed By: #### T 7, LIPA, TSH, AMADOU, CMP #### [facility] [address] [place] [address] Dr. Krystle Heaton WBC 3.6 103/ul Critically low 4.0-11.0 The [facility] Comment on above: Performed By: #### T 7, LIPA, TSH, AMADOU, CMP #### [facility] [address] [place] [address] Dr. Krystle Heaton FERRITINon 03-30-2021 Ferritin [Mass/Vol] ng/mL Critically high 17.9-464.0 [facility] Comment on above: Performed By: #### F ERR #### [facility] [address] [place] [address] Dr. Krystle Heaton FREE T4on 03-30-2021 Free T4 [Mass/Vol] 0.83 ng/dL Normal 0.78-2.19 The [facility] Comment on above: Performed By: #### F ERR #### [facility] [address] [place] [address] Dr. Krystle Heaton IRON AND TIBCon 03-30-2021 % SATURATION 78.5 % Normal [facility] Comment on above: Performed By: #### F ERR #### [facility] [address] [place] [address] Dr. Krystle Heaton Iron [Mass/Vol] 230.0 ug/dL Critically high 49.0-181.0 [facility] Comment on above: Performed By: #### F ERR #### [facility] [address] [place] [address] Dr. Krystle Heaton TIBC DIRECT 293.0 ug/dL Normal 261.0-497.0 [facility] Comment on above: Performed By: #### F ERR #### [facility] [address] [place] [address] Dr. Krystle Heaton PROF 14(COMP METB)on 021 Albumin [Mass/Vol] 3.8 g/dL Normal 3.5-5.0 [facility] Comment on above: Performed By: #### T 7, LIPA, TSH, AMADOU, CMP #### [facility] [address] [place] [address] Dr. Krystle Heaton Albumin/Globulin [Mass ratio] 1.0 {ratio} Normal [facility] Comment on above: Performed By: #### T 7, LIPA, TSH, AMADOU, CMP #### [facility] [address] [place] [address] Dr. Krystle Heaton ALP [Catalytic activity/Vol] 90 U/L Normal 38-126 [facility] Comment on above: Performed By: #### T 7, LIPA, TSH, AMADOU, CMP #### [facility] [address] [place] [address] Dr. Krystle Heaton ALT [Catalytic activity/Vol] 149 U/L Critically high 21-72 [facility] Comment on above: Performed By: #### T 7, LIPA, TSH, AMADOU, CMP #### [facility] [address] [place] [address] Dr. Krystle Heaton Anion gap [Moles/Vol] 16.0 mmol/L Normal [facility] Comment on above: Performed By: #### T 7, LIPA, TSH, AMADOU, CMP #### [facility] [address] [place] [address] Dr. Krystle Heaton AST [Catalytic activity/Vol] 187 U/L Critically high 17-59 [facility] Comment on above: Performed By: #### T 7, LIPA, TSH, AMADOU, CMP #### [facility] [address] [place] [address] Dr. Krystle Heaton Bilirubin [Mass/Vol] 0.6 mg/dL Normal 0.2-1.3 The [facility] Comment on above: Performed By: #### T 7, LIPA, TSH, AMADOU, CMP #### [facility] [address] [place] [address] Dr. Krystle Heaton Calcium [Mass/Vol] 9.2 mg/dL Normal 8.4-10.2 The [facility] Comment on above: Performed By: #### T 7, LIPA, TSH, AMADOU, CMP #### [facility] [address] [place] [address] Dr. Krystle Heaton Chloride [Moles/Vol] 100 mmol/L Normal 98-107 The [facility] Comment on above: Performed By: #### T 7, LIPA, TSH, AMADOU, CMP #### [facility] [address] [place] [address] Dr. Krystle Heaton CO2 [Moles/Vol] 26.2 mmol/L Normal 22.0-30.0 The [facility] Comment on above: Performed By: #### T 7, LIPA, TSH, AMADOU, CMP #### [facility] [address] [place] [address] Dr. Krystle Heaton Creatinine [Mass/Vol] 1.07 mg/dL Normal 0.66-1.25 [facility] Comment on above: Performed By: #### T 7, LIPA, TSH, AMADOU, CMP #### [facility] [address] [place] [address] Dr. Krystle Heaton EGFR-AF FRENCH >60 Normal >=60 [facility] Comment on above: Performed By: #### T 7, LIPA, TSH, AMADOU, CMP #### [facility] [address] [place] [address] Dr. Krystle Heaton EGFR-NON AF FRENCH >60 Normal >=60 [facility] Comment on above: Performed By: #### T 7, LIPA, TSH, AMADOU, CMP #### [facility] [address] [place] [address] Dr. Krystle Heaton Globulin (S) [Mass/Vol] 3.8 g/dL Normal [facility] Comment on above: Performed By: #### T 7, LIPA, TSH, AMADOU, CMP #### [facility] [address] [place] [address] Dr. Krystle Heaton Glucose [Mass/Vol] 110 mg/dL Critically high 74-[address] [facility] Comment on above: Performed By: #### T 7, LIPA, TSH, AMADOU, CMP #### [facility] [address] [place] [address] Dr. Krystle Heaton Potassium [Moles/Vol] 4.2 mmol/L Normal 3.4-5.0 [facility] Comment on above: Performed By: #### T 7, LIPA, TSH, AMADOU, CMP #### [facility] [address] [place] [address] Dr. Krystle Heaton Protein [Mass/Vol] 7.6 g/dL Normal 6.1-8.2 [facility] Comment on above: Performed By: #### T 7, LIPA, TSH, AMADOU, CMP #### [facility] [address] [place] [address] Dr. Krystle Heaton Sodium [Moles/Vol] 138 mmol/L Normal 137-145 [facility] Comment on above: Performed By: #### T 7, LIPA, TSH, AMADOU, CMP #### [facility] [address] [place] [address] Dr. Krystle Heaton Urea nitrogen [Mass/Vol] 9.0 mg/dL Normal 9.0-20.0 [facility] Comment on above: Performed By: #### T 7, LIPA, TSH, AMADOU, CMP #### [facility] [address] [place] [address] Dr. Krystle Heaton Urea nitrogen/Creatinine [Mass ratio] 8.4 mg/mg Normal [facility] Comment on above: Performed By: #### T 7, LIPA, TSH, AMADOU, CMP #### [facility] [address] [place] [address] Dr. Krystle Heaton TSHon 03-30-2021 TSH 1.030 uIU/mL Normal 0.470-4.680 [facility] Comment on above: Performed By: #### T 7, LIPA, TSH, AMADOU, CMP #### [facility] [address] [place] [address] Dr. Krystle Heaton TSH RANGE SEE BELOW Normal [facility] Comment on above: Result Comment: <0.3 4 UIU/ml HYPERTHYROID 0.34-5.60 UIU/ml EUTHYROID >5.60 UIU/ml HYPOTHYROID Performed By: #### T 7, LIPA, TSH, AMADOU, CMP #### [facility] [address] [place] [address] Dr. Krystle Heaton CBC AUTO DIFFon 03-22-2021 BASO # 0.0 103/ul Normal 0.0-0.1 [facility] Comment on above: Performed By: #### T 7, LIPA, TSH, AMADOU, CMP #### [facility] [address] [place] [address] Dr. Krystle Heaton Basophils/100 WBC (Bld) 0.6 % Normal 0.2-2.0 [facility] Comment on above: Performed By: #### T 7, LIPA, TSH, AMADOU, CMP #### [facility] [address] [place] [address] Dr. Krystle Heaton EO # 0.1 103/ul Normal 0.0-0.7 [facility] Comment on above: Performed By: #### T 7, LIPA, TSH, AMADOU, CMP #### [facility] [address] [place] [address] Dr. Krystle Heaton Eosinophils/100 WBC (Bld) 2.1 % Normal 0.9-7.0 The [facility] Comment on above: Performed By: #### T 7, LIPA, TSH, AMADOU, CMP #### [facility] [address] [place] [address] Dr. Krystle Heaton Erythrocyte distribution width (RBC) [Ratio] 12.7 % Normal 11.0-15.0 [facility] Comment on above: Performed By: #### T 7, LIPA, TSH, AMADOU, CMP #### [facility] [address] [place] [address] Dr. Krystle Heaton Hematocrit (Bld) [Volume fraction] 37.5 % Critically low 42.0-54.0 [facility] Comment on above: Performed By: #### T 7, LIPA, TSH, AMADOU, CMP #### [facility] [address] [place] [address] Dr. Krystle Heaton Hemoglobin (Bld) [Mass/Vol] 13.1 g/dL Critically low 14.0-18.0 The [facility] Comment on above: Performed By: #### T 7, LIPA, TSH, AMADOU, CMP #### [facility] [address] [place] [address] Dr. Krystle Heaton IG # 0.01 10e3/ul Normal 0.00-0.03 [facility] Comment on above: Performed By: #### T 7, LIPA, TSH, AMADOU, CMP #### [facility] [address] [place] [address] Dr. Krystle Heaton IG % 0.3 % Normal 0.0-0.5 The [facility] Comment on above: Performed By: #### T 7, LIPA, TSH, AMADOU, CMP #### [facility] [address] [place] [address] Dr. Krystle Heaton LYMPH # 1.2 103/ul Normal 1.2-3.8 The [facility] Comment on above: Performed By: #### T 7, LIPA, TSH, AMADOU, CMP #### [facility] [address] [place] [address] Dr. Krystle Heaton Lymphocytes/100 WBC (Bld) 35.7 % Normal 20.5-60.0 The [facility] Comment on above: Performed By: #### T 7, LIPA, TSH, AMADOU, CMP #### [facility] [address] [place] [address] Dr. Krystle Heaton MANUAL DIFF REQ NO Normal [facility] Comment on above: Performed By: #### T 7, LIPA, TSH, AMADOU, CMP #### [facility] [address] [place] [address] Dr. Krystle Heaton MCH (RBC) [Entitic mass] 37.0 pg Critically high 25.9-34.0 [facility] Comment on above: Performed By: #### T 7, LIPA, TSH, AMADOU, CMP #### [facility] [address] [place] [address] Dr. Krystle Heaton MCHC (RBC) [Mass/Vol] 34.9 g/dL Normal 29.9-35.2 [facility] Comment on above: Performed By: #### T 7, LIPA, TSH, AMADOU, CMP #### [facility] [address] [place] [address] Dr. Krystle Heaton MCV (RBC) [Entitic vol] 105.9 fL Critically high 80.0-94.0 [facility] Comment on above: Performed By: #### T 7, LIPA, TSH, AMADOU, CMP #### [facility] [address] [place] [address] Dr. Krystle Heaton MONO # 0.2 103/ul Critically low 0.3-0.8 [facility] Comment on above: Performed By: #### T 7, LIPA, TSH, AMADOU, CMP #### [facility] [address] [place] [address] Dr. Krystle Heaton Monocytes/100 WBC (Bld) 6.8 % Normal 1.7-12.0 [facility] Comment on above: Performed By: #### T 7, LIPA, TSH, AMADOU, CMP #### [facility] [address] [place] [address] Dr. Krystle Heaton NEUT # 1.8 103/ul Normal 1.4-6.5 The [facility] Comment on above: Performed By: #### T 7, LIPA, TSH, AMADOU, CMP #### [facility] [address] [place] [address] Dr. Krystle Heaton Neutrophils/100 WBC (Bld) 54.5 % Normal 43.0-75.0 [facility] Comment on above: Performed By: #### T 7, LIPA, TSH, AMADOU, CMP #### [facility] [address] [place] [address] Dr. Krystle Heaton Platelet mean volume (Bld) [Entitic vol] 10.4 fL Normal 9.5-13.5 The [facility] Comment on above: Performed By: #### T 7, LIPA, TSH, AMADOU, CMP #### [facility] [address] [place] [address] Dr. Kyrstle Heaton PLT 126 103/ul Critically low 150-450 [facility] Comment on above: Performed By: #### T 7, LIPA, TSH, AMADOU, CMP #### [facility] [address] [place] [address] Dr. Krystle Heaton RBC 3.54 106/ul Critically low 4.70-6.10 [facility] Comment on above: Performed By: #### T 7, LIPA, TSH, AMADOU, CMP #### [facility] [address] [place] [address] Dr. Krystle Heaton WBC 3.4 103/ul Critically low 4.0-11.0 [facility] Comment on above: Performed By: #### T 7, LIPA, TSH, AMADOU, CMP #### [facility] [address] [place] [address] Dr. Krystle Heaton FERRITINon 03-22-2021 Ferritin [Mass/Vol] ng/mL Critically high 17.9-464.0 [facility] Comment on above: Performed By: #### T 7, LIPA, TSH, AMADOU, CMP #### [facility] [address] [place] [address] Dr. Krystle Heaton FREE T4on 03-22-2021 Free T4 [Mass/Vol] 0.78 ng/dL Normal 0.78-2.19 [facility] Comment on above: Performed By: #### T 7, LIPA, TSH, AMADOU, CMP #### [facility] [address] [place] [address] Dr. Krystle Heaton IRON AND TIBCon 03-22-2021 % SATURATION 106.0 % Normal [facility] Comment on above: Performed By: #### T 7, LIPA, TSH, AMADOU, CMP #### [facility] [facility] [address] [place] [address] Dr. Krystle Heaton Iron [Mass/Vol] 233.0 ug/dL Critically high 49.0-181.0 [facility] Comment on above: Performed By: #### T 7, LIPA, TSH, AMADOU, CMP #### [facility] [address] [place] [address] Dr. Krystle Heaton TIBC DIRECT 220.0 ug/dL Critically low 261.0-497.0 [facility] Comment on above: Performed By: #### T 7, LIPA, TSH, AMADOU, CMP #### [facility] [address] [place] [address] Dr. Krystle Heaton PROF 14(COMP METB)on 021 Albumin [Mass/Vol] 3.5 g/dL Normal 3.5-5.0 [facility] Comment on above: Performed By: #### T 7, LIPA, TSH, AMADOU, CMP #### [facility] [address] [place] [address] Dr. Krystle Heaton Albumin/Globulin [Mass ratio] 1.0 {ratio} Normal [facility] Comment on above: Performed By: #### T 7, LIPA, TSH, AMADOU, CMP #### [facility] [address] [place] [address] Dr. Krystle Heaton ALP [Catalytic activity/Vol] 77 U/L Normal 38-126 [facility] Comment on above: Performed By: #### T 7, LIPA, TSH, AMADOU, CMP #### [facility] [address] [place] [address] Dr. Krystle Heaton ALT [Catalytic activity/Vol] 95 U/L Critically high 21-72 [facility] Comment on above: Performed By: #### T 7, LIPA, TSH, AMADOU, CMP #### [facility] [address] [place] [address] Dr. Krystle Heaton Anion gap [Moles/Vol] 17.3 mmol/L Normal [facility] Comment on above: Performed By: #### T 7, LIPA, TSH, AMADOU, CMP #### [facility] [address] [place] [address] Dr. Krystle Heaton AST [Catalytic activity/Vol] 161 U/L Critically high 17-59 [facility] Comment on above: Performed By: #### T 7, LIPA, TSH, AMADOU, CMP #### [facility] [address] [place] [address] Dr. Krystle Heaton Bilirubin [Mass/Vol] 0.8 mg/dL Normal 0.2-1.3 [facility] Comment on above: Performed By: #### T 7, LIPA, TSH, AMADOU, CMP #### [facility] [address] [place] [address] Dr. Krystle Heaton Calcium [Mass/Vol] 8.5 mg/dL Normal 8.4-10.2 [facility] Comment on above: Performed By: #### T 7, LIPA, TSH, AMADOU, CMP #### [facility] [address] [place] [address] Dr. Krystle Heaton Chloride [Moles/Vol] 101 mmol/L Normal 98-107 [facility] Comment on above: Performed By: #### T 7, LIPA, TSH, AMADOU, CMP #### [facility] [address] [place] [address] Dr. Krystle Heaton CO2 [Moles/Vol] 22.6 mmol/L Normal 22.0-30.0 [facility] Comment on above: Performed By: #### T 7, LIPA, TSH, AMADOU, CMP #### [facility] [address] [place] [address] Dr. Krystle Heaton Creatinine [Mass/Vol] 0.98 mg/dL Normal 0.66-1.25 [facility] Comment on above: Performed By: #### T 7, LIPA, TSH, AMADOU, CMP #### [facility] [address] [place] [address] Dr. Krystle Heaton EGFR-AF FRENCH >60 Normal >=60 [facility] Comment on above: Performed By: #### T 7, LIPA, TSH, AMADOU, CMP #### [facility] [address] [place] [address] Dr. Krystle Heaton EGFR-NON AF FRENCH >60 Normal >=60 [facility] Comment on above: Performed By: #### T 7, LIPA, TSH, AMADOU, CMP #### [facility] [address] [place] [address] Dr. Krystle Heaton Globulin (S) [Mass/Vol] 3.4 g/dL Normal [facility] Comment on above: Performed By: #### T 7, LIPA, TSH, AMADOU, CMP #### [facility] [address] [place] [address] Dr. Krystle Heaton Glucose [Mass/Vol] 103 mg/dL Normal 74-106 [facility] Comment on above: Performed By: #### T 7, LIPA, TSH, AMADOU, CMP #### [facility] [address] [place] [address] Dr. Krystle Heaton Potassium [Moles/Vol] 3.9 mmol/L Normal 3.4-5.0 [facility] Comment on above: Performed By: #### T 7, LIPA, TSH, AMADOU, CMP #### [facility] [address] [place] [address] Dr. Krystle Heaton Protein [Mass/Vol] 6.9 g/dL Normal 6.1-8.2 [facility] Comment on above: Performed By: #### T 7, LIPA, TSH, AMADOU, CMP #### [facility] [address] [place] [address] Dr. Krystle Heaton Sodium [Moles/Vol] 137 mmol/L Normal 137-145 [facility] Comment on above: Performed By: #### T 7, LIPA, TSH, AMADOU, CMP #### [facility] [address] [place] [address] Dr. Krystle Heaton Urea nitrogen [Mass/Vol] 8.0 mg/dL Critically low 9.0-20.0 [facility] Comment on above: Performed By: #### T 7, LIPA, TSH, AMADOU, CMP #### [facility] [address] [place] [address] Dr. Krystle Heaton Urea nitrogen/Creatinine [Mass ratio] 8.2 mg/mg Normal [facility] Comment on above: Performed By: #### T 7, LIPA, TSH, AMADOU, CMP #### [facility] [address] [place] [address] Dr. Krystle Heaton TSHon 03-22-2021 TSH 2.059 uIU/mL Normal 0.470-4.680 [facility] Comment on above: Performed By: #### T 7, LIPA, TSH, AMADOU, CMP #### [facility] [address] [place] [address] Dr. Krystle Heaton TSH RANGE SEE BELOW Normal [facility] Comment on above: Result Comment: <0.3 4 UIU/ml HYPERTHYROID 0.34-5.60 UIU/ml EUTHYROID >5.60 UIU/ml HYPOTHYROID Performed By: #### T 7, LIPA, TSH, AMADOU, CMP #### [facility] [address] [place] [address] Dr. Krystle Heaton CBC AUTO DIFFon 03-17-2021 BASO # 0.0 103/ul Normal 0.0-0.1 [facility] Comment on above: Performed By: #### T 7, LIPA, TSH, AMADOU, CMP #### [facility] [address] [place] [address] Dr. Krystle Heaton Basophils/100 WBC (Bld) 0.3 % Normal 0.2-2.0 [facility] Comment on above: Performed By: #### T 7, LIPA, TSH, AMADOU, CMP #### [facility] [address] [place] [address] Dr. Krystle Heaton EO # 0.1 103/ul Normal 0.0-0.7 [facility] Comment on above: Performed By: #### T 7, LIPA, TSH, AMADOU, CMP #### [facility] [address] [place] [address] Dr. Krystle Heaton Eosinophils/100 WBC (Bld) 1.8 % Normal 0.9-7.0 [facility] Comment on above: Performed By: #### T 7, LIPA, TSH, AMADOU, CMP #### [facility] [address] [place] [address] Dr. Krystle Heaton Erythrocyte distribution width (RBC) [Ratio] 12.5 % Normal 11.0-15.0 [facility] Comment on above: Performed By: #### T 7, LIPA, TSH, AMADOU, CMP #### [facility] [address] [place] [address] Dr. Krystle Heaton Hematocrit (Bld) [Volume fraction] 40.9 % Critically low 42.0-54.0 [facility] Comment on above: Performed By: #### T 7, LIPA, TSH, AMADOU, CMP #### [facility] [address] [place] [address] Dr. Krystle Heaton Hemoglobin (Bld) [Mass/Vol] 14.1 g/dL Normal 14.0-18.0 [facility] Comment on above: Performed By: #### T 7, LIPA, TSH, AMADOU, CMP #### [facility] [address] [place] [address] Dr. Krystle Heaton IG # 0.01 10e3/ul Normal 0.00-0.03 [facility] Comment on above: Performed By: #### T 7, LIPA, TSH, AMADOU, CMP #### [facility] [address] [place] [address] Dr. Krystle Heaton IG % 0.3 % Normal 0.0-0.5 [facility] Comment on above: Performed By: #### T 7, LIPA, TSH, AMADOU, CMP #### [facility] [address] [place] [address] Dr. Krystle Heaton LYMPH # 1.3 103/ul Normal 1.2-3.8 [facility] Comment on above: Performed By: #### T 7, LIPA, TSH, AMADOU, CMP #### [facility] [address] [place] [address] Dr. Krystle Heaton Lymphocytes/100 WBC (Bld) 41.1 % Normal 20.5-60.0 [facility] Comment on above: Performed By: #### T 7, LIPA, TSH, AMADOU, CMP #### [facility] [address] [place] [address] Dr. Krystle Heaton MANUAL DIFF REQ NO Normal [facility] Comment on above: Performed By: #### T 7, LIPA, TSH, AMADOU, CMP #### [facility] [address] [place] [address] Dr. Krystle Heaton MCH (RBC) [Entitic mass] 36.3 pg Critically high 25.9-34.0 [facility] Comment on above: Performed By: #### T 7, LIPA, TSH, AMADOU, CMP #### [facility] [address] [place] [address] Dr. Krystle Heaton MCHC (RBC) [Mass/Vol] 34.5 g/dL Normal 29.9-35.2 [facility] Comment on above: Performed By: #### T 7, LIPA, TSH, AMADOU, CMP #### [facility] [address] [place] [address] Dr. Krystle Heaton MCV (RBC) [Entitic vol] 105.4 fL Critically high 80.0-94.0 [facility] Comment on above: Performed By: #### T 7, LIPA, TSH, AMADOU, CMP #### [facility] [address] [place] [address] Dr. Krystle Heaton MONO # 0.3 103/ul Normal 0.3-0.8 [facility] Comment on above: Performed By: #### T 7, LIPA, TSH, AMADOU, CMP #### [facility] [address] [place] [address] Dr. Krystle Heaton Monocytes/100 WBC (Bld) 8.0 % Normal 1.7-12.0 [facility] Comment on above: Performed By: #### T 7, LIPA, TSH, AMADOU, CMP #### [facility] [address] [place] [address] Dr. Krystle Heaton NEUT # 1.6 103/ul Normal 1.4-6.5 [facility] Comment on above: Performed By: #### T 7, LIPA, TSH, AMADOU, CMP #### [facility] [address] [place] [address] Dr. Krystle Heaton Neutrophils/100 WBC (Bld) 48.5 % Normal 43.0-75.0 [facility] Comment on above: Performed By: #### T 7, LIPA, TSH, AMADOU, CMP #### [facility] [address] [place] [address] Dr. Krystle Heaton Platelet mean volume (Bld) [Entitic vol] 10.6 fL Normal 9.5-13.5 [facility] Comment on above: Performed By: #### T 7, LIPA, TSH, AMADOU, CMP #### [facility] [address] [place] [address] Dr. Krystle Heaton PLT 134 103/ul Critically low 150-450 [facility] Comment on above: Performed By: #### T 7, LIPA, TSH, AMADOU, CMP #### [facility] [address] [place] [address] Dr. Krystle Heaton RBC 3.88 106/ul Critically low 4.70-6.10 [facility] Comment on above: Result Comment: Macr ocytosis 1+ Stomatocytes 1+ Performed By: #### T 7, LIPA, TSH, AMADOU, CMP #### [facility] [address] [place] [address] Dr. Krystle Heaton WBC 3.3 103/ul Critically low 4.0-11.0 [facility] Comment on above: Performed By: #### T 7, LIPA, TSH, AMADOU, CMP #### [facility] [address] [place] [address] Dr. Krystle Heaton FERRITINon 03-17-2021 Ferritin [Mass/Vol] ng/mL Critically high 17.9-464.0 [facility] Comment on above: Performed By: #### T 7, LIPA, TSH, AMADOU, CMP #### [facility] [address] [place] [address] Dr. Krystle Heaton FREE T4on 03-17-2021 Free T4 [Mass/Vol] 0.82 ng/dL Normal 0.78-2.19 [facility] Comment on above: Performed By: #### T 7, LIPA, TSH, AMADOU, CMP #### [facility] [address] [place] [address] Dr. Krystle Heaton IRON AND TIBCon 03-17-2021 % SATURATION 100.8 % Normal [facility] Comment on above: Performed By: #### T 7, LIPA, TSH, AMADOU, CMP #### [facility] [address] [place] [address] Dr. Krystle Heaton Iron [Mass/Vol] 249.0 ug/dL Critically high 49.0-181.0 [facility] Comment on above: Performed By: #### T 7, LIPA, TSH, AMADOU, CMP #### [facility] [address] [place] [address] Dr. Krystle Heaton TIBC DIRECT 247.0 ug/dL Critically low 261.0-497.0 [facility] Comment on above: Performed By: #### T 7, LIPA, TSH, AMADOU, CMP #### [facility] [address] [place] [address] Dr. Krystle Heaton PROF 14(COMP METB)on 021 Albumin [Mass/Vol] 3.7 g/dL Normal 3.5-5.0 [facility] Comment on above: Performed By: #### T 7, LIPA, TSH, AMADOU, CMP #### [facility] [address] [address] [address] Krystle Heaton Albumin/Globulin [Mass ratio] 1.1 {ratio} Normal [facility] Comment on above: Performed By: #### T 7, LIPA, TSH, AMADOU, CMP #### [facility] [address] [address] [address] Krystle Heaton ALP [Catalytic activity/Vol] 78 U/L Normal 38-126 [facility] Comment on above: Performed By: #### T 7, LIPA, TSH, AMADOU, CMP #### [facility] [address] [place] [address] Dr. Krystle Heaton ALT [Catalytic activity/Vol] 100 U/L Critically high 21-72 [facility] Comment on above: Performed By: #### T 7, LIPA, TSH, AMADOU, CMP #### [facility] [address] [address] [address] Krystle Heaton Anion gap [Moles/Vol] 14.4 mmol/L Normal [facility] Comment on above: Performed By: #### T 7, LIPA, TSH, AMADOU, CMP #### [facility] [address] [place] [address] Dr. Krystle Heaton AST [Catalytic activity/Vol] 158 U/L Critically high 17-59 [facility] Comment on above: Performed By: #### T 7, LIPA, TSH, AMADOU, CMP #### [facility] [address] [address] [address] Krystle Heaton Bilirubin [Mass/Vol] 0.6 mg/dL Normal 0.2-1.3 [facility] Comment on above: Performed By: #### T 7, LIPA, TSH, AMADOU, CMP #### [facility] [address] [place] [address] Dr. Krystle Heaton Calcium [Mass/Vol] 8.9 mg/dL Normal 8.4-10.2 [facility] Comment on above: Performed By: #### T 7, LIPA, TSH, AMADOU, CMP #### [facility] [address] [address] [address] Krystle Heaton Chloride [Moles/Vol] 100 mmol/L Normal 98-107 [facility] Comment on above: Performed By: #### T 7, LIPA, TSH, AMADOU, CMP #### [facility] [address] [address] [address] Krystle Heaton CO2 [Moles/Vol] 27.3 mmol/L Normal 22.0-30.0 [facility] Comment on above: Performed By: #### T 7, LIPA, TSH, AMADOU, CMP #### [facility] [address] [place] [address] Dr. Krystle Heaton Creatinine [Mass/Vol] 1.08 mg/dL Normal 0.66-1.25 [facility] Comment on above: Performed By: #### T 7, LIPA, TSH, AMADOU, CMP #### [facility] [address] [place] [address] Dr. Krystle Heaton EGFR-AF FRENCH >60 Normal >=60 [facility] Comment on above: Performed By: #### T 7, LIPA, TSH, AMADOU, CMP #### [facility] [address] [place] [address] Dr. Krystle Heaotn EGFR-NON AF FRENCH >60 Normal >=60 [facility] Comment on above: Performed By: #### T 7, LIPA, TSH, AMADOU, CMP #### [facility] [address] [place] [address] Dr. Krystle Heaton Globulin (S) [Mass/Vol] 3.5 g/dL Normal [facility] Comment on above: Performed By: #### T 7, LIPA, TSH, AMADOU, CMP #### [facility] [address] [place] [address] Dr. Krystle Heaton Glucose [Mass/Vol] 115 mg/dL Critically high 74-[address] [facility] Comment on above: Performed By: #### T 7, LIPA, TSH, AMADOU, CMP #### [facility] [address] [address] [address] Krystle Heaton Potassium [Moles/Vol] 3.7 mmol/L Normal 3.4-5.0 [facility] Comment on above: Performed By: #### T 7, LIPA, TSH, AMADOU, CMP #### [facility] [address] [place] [address] Dr. Krystle Heaton Protein [Mass/Vol] 7.2 g/dL Normal 6.1-8.2 [facility] Comment on above: Performed By: #### T 7, LIPA, TSH, AMADOU, CMP #### [facility] [address] [place] [address] Dr. Krystle Heaton Sodium [Moles/Vol] 138 mmol/L Normal 137-145 [facility] Comment on above: Performed By: #### T 7, LIPA, TSH, AMADOU, CMP #### [facility] [address] [place] [address] Dr. Krystle Heaton Urea nitrogen [Mass/Vol] 10.0 mg/dL Normal 9.0-20.0 [facility] Comment on above: Performed By: #### T 7, LIPA, TSH, AMADOU, CMP #### [facility] [address] [place] [address] Dr. Krystle Heaton Urea nitrogen/Creatinine [Mass ratio] 9.3 mg/mg Normal [facility] Comment on above: Performed By: #### T 7, LIPA, TSH, AMADOU, CMP #### [facility] [address] [place] [address] Dr. Krystle Heaton TSHon 03-17-2021 TSH 1.904 uIU/mL Normal 0.470-4.680 [facility] [place] Comment on above: Performed By: #### T 7, LIPA, TSH, AMADOU, CMP #### [facility] [address] [place] [address] Dr. Krystle Heaton TSH RANGE SEE BELOW Normal [facility] Comment on above: Result Comment: <0.3 4 UIU/ml HYPERTHYROID 0.34-5.60 UIU/ml EUTHYROID >5.60 UIU/ml HYPOTHYROID Performed By: #### T 7, LIPA, TSH, AMADOU, CMP #### [facility] [address] [place] [address] Dr. Krystle Heaton CBC AUTO DIFFon 03-08-2021 BASO # 0.0 103/ul Normal 0.0-0.1 [facility] Comment on above: Performed By: #### T 7, LIPA, TSH, AMADOU, CMP #### [facility] [address] [place] [address] Dr. Krystle Heaton Basophils/100 WBC (Bld) 0.8 % Normal 0.2-2.0 [facility] Comment on above: Performed By: #### T 7, LIPA, TSH, AMADOU, CMP #### [facility] [address] [place] [address] Dr. Krystle Heaton EO # 0.1 103/ul Normal 0.0-0.7 [facility] Comment on above: Performed By: #### T 7, LIPA, TSH, AMADOU, CMP #### [facility] [address] [place] [address] Dr. Krystle Heaton Eosinophils/100 WBC (Bld) 1.5 % Normal 0.9-7.0 [facility] Comment on above: Performed By: #### T 7, LIPA, TSH, AMADOU, CMP #### [facility] [address] [place] [address] Dr. Krystle Heaton Erythrocyte distribution width (RBC) [Ratio] 12.2 % Normal 11.0-15.0 [facility] Comment on above: Performed By: #### T 7, LIPA, TSH, AMADOU, CMP #### [facility] [address] [place] [address] Dr. Krystle Heaton Hematocrit (Bld) [Volume fraction] 45.5 % Normal 42.0-54.0 [facility] Comment on above: Performed By: #### T 7, LIPA, TSH, AMADOU, CMP #### [facility] [address] [place] [address] Dr. Krystle Heaton Hemoglobin (Bld) [Mass/Vol] 15.9 g/dL Normal 14.0-18.0 [facility] Comment on above: Performed By: #### T 7, LIPA, TSH, AMADOU, CMP #### [facility] [address] [place] [address] Dr. Krystle Heaton IG # 0.01 10e3/ul Normal 0.00-0.03 [facility] Comment on above: Performed By: #### T 7, LIPA, TSH, AMADOU, CMP #### [facility] [address] [place] [address] Dr. Krystle Heaton IG % 0.2 % Normal 0.0-0.5 [facility] Comment on above: Performed By: #### T 7, LIPA, TSH, AMADOU, CMP #### [facility] [address] [place] [address] Dr. Krystle Heaton LYMPH # 1.8 103/ul Normal 1.2-3.8 [facility] Comment on above: Performed By: #### T 7, LIPA, TSH, AMADOU, CMP #### [facility] [address] [place] [address] Dr. Krystle Heaton Lymphocytes/100 WBC (Bld) 37.8 % Normal 20.5-60.0 [facility] Comment on above: Performed By: #### T 7, LIPA, TSH, AMADOU, CMP #### [facility] [address] [place] [address] Dr. Krystle Heaton MANUAL DIFF REQ NO Normal [facility] Comment on above: Performed By: #### T 7, LIPA, TSH, AMADOU, CMP #### [facility] [address] [place] [address] Dr. Krystle Heaton MCH (RBC) [Entitic mass] 36.4 pg Critically high 25.9-34.0 [facility] Comment on above: Performed By: #### T 7, LIPA, TSH, AMADOU, CMP #### [facility] [address] [place] [address] Dr. Krystle Heaton MCHC (RBC) [Mass/Vol] 34.9 g/dL Normal 29.9-35.2 [facility] Comment on above: Performed By: #### T 7, LIPA, TSH, AMADOU, CMP #### [facility] [address] [place] [address] Dr. Krystle Heaton MCV (RBC) [Entitic vol] 104.1 fL Critically high 80.0-94.0 [facility] Comment on above: Performed By: #### T 7, LIPA, TSH, AMADOU, CMP #### [facility] [address] [place] [address] Dr. Krystle Heaton MONO # 0.4 103/ul Normal 0.3-0.8 [facility] Comment on above: Performed By: #### T 7, LIPA, TSH, AMADOU, CMP #### [facility] [address] [place] [address] Dr. Krystle Heaton Monocytes/100 WBC (Bld) 8.3 % Normal 1.7-12.0 [facility] Comment on above: Performed By: #### T 7, LIPA, TSH, AMADOU, CMP #### [facility] [address] [place] [address] Dr. Krystle Heaton NEUT # 2.4 103/ul Normal 1.4-6.5 The [facility] Comment on above: Performed By: #### T 7, LIPA, TSH, AMADOU, CMP #### [facility] [address] [place] [address] Dr. Krystle Heaton Neutrophils/100 WBC (Bld) 51.4 % Normal 43.0-75.0 The [facility] Comment on above: Performed By: #### T 7, LIPA, TSH, AMADOU, CMP #### [facility] [address] [place] [address] Dr. Krystle Heaton Platelet mean volume (Bld) [Entitic vol] 10.8 fL Normal 9.5-13.5 The [facility] Comment on above: Performed By: #### T 7, LIPA, TSH, AMADOU, CMP #### [facility] [address] [place] [address] Dr. Krystle Heaton PLT 175 103/ul Normal 150-450 The [facility] Comment on above: Performed By: #### T 7, LIPA, TSH, AMADOU, CMP #### [facility] [address] [place] [address] Dr. Krystle Heaton RBC 4.37 106/ul Critically low 4.70-6.10 [facility] Comment on above: Performed By: #### T 7, LIPA, TSH, AMADOU, CMP #### [facility] [address] [place] [address] Dr. Krystle Heaton WBC 4.7 103/ul Normal 4.0-11.0 [facility] Comment on above: Performed By: #### T 7, LIPA, TSH, AMADOU, CMP #### [facility] [address] [place] [address] Dr. Krystle Heaton FERRITINon 03-08-2021 Ferritin [Mass/Vol] ng/mL Critically high 17.9-464.0 [facility] Comment on above: Performed By: #### T 7, LIPA, TSH, AMADOU, CMP #### [facility] [address] [place] [address] Dr. Krystle Heaton FREE T4on 03-08-2021 Free T4 [Mass/Vol] 0.73 ng/dL Critically low 0.78-2.19 [facility] Comment on above: Performed By: #### T 7, LIPA, TSH, AMADOU, CMP #### [facility] [address] [place] [address] Dr. Krystle Heaton IRON AND TIBCon 03-08-2021 % SATURATION 102.2 % Normal [facility] Comment on above: Performed By: #### T 7, LIPA, TSH, AMADOU, CMP #### [facility] [address] [place] [address] Dr. Krystle Heaton Iron [Mass/Vol] 279.0 ug/dL Critically high 49.0-181.0 [facility] Comment on above: Performed By: #### T 7, LIPA, TSH, AMADOU, CMP #### [facility] [address] [place] [address] Dr. Krystle Heaton TIBC DIRECT 273.0 ug/dL Normal 261.0-497.0 [facility] Comment on above: Performed By: #### T 7, LIPA, TSH, AMADOU, CMP #### [facility] [address] [address] [address] Krystle Heaton PROF 14(COMP METB)on 021 Albumin [Mass/Vol] 3.6 g/dL Normal 3.5-5.0 [facility] Comment on above: Performed By: #### T 7, LIPA, TSH, AMADOU, CMP #### [facility] [address] [place] [address] Dr. Krystle Heaton Albumin/Globulin [Mass ratio] 1.0 {ratio} Normal [facility] Comment on above: Performed By: #### T 7, LIPA, TSH, AMADOU, CMP #### [facility] [address] [place] [address] Dr. Krystle Heaton ALP [Catalytic activity/Vol] 68 U/L Normal 38-126 [facility] Comment on above: Performed By: #### T 7, LIPA, TSH, AMADOU, CMP #### [facility] [address] [address] [address] Krystle Heaton ALT [Catalytic activity/Vol] 58 U/L Normal 21-72 [facility] Comment on above: Performed By: #### T 7, LIPA, TSH, AMADOU, CMP #### [facility] [address] [address] [address] Krystle Heaton Anion gap [Moles/Vol] 15.5 mmol/L Normal [facility] Comment on above: Performed By: #### T 7, LIPA, TSH, AMADOU, CMP #### [facility] [address] [address] [address] Krystle Heaton AST [Catalytic activity/Vol] 56 U/L Normal 17-59 [facility] Comment on above: Performed By: #### T 7, LIPA, TSH, AMADOU, CMP #### [facility] [address] [address] [address] Krystle Heaton Bilirubin [Mass/Vol] 0.7 mg/dL Normal 0.2-1.3 [facility] Comment on above: Performed By: #### T 7, LIPA, TSH, AMADOU, CMP #### [facility] [address] [place] [address] Dr. Krystle Heaton Calcium [Mass/Vol] 8.9 mg/dL Normal 8.4-10.2 The [facility] Comment on above: Performed By: #### T 7, LIPA, TSH, AMADOU, CMP #### [facility] [address] [place] [address] Dr. Krystle Heaton Chloride [Moles/Vol] 100 mmol/L Normal 98-107 The [facility] Comment on above: Performed By: #### T 7, LIPA, TSH, AMADOU, CMP #### [facility] [address] [place] [address] Dr. Krystle Heaton CO2 [Moles/Vol] 26.6 mmol/L Normal 22.0-30.0 The [facility] Comment on above: Performed By: #### T 7, LIPA, TSH, AMADOU, CMP #### [facility] [address] [place] [address] Dr. Krystle Heaton Creatinine [Mass/Vol] 1.12 mg/dL Normal 0.66-1.25 [facility] Comment on above: Performed By: #### T 7, LIPA, TSH, AMADOU, CMP #### [facility] [address] [place] [address] Dr. Krystle Heaton EGFR-AF FRENCH >60 Normal >=60 [facility] Comment on above: Performed By: #### T 7, LIPA, TSH, AMADOU, CMP #### [facility] [address] [place] [address] Dr. Krystle Heaton EGFR-NON AF FRENCH >60 Normal >=60 [facility] Comment on above: Performed By: #### T 7, LIPA, TSH, AMADOU, CMP #### [facility] [address] [place] [address] Dr. Krystle Heaton Globulin (S) [Mass/Vol] 3.7 g/dL Normal The [facility] Comment on above: Performed By: #### T 7, LIPA, TSH, AMADOU, CMP #### [facility] [address] [place] [address] Dr. Krystle Heaton Glucose [Mass/Vol] 101 mg/dL Normal 74-106 The [facility] Comment on above: Performed By: #### T 7, LIPA, TSH, AMADOU, CMP #### [facility] [address] [place] [address] Dr. Krystle Heaton Potassium [Moles/Vol] 4.1 mmol/L Normal 3.4-5.0 [facility] Comment on above: Performed By: #### T 7, LIPA, TSH, AMADOU, CMP #### [facility] [address] [place] [address] Dr. Krystle Heaotn Protein [Mass/Vol] 7.3 g/dL Normal 6.1-8.2 The [facility] Comment on above: Performed By: #### T 7, LIPA, TSH, AMADOU, CMP #### [facility] [address] [place] [address] Dr. Krystle Heaton Sodium [Moles/Vol] 138 mmol/L Normal 137-145 [facility] Comment on above: Performed By: #### T 7, LIPA, TSH, AMADOU, CMP #### [facility] [address] [place] [address] Dr. Krystle Heaton Urea nitrogen [Mass/Vol] 17.0 mg/dL Normal 9.0-20.0 [facility] Comment on above: Performed By: #### T 7, LIPA, TSH, AMADOU, CMP #### [facility] [address] [place] [address] Dr. Krystle Heaton Urea nitrogen/Creatinine [Mass ratio] 15.2 mg/mg Normal The [facility] Comment on above: Performed By: #### T 7, LIPA, TSH, AMADOU, CMP #### [facility] [address] [place] [address] Dr. Krystle Heaton TSHon 03-08-2021 TSH 1.781 uIU/mL Normal 0.470-4.680 The [facility] Comment on above: Performed By: #### T 7, LIPA, TSH, AMADOU, CMP #### [facility] [address] [place] [address] Dr. Krystle Heaton TSH RANGE SEE BELOW Normal The [facility] Comment on above: Result Comment: <0.3 4 UIU/ml HYPERTHYROID 0.34-5.60 UIU/ml EUTHYROID >5.60 UIU/ml HYPOTHYROID Performed By: #### T 7, LIPA, TSH, AMADOU, CMP #### [facility] [address] [place] [address] Dr. Krystle Heaton FERRITINon 02-03-2021 Ferritin [Mass/Vol] ng/mL Critically high 17.9-464.0 The [facility] Comment on above: Performed By: #### C BC #### [facility] [address] [place] [address] Billy Devlin [facility] SARS-CoV-2 (COVID-19) RNA JIMBO+probe Ql (Unsp spec) Not detected Normal NOT DETECTED The [facility] Comment on above: Result Comment: This test is not yet approved or cleared by the [place] FDA. When there are no FDA-approved or cleared tests available, and other criteria are met, FDA can make tests available under an emergency access mechanism called an Emergency Use Authorization (EUA). The EUA for this test is supported by the [place] of Health and Human Service's (HHS's) declaration [...] T 7, LIPA, TSH, AMADOU, CMP #### [facility] [address] [place] [address] Dr. Krystle Heaton CBC AUTO DIFFon 01-06-2021 BASO # 0.0 103/ul Normal 0.0-0.1 [facility] Comment on above: Performed By: #### T 7, LIPA, TSH, AMADOU, CMP #### [facility] [address] [place] [address] Dr. Krystle Heaton Basophils/100 WBC (Bld) 1.0 % Normal 0.2-2.0 The [facility] Comment on above: Performed By: #### T 7, LIPA, TSH, AMADOU, CMP #### [facility] [address] [place] [address] Dr. Krystle Heaton EO # 0.1 103/ul Normal 0.0-0.7 The [facility] Comment on above: Performed By: #### T 7, LIPA, TSH, AMADOU, CMP #### [facility] [address] [place] [address] Dr. Krystle Heaton Eosinophils/100 WBC (Bld) 2.5 % Normal 0.9-7.0 [facility] Comment on above: Performed By: #### T 7, LIPA, TSH, AMADOU, CMP #### [facility] [address] [place] [address] Dr. Krystle Heaton Erythrocyte distribution width (RBC) [Ratio] 13.7 % Normal 11.0-15.0 [facility] Comment on above: Performed By: #### T 7, LIPA, TSH, AMADOU, CMP #### [facility] [address] [place] [address] Dr. Krystle Heaton Hematocrit (Bld) [Volume fraction] 44.1 % Normal 42.0-54.0 [facility] Comment on above: Performed By: #### T 7, LIPA, TSH, AMADOU, CMP #### [facility] [address] [place] [address] Dr. Krystle Heaton Hemoglobin (Bld) [Mass/Vol] 15.0 g/dL Normal 14.0-18.0 [facility] Comment on above: Performed By: #### T 7, LIPA, TSH, AMADOU, CMP #### [facility] [address] [place] [address] Dr. Krystle Heaton IG # 0.02 10e3/ul Normal 0.00-0.03 [facility] Comment on above: Performed By: #### T 7, LIPA, TSH, AMADOU, CMP #### [facility] [address] [place] [address] Dr. Krystle Heaton IG % 0.5 % Normal 0.0-0.5 [facility] Comment on above: Performed By: #### T 7, LIPA, TSH, AMADOU, CMP #### [facility] [address] [place] [address] Dr. Krystle Heaton LYMPH # 1.6 103/ul Normal 1.2-3.8 The [facility] Comment on above: Performed By: #### T 7, LIPA, TSH, AMADOU, CMP #### [facility] [address] [place] [address] Dr. Krystle Heaton Lymphocytes/100 WBC (Bld) 40.7 % Normal 20.5-60.0 [facility] Comment on above: Performed By: #### T 7, LIPA, TSH, AMADOU, CMP #### [facility] [address] [place] [address] Dr. Krystle Heaton MANUAL DIFF REQ NO Normal [facility] Comment on above: Performed By: #### T 7, LIPA, TSH, AMADOU, CMP #### [facility] [address] [place] [address] Dr. Krystle Heaton MCH (RBC) [Entitic mass] 36.2 pg Critically high 25.9-34.0 [facility] Comment on above: Performed By: #### T 7, LIPA, TSH, AMADOU, CMP #### [facility] [address] [place] [address] Dr. Krystle Heaton MCHC (RBC) [Mass/Vol] 34.0 g/dL Normal 29.9-35.2 [facility] Comment on above: Performed By: #### T 7, LIPA, TSH, AMADOU, CMP #### [facility] [address] [place] [address] Dr. Krystle Heaton MCV (RBC) [Entitic vol] 106.5 fL Critically high 80.0-94.0 The [facility] Comment on above: Performed By: #### T 7, LIPA, TSH, AMADOU, CMP #### [facility] [address] [place] [address] Dr. Krystle Heaton MONO # 0.3 103/ul Normal 0.3-0.8 The [facility] Comment on above: Performed By: #### T 7, LIPA, TSH, AMADOU, CMP #### [facility] [address] [place] [address] Dr. Krystle Heaton Monocytes/100 WBC (Bld) 8.1 % Normal 1.7-12.0 The [facility] Comment on above: Performed By: #### T 7, LIPA, TSH, AMADOU, CMP #### [facility] [address] [place] [address] Dr. Krystle Heaton NEUT # 1.9 103/ul Normal 1.4-6.5 The [facility] Comment on above: Performed By: #### T 7, LIPA, TSH, AMADOU, CMP #### [facility] [address] [place] [address] Dr. Krystle Heaton Neutrophils/100 WBC (Bld) 47.2 % Normal 43.0-75.0 The [facility] Comment on above: Performed By: #### T 7, LIPA, TSH, AMADOU, CMP #### [facility] [address] [place] [address] Dr. Krystle Heaton Platelet mean volume (Bld) [Entitic vol] 11.6 fL Normal 9.5-13.5 The [facility] Comment on above: Performed By: #### T 7, LIPA, TSH, AMADOU, CMP #### [facility] [address] [place] [address] Dr. Krystle Heaton PLT 184 103/ul Normal 150-450 The [facility] Comment on above: Performed By: #### T 7, LIPA, TSH, AMADOU, CMP #### [facility] [address] [place] [address] Dr. Krystle Heaton RBC 4.14 106/ul Critically low 4.70-6.10 The [facility] Comment on above: Performed By: #### T 7, LIPA, TSH, AMADOU, CMP #### [facility] [address] [place] [address] Dr. Krystle Heaton WBC 4.0 103/ul Normal 4.0-11.0 The [facility] Comment on above: Performed By: #### T 7, LIPA, TSH, AMADOU, CMP #### [facility] [address] [place] [address] Dr. Krystle Heaton FERRITINon 01-06-2021 Ferritin [Mass/Vol] ng/mL Critically high 17.9-464.0 [facility] Comment on above: Performed By: #### H BSANS #### [facility] [address] [place] [address] Billy Devlin CBC AUTO DIFFon 12-09-2020 BASO # 0.0 103/ul Normal 0.0-0.1 The [facility] Comment on above: Performed By: #### T 7, LIPA, TSH, AMADOU, CMP #### [facility] [address] [place] [address] Dr. Krystle Heaton Basophils/100 WBC (Bld) 0.6 % Normal 0.2-2.0 The [facility] Comment on above: Performed By: #### T 7, LIPA, TSH, AMADOU, CMP #### [facility] [address] [place] [address] Dr. Krystle Heaton EO # 0.1 103/ul Normal 0.0-0.7 The [facility] Comment on above: Performed By: #### T 7, LIPA, TSH, AMADOU, CMP #### [facility] [address] [place] [address] Dr. Krystle Heaton Eosinophils/100 WBC (Bld) 2.6 % Normal 0.9-7.0 The [facility] Comment on above: Performed By: #### T 7, LIPA, TSH, AMADOU, CMP #### [facility] [address] [place] [address] Dr. Krystle Heaton Erythrocyte distribution width (RBC) [Ratio] 13.0 % Normal 11.0-15.0 [facility] Comment on above: Performed By: #### T 7, LIPA, TSH, AMADOU, CMP #### [facility] [address] [place] [address] Dr. Krystle Heaton Hematocrit (Bld) [Volume fraction] 46.2 % Normal 42.0-54.0 [facility] Comment on above: Performed By: #### T 7, LIPA, TSH, AMADOU, CMP #### [facility] [address] [place] [address] Dr. Krystle Heaton Hemoglobin (Bld) [Mass/Vol] 16.0 g/dL Normal 14.0-18.0 [facility] Comment on above: Performed By: #### T 7, LIPA, TSH, AMADOU, CMP #### [facility] [address] [place] [address] Dr. Krystle Heaton IG # 0.01 10e3/ul Normal 0.00-0.03 [facility] Comment on above: Performed By: #### T 7, LIPA, TSH, AMADOU, CMP #### [facility] [address] [place] [address] Dr. Krystle Heaton IG % 0.2 % Normal 0.0-0.5 [facility] Comment on above: Performed By: #### T 7, LIPA, TSH, AMADOU, CMP #### [facility] [address] [place] [address] Dr. Krystle Heaton LYMPH # 1.3 103/ul Normal 1.2-3.8 The [facility] Comment on above: Performed By: #### T 7, LIPA, TSH, AMADOU, CMP #### [facility] [address] [place] [address] Dr. Krystle Heaton Lymphocytes/100 WBC (Bld) 27.8 % Normal 20.5-60.0 [facility] Comment on above: Performed By: #### T 7, LIPA, TSH, AMADOU, CMP #### [facility] [address] [place] [address] Dr. Krystle Heaton MANUAL DIFF REQ NO Normal [facility] Comment on above: Performed By: #### T 7, LIPA, TSH, AMADOU, CMP #### [facility] [address] [place] [address] Dr. Krystle Heaton MCH (RBC) [Entitic mass] 34.9 pg Critically high 25.9-34.0 [facility] Comment on above: Performed By: #### T 7, LIPA, TSH, AMADOU, CMP #### [facility] [address] [place] [address] Dr. Krystle Heaton MCHC (RBC) [Mass/Vol] 34.6 g/dL Normal 29.9-35.2 The [facility] Comment on above: Performed By: #### T 7, LIPA, TSH, AMADOU, CMP #### [facility] [address] [place] [address] Dr. Krystle Heaton MCV (RBC) [Entitic vol] 100.9 fL Critically high 80.0-94.0 The [facility] Comment on above: Performed By: #### T 7, LIPA, TSH, AMADOU, CMP #### [facility] [address] [place] [address] Dr. Krystle Heaton MONO # 0.3 103/ul Normal 0.3-0.8 The [facility] Comment on above: Performed By: #### T 7, LIPA, TSH, AMADOU, CMP #### [facility] [address] [place] [address] Dr. Krystle Heaton Monocytes/100 WBC (Bld) 6.6 % Normal 1.7-12.0 The [facility] Comment on above: Performed By: #### T 7, LIPA, TSH, AMADOU, CMP #### [facility] [address] [place] [address] Dr. Krystle Heaton NEUT # 2.9 103/ul Normal 1.4-6.5 The [facility] Comment on above: Performed By: #### T 7, LIPA, TSH, AMADOU, CMP #### [facility] [address] [place] [address] Dr. Krystle Heaton Neutrophils/100 WBC (Bld) 62.2 % Normal 43.0-75.0 The [facility] Comment on above: Performed By: #### T 7, LIPA, TSH, AMADOU, CMP #### [facility] [address] [address] [address] Krystle Heaton Platelet mean volume (Bld) [Entitic vol] 11.0 fL Normal 9.5-13.5 [facility] Comment on above: Performed By: #### T 7, LIPA, TSH, AMADOU, CMP #### [facility] [address] [place] [address] Dr. Krystle Heaton PLT 171 103/ul Normal 150-450 [facility] Comment on above: Performed By: #### T 7, LIPA, TSH, AMADOU, CMP #### [facility] [address] [place] [address] Dr. Krystle Heaton RBC 4.58 106/ul Critically low 4.70-6.10 [facility] Comment on above: Performed By: #### T 7, LIPA, TSH, AMADOU, CMP #### [facility] [address] [place] [address] Dr. Krystle Heaton WBC 4.7 103/ul Normal 4.0-11.0 [facility] Comment on above: Performed By: #### T 7, LIPA, TSH, AMADOU, CMP #### [facility] [address] [place] [address] Dr. Krystle Heaton PROF 14(COMP METB)on 021 Albumin [Mass/Vol] 3.9 g/dL Normal 3.5-5.0 [facility] Comment on above: Performed By: #### T 7, LIPA, TSH, AMADOU, CMP #### [facility] [address] [place] [address] Dr. rKystle Heaton Albumin/Globulin [Mass ratio] 1.1 {ratio} Normal [facility] Comment on above: Performed By: #### T 7, LIPA, TSH, AMADOU, CMP #### [facility] [address] [place] [address] Dr. Krystle Heaton ALP [Catalytic activity/Vol] 86 U/L Normal 38-126 [facility] Comment on above: Performed By: #### T 7, LIPA, TSH, AMADOU, CMP #### [facility] [address] [place] [address] Dr. Krystle Heaton ALT [Catalytic activity/Vol] 87 U/L Critically high 21-72 [facility] Comment on above: Performed By: #### T 7, LIPA, TSH, AMADOU, CMP #### [facility] [address] [place] [address] Dr. Krystle Heaton Anion gap [Moles/Vol] 15.7 mmol/L Normal [facility] Comment on above: Performed By: #### T 7, LIPA, TSH, AMADOU, CMP #### [facility] [address] [place] [address] Dr. Krystle Heaton AST [Catalytic activity/Vol] 70 U/L Critically high 17-59 [facility] Comment on above: Performed By: #### T 7, LIPA, TSH, AMADOU, CMP #### [facility] [address] [place] [address] Dr. Krystle Heaton Bilirubin [Mass/Vol] 1.4 mg/dL Critically high 0.2-1.3 The [facility] Comment on above: Performed By: #### T 7, LIPA, TSH, AMADOU, CMP #### [facility] [address] [place] [address] Dr. Krystle Heaton Calcium [Mass/Vol] 9.3 mg/dL Normal 8.4-10.2 [facility] Comment on above: Performed By: #### T 7, LIPA, TSH, AMADOU, CMP #### [facility] [address] [place] [address] Dr. Krystle Heaton Chloride [Moles/Vol] 102 mmol/L Normal 98-107 The [facility] Comment on above: Performed By: #### T 7, LIPA, TSH, AMADOU, CMP #### [facility] [address] [place] [address] Dr. Krystle Heaton CO2 [Moles/Vol] 26.5 mmol/L Normal 22.0-30.0 [facility] Comment on above: Performed By: #### T 7, LIPA, TSH, AMADOU, CMP #### [facility] [address] [place] [address] Dr. Krystle Heaton Creatinine [Mass/Vol] 1.27 mg/dL Critically high 0.66-1.25 [facility] Comment on above: Performed By: #### T 7, LIPA, TSH, AMADOU, CMP #### [facility] [address] [place] [address] Dr. Krystle Heaton EGFR-AF FRENCH >60 Normal >=60 [facility] Comment on above: Performed By: #### T 7, LIPA, TSH, AMADOU, CMP #### [facility] [address] [place] [address] Dr. Krystle Heaton EGFR-NON AF FRENCH =60 Normal >=60 [facility] Comment on above: Performed By: #### T 7, LIPA, TSH, AMADOU, CMP #### [facility] [address] [place] [address] Dr. Krystle Heaton Globulin (S) [Mass/Vol] 3.5 g/dL Normal [facility] Comment on above: Performed By: #### T 7, LIPA, TSH, AMADOU, CMP #### [facility] [address] [place] [address] Dr. Krystle Heaton Glucose [Mass/Vol] 120 mg/dL Critically high 74-[address] [facility] Comment on above: Performed By: #### T 7, LIPA, TSH, AMADOU, CMP #### [facility] [address] [place] [address] Dr. Krystle Heaton Potassium [Moles/Vol] 4.2 mmol/L Normal 3.4-5.0 [facility] Comment on above: Performed By: #### T 7, LIPA, TSH, AMADOU, CMP #### [facility] [address] [place] [address] Dr. Krystle Heaton Protein [Mass/Vol] 7.4 g/dL Normal 6.1-8.2 [facility] Comment on above: Performed By: #### T 7, LIPA, TSH, AMADOU, CMP #### [facility] [address] [place] [address] Dr. Krystle Heaton Sodium [Moles/Vol] 140 mmol/L Normal 137-145 [facility] Comment on above: Performed By: #### T 7, LIPChasidy, TSH, AMADOU, CMP #### [facility] [address] [place] [address] Dr. Krystle Heaton Urea nitrogen [Mass/Vol] 12.0 mg/dL Normal 9.0-20.0 [facility] Comment on above: Performed By: #### T 7, LIPChasidy, TSH, AAMDOU, CMP #### [facility] [address] [place] [address] Dr. Krystle Heaton Urea nitrogen/Creatinine [Mass ratio] 9.4 mg/mg Normal [facility] Comment on above: Performed By: #### T 7, LA, SAVITA, AMADOU, CMP #### [facility] [address] [place] [address] Dr. Krystle Heaton PROTIMEon 12-09-2020 INR Coag (PPP) [Relative time] 0.96 {INR} Normal [facility] Comment on above: Performed By: #### H BSANS #### [facility] [address] [place] [address] Billy Devlin INR GUIDELINES SEE BELOW Normal [facility] Comment on above: Result Comment: MOUNA RED INR: 2.0 - 3.0 CONDITIONS NOT LISTED BELOW 2.5 - 3.5 FOR PROSTHETIC HEART VALVE REPLACEMENT 2.5 - 3.5 RECURRENT THROMBOSIS Performed By: #### H BSANS #### [facility] [address] [place] [address] Billy Devlin PT Coag (PPP) [Time] 10.5 s Normal 9.0-11.6 [facility] Comment on above: Performed By: #### H BSANS #### [facility] [address] [place] [address] Billy Devlin US SINGLE QUAD RT UPPERon [...] by: KRISTEN GODINEZ Date: 2020-12-09 10:23 Normal [facility] Encounters Encounter Date Encounter Type Care Provider Facility Start: 07-14-2024 End: 07-14-2024 ambulatory RASHAWN H TIMMIS Not Available Start: 05-26-2024 End: 05-26-2024 ambulatory RASHAWN H TIMMIS Not Available Start: 05-24-2024 End: 05-24-2024 ambulatory DARIEN WARE Not Available Start: 04-03-2022 End: 04-03-2022 ambulatory Magaly Sewell Facility:[facility] Start: 11-26-2021 End: 11-27-[address] GENEVIEVE ARREOLA Facility:[facility] Start: 11-15-2021 End: 11-15-[address] GENEVIEVE ARREOLA Facility:[facility] Start: 10-08-2021 End: 10-09-[address] AMADOU BROWN Facility:[facility] Start: 09-10-2021 End: 09-11-[address] AMADOU BROWN Facility:[facility] Start: 08-15-2021 End: 08-16-[address] AMADOU BROWN Facility:[facility] Start: 08-13-2021 Encounter for preprocedural laboratory examination DR DOCTOR PALUMBO [facility] Start: 08-10-2021 AUDIT No PCP None [facility] [address] [facility] Work Phone: Start: 08-02-2021 Chart Update No PCP None [facility] [address] [facility] Work Phone: Start: 07-28-2021 End: 07-29-2021 [...] ne w 45 minutes No PCP None [facility] [place] [address] [facility] Work Phone: Start: 04-06-2021 [...] No PCP None [facility] [address] [facility] Work Phone: Procedures Date Procedure Procedure Detail Performing Clinician Biopsy of liver No PCP None Repair of musculoten dinous cuff of shoulder No PCP None Payers Date Payer Category Payer Unknown [id number] 1970 Unknown [id number] 2.16.84 0.1.271755.3.579.2.593 1970 Unknown [id number] 2.16.84 0.1.033763.3.579.2.593 1970 Unknown [id number] 2.16.84 0.1.956313.3.579.2.593 1970 Unknown [id number] 2.16.84 0.1.765142.3.579.2.593 1970 Unknown [id number] 2.16.84 0.1.094478.3.579.2.593 1970 Unknown [id number] 2.16.84 0.1.355189.3.579.2.593 1970 Unknown [id number] 2.16.84 0.1.937508.3.579.2.593 1969 Unknown [id number] 2.16.84 0.1.124922.3.579.2.593 1969 Unknown [id number] 2.16.84 0.1.095802.3.579.2.593 1969 Unknown [id number] 2.16.84 0.1.072340.3.579.2.593 1969 Unknown [id number] 2.16.84 0.1.483218.3.579.2.593 1969 Unknown [id number] 2.16.84 0.1.559424.3.579.2.593 1969 Unknown [id number] 2.16.84 0.1.251034.3.579.2.593 1969 Unknown [id number] 2.16.84 0.1.207514.3.579.2.593 1969 Unknown [id number] 2.16.84 0.1.160015.3.579.2.593 1969 Unknown [id number] 2.16.84 0.1.985704.3.579.2.593 1969 Unknown [id number] 2.16.84 0.1.081294.3.579.2.593 1969 Unknown [id number] 2.16.84 0.1.960847.3.579.2.593 1969 Unknown [id number] 2.16.84 0.1.417020.3.579.2.593 1969 Unknown [id number] 2.16.84 0.1.189853.3.579.2.593 1969 Unknown [id number] 2.16.84 0.1.924242.3.579.2.593 1969 Unknown [id number] 2.16.84 0.1.367577.3.579.2.593 1969 Unknown [id number] 2.16.84 0.1.858919.3.579.2.1259 1969 Unknown [id number] 2.16.84 0.1.694475.3.579.2.1259 1970 Unknown [id number] 2.16.84 0.1.402052.3.579.2.1259 1960 Self-pay [id number] 1960 Self-pay 1960 Unknown [id number] Unknown ANTHEM Unknown [id number] 2.16.84 0.1.460511.3.579.2.593 Unknown [id number] 2.16.84 0.1.029440.3.579.2.593 Unknown [id number] 2.16.8 40.1.649238.3.579.2.531 Social History Date Type Detail Facility Former smoker Former smoker [facility] [address] [facility] Work Phone: Start: 1970 Sex Assigned At Male F [facility] Clinical Note 07-31-2021 Note Date & [...] report Procedure performed by: Sandy Roland MD Photographic Spotter(s): Dee Lopes Md Estimated Blood Loss (mL): [...] grossly normal anatomy Procedure performed by: me Photographic Spotter(s): none Estimated Blood Loss (mL): none Specimen: [...] Last Updated: 08-May-2021 11:58 by Uri Bacon) [facility] Evaluation note Note Date & Type Note Facility Evaluation note No assessment information [facility] Work Phone: History of [...] no lower extremity edema.Symptom History:Modifying Factors:Associated Symptoms: [facility] [address] [facility] Work Phone: Chief Complaint [...] section and content) DATE CREATED AUTHOR 04/14/2021 [employer] DATE CREATED AUTHOR AUTHOR'S ORGANIZ ATION 05/15/2021 [facility] DATE CREATED AUTHOR AUTHOR'S ORGANIZ ATION 11/29/2021 [facility] DATE CREATED AUTHOR AUTHOR'S ORGANIZ ATION 04/15/2022 [facility] DATE CREATED AUTHOR AUTHOR'S ORGANIZ ATION 01/28/2023 [facility] DATE CREATED AUTHOR AUTHOR'S ORGANIZ ATION 05/24/2023 [facility] DATE CREATED AUTHOR AUTHOR'S ORGANIZ ATION 07/15/2024 [facility] EPIC Goals (unrecognized section [...] BE BASED ON THE PRIMARY CLINICAL RECORDS. [facility] [employer] [facility]. provides no warranty or guarantee of the accuracy or completeness of information in this document.
== END 2024-09-02 13:02 | disposition home or self-care (01) ==
LOC: VC 08:59
PROVIDERS: PCP Family Medicine; Visit Provider Family Medicine
DX: R60.0 Localized edema (principal)
CPT/HCPCS: 93970; G0463

== ENCOUNTER 2024-12-06 08:57 | Outpatient (OUT) | payer OTHER, SELFPAY ==
--- NOTE | 2024-12-03 13:40 | V.VEINS.HP ---
Vital Signs 12/06/24 09:49 BP 112/74 BP Location Right Brachial BP Position Sitting BP Cuff Size Large Adult BP Source Manual Cuff Respiration 18 Pulse 64 Pulse Source Monitor Pulse Oximetry (%) 98 Oxygen Delivery Method Room Air Varicose Veins Patient in this day as a 3 month f/u. On patient's initial visit patient c/o bilateral leg pain, achiness, heaviness, and edema. Patient stated it was sudden onset approximately one month ago. Patient has family history of varicose vein disease in his mother. Patient has not had any varicose vein treatment or blood clot issues in the past. Patient at the time, had not worn bilateral leg knee high compression stockings in the past, he purchased them that day and initiated treatment with them as educated. Patient stated the pain and achiness had been present for 2-3 years, the edema was sudden onset within the last month at his initial visit. Today, patient states that since initiating bilateral leg knee high compression stockings he notes significant decrease in pain and edema. David Fuentes MD personally performed the services described in this documentation, as scribed by Chema Amaya RN in my presence and it is both accurate and complete. Chema Fuentes RN, am scribing for, and in the presence of, Dr. David Quevedo and in the presence of the patient. thigh: bilateral, knee: bilateral, calf: bilateral, ankle: bilateral and funk: bilateral aching, cramping, intermittent and tender 7 1 month standing and sitting analgesics Reports heaviness, limb pain, edema and leg edema History of lower extremity trauma: No Superficial thrombophlebitis: No Family history of varicose veins: yes Has patient had previous lower extremity venous surgery: No Patient has previously received the following treatment(s) for lower extremity varicose veins: Reports none Does patient have a history of : not applicable Has patient had lower extremity venous scan with relux testing: No Support hose used: No Problems walking or doing physical activity: Yes How does it affect you: patient has to stop and rest when attempting to walk any kind of distance Do you walk much: Yes Do you stand much: Yes Review of Systems ROS Narrative David Fuentes MD personally performed the services described in this documentation, as scribed by Chema Amaya RN in my presence and it is both accurate and complete. Chema Fuentes RN, am scribing for, and in the presence of, Dr. David Quevedo and in the presence of the patient. Status of ROS 10 or more systems reviewed and unremarkable except as noted in history and below Cardiovascular Reports: edema Integumentary/Breast Reports: changes in skin color [facility] Medical History (Updated 12/03/24 @ 13:44 by Chema Amaya) Varicose veins of bilateral lower extremities with pain ?I83.813 - Varicose veins of bilateral lower extremities with pain (ICD-10) Edema, lower extremity ?R60.0 - Localized edema (ICD-10) Depression ?F32.A - Depression, unspecified (ICD-10) Panic attacks ?F41.0 - Panic disorder [episodic paroxysmal anxiety] (ICD-10) Anxiety ?F41.9 - Anxiety disorder, unspecified (ICD-10) Hypothyroidism ?E03.9 - Hypothyroidism, unspecified (ICD-10) 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) ?F10.21 - Alcohol dependence, in remission (ICD-10) Rotator cuff tear ?M75.100 - Unspecified rotator cuff tear or rupture of unspecified shoulder, not specified as traumatic (ICD-10) Heart palpitations ?R00.2 - Palpitations (ICD-10) Diverticulitis ?K57.92 - Diverticulitis of intestine, part unspecified, without perforation or abscess without bleeding (ICD-10) Hepatic fibrosis ?K74.00 - Hepatic fibrosis, unspecified (ICD-10) Gastroenteritis ?K52.9 - Noninfective gastroenteritis and colitis, unspecified (ICD-10) Serous otitis media ?H65.90 - Unspecified nonsuppurative otitis media, unspecified ear (ICD-10) Post-traumatic osteoarthritis, right shoulder ?M19.111 - Post-traumatic osteoarthritis, right shoulder (ICD-10) Hypertension ?I10 - Essential (primary) hypertension (ICD-10) High cholesterol ?E78.00 - Pure hypercholesterolemia, unspecified (ICD-10) Hereditary hemochromatosis ?E83.110 - Hereditary hemochromatosis (ICD-10) Fatty liver ?K76.0 - Fatty (change of) liver, not elsewhere classified (ICD-10) Hearing loss ?H91.90 - Unspecified hearing loss, unspecified ear (ICD-10) Anemia ?D64.9 - Anemia, unspecified (ICD-10) Acute kidney injury ?N17.9 - Acute kidney failure, unspecified (ICD-10) Abnormal AST and ALT ?R74.8 - Abnormal levels of other serum enzymes (ICD-10) Dysfunction of right eustachian tube ?H69.91 - Unspecified Eustachian tube disorder, right ear (ICD-10) Surgical History (Updated 06/22/24 @ 14:36 by Cristal Tolliver NP) H/O shoulder surgery ?Z98.890 - Other specified postprocedural states (ICD-10) History of liver biopsy ?Z98.890 - Other specified postprocedural states (ICD-10) Family History (Updated 09/02/24 @ 09:20 by Chema Aamya) Other Family history of cancer Family history of diabetes mellitus Family history of hypertension Heart disease Pain due to varicose veins of both lower extremities Social History (Updated 06/22/24 @ 14:46 by Cristal Tolliver NP) Within the past year, how often did you have a drink containing alcohol: never Score interpretation: A score less than 4 is consistent with normal alcohol consumption. Smoking status: Former smoker Non-prescribed substance use: denies use Previous occupational history: Retired [employer] Highest level of school completed/degree received: Associate degree: occupational, technical, vocational program Meds Home Medications and Allergies Home Medications ?Medication ?Instructions ?Recorded ?Confirmed ?Type acamprosate 333 mg tablet,delayed 999 mg PO Q8H 06/22/24 07/06/24 History release carvedilol 6.25 mg tablet 6.25 mg PO QPM 06/22/24 07/06/24 History liothyronine 5 mcg tablet 5 mcg PO DAILY 06/22/24 07/06/24 History mirtazapine 45 mg tablet 45 mg PO DAILY 06/22/24 07/06/24 History risperidone 1 mg tablet 1 mg PO DAILY 06/22/24 07/06/24 History rosuvastatin 5 mg tablet 5 mg PO DAILY 06/22/24 07/06/24 History naltrexone microspheres 380 mg 380 mg IM .monthly 07/06/24 07/06/24 History intramuscular suspension,extended release (Vivitrol) Allergies Allergy/AdvReac Type Severity Reaction Status Date / Time morphine Allergy Eye Verified 06/22/24 14:37 swelling Exam Narrative Exam Narrative: David Fuentes MD personally performed the services described in this documentation, as scribed by Chema Amaya RN in my presence and it is both accurate and complete. IChema RN, am scribing for, and in the presence of, Dr. David Quevedo and in the presence of the patient. Constitutional Documenting provider has reviewed patient's vital signs: yes Common normals: oriented x3 Cardio Peripheral pulses: posterior tibial pulses present and dorsalis pedis pulses present Extremity Common normals: normal capillary refill General: calf tenderness and edema Right lower extremity: lower leg Right lower leg: inspection and palpation Left lower extremity: lower leg Left lower leg: inspection and palpation Neuro Common normals: oriented x3 Results Additional Findings Additional findings: Bilateral leg reflux u/s reveals bilateral leg great saphenous and right small saphenous venous insufficiency along with associated dilation along with 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 Assessment and Plan Assessment and Plan (1) Edema, lower extremity: (2) Varicose veins of bilateral lower extremities with pain: Plan Patient to continue use of bilateral knee high compression stockings, rest, and elevation. Plan is to move forward with EVLT of bilateral GSV's along with right SSV followed by microfoam chemical ablation bilateral leg branch saphenous varicosites. David Fuentes MD personally performed the services described in this documentation, as scribed by Chema Amaya RN in my presence and it is both accurate and complete. Chema Fuentes RN, am scribing for, and in the presence of, Dr. David Quevedo and in the presence of the patient.
--- NOTE | 2024-12-03 13:44 | P.DS_ITS ---
Discharge Plan Discharge Disposition: Home, Self-Care Plan of Treatment: move forward with EVLTs of bilateral GSV, right small saphenous vein and microfoam chemical ablation bilateral branch saphenous varicosities Print Language: Tristanian Discharge Date/Time: 12/06/24 09:58
--- NOTE | 2024-12-06 09:20 | VEIN_ITS ---
Patient Name: ANGIE FRITZ MR#: [id number] : 1970 Exam Date: 12/06/2024 Ordering Doctor: DR DERREK THOMPSON M.D. RADIOLOGY REPORT PROCEDURE: [facility] - OFFICE VISIT FOLLOW UP COMPARISON: [facility], 09/02/2024. PROGRESS NOTES: The patient reports wear compression stockings for past 3 months with improvement symptoms while wearing compression stockings, but continued lower extremity symptoms overall. Persistent varicose veins of bilateral lower extremities. Review of the ultrasound performed on September 02, 2024. Recommended treatment plan at that time is still considered appropriate and beneficial. No significant change in patient history since that time. The patient expressed a desire to proceed with treatment of lower extremity dilated incompetent varicosities. The patient was informed that treatment was a process and would require multiple procedures/sessions. VEIN/[facility] EST TD IMPRESSION: 1. 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 PLAN: 1. Endovenous laser ablation of right great saphenous, left great saphenous, and right small saphenous veins. 2. Microfoam chemical ablation of bilateral lower extremity incompetent branch saphenous varicosities. Nurse notes, history and physical were reviewed and confirmed, see attached forms. The nurse was present throughout the physical exam and consultation Dictated by: David Quevedo M.D. on 12/06/2024 at 12:56 Approved by: David Quevedo M.D. on 12/06/2024 at 13:01
[2024-12-06 09:49] VITALS: BP 112/74; PULSE 64; O2SAT 98
== END 2024-12-06 09:58 | disposition home or self-care (01) ==
LOC: VC 08:58
PROVIDERS: PCP Radiology Diagnostic Radiology; Visit Provider Radiology Diagnostic Radiology
DX: I83.813 Varicose veins of bilateral lower extremities with pain (principal)
CPT/HCPCS: G0463

== ENCOUNTER 2024-12-31 12:35 | Outpatient (OUT) | payer MEDICARE, SELFPAY ==
--- OUTSIDE RECORDS SUMMARY | 2024-12-31 12:46 | XMS_ITS | CCD ---
Author Organization [facility] Care Team Providers Care Vp Strategic Planning Name Role Phone None, No PCP Unavailable Unavailable STEPHANIE, DR AMADOU Chang Attending Unavailable STEPHANIE, DR AMADOU Chang Consulting Unavailable STEPHANIE, DR AMADOU Chang Admitting Unavailable MAXWELL, DR VALLEJO Primary Care Unavailable DARREN, DR Teresa Alcala Admitting Unavailable DARREN, DR Teresa Alcala Attending Unavailable MAXWELL, DR VALLEJO Primary Care Unavailable MAXWELL, DR VALLEJO Consulting Unavailable DARREN, DR Teresa Alcala Consulting Unavailable Policaro, Kristen Consulting Unavailable MAXWELL, DR VALLEJO Admitting [...] VALLEJO Primary Care Unavailable STEPHANIE, DR AMADOU Chnag Consulting Unavailable STEPHANIE, DR AMADOU Chang Attending Unavailable STEPHANIE, DR AMADOU Chang Admitting Unavailable HOY, DR VALLEJO Primary Care Unavailable STEPHANIE, DR AMADOU Chang Consulting Unavailable STEPHANIE, DR AMADOU Chang Attending Unavailable STEPHANIE, DR AMADOU Chang Admitting Unavailable HOY, DR VALLEJO Primary Care Unavailable REQUEST, DR TARAH LISTED Consulting Unavaila ble MAXWELL, DR VALLEJO [...] Unavailable STEPHANIE, DR AMADOU Chang Admitting Unavailable HOQian, DR VALLEJO Primary Care Unavailable STEPHANIE, DR AMADOU Chang Attending Unavailable HOQian, DR VALLEJO Primary Care Unavailable REQUEST, DR NONE LISTED Consulting Unavaila ble REQUEST, NONE LISTED Admitting Unavaila ble REQUEST, NONE LISTED Attending Unavaila ble Magaly Sewell Attending Unavail able Matheus Garza Referring Unavailabl Genevieve Altamirano Primary Care Unavailable Magaly Sewell Admitting Unavail DARIEN Miranda Attending Unavailable VIVIENNE VELÁZQUEZ Attending Unavailable VIVIENNE VELÁZQUEZ Attending Unavailable Genevieve Tong MD Primary Care Provider [phone] Provider, None Primary Care Unavailable Gideon Mace V. Attending Unavailable Gideon Mace V. Admitting Unavailable Allergies Allergy Classification Reported Allergen(s) Allergy Type Date of Onset Reaction(s) Facility (2 sources) Morphine Drug Allergy 2 Swelling of the Eye [facility] Repository (1 source) Morphine Drug Allergy 2 [facility] Repository (4 sources) Morphine Drug Allergy 2 [facility] Healthcare Medications Current Medications Medication Drug Class(es) Dates Sig (Normalized) Sig (Original) acamprosate calcium 333 mg delayed release oral tablet (4 sources) Start: 04-07-2024 take 1 tablet by mouth in the morning, then take 1 tablet by mouth in the evening, then take 1 tablet by mouth at bedtime acamprosate (Campral) 333 MG EC tablet Take 333 mg by mouth in the morning and 333 mg in the evening and 333 mg before bedtime. 04/07/2024 Active carvedilol 6.25 mg oral tablet (10 sources) alpha-Adrenergic Radha, beta-Adrenergic Radha Start: 05-18-2020 take 6.25 mg by mouth twice daily Carvedilol Active 6.25 MG PO Twice daily May 18, 2020 12:00am take 1 tablet by mouth once apolinar y carvedilol (Coreg) 6.25 MG tablet Take 6.25 mg by mouth 1 (one) time each day at the same time Active doxepin hydrochloride 10 mg oral capsule (4 sources) Tricyclic Antidepressant Start: 04-16-2024 take 1 capsule by mouth every twelve hours doxepin (SINEquan) 10 MG capsule Take 10 mg by mouth every 12 (twelve) hours 04/16/2024 Active folic acid 1 mg oral tablet (2 sources) Start: 05-11-2021 End: 05-11-2021 take 1 mg by mouth once daily Folic Acid Active 1 MG PO Daily May 11, 2021 12:13pm hydrOXYzine hydrochloride 25 mg oral tablet (4 sources) Antihistamine Start: 04-07-2024 take 1 tablet by mouth every six hours hydrOXYzine HCl (Atarax) 25 MG tablet Take 25 mg by mouth every 6 (six) hours 04/07/2024 Active levothyroxine sodium 0.05 mg oral tablet (4 sources) l-Thyroxine take 1 tablet by mouth before mealtime levothyroxine (Synthroid, Levoxyl) 50 MCG tablet Take 50 mcg by mouth in the morning. Take before meals. Active liothyronine sodium 0.005 mg oral tablet (4 sources) l-Triiodothyronine take 1 tablet by mouth once daily liothyronine (Cytomel) 5 MCG tablet Take 5 mcg by mouth Daily Active lisinopril 2.5 mg oral tablet (6 sources) Angiotensin Converting Enzyme Inhibitor Start: 04-11-2021 take 2.5 mg by mouth once daily Lisinopril Active 2.5 MG PO Daily April 11, 2021 12:00am Start: 04-20-2020 End: 04-22-2020 take 10 mg by mouth once daily Lisinopril Discontinued 10 MG PO Daily April 20, 2020 12:00am April 22, 2020 12:04pm melatonin 10 mg oral tablet (4 sources) Start: 04-07-2024 take 1 tablet by mouth at bedtime melatonin 10 MG tablet Take 10 mg by mouth at bedtime 04/07/2024 Active mirtazapine 45 mg oral tablet (10 sources) Start: 04-20-2020 take 45 mg by mouth once daily Mirtazapine Active 45 MG PO Daily April 20, 2020 12:00am ofloxacin 3 mg/ml otic solution (3 sources) Quinolone Antimicrobial Start: 07-14-2024 End: 07-24-2024 ofloxacin (Floxin) 0.3 % otic solution Indications: ETD (Eustachian tube dysfunction), right Administer 4 drops into the right ear in the morning and 4 drops before bedtime. Do all this for 10 days. 10 mL 07/14/2024 07/24/2024 Active risperiDONE 1 mg oral tablet (10 sources) Atypical Antipsychotic Start: 04-20-2020 take 1 mg by mouth once daily Risperidone Active 1 MG PO Daily April 20, 2020 12:00am rosuvastatin calcium 5 mg oral tablet (4 sources) HMG-CoA Reductase Inhibitor Start: 05-12-2024 take 1 tablet by mouth once daily Crestor 5 MG tablet Take 5 mg by mouth 1 (one) time each day at the same time 05/12/2024 Active simvastatin 10 mg oral tablet (5 sources) HMG-CoA Reductase Inhibitor Start: 04-30-2024 take 1 tablet by mouth once daily simvastatin (Zocor) 10 MG tablet Take 10 mg by mouth 1 (one) time each day at the same time 04/30/2024 Active Start: 04-20-2020 End: 12-12-2020 take 10 mg by mouth once daily Simvastatin Discontinue d 10 MG PO Daily April 20, 2020 12:00am December 12, 2020 12:20pm triamcinolone acetonide 1 mg/ml topical cream (3 sources) Corticosteroid Start: 04-30-2024 End: 07-14-2024 triamcinolone (Kenalog) 0.1 % cream Apply 0.1 application topically in the morning and 0.1 application before bedtime. 04/30/2024 07/14/2024 Discontinued (Therapy completed) Problems Active Problems Problem Classification Problem Date Documented Date Episodic/Chronic Anxiety disorders (5 sources) Anxiety; Translations: [Anxiety disorder, unspecified] Onset: 05-25-2024 12-13-2020 Chronic Deficiency and other anemia (5 sources) Anemia due to blood loss; Translations: [Iron deficiency anemia secondary to blood loss (chronic)] Onset: 05-25-2024 04-04-2022 Chronic Disorders of lipid metabolism (5 sources) Hypercholesterolemia; Translations: [Pure hypercholesterolemia, unspecified] Onset: 05-25-2024 12-13-2020 Chronic Diverticulosis and diverticulitis (4 sources) Diverticulitis; Translations: [Diverticulitis of intestine, part unspecified, without perforation or abscess without bleeding] Onset: 05-25-2024 05-25-2024 Chronic Essential hypertension (9 sources) Essential (primary) hypertension; Translations: [Hypertensive disorder] Onset: 11-26-2021 Chronic Hepatitis (1 source) Nonalcoholic steatohepatitis; Translations: [Other chronic nonalcoholic liver disease] Chronic Comment on above: Liver Biopsy 2020: T he findings are consistent with steatohepatitis with pericellular andperiportal fibrosis, regardless of the etiology, activity score ASAF grade 4 of8, fibrosis stage 2 of 4.; Osteoarthritis (4 sources) Traumatic arthropathy of the shoulder region; Translations: [Post-traumatic osteoarthritis, right shoulder] Onset: 05-25-2024 05-25-2024 Chronic Other circulatory disease (5 sources) H/O: hypertension; Translations: [Personal history of other diseases of circulatory system] Episodic Other ear and sense organ disorders (4 sources) Bilateral hearing loss; Translations: [Conductive hearing loss, unilateral, right ear with restricted hearing on the contralateral side] Onset: 05-25-2024 05-25-2024 Chronic Other ear and sense organ disorders (4 sources) Mixed conductive AND sensorineural hearing loss; Translations: [Mixed conductive and sensorineural hearing loss, unilateral, left ear with restricted hearing on the contralateral side] Onset: 05-26-2024 05-26-2024 Chronic Other liver diseases (5 sources) Steatosis of liver; Translations: [Fatty (change of) liver, not elsewhere classified] Onset: 05-25-2024 09-13-2021 Chronic Other liver diseases (4 sources) Hepatic fibrosis; Translations: [Hepatic fibrosis] Onset: 05-25-2024 05-25-2024 Chronic Other nutritional; endocrine; and metabolic disorders [...] metabolic disorders (5 sources) Hereditary hemochromatosis; Translations: [Hereditary hemochromatosis] Onset: 05-25-2024 12-13-2020 Chronic Other screening for suspected conditions [...] Other Problems Problem Classification Problem Date Documented Da te Episodic/Chronic Acute and unspecified renal failure (5 sources) Injury of kidney; Translations: [Acute kidney failure, unspecified] Onset: 05-25-2024 04-21-2020 Episodic Cardiac dysrhythmias (4 sources) Palpitations; Translations: [Palpitations] Onset: 05-25-2024 05-25-2024 Episodic Noninfectious gastroenteritis (5 sources) Noninfective gastroenteritis and colitis, unspecified; Translations: [Gastroenteritis] Onset: 01-11-2021 05-25-2024 Episodic Other connective tissue disease (4 sources) Unspecified rotator cuff tear or rupture of unspecified shoulder, not specified as traumatic; Translations: [Rotator cuff (capsule) sprain] Onset: 05-25-2024 05-25-2024 Episodic Other ear and sense organ disorders (4 sources) Hyperacusis of right ear; Translations: [Hyperacusis, right ear] Onset: 05-17-2024 05-25-2024 Episodic Other gastrointestinal disorders (5 sources) Diarrhea; Translations: [Diarrhea, unspecified] Onset: 05-25-2024 12-13-2020 Episodic Other liver diseases (4 sources) Abnormal levels of other serum enzymes; Translations: [ABNORMAL LEVELS OTHER SERUM ENZYMES] Onset: 12-09-2020 Episodic Other liver diseases (5 sources) Enzyme level - finding; Translations: [Abnormal levels of other serum enzymes] Onset: 05-25-2024 05-12-2021 Episodic Other skin disorders (4 sources) Sebaceous cyst of skin; Translations: [Sebaceous cyst] Onset: 05-25-2024 05-25-2024 Episodic Otitis media and related conditions (14 sources) Serous otitis media; Translations: [Unspecified nonsuppurative otitis media, unspecified ear] Onset: 05-25-2024 05-25-2024 Episodic Unclassified (1 source) CONTACT W/AND (SUSP) EXPOS COVID-19; Translations: [CONTACT W/AND (SUSP) EXPOS COVID-19] Onset: 11-15-2021 Results Test Name Value Interpretation Reference Range Facility Outside Recordson 12-28-2024 Outside Records [id number] Report on 12-28-2024 Rad - Other Radiology Report [id number] [id number]#[id number] In office Testingon 01-29-20 23 In office Testing [id number]:127 Normal [facility] AMYLASEon 11-26-2021 Amylase [Catalytic activity/Vol] 53 U/L Normal 31-110 [facility] Comment on above: Performed By: #### T 7, LIPA, TSH, AMADOU, CMP #### [facility] [address] [place] [address] Dr. Krystle Heaton CBC AUTO DIFFon 11-26-2021 BASO # 0.0 103/ul Normal 0.0-0.1 [facility] Comment on above: Performed By: #### F ERR #### [facility] [address] [place] [address] Dr. Krystle Heaton Basophils/100 WBC (Bld) 0.6 % Normal 0.2-2.0 [facility] Comment on above: Performed By: #### F ERR #### [facility] [address] [place] [address] Dr. Krystle Heaton EO # 0.1 103/ul Normal 0.0-0.7 [facility] Comment on above: Performed By: #### F ERR #### [facility] [address] [place] [address] Dr. Krystle Heaton Eosinophils/100 WBC (Bld) 2.7 % Normal 0.9-7.0 [facility] Comment on above: Performed By: #### F ERR #### [facility] [address] [place] [address] Dr. Krystle Heaton Erythrocyte distribution width (RBC) [Ratio] 16.0 % Critically high 11.0-15.0 [facility] Comment on above: Performed By: #### F ERR #### [facility] [address] [place] [address] Dr. Krystle Heaton Hematocrit (Bld) [Volume fraction] 42.8 % Normal 42.0-54.0 [facility] Comment on above: Performed By: #### F ERR #### [facility] [address] [place] [address] Dr. Krystle Heaton Hemoglobin (Bld) [Mass/Vol] 13.0 g/dL Critically low 14.0-18.0 [facility] Comment on above: Performed By: #### F ERR #### [facility] [address] [place] [address] Dr. Krystle Heaton IG # 0.02 10e3/ul Normal 0.00-0.03 [facility] Comment on above: Performed By: #### F ERR #### [facility] [address] [place] [address] Dr. Krystle Heaton IG % 0.4 % Normal 0.0-0.5 [facility] Comment on above: Performed By: #### F ERR #### [facility] [address] [place] [address] Dr. Krystle Heaton LYMPH # 0.9 103/ul Critically low 1.2-3.8 [facility] Comment on above: Performed By: #### F ERR #### [facility] [address] [place] [address] Dr. Krystle Heaton Lymphocytes/100 WBC (Bld) 19.1 % Critically low 20.5-60.0 [facility] Comment on above: Performed By: #### F ERR #### [facility] [address] [place] [address] Dr. Krystle Heaton MANUAL DIFF REQ NO Normal [facility] Comment on above: Performed By: #### F ERR #### [facility] [address] [place] [address] Dr. Krystle Heaton MCH (RBC) [Entitic mass] 27.7 pg Normal 25.9-34.0 [facility] Comment on above: Performed By: #### F ERR #### [facility] [address] [place] [address] Dr. Krystle Heaton MCHC (RBC) [Mass/Vol] 30.4 g/dL Normal 29.9-35.2 [facility] Comment on above: Performed By: #### F ERR #### [facility] [address] [place] [address] Dr. Krystle Heaton MCV (RBC) [Entitic vol] 91.1 fL Normal 80.0-94.0 [facility] Comment on above: Performed By: #### F ERR #### [facility] [address] [place] [address] Dr. Krystle Heaton MONO # 0.5 103/ul Normal 0.3-0.8 [facility] Comment on above: Performed By: #### F ERR #### [facility] [address] [place] [address] Dr. Krystle Heaton Monocytes/100 WBC (Bld) 10.4 % Normal 1.7-12.0 [facility] Comment on above: Performed By: #### F ERR #### [facility] [address] [place] [address] Dr. Krystle Heaton NEUT # 3.2 103/ul Normal 1.4-6.5 [facility] Comment on above: Performed By: #### F ERR #### [facility] [address] [place] [address] Dr. Krystle Heaton Neutrophils/100 WBC (Bld) 66.8 % Normal 43.0-75.0 [facility] Comment on above: Performed By: #### F ERR #### [facility] [address] [place] [address] Dr. Krystle Heaton Platelet mean volume (Bld) [Entitic vol] 11.3 fL Normal 9.5-13.5 [facility] Comment on above: Performed By: #### F ERR #### [facility] [address] [place] [address] Dr. Krystle Heaton PLT 177 103/ul Normal 150-450 [facility] Comment on above: Performed By: #### F ERR #### [facility] [address] [place] [address] Dr. Krystle Heaton RBC 4.70 106/ul Normal 4.70-6.10 [facility] Comment on above: Performed By: #### F ERR #### [facility] [address] [place] [address] Dr. Krystle Heaton WBC 4.8 103/ul Normal 4.0-11.0 [facility] Comment on above: Performed By: #### F ERR #### [facility] [address] [place] [address] Dr. Krystle Heaton FERRITINon 11-26-2021 Ferritin [Mass/Vol] 63.0 ng/mL Normal 17.9-464.0 [facility] Comment on above: Performed By: #### C BC #### [facility] [address] [place] [address] Billy Deanen FREE THYROXINE INDEX T7on FTI 2.14 Normal [facility] Comment on above: Performed By: #### T 7, LIPA, TSH, AMADOU, CMP #### [facility] [address] [place] [address] Dr. Krystle Heaton T3U 34.0 % Normal 23.5-40.5 [facility] Comment on above: Performed By: #### T 7, LIPA, TSH, AMADOU, CMP #### [facility] [address] [place] [address] Dr. Krystle Heaton T4 [Mass/Vol] 6.30 ug/dL Normal 5.53-11.00 [facility] Comment on above: Performed By: #### T 7, LIPA, TSH, AMADOU, CMP #### [facility] [address] [place] [address] Dr. Krystle Heaton LIPASEon 11-26-2021 Lipase [Catalytic activity/Vol] 115.0 U/L Normal 23.0-300.0 [facility] Comment on above: Performed By: #### T 7, LIPA, TSH, AMADOU, CMP #### [facility] [address] [place] [address] Dr. Krystle Heaton PROF 14(COMP METB)on 022 Albumin [Mass/Vol] 3.6 g/dL Normal 3.5-5.0 [facility] Comment on above: Performed By: #### T 7, LIPA, TSH, AMADOU, CMP #### [facility] [address] [place] [address] Dr. Krystle Heaton Albumin/Globulin [Mass ratio] 0.9 {ratio} Normal [facility] Comment on above: Performed By: #### T 7, LIPA, TSH, AMADOU, CMP #### [facility] [address] [place] [address] Dr. Krystle Heaton ALP [Catalytic activity/Vol] 94 U/L Normal 38-126 [facility] Comment on above: Performed By: #### T 7, LIPA, TSH, AMADOU, CMP #### [facility] [address] [place] [address] Dr. Krystle Heaton ALT [Catalytic activity/Vol] 103 U/L Critically high 21-72 [facility] Comment on above: Performed By: #### T 7, LIPA, TSH, AMADOU, CMP #### [facility] [address] [place] [address] Dr. Krystle Heaton Anion gap [Moles/Vol] 12.8 mmol/L Normal [facility] Comment on above: Performed By: #### T 7, LIPA, TSH, AMADOU, CMP #### [facility] [address] [place] [address] Dr. Krystle Heaton AST [Catalytic activity/Vol] 148 U/L Critically high 17-59 [facility] Comment on above: Performed By: #### T 7, LIPA, TSH, AMADOU, CMP #### [facility] [address] [place] [address] Dr. Krystle Heaton Bilirubin [Mass/Vol] 1.2 mg/dL Normal 0.2-1.3 [facility] Comment on above: Performed By: #### T 7, LIPA, TSH, AMADOU, CMP #### [facility] [address] [place] [address] Dr. Krystle Heaton Calcium [Mass/Vol] 9.1 mg/dL Normal 8.4-10.[address] [facility] Comment on above: Performed By: #### T 7, LIPA, TSH, AMADOU, CMP #### [facility] [address] [place] [address] Dr. Krystle Heaton Chloride [Moles/Vol] 100 mmol/L Normal 98-107 [facility] Comment on above: Performed By: #### T 7, LIPA, TSH, AMADOU, CMP #### [facility] [address] [place] [address] Dr. Krystle Heaton CO2 [Moles/Vol] 26.7 mmol/L Normal 22.0-30.0 [facility] Comment on above: Performed By: #### T 7, LIPA, TSH, AMADOU, CMP #### [facility] [address] [place] [address] Dr. Krystle Heaton Creatinine [Mass/Vol] 0.94 mg/dL Normal 0.66-1.25 [facility] Comment on above: Performed By: #### T 7, LIPA, TSH, AMADOU, CMP #### [facility] [address] [place] [address] Dr. Krystle Heaton EGFR-AF SIERRA LEONEAN >60 Normal >=60 [facility] Comment on above: Performed By: #### T 7, LIPA, TSH, AMADOU, CMP #### [facility] [address] [place] [address] Dr. Krystle Heaton EGFR-NON AF SIERRA LEONEAN >60 Normal >=60 [facility] Comment on above: Performed By: #### T 7, LIPA, TSH, AMADOU, CMP #### [facility] [address] [place] [address] Dr. Krystle Heaton Globulin (S) [Mass/Vol] 4.0 g/dL Normal [facility] Comment on above: Performed By: #### T 7, LIPA, TSH, AMADOU, CMP #### [facility] [address] [address] [address] Krystle Heaton Glucose [Mass/Vol] 112 mg/dL Critically high 74-106 [facility] Comment on above: Performed By: #### T 7, LIPA, TSH, AMADOU, CMP #### [facility] [address] [place] [address] Dr. Krystle Heaton Potassium [Moles/Vol] 4.5 mmol/L Normal 3.4-5.0 [facility] Comment on above: Performed By: #### T 7, LIPA, TSH, AMADOU, CMP #### [facility] [address] [place] [address] Dr. Krystle Heaton Protein [Mass/Vol] 7.6 g/dL Normal 6.1-8.2 [facility] Comment on above: Performed By: #### T 7, LIPA, TSH, AMADOU, CMP #### [facility] [address] [place] [address] Dr. Krystle Heaton Sodium [Moles/Vol] 135 mmol/L Critically low 137-145 [facility] Comment on above: Performed By: #### T 7, LIPA, TSH, AMADOU, CMP #### [facility] [address] [place] [address] Dr. Krystle Heaton Urea nitrogen [Mass/Vol] 5.0 mg/dL Critically low 9.0-20.0 [facility] Comment on above: Performed By: #### T 7, LIPA, TSH, AMADOU, CMP #### [facility] [address] [place] [address] Dr. Krystle Heaton Urea nitrogen/Creatinine [Mass ratio] 5.3 mg/mg Normal [facility] Comment on above: Performed By: #### T 7, LIPA, TSH, AMADOU, CMP #### [facility] [address] [place] [address] Dr. Krystle Heaton TSHon 11-26-2021 TSH 1.842 uIU/mL Normal 0.470-4.[address] [facility] Comment on above: Performed By: #### T 7, LIPA, TSH, AMADOU, CMP #### [facility] [address] [place] [address] Dr. Krystle Heaton TSH RANGE SEE BELOW Normal [facility] Comment on above: Result Comment: <0.3 4 UIU/ml HYPERTHYROID 0.34-5.60 UIU/ml EUTHYROID >5.60 UIU/ml HYPOTHYROID Performed By: #### T 7, LIPA, TSH, AMADOU, CMP #### [facility] [address] [address] [address] Krystle Heaton Covid-19 PCR ([facility])on SARS-CoV-2 (COVID-19) RNA JIMBO+probe Ql (Unsp spec) Not detected Normal NOT DETECTED [facility] Comment on above: Result Comment: This test is not yet approved or cleared by the [place] FDA. When there are no FDA-approved or cleared tests available, and other criteria are met, FDA can make tests available under an emergency access mechanism called an Emergency Use Authorization (EUA). The EUA for this test is supported by the [place] of Health and Human Service's (HHS's) declaration [...] SARS-CoV-2. Performed By: #### F ERR #### [facility] [address] [place] [address] Dr. Krystle Heaton CBC AUTO DIFFon 10-08-2021 BASO # 0.0 103/ul Normal 0.0-0.1 [facility] Comment on above: Performed By: #### T 7, LIPA, TSH, AMADOU, CMP #### [facility] [address] [place] [address] Dr. Krystle Heaton Basophils/100 WBC (Bld) 0.7 % Normal 0.2-2.0 [facility] Comment on above: Performed By: #### T 7, LIPA, TSH, AMADOU, CMP #### [facility] [address] [place] [address] Dr. Krystle Heaton EO # 0.2 103/ul Normal 0.0-0.7 [facility] Comment on above: Performed By: #### T 7, LIPA, TSH, AMADOU, CMP #### [facility] [address] [place] [address] Dr. Krystle Heaton Eosinophils/100 WBC (Bld) 3.6 % Normal 0.9-7.0 [facility] Comment on above: Performed By: #### T 7, LIPA, TSH, AMADOU, CMP #### [facility] [address] [place] [address] Dr. Krystle Heaton Erythrocyte distribution width (RBC) [Ratio] 16.0 % Critically high 11.0-15.0 [facility] Comment on above: Performed By: #### T 7, LIPA, TSH, AMADOU, CMP #### [facility] [address] [place] [address] Dr. Kyrstle Heaton Hematocrit (Bld) [Volume fraction] 38.7 % Critically low 42.0-54.0 [facility] Comment on above: Performed By: #### T 7, LIPA, TSH, AMADOU, CMP #### [facility] [address] [place] [address] Dr. Krystle Heaton Hemoglobin (Bld) [Mass/Vol] 11.7 g/dL Critically low 14.0-18.0 [facility] Comment on above: Performed By: #### T 7, LIPA, TSH, AMADOU, CMP #### [facility] [address] [place] [address] Dr. Krystle Heaton IG # 0.01 10e3/ul Normal 0.00-0.03 [facility] Comment on above: Performed By: #### T 7, LIPA, TSH, MAADOU, CMP #### [facility] [address] [place] [address] Dr. Krystle Heaton IG % 0.2 % Normal 0.0-0.5 [facility] Comment on above: Performed By: #### T 7, LIPA, TSH, AMADOU, CMP #### [facility] [address] [place] [address] Dr. Krystle Heaton LYMPH # 1.6 103/ul Normal 1.2-3.8 [facility] Comment on above: Performed By: #### T 7, LIPA, TSH, AMADOU, CMP #### [facility] [address] [place] [address] Dr. Krystle Heaton Lymphocytes/100 WBC (Bld) 29.2 % Normal 20.5-60.0 [facility] Comment on above: Performed By: #### T 7, LIPA, TSH, AMADOU, CMP #### [facility] [address] [place] [address] Dr. Krystle Heaton MANUAL DIFF REQ NO Normal [facility] Comment on above: Performed By: #### T 7, LIPA, TSH, AMADOU, CMP #### [facility] [address] [place] [address] Dr. Krytsle Heaton MCH (RBC) [Entitic mass] 27.7 pg Normal 25.9-34.0 [facility] Comment on above: Performed By: #### T 7, LIPA, TSH, AMADOU, CMP #### [facility] [address] [place] [address] Dr. Krystle Heaton MCHC (RBC) [Mass/Vol] 30.2 g/dL Normal 29.9-35.2 [facility] Comment on above: Performed By: #### T 7, LIPA, TSH, AMADOU, CMP #### [facility] [address] [place] [address] Dr. Krystle Heaton MCV (RBC) [Entitic vol] 91.5 fL Normal 80.0-94.0 [facility] Comment on above: Performed By: #### T 7, LIPA, TSH, AMADOU, CMP #### [facility] [address] [place] [address] Dr. Krystle Heaton MONO # 0.6 103/ul Normal 0.3-0.8 [facility] Comment on above: Performed By: #### T 7, LIPA, TSH, AMADOU, CMP #### [facility] [address] [place] [address] Dr. Krystle Heaton Monocytes/100 WBC (Bld) 10.5 % Normal 1.7-12.0 [facility] Comment on above: Performed By: #### T 7, LIPA, TSH, AMADOU, CMP #### [facility] [address] [place] [address] Dr. Krystle Heaton NEUT # 3.1 103/ul Normal 1.4-6.5 [facility] Comment on above: Performed By: #### T 7, LIPA, TSH, AMADOU, CMP #### [facility] [address] [place] [address] Dr. Krystle Heaton Neutrophils/100 WBC (Bld) 55.8 % Normal 43.0-75.0 [facility] Comment on above: Performed By: #### T 7, LIPA, TSH, AMADOU, CMP #### [facility] [address] [place] [address] Dr. Krystle Heaton Platelet mean volume (Bld) [Entitic vol] 10.9 fL Normal 9.5-13.5 [facility] Comment on above: Performed By: #### T 7, LIPA, TSH, AMADOU, CMP #### [facility] [address] [place] [address] Dr. Krystle Heaton PLT 214 103/ul Normal 150-450 [facility] Comment on above: Performed By: #### T 7, LIPA, TSH, AMADOU, CMP #### [facility] [address] [place] [address] Dr. Krystle Heaton RBC 4.23 106/ul Critically low 4.70-6.10 [facility] Comment on above: Performed By: #### T 7, LIPA, TSH, AMADOU, CMP #### [facility] [address] [place] [address] Dr. Krystle Heaton WBC 5.5 103/ul Normal 4.0-11.0 [facility] Comment on above: Performed By: #### T 7, LIPA, TSH, AMADOU, CMP #### [facility] [address] [place] [address] Dr. Krystle Heaton FERRITINon 10-08-2021 Ferritin [Mass/Vol] 59.0 ng/mL Normal 17.9-464.0 [facility] Comment on above: Performed By: #### T 7, LIPA, TSH, AMADOU, CMP #### [facility] [address] [place] [address] Dr. Krystle Heaton CBC AUTO DIFFon 09-10-2021 BASO # 0.0 103/ul Normal 0.0-0.1 [facility] Comment on above: Performed By: #### C BC #### [facility] [address] [place] [address] Billy Quita Basophils/100 WBC (Bld) 0.8 % Normal 0.2-2.0 [facility] Comment on above: Performed By: #### C BC #### [facility] [address] [place] [address] Billy Quita EO # 0.1 103/ul Normal 0.0-0.7 [facility] Comment on above: Performed By: #### C BC #### [facility] [address] [place] [address] Billy Quita Eosinophils/100 WBC (Bld) 3.5 % Normal 0.9-7.0 [facility] Comment on above: Performed By: #### C BC #### [facility] [address] [place] [address] Billy Quita Erythrocyte distribution width (RBC) [Ratio] 16.7 % Critically high 11.0-15.0 [facility] Comment on above: Performed By: #### C BC #### [facility] [address] [place] [address] Billy Quita Hematocrit (Bld) [Volume fraction] 40.6 % Critically low 42.0-54.0 [facility] Comment on above: Performed By: #### C BC #### [facility] [address] [id number] Billy Quita Hemoglobin (Bld) [Mass/Vol] 12.4 g/dL Critically low 14.0-18.0 [facility] Comment on above: Performed By: #### C BC #### [facility] [address] [id number] Billy Quita IG # 0.01 10e3/ul Normal 0.00-0.03 [facility] Comment on above: Performed By: #### C BC #### [facility] [address] [place], [place] [id number] Billy Quita IG % 0.3 % Normal 0.0-0.5 [facility] Comment on above: Performed By: #### C BC #### [facility] [address] [place] [address] Billy Quita LYMPH # 1.5 103/ul Normal 1.2-3.8 [facility] Comment on above: Performed By: #### C BC #### [facility] [address] [place] [address] Billy Quita Lymphocytes/100 WBC (Bld) 39.7 % Normal 20.5-60.0 [facility] Comment on above: Performed By: #### C BC #### [facility] [address] [place], [place] [id number] Billycarrillo Devlin MANUAL DIFF REQ NO Normal [facility] Comment on above: Performed By: #### C BC #### [facility] [address] [place], [place] [phone] Billy Quita MCH (RBC) [Entitic mass] 27.6 pg Normal 25.9-34.0 [facility] Comment on above: Performed By: #### C BC #### [facility] [address] [place], [place] [phone] Billy Quita MCHC (RBC) [Mass/Vol] 30.5 g/dL Normal 29.9-35.2 [facility] Comment on above: Performed By: #### C BC #### [facility] [address] [place], [place] [address] Billy Quita MCV (RBC) [Entitic vol] 90.2 fL Normal 80.0-94.0 [facility] Comment on above: Performed By: #### C BC #### [facility] [address] [place], [place] [address] Billycarrillo Deanen MONO # 0.5 103/ul Normal 0.3-0.8 [facility] Comment on above: Performed By: #### C BC #### [facility] [address] [id number] Billy Quita Monocytes/100 WBC (Bld) 13.3 % Critically high 1.7-12.0 [facility] Comment on above: Performed By: #### C BC #### [facility] [address] [id number] Billy Quita NEUT # 1.6 103/ul Normal 1.4-6.5 [facility] Comment on above: Performed By: #### C BC #### [facility] [address] [id number] Billycarrillo Deanen Neutrophils/100 WBC (Bld) 42.4 % Critically low 43.0-75.0 [facility] Comment on above: Performed By: #### C BC #### [facility] [address] [id number] Billycarrillo Devlin Platelet mean volume (Bld) [Entitic vol] 11.5 fL Normal 9.5-13.5 [facility] Comment on above: Performed By: #### C BC #### [facility] [address] [place], [place] [address] Billy Quita PLT 136 103/ul Critically low 150-450 [facility] Comment on above: Performed By: #### C BC #### [facility] [address] [place], [place] [address] Billy Quita RBC 4.50 106/ul Critically low 4.70-6.10 [facility] Comment on above: Performed By: #### C BC #### [facility] [address] [id number] Billy Quita WBC 3.7 103/ul Critically low 4.0-11.0 [facility] Comment on above: Performed By: #### C BC #### [facility] [address] [place] [address] Billy Devlin FERRITINon 09-10-2021 Ferritin [Mass/Vol] 106.0 ng/mL Normal 17.9-464.0 [facility] Comment on above: Performed By: #### F ERR #### [facility] [address] [place] [address] Dr. Krystle Heaton CBC AUTO DIFFon 08-15-2021 BASO # 0.0 103/ul Normal 0.0-0.1 [facility] Comment on above: Performed By: #### C BC #### [facility] [address] [place] [address] Dr. Krystle Heaton Basophils/100 WBC (Bld) 0.8 % Normal 0.2-2.0 [facility] Comment on above: Performed By: #### C BC #### [facility] [address] [place] [address] Dr. Krystle Heaton EO # 0.2 103/ul Normal 0.0-0.7 [facility] Comment on above: Performed By: #### C BC #### [facility] [address] [place] [address] Dr. Krystle Heaton Eosinophils/100 WBC (Bld) 4.4 % Normal 0.9-7.0 [facility] Comment on above: Performed By: #### C BC #### [facility] [address] [place] [address] Dr. Krystle Heaton Erythrocyte distribution width (RBC) [Ratio] 15.7 % Critically high 11.0-15.0 [facility] Comment on above: Performed By: #### C BC #### [facility] [address] [place] [address] Dr. Krystle Heaton Hematocrit (Bld) [Volume fraction] 39.4 % Critically low 42.0-54.0 [facility] Comment on above: Performed By: #### C BC #### [facility] [address] [place] [address] Dr. Krystle Heaton Hemoglobin (Bld) [Mass/Vol] 12.2 g/dL Critically low 14.0-18.0 [facility] Comment on above: Performed By: #### C BC #### [facility] [address] [place] [address] Dr. Krystle Heaton IG # 0.01 10e3/ul Normal 0.00-0.03 [facility] Comment on above: Performed By: #### C BC #### [facility] [address] [place] [address] Dr. Krystle Heaton IG % 0.2 % Normal 0.0-0.5 [facility] Comment on above: Performed By: #### C BC #### [facility] [address] [place] [address] Dr. Krystle Heaton LYMPH # 1.5 103/ul Normal 1.2-3.8 [facility] Comment on above: Performed By: #### C BC #### [facility] [address] [place] [address] Dr. Krystle Heaton Lymphocytes/100 WBC (Bld) 32.2 % Normal 20.5-60.0 [facility] Comment on above: Performed By: #### C BC #### [facility] [address] [place] [address] Dr. Krystle Heaton MANUAL DIFF REQ NO Normal [facility] Comment on above: Performed By: #### C BC #### [facility] [address] [place] [address] Dr. Krystle Heaton MCH (RBC) [Entitic mass] 27.4 pg Normal 25.9-34.0 [facility] Comment on above: Performed By: #### C BC #### [facility] [address] [place] [address] Dr. Krystle Heaton MCHC (RBC) [Mass/Vol] 31.0 g/dL Normal 29.9-35.2 [facility] Comment on above: Performed By: #### C BC #### [facility] [address] [place] [address] Dr. Krystle Heaton MCV (RBC) [Entitic vol] 88.5 fL Normal 80.0-94.0 [facility] Comment on above: Performed By: #### C BC #### [facility] [address] [place] [address] Dr. Krystle Heaton MONO # 0.6 103/ul Normal 0.3-0.8 [facility] Comment on above: Performed By: #### C BC #### [facility] [address] [place] [address] Dr. Krystle Heaton Monocytes/100 WBC (Bld) 11.7 % Normal 1.7-12.0 [facility] Comment on above: Performed By: #### C BC #### [facility] [address] [place] [address] Dr. Krystle Heaton NEUT # 2.4 103/ul Normal 1.4-6.5 [facility] Comment on above: Performed By: #### C BC #### [facility] [address] [place] [address] Dr. Krystle Heaton Neutrophils/100 WBC (Bld) 50.7 % Normal 43.0-75.0 [facility] Comment on above: Performed By: #### C BC #### [facility] [address] [place] [address] Dr. Krystle Heaton Platelet mean volume (Bld) [Entitic vol] 11.4 fL Normal 9.5-13.5 [facility] Comment on above: Performed By: #### C BC #### [facility] [address] [place] [address] Dr. Krystle Heaton PLT 169 103/ul Normal 150-450 [facility] Comment on above: Performed By: #### C BC #### [facility] [address] [place] [address] Dr. Krystle Heaton RBC 4.45 106/ul Critically low 4.70-6.10 [facility] Comment on above: Performed By: #### C BC #### [facility] [address] [place] [address] Dr. Krystle Heaton WBC 4.8 103/ul Normal 4.0-11.0 [facility] Comment on above: Performed By: #### C BC #### [facility] [address] [place], [place] [address] Dr. Krystle Heaton FERRITINon 08-15-2021 Ferritin [Mass/Vol] 103.0 ng/mL Normal 17.9-464.0 [facility] Comment on above: Performed By: #### T 7, LIPA, TSH, AMADOU, CMP #### [facility] [address] [place], [place] [address] Dr. Krystle Heaton No Panel Informationon 07-31 Name CHUY CHAPIN Pathologist: COLLETTE DOTSON MD Date of Procedure: 07/31/2021 Date Received: [address] Work Phone: Radiologyon 07-31-2021 US Guidance for fine needle aspiration of Liver Normal [facility] Work Phone: [facility] Surgical Pathology Depar tmenton 07-31-2021 [facility] Surgical Pathology Department Name CHUY CHAPIN [...] toto in 2 cassettes A1 and A2. [facility]/07/31/2021 The assays/tests were performed with appropriate positive and negative controls which stained appropriately. [facility] Department of Pathology [address] [place] [address] Normal [facility] Comment on above: Performed By: #### [facility] #### [facility] Surgical Pathology Department [address] [place] [address] US BIOPSY LIVER PERon 2020 US BIOPSY LIVER PER Patient Name: CHUY CHAPIN STUDY: US BIOPSY LIVER PER; 07/31/2021 1:03 pm PROCEDURE: ULTRASOUND GUIDED NON TARGETED RANDOM BIOPSY OF THE LIVER INDICATION: Hemochromatosis; here for tissue diagnosis COMPARISON: CT-guided liver biopsy 05/08/2021. ACCESSION NUMBER(S): [id number] ORDERING CLINICIAN: ENOCH HERRMANN SALES PROMOTER: Dr. Roland (attending) Dee Lopes MD MEDICATIONS: [...] as stated. This study was interpreted at [place], [place]. Electronically signed by: SANDY ROLAND MD [facility] CBC AUTO DIFFon 07-28-2021 BASO # 0.0 103/ul Normal 0.0-0.1 [facility] Comment on above: Performed By: #### T 7, LIPA, TSH, AMADOU, CMP #### [facility] [address] [place] [address] Dr. Krystle Heaton Basophils/100 WBC (Bld) 0.6 % Normal 0.2-2.0 [facility] Comment on above: Performed By: #### T 7, LIPA, TSH, AMADOU, CMP #### [facility] [address] [place] [address] Dr. Krystle Heaton EO # 0.2 103/ul Normal 0.0-0.7 [facility] Comment on above: Performed By: #### T 7, LIPA, TSH, AMADOU, CMP #### [facility] [address] [place] [address] Dr. Krystle Heaton Eosinophils/100 WBC (Bld) 3.6 % Normal 0.9-7.0 [facility] Comment on above: Performed By: #### T 7, LIPA, TSH, AMADOU, CMP #### [facility] [address] [place] [address] Dr. Krystle Heaton Erythrocyte distribution width (RBC) [Ratio] 14.7 % Normal 11.0-15.0 [facility] Comment on above: Performed By: #### T 7, LIPA, TSH, AMADOU, CMP #### [facility] [address] [place] [address] Dr. Krystle Heaton Hematocrit (Bld) [Volume fraction] 37.4 % Critically low 42.0-54.0 [facility] Comment on above: Performed By: #### T 7, LIPA, TSH, AMADOU, CMP #### [facility] [address] [place] [address] Dr. Krystle Heaton Hemoglobin (Bld) [Mass/Vol] 11.5 g/dL Critically low 14.0-18.0 [facility] Comment on above: Performed By: #### T 7, LIPA, TSH, AMADOU, CMP #### [facility] [address] [place] [address] Dr. Krystle Heaton IG # 0.02 10e3/ul Normal 0.00-0.03 [facility] Comment on above: Performed By: #### T 7, LIPA, TSH, AMADOU, CMP #### [facility] [address] [place] [address] Dr. Krystle Heaton IG % 0.4 % Normal 0.0-0.5 [facility] Comment on above: Performed By: #### T 7, LIPA, TSH, AMADOU, CMP #### [facility] [address] [place] [address] Dr. Krystle Heaton LYMPH # 1.5 103/ul Normal 1.2-3.8 [facility] Comment on above: Performed By: #### T 7, LIPA, TSH, AMADOU, CMP #### [facility] [address] [place] [address] Dr. Krystle Heaton Lymphocytes/100 WBC (Bld) 31.3 % Normal 20.5-60.0 [facility] Comment on above: Performed By: #### T 7, LIPA, TSH, AMADOU, CMP #### [facility] [address] [place] [address] Dr. Krystle Heaton MANUAL DIFF REQ NO Normal [facility] Comment on above: Performed By: #### T 7, LIPA, TSH, AMADOU, CMP #### [facility] [address] [place] [address] Dr. Krystle Heaton MCH (RBC) [Entitic mass] 27.8 pg Normal 25.9-34.0 [facility] Comment on above: Performed By: #### T 7, LIPA, TSH, AMADOU, CMP #### [facility] [address] [place] [address] Dr. Krystle Heaton MCHC (RBC) [Mass/Vol] 30.7 g/dL Normal 29.9-35.2 [facility] Comment on above: Performed By: #### T 7, LIPA, TSH, AMADOU, CMP #### [facility] [address] [place] [address] Dr. Krystle Heaton MCV (RBC) [Entitic vol] 90.6 fL Normal 80.0-94.0 [facility] Comment on above: Performed By: #### T 7, LIPA, TSH, AMADOU, CMP #### [facility] [address] [place] [address] Dr. Krystle Heaton MONO # 0.6 103/ul Normal 0.3-0.8 [facility] Comment on above: Performed By: #### T 7, LIPA, TSH, AMADOU, CMP #### [facility] [address] [place] [address] Dr. Krystle Heaton Monocytes/100 WBC (Bld) 12.8 % Critically high 1.7-12.0 [facility] Comment on above: Performed By: #### T 7, LIPA, TSH, AMADOU, CMP #### [facility] [address] [place] [address] Dr. Krystle Heaton NEUT # 2.4 103/ul Normal 1.4-6.5 [facility] Comment on above: Performed By: #### T 7, LIPA, TSH, AMADOU, CMP #### [facility] [address] [place] [address] Dr. Krystle Heaton Neutrophils/100 WBC (Bld) 51.3 % Normal 43.0-75.0 [facility] Comment on above: Performed By: #### T 7, LIPA, TSH, AMADOU, CMP #### [facility] [address] [place] [address] Dr. Krystle Heaton Platelet mean volume (Bld) [Entitic vol] 11.4 fL Normal 9.5-13.5 [facility] Comment on above: Performed By: #### T 7, LIPA, TSH, AMADOU, CMP #### [facility] [address] [place] [address] Dr. Krystle Heaton PLT 190 103/ul Normal 150-450 [facility] Comment on above: Performed By: #### T 7, LIPA, TSH, AMADOU, CMP #### [facility] [address] [place] [address] Dr. Krystle Heaton RBC 4.13 106/ul Critically low 4.70-6.10 [facility] Comment on above: Performed By: #### T 7, LIPA, TSH, AMADOU, CMP #### [facility] [address] [place] [address] Dr. Krystle Heaton WBC 4.7 103/ul Normal 4.0-11.0 [facility] Comment on above: Performed By: #### T 7, LIPA, TSH, AMADOU, CMP #### [facility] [address] [place] [address] Dr. Krystle Heaton PROTIMEon 07-28-2021 INR Coag (PPP) [Relative time] 1.00 {INR} Normal [facility] Comment on above: Performed By: #### H BSANS #### [facility] [address] [place] [address] Billy Devlin INR GUIDELINES SEE BELOW Normal [facility] Comment on above: Result Comment: MOUNA RED INR: 2.0 - 3.0 CONDITIONS NOT LISTED BELOW 2.5 - 3.5 FOR PROSTHETIC HEART VALVE REPLACEMENT 2.5 - 3.5 RECURRENT THROMBOSIS Performed By: #### H BSANS #### [facility] [address] [place] [address] Billy Devlin PT Coag (PPP) [Time] 10.8 s Normal 9.0-11.6 [facility] Comment on above: Performed By: #### H BSANS #### [facility] [address] [place] [address] Billy Devlin CBC AUTO DIFFon 07-09-2021 BASO # 0.0 103/ul Normal 0.0-0.1 [facility] Comment on above: Performed By: #### T 7, LIPA, TSH, AMADOU, CMP #### [facility] [address] [place] [address] Dr. Krystle Heaton Basophils/100 WBC (Bld) 0.4 % Normal 0.2-2.0 [facility] Comment on above: Performed By: #### T 7, LIPA, TSH, AMADOU, CMP #### [facility] [address] [place] [address] Dr. Krystle Heaton EO # 0.2 103/ul Normal 0.0-0.7 [facility] Comment on above: Performed By: #### T 7, LIPA, TSH, AMADOU, CMP #### [facility] [address] [place] [address] Dr. Krystle Heaton Eosinophils/100 WBC (Bld) 2.9 % Normal 0.9-7.0 [facility] Comment on above: Performed By: #### T 7, LIPA, TSH, AMADOU, CMP #### [facility] [address] [place] [address] Dr. Krystle Heaton Erythrocyte distribution width (RBC) [Ratio] 13.9 % Normal 11.0-15.0 [facility] Comment on above: Performed By: #### T 7, LIPA, TSH, AMADOU, CMP #### [facility] [address] [place] [address] Dr. Krystle Heaton Hematocrit (Bld) [Volume fraction] 40.4 % Critically low 42.0-54.0 [facility] Comment on above: Performed By: #### T 7, LIPA, TSH, AMADOU, CMP #### [facility] [address] [place] [address] Dr. Krsytle Heaton Hemoglobin (Bld) [Mass/Vol] 12.3 g/dL Critically low 14.0-18.0 [facility] Comment on above: Performed By: #### T 7, LIPA, TSH, AMADOU, CMP #### [facility] [address] [place] [address] Dr. Krystle Heaton IG # 0.03 10e3/ul Normal 0.00-0.03 [facility] Comment on above: Performed By: #### T 7, LIPA, TSH, AMADOU, CMP #### [facility] [address] [place] [address] Dr. Krystle Heaton IG % 0.6 % Critically high 0.0-0.5 [facility] Comment on above: Performed By: #### T 7, LIPA, TSH, AMADOU, CMP #### [facility] [address] [place] [address] Dr. Krystle Heaton LYMPH # 1.5 103/ul Normal 1.2-3.8 [facility] Comment on above: Performed By: #### T 7, LIPA, TSH, AMADOU, CMP #### [facility] [address] [place] [address] Dr. Krystle Heaton Lymphocytes/100 WBC (Bld) 28.3 % Normal 20.5-60.0 [facility] Comment on above: Performed By: #### T 7, LIPA, TSH, AMADOU, CMP #### [facility] [address] [place] [address] Dr. Krystle Heaton MANUAL DIFF REQ NO Normal [facility] Comment on above: Performed By: #### T 7, LIPA, TSH, AMADOU, CMP #### [facility] [address] [place] [address] Dr. Krystle Heaton MCH (RBC) [Entitic mass] 28.3 pg Normal 25.9-34.0 [facility] Comment on above: Performed By: #### T 7, LIPA, TSH, AMADOU, CMP #### [facility] [address] [place] [address] Dr. Krystle Heaton MCHC (RBC) [Mass/Vol] 30.4 g/dL Normal 29.9-35.2 [facility] Comment on above: Performed By: #### T 7, LIPA, TSH, AMADOU, CMP #### [facility] [address] [place] [address] Dr. Krystle Heaton MCV (RBC) [Entitic vol] 93.1 fL Normal 80.0-94.0 [facility] Comment on above: Performed By: #### T 7, LIPA, TSH, AMADOU, CMP #### [facility] [address] [place] [address] Dr. Krystle Heaton MONO # 0.7 103/ul Normal 0.3-0.8 [facility] Comment on above: Performed By: #### T 7, LIPA, TSH, AMADOU, CMP #### [facility] [address] [place] [address] Dr. Krystle Heaton Monocytes/100 WBC (Bld) 13.4 % Critically high 1.7-12.0 [facility] Comment on above: Performed By: #### T 7, LIPA, TSH, AMADOU, CMP #### [facility] [address] [place] [address] Dr. Krystle Heaton NEUT # 2.8 103/ul Normal 1.4-6.5 [facility] Comment on above: Performed By: #### T 7, LIPA, TSH, AMADOU, CMP #### [facility] [address] [place] [address] Dr. Krystle Heaton Neutrophils/100 WBC (Bld) 54.4 % Normal 43.0-75.0 [facility] Comment on above: Performed By: #### T 7, LIPA, TSH, AMADOU, CMP #### [facility] [address] [place] [address] Dr. Krystle Heatno Platelet mean volume (Bld) [Entitic vol] 11.7 fL Normal 9.5-13.5 [facility] Comment on above: Performed By: #### T 7, LIPA, TSH, AMADOU, CMP #### [facility] [address] [place] [address] Dr. Krystle Heaton PLT 192 103/ul Normal 150-450 [facility] Comment on above: Performed By: #### T 7, LIPA, TSH, AMADOU, CMP #### [facility] [address] [place] [address] Dr. Krystle Heaton RBC 4.34 106/ul Critically low 4.70-6.10 [facility] Comment on above: Performed By: #### T 7, LIPA, TSH, AMADOU, CMP #### [facility] [address] [place] [address] Dr. Krystle Heaton WBC 5.2 103/ul Normal 4.0-11.0 [facility] Comment on above: Performed By: #### T 7, LIPA, TSH, AMADOU, CMP #### [facility] [address] [place] [address] Dr. Krystle Heaton FERRITINon 07-09-2021 Ferritin [Mass/Vol] 122.0 ng/mL Normal 17.9-464.0 [facility] Comment on above: Performed By: #### T 7, LIPA, TSH, AMADOU, CMP #### [facility] [address] [place] [address] Dr. Krystle Heaton CBC AUTO DIFFon 06-11-2021 BASO # 0.0 103/ul Normal 0.0-0.1 [facility] Comment on above: Performed By: #### T 7, LIPA, TSH, AMADOU, CMP #### [facility] [address] [place] [address] Dr. Krystle Heaton Basophils/100 WBC (Bld) 0.7 % Normal 0.2-2.0 [facility] Comment on above: Performed By: #### T 7, LIPA, TSH, AMADOU, CMP #### [facility] [address] [place] [address] Dr. Krystle Heaton EO # 0.2 103/ul Normal 0.0-0.7 [facility] Comment on above: Performed By: #### T 7, LIPA, TSH, AMADOU, CMP #### [facility] [address] [place] [address] Dr. Krystle Heaton Eosinophils/100 WBC (Bld) 3.9 % Normal 0.9-7.0 [facility] Comment on above: Performed By: #### T 7, LIPA, TSH, AMADOU, CMP #### [facility] [address] [place] [address] Dr. Krystle Heaton Erythrocyte distribution width (RBC) [Ratio] 13.0 % Normal 11.0-15.0 [facility] Comment on above: Performed By: #### T 7, LIPA, TSH, AMADOU, CMP #### [facility] [address] [place] [address] Dr. Krystle Heaton Hematocrit (Bld) [Volume fraction] 39.0 % Critically low 42.0-54.0 [facility] Comment on above: Performed By: #### T 7, LIPA, TSH, AMADOU, CMP #### [facility] [address] [place] [address] Dr. Krystle Heaton Hemoglobin (Bld) [Mass/Vol] 12.4 g/dL Critically low 14.0-18.0 [facility] Comment on above: Performed By: #### T 7, LIPA, TSH, AMADOU, CMP #### [facility] [address] [place] [address] Dr. Krystle Heaton IG # 0.01 10e3/ul Normal 0.00-0.03 [facility] Comment on above: Performed By: #### T 7, LIPA, TSH, AMADOU, CMP #### [facility] [address] [place] [address] Dr. Krystle Heaton IG % 0.2 % Normal 0.0-0.5 [facility] Comment on above: Performed By: #### T 7, LIPA, TSH, AMADOU, CMP #### [facility] [address] [place] [address] Dr. Krystle Heaton LYMPH # 1.0 103/ul Critically low 1.2-3.8 [facility] Comment on above: Performed By: #### T 7, LIPA, TSH, AMADOU, CMP #### [facility] [address] [place] [address] Dr. Krystle Heaton Lymphocytes/100 WBC (Bld) 23.1 % Normal 20.5-60.0 [facility] Comment on above: Performed By: #### T 7, LIPA, TSH, AMADOU, CMP #### [facility] [address] [place] [address] Dr. Krystle Heaton MANUAL DIFF REQ NO Normal [facility] Comment on above: Performed By: #### T 7, LIPA, TSH, AMADOU, CMP #### [facility] [address] [place] [address] Dr. Krystle Heaton MCH (RBC) [Entitic mass] 31.2 pg Normal 25.9-34.0 [facility] Comment on above: Performed By: #### T 7, LIPA, TSH, AMADOU, CMP #### [facility] [address] [place] [address] Dr. Krystle Heaton MCHC (RBC) [Mass/Vol] 31.8 g/dL Normal 29.9-35.2 [facility] Comment on above: Performed By: #### T 7, LIPA, TSH, AMADOU, CMP #### [facility] [address] [place] [address] Dr. Krystle Heaton MCV (RBC) [Entitic vol] 98.2 fL Critically high 80.0-94.0 [facility] Comment on above: Performed By: #### T 7, LIPA, TSH, AMADOU, CMP #### [facility] [address] [place] [address] Dr. Krystle Heaton MONO # 0.5 103/ul Normal 0.3-0.8 [facility] Comment on above: Performed By: #### T 7, LIPA, TSH, AMADOU, CMP #### [facility] [address] [place] [address] Dr. Krystle Heaton Monocytes/100 WBC (Bld) 10.4 % Normal 1.7-12.0 [facility] Comment on above: Performed By: #### T 7, LIPA, TSH, AMADOU, CMP #### [facility] [address] [place] [address] Dr. Krystle Heaton NEUT # 2.7 103/ul Normal 1.4-6.5 [facility] Comment on above: Performed By: #### T 7, LIPA, TSH, AMADOU, CMP #### [facility] [address] [address] [address] Krystle Heaton Neutrophils/100 WBC (Bld) 61.7 % Normal 43.0-75.0 [facility] Comment on above: Performed By: #### T 7, LIPA, TSH, AMADOU, CMP #### [facility] [address] [place] [address] Dr. Krystle Heaton Platelet mean volume (Bld) [Entitic vol] 10.8 fL Normal 9.5-13.5 [facility] Comment on above: Performed By: #### T 7, LIPA, TSH, AMADOU, CMP #### [facility] [address] [place] [address] Dr. Krystle Heaton PLT 197 103/ul Normal 150-450 [facility] Comment on above: Performed By: #### T 7, LIPA, TSH, AMADOU, CMP #### [facility] [address] [place] [address] Dr. Krystle Heaton RBC 3.97 106/ul Critically low 4.70-6.10 [facility] Comment on above: Performed By: #### T 7, LIPA, TSH, AMADOU, CMP #### [facility] [address] [place] [address] Dr. Krystle Heaton WBC 4.3 103/ul Normal 4.0-11.0 [facility] Comment on above: Performed By: #### T 7, LIPA, TSH, AMADOU, CMP #### [facility] [address] [place] [address] Dr. Krystle Heaton FERRITINon 06-11-2021 Ferritin [Mass/Vol] 107.0 ng/mL Normal 17.9-464.0 [facility] Comment on above: Performed By: #### T 7, LIPA, TSH, AMADOU, CMP #### [facility] [address] [place] [address] Dr. Krystle Heaton CBC AUTO DIFFon 05-28-2021 BASO # 0.0 103/ul Normal 0.0-0.1 [facility] Comment on above: Performed By: #### T 7, LIPA, TSH, AMADOU, CMP #### [facility] [address] [place] [address] Dr. Krystle Heaton Basophils/100 WBC (Bld) 0.5 % Normal 0.2-2.0 [facility] Comment on above: Performed By: #### T 7, LIPA, TSH, AMADOU, CMP #### [facility] [address] [place] [address] Dr. Krystle Heaton EO # 0.1 103/ul Normal 0.0-0.7 [facility] Comment on above: Performed By: #### T 7, LIPA, TSH, AMADOU, CMP #### [facility] [address] [place] [address] Dr. Krystle Heaton Eosinophils/100 WBC (Bld) 3.5 % Normal 0.9-7.0 [facility] Comment on above: Performed By: #### T 7, LIPA, TSH, AMADOU, CMP #### [facility] [address] [place] [address] Dr. Krystle Heaton Erythrocyte distribution width (RBC) [Ratio] 12.6 % Normal 11.0-15.0 [facility] Comment on above: Performed By: #### T 7, LIPA, TSH, AMADOU, CMP #### [facility] [address] [place] [address] Dr. Krystle Heaton Hematocrit (Bld) [Volume fraction] 39.8 % Critically low 42.0-54.0 [facility] Comment on above: Performed By: #### T 7, LIPA, TSH, AMADOU, CMP #### [facility] [address] [place] [address] Dr. Krystle Heaton Hemoglobin (Bld) [Mass/Vol] 12.5 g/dL Critically low 14.0-18.0 [facility] Comment on above: Performed By: #### T 7, LIPA, TSH, AMADOU, CMP #### [facility] [address] [place] [address] Dr. Krystle Heaton IG # 0.00 10e3/ul Normal 0.00-0.03 [facility] Comment on above: Performed By: #### T 7, LIPA, TSH, AMADOU, CMP #### [facility] [address] [place] [address] Dr. Krystle Heaton IG % 0.0 % Normal 0.0-0.5 [facility] Comment on above: Performed By: #### T 7, LIPA, TSH, AMADOU, CMP #### [facility] [address] [place] [address] Dr. Krystle Heaton LYMPH # 1.2 103/ul Normal 1.2-3.8 [facility] Comment on above: Performed By: #### T 7, LIPA, TSH, AMADOU, CMP #### [facility] [address] [place] [address] Dr. Krystle Heaton Lymphocytes/100 WBC (Bld) 32.7 % Normal 20.5-60.0 [facility] Comment on above: Performed By: #### T 7, LIPA, TSH, AMADOU, CMP #### [facility] [address] [place] [address] Dr. Krystle Heaton MANUAL DIFF REQ NO Normal [facility] Comment on above: Performed By: #### T 7, LIPA, TSH, AMADOU, CMP #### [facility] [address] [place] [address] Dr. Krystle Heaton MCH (RBC) [Entitic mass] 32.1 pg Normal 25.9-34.0 [facility] Comment on above: Performed By: #### T 7, LIPA, TSH, AMADOU, CMP #### [facility] [address] [place] [address] Dr. Krystle Heaton MCHC (RBC) [Mass/Vol] 31.4 g/dL Normal 29.9-35.2 [facility] Comment on above: Performed By: #### T 7, LIPA, TSH, AMADOU, CMP #### [facility] [address] [place] [address] Dr. Krystle Heaton MCV (RBC) [Entitic vol] 102.3 fL Critically high 80.0-94.0 [facility] Comment on above: Performed By: #### T 7, LIPA, TSH, AMADOU, CMP #### [facility] [address] [address] [address] Krystle Heaton MONO # 0.4 103/ul Normal 0.3-0.8 [facility] Comment on above: Performed By: #### T 7, LIPA, TSH, AMADOU, CMP #### [facility] [address] [place] [address] Dr. Krystle Heaton Monocytes/100 WBC (Bld) 10.5 % Normal 1.7-12.0 [facility] Comment on above: Performed By: #### T 7, LIPA, TSH, AMADOU, CMP #### [facility] [address] [place] [address] Dr. Krystle Heaton NEUT # 2.0 103/ul Normal 1.4-6.5 [facility] Comment on above: Performed By: #### T 7, LIPA, TSH, AMADOU, CMP #### [facility] [address] [place] [address] Dr. Krystle Heaton Neutrophils/100 WBC (Bld) 52.8 % Normal 43.0-75.0 [facility] Comment on above: Performed By: #### T 7, LIPA, TSH, AMADOU, CMP #### [facility] [address] [place] [address] Dr. Krystle Heaton Platelet mean volume (Bld) [Entitic vol] 10.7 fL Normal 9.5-13.5 [facility] Comment on above: Performed By: #### T 7, LIPA, TSH, AMADOU, CMP #### [facility] [address] [place] [address] Dr. Krystle Heaton PLT 227 103/ul Normal 150-450 [facility] Comment on above: Performed By: #### T 7, LIPA, TSH, AMADOU, CMP #### [facility] [address] [place] [address] Dr. Krystle Heaton RBC 3.89 106/ul Critically low 4.70-6.10 [facility] Comment on above: Performed By: #### T 7, LIPA, TSH, AMADOU, CMP #### [facility] [address] [address] [address] Krystle Heaton WBC 3.7 103/ul Critically low 4.0-11.0 [facility] Comment on above: Performed By: #### T 7, LIPA, TSH, AMADOU, CMP #### [facility] [address] [place] [address] Dr. Krystle Heaton FERRITINon 05-28-2021 Ferritin [Mass/Vol] 169.0 ng/mL Normal 17.9-464.0 [facility] Comment on above: Performed By: #### F ERR #### [facility] [address] [address] [address] Krystle Heaton METHYLMALONIC ACID (MMA)on 0 05-18-2021 Disclaimer: Comment Normal [facility] Comment on above: Result Comment: This test was developed and its performance characteristics determined by [employer]. It has not been cleared or approved by the Food and Drug Administration. Performed By: #### T 7, LIPA, TSH, AMADOU, CMP #### [facility] [address] [place] [address] Dr. Krystle Heaton Methylmalonic Acid, Serum 124 nmol/L Normal 0-378 [facility] Comment on above: Performed By: #### T 7, LIPA, TSH, AMADOU, CMP #### [facility] [address] [place] [address] Dr. Krystle Heaton HOMOCYSTEINEon 05-16-2021 Homocyst(e)ine, Plasma 19.5 umol/L Critically high 0.0-14.5 [facility] Comment on above: Performed By: #### T 7, LIPA, TSH, AMADOU, CMP #### [facility] [address] [place] [address] Dr. Krystle Heaton CBC AUTO DIFFon 05-15-2021 BASO # 0.0 103/ul Normal 0.0-0.1 [facility] Comment on above: Performed By: #### T 7, LIPA, TSH, AMADOU, CMP #### [facility] [address] [place] [address] Dr. rKystle Heaton Basophils/100 WBC (Bld) 0.5 % Normal 0.2-2.0 [facility] Comment on above: Performed By: #### T 7, LIPA, TSH, AMADOU, CMP #### [facility] [address] [place] [address] Dr. Krystle Heaton EO # 0.1 103/ul Normal 0.0-0.7 [facility] Comment on above: Performed By: #### T 7, LIPA, TSH, AMADOU, CMP #### [facility] [address] [place] [address] Dr. Krystle Heaton Eosinophils/100 WBC (Bld) 1.8 % Normal 0.9-7.0 [facility] Comment on above: Performed By: #### T 7, LIPA, TSH, AMADOU, CMP #### [facility] [address] [place] [address] Dr. Krystle Heaton Erythrocyte distribution width (RBC) [Ratio] 12.7 % Normal 11.0-15.0 [facility] Comment on above: Performed By: #### T 7, LIPA, TSH, AMADOU, CMP #### [facility] [address] [place] [address] Dr. Krystle Heaton Hematocrit (Bld) [Volume fraction] 39.4 % Critically low 42.0-54.0 [facility] Comment on above: Performed By: #### T 7, LIPA, TSH, AMADOU, CMP #### [facility] [address] [place] [address] Dr. Krystle Heaton Hemoglobin (Bld) [Mass/Vol] 12.9 g/dL Critically low 14.0-18.0 [facility] Comment on above: Performed By: #### T 7, LIPA, TSH, AMADOU, CMP #### [facility] [address] [place] [address] Dr. Krystle Heaton IG # 0.02 10e3/ul Normal 0.00-0.03 [facility] Comment on above: Performed By: #### T 7, LIPA, TSH, AMADOU, CMP #### [facility] [address] [place] [address] Dr. Krystle Heaton IG % 0.4 % Normal 0.0-0.5 [facility] Comment on above: Performed By: #### T 7, LIPA, TSH, AMADOU, CMP #### [facility] [address] [place] [address] Dr. Krystle Heaton LYMPH # 1.4 103/ul Normal 1.2-3.8 [facility] Comment on above: Performed By: #### T 7, LIPA, TSH, AMADOU, CMP #### [facility] [address] [place] [address] Dr. Krystle Heaton Lymphocytes/100 WBC (Bld) 24.9 % Normal 20.5-60.0 [facility] Comment on above: Performed By: #### T 7, LIPA, TSH, AMADOU, CMP #### [facility] [address] [place] [address] Dr. Krystle Heaton MANUAL DIFF REQ NO Normal [facility] Comment on above: Performed By: #### T 7, LIPA, TSH, AMADOU, CMP #### [facility] [address] [place] [address] Dr. Krystle Heaton MCH (RBC) [Entitic mass] 34.0 pg Normal 25.9-34.0 [facility] Comment on above: Performed By: #### T 7, LIPA, TSH, AMADOU, CMP #### [facility] [address] [place] [address] Dr. Krystle Heaton MCHC (RBC) [Mass/Vol] 32.7 g/dL Normal 29.9-35.2 [facility] Comment on above: Performed By: #### T 7, LIPA, TSH, AMADOU, CMP #### [facility] [address] [place] [address] Dr. Krystle Heaton MCV (RBC) [Entitic vol] 104.0 fL Critically high 80.0-94.0 [facility] Comment on above: Performed By: #### T 7, LIPA, TSH, AMADOU, CMP #### [facility] [address] [place] [address] Dr. Krystle Heaton MONO # 0.7 103/ul Normal 0.3-0.8 [facility] Comment on above: Performed By: #### T 7, LIPA, TSH, AMADOU, CMP #### [facility] [address] [address] [address] Krystle Heaton Monocytes/100 WBC (Bld) 11.8 % Normal 1.7-12.0 [facility] Comment on above: Performed By: #### T 7, LIPA, TSH, AMADOU, CMP #### [facility] [address] [place] [address] Dr. Krystle Heaton NEUT # 3.3 103/ul Normal 1.4-6.5 [facility] Comment on above: Performed By: #### T 7, LIPA, TSH, AMADOU, CMP #### [facility] [address] [place] [address] Dr. Krystle Heaton Neutrophils/100 WBC (Bld) 60.6 % Normal 43.0-75.0 [facility] Comment on above: Performed By: #### T 7, LIPA, TSH, AMADOU, CMP #### [facility] [address] [place] [address] Dr. Krystle Heaton Platelet mean volume (Bld) [Entitic vol] 10.2 fL Normal 9.5-13.5 [facility] Comment on above: Performed By: #### T 7, LIPA, TSH, AMADOU, CMP #### [facility] [address] [place] [address] Dr. Krystle Heaton PLT 196 103/ul Normal 150-450 [facility] Comment on above: Performed By: #### T 7, LIPA, TSH, AMADOU, CMP #### [facility] [address] [place] [address] Dr. Krystle Heaton RBC 3.79 106/ul Critically low 4.70-6.10 [facility] Comment on above: Performed By: #### T 7, LIPA, TSH, AMADOU, CMP #### [facility] [address] [place] [address] Dr. Krystle Heaton WBC 5.5 103/ul Normal 4.0-11.0 [facility] Comment on above: Performed By: #### T 7, LIPA, TSH, AMADOU, CMP #### [facility] [address] [place], [place] [id number] Dr. Krystle Heaton FERRITINon 05-15-2021 Ferritin [Mass/Vol] 302.0 ng/mL Normal 17.9-464.0 [facility] Comment on above: Performed By: #### C BC #### [facility] [address] [place], [place] [id number] Billy Devlin PROF 14(COMP METB)on 021 Albumin [Mass/Vol] 3.5 g/dL Normal 3.5-5.[address] [facility] Comment on above: Performed By: #### C BC #### [facility] [address] [place], [place] [id number] Billycarrillo Devlin Albumin/Globulin [Mass ratio] 1.0 {ratio} Normal [facility] Comment on above: Performed By: #### C BC #### [facility] [address] [place] [address] Billy Quita ALP [Catalytic activity/Vol] 71 U/L Normal 38-126 [facility] Comment on above: Performed By: #### C BC #### [facility] [address] [place], [place] [id number] Billy Quita ALT [Catalytic activity/Vol] 40 U/L Normal 21-72 [facility] Comment on above: Performed By: #### C BC #### [facility] [address] [place], [place] [address] Billy Quita Anion gap [Moles/Vol] 17.5 mmol/L Normal [facility] Comment on above: Performed By: #### C BC #### [facility] [address] [place], [place] [address] Billy Quita AST [Catalytic activity/Vol] 43 U/L Normal 17-59 [facility] Comment on above: Performed By: #### C BC #### [facility] [address] [place], [place] [id number] Billy Quita Bilirubin [Mass/Vol] 0.3 mg/dL Normal 0.2-1.3 [facility] Comment on above: Performed By: #### C BC #### [facility] [address] [address] Billy Quita Calcium [Mass/Vol] 8.8 mg/dL Normal 8.4-10.[address] [facility] Comment on above: Performed By: #### C BC #### [facility] [address] [address] Billy Quita Chloride [Moles/Vol] 101 mmol/L Normal 98-107 [facility] Comment on above: Performed By: #### C BC #### [facility] [address] [address] Billy Quita CO2 [Moles/Vol] 26.6 mmol/L Normal 22.0-30.0 [facility] [place] Comment on above: Performed By: #### C BC #### [facility] [address] [place] [address] Billy Quita Creatinine [Mass/Vol] 0.88 mg/dL Normal 0.66-1.25 [facility] Comment on above: Performed By: #### C BC #### [facility] [address] [place] [address] Billy Quita EGFR-AF SIERRA LEONEAN >60 Normal >=60 [facility] Comment on above: Performed By: #### C BC #### [facility] [address] [place] [address] Billy Quita EGFR-NON AF SIERRA LEONEAN >60 Normal >=60 [facility] Comment on above: Performed By: #### C BC #### [facility] [address] [place] [address] Billy Quita Globulin (S) [Mass/Vol] 3.6 g/dL Normal [facility] Comment on above: Performed By: #### C BC #### [facility] [address] [place] [address] Billy Quita Glucose [Mass/Vol] 101 mg/dL Normal 74-[address] [facility] Comment on above: Performed By: #### C BC #### [facility] [address] [place], [place] [address] Billy Quita Potassium [Moles/Vol] 4.1 mmol/L Normal 3.4-5.0 [facility] Comment on above: Performed By: #### C BC #### [facility] [address] [place], [place] [address] Billy Quita Protein [Mass/Vol] 7.1 g/dL Normal 6.1-8.2 [facility] Comment on above: Performed By: #### C BC #### [facility] [address] [place], [place] [address] Billy Quita Sodium [Moles/Vol] 141 mmol/L Normal 137-[address] [facility] Comment on above: Performed By: #### C BC #### [facility] [address] [id number] Billy Quita Urea nitrogen [Mass/Vol] 11.0 mg/dL Normal 9.0-20.0 [facility] Comment on above: Performed By: #### C BC #### [facility] [address] [id number] Billy Quita Urea nitrogen/Creatinine [Mass ratio] 12.5 mg/mg Normal [facility] Comment on above: Performed By: #### C BC #### [facility] [address] [place], [place] [address] Billy Quita IN BIOPSY LIVER PERCUTANEOUS NEEDLEon 05-08-2021 IN BIOPSY LIVER PERCUTANEOUS NEEDLE Patient Name: CHUY CHAPIN STUDY: IN BIOPSY LIVER PERCUTANEOUS NEEDLE; ; 05/08/2021 11:46 am INDICATION: None. COMPARISON: None. ACCESSION NUMBER(S): [id number] ORDERING CLINICIAN: ENOCH HERRMANN TECHNIQUE: CONSENT: The [...] and cap. Additionally, the performing physician and cleaner assistant used maximum barrier technique to include [...] were made using an 18 gauge spring-loaded Wimdu core biopsy needle. Good core samples were [...] above Electronically signed by: URI BACON MD [facility] Order Reconciliationon 05-08 Order Reconciliation Page 1 [...] tab(s) orally 2 times a day Normal [facility] Surgical Pathology Depar tmenton 05-08-2021 [facility] Surgical Pathology Department Name CHUY CHAPIN Pathologist: SUSAN BLACK M.D., PhD. Date of Procedure: 05/08/2021 Date Received: 05/08/2021 Date Reported 05/11/2021 Submitting Physician: ENOCH HERRMANN MD Location: [facility] Copy To/Referring/Attending: URI BACON MD Other External [...] positive and negative controls which stained appropriately. [facility] Department of Pathology [address] [place] [address] Normal [facility] Comment on above: Performed By: #### U HCS #### [facility] Surgical Pathology Department [address] [place] [address] CBC AUTO DIFFon 05-04-2021 BASO # 0.0 103/ul Normal 0.0-0.1 [facility] Comment on above: Performed By: #### F ERR #### [facility] [address] [place] [address] Dr. Krystle Heaton Basophils/100 WBC (Bld) 0.5 % Normal 0.2-2.0 [facility] Comment on above: Performed By: #### F ERR #### [facility] [address] [place] [address] Dr. Krystle Heaton EO # 0.1 103/ul Normal 0.0-0.7 [facility] Comment on above: Performed By: #### F ERR #### [facility] [address] [place] [address] Dr. Krystle Heaton Eosinophils/100 WBC (Bld) 2.5 % Normal 0.9-7.0 [facility] Comment on above: Performed By: #### F ERR #### [facility] [address] [place] [address] Dr. Krystle Heaton Erythrocyte distribution width (RBC) [Ratio] 12.5 % Normal 11.0-15.0 [facility] Comment on above: Performed By: #### F ERR #### [facility] [address] [place] [address] Dr. Krystle Heaton Hematocrit (Bld) [Volume fraction] 34.3 % Critically low 42.0-54.0 [facility] Comment on above: Performed By: #### F ERR #### [facility] [address] [place] [address] Dr. Krystle Heaton Hemoglobin (Bld) [Mass/Vol] 11.2 g/dL Critically low 14.0-18.0 [facility] Comment on above: Performed By: #### F ERR #### [facility] [address] [place] [address] Dr. Krystle Heaton IG # 0.01 10e3/ul Normal 0.00-0.03 [facility] Comment on above: Performed By: #### F ERR #### [facility] [address] [place] [address] Dr. Krystle Heaton IG % 0.3 % Normal 0.0-0.5 [facility] Comment on above: Performed By: #### F ERR #### [facility] [address] [place] [address] Dr. Krystle Heaton LYMPH # 1.3 103/ul Normal 1.2-3.8 [facility] Comment on above: Performed By: #### F ERR #### [facility] [address] [place] [address] Dr. Krystle Heaton Lymphocytes/100 WBC (Bld) 33.3 % Normal 20.5-60.0 [facility] Comment on above: Performed By: #### F ERR #### [facility] [address] [place] [address] Dr. Krystle Heaton MANUAL DIFF REQ NO Normal [facility] Comment on above: Performed By: #### F ERR #### [facility] [address] [place] [address] Dr. Krystle Heaton MCH (RBC) [Entitic mass] 35.6 pg Critically high 25.9-34.0 [facility] Comment on above: Performed By: #### F ERR #### [facility] [address] [address] [address] Krystle Heaton MCHC (RBC) [Mass/Vol] 32.7 g/dL Normal 29.9-35.2 [facility] Comment on above: Performed By: #### F ERR #### [facility] [address] [place] [address] Dr. Krystle Heaton MCV (RBC) [Entitic vol] 108.9 fL Critically high 80.0-94.0 [facility] Comment on above: Performed By: #### F ERR #### [facility] [address] [place] [address] Dr. Krystle Heaton MONO # 0.4 103/ul Normal 0.3-0.8 [facility] Comment on above: Performed By: #### F ERR #### [facility] [address] [place] [address] Dr. Krystle Heaton Monocytes/100 WBC (Bld) 10.0 % Normal 1.7-12.0 [facility] Comment on above: Performed By: #### F ERR #### [facility] [address] [place] [address] Dr. Krystle Heaton NEUT # 2.1 103/ul Normal 1.4-6.5 [facility] Comment on above: Performed By: #### F ERR #### [facility] [address] [place] [address] Dr. Krystle Heaton Neutrophils/100 WBC (Bld) 53.4 % Normal 43.0-75.0 [facility] Comment on above: Performed By: #### F ERR #### [facility] [address] [place] [address] Dr. Krystle Heaton Platelet mean volume (Bld) [Entitic vol] 10.7 fL Normal 9.5-13.5 [facility] Comment on above: Performed By: #### F ERR #### [facility] [address] [place] [address] Dr. Krystle Heaton PLT 174 103/ul Normal 150-450 [facility] Comment on above: Performed By: #### F ERR #### [facility] [address] [place] [address] Dr. Krystle Heaton RBC 3.15 106/ul Critically low 4.70-6.10 [facility] Comment on above: Result Comment: SLID E REVIEWED. 2+ MACROCYTOSIS SEEN Performed By: #### F ERR #### [facility] [address] [place] [address] Dr. Krystle Heaton WBC 4.0 103/ul Normal 4.0-11.0 [facility] Comment on above: Performed By: #### F ERR #### [facility] [address] [place] [address] Dr. Krystle Heaton FERRITINon 05-04-2021 Ferritin [Mass/Vol] 417.0 ng/mL Normal 17.9-464.0 [facility] Comment on above: Performed By: #### T 7, LIPA, TSH, AMADOU, CMP #### [facility] [address] [place] [address] Dr. Krystle Heaton AFP (TUMOR MARKER)on 021 AFP, Serum, Tumor Marker 5.2 ng/mL Normal 0.0-8.3 [facility] Comment on above: Result Comment: [facility] [employer] [facility] Electrochemiluminescence Immunoassay (ECLIA) . Values obtained with different assay methods or kits cannot be used interchangeably. Results cannot be interpreted as absolute evidence of the presence or absence of malignant disease. . This test is not interpretable in females. Performed By: #### T 7, LIPA, TSH, AMADOU, CMP #### [facility] [address] [place] [address] Dr. Krystle Heaton [id number] 2020 [id number] , Serum 132 mg/dL Normal 101-187 [facility] Comment on above: Performed By: #### H BSANS #### [facility] [address] [place] [address] Billy Devlin NE by IFAon 05-02-2021 Antinuclear Antibodies, IFA Negative Normal [facility] Comment on above: Result Comment: Nega tive <1:80 Borderline 1:80 Positive >1:80 Performed By: #### A NAIFA #### [facility] [address] [address] Billy Devlin CERULOPLASMINon 05-02-2021 Ceruloplasmin 27.8 mg/dL Normal 16.0-31.0 [facility] Comment on above: Performed By: #### C BC #### [facility] [address] [place], [place] [address] Billy Devlin HEP A AB TOTALon 05-02-2021 Hep A Ab, Total Negative Normal Negative [facility] Comment on above: Performed By: #### H BSANS #### [facility] [address] [place] [address] Billy Devlin HEP B COREon 05-02-2021 Hep B Core Ab, Tot Negative Normal Negative [facility] Comment on above: Performed By: #### T 7, LIPA, TSH, AMADOU, CMP #### [facility] [address] [place] [address] Dr. Krystle Heaton HEP B SURFACE ANTIGEN SCREEN on 05-02-2021 HBsAg Screen Negative Normal Negative [facility] Comment on above: Performed By: #### H BSANS #### [facility] [address] [place] [address] Billy Devlin HEPATITIS B SURFACE ANTIBODY , QUANTon 05-02-2021 Hepatitis B Surf AB Quant <3.1 Critically low Immunity>9. 9 [facility] Comment on above: Result Comment: Stat us of Immunity Anti-HBs Level Inconsistent with Immunity 0.0 - 9.9 Consistent with Immunity >9.9 Performed By: #### H BSANS #### [facility] [address] [place] [address] Billy Devlin HEPATITIS C ANTIBODYon 05-02 Hep C Virus Ab <0.1 Normal 0.0-0.9 [facility] Comment on above: Result Comment: Nega tive: < 0.8 Indeterminate: 0.8 - 0.9 Positive: > 0.9 . The CDC recommends that a positive HCV antibody result be followed up with a HCV Nucleic Acid Amplification test (331730). Performed By: #### T 7, LIPA, TSH, AMADOU, CMP #### [facility] [address] [place] [address] Dr. Krystle Heaton MITICHONDRIAL (M2) ANTIBODYo n 05-02-2021 Mitochondrial (M2) Antibody <20.0 Normal 0.0-20.0 [facility] Comment on above: Result Comment: Nega tive 0.0 - 20.0 Equivocal 20.1 - 24.9 Positive >24.9 . Mitochondrial (M2) Antibodies are found in 90-96% of patients with primary biliary cirrhosis. Performed By: #### F ERR #### [facility] [address] [place] [address] Dr. Krystle Heaton CBC AUTO DIFFon 05-01-2021 BASO # 0.1 103/ul Normal 0.0-0.1 [facility] Comment on above: Performed By: #### C BC #### [facility] [address] [place] [address] Billy Quita Basophils/100 WBC (Bld) 1.5 % Normal 0.2-2.0 [facility] Comment on above: Performed By: #### C BC #### [facility] [address] [place] [address] Billy Quita EO # 0.1 103/ul Normal 0.0-0.7 [facility] Comment on above: Performed By: #### C BC #### [facility] [address] [place] [address] Billy Quita Eosinophils/100 WBC (Bld) 2.1 % Normal 0.9-7.0 [facility] Comment on above: Performed By: #### C BC #### [facility] [address] [place], [place] [address] Billy Quita Erythrocyte distribution width (RBC) [Ratio] 12.7 % Normal 11.0-15.0 [facility] Comment on above: Performed By: #### C BC #### [facility] [address] [place], [place] [address] Billy Quita Hematocrit (Bld) [Volume fraction] 34.6 % Critically low 42.0-54.0 [facility] Comment on above: Performed By: #### C BC #### [facility] [address] [place] [address] Billy Devlin Hemoglobin (Bld) [Mass/Vol] 11.2 g/dL Critically low 14.0-18.0 [facility] Comment on above: Performed By: #### C BC #### [facility] [address] [place] [address] Billycarrillo Devlin IG # 0.01 10e3/ul Normal 0.00-0.03 [facility] Comment on above: Performed By: #### C BC #### [facility] [address] [place] [address] Billy Devlin IG % 0.3 % Normal 0.0-0.5 [facility] Comment on above: Performed By: #### C BC #### [facility] [address] [place] [address] Billy Devlin LYMPH # 1.0 103/ul Critically low 1.2-3.8 [facility] Comment on above: Performed By: #### C BC #### [facility] [address] [place] [address] Billy Devlin Lymphocytes/100 WBC (Bld) 30.4 % Normal 20.5-60.0 [facility] Comment on above: Performed By: #### C BC #### [facility] [address] [place] [address] Billy Devlin MANUAL DIFF REQ NO Normal [facility] Comment on above: Performed By: #### C BC #### [facility] [address] [place] [address] Billy Devlin MCH (RBC) [Entitic mass] 35.8 pg Critically high 25.9-34.0 [facility] Comment on above: Performed By: #### C BC #### [facility] [address] [place] [address] Billy Devlin MCHC (RBC) [Mass/Vol] 32.4 g/dL Normal 29.9-35.2 [facility] Comment on above: Performed By: #### C BC #### [facility] [address] [id number] Billy Devlin MCV (RBC) [Entitic vol] 110.5 fL Critically high 80.0-94.0 [facility] Comment on above: Performed By: #### C BC #### [facility] [address] [id number] Billy Devlin MONO # 0.4 103/ul Normal 0.3-0.8 [facility] Comment on above: Performed By: #### C BC #### [facility] [address] [place], [place] [address] Billy Devlin Monocytes/100 WBC (Bld) 11.3 % Normal 1.7-12.0 [facility] Comment on above: Performed By: #### C BC #### [facility] [address] [place], [place] [address] Billy Deanen NEUT # 1.8 103/ul Normal 1.4-6.5 [facility] Comment on above: Performed By: #### C BC #### [facility] [address] [place], [place] [address] Billy Devlin Neutrophils/100 WBC (Bld) 54.4 % Normal 43.0-75.0 [facility] Comment on above: Performed By: #### C BC #### [facility] [address] [place], [place] [address] Billy Devlin Platelet mean volume (Bld) [Entitic vol] 11.3 fL Normal 9.5-13.5 [facility] Comment on above: Performed By: #### C BC #### [facility] [address] [place], [place] [address] Billy Quita PLT 142 103/ul Critically low 150-450 [facility] Comment on above: Performed By: #### C BC #### [facility] [address] [place], [place] [address] Billy Quita RBC 3.13 106/ul Critically low 4.70-6.10 [facility] Comment on above: Performed By: #### C BC #### [facility] [address] [place], [place] [address] Billy Quita WBC 3.4 103/ul Critically low 4.0-11.0 [facility] Comment on above: Performed By: #### C BC #### [facility] [address] [place], [place] [address] Billy Quita LIVER PROFILEon 05-01-2021 Albumin/Globulin [Mass ratio] 1.0 {ratio} Normal [facility] Comment on above: Performed By: #### H BSANS #### [facility] [address] [address] Billy Quita ALP [Catalytic activity/Vol] 67 U/L Normal 38-126 [facility] Comment on above: Performed By: #### H BSANS #### [facility] [address] [place] [address] Billy Quita ALT [Catalytic activity/Vol] 52 U/L Normal 21-72 [facility] Comment on above: Performed By: #### H BSANS #### [facility] [address] [place] [address] Billy Quita AST [Catalytic activity/Vol] 51 U/L Normal 17-59 [facility] Comment on above: Performed By: #### H BSANS #### [facility] [address] [place] [address] Billy Quita BILI, CONJUGATED 0.2 mg/dL Normal 0.0-0.3 [facility] Comment on above: Performed By: #### H BSANS #### [facility] [address] [place] [address] Billy Quita Bilirubin [Mass/Vol] 0.5 mg/dL Normal 0.2-1.3 [facility] Comment on above: Performed By: #### H BSANS #### [facility] [address] [place], [place] [address] Billy Quita Globulin (S) [Mass/Vol] 3.4 g/dL Normal [facility] Comment on above: Performed By: #### H BSANS #### [facility] [address] [place] [address] Billy Quita Protein [Mass/Vol] 6.9 g/dL Normal 6.1-8.[address] [facility] Comment on above: Performed By: #### H BSANS #### [facility] [address] [place], [place] [address] Billy Quita PROTIMEon 05-01-2021 INR Coag (PPP) [Relative time] 0.95 {INR} Normal [facility] Comment on above: Performed By: #### C BC #### [facility] [address] [place] [address] Billy Quita INR GUIDELINES SEE BELOW Normal [facility] Comment on above: Result Comment: MOUNA RED INR: 2.0 - 3.0 CONDITIONS NOT LISTED BELOW 2.5 - 3.5 FOR PROSTHETIC HEART VALVE REPLACEMENT 2.5 - 3.5 RECURRENT THROMBOSIS Performed By: #### C BC #### [facility] [address] [place] [address] Billy Quita PT Coag (PPP) [Time] 10.4 s Normal 9.0-11.6 [facility] Comment on above: Performed By: #### C BC #### [facility] [address] [place] [address] Billy Quita RENAL FUNCTION PANELon 05-01 Albumin [Mass/Vol] 3.5 g/dL Normal 3.5-5.[address] [facility] Comment on above: Performed By: #### H BSANS #### [facility] [address] [place] [address] Billy Quita Calcium [Mass/Vol] 8.7 mg/dL Normal 8.4-10.[address] [facility] Comment on above: Performed By: #### H BSANS #### [facility] [address] [place] [address] Billy Quita Chloride [Moles/Vol] 104 mmol/L Normal 98-107 [facility] Comment on above: Performed By: #### H BSANS #### [facility] [address] [place] [address] Billy Quita CO2 [Moles/Vol] 25.7 mmol/L Normal 22.0-30.0 [facility] Comment on above: Performed By: #### H BSANS #### [facility] [address] [id number] Billy Quita Creatinine [Mass/Vol] 1.01 mg/dL Normal 0.66-1.25 [facility] Comment on above: Performed By: #### H BSANS #### [facility] [address] [address] Billy Quita EGFR-AF SIERRA LEONEAN >60 Normal >=60 [facility] [place] Comment on above: Performed By: #### H BSANS #### [facility] [address] [address] Billy Quita EGFR-NON AF SIERRA LEONEAN >60 Normal >=60 [facility] Comment on above: Performed By: #### H BSANS #### [facility] [address] [place] [address] Billy Quita Glucose [Mass/Vol] 103 mg/dL Normal 74-[address] [facility] Comment on above: Performed By: #### H BSANS #### [facility] [address] [address] Billy Quita Phosphate [Mass/Vol] 3.6 mg/dL Normal 2.5-4.5 [facility] Comment on above: Performed By: #### H BSANS #### [facility] [address] [place] [address] Billy Quita Potassium [Moles/Vol] 4.2 mmol/L Normal 3.4-5.0 [facility] Comment on above: Performed By: #### H BSANS #### [facility] [address] [address] Billy Quita Sodium [Moles/Vol] 138 mmol/L Normal 137-[address] [facility] Comment on above: Performed By: #### H BSANS #### [facility] [address] [address] Billy Quita Urea nitrogen [Mass/Vol] 7.0 mg/dL Critically low 9.0-20.0 [facility] Comment on above: Performed By: #### H BSANS #### [facility] [address] [place] [address] Billy Devlin CBC AUTO DIFFon 04-27-2021 BASO # 0.0 103/ul Normal 0.0-0.1 [facility] Comment on above: Performed By: #### T 7, LIPA, TSH, AMADOU, CMP #### [facility] [address] [place] [address] Dr. Krystle Heaton Basophils/100 WBC (Bld) 0.9 % Normal 0.2-2.0 [facility] Comment on above: Performed By: #### T 7, LIPA, TSH, AMADOU, CMP #### [facility] [address] [place] [address] Dr. Krystle Heaton EO # 0.1 103/ul Normal 0.0-0.7 [facility] Comment on above: Performed By: #### T 7, LIPA, TSH, AMADOU, CMP #### [facility] [address] [place] [address] Dr. Krystle Heaton Eosinophils/100 WBC (Bld) 2.6 % Normal 0.9-7.0 [facility] Comment on above: Performed By: #### T 7, LIPA, TSH, AMADOU, CMP #### [facility] [address] [place] [address] Dr. Krystle Heaton Erythrocyte distribution width (RBC) [Ratio] 12.4 % Normal 11.0-15.0 [facility] Comment on above: Performed By: #### T 7, LIPA, TSH, AMADOU, CMP #### [facility] [address] [place] [address] Dr. Krystle Heaton Hematocrit (Bld) [Volume fraction] 36.8 % Critically low 42.0-54.0 [facility] Comment on above: Performed By: #### T 7, LIPA, TSH, AMADOU, CMP #### [facility] [address] [place] [address] Dr. Krystle Heaton Hemoglobin (Bld) [Mass/Vol] 12.0 g/dL Critically low 14.0-18.0 [facility] Comment on above: Performed By: #### T 7, LIPA, TSH, AMADOU, CMP #### [facility] [address] [place] [address] Dr. Krystle Heaton IG # 0.02 10e3/ul Normal 0.00-0.03 [facility] Comment on above: Performed By: #### T 7, LIPA, TSH, AMADOU, CMP #### [facility] [address] [place] [address] Dr. Krystle Heaton IG % 0.4 % Normal 0.0-0.5 [facility] Comment on above: Performed By: #### T 7, LIPA, TSH, AMADOU, CMP #### [facility] [address] [place] [address] Dr. Krystle Heaton LYMPH # 1.2 103/ul Normal 1.2-3.8 [facility] Comment on above: Performed By: #### T 7, LIPA, TSH, AMADOU, CMP #### [facility] [address] [place] [address] Dr. Krystle Heaton Lymphocytes/100 WBC (Bld) 26.0 % Normal 20.5-60.0 [facility] Comment on above: Performed By: #### T 7, LIPA, TSH, AMADOU, CMP #### [facility] [address] [place] [address] Dr. Krystle Heaton MANUAL DIFF REQ NO Normal [facility] Comment on above: Performed By: #### T 7, LIPA, TSH, AMADOU, CMP #### [facility] [address] [place] [address] Dr. Krystle Heaton MCH (RBC) [Entitic mass] 36.4 pg Critically high 25.9-34.0 [facility] Comment on above: Performed By: #### T 7, LIPA, TSH, AMADOU, CMP #### [facility] [address] [place] [address] Dr. Krystle Heaton MCHC (RBC) [Mass/Vol] 32.6 g/dL Normal 29.9-35.2 [facility] Comment on above: Performed By: #### T 7, LIPA, TSH, AMADOU, CMP #### [facility] [address] [place] [address] Dr. Krystle Heaton MCV (RBC) [Entitic vol] 111.5 fL Critically high 80.0-94.0 [facility] Comment on above: Performed By: #### T 7, LIPA, TSH, AMADOU, CMP #### [facility] [address] [place] [address] Dr. Krystle Heaton MONO # 0.5 103/ul Normal 0.3-0.8 [facility] Comment on above: Performed By: #### T 7, LIPA, TSH, AMADOU, CMP #### [facility] [address] [place] [address] Dr. Krystle Heaton Monocytes/100 WBC (Bld) 10.1 % Normal 1.7-12.0 [facility] Comment on above: Performed By: #### T 7, LIPA, TSH, AMADOU, CMP #### [facility] [address] [place] [address] Dr. Krystle Heaton NEUT # 2.8 103/ul Normal 1.4-6.5 [facility] Comment on above: Performed By: #### T 7, LIPA, TSH, AMADOU, CMP #### [facility] [address] [place] [address] Dr. Krystle Heaton Neutrophils/100 WBC (Bld) 60.0 % Normal 43.0-75.0 [facility] Comment on above: Performed By: #### T 7, LIPA, TSH, AMADOU, CMP #### [facility] [address] [place] [address] Dr. Krystle Heaton Platelet mean volume (Bld) [Entitic vol] 11.0 fL Normal 9.5-13.5 [facility] Comment on above: Performed By: #### T 7, LIPA, TSH, AMADOU, CMP #### [facility] [address] [place] [address] Dr. Krystle Heaton PLT 140 103/ul Critically low 150-450 [facility] Comment on above: Performed By: #### T 7, LIPA, TSH, AMADOU, CMP #### [facility] [address] [place] [address] Dr. Krystle Heaton RBC 3.30 106/ul Critically low 4.70-6.10 [facility] Comment on above: Performed By: #### T 7, LIPA, TSH, AMADOU, CMP #### [facility] [address] [place] [address] Dr. Krystle Heaton WBC 4.7 103/ul Normal 4.0-11.0 [facility] Comment on above: Performed By: #### T 7, LIPA, TSH, AMADOU, CMP #### [facility] [address] [place] [address] Dr. Krystle Heaton FERRITINon 04-27-2021 Ferritin [Mass/Vol] 845.0 ng/mL Critically high 17.9-464.0 [facility] Comment on above: Performed By: #### F ERR #### [facility] [address] [place] [address] Dr. Krystle Heaton CBC AUTO DIFFon 04-18-2021 BASO # 0.1 103/ul Normal 0.0-0.1 [facility] Comment on above: Performed By: #### T 7, LIPA, TSH, AMADOU, CMP #### [facility] [address] [place] [address] Dr. Krystle Heaton Basophils/100 WBC (Bld) 1.1 % Normal 0.2-2.0 [facility] Comment on above: Performed By: #### T 7, LIPA, TSH, AMADOU, CMP #### [facility] [address] [place] [address] Dr. Krystle Heaton EO # 0.1 103/ul Normal 0.0-0.7 [facility] Comment on above: Performed By: #### T 7, LIPA, TSH, AMADOU, CMP #### [facility] [address] [place] [address] Dr. Krystle Heaton Eosinophils/100 WBC (Bld) 2.2 % Normal 0.9-7.0 [facility] Comment on above: Performed By: #### T 7, LIPA, TSH, AMADOU, CMP #### [facility] [address] [place] [address] Dr. Krystle Heaton Erythrocyte distribution width (RBC) [Ratio] 13.1 % Normal 11.0-15.0 [facility] Comment on above: Performed By: #### T 7, LIPA, TSH, AMADOU, CMP #### [facility] [address] [place] [address] Dr. Krystle Heaton Hematocrit (Bld) [Volume fraction] 35.2 % Critically low 42.0-54.0 [facility] Comment on above: Performed By: #### T 7, LIPA, TSH, AMADOU, CMP #### [facility] [address] [place] [address] Dr. Krystle Heaton Hemoglobin (Bld) [Mass/Vol] 11.8 g/dL Critically low 14.0-18.0 [facility] Comment on above: Performed By: #### T 7, LIPA, TSH, AMADOU, CMP #### [facility] [address] [place] [address] Dr. Krystle Heaton IG # 0.01 10e3/ul Normal 0.00-0.03 [facility] Comment on above: Performed By: #### T 7, LIPA, TSH, AMADOU, CMP #### [facility] [address] [place] [address] Dr. Krystle Heaton IG % 0.2 % Normal 0.0-0.5 [facility] Comment on above: Performed By: #### T 7, LIPA, TSH, AMADOU, CMP #### [facility] [address] [place] [address] Dr. Krystle Heaton LYMPH # 1.6 103/ul Normal 1.2-3.8 [facility] Comment on above: Performed By: #### T 7, LIPA, TSH, AMADOU, CMP #### [facility] [address] [place] [address] Dr. Krystle Heaton Lymphocytes/100 WBC (Bld) 35.1 % Normal 20.5-60.0 [facility] Comment on above: Performed By: #### T 7, LIPA, TSH, AMADOU, CMP #### [facility] [address] [place] [address] Dr. Krystle Heaton MANUAL DIFF REQ NO Normal [facility] Comment on above: Performed By: #### T 7, LIPA, TSH, AMADOU, CMP #### [facility] [address] [place] [address] Dr. Krystle Heaton MCH (RBC) [Entitic mass] 36.6 pg Critically high 25.9-34.0 [facility] Comment on above: Performed By: #### T 7, LIPA, TSH, AMADOU, CMP #### [facility] [address] [place] [address] Dr. Krystle Heaton MCHC (RBC) [Mass/Vol] 33.5 g/dL Normal 29.9-35.2 [facility] Comment on above: Performed By: #### T 7, LIPA, TSH, AMADOU, CMP #### [facility] [address] [place] [address] Dr. Krystle Heaton MCV (RBC) [Entitic vol] 109.3 fL Critically high 80.0-94.0 [facility] Comment on above: Performed By: #### T 7, LIPA, TSH, AMADOU, CMP #### [facility] [address] [place] [address] Dr. Krystle Heaton MONO # 0.5 103/ul Normal 0.3-0.8 [facility] Comment on above: Performed By: #### T 7, LIPA, TSH, AMADOU, CMP #### [facility] [address] [place] [address] Dr. Krystle Heaton Monocytes/100 WBC (Bld) 11.0 % Normal 1.7-12.0 [facility] Comment on above: Performed By: #### T 7, LIPA, TSH, AMADOU, CMP #### [facility] [address] [place] [address] Dr. Krystle Heaton NEUT # 2.2 103/ul Normal 1.4-6.5 [facility] Comment on above: Performed By: #### T 7, LIPA, TSH, AMADOU, CMP #### [facility] [address] [place] [address] Dr. Krystle Heaton Neutrophils/100 WBC (Bld) 50.4 % Normal 43.0-75.0 [facility] Comment on above: Performed By: #### T 7, LIPA, TSH, AMADOU, CMP #### [facility] [address] [place] [address] Dr. Krystle Heaton Platelet mean volume (Bld) [Entitic vol] 10.9 fL Normal 9.5-13.5 [facility] Comment on above: Performed By: #### T 7, LIPA, TSH, AMADOU, CMP #### [facility] [address] [place] [address] Dr. Krystle Heaton PLT 158 103/ul Normal 150-450 [facility] Comment on above: Performed By: #### T 7, LIPA, TSH, AMADOU, CMP #### [facility] [address] [place] [address] Dr. Krystle Heaton RBC 3.22 106/ul Critically low 4.70-6.10 [facility] Comment on above: Performed By: #### T 7, LIPA, TSH, AMADOU, CMP #### [facility] [address] [place] [address] Dr. Krystle Heaton WBC 4.5 103/ul Normal 4.0-11.0 [facility] Comment on above: Performed By: #### T 7, LIPA, TSH, AMADOU, CMP #### [facility] [address] [place] [address] Dr. Krystle Heaton FERRITINon 04-18-2021 Ferritin [Mass/Vol] ng/mL Critically high 17.9-464.0 [facility] Comment on above: Performed By: #### H BSANS #### [facility] [address] [place] [address] Billy Devlin CBC AUTO DIFFon 04-13-2021 BASO # 0.0 103/ul Normal 0.0-0.1 [facility] Comment on above: Performed By: #### T 7, LIPA, TSH, AMADOU, CMP #### [facility] [address] [place] [address] Dr. Krystle Heaton Basophils/100 WBC (Bld) 0.6 % Normal 0.2-2.0 [facility] Comment on above: Performed By: #### T 7, LIPA, TSH, AMADOU, CMP #### [facility] [address] [place] [address] Dr. Krystle Heaton EO # 0.1 103/ul Normal 0.0-0.7 [facility] Comment on above: Performed By: #### T 7, LIPA, TSH, AMADOU, CMP #### [facility] [address] [place] [address] Dr. Krystle Heaton Eosinophils/100 WBC (Bld) 3.2 % Normal 0.9-7.0 [facility] Comment on above: Performed By: #### T 7, LIPA, TSH, AMADOU, CMP #### [facility] [address] [place] [address] Dr. Krystle Heaton Erythrocyte distribution width (RBC) [Ratio] 13.6 % Normal 11.0-15.0 [facility] Comment on above: Performed By: #### T 7, LIPA, TSH, AMADOU, CMP #### [facility] [address] [place] [address] Dr. Krystle Heaton Hematocrit (Bld) [Volume fraction] 35.3 % Critically low 42.0-54.0 [facility] Comment on above: Performed By: #### T 7, LIPA, TSH, AMADOU, CMP #### [facility] [address] [place] [address] Dr. Krystle Heaton Hemoglobin (Bld) [Mass/Vol] 11.9 g/dL Critically low 14.0-18.0 [facility] Comment on above: Performed By: #### T 7, LIPA, TSH, AMADOU, CMP #### [facility] [address] [place] [address] Dr. Krystle Heaton IG # 0.01 10e3/ul Normal 0.00-0.03 [facility] Comment on above: Performed By: #### T 7, LIPA, TSH, AMADOU, CMP #### [facility] [address] [address] [address] Krystle Heaton IG % 0.3 % Normal 0.0-0.5 [facility] Comment on above: Performed By: #### T 7, LIPA, TSH, AMADOU, CMP #### [facility] [address] [address] [address] Krystle Heaton LYMPH # 1.1 103/ul Critically low 1.2-3.8 [facility] Comment on above: Performed By: #### T 7, LIPA, TSH, AMADOU, CMP #### [facility] [address] [place] [address] Dr. Krystle Heaton Lymphocytes/100 WBC (Bld) 35.1 % Normal 20.5-60.0 [facility] Comment on above: Performed By: #### T 7, LIPA, TSH, AMADOU, CMP #### [facility] [address] [place] [address] Dr. Krystle Heaton MANUAL DIFF REQ NO Normal [facility] Comment on above: Performed By: #### T 7, LIPA, TSH, AMADOU, CMP #### [facility] [address] [place] [address] Dr. Krystle Heaton MCH (RBC) [Entitic mass] 37.1 pg Critically high 25.9-34.0 [facility] Comment on above: Performed By: #### T 7, LIPA, TSH, AMADOU, CMP #### [facility] [address] [place] [address] Dr. Krystle Heaton MCHC (RBC) [Mass/Vol] 33.7 g/dL Normal 29.9-35.2 [facility] Comment on above: Performed By: #### T 7, LIPA, TSH, AMADOU, CMP #### [facility] [address] [place] [address] Dr. Krystle Heaton MCV (RBC) [Entitic vol] 110.0 fL Critically high 80.0-94.0 [facility] Comment on above: Result Comment: macr ocytosis 3+ Performed By: #### T 7, LIPA, TSH, AMADOU, CMP #### [facility] [address] [place] [address] Dr. Krystle Heaton MONO # 0.3 103/ul Normal 0.3-0.8 [facility] Comment on above: Performed By: #### T 7, LIPA, TSH, AMADOU, CMP #### [facility] [address] [place] [address] Dr. Krystle Heaton Monocytes/100 WBC (Bld) 10.7 % Normal 1.7-12.0 [facility] Comment on above: Performed By: #### T 7, LIPA, TSH, AMADOU, CMP #### [facility] [address] [place] [address] Dr. Krystle Heaton NEUT # 1.5 103/ul Normal 1.4-6.5 [facility] Comment on above: Performed By: #### T 7, LIPA, TSH, AMADOU, CMP #### [facility] [address] [place] [address] Dr. Krystle Heaton Neutrophils/100 WBC (Bld) 50.1 % Normal 43.0-75.0 [facility] Comment on above: Performed By: #### T 7, LIPA, TSH, AMADOU, CMP #### [facility] [address] [place] [address] Dr. Krystle Heaton Platelet mean volume (Bld) [Entitic vol] 10.8 fL Normal 9.5-13.5 [facility] Comment on above: Performed By: #### T 7, LIPA, TSH, AMADOU, CMP #### [facility] [address] [place] [address] Dr. Krystle Heaton PLT 131 103/ul Critically low 150-450 [facility] Comment on above: Performed By: #### T 7, LIPA, TSH, AMADOU, CMP #### [facility] [address] [place] [address] Dr. Krystle Heaton RBC 3.21 106/ul Critically low 4.70-6.10 [facility] Comment on above: Performed By: #### T 7, LIPA, TSH, AMADOU, CMP #### [facility] [address] [place] [address] Dr. Krystle Heaton WBC 3.1 103/ul Critically low 4.0-11.0 [facility] Comment on above: Performed By: #### T 7, LIPA, TSH, AMADOU, CMP #### [facility] [address] [address] [address] Krystle Heaton FERRITINon 04-13-2021 Ferritin [Mass/Vol] ng/mL Critically high 17.9-464.0 [facility] Comment on above: Performed By: #### F ERR #### [facility] [address] [address] [address] Krystle Heaton Initial Visit (Gastroenterol ogy)on [...] 04-06-2021 BASO # 0.0 103/ul Normal 0.0-0.1 [facility] Comment on above: Performed By: #### H BSANS #### [facility] [address] [place], [place] [address] Billy Devlin Basophils/100 WBC (Bld) 0.9 % Normal 0.2-2.0 [facility] Comment on above: Performed By: #### H BSANS #### [facility] [address] [place], [place] [address] Billy Quita EO # 0.1 103/ul Normal 0.0-0.7 [facility] Comment on above: Performed By: #### H BSANS #### [facility] [address] [place] [address] Billy Quita Eosinophils/100 WBC (Bld) 3.0 % Normal 0.9-7.0 [facility] Comment on above: Performed By: #### H BSANS #### [facility] [address] [place] [address] Billy Quita Erythrocyte distribution width (RBC) [Ratio] 13.6 % Normal 11.0-15.0 [facility] Comment on above: Performed By: #### H ANJUMNS #### [facility] [address] [place] [address] Billy Quita Hematocrit (Bld) [Volume fraction] 39.1 % Critically low 42.0-54.0 [facility] Comment on above: Performed By: #### H ALEXANDER #### [facility] [address] [place] [address] Billy Quita Hemoglobin (Bld) [Mass/Vol] 13.1 g/dL Critically low 14.0-18.0 [facility] Comment on above: Performed By: #### H BSANS #### [facility] [address] [place] [address] Billy Quita IG # 0.02 10e3/ul Normal 0.00-0.03 [facility] Comment on above: Performed By: #### H BSANS #### [facility] [address] [place] [address] Billy Quita IG % 0.5 % Normal 0.0-0.5 [facility] Comment on above: Performed By: #### H BSANS #### [facility] [address] [place] [address] Billy Quita LYMPH # 1.1 103/ul Critically low 1.2-3.8 [facility] Comment on above: Performed By: #### H BSASUZANNE #### [facility] [address] [place] [address] Billy Quita Lymphocytes/100 WBC (Bld) 26.7 % Normal 20.5-60.0 [facility] Comment on above: Performed By: #### H ALEXANDER #### [facility] [address] [place] [address] Billy Devlin MANUAL DIFF REQ NO Normal [facility] Comment on above: Performed By: #### H ALEXANDER #### [facility] [address] [place] [address] Billycarrillo Devlin MCH (RBC) [Entitic mass] 36.7 pg Critically high 25.9-34.0 [facility] Comment on above: Performed By: #### H ALEXANDER #### [facility] [address] [place] [address] Billycarrillo Devlin MCHC (RBC) [Mass/Vol] 33.5 g/dL Normal 29.9-35.2 [facility] Comment on above: Result Comment: macr ocytosis Performed By: #### H ALEXANDER #### [facility] [address] [place] [address] Billy Quita MCV (RBC) [Entitic vol] 109.5 fL Critically high 80.0-94.0 [facility] Comment on above: Performed By: #### H ALEXANDER #### [facility] [address] [place] [address] Billy Quita MONO # 0.4 103/ul Normal 0.3-0.8 [facility] Comment on above: Performed By: #### H ALEXANDER #### [facility] [address] [place] [address] Billy Quita Monocytes/100 WBC (Bld) 8.7 % Normal 1.7-12.0 [facility] Comment on above: Performed By: #### H ALEXANDER #### [facility] [address] [place] [address] Billy Quita NEUT # 2.6 103/ul Normal 1.4-6.5 [facility] Comment on above: Performed By: #### H ALEXANDER #### [facility] [address] [place] [address] Billy Devlin Neutrophils/100 WBC (Bld) 60.2 % Normal 43.0-75.0 [facility] Comment on above: Performed By: #### H ALEXANDER #### [facility] [address] [place] [address] Billy Devlin Platelet mean volume (Bld) [Entitic vol] 11.1 fL Normal 9.5-13.5 [facility] Comment on above: Performed By: #### H ALEXANDER #### [facility] [address] [place] [address] Billy Devlin PLT 162 103/ul Normal 150-450 [facility] Comment on above: Performed By: #### H ALEXANDER #### [facility] [address] [place] [address] Billy Devlin RBC 3.57 106/ul Critically low 4.70-6.10 [facility] Comment on above: Performed By: #### H ALEXANDER #### [facility] [address] [place] [address] Billy Devlin WBC 4.3 103/ul Normal 4.0-11.0 [facility] Comment on above: Performed By: #### H ALEXANDER #### [facility] [address] [place] [address] Billy Devlin FERRITINon 04-06-2021 Ferritin [Mass/Vol] ng/mL Critically high 17.9-464.0 [facility] Comment on above: Performed By: #### T 7, LIPA, TSH, AMADOU, CMP #### [facility] [address] [place] [address] Dr. Krystle Heaton FREE T4on 04-06-2021 Free T4 [Mass/Vol] 0.73 ng/dL Critically low 0.78-2.19 [facility] Comment on above: Performed By: #### T 7, LIPA, TSH, AMADOU, CMP #### [facility] [address] [place] [address] Dr. Krystle Heaton IRON AND TIBCon 04-06-2021 % SATURATION 54.8 % Normal [facility] Comment on above: Performed By: #### T 7, LIPA, TSH, AMADOU, CMP #### [facility] [address] [address] [address] Krystle Heaton Iron [Mass/Vol] 161.0 ug/dL Normal 49.0-181.[address] [facility] Comment on above: Performed By: #### T 7, LIPA, TSH, AMADOU, CMP #### [facility] [address] [place] [address] Dr. Krystle Heaton TIBC DIRECT 294.0 ug/dL Normal 261.0-497.[address] [facility] Comment on above: Performed By: #### T 7, LIPA, TSH, AMADOU, CMP #### [facility] [address] [place] [address] Dr. Krystle Heaton PROF 14(COMP METB)on 021 Albumin [Mass/Vol] 3.7 g/dL Normal 3.5-5.0 [facility] Comment on above: Performed By: #### T 7, LIPA, TSH, AMADOU, CMP #### [facility] [address] [place] [address] Dr. Krystle Heaton Albumin/Globulin [Mass ratio] 1.0 {ratio} Normal [facility] Comment on above: Performed By: #### T 7, LIPA, TSH, AMADOU, CMP #### [facility] [address] [place] [address] Dr. Krystle Heaton ALP [Catalytic activity/Vol] 83 U/L Normal 38-126 [facility] Comment on above: Performed By: #### T 7, LIPA, TSH, AMADOU, CMP #### [facility] [address] [place] [address] Dr. Krystle Heaton ALT [Catalytic activity/Vol] 140 U/L Critically high 21-72 [facility] Comment on above: Performed By: #### T 7, LIPA, TSH, AMADOU, CMP #### [facility] [address] [place] [address] Dr. Krystle Heaton Anion gap [Moles/Vol] 15.8 mmol/L Normal [facility] Comment on above: Performed By: #### T 7, LIPA, TSH, AMADOU, CMP #### [facility] [address] [place] [address] Dr. Krystle Heaton AST [Catalytic activity/Vol] 186 U/L Critically high 17-59 [facility] Comment on above: Performed By: #### T 7, LIPA, TSH, AMADOU, CMP #### [facility] [address] [place] [address] Dr. Krystle Heaton Bilirubin [Mass/Vol] 0.5 mg/dL Normal 0.2-1.3 [facility] Comment on above: Performed By: #### T 7, LIPA, TSH, AMADOU, CMP #### [facility] [address] [place] [address] Dr. Krystle Heaton Calcium [Mass/Vol] 9.0 mg/dL Normal 8.4-10.[address] [facility] Comment on above: Performed By: #### T 7, LIPA, TSH, AMADOU, CMP #### [facility] [address] [place] [address] Dr. Krystle Heaton Chloride [Moles/Vol] 101 mmol/L Normal 98-107 [facility] Comment on above: Performed By: #### T 7, LIPA, TSH, AMADOU, CMP #### [facility] [address] [place] [address] Dr. Krystle Heaton CO2 [Moles/Vol] 25.8 mmol/L Normal 22.0-30.0 [facility] Comment on above: Performed By: #### T 7, LIPA, TSH, AMADOU, CMP #### [facility] [address] [place] [address] Dr. Krystle Heaton Creatinine [Mass/Vol] 1.07 mg/dL Normal 0.66-1.25 [facility] Comment on above: Performed By: #### T 7, LIPA, TSH, AMADOU, CMP #### [facility] [address] [place] [address] Dr. Krystle Heaton EGFR-AF SIERRA LEONEAN >60 Normal >=60 [facility] Comment on above: Performed By: #### T 7, LIPA, TSH, AMADOU, CMP #### [facility] [address] [place] [address] Dr. Krystle Heaton EGFR-NON AF SIERRA LEONEAN >60 Normal >=60 [facility] Comment on above: Performed By: #### T 7, LIPA, TSH, AMADOU, CMP #### [facility] [address] [place] [address] Dr. Krystle Heaton Globulin (S) [Mass/Vol] 3.7 g/dL Normal [facility] Comment on above: Performed By: #### T 7, LIPA, TSH, AMADOU, CMP #### [facility] [address] [place] [address] Dr. Krystle Heaton Glucose [Mass/Vol] 104 mg/dL Normal 74-[address] [facility] Comment on above: Performed By: #### T 7, LIPA, TSH, AMADOU, CMP #### [facility] [address] [place] [address] Dr. Krystle Heaton Potassium [Moles/Vol] 4.6 mmol/L Normal 3.4-5.0 [facility] Comment on above: Performed By: #### T 7, LIPA, TSH, AMADOU, CMP #### [facility] [address] [place] [address] Dr. Krystle Heaton Protein [Mass/Vol] 7.4 g/dL Normal 6.1-8.[address] [facility] Comment on above: Performed By: #### T 7, LIPA, TSH, AMADOU, CMP #### [facility] [address] [place] [address] Dr. Krystle Heaton Sodium [Moles/Vol] 138 mmol/L Normal 137-[address] [facility] Comment on above: Performed By: #### T 7, LIPA, TSH, AMADOU, CMP #### [facility] [address] [place] [address] Dr. Krystle Heaton Urea nitrogen [Mass/Vol] 10.0 mg/dL Normal 9.0-20.0 [facility] Comment on above: Performed By: #### T 7, LIPA, TSH, AMADOU, CMP #### [facility] [address] [place] [address] Dr. Krystle Heaton Urea nitrogen/Creatinine [Mass ratio] 9.3 mg/mg Normal [facility] Comment on above: Performed By: #### T 7, LIPA, TSH, AMADOU, CMP #### [facility] [address] [place] [address] Dr. Krystle Heaton TSHon 04-06-2021 TSH 1.945 uIU/mL Normal 0.470-4.[address] [facility] Comment on above: Performed By: #### T 7, LIPA, TSH, AMADOU, CMP #### [facility] [address] [place] [address] Dr. Krystle Heaton TSH RANGE SEE BELOW Normal [facility] Comment on above: Result Comment: <0.3 4 UIU/ml HYPERTHYROID 0.34-5.60 UIU/ml EUTHYROID >5.60 UIU/ml HYPOTHYROID Performed By: #### T 7, LIPA, TSH, AMADOU, CMP #### [facility] [address] [place] [address] Dr. Krystle Heaton CBC AUTO DIFFon 03-30-2021 BASO # 0.0 103/ul Normal 0.0-0.1 [facility] Comment on above: Performed By: #### T 7, LIPA, TSH, AMADOU, CMP #### [facility] [address] [place] [address] Dr. Krystle Heaton Basophils/100 WBC (Bld) 0.8 % Normal 0.2-2.0 [facility] Comment on above: Performed By: #### T 7, LIPA, TSH, AMADOU, CMP #### [facility] [address] [place] [address] Dr. Krystle Heaton EO # 0.1 103/ul Normal 0.0-0.7 [facility] Comment on above: Performed By: #### T 7, LIPA, TSH, AMADOU, CMP #### [facility] [address] [place] [address] Dr. Krystle Heaton Eosinophils/100 WBC (Bld) 3.0 % Normal 0.9-7.0 [facility] Comment on above: Performed By: #### T 7, LIPA, TSH, AMADOU, CMP #### [facility] [address] [place] [address] Dr. Krystle Heaton Erythrocyte distribution width (RBC) [Ratio] 13.9 % Normal 11.0-15.0 [facility] Comment on above: Performed By: #### T 7, LIPA, TSH, AMADOU, CMP #### [facility] [address] [place] [address] Dr. Krystle Hetaon Hematocrit (Bld) [Volume fraction] 40.4 % Critically low 42.0-54.0 [facility] Comment on above: Performed By: #### T 7, LIPA, TSH, AMADOU, CMP #### [facility] [address] [place] [address] Dr. Krystle Heaton Hemoglobin (Bld) [Mass/Vol] 13.5 g/dL Critically low 14.0-18.0 [facility] Comment on above: Performed By: #### T 7, LIPA, TSH, AMADOU, CMP #### [facility] [address] [place] [address] Dr. Krystle Heaton IG # 0.01 10e3/ul Normal 0.00-0.03 [facility] Comment on above: Performed By: #### T 7, LIPA, TSH, AMADOU, CMP #### [facility] [address] [place] [address] Dr. Krystle Heaton IG % 0.3 % Normal 0.0-0.5 [facility] Comment on above: Performed By: #### T 7, LIPA, TSH, AMADOU, CMP #### [facility] [address] [place] [address] Dr. Krystle Heaton LYMPH # 1.2 103/ul Normal 1.2-3.8 [facility] Comment on above: Performed By: #### T 7, LIPA, TSH, AMADOU, CMP #### [facility] [address] [place] [address] Dr. Krystle Heaton Lymphocytes/100 WBC (Bld) 32.7 % Normal 20.5-60.0 [facility] Comment on above: Performed By: #### T 7, LIPA, TSH, AMADOU, CMP #### [facility] [address] [place] [address] Dr. Krystle Heaton MANUAL DIFF REQ NO Normal [facility] Comment on above: Performed By: #### T 7, LIPA, TSH, AMADOU, CMP #### [facility] [address] [place] [address] Dr. Krystle Heaton MCH (RBC) [Entitic mass] 36.5 pg Critically high 25.9-34.0 [facility] Comment on above: Performed By: #### T 7, LIPA, TSH, AMADOU, CMP #### [facility] [address] [place] [address] Dr. Krystle Heaton MCHC (RBC) [Mass/Vol] 33.4 g/dL Normal 29.9-35.2 [facility] Comment on above: Result Comment: MACR OCYTOSIS PRESENT Performed By: #### T 7, LIPA, TSH, AMADOU, CMP #### [facility] [address] [place] [address] Dr. Krystle Heaton MCV (RBC) [Entitic vol] 109.2 fL Critically high 80.0-94.0 [facility] Comment on above: Performed By: #### T 7, LIPA, TSH, AMADOU, CMP #### [facility] [address] [place] [address] Dr. Krystle Heaton MONO # 0.4 103/ul Normal 0.3-0.8 [facility] Comment on above: Performed By: #### T 7, LIPA, TSH, AMADOU, CMP #### [facility] [address] [place] [address] Dr. Krystle Heaton Monocytes/100 WBC (Bld) 11.4 % Normal 1.7-12.0 [facility] Comment on above: Performed By: #### T 7, LIPA, TSH, AMADOU, CMP #### [facility] [address] [place] [address] Dr. Krystle Heaton NEUT # 1.9 103/ul Normal 1.4-6.5 [facility] Comment on above: Performed By: #### T 7, LIPA, TSH, AMADOU, CMP #### [facility] [address] [place] [address] Dr. Krystle Heaton Neutrophils/100 WBC (Bld) 51.8 % Normal 43.0-75.0 [facility] Comment on above: Performed By: #### T 7, LIPA, TSH, AMADOU, CMP #### [facility] [address] [place] [address] Dr. Krystle Heaton Platelet mean volume (Bld) [Entitic vol] 10.8 fL Normal 9.5-13.5 [facility] Comment on above: Performed By: #### T 7, LIPA, TSH, AMADOU, CMP #### [facility] [address] [place] [address] Dr. Krystle Heaton PLT 184 103/ul Normal 150-450 [facility] Comment on above: Performed By: #### T 7, LIPA, TSH, AMADOU, CMP #### [facility] [address] [place] [address] Dr. Krystle Heaton RBC 3.70 106/ul Critically low 4.70-6.10 [facility] Comment on above: Performed By: #### T 7, LIPA, TSH, AMADOU, CMP #### [facility] [address] [place] [address] Dr. Krystle Heaton WBC 3.6 103/ul Critically low 4.0-11.0 [facility] Comment on above: Performed By: #### T 7, LIPA, TSH, AMADOU, CMP #### [facility] [address] [place] [address] Dr. Krystle Heaton FERRITINon 03-30-2021 Ferritin [Mass/Vol] ng/mL Critically high 17.9-464.0 [facility] Comment on above: Performed By: #### F ERR #### [facility] [address] [place] [address] Dr. Krystle Heaton FREE T4on 03-30-2021 Free T4 [Mass/Vol] 0.83 ng/dL Normal 0.78-2.19 [facility] Comment on above: Performed By: #### F ERR #### [facility] [address] [address] [address] Krystle Heaton IRON AND TIBCon 03-30-2021 % SATURATION 78.5 % Normal [facility] Comment on above: Performed By: #### F ERR #### [facility] [address] [address] [address] Krystle Heaton Iron [Mass/Vol] 230.0 ug/dL Critically high 49.0-181.0 [facility] Comment on above: Performed By: #### F ERR #### [facility] [address] [place] [address] Dr. Krystle Heaton TIBC DIRECT 293.0 ug/dL Normal 261.0-497.0 [facility] Comment on above: Performed By: #### F ERR #### [facility] [address] [place] [address] Dr. Krystle Heaton PROF 14(COMP METB)on 021 Albumin [Mass/Vol] 3.8 g/dL Normal 3.5-5.0 [facility] Comment on above: Performed By: #### T 7, LIPA, TSH, AMADOU, CMP #### [facility] [address] [place] [address] Dr. Krystle Heaton Albumin/Globulin [Mass ratio] 1.0 {ratio} Normal [facility] Comment on above: Performed By: #### T 7, LIPA, TSH, AMADOU, CMP #### [facility] [address] [place] [address] Dr. Krystle Heaton ALP [Catalytic activity/Vol] 90 U/L Normal 38-126 [facility] Comment on above: Performed By: #### T 7, LIPA, TSH, AMADOU, CMP #### [facility] [address] [place] [address] Dr. Krystle Heaton ALT [Catalytic activity/Vol] 149 U/L Critically high 21-72 [facility] Comment on above: Performed By: #### T 7, LIPA, TSH, AMADOU, CMP #### [facility] [address] [place] [address] Dr. Krystle Heaton Anion gap [Moles/Vol] 16.0 mmol/L Normal [facility] Comment on above: Performed By: #### T 7, LIPA, TSH, AMADOU, CMP #### [facility] [address] [address] [address] Krystle Heaton AST [Catalytic activity/Vol] 187 U/L Critically high 17-59 [facility] Comment on above: Performed By: #### T 7, LIPA, TSH, AMADOU, CMP #### [facility] [address] [address] [address] Krystle Heaton Bilirubin [Mass/Vol] 0.6 mg/dL Normal 0.2-1.3 [facility] Comment on above: Performed By: #### T 7, LIPA, TSH, AMADOU, CMP #### [facility] [address] [place] [address] Dr. Krystle Heaton Calcium [Mass/Vol] 9.2 mg/dL Normal 8.4-10.[address] [facility] Comment on above: Performed By: #### T 7, LIPA, TSH, AMADOU, CMP #### [facility] [address] [address] [address] Krystle Heaton Chloride [Moles/Vol] 100 mmol/L Normal 98-107 [facility] Comment on above: Performed By: #### T 7, LIPA, TSH, AMADOU, CMP #### [facility] [address] [address] [address] Krystle Heaton CO2 [Moles/Vol] 26.2 mmol/L Normal 22.0-30.0 [facility] Comment on above: Performed By: #### T 7, LIPA, TSH, AMADOU, CMP #### [facility] [address] [address] [address] Krystle Heaton Creatinine [Mass/Vol] 1.07 mg/dL Normal 0.66-1.25 [facility] Comment on above: Performed By: #### T 7, LIPA, TSH, AMADOU, CMP #### [facility] [address] [address] [address] Krystle Heaton EGFR-AF SIERRA LEONEAN >60 Normal >=60 [facility] Comment on above: Performed By: #### T 7, LIPA, TSH, AMADOU, CMP #### [facility] [address] [place] [address] Dr. Krystle Heaton EGFR-NON AF SIERRA LEONEAN >60 Normal >=60 [facility] Comment on above: Performed By: #### T 7, LIPA, TSH, AMADOU, CMP #### [facility] [address] [place] [address] Dr. Krystle Heaton Globulin (S) [Mass/Vol] 3.8 g/dL Normal [facility] Comment on above: Performed By: #### T 7, LIPA, TSH, AMADOU, CMP #### [facility] [address] [place] [address] Dr. Krystle Heaton Glucose [Mass/Vol] 110 mg/dL Critically high 74-106 [facility] Comment on above: Performed By: #### T 7, LIPA, TSH, AMADOU, CMP #### [facility] [address] [place] [address] Dr. Krystle Heaton Potassium [Moles/Vol] 4.2 mmol/L Normal 3.4-5.0 [facility] Comment on above: Performed By: #### T 7, LIPA, TSH, AMADOU, CMP #### [facility] [address] [place] [address] Dr. Krystle Heaton Protein [Mass/Vol] 7.6 g/dL Normal 6.1-8.[address] [facility] Comment on above: Performed By: #### T 7, LIPA, TSH, AMADOU, CMP #### [facility] [address] [place] [address] Dr. Krystle Heaton Sodium [Moles/Vol] 138 mmol/L Normal 137-[address] [facility] Comment on above: Performed By: #### T 7, LIPA, TSH, AMADOU, CMP #### [facility] [address] [place] [address] Dr. Krystle Heaton Urea nitrogen [Mass/Vol] 9.0 mg/dL Normal 9.0-20.0 [facility] Comment on above: Performed By: #### T 7, LIPA, TSH, AMADOU, CMP #### [facility] [address] [place] [address] Dr. Krystle Heaton Urea nitrogen/Creatinine [Mass ratio] 8.4 mg/mg Normal [facility] Comment on above: Performed By: #### T 7, LIPA, TSH, AMADOU, CMP #### [facility] [address] [place] [address] Dr. Krystle Heaton TSHon 03-30-2021 TSH 1.030 uIU/mL Normal 0.470-4.680 [facility] Comment on above: Performed By: #### T 7, LIPA, TSH, AMADOU, CMP #### [facility] [address] [place] [address] Dr. Krystle Heaton TSH RANGE SEE BELOW Normal [facility] Comment on above: Result Comment: <0.3 4 UIU/ml HYPERTHYROID 0.34-5.60 UIU/ml EUTHYROID >5.60 UIU/ml HYPOTHYROID Performed By: #### T 7, LIPA, TSH, AMADOU, CMP #### [facility] [address] [place] [address] Dr. Krystle Heaton CBC AUTO DIFFon 03-22-2021 BASO # 0.0 103/ul Normal 0.0-0.1 [facility] Comment on above: Performed By: #### T 7, LIPA, TSH, AMADOU, CMP #### [facility] [address] [place] [address] Dr. Krystle Heaton Basophils/100 WBC (Bld) 0.6 % Normal 0.2-2.0 [facility] Comment on above: Performed By: #### T 7, LIPA, TSH, AMADOU, CMP #### [facility] [address] [place] [address] Dr. Krystle Heaton EO # 0.1 103/ul Normal 0.0-0.7 [facility] Comment on above: Performed By: #### T 7, LIPA, TSH, AMADOU, CMP #### [facility] [address] [place] [address] Dr. Krystle Heaton Eosinophils/100 WBC (Bld) 2.1 % Normal 0.9-7.0 [facility] Comment on above: Performed By: #### T 7, LIPA, TSH, AMADOU, CMP #### [facility] [address] [place] [address] Dr. Krystle Heaton Erythrocyte distribution width (RBC) [Ratio] 12.7 % Normal 11.0-15.0 [facility] Comment on above: Performed By: #### T 7, LIPA, TSH, AMADOU, CMP #### [facility] [address] [place] [address] Dr. Krystle Heaton Hematocrit (Bld) [Volume fraction] 37.5 % Critically low 42.0-54.0 [facility] Comment on above: Performed By: #### T 7, LIPA, TSH, AMADOU, CMP #### [facility] [address] [place] [address] Dr. Krystle Heaton Hemoglobin (Bld) [Mass/Vol] 13.1 g/dL Critically low 14.0-18.0 [facility] Comment on above: Performed By: #### T 7, LIPA, TSH, AMADOU, CMP #### [facility] [address] [place] [address] Dr. Krystle Heaton IG # 0.01 10e3/ul Normal 0.00-0.03 [facility] Comment on above: Performed By: #### T 7, LIPA, TSH, AMADOU, CMP #### [facility] [address] [place] [address] Dr. Krystle Heaton IG % 0.3 % Normal 0.0-0.5 [facility] Comment on above: Performed By: #### T 7, LIPA, TSH, AMADOU, CMP #### [facility] [address] [place] [address] Dr. Krystle Heaton LYMPH # 1.2 103/ul Normal 1.2-3.8 [facility] Comment on above: Performed By: #### T 7, LIPA, TSH, AMADOU, CMP #### [facility] [address] [place] [address] Dr. Krystle Heaton Lymphocytes/100 WBC (Bld) 35.7 % Normal 20.5-60.0 [facility] Comment on above: Performed By: #### T 7, LIPA, TSH, AMADOU, CMP #### [facility] [address] [place] [address] Dr. Krystle Heaton MANUAL DIFF REQ NO Normal [facility] Comment on above: Performed By: #### T 7, LIPA, TSH, AMADOU, CMP #### [facility] [address] [place] [address] Dr. Krystle Heaton MCH (RBC) [Entitic mass] 37.0 pg Critically high 25.9-34.0 [facility] Comment on above: Performed By: #### T 7, LIPA, TSH, AMADOU, CMP #### [facility] [address] [place] [address] Dr. Krystle Heaton MCHC (RBC) [Mass/Vol] 34.9 g/dL Normal 29.9-35.2 [facility] Comment on above: Performed By: #### T 7, LIPA, TSH, AMADOU, CMP #### [facility] [address] [place] [address] Dr. Krystle Heaton MCV (RBC) [Entitic vol] 105.9 fL Critically high 80.0-94.0 [facility] Comment on above: Performed By: #### T 7, LIPA, TSH, AMADOU, CMP #### [facility] [address] [place] [address] Dr. Krystle Heaton MONO # 0.2 103/ul Critically low 0.3-0.8 [facility] Comment on above: Performed By: #### T 7, LIPA, TSH, AMADOU, CMP #### [facility] [address] [place] [address] Dr. Krystle Heaton Monocytes/100 WBC (Bld) 6.8 % Normal 1.7-12.0 [facility] Comment on above: Performed By: #### T 7, LIPA, TSH, AMADOU, CMP #### [facility] [address] [place] [address] Dr. Krystle Heaton NEUT # 1.8 103/ul Normal 1.4-6.5 [facility] Comment on above: Performed By: #### T 7, LIPA, TSH, AMADOU, CMP #### [facility] [address] [place] [address] Dr. Krystle Heaton Neutrophils/100 WBC (Bld) 54.5 % Normal 43.0-75.0 [facility] Comment on above: Performed By: #### T 7, LIPA, TSH, AMADOU, CMP #### [facility] [address] [address] [address] Krystle Heaton Platelet mean volume (Bld) [Entitic vol] 10.4 fL Normal 9.5-13.5 [facility] [facility] Comment on above: Performed By: #### T 7, LIPA, TSH, AMADOU, CMP #### [facility] [address] [place] [address] Dr. Kryslte Heaton PLT 126 103/ul Critically low 150-450 [facility] Comment on above: Performed By: #### T 7, LIPA, TSH, AMADOU, CMP #### [facility] [address] [place] [address] Dr. Krystle Heaton RBC 3.54 106/ul Critically low 4.70-6.10 [facility] Comment on above: Performed By: #### T 7, LIPA, TSH, AMADOU, CMP #### [facility] [address] [place] [address] Dr. Krystle Heaton WBC 3.4 103/ul Critically low 4.0-11.0 [facility] Comment on above: Performed By: #### T 7, LIPA, TSH, AMADOU, CMP #### [facility] [address] [place] [address] Dr. Krystle Heaton FERRITINon 03-22-2021 Ferritin [Mass/Vol] ng/mL Critically high 17.9-464.0 [facility] Comment on above: Performed By: #### T 7, LIPA, TSH, AMADOU, CMP #### [facility] [address] [place] [address] Dr. Krystle Heaton FREE T4on 03-22-2021 Free T4 [Mass/Vol] 0.78 ng/dL Normal 0.78-2.[address] [facility] Comment on above: Performed By: #### T 7, LIPA, TSH, AMADOU, CMP #### [facility] [address] [place] [address] Dr. Krystle Heaton IRON AND TIBCon 03-22-2021 % SATURATION 106.0 % Normal [facility] Comment on above: Performed By: #### T 7, LIPA, TSH, AMADOU, CMP #### [facility] [address] [place] [address] Dr. Krystle Heaton Iron [Mass/Vol] 233.0 ug/dL Critically high 49.0-181.0 [facility] Comment on above: Performed By: #### T 7, LIPA, TSH, AMADOU, CMP #### [facility] [address] [place] [address] Dr. Krystle Heaton TIBC DIRECT 220.0 ug/dL Critically low 261.0-497.[address] [facility] Comment on above: Performed By: #### T 7, LIPA, TSH, AMADOU, CMP #### [facility] [address] [place] [address] Dr. Krystle Heaton PROF 14(COMP METB)on 021 Albumin [Mass/Vol] 3.5 g/dL Normal 3.5-5.0 [facility] Comment on above: Performed By: #### T 7, LIPA, TSH, AMADOU, CMP #### [facility] [address] [place] [address] Dr. Krystle Heaton Albumin/Globulin [Mass ratio] 1.0 {ratio} Normal [facility] Comment on above: Performed By: #### T 7, LIPA, TSH, AMADOU, CMP #### [facility] [address] [place] [address] Dr. Krystle Heaton ALP [Catalytic activity/Vol] 77 U/L Normal 38-126 [facility] Comment on above: Performed By: #### T 7, LIPA, TSH, AMADOU, CMP #### [facility] [address] [place] [address] Dr. Krystle Heaton ALT [Catalytic activity/Vol] 95 U/L Critically high 21-72 [facility] Comment on above: Performed By: #### T 7, LIPA, TSH, AMADOU, CMP #### [facility] [address] [address] [address] Krystle Heaton Anion gap [Moles/Vol] 17.3 mmol/L Normal [facility] Comment on above: Performed By: #### T 7, LIPA, TSH, AMADOU, CMP #### [facility] [address] [address] [address] Krystle Heaton AST [Catalytic activity/Vol] 161 U/L Critically high 17-59 [facility] Comment on above: Performed By: #### T 7, LIPA, TSH, AMADOU, CMP #### [facility] [address] [place] [address] Dr. Krystle Heaton Bilirubin [Mass/Vol] 0.8 mg/dL Normal 0.2-1.3 [facility] Comment on above: Performed By: #### T 7, LIPA, TSH, AMADOU, CMP #### [facility] [address] [place] [address] Dr. Krystle Heaton Calcium [Mass/Vol] 8.5 mg/dL Normal 8.4-10.[address] [facility] Comment on above: Performed By: #### T 7, LIPA, TSH, AMADOU, CMP #### [facility] [address] [place] [address] Dr. Krystle Heaton Chloride [Moles/Vol] 101 mmol/L Normal 98-107 [facility] Comment on above: Performed By: #### T 7, LIPA, TSH, AMADOU, CMP #### [facility] [address] [place] [address] Dr. Krystle Heaton CO2 [Moles/Vol] 22.6 mmol/L Normal 22.0-30.0 [facility] Comment on above: Performed By: #### T 7, LIPA, TSH, AMADOU, CMP #### [facility] [address] [place] [address] Dr. Krystle Heaton Creatinine [Mass/Vol] 0.98 mg/dL Normal 0.66-1.25 [facility] Comment on above: Performed By: #### T 7, LIPA, TSH, AMADOU, CMP #### [facility] [address] [place] [address] Dr. Krystle Heaton EGFR-AF SIERRA LEONEAN >60 Normal >=60 [facility] Comment on above: Performed By: #### T 7, LIPA, TSH, AMADOU, CMP #### [facility] [address] [place] [address] Dr. Krystle Heaton EGFR-NON AF SIERRA LEONEAN >60 Normal >=60 [facility] Comment on above: Performed By: #### T 7, LIPA, TSH, AMADOU, CMP #### [facility] [address] [place] [address] Dr. Krystle Heaton Globulin (S) [Mass/Vol] 3.4 g/dL Normal [facility] Comment on above: Performed By: #### T 7, LIPA, TSH, AMADOU, CMP #### [facility] [address] [place] [address] Dr. Krystle Heaton Glucose [Mass/Vol] 103 mg/dL Normal 74-[address] [facility] Comment on above: Performed By: #### T 7, LIPA, TSH, AMADOU, CMP #### [facility] [address] [place] [address] Dr. Krystle Heaton Potassium [Moles/Vol] 3.9 mmol/L Normal 3.4-5.0 [facility] Comment on above: Performed By: #### T 7, LIPA, TSH, AMADOU, CMP #### [facility] [address] [place] [address] Dr. Krystle Heaton Protein [Mass/Vol] 6.9 g/dL Normal 6.1-8.[address] [facility] Comment on above: Performed By: #### T 7, LIPA, TSH, AMADOU, CMP #### [facility] [address] [place] [address] Dr. Krystle Heaton Sodium [Moles/Vol] 137 mmol/L Normal 137-[address] [facility] Comment on above: Performed By: #### T 7, LIPA, TSH, AMADOU, CMP #### [facility] [address] [place] [address] Dr. Krystle Heaton Urea nitrogen [Mass/Vol] 8.0 mg/dL Critically low 9.0-20.0 [facility] Comment on above: Performed By: #### T 7, LIPA, TSH, AMADOU, CMP #### [facility] [address] [place] [address] Dr. Krystle Heaton Urea nitrogen/Creatinine [Mass ratio] 8.2 mg/mg Normal [facility] Comment on above: Performed By: #### T 7, LIPA, TSH, AMADOU, CMP #### [facility] [address] [place] [address] Dr. Krystle Heaton TSHon 03-22-2021 TSH 2.059 uIU/mL Normal 0.470-4.680 [facility] Comment on above: Performed By: #### T 7, LIPA, TSH, AMADOU, CMP #### [facility] [address] [place] [address] Dr. Krystle Heaton TSH RANGE SEE BELOW Normal [facility] Comment on above: Result Comment: <0.3 4 UIU/ml HYPERTHYROID 0.34-5.60 UIU/ml EUTHYROID >5.60 UIU/ml HYPOTHYROID Performed By: #### T 7, LIPA, TSH, AMADOU, CMP #### [facility] [address] [place] [address] Dr. Krystle Heaton CBC AUTO DIFFon 03-17-2021 BASO # 0.0 103/ul Normal 0.0-0.1 [facility] Comment on above: Performed By: #### T 7, LIPA, TSH, AMADOU, CMP #### [facility] [address] [place] [address] Dr. Krystle Heaton Basophils/100 WBC (Bld) 0.3 % Normal 0.2-2.0 [facility] Comment on above: Performed By: #### T 7, LIPA, TSH, AMADOU, CMP #### [facility] [address] [place] [address] Dr. Krystle Heaton EO # 0.1 103/ul Normal 0.0-0.7 [facility] Comment on above: Performed By: #### T 7, LIPA, TSH, AMADOU, CMP #### [facility] [address] [place] [address] Dr. Krystle Heaton Eosinophils/100 WBC (Bld) 1.8 % Normal 0.9-7.0 [facility] Comment on above: Performed By: #### T 7, LIPA, TSH, AMADOU, CMP #### [facility] [address] [place] [address] Dr. Krystle Heaton Erythrocyte distribution width (RBC) [Ratio] 12.5 % Normal 11.0-15.0 [facility] Comment on above: Performed By: #### T 7, LIPA, TSH, AMADOU, CMP #### [facility] [address] [place] [address] Dr. Krystle Heaton Hematocrit (Bld) [Volume fraction] 40.9 % Critically low 42.0-54.0 [facility] Comment on above: Performed By: #### T 7, LIPA, TSH, AMADOU, CMP #### [facility] [address] [place] [address] Dr. Krystle Heaton Hemoglobin (Bld) [Mass/Vol] 14.1 g/dL Normal 14.0-18.0 [facility] Comment on above: Performed By: #### T 7, LIPA, TSH, AMADOU, CMP #### [facility] [address] [place] [address] Dr. Krystle Heaton IG # 0.01 10e3/ul Normal 0.00-0.03 [facility] Comment on above: Performed By: #### T 7, LIPA, TSH, AMADOU, CMP #### [facility] [address] [place] [address] Dr. Krystle Heaton IG % 0.3 % Normal 0.0-0.5 [facility] Comment on above: Performed By: #### T 7, LIPA, TSH, AMADOU, CMP #### [facility] [address] [place] [address] Dr. Krystle Heaton LYMPH # 1.3 103/ul Normal 1.2-3.8 [facility] Comment on above: Performed By: #### T 7, LIPA, TSH, AMADOU, CMP #### [facility] [address] [place] [address] Dr. Krystle Heaton Lymphocytes/100 WBC (Bld) 41.1 % Normal 20.5-60.0 [facility] Comment on above: Performed By: #### T 7, LIPA, TSH, AMADOU, CMP #### [facility] [address] [place] [address] Dr. Krystle Heaton MANUAL DIFF REQ NO Normal [facility] Comment on above: Performed By: #### T 7, LIPA, TSH, AMADOU, CMP #### [facility] [address] [place] [address] Dr. Krystle Heaton MCH (RBC) [Entitic mass] 36.3 pg Critically high 25.9-34.0 [facility] Comment on above: Performed By: #### T 7, LIPA, TSH, AMADOU, CMP #### [facility] [address] [place] [address] Dr. Krystle Heaton MCHC (RBC) [Mass/Vol] 34.5 g/dL Normal 29.9-35.2 [facility] Comment on above: Performed By: #### T 7, LIPA, TSH, AMADOU, CMP #### [facility] [address] [place] [address] Dr. Krystle Heaton MCV (RBC) [Entitic vol] 105.4 fL Critically high 80.0-94.0 [facility] Comment on above: Performed By: #### T 7, LIPA, TSH, AMADOU, CMP #### [facility] [address] [place] [address] Dr. Krystle Heaton MONO # 0.3 103/ul Normal 0.3-0.8 [facility] Comment on above: Performed By: #### T 7, LIPA, TSH, AMADOU, CMP #### [facility] [address] [place] [address] Dr. Krystle Heaton Monocytes/100 WBC (Bld) 8.0 % Normal 1.7-12.0 [facility] Comment on above: Performed By: #### T 7, LIPA, TSH, AMADOU, CMP #### [facility] [address] [address] [address] Krystle Heaton NEUT # 1.6 103/ul Normal 1.4-6.5 [facility] Comment on above: Performed By: #### T 7, LIPA, TSH, AMADOU, CMP #### [facility] [address] [address] [address] Krystle Heaton Neutrophils/100 WBC (Bld) 48.5 % Normal 43.0-75.0 [facility] Comment on above: Performed By: #### T 7, LIPA, TSH, AMADOU, CMP #### [facility] [address] [place] [address] Dr. Krystle Heaton Platelet mean volume (Bld) [Entitic vol] 10.6 fL Normal 9.5-13.5 [facility] Comment on above: Performed By: #### T 7, LIPA, TSH, AMADOU, CMP #### [facility] [address] [place] [address] Dr. Krystle Heaton PLT 134 103/ul Critically low 150-450 [facility] Comment on above: Performed By: #### T 7, LIPA, TSH, AMAODU, CMP #### [facility] [address] [place] [address] Dr. Krystle Heaton RBC 3.88 106/ul Critically low 4.70-6.10 [facility] Comment on above: Result Comment: Macr ocytosis 1+ Stomatocytes 1+ Performed By: #### T 7, LIPA, TSH, AMADOU, CMP #### [facility] [address] [place] [address] Dr. Krystle Heaton WBC 3.3 103/ul Critically low 4.0-11.0 [facility] Comment on above: Performed By: #### T 7, LIPA, TSH, AMADOU, CMP #### [facility] [address] [place] [address] Dr. Krystle Heaton FERRITINon 03-17-2021 Ferritin [Mass/Vol] ng/mL Critically high 17.9-464.0 [facility] Comment on above: Performed By: #### T 7, LIPA, TSH, AMADOU, CMP #### [facility] [address] [place] [address] Dr. Krystle Heaton FREE T4on 03-17-2021 Free T4 [Mass/Vol] 0.82 ng/dL Normal 0.78-2.[address] [facility] Comment on above: Performed By: #### T 7, LIPA, TSH, AMADOU, CMP #### [facility] [address] [place] [address] Dr. Krystle Heaton IRON AND TIBCon 03-17-2021 % SATURATION 100.8 % Normal [facility] Comment on above: Performed By: #### T 7, LIPA, TSH, AMADOU, CMP #### [facility] [address] [place] [address] Dr. Krystle Heaton Iron [Mass/Vol] 249.0 ug/dL Critically high 49.0-181.0 [facility] Comment on above: Performed By: #### T 7, LIPA, TSH, AMADOU, CMP #### [facility] [address] [place] [address] Dr. Krystle Heaton TIBC DIRECT 247.0 ug/dL Critically low 261.0-497.0 [facility] Comment on above: Performed By: #### T 7, LIPA, TSH, AMADOU, CMP #### [facility] [address] [place] [address] Dr. Krystle Heaton PROF 14(COMP METB)on 021 Albumin [Mass/Vol] 3.7 g/dL Normal 3.5-5.[address] [facility] Comment on above: Performed By: #### T 7, LIPA, TSH, AMADOU, CMP #### [facility] [address] [place] [address] Dr. Krystle Heaton Albumin/Globulin [Mass ratio] 1.1 {ratio} Normal [facility] Comment on above: Performed By: #### T 7, LIPA, TSH, AMADOU, CMP #### [facility] [address] [place] [address] Dr. Krystle Heaton ALP [Catalytic activity/Vol] 78 U/L Normal 38-126 [facility] Comment on above: Performed By: #### T 7, LIPA, TSH, AMADOU, CMP #### [facility] [address] [place] [address] Dr. Krystle Heaton ALT [Catalytic activity/Vol] 100 U/L Critically high 21-72 [facility] Comment on above: Performed By: #### T 7, LIPA, TSH, AMADOU, CMP #### [facility] [address] [place] [address] Dr. Krystle Heaton Anion gap [Moles/Vol] 14.4 mmol/L Normal [facility] Comment on above: Performed By: #### T 7, LIPA, TSH, AMADOU, CMP #### [facility] [address] [place] [address] Dr. Krystle Heaton AST [Catalytic activity/Vol] 158 U/L Critically high 17-59 [facility] Comment on above: Performed By: #### T 7, LIPA, TSH, AMADOU, CMP #### [facility] [address] [place] [address] Dr. Krystle Heaton Bilirubin [Mass/Vol] 0.6 mg/dL Normal 0.2-1.3 [facility] Comment on above: Performed By: #### T 7, LIPA, TSH, AMADOU, CMP #### [facility] [address] [place] [address] Dr. Krystle Heaton Calcium [Mass/Vol] 8.9 mg/dL Normal 8.4-10.2 [facility] Comment on above: Performed By: #### T 7, LIPA, TSH, AMADOU, CMP #### [facility] [address] [place] [address] Dr. Krystle Heaton Chloride [Moles/Vol] 100 mmol/L Normal 98-107 [facility] Comment on above: Performed By: #### T 7, LIPA, TSH, AMADOU, CMP #### [facility] [address] [place] [address] Dr. Krystle Heaton CO2 [Moles/Vol] 27.3 mmol/L Normal 22.0-30.[address] [facility] Comment on above: Performed By: #### T 7, LIPA, TSH, AMADOU, CMP #### [facility] [address] [address] [address] Krystle Heaton Creatinine [Mass/Vol] 1.08 mg/dL Normal 0.66-1.25 [facility] Comment on above: Performed By: #### T 7, LIPA, TSH, AMADOU, CMP #### [facility] [address] [address] [address] Krystle Heaton EGFR-AF SIERRA LEONEAN >60 Normal >=[address] [facility] Comment on above: Performed By: #### T 7, LIPA, TSH, AMADOU, CMP #### [facility] [address] [place] [address] Dr. Krystle Heaton EGFR-NON AF SIERRA LEONEAN >60 Normal >=60 [facility] Comment on above: Performed By: #### T 7, LIPA, TSH, AMADOU, CMP #### [facility] [address] [place] [address] Dr. Krystle Heaton Globulin (S) [Mass/Vol] 3.5 g/dL Normal [facility] Comment on above: Performed By: #### T 7, LIPA, TSH, AMADOU, CMP #### [facility] [address] [place] [address] Dr. Krystle Heaton Glucose [Mass/Vol] 115 mg/dL Critically high 74-106 [facility] Comment on above: Performed By: #### T 7, LIPA, TSH, AMADOU, CMP #### [facility] [address] [place] [address] Dr. Krystle Heaton Potassium [Moles/Vol] 3.7 mmol/L Normal 3.4-5.0 [facility] Comment on above: Performed By: #### T 7, LIPA, TSH, AMADOU, CMP #### [facility] [address] [place] [address] Dr. Krystle Heaton Protein [Mass/Vol] 7.2 g/dL Normal 6.1-8.[address] [facility] Comment on above: Performed By: #### T 7, LIPA, TSH, AMADOU, CMP #### [facility] [address] [place] [address] Dr. Krystle Heaton Sodium [Moles/Vol] 138 mmol/L Normal 137-[address] [facility] Comment on above: Performed By: #### T 7, LIPA, TSH, AMADOU, CMP #### [facility] [address] [place] [address] Dr. Krystle Heaton Urea nitrogen [Mass/Vol] 10.0 mg/dL Normal 9.0-20.0 [facility] Comment on above: Performed By: #### T 7, LIPA, TSH, AMADOU, CMP #### [facility] [address] [place] [address] Dr. Krystle Heaton Urea nitrogen/Creatinine [Mass ratio] 9.3 mg/mg Normal [facility] Comment on above: Performed By: #### T 7, LIPA, TSH, AMADOU, CMP #### [facility] [address] [place] [address] Dr. Krystle Heaton TSHon 03-17-2021 TSH 1.904 uIU/mL Normal 0.470-4.[address] [facility] Comment on above: Performed By: #### T 7, LIPA, TSH, AMADOU, CMP #### [facility] [address] [place] [address] Dr. Krystle Heaton TSH RANGE SEE BELOW Normal [facility] Comment on above: Result Comment: <0.3 4 UIU/ml HYPERTHYROID 0.34-5.60 UIU/ml EUTHYROID >5.60 UIU/ml HYPOTHYROID Performed By: #### T 7, LIPA, TSH, AMADOU, CMP #### [facility] [address] [place] [address] Dr. Krystle Heaton CBC AUTO DIFFon 03-08-2021 BASO # 0.0 103/ul Normal 0.0-0.1 [facility] Comment on above: Performed By: #### T 7, LIPA, TSH, AMADOU, CMP #### [facility] [address] [place] [address] Dr. Krystle Heaton Basophils/100 WBC (Bld) 0.8 % Normal 0.2-2.0 [facility] Comment on above: Performed By: #### T 7, LIPA, TSH, AMADOU, CMP #### [facility] [address] [place] [address] Dr. Krystle Heaton EO # 0.1 103/ul Normal 0.0-0.7 [facility] Comment on above: Performed By: #### T 7, LIPA, TSH, AMADOU, CMP #### [facility] [address] [place] [address] Dr. Krystle Heaton Eosinophils/100 WBC (Bld) 1.5 % Normal 0.9-7.0 [facility] Comment on above: Performed By: #### T 7, LIPA, TSH, AMADOU, CMP #### [facility] [address] [place] [address] Dr. Krystle Heaton Erythrocyte distribution width (RBC) [Ratio] 12.2 % Normal 11.0-15.0 [facility] Comment on above: Performed By: #### T 7, LIPA, TSH, AMADOU, CMP #### [facility] [address] [place] [address] Dr. Krystle Heaton Hematocrit (Bld) [Volume fraction] 45.5 % Normal 42.0-54.0 [facility] Comment on above: Performed By: #### T 7, LIPA, TSH, AMADOU, CMP #### [facility] [address] [place] [address] Dr. Krystle Heaton Hemoglobin (Bld) [Mass/Vol] 15.9 g/dL Normal 14.0-18.0 [facility] Comment on above: Performed By: #### T 7, LIPA, TSH, AMADOU, CMP #### [facility] [address] [place] [address] Dr. Krystle Heaton IG # 0.01 10e3/ul Normal 0.00-0.03 [facility] Comment on above: Performed By: #### T 7, LIPA, TSH, AMADOU, CMP #### [facility] [address] [place] [address] Dr. Krystle Hetaon IG % 0.2 % Normal 0.0-0.5 [facility] Comment on above: Performed By: #### T 7, LIPA, TSH, AMADOU, CMP #### [facility] [address] [place] [address] Dr. Krystle Heaton LYMPH # 1.8 103/ul Normal 1.2-3.8 [facility] Comment on above: Performed By: #### T 7, LIPA, TSH, AMADOU, CMP #### [facility] [address] [place] [address] Dr. Krystle Heaton Lymphocytes/100 WBC (Bld) 37.8 % Normal 20.5-60.0 [facility] Comment on above: Performed By: #### T 7, LIPA, TSH, AMADOU, CMP #### [facility] [address] [place] [address] Dr. Krystle Heaton MANUAL DIFF REQ NO Normal [facility] Comment on above: Performed By: #### T 7, LIPA, TSH, AMADOU, CMP #### [facility] [address] [place] [address] Dr. Krystle Heaton MCH (RBC) [Entitic mass] 36.4 pg Critically high 25.9-34.0 [facility] Comment on above: Performed By: #### T 7, LIPA, TSH, AMADOU, CMP #### [facility] [address] [place] [address] Dr. Krystle Heaton MCHC (RBC) [Mass/Vol] 34.9 g/dL Normal 29.9-35.2 [facility] Comment on above: Performed By: #### T 7, LIPA, TSH, AMADOU, CMP #### [facility] [address] [place] [address] Dr. Krystle Heaton MCV (RBC) [Entitic vol] 104.1 fL Critically high 80.0-94.0 [facility] Comment on above: Performed By: #### T 7, LIPA, TSH, AMADOU, CMP #### [facility] [address] [place] [address] Dr. Krystle Heaton MONO # 0.4 103/ul Normal 0.3-0.8 [facility] Comment on above: Performed By: #### T 7, LIPA, TSH, AMADOU, CMP #### [facility] [address] [place] [address] Dr. Krystle Heaton Monocytes/100 WBC (Bld) 8.3 % Normal 1.7-12.0 [facility] Comment on above: Performed By: #### T 7, LIPA, TSH, AMADOU, CMP #### [facility] [address] [place] [address] Dr. Krystle Heaton NEUT # 2.4 103/ul Normal 1.4-6.5 [facility] Comment on above: Performed By: #### T 7, LIPA, TSH, AMADOU, CMP #### [facility] [address] [place] [address] Dr. Krystle Heaton Neutrophils/100 WBC (Bld) 51.4 % Normal 43.0-75.0 [facility] Comment on above: Performed By: #### T 7, LIPA, TSH, AMADOU, CMP #### [facility] [address] [place] [address] Dr. Krystle Heaton Platelet mean volume (Bld) [Entitic vol] 10.8 fL Normal 9.5-13.5 [facility] Comment on above: Performed By: #### T 7, LIPA, TSH, AMADOU, CMP #### [facility] [address] [place] [address] Dr. Krystle Heaton PLT 175 103/ul Normal 150-450 [facility] Comment on above: Performed By: #### T 7, LIPA, TSH, AMADOU, CMP #### [facility] [address] [place] [address] Dr. rKystle Heaton RBC 4.37 106/ul Critically low 4.70-6.10 [facility] Comment on above: Performed By: #### T 7, LIPA, TSH, AMADOU, CMP #### [facility] [address] [place] [address] Dr. Krystle Heaton WBC 4.7 103/ul Normal 4.0-11.0 [facility] Comment on above: Performed By: #### T 7, LIPA, TSH, AMADOU, CMP #### [facility] [address] [place] [address] Dr. Krystle Heaton FERRITINon 03-08-2021 Ferritin [Mass/Vol] ng/mL Critically high 17.9-464.0 [facility] Comment on above: Performed By: #### T 7, LIPA, TSH, AMADOU, CMP #### [facility] [address] [place] [address] Dr. Krystle Heaton FREE T4on 03-08-2021 Free T4 [Mass/Vol] 0.73 ng/dL Critically low 0.78-2.19 [facility] Comment on above: Performed By: #### T 7, LIPA, TSH, AMADOU, CMP #### [facility] [address] [place] [address] Dr. Krystle Heaton IRON AND TIBCon 03-08-2021 % SATURATION 102.2 % Normal [facility] Comment on above: Performed By: #### T 7, LIPA, TSH, AMADOU, CMP #### [facility] [address] [place] [address] Dr. Krystle Heaton Iron [Mass/Vol] 279.0 ug/dL Critically high 49.0-181.0 [facility] Comment on above: Performed By: #### T 7, LIPA, TSH, AMADOU, CMP #### [facility] [address] [place] [address] Dr. Krystle Heaton TIBC DIRECT 273.0 ug/dL Normal 261.0-497.0 [facility] Comment on above: Performed By: #### T 7, LIPA, TSH, AMADOU, CMP #### [facility] [address] [place] [address] Dr. Krystle Heaton PROF 14(COMP METB)on 021 Albumin [Mass/Vol] 3.6 g/dL Normal 3.5-5.0 [facility] Comment on above: Performed By: #### T 7, LIPA, TSH, AMADOU, CMP #### [facility] [address] [place] [address] Dr. Krystle Heaton Albumin/Globulin [Mass ratio] 1.0 {ratio} Normal [facility] Comment on above: Performed By: #### T 7, LIPA, TSH, AMADOU, CMP #### [facility] [address] [place] [address] Dr. Krystle Heaton ALP [Catalytic activity/Vol] 68 U/L Normal 38-126 [facility] Comment on above: Performed By: #### T 7, LIPA, TSH, AMADOU, CMP #### [facility] [address] [place] [address] Dr. Krystle Heaton ALT [Catalytic activity/Vol] 58 U/L Normal 21-72 [facility] Comment on above: Performed By: #### T 7, LIPA, TSH, AMADOU, CMP #### [facility] [address] [place] [address] Dr. Krystle Heaton Anion gap [Moles/Vol] 15.5 mmol/L Normal [facility] Comment on above: Performed By: #### T 7, LIPA, TSH, AMADOU, CMP #### [facility] [address] [place] [address] Dr. Krystle Heaton AST [Catalytic activity/Vol] 56 U/L Normal 17-59 [facility] Comment on above: Performed By: #### T 7, LIPA, TSH, AMADOU, CMP #### [facility] [address] [place] [address] Dr. Krystle Heaton Bilirubin [Mass/Vol] 0.7 mg/dL Normal 0.2-1.3 [facility] Comment on above: Performed By: #### T 7, LIPA, TSH, AMADOU, CMP #### [facility] [address] [place] [address] Dr. Krystle Heaton Calcium [Mass/Vol] 8.9 mg/dL Normal 8.4-10.[address] [facility] Comment on above: Performed By: #### T 7, LIPA, TSH, AMADOU, CMP #### [facility] [address] [place] [address] Dr. Krystle Heaton Chloride [Moles/Vol] 100 mmol/L Normal 98-107 [facility] Comment on above: Performed By: #### T 7, LIPA, TSH, AMADOU, CMP #### [facility] [address] [address] [address] Krystle Heaton CO2 [Moles/Vol] 26.6 mmol/L Normal 22.0-30.0 [facility] Comment on above: Performed By: #### T 7, LIPA, TSH, AMADOU, CMP #### [facility] [address] [place] [address] Dr. Krystle Heaton Creatinine [Mass/Vol] 1.12 mg/dL Normal 0.66-1.25 [facility] Comment on above: Performed By: #### T 7, LIPA, TSH, AMADOU, CMP #### [facility] [address] [place] [address] Dr. Krystle Heaton EGFR-AF SIERRA LEONEAN >60 Normal >=60 [facility] Comment on above: Performed By: #### T 7, LIPA, TSH, AMADOU, CMP #### [facility] [address] [place] [address] Dr. Krystle Heaton EGFR-NON AF SIERRA LEONEAN >60 Normal >=60 [facility] Comment on above: Performed By: #### T 7, LIPA, TSH, AMADOU, CMP #### [facility] [address] [place] [address] Dr. Krystle Heaton Globulin (S) [Mass/Vol] 3.7 g/dL Normal [facility] Comment on above: Performed By: #### T 7, LIPA, TSH, AMADOU, CMP #### [facility] [address] [place] [address] Dr. Krystle Heaton Glucose [Mass/Vol] 101 mg/dL Normal 74-[address] [facility] Comment on above: Performed By: #### T 7, LIPA, TSH, AMDAOU, CMP #### [facility] [address] [address] [address] Krystle Heaton Potassium [Moles/Vol] 4.1 mmol/L Normal 3.4-5.0 [facility] Comment on above: Performed By: #### T 7, LIPA, TSH, AMADOU, CMP #### [facility] [address] [place] [address] Dr. Krystle Heaton Protein [Mass/Vol] 7.3 g/dL Normal 6.1-8.2 [facility] Comment on above: Performed By: #### T 7, LIPA, TSH, AMADOU, CMP #### [facility] [address] [place] [address] Dr. Krystle Heaton Sodium [Moles/Vol] 138 mmol/L Normal 137-[address] [facility] Comment on above: Performed By: #### T 7, LIPA, TSH, AMADOU, CMP #### [facility] [address] [place] [address] Dr. Krystle Heaton Urea nitrogen [Mass/Vol] 17.0 mg/dL Normal 9.0-20.0 [facility] Comment on above: Performed By: #### T 7, LIPA, TSH, AMADOU, CMP #### [facility] [address] [place] [address] Dr. Krystle Heaton Urea nitrogen/Creatinine [Mass ratio] 15.2 mg/mg Normal [facility] Comment on above: Performed By: #### T 7, LIPA, TSH, AMADOU, CMP #### [facility] [address] [place] [address] Dr. Krystle Heaton TSHon 03-08-2021 TSH 1.781 uIU/mL Normal 0.470-4.[address] [facility] Comment on above: Performed By: #### T 7, LIPA, TSH, AMADOU, CMP #### [facility] [address] [place] [address] Dr. Krystle Heaton TSH RANGE SEE BELOW Normal [facility] Comment on above: Result Comment: <0.3 4 UIU/ml HYPERTHYROID 0.34-5.60 UIU/ml EUTHYROID >5.60 UIU/ml HYPOTHYROID Performed By: #### T 7, LIPA, TSH, AMADOU, CMP #### [facility] [address] [place] [address] Dr. Krystle Heaton FERRITINon 02-03-2021 Ferritin [Mass/Vol] ng/mL Critically high 17.9-464.0 [facility] Comment on above: Performed By: #### C BC #### [facility] [address] [place] [address] Billy Devlin [facility] SARS-CoV-2 (COVID-19) RNA JIMBO+probe Ql (Unsp spec) Not detected Normal NOT DETECTED [facility] Comment on above: Result Comment: This test is not yet approved or cleared by the [place] FDA. When there are no FDA-approved or cleared tests available, and other criteria are met, FDA can make tests available under an emergency access mechanism called an Emergency Use Authorization (EUA). The EUA for this test is supported by the [place] of Health and Human Service's (HHS's) declaration [...] T 7, LIPA, TSH, AMADOU, CMP #### [facility] [address] [place] [address] Dr. Krystle Heaton CBC AUTO DIFFon 01-06-2021 BASO # 0.0 103/ul Normal 0.0-0.1 [facility] Comment on above: Performed By: #### T 7, LIPA, TSH, AMADOU, CMP #### [facility] [address] [place] [address] Dr. Krystle Heaton Basophils/100 WBC (Bld) 1.0 % Normal 0.2-2.0 [facility] Comment on above: Performed By: #### T 7, LIPA, TSH, AMADOU, CMP #### [facility] [address] [place] [address] Dr. Krystle Heaton EO # 0.1 103/ul Normal 0.0-0.7 [facility] Comment on above: Performed By: #### T 7, LIPA, TSH, AMADOU, CMP #### [facility] [address] [place] [address] Dr. Krystle Heaton Eosinophils/100 WBC (Bld) 2.5 % Normal 0.9-7.0 [facility] Comment on above: Performed By: #### T 7, LIPA, TSH, AMADOU, CMP #### [facility] [address] [place] [address] Dr. Krystle Heaton Erythrocyte distribution width (RBC) [Ratio] 13.7 % Normal 11.0-15.0 [facility] Comment on above: Performed By: #### T 7, LIPA, TSH, AMADOU, CMP #### [facility] [address] [place] [address] Dr. Krystle Heaton Hematocrit (Bld) [Volume fraction] 44.1 % Normal 42.0-54.0 [facility] Comment on above: Performed By: #### T 7, LIPA, TSH, AMADOU, CMP #### [facility] [address] [place] [address] Dr. Krystle Heaton Hemoglobin (Bld) [Mass/Vol] 15.0 g/dL Normal 14.0-18.0 [facility] Comment on above: Performed By: #### T 7, LIPA, TSH, AMADOU, CMP #### [facility] [address] [place] [address] Dr. Krystle Heaton IG # 0.02 10e3/ul Normal 0.00-0.03 [facility] Comment on above: Performed By: #### T 7, LIPA, TSH, AMADOU, CMP #### [facility] [address] [place] [address] Dr. Krystle Heaton IG % 0.5 % Normal 0.0-0.5 [facility] Comment on above: Performed By: #### T 7, LIPA, TSH, AMADOU, CMP #### [facility] [address] [place] [address] Dr. Krystle Heaton LYMPH # 1.6 103/ul Normal 1.2-3.8 [facility] Comment on above: Performed By: #### T 7, LIPA, TSH, AMADOU, CMP #### [facility] [address] [place] [address] Dr. Krystle Heaton Lymphocytes/100 WBC (Bld) 40.7 % Normal 20.5-60.0 [facility] Comment on above: Performed By: #### T 7, LIPA, TSH, AMADOU, CMP #### [facility] [address] [place] [address] Dr. Krystle Heaton MANUAL DIFF REQ NO Normal [facility] Comment on above: Performed By: #### T 7, LIPA, TSH, AMADOU, CMP #### [facility] [address] [place] [address] Dr. Krystle Heaton MCH (RBC) [Entitic mass] 36.2 pg Critically high 25.9-34.0 [facility] Comment on above: Performed By: #### T 7, LIPA, TSH, AMADOU, CMP #### [facility] [address] [place] [address] Dr. Krystle Heaton MCHC (RBC) [Mass/Vol] 34.0 g/dL Normal 29.9-35.2 [facility] Comment on above: Performed By: #### T 7, LIPA, TSH, AMADOU, CMP #### [facility] [address] [place] [address] Dr. Krystle Heaton MCV (RBC) [Entitic vol] 106.5 fL Critically high 80.0-94.0 [facility] Comment on above: Performed By: #### T 7, LIPA, TSH, AMADOU, CMP #### [facility] [address] [place] [address] Dr. Krystle Heaton MONO # 0.3 103/ul Normal 0.3-0.8 [facility] Comment on above: Performed By: #### T 7, LIPA, TSH, AMADOU, CMP #### [facility] [address] [place] [address] Dr. Krystle Heaton Monocytes/100 WBC (Bld) 8.1 % Normal 1.7-12.0 [facility] Comment on above: Performed By: #### T 7, LIPA, TSH, AMADOU, CMP #### [facility] [address] [address] [address] Krystle Heaton NEUT # 1.9 103/ul Normal 1.4-6.5 [facility] Comment on above: Performed By: #### T 7, LIPA, TSH, AMADOU, CMP #### [facility] [address] [place] [address] Dr. Krystle Heaton Neutrophils/100 WBC (Bld) 47.2 % Normal 43.0-75.0 [facility] Comment on above: Performed By: #### T 7, LIPA, TSH, AMADOU, CMP #### [facility] [address] [place] [address] Dr. Krystle Heaton Platelet mean volume (Bld) [Entitic vol] 11.6 fL Normal 9.5-13.5 [facility] Comment on above: Performed By: #### T 7, LIPA, TSH, AMADOU, CMP #### [facility] [address] [place] [address] Dr. Krystle Heaton PLT 184 103/ul Normal 150-450 [facility] Comment on above: Performed By: #### T 7, LIPA, TSH, AMADOU, CMP #### [facility] [address] [place] [address] Dr. Krystle Heaton RBC 4.14 106/ul Critically low 4.70-6.10 [facility] Comment on above: Performed By: #### T 7, LIPA, TSH, AMADOU, CMP #### [facility] [address] [place] [address] Dr. Krystle Heaton WBC 4.0 103/ul Normal 4.0-11.0 [facility] Comment on above: Performed By: #### T 7, LIPA, TSH, AMADOU, CMP #### [facility] [address] [address] [address] Krystle Heaton FERRITINon 01-06-2021 Ferritin [Mass/Vol] ng/mL Critically high 17.9-464.0 [facility] Comment on above: Performed By: #### H BSANS #### [facility] [address] [place] [address] Billy Devlin CBC AUTO DIFFon 12-09-2020 BASO # 0.0 103/ul Normal 0.0-0.1 [facility] Comment on above: Performed By: #### T 7, LIPA, TSH, AMADOU, CMP #### [facility] [address] [place] [address] Dr. Krystle Heaton Basophils/100 WBC (Bld) 0.6 % Normal 0.2-2.0 [facility] Comment on above: Performed By: #### T 7, LIPA, TSH, AMADOU, CMP #### [facility] [address] [place] [address] Dr. Krystle Heaton EO # 0.1 103/ul Normal 0.0-0.7 [facility] Comment on above: Performed By: #### T 7, LIPA, TSH, AMADOU, CMP #### [facility] [address] [place] [address] Dr. Krystle Heaton Eosinophils/100 WBC (Bld) 2.6 % Normal 0.9-7.0 [facility] Comment on above: Performed By: #### T 7, LIPA, TSH, AMADOU, CMP #### [facility] [address] [place] [address] Dr. Krystle Heaton Erythrocyte distribution width (RBC) [Ratio] 13.0 % Normal 11.0-15.0 [facility] Comment on above: Performed By: #### T 7, LIPA, TSH, AMADOU, CMP #### [facility] [address] [place] [address] Dr. Krystle Heaton Hematocrit (Bld) [Volume fraction] 46.2 % Normal 42.0-54.0 [facility] Comment on above: Performed By: #### T 7, LIPA, TSH, AMADOU, CMP #### [facility] [address] [place] [address] Dr. Krystle Heaton Hemoglobin (Bld) [Mass/Vol] 16.0 g/dL Normal 14.0-18.0 [facility] Comment on above: Performed By: #### T 7, LIPA, TSH, AMADOU, CMP #### [facility] [address] [place] [address] Dr. Krystle Heaton IG # 0.01 10e3/ul Normal 0.00-0.03 [facility] Comment on above: Performed By: #### T 7, LIPA, TSH, AMADOU, CMP #### [facility] [address] [place] [address] Dr. Krystle Heaton IG % 0.2 % Normal 0.0-0.5 [facility] Comment on above: Performed By: #### T 7, LIPA, TSH, AMADOU, CMP #### [facility] [address] [place] [address] Dr. Krystle Heaton LYMPH # 1.3 103/ul Normal 1.2-3.8 [facility] Comment on above: Performed By: #### T 7, LIPA, TSH, AMADOU, CMP #### [facility] [address] [place] [address] Dr. Krystle Heaton Lymphocytes/100 WBC (Bld) 27.8 % Normal 20.5-60.0 [facility] Comment on above: Performed By: #### T 7, LIPA, TSH, AMADOU, CMP #### [facility] [address] [place] [address] Dr. Krystle Heaton MANUAL DIFF REQ NO Normal [facility] Comment on above: Performed By: #### T 7, LIPA, TSH, AMADOU, CMP #### [facility] [address] [place] [address] Dr. Krystle Heaton MCH (RBC) [Entitic mass] 34.9 pg Critically high 25.9-34.0 [facility] Comment on above: Performed By: #### T 7, LIPA, TSH, AMADOU, CMP #### [facility] [address] [place] [address] Dr. Krystle Heaton MCHC (RBC) [Mass/Vol] 34.6 g/dL Normal 29.9-35.2 [facility] Comment on above: Performed By: #### T 7, LIPA, TSH, AMADOU, CMP #### [facility] [address] [place] [address] Dr. Krystle Heaton MCV (RBC) [Entitic vol] 100.9 fL Critically high 80.0-94.0 [facility] Comment on above: Performed By: #### T 7, LIPA, TSH, AMADOU, CMP #### [facility] [address] [place] [address] Dr. Krystle Heaton MONO # 0.3 103/ul Normal 0.3-0.8 [facility] Comment on above: Performed By: #### T 7, LIPA, TSH, AMADOU, CMP #### [facility] [address] [place] [address] Dr. Krystle Heaton Monocytes/100 WBC (Bld) 6.6 % Normal 1.7-12.0 [facility] Comment on above: Performed By: #### T 7, LIPA, TSH, AMADOU, CMP #### [facility] [address] [place] [address] Dr. Krystle Heaton NEUT # 2.9 103/ul Normal 1.4-6.5 [facility] Comment on above: Performed By: #### T 7, LIPA, TSH, AMADOU, CMP #### [facility] [address] [place] [address] Dr. Krystle Heaton Neutrophils/100 WBC (Bld) 62.2 % Normal 43.0-75.0 [facility] Comment on above: Performed By: #### T 7, LIPA, TSH, AMADOU, CMP #### [facility] [address] [place] [address] Dr. Krystle Heaton Platelet mean volume (Bld) [Entitic vol] 11.0 fL Normal 9.5-13.5 [facility] Comment on above: Performed By: #### T 7, LIPA, TSH, AMADOU, CMP #### [facility] [address] [place] [address] Dr. Krystle Heaton PLT 171 103/ul Normal 150-450 [facility] Comment on above: Performed By: #### T 7, LIPA, TSH, AMADOU, CMP #### [facility] [address] [address] [address] Krystle Heaton RBC 4.58 106/ul Critically low 4.70-6.10 [facility] Comment on above: Performed By: #### T 7, LIPA, TSH, AMADOU, CMP #### [facility] [address] [place] [address] Dr. Krystle Heaton WBC 4.7 103/ul Normal 4.0-11.0 [facility] Comment on above: Performed By: #### T 7, LIPA, TSH, AMADOU, CMP #### [facility] [address] [place] [address] Dr. Krystle Heaton PROF 14(COMP METB)on 021 Albumin [Mass/Vol] 3.9 g/dL Normal 3.5-5.0 [facility] Comment on above: Performed By: #### T 7, LIPA, TSH, AMADOU, CMP #### [facility] [address] [place] [address] Dr. Krystle Heaton Albumin/Globulin [Mass ratio] 1.1 {ratio} Normal [facility] Comment on above: Performed By: #### T 7, LIPA, TSH, AMADOU, CMP #### [facility] [address] [place] [address] Dr. Krystle Heaton ALP [Catalytic activity/Vol] 86 U/L Normal 38-126 [facility] Comment on above: Performed By: #### T 7, LIPA, TSH, AMADOU, CMP #### [facility] [address] [place] [address] Dr. Krystle Heaton ALT [Catalytic activity/Vol] 87 U/L Critically high 21-72 [facility] Comment on above: Performed By: #### T 7, LIPA, TSH, AMADOU, CMP #### [facility] [address] [place] [address] Dr. Krystle Heaton Anion gap [Moles/Vol] 15.7 mmol/L Normal [facility] Comment on above: Performed By: #### T 7, LIPA, TSH, AMADOU, CMP #### [facility] [address] [place] [address] Dr. Krystle Heaton AST [Catalytic activity/Vol] 70 U/L Critically high 17-59 [facility] Comment on above: Performed By: #### T 7, LIPA, TSH, AMADOU, CMP #### [facility] [address] [place] [address] Dr. Krystle Heaton Bilirubin [Mass/Vol] 1.4 mg/dL Critically high 0.2-1.3 [facility] Comment on above: Performed By: #### T 7, LIPA, TSH, AMADOU, CMP #### [facility] [address] [place] [address] Dr. Krystle Heaton Calcium [Mass/Vol] 9.3 mg/dL Normal 8.4-10.[address] [facility] Comment on above: Performed By: #### T 7, LIPA, TSH, AMADOU, CMP #### [facility] [address] [place] [address] Dr. Krystle Heaton Chloride [Moles/Vol] 102 mmol/L Normal 98-107 [facility] Comment on above: Performed By: #### T 7, LIPA, TSH, AMADOU, CMP #### [facility] [address] [place] [address] Dr. Krystle Heaton CO2 [Moles/Vol] 26.5 mmol/L Normal 22.0-30.0 [facility] Comment on above: Performed By: #### T 7, LIPA, TSH, AMADOU, CMP #### [facility] [address] [place] [address] Dr. Krystle Heaton Creatinine [Mass/Vol] 1.27 mg/dL Critically high 0.66-1.25 [facility] Comment on above: Performed By: #### T 7, LIPA, TSH, AMADOU, CMP #### [facility] [address] [place] [address] Dr. Krystle Heaton EGFR-AF SIERRA LEONEAN >60 Normal >=60 [facility] Comment on above: Performed By: #### T 7, LIPA, TSH, AMADOU, CMP #### [facility] [address] [place] [address] Dr. Krystle Heaton EGFR-NON AF SIERRA LEONEAN =60 Normal >=60 [facility] Comment on above: Performed By: #### T 7, LIPA, TSH, AMADOU, CMP #### [facility] [address] [place] [address] Dr. Krystle Heaton Globulin (S) [Mass/Vol] 3.5 g/dL Normal [facility] Comment on above: Performed By: #### T 7, LIPA, TSH, AMADOU, CMP #### [facility] [address] [place] [address] Dr. Krystle Heaton Glucose [Mass/Vol] 120 mg/dL Critically high 74-106 [facility] Comment on above: Performed By: #### T 7, LIPA, TSH, AMADOU, CMP #### [facility] [address] [place] [address] Dr. Krystle Heaton Potassium [Moles/Vol] 4.2 mmol/L Normal 3.4-5.0 [facility] Comment on above: Performed By: #### T 7, LIPA, TSH, AMADOU, CMP #### [facility] [address] [place] [address] Dr. Krystle Heaton Protein [Mass/Vol] 7.4 g/dL Normal 6.1-8.2 [facility] Comment on above: Performed By: #### T 7, LIPA, TSH, AMADOU, CMP #### [facility] [address] [place] [address] Dr. Krystle Heaton Sodium [Moles/Vol] 140 mmol/L Normal 137-[address] [facility] Comment on above: Performed By: #### T 7, LIPA, TSH, AMADOU, CMP #### [facility] [address] [place] [address] Dr. Krystle Heaton Urea nitrogen [Mass/Vol] 12.0 mg/dL Normal 9.0-20.0 [facility] Comment on above: Performed By: #### T 7, LIPA, TSH, AMADOU, CMP #### [facility] [address] [place] [address] Dr. Krystle Heaton Urea nitrogen/Creatinine [Mass ratio] 9.4 mg/mg Normal [facility] Comment on above: Performed By: #### T 7, LIPA, TSH, AMADOU, CMP #### [facility] [address] [place], [place] [id number] Dr. Krystle Heaton PROTIMEon 12-09-2020 INR Coag (PPP) [Relative time] 0.96 {INR} Normal [facility] Comment on above: Performed By: #### H BSANS #### [facility] [address] [place] [address] Billy Devlin INR GUIDELINES SEE BELOW Normal [facility] Comment on above: Result Comment: MOUNA RED INR: 2.0 - 3.0 CONDITIONS NOT LISTED BELOW 2.5 - 3.5 FOR PROSTHETIC HEART VALVE REPLACEMENT 2.5 - 3.5 RECURRENT THROMBOSIS Performed By: #### H BSANS #### [facility] [address] [place] [address] Billy Devlin PT Coag (PPP) [Time] 10.5 s Normal 9.0-11.6 [facility] Comment on above: Performed By: #### H BSANS #### [facility] [address] [place], [place] [id number] Billy Devlin US SINGLE QUAD RT UPPERon [...] by: KRISTEN GODINEZ Date: 2020-12-09 10:23 Normal [facility] Vital Signs Date Time Vital Sign Value Performing Clinician Amy ling 07-14-2024 09:54-0400 Body height 177.8 cm Vivienne Velázquez MD Work Phone: [facility] 07-14-2024 09:54-0400 Body mass index (BMI) [Ratio] 27.26 kg/m2 Vivienne Velázquez MD Work Phone: [facility] 07-14-2024 09:54-0400 Body weight 86.18 kg Vivienne Velázquez MD Work Phone: [facility] 07-14-2024 09:54-0400 Diastolic blood pressure 64 mm[Hg] Vivienne Velázquez MD Work Phone: [facility] 07-14-2024 09:54-0400 Systolic blood pressure 104 mm[Hg] Vivienne Velázquez MD Work Phone: [facility] Encounters Encounter Date Encounter Type Care Provider Facility Start: 12-28-2024 End: 12-28-2024 ambulatory None Provider Facility:[facility] Start: 07-14-2024 End: 07-14-2024 Bamboo flowsheet Vivienne Velázquez MD Work Phone: [facility] Start: 07-14-2024 End: 07-14-2024 Bamboo flowsheet Vivienne Velázquez MD Work Phone: [facility] Start: 07-14-2024 End: 07-14-2024 Telephone encounter Vivienne Velázquez MD Work Phone: [facility] Start: 07-14-2024 End: 07-14-2024 Postop follow up visit related to original px Vivienne Velázquez MD Work Phone: [facility] Comment on above: ETD (Eustachian tube dysfunction), right (Primary Dx) Start: 07-14-2024 End: 07-14-2024 ambulatory VIVIENNE GAMINOMIS Not Available Start: 05-26-2024 End: 05-26-2024 ambulatory VIVIENNE Solis TIMMIS Not Available Start: 05-24-2024 End: 05-24-2024 ambulatory DARIEN WARE Not Available Start: 04-03-2022 End: 04-03-2022 ambulatory Magaly Sewell Facility:[facility] Start: 11-26-2021 End: 11-27-[address] GENEVIEVE TONG Facility:[facility] Start: 11-15-2021 End: 11-15-[address] GENEVIEVE TONG Facility:[facility] Start: 10-08-2021 End: 10-09-[address] AMADOU BROWN Facility:[facility] Start: 09-10-2021 End: 09-11-[address] AMADOU BROWN Facility:[facility] Start: 08-15-2021 End: 08-16-[address] AMADOU BROWN Facility:[facility] Start: 08-13-2021 Encounter for preprocedural laboratory examination DR DOCTOR PALUMBO [facility] Start: 08-10-2021 AUDIT No PCP None [facility] [place] [facility] Work Phone: Start: 08-02-2021 Chart Update No PCP None [facility] [place] [facility] Work Phone: Start: 07-28-2021 End: 07-29-[address] DOCTOR PALUMBO Facility:[facility] Start: 07-28-2021 End: 07-29-2021 Encounter for preprocedural laboratory examination DR DOCTOR PALUMBO Facility:[facility] Start: 07-13-2021 AUDIT No PCP None [facility] [place] [facility] Work Phone: Start: 07-09-2021 End: 07-10-[address] AMADOU BROWN Facility:[facility] Start: 06-11-2021 End: 07-11-[address] AMADOU BROWN Facility:[facility] Start: 05-28-2021 End: 06-10-[address] AMADOU BROWN Facility:[facility] Start: 05-15-2021 End: 05-16-[address] AMADOU BROWN Facility:[facility] Start: 05-01-2021 End: 05-02-[address] GENEVIEVE TONG Facility:[facility] Start: 04-13-2021 End: 05-10-[address] GENEVIEVE TONG Facility:[facility] Start: 04-10-2021 AUDIT No PCP None [facility] [facility] Work Phone: Start: 04-10-2021 Office outpatient ne w 45 minutes No PCP None [facility] [place] [facility] Work Phone: Start: 04-06-2021 End: 04-07-[address] GENEVIEVE TONG Facility:[facility] Start: 03-30-2021 End: 03-31-[address] GENEVIEVE TONG Facility:[facility] Start: 03-22-2021 End: 03-23-[address] GENEVIEVE TONG Facility:[facility] Start: 03-17-2021 End: 03-18-[address] AMADOU BROWN Facility:[facility] Start: 03-08-2021 End: 03-09-[address] AMADOU BROWN Facility:[facility] Start: 02-13-2021 End: 02-14-[address] TARAH SAM Facility:[facility] Start: 02-03-2021 End: 02-04-[address] AMADOU BROWN Facility:[facility] Start: 01-22-2021 End: 01-23-[address] GENEVIEVE TONG Facility:[facility] Start: 01-09-2021 End: 01-09-[address] GENEVIEVE TONG Facility:[facility] Start: 01-06-2021 End: 01-07-[address] AMADOU BROWN Facility:[facility] Start: 12-09-2020 End: 12-10-[address] Teresa GARZA Facility:[facility] Evaluation finding No PCP None [facility] [facility] Work Phone: Procedures Date Procedure Procedure Detail Performing Clinician Biopsy of liver No PCP None Repair of musculoten dinous cuff of shoulder No PCP None Plan of Treatment Date Care Activity Detail Author Start: 08-04-2024 End: 08-04-2024 Patient encounter procedure 08/04/2024 2:30 PM EDT Office Visit [facility] [address] [facility] [address] [place] [id number] Vivienne Velázquez MD [address] [facility] [address] [place] [address] [facility] Start: 07-28-2024 End: 07-28-2024 Patient encounter procedure 07/28/2024 10:30 AM EDT Office Visit [facility] [address] [place] [address] Vivienne Velázquez MD [address] [place] [address] [facility] Start: 07-14-2024 End: 07-14-2024 Patient encounter procedure 07/14/2024 9:50 AM EDT Office Visit [facility] [address] [place] [address] Vivienne Velázquez MD [address] [place] [address] Arrived [facility] Comment on above: Arrived Start: 07-11-2024 Influenza vaccination Influenza Vacc ine (#1) [facility] Start: 1970 Screening for malign ant neoplasm of colon [facility] Immunizations Immunization Date Immunization Notes Care Provider Fa [facility] 09-03-2023 influenza virus vacc ine, unspecified formulation Vivienne Velázquez MD Work Phone: [facility] Payers Date Payer Category Payer Unknown 2023 Unknown [id number] 1970 Unknown [id number] 2.16.84 0.1.648124.3.579.2.593 1970 Unknown [id number] .16.84 0.1.571771.3.579.2.593 1970 Unknown [id number] 2.16.84 0.1.750689.3.579.2.593 1970 Unknown [id number] .16.84 0.1.828733.3.579.2.593 1969 Unknown [id number] 2.16.84 0.1.539832.3.579.2.593 1969 Unknown [id number] 2.16.84 0.1.036651.3.579.2.593 1969 Unknown [id number] 2.16.84 0.1.438191.3.579.2.593 1969 Unknown [id number] 2.16.84 0.1.038217.3.579.2.593 1969 Unknown [id number] 2.16.84 0.1.625061.3.579.2.593 1969 Unknown [id number] 2.16.84 0.1.817050.3.579.2.593 1969 Unknown [id number] 2.16.84 0.1.343319.3.579.2.593 1969 Unknown [id number] 2.16.84 0.1.790631.3.579.2.593 1969 Unknown [id number] 2.16.84 0.1.519775.3.579.2.593 1969 Unknown [id number] 2.16.84 0.1.967676.3.579.2.593 1969 Unknown [id number] 2.16.84 0.1.233356.3.579.2.593 1969 Unknown [id number] 2.16.84 0.1.601786.3.579.2.593 1969 Unknown [id number] 2.16.84 0.1.406736.3.579.2.593 1969 Unknown [id number] 2.16.84 0.1.338658.3.579.2.593 1969 Unknown [id number] 2.16.84 0.1.959567.3.579.2.593 1969 Unknown [id number] 2.16.84 0.1.836286.3.579.2.593 1969 Unknown [id number] 2.16.84 0.1.829953.3.579.2.593 1969 Unknown [id number] 2.16.84 0.1.670376.3.579.2.593 1969 Unknown [id number] 2.16.84 0.1.893087.3.579.2.1259 1969 Unknown [id number] 2.16.84 0.1.498189.3.579.2.1259 1969 Unknown [id number] 2.16.84 0.1.847593.3.579.2.1259 1969 Unknown [id number] 2.16.8 40.1.465988.3.579.2.718 1960 Self-pay [id number] 1960 Self-pay 1960 Unknown [id number] Unknown [id number] 2.16.84 0.1.890563.3.579.2.593 Unknown [id number] 2.16.84 0.1.462512.3.579.2.593 Unknown [id number] 2.16.8 40.1.519117.3.579.2.531 Social History Date Type Detail Facility Start: 05-26-2024 End: 07-14-2024 Former smoker Former smoker [facility] [place] [address] [facility] Work Phone: Start: 1970 Sex Assigned At Male F [facility] Start: 05-26-2024 Tobacco smoking stat [facility] Ex-smoker [facility] Work Phone: History of tobacco use Current smoker [facility] History of tobacco use Cigarette Smoker [facility] Start: 05-26-2024 Tobacco use and exposure Smokeless tobacco non-user [facility] Start: 05-26-2024 End: 07-14-2024 Alcoholic beverage intake Ex-drinker (finding) [facility] Start: 05-26-2024 End: 07-14-2024 Tobacco use panel [facility] Start: 1970 Sex assigned at Not on file [facility] Telephone encounter Note 07-14-2024 Telephone Encounter - Meagan Velázquez - 07/14/2024 3:46 PM EDT Note Date & Type Note Facility 07-14-2024 Telephone encount er Note Called pt/pt verbalized understanding. [facility] Note 07-14-2024 Telephone Encounter - Meagan Velázquez - 07/14/2024 3:46 PM EDTTelephone Encounter - Vivienne Velázquez MD - 07/14/2024 3:20 PM EDTTelephone Encounter - Meagan Velázquez - 07/14/2024 3:01 PM EDT Note Date & Type Note Facility 07-14-2024 Miscellaneous Notes Formattin g of this note might be different from the original. Called pt/pt verbalized understanding. Those are usually the cheapest. Others are potentially toxic to the ears. Have pt ask his pharmacist make a suggestion based upon Chuy's insurance Pt wants to know if another kind of ear drops can be prescribed that are a lot cheaper. The rx prescribed is $95.00. documented in this encounter [facility] Telephone encounter Note 07-14-2024 Telephone Encounter - Vivienne Velázquez MD - 07/14/2024 3:20 PM EDT Note Date & Type Note Facility 07-14-2024 Telephone encount er Note Those are usually the cheapest. Others are potentially toxic to the ears. Have pt ask his pharmacist make a suggestion based upon Chuy's insurance [facility] Telephone encounter Note 07-14-2024 Telephone Encounter - Meagan Velázquez - 07/14/2024 3:01 PM EDT Note Date & Type Note Facility 07-14-2024 Telephone encount er Note Pt wants to know if another kind of ear drops can be prescribed that are a lot cheaper. The rx prescribed is $95.00. [facility] History of Present illness Narrative 07-14-2024 Vivienne Velázquez MD - 07/14/2024 9:50 AM EDT Note Date & Type Note Facility 07-14-2024 History of Presen t illness Narrative Subjective Patient ID: Chuy Chapin is a 54 y.o. male who presents for Post-op (S/p RMT 07/06/24. Pt states ear is plugged.) Family History Problem Relation Name Age of Onset Diabetes Mother Vanita Gaitan Heart disease Mother Vanita Gaitna Other (HTN) Mother Vanita Gaitan Cancer Father Alhaji Chapin Arthritis Brother Gerardo Chapin Hypertension Brother Gerardo Chapin Active Ambulatory Problems Diagnosis Date Noted Abnormal AST and ALT 05/25/2024 Acute kidney injury (CMS/HCC) 05/25/2024 Anemia due to blood loss 05/25/2024 Anxiety 05/25/2024 Conductive hearing loss, unilateral, right ear with restricted hearing on the contralateral side 05/25/2024 Diarrhea 05/25/2024 Hearing abnormally acute, right 05/17/2024 Fatty liver 05/25/2024 Hereditary hemochromatosis (CMS/HCC) 05/25/2024 High cholesterol (CMS/HCC) 05/25/2024 Hypertension (CMS/HCC) 05/25/2024 Post-traumatic osteoarthritis of right shoulder 05/25/2024 Serous otitis media 05/25/2024 Gastroenteritis 05/25/2024 Hepatic fibrosis 05/25/2024 Diverticulitis 05/25/2024 Palpitation 05/25/2024 Rotator cuff tear 05/25/2024 Sebaceous cyst 05/25/2024 Mixed conductive and sensorineural hearing loss of left ear with restricted hearing of right ear 05/26/2024 OME (otitis media with effusion), right 05/26/2024 ETD (Eustachian tube dysfunction), right 05/26/2024 Resolved Ambulatory Problems Diagnosis Date Noted No Resolved Ambulatory Problems Past Medical History: Diagnosis Date Disease of thyroid gland (CMS/HCC) 11/2023 HL (hearing loss) 11/2022 Past Surgical History: Procedure Laterality Date CT GUIDED PERCUTANEOUS BIOPSY LIVER 05/08/2021 CT GUIDED PERCUTANEOUS BIOPSY LIVER 05/08/2021 SHOULDER SURGERY US GUIDED NEEDLE LIVER BIOPSY 07/31/2021 US GUIDED NEEDLE LIVER BIOPSY 07/31/2021 Allergies Allergen Reactions Morphine Other Reaction(s): Swelling of the Eye, Unknown Current Outpatient Medications on File Prior to Visit Medication Sig Dispense Refill acamprosate (Campral) 333 MG EC tablet Take 333 mg by mouth in the morning and 333 mg in the evening and 333 mg before bedtime. carvedilol (Coreg) 6.25 MG tablet Take 6.25 mg by mouth 1 (one) time each day at the same time Crestor 5 MG tablet Take 5 mg by mouth 1 (one) time each day at the same time doxepin (SINEquan) 10 MG capsule Take 10 mg by mouth every 12 (twelve) hours hydrOXYzine HCl (Atarax) 25 MG tablet Take 25 mg by mouth every 6 (six) hours levothyroxine (Synthroid, Levoxyl) 50 MCG tablet Take 50 mcg by mouth in the morning. Take before meals. liothyronine (Cytomel) 5 MCG tablet Take 5 mcg by mouth Daily lisinopril 10 MG tablet Take 10 mg by mouth Daily melatonin 10 MG tablet Take 10 mg by mouth at bedtime mirtazapine (Remeron) 45 MG tablet Take 45 mg by mouth 1 (one) time each day at the same time risperiDONE (RisperDAL) 1 MG tablet Take 1 mg by mouth 1 (one) time each day at the same time simvastatin (Zocor) 10 MG tablet Take 10 mg by mouth 1 (one) time each day at the same time [DISCONTINUED] triamcinolone (Kenalog) 0.1 % cream Apply 0.1 application topically in the morning and 0.1 application before bedtime. No current facility-administered medications on file prior to visit. Objective Last Recorded Vitals Vitals: 07/14/24 0954 BP: 104/64 ENT Physical Exam Ear Ear comments: RT - TIP&P, dry. Crust around base of tube Assessment/Plan Diagnoses and all orders for this visit: ETD (Eustachian tube dysfunction), right Overall tube looks good. Crust may be causing sx. I will soften with floxin and debride. Audio if sx persist documented in this encounter [facility] Clinical Note 07-31-2021 Note Date [...] report Procedure performed by: Sandy Roland MD Gathering Machine Feeder(s): Dee Lopes Md Estimated Blood Loss (mL): [...] Last Updated: 02-Aug-2021 13:04 by Sandy Roland) [facility] Clinical Note 05-08-2021 Note Date & Type Note Facility 05-08-2021 Note Pre-procedure Verifi cation and Time Out: Pre-Procedure Verification and Time Out: Procedure Locationprocedure area HUDDLE - Pre-procedure Verificationcompleted TIME OUT - Final Verificationcompleted DEBRIEFcompleted General Information: Anesthesia Critical Care: Non-Anesthesia Date/Time of Procedure: 08-May-2021 11:57 Post-Procedure Diagnosis: same Procedure Name: CT Liver Biopsy Findings: grossly normal anatomy Procedure performed by: Gathering Machine Feeder(s): none Estimated Blood Loss (mL): none Specimen: [...] Last Updated: 08-May-2021 11:58 by Uri Bacon) [facility] Evaluation note Note Date & Type Note Facility Evaluation note [facility]: Evaluation note Note Date & Type Note Facility Evaluation note Diagnosis ETD (Eustachian tube dysfunction), right- Primary documented in this encounter [facility] History of Present illness Narrative Note Date [...] no lower extremity edema.Symptom History:Modifying Factors:Associated Symptoms: [facility] Work Phone: Chief Complaint [...] section and content) DATE CREATED AUTHOR 04/14/2021 [facility] DATE CREATED AUTHOR AUTHOR'S ORGANIZ ATION 05/15/2021 [facility] DATE CREATED AUTHOR AUTHOR'S ORGANIZ ATION 11/29/2021 [facility] DATE CREATED AUTHOR AUTHOR'S ORGANIZ ATION 04/15/2022 [facility] DATE CREATED AUTHOR AUTHOR'S ORGANIZ ATION 01/28/[address] [facility] DATE CREATED AUTHOR AUTHOR'S ORGANIZ ATION 05/24/2023 [facility] DATE CREATED AUTHOR AUTHOR'S ORGANIZ ATION 07/15/2024 [facility] DATE CREATED AUTHOR AUTHOR'S ORGANIZ ATION 12/29/2024 [facility] l Goals (unrecognized section and content) Goals may be documented in a n alternate section Care Teams (unrecognized sec tion and content) [facility] [employer] [facility] Specialty Start Date End Date Genevieve Tong MD [address] [place] [phone] PCP - General Family Medicine 05/24/24 [facility] [employer] Specialty Start Date End Date Genevieve Tong MD [address] [place] [phone] PCP - General Family Medicine 05/24/24 [facility] [employer] Relationship Specialty Start Date End Date Genevieve Tong MD [address] [place] [address] [phone] PCP - General Family Medicine 05/24/24 Reason for Visit (unrecogniz ed section and content) Reason Comments Post-op S/p RMT 07/06/24. Pt states ear is plugged. FOR RECORDS PERTAINING TO PATIENTS WHO ARE [...] BE BASED ON THE PRIMARY CLINICAL RECORDS. [facility]. provides no warranty or guarantee of the accuracy or completeness of information in this document.
--- NOTE | 2024-12-31 13:08 | XR_ITS ---
[place] [id number] Patient Name: ANGIE FRITZ MRN: [id number] date: 1970 Sex: M Assigned Patient Location: LAB Current Patient Location: LAB Accession/Order Number: [id number] Exam Date: 12/31/2024 13:50 Report Date: 12/31/2024 13:50 At the request of: GENEVIEVE ARREOLA MD Procedure: XR chest 2V XR chest 2V 12/31/2024 1:17 PM SIGNS AND SYMPTOMS: Wheezing, bronchitis PROTOCOL: Frontal and lateral radiographs of the chest COMPARISON: None FINDINGS: The trachea is midline. The heart and mediastinal structures are within normal limits. The lung parenchyma is clear. The bony thorax is intact. XR/XR chest 2V IMPRESSION: No acute cardiopulmonary pathology. Impression dictated by: Ras Lucero M.D.12/31/2024 1:50 PM Dictation Location: [place] [address] Electronically authenticated by: [id number] Y Date: 12/31/2024 13:50
[2024-12-31 13:25] LABS: Basophils Percent Auto 0.2 % (0.2-2.0); Hematocrit 43.7 % (42.0-54.0); Hemoglobin 14.9 g/dL (14.0-18.0); Immature Granulocytes Abs Auto 0.03 10^3/uL (0.00-0.03); Immature Granulocytes Pct Auto 0.5 % (0.0-0.5); Lymphocytes Absolute Auto 0.8 10^3/uL (1.2-3.8); Lymphocytes Percent Auto 13.8 % (20.5-60.0); Mean Corpuscular HGB Conc 34.1 g/dL (29.9-35.2); Mean Corpuscular Hemoglobin 31.8 pg (25.9-34.0); Mean Corpuscular Volume 93.4 fL (80.0-94.0); Mean Platelet Volume 11.9 fL (9.5-13.5); Monocytes Absolute Auto 0.1 10^3/uL (0.3-0.8); Monocytes Percent Auto 0.9 % (1.7-12.0); Neutrophils Absolute Auto 4.9 10^3/uL (1.4-6.5); Neutrophils Percent Auto 84.6 % (43.0-75.0); Platelet Count 92 10^3/uL (150-450); Red Blood Count 4.68 10^6/uL (4.70-6.10); Red Cell Distribution Width 13.5 % (11.0-15.0); White Blood Count 5.8 10^3/uL (4.0-11.0)
[2024-12-31 13:42] LABS: Alanine Aminotransferase 22 U/L (16-63); Albumin Globulin Ratio 0.9; Albumin Level 3.5 g/dL (3.4-5.0); Alkaline Phosphatase 82 U/L (46-116); Anion Gap 11.6; Aspartate Amino Transferase 28 U/L (15-37); BUN Creatinine Ratio 13.7; Bilirubin Total 1.1 mg/dL (0.2-1.0); Calcium 8.8 mg/dL (8.5-10.1); Carbon Dioxide 27.2 mmol/L (21.0-32.0); Chloride 105 mmol/L (98-107); Estimated GFR (African America >60 (>=60 mL/min/1.73m^2); Estimated GFR (Non-African Ame >60 (>=60 mL/min/1.73m^2); Globulin 3.9 g/dL; Glucose 199 mg/dL (74-106); Potassium 4.8 mmol/L (3.5-5.1); Sodium 139 mmol/L (136-145); Total Protein 7.4 g/dL (6.4-8.2)
== END 2024-12-31 12:36 | disposition home or self-care (01) ==
LOC: LAB 12:41
PROVIDERS: PCP Family Medicine; Visit Provider Family Medicine
DX: J20.9 Acute bronchitis, unspecified (principal); I50.30 Unspecified diastolic (congestive) heart failure; I11.0 Hypertensive heart disease with heart failure
CPT/HCPCS: 36415; 71046; 80053; 83880; 85025

== ENCOUNTER 2025-01-02 10:35 | Outpatient (OUT) | payer MEDICARE, SELFPAY ==
--- OUTSIDE RECORDS SUMMARY | 2025-01-02 10:38 | XMS_ITS | CCD ---
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 Attending Unavailable Gideon Mace V. Admitting Unavailable Allergies Allergy Classification Reported Allergen(s) Allergy Type Date of Onset Reaction(s) Facility (2 sources) Morphine Drug Allergy 2 Swelling of the [facility] Repository (1 source) Morphine Drug Allergy 2 [facility] Repository (4 sources) Morphine Drug Allergy 2 [facility] Healthcare Medications Current Medications Medication Drug Class(es) [...] Range Facility Outside Recordson 12-28-2024 Outside Records [id number] on 12-28-2024 Rad - Other Radiology Report [id number]#1.00[facility] - [facility] Rad[facility] Report [id number][facility] Testingon 01-29-20 23 In office Testing [id number]#[id number]:127 Normal [facility] AMYLASEon 11-26-2021 Amylase [Catalytic activity/Vol] 53 U/L Normal 31-110 [facility] Comment on above: Performed By: #### T 7, LIPA, TSH, AMADOU, CMP #### [facility] [address] [place] [address] Dr. Krystle Heaton CBC AUTO DIFFon 11-26-2021 BASO # 0.0 103/ul Normal 0.0-0.1 [facility] Comment on above: Performed By: #### F ERR #### [facility] [address] [place] [address] Dr. Krystle Heaton Basophils/100 WBC (Bld) 0.6 % Normal 0.2-2.0 [facility] Comment on above: Performed By: #### F ERR #### [facility] [address] [place] [address] Dr. Krystle Heaton EO # 0.1 103/ul Normal 0.0-0.7 [facility] Comment on above: Performed By: #### F ERR #### [facility] [address] [place] [address] Dr. Krystle Heaton Eosinophils/100 WBC (Bld) 2.7 % Normal 0.9-7.0 [facility] Comment on above: Performed By: #### F ERR #### [facility] [address] [place] [address] Dr. Krystle Heaton Erythrocyte distribution width (RBC) [Ratio] 16.0 % Critically high 11.0-15.0 [facility] Comment on above: Performed By: #### F ERR #### [facility] [address] [place] [address] Dr. Krystle Heaton Hematocrit (Bld) [Volume fraction] 42.8 % Normal 42.0-54.0 [facility] Comment on above: Performed By: #### F ERR #### [facility] [address] [place] [address] Dr. Krystle Heaton Hemoglobin (Bld) [Mass/Vol] 13.0 g/dL Critically low 14.0-18.0 [facility] Comment on above: Performed By: #### F ERR #### [facility] [address] [place] [address] Dr. Krystle Heaton IG # 0.02 10e3/ul Normal 0.00-0.03 [facility] Comment on above: Performed By: #### F ERR #### [facility] [address] [place] [address] Dr. Krystle Heaton IG % 0.4 % Normal 0.0-0.5 [facility] Comment on above: Performed By: #### F ERR #### [facility] [address] [place] [address] Dr. Krystle Heaton LYMPH # 0.9 103/ul Critically low 1.2-3.8 [facility] Comment on above: Performed By: #### F ERR #### [facility] [address] [place] [address] Dr. Krystle Heaton Lymphocytes/100 WBC (Bld) 19.1 % Critically low 20.5-60.0 [facility] Comment on above: Performed By: #### F ERR #### [facility] [address] [place] [address] Dr. Krystle Heaton MANUAL DIFF REQ NO Normal [facility] Comment on above: Performed By: #### F ERR #### [facility] [address] [place] [address] Dr. Krystle Heaton MCH (RBC) [Entitic mass] 27.7 pg Normal 25.9-34.0 [facility] Comment on above: Performed By: #### F ERR #### [facility] [address] [place] [address] Dr. Krystle Heaton MCHC (RBC) [Mass/Vol] 30.4 g/dL Normal 29.9-35.2 [facility] Comment on above: Performed By: #### F ERR #### [facility] [address] [place] [address] Dr. Krystle Heaton MCV (RBC) [Entitic vol] 91.1 fL Normal 80.0-94.0 [facility] Comment on above: Performed By: #### F ERR #### [facility] [address] [place] [address] Dr. Krystle Heaton MONO # 0.5 103/ul Normal 0.3-0.8 [facility] Comment on above: Performed By: #### F ERR #### [facility] [address] [place] [address] Dr. Krystle Heaton Monocytes/100 WBC (Bld) 10.4 % Normal 1.7-12.0 [facility] Comment on above: Performed By: #### F ERR #### [facility] [address] [place] [address] Dr. Krystle Heaton NEUT # 3.2 103/ul Normal 1.4-6.5 [facility] Comment on above: Performed By: #### F ERR #### [facility] [address] [place] [address] Dr. Krystle Heaton Neutrophils/100 WBC (Bld) 66.8 % Normal 43.0-75.0 [facility] Comment on above: Performed By: #### F ERR #### [facility] [address] [place] [address] Dr. Krystle Heaton Platelet mean volume (Bld) [Entitic vol] 11.3 fL Normal 9.5-13.5 [facility] Comment on above: Performed By: #### F ERR #### [facility] [address] [place] [address] Dr. Krystle Heaton PLT 177 103/ul Normal 150-450 [facility] Comment on above: Performed By: #### F ERR #### [facility] [address] [place] [address] Dr. Krystle Heaton RBC 4.70 106/ul Normal 4.70-6.10 [facility] Comment on above: Performed By: #### F ERR #### [facility] [address] [place] [address] Dr. Krystle Heaton WBC 4.8 103/ul Normal 4.0-11.0 [facility] Comment on above: Performed By: #### F ERR #### [facility] [address] [place] [address] Dr. Krystle Heaton FERRITINon 11-26-2021 Ferritin [Mass/Vol] 63.0 ng/mL Normal 17.9-464.0 [facility] Comment on above: Performed By: #### C BC #### [facility] [address] [place] [address] Billy Deanen FREE THYROXINE INDEX T7on FTI 2.14 Normal [facility] Comment on above: Performed By: #### T 7, LIPA, TSH, AMADOU, CMP #### [facility] [address] [place] [address] Dr. Krystle Heaton T3U 34.0 % Normal 23.5-40.5 [facility] Comment on above: Performed By: #### T 7, LIPA, TSH, AMADOU, CMP #### [facility] [address] [place] [address] Dr. Krystle Heaton T4 [Mass/Vol] 6.30 ug/dL Normal 5.53-11.[address] [facility] Comment on above: Performed By: #### T 7, LIPA, TSH, AMADOU, CMP #### [facility] [address] [place] [address] Dr. Krystle Heaton LIPASEon 11-26-2021 Lipase [Catalytic activity/Vol] 115.0 U/L Normal 23.0-300.0 [facility] Comment on above: Performed By: #### T 7, LIPA, TSH, AMADOU, CMP #### [facility] [address] [place] [address] Dr. Krystle Heaton PROF 14(COMP METB)on 022 Albumin [Mass/Vol] 3.6 g/dL Normal 3.5-5.0 [facility] Comment on above: Performed By: #### T 7, LIPA, TSH, AMADOU, CMP #### [facility] [address] [place] [address] Dr. Krystle Heaton Albumin/Globulin [Mass ratio] 0.9 {ratio} Normal [facility] Comment on above: Performed By: #### T 7, LIPA, TSH, AMADOU, CMP #### [facility] [address] [place] [address] Dr. Krystle Heaton ALP [Catalytic activity/Vol] 94 U/L Normal 38-126 [facility] Comment on above: Performed By: #### T 7, LIPA, TSH, AMADOU, CMP #### [facility] [address] [place] [address] Dr. Krystle Heaton ALT [Catalytic activity/Vol] 103 U/L Critically high 21-72 [facility] Comment on above: Performed By: #### T 7, LIPA, TSH, AMADOU, CMP #### [facility] [address] [place] [address] Dr. Krystle Heaton Anion gap [Moles/Vol] 12.8 mmol/L Normal [facility] Comment on above: Performed By: #### T 7, LIPA, TSH, AMADOU, CMP #### [facility] [address] [place] [address] Dr. Krystle Heaton AST [Catalytic activity/Vol] 148 U/L Critically high 17-59 [facility] Comment on above: Performed By: #### T 7, LIPA, TSH, AMADOU, CMP #### [facility] [address] [place] [address] Dr. Krystle Heaton Bilirubin [Mass/Vol] 1.2 mg/dL Normal 0.2-1.3 [facility] Comment on above: Performed By: #### T 7, LIPA, TSH, AMADOU, CMP #### [facility] [address] [place] [address] Dr. Krystle Heaton Calcium [Mass/Vol] 9.1 mg/dL Normal 8.4-10.2 [facility] Comment on above: Performed By: #### T 7, LIPA, TSH, AMADOU, CMP #### [facility] [address] [place] [address] Dr. Krystle Heaton Chloride [Moles/Vol] 100 mmol/L Normal 98-107 [facility] Comment on above: Performed By: #### T 7, LIPA, TSH, AMADOU, CMP #### [facility] [address] [place] [address] Dr. Krystle Heaton CO2 [Moles/Vol] 26.7 mmol/L Normal 22.0-30.0 [facility] Comment on above: Performed By: #### T 7, LIPA, TSH, AMADOU, CMP #### [facility] [address] [place] [address] Dr. Krystle Heaton Creatinine [Mass/Vol] 0.94 mg/dL Normal 0.66-1.25 [facility] Comment on above: Performed By: #### T 7, LIPA, TSH, AMADOU, CMP #### [facility] [address] [place] [address] Dr. Krystle Heaton EGFR-AF JORDANIAN >60 Normal >=60 [facility] Comment on above: Performed By: #### T 7, LIPA, TSH, AMADOU, CMP #### [facility] [address] [place] [address] Dr. Krystle Heaton EGFR-NON AF JORDANIAN >60 Normal >=60 [facility] Comment on above: Performed By: #### T 7, LIPA, TSH, AMADOU, CMP #### [facility] [address] [place] [address] Dr. Krystle Heaton Globulin (S) [Mass/Vol] 4.0 g/dL Normal [facility] Comment on above: Performed By: #### T 7, LIPA, TSH, AMADOU, CMP #### [facility] [address] [address] [address] Krystle Heaton Glucose [Mass/Vol] 112 mg/dL Critically high 74-106 [facility] [place] Comment on above: Performed By: #### T 7, LIPA, TSH, AMADOU, CMP #### [facility] [address] [place] [address] Dr. Krystle Heaton Potassium [Moles/Vol] 4.5 mmol/L Normal 3.4-5.0 [facility] Comment on above: Performed By: #### T 7, LIPA, TSH, AMADOU, CMP #### [facility] [address] [place] [address] Dr. Krystle Heaton Protein [Mass/Vol] 7.6 g/dL Normal 6.1-8.2 [facility] Comment on above: Performed By: #### T 7, LIPA, TSH, AMADOU, CMP #### [facility] [address] [place] [address] Dr. Krystle Heaton Sodium [Moles/Vol] 135 mmol/L Critically low 137-145 [facility] Comment on above: Performed By: #### T 7, LIPA, TSH, AMADOU, CMP #### [facility] [address] [place] [address] Dr. Krystle Heaton Urea nitrogen [Mass/Vol] 5.0 mg/dL Critically low 9.0-20.0 [facility] Comment on above: Performed By: #### T 7, LIPA, TSH, AMADOU, CMP #### [facility] [address] [place] [address] Dr. Krystle Heaton Urea nitrogen/Creatinine [Mass ratio] 5.3 mg/mg Normal [facility] Comment on above: Performed By: #### T 7, LIPA, TSH, AMADOU, CMP #### [facility] [address] [place] [address] Dr. Krystle Heaton TSHon 11-26-2021 TSH 1.842 uIU/mL Normal 0.470-4.680 [facility] Comment on above: Performed By: #### T 7, LIPA, TSH, AMADOU, CMP #### [facility] [address] [place] [address] Dr. Krystle Heaton TSH RANGE SEE BELOW Normal [facility] Comment on above: Result Comment: <0.3 4 UIU/ml HYPERTHYROID 0.34-5.60 UIU/ml EUTHYROID >5.60 UIU/ml HYPOTHYROID Performed By: #### T 7, LIPA, TSH, AMADOU, CMP #### [facility] [address] [address] [address] Krystle Heaton Covid-19 PCR ([facility])on SARS-CoV-2 (COVID-19) RNA JIMBO+probe Ql (Unsp spec) Not detected Normal NOT DETECTED [facility] Comment on above: Result Comment: This test is not yet approved or cleared by the [place] FDA. When there are no FDA-approved or cleared tests available, and other criteria are met, FDA can make tests available under an emergency access mechanism called an Emergency Use Authorization (EUA). The EUA for this test is supported by the [place] of Health and Human Service's (HHS's) declaration [...] By: #### F ERR #### [facility] [address] [place] [address] Dr. Krystle Heaton CBC AUTO DIFFon 10-08-2021 BASO # 0.0 103/ul Normal 0.0-0.1 [facility] Comment on above: Performed By: #### T 7, LIPA, TSH, AMADOU, CMP #### [facility] [address] [place] [address] Dr. Krystle Heaton Basophils/100 WBC (Bld) 0.7 % Normal 0.2-2.0 [facility] Comment on above: Performed By: #### T 7, LIPA, TSH, AMADOU, CMP #### [facility] [address] [place] [address] Dr. Krystle Heaton EO # 0.2 103/ul Normal 0.0-0.7 [facility] Comment on above: Performed By: #### T 7, LIPA, TSH, AMADOU, CMP #### [facility] [address] [place] [address] Dr. Krystle Heaton Eosinophils/100 WBC (Bld) 3.6 % Normal 0.9-7.0 [facility] Comment on above: Performed By: #### T 7, LIPA, TSH, AMADOU, CMP #### [facility] [address] [place] [address] Dr. Krystle Heaton Erythrocyte distribution width (RBC) [Ratio] 16.0 % Critically high 11.0-15.0 [facility] Comment on above: Performed By: #### T 7, LIPA, TSH, AMADOU, CMP #### [facility] [address] [place] [address] Dr. Krystle Heaton Hematocrit (Bld) [Volume fraction] 38.7 % Critically low 42.0-54.0 [facility] Comment on above: Performed By: #### T 7, LIPA, TSH, AMADOU, CMP #### [facility] [address] [place] [address] Dr. Krystle Heaton Hemoglobin (Bld) [Mass/Vol] 11.7 g/dL Critically low 14.0-18.0 [facility] Comment on above: Performed By: #### T 7, LIPA, TSH, AMADOU, CMP #### [facility] [address] [place] [address] Dr. Krystle Heaton IG # 0.01 10e3/ul Normal 0.00-0.03 [facility] Comment on above: Performed By: #### T 7, LIPA, TSH, AMADOU, CMP #### [facility] [address] [place] [address] Dr. Krystle Heaton IG % 0.2 % Normal 0.0-0.5 [facility] Comment on above: Performed By: #### T 7, LIPA, TSH, AMADOU, CMP #### [facility] [address] [place] [address] Dr. Krystle Heaton LYMPH # 1.6 103/ul Normal 1.2-3.8 [facility] Comment on above: Performed By: #### T 7, LIPA, TSH, AMADOU, CMP #### [facility] [address] [place] [address] Dr. Krystle Heaton Lymphocytes/100 WBC (Bld) 29.2 % Normal 20.5-60.0 [facility] Comment on above: Performed By: #### T 7, LIPA, TSH, AMADOU, CMP #### [facility] [address] [place] [address] Dr. Krystle Heaton MANUAL DIFF REQ NO Normal [facility] Comment on above: Performed By: #### T 7, LIPA, TSH, AMADOU, CMP #### [facility] [address] [place] [address] Dr. Krystle Heaton MCH (RBC) [Entitic mass] 27.7 pg Normal 25.9-34.0 [facility] Comment on above: Performed By: #### T 7, LIPA, TSH, AMADOU, CMP #### [facility] [address] [place] [address] Dr. Krystle Heaton MCHC (RBC) [Mass/Vol] 30.2 g/dL Normal 29.9-35.2 [facility] Comment on above: Performed By: #### T 7, LIPA, TSH, AMADOU, CMP #### [facility] [address] [place] [address] Dr. Krystle Heaton MCV (RBC) [Entitic vol] 91.5 fL Normal 80.0-94.0 [facility] Comment on above: Performed By: #### T 7, LIPA, TSH, AMADOU, CMP #### [facility] [address] [place] [address] Dr. Krystle Heaton MONO # 0.6 103/ul Normal 0.3-0.8 [facility] Comment on above: Performed By: #### T 7, LIPA, TSH, AMADOU, CMP #### [facility] [address] [place] [address] Dr. Krystle Heaton Monocytes/100 WBC (Bld) 10.5 % Normal 1.7-12.0 [facility] Comment on above: Performed By: #### T 7, LIPA, TSH, AMADOU, CMP #### [facility] [address] [place] [address] Dr. Krystle Heaton NEUT # 3.1 103/ul Normal 1.4-6.5 [facility] Comment on above: Performed By: #### T 7, LIPA, TSH, AMADOU, CMP #### [facility] [address] [place] [address] Dr. Krystle Heaton Neutrophils/100 WBC (Bld) 55.8 % Normal 43.0-75.0 [facility] Comment on above: Performed By: #### T 7, LIPA, TSH, AMADOU, CMP #### [facility] [address] [place] [address] Dr. Krystle Heaton Platelet mean volume (Bld) [Entitic vol] 10.9 fL Normal 9.5-13.5 [facility] Comment on above: Performed By: #### T 7, LIPA, TSH, AMADOU, CMP #### [facility] [address] [place] [address] Dr. Krystle Heaton PLT 214 103/ul Normal 150-450 [facility] Comment on above: Performed By: #### T 7, LIPA, TSH, AMADOU, CMP #### [facility] [address] [place] [address] Dr. Krystle Heaton RBC 4.23 106/ul Critically low 4.70-6.10 [facility] Comment on above: Performed By: #### T 7, LIPA, TSH, AMADOU, CMP #### [facility] [address] [place] [address] Dr. Krystle Heaton WBC 5.5 103/ul Normal 4.0-11.0 [facility] Comment on above: Performed By: #### T 7, LIPA, TSH, AMADOU, CMP #### [facility] [address] [place] [address] Dr. Krystle Heaton FERRITINon 10-08-2021 Ferritin [Mass/Vol] 59.0 ng/mL Normal 17.9-464.0 [facility] Comment on above: Performed By: #### T 7, LIPA, TSH, AMADOU, CMP #### [facility] [address] [place] [address] Dr. Krystle Heaton CBC AUTO DIFFon 09-10-2021 BASO # 0.0 103/ul Normal 0.0-0.1 [facility] Comment on above: Performed By: #### C BC #### [facility] [address] [place] [address] Billy Quita Basophils/100 WBC (Bld) 0.8 % Normal 0.2-2.0 [facility] Comment on above: Performed By: #### C BC #### [facility] [address] [place] [address] Billy Quita EO # 0.1 103/ul Normal 0.0-0.7 [facility] Comment on above: Performed By: #### C BC #### [facility] [address] [place] [address] Billy Quita Eosinophils/100 WBC (Bld) 3.5 % Normal 0.9-7.0 [facility] Comment on above: Performed By: #### C BC #### [facility] [address] [place] [address] Billy Quita Erythrocyte distribution width (RBC) [Ratio] 16.7 % Critically high 11.0-15.0 [facility] Comment on above: Performed By: #### C BC #### [facility] [address] [place] [address] Billy Quita Hematocrit (Bld) [Volume fraction] 40.6 % Critically low 42.0-54.0 [facility] Comment on above: Performed By: #### C BC #### [facility] [address] [id number] Billy Quita Hemoglobin (Bld) [Mass/Vol] 12.4 g/dL Critically low 14.0-18.0 [facility] Comment on above: Performed By: #### C BC #### [facility] [address] [phone] Billy Quita IG # 0.01 10e3/ul Normal 0.00-0.03 [facility] Comment on above: Performed By: #### C BC #### [facility] [address] [place], [place] [id number] Billy Quita IG % 0.3 % Normal 0.0-0.5 [facility] Comment on above: Performed By: #### C BC #### [facility] [address] [place] [address] Billy Quita LYMPH # 1.5 103/ul Normal 1.2-3.8 [facility] Comment on above: Performed By: #### C BC #### [facility] [address] [place] [address] Billy Quita Lymphocytes/100 WBC (Bld) 39.7 % Normal 20.5-60.0 [facility] Comment on above: Performed By: #### C BC #### [facility] [address] [place], [place] [phone] Billycarrillo Devlin MANUAL DIFF REQ NO Normal [facility] Comment on above: Performed By: #### C BC #### [facility] [address] [place], [place] [phone] Billy Quita MCH (RBC) [Entitic mass] 27.6 pg Normal 25.9-34.0 [facility] Comment on above: Performed By: #### C BC #### [facility] [address] [place], [place] [id number] Billy Quita MCHC (RBC) [Mass/Vol] 30.5 g/dL Normal 29.9-35.2 [facility] Comment on above: Performed By: #### C BC #### [facility] [address], [place] [address] Billy Quita MCV (RBC) [Entitic vol] 90.2 fL Normal 80.0-94.0 [facility] Comment on above: Performed By: #### C BC #### [facility] [address], [place] [address] Billycarrillo Deanen MONO # 0.5 103/ul Normal 0.3-0.8 [facility] Comment on above: Performed By: #### C BC #### [facility] [address] [phone] Billy Quita Monocytes/100 WBC (Bld) 13.3 % Critically high 1.7-12.0 [facility] Comment on above: Performed By: #### C BC #### [facility] [address] [phone] Billy Quita NEUT # 1.6 103/ul Normal 1.4-6.5 [facility] Comment on above: Performed By: #### C BC #### [facility] [address] [phone] Billycarrillo Deanen Neutrophils/100 WBC (Bld) 42.4 % Critically low 43.0-75.0 [facility] Comment on above: Performed By: #### C BC #### [facility] [address] [phone] Billycarrillo Devlin Platelet mean volume (Bld) [Entitic vol] 11.5 fL Normal 9.5-13.5 [facility] Comment on above: Performed By: #### C BC #### [facility] [address], [place] [address] Billy Quita PLT 136 103/ul Critically low 150-450 [facility] Comment on above: Performed By: #### C BC #### [facility] [address], [place] [address] Billy Quita RBC 4.50 106/ul Critically low 4.70-6.10 [facility] Comment on above: Performed By: #### C BC #### [facility] [address] [phone] Billy Quita WBC 3.7 103/ul Critically low 4.0-11.0 [facility] Comment on above: Performed By: #### C BC #### [facility] [address] [place] [address] Billy Devlin FERRITINon 09-10-2021 Ferritin [Mass/Vol] 106.0 ng/mL Normal 17.9-464.0 [facility] Comment on above: Performed By: #### F ERR #### [facility] [address] [place] [address] Dr. Krystle Heaton CBC AUTO DIFFon 08-15-2021 BASO # 0.0 103/ul Normal 0.0-0.1 [facility] Comment on above: Performed By: #### C BC #### [facility] [address] [place] [address] Dr. Krystle Heaton Basophils/100 WBC (Bld) 0.8 % Normal 0.2-2.0 [facility] Comment on above: Performed By: #### C BC #### [facility] [address] [place] [address] Dr. Krystle Heaton EO # 0.2 103/ul Normal 0.0-0.7 [facility] Comment on above: Performed By: #### C BC #### [facility] [address] [place] [address] Dr. Krystle Heaton Eosinophils/100 WBC (Bld) 4.4 % Normal 0.9-7.0 [facility] Comment on above: Performed By: #### C BC #### [facility] [address] [place] [address] Dr. Krystle Heaton Erythrocyte distribution width (RBC) [Ratio] 15.7 % Critically high 11.0-15.0 [facility] Comment on above: Performed By: #### C BC #### [facility] [address] [place] [address] Dr. Krystle Heaton Hematocrit (Bld) [Volume fraction] 39.4 % Critically low 42.0-54.0 [facility] Comment on above: Performed By: #### C BC #### [facility] [address] [place] [address] Dr. Krystle Heaton Hemoglobin (Bld) [Mass/Vol] 12.2 g/dL Critically low 14.0-18.0 [facility] Comment on above: Performed By: #### C BC #### [facility] [address] [place] [address] Dr. Krystle Heaton IG # 0.01 10e3/ul Normal 0.00-0.03 [facility] Comment on above: Performed By: #### C BC #### [facility] [address] [place] [address] Dr. Krystle Heaton IG % 0.2 % Normal [facility]0-[facility]5 [facility] Comment on above: Performed By: #### C BC #### [facility] [address] [place] [address] Dr. Krystle Heaton LYMPH # 1.5 103/ul Normal 1.2-3.8 [facility] Comment on above: Performed By: #### C BC #### [facility] [address] [place] [address] Dr. Krystle Heaton Lymphocytes/100 WBC (Bld) 32.2 % Normal 20.5-60.0 [facility] Comment on above: Performed By: #### C BC #### [facility] [address] [place] [address] Dr. Krystle Heaton MANUAL DIFF REQ NO Normal [facility] Comment on above: Performed By: #### C BC #### [facility] [address] [place] [address] Dr. Krystle Heaton MCH (RBC) [Entitic mass] 27.4 pg Normal 25.9-34.0 [facility] Comment on above: Performed By: #### C BC #### [facility] [address] [place] [address] Dr. Krystle Heaton MCHC (RBC) [Mass/Vol] 31.0 g/dL Normal 29.9-35.2 [facility] Comment on above: Performed By: #### C BC #### [facility] [address] [place] [address] Dr. Krystle Heaton MCV (RBC) [Entitic vol] 88.5 fL Normal 80.0-94.0 [facility] Comment on above: Performed By: #### C BC #### [facility] [address] [place] [address] Dr. Krystle Heaton MONO # 0.6 103/ul Normal 0.3-0.8 [facility] Comment on above: Performed By: #### C BC #### [facility] [address] [place] [address] Dr. Krystel Heaton Monocytes/100 WBC (Bld) 11.7 % Normal 1.7-12.0 [facility] Comment on above: Performed By: #### C BC #### [facility] [address] [place] [address] Dr. Krystle Heaton NEUT # 2.4 103/ul Normal 1.4-6.5 [facility] Comment on above: Performed By: #### C BC #### [facility] [address] [place] [address] Dr. Krystle Heaton Neutrophils/100 WBC (Bld) 50.7 % Normal 43.0-75.0 [facility] Comment on above: Performed By: #### C BC #### [facility] [address] [place] [address] Dr. Krystle Heaton Platelet mean volume (Bld) [Entitic vol] 11.4 fL Normal 9.5-13.5 [facility] Comment on above: Performed By: #### C BC #### [facility] [address] [place] [address] Dr. Krystle Heaton PLT 169 103/ul Normal 150-450 [facility] Comment on above: Performed By: #### C BC #### [facility] [address] [place] [address] Dr. Krystle Heaton RBC 4.45 106/ul Critically low 4.70-6.10 [facility] Comment on above: Performed By: #### C BC #### [facility] [address] [place] [address] Dr. Krystle Heaton WBC 4.8 103/ul Normal 4.0-11.0 [facility] Comment on above: Performed By: #### C BC #### [facility] [address], [place] [address] Dr. Krystle Heaton FERRITINon 08-15-2021 Ferritin [Mass/Vol] 103.0 ng/mL Normal 17.9-464.0 [facility] Comment on above: Performed By: #### T 7, LIPA, TSH, AMADOU, CMP #### [facility] [address], [place] [address] Dr. Krystle Heaton No Panel Informationon 07-31 Name CHUY CHAPIN Pathologist: COLLETTE DOTSON MD Date of Procedure: 07/31/2021 Date Received: [address] Work Phone: Radiologyon 07-31-2021 US Guidance for fine needle aspiration of Liver Normal [facility] Work Phone: [facility] Surgical Pathology Depar tmenton 07-31-2021 [facility] Surgical Pathology Department Name CHUY CHAPIN Pathologist: [...] toto in 2 cassettes A1 and A2. [facility]/07/31/2021 The assays/tests were performed with appropriate positive and negative controls which stained appropriately. [facility] Department of Pathology [address] [place] [address] Normal [facility] Comment on above: Performed By: #### [facility] #### [facility] Surgical Pathology Department [address] [place] [address] US BIOPSY LIVER PERon 2020 US BIOPSY LIVER PER Patient Name: CHUY CHAPIN STUDY: US BIOPSY LIVER PER; 07/31/2021 1:03 pm PROCEDURE: ULTRASOUND GUIDED NON TARGETED RANDOM BIOPSY OF THE LIVER INDICATION: Hemochromatosis; here for tissue diagnosis COMPARISON: CT-guided liver biopsy 05/08/2021. ACCESSION NUMBER(S): [id number] ORDERING CLINICIAN: ENOCH HERRMANN REINFORCING IRON WORKER HELPER: Dr. Roland (attending) Dee Lopes MD MEDICATIONS: [...] as stated. This study was interpreted at [place], [place]. Electronically signed by: SANDY ROLAND MD [facility] CBC AUTO DIFFon 07-28-2021 BASO # 0.0 103/ul Normal 0.0-0.1 [facility] Comment on above: Performed By: #### T 7, LIPA, TSH, AMADOU, CMP #### [facility] [address] [place] [address] Dr. Krystle Heaton Basophils/100 WBC (Bld) 0.6 % Normal 0.2-2.0 [facility] Comment on above: Performed By: #### T 7, LIPA, TSH, AMADOU, CMP #### [facility] [address] [place] [address] Dr. Krystle Heaton EO # 0.2 103/ul Normal 0.0-0.7 [facility] Comment on above: Performed By: #### T 7, LIPA, TSH, AMADOU, CMP #### [facility] [address] [place] [address] Dr. Krystle Heaton Eosinophils/100 WBC (Bld) 3.6 % Normal 0.9-7.0 [facility] Comment on above: Performed By: #### T 7, LIPA, TSH, AMADOU, CMP #### [facility] [address] [place] [address] Dr. Krystle Heaton Erythrocyte distribution width (RBC) [Ratio] 14.7 % Normal 11.0-15.0 [facility] Comment on above: Performed By: #### T 7, LIPA, TSH, AMADOU, CMP #### [facility] [address] [place] [address] Dr. Krystel Heaton Hematocrit (Bld) [Volume fraction] 37.4 % Critically low 42.0-54.0 [facility] Comment on above: Performed By: #### T 7, LIPA, TSH, AMADOU, CMP #### [facility] [address] [place] [address] Dr. Krystle Heaton Hemoglobin (Bld) [Mass/Vol] 11.5 g/dL Critically low 14.0-18.0 [facility] Comment on above: Performed By: #### T 7, LIPA, TSH, AMADOU, CMP #### [facility] [address] [place] [address] Dr. Krystle Heaton IG # 0.02 10e3/ul Normal 0.00-0.03 [facility] Comment on above: Performed By: #### T 7, LIPA, TSH, AMADOU, CMP #### [facility] [address] [place] [address] Dr. Krystle Heaton IG % 0.4 % Normal 0.0-0.5 [facility] Comment on above: Performed By: #### T 7, LIPA, TSH, AMADOU, CMP #### [facility] [address] [place] [address] Dr. Krystle Heaton LYMPH # 1.5 103/ul Normal 1.2-3.8 [facility] Comment on above: Performed By: #### T 7, LIPA, TSH, AMADOU, CMP #### [facility] [address] [place] [address] Dr. Krystle Heaton Lymphocytes/100 WBC (Bld) 31.3 % Normal 20.5-60.0 [facility] Comment on above: Performed By: #### T 7, LIPA, TSH, AMADOU, CMP #### [facility] [address] [place] [address] Dr. Krystle Heaton MANUAL DIFF REQ NO Normal [facility] Comment on above: Performed By: #### T 7, LIPA, TSH, AMADOU, CMP #### [facility] [address] [place] [address] Dr. Krystle Heaton MCH (RBC) [Entitic mass] 27.8 pg Normal 25.9-34.0 [facility] Comment on above: Performed By: #### T 7, LIPA, TSH, AMADOU, CMP #### [facility] [address] [place] [address] Dr. Krystle Heaton MCHC (RBC) [Mass/Vol] 30.7 g/dL Normal 29.9-35.2 [facility] Comment on above: Performed By: #### T 7, LIPA, TSH, AMADOU, CMP #### [facility] [address] [place] [address] Dr. Krystle Heaton MCV (RBC) [Entitic vol] 90.6 fL Normal 80.0-94.0 [facility] Comment on above: Performed By: #### T 7, LIPA, TSH, AMADOU, CMP #### [facility] [address] [place] [address] Dr. Krystle Heaton MONO # 0.6 103/ul Normal 0.3-0.8 [facility] Comment on above: Performed By: #### T 7, LIPA, TSH, AMADOU, CMP #### [facility] [address] [place] [address] Dr. Krystle Heaton Monocytes/100 WBC (Bld) 12.8 % Critically high 1.7-12.0 [facility] Comment on above: Performed By: #### T 7, LIPA, TSH, AMADOU, CMP #### [facility] [address] [place] [address] Dr. Krystle Heaton NEUT # 2.4 103/ul Normal 1.4-6.5 [facility] Comment on above: Performed By: #### T 7, LIPA, TSH, AMADOU, CMP #### [facility] [address] [place] [address] Dr. Krystle Heaton Neutrophils/100 WBC (Bld) 51.3 % Normal 43.0-75.0 [facility] Comment on above: Performed By: #### T 7, LIPA, TSH, AMADOU, CMP #### [facility] [address] [place] [address] Dr. Krystle Heaton Platelet mean volume (Bld) [Entitic vol] 11.4 fL Normal 9.5-13.5 [facility] Comment on above: Performed By: #### T 7, LIPA, TSH, AMADOU, CMP #### [facility] [address] [place] [address] Dr. Krystle Heaton PLT 190 103/ul Normal 150-450 [facility] Comment on above: Performed By: #### T 7, LIPA, TSH, AMADOU, CMP #### [facility] [address] [place] [address] Dr. Krystle Heaton RBC 4.13 106/ul Critically low 4.70-6.10 [facility] Comment on above: Performed By: #### T 7, LIPA, TSH, AMADOU, CMP #### [facility] [address] [place] [address] Dr. Krystle Heaton WBC 4.7 103/ul Normal 4.0-11.0 [facility] Comment on above: Performed By: #### T 7, LIPA, TSH, AMADOU, CMP #### [facility] [address] [place] [address] Dr. Krystle Heaton PROTIMEon 07-28-2021 INR Coag (PPP) [Relative time] 1.00 {INR} Normal [facility] Comment on above: Performed By: #### H BSANS #### [facility] [address] [place] [address] Billy Devlin INR GUIDELINES SEE BELOW Normal [facility] Comment on above: Result Comment: MOUNA RED INR: 2.0 - 3.0 CONDITIONS NOT LISTED BELOW 2.5 - 3.5 FOR PROSTHETIC HEART VALVE REPLACEMENT 2.5 - 3.5 RECURRENT THROMBOSIS Performed By: #### H BSANS #### [facility] [address] [place] [address] Billy Devlin PT Coag (PPP) [Time] 10.8 s Normal 9.0-11.6 [facility] Comment on above: Performed By: #### H BSANS #### [facility] [address] [place] [address] Billy Devlin CBC AUTO DIFFon 07-09-2021 BASO # 0.0 103/ul Normal 0.0-0.1 [facility] Comment on above: Performed By: #### T 7, LIPA, TSH, AMADOU, CMP #### [facility] [address] [place] [address] Dr. Krystle Heaton Basophils/100 WBC (Bld) 0.4 % Normal 0.2-2.0 [facility] Comment on above: Performed By: #### T 7, LIPA, TSH, AMADOU, CMP #### [facility] [address] [place] [address] Dr. Krystle Heaton EO # 0.2 103/ul Normal 0.0-0.7 [facility] Comment on above: Performed By: #### T 7, LIPA, TSH, AMADOU, CMP #### [facility] [address] [place] [address] Dr. Krystle Heaton Eosinophils/100 WBC (Bld) 2.9 % Normal 0.9-7.0 [facility] Comment on above: Performed By: #### T 7, LIPA, TSH, AMADOU, CMP #### [facility] [address] [place] [address] Dr. Krystle Heaton Erythrocyte distribution width (RBC) [Ratio] 13.9 % Normal 11.0-15.0 [facility] Comment on above: Performed By: #### T 7, LIPA, TSH, AMADOU, CMP #### [facility] [address] [place] [address] Dr. Krystle Heaton Hematocrit (Bld) [Volume fraction] 40.4 % Critically low 42.0-54.0 [facility] Comment on above: Performed By: #### T 7, LIPA, TSH, AMADOU, CMP #### [facility] [address] [place] [address] Dr. Krystle Heaton Hemoglobin (Bld) [Mass/Vol] 12.3 g/dL Critically low 14.0-18.0 [facility] Comment on above: Performed By: #### T 7, LIPA, TSH, AMADOU, CMP #### [facility] [address] [place] [address] Dr. Krystle Heaton IG # 0.03 10e3/ul Normal 0.00-0.03 [facility] Comment on above: Performed By: #### T 7, LIPA, TSH, AMADOU, CMP #### [facility] [address] [place] [address] Dr. Krystle Heaton IG % 0.6 % Critically high 0.0-0.5 [facility] Comment on above: Performed By: #### T 7, LIPA, TSH, AMADOU, CMP #### [facility] [address] [place] [address] Dr. Krystle Heaton LYMPH # 1.5 103/ul Normal 1.2-3.8 [facility] Comment on above: Performed By: #### T 7, LIPA, TSH, AMADOU, CMP #### [facility] [address] [place] [address] Dr. Krystle Heaton Lymphocytes/100 WBC (Bld) 28.3 % Normal 20.5-60.0 [facility] Comment on above: Performed By: #### T 7, LIPA, TSH, AMADOU, CMP #### [facility] [address] [place] [address] Dr. Krystle Heaton MANUAL DIFF REQ NO Normal [facility] Comment on above: Performed By: #### T 7, LIPA, TSH, AMADOU, CMP #### [facility] [address] [place] [address] Dr. Krystle Heaton MCH (RBC) [Entitic mass] 28.3 pg Normal 25.9-34.0 [facility] Comment on above: Performed By: #### T 7, LIPA, TSH, AMADOU, CMP #### [facility] [address] [place] [address] Dr. Krystle Heaton MCHC (RBC) [Mass/Vol] 30.4 g/dL Normal 29.9-35.2 [facility] Comment on above: Performed By: #### T 7, LIPA, TSH, AMADOU, CMP #### [facility] [address] [place] [address] Dr. Krystle Heaton MCV (RBC) [Entitic vol] 93.1 fL Normal 80.0-94.0 [facility] Comment on above: Performed By: #### T 7, LIPA, TSH, AMADOU, CMP #### [facility] [address] [place] [address] Dr. Krystle Heaton MONO # 0.7 103/ul Normal 0.3-0.8 [facility] Comment on above: Performed By: #### T 7, LIPA, TSH, AMADOU, CMP #### [facility] [address] [place] [address] Dr. Krystle Heaton Monocytes/100 WBC (Bld) 13.4 % Critically high 1.7-12.0 [facility] Comment on above: Performed By: #### T 7, LIPA, TSH, AMADOU, CMP #### [facility] [address] [place] [address] Dr. Krystle Heaton NEUT # 2.8 103/ul Normal 1.4-6.5 [facility] Comment on above: Performed By: #### T 7, LIPA, TSH, AMADOU, CMP #### [facility] [address] [place] [address] Dr. Krystle Heaton Neutrophils/100 WBC (Bld) 54.4 % Normal 43.0-75.0 [facility] Comment on above: Performed By: #### T 7, LIPA, TSH, AMADOU, CMP #### [facility] [address] [place] [address] Dr. Krystle Heaton Platelet mean volume (Bld) [Entitic vol] 11.7 fL Normal 9.5-13.5 [facility] Comment on above: Performed By: #### T 7, LIPA, TSH, AMADOU, CMP #### [facility] [address] [place] [address] Dr. Krystle Heaton PLT 192 103/ul Normal 150-450 [facility] Comment on above: Performed By: #### T 7, LIPA, TSH, AMADOU, CMP #### [facility] [address] [place] [address] Dr. Krystle Heaton RBC 4.34 106/ul Critically low 4.70-6.10 [facility] Comment on above: Performed By: #### T 7, LIPA, TSH, AMADOU, CMP #### [facility] [address] [place] [address] Dr. Krystle Heaton WBC 5.2 103/ul Normal 4.0-11.0 [facility] Comment on above: Performed By: #### T 7, LIPA, TSH, AMADOU, CMP #### [facility] [address] [place] [address] Dr. Krystle Heaton FERRITINon 07-09-2021 Ferritin [Mass/Vol] 122.0 ng/mL Normal 17.9-464.0 [facility] Comment on above: Performed By: #### T 7, LIPA, TSH, AMADOU, CMP #### [facility] [address] [place] [address] Dr. Krystle Heaton CBC AUTO DIFFon 06-11-2021 BASO # 0.0 103/ul Normal 0.0-0.1 [facility] Comment on above: Performed By: #### T 7, LIPA, TSH, AMADOU, CMP #### [facility] [address] [place] [address] Dr. Krystle Heaton Basophils/100 WBC (Bld) 0.7 % Normal 0.2-2.0 [facility] Comment on above: Performed By: #### T 7, LIPA, TSH, AMADOU, CMP #### [facility] [address] [place] [address] Dr. Krystle Heaton EO # 0.2 103/ul Normal 0.0-0.7 [facility] Comment on above: Performed By: #### T 7, LIPA, TSH, AMADOU, CMP #### [facility] [address] [place] [address] Dr. Krystle Heaton Eosinophils/100 WBC (Bld) 3.9 % Normal 0.9-7.0 [facility] Comment on above: Performed By: #### T 7, LIPA, TSH, AMADOU, CMP #### [facility] [address] [place] [address] Dr. Krystle Heaton Erythrocyte distribution width (RBC) [Ratio] 13.0 % Normal 11.0-15.0 [facility] Comment on above: Performed By: #### T 7, LIPA, TSH, AMADOU, CMP #### [facility] [address] [place] [address] Dr. Krystle Heaton Hematocrit (Bld) [Volume fraction] 39.0 % Critically low 42.0-54.0 [facility] Comment on above: Performed By: #### T 7, LIPA, TSH, AMADOU, CMP #### [facility] [address] [place] [address] Dr. Krystle Heaton Hemoglobin (Bld) [Mass/Vol] 12.4 g/dL Critically low 14.0-18.0 [facility] Comment on above: Performed By: #### T 7, LIPA, TSH, AMADOU, CMP #### [facility] [address] [place] [address] Dr. Krystle Heaton IG # 0.01 10e3/ul Normal 0.00-0.03 [facility] Comment on above: Performed By: #### T 7, LIPA, TSH, AMADOU, CMP #### [facility] [address] [place] [address] Dr. Krystle Heaton IG % 0.2 % Normal 0.0-0.5 [facility] Comment on above: Performed By: #### T 7, LIPA, TSH, AMADOU, CMP #### [facility] [address] [place] [address] Dr. Krystle Heaton LYMPH # 1.0 103/ul Critically low 1.2-3.8 [facility] Comment on above: Performed By: #### T 7, LIPA, TSH, AMADOU, CMP #### [facility] [address] [place] [address] Dr. Krystle Heaton Lymphocytes/100 WBC (Bld) 23.1 % Normal 20.5-60.0 [facility] Comment on above: Performed By: #### T 7, LIPA, TSH, AMADOU, CMP #### [facility] [address] [place] [address] Dr. Krystle Heaton MANUAL DIFF REQ NO Normal [facility] Comment on above: Performed By: #### T 7, LIPA, TSH, AMADOU, CMP #### [facility] [address] [place] [address] Dr. Krystle Heaton MCH (RBC) [Entitic mass] 31.2 pg Normal 25.9-34.0 [facility] Comment on above: Performed By: #### T 7, LIPA, TSH, AMADOU, CMP #### [facility] [address] [place] [address] Dr. Krystle Heaton MCHC (RBC) [Mass/Vol] 31.8 g/dL Normal 29.9-35.2 [facility] Comment on above: Performed By: #### T 7, LIPA, TSH, AMADOU, CMP #### [facility] [address] [place] [address] Dr. Krystle Heaton MCV (RBC) [Entitic vol] 98.2 fL Critically high 80.0-94.0 [facility] Comment on above: Performed By: #### T 7, LIPA, TSH, AMADOU, CMP #### [facility] [address] [place] [address] Dr. Krystle Heaton MONO # 0.5 103/ul Normal 0.3-0.8 [facility] Comment on above: Performed By: #### T 7, LIPA, TSH, AMADOU, CMP #### [facility] [address] [place] [address] Dr. Krystle Heaton Monocytes/100 WBC (Bld) 10.4 % Normal 1.7-12.0 [facility] Comment on above: Performed By: #### T 7, LIPA, TSH, AMADOU, CMP #### [facility] [address] [place] [address] Dr. Krystle Heaton NEUT # 2.7 103/ul Normal 1.4-6.5 [facility] Comment on above: Performed By: #### T 7, LIPA, TSH, AMADOU, CMP #### [facility] [address] [place] [address] [address] Krystle Heaton Neutrophils/100 WBC (Bld) 61.7 % Normal 43.0-75.0 [facility] Comment on above: Performed By: #### T 7, LIPA, TSH, AMADOU, CMP #### [facility] [address] [place] [address] Dr. Krystle Heaton Platelet mean volume (Bld) [Entitic vol] 10.8 fL Normal 9.5-13.5 [facility] Comment on above: Performed By: #### T 7, LIPA, TSH, AMADOU, CMP #### [facility] [address] [place] [address] Dr. Krystle Heaton PLT 197 103/ul Normal 150-450 [facility] Comment on above: Performed By: #### T 7, LIPA, TSH, AMADOU, CMP #### [facility] [address] [place] [address] Dr. Krystle Heaton RBC 3.97 106/ul Critically low 4.70-6.10 [facility] Comment on above: Performed By: #### T 7, LIPA, TSH, AMADOU, CMP #### [facility] [address] [place] [address] Dr. Krystle Heaton WBC 4.3 103/ul Normal 4.0-11.0 [facility] Comment on above: Performed By: #### T 7, LIPA, TSH, AMADOU, CMP #### [facility] [address] [place] [address] Dr. Krystle Heaton FERRITINon 06-11-2021 Ferritin [Mass/Vol] 107.0 ng/mL Normal 17.9-464.0 [facility] Comment on above: Performed By: #### T 7, LIPA, TSH, AMADOU, CMP #### [facility] [address] [place] [address] Dr. Krystle Heaton CBC AUTO DIFFon 05-28-2021 BASO # 0.0 103/ul Normal 0.0-0.1 [facility] Comment on above: Performed By: #### T 7, LIPA, TSH, AMADOU, CMP #### [facility] [address] [place] [address] Dr. Krystle Heaton Basophils/100 WBC (Bld) 0.5 % Normal 0.2-2.0 [facility] Comment on above: Performed By: #### T 7, LIPA, TSH, AMADOU, CMP #### [facility] [address] [place] [address] Dr. Krystle Heaton EO # 0.1 103/ul Normal 0.0-0.7 [facility] Comment on above: Performed By: #### T 7, LIPA, TSH, AMADOU, CMP #### [facility] [address] [place] [address] Dr. Krystle Heaton Eosinophils/100 WBC (Bld) 3.5 % Normal 0.9-7.0 [facility] Comment on above: Performed By: #### T 7, LIPA, TSH, AMADOU, CMP #### [facility] [address] [place] [address] Dr. Krystle Heaton Erythrocyte distribution width (RBC) [Ratio] 12.6 % Normal 11.0-15.0 [facility] Comment on above: Performed By: #### T 7, LIPA, TSH, AMADOU, CMP #### [facility] [address] [place] [address] Dr. Krystle Heaton Hematocrit (Bld) [Volume fraction] 39.8 % Critically low 42.0-54.0 [facility] Comment on above: Performed By: #### T 7, LIPA, TSH, AMADOU, CMP #### [facility] [address] [place] [address] Dr. Krystle Heaton Hemoglobin (Bld) [Mass/Vol] 12.5 g/dL Critically low 14.0-18.0 [facility] Comment on above: Performed By: #### T 7, LIPA, TSH, AMADOU, CMP #### [facility] [address] [place] [address] Dr. Krystle Heaton IG # 0.00 10e3/ul Normal 0.00-0.03 [facility] Comment on above: Performed By: #### T 7, LIPA, TSH, AMADOU, CMP #### [facility] [address] [place] [address] Dr. Krystle Heaton IG % 0.0 % Normal 0.0-0.5 [facility] Comment on above: Performed By: #### T 7, LIPA, TSH, AMADOU, CMP #### [facility] [address] [place] [address] Dr. Krystle Heaton LYMPH # 1.2 103/ul Normal 1.2-3.8 [facility] Comment on above: Performed By: #### T 7, LIPA, TSH, AMADOU, CMP #### [facility] [address] [place] [address] Dr. Krystle Heaton Lymphocytes/100 WBC (Bld) 32.7 % Normal 20.5-60.0 [facility] Comment on above: Performed By: #### T 7, LIPA, TSH, AMADOU, CMP #### [facility] [address] [place] [address] Dr. Krystle Heaton MANUAL DIFF REQ NO Normal [facility] Comment on above: Performed By: #### T 7, LIPA, TSH, AMADOU, CMP #### [facility] [address] [place] [address] Dr. Krystle Heaton MCH (RBC) [Entitic mass] 32.1 pg Normal 25.9-34.0 [facility] Comment on above: Performed By: #### T 7, LIPA, TSH, AMADOU, CMP #### [facility] [address] [place] [address] Dr. Krystle Heaton MCHC (RBC) [Mass/Vol] 31.4 g/dL Normal 29.9-35.2 [facility] Comment on above: Performed By: #### T 7, LIPA, TSH, AMADOU, CMP #### [facility] [address] [place] [address] Dr. Krystle Heaton MCV (RBC) [Entitic vol] 102.3 fL Critically high 80.0-94.0 [facility] Comment on above: Performed By: #### T 7, LIPA, TSH, AMADOU, CMP #### [facility] [address] [place] [address] [address] Krystle Heaton MONO # 0.4 103/ul Normal 0.3-0.8 [facility] Comment on above: Performed By: #### T 7, LIPA, TSH, AMADOU, CMP #### [facility] [address] [place] [address] Dr. Krystle Heaton Monocytes/100 WBC (Bld) 10.5 % Normal 1.7-12.0 [facility] Comment on above: Performed By: #### T 7, LIPA, TSH, AMADOU, CMP #### [facility] [address] [place] [address] Dr. Krystle Heaton NEUT # 2.0 103/ul Normal 1.4-6.5 [facility] Comment on above: Performed By: #### T 7, LIPA, TSH, AMADOU, CMP #### [facility] [address] [place] [address] Dr. Krystle Heaton Neutrophils/100 WBC (Bld) 52.8 % Normal 43.0-75.0 [facility] Comment on above: Performed By: #### T 7, LIPA, TSH, AMADOU, CMP #### [facility] [address] [place] [address] Dr. Krystle Heaton Platelet mean volume (Bld) [Entitic vol] 10.7 fL Normal 9.5-13.5 [facility] Comment on above: Performed By: #### T 7, LIPA, TSH, AMADOU, CMP #### [facility] [address] [place] [address] Dr. Krystle Heaton PLT 227 103/ul Normal 150-450 [facility] Comment on above: Performed By: #### T 7, LIPA, TSH, AMADOU, CMP #### [facility] [address] [place] [address] Dr. Krystle Heaton RBC 3.89 106/ul Critically low 4.70-6.10 [facility] Comment on above: Performed By: #### T 7, LIPA, TSH, AMADOU, CMP #### [facility] [address] [address] [address] Krystle Heaton WBC 3.7 103/ul Critically low 4.0-11.0 [facility] Comment on above: Performed By: #### T 7, LIPA, TSH, AMADOU, CMP #### [facility] [address] [place] [address] Dr. Krystle Heaton FERRITINon 05-28-2021 Ferritin [Mass/Vol] 169.0 ng/mL Normal 17.9-464.0 [facility] Comment on above: Performed By: #### F ERR #### [facility] [address] [address] [address] Krystle Heaton METHYLMALONIC ACID (MMA)on 0 05-18-2021 Disclaimer: Comment Normal [facility] Comment on above: Result Comment: This test was developed and its performance characteristics determined by [facility]. It has not been cleared or approved by the Food and Drug Administration. Performed By: #### T 7, LIPA, TSH, AMADOU, CMP #### [facility] [address] [place] [address] Dr. Krystle Heaton Methylmalonic Acid, Serum 124 nmol/L Normal 0-378 [facility] Comment on above: Performed By: #### T 7, LIPA, TSH, AMADOU, CMP #### [facility] [address] [place] [address] Dr. Krystle Heaton HOMOCYSTEINEon 05-16-2021 Homocyst(e)ine, Plasma 19.5 umol/L Critically high 0.0-14.5 [facility] Comment on above: Performed By: #### T 7, LIPA, TSH, AMADOU, CMP #### [facility] [address] [place] [address] Dr. Krystle Heaton CBC AUTO DIFFon 05-15-2021 BASO # 0.0 103/ul Normal 0.0-0.1 [facility] Comment on above: Performed By: #### T 7, LIPA, TSH, AMADOU, CMP #### [facility] [address] [place] [address] Dr. Krystle Heaton Basophils/100 WBC (Bld) 0.5 % Normal 0.2-2.0 [facility] Comment on above: Performed By: #### T 7, LIPA, TSH, AMADOU, CMP #### [facility] [address] [place] [address] Dr. Krystle Heaton EO # 0.1 103/ul Normal 0.0-0.7 [facility] Comment on above: Performed By: #### T 7, LIPA, TSH, AMADOU, CMP #### [facility] [address] [place] [address] Dr. Krystle Heaton Eosinophils/100 WBC (Bld) 1.8 % Normal 0.9-7.0 [facility] Comment on above: Performed By: #### T 7, LIPA, TSH, AMADOU, CMP #### [facility] [address] [place] [address] Dr. Krystle Heaton Erythrocyte distribution width (RBC) [Ratio] 12.7 % Normal 11.0-15.0 [facility] Comment on above: Performed By: #### T 7, LIPA, TSH, AMADOU, CMP #### [facility] [address] [place] [address] Dr. Krystle Heaton Hematocrit (Bld) [Volume fraction] 39.4 % Critically low 42.0-54.0 [facility] Comment on above: Performed By: #### T 7, LIPA, TSH, AMADOU, CMP #### [facility] [address] [place] [address] Dr. Krystle Heaton Hemoglobin (Bld) [Mass/Vol] 12.9 g/dL Critically low 14.0-18.0 [facility] Comment on above: Performed By: #### T 7, LIPA, TSH, AMADOU, CMP #### [facility] [address] [place] [address] Dr. Krystle Heaton IG # 0.02 10e3/ul Normal 0.00-0.03 [facility] Comment on above: Performed By: #### T 7, LIPA, TSH, AMADOU, CMP #### [facility] [address] [place] [address] Dr. Krystle Heaton IG % 0.4 % Normal 0.0-0.5 [facility] Comment on above: Performed By: #### T 7, LIPA, TSH, AMADOU, CMP #### [facility] [address] [place] [address] Dr. Krystle Heaton LYMPH # 1.4 103/ul Normal 1.2-3.8 [facility] Comment on above: Performed By: #### T 7, LIPA, TSH, AMADOU, CMP #### [facility] [address] [place] [address] Dr. Krystle Heaton Lymphocytes/100 WBC (Bld) 24.9 % Normal 20.5-60.0 [facility] Comment on above: Performed By: #### T 7, LIPA, TSH, AMADOU, CMP #### [facility] [address] [place] [address] Dr. Krystle Heaton MANUAL DIFF REQ NO Normal [facility] Comment on above: Performed By: #### T 7, LIPA, TSH, AMADOU, CMP #### [facility] [address] [place] [address] Dr. Krystle Heaton MCH (RBC) [Entitic mass] 34.0 pg Normal 25.9-34.0 [facility] Comment on above: Performed By: #### T 7, LIPA, TSH, AMADOU, CMP #### [facility] [address] [place] [address] Dr. Krystle Heaton MCHC (RBC) [Mass/Vol] 32.7 g/dL Normal 29.9-35.2 [facility] Comment on above: Performed By: #### T 7, LIPA, TSH, AMADOU, CMP #### [facility] [address] [place] [address] Dr. Krystle Heaton MCV (RBC) [Entitic vol] 104.0 fL Critically high 80.0-94.0 [facility] Comment on above: Performed By: #### T 7, LIPA, TSH, AMADOU, CMP #### [facility] [address] [place] [address] Dr. Krystle Heaton MONO # 0.7 103/ul Normal 0.3-0.8 [facility] Comment on above: Performed By: #### T 7, LIPA, TSH, AMADOU, CMP #### [facility] [address] [address] [address] Krystle Heaton Monocytes/100 WBC (Bld) 11.8 % Normal 1.7-12.0 [facility] Comment on above: Performed By: #### T 7, LIPA, TSH, AMADOU, CMP #### [facility] [address] [place] [address] Dr. Krystle Heaton NEUT # 3.3 103/ul Normal 1.4-6.5 [facility] Comment on above: Performed By: #### T 7, LIPA, TSH, AMADOU, CMP #### [facility] [address] [place] [address] Dr. Krystle Heaton Neutrophils/100 WBC (Bld) 60.6 % Normal 43.0-75.0 [facility] Comment on above: Performed By: #### T 7, LIPA, TSH, AMADOU, CMP #### [facility] [address] [place] [address] Dr. Krystle Heaton Platelet mean volume (Bld) [Entitic vol] 10.2 fL Normal 9.5-13.5 [facility] Comment on above: Performed By: #### T 7, LIPA, TSH, AMADOU, CMP #### [facility] [address] [place] [address] Dr. Krystle Heaton PLT 196 103/ul Normal 150-450 [facility] Comment on above: Performed By: #### T 7, LIPA, TSH, AMADOU, CMP #### [facility] [address] [place] [address] Dr. Krystle Heaton RBC 3.79 106/ul Critically low 4.70-6.10 [facility] Comment on above: Performed By: #### T 7, LIPA, TSH, AMADOU, CMP #### [facility] [address] [place] [address] Dr. Krystle Heaton WBC 5.5 103/ul Normal 4.0-11.0 [facility] Comment on above: Performed By: #### T 7, LIPA, TSH, AMADOU, CMP #### [facility] [address] [place], [place] [id number] Dr. Krystle Heaton FERRITINon 05-15-2021 Ferritin [Mass/Vol] 302.0 ng/mL Normal 17.9-464.0 [facility] Comment on above: Performed By: #### C BC #### [facility] [address] [place], [place] [id number] Billy Devlin PROF 14(COMP METB)on 021 Albumin [Mass/Vol] 3.5 g/dL Normal 3.5-5.0 [facility] Comment on above: Performed By: #### C BC #### [facility] [address] [place], [place] [id number] Billycarrillo Devlin Albumin/Globulin [Mass ratio] 1.0 {ratio} Normal [facility] Comment on above: Performed By: #### C BC #### [facility] [address] [place] [address] Billy Quita ALP [Catalytic activity/Vol] 71 U/L Normal 38-126 [facility] Comment on above: Performed By: #### C BC #### [facility] [address] [place], [place] [id number] Billy Quita ALT [Catalytic activity/Vol] 40 U/L Normal 21-72 [facility] Comment on above: Performed By: #### C BC #### [facility] [address] [place], [place] [id number] Billy Quita Anion gap [Moles/Vol] 17.5 mmol/L Normal [facility] Comment on above: Performed By: #### C BC #### [facility] [address] [place], [place] [id number] Billy Quita AST [Catalytic activity/Vol] 43 U/L Normal 17-59 [facility] Comment on above: Performed By: #### C BC #### [facility] [address] [place], [place] [id number] Billy Quita Bilirubin [Mass/Vol] 0.3 mg/dL Normal 0.2-1.3 [facility] Comment on above: Performed By: #### C BC #### [facility] [address] [address] Billy Quita Calcium [Mass/Vol] 8.8 mg/dL Normal 8.4-10.2 [facility] Comment on above: Performed By: #### C BC #### [facility] [address] [address] Billy Quita Chloride [Moles/Vol] 101 mmol/L Normal 98-107 [facility] Comment on above: Performed By: #### C BC #### [facility] [address] [address] Billy Quita CO2 [Moles/Vol] 26.6 mmol/L Normal 22.0-30.0 [facility] Comment on above: Performed By: #### C BC #### [facility] [address] [place] [address] Billy Quita Creatinine [Mass/Vol] 0.88 mg/dL Normal 0.66-1.25 [facility] Comment on above: Performed By: #### C BC #### [facility] [address] [place] [address] Billy Quita EGFR-AF JORDANIAN >60 Normal >=60 [facility] Comment on above: Performed By: #### C BC #### [facility] [address] [place] [address] Billy Quita EGFR-NON AF JORDANIAN >60 Normal >=60 [facility] Comment on above: Performed By: #### C BC #### [facility] [address] [place] [address] Billy Quita Globulin (S) [Mass/Vol] 3.6 g/dL Normal [facility] Comment on above: Performed By: #### C BC #### [facility] [address] [place] [address] Billy Quita Glucose [Mass/Vol] 101 mg/dL Normal 74-106 [facility] Comment on above: Performed By: #### C BC #### [facility] [address] [place], [place] [address] Billy Quita Potassium [Moles/Vol] 4.1 mmol/L Normal 3.4-5.0 [facility] Comment on above: Performed By: #### C BC #### [facility] [address], [place] [address] Billy Quita Protein [Mass/Vol] 7.1 g/dL Normal 6.1-8.2 [facility] Comment on above: Performed By: #### C BC #### [facility] [address], [place] [address] Billy Quita Sodium [Moles/Vol] 141 mmol/L Normal 137-145 [facility] Comment on above: Performed By: #### C BC #### [facility] [address] [id number] Billy Quita Urea nitrogen [Mass/Vol] 11.0 mg/dL Normal 9.0-20.0 [facility] Comment on above: Performed By: #### C BC #### [facility] [address] [id number] Billy Quita Urea nitrogen/Creatinine [Mass ratio] 12.5 mg/mg Normal [facility] Comment on above: Performed By: #### C BC #### [facility] [address], [place] [address] Billy Quita IN BIOPSY LIVER PERCUTANEOUS NEEDLEon 05-08-2021 IN BIOPSY LIVER PERCUTANEOUS NEEDLE Patient Name: CHUY CHAPIN STUDY: IN BIOPSY LIVER PERCUTANEOUS NEEDLE; ; 05/08/2021 11:46 am INDICATION: None. COMPARISON: None. ACCESSION NUMBER(S): [id number] ORDERING CLINICIAN: ENOCH HERRMANN TECHNIQUE: CONSENT: The [...] and cap. Additionally, the performing physician and assistant business manager used maximum barrier technique to include [...] were made using an 18 gauge spring-loaded OkCopay core biopsy needle. Good core samples were [...] above Electronically signed by: URI BACON MD [facility] Order Reconciliationon 05-08 Order Reconciliation Page [...] tab(s) orally 2 times a day Normal [facility] Surgical Pathology Depar tmenton 05-08-2021 [facility] Surgical Pathology Department Name CHUY CHAPIN Pathologist: SUSAN BLACK M.D., PhD. Date of Procedure: 05/08/2021 Date Received: 05/08/2021 Date Reported 05/11/2021 Submitting Physician: ENOCH HERRMANN MD Location: [facility] Copy To/Referring/Attending: URI BACON MD Other [...] positive and negative controls which stained appropriately. [facility] Department of Pathology [address] [place] [address] Normal [facility] Comment on above: Performed By: #### U HCS #### [facility] Surgical Pathology Department [address] [place] [address] CBC AUTO DIFFon 05-04-2021 BASO # 0.0 103/ul Normal 0.0-0.1 [facility] Comment on above: Performed By: #### F ERR #### [facility] [address] [place] [address] Dr. Krystle Heaton Basophils/100 WBC (Bld) 0.5 % Normal 0.2-2.0 [facility] Comment on above: Performed By: #### F ERR #### [facility] [address] [place] [address] Dr. Krystle Heaton EO # 0.1 103/ul Normal 0.0-0.7 [facility] Comment on above: Performed By: #### F ERR #### [facility] [address] [place] [address] Dr. Krystle Heaton Eosinophils/100 WBC (Bld) 2.5 % Normal 0.9-7.0 [facility] Comment on above: Performed By: #### F ERR #### [facility] [address] [place] [address] Dr. Krystle Heaton Erythrocyte distribution width (RBC) [Ratio] 12.5 % Normal 11.0-15.0 [facility] Comment on above: Performed By: #### F ERR #### [facility] [address] [place] [address] Dr. Krystle Heaton Hematocrit (Bld) [Volume fraction] 34.3 % Critically low 42.0-54.0 [facility] Comment on above: Performed By: #### F ERR #### [facility] [address] [place] [address] Dr. Krystle Heaton Hemoglobin (Bld) [Mass/Vol] 11.2 g/dL Critically low 14.0-18.0 [facility] Comment on above: Performed By: #### F ERR #### [facility] [address] [place] [address] Dr. Krystle Heaton IG # 0.01 10e3/ul Normal 0.00-0.03 [facility] Comment on above: Performed By: #### F ERR #### [facility] [address] [place] [address] Dr. Krystle Heaton IG % 0.3 % Normal 0.0-0.5 [facility] Comment on above: Performed By: #### F ERR #### [facility] [address] [place] [address] Dr. Krystle Heaton LYMPH # 1.3 103/ul Normal 1.2-3.8 [facility] Comment on above: Performed By: #### F ERR #### [facility] [address] [place] [address] Dr. Krystle Heaton Lymphocytes/100 WBC (Bld) 33.3 % Normal 20.5-60.0 [facility] Comment on above: Performed By: #### F ERR #### [facility] [address] [place] [address] Dr. Krystle Heaton MANUAL DIFF REQ NO Normal [facility] Comment on above: Performed By: #### F ERR #### [facility] [address] [place] [address] Dr. Krystle Heaton MCH (RBC) [Entitic mass] 35.6 pg Critically high 25.9-34.0 [facility] Comment on above: Performed By: #### F ERR #### [facility] [address] [address] [address] Krystle Heaton MCHC (RBC) [Mass/Vol] 32.7 g/dL Normal 29.9-35.2 [facility] Comment on above: Performed By: #### F ERR #### [facility] [address] [place] [address] Dr. Krystle Heaton MCV (RBC) [Entitic vol] 108.9 fL Critically high 80.0-94.0 [facility] Comment on above: Performed By: #### F ERR #### [facility] [address] [place] [address] Dr. Krystle Heaton MONO # 0.4 103/ul Normal 0.3-0.8 [facility] Comment on above: Performed By: #### F ERR #### [facility] [address] [place] [address] Dr. Krystle Heaton Monocytes/100 WBC (Bld) 10.0 % Normal 1.7-12.0 [facility] Comment on above: Performed By: #### F ERR #### [facility] [address] [place] [address] Dr. Krystle Heaton NEUT # 2.1 103/ul Normal 1.4-6.5 [facility] Comment on above: Performed By: #### F ERR #### [facility] [address] [place] [address] Dr. Krystle Heaton Neutrophils/100 WBC (Bld) 53.4 % Normal 43.0-75.0 [facility] Comment on above: Performed By: #### F ERR #### [facility] [address] [place] [address] Dr. Krystle Heaton Platelet mean volume (Bld) [Entitic vol] 10.7 fL Normal 9.5-13.5 [facility] Comment on above: Performed By: #### F ERR #### [facility] [address] [place] [address] Dr. Krystle Heaton PLT 174 103/ul Normal 150-450 [facility] Comment on above: Performed By: #### F ERR #### [facility] [address] [place] [address] Dr. Krystle Heaton RBC 3.15 106/ul Critically low 4.70-6.10 [facility] Comment on above: Result Comment: SLID E REVIEWED. 2+ MACROCYTOSIS SEEN Performed By: #### F ERR #### [facility] [address] [place] [address] Dr. Krystle Heaton WBC 4.0 103/ul Normal 4.0-11.0 [facility] Comment on above: Performed By: #### F ERR #### [facility] [address] [place] [address] Dr. Krystle Heaton FERRITINon 05-04-2021 Ferritin [Mass/Vol] 417.0 ng/mL Normal 17.9-464.0 [facility] Comment on above: Performed By: #### T 7, LIPA, TSH, AMADOU, CMP #### [facility] [address] [place] [address] Dr. Krystle Heaton AFP (TUMOR MARKER)on 021 AFP, Serum, Tumor Marker 5.2 ng/mL Normal 0.0-8.3 [facility] Comment on above: Result Comment: [facility] [employer] Electrochemiluminescence Immunoassay (ECLIA) . Values obtained with different assay methods or kits cannot be used interchangeably. Results cannot be interpreted as absolute evidence of the presence or absence of malignant disease. . This test is not interpretable in females. Performed By: #### T 7, LIPA, TSH, AMADOU, CMP #### [facility] [address] [place] [address] Dr. Krystle Heaton [id number] 2020 [id number] , Serum 132 mg/dL Normal 101-187 [facility] Comment on above: Performed By: #### H BSANS #### [facility] [address] [place] [address] Billy Devlin NE by IFAon 05-02-2021 Antinuclear Antibodies, IFA Negative Normal [facility] Comment on above: Result Comment: Nega tive <1:80 Borderline 1:80 Positive >1:80 Performed By: #### A NAIFA #### [facility] [address] [address] Billy Devlin CERULOPLASMINon 05-02-2021 Ceruloplasmin 27.8 mg/dL Normal 16.0-31.[address] [facility] Comment on above: Performed By: #### C BC #### [facility] [address] [place], [place] [phone] Billy Devlin HEP A AB TOTALon 05-02-2021 Hep A Ab, Total Negative Normal Negative [facility] Comment on above: Performed By: #### H BSANS #### [facility] [address] [place] [address] Billy Devlin HEP B COREon 05-02-2021 Hep B Core Ab, Tot Negative Normal Negative [facility] Comment on above: Performed By: #### T 7, LIPA, TSH, AMADOU, CMP #### [facility] [address] [place] [address] Dr. Krystle Heaton HEP B SURFACE ANTIGEN SCREEN on 05-02-2021 HBsAg Screen Negative Normal Negative [facility] Comment on above: Performed By: #### H BSANS #### [facility] [address] [place] [address] Billy Devlin HEPATITIS B SURFACE ANTIBODY , QUANTon 05-02-2021 Hepatitis B Surf AB Quant <3.1 Critically low Immunity>9. 9 [facility] Comment on above: Result Comment: Stat us of Immunity Anti-HBs Level Inconsistent with Immunity 0.0 - 9.9 Consistent with Immunity >9.9 Performed By: #### H BSANS #### [facility] [address] [place] [address] Billy Devlin HEPATITIS C ANTIBODYon 05-02 Hep C Virus Ab <0.1 Normal 0.0-0.9 [facility] Comment on above: Result Comment: Nega tive: < 0.8 Indeterminate: 0.8 - 0.9 Positive: > 0.9 . The CDC recommends that a positive HCV antibody result be followed up with a HCV Nucleic Acid Amplification test (544000). Performed By: #### T 7, LIPA, TSH, AMADOU, CMP #### [facility] [address] [place] [address] Dr. Krystle Heaton MITICHONDRIAL (M2) ANTIBODYo n 05-02-2021 Mitochondrial (M2) Antibody <20.0 Normal 0.0-20.0 [facility] Comment on above: Result Comment: Nega tive 0.0 - 20.0 Equivocal 20.1 - 24.9 Positive >24.9 . Mitochondrial (M2) Antibodies are found in 90-96% of patients with primary biliary cirrhosis. Performed By: #### F ERR #### [facility] [address] [place] [address] Dr. Krystle Heaton CBC AUTO DIFFon 05-01-2021 BASO # 0.1 103/ul Normal 0.0-0.1 [facility] Comment on above: Performed By: #### C BC #### [facility] [address] [place] [address] Billy Quita Basophils/100 WBC (Bld) 1.5 % Normal 0.2-2.0 [facility] Comment on above: Performed By: #### C BC #### [facility] [address] [place] [address] Billy Quita EO # 0.1 103/ul Normal 0.0-0.7 [facility] Comment on above: Performed By: #### C BC #### [facility] [address] [place] [address] Billy Quita Eosinophils/100 WBC (Bld) 2.1 % Normal 0.9-7.0 [facility] Comment on above: Performed By: #### C BC #### [facility] [address] [place], [place] [id number] Billy Quita Erythrocyte distribution width (RBC) [Ratio] 12.7 % Normal 11.0-15.0 [facility] Comment on above: Performed By: #### C BC #### [facility] [address] [place], [place] [id number] Billy Quita Hematocrit (Bld) [Volume fraction] 34.6 % Critically low 42.0-54.0 [facility] Comment on above: Performed By: #### C BC #### [facility] [address] [place] [address] Billy Devlin Hemoglobin (Bld) [Mass/Vol] 11.2 g/dL Critically low 14.0-18.0 [facility] Comment on above: Performed By: #### C BC #### [facility] [address] [place] [address] Billycarrillo Devlin IG # 0.01 10e3/ul Normal 0.00-0.03 [facility] Comment on above: Performed By: #### C BC #### [facility] [address] [place] [address] Billy Devlin IG % 0.3 % Normal 0.0-0.5 [facility] Comment on above: Performed By: #### C BC #### [facility] [address] [place] [address] Billy Devlin LYMPH # 1.0 103/ul Critically low 1.2-3.8 The [facility] Comment on above: Performed By: #### C BC #### [facility] [address] [place] [address] Billy Devlin Lymphocytes/100 WBC (Bld) 30.4 % Normal 20.5-60.0 [facility] Comment on above: Performed By: #### C BC #### [facility] [address] [place] [address] Billy Devlin MANUAL DIFF REQ NO Normal [facility] Comment on above: Performed By: #### C BC #### [facility] [address] [place] [address] Billy Devlin MCH (RBC) [Entitic mass] 35.8 pg Critically high 25.9-34.0 [facility] Comment on above: Performed By: #### C BC #### [facility] [address] [place] [address] Billy Devlin MCHC (RBC) [Mass/Vol] 32.4 g/dL Normal 29.9-35.2 [facility] Comment on above: Performed By: #### C BC #### [facility] [address] [id number] Billy Devlin MCV (RBC) [Entitic vol] 110.5 fL Critically high 80.0-94.0 [facility] Comment on above: Performed By: #### C BC #### [facility] [address] [id number] Billy Devlin MONO # 0.4 103/ul Normal 0.3-0.8 [facility] Comment on above: Performed By: #### C BC #### [facility] [address] [place], [place] [id number] Billy Devlin Monocytes/100 WBC (Bld) 11.3 % Normal 1.7-12.0 [facility] Comment on above: Performed By: #### C BC #### [facility] [address] [place], [place] [id number] Billy Deanen NEUT # 1.8 103/ul Normal 1.4-6.5 [facility] Comment on above: Performed By: #### C BC #### [facility] [address] [place], [place] [id number] Billy Devlin Neutrophils/100 WBC (Bld) 54.4 % Normal 43.0-75.0 [facility] Comment on above: Performed By: #### C BC #### [facility] [address] [place], [place] [id number] Billy Devlin Platelet mean volume (Bld) [Entitic vol] 11.3 fL Normal 9.5-13.5 [facility] Comment on above: Performed By: #### C BC #### [facility] [address] [place], [place] [id number] Billy Quita PLT 142 103/ul Critically low 150-450 [facility] Comment on above: Performed By: #### C BC #### [facility] [address] [place], [place] [id number] Billy Quita RBC 3.13 106/ul Critically low 4.70-6.10 [facility] Comment on above: Performed By: #### C BC #### [facility] [address], [place] [address] Billy Quita WBC 3.4 103/ul Critically low 4.0-11.0 [facility] Comment on above: Performed By: #### C BC #### [facility] [address], [place] [address] Billy Quita LIVER PROFILEon 05-01-2021 Albumin/Globulin [Mass ratio] 1.0 {ratio} Normal [facility] Comment on above: Performed By: #### H BSANS #### [facility] [address] [address] Billy Quita ALP [Catalytic activity/Vol] 67 U/L Normal 38-126 [facility] Comment on above: Performed By: #### H BSANS #### [facility] [address] [place] [address] Billy Quita ALT [Catalytic activity/Vol] 52 U/L Normal 21-72 [facility] Comment on above: Performed By: #### H BSANS #### [facility] [address] [place] [address] Billy Quita AST [Catalytic activity/Vol] 51 U/L Normal 17-59 [facility] Comment on above: Performed By: #### H BSANS #### [facility] [address] [place] [address] Billy Quita BILI, CONJUGATED 0.2 mg/dL Normal 0.0-0.3 [facility] Comment on above: Performed By: #### H BSANS #### [facility] [address] [place] [address] Billy Quita Bilirubin [Mass/Vol] 0.5 mg/dL Normal 0.2-1.3 [facility] Comment on above: Performed By: #### H BSANS #### [facility] [address] [place], [place] [phone] Billy Quita Globulin (S) [Mass/Vol] 3.4 g/dL Normal [facility] Comment on above: Performed By: #### H BSANS #### [facility] [address] [place] [address] Billy Quita Protein [Mass/Vol] 6.9 g/dL Normal 6.1-8.2 [facility] Comment on above: Performed By: #### H BSANS #### [facility] [address] [place], [place] [id number] Billy Quita PROTIMEon 05-01-2021 INR Coag (PPP) [Relative time] 0.95 {INR} Normal [facility] Comment on above: Performed By: #### C BC #### [facility] [address] [place] [address] Billy Quita INR GUIDELINES SEE BELOW Normal [facility] Comment on above: Result Comment: MOUNA RED INR: 2.0 - 3.0 CONDITIONS NOT LISTED BELOW 2.5 - 3.5 FOR PROSTHETIC HEART VALVE REPLACEMENT 2.5 - 3.5 RECURRENT THROMBOSIS Performed By: #### C BC #### [facility] [address] [place] [address] Billy Quita PT Coag (PPP) [Time] 10.4 s Normal 9.0-11.6 [facility] Comment on above: Performed By: #### C BC #### [facility] [address] [place] [address] Billy Quita RENAL FUNCTION PANELon 05-01 Albumin [Mass/Vol] 3.5 g/dL Normal 3.5-5.0 [facility] Comment on above: Performed By: #### H BSANS #### [facility] [address] [place] [address] Billy Quita Calcium [Mass/Vol] 8.7 mg/dL Normal 8.4-10.2 [facility] Comment on above: Performed By: #### H BSANS #### [facility] [address] [place] [address] Billy Quita Chloride [Moles/Vol] 104 mmol/L Normal 98-107 [facility] Comment on above: Performed By: #### H BSANS #### [facility] [address] [place] [address] Billy Quita CO2 [Moles/Vol] 25.7 mmol/L Normal 22.0-30.0 [facility] Comment on above: Performed By: #### H BSANS #### [facility] [address] [id number] Billy Quita Creatinine [Mass/Vol] 1.01 mg/dL Normal 0.66-1.25 [facility] Comment on above: Performed By: #### H BSANS #### [facility] [address] [address] Billy Quita EGFR-AF JORDANIAN >60 Normal >=60 [facility] Comment on above: Performed By: #### H BSANS #### [facility] [address] [address] Billy Quita EGFR-NON AF JORDANIAN >60 Normal >=60 [facility] Comment on above: Performed By: #### H BSANS #### [facility] [address] [place] [address] Billy Quita Glucose [Mass/Vol] 103 mg/dL Normal 74-106 [facility] Comment on above: Performed By: #### H BSANS #### [facility] [address] [address] Billy Quita Phosphate [Mass/Vol] 3.6 mg/dL Normal 2.5-4.5 [facility] Comment on above: Performed By: #### H BSANS #### [facility] [address] [place] [address] Billy Quita Potassium [Moles/Vol] 4.2 mmol/L Normal 3.4-5.0 [facility] Comment on above: Performed By: #### H BSANS #### [facility] [address] [address] Billy Quita Sodium [Moles/Vol] 138 mmol/L Normal 137-145 [facility] Comment on above: Performed By: #### H BSANS #### [facility] [address] [address] Billy Quita Urea nitrogen [Mass/Vol] 7.0 mg/dL Critically low 9.0-20.0 [facility] Comment on above: Performed By: #### H BSANS #### [facility] [address] [place] [address] Billy Devlin CBC AUTO DIFFon 04-27-2021 BASO # 0.0 103/ul Normal 0.0-0.1 [facility] Comment on above: Performed By: #### T 7, LIPA, TSH, AMADOU, CMP #### [facility] [address] [place] [address] Dr. Krystle Heaton Basophils/100 WBC (Bld) 0.9 % Normal 0.2-2.0 [facility] Comment on above: Performed By: #### T 7, LIPA, TSH, AMADOU, CMP #### [facility] [address] [place] [address] Dr. Krystle Heaton EO # 0.1 103/ul Normal 0.0-0.7 [facility] Comment on above: Performed By: #### T 7, LIPA, TSH, AMADOU, CMP #### [facility] [address] [place] [address] Dr. Krystle Heaton Eosinophils/100 WBC (Bld) 2.6 % Normal 0.9-7.0 [facility] Comment on above: Performed By: #### T 7, LIPA, TSH, AMADOU, CMP #### [facility] [address] [place] [address] Dr. Krystle Heaton Erythrocyte distribution width (RBC) [Ratio] 12.4 % Normal 11.0-15.0 [facility] Comment on above: Performed By: #### T 7, LIPA, TSH, AMADOU, CMP #### [facility] [address] [place] [address] Dr. Krystle Heaton Hematocrit (Bld) [Volume fraction] 36.8 % Critically low 42.0-54.0 [facility] Comment on above: Performed By: #### T 7, LIPA, TSH, AMADOU, CMP #### [facility] [address] [place] [address] Dr. Krystle Heaton Hemoglobin (Bld) [Mass/Vol] 12.0 g/dL Critically low 14.0-18.0 [facility] Comment on above: Performed By: #### T 7, LIPA, TSH, AMADOU, CMP #### [facility] [address] [place] [address] Dr. Krystle Heaton IG # 0.02 10e3/ul Normal 0.00-0.03 [facility] Comment on above: Performed By: #### T 7, LIPA, TSH, AMADOU, CMP #### [facility] [address] [place] [address] Dr. Krystle Heaton IG % 0.4 % Normal 0.0-0.5 [facility] Comment on above: Performed By: #### T 7, LIPA, TSH, AMADOU, CMP #### [facility] [address] [place] [address] Dr. Krystle Heaton LYMPH # 1.2 103/ul Normal 1.2-3.8 [facility] Comment on above: Performed By: #### T 7, LIPA, TSH, AMADOU, CMP #### [facility] [address] [place] [address] Dr. Krystle Heaton Lymphocytes/100 WBC (Bld) 26.0 % Normal 20.5-60.0 [facility] Comment on above: Performed By: #### T 7, LIPA, TSH, AMADOU, CMP #### [facility] [address] [place] [address] Dr. Krystle Heaton MANUAL DIFF REQ NO Normal [facility] Comment on above: Performed By: #### T 7, LIPA, TSH, AMADOU, CMP #### [facility] [address] [place] [address] Dr. Krystle Heaton MCH (RBC) [Entitic mass] 36.4 pg Critically high 25.9-34.0 [facility] Comment on above: Performed By: #### T 7, LIPA, TSH, AMADOU, CMP #### [facility] [address] [place] [address] Dr. Krystle Heaton MCHC (RBC) [Mass/Vol] 32.6 g/dL Normal 29.9-35.2 [facility] Comment on above: Performed By: #### T 7, LIPA, TSH, AMADOU, CMP #### [facility] [address] [place] [address] Dr. Krystle Heaton MCV (RBC) [Entitic vol] 111.5 fL Critically high 80.0-94.0 [facility] Comment on above: Performed By: #### T 7, LIPA, TSH, AMADOU, CMP #### [facility] [address] [place] [address] Dr. Krystle Heaton MONO # 0.5 103/ul Normal 0.3-0.8 [facility] Comment on above: Performed By: #### T 7, LIPA, TSH, AMADOU, CMP #### [facility] [address] [place] [address] Dr. Krystle Heaton Monocytes/100 WBC (Bld) 10.1 % Normal 1.7-12.0 [facility] Comment on above: Performed By: #### T 7, LIPA, TSH, AMADOU, CMP #### [facility] [address] [place] [address] Dr. Krystle Heaton NEUT # 2.8 103/ul Normal 1.4-6.5 [facility] Comment on above: Performed By: #### T 7, LIPA, TSH, AMADOU, CMP #### [facility] [address] [place] [address] Dr. Krystle Heaton Neutrophils/100 WBC (Bld) 60.0 % Normal 43.0-75.0 [facility] Comment on above: Performed By: #### T 7, LIPA, TSH, AMADOU, CMP #### [facility] [address] [place] [address] Dr. Krystle Heaton Platelet mean volume (Bld) [Entitic vol] 11.0 fL Normal 9.5-13.5 [facility] Comment on above: Performed By: #### T 7, LIPA, TSH, AMADOU, CMP #### [facility] [address] [place] [address] Dr. Krystle Heaton PLT 140 103/ul Critically low 150-450 [facility] Comment on above: Performed By: #### T 7, LIPA, TSH, AMADOU, CMP #### [facility] [address] [place] [address] Dr. Krystle Heaton RBC 3.30 106/ul Critically low 4.70-6.10 [facility] Comment on above: Performed By: #### T 7, LIPA, TSH, AMADOU, CMP #### [facility] [address] [place] [address] Dr. Krystle Heaton WBC 4.7 103/ul Normal 4.0-11.0 [facility] Comment on above: Performed By: #### T 7, LIPA, TSH, AMADOU, CMP #### [facility] [address] [place] [address] Dr. Krystle Heaton FERRITINon 04-27-2021 Ferritin [Mass/Vol] 845.0 ng/mL Critically high 17.9-464.0 [facility] Comment on above: Performed By: #### F ERR #### [facility] [address] [place] [address] Dr. Krystle Heaton CBC AUTO DIFFon 04-18-2021 BASO # 0.1 103/ul Normal 0.0-0.1 [facility] Comment on above: Performed By: #### T 7, LIPA, TSH, AMADOU, CMP #### [facility] [address] [place] [address] Dr. Krystle Heaton Basophils/100 WBC (Bld) 1.1 % Normal 0.2-2.0 [facility] Comment on above: Performed By: #### T 7, LIPA, TSH, AMADOU, CMP #### [facility] [address] [place] [address] Dr. Krystle Heaton EO # 0.1 103/ul Normal 0.0-0.7 [facility] Comment on above: Performed By: #### T 7, LIPA, TSH, AMADOU, CMP #### [facility] [address] [place] [address] Dr. Krystle Heaton Eosinophils/100 WBC (Bld) 2.2 % Normal 0.9-7.0 [facility] Comment on above: Performed By: #### T 7, LIPA, TSH, AMADOU, CMP #### [facility] [address] [place] [address] Dr. Krystle Heaton Erythrocyte distribution width (RBC) [Ratio] 13.1 % Normal 11.0-15.0 [facility] Comment on above: Performed By: #### T 7, LIPA, TSH, AMADOU, CMP #### [facility] [address] [place] [address] Dr. Krystle Heaton Hematocrit (Bld) [Volume fraction] 35.2 % Critically low 42.0-54.0 [facility] Comment on above: Performed By: #### T 7, LIPA, TSH, AMADOU, CMP #### [facility] [address] [place] [address] Dr. rKystle Heaton Hemoglobin (Bld) [Mass/Vol] 11.8 g/dL Critically low 14.0-18.0 [facility] Comment on above: Performed By: #### T 7, LIPA, TSH, AMADOU, CMP #### [facility] [address] [place] [address] Dr. Krystle Heaton IG # 0.01 10e3/ul Normal 0.00-0.03 [facility] Comment on above: Performed By: #### T 7, LIPA, TSH, AMADOU, CMP #### [facility] [address] [place] [address] Dr. Krystle Heaton IG % 0.2 % Normal 0.0-0.5 [facility] Comment on above: Performed By: #### T 7, LIPA, TSH, AMADOU, CMP #### [facility] [address] [place] [address] Dr. Krystle Heaton LYMPH # 1.6 103/ul Normal 1.2-3.8 [facility] Comment on above: Performed By: #### T 7, LIPA, TSH, AMADOU, CMP #### [facility] [address] [place] [address] Dr. Krystle Heaton Lymphocytes/100 WBC (Bld) 35.1 % Normal 20.5-60.0 [facility] Comment on above: Performed By: #### T 7, LIPA, TSH, AMADOU, CMP #### [facility] [address] [place] [address] Dr. Krystle Heaton MANUAL DIFF REQ NO Normal [facility] Comment on above: Performed By: #### T 7, LIPA, TSH, AMADOU, CMP #### [facility] [address] [place] [address] Dr. Krystle Heaton MCH (RBC) [Entitic mass] 36.6 pg Critically high 25.9-34.0 [facility] Comment on above: Performed By: #### T 7, LIPA, TSH, AMADOU, CMP #### [facility] [address] [place] [address] Dr. Krystle Heaton MCHC (RBC) [Mass/Vol] 33.5 g/dL Normal 29.9-35.2 [facility] Comment on above: Performed By: #### T 7, LIPA, TSH, AMADOU, CMP #### [facility] [address] [place] [address] Dr. Krystle Heaton MCV (RBC) [Entitic vol] 109.3 fL Critically high 80.0-94.0 [facility] Comment on above: Performed By: #### T 7, LIPA, TSH, AMADOU, CMP #### [facility] [address] [place] [address] Dr. Krystle Heaton MONO # 0.5 103/ul Normal 0.3-0.8 [facility] Comment on above: Performed By: #### T 7, LIPA, TSH, AMADOU, CMP #### [facility] [address] [place] [address] Dr. Krystle Heaton Monocytes/100 WBC (Bld) 11.0 % Normal 1.7-12.0 [facility] Comment on above: Performed By: #### T 7, LIPA, TSH, AMADOU, CMP #### [facility] [address] [place] [address] Dr. Krystle Heaton NEUT # 2.2 103/ul Normal 1.4-6.5 [facility] Comment on above: Performed By: #### T 7, LIPA, TSH, AMADOU, CMP #### [facility] [address] [place] [address] Dr. Krystle Heaton Neutrophils/100 WBC (Bld) 50.4 % Normal 43.0-75.0 [facility] Comment on above: Performed By: #### T 7, LIPA, TSH, AMADOU, CMP #### [facility] [address] [place] [address] Dr. Krystle Heaton Platelet mean volume (Bld) [Entitic vol] 10.9 fL Normal 9.5-13.5 [facility] Comment on above: Performed By: #### T 7, LIPA, TSH, AMADOU, CMP #### [facility] [address] [place] [address] Dr. Krystle Heaton PLT 158 103/ul Normal 150-450 [facility] Comment on above: Performed By: #### T 7, LIPA, TSH, AMADOU, CMP #### [facility] [address] [place] [address] Dr. Krystle Heaton RBC 3.22 106/ul Critically low 4.70-6.10 [facility] Comment on above: Performed By: #### T 7, LIPA, TSH, AMADOU, CMP #### [facility] [address] [place] [address] Dr. Krystle Heaton WBC 4.5 103/ul Normal 4.0-11.0 [facility] Comment on above: Performed By: #### T 7, LIPA, TSH, AMADOU, CMP #### [facility] [address] [place] [address] Dr. Krystle Heaton FERRITINon 04-18-2021 Ferritin [Mass/Vol] ng/mL Critically high 17.9-464.0 [facility] Comment on above: Performed By: #### H BSANS #### [facility] [address] [place] [address] Billy Devlin CBC AUTO DIFFon 04-13-2021 BASO # 0.0 103/ul Normal 0.0-0.1 [facility] Comment on above: Performed By: #### T 7, LIPA, TSH, AMADOU, CMP #### [facility] [address] [place] [address] Dr. Krystle Heaton Basophils/100 WBC (Bld) 0.6 % Normal 0.2-2.0 [facility] Comment on above: Performed By: #### T 7, LIPA, TSH, AMADOU, CMP #### [facility] [address] [place] [address] Dr. Krystle Heaton EO # 0.1 103/ul Normal 0.0-0.7 [facility] Comment on above: Performed By: #### T 7, LIPA, TSH, AMADOU, CMP #### [facility] [address] [place] [address] Dr. Krystle Heaton Eosinophils/100 WBC (Bld) 3.2 % Normal 0.9-7.0 [facility] Comment on above: Performed By: #### T 7, LIPA, TSH, AMADOU, CMP #### [facility] [address] [place] [address] Dr. Krystle Heaton Erythrocyte distribution width (RBC) [Ratio] 13.6 % Normal 11.0-15.0 [facility] Comment on above: Performed By: #### T 7, LIPA, TSH, AMADOU, CMP #### [facility] [address] [place] [address] Dr. Krystle Heaton Hematocrit (Bld) [Volume fraction] 35.3 % Critically low 42.0-54.0 [facility] Comment on above: Performed By: #### T 7, LIPA, TSH, AMADOU, CMP #### [facility] [address] [place] [address] Dr. Krystle Heaton Hemoglobin (Bld) [Mass/Vol] 11.9 g/dL Critically low 14.0-18.0 [facility] Comment on above: Performed By: #### T 7, LIPA, TSH, AMADOU, CMP #### [facility] [address] [place] [address] Dr. Krystle Heaton IG # 0.01 10e3/ul Normal 0.00-0.03 [facility] Comment on above: Performed By: #### T 7, LIPA, TSH, AMADOU, CMP #### [facility] [address] [address] [address] Krystle Heaton IG % 0.3 % Normal 0.0-0.5 [facility] Comment on above: Performed By: #### T 7, LIPA, TSH, AMADOU, CMP #### [facility] [address] [address] [address] Krystle Heaton LYMPH # 1.1 103/ul Critically low 1.2-3.8 [facility] Comment on above: Performed By: #### T 7, LIPA, TSH, AMADOU, CMP #### [facility] [address] [place] [address] Dr. Krystle Heaton Lymphocytes/100 WBC (Bld) 35.1 % Normal 20.5-60.0 [facility] Comment on above: Performed By: #### T 7, LIPA, TSH, AMADOU, CMP #### [facility] [address] [place] [address] Dr. Krystle Heaton MANUAL DIFF REQ NO Normal [facility] Comment on above: Performed By: #### T 7, LIPA, TSH, AMADOU, CMP #### [facility] [address] [place] [address] Dr. Krystle Heaton MCH (RBC) [Entitic mass] 37.1 pg Critically high 25.9-34.0 [facility] Comment on above: Performed By: #### T 7, LIPA, TSH, AMADOU, CMP #### [facility] [address] [place] [address] Dr. Krystle Heaton MCHC (RBC) [Mass/Vol] 33.7 g/dL Normal 29.9-35.2 [facility] Comment on above: Performed By: #### T 7, LIPA, TSH, AMADOU, CMP #### [facility] [address] [place] [address] Dr. Krystle Heaton MCV (RBC) [Entitic vol] 110.0 fL Critically high 80.0-94.0 [facility] Comment on above: Result Comment: macr ocytosis 3+ Performed By: #### T 7, LIPA, TSH, AMADOU, CMP #### [facility] [address] [place] [address] Dr. Krystle Heaton MONO # 0.3 103/ul Normal 0.3-0.8 [facility] Comment on above: Performed By: #### T 7, LIPA, TSH, AMADOU, CMP #### [facility] [address] [place] [address] Dr. Krystle Heaton Monocytes/100 WBC (Bld) 10.7 % Normal 1.7-12.0 [facility] Comment on above: Performed By: #### T 7, LIPA, TSH, AMADOU, CMP #### [facility] [address] [place] [address] Dr. Krystle Heaton NEUT # 1.5 103/ul Normal 1.4-6.5 [facility] Comment on above: Performed By: #### T 7, LIPA, TSH, AMADOU, CMP #### [facility] [address] [place] [address] Dr. Krystle Heaton Neutrophils/100 WBC (Bld) 50.1 % Normal 43.0-75.0 [facility] Comment on above: Performed By: #### T 7, LIPA, TSH, AMADOU, CMP #### [facility] [address] [place] [address] Dr. Krystle Heaton Platelet mean volume (Bld) [Entitic vol] 10.8 fL Normal 9.5-13.5 [facility] Comment on above: Performed By: #### T 7, LIPA, TSH, AMADOU, CMP #### [facility] [address] [place] [address] Dr. Krystle Heaton PLT 131 103/ul Critically low 150-450 [facility] Comment on above: Performed By: #### T 7, LIPA, TSH, AMADOU, CMP #### [facility] [address] [place] [address] Dr. Krystle Heaton RBC 3.21 106/ul Critically low 4.70-6.10 [facility] Comment on above: Performed By: #### T 7, LIPA, TSH, AMADOU, CMP #### [facility] [address] [place] [address] Dr. Krystle Heaton WBC 3.1 103/ul Critically low 4.0-11.0 [facility] Comment on above: Performed By: #### T 7, LIPA, TSH, AMADOU, CMP #### [facility] [address] [address] [address] Krystle Heaton FERRITINon 04-13-2021 Ferritin [Mass/Vol] ng/mL Critically high 17.9-464.0 [facility] Comment on above: Performed By: #### F ERR #### [facility] [address] [address] [address] Krystle Heaton Initial Visit (Gastroenterol ogy)on [...] 04-06-2021 BASO # 0.0 103/ul Normal 0.0-0.1 [facility] Comment on above: Performed By: #### H BSANS #### [facility] [address], [place] [address] Billy Devlin Basophils/100 WBC (Bld) 0.9 % Normal 0.2-2.0 [facility] Comment on above: Performed By: #### H BSANS #### [facility] [address], [place] [address] Billy Quita EO # 0.1 103/ul Normal 0.0-0.7 [facility] Comment on above: Performed By: #### H BSANS #### [facility] [address] [place] [address] Billy Quita Eosinophils/100 WBC (Bld) 3.0 % Normal 0.9-7.0 [facility] Comment on above: Performed By: #### H BSANS #### [facility] [address] [place] [address] Billy Quita Erythrocyte distribution width (RBC) [Ratio] 13.6 % Normal 11.0-15.0 [facility] Comment on above: Performed By: #### H ANJUMNS #### [facility] [address] [place] [address] Billy Quita Hematocrit (Bld) [Volume fraction] 39.1 % Critically low 42.0-54.0 [facility] Comment on above: Performed By: #### H ALEXANDER #### [facility] [address] [place] [address] Billy Quita Hemoglobin (Bld) [Mass/Vol] 13.1 g/dL Critically low 14.0-18.0 [facility] Comment on above: Performed By: #### H BSANS #### [facility] [address] [place] [address] Billy Quita IG # 0.02 10e3/ul Normal 0.00-0.03 [facility] Comment on above: Performed By: #### H BSANS #### [facility] [address] [place] [address] Billy Quita IG % 0.5 % Normal 0.0-0.5 [facility] Comment on above: Performed By: #### H BSANS #### [facility] [address] [place] [address] Billy Quita LYMPH # 1.1 103/ul Critically low 1.2-3.8 [facility] Comment on above: Performed By: #### H BSASUZANNE #### [facility] [address] [place] [address] Billy Quita Lymphocytes/100 WBC (Bld) 26.7 % Normal 20.5-60.0 [facility] Comment on above: Performed By: #### H ALEXANDER #### [facility] [address] [place] [address] Billy Devlin MANUAL DIFF REQ NO Normal The [facility] Comment on above: Performed By: #### H ALEXANDER #### [facility] [address] [place] [address] Billycarrillo Devlin MCH (RBC) [Entitic mass] 36.7 pg Critically high 25.9-34.0 [facility] Comment on above: Performed By: #### H ALEXANDER #### [facility] [address] [place] [address] Billycarrillo Devlin MCHC (RBC) [Mass/Vol] 33.5 g/dL Normal 29.9-35.2 [facility] Comment on above: Result Comment: macr ocytosis Performed By: #### H ALEXANDER #### [facility] [address] [place] [address] Billy Quita MCV (RBC) [Entitic vol] 109.5 fL Critically high 80.0-94.0 [facility] Comment on above: Performed By: #### H ALEXANDER #### [facility] [address] [place] [address] Billy Quita MONO # 0.4 103/ul Normal 0.3-0.8 [facility] Comment on above: Performed By: #### H ALEXANDER #### [facility] [address] [place] [address] Billy Quita Monocytes/100 WBC (Bld) 8.7 % Normal 1.7-12.0 [facility] Comment on above: Performed By: #### H ALEXANDER #### [facility] [address] [place] [address] Billy Quita NEUT # 2.6 103/ul Normal 1.4-6.5 [facility] Comment on above: Performed By: #### H ALEXANDER #### [facility] [address] [place] [address] Billy Devlin Neutrophils/100 WBC (Bld) 60.2 % Normal 43.0-75.0 [facility] Comment on above: Performed By: #### H ALEXANDER #### [facility] [address] [place] [address] Billy Devlin Platelet mean volume (Bld) [Entitic vol] 11.1 fL Normal 9.5-13.5 [facility] Comment on above: Performed By: #### H ALEXANDER #### [facility] [address] [place] [address] Billy Devlin PLT 162 103/ul Normal 150-450 [facility] Comment on above: Performed By: #### H ALEXANDER #### [facility] [address] [place] [address] Billy Devlin RBC 3.57 106/ul Critically low 4.70-6.10 [facility] Comment on above: Performed By: #### H ALEXANDER #### [facility] [address] [place] [address] Billy Devlin WBC 4.3 103/ul Normal 4.0-11.0 [facility] Comment on above: Performed By: #### H ALEXANDER #### [facility] [address] [place] [address] Billy Devlin FERRITINon 04-06-2021 Ferritin [Mass/Vol] ng/mL Critically high 17.9-464.0 [facility] Comment on above: Performed By: #### T 7, LIPA, TSH, AMADOU, CMP #### [facility] [address] [place] [address] Dr. Krystle Heaton FREE T4on 04-06-2021 Free T4 [Mass/Vol] 0.73 ng/dL Critically low 0.78-2.19 [facility] Comment on above: Performed By: #### T 7, LIPA, TSH, AMADOU, CMP #### [facility] [address] [place] [address] Dr. Krystle Heaton IRON AND TIBCon 04-06-2021 % SATURATION 54.8 % Normal [facility] Comment on above: Performed By: #### T 7, LIPA, TSH, AMADOU, CMP #### [facility] [address] [address] [address] Krystle Heaton Iron [Mass/Vol] 161.0 ug/dL Normal 49.0-181.0 [facility] Comment on above: Performed By: #### T 7, LIPA, TSH, AMADOU, CMP #### [facility] [address] [place] [address] Dr. Krystle Heaton TIBC DIRECT 294.0 ug/dL Normal 261.0-497.0 [facility] Comment on above: Performed By: #### T 7, LIPA, TSH, AMADOU, CMP #### [facility] [address] [place] [address] Dr. Krystle Heaton PROF 14(COMP METB)on 021 Albumin [Mass/Vol] 3.7 g/dL Normal 3.5-5.0 [facility] Comment on above: Performed By: #### T 7, LIPA, TSH, AMADOU, CMP #### [facility] [address] [place] [address] Dr. Krystle Heaton Albumin/Globulin [Mass ratio] 1.0 {ratio} Normal [facility] Comment on above: Performed By: #### T 7, LIPA, TSH, AMADOU, CMP #### [facility] [address] [place] [address] Dr. Krystle Heaton ALP [Catalytic activity/Vol] 83 U/L Normal 38-126 [facility] Comment on above: Performed By: #### T 7, LIPA, TSH, AMADOU, CMP #### [facility] [address] [place] [address] Dr. Krystle Heaton ALT [Catalytic activity/Vol] 140 U/L Critically high 21-72 [facility] Comment on above: Performed By: #### T 7, LIPA, TSH, AMADOU, CMP #### [facility] [address] [place] [address] Dr. Krystle Heaton Anion gap [Moles/Vol] 15.8 mmol/L Normal [facility] Comment on above: Performed By: #### T 7, LIPA, TSH, AMADOU, CMP #### [facility] [address] [place] [address] Dr. Krystle Heaton AST [Catalytic activity/Vol] 186 U/L Critically high 17-59 [facility] Comment on above: Performed By: #### T 7, LIPA, TSH, AMADOU, CMP #### [facility] [address] [place] [address] Dr. Krystle Heaton Bilirubin [Mass/Vol] 0.5 mg/dL Normal 0.2-1.3 [facility] Comment on above: Performed By: #### T 7, LIPA, TSH, AMADOU, CMP #### [facility] [address] [place] [address] Dr. Krystle Heaton Calcium [Mass/Vol] 9.0 mg/dL Normal 8.4-10.2 [facility] Comment on above: Performed By: #### T 7, LIPA, TSH, AMADOU, CMP #### [facility] [address] [place] [address] Dr. Krystle Heaton Chloride [Moles/Vol] 101 mmol/L Normal 98-107 [facility] Comment on above: Performed By: #### T 7, LIPA, TSH, AMADOU, CMP #### [facility] [address] [place] [address] Dr. Krystle Heaton CO2 [Moles/Vol] 25.8 mmol/L Normal 22.0-30.0 [facility] Comment on above: Performed By: #### T 7, LIPA, TSH, AMADOU, CMP #### [facility] [address] [place] [address] Dr. Krytsle Heaton Creatinine [Mass/Vol] 1.07 mg/dL Normal 0.66-1.25 [facility] Comment on above: Performed By: #### T 7, LIPA, TSH, AMADOU, CMP #### [facility] [address] [place] [address] Dr. Krystle Heaton EGFR-AF JORDANIAN >60 Normal >=60 [facility] Comment on above: Performed By: #### T 7, LIPA, TSH, AMADOU, CMP #### [facility] [address] [place] [address] Dr. Krystle Heaton EGFR-NON AF JORDANIAN >60 Normal >=60 [facility] Comment on above: Performed By: #### T 7, LIPA, TSH, AMADOU, CMP #### [facility] [address] [place] [address] Dr. Krystle Heaton Globulin (S) [Mass/Vol] 3.7 g/dL Normal [facility] Comment on above: Performed By: #### T 7, LIPA, TSH, AMADOU, CMP #### [facility] [address] [place] [address] Dr. Krystle Heaton Glucose [Mass/Vol] 104 mg/dL Normal 74-106 [facility] Comment on above: Performed By: #### T 7, LIPA, TSH, AMADOU, CMP #### [facility] [address] [place] [address] Dr. Krystle Heaton Potassium [Moles/Vol] 4.6 mmol/L Normal 3.4-5.0 [facility] Comment on above: Performed By: #### T 7, LIPA, TSH, AMADOU, CMP #### [facility] [address] [place] [address] Dr. Krystle Heaton Protein [Mass/Vol] 7.4 g/dL Normal 6.1-8.2 [facility] Comment on above: Performed By: #### T 7, LIPA, TSH, AMADOU, CMP #### [facility] [address] [place] [address] Dr. Krystle Heaton Sodium [Moles/Vol] 138 mmol/L Normal 137-145 [facility] Comment on above: Performed By: #### T 7, LIPA, TSH, AMADOU, CMP #### [facility] [address] [place] [address] Dr. Krystle Heaton Urea nitrogen [Mass/Vol] 10.0 mg/dL Normal 9.0-20.0 [facility] Comment on above: Performed By: #### T 7, LIPA, TSH, AMADOU, CMP #### [facility] [address] [place] [address] Dr. Krystle Heaton Urea nitrogen/Creatinine [Mass ratio] 9.3 mg/mg Normal [facility] Comment on above: Performed By: #### T 7, LIPA, TSH, AMADOU, CMP #### [facility] [address] [place] [address] Dr. Krystle Heaton TSHon 04-06-2021 TSH 1.945 uIU/mL Normal 0.470-4.680 [facility] Comment on above: Performed By: #### T 7, LIPA, TSH, AMADOU, CMP #### [facility] [address] [place] [address] Dr. Krystle Heaton TSH RANGE SEE BELOW Normal [facility] Comment on above: Result Comment: <0.3 4 UIU/ml HYPERTHYROID 0.34-5.60 UIU/ml EUTHYROID >5.60 UIU/ml HYPOTHYROID Performed By: #### T 7, LIPA, TSH, AMADOU, CMP #### [facility] [address] [place] [address] Dr. Krsytle Heaton CBC AUTO DIFFon 03-30-2021 BASO # 0.0 103/ul Normal 0.0-0.1 [facility] Comment on above: Performed By: #### T 7, LIPA, TSH, AMADOU, CMP #### [facility] [address] [place] [address] Dr. Krystle Heaton Basophils/100 WBC (Bld) 0.8 % Normal 0.2-2.0 [facility] Comment on above: Performed By: #### T 7, LIPA, TSH, AMADOU, CMP #### [facility] [address] [place] [address] Dr. Krystle Heaton EO # 0.1 103/ul Normal 0.0-0.7 [facility] Comment on above: Performed By: #### T 7, LIPA, TSH, AMADOU, CMP #### [facility] [address] [place] [address] Dr. Krystle Heaton Eosinophils/100 WBC (Bld) 3.0 % Normal 0.9-7.0 [facility] Comment on above: Performed By: #### T 7, LIPA, TSH, AMADOU, CMP #### [facility] [address] [place] [address] Dr. Krystle Heaton Erythrocyte distribution width (RBC) [Ratio] 13.9 % Normal 11.0-15.0 [facility] Comment on above: Performed By: #### T 7, LIPA, TSH, AMADOU, CMP #### [facility] [address] [place] [address] Dr. Krystle Heaton Hematocrit (Bld) [Volume fraction] 40.4 % Critically low 42.0-54.0 [facility] Comment on above: Performed By: #### T 7, LIPA, TSH, AMADOU, CMP #### [facility] [address] [place] [address] Dr. Krystle Heaton Hemoglobin (Bld) [Mass/Vol] 13.5 g/dL Critically low 14.0-18.0 [facility] Comment on above: Performed By: #### T 7, LIPA, TSH, AMADOU, CMP #### [facility] [address] [place] [address] Dr. Krystle Heaton IG # 0.01 10e3/ul Normal 0.00-0.03 [facility] Comment on above: Performed By: #### T 7, LIPA, TSH, AMADOU, CMP #### [facility] [address] [place] [address] Dr. Krystle Heaton IG % 0.3 % Normal 0.0-0.5 [facility] Comment on above: Performed By: #### T 7, LIPA, TSH, AMADOU, CMP #### [facility] [address] [place] [address] Dr. Krystle Heaton LYMPH # 1.2 103/ul Normal 1.2-3.8 [facility] Comment on above: Performed By: #### T 7, LIPA, TSH, AMADOU, CMP #### [facility] [address] [place] [address] Dr. Krystle Heaton Lymphocytes/100 WBC (Bld) 32.7 % Normal 20.5-60.0 [facility] Comment on above: Performed By: #### T 7, LIPA, TSH, AMADOU, CMP #### [facility] [address] [place] [address] Dr. Krystle Heaton MANUAL DIFF REQ NO Normal [facility] Comment on above: Performed By: #### T 7, LIPA, TSH, AMADOU, CMP #### [facility] [address] [place] [address] Dr. Krystle Heaton MCH (RBC) [Entitic mass] 36.5 pg Critically high 25.9-34.0 [facility] Comment on above: Performed By: #### T 7, LIPA, TSH, AMADOU, CMP #### [facility] [address] [place] [address] Dr. Krystle Heaton MCHC (RBC) [Mass/Vol] 33.4 g/dL Normal 29.9-35.2 [facility] Comment on above: Result Comment: MACR OCYTOSIS PRESENT Performed By: #### T 7, LIPA, TSH, AMADOU, CMP #### [facility] [address] [place] [address] Dr. Krystle Heaton MCV (RBC) [Entitic vol] 109.2 fL Critically high 80.0-94.0 [facility] Comment on above: Performed By: #### T 7, LIPA, TSH, AMADOU, CMP #### [facility] [address] [place] [address] Dr. Krystle Heaton MONO # 0.4 103/ul Normal 0.3-0.8 [facility] Comment on above: Performed By: #### T 7, LIPA, TSH, AMADOU, CMP #### [facility] [address] [place] [address] Dr. Krystle Heaton Monocytes/100 WBC (Bld) 11.4 % Normal 1.7-12.0 [facility] Comment on above: Performed By: #### T 7, LIPA, TSH, AMADOU, CMP #### [facility] [address] [place] [address] Dr. Krystle Heaton NEUT # 1.9 103/ul Normal 1.4-6.5 [facility] Comment on above: Performed By: #### T 7, LIPA, TSH, AMADOU, CMP #### [facility] [address] [place] [address] Dr. Krystle Heaton Neutrophils/100 WBC (Bld) 51.8 % Normal 43.0-75.0 [facility] Comment on above: Performed By: #### T 7, LIPA, TSH, AMADOU, CMP #### [facility] [address] [place] [address] Dr. Krystle Heaton Platelet mean volume (Bld) [Entitic vol] 10.8 fL Normal 9.5-13.5 [facility] Comment on above: Performed By: #### T 7, LIPA, TSH, AMADOU, CMP #### [facility] [address] [place] [address] Dr. Krystle Heaton PLT 184 103/ul Normal 150-450 [facility] Comment on above: Performed By: #### T 7, LIPA, TSH, AMADOU, CMP #### [facility] [address] [place] [address] Dr. Krystle Heaton RBC 3.70 106/ul Critically low 4.70-6.10 [facility] Comment on above: Performed By: #### T 7, LIPA, TSH, AMADOU, CMP #### [facility] [address] [place] [address] Dr. Krystle Heaton WBC 3.6 103/ul Critically low 4.0-11.0 The [facility] Comment on above: Performed By: #### T 7, LIPA, TSH, AMADOU, CMP #### [facility] [address] [place] [address] Dr. Krystle Heaton FERRITINon 03-30-2021 Ferritin [Mass/Vol] ng/mL Critically high 17.9-464.0 [facility] Comment on above: Performed By: #### F ERR #### [facility] [address] [place] [address] Dr. Krystle Heaton FREE T4on 03-30-2021 Free T4 [Mass/Vol] 0.83 ng/dL Normal 0.78-2.19 [facility] Comment on above: Performed By: #### F ERR #### [facility] [address] [address] [address] Krystle Heaton IRON AND TIBCon 03-30-2021 % SATURATION 78.5 % Normal [facility] Comment on above: Performed By: #### F ERR #### [facility] [address] [address] [address] Krystle Heaton Iron [Mass/Vol] 230.0 ug/dL Critically high 49.0-181.0 [facility] Comment on above: Performed By: #### F ERR #### [facility] [address] [place] [address] Dr. Krystle Heaton TIBC DIRECT 293.0 ug/dL Normal 261.0-497.[address] [facility] Comment on above: Performed By: #### F ERR #### [facility] [address] [place] [address] Dr. Krystle Heaton PROF 14(COMP METB)on 021 Albumin [Mass/Vol] 3.8 g/dL Normal 3.5-5.0 [facility] Comment on above: Performed By: #### T 7, LIPA, TSH, AMADOU, CMP #### [facility] [address] [place] [address] Dr. Krystle Heaton Albumin/Globulin [Mass ratio] 1.0 {ratio} Normal [facility] Comment on above: Performed By: #### T 7, LIPA, TSH, AMADOU, CMP #### [facility] [address] [place] [address] Dr. Krystle Heaton ALP [Catalytic activity/Vol] 90 U/L Normal 38-126 [facility] Comment on above: Performed By: #### T 7, LIPA, TSH, AMADOU, CMP #### [facility] [address] [place] [address] Dr. Krystle Heaton ALT [Catalytic activity/Vol] 149 U/L Critically high 21-72 [facility] Comment on above: Performed By: #### T 7, LIPA, TSH, AMADOU, CMP #### [facility] [address] [place] [address] Dr. Krystle Heaton Anion gap [Moles/Vol] 16.0 mmol/L Normal [facility] Comment on above: Performed By: #### T 7, LIPA, TSH, AMADOU, CMP #### [facility] [address] [address] [address] Krystle Heaton AST [Catalytic activity/Vol] 187 U/L Critically high 17-59 [facility] Comment on above: Performed By: #### T 7, LIPA, TSH, AMADOU, CMP #### [facility] [address] [address] [address] Krystle Heaton Bilirubin [Mass/Vol] 0.6 mg/dL Normal 0.2-1.3 [facility] Comment on above: Performed By: #### T 7, LIPA, TSH, AMADOU, CMP #### [facility] [address] [place] [address] Dr. Krystle Heaton Calcium [Mass/Vol] 9.2 mg/dL Normal 8.4-10.2 [facility] Comment on above: Performed By: #### T 7, LIPA, TSH, AMADOU, CMP #### [facility] [address] [address] [address] Krystle Heaton Chloride [Moles/Vol] 100 mmol/L Normal 98-107 [facility] Comment on above: Performed By: #### T 7, LIPA, TSH, AMADOU, CMP #### [facility] [address] [address] [address] Krystle Heaton CO2 [Moles/Vol] 26.2 mmol/L Normal 22.0-30.0 [facility] Comment on above: Performed By: #### T 7, LIPA, TSH, AMADOU, CMP #### [facility] [address] [address] [address] Krystle Heaton Creatinine [Mass/Vol] 1.07 mg/dL Normal 0.66-1.25 [facility] Comment on above: Performed By: #### T 7, LIPA, TSH, AMADOU, CMP #### [facility] [address] [address] [address] Krystle Heaton EGFR-AF JORDANIAN >60 Normal >=60 [facility] Comment on above: Performed By: #### T 7, LIPA, TSH, AMADOU, CMP #### [facility] [address] [place] [address] Dr. Krystle Heaton EGFR-NON AF JORDANIAN >60 Normal >=60 [facility] Comment on above: Performed By: #### T 7, LIPA, TSH, AMADOU, CMP #### [facility] [address] [place] [address] Dr. Krystle Heaton Globulin (S) [Mass/Vol] 3.8 g/dL Normal [facility] Comment on above: Performed By: #### T 7, LIPA, TSH, AMADOU, CMP #### [facility] [address] [place] [address] Dr. Krystle Heaton Glucose [Mass/Vol] 110 mg/dL Critically high 74-106 [facility] [place] Comment on above: Performed By: #### T 7, LIPA, TSH, AMADOU, CMP #### [facility] [address] [place] [address] Dr. Krystle Heaton Potassium [Moles/Vol] 4.2 mmol/L Normal 3.4-5.0 [facility] Comment on above: Performed By: #### T 7, LIPA, TSH, AMADOU, CMP #### [facility] [address] [place] [address] Dr. Krystle Heaton Protein [Mass/Vol] 7.6 g/dL Normal 6.1-8.2 [facility] Comment on above: Performed By: #### T 7, LIPA, TSH, AMADOU, CMP #### [facility] [address] [place] [address] Dr. Krystle Heaton Sodium [Moles/Vol] 138 mmol/L Normal 137-145 [facility] Comment on above: Performed By: #### T 7, LIPA, TSH, AMADOU, CMP #### [facility] [address] [place] [address] Dr. Krystle Heaton Urea nitrogen [Mass/Vol] 9.0 mg/dL Normal 9.0-20.0 [facility] Comment on above: Performed By: #### T 7, LIPA, TSH, AMADOU, CMP #### [facility] [address] [place] [address] Dr. Krystle Heaton Urea nitrogen/Creatinine [Mass ratio] 8.4 mg/mg Normal [facility] Comment on above: Performed By: #### T 7, LIPA, TSH, AMADOU, CMP #### [facility] [address] [place] [address] Dr. Krystle Heaton TSHon 03-30-2021 TSH 1.030 uIU/mL Normal 0.470-4.[address] [facility] Comment on above: Performed By: #### T 7, LIPA, TSH, AMADOU, CMP #### [facility] [address] [place] [address] Dr. Krystle Heaton TSH RANGE SEE BELOW Normal [facility] Comment on above: Result Comment: <0.3 4 UIU/ml HYPERTHYROID 0.34-5.60 UIU/ml EUTHYROID >5.60 UIU/ml HYPOTHYROID Performed By: #### T 7, LIPA, TSH, AMADOU, CMP #### [facility] [address] [place] [address] Dr. Krystle Heaton CBC AUTO DIFFon 03-22-2021 BASO # 0.0 103/ul Normal 0.0-0.1 [facility] Comment on above: Performed By: #### T 7, LIPA, TSH, AMADOU, CMP #### [facility] [address] [place] [address] Dr. Krystle Heaton Basophils/100 WBC (Bld) 0.6 % Normal 0.2-2.0 [facility] Comment on above: Performed By: #### T 7, LIPA, TSH, AMADOU, CMP #### [facility] [address] [place] [address] Dr. Krystle Heaton EO # 0.1 103/ul Normal 0.0-0.7 [facility] Comment on above: Performed By: #### T 7, LIPA, TSH, AMADOU, CMP #### [facility] [address] [place] [address] Dr. Krystle Heaton Eosinophils/100 WBC (Bld) 2.1 % Normal 0.9-7.0 [facility] Comment on above: Performed By: #### T 7, LIPA, TSH, AMADOU, CMP #### [facility] [address] [place] [address] Dr. Krystle Heaton Erythrocyte distribution width (RBC) [Ratio] 12.7 % Normal 11.0-15.0 [facility] Comment on above: Performed By: #### T 7, LIPA, TSH, AMADOU, CMP #### [facility] [address] [place] [address] Dr. Krystle Heaton Hematocrit (Bld) [Volume fraction] 37.5 % Critically low 42.0-54.0 [facility] Comment on above: Performed By: #### T 7, LIPA, TSH, AMADOU, CMP #### [facility] [address] [place] [address] Dr. Krystle Heaton Hemoglobin (Bld) [Mass/Vol] 13.1 g/dL Critically low 14.0-18.0 [facility] Comment on above: Performed By: #### T 7, LIPA, TSH, AMADOU, CMP #### [facility] [address] [place] [address] Dr. Krystle Heaton IG # 0.01 10e3/ul Normal 0.00-0.03 [facility] Comment on above: Performed By: #### T 7, LIPA, TSH, AMADOU, CMP #### [facility] [address] [place] [address] Dr. Krystle Heaton IG % 0.3 % Normal 0.0-0.5 [facility] Comment on above: Performed By: #### T 7, LIPA, TSH, AMADOU, CMP #### [facility] [address] [place] [address] Dr. Krystle Heaton LYMPH # 1.2 103/ul Normal 1.2-3.8 [facility] Comment on above: Performed By: #### T 7, LIPA, TSH, AMADOU, CMP #### [facility] [address] [place] [address] Dr. Krystle Heaton Lymphocytes/100 WBC (Bld) 35.7 % Normal 20.5-60.0 [facility] Comment on above: Performed By: #### T 7, LIPA, TSH, AMADOU, CMP #### [facility] [address] [place] [address] Dr. Krystle Heaton MANUAL DIFF REQ NO Normal [facility] Comment on above: Performed By: #### T 7, LIPA, TSH, AMADOU, CMP #### [facility] [address] [place] [address] Dr. Krystle Heaton MCH (RBC) [Entitic mass] 37.0 pg Critically high 25.9-34.0 [facility] Comment on above: Performed By: #### T 7, LIPA, TSH, AMADOU, CMP #### [facility] [address] [place] [address] Dr. Krystle Heaton MCHC (RBC) [Mass/Vol] 34.9 g/dL Normal 29.9-35.2 [facility] Comment on above: Performed By: #### T 7, LIPA, TSH, AMADOU, CMP #### [facility] [address] [place] [address] Dr. Krystle Heaton MCV (RBC) [Entitic vol] 105.9 fL Critically high 80.0-94.0 [facility] Comment on above: Performed By: #### T 7, LIPA, TSH, AMADOU, CMP #### [facility] [address] [place] [address] Dr. Krystle eHaton MONO # 0.2 103/ul Critically low 0.3-0.8 The [facility] Comment on above: Performed By: #### T 7, LIPA, TSH, AMADOU, CMP #### [facility] [address] [place] [address] Dr. Krystle Heaton Monocytes/100 WBC (Bld) 6.8 % Normal 1.7-12.0 [facility] Comment on above: Performed By: #### T 7, LIPA, TSH, AMADOU, CMP #### [facility] [address] [place] [address] Dr. Krystle Heaton NEUT # 1.8 103/ul Normal 1.4-6.5 [facility] Comment on above: Performed By: #### T 7, LIPA, TSH, AMADOU, CMP #### [facility] [address] [place] [address] Dr. Krystle Heaton Neutrophils/100 WBC (Bld) 54.5 % Normal 43.0-75.0 [facility] Comment on above: Performed By: #### T 7, LIPA, TSH, AMADOU, CMP #### [facility] [address] [address] [address] Krystle Heaton Platelet mean volume (Bld) [Entitic vol] 10.4 fL Normal 9.5-13.5 [facility] Comment on above: Performed By: #### T 7, LIPA, TSH, AMADOU, CMP #### [facility] [address] [place] [address] Dr. Krystle Heaton PLT 126 103/ul Critically low 150-450 [facility] Comment on above: Performed By: #### T 7, LIPA, TSH, AMADOU, CMP #### [facility] [address] [place] [address] Dr. Krystle Heaton RBC 3.54 106/ul Critically low 4.70-6.10 [facility] Comment on above: Performed By: #### T 7, LIPA, TSH, AMADOU, CMP #### [facility] [address] [place] [address] Dr. Krystle Heaton WBC 3.4 103/ul Critically low 4.0-11.0 The [facility] Comment on above: Performed By: #### T 7, LIPA, TSH, AMADOU, CMP #### [facility] [address] [place] [address] Dr. Krystle Heaton FERRITINon 03-22-2021 Ferritin [Mass/Vol] ng/mL Critically high 17.9-464.0 [facility] Comment on above: Performed By: #### T 7, LIPA, TSH, AMADOU, CMP #### [facility] [address] [place] [address] Dr. Krystle Heaton FREE T4on 03-22-2021 Free T4 [Mass/Vol] 0.78 ng/dL Normal 0.78-2.19 [facility] Comment on above: Performed By: #### T 7, LIPA, TSH, AMADOU, CMP #### [facility] [address] [place] [address] Dr. Krystle Heaton IRON AND TIBCon 03-22-2021 % SATURATION 106.0 % Normal [facility] Comment on above: Performed By: #### T 7, LIPA, TSH, AMADOU, CMP #### [facility] [address] [place] [address] Dr. Krystle Heaton Iron [Mass/Vol] 233.0 ug/dL Critically high 49.0-181.0 [facility] Comment on above: Performed By: #### T 7, LIPA, TSH, AMADOU, CMP #### [facility] [address] [place] [address] Dr. Krystle Heaton TIBC DIRECT 220.0 ug/dL Critically low 261.0-497.0 [facility] Comment on above: Performed By: #### T 7, LIPA, TSH, AMADOU, CMP #### [facility] [address] [place] [address] Dr. Krystle Heaton PROF 14(COMP METB)on 021 Albumin [Mass/Vol] 3.5 g/dL Normal 3.5-5.0 [facility] Comment on above: Performed By: #### T 7, LIPA, TSH, AMADOU, CMP #### [facility] [address] [place] [address] Dr. Krystle Heaton Albumin/Globulin [Mass ratio] 1.0 {ratio} Normal [facility] Comment on above: Performed By: #### T 7, LIPA, TSH, AMADOU, CMP #### [facility] [address] [place] [address] Dr. Krystle Heaton ALP [Catalytic activity/Vol] 77 U/L Normal 38-126 [facility] Comment on above: Performed By: #### T 7, LIPA, TSH, AMADOU, CMP #### [facility] [address] [place] [address] Dr. Krystle Heaton ALT [Catalytic activity/Vol] 95 U/L Critically high 21-72 [facility] Comment on above: Performed By: #### T 7, LIPA, TSH, AMADOU, CMP #### [facility] [address] [address] [address] Krystle Heaton Anion gap [Moles/Vol] 17.3 mmol/L Normal [facility] Comment on above: Performed By: #### T 7, LIPA, TSH, AMADOU, CMP #### [facility] [address] [address] [address] Krystle Heaton AST [Catalytic activity/Vol] 161 U/L Critically high 17-59 [facility] Comment on above: Performed By: #### T 7, LIPA, TSH, AMADOU, CMP #### [facility] [address] [place] [address] Dr. Krystle Heaton Bilirubin [Mass/Vol] 0.8 mg/dL Normal 0.2-1.3 [facility] Comment on above: Performed By: #### T 7, LIPA, TSH, AMADOU, CMP #### [facility] [address] [place] [address] Dr. Krystle Heaton Calcium [Mass/Vol] 8.5 mg/dL Normal 8.4-10.2 [facility] Comment on above: Performed By: #### T 7, LIPA, TSH, AMADOU, CMP #### [facility] [address] [place] [address] Dr. Krystle Heaton Chloride [Moles/Vol] 101 mmol/L Normal 98-107 [facility] Comment on above: Performed By: #### T 7, LIPA, TSH, AMADOU, CMP #### [facility] [address] [place] [address] Dr. Krystle Heaton CO2 [Moles/Vol] 22.6 mmol/L Normal 22.0-30.0 The [facility] Comment on above: Performed By: #### T 7, LIPA, TSH, AMADOU, CMP #### [facility] [address] [place] [address] Dr. Krystle Heaton Creatinine [Mass/Vol] 0.98 mg/dL Normal 0.66-1.25 [facility] Comment on above: Performed By: #### T 7, LIPA, TSH, AMADOU, CMP #### [facility] [address] [place] [address] Dr. Krystle Heaton EGFR-AF JORDANIAN >60 Normal >=60 [facility] Comment on above: Performed By: #### T 7, LIPA, TSH, AMADOU, CMP #### [facility] [address] [place] [address] Dr. Krystle Heaton EGFR-NON AF JORDANIAN >60 Normal >=60 [facility] Comment on above: Performed By: #### T 7, LIPA, TSH, AMADOU, CMP #### [facility] [address] [place] [address] Dr. Krystle Heaton Globulin (S) [Mass/Vol] 3.4 g/dL Normal [facility] Comment on above: Performed By: #### T 7, LIPA, TSH, AMADOU, CMP #### [facility] [address] [place] [address] Dr. Krystle Heaton Glucose [Mass/Vol] 103 mg/dL Normal 74-106 [facility] Comment on above: Performed By: #### T 7, LIPA, TSH, AMADOU, CMP #### [facility] [address] [place] [address] Dr. Krystle Heaton Potassium [Moles/Vol] 3.9 mmol/L Normal 3.4-5.0 [facility] Comment on above: Performed By: #### T 7, LIPA, TSH, AMADOU, CMP #### [facility] [address] [place] [address] Dr. Krystle Heaton Protein [Mass/Vol] 6.9 g/dL Normal 6.1-8.2 [facility] Comment on above: Performed By: #### T 7, LIPA, TSH, AMADOU, CMP #### [facility] [address] [place] [address] Dr. Krystle Heaton Sodium [Moles/Vol] 137 mmol/L Normal 137-145 [facility] Comment on above: Performed By: #### T 7, LIPA, TSH, AMADOU, CMP #### [facility] [address] [place] [address] Dr. Krystle Heaton Urea nitrogen [Mass/Vol] 8.0 mg/dL Critically low 9.0-20.0 [facility] Comment on above: Performed By: #### T 7, LIPA, TSH, AMADOU, CMP #### [facility] [address] [place] [address] Dr. Krystle Heaton Urea nitrogen/Creatinine [Mass ratio] 8.2 mg/mg Normal [facility] Comment on above: Performed By: #### T 7, LIPA, TSH, AMADOU, CMP #### [facility] [address] [place] [address] Dr. Krystle Heaton TSHon 03-22-2021 TSH 2.059 uIU/mL Normal 0.470-4.[address] [facility] Comment on above: Performed By: #### T 7, LIPA, TSH, AMADOU, CMP #### [facility] [address] [place] [address] Dr. Krystle Heaton TSH RANGE SEE BELOW Normal [facility] Comment on above: Result Comment: <0.3 4 UIU/ml HYPERTHYROID 0.34-5.60 UIU/ml EUTHYROID >5.60 UIU/ml HYPOTHYROID Performed By: #### T 7, LIPA, TSH, AMADOU, CMP #### [facility] [address] [place] [address] Dr. Krystle Heaton CBC AUTO DIFFon 03-17-2021 BASO # 0.0 103/ul Normal 0.0-0.1 [facility] Comment on above: Performed By: #### T 7, LIPA, TSH, AMADOU, CMP #### [facility] [address] [place] [address] Dr. Krystle Heaton Basophils/100 WBC (Bld) 0.3 % Normal 0.2-2.0 [facility] Comment on above: Performed By: #### T 7, LIPA, TSH, AMADOU, CMP #### [facility] [address] [place] [address] Dr. Krystle Heaton EO # 0.1 103/ul Normal 0.0-0.7 [facility] Comment on above: Performed By: #### T 7, LIPA, TSH, AMADOU, CMP #### [facility] [address] [place] [address] Dr. Krystle Heaton Eosinophils/100 WBC (Bld) 1.8 % Normal 0.9-7.0 [facility] Comment on above: Performed By: #### T 7, LIPA, TSH, AMADOU, CMP #### [facility] [address] [place] [address] Dr. Krystle Heaton Erythrocyte distribution width (RBC) [Ratio] 12.5 % Normal 11.0-15.0 [facility] Comment on above: Performed By: #### T 7, LIPA, TSH, AMADOU, CMP #### [facility] [address] [place] [address] Dr. Krystle Heaton Hematocrit (Bld) [Volume fraction] 40.9 % Critically low 42.0-54.0 [facility] Comment on above: Performed By: #### T 7, LIPA, TSH, AMADOU, CMP #### [facility] [address] [place] [address] Dr. Krystle Heaton Hemoglobin (Bld) [Mass/Vol] 14.1 g/dL Normal 14.0-18.0 [facility] Comment on above: Performed By: #### T 7, LIPA, TSH, AMADOU, CMP #### [facility] [address] [place] [address] Dr. Krystle Heaton IG # 0.01 10e3/ul Normal 0.00-0.03 [facility] Comment on above: Performed By: #### T 7, LIPA, TSH, AMADOU, CMP #### [facility] [address] [place] [address] Dr. Krystle Heaton IG % 0.3 % Normal 0.0-0.5 [facility] Comment on above: Performed By: #### T 7, LIPA, TSH, AMADOU, CMP #### [facility] [address] [place] [address] Dr. Krystle Heaton LYMPH # 1.3 103/ul Normal 1.2-3.8 [facility] Comment on above: Performed By: #### T 7, LIPA, TSH, AMADOU, CMP #### [facility] [address] [place] [address] Dr. Krystle Heaton Lymphocytes/100 WBC (Bld) 41.1 % Normal 20.5-60.0 [facility] Comment on above: Performed By: #### T 7, LIPA, TSH, AMADOU, CMP #### [facility] [address] [place] [address] Dr. Krystle Heaton MANUAL DIFF REQ NO Normal [facility] Comment on above: Performed By: #### T 7, LIPA, TSH, AMADOU, CMP #### [facility] [address] [place] [address] Dr. Krystle Heaton MCH (RBC) [Entitic mass] 36.3 pg Critically high 25.9-34.0 [facility] Comment on above: Performed By: #### T 7, LIPA, TSH, AMADOU, CMP #### [facility] [address] [place] [address] Dr. Krystle Heaton MCHC (RBC) [Mass/Vol] 34.5 g/dL Normal 29.9-35.2 [facility] Comment on above: Performed By: #### T 7, LIPA, TSH, AMADOU, CMP #### [facility] [address] [place] [address] Dr. Krystle Heaton MCV (RBC) [Entitic vol] 105.4 fL Critically high 80.0-94.0 [facility] Comment on above: Performed By: #### T 7, LIPA, TSH, AMADOU, CMP #### [facility] [address] [place] [address] Dr. Krystle Heaton MONO # 0.3 103/ul Normal 0.3-0.8 [facility] Comment on above: Performed By: #### T 7, LIPA, TSH, AMADOU, CMP #### [facility] [address] [place] [address] Dr. Krystle Heaton Monocytes/100 WBC (Bld) 8.0 % Normal 1.7-12.0 [facility] Comment on above: Performed By: #### T 7, LIPA, TSH, AMADOU, CMP #### [facility] [address] [address] [address] Krystle Heaton NEUT # 1.6 103/ul Normal 1.4-6.5 [facility] Comment on above: Performed By: #### T 7, LIPA, TSH, AMADOU, CMP #### [facility] [address] [address] [address] Krystle Heaton Neutrophils/100 WBC (Bld) 48.5 % Normal 43.0-75.0 [facility] Comment on above: Performed By: #### T 7, LIPA, TSH, AMADOU, CMP #### [facility] [address] [place] [address] Dr. Krystle Heaton Platelet mean volume (Bld) [Entitic vol] 10.6 fL Normal 9.5-13.5 [facility] Comment on above: Performed By: #### T 7, LIPA, TSH, AMADOU, CMP #### [facility] [address] [place] [address] Dr. Krystle Heaton PLT 134 103/ul Critically low 150-450 [facility] Comment on above: Performed By: #### T 7, LIPA, TSH, AMADOU, CMP #### [facility] [address] [place] [address] Dr. Krystle Heaton RBC 3.88 106/ul Critically low 4.70-6.10 [facility] Comment on above: Result Comment: Macr ocytosis 1+ Stomatocytes 1+ Performed By: #### T 7, LIPA, TSH, AMADOU, CMP #### [facility] [address] [place] [address] Dr. Krystle Heaton WBC 3.3 103/ul Critically low 4.0-11.0 The [facility] Comment on above: Performed By: #### T 7, LIPA, TSH, AMADOU, CMP #### [facility] [address] [place] [address] Dr. Krystle Heaton FERRITINon 03-17-2021 Ferritin [Mass/Vol] ng/mL Critically high 17.9-464.0 [facility] Comment on above: Performed By: #### T 7, LIPA, TSH, AMADOU, CMP #### [facility] [address] [place] [address] Dr. Krystle Heaton FREE T4on 03-17-2021 Free T4 [Mass/Vol] 0.82 ng/dL Normal 0.78-2.19 [facility] Comment on above: Performed By: #### T 7, LIPA, TSH, AMADOU, CMP #### [facility] [address] [place] [address] Dr. Krystle Heaton IRON AND TIBCon 03-17-2021 % SATURATION 100.8 % Normal [facility] Comment on above: Performed By: #### T 7, LIPA, TSH, AMADOU, CMP #### [facility] [address] [place] [address] Dr. Krystle Heaton Iron [Mass/Vol] 249.0 ug/dL Critically high 49.0-181.0 [facility] Comment on above: Performed By: #### T 7, LIPA, TSH, AMADOU, CMP #### [facility] [address] [place] [address] Dr. Krystle Heaton TIBC DIRECT 247.0 ug/dL Critically low 261.0-497.0 [facility] Comment on above: Performed By: #### T 7, LIPA, TSH, AMADOU, CMP #### [facility] [address] [place] [address] Dr. Krystle Heaton PROF 14(COMP METB)on 021 Albumin [Mass/Vol] 3.7 g/dL Normal 3.5-5.0 [facility] Comment on above: Performed By: #### T 7, LIPA, TSH, AMADOU, CMP #### [facility] [address] [place] [address] Dr. Krystle Heaton Albumin/Globulin [Mass ratio] 1.1 {ratio} Normal [facility] Comment on above: Performed By: #### T 7, LIPA, TSH, AMADOU, CMP #### [facility] [address] [place] [address] Dr. Krystle Heaton ALP [Catalytic activity/Vol] 78 U/L Normal 38-126 [facility] Comment on above: Performed By: #### T 7, LIPA, TSH, AMADOU, CMP #### [facility] [address] [place] [address] Dr. Krystle Heaton ALT [Catalytic activity/Vol] 100 U/L Critically high 21-72 [facility] Comment on above: Performed By: #### T 7, LIPA, TSH, AMADOU, CMP #### [facility] [address] [place] [address] Dr. Krystle Heaton Anion gap [Moles/Vol] 14.4 mmol/L Normal [facility] Comment on above: Performed By: #### T 7, LIPA, TSH, AMADOU, CMP #### [facility] [address] [place] [address] Dr. Krystle Heaton AST [Catalytic activity/Vol] 158 U/L Critically high 17-59 [facility] Comment on above: Performed By: #### T 7, LIPA, TSH, AMADOU, CMP #### [facility] [address] [place] [address] Dr. Krystle Heaton Bilirubin [Mass/Vol] 0.6 mg/dL Normal 0.2-1.3 [facility] Comment on above: Performed By: #### T 7, LIPA, TSH, AMADOU, CMP #### [facility] [address] [place] [address] Dr. Krystle Heaton Calcium [Mass/Vol] 8.9 mg/dL Normal 8.4-10.2 [facility] Comment on above: Performed By: #### T 7, LIPA, TSH, AMADOU, CMP #### [facility] [address] [place] [address] Dr. Krystle Heaton Chloride [Moles/Vol] 100 mmol/L Normal 98-107 [facility] Comment on above: Performed By: #### T 7, LIPA, TSH, AMADOU, CMP #### [facility] [address] [place] [address] Dr. Krystle Heaton CO2 [Moles/Vol] 27.3 mmol/L Normal 22.0-30.0 [facility] Comment on above: Performed By: #### T 7, LIPA, TSH, AMADOU, CMP #### [facility] [address] [address] [address] Krystle Heaton Creatinine [Mass/Vol] 1.08 mg/dL Normal 0.66-1.25 [facility] Comment on above: Performed By: #### T 7, LIPA, TSH, AMADOU, CMP #### [facility] [address] [address] [address] Krystle Heaton EGFR-AF JORDANIAN >60 Normal >=60 [facility] Comment on above: Performed By: #### T 7, LIPA, TSH, AMADOU, CMP #### [facility] [address] [place] [address] Dr. Krystle Heaton EGFR-NON AF JORDANIAN >60 Normal >=60 [facility] Comment on above: Performed By: #### T 7, LIPA, TSH, AMADOU, CMP #### [facility] [address] [place] [address] Dr. Krytsle Heaton Globulin (S) [Mass/Vol] 3.5 g/dL Normal [facility] Comment on above: Performed By: #### T 7, LIPA, TSH, AMADOU, CMP #### [facility] [address] [place] [address] Dr. Krystle Heaton Glucose [Mass/Vol] 115 mg/dL Critically high 74-106 [facility] Comment on above: Performed By: #### T 7, LIPA, TSH, AMADOU, CMP #### [facility] [address] [place] [address] Dr. Krystle Heaton Potassium [Moles/Vol] 3.7 mmol/L Normal 3.4-5.0 [facility] Comment on above: Performed By: #### T 7, LIPA, TSH, AMADOU, CMP #### [facility] [address] [place] [address] Dr. Krystle Heaton Protein [Mass/Vol] 7.2 g/dL Normal 6.1-8.2 [facility] Comment on above: Performed By: #### T 7, LIPA, TSH, AMADOU, CMP #### [facility] [address] [place] [address] Dr. Krystle Heaton Sodium [Moles/Vol] 138 mmol/L Normal 137-145 [facility] Comment on above: Performed By: #### T 7, LIPA, TSH, AMADOU, CMP #### [facility] [address] [place] [address] Dr. Krystle Heaton Urea nitrogen [Mass/Vol] 10.0 mg/dL Normal 9.0-20.0 [facility] Comment on above: Performed By: #### T 7, LIPA, TSH, AMADOU, CMP #### [facility] [address] [place] [address] Dr. Krystle Heaton Urea nitrogen/Creatinine [Mass ratio] 9.3 mg/mg Normal [facility] Comment on above: Performed By: #### T 7, LIPA, TSH, AMADOU, CMP #### [facility] [address] [place] [address] Dr. Krystle Heaton TSHon 03-17-2021 TSH 1.904 uIU/mL Normal 0.470-4.680 [facility] Comment on above: Performed By: #### T 7, LIPA, TSH, AMADOU, CMP #### [facility] [address] [place] [address] Dr. Krystle Heaton TSH RANGE SEE BELOW Normal [facility] Comment on above: Result Comment: <0.3 4 UIU/ml HYPERTHYROID 0.34-5.60 UIU/ml EUTHYROID >5.60 UIU/ml HYPOTHYROID Performed By: #### T 7, LIPA, TSH, AMADOU, CMP #### [facility] [address] [place] [address] Dr. Krystle Heaton CBC AUTO DIFFon 03-08-2021 BASO # 0.0 103/ul Normal 0.0-0.1 [facility] Comment on above: Performed By: #### T 7, LIPA, TSH, AMADOU, CMP #### [facility] [address] [place] [address] Dr. Krystle Heaton Basophils/100 WBC (Bld) 0.8 % Normal 0.2-2.0 [facility] Comment on above: Performed By: #### T 7, LIPA, TSH, AMADOU, CMP #### [facility] [address] [place] [address] Dr. Krystle Heaton EO # 0.1 103/ul Normal 0.0-0.7 [facility] Comment on above: Performed By: #### T 7, LIPA, TSH, AMADOU, CMP #### [facility] [address] [place] [address] Dr. Krystle Heaton Eosinophils/100 WBC (Bld) 1.5 % Normal 0.9-7.0 [facility] Comment on above: Performed By: #### T 7, LIPA, TSH, AMADOU, CMP #### [facility] [address] [place] [address] Dr. Krystle Heaton Erythrocyte distribution width (RBC) [Ratio] 12.2 % Normal 11.0-15.0 [facility] Comment on above: Performed By: #### T 7, LIPA, TSH, AMADOU, CMP #### [facility] [address] [place] [address] Dr. Krystle Heaton Hematocrit (Bld) [Volume fraction] 45.5 % Normal 42.0-54.0 [facility] Comment on above: Performed By: #### T 7, LIPA, TSH, AMADOU, CMP #### [facility] [address] [place] [address] Dr. Krystle Heaton Hemoglobin (Bld) [Mass/Vol] 15.9 g/dL Normal 14.0-18.0 [facility] Comment on above: Performed By: #### T 7, LIPA, TSH, AMADOU, CMP #### [facility] [address] [place] [address] Dr. Krystle Heaton IG # 0.01 10e3/ul Normal 0.00-0.03 [facility] Comment on above: Performed By: #### T 7, LIPA, TSH, AMADOU, CMP #### [facility] [address] [place] [address] Dr. Krystle Heaton IG % 0.2 % Normal 0.0-0.5 [facility] Comment on above: Performed By: #### T 7, LIPA, TSH, AMADOU, CMP #### [facility] [address] [place] [address] Dr. Krystle Heaton LYMPH # 1.8 103/ul Normal 1.2-3.8 [facility] Comment on above: Performed By: #### T 7, LIPA, TSH, AMADOU, CMP #### [facility] [address] [place] [address] Dr. Krystle Heaton Lymphocytes/100 WBC (Bld) 37.8 % Normal 20.5-60.0 [facility] Comment on above: Performed By: #### T 7, LIPA, TSH, AMADOU, CMP #### [facility] [address] [place] [address] Dr. Krystle Heaton MANUAL DIFF REQ NO Normal [facility] Comment on above: Performed By: #### T 7, LIPA, TSH, AMADOU, CMP #### [facility] [address] [place] [address] Dr. Krystle Heaton MCH (RBC) [Entitic mass] 36.4 pg Critically high 25.9-34.0 [facility] Comment on above: Performed By: #### T 7, LIPA, TSH, AMADOU, CMP #### [facility] [address] [place] [address] Dr. Krystle Heaton MCHC (RBC) [Mass/Vol] 34.9 g/dL Normal 29.9-35.2 [facility] Comment on above: Performed By: #### T 7, LIPA, TSH, AMADOU, CMP #### [facility] [address] [place] [address] Dr. Krystle Heaton MCV (RBC) [Entitic vol] 104.1 fL Critically high 80.0-94.0 [facility] Comment on above: Performed By: #### T 7, LIPA, TSH, AMADOU, CMP #### [facility] [address] [place] [address] Dr. Krystle Heaton MONO # 0.4 103/ul Normal 0.3-0.8 [facility] Comment on above: Performed By: #### T 7, LIPA, TSH, AMADOU, CMP #### [facility] [address] [place] [address] Dr. Krystle Heaton Monocytes/100 WBC (Bld) 8.3 % Normal 1.7-12.0 [facility] Comment on above: Performed By: #### T 7, LIPA, TSH, AMADOU, CMP #### [facility] [address] [place] [address] Dr. Krystle Heaton NEUT # 2.4 103/ul Normal 1.4-6.5 [facility] Comment on above: Performed By: #### T 7, LIPA, TSH, AMADOU, CMP #### [facility] [address] [place] [address] Dr. Krystle Heaton Neutrophils/100 WBC (Bld) 51.4 % Normal 43.0-75.0 [facility] Comment on above: Performed By: #### T 7, LIPA, TSH, AMADOU, CMP #### [facility] [address] [place] [address] Dr. Krystle Heaton Platelet mean volume (Bld) [Entitic vol] 10.8 fL Normal 9.5-13.5 [facility] Comment on above: Performed By: #### T 7, LIPA, TSH, AMADOU, CMP #### [facility] [address] [place] [address] Dr. Krystle Heaton PLT 175 103/ul Normal 150-450 [facility] Comment on above: Performed By: #### T 7, LIPA, TSH, AMADOU, CMP #### [facility] [address] [place] [address] Dr. Krystle Heatno RBC 4.37 106/ul Critically low 4.70-6.10 [facility] Comment on above: Performed By: #### T 7, LIPA, TSH, AMADOU, CMP #### [facility] [address] [place] [address] Dr. Krystle Heaton WBC 4.7 103/ul Normal 4.0-11.0 [facility] Comment on above: Performed By: #### T 7, LIPA, TSH, AMADOU, CMP #### [facility] [address] [place] [address] Dr. Krystle Heaton FERRITINon 03-08-2021 Ferritin [Mass/Vol] ng/mL Critically high 17.9-464.0 [facility] Comment on above: Performed By: #### T 7, LIPA, TSH, AMADOU, CMP #### [facility] [address] [place] [address] Dr. Krystle Heaton FREE T4on 03-08-2021 Free T4 [Mass/Vol] 0.73 ng/dL Critically low 0.78-2.19 [facility] Comment on above: Performed By: #### T 7, LIPA, TSH, AMADOU, CMP #### [facility] [address] [place] [address] Dr. Krystle Heaton IRON AND TIBCon 03-08-2021 % SATURATION 102.2 % Normal [facility] Comment on above: Performed By: #### T 7, LIPA, TSH, AMADOU, CMP #### [facility] [address] [place] [address] Dr. Krystle Heaton Iron [Mass/Vol] 279.0 ug/dL Critically high 49.0-181.0 [facility] Comment on above: Performed By: #### T 7, LIPA, TSH, AMADOU, CMP #### [facility] [address] [place] [address] Dr. Krystle Heaton TIBC DIRECT 273.0 ug/dL Normal 261.0-497.[address] [facility] Comment on above: Performed By: #### T 7, LIPA, TSH, AMADOU, CMP #### [facility] [address] [place] [address] Dr. Krystle Heaton PROF 14(COMP METB)on 021 Albumin [Mass/Vol] 3.6 g/dL Normal 3.5-5.0 [facility] Comment on above: Performed By: #### T 7, LIPA, TSH, AMADOU, CMP #### [facility] [address] [place] [address] Dr. Krystle Heaton Albumin/Globulin [Mass ratio] 1.0 {ratio} Normal [facility] Comment on above: Performed By: #### T 7, LIPA, TSH, AMADOU, CMP #### [facility] [address] [place] [address] Dr. Krystle Heaton ALP [Catalytic activity/Vol] 68 U/L Normal 38-126 [facility] Comment on above: Performed By: #### T 7, LIPA, TSH, AMADOU, CMP #### [facility] [address] [place] [address] Dr. Krystle Heaton ALT [Catalytic activity/Vol] 58 U/L Normal 21-72 [facility] Comment on above: Performed By: #### T 7, LIPA, TSH, AMADOU, CMP #### [facility] [address] [place] [address] Dr. Krystle Heaton Anion gap [Moles/Vol] 15.5 mmol/L Normal [facility] Comment on above: Performed By: #### T 7, LIPA, TSH, AMADOU, CMP #### [facility] [address] [place] [address] Dr. Krystle Heaton AST [Catalytic activity/Vol] 56 U/L Normal 17-59 [facility] Comment on above: Performed By: #### T 7, LIPA, TSH, AMADOU, CMP #### [facility] [address] [place] [address] Dr. Krystle Heaton Bilirubin [Mass/Vol] 0.7 mg/dL Normal 0.2-1.3 [facility] Comment on above: Performed By: #### T 7, LIPA, TSH, AMADOU, CMP #### [facility] [address] [place] [address] Dr. Krystle Heaton Calcium [Mass/Vol] 8.9 mg/dL Normal 8.4-10.2 [facility] Comment on above: Performed By: #### T 7, LIPA, TSH, AMADOU, CMP #### [facility] [address] [place] [address] Dr. Krystle Heaton Chloride [Moles/Vol] 100 mmol/L Normal 98-107 [facility] Comment on above: Performed By: #### T 7, LIPA, TSH, AMADOU, CMP #### [facility] [address] [address] [address] Krystle Heaton CO2 [Moles/Vol] 26.6 mmol/L Normal 22.0-30.0 [facility] Comment on above: Performed By: #### T 7, LIPA, TSH, AMADOU, CMP #### [facility] [address] [place] [address] Dr. Krystle Heaton Creatinine [Mass/Vol] 1.12 mg/dL Normal 0.66-1.25 [facility] Comment on above: Performed By: #### T 7, LIPA, TSH, AMADOU, CMP #### [facility] [address] [place] [address] Dr. Krystle Heaton EGFR-AF JORDANIAN >60 Normal >=60 [facility] Comment on above: Performed By: #### T 7, LIPA, TSH, AMADOU, CMP #### [facility] [address] [place] [address] Dr. Krystle Heaton EGFR-NON AF JORDANIAN >60 Normal >=60 [facility] Comment on above: Performed By: #### T 7, LIPA, TSH, AMADOU, CMP #### [facility] [address] [place] [address] Dr. Krystle Heaton Globulin (S) [Mass/Vol] 3.7 g/dL Normal [facility] Comment on above: Performed By: #### T 7, LIPA, TSH, AMADOU, CMP #### [facility] [address] [place] [address] Dr. Krystle Heaton Glucose [Mass/Vol] 101 mg/dL Normal 74-106 [facility] Comment on above: Performed By: #### T 7, LIPA, TSH, AMADOU, CMP #### [facility] [address] [address] [address] Krystle Heaton Potassium [Moles/Vol] 4.1 mmol/L Normal 3.4-5.0 [facility] Comment on above: Performed By: #### T 7, LIPA, TSH, AMADOU, CMP #### [facility] [address] [place] [address] Dr. Krystle Heaton Protein [Mass/Vol] 7.3 g/dL Normal 6.1-8.2 [facility] Comment on above: Performed By: #### T 7, LIPA, TSH, AMADOU, CMP #### [facility] [address] [place] [address] Dr. Krystle Heaton Sodium [Moles/Vol] 138 mmol/L Normal 137-145 [facility] Comment on above: Performed By: #### T 7, LIPA, TSH, AMADOU, CMP #### [facility] [address] [place] [address] Dr. Krystle Heaton Urea nitrogen [Mass/Vol] 17.0 mg/dL Normal 9.0-20.0 [facility] Comment on above: Performed By: #### T 7, LIPA, TSH, AMADOU, CMP #### [facility] [address] [place] [address] Dr. Krystle Heaton Urea nitrogen/Creatinine [Mass ratio] 15.2 mg/mg Normal [facility] Comment on above: Performed By: #### T 7, LIPA, TSH, AMADOU, CMP #### [facility] [address] [place] [address] Dr. Krystle Heaton TSHon 03-08-2021 TSH 1.781 uIU/mL Normal 0.470-4.680 [facility] Comment on above: Performed By: #### T 7, LIPA, TSH, AMADOU, CMP #### [facility] [address] [place] [address] Dr. Krystle Heaton TSH RANGE SEE BELOW Normal [facility] Comment on above: Result Comment: <0.3 4 UIU/ml HYPERTHYROID 0.34-5.60 UIU/ml EUTHYROID >5.60 UIU/ml HYPOTHYROID Performed By: #### T 7, LIPA, TSH, AMADOU, CMP #### [facility] [address] [place] [address] Dr. Krystle Heaton FERRITINon 02-03-2021 Ferritin [Mass/Vol] ng/mL Critically high 17.9-464.0 [facility] Comment on above: Performed By: #### C BC #### [facility] [address] [place] [address] Billy Devlin [facility]19 [facility]on SARS-CoV-2 (COVID-19) RNA JIMBO+probe Ql (Unsp spec) Not detected Normal NOT DETECTED [facility] Comment on above: Result Comment: This test is not yet approved or cleared by the [place] FDA. When there are no FDA-approved or cleared tests available, and other criteria are met, FDA can make tests available under an emergency access mechanism called an Emergency Use Authorization (EUA). The EUA for this test is supported by the [place] of Health and Human Service's (HHS's) declaration [...] LIPA, TSH, AMADOU, CMP #### [facility] [address] [place] [address] Dr. Krystle Heaton CBC AUTO DIFFon 01-06-2021 BASO # 0.0 103/ul Normal 0.0-0.1 [facility] Comment on above: Performed By: #### T 7, LIPA, TSH, AMADOU, CMP #### [facility] [address] [place] [address] Dr. Krystle Heaton Basophils/100 WBC (Bld) 1.0 % Normal 0.2-2.0 [facility] Comment on above: Performed By: #### T 7, LIPA, TSH, AMADOU, CMP #### [facility] [address] [place] [address] Dr. Krystle Heaton EO # 0.1 103/ul Normal 0.0-0.7 [facility] Comment on above: Performed By: #### T 7, LIPA, TSH, AMADOU, CMP #### [facility] [address] [place] [address] Dr. Krystle Heaton Eosinophils/100 WBC (Bld) 2.5 % Normal 0.9-7.0 [facility] Comment on above: Performed By: #### T 7, LIPA, TSH, AMADOU, CMP #### [facility] [address] [place] [address] Dr. Krystle Heaton Erythrocyte distribution width (RBC) [Ratio] 13.7 % Normal 11.0-15.0 [facility] Comment on above: Performed By: #### T 7, LIPA, TSH, AMADOU, CMP #### [facility] [address] [place] [address] Dr. Krystle Heaton Hematocrit (Bld) [Volume fraction] 44.1 % Normal 42.0-54.0 [facility] Comment on above: Performed By: #### T 7, LIPA, TSH, AMADOU, CMP #### [facility] [address] [place] [address] Dr. Krystle Heaton Hemoglobin (Bld) [Mass/Vol] 15.0 g/dL Normal 14.0-18.0 [facility] Comment on above: Performed By: #### T 7, LIPA, TSH, AMADOU, CMP #### [facility] [address] [place] [address] Dr. Krystle Heaton IG # 0.02 10e3/ul Normal 0.00-0.03 [facility] Comment on above: Performed By: #### T 7, LIPA, TSH, AMADOU, CMP #### [facility] [address] [place] [address] Dr. Krystle Heaton IG % 0.5 % Normal 0.0-0.5 [facility] Comment on above: Performed By: #### T 7, LIPA, TSH, AMADOU, CMP #### [facility] [address] [place] [address] Dr. Krystle Heaton LYMPH # 1.6 103/ul Normal 1.2-3.8 [facility] Comment on above: Performed By: #### T 7, LIPA, TSH, AMADOU, CMP #### [facility] [address] [place] [address] Dr. Krystle Heaton Lymphocytes/100 WBC (Bld) 40.7 % Normal 20.5-60.0 [facility] Comment on above: Performed By: #### T 7, LIPA, TSH, AMADOU, CMP #### [facility] [address] [place] [address] Dr. Krystle Heaton MANUAL DIFF REQ NO Normal [facility] Comment on above: Performed By: #### T 7, LIPA, TSH, AMADOU, CMP #### [facility] [address] [place] [address] Dr. Krystle Heaton MCH (RBC) [Entitic mass] 36.2 pg Critically high 25.9-34.0 [facility] Comment on above: Performed By: #### T 7, LIPA, TSH, AMADOU, CMP #### [facility] [address] [place] [address] Dr. Krystle Heaton MCHC (RBC) [Mass/Vol] 34.0 g/dL Normal 29.9-35.2 [facility] Comment on above: Performed By: #### T 7, LIPA, TSH, AMADOU, CMP #### [facility] [address] [place] [address] Dr. Krystle Heaton MCV (RBC) [Entitic vol] 106.5 fL Critically high 80.0-94.0 [facility] Comment on above: Performed By: #### T 7, LIPA, TSH, AMADOU, CMP #### [facility] [address] [place] [address] Dr. Krystle Heaton MONO # 0.3 103/ul Normal 0.3-0.8 [facility] Comment on above: Performed By: #### T 7, LIPA, TSH, AMADOU, CMP #### [facility] [address] [place] [address] Dr. Krystle Heaton Monocytes/100 WBC (Bld) 8.1 % Normal 1.7-12.0 [facility] Comment on above: Performed By: #### T 7, LIPA, TSH, AMADOU, CMP #### [facility] [address] [address] [address] Krystle Heaton NEUT # 1.9 103/ul Normal 1.4-6.5 [facility] Comment on above: Performed By: #### T 7, LIPA, TSH, AMADOU, CMP #### [facility] [address] [place] [address] Dr. Krystle Heaton Neutrophils/100 WBC (Bld) 47.2 % Normal 43.0-75.0 [facility] Comment on above: Performed By: #### T 7, LIPA, TSH, AMADOU, CMP #### [facility] [address] [place] [address] Dr. Krystle Heaton Platelet mean volume (Bld) [Entitic vol] 11.6 fL Normal 9.5-13.5 [facility] Comment on above: Performed By: #### T 7, LIPA, TSH, AMADOU, CMP #### [facility] [address] [place] [address] Dr. Krystle Heaton PLT 184 103/ul Normal 150-450 [facility] Comment on above: Performed By: #### T 7, LIPA, TSH, AMADOU, CMP #### [facility] [address] [place] [address] Dr. Krystle Heaton RBC 4.14 106/ul Critically low 4.70-6.10 [facility] Comment on above: Performed By: #### T 7, LIPA, TSH, AMADOU, CMP #### [facility] [address] [place] [address] Dr. Krystle Heaton WBC 4.0 103/ul Normal 4.0-11.0 [facility] Comment on above: Performed By: #### T 7, LIPA, TSH, AMADOU, CMP #### [facility] [address] [address] [address] Krystle Heaton FERRITINon 01-06-2021 Ferritin [Mass/Vol] ng/mL Critically high 17.9-464.0 [facility] Comment on above: Performed By: #### H BSANS #### [facility] [address] [place] [address] Billy Devlin CBC AUTO DIFFon 12-09-2020 BASO # 0.0 103/ul Normal 0.0-0.1 [facility] Comment on above: Performed By: #### T 7, LIPA, TSH, AMADOU, CMP #### [facility] [address] [place] [address] Dr. Krystle Heaton Basophils/100 WBC (Bld) 0.6 % Normal 0.2-2.0 [facility] Comment on above: Performed By: #### T 7, LIPA, TSH, AMADOU, CMP #### [facility] [address] [place] [address] Dr. Krystle Heaton EO # 0.1 103/ul Normal 0.0-0.7 [facility] Comment on above: Performed By: #### T 7, LIPA, TSH, AMADOU, CMP #### [facility] [address] [place] [address] Dr. Krystle Heaton Eosinophils/100 WBC (Bld) 2.6 % Normal 0.9-7.0 [facility] Comment on above: Performed By: #### T 7, LIPA, TSH, AMADOU, CMP #### [facility] [address] [place] [address] Dr. Krystle Heaton Erythrocyte distribution width (RBC) [Ratio] 13.0 % Normal 11.0-15.0 [facility] Comment on above: Performed By: #### T 7, LIPA, TSH, AMADOU, CMP #### [facility] [address] [place] [address] Dr. Krystle Heaton Hematocrit (Bld) [Volume fraction] 46.2 % Normal 42.0-54.0 [facility] Comment on above: Performed By: #### T 7, LIPA, TSH, AMADOU, CMP #### [facility] [address] [place] [address] Dr. Krystle Heaton Hemoglobin (Bld) [Mass/Vol] 16.0 g/dL Normal 14.0-18.0 [facility] Comment on above: Performed By: #### T 7, LIPA, TSH, AMADOU, CMP #### [facility] [address] [place] [address] Dr. Krystle Heaton IG # 0.01 10e3/ul Normal 0.00-0.03 [facility] Comment on above: Performed By: #### T 7, LIPA, TSH, AMADOU, CMP #### [facility] [address] [place] [address] Dr. Krystle Heaton IG % 0.2 % Normal 0.0-0.5 [facility] Comment on above: Performed By: #### T 7, LIPA, TSH, AMADOU, CMP #### [facility] [address] [place] [address] Dr. Krystle Heaton LYMPH # 1.3 103/ul Normal 1.2-3.8 [facility] Comment on above: Performed By: #### T 7, LIPA, TSH, AMADOU, CMP #### [facility] [address] [place] [address] Dr. Krystle Heaton Lymphocytes/100 WBC (Bld) 27.8 % Normal 20.5-60.0 [facility] Comment on above: Performed By: #### T 7, LIPA, TSH, AMADOU, CMP #### [facility] [address] [place] [address] Dr. Krystle Heaton MANUAL DIFF REQ NO Normal [facility] Comment on above: Performed By: #### T 7, LIPA, TSH, AMADOU, CMP #### [facility] [address] [place] [address] Dr. Krystle Heaton MCH (RBC) [Entitic mass] 34.9 pg Critically high 25.9-34.0 [facility] Comment on above: Performed By: #### T 7, LIPA, TSH, AMADOU, CMP #### [facility] [address] [place] [address] Dr. Krystle Heaton MCHC (RBC) [Mass/Vol] 34.6 g/dL Normal 29.9-35.2 [facility] Comment on above: Performed By: #### T 7, LIPA, TSH, AMADOU, CMP #### [facility] [address] [place] [address] Dr. Krystle Heaton MCV (RBC) [Entitic vol] 100.9 fL Critically high 80.0-94.0 [facility] Comment on above: Performed By: #### T 7, LIPA, TSH, AMADOU, CMP #### [facility] [address] [place] [address] Dr. Krystle Heaton MONO # 0.3 103/ul Normal 0.3-0.8 [facility] Comment on above: Performed By: #### T 7, LIPA, TSH, AMADOU, CMP #### [facility] [address] [place] [address] Dr. Krystle Heaton Monocytes/100 WBC (Bld) 6.6 % Normal 1.7-12.0 [facility] Comment on above: Performed By: #### T 7, LIPA, TSH, AMADOU, CMP #### [facility] [address] [place] [address] Dr. Krystle Heaton NEUT # 2.9 103/ul Normal 1.4-6.5 [facility] Comment on above: Performed By: #### T 7, LIPA, TSH, AMADOU, CMP #### [facility] [address] [place] [address] Dr. Krystle Heaton Neutrophils/100 WBC (Bld) 62.2 % Normal 43.0-75.0 [facility] Comment on above: Performed By: #### T 7, LIPA, TSH, AMADOU, CMP #### [facility] [address] [place] [address] Dr. Krystle Heaton Platelet mean volume (Bld) [Entitic vol] 11.0 fL Normal 9.5-13.5 [facility] Comment on above: Performed By: #### T 7, LIPA, TSH, AMADOU, CMP #### [facility] [address] [place] [address] Dr. Krystle Heaton PLT 171 103/ul Normal 150-450 [facility] Comment on above: Performed By: #### T 7, LIPA, TSH, AMADOU, CMP #### [facility] [address] [address] [address] Krystle Heaton RBC 4.58 106/ul Critically low 4.70-6.10 [facility] Comment on above: Performed By: #### T 7, LIPA, TSH, AMADOU, CMP #### [facility] [address] [place] [address] Dr. Krystle Heaton WBC 4.7 103/ul Normal 4.0-11.0 [facility] Comment on above: Performed By: #### T 7, LIPA, TSH, AMADOU, CMP #### [facility] [address] [place] [address] Dr. Krystle Heaton PROF 14(COMP METB)on 021 Albumin [Mass/Vol] 3.9 g/dL Normal 3.5-5.0 [facility] Comment on above: Performed By: #### T 7, LIPA, TSH, AMADOU, CMP #### [facility] [address] [place] [address] Dr. Krystle Heaton Albumin/Globulin [Mass ratio] 1.1 {ratio} Normal [facility] Comment on above: Performed By: #### T 7, LIPA, TSH, AMADOU, CMP #### [facility] [address] [place] [address] Dr. Krystle Heaton ALP [Catalytic activity/Vol] 86 U/L Normal 38-126 [facility] Comment on above: Performed By: #### T 7, LIPA, TSH, AMADOU, CMP #### [facility] [address] [place] [address] Dr. Krystle Heaton ALT [Catalytic activity/Vol] 87 U/L Critically high 21-72 [facility] Comment on above: Performed By: #### T 7, LIPA, TSH, AMADOU, CMP #### [facility] [address] [place] [address] Dr. Krystle Heaton Anion gap [Moles/Vol] 15.7 mmol/L Normal [facility] Comment on above: Performed By: #### T 7, LIPA, TSH, AMADOU, CMP #### [facility] [address] [place] [address] Dr. Krystle Heaton AST [Catalytic activity/Vol] 70 U/L Critically high 17-59 [facility] Comment on above: Performed By: #### T 7, LIPA, TSH, AMADOU, CMP #### [facility] [address] [place] [address] Dr. Krystle Heaton Bilirubin [Mass/Vol] 1.4 mg/dL Critically high 0.2-1.3 [facility] Comment on above: Performed By: #### T 7, LIPA, TSH, AMADOU, CMP #### [facility] [address] [place] [address] Dr. Krystle Heaton Calcium [Mass/Vol] 9.3 mg/dL Normal 8.4-10.2 [facility] Comment on above: Performed By: #### T 7, LIPA, TSH, AMADOU, CMP #### [facility] [address] [place] [address] Dr. Krystle Heaton Chloride [Moles/Vol] 102 mmol/L Normal 98-107 [facility] Comment on above: Performed By: #### T 7, LIPA, TSH, AMADOU, CMP #### [facility] [address] [place] [address] Dr. Krystle Heaton CO2 [Moles/Vol] 26.5 mmol/L Normal 22.0-30.0 [facility] Comment on above: Performed By: #### T 7, LIPA, TSH, AMADOU, CMP #### [facility] [address] [place] [address] Dr. Krystle Heaton Creatinine [Mass/Vol] 1.27 mg/dL Critically high 0.66-1.25 [facility] Comment on above: Performed By: #### T 7, LIPA, TSH, AMADOU, CMP #### [facility] [address] [place] [address] Dr. Krystle Heaton EGFR-AF JORDANIAN >60 Normal >=60 [facility] Comment on above: Performed By: #### T 7, LIPA, TSH, AMADOU, CMP #### [facility] [address] [place] [address] Dr. Krystle Heaton EGFR-NON AF JORDANIAN =60 Normal >=60 [facility] Comment on above: Performed By: #### T 7, LIPA, TSH, AMADOU, CMP #### [facility] [address] [place] [address] Dr. Krystle Heaton Globulin (S) [Mass/Vol] 3.5 g/dL Normal [facility] Comment on above: Performed By: #### T 7, LIPA, TSH, AMADOU, CMP #### [facility] [address] [place] [address] Dr. Krystle Heaton Glucose [Mass/Vol] 120 mg/dL Critically high 74-106 [facility] Comment on above: Performed By: #### T 7, LIPA, TSH, AMADOU, CMP #### [facility] [address] [place] [address] Dr. Krystle Heaton Potassium [Moles/Vol] 4.2 mmol/L Normal 3.4-5.0 [facility] Comment on above: Performed By: #### T 7, LIPA, TSH, AMADOU, CMP #### [facility] [address] [place] [address] Dr. Krystle Heaton Protein [Mass/Vol] 7.4 g/dL Normal 6.1-8.2 [facility] Comment on above: Performed By: #### T 7, LIPA, TSH, AMADOU, CMP #### [facility] [address] [place] [address] Dr. Krystle Heaton Sodium [Moles/Vol] 140 mmol/L Normal 137-145 [facility] Comment on above: Performed By: #### T 7, LIPA, TSH, AMADOU, CMP #### [facility] [address] [place] [address] Dr. Krystle Heaton Urea nitrogen [Mass/Vol] 12.0 mg/dL Normal 9.0-20.0 [facility] Comment on above: Performed By: #### T 7, LIPA, TSH, AMADOU, CMP #### [facility] [address] [place] [address] Dr. Krystle Heaton Urea nitrogen/Creatinine [Mass ratio] 9.4 mg/mg Normal [facility] Comment on above: Performed By: #### T 7, LIPA, TSH, AMADOU, CMP #### [facility] [address] [place], [place] [id number] Dr. Krystle Heaton PROTIMEon 12-09-2020 INR Coag (PPP) [Relative time] 0.96 {INR} Normal [facility] Comment on above: Performed By: #### H BSANS #### [facility] [address] [place] [address] Billy Devlin INR GUIDELINES SEE BELOW Normal [facility] Comment on above: Result Comment: MOUNA RED INR: 2.0 - 3.0 CONDITIONS NOT LISTED BELOW 2.5 - 3.5 FOR PROSTHETIC HEART VALVE REPLACEMENT 2.5 - 3.5 RECURRENT THROMBOSIS Performed By: #### H BSANS #### [facility] [address] [place] [address] Billy Devlin PT Coag (PPP) [Time] 10.5 s Normal 9.0-11.6 [facility] Comment on above: Performed By: #### H BSANS #### [facility] [address] [place], [place] [id number] Billy Devlin US SINGLE QUAD RT UPPERon [...] by: KRISTEN GODINEZ Date: 2020-12-09 10:23 Normal [facility] Vital Signs Date Time Vital Sign Value Performing Clinician Amy ling 07-14-2024 09:54-0400 Body height 177.8 cm Vivienne Velázquez MD Work Phone: [facility] 07-14-2024 09:54-0400 Body mass index (BMI) [Ratio] 27.26 kg/m2 Vivienne Velázquez MD Work Phone: [facility] 07-14-2024 09:54-0400 Body weight 86.18 kg Vivienne Velázquez MD Work Phone: [facility] 07-14-2024 09:54-0400 Diastolic blood pressure 64 mm[Hg] Vivienne Velázquez MD Work Phone: [facility] 07-14-2024 09:54-0400 Systolic blood pressure 104 mm[Hg] Vivienne Velázquez MD Work Phone: [facility] Encounters Encounter Date Encounter Type Care Provider Facility Start: 12-28-2024 End: 12-28-2024 ambulatory None Provider Facility:[facility] Start: 07-14-2024 End: 07-14-2024 Bamboo flowsheet Vivienne [...] Start: 04-03-2022 End: 04-03-2022 ambulatory Magaly Sewell Facility:[facility] Start: 11-26-2021 End: 11-27-[address] GENEVIEVE TONG Facility:[facility] Start: 11-15-2021 End: 11-15-[address] GENEVIEVE TONG Facility:[facility] Start: 10-08-2021 End: 10-09-[address] AMADOU BROWN Facility:[facility] Start: 09-10-2021 End: 09-11-[address] AMADOU BROWN Facility:[facility] Start: 08-15-2021 End: 08-16-[address] AMADOU BROWN Facility:[facility] Start: 08-13-2021 Encounter for preprocedural laboratory examination [facility] Start: 08-10-2021 AUDIT No PCP None [...] ne w 45 minutes No PCP None [facility] Work Phone: Start: 04-06-2021 End: 04-07-2021 [...] finding No PCP None [facility] enter[facility] Work Phone: Procedures Date Procedure Procedure Detail Performing Clinician Biopsy of liver No PCP None Repair of musculoten dinous cuff of shoulder No PCP None Plan of Treatment Date Care Activity Detail Author Start: 08-04-2024 End: 08-04-2024 Patient encounter procedure 08/04/2024 2:30 PM EDT Office Visit [facility] [address] [facility] [address] [place] [id number] Vivienne Velázquez MD [address] [facility] [address] [place] [address] [facility] Start: 07-28-2024 End: 07-28-2024 Patient encounter procedure 07/28/2024 10:30 AM EDT Office Visit [facility] [address] [place] [address] Vivienne Velázquez MD [address] [place] [address] [facility] Start: 07-14-2024 End: 07-14-2024 Patient encounter procedure 07/14/2024 9:50 AM EDT Office Visit [facility] [address] [place] [address] Vivienne Velázquez MD [address] [place] [address] Arrived [facility] Comment on above: Arrived Start: 07-11-2024 Influenza vaccination Influenza Vacc ine (#1) [facility] Start: 1970 Screening for malign ant neoplasm of colon [facility] Immunizations Immunization Date Immunization Notes Care Provider [facility] 09-03-2023 influenza virus vacc ine, unspecified formulation Vivienne Velázquez MD Work Phone: [facility] Payers Date Payer Category Payer Medicare [id number] 2023 Unknown 2023 Unknown [id number] 1970 Unknown [id number] 2.16.84 0.1.917280.3.579.2.593 1969 Unknown [id number] .16.84 0.1.838603.3.579.2.593 1969 Unknown [id number] .16.84 0.1.954025.3.579.2.59 1969 Unknown [id number] 2.16.84 0.1.278081.3.579.2.593 1969 Unknown [id number] 2.16.84 0.1.867025.3.579.2.593 1969 Unknown [id number] 2.16.84 0.1.608603.3.579.2.593 1969 Unknown [id number] 2.16.84 0.1.628145.3.579.2.593 1969 Unknown [id number] 2.16.84 0.1.731807.3.579.2.593 1969 Unknown [id number] 2.16.84 0.1.915347.3.579.2.593 1969 Unknown [id number] 2.16.84 0.1.380075.3.579.2.593 1969 Unknown [id number] 2.16.84 0.1.250241.3.579.2.593 1969 Unknown [id number] .16.84 0.1.309787.3.579.2.593 1969 Unknown [id number] 2.16.84 0.1.507241.3.579.2.593 1969 Unknown [id number] 2.16.84 0.1.391940.3.579.2.593 1969 Unknown [id number] 2.16.84 0.1.830908.3.579.2.593 1969 Unknown [id number] 2.16.84 0.1.349617.3.579.2.593 1969 Unknown [id number] 2.16.84 0.1.194498.3.579.2.593 1969 Unknown [id number] 2.16.84 0.1.419377.3.579.2.593 1969 Unknown [id number] 2.16.84 0.1.466912.3.579.2.593 1969 Unknown [id number] 2.16.84 0.1.171639.3.579.2.593 1969 Unknown [id number] 2.16.84 0.1.134243.3.579.2.593 1969 Unknown [id number] 2.16.84 0.1.760319.3.579.2.593 1969 Unknown [id number] 2.16.84 0.1.400723.3.579.2.1259 1969 Unknown [id number] 2.16.84 0.1.905734.3.579.2.1259 1969 Unknown [id number] 2.16.84 0.1.476237.3.579.2.1259 1969 Unknown [id number] 2.16.8 40.1.076946.3.579.2.718 1959 Self-pay [id number] 1959 Self-pay 1959 Unknown [id number] Unknown [id number] 2.16.84 0.1.508230.3.579.2.593 Unknown [id number] 2.16.84 0.1.775910.3.579.2.593 Unknown [id number] 2.16.8 40.1.247387.3.579.2.531 Social History Date Type Detail Facility Start: 05-26-2024 End: 07-14-2024 Former smoker Former smoker [facility] [address] [facility] Work Phone: Start: 1970 Sex Assigned At Male [facility] Start: 05-26-2024 Tobacco smoking stat [facility] Ex-smoker [facility] Work Phone: History of tobacco use Current smoker [facility] History of tobacco use Cigarette Smoker [facility] Start: 05-26-2024 Tobacco use and exposure Smokeless tobacco non-user [facility] Start: 05-26-2024 End: 07-14-2024 Alcoholic beverage intake Ex-drinker (finding) [facility] Start: 05-26-2024 End: 07-14-2024 Tobacco use panel [facility] Start: 1970 Sex assigned at Not [...] Mother Vanita Gaitan Heart disease Mother Vanita Gaitan Other (HTN) Mother Vanita Gaitan Cancer Father [...] if sx persist documented in this encounter [facility] Clinical Note 07-31-2021 Note Date & Type [...] report Procedure performed by: Sandy Roland MD Creative Perfumer(s): Dee Lopes Md Estimated Blood Loss (mL): [...] Last Updated: 02-Aug-2021 13:04 by Sandy Roland) [facility] Clinical Note 05-08-2021 Note Date [...] grossly normal anatomy Procedure performed by: me Creative Perfumer(s): none Estimated Blood Loss (mL): none Specimen: [...] Last Updated: 08-May-2021 11:58 by Uri Bacon) [facility] Evaluation note Note Date & Type Note Facility Evaluation note [facility]: Evaluation note Note Date & [...] no lower extremity edema.Symptom History:Modifying Factors:Associated Symptoms: [facility] [address] [facility] Work Phone: Chief Complaint [...] section and content) DATE CREATED AUTHOR 04/14/2021 [employer] DATE CREATED AUTHOR AUTHOR'S ORGANIZ ATION 05/15/2021 [facility] DATE CREATED AUTHOR AUTHOR'S ORGANIZ ATION 11/29/2021 [facility] DATE CREATED AUTHOR AUTHOR'S ORGANIZ ATION 04/15/2022 [facility] DATE CREATED AUTHOR AUTHOR'S ORGANIZ ATION 01/28/2023 [facility] DATE CREATED AUTHOR AUTHOR'S ORGANIZ ATION 05/24/2023 [facility] DATE CREATED AUTHOR AUTHOR'S ORGANIZ ATION 07/15/2024 [facility] DATE CREATED AUTHOR AUTHOR'S ORGANIZ ATION 01/01/2025 [facility] Goals (unrecognized section and content) Goals may be documented in a n alternate section Care Teams (unrecognized sec tion and content) 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 [facility] [employer] [facility]. provides no warranty or guarantee of the accuracy or completeness of information in this document.
== END 2025-01-02 10:36 | disposition home or self-care (01) ==
PROVIDERS: PCP Family Medicine; Visit Provider Family Medicine
DX: J20.9 Acute bronchitis, unspecified (principal)
CPT/HCPCS: 87070

== ENCOUNTER 2025-01-07 06:31 | Outpatient (OUT) | payer MEDICARE, SELFPAY ==
--- OUTSIDE RECORDS SUMMARY | 2025-01-07 06:34 | XMS_ITS | CCD ---
Author Organization [facility] Care Team Providers Care Pharmacy Services Representative Name Role Phone None, No PCP Unavailable [...] Unavailable Genevieve Tong MD Primary Care Provider [phone] Provider, None Primary Care Unavailable Gideon Mace V. Attending Unavailable Gideon Mace V. Admitting Unavailable Allergies Allergy Classification Reported Allergen(s) Allergy Type Date of Onset Reaction(s) Facility (2 sources) Morphine Drug Allergy 2 Swelling of the Eye [facility] Repository (1 source) Morphine Drug Allergy 2 [facility] Repository (4 sources) Morphine Drug Allergy 2 [facility] Healthcare Medications Current Medications Medication Drug [...] Range Facility Outside Recordson 12-28-2024 Outside Records [id number][id number] Report on 12-28-2024 Rad - Other Radiology Report [id number] [id number]#1.[facility] In office Testingon 01-29-20 23 In office Testing [id number]#[id number]:127 Normal [facility] AMYLASEon 11-26-2021 Amylase [Catalytic activity/Vol] 53 U/L Normal 31-110 [facility] Comment on above: Performed By: #### T 7, LIPA, TSH, AMADOU, CMP #### [facility] [address] [place] [address] Dr. Krystle Heaton CBC AUTO DIFFon 11-26-2021 BASO # 0.0 103/ul Normal 0.0-0.1 [facility] Comment on above: Performed By: #### F ERR #### [facility] [address] [place] [address] Dr. Krystle Heaton Basophils/100 WBC (Bld) 0.6 % Normal 0.2-2.0 [facility] Comment on above: Performed By: #### F ERR #### [facility] [address] [place] [address] Dr. Krystle Heaton EO # 0.1 103/ul Normal 0.0-0.7 [facility] Comment on above: Performed By: #### F ERR #### [facility] [address] [place] [address] Dr. Krystle Heaton Eosinophils/100 WBC (Bld) 2.7 % Normal 0.9-7.0 [facility] Comment on above: Performed By: #### F ERR #### [facility] [address] [place] [address] Dr. Krystle Heaton Erythrocyte distribution width (RBC) [Ratio] 16.0 % Critically high 11.0-15.0 [facility] Comment on above: Performed By: #### F ERR #### [facility] [address] [place] [address] Dr. Krystle Heaton Hematocrit (Bld) [Volume fraction] 42.8 % Normal 42.0-54.0 [facility] Comment on above: Performed By: #### F ERR #### [facility] [address] [place] [address] Dr. Krystle Heaton Hemoglobin (Bld) [Mass/Vol] 13.0 g/dL Critically low 14.0-18.0 [facility] Comment on above: Performed By: #### F ERR #### [facility] [address] [place] [address] Dr. Krystle Heaton IG # 0.02 10e3/ul Normal 0.00-0.03 [facility] Comment on above: Performed By: #### F ERR #### [facility] [address] [place] [address] Dr. Krystle Heaton IG % 0.4 % Normal 0.0-0.5 [facility] Comment on above: Performed By: #### F ERR #### [facility] [address] [place] [address] Dr. Krystle Haeton LYMPH # 0.9 103/ul Critically low 1.2-3.8 [facility] Comment on above: Performed By: #### F ERR #### [facility] [address] [place] [address] Dr. Krystle Heaton Lymphocytes/100 WBC (Bld) 19.1 % Critically low 20.5-60.0 [facility] Comment on above: Performed By: #### F ERR #### [facility] [address] [place] [address] Dr. Krystle Heaton MANUAL DIFF REQ NO Normal [facility] Comment on above: Performed By: #### F ERR #### [facility] [address] [place] [address] Dr. Krystle Heaton MCH (RBC) [Entitic mass] 27.7 pg Normal 25.9-34.0 [facility] Comment on above: Performed By: #### F ERR #### [facility] [address] [place] [address] Dr. Krystle Heaton MCHC (RBC) [Mass/Vol] 30.4 g/dL Normal 29.9-35.2 [facility] Comment on above: Performed By: #### F ERR #### [facility] [address] [place] [address] Dr. Krystle Heaton MCV (RBC) [Entitic vol] 91.1 fL Normal 80.0-94.0 [facility] Comment on above: Performed By: #### F ERR #### [facility] [address] [place] [address] Dr. Krystle Heaton MONO # 0.5 103/ul Normal 0.3-0.8 [facility] Comment on above: Performed By: #### F ERR #### [facility] [address] [place] [address] Dr. Krystle Heaton Monocytes/100 WBC (Bld) 10.4 % Normal 1.7-12.0 [facility] Comment on above: Performed By: #### F ERR #### [facility] [address] [place] [address] Dr. Krystle Heaton NEUT # 3.2 103/ul Normal 1.4-6.5 [facility] Comment on above: Performed By: #### F ERR #### [facility] [address] [place] [address] Dr. Krystle Heaton Neutrophils/100 WBC (Bld) 66.8 % Normal 43.0-75.0 [facility] Comment on above: Performed By: #### F ERR #### [facility] [address] [place] [address] Dr. Krystle Heaton Platelet mean volume (Bld) [Entitic vol] 11.3 fL Normal 9.5-13.5 [facility] Comment on above: Performed By: #### F ERR #### [facility] [address] [place] [address] Dr. Krystle Heaton PLT 177 103/ul Normal 150-450 [facility] Comment on above: Performed By: #### F ERR #### [facility] [address] [place] [address] Dr. Krystle Heaton RBC 4.70 106/ul Normal 4.70-6.10 [facility] Comment on above: Performed By: #### F ERR #### [facility] [address] [place] [address] Dr. Krystle Heaton WBC 4.8 103/ul Normal 4.0-11.0 [facility] Comment on above: Performed By: #### F ERR #### [facility] [address] [place] [address] Dr. Krystle Heaton FERRITINon 11-26-2021 Ferritin [Mass/Vol] 63.0 ng/mL Normal 17.9-464.0 [facility] Comment on above: Performed By: #### C BC #### [facility] [address] [place] [address] Billy Deanen FREE THYROXINE INDEX T7on FTI 2.14 Normal [facility] Comment on above: Performed By: #### T 7, LIPA, TSH, AMADOU, CMP #### [facility] [address] [place] [address] Dr. Krystle Heaton T3U 34.0 % Normal 23.5-40.5 [facility] Comment on above: Performed By: #### T 7, LIPA, TSH, AMADOU, CMP #### [facility] [address] [place] [address] Dr. Krystle Heaton T4 [Mass/Vol] 6.30 ug/dL Normal 5.53-11.00 [facility] Comment on above: Performed By: #### T 7, LIPA, TSH, AMADOU, CMP #### [facility] [address] [place] [address] Dr. Krystle Heaton LIPASEon 11-26-2021 Lipase [Catalytic activity/Vol] 115.0 U/L Normal 23.0-300.0 [facility] Comment on above: Performed By: #### T 7, LIPA, TSH, AMADOU, CMP #### [facility] [address] [place] [address] Dr. Krystle Heaton PROF 14(COMP METB)on 022 Albumin [Mass/Vol] 3.6 g/dL Normal 3.5-5.0 [facility] Comment on above: Performed By: #### T 7, LIPA, TSH, AMADOU, CMP #### [facility] [address] [place] [address] Dr. Krystle Heaton Albumin/Globulin [Mass ratio] 0.9 {ratio} Normal [facility] Comment on above: Performed By: #### T 7, LIPA, TSH, AMADOU, CMP #### [facility] [address] [place] [address] Dr. Krystle Heaton ALP [Catalytic activity/Vol] 94 U/L Normal 38-126 [facility] Comment on above: Performed By: #### T 7, LIPA, TSH, AMADOU, CMP #### [facility] [address] [place] [address] Dr. Krystle Heaton ALT [Catalytic activity/Vol] 103 U/L Critically high 21-72 [facility] Comment on above: Performed By: #### T 7, LIPA, TSH, AMADOU, CMP #### [facility] [address] [place] [address] Dr. Krystle Heaton Anion gap [Moles/Vol] 12.8 mmol/L Normal [facility] Comment on above: Performed By: #### T 7, LIPA, TSH, AMADOU, CMP #### [facility] [address] [place] [address] Dr. Krystle Heaton AST [Catalytic activity/Vol] 148 U/L Critically high 17-59 [facility] Comment on above: Performed By: #### T 7, LIPA, TSH, AMADOU, CMP #### [facility] [address] [place] [address] Dr. Krystle Heaton Bilirubin [Mass/Vol] 1.2 mg/dL Normal 0.2-1.3 [facility] Comment on above: Performed By: #### T 7, LIPA, TSH, AMADOU, CMP #### [facility] [address] [place] [address] Dr. Krystle Heaton Calcium [Mass/Vol] 9.1 mg/dL Normal 8.4-10.2 [facility] Comment on above: Performed By: #### T 7, LIPA, TSH, AMADOU, CMP #### [facility] [address] [place] [address] Dr. Krystle Heaton Chloride [Moles/Vol] 100 mmol/L Normal 98-107 [facility] Comment on above: Performed By: #### T 7, LIPA, TSH, AMADOU, CMP #### [facility] [address] [place] [address] Dr. Krystle Heaton CO2 [Moles/Vol] 26.7 mmol/L Normal 22.0-30.0 [facility] Comment on above: Performed By: #### T 7, LIPA, TSH, AMADOU, CMP #### [facility] [address] [place] [address] Dr. Krystle Heaton Creatinine [Mass/Vol] 0.94 mg/dL Normal 0.66-1.25 [facility] Comment on above: Performed By: #### T 7, LIPA, TSH, AMADOU, CMP #### [facility] [address] [place] [address] Dr. Krystle Heaton EGFR-AF NIGERIEN >60 Normal >=60 [facility] Comment on above: Performed By: #### T 7, LIPA, TSH, AMADOU, CMP #### [facility] [address] [place] [address] Dr. Krystle Heaton EGFR-NON AF NIGERIEN >60 Normal >=60 [facility] Comment on above: Performed By: #### T 7, LIPA, TSH, AMADOU, CMP #### [facility] [address] [place] [address] Dr. Krystle Heaton Globulin (S) [Mass/Vol] 4.0 g/dL Normal [facility] Comment on above: Performed By: #### T 7, LIPA, TSH, AMADOU, CMP #### [facility] [address] [address] [address] Krystle Heaton Glucose [Mass/Vol] 112 mg/dL Critically high 74-106 [facility] Comment on above: Performed By: #### T 7, LIPA, TSH, AMADOU, CMP #### [facility] [address] [place] [address] Dr. Krystle Heaton Potassium [Moles/Vol] 4.5 mmol/L Normal 3.4-5.0 [facility] Comment on above: Performed By: #### T 7, LIPA, TSH, AMADOU, CMP #### [facility] [address] [place] [address] Dr. Krystle Heaton Protein [Mass/Vol] 7.6 g/dL Normal 6.1-8.2 [facility] Comment on above: Performed By: #### T 7, LIPA, TSH, AMADOU, CMP #### [facility] [address] [place] [address] Dr. Krystle Heaton Sodium [Moles/Vol] 135 mmol/L Critically low 137-145 [facility] Comment on above: Performed By: #### T 7, LIPA, TSH, AMADOU, CMP #### [facility] [address] [place] [address] Dr. Krystle Heaton Urea nitrogen [Mass/Vol] 5.0 mg/dL Critically low 9.0-20.0 [facility] Comment on above: Performed By: #### T 7, LIPA, TSH, AMADOU, CMP #### [facility] [address] [place] [address] Dr. Krystle Heaton Urea nitrogen/Creatinine [Mass ratio] 5.3 mg/mg Normal [facility] Comment on above: Performed By: #### T 7, LIPA, TSH, AMADOU, CMP #### [facility] [address] [place] [address] Dr. Krystle Heaton TSHon 11-26-2021 TSH 1.842 uIU/mL Normal 0.470-4.680 [facility] Comment on above: Performed By: #### T 7, LIPA, TSH, AMADOU, CMP #### [facility] [address] [place] [address] Dr. Krystle Heaton TSH RANGE SEE BELOW Normal [facility] Comment on above: Result Comment: <0.3 4 UIU/ml HYPERTHYROID 0.34-5.60 UIU/ml EUTHYROID >5.60 UIU/ml HYPOTHYROID Performed By: #### T 7, LIPA, TSH, AMADOU, CMP #### [facility] [address] [address] [address] Krystle Heaton Covid-19 PCR ([facility])on SARS-CoV-2 (COVID-19) RNA JIMBO+probe Ql (Unsp spec) Not detected Normal NOT DETECTED [facility] Comment on above: Result Comment: This test is not yet approved or cleared by the [place] FDA. When there are no FDA-approved or cleared tests available, and other criteria are met, FDA can make tests available under an emergency access mechanism called an Emergency Use Authorization (EUA). The EUA for this test is supported by the [place] of Health and Human Service's (HHS's) declaration [...] SARS-CoV-2. Performed By: #### F ERR #### [facility] [address] [place] [address] Dr. Krystle Heaton CBC AUTO DIFFon 10-08-2021 BASO # 0.0 103/ul Normal 0.0-0.1 [facility] Comment on above: Performed By: #### T 7, LIPA, TSH, AMADOU, CMP #### [facility] [address] [place] [address] Dr. Krystle Heaton Basophils/100 WBC (Bld) 0.7 % Normal 0.2-2.0 [facility] Comment on above: Performed By: #### T 7, LIPA, TSH, AMADOU, CMP #### [facility] [address] [place] [address] Dr. Krystle Heaton EO # 0.2 103/ul Normal 0.0-0.7 [facility] Comment on above: Performed By: #### T 7, LIPA, TSH, AMADOU, CMP #### [facility] [address] [place] [address] Dr. Krystle Heaton Eosinophils/100 WBC (Bld) 3.6 % Normal 0.9-7.0 [facility] Comment on above: Performed By: #### T 7, LIPA, TSH, AMADOU, CMP #### [facility] [address] [place] [address] Dr. Krystle Heaton Erythrocyte distribution width (RBC) [Ratio] 16.0 % Critically high 11.0-15.0 [facility] Comment on above: Performed By: #### T 7, LIPA, TSH, AMADOU, CMP #### [facility] [address] [place] [address] Dr. Krystle Heaton Hematocrit (Bld) [Volume fraction] 38.7 % Critically low 42.0-54.0 [facility] Comment on above: Performed By: #### T 7, LIPA, TSH, AMADOU, CMP #### [facility] [address] [place] [address] Dr. Krystle Heaton Hemoglobin (Bld) [Mass/Vol] 11.7 g/dL Critically low 14.0-18.0 [facility] Comment on above: Performed By: #### T 7, LIPA, TSH, AMADOU, CMP #### [facility] [address] [place] [address] Dr. Krystle Heaton IG # 0.01 10e3/ul Normal 0.00-0.03 [facility] Comment on above: Performed By: #### T 7, LIPA, TSH, AMADOU, CMP #### [facility] [address] [place] [address] Dr. Krystle Heaton IG % 0.2 % Normal 0.0-0.5 [facility] Comment on above: Performed By: #### T 7, LIPA, TSH, AMADOU, CMP #### [facility] [address] [place] [address] Dr. Krystle Heaton LYMPH # 1.6 103/ul Normal 1.2-3.8 [facility] Comment on above: Performed By: #### T 7, LIPA, TSH, AMADOU, CMP #### [facility] [address] [place] [address] Dr. Krystle Heaton Lymphocytes/100 WBC (Bld) 29.2 % Normal 20.5-60.0 [facility] Comment on above: Performed By: #### T 7, LIPA, TSH, AMADOU, CMP #### [facility] [address] [place] [address] Dr. Krystle Heaton MANUAL DIFF REQ NO Normal [facility] Comment on above: Performed By: #### T 7, LIPA, TSH, AMADOU, CMP #### [facility] [address] [place] [address] Dr. Krystle Heaton MCH (RBC) [Entitic mass] 27.7 pg Normal 25.9-34.0 [facility] Comment on above: Performed By: #### T 7, LIPA, TSH, AMADOU, CMP #### [facility] [address] [place] [address] Dr. Krystle Heaton MCHC (RBC) [Mass/Vol] 30.2 g/dL Normal 29.9-35.2 [facility] Comment on above: Performed By: #### T 7, LIPA, TSH, AMADOU, CMP #### [facility] [address] [place] [address] Dr. Krystle Heaton MCV (RBC) [Entitic vol] 91.5 fL Normal 80.0-94.0 [facility] Comment on above: Performed By: #### T 7, LIPA, TSH, AMADOU, CMP #### [facility] [address] [place] [address] Dr. Krystle Heaton MONO # 0.6 103/ul Normal 0.3-0.8 [facility] Comment on above: Performed By: #### T 7, LIPA, TSH, AMADOU, CMP #### [facility] [address] [place] [address] Dr. Krystle Heaton Monocytes/100 WBC (Bld) 10.5 % Normal 1.7-12.0 [facility] Comment on above: Performed By: #### T 7, LIPA, TSH, AMADOU, CMP #### [facility] [address] [place] [address] Dr. Krystle Heaton NEUT # 3.1 103/ul Normal 1.4-6.5 [facility] Comment on above: Performed By: #### T 7, LIPA, TSH, AMADOU, CMP #### [facility] [address] [place] [address] Dr. Krystle Heaton Neutrophils/100 WBC (Bld) 55.8 % Normal 43.0-75.0 [facility] Comment on above: Performed By: #### T 7, LIPA, TSH, AMADOU, CMP #### [facility] [address] [place] [address] Dr. Krystle Heaton Platelet mean volume (Bld) [Entitic vol] 10.9 fL Normal 9.5-13.5 [facility] Comment on above: Performed By: #### T 7, LIPA, TSH, AMADOU, CMP #### [facility] [address] [place] [address] Dr. Krystle Heaton PLT 214 103/ul Normal 150-450 [facility] Comment on above: Performed By: #### T 7, LIPA, TSH, AMADOU, CMP #### [facility] [address] [place] [address] Dr. Krystle Heaton RBC 4.23 106/ul Critically low 4.70-6.10 [facility] Comment on above: Performed By: #### T 7, LIPA, TSH, AMADOU, CMP #### [facility] [address] [place] [address] Dr. Krystle Heaton WBC 5.5 103/ul Normal 4.0-11.0 [facility] Comment on above: Performed By: #### T 7, LIPA, TSH, AMADOU, CMP #### [facility] [address] [place] [address] Dr. Krystle Heaton FERRITINon 10-08-2021 Ferritin [Mass/Vol] 59.0 ng/mL Normal 17.9-464.0 [facility] Comment on above: Performed By: #### T 7, LIPA, TSH, AMADOU, CMP #### [facility] [address] [place] [address] Dr. Krystle Heaton CBC AUTO DIFFon 09-10-2021 BASO # 0.0 103/ul Normal 0.0-0.1 [facility] Comment on above: Performed By: #### C BC #### [facility] [address] [place] [address] Billy Quita Basophils/100 WBC (Bld) 0.8 % Normal 0.2-2.0 [facility] Comment on above: Performed By: #### C BC #### [facility] [address] [place] [address] Billy Quita EO # 0.1 103/ul Normal 0.0-0.7 [facility] Comment on above: Performed By: #### C BC #### [facility] [address] [place] [address] Billy Quita Eosinophils/100 WBC (Bld) 3.5 % Normal 0.9-7.0 [facility] Comment on above: Performed By: #### C BC #### [facility] [address] [place] [address] Billy Quita Erythrocyte distribution width (RBC) [Ratio] 16.7 % Critically high 11.0-15.0 [facility] Comment on above: Performed By: #### C BC #### [facility] [address] [place] [address] Billy Quita Hematocrit (Bld) [Volume fraction] 40.6 % Critically low 42.0-54.0 [facility] Comment on above: Performed By: #### C BC #### [facility] [address] [id number] Billy Quita Hemoglobin (Bld) [Mass/Vol] 12.4 g/dL Critically low 14.0-18.0 [facility] Comment on above: Performed By: #### C BC #### [facility] [address] [id number] Billy Quita IG # 0.01 10e3/ul Normal 0.00-0.03 [facility] Comment on above: Performed By: #### C BC #### [facility] [address] [place], [place] [id number] Billy Quita IG % 0.3 % Normal 0.0-0.5 [facility] Comment on above: Performed By: #### C BC #### [facility] [address] [place] [address] Billy Quita LYMPH # 1.5 103/ul Normal 1.2-3.8 [facility] Comment on above: Performed By: #### C BC #### [facility] [address] [place] [address] Billy Quita Lymphocytes/100 WBC (Bld) 39.7 % Normal 20.5-60.0 [facility] Comment on above: Performed By: #### C BC #### [facility] [address] [place], [place] [id number] Billycarrillo Devlin MANUAL DIFF REQ NO Normal [facility] Comment on above: Performed By: #### C BC #### [facility] [address] [place], [place] [id number] Billy Quita MCH (RBC) [Entitic mass] 27.6 pg Normal 25.9-34.0 [facility] Comment on above: Performed By: #### C BC #### [facility] [address] [place], [place] [id number] Billy Quita MCHC (RBC) [Mass/Vol] 30.5 g/dL Normal 29.9-35.2 [facility] Comment on above: Performed By: #### C BC #### [facility] [address] [place], [place] [address] Billy Quita MCV (RBC) [Entitic vol] 90.2 fL Normal 80.0-94.0 [facility] Comment on above: Performed By: #### C BC #### [facility] [address] [place], [place] [address] Billycarrillo Deanen MONO # 0.5 103/ul Normal 0.3-0.8 [facility] Comment on above: Performed By: #### C BC #### [facility] [address] [id number] Billy Quita Monocytes/100 WBC (Bld) 13.3 % Critically high 1.7-12.0 [facility] Comment on above: Performed By: #### C BC #### [facility] [address] [id number] Billy Quita NEUT # 1.6 103/ul Normal 1.4-6.5 [facility] Comment on above: Performed By: #### C BC #### [facility] [address] [id number] Billycarrillo Deanen Neutrophils/100 WBC (Bld) 42.4 % Critically low 43.0-75.0 [facility] Comment on above: Performed By: #### C BC #### [facility] [address] [id number] Billycarrillo Devlin Platelet mean volume (Bld) [Entitic vol] 11.5 fL Normal 9.5-13.5 [facility] Comment on above: Performed By: #### C BC #### [facility] [address] [place], [place] [address] Billy Quita PLT 136 103/ul Critically low 150-450 [facility] Comment on above: Performed By: #### C BC #### [facility] [address] [place], [place] [address] Billy Quita RBC 4.50 106/ul Critically low 4.70-6.10 [facility] Comment on above: Performed By: #### C BC #### [facility] [address] [id number] Billy Quita WBC 3.7 103/ul Critically low 4.0-11.0 [facility] Comment on above: Performed By: #### C BC #### [facility] [address] [place] [address] Billy Devlin FERRITINon 09-10-2021 Ferritin [Mass/Vol] 106.0 ng/mL Normal 17.9-464.0 [facility] Comment on above: Performed By: #### F ERR #### [facility] [address] [place] [address] Dr. Krystle Heaton CBC AUTO DIFFon 08-15-2021 BASO # 0.0 103/ul Normal 0.0-0.1 [facility] Comment on above: Performed By: #### C BC #### [facility] [address] [place] [address] Dr. Krystle Heaton Basophils/100 WBC (Bld) 0.8 % Normal 0.2-2.0 [facility] Comment on above: Performed By: #### C BC #### [facility] [address] [place] [address] Dr. Krystle Heaton EO # 0.2 103/ul Normal 0.0-0.7 [facility] Comment on above: Performed By: #### C BC #### [facility] [address] [place] [address] Dr. Krystle Heaton Eosinophils/100 WBC (Bld) 4.4 % Normal 0.9-7.0 [facility] Comment on above: Performed By: #### C BC #### [facility] [address] [place] [address] Dr. Krystle Heaton Erythrocyte distribution width (RBC) [Ratio] 15.7 % Critically high 11.0-15.0 [facility] Comment on above: Performed By: #### C BC #### [facility] [address] [place] [address] Dr. Krystle Heaton Hematocrit (Bld) [Volume fraction] 39.4 % Critically low 42.0-54.0 [facility] Comment on above: Performed By: #### C BC #### [facility] [address] [place] [address] Dr. Krystle Heaton Hemoglobin (Bld) [Mass/Vol] 12.2 g/dL Critically low 14.0-18.0 [facility] Comment on above: Performed By: #### C BC #### [facility] [address] [place] [address] Dr. Krystle Heaton IG # 0.01 10e3/ul Normal 0.00-0.03 [facility] Comment on above: Performed By: #### C BC #### [facility] [address] [place] [address] Dr. Krystle Heaton IG % 0.2 % Normal 0.0-0.5 [facility] Comment on above: Performed By: #### C BC #### [facility] [address] [place] [address] Dr. Krystle Heaton LYMPH # 1.5 103/ul Normal 1.2-3.8 [facility] Comment on above: Performed By: #### C BC #### [facility] [address] [place] [address] Dr. Krystle Heaton Lymphocytes/100 WBC (Bld) 32.2 % Normal 20.5-60.0 [facility] Comment on above: Performed By: #### C BC #### [facility] [address] [place] [address] Dr. Krystle Heaton MANUAL DIFF REQ NO Normal [facility] Comment on above: Performed By: #### C BC #### [facility] [address] [place] [address] Dr. Krystle Heaton MCH (RBC) [Entitic mass] 27.4 pg Normal 25.9-34.0 [facility] Comment on above: Performed By: #### C BC #### [facility] [address] [place] [address] Dr. Krystle Heaton MCHC (RBC) [Mass/Vol] 31.0 g/dL Normal 29.9-35.2 [facility] Comment on above: Performed By: #### C BC #### [facility] [address] [place] [address] Dr. Krystle Heaton MCV (RBC) [Entitic vol] 88.5 fL Normal 80.0-94.0 [facility] Comment on above: Performed By: #### C BC #### [facility] [address] [place] [address] Dr. Krystle Heaton MONO # 0.6 103/ul Normal 0.3-0.8 [facility] Comment on above: Performed By: #### C BC #### [facility] [address] [place] [address] Dr. Krystle Heaton Monocytes/100 WBC (Bld) 11.7 % Normal 1.7-12.0 [facility] Comment on above: Performed By: #### C BC #### [facility] [address] [place] [address] Dr. Krystle Heaton NEUT # 2.4 103/ul Normal 1.4-6.5 [facility] Comment on above: Performed By: #### C BC #### [facility] [address] [place] [address] Dr. Krystle Heaton Neutrophils/100 WBC (Bld) 50.7 % Normal 43.0-75.0 [facility] Comment on above: Performed By: #### C BC #### [facility] [address] [place] [address] Dr. Krystle Heaton Platelet mean volume (Bld) [Entitic vol] 11.4 fL Normal 9.5-13.5 [facility] Comment on above: Performed By: #### C BC #### [facility] [address] [place] [address] Dr. Krystle Heaton PLT 169 103/ul Normal 150-450 [facility] Comment on above: Performed By: #### C BC #### [facility] [address] [place] [address] Dr. Krystle Heaton RBC 4.45 106/ul Critically low 4.70-6.10 [facility] Comment on above: Performed By: #### C BC #### [facility] [address] [place] [address] Dr. Krystle Heaton WBC 4.8 103/ul Normal 4.0-11.0 [facility] Comment on above: Performed By: #### C BC #### [facility] [address] [place], [place] [address] Dr. Krystle Heaton FERRITINon 08-15-2021 Ferritin [Mass/Vol] 103.0 ng/mL Normal 17.9-464.0 [facility] Comment on above: Performed By: #### T 7, LIPA, TSH, AMADOU, CMP #### [facility] [address] [place], [place] [address] Dr. Krystle Heaton No Panel Informationon 07-31 Name CHUY CHAPIN Pathologist: COLLETTE DOTSON MD Date of Procedure: 07/31/2021 Date Received: [address] Work Phone: Radiologyon 07-31-2021 US Guidance for fine needle aspiration of Liver Normal [facility] Work Phone: [facility] Surgical Pathology Depar tmenton 07-31-2021 [facility] Surgical Pathology Department Name CHUY CHAPIN Pathologist: [...] toto in 2 cassettes A1 and A2. [facility]/07/31/2021 The assays/tests were performed with appropriate positive and negative controls which stained appropriately. [facility] Department of Pathology [address] [place] [address] Normal [facility] Comment on above: Performed By: #### U [facility] #### [facility] Surgical Pathology Department [address] [place] [address] US BIOPSY LIVER PERon 2020 US BIOPSY LIVER PER Patient Name: CHUY CHAPIN STUDY: US BIOPSY LIVER PER; 07/31/2021 1:03 pm PROCEDURE: ULTRASOUND GUIDED NON TARGETED RANDOM BIOPSY OF THE LIVER INDICATION: Hemochromatosis; here for tissue diagnosis COMPARISON: CT-guided liver biopsy 05/08/2021. ACCESSION NUMBER(S): [id number] ORDERING CLINICIAN: ENOCH HERRMANN ART OBJECTS SUPERVISOR: Dr. Roland (attending) Dee Lopes MD [...] as stated. This study was interpreted at [place], [place]. Electronically signed by: SANDY ROLAND MD [facility] CBC AUTO DIFFon 07-28-2021 BASO # 0.0 103/ul Normal 0.0-0.1 [facility] Comment on above: Performed By: #### T 7, LIPA, TSH, AMADOU, CMP #### [facility] [address] [place] [address] Dr. Krystle Heaton Basophils/100 WBC (Bld) 0.6 % Normal 0.2-2.0 [facility] Comment on above: Performed By: #### T 7, LIPA, TSH, AMADOU, CMP #### [facility] [address] [place] [address] Dr. Krystle Heaton EO # 0.2 103/ul Normal 0.0-0.7 [facility] Comment on above: Performed By: #### T 7, LIPA, TSH, AMADOU, CMP #### [facility] [address] [place] [address] Dr. Krystle Heaton Eosinophils/100 WBC (Bld) 3.6 % Normal 0.9-7.0 [facility] Comment on above: Performed By: #### T 7, LIPA, TSH, AMADOU, CMP #### [facility] [address] [place] [address] Dr. Krystle Heaton Erythrocyte distribution width (RBC) [Ratio] 14.7 % Normal 11.0-15.0 [facility] Comment on above: Performed By: #### T 7, LIPA, TSH, AMADOU, CMP #### [facility] [address] [place] [address] Dr. Krystle Heaton Hematocrit (Bld) [Volume fraction] 37.4 % Critically low 42.0-54.0 [facility] Comment on above: Performed By: #### T 7, LIPA, TSH, AMADOU, CMP #### [facility] [address] [place] [address] Dr. Krystle Heaton Hemoglobin (Bld) [Mass/Vol] 11.5 g/dL Critically low 14.0-18.0 [facility] Comment on above: Performed By: #### T 7, LIPA, TSH, AMADOU, CMP #### [facility] [address] [place] [address] Dr. Krystle Heaton IG # 0.02 10e3/ul Normal 0.00-0.03 [facility] Comment on above: Performed By: #### T 7, LIPA, TSH, AMADOU, CMP #### [facility] [address] [place] [address] Dr. Krystle Heaton IG % 0.4 % Normal 0.0-0.5 [facility] Comment on above: Performed By: #### T 7, LIPA, TSH, AMADOU, CMP #### [facility] [address] [place] [address] Dr. Krystle Heaton LYMPH # 1.5 103/ul Normal 1.2-3.8 [facility] Comment on above: Performed By: #### T 7, LIPA, TSH, AMADOU, CMP #### [facility] [address] [place] [address] Dr. Krystle Heaton Lymphocytes/100 WBC (Bld) 31.3 % Normal 20.5-60.0 [facility] Comment on above: Performed By: #### T 7, LIPA, TSH, AMADOU, CMP #### [facility] [address] [place] [address] Dr. Krystle Heaton MANUAL DIFF REQ NO Normal [facility] Comment on above: Performed By: #### T 7, LIPA, TSH, AMADOU, CMP #### [facility] [address] [place] [address] Dr. Krystle Heaton MCH (RBC) [Entitic mass] 27.8 pg Normal 25.9-34.0 [facility] Comment on above: Performed By: #### T 7, LIPA, TSH, AMADOU, CMP #### [facility] [address] [place] [address] Dr. Krystle Heaton MCHC (RBC) [Mass/Vol] 30.7 g/dL Normal 29.9-35.2 [facility] Comment on above: Performed By: #### T 7, LIPA, TSH, AMADOU, CMP #### [facility] [address] [place] [address] Dr. Krystle Heaton MCV (RBC) [Entitic vol] 90.6 fL Normal 80.0-94.0 [facility] Comment on above: Performed By: #### T 7, LIPA, TSH, AMADOU, CMP #### [facility] [address] [place] [address] Dr. Krystle Heaton MONO # 0.6 103/ul Normal 0.3-0.8 [facility] Comment on above: Performed By: #### T 7, LIPA, TSH, AMADOU, CMP #### [facility] [address] [place] [address] Dr. Krystle Heaton Monocytes/100 WBC (Bld) 12.8 % Critically high 1.7-12.0 [facility] Comment on above: Performed By: #### T 7, LIPA, TSH, AMADOU, CMP #### [facility] [address] [place] [address] Dr. Krystle Heaton NEUT # 2.4 103/ul Normal 1.4-6.5 [facility] Comment on above: Performed By: #### T 7, LIPA, TSH, AMADOU, CMP #### [facility] [address] [place] [address] Dr. Krystle Heaton Neutrophils/100 WBC (Bld) 51.3 % Normal 43.0-75.0 [facility] Comment on above: Performed By: #### T 7, LIPA, TSH, AMADOU, CMP #### [facility] [address] [place] [address] Dr. Krystle Heaton Platelet mean volume (Bld) [Entitic vol] 11.4 fL Normal 9.5-13.5 [facility] Comment on above: Performed By: #### T 7, LIPA, TSH, AMADOU, CMP #### [facility] [address] [place] [address] Dr. Krystle Heaton PLT 190 103/ul Normal 150-450 [facility] Comment on above: Performed By: #### T 7, LIPA, TSH, AMADOU, CMP #### [facility] [address] [place] [address] Dr. Krystle Heaton RBC 4.13 106/ul Critically low 4.70-6.10 [facility] Comment on above: Performed By: #### T 7, LIPA, TSH, AMADOU, CMP #### [facility] [address] [place] [address] Dr. Krystle Heaton WBC 4.7 103/ul Normal 4.0-11.0 [facility] Comment on above: Performed By: #### T 7, LIPA, TSH, AMADOU, CMP #### [facility] [address] [place] [address] Dr. Krystle Heaton PROTIMEon 07-28-2021 INR Coag (PPP) [Relative time] 1.00 {INR} Normal [facility] Comment on above: Performed By: #### H BSANS #### [facility] [address] [place] [address] Billy Devlin INR GUIDELINES SEE BELOW Normal [facility] Comment on above: Result Comment: MOUNA RED INR: 2.0 - 3.0 CONDITIONS NOT LISTED BELOW 2.5 - 3.5 FOR PROSTHETIC HEART VALVE REPLACEMENT 2.5 - 3.5 RECURRENT THROMBOSIS Performed By: #### H BSANS #### [facility] [address] [place] [address] Billy Devlin PT Coag (PPP) [Time] 10.8 s Normal 9.0-11.6 [facility] Comment on above: Performed By: #### H BSANS #### [facility] [address] [place] [address] Billy Devlin CBC AUTO DIFFon 07-09-2021 BASO # 0.0 103/ul Normal 0.0-0.1 [facility] Comment on above: Performed By: #### T 7, LIPA, TSH, AMADOU, CMP #### [facility] [address] [place] [address] Dr. Krystle Heaton Basophils/100 WBC (Bld) 0.4 % Normal 0.2-2.0 [facility] Comment on above: Performed By: #### T 7, LIPA, TSH, AMADOU, CMP #### [facility] [address] [place] [address] Dr. Krystle Heaton EO # 0.2 103/ul Normal 0.0-0.7 [facility] Comment on above: Performed By: #### T 7, LIPA, TSH, AMADOU, CMP #### [facility] [address] [place] [address] Dr. Krystle Heaton Eosinophils/100 WBC (Bld) 2.9 % Normal 0.9-7.0 [facility] Comment on above: Performed By: #### T 7, LIPA, TSH, AMADOU, CMP #### [facility] [address] [place] [address] Dr. Krystle Heaton Erythrocyte distribution width (RBC) [Ratio] 13.9 % Normal 11.0-15.0 [facility] Comment on above: Performed By: #### T 7, LIPA, TSH, AMADOU, CMP #### [facility] [address] [place] [address] Dr. Krystle Heaton Hematocrit (Bld) [Volume fraction] 40.4 % Critically low 42.0-54.0 [facility] Comment on above: Performed By: #### T 7, LIPA, TSH, AMADOU, CMP #### [facility] [address] [place] [address] Dr. Krystle Heaton Hemoglobin (Bld) [Mass/Vol] 12.3 g/dL Critically low 14.0-18.0 [facility] Comment on above: Performed By: #### T 7, LIPA, TSH, AMADOU, CMP #### [facility] [address] [place] [address] Dr. Krystle Heaton IG # 0.03 10e3/ul Normal 0.00-0.03 [facility] Comment on above: Performed By: #### T 7, LIPA, TSH, AMADOU, CMP #### [facility] [address] [place] [address] Dr. Krystle Heaton IG % 0.6 % Critically high 0.0-0.5 [facility] Comment on above: Performed By: #### T 7, LIPA, TSH, AMADOU, CMP #### [facility] [address] [place] [address] Dr. Krystle Heaton LYMPH # 1.5 103/ul Normal 1.2-3.8 [facility] Comment on above: Performed By: #### T 7, LIPA, TSH, AMADOU, CMP #### [facility] [address] [place] [address] Dr. Krystle Heaton Lymphocytes/100 WBC (Bld) 28.3 % Normal 20.5-60.0 [facility] Comment on above: Performed By: #### T 7, LIPA, TSH, AMADOU, CMP #### [facility] [address] [place] [address] Dr. Krystle Heaton MANUAL DIFF REQ NO Normal [facility] Comment on above: Performed By: #### T 7, LIPA, TSH, AMADOU, CMP #### [facility] [address] [place] [address] Dr. Krystle Heaton MCH (RBC) [Entitic mass] 28.3 pg Normal 25.9-34.0 [facility] Comment on above: Performed By: #### T 7, LIPA, TSH, AMADOU, CMP #### [facility] [address] [place] [address] Dr. Krystle Heaton MCHC (RBC) [Mass/Vol] 30.4 g/dL Normal 29.9-35.2 [facility] Comment on above: Performed By: #### T 7, LIPA, TSH, AMADOU, CMP #### [facility] [address] [place] [address] Dr. Krystle Heaton MCV (RBC) [Entitic vol] 93.1 fL Normal 80.0-94.0 [facility] Comment on above: Performed By: #### T 7, LIPA, TSH, AMADOU, CMP #### [facility] [address] [place] [address] Dr. Krystle Heaton MONO # 0.7 103/ul Normal 0.3-0.8 [facility] Comment on above: Performed By: #### T 7, LIPA, TSH, AMADOU, CMP #### [facility] [address] [place] [address] Dr. Krystle Heaton Monocytes/100 WBC (Bld) 13.4 % Critically high 1.7-12.0 [facility] Comment on above: Performed By: #### T 7, LIPA, TSH, AMADOU, CMP #### [facility] [address] [place] [address] Dr. Krystle Heaton NEUT # 2.8 103/ul Normal 1.4-6.5 [facility] Comment on above: Performed By: #### T 7, LIPA, TSH, AMADOU, CMP #### [facility] [address] [place] [address] Dr. Krystle Heaton Neutrophils/100 WBC (Bld) 54.4 % Normal 43.0-75.0 [facility] Comment on above: Performed By: #### T 7, LIPA, TSH, AMADOU, CMP #### [facility] [address] [place] [address] Dr. Krystle Heaton Platelet mean volume (Bld) [Entitic vol] 11.7 fL Normal 9.5-13.5 [facility] Comment on above: Performed By: #### T 7, LIPA, TSH, AMADOU, CMP #### [facility] [address] [place] [address] Dr. Krystle Heaton PLT 192 103/ul Normal 150-450 [facility] Comment on above: Performed By: #### T 7, LIPA, TSH, AMADOU, CMP #### [facility] [address] [place] [address] Dr. Krystle Heaton RBC 4.34 106/ul Critically low 4.70-6.10 [facility] Comment on above: Performed By: #### T 7, LIPA, TSH, AMADOU, CMP #### [facility] [address] [place] [address] Dr. Krystle Heaton WBC 5.2 103/ul Normal 4.0-11.0 [facility] Comment on above: Performed By: #### T 7, LIPA, TSH, AMADOU, CMP #### [facility] [address] [place] [address] Dr. Krystle Heaton FERRITINon 07-09-2021 Ferritin [Mass/Vol] 122.0 ng/mL Normal 17.9-464.0 [facility] Comment on above: Performed By: #### T 7, LIPA, TSH, AMADOU, CMP #### [facility] [address] [place] [address] Dr. Krystle Heaton CBC AUTO DIFFon 06-11-2021 BASO # 0.0 103/ul Normal 0.0-0.1 [facility] Comment on above: Performed By: #### T 7, LIPA, TSH, AMADOU, CMP #### [facility] [address] [place] [address] Dr. Krystle Heaton Basophils/100 WBC (Bld) 0.7 % Normal 0.2-2.0 [facility] Comment on above: Performed By: #### T 7, LIPA, TSH, MAADOU, CMP #### [facility] [address] [place] [address] Dr. Krystle Heaton EO # 0.2 103/ul Normal 0.0-0.7 [facility] Comment on above: Performed By: #### T 7, LIPA, TSH, AMADOU, CMP #### [facility] [address] [place] [address] Dr. Krystle Heaton Eosinophils/100 WBC (Bld) 3.9 % Normal 0.9-7.0 [facility] Comment on above: Performed By: #### T 7, LIPA, TSH, AMADOU, CMP #### [facility] [address] [place] [address] Dr. Krystle Heaton Erythrocyte distribution width (RBC) [Ratio] 13.0 % Normal 11.0-15.0 [facility] Comment on above: Performed By: #### T 7, LIPA, TSH, AMADOU, CMP #### [facility] [address] [place] [address] Dr. Krystle Heaton Hematocrit (Bld) [Volume fraction] 39.0 % Critically low 42.0-54.0 [facility] Comment on above: Performed By: #### T 7, LIPA, TSH, AMADOU, CMP #### [facility] [address] [place] [address] Dr. Krystle Heaton Hemoglobin (Bld) [Mass/Vol] 12.4 g/dL Critically low 14.0-18.0 [facility] Comment on above: Performed By: #### T 7, LIPA, TSH, AMADOU, CMP #### [facility] [address] [place] [address] Dr. Krystle Heaton IG # 0.01 10e3/ul Normal 0.00-0.03 [facility] Comment on above: Performed By: #### T 7, LIPA, TSH, AMADOU, CMP #### [facility] [address] [place] [address] Dr. Krystle Heaton IG % 0.2 % Normal 0.0-0.5 [facility] Comment on above: Performed By: #### T 7, LIPA, TSH, AMADOU, CMP #### [facility] [address] [place] [address] Dr. Krystle Heaton LYMPH # 1.0 103/ul Critically low 1.2-3.8 [facility] Comment on above: Performed By: #### T 7, LIPA, TSH, AMADOU, CMP #### [facility] [address] [place] [address] Dr. Krystle Heaton Lymphocytes/100 WBC (Bld) 23.1 % Normal 20.5-60.0 [facility] Comment on above: Performed By: #### T 7, LIPA, TSH, AMADOU, CMP #### [facility] [address] [place] [address] Dr. Krystle Heaton MANUAL DIFF REQ NO Normal [facility] Comment on above: Performed By: #### T 7, LIPA, TSH, AMADOU, CMP #### [facility] [address] [place] [address] Dr. Krystle Heaton MCH (RBC) [Entitic mass] 31.2 pg Normal 25.9-34.0 [facility] Comment on above: Performed By: #### T 7, LIPA, TSH, AMADOU, CMP #### [facility] [address] [place] [address] Dr. Krystle Heaton MCHC (RBC) [Mass/Vol] 31.8 g/dL Normal 29.9-35.2 [facility] Comment on above: Performed By: #### T 7, LIPA, TSH, AMADOU, CMP #### [facility] [address] [place] [address] Dr. Krystle Heaton MCV (RBC) [Entitic vol] 98.2 fL Critically high 80.0-94.0 [facility] Comment on above: Performed By: #### T 7, LIPA, TSH, AMADOU, CMP #### [facility] [address] [place] [address] Dr. Krystle Heaton MONO # 0.5 103/ul Normal 0.3-0.8 [facility] Comment on above: Performed By: #### T 7, LIPA, TSH, AMADOU, CMP #### [facility] [address] [place] [address] Dr. Krystle Heaton Monocytes/100 WBC (Bld) 10.4 % Normal 1.7-12.0 [facility] Comment on above: Performed By: #### T 7, LIPA, TSH, AMADOU, CMP #### [facility] [address] [place] [address] Dr. Krystle Heaton NEUT # 2.7 103/ul Normal 1.4-6.5 [facility] Comment on above: Performed By: #### T 7, LIPA, TSH, AMADOU, CMP #### [facility] [address] [place] [address] [address] Krystle Heaton Neutrophils/100 WBC (Bld) 61.7 % Normal 43.0-75.0 [facility] Comment on above: Performed By: #### T 7, LIPA, TSH, AMADOU, CMP #### [facility] [address] [place] [address] Dr. Krystle Heaton Platelet mean volume (Bld) [Entitic vol] 10.8 fL Normal 9.5-13.5 [facility] Comment on above: Performed By: #### T 7, LIPA, TSH, AMADOU, CMP #### [facility] [address] [place] [address] Dr. Krystle Heaton PLT 197 103/ul Normal 150-450 [facility] Comment on above: Performed By: #### T 7, LIPA, TSH, AMADOU, CMP #### [facility] [address] [place] [address] Dr. Krystle Heaton RBC 3.97 106/ul Critically low 4.70-6.10 [facility] Comment on above: Performed By: #### T 7, LIPA, TSH, AMADOU, CMP #### [facility] [address] [place] [address] Dr. Krystle Heaton WBC 4.3 103/ul Normal 4.0-11.0 [facility] Comment on above: Performed By: #### T 7, LIPA, TSH, AMADOU, CMP #### [facility] [address] [place] [address] Dr. Krystle Heaton FERRITINon 06-11-2021 Ferritin [Mass/Vol] 107.0 ng/mL Normal 17.9-464.0 [facility] Comment on above: Performed By: #### T 7, LIPA, TSH, AMADOU, CMP #### [facility] [address] [place] [address] Dr. Krystle Heaton CBC AUTO DIFFon 05-28-2021 BASO # 0.0 103/ul Normal 0.0-0.1 [facility] Comment on above: Performed By: #### T 7, LIPA, TSH, AMADOU, CMP #### [facility] [address] [place] [address] Dr. Krystle Heaton Basophils/100 WBC (Bld) 0.5 % Normal 0.2-2.0 [facility] Comment on above: Performed By: #### T 7, LIPA, TSH, AMADOU, CMP #### [facility] [address] [place] [address] Dr. Krystle Heaton EO # 0.1 103/ul Normal 0.0-0.7 [facility] Comment on above: Performed By: #### T 7, LIPA, TSH, AMADOU, CMP #### [facility] [address] [place] [address] Dr. Krystle Heaton Eosinophils/100 WBC (Bld) 3.5 % Normal 0.9-7.0 [facility] Comment on above: Performed By: #### T 7, LIPA, TSH, AMADOU, CMP #### [facility] [address] [place] [address] Dr. Krystle Heaton Erythrocyte distribution width (RBC) [Ratio] 12.6 % Normal 11.0-15.0 [facility] Comment on above: Performed By: #### T 7, LIPA, TSH, AMADOU, CMP #### [facility] [address] [place] [address] Dr. Krystle Heaton Hematocrit (Bld) [Volume fraction] 39.8 % Critically low 42.0-54.0 [facility] Comment on above: Performed By: #### T 7, LIPA, TSH, AMADOU, CMP #### [facility] [address] [place] [address] Dr. Krystle Heaton Hemoglobin (Bld) [Mass/Vol] 12.5 g/dL Critically low 14.0-18.0 [facility] Comment on above: Performed By: #### T 7, LIPA, TSH, AMADOU, CMP #### [facility] [address] [place] [address] Dr. Krystle Heaton IG # 0.00 10e3/ul Normal 0.00-0.03 [facility] Comment on above: Performed By: #### T 7, LIPA, TSH, AMADOU, CMP #### [facility] [address] [place] [address] Dr. Krystle Heaton IG % 0.0 % Normal 0.0-0.5 [facility] Comment on above: Performed By: #### T 7, LIPA, TSH, AMADOU, CMP #### [facility] [address] [place] [address] Dr. Krystle Heaton LYMPH # 1.2 103/ul Normal 1.2-3.8 [facility] Comment on above: Performed By: #### T 7, LIPA, TSH, AMADOU, CMP #### [facility] [address] [place] [address] Dr. Krystle Heaton Lymphocytes/100 WBC (Bld) 32.7 % Normal 20.5-60.0 [facility] Comment on above: Performed By: #### T 7, LIPA, TSH, AMADOU, CMP #### [facility] [address] [place] [address] Dr. Krystle Heaton MANUAL DIFF REQ NO Normal [facility] Comment on above: Performed By: #### T 7, LIPA, TSH, AMADOU, CMP #### [facility] [address] [place] [address] Dr. Krystle Heaton MCH (RBC) [Entitic mass] 32.1 pg Normal 25.9-34.0 [facility] Comment on above: Performed By: #### T 7, LIPA, TSH, AMADOU, CMP #### [facility] [address] [place] [address] Dr. Krystle Heaton MCHC (RBC) [Mass/Vol] 31.4 g/dL Normal 29.9-35.2 [facility] Comment on above: Performed By: #### T 7, LIPA, TSH, AMADOU, CMP #### [facility] [address] [place] [address] Dr. Krystle Heaton MCV (RBC) [Entitic vol] 102.3 fL Critically high 80.0-94.0 [facility] Comment on above: Performed By: #### T 7, LIPA, TSH, AMADOU, CMP #### [facility] [address] [address] [address] Krystle Heaton MONO # 0.4 103/ul Normal 0.3-0.8 [facility] Comment on above: Performed By: #### T 7, LIPA, TSH, AMADOU, CMP #### [facility] [address] [place] [address] Dr. Krystle Heaton Monocytes/100 WBC (Bld) 10.5 % Normal 1.7-12.0 [facility] Comment on above: Performed By: #### T 7, LIPA, TSH, AMADOU, CMP #### [facility] [address] [place] [address] Dr. Krystle Heaton NEUT # 2.0 103/ul Normal 1.4-6.5 [facility] Comment on above: Performed By: #### T 7, LIPA, TSH, AMADOU, CMP #### [facility] [address] [place] [address] Dr. Krystle Heaton Neutrophils/100 WBC (Bld) 52.8 % Normal 43.0-75.0 [facility] Comment on above: Performed By: #### T 7, LIPA, TSH, AMADOU, CMP #### [facility] [address] [place] [address] Dr. Krystle Heaton Platelet mean volume (Bld) [Entitic vol] 10.7 fL Normal 9.5-13.5 [facility] Comment on above: Performed By: #### T 7, LIPA, TSH, AMADOU, CMP #### [facility] [address] [place] [address] Dr. Krystle Heaton PLT 227 103/ul Normal 150-450 [facility] Comment on above: Performed By: #### T 7, LIPA, TSH, AMADOU, CMP #### [facility] [address] [place] [address] Dr. Krystle Heaton RBC 3.89 106/ul Critically low 4.70-6.10 [facility] Comment on above: Performed By: #### T 7, LIPA, TSH, AMADOU, CMP #### [facility] [address] [address] [address] Krystle Heaton WBC 3.7 103/ul Critically low 4.0-11.0 [facility] Comment on above: Performed By: #### T 7, LIPA, TSH, AMADOU, CMP #### [facility] [address] [place] [address] Dr. Krystle Heaton FERRITINon 05-28-2021 Ferritin [Mass/Vol] 169.0 ng/mL Normal 17.9-464.0 [facility] Comment on above: Performed By: #### F ERR #### [facility] [address] [address] [address] Krystle Heaton METHYLMALONIC ACID (MMA)on 0 05-18-2021 Disclaimer: Comment Normal [facility] Comment on above: Result Comment: This test was developed and its performance characteristics determined by [employer]. It has not been cleared or approved by the Food and Drug Administration. Performed By: #### T 7, LIPA, TSH, AMADOU, CMP #### [facility] [address] [place] [address] Dr. Krystle Heaton Methylmalonic Acid, Serum 124 nmol/L Normal 0-378 [facility] Comment on above: Performed By: #### T 7, LIPA, TSH, AMADOU, CMP #### [facility] [address] [place] [address] Dr. Krystle Heaton HOMOCYSTEINEon 05-16-2021 Homocyst(e)ine, Plasma 19.5 umol/L Critically high 0.0-14.5 [facility] Comment on above: Performed By: #### T 7, LIPA, TSH, AMADOU, CMP #### [facility] [address] [place] [address] Dr. Krystle Heaton CBC AUTO DIFFon 05-15-2021 BASO # 0.0 103/ul Normal 0.0-0.1 [facility] Comment on above: Performed By: #### T 7, LIPA, TSH, AMADOU, CMP #### [facility] [address] [place] [address] Dr. Krystle Heaton Basophils/100 WBC (Bld) 0.5 % Normal 0.2-2.0 [facility] Comment on above: Performed By: #### T 7, LIPA, TSH, AMADOU, CMP #### [facility] [address] [place] [address] Dr. Krystle Heaton EO # 0.1 103/ul Normal 0.0-0.7 [facility] Comment on above: Performed By: #### T 7, LIPA, TSH, AMADOU, CMP #### [facility] [address] [place] [address] Dr. Krystle Heaton Eosinophils/100 WBC (Bld) 1.8 % Normal 0.9-7.0 [facility] Comment on above: Performed By: #### T 7, LIPA, TSH, AMADOU, CMP #### [facility] [address] [place] [address] Dr. Krystle Heaton Erythrocyte distribution width (RBC) [Ratio] 12.7 % Normal 11.0-15.0 [facility] Comment on above: Performed By: #### T 7, LIPA, TSH, AMADOU, CMP #### [facility] [address] [place] [address] Dr. Krystle Heaton Hematocrit (Bld) [Volume fraction] 39.4 % Critically low 42.0-54.0 [facility] Comment on above: Performed By: #### T 7, LIPA, TSH, AMADOU, CMP #### [facility] [address] [place] [address] Dr. Krystle Heaton Hemoglobin (Bld) [Mass/Vol] 12.9 g/dL Critically low 14.0-18.0 [facility] Comment on above: Performed By: #### T 7, LIPA, TSH, AMADOU, CMP #### [facility] [address] [place] [address] Dr. Krystle Heaton IG # 0.02 10e3/ul Normal 0.00-0.03 [facility] Comment on above: Performed By: #### T 7, LIPA, TSH, AMADOU, CMP #### [facility] [address] [place] [address] Dr. Krystle Heaton IG % 0.4 % Normal 0.0-0.5 [facility] Comment on above: Performed By: #### T 7, LIPA, TSH, AMADOU, CMP #### [facility] [address] [place] [address] Dr. Krystle Heaton LYMPH # 1.4 103/ul Normal 1.2-3.8 [facility] Comment on above: Performed By: #### T 7, LIPA, TSH, AMADOU, CMP #### [facility] [address] [place] [address] Dr. Krystle Heaton Lymphocytes/100 WBC (Bld) 24.9 % Normal 20.5-60.0 [facility] Comment on above: Performed By: #### T 7, LIPA, TSH, AMADOU, CMP #### [facility] [address] [place] [address] Dr. Krystle Heaton MANUAL DIFF REQ NO Normal [facility] Comment on above: Performed By: #### T 7, LIPA, TSH, AMADOU, CMP #### [facility] [address] [place] [address] Dr. Krystle Heaton MCH (RBC) [Entitic mass] 34.0 pg Normal 25.9-34.0 [facility] Comment on above: Performed By: #### T 7, LIPA, TSH, AMADOU, CMP #### [facility] [address] [place] [address] Dr. Krystle Heaton MCHC (RBC) [Mass/Vol] 32.7 g/dL Normal 29.9-35.2 [facility] Comment on above: Performed By: #### T 7, LIPA, TSH, AMADOU, CMP #### [facility] [address] [place] [address] Dr. Krystle Heaton MCV (RBC) [Entitic vol] 104.0 fL Critically high 80.0-94.0 [facility] Comment on above: Performed By: #### T 7, LIPA, TSH, AMADOU, CMP #### [facility] [address] [place] [address] Dr. Krystle Heaton MONO # 0.7 103/ul Normal 0.3-0.8 [facility] Comment on above: Performed By: #### T 7, LIPA, TSH, AMADOU, CMP #### [facility] [address] [address] [address] Krystle Heaton Monocytes/100 WBC (Bld) 11.8 % Normal 1.7-12.0 [facility] Comment on above: Performed By: #### T 7, LIPA, TSH, AMADOU, CMP #### [facility] [address] [place] [address] Dr. Krystle Heaton NEUT # 3.3 103/ul Normal 1.4-6.5 [facility] Comment on above: Performed By: #### T 7, LIPA, TSH, AMADOU, CMP #### [facility] [address] [place] [address] Dr. Krystle Heaton Neutrophils/100 WBC (Bld) 60.6 % Normal 43.0-75.0 [facility] Comment on above: Performed By: #### T 7, LIPA, TSH, AMADOU, CMP #### [facility] [address] [place] [address] Dr. Krystle Heaton Platelet mean volume (Bld) [Entitic vol] 10.2 fL Normal 9.5-13.5 [facility] Comment on above: Performed By: #### T 7, LIPA, TSH, AMADOU, CMP #### [facility] [address] [place] [address] Dr. Krystle Heaton PLT 196 103/ul Normal 150-450 [facility] Comment on above: Performed By: #### T 7, LIPA, TSH, AMADOU, CMP #### [facility] [address] [place] [address] Dr. Krystle Heaton RBC 3.79 106/ul Critically low 4.70-6.10 [facility] Comment on above: Performed By: #### T 7, LIPA, TSH, AMADOU, CMP #### [facility] [address] [place] [address] Dr. Krystle Heaton WBC 5.5 103/ul Normal 4.0-11.0 [facility] Comment on above: Performed By: #### T 7, LIPA, TSH, AMADOU, CMP #### [facility] [address] [place], [place] [id number] Dr. Krystle Heaton FERRITINon 05-15-2021 Ferritin [Mass/Vol] 302.0 ng/mL Normal 17.9-464.0 [facility] Comment on above: Performed By: #### C BC #### [facility] [address] [place], [place] [id number] Billy Devlin PROF 14(COMP METB)on 021 Albumin [Mass/Vol] 3.5 g/dL Normal 3.5-5.0 [facility] Comment on above: Performed By: #### C BC #### [facility] [address] [place], [place] [id number] Billycarrillo Devlin Albumin/Globulin [Mass ratio] 1.0 {ratio} Normal [facility] Comment on above: Performed By: #### C BC #### [facility] [address] [place] [address] Billy Quita ALP [Catalytic activity/Vol] 71 U/L Normal 38-126 [facility] Comment on above: Performed By: #### C BC #### [facility] [address] [place], [place] [id number] Billy Quita ALT [Catalytic activity/Vol] 40 U/L Normal 21-72 [facility] Comment on above: Performed By: #### C BC #### [facility] [address] [place], [place] [id number] Billy Quita Anion gap [Moles/Vol] 17.5 mmol/L Normal [facility] Comment on above: Performed By: #### C BC #### [facility] [address] [place], [place] [id number] Billy Quita AST [Catalytic activity/Vol] 43 U/L Normal 17-59 [facility] Comment on above: Performed By: #### C BC #### [facility] [address] [place], [place] [id number] Billy Quita Bilirubin [Mass/Vol] 0.3 mg/dL Normal 0.2-1.3 [facility] Comment on above: Performed By: #### C BC #### [facility] [address] [address] Billy Quita Calcium [Mass/Vol] 8.8 mg/dL Normal 8.4-10.2 [facility] Comment on above: Performed By: #### C BC #### [facility] [address] [address] Billy Quita Chloride [Moles/Vol] 101 mmol/L Normal 98-107 [facility] Comment on above: Performed By: #### C BC #### [facility] [address] [address] Billy Quita CO2 [Moles/Vol] 26.6 mmol/L Normal 22.0-30.0 [facility] Comment on above: Performed By: #### C BC #### [facility] [address] [place] [address] Billy Quita Creatinine [Mass/Vol] 0.88 mg/dL Normal 0.66-1.25 [facility] Comment on above: Performed By: #### C BC #### [facility] [address] [place] [address] Billy Quita EGFR-AF NIGERIEN >60 Normal >=60 [facility] Comment on above: Performed By: #### C BC #### [facility] [address] [place] [address] Billy Quita EGFR-NON AF NIGERIEN >60 Normal >=60 [facility] Comment on above: Performed By: #### C BC #### [facility] [address] [place] [address] Billy Quita Globulin (S) [Mass/Vol] 3.6 g/dL Normal [facility] Comment on above: Performed By: #### C BC #### [facility] [address] [place] [address] Billy Quita Glucose [Mass/Vol] 101 mg/dL Normal 74-106 [facility] Comment on above: Performed By: #### C BC #### [facility] [address] [place], [place] [address] Billy Quita Potassium [Moles/Vol] 4.1 mmol/L Normal 3.4-5.0 [facility] Comment on above: Performed By: #### C BC #### [facility] [address] [place], [place] [address] Billy Quita Protein [Mass/Vol] 7.1 g/dL Normal 6.1-8.2 [facility] Comment on above: Performed By: #### C BC #### [facility] [address] [place], [place] [address] Bilyl Quita Sodium [Moles/Vol] 141 mmol/L Normal 137-145 [facility] Comment on above: Performed By: #### C BC #### [facility] [address] [id number] Billy Quita Urea nitrogen [Mass/Vol] 11.0 mg/dL Normal 9.0-20.0 [facility] Comment on above: Performed By: #### C BC #### [facility] [address] [id number] Billy Quita Urea nitrogen/Creatinine [Mass ratio] 12.5 mg/mg Normal [facility] Comment on above: Performed By: #### C BC #### [facility] [address] [place], [place] [address] Billy Quita IN BIOPSY LIVER PERCUTANEOUS NEEDLEon 05-08-2021 IN BIOPSY LIVER PERCUTANEOUS NEEDLE Patient Name: CHUY CHAPIN STUDY: IN BIOPSY LIVER PERCUTANEOUS NEEDLE; ; 05/08/2021 11:46 am INDICATION: None. COMPARISON: None. ACCESSION NUMBER(S): [id number] ORDERING CLINICIAN: ENOCH HERRMANN TECHNIQUE: CONSENT: The [...] and cap. Additionally, the performing physician and chemical laboratory assistant used maximum barrier technique to include [...] were made using an 18 gauge spring-loaded Flinqer core biopsy needle. Good core samples were [...] above Electronically signed by: URI BACON MD [facility] Order Reconciliationon 05-08 Order Reconciliation Page 1 [...] tab(s) orally 2 times a day Normal [facility] Surgical Pathology Depar tmenton 05-08-2021 [facility] Surgical Pathology Department Name CHUY CHAPIN Pathologist: SUSAN BLACK M.D., PhD. Date of Procedure: 05/08/2021 Date Received: 05/08/2021 Date Reported 05/11/2021 Submitting Physician: ENOCH HERRMANN MD Location: [facility] Copy To/Referring/Attending: URI BACON MD [...] positive and negative controls which stained appropriately. [facility] Department of Pathology [address] [place] [address] Normal [facility] Comment on above: Performed By: #### U HCS #### [facility] Surgical Pathology Department [address] [place] [address] CBC AUTO DIFFon 05-04-2021 BASO # 0.0 103/ul Normal 0.0-0.1 [facility] Comment on above: Performed By: #### F ERR #### [facility] [address] [place] [address] Dr. Krystle Heaton Basophils/100 WBC (Bld) 0.5 % Normal 0.2-2.0 [facility] Comment on above: Performed By: #### F ERR #### [facility] [address] [place] [address] Dr. Krystle Heaton EO # 0.1 103/ul Normal 0.0-0.7 [facility] Comment on above: Performed By: #### F ERR #### [facility] [address] [place] [address] Dr. Krystle Heaton Eosinophils/100 WBC (Bld) 2.5 % Normal 0.9-7.0 [facility] Comment on above: Performed By: #### F ERR #### [facility] [address] [place] [address] Dr. Krystle Heaton Erythrocyte distribution width (RBC) [Ratio] 12.5 % Normal 11.0-15.0 [facility] Comment on above: Performed By: #### F ERR #### [facility] [address] [place] [address] Dr. Krystle Heaton Hematocrit (Bld) [Volume fraction] 34.3 % Critically low 42.0-54.0 [facility] Comment on above: Performed By: #### F ERR #### [facility] [address] [place] [address] Dr. Krystle Heaton Hemoglobin (Bld) [Mass/Vol] 11.2 g/dL Critically low 14.0-18.0 [facility] Comment on above: Performed By: #### F ERR #### [facility] [address] [place] [address] Dr. Krystle Heaton IG # 0.01 10e3/ul Normal 0.00-0.03 [facility] Comment on above: Performed By: #### F ERR #### [facility] [address] [place] [address] Dr. Krystle Heaton IG % 0.3 % Normal 0.0-0.5 [facility] Comment on above: Performed By: #### F ERR #### [facility] [address] [place] [address] Dr. Krystle Heaton LYMPH # 1.3 103/ul Normal 1.2-3.8 [facility] Comment on above: Performed By: #### F ERR #### [facility] [address] [place] [address] Dr. Krystle Heaton Lymphocytes/100 WBC (Bld) 33.3 % Normal 20.5-60.0 [facility] Comment on above: Performed By: #### F ERR #### [facility] [address] [place] [address] Dr. Krystle Heaton MANUAL DIFF REQ NO Normal [facility] Comment on above: Performed By: #### F ERR #### [facility] [address] [place] [address] Dr. Krystle Heaton MCH (RBC) [Entitic mass] 35.6 pg Critically high 25.9-34.0 [facility] Comment on above: Performed By: #### F ERR #### [facility] [address] [address] [address] Krystle Heaton MCHC (RBC) [Mass/Vol] 32.7 g/dL Normal 29.9-35.2 [facility] Comment on above: Performed By: #### F ERR #### [facility] [address] [place] [address] Dr. Krystle Heaton MCV (RBC) [Entitic vol] 108.9 fL Critically high 80.0-94.0 [facility] Comment on above: Performed By: #### F ERR #### [facility] [address] [place] [address] Dr. Krystle Heaton MONO # 0.4 103/ul Normal 0.3-0.8 [facility] Comment on above: Performed By: #### F ERR #### [facility] [address] [place] [address] Dr. Krystle Heaton Monocytes/100 WBC (Bld) 10.0 % Normal 1.7-12.0 [facility] Comment on above: Performed By: #### F ERR #### [facility] [address] [place] [address] Dr. Krystle Heaton NEUT # 2.1 103/ul Normal 1.4-6.5 [facility] Comment on above: Performed By: #### F ERR #### [facility] [address] [place] [address] Dr. Krystle Heaton Neutrophils/100 WBC (Bld) 53.4 % Normal 43.0-75.0 [facility] Comment on above: Performed By: #### F ERR #### [facility] [address] [place] [address] Dr. Krystle Heaton Platelet mean volume (Bld) [Entitic vol] 10.7 fL Normal 9.5-13.5 [facility] Comment on above: Performed By: #### F ERR #### [facility] [address] [place] [address] Dr. Krystle Heaton PLT 174 103/ul Normal 150-450 [facility] Comment on above: Performed By: #### F ERR #### [facility] [address] [place] [address] Dr. Krystle Heaton RBC 3.15 106/ul Critically low 4.70-6.10 [facility] Comment on above: Result Comment: SLID E REVIEWED. 2+ MACROCYTOSIS SEEN Performed By: #### F ERR #### [facility] [address] [place] [address] Dr. Krystle Heaton WBC 4.0 103/ul Normal 4.0-11.0 [facility] Comment on above: Performed By: #### F ERR #### [facility] [address] [place] [address] Dr. Krystle Heaton FERRITINon 05-04-2021 Ferritin [Mass/Vol] 417.0 ng/mL Normal 17.9-464.0 [facility] Comment on above: Performed By: #### T 7, LIPA, TSH, AMADOU, CMP #### [facility] [address] [place] [address] Dr. Krystle Heaton AFP (TUMOR MARKER)on 021 AFP, Serum, Tumor Marker 5.2 ng/mL Normal 0.0-8.3 [facility] Comment on above: Result Comment: [facility] [employer] Electrochemiluminescence Immunoassay (ECLIA) . Values obtained with different assay methods or kits cannot be used interchangeably. Results cannot be interpreted as absolute evidence of the presence or absence of malignant disease. . This test is not interpretable in females. Performed By: #### T 7, LIPA, TSH, AMADOU, CMP #### [facility] [address] [place] [address] Dr. Krystle Heaton [id number] , Serum 132 mg/dL Normal 101-187 [facility] Comment on above: Performed By: #### H BSANS #### [facility] [address] [place] [address] Billy Devlin NE by IFAon 05-02-2021 Antinuclear Antibodies, IFA Negative Normal [facility] Comment on above: Result Comment: Nega tive <1:80 Borderline 1:80 Positive >1:80 Performed By: #### A NAIFA #### [facility] [address] [address] Billy Devlin CERULOPLASMINon 05-02-2021 Ceruloplasmin 27.8 mg/dL Normal 16.0-31.0 [facility] Comment on above: Performed By: #### C BC #### [facility] [address] [place], [place] [id number] Billy Devlin HEP A AB TOTALon 05-02-2021 Hep A Ab, Total Negative Normal Negative [facility] Comment on above: Performed By: #### H BSANS #### [facility] [address] [place] [address] Billy Devlin HEP B COREon 05-02-2021 Hep B Core Ab, Tot Negative Normal Negative [facility] Comment on above: Performed By: #### T 7, LIPA, TSH, AMADOU, CMP #### [facility] [address] [place] [address] Dr. Krystle Heaton HEP B SURFACE ANTIGEN SCREEN on 05-02-2021 HBsAg Screen Negative Normal Negative [facility] Comment on above: Performed By: #### H BSANS #### [facility] [address] [place] [address] Billy Devlin HEPATITIS B SURFACE ANTIBODY , QUANTon 05-02-2021 Hepatitis B Surf AB Quant <3.1 Critically low Immunity>9. 9 [facility] Comment on above: Result Comment: Stat us of Immunity Anti-HBs Level Inconsistent with Immunity 0.0 - 9.9 Consistent with Immunity >9.9 Performed By: #### H BSANS #### [facility] [address] [place] [address] Billy Devlin HEPATITIS C ANTIBODYon 05-02 Hep C Virus Ab <0.1 Normal 0.0-0.9 [facility] Comment on above: Result Comment: Nega tive: < 0.8 Indeterminate: 0.8 - 0.9 Positive: > 0.9 . The CDC recommends that a positive HCV antibody result be followed up with a HCV Nucleic Acid Amplification test (355807). Performed By: #### T 7, LIPA, TSH, AMADOU, CMP #### [facility] [address] [place] [address] Dr. Krystle Heaton MITICHONDRIAL (M2) ANTIBODYo n 05-02-2021 Mitochondrial (M2) Antibody <20.0 Normal 0.0-20.0 [facility] Comment on above: Result Comment: Nega tive 0.0 - 20.0 Equivocal 20.1 - 24.9 Positive >24.9 . Mitochondrial (M2) Antibodies are found in 90-96% of patients with primary biliary cirrhosis. Performed By: #### F ERR #### [facility] [address] [place] [address] Dr. Krystle Heaton CBC AUTO DIFFon 05-01-2021 BASO # 0.1 103/ul Normal 0.0-0.1 [facility] Comment on above: Performed By: #### C BC #### [facility] [address] [place] [address] Billy Quita Basophils/100 WBC (Bld) 1.5 % Normal 0.2-2.0 [facility] Comment on above: Performed By: #### C BC #### [facility] [address] [place] [address] Billy Quita EO # 0.1 103/ul Normal 0.0-0.7 [facility] Comment on above: Performed By: #### C BC #### [facility] [address] [place] [address] Billy Quita Eosinophils/100 WBC (Bld) 2.1 % Normal 0.9-7.0 [facility] Comment on above: Performed By: #### C BC #### [facility] [address] [place], [place] [id number] Billy Quita Erythrocyte distribution width (RBC) [Ratio] 12.7 % Normal 11.0-15.0 [facility] Comment on above: Performed By: #### C BC #### [facility] [address] [place], [place] [id number] Billy Quita Hematocrit (Bld) [Volume fraction] 34.6 % Critically low 42.0-54.0 [facility] Comment on above: Performed By: #### C BC #### [facility] [address] [place] [address] Billy Devlin Hemoglobin (Bld) [Mass/Vol] 11.2 g/dL Critically low 14.0-18.0 [facility] Comment on above: Performed By: #### C BC #### [facility] [address] [place] [address] Billycarrillo Devlin IG # 0.01 10e3/ul Normal 0.00-0.03 [facility] Comment on above: Performed By: #### C BC #### [facility] [address] [place] [address] Billy Devlin IG % 0.3 % Normal 0.0-0.5 [facility] Comment on above: Performed By: #### C BC #### [facility] [address] [place] [address] Billy Devlin LYMPH # 1.0 103/ul Critically low 1.2-3.8 [facility] Comment on above: Performed By: #### C BC #### [facility] [address] [place] [address] Billy Devlin Lymphocytes/100 WBC (Bld) 30.4 % Normal 20.5-60.0 [facility] Comment on above: Performed By: #### C BC #### [facility] [address] [place] [address] Billy Devlin MANUAL DIFF REQ NO Normal [facility] Comment on above: Performed By: #### C BC #### [facility] [address] [place] [address] Billy Devlin MCH (RBC) [Entitic mass] 35.8 pg Critically high 25.9-34.0 [facility] Comment on above: Performed By: #### C BC #### [facility] [address] [place] [address] Billy Devlin MCHC (RBC) [Mass/Vol] 32.4 g/dL Normal 29.9-35.2 [facility] Comment on above: Performed By: #### C BC #### [facility] [address] [id number] Billy Devlin MCV (RBC) [Entitic vol] 110.5 fL Critically high 80.0-94.0 [facility] Comment on above: Performed By: #### C BC #### [facility] [address] [id number] Billy Devlin MONO # 0.4 103/ul Normal 0.3-0.8 [facility] Comment on above: Performed By: #### C BC #### [facility] [address] [place], [place] [id number] Billy Devlin Monocytes/100 WBC (Bld) 11.3 % Normal 1.7-12.0 [facility] Comment on above: Performed By: #### C BC #### [facility] [address] [place], [place] [id number] Billy Deanen NEUT # 1.8 103/ul Normal 1.4-6.5 [facility] Comment on above: Performed By: #### C BC #### [facility] [address] [place], [place] [id number] Billy Devlin Neutrophils/100 WBC (Bld) 54.4 % Normal 43.0-75.0 [facility] Comment on above: Performed By: #### C BC #### [facility] [address] [place], [place] [id number] Billy Devlin Platelet mean volume (Bld) [Entitic vol] 11.3 fL Normal 9.5-13.5 [facility] Comment on above: Performed By: #### C BC #### [facility] [address] [place], [place] [id number] Billy Quita PLT 142 103/ul Critically low 150-450 [facility] Comment on above: Performed By: #### C BC #### [facility] [address] [place], [place] [id number] Billy Quita RBC 3.13 106/ul Critically low 4.70-6.10 [facility] Comment on above: Performed By: #### C BC #### [facility] [address] [place], [place] [address] Billy Quita WBC 3.4 103/ul Critically low 4.0-11.0 [facility] Comment on above: Performed By: #### C BC #### [facility] [address] [place], [place] [address] Billy Quita LIVER PROFILEon 05-01-2021 Albumin/Globulin [Mass ratio] 1.0 {ratio} Normal [facility] Comment on above: Performed By: #### H BSANS #### [facility] [address] [address] Billy Quita ALP [Catalytic activity/Vol] 67 U/L Normal 38-126 [facility] Comment on above: Performed By: #### H BSANS #### [facility] [address] [place] [address] Billy Quita ALT [Catalytic activity/Vol] 52 U/L Normal 21-72 [facility] Comment on above: Performed By: #### H BSANS #### [facility] [address] [place] [address] Billy Quita AST [Catalytic activity/Vol] 51 U/L Normal 17-59 [facility] Comment on above: Performed By: #### H BSANS #### [facility] [address] [place] [address] Billy Quita BILI, CONJUGATED 0.2 mg/dL Normal 0.0-0.3 [facility] Comment on above: Performed By: #### H BSANS #### [facility] [address] [place] [address] Billy Quita Bilirubin [Mass/Vol] 0.5 mg/dL Normal 0.2-1.3 [facility] Comment on above: Performed By: #### H BSANS #### [facility] [address] [place], [place] [id number] Billy Quita Globulin (S) [Mass/Vol] 3.4 g/dL Normal [facility] Comment on above: Performed By: #### H BSANS #### [facility] [address] [place] [address] Billy Quita Protein [Mass/Vol] 6.9 g/dL Normal 6.1-8.2 [facility] Comment on above: Performed By: #### H BSANS #### [facility] [address] [place], [place] [id number] Billy Quita PROTIMEon 05-01-2021 INR Coag (PPP) [Relative time] 0.95 {INR} Normal [facility] Comment on above: Performed By: #### C BC #### [facility] [address] [place] [address] Billy Quita INR GUIDELINES SEE BELOW Normal [facility] Comment on above: Result Comment: MOUNA RED INR: 2.0 - 3.0 CONDITIONS NOT LISTED BELOW 2.5 - 3.5 FOR PROSTHETIC HEART VALVE REPLACEMENT 2.5 - 3.5 RECURRENT THROMBOSIS Performed By: #### C BC #### [facility] [address] [place] [address] Billy Quita PT Coag (PPP) [Time] 10.4 s Normal 9.0-11.6 [facility] Comment on above: Performed By: #### C BC #### [facility] [address] [place] [address] Billy Quita RENAL FUNCTION PANELon 05-01 Albumin [Mass/Vol] 3.5 g/dL Normal 3.5-5.0 [facility] Comment on above: Performed By: #### H BSANS #### [facility] [address] [place] [address] Billy Quita Calcium [Mass/Vol] 8.7 mg/dL Normal 8.4-10.2 [facility] Comment on above: Performed By: #### H BSANS #### [facility] [address] [place] [address] Billy Quita Chloride [Moles/Vol] 104 mmol/L Normal 98-107 [facility] Comment on above: Performed By: #### H BSANS #### [facility] [address] [place] [address] Billy Quita CO2 [Moles/Vol] 25.7 mmol/L Normal 22.0-30.0 [facility] Comment on above: Performed By: #### H BSANS #### [facility] [address] [id number] Billy Quita Creatinine [Mass/Vol] 1.01 mg/dL Normal 0.66-1.25 [facility] Comment on above: Performed By: #### H BSANS #### [facility] [address] [address] Billy Quita EGFR-AF NIGERIEN >60 Normal >=60 [facility] Comment on above: Performed By: #### H BSANS #### [facility] [address] [address] Billy Quita EGFR-NON AF NIGERIEN >60 Normal >=60 [facility] Comment on above: Performed By: #### H BSANS #### [facility] [address] [place] [address] Billy Quita Glucose [Mass/Vol] 103 mg/dL Normal 74-106 [facility] Comment on above: Performed By: #### H BSANS #### [facility] [address] [address] Billy Quita Phosphate [Mass/Vol] 3.6 mg/dL Normal 2.5-4.5 [facility] Comment on above: Performed By: #### H BSANS #### [facility] [address] [place] [address] Billy Quita Potassium [Moles/Vol] 4.2 mmol/L Normal 3.4-5.0 [facility] Comment on above: Performed By: #### H BSANS #### [facility] [address] [address] Billy Quita Sodium [Moles/Vol] 138 mmol/L Normal 137-145 [facility] Comment on above: Performed By: #### H BSANS #### [facility] [address] [address] Billy Quita Urea nitrogen [Mass/Vol] 7.0 mg/dL Critically low 9.0-20.0 [facility] Comment on above: Performed By: #### H BSANS #### [facility] [address] [place] [address] Billy Devlin CBC AUTO DIFFon 04-27-2021 BASO # 0.0 103/ul Normal 0.0-0.1 [facility] Comment on above: Performed By: #### T 7, LIPA, TSH, AMADOU, CMP #### [facility] [address] [place] [address] Dr. Krystle Heaton Basophils/100 WBC (Bld) 0.9 % Normal 0.2-2.0 [facility] Comment on above: Performed By: #### T 7, LIPA, TSH, AMADOU, CMP #### [facility] [address] [place] [address] Dr. Krystle Heaton EO # 0.1 103/ul Normal 0.0-0.7 [facility] Comment on above: Performed By: #### T 7, LIPA, TSH, AMADOU, CMP #### [facility] [address] [place] [address] Dr. Krystle Heaton Eosinophils/100 WBC (Bld) 2.6 % Normal 0.9-7.0 [facility] Comment on above: Performed By: #### T 7, LIPA, TSH, AMADOU, CMP #### [facility] [address] [place] [address] Dr. Krystle Heaton Erythrocyte distribution width (RBC) [Ratio] 12.4 % Normal 11.0-15.0 [facility] Comment on above: Performed By: #### T 7, LIPA, TSH, AMADOU, CMP #### [facility] [address] [place] [address] Dr. Krystle Heaton Hematocrit (Bld) [Volume fraction] 36.8 % Critically low 42.0-54.0 [facility] Comment on above: Performed By: #### T 7, LIPA, TSH, AMADOU, CMP #### [facility] [address] [place] [address] Dr. Krystle Heaton Hemoglobin (Bld) [Mass/Vol] 12.0 g/dL Critically low 14.0-18.0 [facility] Comment on above: Performed By: #### T 7, LIPA, TSH, AMADOU, CMP #### [facility] [address] [place] [address] Dr. Krystle Heaton IG # 0.02 10e3/ul Normal 0.00-0.03 [facility] Comment on above: Performed By: #### T 7, LIPA, TSH, AMADOU, CMP #### [facility] [address] [place] [address] Dr. Krystle Heaton IG % 0.4 % Normal 0.0-0.5 [facility] Comment on above: Performed By: #### T 7, LIPA, TSH, AMADOU, CMP #### [facility] [address] [place] [address] Dr. Krystle Heaton LYMPH # 1.2 103/ul Normal 1.2-3.8 [facility] Comment on above: Performed By: #### T 7, LIPA, TSH, AMADOU, CMP #### [facility] [address] [place] [address] Dr. Krystle Heaton Lymphocytes/100 WBC (Bld) 26.0 % Normal 20.5-60.0 [facility] Comment on above: Performed By: #### T 7, LIPA, TSH, AMADOU, CMP #### [facility] [address] [place] [address] Dr. Krystle Heaton MANUAL DIFF REQ NO Normal [facility] Comment on above: Performed By: #### T 7, LIPA, TSH, AMADOU, CMP #### [facility] [address] [place] [address] Dr. Krystle Heaton MCH (RBC) [Entitic mass] 36.4 pg Critically high 25.9-34.0 [facility] Comment on above: Performed By: #### T 7, LIPA, TSH, AMADOU, CMP #### [facility] [address] [place] [address] Dr. Krystle Heaton MCHC (RBC) [Mass/Vol] 32.6 g/dL Normal 29.9-35.2 [facility] Comment on above: Performed By: #### T 7, LIPA, TSH, AMADOU, CMP #### [facility] [address] [place] [address] Dr. Krystle Heaton MCV (RBC) [Entitic vol] 111.5 fL Critically high 80.0-94.0 [facility] Comment on above: Performed By: #### T 7, LIPA, TSH, AMADOU, CMP #### [facility] [address] [place] [address] Dr. Krystle Heaton MONO # 0.5 103/ul Normal 0.3-0.8 [facility] Comment on above: Performed By: #### T 7, LIPA, TSH, AMADOU, CMP #### [facility] [address] [place] [address] Dr. Krystle Heaton Monocytes/100 WBC (Bld) 10.1 % Normal 1.7-12.0 [facility] Comment on above: Performed By: #### T 7, LIPA, TSH, AMADOU, CMP #### [facility] [address] [place] [address] Dr. Krystle Heaton NEUT # 2.8 103/ul Normal 1.4-6.5 [facility] Comment on above: Performed By: #### T 7, LIPA, TSH, AMADOU, CMP #### [facility] [address] [place] [address] Dr. Krystle Heaton Neutrophils/100 WBC (Bld) 60.0 % Normal 43.0-75.0 [facility] Comment on above: Performed By: #### T 7, LIPA, TSH, AMADOU, CMP #### [facility] [address] [place] [address] Dr. Krystle Heaton Platelet mean volume (Bld) [Entitic vol] 11.0 fL Normal 9.5-13.5 [facility] Comment on above: Performed By: #### T 7, LIPA, TSH, AMADOU, CMP #### [facility] [address] [place] [address] Dr. Krystle Heaton PLT 140 103/ul Critically low 150-450 [facility] Comment on above: Performed By: #### T 7, LIPA, TSH, AMADOU, CMP #### [facility] [address] [place] [address] Dr. Krystle Heaton RBC 3.30 106/ul Critically low 4.70-6.10 [facility] Comment on above: Performed By: #### T 7, LIPA, TSH, AMADOU, CMP #### [facility] [address] [place] [address] Dr. Krystle Heaton WBC 4.7 103/ul Normal 4.0-11.0 [facility] Comment on above: Performed By: #### T 7, LIPA, TSH, AMADOU, CMP #### [facility] [address] [place] [address] Dr. Krystle Heaton FERRITINon 04-27-2021 Ferritin [Mass/Vol] 845.0 ng/mL Critically high 17.9-464.0 [facility] Comment on above: Performed By: #### F ERR #### [facility] [address] [place] [address] Dr. Krystle Heaton CBC AUTO DIFFon 04-18-2021 BASO # 0.1 103/ul Normal 0.0-0.1 [facility] Comment on above: Performed By: #### T 7, LIPA, TSH, AMADOU, CMP #### [facility] [address] [place] [address] Dr. Krystle Heaton Basophils/100 WBC (Bld) 1.1 % Normal 0.2-2.0 [facility] Comment on above: Performed By: #### T 7, LIPA, TSH, AMADOU, CMP #### [facility] [address] [place] [address] Dr. Krystle Heaton EO # 0.1 103/ul Normal 0.0-0.7 [facility] Comment on above: Performed By: #### T 7, LIPA, TSH, AMADOU, CMP #### [facility] [address] [place] [address] Dr. Krystle Heaton Eosinophils/100 WBC (Bld) 2.2 % Normal 0.9-7.0 [facility] Comment on above: Performed By: #### T 7, LIPA, TSH, AMADOU, CMP #### [facility] [address] [place] [address] Dr. Krystle Heaton Erythrocyte distribution width (RBC) [Ratio] 13.1 % Normal 11.0-15.0 [facility] Comment on above: Performed By: #### T 7, LIPA, TSH, AMADOU, CMP #### [facility] [address] [place] [address] Dr. Krystle Heaton Hematocrit (Bld) [Volume fraction] 35.2 % Critically low 42.0-54.0 [facility] Comment on above: Performed By: #### T 7, LIPA, TSH, AMADOU, CMP #### [facility] [address] [place] [address] Dr. Krystle Heaton Hemoglobin (Bld) [Mass/Vol] 11.8 g/dL Critically low 14.0-18.0 [facility] Comment on above: Performed By: #### T 7, LIPA, TSH, AMADOU, CMP #### [facility] [address] [place] [address] Dr. Krystle Heaton IG # 0.01 10e3/ul Normal 0.00-0.03 [facility] Comment on above: Performed By: #### T 7, LIPA, TSH, AMADOU, CMP #### [facility] [address] [place] [address] Dr. Krystle Heaton IG % 0.2 % Normal 0.0-0.5 [facility] Comment on above: Performed By: #### T 7, LIPA, TSH, AMADOU, CMP #### [facility] [address] [place] [address] Dr. Krystle Heaton LYMPH # 1.6 103/ul Normal 1.2-3.8 [facility] Comment on above: Performed By: #### T 7, LIPA, TSH, AMADOU, CMP #### [facility] [address] [place] [address] Dr. Krystle Heaton Lymphocytes/100 WBC (Bld) 35.1 % Normal 20.5-60.0 [facility] Comment on above: Performed By: #### T 7, LIPA, TSH, AMADOU, CMP #### [facility] [address] [place] [address] Dr. Krystle Heaton MANUAL DIFF REQ NO Normal [facility] Comment on above: Performed By: #### T 7, LIPA, TSH, AMADOU, CMP #### [facility] [address] [place] [address] Dr. Krystle Heaton MCH (RBC) [Entitic mass] 36.6 pg Critically high 25.9-34.0 [facility] Comment on above: Performed By: #### T 7, LIPA, TSH, AMADOU, CMP #### [facility] [address] [place] [address] Dr. Krystle Heaton MCHC (RBC) [Mass/Vol] 33.5 g/dL Normal 29.9-35.2 [facility] Comment on above: Performed By: #### T 7, LIPA, TSH, AMADOU, CMP #### [facility] [address] [place] [address] Dr. Krystle Heaton MCV (RBC) [Entitic vol] 109.3 fL Critically high 80.0-94.0 [facility] Comment on above: Performed By: #### T 7, LIPA, TSH, AMADOU, CMP #### [facility] [address] [place] [address] Dr. Krystle Heaton MONO # 0.5 103/ul Normal 0.3-0.8 [facility] Comment on above: Performed By: #### T 7, LIPA, TSH, AMADOU, CMP #### [facility] [address] [place] [address] Dr. Krystle Heaton Monocytes/100 WBC (Bld) 11.0 % Normal 1.7-12.0 [facility] Comment on above: Performed By: #### T 7, LIPA, TSH, AMADOU, CMP #### [facility] [address] [place] [address] Dr. Krystle Heaton NEUT # 2.2 103/ul Normal 1.4-6.5 [facility] Comment on above: Performed By: #### T 7, LIPA, TSH, AMADOU, CMP #### [facility] [address] [place] [address] Dr. Krystle Heaton Neutrophils/100 WBC (Bld) 50.4 % Normal 43.0-75.0 [facility] Comment on above: Performed By: #### T 7, LIPA, TSH, AMADOU, CMP #### [facility] [address] [place] [address] Dr. Krystle Heaton Platelet mean volume (Bld) [Entitic vol] 10.9 fL Normal 9.5-13.5 [facility] Comment on above: Performed By: #### T 7, LIPA, TSH, AMADOU, CMP #### [facility] [address] [place] [address] Dr. Krystle Heaton PLT 158 103/ul Normal 150-450 [facility] Comment on above: Performed By: #### T 7, LIPA, TSH, AMADOU, CMP #### [facility] [address] [place] [address] Dr. Krystle Heaton RBC 3.22 106/ul Critically low 4.70-6.10 [facility] Comment on above: Performed By: #### T 7, LIPA, TSH, AMADOU, CMP #### [facility] [address] [place] [address] Dr. Krystle Heaton WBC 4.5 103/ul Normal 4.0-11.0 [facility] Comment on above: Performed By: #### T 7, LIPA, TSH, AMADOU, CMP #### [facility] [address] [place] [address] Dr. Krystle Heaton FERRITINon 04-18-2021 Ferritin [Mass/Vol] ng/mL Critically high 17.9-464.0 [facility] Comment on above: Performed By: #### H BSANS #### [facility] [address] [place] [address] Billy Devlin CBC AUTO DIFFon 04-13-2021 BASO # 0.0 103/ul Normal 0.0-0.1 [facility] Comment on above: Performed By: #### T 7, LIPA, TSH, AMADOU, CMP #### [facility] [facility] [address] [place] [address] Dr. Krystle Heaton Basophils/100 WBC (Bld) 0.6 % Normal 0.2-2.0 [facility] Comment on above: Performed By: #### T 7, LIPA, TSH, AMADOU, CMP #### [facility] [address] [place] [address] Dr. Krystle Heaton EO # 0.1 103/ul Normal 0.0-0.7 [facility] Comment on above: Performed By: #### T 7, LIPA, TSH, AMADOU, CMP #### [facility] [address] [place] [address] Dr. Krystle Heaton Eosinophils/100 WBC (Bld) 3.2 % Normal 0.9-7.0 [facility] Comment on above: Performed By: #### T 7, LIPA, TSH, AMADOU, CMP #### [facility] [address] [place] [address] Dr. Krystle Heaton Erythrocyte distribution width (RBC) [Ratio] 13.6 % Normal 11.0-15.0 [facility] Comment on above: Performed By: #### T 7, LIPA, TSH, AMADOU, CMP #### [facility] [address] [place] [address] Dr. Krystle Heaton Hematocrit (Bld) [Volume fraction] 35.3 % Critically low 42.0-54.0 [facility] Comment on above: Performed By: #### T 7, LIPA, TSH, AMADOU, CMP #### [facility] [address] [place] [address] Dr. Krystle Heaton Hemoglobin (Bld) [Mass/Vol] 11.9 g/dL Critically low 14.0-18.0 [facility] Comment on above: Performed By: #### T 7, LIPA, TSH, AMADOU, CMP #### [facility] [address] [place] [address] Dr. Krystle Heaton IG # 0.01 10e3/ul Normal 0.00-0.03 [facility] Comment on above: Performed By: #### T 7, LIPA, TSH, AMADOU, CMP #### [facility] [address] [address] [address] Kyrstle Heaton IG % 0.3 % Normal 0.0-0.5 [facility] Comment on above: Performed By: #### T 7, LIPA, TSH, AMADOU, CMP #### [facility] [address] [address] [address] Krystle Heaton LYMPH # 1.1 103/ul Critically low 1.2-3.8 [facility] Comment on above: Performed By: #### T 7, LIPA, TSH, AMADOU, CMP #### [facility] [address] [place] [address] Dr. Krystle Heaton Lymphocytes/100 WBC (Bld) 35.1 % Normal 20.5-60.0 [facility] Comment on above: Performed By: #### T 7, LIPA, TSH, AMADOU, CMP #### [facility] [address] [place] [address] Dr. Krystle Heaton MANUAL DIFF REQ NO Normal [facility] Comment on above: Performed By: #### T 7, LIPA, TSH, AMADOU, CMP #### [facility] [address] [place] [address] Dr. Krystle Heaton MCH (RBC) [Entitic mass] 37.1 pg Critically high 25.9-34.0 [facility] Comment on above: Performed By: #### T 7, LIPA, TSH, AMADOU, CMP #### [facility] [address] [place] [address] Dr. Krystle Heaton MCHC (RBC) [Mass/Vol] 33.7 g/dL Normal 29.9-35.2 [facility] Comment on above: Performed By: #### T 7, LIPA, TSH, AMADOU, CMP #### [facility] [address] [place] [address] Dr. Krystle Heaton MCV (RBC) [Entitic vol] 110.0 fL Critically high 80.0-94.0 [facility] Comment on above: Result Comment: macr ocytosis 3+ Performed By: #### T 7, LIPA, TSH, AMADOU, CMP #### [facility] [address] [place] [address] Dr. Krystle Heaton MONO # 0.3 103/ul Normal 0.3-0.8 [facility] Comment on above: Performed By: #### T 7, LIPA, TSH, AMADOU, CMP #### [facility] [address] [place] [address] Dr. Krystle Heaton Monocytes/100 WBC (Bld) 10.7 % Normal 1.7-12.0 [facility] Comment on above: Performed By: #### T 7, LIPA, TSH, AMADOU, CMP #### [facility] [address] [place] [address] Dr. Krystle Heaton NEUT # 1.5 103/ul Normal 1.4-6.5 [facility] Comment on above: Performed By: #### T 7, LIPA, TSH, AMADOU, CMP #### [facility] [address] [place] [address] Dr. Krystle Heaton Neutrophils/100 WBC (Bld) 50.1 % Normal 43.0-75.0 [facility] Comment on above: Performed By: #### T 7, LIPA, TSH, AMADOU, CMP #### [facility] [address] [place] [address] Dr. Krystle Heaton Platelet mean volume (Bld) [Entitic vol] 10.8 fL Normal 9.5-13.5 [facility] Comment on above: Performed By: #### T 7, LIPA, TSH, AMADOU, CMP #### [facility] [address] [place] [address] Dr. Krystle Heaton PLT 131 103/ul Critically low 150-450 [facility] Comment on above: Performed By: #### T 7, LIPA, TSH, AMADOU, CMP #### [facility] [address] [place] [address] Dr. Krystle Heaton RBC 3.21 106/ul Critically low 4.70-6.10 [facility] Comment on above: Performed By: #### T 7, LIPA, TSH, AMADOU, CMP #### [facility] [address] [place] [address] Dr. Krystle Heaton WBC 3.1 103/ul Critically low 4.0-11.0 [facility] Comment on above: Performed By: #### T 7, LIPA, TSH, AMADOU, CMP #### [facility] [address] [address] [address] Krystle Heaton FERRITINon 04-13-2021 Ferritin [Mass/Vol] ng/mL Critically high 17.9-464.0 [facility] Comment on above: Performed By: #### F ERR #### [facility] [address] [address] [address] Krystle Heaton Initial Visit (Gastroenterol ogy)on [...] 04-06-2021 BASO # 0.0 103/ul Normal 0.0-0.1 [facility] Comment on above: Performed By: #### H BSANS #### [facility] [address] [place], [place] [address] Billy Devlin Basophils/100 WBC (Bld) 0.9 % Normal 0.2-2.0 [facility] Comment on above: Performed By: #### H BSANS #### [facility] [address] [place], [place] [address] Billy Quita EO # 0.1 103/ul Normal 0.0-0.7 [facility] Comment on above: Performed By: #### H BSANS #### [facility] [address] [place] [address] Billy Quita Eosinophils/100 WBC (Bld) 3.0 % Normal 0.9-7.0 [facility] Comment on above: Performed By: #### H BSANS #### [facility] [address] [place] [address] Billy Quita Erythrocyte distribution width (RBC) [Ratio] 13.6 % Normal 11.0-15.0 [facility] Comment on above: Performed By: #### H ANJUMNS #### [facility] [address] [place] [address] Billy Quita Hematocrit (Bld) [Volume fraction] 39.1 % Critically low 42.0-54.0 [facility] Comment on above: Performed By: #### H ALEXANDER #### [facility] [address] [place] [address] Billy Quita Hemoglobin (Bld) [Mass/Vol] 13.1 g/dL Critically low 14.0-18.0 [facility] Comment on above: Performed By: #### H BSANS #### [facility] [address] [place] [address] Billy Quita IG # 0.02 10e3/ul Normal 0.00-0.03 [facility] Comment on above: Performed By: #### H BSANS #### [facility] [address] [place] [address] Billy Quita IG % 0.5 % Normal 0.0-0.5 [facility] Comment on above: Performed By: #### H BSANS #### [facility] [address] [place] [address] Billy Quita LYMPH # 1.1 103/ul Critically low 1.2-3.8 [facility] Comment on above: Performed By: #### H BSASUZANNE #### [facility] [address] [place] [address] Billy Quita Lymphocytes/100 WBC (Bld) 26.7 % Normal 20.5-60.0 [facility] Comment on above: Performed By: #### H ALEXANDER #### [facility] [address] [place] [address] Billy Devlin MANUAL DIFF REQ NO Normal [facility] Comment on above: Performed By: #### H ALEXANDER #### [facility] [address] [place] [address] Billycarrillo Devlin MCH (RBC) [Entitic mass] 36.7 pg Critically high 25.9-34.0 [facility] Comment on above: Performed By: #### H ALEXANDER #### [facility] [address] [place] [address] Billycarrillo Devlin MCHC (RBC) [Mass/Vol] 33.5 g/dL Normal 29.9-35.2 [facility] Comment on above: Result Comment: macr ocytosis Performed By: #### H ALEXANDER #### [facility] [address] [place] [address] Billy Quita MCV (RBC) [Entitic vol] 109.5 fL Critically high 80.0-94.0 [facility] Comment on above: Performed By: #### H ALEXANDER #### [facility] [address] [place] [address] Billy Quita MONO # 0.4 103/ul Normal 0.3-0.8 [facility] Comment on above: Performed By: #### H ALEXANDER #### [facility] [address] [place] [address] Billy Quita Monocytes/100 WBC (Bld) 8.7 % Normal 1.7-12.0 [facility] Comment on above: Performed By: #### H ALEXANDER #### [facility] [address] [place] [address] Billy Quita NEUT # 2.6 103/ul Normal 1.4-6.5 [facility] Comment on above: Performed By: #### H ALEXANDER #### [facility] [address] [place] [address] Billy Devlin Neutrophils/100 WBC (Bld) 60.2 % Normal 43.0-75.0 [facility] Comment on above: Performed By: #### H ALEXANDER #### [facility] [address] [place] [address] Billy Devlin Platelet mean volume (Bld) [Entitic vol] 11.1 fL Normal 9.5-13.5 [facility] Comment on above: Performed By: #### H ALEXANDER #### [facility] [address] [place] [address] Billy Devlin PLT 162 103/ul Normal 150-450 [facility] Comment on above: Performed By: #### H ALEXANDER #### [facility] [address] [place] [address] Billy Devlin RBC 3.57 106/ul Critically low 4.70-6.10 [facility] Comment on above: Performed By: #### H ALEXANDER #### [facility] [address] [place] [address] Billy Devlin WBC 4.3 103/ul Normal 4.0-11.0 [facility] Comment on above: Performed By: #### H ALEXANDER #### [facility] [address] [place] [address] Billy Devlin FERRITINon 04-06-2021 Ferritin [Mass/Vol] ng/mL Critically high 17.9-464.0 [facility] Comment on above: Performed By: #### T 7, LIPA, TSH, AMADOU, CMP #### [facility] [address] [place] [address] Dr. Krystle Heaton FREE T4on 04-06-2021 Free T4 [Mass/Vol] 0.73 ng/dL Critically low 0.78-2.19 [facility] Comment on above: Performed By: #### T 7, LIPA, TSH, AMADOU, CMP #### [facility] [address] [place] [address] Dr. Krystle Heaton IRON AND TIBCon 04-06-2021 % SATURATION 54.8 % Normal [facility] Comment on above: Performed By: #### T 7, LIPA, TSH, AMADOU, CMP #### [facility] [address] [address] [address] Krystle Heaton Iron [Mass/Vol] 161.0 ug/dL Normal 49.0-181.0 [facility] Comment on above: Performed By: #### T 7, LIPA, TSH, AMADOU, CMP #### [facility] [address] [place] [address] Dr. Krystle Heaton TIBC DIRECT 294.0 ug/dL Normal 261.0-497.0 [facility] Comment on above: Performed By: #### T 7, LIPA, TSH, AMADOU, CMP #### [facility] [address] [place] [address] Dr. Krystle Heaton PROF 14(COMP METB)on 021 Albumin [Mass/Vol] 3.7 g/dL Normal 3.5-5.0 [facility] Comment on above: Performed By: #### T 7, LIPA, TSH, AMADOU, CMP #### [facility] [address] [place] [address] Dr. Krystle Heaton Albumin/Globulin [Mass ratio] 1.0 {ratio} Normal [facility] Comment on above: Performed By: #### T 7, LIPA, TSH, AMADOU, CMP #### [facility] [address] [place] [address] Dr. Krystle Heaton ALP [Catalytic activity/Vol] 83 U/L Normal 38-126 [facility] Comment on above: Performed By: #### T 7, LIPA, TSH, AMADOU, CMP #### [facility] [address] [place] [address] Dr. Krystle Heaton ALT [Catalytic activity/Vol] 140 U/L Critically high 21-72 [facility] Comment on above: Performed By: #### T 7, LIPA, TSH, AMADOU, CMP #### [facility] [address] [place] [address] Dr. Krystle Heaton Anion gap [Moles/Vol] 15.8 mmol/L Normal [facility] Comment on above: Performed By: #### T 7, LIPA, TSH, AMADOU, CMP #### [facility] [address] [place] [address] Dr. Krystle Heaton AST [Catalytic activity/Vol] 186 U/L Critically high 17-59 [facility] Comment on above: Performed By: #### T 7, LIPA, TSH, AMADOU, CMP #### [facility] [address] [place] [address] Dr. Krystle Heaton Bilirubin [Mass/Vol] 0.5 mg/dL Normal 0.2-1.3 [facility] Comment on above: Performed By: #### T 7, LIPA, TSH, AMADOU, CMP #### [facility] [address] [place] [address] Dr. Krystle Heaton Calcium [Mass/Vol] 9.0 mg/dL Normal 8.4-10.2 [facility] Comment on above: Performed By: #### T 7, LIPA, TSH, AMADOU, CMP #### [facility] [address] [place] [address] Dr. Krystle Heaton Chloride [Moles/Vol] 101 mmol/L Normal 98-107 [facility] Comment on above: Performed By: #### T 7, LIPA, TSH, AMADOU, CMP #### [facility] [address] [place] [address] Dr. Krystle Heaton CO2 [Moles/Vol] 25.8 mmol/L Normal 22.0-30.0 [facility] Comment on above: Performed By: #### T 7, LIPA, TSH, AMADOU, CMP #### [facility] [address] [place] [address] Dr. Krystle Heaton Creatinine [Mass/Vol] 1.07 mg/dL Normal 0.66-1.25 [facility] Comment on above: Performed By: #### T 7, LIPA, TSH, AMADOU, CMP #### [facility] [address] [place] [address] Dr. Krystle Heaton EGFR-AF NIGERIEN >60 Normal >=60 [facility] Comment on above: Performed By: #### T 7, LIPA, TSH, AMADOU, CMP #### [facility] [address] [place] [address] Dr. Krystle Heaton EGFR-NON AF NIGERIEN >60 Normal >=60 [facility] Comment on above: Performed By: #### T 7, LIPA, TSH, AMADOU, CMP #### [facility] [address] [place] [address] Dr. Krystle Heaton Globulin (S) [Mass/Vol] 3.7 g/dL Normal [facility] Comment on above: Performed By: #### T 7, LIPA, TSH, AMADOU, CMP #### [facility] [address] [place] [address] Dr. Krystle Heaton Glucose [Mass/Vol] 104 mg/dL Normal 74-106 [facility] Comment on above: Performed By: #### T 7, LIPA, TSH, AMADOU, CMP #### [facility] [address] [place] [address] Dr. Krystle Heaton Potassium [Moles/Vol] 4.6 mmol/L Normal 3.4-5.0 [facility] Comment on above: Performed By: #### T 7, LIPA, TSH, AMADOU, CMP #### [facility] [address] [place] [address] Dr. Krystle Heaton Protein [Mass/Vol] 7.4 g/dL Normal 6.1-8.2 [facility] Comment on above: Performed By: #### T 7, LIPA, TSH, AMADOU, CMP #### [facility] [address] [place] [address] Dr. Krystle Heaton Sodium [Moles/Vol] 138 mmol/L Normal 137-145 [facility] Comment on above: Performed By: #### T 7, LIPA, TSH, AMADOU, CMP #### [facility] [address] [place] [address] Dr. Krystle Heaton Urea nitrogen [Mass/Vol] 10.0 mg/dL Normal 9.0-20.0 [facility] Comment on above: Performed By: #### T 7, LIPA, TSH, AMADOU, CMP #### [facility] [address] [place] [address] Dr. Krystle Heaton Urea nitrogen/Creatinine [Mass ratio] 9.3 mg/mg Normal [facility] Comment on above: Performed By: #### T 7, LIPA, TSH, AMADOU, CMP #### [facility] [address] [place] [address] Dr. Krystle Heaton TSHon 04-06-2021 TSH 1.945 uIU/mL Normal 0.470-4.680 [facility] Comment on above: Performed By: #### T 7, LIPA, TSH, AMADOU, CMP #### [facility] [address] [place] [address] Dr. Krystle Heaton TSH RANGE SEE BELOW Normal [facility] Comment on above: Result Comment: <0.3 4 UIU/ml HYPERTHYROID 0.34-5.60 UIU/ml EUTHYROID >5.60 UIU/ml HYPOTHYROID Performed By: #### T 7, LIPA, TSH, AMADOU, CMP #### [facility] [address] [place] [address] Dr. Krystle Heaton CBC AUTO DIFFon 03-30-2021 BASO # 0.0 103/ul Normal 0.0-0.1 [facility] Comment on above: Performed By: #### T 7, LIPA, TSH, AMADOU, CMP #### [facility] [address] [place] [address] Dr. Krystle Heaton Basophils/100 WBC (Bld) 0.8 % Normal 0.2-2.0 [facility] Comment on above: Performed By: #### T 7, LIPA, TSH, AMADOU, CMP #### [facility] [address] [place] [address] Dr. Krystle Heaton EO # 0.1 103/ul Normal 0.0-0.7 [facility] Comment on above: Performed By: #### T 7, LIPA, TSH, AMADOU, CMP #### [facility] [address] [place] [address] Dr. Krystle Heaton Eosinophils/100 WBC (Bld) 3.0 % Normal 0.9-7.0 [facility] Comment on above: Performed By: #### T 7, LIPA, TSH, AMADOU, CMP #### [facility] [address] [place] [address] Dr. Krystle Heaton Erythrocyte distribution width (RBC) [Ratio] 13.9 % Normal 11.0-15.0 [facility] Comment on above: Performed By: #### T 7, LIPA, TSH, AMADOU, CMP #### [facility] [address] [place] [address] Dr. Krystle Heaton Hematocrit (Bld) [Volume fraction] 40.4 % Critically low 42.0-54.0 [facility] Comment on above: Performed By: #### T 7, LIPA, TSH, AMADOU, CMP #### [facility] [address] [place] [address] Dr. Krystle Heaton Hemoglobin (Bld) [Mass/Vol] 13.5 g/dL Critically low 14.0-18.0 [facility] Comment on above: Performed By: #### T 7, LIPA, TSH, AMADOU, CMP #### [facility] [address] [place] [address] Dr. Krystle Heaton IG # 0.01 10e3/ul Normal 0.00-0.03 [facility] Comment on above: Performed By: #### T 7, LIPA, TSH, AMADOU, CMP #### [facility] [address] [place] [address] Dr. Krystle Heaton IG % 0.3 % Normal 0.0-0.5 [facility] Comment on above: Performed By: #### T 7, LIPA, TSH, AMADOU, CMP #### [facility] [address] [place] [address] Dr. Krystle Heaton LYMPH # 1.2 103/ul Normal 1.2-3.8 [facility] Comment on above: Performed By: #### T 7, LIPA, TSH, AMADOU, CMP #### [facility] [address] [place] [address] Dr. Krystle Heaton Lymphocytes/100 WBC (Bld) 32.7 % Normal 20.5-60.0 [facility] Comment on above: Performed By: #### T 7, LIPA, TSH, AMADOU, CMP #### [facility] [address] [place] [address] Dr. Krystle Heaton MANUAL DIFF REQ NO Normal [facility] Comment on above: Performed By: #### T 7, LIPA, TSH, AMADOU, CMP #### [facility] [address] [place] [address] Dr. Krystle Heaton MCH (RBC) [Entitic mass] 36.5 pg Critically high 25.9-34.0 [facility] Comment on above: Performed By: #### T 7, LIPA, TSH, AMADOU, CMP #### [facility] [address] [place] [address] Dr. Krystle Heaton MCHC (RBC) [Mass/Vol] 33.4 g/dL Normal 29.9-35.2 [facility] Comment on above: Result Comment: MACR OCYTOSIS PRESENT Performed By: #### T 7, LIPA, TSH, AMADOU, CMP #### [facility] [address] [place] [address] Dr. Krystle Heaton MCV (RBC) [Entitic vol] 109.2 fL Critically high 80.0-94.0 [facility] Comment on above: Performed By: #### T 7, LIPA, TSH, AMADOU, CMP #### [facility] [address] [place] [address] Dr. Krystle Heaton MONO # 0.4 103/ul Normal 0.3-0.8 [facility] Comment on above: Performed By: #### T 7, LIPA, TSH, AMADOU, CMP #### [facility] [address] [place] [address] Dr. Krystle Heaton Monocytes/100 WBC (Bld) 11.4 % Normal 1.7-12.0 [facility] Comment on above: Performed By: #### T 7, LIPA, TSH, AMADOU, CMP #### [facility] [address] [place] [address] Dr. Krystle Heaton NEUT # 1.9 103/ul Normal 1.4-6.5 [facility] Comment on above: Performed By: #### T 7, LIPA, TSH, AMADOU, CMP #### [facility] [address] [place] [address] Dr. Krystle Heaton Neutrophils/100 WBC (Bld) 51.8 % Normal 43.0-75.0 [facility] Comment on above: Performed By: #### T 7, LIPA, TSH, AMADOU, CMP #### [facility] [address] [place] [address] Dr. Krystle Heaton Platelet mean volume (Bld) [Entitic vol] 10.8 fL Normal 9.5-13.5 [facility] Comment on above: Performed By: #### T 7, LIPA, TSH, AMADOU, CMP #### [facility] [address] [place] [address] Dr. Krystle Heaton PLT 184 103/ul Normal 150-450 [facility] Comment on above: Performed By: #### T 7, LIPA, TSH, AMADOU, CMP #### [facility] [address] [place] [address] Dr. Krystle Heaton RBC 3.70 106/ul Critically low 4.70-6.10 [facility] Comment on above: Performed By: #### T 7, LIPA, TSH, AMADOU, CMP #### [facility] [address] [place] [address] Dr. Krystle Heaton WBC 3.6 103/ul Critically low 4.0-11.0 [facility] Comment on above: Performed By: #### T 7, LIPA, TSH, AMADOU, CMP #### [facility] [address] [place] [address] Dr. Krystle Heaton FERRITINon 03-30-2021 Ferritin [Mass/Vol] ng/mL Critically high 17.9-464.0 [facility] Comment on above: Performed By: #### F ERR #### [facility] [address] [place] [address] Dr. Krystle Heaton FREE T4on 03-30-2021 Free T4 [Mass/Vol] 0.83 ng/dL Normal 0.78-2.19 [facility] Comment on above: Performed By: #### F ERR #### [facility] [address] [address] [address] Krystle Heaton IRON AND TIBCon 03-30-2021 % SATURATION 78.5 % Normal [facility] Comment on above: Performed By: #### F ERR #### [facility] [address] [address] [address] Krystle Heaton Iron [Mass/Vol] 230.0 ug/dL Critically high 49.0-181.0 [facility] Comment on above: Performed By: #### F ERR #### [facility] [address] [place] [address] Dr. Krystle Heaton TIBC DIRECT 293.0 ug/dL Normal 261.0-497.0 [facility] Comment on above: Performed By: #### F ERR #### [facility] [address] [place] [address] Dr. Krystle Heaton PROF 14(COMP METB)on 021 Albumin [Mass/Vol] 3.8 g/dL Normal 3.5-5.0 [facility] Comment on above: Performed By: #### T 7, LIPA, TSH, AMADOU, CMP #### [facility] [address] [place] [address] Dr. Krystle Heaton Albumin/Globulin [Mass ratio] 1.0 {ratio} Normal [facility] Comment on above: Performed By: #### T 7, LIPA, TSH, AMADOU, CMP #### [facility] [address] [place] [address] Dr. Krystle Heaton ALP [Catalytic activity/Vol] 90 U/L Normal 38-126 [facility] Comment on above: Performed By: #### T 7, LIPA, TSH, AMADOU, CMP #### [facility] [address] [place] [address] Dr. Krystle Heaton ALT [Catalytic activity/Vol] 149 U/L Critically high 21-72 [facility] Comment on above: Performed By: #### T 7, LIPA, TSH, AMADOU, CMP #### [facility] [address] [place] [address] Dr. Krystle Heaton Anion gap [Moles/Vol] 16.0 mmol/L Normal [facility] Comment on above: Performed By: #### T 7, LIPA, TSH, AMADOU, CMP #### [facility] [address] [address] [address] Krystle Heaton AST [Catalytic activity/Vol] 187 U/L Critically high 17-59 [facility] Comment on above: Performed By: #### T 7, LIPA, TSH, AMADOU, CMP #### [facility] [address] [address] [address] Krystle Heaton Bilirubin [Mass/Vol] 0.6 mg/dL Normal 0.2-1.3 [facility] Comment on above: Performed By: #### T 7, LIPA, TSH, AMADOU, CMP #### [facility] [address] [place] [address] Dr. Krystle Heaton Calcium [Mass/Vol] 9.2 mg/dL Normal 8.4-10.2 [facility] Comment on above: Performed By: #### T 7, LIPA, TSH, AMADOU, CMP #### [facility] [address] [address] [address] Krystle Heaton Chloride [Moles/Vol] 100 mmol/L Normal 98-107 [facility] Comment on above: Performed By: #### T 7, LIPA, TSH, AMADOU, CMP #### [facility] [address] [address] [address] Krystle Heaton CO2 [Moles/Vol] 26.2 mmol/L Normal 22.0-30.0 [facility] Comment on above: Performed By: #### T 7, LIPA, TSH, AMADOU, CMP #### [facility] [address] [address] [address] Krystle Heaton Creatinine [Mass/Vol] 1.07 mg/dL Normal 0.66-1.25 [facility] Comment on above: Performed By: #### T 7, LIPA, TSH, AMADOU, CMP #### [facility] [address] [address] [address] Krystle Heaton EGFR-AF NIGERIEN >60 Normal >=60 [facility] Comment on above: Performed By: #### T 7, LIPA, TSH, AMADOU, CMP #### [facility] [address] [place] [address] Dr. Krystle Heaton EGFR-NON AF NIGERIEN >60 Normal >=60 [facility] Comment on above: Performed By: #### T 7, LIPA, TSH, AMADOU, CMP #### [facility] [address] [place] [address] Dr. Krystle Heaton Globulin (S) [Mass/Vol] 3.8 g/dL Normal [facility] Comment on above: Performed By: #### T 7, LIPA, TSH, AMADOU, CMP #### [facility] [address] [place] [address] Dr. Krystle Heaton Glucose [Mass/Vol] 110 mg/dL Critically high 74-106 [facility] Comment on above: Performed By: #### T 7, LIPA, TSH, AMADOU, CMP #### [facility] [address] [place] [address] Dr. Krystle Heaton Potassium [Moles/Vol] 4.2 mmol/L Normal 3.4-5.0 [facility] Comment on above: Performed By: #### T 7, LIPA, TSH, AMADOU, CMP #### [facility] [address] [place] [address] Dr. Krystle Heaton Protein [Mass/Vol] 7.6 g/dL Normal 6.1-8.2 [facility] Comment on above: Performed By: #### T 7, LIPA, TSH, AMADOU, CMP #### [facility] [address] [place] [address] Dr. Krystle Heaton Sodium [Moles/Vol] 138 mmol/L Normal 137-145 [facility] Comment on above: Performed By: #### T 7, LIPA, TSH, AMADOU, CMP #### [facility] [address] [place] [address] Dr. Krystle Heaton Urea nitrogen [Mass/Vol] 9.0 mg/dL Normal 9.0-20.0 [facility] Comment on above: Performed By: #### T 7, LIPA, TSH, AMADOU, CMP #### [facility] [address] [place] [address] Dr. Krystle Heaton Urea nitrogen/Creatinine [Mass ratio] 8.4 mg/mg Normal [facility] Comment on above: Performed By: #### T 7, LIPA, TSH, AMADOU, CMP #### [facility] [address] [place] [address] Dr. Krystle Heaton TSHon 03-30-2021 TSH 1.030 uIU/mL Normal 0.470-4.680 [facility] Comment on above: Performed By: #### T 7, LIPA, TSH, AMADOU, CMP #### [facility] [address] [place] [address] Dr. Krystle Heaton TSH RANGE SEE BELOW Normal [facility] Comment on above: Result Comment: <0.3 4 UIU/ml HYPERTHYROID 0.34-5.60 UIU/ml EUTHYROID >5.60 UIU/ml HYPOTHYROID Performed By: #### T 7, LIPA, TSH, AMADOU, CMP #### [facility] [address] [place] [address] Dr. Krystle Heaton CBC AUTO DIFFon 03-22-2021 BASO # 0.0 103/ul Normal 0.0-0.1 [facility] Comment on above: Performed By: #### T 7, LIPA, TSH, AMADOU, CMP #### [facility] [address] [place] [address] Dr. Krystle Heaton Basophils/100 WBC (Bld) 0.6 % Normal 0.2-2.0 [facility] Comment on above: Performed By: #### T 7, LIPA, TSH, AMADOU, CMP #### [facility] [address] [place] [address] Dr. Krystle Heaton EO # 0.1 103/ul Normal 0.0-0.7 [facility] Comment on above: Performed By: #### T 7, LIPA, TSH, AMADOU, CMP #### [facility] [address] [place] [address] Dr. Krystle Heaton Eosinophils/100 WBC (Bld) 2.1 % Normal 0.9-7.0 [facility] Comment on above: Performed By: #### T 7, LIPA, TSH, AMADOU, CMP #### [facility] [address] [place] [address] Dr. Krystle Heaton Erythrocyte distribution width (RBC) [Ratio] 12.7 % Normal 11.0-15.0 [facility] Comment on above: Performed By: #### T 7, LIPA, TSH, AMADOU, CMP #### [facility] [address] [place] [address] Dr. Krystle Heaton Hematocrit (Bld) [Volume fraction] 37.5 % Critically low 42.0-54.0 [facility] Comment on above: Performed By: #### T 7, LIPA, TSH, AMADOU, CMP #### [facility] [address] [place] [address] Dr. Krystle Heaton Hemoglobin (Bld) [Mass/Vol] 13.1 g/dL Critically low 14.0-18.0 [facility] Comment on above: Performed By: #### T 7, LIPA, TSH, AMADOU, CMP #### [facility] [address] [place] [address] Dr. Krystle Heaton IG # 0.01 10e3/ul Normal 0.00-0.03 [facility] Comment on above: Performed By: #### T 7, LIPA, TSH, AMADOU, CMP #### [facility] [address] [place] [address] Dr. Krystle Heaton IG % 0.3 % Normal 0.0-0.5 [facility] Comment on above: Performed By: #### T 7, LIPA, TSH, AMADOU, CMP #### [facility] [address] [place] [address] Dr. Krystle Heaton LYMPH # 1.2 103/ul Normal 1.2-3.8 [facility] Comment on above: Performed By: #### T 7, LIPA, TSH, AMADOU, CMP #### [facility] [address] [place] [address] Dr. Krystle Heaton Lymphocytes/100 WBC (Bld) 35.7 % Normal 20.5-60.0 [facility] Comment on above: Performed By: #### T 7, LIPA, TSH, AMADOU, CMP #### [facility] [address] [place] [address] Dr. Krystle Heaton MANUAL DIFF REQ NO Normal [facility] Comment on above: Performed By: #### T 7, LIPA, TSH, AMADOU, CMP #### [facility] [address] [place] [address] Dr. Krystle Heaton MCH (RBC) [Entitic mass] 37.0 pg Critically high 25.9-34.0 [facility] Comment on above: Performed By: #### T 7, LIPA, TSH, AMADOU, CMP #### [facility] [address] [place] [address] Dr. Krystle Heaton MCHC (RBC) [Mass/Vol] 34.9 g/dL Normal 29.9-35.2 [facility] Comment on above: Performed By: #### T 7, LIPA, TSH, AMADOU, CMP #### [facility] [address] [place] [address] Dr. Krystle Heaton MCV (RBC) [Entitic vol] 105.9 fL Critically high 80.0-94.0 [facility] Comment on above: Performed By: #### T 7, LIPA, TSH, AMADOU, CMP #### [facility] [address] [place] [address] Dr. Krystle Heaton MONO # 0.2 103/ul Critically low 0.3-0.8 [facility] Comment on above: Performed By: #### T 7, LIPA, TSH, AMADOU, CMP #### [facility] [address] [place] [address] Dr. Krystle Heaton Monocytes/100 WBC (Bld) 6.8 % Normal 1.7-12.0 [facility] Comment on above: Performed By: #### T 7, LIPA, TSH, AMADOU, CMP #### [facility] [address] [place] [address] Dr. Krystle Heaton NEUT # 1.8 103/ul Normal 1.4-6.5 [facility] Comment on above: Performed By: #### T 7, LIPA, TSH, AMADOU, CMP #### [facility] [address] [place] [address] Dr. Krystle Heaton Neutrophils/100 WBC (Bld) 54.5 % Normal 43.0-75.0 [facility] Comment on above: Performed By: #### T 7, LIPA, TSH, AMADOU, CMP #### [facility] [address] [address] [address] Krystle Heaton Platelet mean volume (Bld) [Entitic vol] 10.4 fL Normal 9.5-13.5 [facility] Comment on above: Performed By: #### T 7, LIPA, TSH, AMADOU, CMP #### [facility] [address] [place] [address] Dr. Krystle Heaton PLT 126 103/ul Critically low 150-450 [facility] Comment on above: Performed By: #### T 7, LIPA, TSH, AMADOU, CMP #### [facility] [address] [place] [address] Dr. Krystle Heaton RBC 3.54 106/ul Critically low 4.70-6.10 [facility] Comment on above: Performed By: #### T 7, LIPA, TSH, AMADOU, CMP #### [facility] [address] [place] [address] Dr. Krystle Heaton WBC 3.4 103/ul Critically low 4.0-11.0 [facility] Comment on above: Performed By: #### T 7, LIPA, TSH, AMADOU, CMP #### [facility] [address] [place] [address] Dr. Krystle Heaton FERRITINon 03-22-2021 Ferritin [Mass/Vol] ng/mL Critically high 17.9-464.0 [facility] Comment on above: Performed By: #### T 7, LIPA, TSH, AMADOU, CMP #### [facility] [address] [place] [address] Dr. Krystle Heaton FREE T4on 03-22-2021 Free T4 [Mass/Vol] 0.78 ng/dL Normal 0.78-2.19 [facility] Comment on above: Performed By: #### T 7, LIPA, TSH, AMADOU, CMP #### [facility] [address] [place] [address] Dr. Krystle Heaton IRON AND TIBCon 03-22-2021 % SATURATION 106.0 % Normal [facility] Comment on above: Performed By: #### T 7, LIPA, TSH, AMADOU, CMP #### [facility] [address] [place] [address] Dr. Krystle Heaton Iron [Mass/Vol] 233.0 ug/dL Critically high 49.0-181.0 [facility] Comment on above: Performed By: #### T 7, LIPA, TSH, AMADOU, CMP #### [facility] [address] [place] [address] Dr. Krystle Heaton TIBC DIRECT 220.0 ug/dL Critically low 261.0-497.0 [facility] Comment on above: Performed By: #### T 7, LIPA, TSH, AMADOU, CMP #### [facility] [address] [place] [address] Dr. Krystle Heaton PROF 14(COMP METB)on 021 Albumin [Mass/Vol] 3.5 g/dL Normal 3.5-5.0 [facility] Comment on above: Performed By: #### T 7, LIPA, TSH, AMADOU, CMP #### [facility] [address] [place] [address] Dr. Krystle Heaton Albumin/Globulin [Mass ratio] 1.0 {ratio} Normal [facility] Comment on above: Performed By: #### T 7, LIPA, TSH, AMADOU, CMP #### [facility] [address] [place] [address] Dr. Krystle Heaton ALP [Catalytic activity/Vol] 77 U/L Normal 38-126 [facility] Comment on above: Performed By: #### T 7, LIPA, TSH, AMADOU, CMP #### [facility] [address] [place] [address] Dr. Krystle Heaton ALT [Catalytic activity/Vol] 95 U/L Critically high 21-72 [facility] Comment on above: Performed By: #### T 7, LIPA, TSH, AMADOU, CMP #### [facility] [address] [address] [address] Krystle Heaton Anion gap [Moles/Vol] 17.3 mmol/L Normal [facility] Comment on above: Performed By: #### T 7, LIPA, TSH, AMADOU, CMP #### [facility] [address] [address] [address] Krystle Heaton AST [Catalytic activity/Vol] 161 U/L Critically high 17-59 [facility] Comment on above: Performed By: #### T 7, LIPA, TSH, AMADOU, CMP #### [facility] [address] [place] [address] Dr. Krystle Heaton Bilirubin [Mass/Vol] 0.8 mg/dL Normal 0.2-1.3 [facility] Comment on above: Performed By: #### T 7, LIPA, TSH, AMADOU, CMP #### [facility] [address] [place] [address] Dr. Krystle Heaton Calcium [Mass/Vol] 8.5 mg/dL Normal 8.4-10.2 [facility] Comment on above: Performed By: #### T 7, LIPA, TSH, AMADOU, CMP #### [facility] [address] [place] [address] Dr. Krystle Heaton Chloride [Moles/Vol] 101 mmol/L Normal 98-107 [facility] Comment on above: Performed By: #### T 7, LIPA, TSH, AMADOU, CMP #### [facility] [address] [place] [address] Dr. Krystle Heaton CO2 [Moles/Vol] 22.6 mmol/L Normal 22.0-30.0 [facility] Comment on above: Performed By: #### T 7, LIPA, TSH, AMADOU, CMP #### [facility] [address] [place] [address] Dr. Krystle Heaton Creatinine [Mass/Vol] 0.98 mg/dL Normal 0.66-1.25 [facility] Comment on above: Performed By: #### T 7, LIPA, TSH, AMADOU, CMP #### [facility] [address] [place] [address] Dr. Krystle Heaton EGFR-AF NIGERIEN >60 Normal >=60 [facility] Comment on above: Performed By: #### T 7, LIPA, TSH, AMADOU, CMP #### [facility] [address] [place] [address] Dr. Krystle Heaton EGFR-NON AF NIGERIEN >60 Normal >=60 [facility] Comment on above: Performed By: #### T 7, LIPA, TSH, AMADOU, CMP #### [facility] [address] [place] [address] Dr. Krystle Heaton Globulin (S) [Mass/Vol] 3.4 g/dL Normal [facility] Comment on above: Performed By: #### T 7, LIPA, TSH, AMADOU, CMP #### [facility] [address] [place] [address] Dr. Krystle Heaton Glucose [Mass/Vol] 103 mg/dL Normal 74-106 [facility] Comment on above: Performed By: #### T 7, LIPA, TSH, AMADOU, CMP #### [facility] [address] [place] [address] Dr. Krystle Heaton Potassium [Moles/Vol] 3.9 mmol/L Normal 3.4-5.0 [facility] Comment on above: Performed By: #### T 7, LIPA, TSH, AMADOU, CMP #### [facility] [address] [place] [address] Dr. Krystle Heaton Protein [Mass/Vol] 6.9 g/dL Normal 6.1-8.2 [facility] Comment on above: Performed By: #### T 7, LIPA, TSH, AMADOU, CMP #### [facility] [address] [place] [address] Dr. Krystle Heaton Sodium [Moles/Vol] 137 mmol/L Normal 137-145 [facility] Comment on above: Performed By: #### T 7, LIPA, TSH, AMADOU, CMP #### [facility] [address] [place] [address] Dr. Krystle Heaton Urea nitrogen [Mass/Vol] 8.0 mg/dL Critically low 9.0-20.0 [facility] Comment on above: Performed By: #### T 7, LIPA, TSH, AMADOU, CMP #### [facility] [address] [place] [address] Dr. Krystle Heaton Urea nitrogen/Creatinine [Mass ratio] 8.2 mg/mg Normal [facility] Comment on above: Performed By: #### T 7, LIPA, TSH, AMADOU, CMP #### [facility] [address] [place] [address] Dr. Krystle Heaton TSHon 03-22-2021 TSH 2.059 uIU/mL Normal 0.470-4.680 [facility] Comment on above: Performed By: #### T 7, LIPA, TSH, AMADOU, CMP #### [facility] [address] [place] [address] Dr. Krystle Heaton TSH RANGE SEE BELOW Normal [facility] Comment on above: Result Comment: <0.3 4 UIU/ml HYPERTHYROID 0.34-5.60 UIU/ml EUTHYROID >5.60 UIU/ml HYPOTHYROID Performed By: #### T 7, LIPA, TSH, AMADOU, CMP #### [facility] [address] [place] [address] Dr. Krystle Heaton CBC AUTO DIFFon 03-17-2021 BASO # 0.0 103/ul Normal 0.0-0.1 [facility] Comment on above: Performed By: #### T 7, LIPA, TSH, AMADOU, CMP #### [facility] [address] [place] [address] Dr. Krystle Heaton Basophils/100 WBC (Bld) 0.3 % Normal 0.2-2.0 [facility] Comment on above: Performed By: #### T 7, LIPA, TSH, AMADOU, CMP #### [facility] [address] [place] [address] Dr. Krystle Heaton EO # 0.1 103/ul Normal 0.0-0.7 [facility] Comment on above: Performed By: #### T 7, LIPA, TSH, AMADOU, CMP #### [facility] [address] [place] [address] Dr. Krystle Heaton Eosinophils/100 WBC (Bld) 1.8 % Normal 0.9-7.0 [facility] Comment on above: Performed By: #### T 7, LIPA, TSH, AMADOU, CMP #### [facility] [address] [place] [address] Dr. Krystle Heaton Erythrocyte distribution width (RBC) [Ratio] 12.5 % Normal 11.0-15.0 [facility] Comment on above: Performed By: #### T 7, LIPA, TSH, AMADOU, CMP #### [facility] [address] [place] [address] Dr. Krystle Heaton Hematocrit (Bld) [Volume fraction] 40.9 % Critically low 42.0-54.0 [facility] Comment on above: Performed By: #### T 7, LIPA, TSH, AMADOU, CMP #### [facility] [address] [place] [address] Dr. Krystle Heaton Hemoglobin (Bld) [Mass/Vol] 14.1 g/dL Normal 14.0-18.0 [facility] Comment on above: Performed By: #### T 7, LIPA, TSH, AMADOU, CMP #### [facility] [address] [place] [address] Dr. Krystle Heaton IG # 0.01 10e3/ul Normal 0.00-0.03 [facility] Comment on above: Performed By: #### T 7, LIPA, TSH, AMADOU, CMP #### [facility] [address] [place] [address] Dr. Krystle Heaton IG % 0.3 % Normal 0.0-0.5 [facility] Comment on above: Performed By: #### T 7, LIPA, TSH, AMADOU, CMP #### [facility] [address] [place] [address] Dr. Krystle Heaton LYMPH # 1.3 103/ul Normal 1.2-3.8 [facility] Comment on above: Performed By: #### T 7, LIPA, TSH, AMADOU, CMP #### [facility] [address] [place] [address] Dr. Krystle Heaton Lymphocytes/100 WBC (Bld) 41.1 % Normal 20.5-60.0 [facility] Comment on above: Performed By: #### T 7, LIPA, TSH, AMADOU, CMP #### [facility] [address] [place] [address] Dr. Krystle Heaton MANUAL DIFF REQ NO Normal [facility] Comment on above: Performed By: #### T 7, LIPA, TSH, AMADOU, CMP #### [facility] [address] [place] [address] Dr. Krystle Heaton MCH (RBC) [Entitic mass] 36.3 pg Critically high 25.9-34.0 [facility] Comment on above: Performed By: #### T 7, LIPA, TSH, AMADOU, CMP #### [facility] [address] [place] [address] Dr. Krystle Heaton MCHC (RBC) [Mass/Vol] 34.5 g/dL Normal 29.9-35.2 [facility] Comment on above: Performed By: #### T 7, LIPA, TSH, AMADOU, CMP #### [facility] [address] [place] [address] Dr. Krystle Heaton MCV (RBC) [Entitic vol] 105.4 fL Critically high 80.0-94.0 [facility] Comment on above: Performed By: #### T 7, LIPA, TSH, AMADOU, CMP #### [facility] [address] [place] [address] Dr. Krystle Heaton MONO # 0.3 103/ul Normal 0.3-0.8 [facility] Comment on above: Performed By: #### T 7, LIPA, TSH, AMADOU, CMP #### [facility] [address] [place] [address] Dr. Krystle Heaton Monocytes/100 WBC (Bld) 8.0 % Normal 1.7-12.0 [facility] Comment on above: Performed By: #### T 7, LIPA, TSH, AMADOU, CMP #### [facility] [address] [address] [address] Krystle Heaton NEUT # 1.6 103/ul Normal 1.4-6.5 [facility] Comment on above: Performed By: #### T 7, LIPA, TSH, AMADOU, CMP #### [facility] [address] [address] [address] Krystle Heaton Neutrophils/100 WBC (Bld) 48.5 % Normal 43.0-75.0 [facility] Comment on above: Performed By: #### T 7, LIPA, TSH, AMADOU, CMP #### [facility] [address] [place] [address] Dr. Krystle Heaton Platelet mean volume (Bld) [Entitic vol] 10.6 fL Normal 9.5-13.5 [facility] Comment on above: Performed By: #### T 7, LIPA, TSH, AMADOU, CMP #### [facility] [address] [place] [address] Dr. Krystle Heaton PLT 134 103/ul Critically low 150-450 [facility] Comment on above: Performed By: #### T 7, LIPA, TSH, AMADOU, CMP #### [facility] [address] [place] [address] Dr. Krystle Heaton RBC 3.88 106/ul Critically low 4.70-6.10 [facility] Comment on above: Result Comment: Macr ocytosis 1+ Stomatocytes 1+ Performed By: #### T 7, LIPA, TSH, AMADOU, CMP #### [facility] [address] [place] [address] Dr. Krystle Heaton WBC 3.3 103/ul Critically low 4.0-11.0 [facility] Comment on above: Performed By: #### T 7, LIPA, TSH, AMADOU, CMP #### [facility] [address] [place] [address] Dr. Krystle Heaton FERRITINon 03-17-2021 Ferritin [Mass/Vol] ng/mL Critically high 17.9-464.0 [facility] Comment on above: Performed By: #### T 7, LIPA, TSH, AMADOU, CMP #### [facility] [address] [place] [address] Dr. Krystle Heaton FREE T4on 03-17-2021 Free T4 [Mass/Vol] 0.82 ng/dL Normal 0.78-2.19 [facility] Comment on above: Performed By: #### T 7, LIPA, TSH, AMADOU, CMP #### [facility] [address] [place] [address] Dr. Krystle Heaton IRON AND TIBCon 03-17-2021 % SATURATION 100.8 % Normal [facility] Comment on above: Performed By: #### T 7, LIPA, TSH, AMADOU, CMP #### [facility] [address] [place] [address] Dr. Krystle Heaton Iron [Mass/Vol] 249.0 ug/dL Critically high 49.0-181.0 [facility] Comment on above: Performed By: #### T 7, LIPA, TSH, AMADOU, CMP #### [facility] [address] [place] [address] Dr. Krystle Heaton TIBC DIRECT 247.0 ug/dL Critically low 261.0-497.0 [facility] Comment on above: Performed By: #### T 7, LIPA, TSH, AMADOU, CMP #### [facility] [address] [place] [address] Dr. Krystle Heaton PROF 14(COMP METB)on 021 Albumin [Mass/Vol] 3.7 g/dL Normal 3.5-5.0 [facility] Comment on above: Performed By: #### T 7, LIPA, TSH, AMADOU, CMP #### [facility] [address] [place] [address] Dr. Krystle Heaton Albumin/Globulin [Mass ratio] 1.1 {ratio} Normal [facility] Comment on above: Performed By: #### T 7, LIPA, TSH, AMADOU, CMP #### [facility] [address] [place] [address] Dr. Krystle Heaton ALP [Catalytic activity/Vol] 78 U/L Normal 38-126 The [facility] Comment on above: Performed By: #### T 7, LIPA, TSH, AMADOU, CMP #### [facility] [address] [place] [address] Dr. Krystle Heaton ALT [Catalytic activity/Vol] 100 U/L Critically high 21-72 [facility] Comment on above: Performed By: #### T 7, LIPA, TSH, AMADOU, CMP #### [facility] [address] [place] [address] Dr. Krystle Heaton Anion gap [Moles/Vol] 14.4 mmol/L Normal [facility] Comment on above: Performed By: #### T 7, LIPA, TSH, AMADOU, CMP #### [facility] [address] [place] [address] Dr. Krystle Heaton AST [Catalytic activity/Vol] 158 U/L Critically high 17-59 [facility] Comment on above: Performed By: #### T 7, LIPA, TSH, AMADOU, CMP #### [facility] [address] [place] [address] Dr. Krystle Heaton Bilirubin [Mass/Vol] 0.6 mg/dL Normal 0.2-1.3 [facility] Comment on above: Performed By: #### T 7, LIPA, TSH, AMADOU, CMP #### [facility] [address] [place] [address] Dr. Krystle Heaton Calcium [Mass/Vol] 8.9 mg/dL Normal 8.4-10.2 [facility] Comment on above: Performed By: #### T 7, LIPA, TSH, AMADOU, CMP #### [facility] [address] [place] [address] Dr. Krystle Heaton Chloride [Moles/Vol] 100 mmol/L Normal 98-107 [facility] Comment on above: Performed By: #### T 7, LIPA, TSH, AMADOU, CMP #### [facility] [address] [place] [address] Dr. Krystle Heaton CO2 [Moles/Vol] 27.3 mmol/L Normal 22.0-30.0 [facility] Comment on above: Performed By: #### T 7, LIPA, TSH, AMADOU, CMP #### [facility] [address] [address] [address] Krystle Heaton Creatinine [Mass/Vol] 1.08 mg/dL Normal 0.66-1.25 [facility] Comment on above: Performed By: #### T 7, LIPA, TSH, AMADOU, CMP #### [facility] [address] [address] [address] Krystle Heaton EGFR-AF NIGERIEN >60 Normal >=60 [facility] Comment on above: Performed By: #### T 7, LIPA, TSH, AMADOU, CMP #### [facility] [address] [place] [address] Dr. Krystle Heaton EGFR-NON AF NIGERIEN >60 Normal >=60 [facility] Comment on above: Performed By: #### T 7, LIPA, TSH, AMADOU, CMP #### [facility] [address] [place] [address] Dr. Krystle Heaton Globulin (S) [Mass/Vol] 3.5 g/dL Normal [facility] Comment on above: Performed By: #### T 7, LIPA, TSH, AMADOU, CMP #### [facility] [address] [place] [address] Dr. Krystle Heaton Glucose [Mass/Vol] 115 mg/dL Critically high 74-106 [facility] Comment on above: Performed By: #### T 7, LIPA, TSH, AMADOU, CMP #### [facility] [address] [place] [address] Dr. Krystle Heaton Potassium [Moles/Vol] 3.7 mmol/L Normal 3.4-5.0 [facility] Comment on above: Performed By: #### T 7, LIPA, TSH, AMADOU, CMP #### [facility] [address] [place] [address] Dr. Krystle Heaton Protein [Mass/Vol] 7.2 g/dL Normal 6.1-8.2 [facility] Comment on above: Performed By: #### T 7, LIPA, TSH, AMADOU, CMP #### [facility] [address] [place] [address] Dr. Krystle Heaton Sodium [Moles/Vol] 138 mmol/L Normal 137-145 [facility] Comment on above: Performed By: #### T 7, LIPA, TSH, AMADOU, CMP #### [facility] [address] [place] [address] Dr. Krystle Heaton Urea nitrogen [Mass/Vol] 10.0 mg/dL Normal 9.0-20.0 [facility] Comment on above: Performed By: #### T 7, LIPA, TSH, AMADOU, CMP #### [facility] [address] [place] [address] Dr. Krystle Heaton Urea nitrogen/Creatinine [Mass ratio] 9.3 mg/mg Normal [facility] Comment on above: Performed By: #### T 7, LIPA, TSH, AMADOU, CMP #### [facility] [address] [place] [address] Dr. Krystle Heaton TSHon 03-17-2021 TSH 1.904 uIU/mL Normal 0.470-4.680 [facility] Comment on above: Performed By: #### T 7, LIPA, TSH, AMADOU, CMP #### [facility] [address] [place] [address] Dr. Krystle Heaton TSH RANGE SEE BELOW Normal [facility] Comment on above: Result Comment: <0.3 4 UIU/ml HYPERTHYROID 0.34-5.60 UIU/ml EUTHYROID >5.60 UIU/ml HYPOTHYROID Performed By: #### T 7, LIPA, TSH, AMADOU, CMP #### [facility] [address] [place] [address] Dr. Krystle Heaton CBC AUTO DIFFon 03-08-2021 BASO # 0.0 103/ul Normal 0.0-0.1 [facility] Comment on above: Performed By: #### T 7, LIPA, TSH, AMADOU, CMP #### [facility] [address] [place] [address] Dr. Krystle Heaton Basophils/100 WBC (Bld) 0.8 % Normal 0.2-2.0 [facility] Comment on above: Performed By: #### T 7, LIPA, TSH, AMADOU, CMP #### [facility] [address] [place] [address] Dr. Krystle Heaton EO # 0.1 103/ul Normal 0.0-0.7 [facility] Comment on above: Performed By: #### T 7, LIPA, TSH, AMADOU, CMP #### [facility] [address] [place] [address] Dr. Krystle Heaton Eosinophils/100 WBC (Bld) 1.5 % Normal 0.9-7.0 [facility] Comment on above: Performed By: #### T 7, LIPA, TSH, AMADOU, CMP #### [facility] [address] [place] [address] Dr. Krystle Heaton Erythrocyte distribution width (RBC) [Ratio] 12.2 % Normal 11.0-15.0 [facility] Comment on above: Performed By: #### T 7, LIPA, TSH, AMADOU, CMP #### [facility] [address] [place] [address] Dr. Krystle Heaton Hematocrit (Bld) [Volume fraction] 45.5 % Normal 42.0-54.0 [facility] Comment on above: Performed By: #### T 7, LIPA, TSH, AMADOU, CMP #### [facility] [address] [place] [address] Dr. Kyrstle Heaton Hemoglobin (Bld) [Mass/Vol] 15.9 g/dL Normal 14.0-18.0 [facility] Comment on above: Performed By: #### T 7, LIPA, TSH, AMADOU, CMP #### [facility] [address] [place] [address] Dr. Krystle Heaton IG # 0.01 10e3/ul Normal 0.00-0.03 [facility] Comment on above: Performed By: #### T 7, LIPA, TSH, AMADOU, CMP #### [facility] [address] [place] [address] Dr. Krystle Heaton IG % 0.2 % Normal 0.0-0.5 [facility] Comment on above: Performed By: #### T 7, LIPA, TSH, AMADOU, CMP #### [facility] [address] [place] [address] Dr. Krystle Heaton LYMPH # 1.8 103/ul Normal 1.2-3.8 [facility] Comment on above: Performed By: #### T 7, LIPA, TSH, AMADOU, CMP #### [facility] [address] [place] [address] Dr. Krystle Heaton Lymphocytes/100 WBC (Bld) 37.8 % Normal 20.5-60.0 [facility] Comment on above: Performed By: #### T 7, LIPA, TSH, AMADOU, CMP #### [facility] [address] [place] [address] Dr. Krystle Heaton MANUAL DIFF REQ NO Normal [facility] Comment on above: Performed By: #### T 7, LIPA, TSH, AMADOU, CMP #### [facility] [address] [place] [address] Dr. Krystle Heaton MCH (RBC) [Entitic mass] 36.4 pg Critically high 25.9-34.0 [facility] Comment on above: Performed By: #### T 7, LIPA, TSH, AMADOU, CMP #### [facility] [address] [place] [address] Dr. Krystle Heaton MCHC (RBC) [Mass/Vol] 34.9 g/dL Normal 29.9-35.2 [facility] Comment on above: Performed By: #### T 7, LIPA, TSH, AMADOU, CMP #### [facility] [address] [place] [address] Dr. Krystle Heaton MCV (RBC) [Entitic vol] 104.1 fL Critically high 80.0-94.0 [facility] Comment on above: Performed By: #### T 7, LIPA, TSH, AMADOU, CMP #### [facility] [address] [place] [address] Dr. Krystle Heaton MONO # 0.4 103/ul Normal 0.3-0.8 [facility] Comment on above: Performed By: #### T 7, LIPA, TSH, AMADOU, CMP #### [facility] [address] [place] [address] Dr. Krystle Heaton Monocytes/100 WBC (Bld) 8.3 % Normal 1.7-12.0 [facility] Comment on above: Performed By: #### T 7, LIPA, TSH, AMADOU, CMP #### [facility] [address] [place] [address] Dr. Krystle Heaton NEUT # 2.4 103/ul Normal 1.4-6.5 [facility] Comment on above: Performed By: #### T 7, LIPA, TSH, AMADOU, CMP #### [facility] [address] [place] [address] Dr. Krystle Heaton Neutrophils/100 WBC (Bld) 51.4 % Normal 43.0-75.0 [facility] Comment on above: Performed By: #### T 7, LIPA, TSH, AMADOU, CMP #### [facility] [address] [place] [address] Dr. Krystle Heaton Platelet mean volume (Bld) [Entitic vol] 10.8 fL Normal 9.5-13.5 [facility] Comment on above: Performed By: #### T 7, LIPA, TSH, AMADOU, CMP #### [facility] [address] [place] [address] Dr. Krystle Heaton PLT 175 103/ul Normal 150-450 [facility] Comment on above: Performed By: #### T 7, LIPA, TSH, AMADOU, CMP #### [facility] [address] [place] [address] Dr. Krystle Heaton RBC 4.37 106/ul Critically low 4.70-6.10 [facility] Comment on above: Performed By: #### T 7, LIPA, TSH, AMADOU, CMP #### [facility] [address] [place] [address] Dr. Krystle Heaton WBC 4.7 103/ul Normal 4.0-11.0 [facility] Comment on above: Performed By: #### T 7, LIPA, TSH, AMADOU, CMP #### [facility] [address] [place] [address] Dr. Krystle Heaton FERRITINon 03-08-2021 Ferritin [Mass/Vol] ng/mL Critically high 17.9-464.0 [facility] Comment on above: Performed By: #### T 7, LIPA, TSH, AMADOU, CMP #### [facility] [address] [place] [address] Dr. Krystle Heaton FREE T4on 03-08-2021 Free T4 [Mass/Vol] 0.73 ng/dL Critically low 0.78-2.19 [facility] Comment on above: Performed By: #### T 7, LIPA, TSH, AMADOU, CMP #### [facility] [address] [place] [address] Dr. Krystle Heaton IRON AND TIBCon 03-08-2021 % SATURATION 102.2 % Normal [facility] Comment on above: Performed By: #### T 7, LIPA, TSH, AMADOU, CMP #### [facility] [address] [place] [address] Dr. Krystle Heaton Iron [Mass/Vol] 279.0 ug/dL Critically high 49.0-181.0 [facility] Comment on above: Performed By: #### T 7, LIPA, TSH, AMADOU, CMP #### [facility] [address] [place] [address] Dr. Krystle Heaton TIBC DIRECT 273.0 ug/dL Normal 261.0-497.0 [facility] Comment on above: Performed By: #### T 7, LIPA, TSH, AMADOU, CMP #### [facility] [address] [place] [address] Dr. Krystle Heaton PROF 14(COMP METB)on 021 Albumin [Mass/Vol] 3.6 g/dL Normal 3.5-5.0 [facility] Comment on above: Performed By: #### T 7, LIPA, TSH, AMADOU, CMP #### [facility] [address] [place] [address] Dr. Krystle Heaton Albumin/Globulin [Mass ratio] 1.0 {ratio} Normal [facility] Comment on above: Performed By: #### T 7, LIPA, TSH, AMADOU, CMP #### [facility] [address] [place] [address] Dr. Krystle Heaton ALP [Catalytic activity/Vol] 68 U/L Normal 38-126 [facility] Comment on above: Performed By: #### T 7, LIPA, TSH, AMADOU, CMP #### [facility] [address] [place] [address] Dr. Krystle Heaton ALT [Catalytic activity/Vol] 58 U/L Normal 21-72 [facility] Comment on above: Performed By: #### T 7, LIPA, TSH, AMADOU, CMP #### [facility] [address] [place] [address] Dr. Krystle Heaton Anion gap [Moles/Vol] 15.5 mmol/L Normal [facility] Comment on above: Performed By: #### T 7, LIPA, TSH, AMADOU, CMP #### [facility] [address] [place] [address] Dr. Krystle Heaton AST [Catalytic activity/Vol] 56 U/L Normal 17-59 [facility] Comment on above: Performed By: #### T 7, LIPA, TSH, AMADOU, CMP #### [facility] [address] [place] [address] Dr. Krystle Heaton Bilirubin [Mass/Vol] 0.7 mg/dL Normal 0.2-1.3 [facility] Comment on above: Performed By: #### T 7, LIPA, TSH, AMADOU, CMP #### [facility] [address] [place] [address] Dr. Krystle Heaton Calcium [Mass/Vol] 8.9 mg/dL Normal 8.4-10.2 [facility] Comment on above: Performed By: #### T 7, LIPA, TSH, MAADOU, CMP #### [facility] [address] [place] [address] Dr. Krystle Heaton Chloride [Moles/Vol] 100 mmol/L Normal 98-107 [facility] Comment on above: Performed By: #### T 7, LIPA, TSH, AMADOU, CMP #### [facility] [address] [address] [address] Krystle Heaton CO2 [Moles/Vol] 26.6 mmol/L Normal 22.0-30.0 [facility] Comment on above: Performed By: #### T 7, LIPA, TSH, AMADOU, CMP #### [facility] [address] [place] [address] Dr. Krystle Heaton Creatinine [Mass/Vol] 1.12 mg/dL Normal 0.66-1.25 [facility] Comment on above: Performed By: #### T 7, LIPA, TSH, AMADOU, CMP #### [facility] [address] [place] [address] Dr. Krystle Heaton EGFR-AF NIGERIEN >60 Normal >=60 [facility] Comment on above: Performed By: #### T 7, LIPA, TSH, AMADOU, CMP #### [facility] [address] [place] [address] Dr. Krystle Heaton EGFR-NON AF NIGERIEN >60 Normal >=60 [facility] Comment on above: Performed By: #### T 7, LIPA, TSH, AMADOU, CMP #### [facility] [address] [place] [address] Dr. Krystle Heaton Globulin (S) [Mass/Vol] 3.7 g/dL Normal [facility] Comment on above: Performed By: #### T 7, LIPA, TSH, AMADOU, CMP #### [facility] [address] [place] [address] Dr. Krystle Heaton Glucose [Mass/Vol] 101 mg/dL Normal 74-106 [facility] Comment on above: Performed By: #### T 7, LIPA, TSH, AMADOU, CMP #### [facility] [address] [address] [address] Krystle Heaton Potassium [Moles/Vol] 4.1 mmol/L Normal 3.4-5.0 [facility] Comment on above: Performed By: #### T 7, LIPA, TSH, AMADOU, CMP #### [facility] [address] [place] [address] Dr. Krystle Heaton Protein [Mass/Vol] 7.3 g/dL Normal 6.1-8.2 [facility] Comment on above: Performed By: #### T 7, LIPA, TSH, AMADOU, CMP #### [facility] [address] [place] [address] Dr. Krystle Heaton Sodium [Moles/Vol] 138 mmol/L Normal 137-145 [facility] Comment on above: Performed By: #### T 7, LIPA, TSH, AMADOU, CMP #### [facility] [address] [place] [address] Dr. Krystle Heaton Urea nitrogen [Mass/Vol] 17.0 mg/dL Normal 9.0-20.0 [facility] Comment on above: Performed By: #### T 7, LIPA, TSH, AMADOU, CMP #### [facility] [address] [place] [address] Dr. Krystle Heaton Urea nitrogen/Creatinine [Mass ratio] 15.2 mg/mg Normal [facility] Comment on above: Performed By: #### T 7, LIPA, TSH, AMADOU, CMP #### [facility] [address] [place] [address] Dr. Krystle Heaton TSHon 03-08-2021 TSH 1.781 uIU/mL Normal 0.470-4.680 [facility] Comment on above: Performed By: #### T 7, LIPA, TSH, AMADOU, CMP #### [facility] [address] [place] [address] Dr. Krystle Heaton TSH RANGE SEE BELOW Normal [facility] Comment on above: Result Comment: <0.3 4 UIU/ml HYPERTHYROID 0.34-5.60 UIU/ml EUTHYROID >5.60 UIU/ml HYPOTHYROID Performed By: #### T 7, LIPA, TSH, AMADOU, CMP #### [facility] [address] [place] [address] Dr. Krystle Heaton FERRITINon 02-03-2021 Ferritin [Mass/Vol] ng/mL Critically high 17.9-464.0 [facility] Comment on above: Performed By: #### C BC #### [facility] [address] [place] [address] Billy Devlin [facility] SARS-CoV-2 (COVID-19) RNA JIMBO+probe Ql (Unsp spec) Not detected Normal NOT DETECTED [facility] Comment on above: Result Comment: This test is not yet approved or cleared by the [place] FDA. When there are no FDA-approved or cleared tests available, and other criteria are met, FDA can make tests available under an emergency access mechanism called an Emergency Use Authorization (EUA). The EUA for this test is supported by the [place] of Health and Human Service's (HHS's) declaration [...] T 7, LIPA, TSH, AMADOU, CMP #### [facility] [address] [place] [address] Dr. Krystle Heaton CBC AUTO DIFFon 01-06-2021 BASO # 0.0 103/ul Normal 0.0-0.1 [facility] Comment on above: Performed By: #### T 7, LIPA, TSH, AMADOU, CMP #### [facility] [address] [place] [address] Dr. Krystle Heaton Basophils/100 WBC (Bld) 1.0 % Normal 0.2-2.0 [facility] Comment on above: Performed By: #### T 7, LIPA, TSH, AMADOU, CMP #### [facility] [address] [place] [address] Dr. Krystle Heaton EO # 0.1 103/ul Normal 0.0-0.7 [facility] Comment on above: Performed By: #### T 7, LIPA, TSH, AMADOU, CMP #### [facility] [address] [place] [address] Dr. Krystle Heaton Eosinophils/100 WBC (Bld) 2.5 % Normal 0.9-7.0 [facility] Comment on above: Performed By: #### T 7, LIPA, TSH, AMADOU, CMP #### [facility] [address] [place] [address] Dr. Krystle Heaton Erythrocyte distribution width (RBC) [Ratio] 13.7 % Normal 11.0-15.0 [facility] Comment on above: Performed By: #### T 7, LIPA, TSH, AMADOU, CMP #### [facility] [address] [place] [address] Dr. Krystle Heaton Hematocrit (Bld) [Volume fraction] 44.1 % Normal 42.0-54.0 [facility] Comment on above: Performed By: #### T 7, LIPA, TSH, AMADOU, CMP #### [facility] [address] [place] [address] Dr. Krystle Heaton Hemoglobin (Bld) [Mass/Vol] 15.0 g/dL Normal 14.0-18.0 [facility] Comment on above: Performed By: #### T 7, LIPA, TSH, AMADOU, CMP #### [facility] [address] [place] [address] Dr. Krystle Heaton IG # 0.02 10e3/ul Normal 0.00-0.03 [facility] Comment on above: Performed By: #### T 7, LIPA, TSH, AMADOU, CMP #### [facility] [address] [place] [address] Dr. Krystle Heaton IG % 0.5 % Normal 0.0-0.5 [facility] Comment on above: Performed By: #### T 7, LIPA, TSH, AMADOU, CMP #### [facility] [address] [place] [address] Dr. Krystle Heaton LYMPH # 1.6 103/ul Normal 1.2-3.8 [facility] Comment on above: Performed By: #### T 7, LIPA, TSH, AMADOU, CMP #### [facility] [address] [place] [address] Dr. Krystle Heaton Lymphocytes/100 WBC (Bld) 40.7 % Normal 20.5-60.0 [facility] Comment on above: Performed By: #### T 7, LIPA, TSH, AMADOU, CMP #### [facility] [address] [place] [address] Dr. Krystle Heaton MANUAL DIFF REQ NO Normal [facility] Comment on above: Performed By: #### T 7, LIPA, TSH, AMADOU, CMP #### [facility] [address] [place] [address] Dr. Krystle Heaton MCH (RBC) [Entitic mass] 36.2 pg Critically high 25.9-34.0 [facility] Comment on above: Performed By: #### T 7, LIPA, TSH, AMADOU, CMP #### [facility] [address] [place] [address] Dr. Krystle Heaton MCHC (RBC) [Mass/Vol] 34.0 g/dL Normal 29.9-35.2 [facility] Comment on above: Performed By: #### T 7, LIPA, TSH, AMADOU, CMP #### [facility] [address] [place] [address] Dr. Krystle Heaton MCV (RBC) [Entitic vol] 106.5 fL Critically high 80.0-94.0 [facility] Comment on above: Performed By: #### T 7, LIPA, TSH, AMADOU, CMP #### [facility] [address] [place] [address] Dr. Krystle Heaton MONO # 0.3 103/ul Normal 0.3-0.8 [facility] Comment on above: Performed By: #### T 7, LIPA, TSH, AMADOU, CMP #### [facility] [address] [place] [address] Dr. Krystle Heaton Monocytes/100 WBC (Bld) 8.1 % Normal 1.7-12.0 [facility] Comment on above: Performed By: #### T 7, LIPA, TSH, AMADOU, CMP #### [facility] [address] [address] [address] Krystle Heaton NEUT # 1.9 103/ul Normal 1.4-6.5 [facility] Comment on above: Performed By: #### T 7, LIPA, TSH, AMADOU, CMP #### [facility] [address] [place] [address] Dr. Krystle Heaton Neutrophils/100 WBC (Bld) 47.2 % Normal 43.0-75.0 [facility] Comment on above: Performed By: #### T 7, LIPA, TSH, AMADOU, CMP #### [facility] [address] [place] [address] Dr. Krystle Heaton Platelet mean volume (Bld) [Entitic vol] 11.6 fL Normal 9.5-13.5 [facility] Comment on above: Performed By: #### T 7, LIPA, TSH, AMADOU, CMP #### [facility] [address] [place] [address] Dr. Krystle Heaton PLT 184 103/ul Normal 150-450 [facility] Comment on above: Performed By: #### T 7, LIPA, TSH, AMADOU, CMP #### [facility] [address] [place] [address] Dr. Krystle Heaton RBC 4.14 106/ul Critically low 4.70-6.10 [facility] Comment on above: Performed By: #### T 7, LIPA, TSH, AMADOU, CMP #### [facility] [address] [place] [address] Dr. Krystle Heaton WBC 4.0 103/ul Normal 4.0-11.0 [facility] Comment on above: Performed By: #### T 7, LIPA, TSH, AMADOU, CMP #### [facility] [address] [address] [address] Krystle Heaton FERRITINon 01-06-2021 Ferritin [Mass/Vol] ng/mL Critically high 17.9-464.0 [facility] Comment on above: Performed By: #### H BSANS #### [facility] [address] [place] [address] Billy Devlin CBC AUTO DIFFon 12-09-2020 BASO # 0.0 103/ul Normal 0.0-0.1 [facility] Comment on above: Performed By: #### T 7, LIPA, TSH, AMADOU, CMP #### [facility] [address] [place] [address] Dr. Krystle Heaton Basophils/100 WBC (Bld) 0.6 % Normal 0.2-2.0 [facility] Comment on above: Performed By: #### T 7, LIPA, TSH, AMADOU, CMP #### [facility] [address] [place] [address] Dr. Krystle Heaton EO # 0.1 103/ul Normal 0.0-0.7 [facility] Comment on above: Performed By: #### T 7, LIPA, TSH, AMADOU, CMP #### [facility] [address] [place] [address] Dr. Krystle Heaton Eosinophils/100 WBC (Bld) 2.6 % Normal 0.9-7.0 [facility] Comment on above: Performed By: #### T 7, LIPA, TSH, AMADOU, CMP #### [facility] [address] [place] [address] Dr. Krystle [place] Erythrocyte distribution width (RBC) [Ratio] 13.0 % Normal 11.0-15.0 [facility] Comment on above: Performed By: #### T 7, LIPA, TSH, AMADOU, CMP #### [facility] [address] [place] [address] Dr. Krystle Heaton Hematocrit (Bld) [Volume fraction] 46.2 % Normal 42.0-54.0 [facility] Comment on above: Performed By: #### T 7, LIPA, TSH, AMADOU, CMP #### [facility] [address] [place] [address] Dr. Krystle Heaton Hemoglobin (Bld) [Mass/Vol] 16.0 g/dL Normal 14.0-18.0 [facility] Comment on above: Performed By: #### T 7, LIPA, TSH, AMADOU, CMP #### [facility] [address] [place] [address] Dr. Krystle Heaton IG # 0.01 10e3/ul Normal 0.00-0.03 [facility] Comment on above: Performed By: #### T 7, LIPA, TSH, AMADOU, CMP #### [facility] [address] [place] [address] Dr. Krystle Heaton IG % 0.2 % Normal 0.0-0.5 [facility] Comment on above: Performed By: #### T 7, LIPA, TSH, AMADOU, CMP #### [facility] [address] [place] [address] Dr. Krystle Heaton LYMPH # 1.3 103/ul Normal 1.2-3.8 [facility] Comment on above: Performed By: #### T 7, LIPA, TSH, AMADOU, CMP #### [facility] [address] [place] [address] Dr. Krystle Heaton Lymphocytes/100 WBC (Bld) 27.8 % Normal 20.5-60.0 [facility] Comment on above: Performed By: #### T 7, LIPA, TSH, AMADOU, CMP #### [facility] [address] [place] [address] Dr. Krystle Heaton MANUAL DIFF REQ NO Normal [facility] Comment on above: Performed By: #### T 7, LIPA, TSH, MAADOU, CMP #### [facility] [address] [place] [address] Dr. Krystle Heaton MCH (RBC) [Entitic mass] 34.9 pg Critically high 25.9-34.0 [facility] Comment on above: Performed By: #### T 7, LIPA, TSH, AMADOU, CMP #### [facility] [address] [place] [address] Dr. Krystle Heaton MCHC (RBC) [Mass/Vol] 34.6 g/dL Normal 29.9-35.2 [facility] Comment on above: Performed By: #### T 7, LIPA, TSH, AMADOU, CMP #### [facility] [address] [place] [address] Dr. Krystle Heaton MCV (RBC) [Entitic vol] 100.9 fL Critically high 80.0-94.0 [facility] Comment on above: Performed By: #### T 7, LIPA, TSH, AMADOU, CMP #### [facility] [address] [place] [address] Dr. Krystle Heaton MONO # 0.3 103/ul Normal 0.3-0.8 [facility] Comment on above: Performed By: #### T 7, LIPA, TSH, AMADOU, CMP #### [facility] [address] [place] [address] Dr. Krystle Heaton Monocytes/100 WBC (Bld) 6.6 % Normal 1.7-12.0 [facility] Comment on above: Performed By: #### T 7, LIPA, TSH, AMADOU, CMP #### [facility] [address] [place] [address] Dr. Krystle Heaton NEUT # 2.9 103/ul Normal 1.4-6.5 [facility] Comment on above: Performed By: #### T 7, LIPA, TSH, AMADOU, CMP #### [facility] [address] [place] [address] Dr. Krystle Heaton Neutrophils/100 WBC (Bld) 62.2 % Normal 43.0-75.0 [facility] Comment on above: Performed By: #### T 7, LIPA, TSH, AMADOU, CMP #### [facility] [address] [place] [address] Dr. Krystle Heaton Platelet mean volume (Bld) [Entitic vol] 11.0 fL Normal 9.5-13.5 [facility] Comment on above: Performed By: #### T 7, LIPA, TSH, AMADOU, CMP #### [facility] [address] [place] [address] Dr. Krystle Heaton PLT 171 103/ul Normal 150-450 [facility] Comment on above: Performed By: #### T 7, LIPA, TSH, AMADOU, CMP #### [facility] [address] [address] [address] Krystle Heaton RBC 4.58 106/ul Critically low 4.70-6.10 [facility] Comment on above: Performed By: #### T 7, LIPA, TSH, AMADOU, CMP #### [facility] [address] [place] [address] Dr. Krystle Heaton WBC 4.7 103/ul Normal 4.0-11.0 [facility] Comment on above: Performed By: #### T 7, LIPA, TSH, AMADOU, CMP #### [facility] [address] [place] [address] Dr. Krystle Heaton PROF 14(COMP METB)on 021 Albumin [Mass/Vol] 3.9 g/dL Normal 3.5-5.0 [facility] Comment on above: Performed By: #### T 7, LIPA, TSH, AMADOU, CMP #### [facility] [address] [place] [address] Dr. Krystle Heaton Albumin/Globulin [Mass ratio] 1.1 {ratio} Normal [facility] Comment on above: Performed By: #### T 7, LIPA, TSH, AMADOU, CMP #### [facility] [address] [place] [address] Dr. Krystle Heaton ALP [Catalytic activity/Vol] 86 U/L Normal 38-126 [facility] Comment on above: Performed By: #### T 7, LIPA, TSH, AMADOU, CMP #### [facility] [address] [place] [address] Dr. Krystle Heaton ALT [Catalytic activity/Vol] 87 U/L Critically high 21-72 [facility] Comment on above: Performed By: #### T 7, LIPA, TSH, AMADOU, CMP #### [facility] [address] [place] [address] Dr. Krystle Heaton Anion gap [Moles/Vol] 15.7 mmol/L Normal [facility] Comment on above: Performed By: #### T 7, LIPA, TSH, AMADOU, CMP #### [facility] [address] [place] [address] Dr. Krystle Heaton AST [Catalytic activity/Vol] 70 U/L Critically high 17-59 [facility] Comment on above: Performed By: #### T 7, LIPA, TSH, AMADOU, CMP #### [facility] [address] [place] [address] Dr. Krystle Heaton Bilirubin [Mass/Vol] 1.4 mg/dL Critically high 0.2-1.3 [facility] Comment on above: Performed By: #### T 7, LIPA, TSH, AMADOU, CMP #### [facility] [address] [place] [address] Dr. Krystle Heaton Calcium [Mass/Vol] 9.3 mg/dL Normal 8.4-10.2 [facility] Comment on above: Performed By: #### T 7, LIPA, TSH, AMADOU, CMP #### [facility] [address] [place] [address] Dr. Krystle Heaton Chloride [Moles/Vol] 102 mmol/L Normal 98-107 [facility] Comment on above: Performed By: #### T 7, LIPA, TSH, AMADOU, CMP #### [facility] [address] [place] [address] Dr. Krystle Heaton CO2 [Moles/Vol] 26.5 mmol/L Normal 22.0-30.0 [facility] Comment on above: Performed By: #### T 7, LIPA, TSH, AMADOU, CMP #### [facility] [address] [place] [address] Dr. Krystle Heaton Creatinine [Mass/Vol] 1.27 mg/dL Critically high 0.66-1.25 [facility] Comment on above: Performed By: #### T 7, LIPA, TSH, AMADOU, CMP #### [facility] [address] [place] [address] Dr. Krystle Heaton EGFR-AF NIGERIEN >60 Normal >=60 [facility] Comment on above: Performed By: #### T 7, LIPA, TSH, AMADOU, CMP #### [facility] [address] [place] [address] Dr. Krystle Heaton EGFR-NON AF NIGERIEN =60 Normal >=60 [facility] Comment on above: Performed By: #### T 7, LIPA, TSH, AMADOU, CMP #### [facility] [address] [place] [address] Dr. Krystle Heaton Globulin (S) [Mass/Vol] 3.5 g/dL Normal [facility] Comment on above: Performed By: #### T 7, LIPA, TSH, AMADOU, CMP #### [facility] [address] [place] [address] Dr. Krystle Heatno Glucose [Mass/Vol] 120 mg/dL Critically high 74-106 [facility] Comment on above: Performed By: #### T 7, LIPA, TSH, AMADOU, CMP #### [facility] [address] [place] [address] Dr. Krystle Heaton Potassium [Moles/Vol] 4.2 mmol/L Normal 3.4-5.0 [facility] Comment on above: Performed By: #### T 7, LIPA, TSH, AMADOU, CMP #### [facility] [address] [place] [address] Dr. Krystle Heaton Protein [Mass/Vol] 7.4 g/dL Normal 6.1-8.2 [facility] Comment on above: Performed By: #### T 7, LIPA, TSH, AMADOU, CMP #### [facility] [address] [place] [address] Dr. Krystle Heaton Sodium [Moles/Vol] 140 mmol/L Normal 137-145 [facility] Comment on above: Performed By: #### T 7, LIPA, TSH, AMADOU, CMP #### [facility] [address] [place] [address] Dr. Krystle Heaton Urea nitrogen [Mass/Vol] 12.0 mg/dL Normal 9.0-20.0 [facility] Comment on above: Performed By: #### T 7, LIPA, TSH, AMADOU, CMP #### [facility] [address] [place] [address] Dr. Krystle Heaton Urea nitrogen/Creatinine [Mass ratio] 9.4 mg/mg Normal [facility] Comment on above: Performed By: #### T 7, LIPA, TSH, AMADOU, CMP #### [facility] [address] [place], [place] [id number] Dr. Krystle Heaton PROTIMEon 12-09-2020 INR Coag (PPP) [Relative time] 0.96 {INR} Normal [facility] Comment on above: Performed By: #### H BSANS #### [facility] [address] [place] [address] Billy Devlin INR GUIDELINES SEE BELOW Normal [facility] Comment on above: Result Comment: MOUNA RED INR: 2.0 - 3.0 CONDITIONS NOT LISTED BELOW 2.5 - 3.5 FOR PROSTHETIC HEART VALVE REPLACEMENT 2.5 - 3.5 RECURRENT THROMBOSIS Performed By: #### H BSANS #### [facility] [address] [place] [address] Billy Devlin PT Coag (PPP) [Time] 10.5 s Normal 9.0-11.6 [facility] Comment on above: Performed By: #### H BSANS #### [facility] [address] [place], [place] [id number] Billy Devlin US SINGLE QUAD RT UPPERon [...] by: KRISTEN GODINEZ Date: 2020-12-09 10:23 Normal [facility] Vital Signs Date Time Vital Sign Value Performing Clinician Amy ling 07-14-2024 09:54-0400 Body height 177.8 cm Vivienne Velázquez MD Work Phone: [facility] 07-14-2024 09:54-0400 Body mass index (BMI) [Ratio] 27.26 kg/m2 Vivienne Velázquez MD Work Phone: [facility] 07-14-2024 09:54-0400 Body weight 86.18 kg Vivienne Velázquez MD Work Phone: [facility] 07-14-2024 09:54-0400 Diastolic blood pressure 64 mm[Hg] Vivienne Velázquez MD Work Phone: [facility] 07-14-2024 09:54-0400 Systolic blood pressure 104 mm[Hg] Vivienne Velázquez MD Work Phone: [facility] Encounters Encounter Date Encounter Type Care Provider Facility Start: 12-28-2024 End: 12-28-2024 ambulatory None Provider Facility:[facility] Start: 07-14-2024 End: 07-14-2024 Bamboo flowsheet Vivienne [...] Start: 04-03-2022 End: 04-03-2022 ambulatory Magaly Sewell Facility:[facility] Start: 11-26-2021 End: 11-27-[address] GENEVIEVE TONG Facility:[facility] Start: 11-15-2021 End: 11-15-[address] GENEVIEVE TONG Facility:[facility] Start: 10-08-2021 End: 10-09-[address] AMADOU BROWN Facility:[facility] Start: 09-10-2021 End: 09-11-[address] AMADOU BROWN Facility:[facility] Start: 08-15-2021 End: 08-16-[address] AMADOU BROWN Facility:[facility] Start: 08-13-2021 Encounter for preprocedural laboratory examination DR DOCTOR PALUMBO [facility] Start: 08-10-2021 AUDIT No PCP None [facility] [...] ne w 45 minutes No PCP None [facility] [facility] Work Phone: Start: 04-06-2021 End: 04-07-2021 ambulatory [...] finding No PCP None [facility] [facility] Work Phone: Procedures Date Procedure Procedure Detail Performing Clinician Biopsy of liver No PCP None Repair of musculoten dinous cuff of shoulder No PCP None Plan of Treatment Date Care Activity Detail Author Start: 08-04-2024 End: 08-04-2024 Patient encounter procedure 08/04/2024 2:30 PM EDT Office Visit [facility] [address] [facility] [address] [place] [id number] Vivienne Velázquez MD [address] [facility] [address] [place] [address] [facility] Start: 07-28-2024 End: 07-28-2024 Patient encounter procedure 07/28/2024 10:30 AM EDT Office Visit [facility] [address] [place] [address] Vivienne Velázquez MD [address] [place] [address] [facility] Start: 07-14-2024 End: 07-14-2024 Patient encounter procedure 07/14/2024 9:50 AM EDT Office Visit [facility] [address] [place] [address] Vivienne Velázquez MD [address] [place] [address] Arrived [facility] Comment on above: Arrived Start: 07-11-2024 Influenza vaccination Influenza Vacc ine (#1) [facility] Start: 1970 Screening for malign ant neoplasm of colon [facility] Immunizations Immunization Date Immunization Notes Care Provider [facility] 09-03-2023 influenza virus vacc ine, unspecified formulation Vivienne Velázquez MD Work Phone: [facility] Payers Date Payer Category Payer Medicare [id number] 2023 Unknown 2023 Unknown [id number] 1970 Unknown [id number] 2.16.84 0.1.410805.3.579.2.593 1970 Unknown [id number] .16.84 0.1.977413.3.579.2.593 1969 Unknown [id number] .16.84 0.1.055492.3.579.2.59 1969 Unknown [id number] 2.16.84 0.1.023552.3.579.2.593 1969 Unknown [id number] 2.16.84 0.1.208004.3.579.2.593 1969 Unknown [id number] 2.16.84 0.1.838314.3.579.2.593 1969 Unknown [id number] 2.16.84 0.1.249993.3.579.2.593 1969 Unknown [id number] 2.16.84 0.1.544703.3.579.2.593 1969 Unknown [id number] 2.16.84 0.1.853866.3.579.2.593 1969 Unknown [id number] 2.16.84 0.1.215402.3.579.2.593 1969 Unknown [id number] 2.16.84 0.1.324940.3.579.2.593 1969 Unknown [id number] .16.84 0.1.551439.3.579.2.593 1969 Unknown [id number] 2.16.84 0.1.505170.3.579.2.593 1969 Unknown [id number] 2.16.84 0.1.254659.3.579.2.593 1969 Unknown [id number] 2.16.84 0.1.546734.3.579.2.593 1969 Unknown [id number] 2.16.84 0.1.227048.3.579.2.593 1969 Unknown [id number] 2.16.84 0.1.875048.3.579.2.593 1969 Unknown [id number] 2.16.84 0.1.344879.3.579.2.593 1969 Unknown [id number] 2.16.84 0.1.277320.3.579.2.593 1969 Unknown [id number] 2.16.84 0.1.920567.3.579.2.593 1969 Unknown [id number] 2.16.84 0.1.395898.3.579.2.593 1969 Unknown [id number] 2.16.84 0.1.793754.3.579.2.593 1969 Unknown [id number] 2.16.84 0.1.129637.3.579.2.1259 1969 Unknown [id number] 2.16.84 0.1.787039.3.579.2.1259 1969 Unknown [id number] 2.16.84 0.1.278886.3.579.2.1259 1969 Unknown [id number] 2.16.8 40.1.480108.3.579.2.718 1959 Self-pay [id number] Self-pay 1959 Unknown [id number] Unknown [id number] 2.16.84 0.1.328218.3.579.2.593 Unknown [id number] 2.16.84 0.1.396918.3.579.2.593 Unknown [id number] 2.16.8 40.1.237237.3.579.2.531 Social History Date Type Detail Facility Start: 05-26-2024 End: 07-14-2024 Former smoker Former smoker [facility] [place] [address] [facility] Work Phone: Start: 1970 Sex Assigned At Male F [facility] Start: 05-26-2024 Tobacco smoking stat [facility] Ex-smoker [facility] Work Phone: History [...] if sx persist documented in this encounter [facility] Clinical Note 07-31-2021 Note Date & Type [...] report Procedure performed by: Sandy Roland MD Hardware Press Operator(s): Dee Lopes Md Estimated Blood Loss [...] grossly normal anatomy Procedure performed by: me Hardware Press Operator(s): none Estimated Blood Loss (mL): none [...] Last Updated: 08-May-2021 11:58 by Uri Bacon) [facility] Evaluation note Note Date & Type Note Facility Evaluation note [facility] Work Phone: Evaluation note Note Date & [...] no lower extremity edema.Symptom History:Modifying Factors:Associated Symptoms: OP-Rrgchnzmdwtwzpxp-Xkcbzt [facility] [address] [facility] Work Phone: Chief Complaint [...] section and content) DATE CREATED AUTHOR 04/14/2021 [employer] DATE CREATED AUTHOR AUTHOR'S ORGANIZ ATION 05/15/2021 [facility] DATE CREATED AUTHOR AUTHOR'S ORGANIZ ATION [facility]/29/2021 [facility] DATE CREATED AUTHOR AUTHOR'S ORGANIZ ATION 04/15/2022 [facility] DATE CREATED AUTHOR AUTHOR'S ORGANIZ ATION 01/28/[address] [facility] DATE CREATED AUTHOR AUTHOR'S ORGANIZ ATION 05/24/2023 [facility] DATE CREATED AUTHOR AUTHOR'S ORGANIZ ATION 07/15/2024 [facility] dical [facility] DATE CREATED AUTHOR AUTHOR'S ORGANIZ ATION 01/01/2025 [facility] Goals (unrecognized section and content) Goals may be documented in a n alternate section Care Teams (unrecognized sec tion and content) Pharmacy Services Representative Relationship Specialty Start Date End Date Genevieve Tong MD [address] [place] [address] PCP - General Family Medicine 05/24/24 Pharmacy Services Representative Relationship Specialty Start Date End Date Genevieve Tong MD [address] [place] [phone] PCP - General Family Medicine 05/24/24 Pharmacy Services Representative Relationship Specialty Start Date End Date Genevieve Tong MD [address] [place] [phone] PCP - General Family Medicine 05/24/24 Reason [...] BE BASED ON THE PRIMARY CLINICAL RECORDS. [facility] [employer] [facility] provides no warranty or guarantee of the accuracy or completeness of information in this document.
[2025-01-11 20:08] LABS: Summary Report (Summary) FINAL (.)
== END 2025-01-07 06:32 | disposition home or self-care (01) ==
LOC: LAB 06:31
PROVIDERS: PCP Family Medicine; Visit Provider Family Medicine
DX: Z79.899 Other long term (current) drug therapy (principal)
CPT/HCPCS: 80326; 80331; 80334; 80337; 80338; 80341; 80344; 80347; 80348; 80353; 80354; 80355; 80357; 80358; 80359; 80360; 80361; 80364; 80365; 80366; 80367; 80368; 80370; 80371; 80372; 80373; 80377; 82570; 83992

== ENCOUNTER 2025-01-21 10:17 | Outpatient (OUT) | payer MEDICARE, SELFPAY ==
--- NOTE | 2025-01-21 10:26 | XR_ITS ---
The [address] [address] Patient Name: ANGIE FRITZ MRN: [id number] date: 1970 Sex: M Assigned Patient Location: [facility] Current Patient Location: [facility] Accession/Order Number: [id number] Exam Date: 01/21/2025 11:58 Report Date: 01/21/2025 12:01 At the request of: GENEVIEVE ARREOLA MD Procedure: XR hip LT 2V w/ pelvis LEFT HIP WITH AP PELVIS - 3 views COMPARISON: CT 09/01/2024 CLINICAL DATA: Left hip pain for the past 5 days after getting out of a car. AP view of the pelvis as well as AP and frog-lateral views of the left hip were obtained. No fracture or dislocation is identified. There is slight narrowing of the superior hip joint spaces. Minor marginal spurring is seen. The SI joints are intact. No soft tissue abnormalities are present. XR/XR hip LT 2V w/ pelvis IMPRESSION: MINIMAL DEGENERATIVE CHANGE. NO ACUTE BONY FINDINGS. Impression dictated by: Quita Madrid M.D.01/21/2025 12:01 PM Dictation Location: [place] [address] Electronically authenticated by: [id number] Y Date: 01/21/2025 12:01
--- OUTSIDE RECORDS SUMMARY | 2025-01-21 10:40 | XMS_ITS | CCD ---
Author Organization [facility] Care Team Providers Care Occupational Therapy Director Name Role Phone None, No PCP Unavailable [...] Unavailable Policaro, Kristen Consulting Unavailable MAXWELL, DR VALLEOJ Admitting Unavailable MAXWELL, DR VALLEJO Attending Unavailable [...] MAXWELL, DR VALLEJO Consulting Unavailable MAXWELL, DR VLALEJO Admitting Unavailable MAXWELL, DR VALLEJO Attending Unavailable [...] Unavailable Genevieve Tong MD Primary Care Provider [phone] Provider, None Primary Care Unavailable Gideon Mace V. Attending Unavailable Gideon Mace V. Admitting Unavailable Allergies Allergy Classification Reported Allergen(s) Allergy Type Date of Onset Reaction(s) Facility (2 sources) Morphine Drug Allergy 2 Swelling of the Eye [facility] Repository (1 source) Morphine Drug Allergy 2 [facility] Repository (4 sources) Morphine Drug Allergy 2 [facility] Healthcare Medications Current Medications Medication Drug [...] Range Facility Outside Recordson 12-28-2024 Outside Records [id number][facility] Report on 12-28-2024 Rad - Other Radiology Report [id number][facility] Report [id number]#1.[facility] In [facility] Testingon 01-29-20 23 In office Testing [id number]:127 Normal [facility] AMYLASEon 11-26-2021 Amylase [Catalytic activity/Vol] 53 U/L Normal 31-110 [facility] Comment on above: Performed By: #### T 7, LIPA, TSH, AMADOU, CMP #### [facility] [address] [place] [address] Dr. Krystle Heaton CBC AUTO DIFFon 11-26-2021 BASO # 0.0 103/ul Normal 0.0-0.1 [facility] Comment on above: Performed By: #### F ERR #### [facility] [address] [place] [address] Dr. Krystle Heaton Basophils/100 WBC (Bld) 0.6 % Normal 0.2-2.0 [facility] Comment on above: Performed By: #### F ERR #### [facility] [address] [place] [address] Dr. Krystle Heaton EO # 0.1 103/ul Normal 0.0-0.7 [facility] Comment on above: Performed By: #### F ERR #### [facility] [address] [place] [address] Dr. Krystle Heaton Eosinophils/100 WBC (Bld) 2.7 % Normal 0.9-7.0 [facility] Comment on above: Performed By: #### F ERR #### [facility] [address] [place] [address] Dr. Krystle Heaton Erythrocyte distribution width (RBC) [Ratio] 16.0 % Critically high 11.0-15.0 [facility] Comment on above: Performed By: #### F ERR #### [facility] [address] [place] [address] Dr. Krystle Heaton Hematocrit (Bld) [Volume fraction] 42.8 % Normal 42.0-54.0 [facility] Comment on above: Performed By: #### F ERR #### [facility] [address] [place] [address] Dr. Krystle Heaton Hemoglobin (Bld) [Mass/Vol] 13.0 g/dL Critically low 14.0-18.0 [facility] Comment on above: Performed By: #### F ERR #### [facility] [address] [place] [address] Dr. Krystle Heaton IG # 0.02 10e3/ul Normal 0.00-0.03 [facility] Comment on above: Performed By: #### F ERR #### [facility] [address] [place] [address] Dr. Krystle Heaton IG % 0.4 % Normal 0.0-0.5 [facility] Comment on above: Performed By: #### F ERR #### [facility] [address] [place] [address] Dr. Krystle Heaton LYMPH # 0.9 103/ul Critically low 1.2-3.8 [facility] Comment on above: Performed By: #### F ERR #### [facility] [address] [place] [address] Dr. Krystle Heaton Lymphocytes/100 WBC (Bld) 19.1 % Critically low 20.5-60.0 [facility] Comment on above: Performed By: #### F ERR #### [facility] [address] [place] [address] Dr. Krystle Heaton MANUAL DIFF REQ NO Normal [facility] Comment on above: Performed By: #### F ERR #### [facility] [address] [place] [address] Dr. Krystle Heaton MCH (RBC) [Entitic mass] 27.7 pg Normal 25.9-34.0 [facility] Comment on above: Performed By: #### F ERR #### [facility] [address] [place] [address] Dr. Krystle Heaton MCHC (RBC) [Mass/Vol] 30.4 g/dL Normal 29.9-35.2 [facility] Comment on above: Performed By: #### F ERR #### [facility] [address] [place] [address] Dr. Krystle Heaton MCV (RBC) [Entitic vol] 91.1 fL Normal 80.0-94.0 [facility] Comment on above: Performed By: #### F ERR #### [facility] [address] [place] [address] Dr. Krystle Heaton MONO # 0.5 103/ul Normal 0.3-0.8 [facility] Comment on above: Performed By: #### F ERR #### [facility] [address] [place] [address] Dr. Krystle Heaton Monocytes/100 WBC (Bld) 10.4 % Normal 1.7-12.0 [facility] Comment on above: Performed By: #### F ERR #### [facility] [address] [place] [address] Dr. Krystle Heaton NEUT # 3.2 103/ul Normal 1.4-6.5 [facility] Comment on above: Performed By: #### F ERR #### [facility] [address] [place] [address] Dr. Krystle Heaton Neutrophils/100 WBC (Bld) 66.8 % Normal 43.0-75.0 [facility] Comment on above: Performed By: #### F ERR #### [facility] [address] [place] [address] Dr. Krystle Heaton Platelet mean volume (Bld) [Entitic vol] 11.3 fL Normal 9.5-13.5 [facility] Comment on above: Performed By: #### F ERR #### [facility] [address] [place] [address] Dr. Krystle Heaton PLT 177 103/ul Normal 150-450 [facility] Comment on above: Performed By: #### F ERR #### [facility] [address] [place] [address] Dr. Krystle Heaton RBC 4.70 106/ul Normal 4.70-6.10 [facility] Comment on above: Performed By: #### F ERR #### [facility] [address] [place] [address] Dr. Krystle Heaton WBC 4.8 103/ul Normal 4.0-11.0 [facility] Comment on above: Performed By: #### F ERR #### [facility] [address] [place] [address] Dr. Krystle Heaton FERRITINon 11-26-2021 Ferritin [Mass/Vol] 63.0 ng/mL Normal 17.9-464.0 [facility] Comment on above: Performed By: #### C BC #### [facility] [address] [place] [address] Billy Deanen FREE THYROXINE INDEX T7on FTI 2.14 Normal [facility] Comment on above: Performed By: #### T 7, LIPA, TSH, AMADOU, CMP #### [facility] [address] [place] [address] Dr. Krystle Heaton T3U 34.0 % Normal 23.5-40.5 [facility] Comment on above: Performed By: #### T 7, LIPA, TSH, AMADOU, CMP #### [facility] [address] [place] [address] Dr. Krystle Heaton T4 [Mass/Vol] 6.30 ug/dL Normal 5.53-11.00 [facility] Comment on above: Performed By: #### T 7, LIPA, TSH, AMADOU, CMP #### [facility] [address] [place] [address] Dr. Krystle Heaton LIPASEon 11-26-2021 Lipase [Catalytic activity/Vol] 115.0 U/L Normal 23.0-300.0 [facility] Comment on above: Performed By: #### T 7, LIPA, TSH, AMADOU, CMP #### [facility] [address] [place] [address] Dr. Krystle Heaton PROF 14(COMP METB)on 022 Albumin [Mass/Vol] 3.6 g/dL Normal 3.5-5.0 [facility] Comment on above: Performed By: #### T 7, LIPA, TSH, AMADOU, CMP #### [facility] [address] [place] [address] Dr. Krystle Heaton Albumin/Globulin [Mass ratio] 0.9 {ratio} Normal [facility] Comment on above: Performed By: #### T 7, LIPA, TSH, AMADOU, CMP #### [facility] [address] [place] [address] Dr. Krystle Heaton ALP [Catalytic activity/Vol] 94 U/L Normal 38-126 [facility] Comment on above: Performed By: #### T 7, LIPA, TSH, AMADOU, CMP #### [facility] [address] [place] [address] Dr. Krystle Heaton ALT [Catalytic activity/Vol] 103 U/L Critically high 21-72 [facility] Comment on above: Performed By: #### T 7, LIPA, TSH, AMADOU, CMP #### [facility] [address] [place] [address] Dr. Krystle Heaton Anion gap [Moles/Vol] 12.8 mmol/L Normal [facility] Comment on above: Performed By: #### T 7, LIPA, TSH, AMADOU, CMP #### [facility] [address] [place] [address] Dr. Krystle Heaton AST [Catalytic activity/Vol] 148 U/L Critically high 17-59 [facility] Comment on above: Performed By: #### T 7, LIPA, TSH, AMADOU, CMP #### [facility] [address] [place] [address] Dr. Krystle Heaton Bilirubin [Mass/Vol] 1.2 mg/dL Normal 0.2-1.3 [facility] Comment on above: Performed By: #### T 7, LIPA, TSH, AMADOU, CMP #### [facility] [address] [place] [address] Dr. Krystle Heaton Calcium [Mass/Vol] 9.1 mg/dL Normal 8.4-10.2 [facility] Comment on above: Performed By: #### T 7, LIPA, TSH, AMADOU, CMP #### [facility] [address] [place] [address] Dr. Krystle Heaton Chloride [Moles/Vol] 100 mmol/L Normal 98-107 [facility] Comment on above: Performed By: #### T 7, LIPA, TSH, AMADOU, CMP #### [facility] [address] [place] [address] Dr. Krystle Heaton CO2 [Moles/Vol] 26.7 mmol/L Normal 22.0-30.0 [facility] Comment on above: Performed By: #### T 7, LIPA, TSH, AMADOU, CMP #### [facility] [address] [place] [address] Dr. Krystle eHaton Creatinine [Mass/Vol] 0.94 mg/dL Normal 0.66-1.25 [facility] Comment on above: Performed By: #### T 7, LIPA, TSH, AMADOU, CMP #### [facility] [address] [place] [address] Dr. Krystle Heaton EGFR-AF ANDORRAN >60 Normal >=60 [facility] Comment on above: Performed By: #### T 7, LIPA, TSH, AMADOU, CMP #### [facility] [address] [place] [address] Dr. Krystle Heaton EGFR-NON AF ANDORRAN >60 Normal >=60 [facility] Comment on above: Performed By: #### T 7, LIPA, TSH, AMADOU, CMP #### [facility] [address] [place] [address] Dr. Krystle Heaton Globulin (S) [Mass/Vol] 4.0 g/dL Normal [facility] Comment on above: Performed By: #### T 7, LIPA, TSH, AMADOU, CMP #### [facility] [address] [address] [address] Krystle Heaton Glucose [Mass/Vol] 112 mg/dL Critically high 74-106 [facility] Comment on above: Performed By: #### T 7, LIPA, TSH, AMADOU, CMP #### [facility] [address] [place] [address] Dr. Krystle Heaton Potassium [Moles/Vol] 4.5 mmol/L Normal 3.4-5.0 [facility] Comment on above: Performed By: #### T 7, LIPA, TSH, AMADOU, CMP #### [facility] [address] [place] [address] Dr. Krystle Heaton Protein [Mass/Vol] 7.6 g/dL Normal 6.1-8.2 [facility] Comment on above: Performed By: #### T 7, LIPA, TSH, AMADOU, CMP #### [facility] [address] [place] [address] Dr. Krystle Heaton Sodium [Moles/Vol] 135 mmol/L Critically low 137-145 [facility] Comment on above: Performed By: #### T 7, LIPA, TSH, AMADOU, CMP #### [facility] [address] [place] [address] Dr. Krystle Heaton Urea nitrogen [Mass/Vol] 5.0 mg/dL Critically low 9.0-20.0 [facility] Comment on above: Performed By: #### T 7, LIPA, TSH, AMADOU, CMP #### [facility] [address] [place] [address] Dr. Krystle Heaton Urea nitrogen/Creatinine [Mass ratio] 5.3 mg/mg Normal [facility] Comment on above: Performed By: #### T 7, LIPA, TSH, AMADOU, CMP #### [facility] [address] [place] [address] Dr. Krystle Heaton TSHon 11-26-2021 TSH 1.842 uIU/mL Normal 0.470-4.680 [facility] Comment on above: Performed By: #### T 7, LIPA, TSH, AMADOU, CMP #### [facility] [address] [place] [address] Dr. Krystle Heaton TSH RANGE SEE BELOW Normal [facility] Comment on above: Result Comment: <0.3 4 UIU/ml HYPERTHYROID 0.34-5.60 UIU/ml EUTHYROID >5.60 UIU/ml HYPOTHYROID Performed By: #### T 7, LIPA, TSH, AMADOU, CMP #### [facility] [address] [address] [address] Krystle Heaton Covid-19 PCR ([facility])on SARS-CoV-2 (COVID-19) RNA JIMBO+probe Ql (Unsp spec) Not detected Normal NOT DETECTED [facility] Comment on above: Result Comment: This test is not yet approved or cleared by the [place] FDA. When there are no FDA-approved or cleared tests available, and other criteria are met, FDA can make tests available under an emergency access mechanism called an Emergency Use Authorization (EUA). The EUA for this test is supported by the [place] of Health and Human Service's (HHS's) declaration [...] SARS-CoV-2. Performed By: #### F ERR #### [facility] [address] [place] [address] Dr. Krystle Heaton CBC AUTO DIFFon 10-08-2021 BASO # 0.0 103/ul Normal 0.0-0.1 [facility] Comment on above: Performed By: #### T 7, LIPA, TSH, AMADOU, CMP #### [facility] [address] [place] [address] Dr. Krystle Heaton Basophils/100 WBC (Bld) 0.7 % Normal 0.2-2.0 [facility] Comment on above: Performed By: #### T 7, LIPA, TSH, AMADOU, CMP #### [facility] [address] [place] [address] Dr. Krystle Heaton EO # 0.2 103/ul Normal 0.0-0.7 [facility] Comment on above: Performed By: #### T 7, LIPA, TSH, AMADOU, CMP #### [facility] [address] [place] [address] Dr. Krystle Heaton Eosinophils/100 WBC (Bld) 3.6 % Normal 0.9-7.0 [facility] Comment on above: Performed By: #### T 7, LIPA, TSH, AMADOU, CMP #### [facility] [address] [place] [address] Dr. Krystle Heaton Erythrocyte distribution width (RBC) [Ratio] 16.0 % Critically high 11.0-15.0 [facility] Comment on above: Performed By: #### T 7, LIPA, TSH, AMADOU, CMP #### [facility] [address] [place] [address] Dr. Krystle Heaton Hematocrit (Bld) [Volume fraction] 38.7 % Critically low 42.0-54.0 [facility] Comment on above: Performed By: #### T 7, LIPA, TSH, AMADOU, CMP #### [facility] [address] [place] [address] Dr. Krystle Heaton Hemoglobin (Bld) [Mass/Vol] 11.7 g/dL Critically low 14.0-18.0 [facility] Comment on above: Performed By: #### T 7, LIPA, TSH, AMADOU, CMP #### [facility] [address] [place] [address] Dr. Krystle Heaton IG # 0.01 10e3/ul Normal 0.00-0.03 [facility] Comment on above: Performed By: #### T 7, LIPA, TSH, AMADOU, CMP #### [facility] [address] [place] [address] Dr. Krystle Heaton IG % 0.2 % Normal 0.0-0.5 [facility] Comment on above: Performed By: #### T 7, LIPA, TSH, AMADOU, CMP #### [facility] [address] [place] [address] Dr. Krystle Heaton LYMPH # 1.6 103/ul Normal 1.2-3.8 [facility] Comment on above: Performed By: #### T 7, LIPA, TSH, AMADOU, CMP #### [facility] [address] [place] [address] Dr. Krystle Heaton Lymphocytes/100 WBC (Bld) 29.2 % Normal 20.5-60.0 [facility] Comment on above: Performed By: #### T 7, LIPA, TSH, AMADOU, CMP #### [facility] [address] [place] [address] Dr. Krystle Heaton MANUAL DIFF REQ NO Normal [facility] Comment on above: Performed By: #### T 7, LIPA, TSH, AMADOU, CMP #### [facility] [address] [place] [address] Dr. Krystle Heaton MCH (RBC) [Entitic mass] 27.7 pg Normal 25.9-34.0 [facility] Comment on above: Performed By: #### T 7, LIPA, TSH, AMADOU, CMP #### [facility] [address] [place] [address] Dr. Krystle Heaton MCHC (RBC) [Mass/Vol] 30.2 g/dL Normal 29.9-35.2 [facility] Comment on above: Performed By: #### T 7, LIPA, TSH, AMADOU, CMP #### [facility] [address] [place] [address] Dr. Krystle Heaton MCV (RBC) [Entitic vol] 91.5 fL Normal 80.0-94.0 [facility] Comment on above: Performed By: #### T 7, LIPA, TSH, AMADOU, CMP #### [facility] [address] [place] [address] Dr. Krystle Heaton MONO # 0.6 103/ul Normal 0.3-0.8 [facility] Comment on above: Performed By: #### T 7, LIPA, TSH, AMADOU, CMP #### [facility] [address] [place] [address] Dr. Krystle Heaton Monocytes/100 WBC (Bld) 10.5 % Normal 1.7-12.0 [facility] Comment on above: Performed By: #### T 7, LIPA, TSH, AMADOU, CMP #### [facility] [address] [place] [address] Dr. Krystle Heaton NEUT # 3.1 103/ul Normal 1.4-6.5 [facility] Comment on above: Performed By: #### T 7, LIPA, TSH, AMADOU, CMP #### [facility] [address] [place] [address] Dr. Krystle Heaton Neutrophils/100 WBC (Bld) 55.8 % Normal 43.0-75.0 [facility] Comment on above: Performed By: #### T 7, LIPA, TSH, AMADOU, CMP #### [facility] [address] [place] [address] Dr. Krystle Heaton Platelet mean volume (Bld) [Entitic vol] 10.9 fL Normal 9.5-13.5 [facility] Comment on above: Performed By: #### T 7, LIPA, TSH, AMADOU, CMP #### [facility] [address] [place] [address] Dr. Krystle Heaton PLT 214 103/ul Normal 150-450 [facility] Comment on above: Performed By: #### T 7, LIPA, TSH, AMADOU, CMP #### [facility] [address] [place] [address] Dr. Krystle Heaton RBC 4.23 106/ul Critically low 4.70-6.10 [facility] Comment on above: Performed By: #### T 7, LIPA, TSH, AMADOU, CMP #### [facility] [address] [place] [address] Dr. Krystle Heaton WBC 5.5 103/ul Normal 4.0-11.0 [facility] Comment on above: Performed By: #### T 7, LIPA, TSH, AMADOU, CMP #### [facility] [address] [place] [address] Dr. Krystle Heaton FERRITINon 10-08-2021 Ferritin [Mass/Vol] 59.0 ng/mL Normal 17.9-464.0 [facility] Comment on above: Performed By: #### T 7, LIPA, TSH, AMADOU, CMP #### [facility] [address] [place] [address] Dr. Krystle Heaton CBC AUTO DIFFon 09-10-2021 BASO # 0.0 103/ul Normal 0.0-0.1 [facility] Comment on above: Performed By: #### C BC #### [facility] [address] [place] [address] Billy Quita Basophils/100 WBC (Bld) 0.8 % Normal 0.2-2.0 [facility] Comment on above: Performed By: #### C BC #### [facility] [address] [place] [address] Billy Quita EO # 0.1 103/ul Normal 0.0-0.7 [facility] Comment on above: Performed By: #### C BC #### [facility] [address] [place] [address] Billy Quita Eosinophils/100 WBC (Bld) 3.5 % Normal 0.9-7.0 [facility] Comment on above: Performed By: #### C BC #### [facility] [address] [place] [address] Billy Quita Erythrocyte distribution width (RBC) [Ratio] 16.7 % Critically high 11.0-15.0 [facility] Comment on above: Performed By: #### C BC #### [facility] [address] [place] [address] Billy Quita Hematocrit (Bld) [Volume fraction] 40.6 % Critically low 42.0-54.0 [facility] Comment on above: Performed By: #### C BC #### [facility] [address] [id number] Billy Quita Hemoglobin (Bld) [Mass/Vol] 12.4 g/dL Critically low 14.0-18.0 [facility] Comment on above: Performed By: #### C BC #### [facility] [address] [id number] Billy Quita IG # 0.01 10e3/ul Normal 0.00-0.03 [facility] Comment on above: Performed By: #### C BC #### [facility] [address] [place], [place] [id number] Billy Quita IG % 0.3 % Normal 0.0-0.5 [facility] Comment on above: Performed By: #### C BC #### [facility] [address] [place] [address] Billy Quita LYMPH # 1.5 103/ul Normal 1.2-3.8 [facility] Comment on above: Performed By: #### C BC #### [facility] [address] [place] [address] Billy Quita Lymphocytes/100 WBC (Bld) 39.7 % Normal 20.5-60.0 [facility] Comment on above: Performed By: #### C BC #### [facility] [address] [place], [place] [id number] Blilycarrillo Devlin MANUAL DIFF REQ NO Normal [facility] Comment on above: Performed By: #### C BC #### [facility] [address] [place], [place] [id number] Billy Quita MCH (RBC) [Entitic mass] 27.6 pg Normal 25.9-34.0 [facility] Comment on above: Performed By: #### C BC #### [facility] [address] [place], [place] [id number] Billy Quita MCHC (RBC) [Mass/Vol] 30.5 g/dL Normal 29.9-35.2 [facility] Comment on above: Performed By: #### C BC #### [facility] [address] [place], [place] [address] Billy Quita MCV (RBC) [Entitic vol] 90.2 fL Normal 80.0-94.0 [facility] Comment on above: Performed By: #### C BC #### [facility] [address] [place], [place] [address] Billycarrillo Deanen MONO # 0.5 103/ul Normal 0.3-0.8 [facility] Comment on above: Performed By: #### C BC #### [facility] [address] [id number] Billy Quita Monocytes/100 WBC (Bld) 13.3 % Critically high 1.7-12.0 [facility] Comment on above: Performed By: #### C BC #### [facility] [address] [phone] Billy Quita NEUT # 1.6 103/ul Normal 1.4-6.5 [facility] Comment on above: Performed By: #### C BC #### [facility] [address] [phone] Billycarrillo Deanen Neutrophils/100 WBC (Bld) 42.4 % Critically low 43.0-75.0 [facility] Comment on above: Performed By: #### C BC #### [facility] [address] [phone] Billycarrillo Devlin Platelet mean volume (Bld) [Entitic vol] 11.5 fL Normal 9.5-13.5 [facility] Comment on above: Performed By: #### C BC #### [facility] [address] [place], [place] [address] Billy Quita PLT 136 103/ul Critically low 150-450 [facility] Comment on above: Performed By: #### C BC #### [facility] [address] [place], [place] [address] Billy Quita RBC 4.50 106/ul Critically low 4.70-6.10 [facility] Comment on above: Performed By: #### C BC #### [facility] [address] [phone] Billy Quita WBC 3.7 103/ul Critically low 4.0-11.0 [facility] Comment on above: Performed By: #### C BC #### [facility] [address] [place] [address] Billy Devlin FERRITINon 09-10-2021 Ferritin [Mass/Vol] 106.0 ng/mL Normal 17.9-464.0 [facility] Comment on above: Performed By: #### F ERR #### [facility] [address] [place] [address] Dr. Krystle Heaton CBC AUTO DIFFon 08-15-2021 BASO # 0.0 103/ul Normal 0.0-0.1 [facility] Comment on above: Performed By: #### C BC #### [facility] [address] [place] [address] Dr. Krystle Heaton Basophils/100 WBC (Bld) 0.8 % Normal 0.2-2.0 [facility] Comment on above: Performed By: #### C BC #### [facility] [address] [place] [address] Dr. Krystle Heaton EO # 0.2 103/ul Normal 0.0-0.7 [facility] Comment on above: Performed By: #### C BC #### [facility] [address] [place] [address] Dr. Krystle Heaton Eosinophils/100 WBC (Bld) 4.4 % Normal 0.9-7.0 [facility] Comment on above: Performed By: #### C BC #### [facility] [address] [place] [address] Dr. Krystle Heaton Erythrocyte distribution width (RBC) [Ratio] 15.7 % Critically high 11.0-15.0 [facility] Comment on above: Performed By: #### C BC #### [facility] [address] [place] [address] Dr. Krystle Heaton Hematocrit (Bld) [Volume fraction] 39.4 % Critically low 42.0-54.0 [facility] Comment on above: Performed By: #### C BC #### [facility] [address] [place] [address] Dr. Krystle Heaton Hemoglobin (Bld) [Mass/Vol] 12.2 g/dL Critically low 14.0-18.0 [facility] Comment on above: Performed By: #### C BC #### [facility] [address] [place] [address] Dr. Krystle Heaton IG # 0.01 10e3/ul Normal 0.00-0.03 [facility] Comment on above: Performed By: #### C BC #### [facility] [address] [place] [address] Dr. Krystle Heaton IG % 0.2 % Normal 0.0-0.5 [facility] Comment on above: Performed By: #### C BC #### [facility] [address] [place] [address] Dr. Krystle Heaton LYMPH # 1.5 103/ul Normal 1.2-3.8 [facility] Comment on above: Performed By: #### C BC #### [facility] [address] [place] [address] Dr. Krystle Heaton Lymphocytes/100 WBC (Bld) 32.2 % Normal 20.5-60.0 [facility] Comment on above: Performed By: #### C BC #### [facility] [address] [place] [address] Dr. Krystle Heaton MANUAL DIFF REQ NO Normal [facility] Comment on above: Performed By: #### C BC #### [facility] [address] [place] [address] Dr. Krystle Heaton MCH (RBC) [Entitic mass] 27.4 pg Normal 25.9-34.0 [facility] Comment on above: Performed By: #### C BC #### [facility] [address] [place] [address] Dr. Krystle Heaton MCHC (RBC) [Mass/Vol] 31.0 g/dL Normal 29.9-35.2 [facility] Comment on above: Performed By: #### C BC #### [facility] [address] [place] [address] Dr. Krystle Heaton MCV (RBC) [Entitic vol] 88.5 fL Normal 80.0-94.0 [facility] Comment on above: Performed By: #### C BC #### [facility] [address] [place] [address] Dr. Krystle Heaton MONO # 0.6 103/ul Normal 0.3-0.8 [facility] Comment on above: Performed By: #### C BC #### [facility] [address] [place] [address] Dr. Krystle Heaton Monocytes/100 WBC (Bld) 11.7 % Normal 1.7-12.0 [facility] Comment on above: Performed By: #### C BC #### [facility] [address] [place] [address] Dr. Krystle Heaton NEUT # 2.4 103/ul Normal 1.4-6.5 [facility] Comment on above: Performed By: #### C BC #### [facility] [address] [place] [address] Dr. Krystle Heaton Neutrophils/100 WBC (Bld) 50.7 % Normal 43.0-75.0 [facility] Comment on above: Performed By: #### C BC #### [facility] [address] [place] [address] Dr. Krystle Heaton Platelet mean volume (Bld) [Entitic vol] 11.4 fL Normal 9.5-13.5 [facility] Comment on above: Performed By: #### C BC #### [facility] [address] [place] [address] Dr. Krystle Heaton PLT 169 103/ul Normal 150-450 [facility] Comment on above: Performed By: #### C BC #### [facility] [address] [place] [address] Dr. Krystle Heaton RBC 4.45 106/ul Critically low 4.70-6.10 [facility] Comment on above: Performed By: #### C BC #### [facility] [address] [place] [address] Dr. Krystle Heaton WBC 4.8 103/ul Normal 4.0-11.0 [facility] Comment on above: Performed By: #### C BC #### [facility] [address] [place], [place] [address] Dr. Krystle Heaton FERRITINon 08-15-2021 Ferritin [Mass/Vol] 103.0 ng/mL Normal 17.9-464.0 [facility] Comment on above: Performed By: #### T 7, LIPA, TSH, AMADOU, CMP #### [facility] [address] [place], [place] [address] Dr. Krystle Heaton No Panel Informationon 07-31 Name CHUY CHAPIN Pathologist: COLLETTE DOTSON MD Date of Procedure: 07/31/2021 Date Received: [address] Work Phone: Radiologyon 07-31-2021 US Guidance for fine needle aspiration of Liver Normal [facility] Work Phone: [facility] Surgical Pathology Depar tmenton 07-31-2021 [facility] Surgical Pathology Department Name CHUY [...] toto in 2 cassettes A1 and A2. [facility]/07/31/2021 The assays/tests were performed with appropriate positive and negative controls which stained appropriately. [facility] Department of Pathology [address] [place] [address] Normal [facility] Comment on above: Performed By: #### [facility] #### [facility] Surgical Pathology Department [address] [place] [address] US BIOPSY LIVER PERon 2020 US BIOPSY LIVER PER Patient Name: CHUY CHAPIN STUDY: US BIOPSY LIVER PER; 07/31/2021 1:03 pm PROCEDURE: ULTRASOUND GUIDED NON TARGETED RANDOM BIOPSY OF THE LIVER INDICATION: Hemochromatosis; here for tissue diagnosis COMPARISON: CT-guided liver biopsy 05/08/2021. ACCESSION NUMBER(S): [id number] ORDERING CLINICIAN: ENOCH HERRMANN LEVELER: Dr. Roland (attending) Dee Lopes MD MEDICATIONS: [...] as stated. This study was interpreted at [place], [place]. Electronically signed by: SANDY ROLAND MD [facility] CBC AUTO DIFFon 07-28-2021 BASO # 0.0 103/ul Normal 0.0-0.1 [facility] Comment on above: Performed By: #### T 7, LIPA, TSH, AMADOU, CMP #### [facility] [address] [place] [address] Dr. Krystle Heaton Basophils/100 WBC (Bld) 0.6 % Normal 0.2-2.0 [facility] Comment on above: Performed By: #### T 7, LIPA, TSH, AMADOU, CMP #### [facility] [address] [place] [address] Dr. Krystle Heaton EO # 0.2 103/ul Normal 0.0-0.7 [facility] Comment on above: Performed By: #### T 7, LIPA, TSH, AMADOU, CMP #### [facility] [address] [place] [address] Dr. Krystle Heaton Eosinophils/100 WBC (Bld) 3.6 % Normal 0.9-7.0 [facility] Comment on above: Performed By: #### T 7, LIPA, TSH, AMADOU, CMP #### [facility] [address] [place] [address] Dr. Krystle Heaton Erythrocyte distribution width (RBC) [Ratio] 14.7 % Normal 11.0-15.0 [facility] Comment on above: Performed By: #### T 7, LIPA, TSH, AMADOU, CMP #### [facility] [address] [place] [address] Dr. Krystle Heaton Hematocrit (Bld) [Volume fraction] 37.4 % Critically low 42.0-54.0 [facility] Comment on above: Performed By: #### T 7, LIPA, TSH, AMADOU, CMP #### [facility] [address] [place] [address] Dr. Krystle Heaton Hemoglobin (Bld) [Mass/Vol] 11.5 g/dL Critically low 14.0-18.0 [facility] Comment on above: Performed By: #### T 7, LIPA, TSH, AMADOU, CMP #### [facility] [address] [place] [address] Dr. Krystle Heaton IG # 0.02 10e3/ul Normal 0.00-0.03 [facility] Comment on above: Performed By: #### T 7, LIPA, TSH, AMADOU, CMP #### [facility] [address] [place] [address] Dr. Krystle Heaton IG % 0.4 % Normal 0.0-0.5 [facility] Comment on above: Performed By: #### T 7, LIPA, TSH, AMADOU, CMP #### [facility] [address] [place] [address] Dr. Krystle Heaton LYMPH # 1.5 103/ul Normal 1.2-3.8 [facility] Comment on above: Performed By: #### T 7, LIPA, TSH, AMADOU, CMP #### [facility] [address] [place] [address] Dr. Krystle Heaton Lymphocytes/100 WBC (Bld) 31.3 % Normal 20.5-60.0 [facility] Comment on above: Performed By: #### T 7, LIPA, TSH, AMADOU, CMP #### [facility] [address] [place] [address] Dr. Krystle Heaton MANUAL DIFF REQ NO Normal [facility] Comment on above: Performed By: #### T 7, LIPA, TSH, AMADOU, CMP #### [facility] [address] [place] [address] Dr. Krystle Heaton MCH (RBC) [Entitic mass] 27.8 pg Normal 25.9-34.0 [facility] Comment on above: Performed By: #### T 7, LIPA, TSH, AMADOU, CMP #### [facility] [address] [place] [address] Dr. Krystle Heaton MCHC (RBC) [Mass/Vol] 30.7 g/dL Normal 29.9-35.2 [facility] Comment on above: Performed By: #### T 7, LIPA, TSH, AMADOU, CMP #### [facility] [address] [place] [address] Dr. Krystle Heaton MCV (RBC) [Entitic vol] 90.6 fL Normal 80.0-94.0 [facility] Comment on above: Performed By: #### T 7, LIPA, TSH, AMADOU, CMP #### [facility] [address] [place] [address] Dr. Krystle Heaton MONO # 0.6 103/ul Normal 0.3-0.8 [facility] Comment on above: Performed By: #### T 7, LIPA, TSH, AMADOU, CMP #### [facility] [address] [place] [address] Dr. Krystle Heaton Monocytes/100 WBC (Bld) 12.8 % Critically high 1.7-12.0 [facility] Comment on above: Performed By: #### T 7, LIPA, TSH, AMADOU, CMP #### [facility] [address] [place] [address] Dr. Krystle Heaton NEUT # 2.4 103/ul Normal 1.4-6.5 [facility] Comment on above: Performed By: #### T 7, LIPA, TSH, AMADOU, CMP #### [facility] [address] [place] [address] Dr. Krystle Heaton Neutrophils/100 WBC (Bld) 51.3 % Normal 43.0-75.0 [facility] Comment on above: Performed By: #### T 7, LIPA, TSH, AMADOU, CMP #### [facility] [address] [place] [address] Dr. Krystle Heaton Platelet mean volume (Bld) [Entitic vol] 11.4 fL Normal 9.5-13.5 [facility] Comment on above: Performed By: #### T 7, LIPA, TSH, AMADOU, CMP #### [facility] [address] [place] [address] Dr. Krystle Heaton PLT 190 103/ul Normal 150-450 [facility] Comment on above: Performed By: #### T 7, LIPA, TSH, AMADOU, CMP #### [facility] [address] [place] [address] Dr. Krystle Heaton RBC 4.13 106/ul Critically low 4.70-6.10 [facility] Comment on above: Performed By: #### T 7, LIPA, TSH, AMADOU, CMP #### [facility] [address] [place] [address] Dr. Krystle Heaton WBC 4.7 103/ul Normal 4.0-11.0 [facility] Comment on above: Performed By: #### T 7, LIPA, TSH, AMADOU, CMP #### [facility] [address] [place] [address] Dr. Krystle Heaton PROTIMEon 07-28-2021 INR Coag (PPP) [Relative time] 1.00 {INR} Normal [facility] Comment on above: Performed By: #### H BSANS #### [facility] [address] [place] [address] Billy Devlin INR GUIDELINES SEE BELOW Normal [facility] Comment on above: Result Comment: MOUNA RED INR: 2.0 - 3.0 CONDITIONS NOT LISTED BELOW 2.5 - 3.5 FOR PROSTHETIC HEART VALVE REPLACEMENT 2.5 - 3.5 RECURRENT THROMBOSIS Performed By: #### H BSANS #### [facility] [address] [place] [address] Billy Devlin PT Coag (PPP) [Time] 10.8 s Normal 9.0-11.6 [facility] Comment on above: Performed By: #### H BSANS #### [facility] [address] [place] [address] Billy Devlin CBC AUTO DIFFon 07-09-2021 BASO # 0.0 103/ul Normal 0.0-0.1 [facility] Comment on above: Performed By: #### T 7, LIPA, TSH, AMADOU, CMP #### [facility] [address] [place] [address] Dr. Krystle Heaton Basophils/100 WBC (Bld) 0.4 % Normal 0.2-2.0 [facility] Comment on above: Performed By: #### T 7, LIPA, TSH, AMADOU, CMP #### [facility] [address] [place] [address] Dr. Krystle Heaton EO # 0.2 103/ul Normal 0.0-0.7 [facility] Comment on above: Performed By: #### T 7, LIPA, TSH, AMADOU, CMP #### [facility] [address] [place] [address] Dr. Krystle Heaton Eosinophils/100 WBC (Bld) 2.9 % Normal 0.9-7.0 [facility] Comment on above: Performed By: #### T 7, LIPA, TSH, AMADOU, CMP #### [facility] [address] [place] [address] Dr. Krystle Heaton Erythrocyte distribution width (RBC) [Ratio] 13.9 % Normal 11.0-15.0 [facility] Comment on above: Performed By: #### T 7, LIPA, TSH, AMADOU, CMP #### [facility] [address] [place] [address] Dr. Krystle Heaton Hematocrit (Bld) [Volume fraction] 40.4 % Critically low 42.0-54.0 [facility] Comment on above: Performed By: #### T 7, LIPA, TSH, AMADOU, CMP #### [facility] [address] [place] [address] Dr. Krystle Heaton Hemoglobin (Bld) [Mass/Vol] 12.3 g/dL Critically low 14.0-18.0 [facility] Comment on above: Performed By: #### T 7, LIPA, TSH, AMADOU, CMP #### [facility] [address] [place] [address] Dr. Krystle Heaton IG # 0.03 10e3/ul Normal 0.00-0.03 [facility] Comment on above: Performed By: #### T 7, LIPA, TSH, AMADOU, CMP #### [facility] [address] [place] [address] Dr. Krystle Heaton IG % 0.6 % Critically high 0.0-0.5 [facility] Comment on above: Performed By: #### T 7, LIPA, TSH, AMADOU, CMP #### [facility] [address] [place] [address] Dr. Krystle Heaton LYMPH # 1.5 103/ul Normal 1.2-3.8 [facility] Comment on above: Performed By: #### T 7, LIPA, TSH, AMADOU, CMP #### [facility] [address] [place] [address] Dr. Krystle Heaton Lymphocytes/100 WBC (Bld) 28.3 % Normal 20.5-60.0 [facility] Comment on above: Performed By: #### T 7, LIPA, TSH, AMADOU, CMP #### [facility] [address] [place] [address] Dr. Krystle Heaton MANUAL DIFF REQ NO Normal [facility] Comment on above: Performed By: #### T 7, LIPA, TSH, AMADOU, CMP #### [facility] [address] [place] [address] Dr. Krystle Heaton MCH (RBC) [Entitic mass] 28.3 pg Normal 25.9-34.0 [facility] Comment on above: Performed By: #### T 7, LIPA, TSH, AMADOU, CMP #### [facility] [address] [place] [address] Dr. Krystle Heaton MCHC (RBC) [Mass/Vol] 30.4 g/dL Normal 29.9-35.2 [facility] Comment on above: Performed By: #### T 7, LIPA, TSH, AMADOU, CMP #### [facility] [address] [place] [address] Dr. Krystle Heaton MCV (RBC) [Entitic vol] 93.1 fL Normal 80.0-94.0 [facility] Comment on above: Performed By: #### T 7, LIPA, TSH, AMADOU, CMP #### [facility] [address] [place] [address] Dr. Krystle Heaton MONO # 0.7 103/ul Normal 0.3-0.8 [facility] Comment on above: Performed By: #### T 7, LIPA, TSH, AMADOU, CMP #### [facility] [address] [place] [address] Dr. Krystle Heaton Monocytes/100 WBC (Bld) 13.4 % Critically high 1.7-12.0 [facility] Comment on above: Performed By: #### T 7, LIPA, TSH, AMADOU, CMP #### [facility] [address] [place] [address] Dr. Krystle Heaton NEUT # 2.8 103/ul Normal 1.4-6.5 [facility] Comment on above: Performed By: #### T 7, LIPA, TSH, AMADOU, CMP #### [facility] [address] [place] [address] Dr. Krystle Heaton Neutrophils/100 WBC (Bld) 54.4 % Normal 43.0-75.0 [facility] Comment on above: Performed By: #### T 7, LIPA, TSH, AMADOU, CMP #### [facility] [address] [place] [address] Dr. Krystle Heaton Platelet mean volume (Bld) [Entitic vol] 11.7 fL Normal 9.5-13.5 [facility] Comment on above: Performed By: #### T 7, LIPA, TSH, AMADOU, CMP #### [facility] [address] [place] [address] Dr. Krystle Heaton PLT 192 103/ul Normal 150-450 [facility] Comment on above: Performed By: #### T 7, LIPA, TSH, AMADOU, CMP #### [facility] [address] [place] [address] Dr. Krystle Heaton RBC 4.34 106/ul Critically low 4.70-6.10 [facility] Comment on above: Performed By: #### T 7, LIPA, TSH, AMADOU, CMP #### [facility] [address] [place] [address] Dr. Krystle Heaton WBC 5.2 103/ul Normal 4.0-11.0 [facility] Comment on above: Performed By: #### T 7, LIPA, TSH, AMADOU, CMP #### [facility] [address] [place] [address] Dr. Krystle Heaton FERRITINon 07-09-2021 Ferritin [Mass/Vol] 122.0 ng/mL Normal 17.9-464.0 [facility] Comment on above: Performed By: #### T 7, LIPA, TSH, AMADOU, CMP #### [facility] [address] [place] [address] Dr. Krystle Heaton CBC AUTO DIFFon 06-11-2021 BASO # 0.0 103/ul Normal 0.0-0.1 [facility] Comment on above: Performed By: #### T 7, LIPA, TSH, AMADOU, CMP #### [facility] [address] [place] [address] Dr. Krystle Heaton Basophils/100 WBC (Bld) 0.7 % Normal 0.2-2.0 [facility] Comment on above: Performed By: #### T 7, LIPA, TSH, AMADOU, CMP #### [facility] [address] [place] [address] Dr. Krystle Heaton EO # 0.2 103/ul Normal 0.0-0.7 [facility] Comment on above: Performed By: #### T 7, LIPA, TSH, AMADOU, CMP #### [facility] [address] [place] [address] Dr. Krystle Heaton Eosinophils/100 WBC (Bld) 3.9 % Normal 0.9-7.0 [facility] Comment on above: Performed By: #### T 7, LIPA, TSH, AMADOU, CMP #### [facility] [address] [place] [address] Dr. Krystle Heaton Erythrocyte distribution width (RBC) [Ratio] 13.0 % Normal 11.0-15.0 [facility] Comment on above: Performed By: #### T 7, LIPA, TSH, AMADOU, CMP #### [facility] [address] [place] [address] Dr. Krystle Heaton Hematocrit (Bld) [Volume fraction] 39.0 % Critically low 42.0-54.0 [facility] Comment on above: Performed By: #### T 7, LIPA, TSH, AMADOU, CMP #### [facility] [address] [place] [address] Dr. Krystle Heaton Hemoglobin (Bld) [Mass/Vol] 12.4 g/dL Critically low 14.0-18.0 [facility] Comment on above: Performed By: #### T 7, LIPA, TSH, AMADOU, CMP #### [facility] [address] [place] [address] Dr. Krsytle Heaton IG # 0.01 10e3/ul Normal 0.00-0.03 [facility] Comment on above: Performed By: #### T 7, LIPA, TSH, AMADOU, CMP #### [facility] [address] [place] [address] Dr. Krystle Heaton IG % 0.2 % Normal 0.0-0.5 [facility] Comment on above: Performed By: #### T 7, LIPA, TSH, AMADOU, CMP #### [facility] [address] [place] [address] Dr. Krystle Heaton LYMPH # 1.0 103/ul Critically low 1.2-3.8 [facility] Comment on above: Performed By: #### T 7, LIPA, TSH, AMADOU, CMP #### [facility] [address] [place] [address] Dr. Krystle Heaton Lymphocytes/100 WBC (Bld) 23.1 % Normal 20.5-60.0 [facility] Comment on above: Performed By: #### T 7, LIPA, TSH, AMADOU, CMP #### [facility] [address] [place] [address] Dr. Krystle Heaton MANUAL DIFF REQ NO Normal [facility] Comment on above: Performed By: #### T 7, LIPA, TSH, AMADOU, CMP #### [facility] [address] [place] [address] Dr. Krystle Heaton MCH (RBC) [Entitic mass] 31.2 pg Normal 25.9-34.0 [facility] Comment on above: Performed By: #### T 7, LIPA, TSH, AMADOU, CMP #### [facility] [address] [place] [address] Dr. Krystle Heaton MCHC (RBC) [Mass/Vol] 31.8 g/dL Normal 29.9-35.2 [facility] Comment on above: Performed By: #### T 7, LIPA, TSH, AMADOU, CMP #### [facility] [address] [place] [address] Dr. Krystle Heaton MCV (RBC) [Entitic vol] 98.2 fL Critically high 80.0-94.0 [facility] Comment on above: Performed By: #### T 7, LIPA, TSH, AMADOU, CMP #### [facility] [address] [place] [address] Dr. Krystle Heaton MONO # 0.5 103/ul Normal 0.3-0.8 [facility] Comment on above: Performed By: #### T 7, LIPA, TSH, AMADOU, CMP #### [facility] [address] [place] [address] Dr. Krystle Heaton Monocytes/100 WBC (Bld) 10.4 % Normal 1.7-12.0 [facility] Comment on above: Performed By: #### T 7, LIPA, TSH, AMADOU, CMP #### [facility] [address] [place] [address] Dr. Krystle Heaton NEUT # 2.7 103/ul Normal 1.4-6.5 [facility] Comment on above: Performed By: #### T 7, LIPA, TSH, AMADOU, CMP #### [facility] [address] [place] [address] [address] Krystle Heaton Neutrophils/100 WBC (Bld) 61.7 % Normal 43.0-75.0 [facility] Comment on above: Performed By: #### T 7, LIPA, TSH, AMADOU, CMP #### [facility] [address] [place] [address] Dr. Krystle Heaton Platelet mean volume (Bld) [Entitic vol] 10.8 fL Normal 9.5-13.5 [facility] Comment on above: Performed By: #### T 7, LIPA, TSH, AMADOU, CMP #### [facility] [address] [place] [address] Dr. Krystle Heaton PLT 197 103/ul Normal 150-450 [facility] Comment on above: Performed By: #### T 7, LIPA, TSH, AMADOU, CMP #### [facility] [address] [place] [address] Dr. Krystle Heaton RBC 3.97 106/ul Critically low 4.70-6.10 [facility] Comment on above: Performed By: #### T 7, LIPA, TSH, AMADOU, CMP #### [facility] [address] [place] [address] Dr. Krystle Heaton WBC 4.3 103/ul Normal 4.0-11.0 [facility] Comment on above: Performed By: #### T 7, LIPA, TSH, AMADOU, CMP #### [facility] [address] [place] [address] Dr. Krystle Heaton FERRITINon 06-11-2021 Ferritin [Mass/Vol] 107.0 ng/mL Normal 17.9-464.0 [facility] Comment on above: Performed By: #### T 7, LIPA, TSH, AMADOU, CMP #### [facility] [address] [place] [address] Dr. Krystle Heaton CBC AUTO DIFFon 05-28-2021 BASO # 0.0 103/ul Normal 0.0-0.1 [facility] Comment on above: Performed By: #### T 7, LIPA, TSH, AMADOU, CMP #### [facility] [address] [place] [address] Dr. Krystle Heaton Basophils/100 WBC (Bld) 0.5 % Normal 0.2-2.0 [facility] Comment on above: Performed By: #### T 7, LIPA, TSH, AMADOU, CMP #### [facility] [address] [place] [address] Dr. Krystle Heaton EO # 0.1 103/ul Normal 0.0-0.7 [facility] Comment on above: Performed By: #### T 7, LIPA, TSH, AMADOU, CMP #### [facility] [address] [place] [address] Dr. Krystle Heaton Eosinophils/100 WBC (Bld) 3.5 % Normal 0.9-7.0 [facility] Comment on above: Performed By: #### T 7, LIPA, TSH, AMADOU, CMP #### [facility] [address] [place] [address] Dr. Krystle Heaton Erythrocyte distribution width (RBC) [Ratio] 12.6 % Normal 11.0-15.0 [facility] Comment on above: Performed By: #### T 7, LIPA, TSH, AMADOU, CMP #### [facility] [address] [place] [address] Dr. Krystle Heaton Hematocrit (Bld) [Volume fraction] 39.8 % Critically low 42.0-54.0 [facility] Comment on above: Performed By: #### T 7, LIPA, TSH, AMADOU, CMP #### [facility] [address] [place] [address] Dr. Krystle Heaton Hemoglobin (Bld) [Mass/Vol] 12.5 g/dL Critically low 14.0-18.0 [facility] Comment on above: Performed By: #### T 7, LIPA, TSH, AMADOU, CMP #### [facility] [address] [place] [address] Dr. Krystle Heaton IG # 0.00 10e3/ul Normal 0.00-0.03 [facility] Comment on above: Performed By: #### T 7, LIPA, TSH, AMADOU, CMP #### [facility] [address] [place] [address] Dr. Krystle Heaton IG % 0.0 % Normal 0.0-0.5 [facility] Comment on above: Performed By: #### T 7, LIPA, TSH, AMADOU, CMP #### [facility] [address] [place] [address] Dr. Krystle Heaton LYMPH # 1.2 103/ul Normal 1.2-3.8 [facility] Comment on above: Performed By: #### T 7, LIPA, TSH, AMADOU, CMP #### [facility] [address] [place] [address] Dr. Krystle Heaton Lymphocytes/100 WBC (Bld) 32.7 % Normal 20.5-60.0 [facility] Comment on above: Performed By: #### T 7, LIPA, TSH, AMADOU, CMP #### [facility] [address] [place] [address] Dr. Krystle Heaton MANUAL DIFF REQ NO Normal [facility] Comment on above: Performed By: #### T 7, LIPA, TSH, AMADOU, CMP #### [facility] [address] [place] [address] Dr. Krystle Heaton MCH (RBC) [Entitic mass] 32.1 pg Normal 25.9-34.0 [facility] Comment on above: Performed By: #### T 7, LIPA, TSH, AMADOU, CMP #### [facility] [address] [place] [address] Dr. Krystle Heaton MCHC (RBC) [Mass/Vol] 31.4 g/dL Normal 29.9-35.2 [facility] Comment on above: Performed By: #### T 7, LIPA, TSH, AMADOU, CMP #### [facility] [address] [place] [address] Dr. Krystle Heaton MCV (RBC) [Entitic vol] 102.3 fL Critically high 80.0-94.0 [facility] Comment on above: Performed By: #### T 7, LIPA, TSH, AMADOU, CMP #### [facility] [address] [address] [address] Krystle Heaton MONO # 0.4 103/ul Normal 0.3-0.8 [facility] Comment on above: Performed By: #### T 7, LIPA, TSH, AMADOU, CMP #### [facility] [address] [place] [address] Dr. Krystle Heaton Monocytes/100 WBC (Bld) 10.5 % Normal 1.7-12.0 [facility] Comment on above: Performed By: #### T 7, LIPA, TSH, AMADOU, CMP #### [facility] [address] [place] [address] Dr. Krystle Heaton NEUT # 2.0 103/ul Normal 1.4-6.5 [facility] Comment on above: Performed By: #### T 7, LIPA, TSH, AMADOU, CMP #### [facility] [address] [place] [address] Dr. Krystle Heaton Neutrophils/100 WBC (Bld) 52.8 % Normal 43.0-75.0 [facility] Comment on above: Performed By: #### T 7, LIPA, TSH, AMADOU, CMP #### [facility] [address] [place] [address] Dr. Krystle Heaton Platelet mean volume (Bld) [Entitic vol] 10.7 fL Normal 9.5-13.5 [facility] Comment on above: Performed By: #### T 7, LIPA, TSH, AMADOU, CMP #### [facility] [address] [place] [address] Dr. Krystle Heaton PLT 227 103/ul Normal 150-450 [facility] Comment on above: Performed By: #### T 7, LIPA, TSH, AMADOU, CMP #### [facility] [address] [place] [address] Dr. Krystle Heaton RBC 3.89 106/ul Critically low 4.70-6.10 [facility] Comment on above: Performed By: #### T 7, LIPA, TSH, AMADOU, CMP #### [facility] [address] [address] [address] Krystle Heaton WBC 3.7 103/ul Critically low 4.0-11.0 [facility] Comment on above: Performed By: #### T 7, LIPA, TSH, AMADOU, CMP #### [facility] [address] [place] [address] Dr. Krystle Heaton FERRITINon 05-28-2021 Ferritin [Mass/Vol] 169.0 ng/mL Normal 17.9-464.0 [facility] Comment on above: Performed By: #### F ERR #### [facility] [address] [address] [address] Krystle Heaton METHYLMALONIC ACID (MMA)on 0 05-18-2021 Disclaimer: Comment Normal [facility] Comment on above: Result Comment: This test was developed and its performance characteristics determined by [facility]. It has not been cleared or approved by the Food and Drug Administration. Performed By: #### T 7, LIPA, TSH, AMADOU, CMP #### [facility] [address] [place] [address] Dr. Krystle Heaton Methylmalonic Acid, Serum 124 nmol/L Normal 0-378 [facility] Comment on above: Performed By: #### T 7, LIPA, TSH, AMADOU, CMP #### [facility] [address] [place] [address] Dr. Krystle Heaton HOMOCYSTEINEon 05-16-2021 Homocyst(e)ine, Plasma 19.5 umol/L Critically high 0.0-14.5 [facility] Comment on above: Performed By: #### T 7, LIPA, TSH, AMADOU, CMP #### [facility] [address] [place] [address] Dr. Krystle Heaton CBC AUTO DIFFon 05-15-2021 BASO # 0.0 103/ul Normal 0.0-0.1 [facility] Comment on above: Performed By: #### T 7, LIPA, TSH, AMADOU, CMP #### [facility] [address] [place] [address] Dr. Krystle Heaton Basophils/100 WBC (Bld) 0.5 % Normal 0.2-2.0 [facility] Comment on above: Performed By: #### T 7, LIPA, TSH, AMADOU, CMP #### [facility] [address] [place] [address] Dr. Krystle Heaton EO # 0.1 103/ul Normal 0.0-0.7 [facility] Comment on above: Performed By: #### T 7, LIPA, TSH, AMADOU, CMP #### [facility] [address] [place] [address] Dr. Krystle Heaton Eosinophils/100 WBC (Bld) 1.8 % Normal 0.9-7.0 [facility] Comment on above: Performed By: #### T 7, LIPA, TSH, AMADOU, CMP #### [facility] [address] [place] [address] Dr. Krystle Heaton Erythrocyte distribution width (RBC) [Ratio] 12.7 % Normal 11.0-15.0 [facility] Comment on above: Performed By: #### T 7, LIPA, TSH, AMADOU, CMP #### [facility] [address] [place] [address] Dr. Krystle Heaton Hematocrit (Bld) [Volume fraction] 39.4 % Critically low 42.0-54.0 [facility] Comment on above: Performed By: #### T 7, LIPA, TSH, AMADOU, CMP #### [facility] [address] [place] [address] Dr. Krystle Heaton Hemoglobin (Bld) [Mass/Vol] 12.9 g/dL Critically low 14.0-18.0 [facility] Comment on above: Performed By: #### T 7, LIPA, TSH, AMADOU, CMP #### [facility] [address] [place] [address] Dr. Krystle Heaton IG # 0.02 10e3/ul Normal 0.00-0.03 [facility] Comment on above: Performed By: #### T 7, LIPA, TSH, AMADOU, CMP #### [facility] [address] [place] [address] Dr. Krystle Heaton IG % 0.4 % Normal 0.0-0.5 [facility] Comment on above: Performed By: #### T 7, LIPA, TSH, AMADOU, CMP #### [facility] [address] [place] [address] Dr. Krystle Heaton LYMPH # 1.4 103/ul Normal 1.2-3.8 [facility] Comment on above: Performed By: #### T 7, LIPA, TSH, AMADOU, CMP #### [facility] [address] [place] [address] Dr. Krystle Heaton Lymphocytes/100 WBC (Bld) 24.9 % Normal 20.5-60.0 [facility] Comment on above: Performed By: #### T 7, LIPA, TSH, AMADOU, CMP #### [facility] [address] [place] [address] Dr. Krystle Heaton MANUAL DIFF REQ NO Normal [facility] Comment on above: Performed By: #### T 7, LIPA, TSH, AMADOU, CMP #### [facility] [address] [place] [address] Dr. Krystle Heaton MCH (RBC) [Entitic mass] 34.0 pg Normal 25.9-34.0 [facility] Comment on above: Performed By: #### T 7, LIPA, TSH, AMADOU, CMP #### [facility] [address] [place] [address] Dr. Krystle Heaton MCHC (RBC) [Mass/Vol] 32.7 g/dL Normal 29.9-35.2 [facility] Comment on above: Performed By: #### T 7, LIPA, TSH, AMADOU, CMP #### [facility] [address] [place] [address] Dr. Krystle Heaton MCV (RBC) [Entitic vol] 104.0 fL Critically high 80.0-94.0 [facility] Comment on above: Performed By: #### T 7, LIPA, TSH, AMADOU, CMP #### [facility] [address] [place] [address] Dr. Krystle Heaton MONO # 0.7 103/ul Normal 0.3-0.8 [facility] Comment on above: Performed By: #### T 7, LIPA, TSH, AMADOU, CMP #### [facility] [address] [address] [address] Krystle Heaton Monocytes/100 WBC (Bld) 11.8 % Normal 1.7-12.0 [facility] Comment on above: Performed By: #### T 7, LIPA, TSH, AMADOU, CMP #### [facility] [address] [place] [address] Dr. Krystle Heaton NEUT # 3.3 103/ul Normal 1.4-6.5 [facility] Comment on above: Performed By: #### T 7, LIPA, TSH, AMADOU, CMP #### [facility] [address] [place] [address] Dr. Krystle Heaton Neutrophils/100 WBC (Bld) 60.6 % Normal 43.0-75.0 [facility] Comment on above: Performed By: #### T 7, LIPA, TSH, AMADOU, CMP #### [facility] [address] [place] [address] Dr. Krystle Heaton Platelet mean volume (Bld) [Entitic vol] 10.2 fL Normal 9.5-13.5 [facility] Comment on above: Performed By: #### T 7, LIPA, TSH, AMADOU, CMP #### [facility] [address] [place] [address] Dr. Krystle Heaton PLT 196 103/ul Normal 150-450 [facility] Comment on above: Performed By: #### T 7, LIPA, TSH, AMADOU, CMP #### [facility] [address] [place] [address] Dr. Krystle Heaton RBC 3.79 106/ul Critically low 4.70-6.10 [facility] Comment on above: Performed By: #### T 7, LIPA, TSH, AMADOU, CMP #### [facility] [address] [place] [address] Dr. Krystle Heaton WBC 5.5 103/ul Normal 4.0-11.0 [facility] Comment on above: Performed By: #### T 7, LIPA, TSH, AMADOU, CMP #### [facility] [address] [place], [place] [id number] Dr. Krystle Heaton FERRITINon 05-15-2021 Ferritin [Mass/Vol] 302.0 ng/mL Normal 17.9-464.0 [facility] Comment on above: Performed By: #### C BC #### [facility] [address] [place], [place] [id number] Billy Devlin PROF 14(COMP METB)on 021 Albumin [Mass/Vol] 3.5 g/dL Normal 3.5-5.0 [facility] Comment on above: Performed By: #### C BC #### [facility] [address] [place], [place] [id number] Billycarrillo Devlin Albumin/Globulin [Mass ratio] 1.0 {ratio} Normal [facility] Comment on above: Performed By: #### C BC #### [facility] [address] [place] [address] Billy Quita ALP [Catalytic activity/Vol] 71 U/L Normal 38-126 [facility] Comment on above: Performed By: #### C BC #### [facility] [address] [place], [place] [id number] Billy Quita ALT [Catalytic activity/Vol] 40 U/L Normal 21-72 [facility] Comment on above: Performed By: #### C BC #### [facility] [address] [place], [place] [id number] Billy Quita Anion gap [Moles/Vol] 17.5 mmol/L Normal [facility] Comment on above: Performed By: #### C BC #### [facility] [address] [place], [place] [id number] Billy Quita AST [Catalytic activity/Vol] 43 U/L Normal 17-59 [facility] Comment on above: Performed By: #### C BC #### [facility] [address] [place], [place] [id number] Billy Quita Bilirubin [Mass/Vol] 0.3 mg/dL Normal 0.2-1.3 [facility] Comment on above: Performed By: #### C BC #### [facility] [address] [address] Billy Quita Calcium [Mass/Vol] 8.8 mg/dL Normal 8.4-10.2 [facility] Comment on above: Performed By: #### C BC #### [facility] [address] [address] Billy Quita Chloride [Moles/Vol] 101 mmol/L Normal 98-107 [facility] Comment on above: Performed By: #### C BC #### [facility] [address] [address] Billy Quita CO2 [Moles/Vol] 26.6 mmol/L Normal 22.0-30.0 [facility] Comment on above: Performed By: #### C BC #### [facility] [address] [place] [address] Billy Quita Creatinine [Mass/Vol] 0.88 mg/dL Normal 0.66-1.25 [facility] Comment on above: Performed By: #### C BC #### [facility] [address] [place] [address] Billy Quita EGFR-AF ANDORRAN >60 Normal >=60 [facility] Comment on above: Performed By: #### C BC #### [facility] [address] [place] [address] Billy Quita EGFR-NON AF ANDORRAN >60 Normal >=60 [facility] Comment on above: Performed By: #### C BC #### [facility] [address] [place] [address] Billy Quita Globulin (S) [Mass/Vol] 3.6 g/dL Normal [facility] Comment on above: Performed By: #### C BC #### [facility] [address] [place] [address] Billy Quita Glucose [Mass/Vol] 101 mg/dL Normal 74-106 [facility] Comment on above: Performed By: #### C BC #### [facility] [address] [place], [place] [address] Billy Quita Potassium [Moles/Vol] 4.1 mmol/L Normal 3.4-5.0 [facility] Comment on above: Performed By: #### C BC #### [facility] [address] [place], [place] [address] Billy Quita Protein [Mass/Vol] 7.1 g/dL Normal 6.1-8.2 [facility] Comment on above: Performed By: #### C BC #### [facility] [address] [place], [place] [address] Billy Quita Sodium [Moles/Vol] 141 mmol/L Normal 137-145 [facility] Comment on above: Performed By: #### C BC #### [facility] [address] [id number] Billy Quita Urea nitrogen [Mass/Vol] 11.0 mg/dL Normal 9.0-20.0 [facility] Comment on above: Performed By: #### C BC #### [facility] [address] [id number] Billy Quita Urea nitrogen/Creatinine [Mass ratio] 12.5 mg/mg Normal [facility] Comment on above: Performed By: #### C BC #### [facility] [address] [place], [place] [address] Billy Quita IN BIOPSY LIVER PERCUTANEOUS NEEDLEon 05-08-2021 IN BIOPSY LIVER PERCUTANEOUS NEEDLE Patient Name: CHUY CHAPIN STUDY: IN BIOPSY LIVER PERCUTANEOUS NEEDLE; ; 05/08/2021 11:46 am INDICATION: None. COMPARISON: None. ACCESSION NUMBER(S): [id number] ORDERING CLINICIAN: ENOCH HERRMANN TECHNIQUE: CONSENT: The [...] and cap. Additionally, the performing physician and parts room assistant used maximum barrier technique to include [...] were made using an 18 gauge spring-loaded [employer] core biopsy needle. Good core samples were [...] above Electronically signed by: URI BACON MD [facility] Order Reconciliationon 05-08 Order Reconciliation Page [...] tab(s) orally 2 times a day Normal [facility] Surgical Pathology Depar tmenton 05-08-2021 [facility] Surgical Pathology Department Name CHUY CHAPIN Pathologist: SUSAN BLACK M.D., PhD. Date of Procedure: 05/08/2021 Date Received: 05/08/2021 Date Reported 05/11/2021 Submitting Physician: ENOCH HERRMANN MD Location: [facility] Copy To/Referring/Attending: URI BACON [...] positive and negative controls which stained appropriately. [facility] Department of Pathology [address] [place] [address] Normal [facility] Comment on above: Performed By: #### U HCS #### [facility] Surgical Pathology Department [address] [place] [address] CBC AUTO DIFFon 05-04-2021 BASO # 0.0 103/ul Normal 0.0-0.1 [facility] Comment on above: Performed By: #### F ERR #### [facility] [address] [place] [address] Dr. Krystle Heaton Basophils/100 WBC (Bld) 0.5 % Normal 0.2-2.0 [facility] Comment on above: Performed By: #### F ERR #### [facility] [address] [place] [address] Dr. Krystle Heaton EO # 0.1 103/ul Normal 0.0-0.7 [facility] Comment on above: Performed By: #### F ERR #### [facility] [address] [place] [address] Dr. Krystle Heaton Eosinophils/100 WBC (Bld) 2.5 % Normal 0.9-7.0 [facility] Comment on above: Performed By: #### F ERR #### [facility] [address] [place] [address] Dr. Krystle Heaton Erythrocyte distribution width (RBC) [Ratio] 12.5 % Normal 11.0-15.0 [facility] Comment on above: Performed By: #### F ERR #### [facility] [address] [place] [address] Dr. Krystle Heaton Hematocrit (Bld) [Volume fraction] 34.3 % Critically low 42.0-54.0 [facility] Comment on above: Performed By: #### F ERR #### [facility] [address] [place] [address] Dr. Krystle Heaton Hemoglobin (Bld) [Mass/Vol] 11.2 g/dL Critically low 14.0-18.0 [facility] Comment on above: Performed By: #### F ERR #### [facility] [address] [place] [address] Dr. Krystle Heaton IG # 0.01 10e3/ul Normal 0.00-0.03 [facility] Comment on above: Performed By: #### F ERR #### [facility] [address] [place] [address] Dr. Krystle Heaton IG % 0.3 % Normal 0.0-0.5 [facility] Comment on above: Performed By: #### F ERR #### [facility] [address] [place] [address] Dr. Krystle Heaton LYMPH # 1.3 103/ul Normal 1.2-3.8 [facility] Comment on above: Performed By: #### F ERR #### [facility] [address] [place] [address] Dr. Krystle Heaton Lymphocytes/100 WBC (Bld) 33.3 % Normal 20.5-60.0 [facility] Comment on above: Performed By: #### F ERR #### [facility] [address] [place] [address] Dr. Krystle Heaton MANUAL DIFF REQ NO Normal [facility] Comment on above: Performed By: #### F ERR #### [facility] [address] [place] [address] Dr. Krystle Heaton MCH (RBC) [Entitic mass] 35.6 pg Critically high 25.9-34.0 [facility] Comment on above: Performed By: #### F ERR #### [facility] [address] [address] [address] Krystle Heaton MCHC (RBC) [Mass/Vol] 32.7 g/dL Normal 29.9-35.2 [facility] Comment on above: Performed By: #### F ERR #### [facility] [address] [place] [address] Dr. Krystle Heaton MCV (RBC) [Entitic vol] 108.9 fL Critically high 80.0-94.0 [facility] Comment on above: Performed By: #### F ERR #### [facility] [address] [place] [address] Dr. Krystle Heaton MONO # 0.4 103/ul Normal 0.3-0.8 [facility] Comment on above: Performed By: #### F ERR #### [facility] [address] [place] [address] Dr. Krystle Heaton Monocytes/100 WBC (Bld) 10.0 % Normal 1.7-12.0 [facility] Comment on above: Performed By: #### F ERR #### [facility] [address] [place] [address] Dr. Krystle Heaton NEUT # 2.1 103/ul Normal 1.4-6.5 [facility] Comment on above: Performed By: #### F ERR #### [facility] [address] [place] [address] Dr. Krystle Heaton Neutrophils/100 WBC (Bld) 53.4 % Normal 43.0-75.0 [facility] Comment on above: Performed By: #### F ERR #### [facility] [address] [place] [address] Dr. Krystle Heaton Platelet mean volume (Bld) [Entitic vol] 10.7 fL Normal 9.5-13.5 [facility] Comment on above: Performed By: #### F ERR #### [facility] [address] [place] [address] Dr. Krystle Heaton PLT 174 103/ul Normal 150-450 [facility] Comment on above: Performed By: #### F ERR #### [facility] [address] [place] [address] Dr. Krystle Heaton RBC 3.15 106/ul Critically low 4.70-6.10 [facility] Comment on above: Result Comment: SLID E REVIEWED. 2+ MACROCYTOSIS SEEN Performed By: #### F ERR #### [facility] [address] [place] [address] Dr. Krystle Heaton WBC 4.0 103/ul Normal 4.0-11.0 [facility] Comment on above: Performed By: #### F ERR #### [facility] [address] [place] [address] Dr. Krystle Heaton FERRITINon 05-04-2021 Ferritin [Mass/Vol] 417.0 ng/mL Normal 17.9-464.0 [facility] Comment on above: Performed By: #### T 7, LIPA, TSH, AMADOU, CMP #### [facility] [address] [place] [address] Dr. Krystle Heaton AFP (TUMOR MARKER)on 021 AFP, Serum, Tumor Marker 5.2 ng/mL Normal 0.0-8.3 [facility] Comment on above: Result Comment: [facility] [employer] Electrochemiluminescence Immunoassay (ECLIA) . Values obtained with different assay methods or kits cannot be used interchangeably. Results cannot be interpreted as absolute evidence of the presence or absence of malignant disease. . This test is not interpretable in females. Performed By: #### T 7, LIPA, TSH, AMADOU, CMP #### [facility] [address] [place] [address] Dr. Krystle Heaton [id number] 2020 [id number]-2-Idntdugjely , Serum 132 mg/dL Normal 101-187 [facility] Comment on above: Performed By: #### H BSANS #### [facility] [address] [place] [address] Billy Devlin NE by IFAon 05-02-2021 Antinuclear Antibodies, IFA Negative Normal [facility] Comment on above: Result Comment: Nega tive <1:80 Borderline 1:80 Positive >1:80 Performed By: #### A NAIFA #### [facility] [address] [address] Billy Devlin CERULOPLASMINon 05-02-2021 Ceruloplasmin 27.8 mg/dL Normal 16.0-31.0 [facility] Comment on above: Performed By: #### C BC #### [facility] [address] [place], [place] [id number] Billy Devlin HEP A AB TOTALon 05-02-2021 Hep A Ab, Total Negative Normal Negative [facility] Comment on above: Performed By: #### H BSANS #### [facility] [address] [place] [address] Billy Devlin HEP B COREon 05-02-2021 Hep B Core Ab, Tot Negative Normal Negative [facility] Comment on above: Performed By: #### T 7, LIPA, TSH, AMADOU, CMP #### [facility] [address] [place] [address] Dr. Krystle Heaton HEP B SURFACE ANTIGEN SCREEN on 05-02-2021 HBsAg Screen Negative Normal Negative [facility] Comment on above: Performed By: #### H BSANS #### [facility] [address] [place] [address] Billy Devlin HEPATITIS B SURFACE ANTIBODY , QUANTon 05-02-2021 Hepatitis B Surf AB Quant <3.1 Critically low Immunity>9. 9 [facility] Comment on above: Result Comment: Stat us of Immunity Anti-HBs Level Inconsistent with Immunity 0.0 - 9.9 Consistent with Immunity >9.9 Performed By: #### H BSANS #### [facility] [address] [place] [address] Billy Devlin HEPATITIS C ANTIBODYon 05-02 Hep C Virus Ab <0.1 Normal 0.0-0.9 [facility] Comment on above: Result Comment: Nega tive: < 0.8 Indeterminate: 0.8 - 0.9 Positive: > 0.9 . The CDC recommends that a positive HCV antibody result be followed up with a HCV Nucleic Acid Amplification test (193976). Performed By: #### T 7, LIPA, TSH, AMADOU, CMP #### [facility] [address] [place] [address] Dr. Krystle Heaton MITICHONDRIAL (M2) ANTIBODYo n 05-02-2021 Mitochondrial (M2) Antibody <20.0 Normal 0.0-20.0 [facility] Comment on above: Result Comment: Nega tive 0.0 - 20.0 Equivocal 20.1 - 24.9 Positive >24.9 . Mitochondrial (M2) Antibodies are found in 90-96% of patients with primary biliary cirrhosis. Performed By: #### F ERR #### [facility] [address] [place] [address] Dr. Krystle Heaton CBC AUTO DIFFon 05-01-2021 BASO # 0.1 103/ul Normal 0.0-0.1 [facility] Comment on above: Performed By: #### C BC #### [facility] [address] [place] [address] Billy Quita Basophils/100 WBC (Bld) 1.5 % Normal 0.2-2.0 [facility] Comment on above: Performed By: #### C BC #### [facility] [address] [place] [address] Billy Quita EO # 0.1 103/ul Normal 0.0-0.7 [facility] Comment on above: Performed By: #### C BC #### [facility] [address] [place] [address] Billy Quita Eosinophils/100 WBC (Bld) 2.1 % Normal 0.9-7.0 [facility] Comment on above: Performed By: #### C BC #### [facility] [address] [place], [place] [id number] Billy Quita Erythrocyte distribution width (RBC) [Ratio] 12.7 % Normal 11.0-15.0 [facility] Comment on above: Performed By: #### C BC #### [facility] [address] [place], [place] [id number] Billy Quita Hematocrit (Bld) [Volume fraction] 34.6 % Critically low 42.0-54.0 [facility] Comment on above: Performed By: #### C BC #### [facility] [address] [place] [address] Billy Devlin Hemoglobin (Bld) [Mass/Vol] 11.2 g/dL Critically low 14.0-18.0 [facility] Comment on above: Performed By: #### C BC #### [facility] [address] [place] [address] Billycarrillo Devlin IG # 0.01 10e3/ul Normal 0.00-0.03 [facility] Comment on above: Performed By: #### C BC #### [facility] [address] [place] [address] Billy Devlin IG % 0.3 % Normal 0.0-0.5 [facility] Comment on above: Performed By: #### C BC #### [facility] [address] [place] [address] Billy Devlin LYMPH # 1.0 103/ul Critically low 1.2-3.8 [facility] Comment on above: Performed By: #### C BC #### [facility] [address] [place] [address] Billy Devlin Lymphocytes/100 WBC (Bld) 30.4 % Normal 20.5-60.0 [facility] Comment on above: Performed By: #### C BC #### [facility] [address] [place] [address] Billy Devlin MANUAL DIFF REQ NO Normal [facility] Comment on above: Performed By: #### C BC #### [facility] [address] [place] [address] Billy Devlin MCH (RBC) [Entitic mass] 35.8 pg Critically high 25.9-34.0 [facility] Comment on above: Performed By: #### C BC #### [facility] [address] [place] [address] Billy Devlin MCHC (RBC) [Mass/Vol] 32.4 g/dL Normal 29.9-35.2 [facility] Comment on above: Performed By: #### C BC #### [facility] [address] [id number] Billy Devlin MCV (RBC) [Entitic vol] 110.5 fL Critically high 80.0-94.0 [facility] Comment on above: Performed By: #### C BC #### [facility] [address] [id number] Billy Devlin MONO # 0.4 103/ul Normal 0.3-0.8 [facility] Comment on above: Performed By: #### C BC #### [facility] [address] [place], [place] [id number] Billy Devlin Monocytes/100 WBC (Bld) 11.3 % Normal 1.7-12.0 [facility] Comment on above: Performed By: #### C BC #### [facility] [address] [place], [place] [id number] Billy eDanen NEUT # 1.8 103/ul Normal 1.4-6.5 [facility] Comment on above: Performed By: #### C BC #### [facility] [address] [place], [place] [id number] Billy Devlin Neutrophils/100 WBC (Bld) 54.4 % Normal 43.0-75.0 [facility] Comment on above: Performed By: #### C BC #### [facility] [address] [place], [place] [id number] Billy Devlin Platelet mean volume (Bld) [Entitic vol] 11.3 fL Normal 9.5-13.5 [facility] Comment on above: Performed By: #### C BC #### [facility] [address] [place], [place] [id number] Billy Quita PLT 142 103/ul Critically low 150-450 [facility] Comment on above: Performed By: #### C BC #### [facility] [address] [place], [place] [id number] Billy Quita RBC 3.13 106/ul Critically low 4.70-6.10 [facility] Comment on above: Performed By: #### C BC #### [facility] [address] [place], [place] [address] Billy Quita WBC 3.4 103/ul Critically low 4.0-11.0 [facility] Comment on above: Performed By: #### C BC #### [facility] [address] [place], [place] [address] Billy Quita LIVER PROFILEon 05-01-2021 Albumin/Globulin [Mass ratio] 1.0 {ratio} Normal [facility] Comment on above: Performed By: #### H BSANS #### [facility] [address] [address] Billy Quita ALP [Catalytic activity/Vol] 67 U/L Normal 38-126 [facility] Comment on above: Performed By: #### H BSANS #### [facility] [address] [place] [address] Billy Quita ALT [Catalytic activity/Vol] 52 U/L Normal 21-72 [facility] Comment on above: Performed By: #### H BSANS #### [facility] [address] [place] [address] Billy Quita AST [Catalytic activity/Vol] 51 U/L Normal 17-59 [facility] Comment on above: Performed By: #### H BSANS #### [facility] [address] [place] [address] Billy Quita BILI, CONJUGATED 0.2 mg/dL Normal 0.0-0.3 [facility] Comment on above: Performed By: #### H BSANS #### [facility] [address] [place] [address] Billy Quita Bilirubin [Mass/Vol] 0.5 mg/dL Normal 0.2-1.3 [facility] Comment on above: Performed By: #### H BSANS #### [facility] [address] [place], [place] [id number] Billy Quita Globulin (S) [Mass/Vol] 3.4 g/dL Normal [facility] Comment on above: Performed By: #### H BSANS #### [facility] [address] [place] [address] Billy Quita Protein [Mass/Vol] 6.9 g/dL Normal 6.1-8.2 [facility] Comment on above: Performed By: #### H BSANS #### [facility] [address] [place], [place] [id number] Billy Quita PROTIMEon 05-01-2021 INR Coag (PPP) [Relative time] 0.95 {INR} Normal [facility] Comment on above: Performed By: #### C BC #### [facility] [address] [place] [address] Billy Quita INR GUIDELINES SEE BELOW Normal [facility] Comment on above: Result Comment: MOUNA RED INR: 2.0 - 3.0 CONDITIONS NOT LISTED BELOW 2.5 - 3.5 FOR PROSTHETIC HEART VALVE REPLACEMENT 2.5 - 3.5 RECURRENT THROMBOSIS Performed By: #### C BC #### [facility] [address] [place] [address] Billy Quita PT Coag (PPP) [Time] 10.4 s Normal 9.0-11.6 [facility] Comment on above: Performed By: #### C BC #### [facility] [address] [place] [address] Billy Quita RENAL FUNCTION PANELon 05-01 Albumin [Mass/Vol] 3.5 g/dL Normal 3.5-5.0 [facility] Comment on above: Performed By: #### H BSANS #### [facility] [address] [place] [address] Billy Quita Calcium [Mass/Vol] 8.7 mg/dL Normal 8.4-10.2 [facility] Comment on above: Performed By: #### H BSANS #### [facility] [address] [place] [address] Billy Quita Chloride [Moles/Vol] 104 mmol/L Normal 98-107 [facility] Comment on above: Performed By: #### H BSANS #### [facility] [address] [place] [address] Billy Quita CO2 [Moles/Vol] 25.7 mmol/L Normal 22.0-30.0 [facility] Comment on above: Performed By: #### H BSANS #### [facility] [address] [phone] Billy Quita Creatinine [Mass/Vol] 1.01 mg/dL Normal 0.66-1.25 [facility] Comment on above: Performed By: #### H BSANS #### [facility] [address] [address] Billy Quita EGFR-AF ANDORRAN >60 Normal >=60 [facility] Comment on above: Performed By: #### H BSANS #### [facility] [address] [address] Billy Quita EGFR-NON AF ANDORRAN >60 Normal >=60 [facility] Comment on above: Performed By: #### H BSANS #### [facility] [address] [place] [address] Billy Quita Glucose [Mass/Vol] 103 mg/dL Normal 74-106 [facility] Comment on above: Performed By: #### H BSANS #### [facility] [address] [address] Billy Quita Phosphate [Mass/Vol] 3.6 mg/dL Normal 2.5-4.5 [facility] Comment on above: Performed By: #### H BSANS #### [facility] [address] [place] [address] Billy Quita Potassium [Moles/Vol] 4.2 mmol/L Normal 3.4-5.0 [facility] Comment on above: Performed By: #### H BSANS #### [facility] [address] [address] Billy Quita Sodium [Moles/Vol] 138 mmol/L Normal 137-145 [facility] Comment on above: Performed By: #### H BSANS #### [facility] [address] [address] Billy Quita Urea nitrogen [Mass/Vol] 7.0 mg/dL Critically low 9.0-20.0 [facility] Comment on above: Performed By: #### H BSANS #### [facility] [address] [place] [address] Billy Devlin CBC AUTO DIFFon 04-27-2021 BASO # 0.0 103/ul Normal 0.0-0.1 [facility] Comment on above: Performed By: #### T 7, LIPA, TSH, AMADOU, CMP #### [facility] [address] [place] [address] Dr. Krystle Heaton Basophils/100 WBC (Bld) 0.9 % Normal 0.2-2.0 [facility] Comment on above: Performed By: #### T 7, LIPA, TSH, AMADOU, CMP #### [facility] [address] [place] [address] Dr. Krystle Heaton EO # 0.1 103/ul Normal 0.0-0.7 [facility] Comment on above: Performed By: #### T 7, LIPA, TSH, AMADOU, CMP #### [facility] [address] [place] [address] Dr. Krystle Heaton Eosinophils/100 WBC (Bld) 2.6 % Normal 0.9-7.0 [facility] Comment on above: Performed By: #### T 7, LIPA, TSH, AMADOU, CMP #### [facility] [address] [place] [address] Dr. Krystle Heaton Erythrocyte distribution width (RBC) [Ratio] 12.4 % Normal 11.0-15.0 [facility] Comment on above: Performed By: #### T 7, LIPA, TSH, AMADOU, CMP #### [facility] [address] [place] [address] Dr. Krystle Heaton Hematocrit (Bld) [Volume fraction] 36.8 % Critically low 42.0-54.0 [facility] Comment on above: Performed By: #### T 7, LIPA, TSH, AMADOU, CMP #### [facility] [address] [place] [address] Dr. Krystle Heaton Hemoglobin (Bld) [Mass/Vol] 12.0 g/dL Critically low 14.0-18.0 [facility] Comment on above: Performed By: #### T 7, LIPA, TSH, AMADOU, CMP #### [facility] [address] [place] [address] Dr. Krystle Heaton IG # 0.02 10e3/ul Normal 0.00-0.03 [facility] Comment on above: Performed By: #### T 7, LIPA, TSH, AMADOU, CMP #### [facility] [address] [place] [address] Dr. Krystle Heaton IG % 0.4 % Normal 0.0-0.5 [facility] Comment on above: Performed By: #### T 7, LIPA, TSH, AMADOU, CMP #### [facility] [address] [place] [address] Dr. Krystle Heaton LYMPH # 1.2 103/ul Normal 1.2-3.8 [facility] Comment on above: Performed By: #### T 7, LIPA, TSH, AMADOU, CMP #### [facility] [address] [place] [address] Dr. Krystle Heaton Lymphocytes/100 WBC (Bld) 26.0 % Normal 20.5-60.0 [facility] Comment on above: Performed By: #### T 7, LIPA, TSH, AMDAOU, CMP #### [facility] [address] [place] [address] Dr. Krystle Heaton MANUAL DIFF REQ NO Normal [facility] Comment on above: Performed By: #### T 7, LIPA, TSH, AMADOU, CMP #### [facility] [address] [place] [address] Dr. Krystle Heaton MCH (RBC) [Entitic mass] 36.4 pg Critically high 25.9-34.0 [facility] Comment on above: Performed By: #### T 7, LIPA, TSH, AMADOU, CMP #### [facility] [address] [place] [address] Dr. Krystle Heaton MCHC (RBC) [Mass/Vol] 32.6 g/dL Normal 29.9-35.2 [facility] Comment on above: Performed By: #### T 7, LIPA, TSH, AMADOU, CMP #### [facility] [address] [place] [address] Dr. Krystle Heaton MCV (RBC) [Entitic vol] 111.5 fL Critically high 80.0-94.0 [facility] Comment on above: Performed By: #### T 7, LIPA, TSH, AMADOU, CMP #### [facility] [address] [place] [address] Dr. Krystle Heaton MONO # 0.5 103/ul Normal 0.3-0.8 [facility] Comment on above: Performed By: #### T 7, LIPA, TSH, AMADOU, CMP #### [facility] [address] [place] [address] Dr. Krystle Heaton Monocytes/100 WBC (Bld) 10.1 % Normal 1.7-12.0 [facility] Comment on above: Performed By: #### T 7, LIPA, TSH, AMADOU, CMP #### [facility] [address] [place] [address] Dr. Krystle Heaton NEUT # 2.8 103/ul Normal 1.4-6.5 [facility] Comment on above: Performed By: #### T 7, LIPA, TSH, AMADOU, CMP #### [facility] [address] [place] [address] Dr. Krystle Heaton Neutrophils/100 WBC (Bld) 60.0 % Normal 43.0-75.0 [facility] Comment on above: Performed By: #### T 7, LIPA, TSH, AMADOU, CMP #### [facility] [address] [place] [address] Dr. Krystle Heaton Platelet mean volume (Bld) [Entitic vol] 11.0 fL Normal 9.5-13.5 [facility] Comment on above: Performed By: #### T 7, LIPA, TSH, AMADOU, CMP #### [facility] [address] [place] [address] Dr. Krystle Heaton PLT 140 103/ul Critically low 150-450 [facility] Comment on above: Performed By: #### T 7, LIPA, TSH, AMADOU, CMP #### [facility] [address] [place] [address] Dr. Krystle Heaton RBC 3.30 106/ul Critically low 4.70-6.10 [facility] Comment on above: Performed By: #### T 7, LIPA, TSH, AMADOU, CMP #### [facility] [address] [place] [address] Dr. Krystle Heaton WBC 4.7 103/ul Normal 4.0-11.0 [facility] Comment on above: Performed By: #### T 7, LIPA, TSH, MAADOU, CMP #### [facility] [address] [place] [address] Dr. Krystle Heaton FERRITINon 04-27-2021 Ferritin [Mass/Vol] 845.0 ng/mL Critically high 17.9-464.0 [facility] Comment on above: Performed By: #### F ERR #### [facility] [address] [place] [address] Dr. Krystle Heaton CBC AUTO DIFFon 04-18-2021 BASO # 0.1 103/ul Normal 0.0-0.1 [facility] Comment on above: Performed By: #### T 7, LIPA, TSH, AMADOU, CMP #### [facility] [address] [place] [address] Dr. Krystle Heaton Basophils/100 WBC (Bld) 1.1 % Normal 0.2-2.0 [facility] Comment on above: Performed By: #### T 7, LIPA, TSH, AMADOU, CMP #### [facility] [address] [place] [address] Dr. Krystle Heaton EO # 0.1 103/ul Normal 0.0-0.7 [facility] Comment on above: Performed By: #### T 7, LIPA, TSH, AMADOU, CMP #### [facility] [address] [place] [address] Dr. Krystle Heaton Eosinophils/100 WBC (Bld) 2.2 % Normal 0.9-7.0 [facility] Comment on above: Performed By: #### T 7, LIPA, TSH, AMADOU, CMP #### [facility] [address] [place] [address] Dr. Krystle Heaton Erythrocyte distribution width (RBC) [Ratio] 13.1 % Normal 11.0-15.0 [facility] Comment on above: Performed By: #### T 7, LIPA, TSH, AMADOU, CMP #### [facility] [address] [place] [address] Dr. Krystle Heaton Hematocrit (Bld) [Volume fraction] 35.2 % Critically low 42.0-54.0 [facility] Comment on above: Performed By: #### T 7, LIPA, TSH, AMADOU, CMP #### [facility] [address] [place] [address] Dr. Krystle Heaton Hemoglobin (Bld) [Mass/Vol] 11.8 g/dL Critically low 14.0-18.0 [facility] Comment on above: Performed By: #### T 7, LIPA, TSH, AMADOU, CMP #### [facility] [address] [place] [address] Dr. Krystle Heaton IG # 0.01 10e3/ul Normal 0.00-0.03 [facility] Comment on above: Performed By: #### T 7, LIPA, TSH, AMADOU, CMP #### [facility] [address] [place] [address] Dr. Krystle Heaton IG % 0.2 % Normal 0.0-0.5 [facility] Comment on above: Performed By: #### T 7, LIPA, TSH, AMADOU, CMP #### [facility] [address] [place] [address] Dr. Krystle Heaton LYMPH # 1.6 103/ul Normal 1.2-3.8 [facility] Comment on above: Performed By: #### T 7, LIPA, TSH, AMADOU, CMP #### [facility] [address] [place] [address] Dr. Krystle Heaton Lymphocytes/100 WBC (Bld) 35.1 % Normal 20.5-60.0 [facility] Comment on above: Performed By: #### T 7, LIPA, TSH, AMADOU, CMP #### [facility] [address] [place] [address] Dr. Krystle Heaton MANUAL DIFF REQ NO Normal [facility] Comment on above: Performed By: #### T 7, LIPA, TSH, AMADOU, CMP #### [facility] [address] [place] [address] Dr. Krystle Heaton MCH (RBC) [Entitic mass] 36.6 pg Critically high 25.9-34.0 [facility] Comment on above: Performed By: #### T 7, LIPA, TSH, AMADOU, CMP #### [facility] [address] [place] [address] Dr. Krystle Heaton MCHC (RBC) [Mass/Vol] 33.5 g/dL Normal 29.9-35.2 [facility] Comment on above: Performed By: #### T 7, LIPA, TSH, AMADOU, CMP #### [facility] [address] [place] [address] Dr. Krystle Heaton MCV (RBC) [Entitic vol] 109.3 fL Critically high 80.0-94.0 [facility] Comment on above: Performed By: #### T 7, LIPA, TSH, AMADOU, CMP #### [facility] [address] [place] [address] Dr. Krystle Heaton MONO # 0.5 103/ul Normal 0.3-0.8 [facility] Comment on above: Performed By: #### T 7, LIPA, TSH, AMADOU, CMP #### [facility] [address] [place] [address] Dr. Krystle Heaton Monocytes/100 WBC (Bld) 11.0 % Normal 1.7-12.0 [facility] Comment on above: Performed By: #### T 7, LIPA, TSH, AMADOU, CMP #### [facility] [address] [place] [address] Dr. Krystle Heaton NEUT # 2.2 103/ul Normal 1.4-6.5 [facility] Comment on above: Performed By: #### T 7, LIPA, TSH, AMADOU, CMP #### [facility] [address] [place] [address] Dr. Krystle Heaton Neutrophils/100 WBC (Bld) 50.4 % Normal 43.0-75.0 [facility] Comment on above: Performed By: #### T 7, LIPA, TSH, AMADOU, CMP #### [facility] [address] [place] [address] Dr. Krystle Heaton Platelet mean volume (Bld) [Entitic vol] 10.9 fL Normal 9.5-13.5 [facility] Comment on above: Performed By: #### T 7, LIPA, TSH, AMADOU, CMP #### [facility] [address] [place] [address] Dr. Krystle Heaton PLT 158 103/ul Normal 150-450 [facility] Comment on above: Performed By: #### T 7, LIPA, TSH, AMADOU, CMP #### [facility] [address] [place] [address] Dr. Krystle Heaton RBC 3.22 106/ul Critically low 4.70-6.10 [facility] Comment on above: Performed By: #### T 7, LIPA, TSH, AMADOU, CMP #### [facility] [address] [place] [address] Dr. Krystle Heaton WBC 4.5 103/ul Normal 4.0-11.0 [facility] Comment on above: Performed By: #### T 7, LIPA, TSH, AMADOU, CMP #### [facility] [address] [place] [address] Dr. Krystle Heaton FERRITINon 04-18-2021 Ferritin [Mass/Vol] ng/mL Critically high 17.9-464.0 [facility] Comment on above: Performed By: #### H BSANS #### [facility] [address] [place] [address] Billy Devlin CBC AUTO DIFFon 04-13-2021 BASO # 0.0 103/ul Normal 0.0-0.1 [facility] Comment on above: Performed By: #### T 7, LIPA, TSH, AMADOU, CMP #### [facility] [address] [place] [address] Dr. Krystle Heaton Basophils/100 WBC (Bld) 0.6 % Normal 0.2-2.0 [facility] Comment on above: Performed By: #### T 7, LIPA, TSH, AMADOU, CMP #### [facility] [address] [place] [address] Dr. Krystle Heaton EO # 0.1 103/ul Normal 0.0-0.7 [facility] Comment on above: Performed By: #### T 7, LIPA, TSH, AMADOU, CMP #### [facility] [address] [place] [address] Dr. Krystle Heaton Eosinophils/100 WBC (Bld) 3.2 % Normal 0.9-7.0 [facility] Comment on above: Performed By: #### T 7, LIPA, TSH, AMADOU, CMP #### [facility] [address] [place] [address] Dr. Krystle Heaton Erythrocyte distribution width (RBC) [Ratio] 13.6 % Normal 11.0-15.0 [facility] Comment on above: Performed By: #### T 7, LIPA, TSH, AMADOU, CMP #### [facility] [address] [place] [address] Dr. Krystle Heaton Hematocrit (Bld) [Volume fraction] 35.3 % Critically low 42.0-54.0 [facility] Comment on above: Performed By: #### T 7, LIPA, TSH, AMADOU, CMP #### [facility] [address] [place] [address] Dr. Krystle Heaton Hemoglobin (Bld) [Mass/Vol] 11.9 g/dL Critically low 14.0-18.0 [facility] Comment on above: Performed By: #### T 7, LIPA, TSH, AMADOU, CMP #### [facility] [address] [place] [address] Dr. Krystle Heaton IG # 0.01 10e3/ul Normal 0.00-0.03 [facility] Comment on above: Performed By: #### T 7, LIPA, TSH, AMADOU, CMP #### [facility] [address] [address] [address] Krystle Heaton IG % 0.3 % Normal 0.0-0.5 [facility] Comment on above: Performed By: #### T 7, LIPA, TSH, AMADOU, CMP #### [facility] [address] [address] [address] Krystle Heaton LYMPH # 1.1 103/ul Critically low 1.2-3.8 [facility] Comment on above: Performed By: #### T 7, LIPA, TSH, AMADOU, CMP #### [facility] [address] [place] [address] Dr. Krystle Heaton Lymphocytes/100 WBC (Bld) 35.1 % Normal 20.5-60.0 [facility] Comment on above: Performed By: #### T 7, LIPA, TSH, AMADOU, CMP #### [facility] [address] [place] [address] Dr. Krystle Heaton MANUAL DIFF REQ NO Normal [facility] Comment on above: Performed By: #### T 7, LIPA, TSH, AMADOU, CMP #### [facility] [address] [place] [address] Dr. Krystle Heaton MCH (RBC) [Entitic mass] 37.1 pg Critically high 25.9-34.0 [facility] Comment on above: Performed By: #### T 7, LIPA, TSH, AMADOU, CMP #### [facility] [address] [place] [address] Dr. Krystle Heaton MCHC (RBC) [Mass/Vol] 33.7 g/dL Normal 29.9-35.2 [facility] Comment on above: Performed By: #### T 7, LIPA, TSH, AMADOU, CMP #### [facility] [address] [place] [address] Dr. Krystle Heaton MCV (RBC) [Entitic vol] 110.0 fL Critically high 80.0-94.0 [facility] Comment on above: Result Comment: macr ocytosis 3+ Performed By: #### T 7, LIPA, TSH, AMADOU, CMP #### [facility] [address] [place] [address] Dr. Krystle Heaton MONO # 0.3 103/ul Normal 0.3-0.8 [facility] Comment on above: Performed By: #### T 7, LIPA, TSH, AMADOU, CMP #### [facility] [address] [place] [address] Dr. Krystle Heaton Monocytes/100 WBC (Bld) 10.7 % Normal 1.7-12.0 [facility] Comment on above: Performed By: #### T 7, LIPA, TSH, AMADOU, CMP #### [facility] [address] [place] [address] Dr. Krystle Heaton NEUT # 1.5 103/ul Normal 1.4-6.5 [facility] Comment on above: Performed By: #### T 7, LIPA, TSH, AMADOU, CMP #### [facility] [address] [place] [address] Dr. Krystle Heaton Neutrophils/100 WBC (Bld) 50.1 % Normal 43.0-75.0 [facility] Comment on above: Performed By: #### T 7, LIPA, TSH, AMADOU, CMP #### [facility] [address] [place] [address] Dr. Krystle Heaton Platelet mean volume (Bld) [Entitic vol] 10.8 fL Normal 9.5-13.5 [facility] Comment on above: Performed By: #### T 7, LIPA, TSH, AMADOU, CMP #### [facility] [address] [place] [address] Dr. Krystle Heaton PLT 131 103/ul Critically low 150-450 [facility] Comment on above: Performed By: #### T 7, LIPA, TSH, AMADOU, CMP #### [facility] [address] [place] [address] Dr. Krystle Heaton RBC 3.21 106/ul Critically low 4.70-6.10 [facility] Comment on above: Performed By: #### T 7, LIPA, TSH, AMADOU, CMP #### [facility] [address] [place] [address] Dr. Krystle Heaton WBC 3.1 103/ul Critically low 4.0-11.0 [facility] Comment on above: Performed By: #### T 7, LIPA, TSH, AMADOU, CMP #### [facility] [address] [address] [address] Krystle Heaton FERRITINon 04-13-2021 Ferritin [Mass/Vol] ng/mL Critically high 17.9-464.0 [facility] Comment on above: Performed By: #### F ERR #### [facility] [address] [address] [address] Krystle Heaton Initial Visit (Gastroenterol ogy)on [...] 04-06-2021 BASO # 0.0 103/ul Normal 0.0-0.1 [facility] Comment on above: Performed By: #### H BSANS #### [facility] [address] [place], [place] [address] Billy Devlin Basophils/100 WBC (Bld) 0.9 % Normal 0.2-2.0 [facility] Comment on above: Performed By: #### H BSANS #### [facility] [address] [place], [place] [address] Billy Quita EO # 0.1 103/ul Normal 0.0-0.7 [facility] Comment on above: Performed By: #### H BSANS #### [facility] [address] [place] [address] Billy Quita Eosinophils/100 WBC (Bld) 3.0 % Normal 0.9-7.0 [facility] Comment on above: Performed By: #### H BSANS #### [facility] [address] [place] [address] Billy Quita Erythrocyte distribution width (RBC) [Ratio] 13.6 % Normal 11.0-15.0 [facility] Comment on above: Performed By: #### H ANJUMNS #### [facility] [address] [place] [address] Billy Quita Hematocrit (Bld) [Volume fraction] 39.1 % Critically low 42.0-54.0 [facility] Comment on above: Performed By: #### H ALEXANDER #### [facility] [address] [place] [address] Billy Quita Hemoglobin (Bld) [Mass/Vol] 13.1 g/dL Critically low 14.0-18.0 [facility] Comment on above: Performed By: #### H BSANS #### [facility] [address] [place] [address] Billy Quita IG # 0.02 10e3/ul Normal 0.00-0.03 [facility] Comment on above: Performed By: #### H BSANS #### [facility] [address] [place] [address] Billy Quita IG % 0.5 % Normal 0.0-0.5 [facility] Comment on above: Performed By: #### H BSANS #### [facility] [address] [place] [address] Billy Quita LYMPH # 1.1 103/ul Critically low 1.2-3.8 [facility] Comment on above: Performed By: #### H BSASUZANNE #### [facility] [address] [place] [address] Billy Quita Lymphocytes/100 WBC (Bld) 26.7 % Normal 20.5-60.0 [facility] Comment on above: Performed By: #### H ALEXANDER #### [facility] [address] [place] [address] Billy Devlin MANUAL DIFF REQ NO Normal [facility] Comment on above: Performed By: #### H ALEXANDER #### [facility] [address] [place] [address] Billycarrillo Devlin MCH (RBC) [Entitic mass] 36.7 pg Critically high 25.9-34.0 [facility] Comment on above: Performed By: #### H ALEXANDER #### [facility] [address] [place] [address] Billycarrillo Devlin MCHC (RBC) [Mass/Vol] 33.5 g/dL Normal 29.9-35.2 [facility] Comment on above: Result Comment: macr ocytosis Performed By: #### H ALEXANDER #### [facility] [address] [place] [address] Billy Quita MCV (RBC) [Entitic vol] 109.5 fL Critically high 80.0-94.0 [facility] Comment on above: Performed By: #### H ALEXANDER #### [facility] [address] [place] [address] Billy Quita MONO # 0.4 103/ul Normal 0.3-0.8 [facility] Comment on above: Performed By: #### H ALEXANDER #### [facility] [address] [place] [address] Billy Quita Monocytes/100 WBC (Bld) 8.7 % Normal 1.7-12.0 [facility] Comment on above: Performed By: #### H ALEXANDER #### [facility] [address] [place] [address] Billy Quita NEUT # 2.6 103/ul Normal 1.4-6.5 [facility] Comment on above: Performed By: #### H ALEXANDER #### [facility] [address] [place] [address] Billy Devlin Neutrophils/100 WBC (Bld) 60.2 % Normal 43.0-75.0 [facility] Comment on above: Performed By: #### H ALEXANDER #### [facility] [address] [place] [address] Billy Devlin Platelet mean volume (Bld) [Entitic vol] 11.1 fL Normal 9.5-13.5 [facility] Comment on above: Performed By: #### H ALEXANDER #### [facility] [address] [place] [address] Billy Devlin PLT 162 103/ul Normal 150-450 [facility] Comment on above: Performed By: #### H ALEXANDER #### [facility] [address] [place] [address] Billy Devlin RBC 3.57 106/ul Critically low 4.70-6.10 [facility] Comment on above: Performed By: #### H ALEXANDER #### [facility] [address] [place] [address] Billy Devlin WBC 4.3 103/ul Normal 4.0-11.0 [facility] Comment on above: Performed By: #### H ALEXANDER #### [facility] [address] [place] [address] Billy Devlin FERRITINon 04-06-2021 Ferritin [Mass/Vol] ng/mL Critically high 17.9-464.0 [facility] Comment on above: Performed By: #### T 7, LIPA, TSH, AMADOU, CMP #### [facility] [address] [place] [address] Dr. Krystle Heaton FREE T4on 04-06-2021 Free T4 [Mass/Vol] 0.73 ng/dL Critically low 0.78-2.19 [facility] Comment on above: Performed By: #### T 7, LIPA, TSH, AMADOU, CMP #### [facility] [address] [place] [address] Dr. Krystle Heaton IRON AND TIBCon 04-06-2021 % SATURATION 54.8 % Normal [facility] Comment on above: Performed By: #### T 7, LIPA, TSH, AMADOU, CMP #### [facility] [address] [address] [address] Krystle Heaton Iron [Mass/Vol] 161.0 ug/dL Normal 49.0-181.0 [facility] Comment on above: Performed By: #### T 7, LIPA, TSH, AMADOU, CMP #### [facility] [address] [place] [address] Dr. Krystle Haeton TIBC DIRECT 294.0 ug/dL Normal 261.0-497.0 [facility] Comment on above: Performed By: #### T 7, LIPA, TSH, AMADOU, CMP #### [facility] [address] [place] [address] Dr. Krystle Heaton PROF 14(COMP METB)on 021 Albumin [Mass/Vol] 3.7 g/dL Normal 3.5-5.0 [facility] Comment on above: Performed By: #### T 7, LIPA, TSH, AMADOU, CMP #### [facility] [address] [place] [address] Dr. Krystle Heaton Albumin/Globulin [Mass ratio] 1.0 {ratio} Normal [facility] Comment on above: Performed By: #### T 7, LIPA, TSH, AMADOU, CMP #### [facility] [address] [place] [address] Dr. Krystle Heaton ALP [Catalytic activity/Vol] 83 U/L Normal 38-126 [facility] Comment on above: Performed By: #### T 7, LIPA, TSH, AMADOU, CMP #### [facility] [address] [place] [address] Dr. Krystle Heaton ALT [Catalytic activity/Vol] 140 U/L Critically high 21-72 [facility] Comment on above: Performed By: #### T 7, LIPA, TSH, AMADOU, CMP #### [facility] [address] [place] [address] Dr. Krystle Heaton Anion gap [Moles/Vol] 15.8 mmol/L Normal [facility] Comment on above: Performed By: #### T 7, LIPA, TSH, AMADOU, CMP #### [facility] [address] [place] [address] Dr. Krystle Heaton AST [Catalytic activity/Vol] 186 U/L Critically high 17-59 [facility] Comment on above: Performed By: #### T 7, LIPA, TSH, AMADOU, CMP #### [facility] [address] [place] [address] Dr. Krystle Heaton Bilirubin [Mass/Vol] 0.5 mg/dL Normal 0.2-1.3 [facility] Comment on above: Performed By: #### T 7, LIPA, TSH, AMADOU, CMP #### [facility] [address] [place] [address] Dr. Krystle Heaton Calcium [Mass/Vol] 9.0 mg/dL Normal 8.4-10.2 [facility] Comment on above: Performed By: #### T 7, LIPA, TSH, AMADOU, CMP #### [facility] [address] [place] [address] Dr. Krystle Heaton Chloride [Moles/Vol] 101 mmol/L Normal 98-107 [facility] Comment on above: Performed By: #### T 7, LIPA, TSH, AMADOU, CMP #### [facility] [address] [place] [address] Dr. Krystle Heaton CO2 [Moles/Vol] 25.8 mmol/L Normal 22.0-30.0 [facility] Comment on above: Performed By: #### T 7, LIPA, TSH, AMADOU, CMP #### [facility] [address] [place] [address] Dr. Krystle Heaton Creatinine [Mass/Vol] 1.07 mg/dL Normal 0.66-1.25 [facility] Comment on above: Performed By: #### T 7, LIPA, TSH, AMADOU, CMP #### [facility] [address] [place] [address] Dr. Krystle Heaton EGFR-AF ANDORRAN >60 Normal >=60 [facility] Comment on above: Performed By: #### T 7, LIPA, TSH, AMADOU, CMP #### [facility] [address] [place] [address] Dr. Krystle Heaton EGFR-NON AF ANDORRAN >60 Normal >=60 [facility] Comment on above: Performed By: #### T 7, LIPA, TSH, AMADOU, CMP #### [facility] [address] [place] [address] Dr. Krystle Heaton Globulin (S) [Mass/Vol] 3.7 g/dL Normal [facility] Comment on above: Performed By: #### T 7, LIPA, TSH, AMADOU, CMP #### [facility] [address] [place] [address] Dr. Krystle Heaton Glucose [Mass/Vol] 104 mg/dL Normal 74-106 [facility] Comment on above: Performed By: #### T 7, LIPA, TSH, AMADOU, CMP #### [facility] [address] [place] [address] Dr. Krystle Heaton Potassium [Moles/Vol] 4.6 mmol/L Normal 3.4-5.0 [facility] Comment on above: Performed By: #### T 7, LIPA, TSH, AMADOU, CMP #### [facility] [address] [place] [address] Dr. Krystle Heaton Protein [Mass/Vol] 7.4 g/dL Normal 6.1-8.2 [facility] Comment on above: Performed By: #### T 7, LIPA, TSH, AMADOU, CMP #### [facility] [address] [place] [address] Dr. Krystle Heaton Sodium [Moles/Vol] 138 mmol/L Normal 137-145 [facility] Comment on above: Performed By: #### T 7, LIPA, TSH, AMADOU, CMP #### [facility] [address] [place] [address] Dr. Krystle Heaton Urea nitrogen [Mass/Vol] 10.0 mg/dL Normal 9.0-20.0 [facility] Comment on above: Performed By: #### T 7, LIPA, TSH, AMADOU, CMP #### [facility] [address] [place] [address] Dr. Krystle Heaton Urea nitrogen/Creatinine [Mass ratio] 9.3 mg/mg Normal [facility] Comment on above: Performed By: #### T 7, LIPA, TSH, AMADOU, CMP #### [facility] [address] [place] [address] Dr. Krystle Heaton TSHon 04-06-2021 TSH 1.945 uIU/mL Normal 0.470-4.680 [facility] Comment on above: Performed By: #### T 7, LIPA, TSH, AMADOU, CMP #### [facility] [address] [place] [address] Dr. Krystle Heaton TSH RANGE SEE BELOW Normal [facility] Comment on above: Result Comment: <0.3 4 UIU/ml HYPERTHYROID 0.34-5.60 UIU/ml EUTHYROID >5.60 UIU/ml HYPOTHYROID Performed By: #### T 7, LIPA, TSH, AMADOU, CMP #### [facility] [address] [place] [address] Dr. Krystle Heaton CBC AUTO DIFFon 03-30-2021 BASO # 0.0 103/ul Normal 0.0-0.1 [facility] Comment on above: Performed By: #### T 7, LIPA, TSH, AMADOU, CMP #### [facility] [address] [place] [address] Dr. Krystle Heaton Basophils/100 WBC (Bld) 0.8 % Normal 0.2-2.0 [facility] Comment on above: Performed By: #### T 7, LIPA, TSH, AMADOU, CMP #### [facility] [address] [place] [address] Dr. Krystle Heaton EO # 0.1 103/ul Normal 0.0-0.7 [facility] Comment on above: Performed By: #### T 7, LIPA, TSH, AMADOU, CMP #### [facility] [address] [place] [address] Dr. Krystle Heaton Eosinophils/100 WBC (Bld) 3.0 % Normal 0.9-7.0 [facility] Comment on above: Performed By: #### T 7, LIPA, TSH, AMADOU, CMP #### [facility] [address] [place] [address] Dr. Krystle Heaton Erythrocyte distribution width (RBC) [Ratio] 13.9 % Normal 11.0-15.0 [facility] Comment on above: Performed By: #### T 7, LIPA, TSH, AMADOU, CMP #### [facility] [address] [place] [address] Dr. Krystle Heaton Hematocrit (Bld) [Volume fraction] 40.4 % Critically low 42.0-54.0 [facility] Comment on above: Performed By: #### T 7, LIPA, TSH, AMADOU, CMP #### [facility] [address] [place] [address] Dr. Krystle Heaton Hemoglobin (Bld) [Mass/Vol] 13.5 g/dL Critically low 14.0-18.0 [facility] Comment on above: Performed By: #### T 7, LIPA, TSH, AMADOU, CMP #### [facility] [address] [place] [address] Dr. Krystle Heaton IG # 0.01 10e3/ul Normal 0.00-0.03 [facility] Comment on above: Performed By: #### T 7, LIPA, TSH, AMADOU, CMP #### [facility] [address] [place] [address] Dr. Krystle Heaton IG % 0.3 % Normal 0.0-0.5 [facility] Comment on above: Performed By: #### T 7, LIPA, TSH, AMADOU, CMP #### [facility] [address] [place] [address] Dr. Krystle Heaton LYMPH # 1.2 103/ul Normal 1.2-3.8 [facility] Comment on above: Performed By: #### T 7, LIPA, TSH, AMADOU, CMP #### [facility] [address] [place] [address] Dr. Krystle Heaton Lymphocytes/100 WBC (Bld) 32.7 % Normal 20.5-60.0 [facility] Comment on above: Performed By: #### T 7, LIPA, TSH, AMADOU, CMP #### [facility] [address] [place] [address] Dr. Krystle Heaton MANUAL DIFF REQ NO Normal [facility] Comment on above: Performed By: #### T 7, LIPA, TSH, AMADOU, CMP #### [facility] [address] [place] [address] Dr. Krystle Heaton MCH (RBC) [Entitic mass] 36.5 pg Critically high 25.9-34.0 [facility] Comment on above: Performed By: #### T 7, LIPA, TSH, AMADOU, CMP #### [facility] [address] [place] [address] Dr. Krystle Heaton MCHC (RBC) [Mass/Vol] 33.4 g/dL Normal 29.9-35.2 [facility] Comment on above: Result Comment: MACR OCYTOSIS PRESENT Performed By: #### T 7, LIPA, TSH, AMADOU, CMP #### [facility] [address] [place] [address] Dr. Krystle Heaton MCV (RBC) [Entitic vol] 109.2 fL Critically high 80.0-94.0 [facility] Comment on above: Performed By: #### T 7, LIPA, TSH, AMADOU, CMP #### [facility] [address] [place] [address] Dr. Krystle Heaton MONO # 0.4 103/ul Normal 0.3-0.8 [facility] Comment on above: Performed By: #### T 7, LIPA, TSH, AMADOU, CMP #### [facility] [address] [place] [address] Dr. Krystle Heaton Monocytes/100 WBC (Bld) 11.4 % Normal 1.7-12.0 [facility] Comment on above: Performed By: #### T 7, LIPA, TSH, AMADOU, CMP #### [facility] [address] [place] [address] Dr. Krystle Heaton NEUT # 1.9 103/ul Normal 1.4-6.5 [facility] Comment on above: Performed By: #### T 7, LIPA, TSH, AMADOU, CMP #### [facility] [address] [place] [address] Dr. Krystle Heaton Neutrophils/100 WBC (Bld) 51.8 % Normal 43.0-75.0 [facility] Comment on above: Performed By: #### T 7, LIPA, TSH, AMADOU, CMP #### [facility] [address] [place] [address] Dr. Krystle Heaton Platelet mean volume (Bld) [Entitic vol] 10.8 fL Normal 9.5-13.5 [facility] Comment on above: Performed By: #### T 7, LIPA, TSH, AMADOU, CMP #### [facility] [address] [place] [address] Dr. Krystle Heaton PLT 184 103/ul Normal 150-450 [facility] Comment on above: Performed By: #### T 7, LIPA, TSH, AMADOU, CMP #### [facility] [address] [place] [address] Dr. Krystle Heaton RBC 3.70 106/ul Critically low 4.70-6.10 [facility] Comment on above: Performed By: #### T 7, LIPA, TSH, AMADOU, CMP #### [facility] [address] [place] [address] Dr. Krystle Heaton WBC 3.6 103/ul Critically low 4.0-11.0 [facility] Comment on above: Performed By: #### T 7, LIPA, TSH, AMADOU, CMP #### [facility] [address] [place] [address] Dr. Krystle Heaton FERRITINon 03-30-2021 Ferritin [Mass/Vol] ng/mL Critically high 17.9-464.0 [facility] Comment on above: Performed By: #### F ERR #### [facility] [address] [place] [address] Dr. Krystle Heaton FREE T4on 03-30-2021 Free T4 [Mass/Vol] 0.83 ng/dL Normal 0.78-2.19 [facility] Comment on above: Performed By: #### F ERR #### [facility] [address] [address] [address] Krystle Heaton IRON AND TIBCon 03-30-2021 % SATURATION 78.5 % Normal [facility] Comment on above: Performed By: #### F ERR #### [facility] [address] [address] [address] Krystle Heaton Iron [Mass/Vol] 230.0 ug/dL Critically high 49.0-181.0 [facility] Comment on above: Performed By: #### F ERR #### [facility] [address] [place] [address] Dr. Krystle Heaton TIBC DIRECT 293.0 ug/dL Normal 261.0-497.0 [facility] Comment on above: Performed By: #### F ERR #### [facility] [address] [place] [address] Dr. Krystle Heaton PROF 14(COMP METB)on 021 Albumin [Mass/Vol] 3.8 g/dL Normal 3.5-5.0 [facility] Comment on above: Performed By: #### T 7, LIPA, TSH, AMADOU, CMP #### [facility] [address] [place] [address] Dr. Krystle Heaton Albumin/Globulin [Mass ratio] 1.0 {ratio} Normal [facility] Comment on above: Performed By: #### T 7, LIPA, TSH, AMADOU, CMP #### [facility] [address] [place] [address] Dr. Krystle Heaton ALP [Catalytic activity/Vol] 90 U/L Normal 38-126 [facility] Comment on above: Performed By: #### T 7, LIPA, TSH, AMADOU, CMP #### [facility] [address] [place] [address] Dr. Krystle Heaton ALT [Catalytic activity/Vol] 149 U/L Critically high 21-72 [facility] Comment on above: Performed By: #### T 7, LIPA, TSH, AMADOU, CMP #### [facility] [address] [place] [address] Dr. Krystle Heaton Anion gap [Moles/Vol] 16.0 mmol/L Normal [facility] Comment on above: Performed By: #### T 7, LIPA, TSH, AMADOU, CMP #### [facility] [address] [address] [address] Krystle Heaton AST [Catalytic activity/Vol] 187 U/L Critically high 17-59 [facility] Comment on above: Performed By: #### T 7, LIPA, TSH, AMADOU, CMP #### [facility] [address] [address] [address] Krystle Heaton Bilirubin [Mass/Vol] 0.6 mg/dL Normal 0.2-1.3 [facility] Comment on above: Performed By: #### T 7, LIPA, TSH, AMADOU, CMP #### [facility] [address] [place] [address] Dr. Krystle Heaton Calcium [Mass/Vol] 9.2 mg/dL Normal 8.4-10.2 [facility] Comment on above: Performed By: #### T 7, LIPA, TSH, AMADOU, CMP #### [facility] [address] [address] [address] Krystle Heaton Chloride [Moles/Vol] 100 mmol/L Normal 98-107 [facility] Comment on above: Performed By: #### T 7, LIPA, TSH, AMADOU, CMP #### [facility] [address] [address] [address] Krystle Heaton CO2 [Moles/Vol] 26.2 mmol/L Normal 22.0-30.0 [facility] Comment on above: Performed By: #### T 7, LIPA, TSH, AMADOU, CMP #### [facility] [address] [address] [address] Krystle Heaton Creatinine [Mass/Vol] 1.07 mg/dL Normal 0.66-1.25 [facility] Comment on above: Performed By: #### T 7, LIPA, TSH, AMADOU, CMP #### [facility] [address] [address] [address] Krystle Heaton EGFR-AF ANDORRAN >60 Normal >=60 [facility] Comment on above: Performed By: #### T 7, LIPA, TSH, AMADOU, CMP #### [facility] [address] [place] [address] Dr. Krystle Heaton EGFR-NON AF ANDORRAN >60 Normal >=60 [facility] Comment on above: Performed By: #### T 7, LIPA, TSH, AMADOU, CMP #### [facility] [address] [place] [address] Dr. Krystle Heaton Globulin (S) [Mass/Vol] 3.8 g/dL Normal [facility] Comment on above: Performed By: #### T 7, LIPA, TSH, AMADOU, CMP #### [facility] [address] [place] [address] Dr. Krystle Heaton Glucose [Mass/Vol] 110 mg/dL Critically high 74-106 [facility] Comment on above: Performed By: #### T 7, LIPA, TSH, AMADOU, CMP #### [facility] [address] [place] [address] Dr. Krystle Heaton Potassium [Moles/Vol] 4.2 mmol/L Normal 3.4-5.0 [facility] Comment on above: Performed By: #### T 7, LIPA, TSH, AMADOU, CMP #### [facility] [address] [place] [address] Dr. Krystle Heaton Protein [Mass/Vol] 7.6 g/dL Normal 6.1-8.2 [facility] Comment on above: Performed By: #### T 7, LIPA, TSH, AMADOU, CMP #### [facility] [address] [place] [address] Dr. Krystle Heaton Sodium [Moles/Vol] 138 mmol/L Normal 137-145 [facility] Comment on above: Performed By: #### T 7, LIPA, TSH, AMADOU, CMP #### [facility] [address] [place] [address] Dr. Krystle Heaton Urea nitrogen [Mass/Vol] 9.0 mg/dL Normal 9.0-20.0 [facility] Comment on above: Performed By: #### T 7, LIPA, TSH, AMADOU, CMP #### [facility] [address] [place] [address] Dr. Krystle Heaton Urea nitrogen/Creatinine [Mass ratio] 8.4 mg/mg Normal [facility] Comment on above: Performed By: #### T 7, LIPA, TSH, AMADOU, CMP #### [facility] [address] [place] [address] Dr. Krystle Heaton TSHon 03-30-2021 TSH 1.030 uIU/mL Normal 0.470-4.680 [facility] Comment on above: Performed By: #### T 7, LIPA, TSH, AMADOU, CMP #### [facility] [address] [place] [address] Dr. Krystle Heaton TSH RANGE SEE BELOW Normal [facility] Comment on above: Result Comment: <0.3 4 UIU/ml HYPERTHYROID 0.34-5.60 UIU/ml EUTHYROID >5.60 UIU/ml HYPOTHYROID Performed By: #### T 7, LIPA, TSH, AMADOU, CMP #### [facility] [address] [place] [address] Dr. Krystle Heaton CBC AUTO DIFFon 03-22-2021 BASO # 0.0 103/ul Normal 0.0-0.1 [facility] Comment on above: Performed By: #### T 7, LIPA, TSH, AMADOU, CMP #### [facility] [address] [place] [address] Dr. Krystle Heaton Basophils/100 WBC (Bld) 0.6 % Normal 0.2-2.0 [facility] Comment on above: Performed By: #### T 7, LIPA, TSH, AMADOU, CMP #### [facility] [address] [place] [address] Dr. Krystle Heaton EO # 0.1 103/ul Normal 0.0-0.7 [facility] Comment on above: Performed By: #### T 7, LIPA, TSH, AMADOU, CMP #### [facility] [address] [place] [address] Dr. Krystle Heaton Eosinophils/100 WBC (Bld) 2.1 % Normal 0.9-7.0 [facility] Comment on above: Performed By: #### T 7, LIPA, TSH, AMADOU, CMP #### [facility] [address] [place] [address] Dr. Krystle Heaton Erythrocyte distribution width (RBC) [Ratio] 12.7 % Normal 11.0-15.0 [facility] Comment on above: Performed By: #### T 7, LIPA, TSH, AMADOU, CMP #### [facility] [address] [place] [address] Dr. Krystle Heaton Hematocrit (Bld) [Volume fraction] 37.5 % Critically low 42.0-54.0 [facility] Comment on above: Performed By: #### T 7, LIPA, TSH, AMADOU, CMP #### [facility] [address] [place] [address] Dr. Krystle Heaton Hemoglobin (Bld) [Mass/Vol] 13.1 g/dL Critically low 14.0-18.0 [facility] Comment on above: Performed By: #### T 7, LIPA, TSH, AMADOU, CMP #### [facility] [address] [place] [address] Dr. Krystle Heaton IG # 0.01 10e3/ul Normal 0.00-0.03 [facility] Comment on above: Performed By: #### T 7, LIPA, TSH, AMADOU, CMP #### [facility] [address] [place] [address] Dr. Krystle Heaton IG % 0.3 % Normal 0.0-0.5 [facility] Comment on above: Performed By: #### T 7, LIPA, TSH, AMADOU, CMP #### [facility] [address] [place] [address] Dr. Krystle Heaton LYMPH # 1.2 103/ul Normal 1.2-3.8 [facility] Comment on above: Performed By: #### T 7, LIPA, TSH, AMADOU, CMP #### [facility] [address] [place] [address] Dr. Krystle Heaton Lymphocytes/100 WBC (Bld) 35.7 % Normal 20.5-60.0 [facility] Comment on above: Performed By: #### T 7, LIPA, TSH, AMADOU, CMP #### [facility] [address] [place] [address] Dr. Krystle Heaton MANUAL DIFF REQ NO Normal [facility] Comment on above: Performed By: #### T 7, LIPA, TSH, AMADOU, CMP #### [facility] [address] [place] [address] Dr. Krystle Heaton MCH (RBC) [Entitic mass] 37.0 pg Critically high 25.9-34.0 [facility] Comment on above: Performed By: #### T 7, LIPA, TSH, AMADOU, CMP #### [facility] [address] [place] [address] Dr. Krystle Heaton MCHC (RBC) [Mass/Vol] 34.9 g/dL Normal 29.9-35.2 [facility] Comment on above: Performed By: #### T 7, LIPA, TSH, AMADOU, CMP #### [facility] [address] [place] [address] Dr. Krystle Heaton MCV (RBC) [Entitic vol] 105.9 fL Critically high 80.0-94.0 [facility] Comment on above: Performed By: #### T 7, LIPA, TSH, AMADOU, CMP #### [facility] [address] [place] [address] Dr. Krystle Heaton MONO # 0.2 103/ul Critically low 0.3-0.8 [facility] Comment on above: Performed By: #### T 7, LIPA, TSH, AMADOU, CMP #### [facility] [address] [place] [address] Dr. Krystle Heaton Monocytes/100 WBC (Bld) 6.8 % Normal 1.7-12.0 [facility] Comment on above: Performed By: #### T 7, LIPA, TSH, AMADOU, CMP #### [facility] [address] [place] [address] Dr. Krystle Heaton NEUT # 1.8 103/ul Normal 1.4-6.5 [facility] Comment on above: Performed By: #### T 7, LIPA, TSH, AMADOU, CMP #### [facility] [address] [place] [address] Dr. Krystle Heaton Neutrophils/100 WBC (Bld) 54.5 % Normal 43.0-75.0 [facility] Comment on above: Performed By: #### T 7, LIPA, TSH, AMADOU, CMP #### [facility] [address] [address] [address] Krystle Heaton Platelet mean volume (Bld) [Entitic vol] 10.4 fL Normal 9.5-13.5 [facility] Comment on above: Performed By: #### T 7, LIPA, TSH, AMADOU, CMP #### [facility] [address] [place] [address] Dr. Krystle Heaton PLT 126 103/ul Critically low 150-450 [facility] Comment on above: Performed By: #### T 7, LIPA, TSH, AMADOU, CMP #### [facility] [address] [place] [address] Dr. Krystle Heaton RBC 3.54 106/ul Critically low 4.70-6.10 [facility] Comment on above: Performed By: #### T 7, LIPA, TSH, AMADOU, CMP #### [facility] [address] [place] [address] Dr. Krystle Heaton WBC 3.4 103/ul Critically low 4.0-11.0 [facility] Comment on above: Performed By: #### T 7, LIPA, TSH, AMADOU, CMP #### [facility] [address] [place] [address] Dr. Krystle Heaton FERRITINon 03-22-2021 Ferritin [Mass/Vol] ng/mL Critically high 17.9-464.0 [facility] Comment on above: Performed By: #### T 7, LIPA, TSH, AMADOU, CMP #### [facility] [address] [place] [address] Dr. Krystle Heaton FREE T4on 03-22-2021 Free T4 [Mass/Vol] 0.78 ng/dL Normal 0.78-2.19 [facility] Comment on above: Performed By: #### T 7, LIPA, TSH, AMADOU, CMP #### [facility] [address] [place] [address] Dr. Krystle Heaton IRON AND TIBCon 03-22-2021 % SATURATION 106.0 % Normal [facility] Comment on above: Performed By: #### T 7, LIPA, TSH, AMADOU, CMP #### [facility] [address] [place] [address] Dr. Krystle Heaton Iron [Mass/Vol] 233.0 ug/dL Critically high 49.0-181.0 [facility] Comment on above: Performed By: #### T 7, LIPA, TSH, AMADOU, CMP #### [facility] [address] [place] [address] Dr. Krystle Heaton TIBC DIRECT 220.0 ug/dL Critically low 261.0-497.0 [facility] Comment on above: Performed By: #### T 7, LIPA, TSH, AMADOU, CMP #### [facility] [address] [place] [address] Dr. Krystle Heaton PROF 14(COMP METB)on 021 Albumin [Mass/Vol] 3.5 g/dL Normal 3.5-5.0 [facility] Comment on above: Performed By: #### T 7, LIPA, TSH, AMADOU, CMP #### [facility] [address] [place] [address] Dr. Krystle Heaton Albumin/Globulin [Mass ratio] 1.0 {ratio} Normal [facility] Comment on above: Performed By: #### T 7, LIPA, TSH, AMADOU, CMP #### [facility] [address] [place] [address] Dr. Krystle Heaton ALP [Catalytic activity/Vol] 77 U/L Normal 38-126 [facility] Comment on above: Performed By: #### T 7, LIPA, TSH, AMADOU, CMP #### [facility] [address] [place] [address] Dr. Krystle Heaton ALT [Catalytic activity/Vol] 95 U/L Critically high 21-72 [facility] Comment on above: Performed By: #### T 7, LIPA, TSH, AMADOU, CMP #### [facility] [address] [address] [address] Krystle Heaton Anion gap [Moles/Vol] 17.3 mmol/L Normal [facility] Comment on above: Performed By: #### T 7, LIPA, TSH, AMADOU, CMP #### [facility] [address] [address] [address] Krystle Heaton AST [Catalytic activity/Vol] 161 U/L Critically high 17-59 [facility] Comment on above: Performed By: #### T 7, LIPA, TSH, AMADOU, CMP #### [facility] [address] [place] [address] Dr. Krystle Heaton Bilirubin [Mass/Vol] 0.8 mg/dL Normal 0.2-1.3 [facility] Comment on above: Performed By: #### T 7, LIPA, TSH, AMADOU, CMP #### [facility] [address] [place] [address] Dr. Krystle Heaton Calcium [Mass/Vol] 8.5 mg/dL Normal 8.4-10.2 [facility] Comment on above: Performed By: #### T 7, LIPA, TSH, AMADOU, CMP #### [facility] [address] [place] [address] Dr. Krystle Heaton Chloride [Moles/Vol] 101 mmol/L Normal 98-107 [facility] Comment on above: Performed By: #### T 7, LIPA, TSH, AMADOU, CMP #### [facility] [address] [place] [address] Dr. Krystle Heaton CO2 [Moles/Vol] 22.6 mmol/L Normal 22.0-30.0 [facility] Comment on above: Performed By: #### T 7, LIPA, TSH, AMADOU, CMP #### [facility] [address] [place] [address] Dr. Krystle Heaton Creatinine [Mass/Vol] 0.98 mg/dL Normal 0.66-1.25 [facility] Comment on above: Performed By: #### T 7, LIPA, TSH, AMADOU, CMP #### [facility] [address] [place] [address] Dr. Krystle Heaton EGFR-AF ANDORRAN >60 Normal >=60 [facility] Comment on above: Performed By: #### T 7, LIPA, TSH, AMADOU, CMP #### [facility] [address] [place] [address] Dr. Krystle Heaton EGFR-NON AF ANDORRAN >60 Normal >=60 [facility] Comment on above: Performed By: #### T 7, LIPA, TSH, AMADOU, CMP #### [facility] [address] [place] [address] Dr. Krystle Heaton Globulin (S) [Mass/Vol] 3.4 g/dL Normal [facility] Comment on above: Performed By: #### T 7, LIPA, TSH, AMADOU, CMP #### [facility] [address] [place] [address] Dr. Krystle Heaton Glucose [Mass/Vol] 103 mg/dL Normal 74-106 [facility] Comment on above: Performed By: #### T 7, LIPA, TSH, AMADOU, CMP #### [facility] [address] [place] [address] Dr. Krystle Heaton Potassium [Moles/Vol] 3.9 mmol/L Normal 3.4-5.0 [facility] Comment on above: Performed By: #### T 7, LIPA, TSH, AMADOU, CMP #### [facility] [address] [place] [address] Dr. Krystle Heaton Protein [Mass/Vol] 6.9 g/dL Normal 6.1-8.2 [facility] Comment on above: Performed By: #### T 7, LIPA, TSH, AMADOU, CMP #### [facility] [address] [place] [address] Dr. Krystle Heaton Sodium [Moles/Vol] 137 mmol/L Normal 137-145 [facility] Comment on above: Performed By: #### T 7, LIPA, TSH, AMADOU, CMP #### [facility] [address] [place] [address] Dr. Krystle Heaton Urea nitrogen [Mass/Vol] 8.0 mg/dL Critically low 9.0-20.0 [facility] Comment on above: Performed By: #### T 7, LIPA, TSH, AMADOU, CMP #### [facility] [address] [place] [address] Dr. Krystle Heaton Urea nitrogen/Creatinine [Mass ratio] 8.2 mg/mg Normal [facility] Comment on above: Performed By: #### T 7, LIPA, TSH, AMADOU, CMP #### [facility] [address] [place] [address] Dr. Krystle Heaton TSHon 03-22-2021 TSH 2.059 uIU/mL Normal 0.470-4.680 [facility] Comment on above: Performed By: #### T 7, LIPA, TSH, AMADOU, CMP #### [facility] [address] [place] [address] Dr. Krystle Heaton TSH RANGE SEE BELOW Normal [facility] Comment on above: Result Comment: <0.3 4 UIU/ml HYPERTHYROID 0.34-5.60 UIU/ml EUTHYROID >5.60 UIU/ml HYPOTHYROID Performed By: #### T 7, LIPA, TSH, AMADOU, CMP #### [facility] [address] [place] [address] Dr. Krystle Heaton CBC AUTO DIFFon 03-17-2021 BASO # 0.0 103/ul Normal 0.0-0.1 [facility] Comment on above: Performed By: #### T 7, LIPA, TSH, AMADOU, CMP #### [facility] [address] [place] [address] Dr. Krystle Heaton Basophils/100 WBC (Bld) 0.3 % Normal 0.2-2.0 [facility] Comment on above: Performed By: #### T 7, LIPA, TSH, AMADOU, CMP #### [facility] [address] [place] [address] Dr. Krystle Heaton EO # 0.1 103/ul Normal 0.0-0.7 [facility] Comment on above: Performed By: #### T 7, LIPA, TSH, AMADOU, CMP #### [facility] [address] [place] [address] Dr. Krystle Heaton Eosinophils/100 WBC (Bld) 1.8 % Normal 0.9-7.0 [facility] Comment on above: Performed By: #### T 7, LIPA, TSH, AMADOU, CMP #### [facility] [address] [place] [address] Dr. Krystle Heaton Erythrocyte distribution width (RBC) [Ratio] 12.5 % Normal 11.0-15.0 [facility] Comment on above: Performed By: #### T 7, LIPA, TSH, AMADOU, CMP #### [facility] [address] [place] [address] Dr. Krystle Heaton Hematocrit (Bld) [Volume fraction] 40.9 % Critically low 42.0-54.0 [facility] Comment on above: Performed By: #### T 7, LIPA, TSH, AMADOU, CMP #### [facility] [address] [place] [address] Dr. Krystle Heaton Hemoglobin (Bld) [Mass/Vol] 14.1 g/dL Normal 14.0-18.0 [facility] Comment on above: Performed By: #### T 7, LIPA, TSH, AMADOU, CMP #### [facility] [address] [place] [address] Dr. Krystle Heaton IG # 0.01 10e3/ul Normal 0.00-0.03 [facility] Comment on above: Performed By: #### T 7, LIPA, TSH, AMADOU, CMP #### [facility] [address] [place] [address] Dr. Krystle Heaton IG % 0.3 % Normal 0.0-0.5 [facility] Comment on above: Performed By: #### T 7, LIPA, TSH, AMADOU, CMP #### [facility] [address] [place] [address] Dr. Krystle Heaton LYMPH # 1.3 103/ul Normal 1.2-3.8 [facility] Comment on above: Performed By: #### T 7, LIPA, TSH, AMADOU, CMP #### [facility] [address] [place] [address] Dr. Krystle Heaton Lymphocytes/100 WBC (Bld) 41.1 % Normal 20.5-60.0 [facility] Comment on above: Performed By: #### T 7, LIPA, TSH, AMADOU, CMP #### [facility] [address] [place] [address] Dr. Krystle Heaton MANUAL DIFF REQ NO Normal [facility] Comment on above: Performed By: #### T 7, LIPA, TSH, AMADOU, CMP #### [facility] [address] [place] [address] Dr. Krystle Heaton MCH (RBC) [Entitic mass] 36.3 pg Critically high 25.9-34.0 [facility] Comment on above: Performed By: #### T 7, LIPA, TSH, AMADOU, CMP #### [facility] [address] [place] [address] Dr. Krystle Heaton MCHC (RBC) [Mass/Vol] 34.5 g/dL Normal 29.9-35.2 [facility] Comment on above: Performed By: #### T 7, LIPA, TSH, AMADOU, CMP #### [facility] [address] [place] [address] Dr. Krystle Heaton MCV (RBC) [Entitic vol] 105.4 fL Critically high 80.0-94.0 [facility] Comment on above: Performed By: #### T 7, LIPA, TSH, AMADOU, CMP #### [facility] [address] [place] [address] Dr. Krystle Heaton MONO # 0.3 103/ul Normal 0.3-0.8 [facility] Comment on above: Performed By: #### T 7, LIPA, TSH, AMADOU, CMP #### [facility] [address] [place] [address] Dr. Krystle Heaton Monocytes/100 WBC (Bld) 8.0 % Normal 1.7-12.0 [facility] Comment on above: Performed By: #### T 7, LIPA, TSH, AMADOU, CMP #### [facility] [address] [address] [address] Krystle Heaton NEUT # 1.6 103/ul Normal 1.4-6.5 [facility] Comment on above: Performed By: #### T 7, LIPA, TSH, AMADOU, CMP #### [facility] [address] [address] [address] Krystle Heaton Neutrophils/100 WBC (Bld) 48.5 % Normal 43.0-75.0 [facility] Comment on above: Performed By: #### T 7, LIPA, TSH, AMADOU, CMP #### [facility] [address] [place] [address] Dr. Krystle Heaton Platelet mean volume (Bld) [Entitic vol] 10.6 fL Normal 9.5-13.5 [facility] Comment on above: Performed By: #### T 7, LIPA, TSH, AMADOU, CMP #### [facility] [address] [place] [address] Dr. Krystle Heaton PLT 134 103/ul Critically low 150-450 [facility] Comment on above: Performed By: #### T 7, LIPA, TSH, AMADOU, CMP #### [facility] [address] [place] [address] Dr. Krystle Heaton RBC 3.88 106/ul Critically low 4.70-6.10 [facility] Comment on above: Result Comment: Macr ocytosis 1+ Stomatocytes 1+ Performed By: #### T 7, LIPA, TSH, AMADOU, CMP #### [facility] [address] [place] [address] Dr. Krystle Heaton WBC 3.3 103/ul Critically low 4.0-11.0 [facility] Comment on above: Performed By: #### T 7, LIPA, TSH, AMADOU, CMP #### [facility] [address] [place] [address] Dr. Krystle Heaton FERRITINon 03-17-2021 Ferritin [Mass/Vol] ng/mL Critically high 17.9-464.0 [facility] Comment on above: Performed By: #### T 7, LIPA, TSH, AMADOU, CMP #### [facility] [address] [place] [address] Dr. Krystle Heaton FREE T4on 03-17-2021 Free T4 [Mass/Vol] 0.82 ng/dL Normal 0.78-2.19 [facility] Comment on above: Performed By: #### T 7, LIPA, TSH, AMADOU, CMP #### [facility] [address] [place] [address] Dr. Krystle Heaton IRON AND TIBCon 03-17-2021 % SATURATION 100.8 % Normal [facility] Comment on above: Performed By: #### T 7, LIPA, TSH, AMADOU, CMP #### [facility] [address] [place] [address] Dr. Krystle Heaton Iron [Mass/Vol] 249.0 ug/dL Critically high 49.0-181.0 [facility] Comment on above: Performed By: #### T 7, LIPA, TSH, AMADOU, CMP #### [facility] [address] [place] [address] Dr. Krystle Heaton TIBC DIRECT 247.0 ug/dL Critically low 261.0-497.0 [facility] Comment on above: Performed By: #### T 7, LIPA, TSH, AMADOU, CMP #### [facility] [address] [place] [address] Dr. Krystle Heaton PROF 14(COMP METB)on 021 Albumin [Mass/Vol] 3.7 g/dL Normal 3.5-5.0 [facility] Comment on above: Performed By: #### T 7, LIPA, TSH, AMADOU, CMP #### [facility] [address] [place] [address] Dr. Krystle Heaton Albumin/Globulin [Mass ratio] 1.1 {ratio} Normal [facility] Comment on above: Performed By: #### T 7, LIPA, TSH, AMADOU, CMP #### [facility] [address] [place] [address] Dr. Krystle Heaton ALP [Catalytic activity/Vol] 78 U/L Normal 38-126 [facility] Comment on above: Performed By: #### T 7, LIPA, TSH, AMADOU, CMP #### [facility] [address] [place] [address] Dr. Krystle Heaton ALT [Catalytic activity/Vol] 100 U/L Critically high 21-72 [facility] Comment on above: Performed By: #### T 7, LIPA, TSH, AMADOU, CMP #### [facility] [address] [place] [address] Dr. Krystle Heaton Anion gap [Moles/Vol] 14.4 mmol/L Normal [facility] Comment on above: Performed By: #### T 7, LIPA, TSH, AMADOU, CMP #### [facility] [address] [place] [address] Dr. Krystle Heaton AST [Catalytic activity/Vol] 158 U/L Critically high 17-59 [facility] Comment on above: Performed By: #### T 7, LIPA, TSH, AMADOU, CMP #### [facility] [address] [place] [address] Dr. Krystle Heaton Bilirubin [Mass/Vol] 0.6 mg/dL Normal 0.2-1.3 [facility] Comment on above: Performed By: #### T 7, LIPA, TSH, AMADOU, CMP #### [facility] [address] [place] [address] Dr. Krystle Heaton Calcium [Mass/Vol] 8.9 mg/dL Normal 8.4-10.2 [facility] Comment on above: Performed By: #### T 7, LIPA, TSH, AMADOU, CMP #### [facility] [address] [place] [address] Dr. Krystle Heaton Chloride [Moles/Vol] 100 mmol/L Normal 98-107 [facility] Comment on above: Performed By: #### T 7, LIPA, TSH, AMADOU, CMP #### [facility] [address] [place] [address] Dr. Krystle Heaton CO2 [Moles/Vol] 27.3 mmol/L Normal 22.0-30.0 [facility] Comment on above: Performed By: #### T 7, LIPA, TSH, AMADOU, CMP #### [facility] [address] [address] [address] Krystle Heaton Creatinine [Mass/Vol] 1.08 mg/dL Normal 0.66-1.25 [facility] Comment on above: Performed By: #### T 7, LIPA, TSH, AMADOU, CMP #### [facility] [address] [address] [address] Krystle Heaton EGFR-AF ANDORRAN >60 Normal >=60 [facility] Comment on above: Performed By: #### T 7, LIPA, TSH, AMADOU, CMP #### [facility] [address] [place] [address] Dr. Krystle Heaton EGFR-NON AF ANDORRAN >60 Normal >=60 [facility] Comment on above: Performed By: #### T 7, LIPA, TSH, AMADOU, CMP #### [facility] [address] [place] [address] Dr. Krystle Heaton Globulin (S) [Mass/Vol] 3.5 g/dL Normal [facility] Comment on above: Performed By: #### T 7, LIPA, TSH, AMADOU, CMP #### [facility] [address] [place] [address] Dr. Krystle Heaton Glucose [Mass/Vol] 115 mg/dL Critically high 74-106 [facility] Comment on above: Performed By: #### T 7, LIPA, TSH, AMADOU, CMP #### [facility] [address] [place] [address] Dr. Krystle Heaton Potassium [Moles/Vol] 3.7 mmol/L Normal 3.4-5.0 [facility] Comment on above: Performed By: #### T 7, LIPA, TSH, AMADOU, CMP #### [facility] [address] [place] [address] Dr. Krystle Heaton Protein [Mass/Vol] 7.2 g/dL Normal 6.1-8.2 [facility] Comment on above: Performed By: #### T 7, LIPA, TSH, AMADOU, CMP #### [facility] [address] [place] [address] Dr. Krystle Heaton Sodium [Moles/Vol] 138 mmol/L Normal 137-145 [facility] Comment on above: Performed By: #### T 7, LIPA, TSH, AMADOU, CMP #### [facility] [address] [place] [address] Dr. Krystle Heaton Urea nitrogen [Mass/Vol] 10.0 mg/dL Normal 9.0-20.0 [facility] Comment on above: Performed By: #### T 7, LIPA, TSH, AMADOU, CMP #### [facility] [address] [place] [address] Dr. Krystle Heaton Urea nitrogen/Creatinine [Mass ratio] 9.3 mg/mg Normal [facility] Comment on above: Performed By: #### T 7, LIPA, TSH, AMADOU, CMP #### [facility] [address] [place] [address] Dr. Krystle Heaton TSHon 03-17-2021 TSH 1.904 uIU/mL Normal 0.470-4.680 [facility] Comment on above: Performed By: #### T 7, LIPA, TSH, AMADOU, CMP #### [facility] [address] [place] [address] Dr. Krystle Heaton TSH RANGE SEE BELOW Normal [facility] Comment on above: Result Comment: <0.3 4 UIU/ml HYPERTHYROID 0.34-5.60 UIU/ml EUTHYROID >5.60 UIU/ml HYPOTHYROID Performed By: #### T 7, LIPA, TSH, AMADOU, CMP #### [facility] [address] [place] [address] Dr. Krystle Heaton CBC AUTO DIFFon 03-08-2021 BASO # 0.0 103/ul Normal 0.0-0.1 [facility] [facility] Comment on above: Performed By: #### T 7, LIPA, TSH, AMADOU, CMP #### [facility] [address] [place] [address] Dr. Krystle Heaton Basophils/100 WBC (Bld) 0.8 % Normal 0.2-2.0 [facility] Comment on above: Performed By: #### T 7, LIPA, TSH, AMADOU, CMP #### [facility] [address] [place] [address] Dr. Krystle Heaton EO # 0.1 103/ul Normal 0.0-0.7 [facility] Comment on above: Performed By: #### T 7, LIPA, TSH, AMADOU, CMP #### [facility] [address] [place] [address] Dr. Krystle Heaton Eosinophils/100 WBC (Bld) 1.5 % Normal 0.9-7.0 [facility] Comment on above: Performed By: #### T 7, LIPA, TSH, AMADOU, CMP #### [facility] [address] [place] [address] Dr. Krytsle Heaton Erythrocyte distribution width (RBC) [Ratio] 12.2 % Normal 11.0-15.0 [facility] Comment on above: Performed By: #### T 7, LIPA, TSH, AMADOU, CMP #### [facility] [address] [place] [address] Dr. Krystle Heaton Hematocrit (Bld) [Volume fraction] 45.5 % Normal 42.0-54.0 [facility] Comment on above: Performed By: #### T 7, LIPA, TSH, AMADOU, CMP #### [facility] [address] [place] [address] Dr. Krystle Heaton Hemoglobin (Bld) [Mass/Vol] 15.9 g/dL Normal 14.0-18.0 [facility] Comment on above: Performed By: #### T 7, LIPA, TSH, AMADOU, CMP #### [facility] [address] [place] [address] Dr. Krystle Heaton IG # 0.01 10e3/ul Normal 0.00-0.03 [facility] Comment on above: Performed By: #### T 7, LIPA, TSH, AMADOU, CMP #### [facility] [address] [place] [address] Dr. Krystle Heaton IG % 0.2 % Normal 0.0-0.5 [facility] Comment on above: Performed By: #### T 7, LIPA, TSH, AMADOU, CMP #### [facility] [address] [place] [address] Dr. Krystle Heaton LYMPH # 1.8 103/ul Normal 1.2-3.8 [facility] Comment on above: Performed By: #### T 7, LIPA, TSH, AMADOU, CMP #### [facility] [address] [place] [address] Dr. Krystle Heaton Lymphocytes/100 WBC (Bld) 37.8 % Normal 20.5-60.0 [facility] Comment on above: Performed By: #### T 7, LIPA, TSH, AMADOU, CMP #### [facility] [address] [place] [address] Dr. Krystle Heaton MANUAL DIFF REQ NO Normal [facility] Comment on above: Performed By: #### T 7, LIPA, TSH, AMADOU, CMP #### [facility] [address] [place] [address] Dr. Krystle Heaton MCH (RBC) [Entitic mass] 36.4 pg Critically high 25.9-34.0 [facility] Comment on above: Performed By: #### T 7, LIPA, TSH, AMADOU, CMP #### [facility] [address] [place] [address] Dr. Krystle Heaton MCHC (RBC) [Mass/Vol] 34.9 g/dL Normal 29.9-35.2 [facility] Comment on above: Performed By: #### T 7, LIPA, TSH, AMADOU, CMP #### [facility] [address] [place] [address] Dr. Krystle Heaton MCV (RBC) [Entitic vol] 104.1 fL Critically high 80.0-94.0 [facility] Comment on above: Performed By: #### T 7, LIPA, TSH, AMADOU, CMP #### [facility] [address] [place] [address] Dr. Krystle Heaton MONO # 0.4 103/ul Normal 0.3-0.8 [facility] Comment on above: Performed By: #### T 7, LIPA, TSH, AMADOU, CMP #### [facility] [address] [place] [address] Dr. Krystle Heaton Monocytes/100 WBC (Bld) 8.3 % Normal 1.7-12.0 [facility] Comment on above: Performed By: #### T 7, LIPA, TSH, AMADOU, CMP #### [facility] [address] [place] [address] Dr. Krystle Heaton NEUT # 2.4 103/ul Normal 1.4-6.5 [facility] Comment on above: Performed By: #### T 7, LIPA, TSH, AMADOU, CMP #### [facility] [address] [place] [address] Dr. Krystle Heaton Neutrophils/100 WBC (Bld) 51.4 % Normal 43.0-75.0 [facility] Comment on above: Performed By: #### T 7, LIPA, TSH, AMADOU, CMP #### [facility] [address] [place] [address] Dr. Krystle Heaton Platelet mean volume (Bld) [Entitic vol] 10.8 fL Normal 9.5-13.5 [facility] Comment on above: Performed By: #### T 7, LIPA, TSH, AMADOU, CMP #### [facility] [address] [place] [address] Dr. Krystle Heaton PLT 175 103/ul Normal 150-450 [facility] Comment on above: Performed By: #### T 7, LIPA, TSH, AMADOU, CMP #### [facility] [address] [place] [address] Dr. Krystle Heaton RBC 4.37 106/ul Critically low 4.70-6.10 [facility] Comment on above: Performed By: #### T 7, LIPA, TSH, AMADOU, CMP #### [facility] [address] [place] [address] Dr. Krystle Heaton WBC 4.7 103/ul Normal 4.0-11.0 [facility] Comment on above: Performed By: #### T 7, LIPA, TSH, AMADOU, CMP #### [facility] [address] [place] [address] Dr. Krystle Heaton FERRITINon 03-08-2021 Ferritin [Mass/Vol] ng/mL Critically high 17.9-464.0 [facility] Comment on above: Performed By: #### T 7, LIPA, TSH, AMADOU, CMP #### [facility] [address] [place] [address] Dr. Krystle Heaton FREE T4on 03-08-2021 Free T4 [Mass/Vol] 0.73 ng/dL Critically low 0.78-2.19 [facility] Comment on above: Performed By: #### T 7, LIPA, TSH, AMADOU, CMP #### [facility] [address] [place] [address] Dr. Krystle Heaton IRON AND TIBCon 03-08-2021 % SATURATION 102.2 % Normal [facility] Comment on above: Performed By: #### T 7, LIPA, TSH, AMADOU, CMP #### [facility] [address] [place] [address] Dr. Krystle Heaton Iron [Mass/Vol] 279.0 ug/dL Critically high 49.0-181.0 [facility] Comment on above: Performed By: #### T 7, LIPA, TSH, AMADOU, CMP #### [facility] [address] [place] [address] Dr. Krystle Heaton TIBC DIRECT 273.0 ug/dL Normal 261.0-497.0 [facility] Comment on above: Performed By: #### T 7, LIPA, TSH, AMADOU, CMP #### [facility] [address] [place] [address] Dr. Krystle Heaton PROF 14(COMP METB)on 021 Albumin [Mass/Vol] 3.6 g/dL Normal 3.5-5.0 [facility] Comment on above: Performed By: #### T 7, LIPA, TSH, AMADOU, CMP #### [facility] [address] [place] [address] Dr. Krystle Heaton Albumin/Globulin [Mass ratio] 1.0 {ratio} Normal [facility] Comment on above: Performed By: #### T 7, LIPA, TSH, AMADOU, CMP #### [facility] [address] [place] [address] Dr. Krystle Heaton ALP [Catalytic activity/Vol] 68 U/L Normal 38-126 [facility] Comment on above: Performed By: #### T 7, LIPA, TSH, AMADOU, CMP #### [facility] [address] [place] [address] Dr. Krystle eHaton ALT [Catalytic activity/Vol] 58 U/L Normal 21-72 [facility] Comment on above: Performed By: #### T 7, LIPA, TSH, AMADOU, CMP #### [facility] [address] [place] [address] Dr. Krystle Heaton Anion gap [Moles/Vol] 15.5 mmol/L Normal [facility] Comment on above: Performed By: #### T 7, LIPA, TSH, AMADOU, CMP #### [facility] [address] [place] [address] Dr. Krystle Heaton AST [Catalytic activity/Vol] 56 U/L Normal 17-59 [facility] Comment on above: Performed By: #### T 7, LIPA, TSH, AMADOU, CMP #### [facility] [address] [place] [address] Dr. Krystle Heaton Bilirubin [Mass/Vol] 0.7 mg/dL Normal 0.2-1.3 [facility] Comment on above: Performed By: #### T 7, LIPA, TSH, AMADOU, CMP #### [facility] [address] [place] [address] Dr. Krystle Heaton Calcium [Mass/Vol] 8.9 mg/dL Normal 8.4-10.2 [facility] Comment on above: Performed By: #### T 7, LIPA, TSH, AMADOU, CMP #### [facility] [address] [place] [address] Dr. Krystle Heaton Chloride [Moles/Vol] 100 mmol/L Normal 98-107 [facility] Comment on above: Performed By: #### T 7, LIPA, TSH, AMADOU, CMP #### [facility] [address] [address] [address] Krystle Heaton CO2 [Moles/Vol] 26.6 mmol/L Normal 22.0-30.0 [facility] Comment on above: Performed By: #### T 7, LIPA, TSH, AMADOU, CMP #### [facility] [address] [place] [address] Dr. Krystle Heaton Creatinine [Mass/Vol] 1.12 mg/dL Normal 0.66-1.25 [facility] Comment on above: Performed By: #### T 7, LIPA, TSH, AMADOU, CMP #### [facility] [address] [place] [address] Dr. Krystle Heaton EGFR-AF ANDORRAN >60 Normal >=60 [facility] Comment on above: Performed By: #### T 7, LIPA, TSH, AMADOU, CMP #### [facility] [address] [place] [address] Dr. Krystle Heaton EGFR-NON AF ANDORRAN >60 Normal >=60 [facility] Comment on above: Performed By: #### T 7, LIPA, TSH, AMADOU, CMP #### [facility] [address] [place] [address] Dr. Krystle Heaton Globulin (S) [Mass/Vol] 3.7 g/dL Normal [facility] Comment on above: Performed By: #### T 7, LIPA, TSH, AMADOU, CMP #### [facility] [address] [place] [address] Dr. Krystle Heaton Glucose [Mass/Vol] 101 mg/dL Normal 74-106 [facility] Comment on above: Performed By: #### T 7, LIPA, TSH, AMADOU, CMP #### [facility] [address] [address] [address] Krystle Heaton Potassium [Moles/Vol] 4.1 mmol/L Normal 3.4-5.0 [facility] Comment on above: Performed By: #### T 7, LIPA, TSH, AMADOU, CMP #### [facility] [address] [place] [address] Dr. Krystle Heaton Protein [Mass/Vol] 7.3 g/dL Normal 6.1-8.2 [facility] Comment on above: Performed By: #### T 7, LIPA, TSH, AMADOU, CMP #### [facility] [address] [place] [address] Dr. Krystle Heaton Sodium [Moles/Vol] 138 mmol/L Normal 137-145 [facility] Comment on above: Performed By: #### T 7, LIPA, TSH, AMADOU, CMP #### [facility] [address] [place] [address] Dr. Krystle Heaton Urea nitrogen [Mass/Vol] 17.0 mg/dL Normal 9.0-20.0 [facility] Comment on above: Performed By: #### T 7, LIPA, TSH, AMADOU, CMP #### [facility] [address] [place] [address] Dr. Krystle Heaton Urea nitrogen/Creatinine [Mass ratio] 15.2 mg/mg Normal [facility] Comment on above: Performed By: #### T 7, LIPA, TSH, AMADOU, CMP #### [facility] [address] [place] [address] Dr. Krystle Heaton TSHon 03-08-2021 TSH 1.781 uIU/mL Normal 0.470-4.680 [facility] Comment on above: Performed By: #### T 7, LIPA, TSH, AMADOU, CMP #### [facility] [address] [place] [address] Dr. Krystle Heaton TSH RANGE SEE BELOW Normal [facility] Comment on above: Result Comment: <0.3 4 UIU/ml HYPERTHYROID 0.34-5.60 UIU/ml EUTHYROID >5.60 UIU/ml HYPOTHYROID Performed By: #### T 7, LIPA, TSH, AMADOU, CMP #### [facility] [address] [place] [address] Dr. Krystle Heaton FERRITINon 02-03-2021 Ferritin [Mass/Vol] ng/mL Critically high 17.9-464.0 [facility] Comment on above: Performed By: #### C BC #### [facility] [address] [place] [address] Billy Devlin [facility] SARS-CoV-2 (COVID-19) RNA JIMBO+probe Ql (Unsp spec) Not detected Normal NOT DETECTED [facility] Comment on above: Result Comment: This test is not yet approved or cleared by the [place] FDA. When there are no FDA-approved or cleared tests available, and other criteria are met, FDA can make tests available under an emergency access mechanism called an Emergency Use Authorization (EUA). The EUA for this test is supported by the [place] of Health and Human Service's (HHS's) declaration [...] T 7, LIPA, TSH, AMADOU, CMP #### [facility] [address] [place] [address] Dr. Krystle Heaton CBC AUTO DIFFon 01-06-2021 BASO # 0.0 103/ul Normal 0.0-0.1 [facility] Comment on above: Performed By: #### T 7, LIPA, TSH, AMADOU, CMP #### [facility] [address] [place] [address] Dr. Krystle Heaton Basophils/100 WBC (Bld) 1.0 % Normal 0.2-2.0 [facility] Comment on above: Performed By: #### T 7, LIPA, TSH, AMADOU, CMP #### [facility] [address] [place] [address] Dr. Krystle Heaton EO # 0.1 103/ul Normal 0.0-0.7 [facility] Comment on above: Performed By: #### T 7, LIPA, TSH, AMADOU, CMP #### [facility] [address] [place] [address] Dr. Krystle Heaton Eosinophils/100 WBC (Bld) 2.5 % Normal 0.9-7.0 [facility] Comment on above: Performed By: #### T 7, LIPA, TSH, AMADOU, CMP #### [facility] [address] [place] [address] Dr. Krystle Heaton Erythrocyte distribution width (RBC) [Ratio] 13.7 % Normal 11.0-15.0 [facility] Comment on above: Performed By: #### T 7, LIPA, TSH, AMADOU, CMP #### [facility] [address] [place] [address] Dr. Krystle Heaton Hematocrit (Bld) [Volume fraction] 44.1 % Normal 42.0-54.0 [facility] Comment on above: Performed By: #### T 7, LIPA, TSH, AMADOU, CMP #### [facility] [address] [place] [address] Dr. Krystle Heaton Hemoglobin (Bld) [Mass/Vol] 15.0 g/dL Normal 14.0-18.0 [facility] Comment on above: Performed By: #### T 7, LIPA, TSH, AMADOU, CMP #### [facility] [address] [place] [address] Dr. Krystle Heaton IG # 0.02 10e3/ul Normal 0.00-0.03 [facility] Comment on above: Performed By: #### T 7, LIPA, TSH, AMADOU, CMP #### [facility] [address] [place] [address] Dr. Krystle Heaton IG % 0.5 % Normal 0.0-0.5 [facility] Comment on above: Performed By: #### T 7, LIPA, TSH, AMADOU, CMP #### [facility] [address] [place] [address] Dr. Krystle Heaton LYMPH # 1.6 103/ul Normal 1.2-3.8 [facility] Comment on above: Performed By: #### T 7, LIPA, TSH, AMADOU, CMP #### [facility] [address] [place] [address] Dr. Krystle Heaton Lymphocytes/100 WBC (Bld) 40.7 % Normal 20.5-60.0 [facility] Comment on above: Performed By: #### T 7, LIPA, TSH, AMADOU, CMP #### [facility] [address] [place] [address] Dr. Krystle Heaton MANUAL DIFF REQ NO Normal [facility] Comment on above: Performed By: #### T 7, LIPA, TSH, AMADOU, CMP #### [facility] [address] [place] [address] Dr. Krystle Heaton MCH (RBC) [Entitic mass] 36.2 pg Critically high 25.9-34.0 [facility] Comment on above: Performed By: #### T 7, LIPA, TSH, AMADOU, CMP #### [facility] [address] [place] [address] Dr. Krystle Heaton MCHC (RBC) [Mass/Vol] 34.0 g/dL Normal 29.9-35.2 [facility] Comment on above: Performed By: #### T 7, LIPA, TSH, AMADOU, CMP #### [facility] [address] [place] [address] Dr. Krystle Heaton MCV (RBC) [Entitic vol] 106.5 fL Critically high 80.0-94.0 [facility] Comment on above: Performed By: #### T 7, LIPA, TSH, AMADOU, CMP #### [facility] [address] [place] [address] Dr. Krystle Heaton MONO # 0.3 103/ul Normal 0.3-0.8 [facility] Comment on above: Performed By: #### T 7, LIPA, TSH, AMADOU, CMP #### [facility] [address] [place] [address] Dr. Krystle Heaton Monocytes/100 WBC (Bld) 8.1 % Normal 1.7-12.0 [facility] Comment on above: Performed By: #### T 7, LIPA, TSH, AMADOU, CMP #### [facility] [address] [address] [address] Krystle Heaton NEUT # 1.9 103/ul Normal 1.4-6.5 [facility] Comment on above: Performed By: #### T 7, LIPA, TSH, AMADOU, CMP #### [facility] [address] [place] [address] Dr. Krystle Heaton Neutrophils/100 WBC (Bld) 47.2 % Normal 43.0-75.0 [facility] Comment on above: Performed By: #### T 7, LIPA, TSH, AMADOU, CMP #### [facility] [address] [place] [address] Dr. Krystle Heaton Platelet mean volume (Bld) [Entitic vol] 11.6 fL Normal 9.5-13.5 [facility] Comment on above: Performed By: #### T 7, LIPA, TSH, AMADOU, CMP #### [facility] [address] [place] [address] Dr. Krystle Heaton PLT 184 103/ul Normal 150-450 [facility] Comment on above: Performed By: #### T 7, LIPA, TSH, AMADOU, CMP #### [facility] [address] [place] [address] Dr. Krystle Heaton RBC 4.14 106/ul Critically low 4.70-6.10 [facility] Comment on above: Performed By: #### T 7, LIPA, TSH, AMADOU, CMP #### [facility] [address] [place] [address] Dr. Krystle Heaton WBC 4.0 103/ul Normal 4.0-11.0 [facility] Comment on above: Performed By: #### T 7, LIPA, TSH, AMADOU, CMP #### [facility] [address] [address] [address] Krystle Heaton FERRITINon 01-06-2021 Ferritin [Mass/Vol] ng/mL Critically high 17.9-464.0 [facility] Comment on above: Performed By: #### H BSANS #### [facility] [address] [place] [address] Billy Devlin CBC AUTO DIFFon 12-09-2020 BASO # 0.0 103/ul Normal 0.0-0.1 [facility] Comment on above: Performed By: #### T 7, LIPA, TSH, AMADOU, CMP #### [facility] [address] [place] [address] Dr. Krystle Heaton Basophils/100 WBC (Bld) 0.6 % Normal 0.2-2.0 [facility] Comment on above: Performed By: #### T 7, LIPA, TSH, AMADOU, CMP #### [facility] [address] [place] [address] Dr. Krystle Heaton EO # 0.1 103/ul Normal 0.0-0.7 [facility] Comment on above: Performed By: #### T 7, LIPA, TSH, AMADOU, CMP #### [facility] [address] [place] [address] Dr. Krystle Heaton Eosinophils/100 WBC (Bld) 2.6 % Normal 0.9-7.0 [facility] Comment on above: Performed By: #### T 7, LIPA, TSH, AMADOU, CMP #### [facility] [address] [place] [address] Dr. Krystle Heaton Erythrocyte distribution width (RBC) [Ratio] 13.0 % Normal 11.0-15.0 [facility] Comment on above: Performed By: #### T 7, LIPA, TSH, AMADOU, CMP #### [facility] [address] [place] [address] Dr. Krystle Heaton Hematocrit (Bld) [Volume fraction] 46.2 % Normal 42.0-54.0 [facility] Comment on above: Performed By: #### T 7, LIPA, TSH, AMADOU, CMP #### [facility] [address] [place] [address] Dr. Krystle Heaton Hemoglobin (Bld) [Mass/Vol] 16.0 g/dL Normal 14.0-18.0 [facility] Comment on above: Performed By: #### T 7, LIPA, TSH, AMADOU, CMP #### [facility] [address] [place] [address] Dr. Krystle Heaton IG # 0.01 10e3/ul Normal 0.00-0.03 [facility] Comment on above: Performed By: #### T 7, LIPA, TSH, AMADOU, CMP #### [facility] [address] [place] [address] Dr. Krystle Heaton IG % 0.2 % Normal 0.0-0.5 [facility] Comment on above: Performed By: #### T 7, LIPA, TSH, AMADOU, CMP #### [facility] [address] [place] [address] Dr. Krystle Heaton LYMPH # 1.3 103/ul Normal 1.2-3.8 [facility] Comment on above: Performed By: #### T 7, LIPA, TSH, AMADOU, CMP #### [facility] [address] [place] [address] Dr. Krystle Heaton Lymphocytes/100 WBC (Bld) 27.8 % Normal 20.5-60.0 [facility] Comment on above: Performed By: #### T 7, LIPA, TSH, AMADOU, CMP #### [facility] [address] [place] [address] Dr. Krystle Heaton MANUAL DIFF REQ NO Normal [facility] Comment on above: Performed By: #### T 7, LIPA, TSH, AMADOU, CMP #### [facility] [address] [place] [address] Dr. Krystle Heaton MCH (RBC) [Entitic mass] 34.9 pg Critically high 25.9-34.0 [facility] Comment on above: Performed By: #### T 7, LIPA, TSH, AMADOU, CMP #### [facility] [address] [place] [address] Dr. Krystle Heaton MCHC (RBC) [Mass/Vol] 34.6 g/dL Normal 29.9-35.2 [facility] Comment on above: Performed By: #### T 7, LIPA, TSH, AMADOU, CMP #### [facility] [address] [place] [address] Dr. Krystle Heaton MCV (RBC) [Entitic vol] 100.9 fL Critically high 80.0-94.0 [facility] Comment on above: Performed By: #### T 7, LIPA, TSH, AMADOU, CMP #### [facility] [address] [place] [address] Dr. Krystle Heaton MONO # 0.3 103/ul Normal 0.3-0.8 [facility] Comment on above: Performed By: #### T 7, LIPA, TSH, AMADOU, CMP #### [facility] [address] [place] [address] Dr. Krystle Heaton Monocytes/100 WBC (Bld) 6.6 % Normal 1.7-12.0 [facility] Comment on above: Performed By: #### T 7, LIPA, TSH, AMADOU, CMP #### [facility] [address] [place] [address] Dr. Krystle Heaton NEUT # 2.9 103/ul Normal 1.4-6.5 [facility] Comment on above: Performed By: #### T 7, LIPA, TSH, AMADOU, CMP #### [facility] [address] [place] [address] Dr. Krystle Heaton Neutrophils/100 WBC (Bld) 62.2 % Normal 43.0-75.0 [facility] Comment on above: Performed By: #### T 7, LIPA, TSH, AMADOU, CMP #### [facility] [address] [place] [address] Dr. Krystle Heaton Platelet mean volume (Bld) [Entitic vol] 11.0 fL Normal 9.5-13.5 [facility] Comment on above: Performed By: #### T 7, LIPA, TSH, AMADOU, CMP #### [facility] [address] [place] [address] Dr. Krystle Heaton PLT 171 103/ul Normal 150-450 [facility] Comment on above: Performed By: #### T 7, LIPA, TSH, AMADOU, CMP #### [facility] [address] [address] [address] Krystle Heaton RBC 4.58 106/ul Critically low 4.70-6.10 [facility] Comment on above: Performed By: #### T 7, LIPA, TSH, AMADOU, CMP #### [facility] [address] [place] [address] Dr. Krystle Heaton WBC 4.7 103/ul Normal 4.0-11.0 [facility] Comment on above: Performed By: #### T 7, LIPA, TSH, AMADOU, CMP #### [facility] [address] [place] [address] Dr. Krystle Heaton PROF 14(COMP METB)on 021 Albumin [Mass/Vol] 3.9 g/dL Normal 3.5-5.0 [facility] Comment on above: Performed By: #### T 7, LIPA, TSH, AMADOU, CMP #### [facility] [address] [place] [address] Dr. Krystle Heaton Albumin/Globulin [Mass ratio] 1.1 {ratio} Normal [facility] Comment on above: Performed By: #### T 7, LIPA, TSH, AMADOU, CMP #### [facility] [address] [place] [address] Dr. Krystle Heaton ALP [Catalytic activity/Vol] 86 U/L Normal 38-126 [facility] Comment on above: Performed By: #### T 7, LIPA, TSH, AMADOU, CMP #### [facility] [address] [place] [address] Dr. Krystle Heaton ALT [Catalytic activity/Vol] 87 U/L Critically high 21-72 [facility] Comment on above: Performed By: #### T 7, LIPA, TSH, AMADOU, CMP #### [facility] [address] [place] [address] Dr. Krystle Heaton Anion gap [Moles/Vol] 15.7 mmol/L Normal [facility] Comment on above: Performed By: #### T 7, LIPA, TSH, AMADOU, CMP #### [facility] [facility] [address] [place] [address] Dr. Krystle Heaton AST [Catalytic activity/Vol] 70 U/L Critically high 17-59 [facility] Comment on above: Performed By: #### T 7, LIPA, TSH, AMADOU, CMP #### [facility] [address] [place] [address] Dr. Krystle Heaton Bilirubin [Mass/Vol] 1.4 mg/dL Critically high 0.2-1.3 [facility] Comment on above: Performed By: #### T 7, LIPA, TSH, AMADOU, CMP #### [facility] [address] [place] [address] Dr. Krystle Heaton Calcium [Mass/Vol] 9.3 mg/dL Normal 8.4-10.2 [facility] Comment on above: Performed By: #### T 7, LIPA, TSH, AMADOU, CMP #### [facility] [address] [place] [address] Dr. Krystle Heaton Chloride [Moles/Vol] 102 mmol/L Normal 98-107 [facility] Comment on above: Performed By: #### T 7, LIPA, TSH, AMADOU, CMP #### [facility] [address] [place] [address] Dr. Krystle Heaton CO2 [Moles/Vol] 26.5 mmol/L Normal 22.0-30.0 [facility] Comment on above: Performed By: #### T 7, LIPA, TSH, AMADOU, CMP #### [facility] [address] [place] [address] Dr. Krystle Heaton Creatinine [Mass/Vol] 1.27 mg/dL Critically high 0.66-1.25 [facility] Comment on above: Performed By: #### T 7, LIPA, TSH, AMADOU, CMP #### [facility] [address] [place] [address] Dr. Krystle Heaton EGFR-AF ANDORRAN >60 Normal >=60 [facility] Comment on above: Performed By: #### T 7, LIPA, TSH, AMADOU, CMP #### [facility] [address] [place] [address] Dr. Krystle Heaton EGFR-NON AF ANDORRAN =60 Normal >=60 [facility] Comment on above: Performed By: #### T 7, LIPA, TSH, AMADOU, CMP #### [facility] [address] [place] [address] Dr. Krystle Heaton Globulin (S) [Mass/Vol] 3.5 g/dL Normal [facility] Comment on above: Performed By: #### T 7, LIPA, TSH, AMADOU, CMP #### [facility] [address] [place] [address] Dr. Krystle Heaotn Glucose [Mass/Vol] 120 mg/dL Critically high 74-106 [facility] Comment on above: Performed By: #### T 7, LIPA, TSH, AMADOU, CMP #### [facility] [address] [place] [address] Dr. Krystle Heaton Potassium [Moles/Vol] 4.2 mmol/L Normal 3.4-5.0 [facility] Comment on above: Performed By: #### T 7, LIPA, TSH, AMADOU, CMP #### [facility] [address] [place] [address] Dr. Krystle Heaton Protein [Mass/Vol] 7.4 g/dL Normal 6.1-8.2 [facility] Comment on above: Performed By: #### T 7, LIPA, TSH, AMADOU, CMP #### [facility] [address] [place] [address] Dr. Krystle Heaton Sodium [Moles/Vol] 140 mmol/L Normal 137-145 [facility] Comment on above: Performed By: #### T 7, LIPA, TSH, AMADOU, CMP #### [facility] [address] [place] [address] Dr. Krystle Heaton Urea nitrogen [Mass/Vol] 12.0 mg/dL Normal 9.0-20.0 [facility] Comment on above: Performed By: #### T 7, LIPA, TSH, AMADOU, CMP #### [facility] [address] [place] [address] Dr. Krystle Heaton Urea nitrogen/Creatinine [Mass ratio] 9.4 mg/mg Normal [facility] Comment on above: Performed By: #### T 7, LIPA, TSH, AMADOU, CMP #### [facility] [address] [place], [place] [id number] Dr. Krystle Heaton PROTIMEon 12-09-2020 INR Coag (PPP) [Relative time] 0.96 {INR} Normal [facility] Comment on above: Performed By: #### H BSANS #### [facility] [address] [place] [address] Billy Devlin INR GUIDELINES SEE BELOW Normal [facility] Comment on above: Result Comment: MOUNA RED INR: 2.0 - 3.0 CONDITIONS NOT LISTED BELOW 2.5 - 3.5 FOR PROSTHETIC HEART VALVE REPLACEMENT 2.5 - 3.5 RECURRENT THROMBOSIS Performed By: #### H BSANS #### [facility] [address] [place] [address] Billy Devlin PT Coag (PPP) [Time] 10.5 s Normal 9.0-11.6 [facility] Comment on above: Performed By: #### H BSANS #### [facility] [address] [place], [place] [id number] Billy Devlin US SINGLE QUAD RT UPPERon [...] by: KRISTEN GODINEZ Date: 2020-12-09 10:23 Normal [facility] Vital Signs Date Time Vital Sign Value Performing Clinician Amy ling 07-14-2024 09:54-0400 Body height 177.8 cm Vivienne Velázquez MD Work Phone: [facility] 07-14-2024 09:54-0400 Body mass index (BMI) [Ratio] 27.26 kg/m2 Vivienne Velázquez MD Work Phone: [facility] 07-14-2024 09:54-0400 Body weight 86.18 kg Vivienne Velázquez MD Work Phone: [facility] 07-14-2024 09:54-0400 Diastolic blood pressure 64 mm[Hg] Vivienne Velázquez MD Work Phone: [facility] 07-14-2024 09:54-0400 Systolic blood pressure 104 mm[Hg] Vivienne Velázquez MD Work Phone: [facility] Encounters Encounter Date Encounter Type Care Provider Facility Start: 12-28-2024 End: 12-28-2024 ambulatory None Provider Facility:[facility] Start: 07-14-2024 End: 07-14-2024 Bamboo flowsheet [...] Start: 04-03-2022 End: 04-03-2022 ambulatory Magaly Sewell Facility:[facility] Start: 11-26-2021 End: 11-27-[address] GENEVIEVE TONG Facility:[facility] Start: 11-15-2021 End: 11-15-[address] GENEVIEVE TONG Facility:[facility] Start: 10-08-2021 End: 10-09-[address] AMADOU BROWN Facility:[facility] Start: 09-10-2021 End: 09-11-[address] AMADOU BROWN Facility:[facility] Start: 08-15-2021 End: 08-16-[address] AMADOU BROWN Facility:[facility] Start: 08-13-2021 Encounter for preprocedural laboratory examination DR DOCTOR PALUMBO [facility] Start: 08-10-2021 AUDIT No PCP None [...] ne w 45 minutes No PCP None [facility] [facility] Work Phone: Start: 04-06-2021 End: 04-07-[address] GENEVIEVE TOGN Facility:[facility] Start: 03-30-2021 End: 03-31-[address] [...] finding No PCP None [facility] [facility] Work Phone: Procedures Date Procedure Procedure Detail Performing Clinician Biopsy of liver No PCP None Repair of musculoten dinous cuff of shoulder No PCP None Plan of Treatment Date Care Activity Detail Author Start: 08-04-2024 End: 08-04-2024 Patient encounter procedure 08/04/2024 2:30 PM EDT Office Visit [facility] [address] [facility] [address] [place] [id number] Vivienne Velázquez MD [address] [facility] [address] [place] [address] [facility] Start: 07-28-2024 End: 07-28-2024 Patient encounter procedure 07/28/2024 10:30 AM EDT Office Visit [facility] [address] [place] [address] Vivienne Velázquez MD [address] [place] [address] [facility] Start: 07-14-2024 End: 07-14-2024 Patient encounter procedure 07/14/2024 9:50 AM EDT Office Visit [facility] [address] [place] [address] Vivienne Velázquez MD [address] [place] [address] Arrived [facility] Comment on above: Arrived Start: 07-11-2024 Influenza vaccination Influenza Vacc ine (#1) [facility] Start: 1970 Screening for malign ant neoplasm of colon [facility] Immunizations Immunization Date Immunization Notes Care Provider Fa [facility] 09-03-2023 influenza virus vacc ine, unspecified formulation Vivienne Velázquez MD Work Phone: [facility] Payers Date Payer Category Payer Medicare [id number] 2023 Unknown 2023 Unknown [id number] 1970 Unknown [id number] 2.16.84 0.1.475248.3.579.2.593 1970 Unknown [id number] .16.84 0.1.172328.3.579.2.593 1970 Unknown [id number] .16.84 0.1.688097.3.579.2.59 1970 Unknown [id number] 2.16.84 0.1.353482.3.579.2.593 1970 Unknown [id number] 2.16.84 0.1.003771.3.579.2.593 1970 Unknown [id number] 2.16.84 0.1.870964.3.579.2.593 1970 Unknown [id number] 2.16.84 0.1.278037.3.579.2.593 1970 Unknown [id number] 2.16.84 0.1.544637.3.579.2.593 1969 Unknown [id number] 2.16.84 0.1.569509.3.579.2.593 1969 Unknown [id number] 2.16.84 0.1.186469.3.579.2.593 1969 Unknown [id number] 2.16.84 0.1.137988.3.579.2.593 1969 Unknown [id number] .16.84 0.1.024366.3.579.2.593 1970 Unknown [id number] 2.16.84 0.1.303344.3.579.2.593 1969 Unknown [id number] 2.16.84 0.1.532809.3.579.2.593 1969 Unknown [id number] 2.16.84 0.1.356462.3.579.2.593 1969 Unknown [id number] 2.16.84 0.1.116602.3.579.2.593 1969 Unknown [id number] 2.16.84 0.1.200785.3.579.2.593 1969 Unknown [id number] 2.16.84 0.1.530446.3.579.2.593 1969 Unknown [id number] 2.16.84 0.1.414816.3.579.2.593 1969 Unknown [id number] 2.16.84 0.1.332588.3.579.2.593 1969 Unknown [id number] 2.16.84 0.1.642229.3.579.2.593 1969 Unknown [id number] 2.16.84 0.1.002787.3.579.2.593 1969 Unknown [id number] 2.16.84 0.1.744514.3.579.2.1259 1969 Unknown [id number] 2.16.84 0.1.485831.3.579.2.1259 1969 Unknown [id number] 2.16.84 0.1.766523.3.579.2.1259 1970 Unknown [id number] 2.16.8 40.1.581941.3.579.2.718 1960 Self-pay [id number] 1960 Self-pay 1960 Unknown [id number] Unknown [id number] 2.16.84 0.1.263666.3.579.2.593 Unknown [id number] 2.16.84 0.1.545006.3.579.2.593 Unknown [id number] 2.16.8 40.1.269453.3.579.2.531 Social History Date Type Detail Facility Start: 05-26-2024 End: 07-14-2024 Former smoker Former smoker [facility] [place] [address] [facility] Work Phone: Start: 1970 Sex Assigned At Male F [facility] Start: 05-26-[address] [facility] Ex-smoker [facility] Work Phone: History [...] if sx persist documented in this encounter [facility] Clinical Note 07-31-2021 Note Date [...] report Procedure performed by: Sandy Roland MD [employer] Attendant(s): Dee Lopes Md Estimated Blood Loss [...] Last Updated: 02-Aug-2021 13:04 by Sandy Roland) [facility] Clinical Note 05-08-2021 Note Date & Type Note Facility 05-08-2021 Note Pre-procedure Verifi cation and Time Out: Pre-Procedure Verification and Time Out: Procedure Locationprocedure area HUDDLE - Pre-procedure Verificationcompleted TIME OUT - Final Verificationcompleted DEBRIEFcompleted General Information: Anesthesia Critical Care: Non-Anesthesia Date/Time of Procedure: 08-May-2021 11:57 Post-Procedure Diagnosis: same Procedure Name: CT Liver Biopsy Findings: grossly normal anatomy Procedure performed by: me [employer] Attendant(s): none Estimated Blood Loss (mL): none [...] Last Updated: 08-May-2021 11:58 by Uri Bacon) [facility] Evaluation note Note Date & Type Note Facility Evaluation note [facility] Work [facility]: Evaluation note Note Date [...] no lower extremity edema.Symptom History:Modifying Factors:Associated Symptoms: [facility] [address] [facility] Work Phone: Chief Complaint [...] section and content) DATE CREATED AUTHOR 04/14/2021 [employer] DATE CREATED AUTHOR AUTHOR'S ORGANIZ ATION 05/15/2021 [facility] DATE CREATED AUTHOR AUTHOR'S ORGANIZ ATION 11/29/2021 [facility] DATE CREATED AUTHOR AUTHOR'S ORGANIZ ATION 04/15/2022 [facility] DATE CREATED AUTHOR AUTHOR'S ORGANIZ ATION 01/28/2023 [facility] DATE CREATED AUTHOR AUTHOR'S ORGANIZ ATION 05/24/2023 [facility] DATE CREATED AUTHOR AUTHOR'S ORGANIZ ATION 07/15/2024 [facility] dical [facility] DATE CREATED AUTHOR AUTHOR'S ORGANIZ ATION 01/01/2025 [facility] Goals (unrecognized section and content) Goals may be documented in a n alternate section Care Teams (unrecognized sec tion and content) Occupational Therapy Director Relationship Specialty Start Date End Date Genevieve Tong MD [address] [place] [address] PCP - General Family Medicine 05/24/24 Occupational Therapy Director Relationship Specialty Start Date End Date Genevieve Tong MD [address] [place] [address] [phone] PCP - General Family Medicine 05/24/24 Occupational Therapy Director Relationship Specialty Start Date End Date Genevieve Tong MD [address] [place] [address] PCP - General Family Medicine 05/24/24 Reason [...] BE BASED ON THE PRIMARY CLINICAL RECORDS. [facility] [employer] [facility]. provides no warranty or guarantee of the accuracy or completeness of information in this document.
== END 2025-01-21 10:18 | disposition home or self-care (01) ==
LOC: RAD 10:19
PROVIDERS: PCP Family Medicine; Visit Provider Family Medicine
DX: M25.552 Pain in left hip (principal)
CPT/HCPCS: 73502

== ENCOUNTER 2025-04-29 19:51 | Emergency (ER) | payer MEDICARE, SELFPAY ==
--- OUTSIDE RECORDS SUMMARY | 2025-01-21 05:00 | XMS_ITS ---
Author Organization [facility] in [place] Address [address] [place] [address] Care Team Providers Care Saw Grinder Name Role Phone Odilon Tong Primary Care Provider Allergies Allergen (clinical drug ingredient) Drug/Non Drug Allergy documented on EMR Reaction Allergy Type Onset Date Status morphine Morphine anaphylaxis Drug Allergy Activ e REASON FOR VISIT Presents to office for left hip pain. Started over the weekend. Denies any injury. Has been Dr. Mitchell Medications Medication SIG (Take, Route, Frequency, Duration) Notes Start Date End Date Status Vivitrol Active Meloxicam 15 MG 1 tablet Orally Once a day for 30 days 08/16/2024 Active Mirtazapine 45 MG 1 tablet at bedtime Orally Once a day for 30 days Active risperiDONE 1 MG TAKE 1 TABLET BY MADHAVI EVERY DAY FOR 30 DAYS for 100 Active Simvastatin 40 MG 1 tablet in the even ing Orally Once a day for 30 days 11/05/2024 Active Albuterol Sulfate HFA 108 (90 Base) MCG/ACT 2 puffs Inhalation four times daily for 30 days 12/31/2024 Active Lasix 40 MG 1 tablet Orally Once a day for 3 days 08/16/2024 Active Liothyronine Sodium 5 MCG 1 tablet on an empty stomach Orally Once a day for 30 days Active Livalo 1 MG 1 tablet Orally Once a day for 30 days 06/23/2024 Active Melatonin 10 MG 1 tablet Orally at bedtime 04/07/2024 Active Social History Tobacco Use: Social History Observation Description Date Details (start date - stop date) Former Smoker NA - 12/10/2012 Tobacco Use/Smoking Question Answer Notes Patient is a former smoker When did you stop smoking? 12/10/2012 How long has it been since you last smoked? > 10 years AUDIT-C (Standard) Question Answer Notes Did you have a drink containing alcohol in the p ast year? No Points 0 Interpretation Negative Problems Problem Type SNOMED Code ICD Code Onset Dates Problem Status W/U Status Risk Notes Problem Left hip pain (M25.552) Active confirmed Vital Signs Weight 211 lbs 01/21/2025 Height 70 in 01/21/2025 Blood pressure systolic 110 mm Hg 01/22/20 25 Blood pressure diastolic 70 mm Hg 025 BMI 30.27 kg/m2 01/21/2025 Encounters Encounter Location Date Provider Diagnosis [facility] [address] [place] [address] 01/21/2025 Odilon Tong Left hip pain M25.55 2 Assessments Encounter Date Diagnosis (ICD Code) Assessment Notes Treatment Notes Treatment Clinical Notes Section Notes 01/21/2025 Left hip pain (ICD-10 - M25.552) Plan Of Treatment Pending Test Test Name Order Date XR HIP LT 2 3V W PELVIS 01/21/2025 Medications Administered Medication Instructions Date of Administration Dosage Notes Ketorolac Tromethamine 01/21/2025 60 mg Triamcinolone 40 mg/ml 01/21/2025 80 mg Progress Notes * Araseli FRITZOB:1970 ( 54 yo M)Acc No.[id number]:01/21/2025 Progress Note Patient: Chuy KIMBROUGH Provider: Kate Tong ([facility])MD :1970 A ge:54 Y S ex:Male Date:01/21/2025 Address:[address] [place], [place] [id number] Check In:08:58 AM ESTCheck O ut:09:56 AM EST Subjective: * Chief Complaints: * P resents to office for left hip pain. Started over the weekend. Denies any injury. Has been Dr. Mitchell * HPI: G eneral: lef hiop pain -seen chiropracted 3 times - not helping' ws gettin out of car and feklt pain then next day muchy worse. * ROS: E ENT: hearing changes d enies. v isual changes d enies.?non-healing mouth sores d enies. s wollen glands or neck lumps d enies. h oarseness d enies. s ore throat d enies. d ifficulty swallowing d enies. n ose bleeds d enies. n betty congestion d enies. e ar ache d enies. e ar discharge?denies. r inging in ears d enies. l ight sensitivity d enies. e ye pain d enies. b lurring d enies. e ye irritation d enies. d ouble vision d enies.?vision loss d enies. G eneral/Constitutional: Sweats: D enies. F atigue d enies. S leep problems d enies. A norexia d enies. M alaise d enies. W eight loss d enies.?Fatigue or Weakness d enies. F ever or Chills d enies. C ardiovascular: Shortness of Breath w/lying flat d enies. L ightheadedness/dizziness d enies. C hest tightness/ heavy pressure d enies. S welling of legs, ankles, or feet d enies. W aking up with shortness of breath d enies. C hest pain denies. P alpitations d enies. W eight gain d enies. R espiratory: Chronic or frequent cough d enies. C oughing up blood?denies. D ifficulty breathing d enies. P roductive cough d enies. S noring?denies. S hortness of breath that awakens from sleep (PND) d enies. C hest pain d enies. S putum production d enies. W heezing d enies. M usculoskeletal: Joint pain d enies. J oint Fluid d enies. B ack pain d enies. K nee pain d enies. N iain pain d enies. J oint Stiffness d enies. M uscle cramps d enies. W eakness of muscles d enies. A rthritis d enies. M uscle aches d enies. P ain in shoulder(s) d enies. S wollen joints d enies. 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 Modified On:08/04/2023 Status:confirmed N17.9 Acute kidney failure Modified On:08/04/2023 Status:confirmed K57.92 Diverticulitis Modified On:08/04/2023 Status:confirmed F41.9 Anxiety Modified On:08/04/2023 Status:confirmed R00.2 Palpitations Modified On:08/04/2023 Status:confirmed M75.100 Rotator cuff tear Modified On:08/04/2023 Status:confirmed L72.3 Sebaceous cyst Modified On:08/04/2023 Status:confirmed E03.9 Hypothyroidism, unsp ecified Modified On:09/18/2023 Status:confirmed H91.90 Hearing loss Modified On:12/08/2023U Status:confirmed E78.5 Hyperlipemia Modified On:03/19/2024U Status:confirmed D64.9 Anemia Modified On:05/28/2024U Status:confirmed D69.6 Thrombocytopenia Modified On:06/24/2024 Status:confirmed E03.9 Hypothyroid Modified On:08/16/2024 Status:confirmed E11.9 Diabetes mellitus Modified On:01/03/2025U Status:confirmed E11.9 Diabetes Modified On:01/17/2025 Status:confirmed M25.552 Left hip pain Modified On:01/21/2025W/U Status:confirmed * Medical History: * Surgical History: S [place] Surgery- Right tube in Rt ear 07/03 * Hospitalization/Major Diagno stic Procedure: * Family History: F ather: . M other: alive, type II diabetes, Heart Disease, hypertension, diagnosed with Unspecified essential hypertension, Unspecified heart disease, Diabetes mellitus without mention of complication, type II or unspecified type, not stated as uncontrolled. B rother(s): alive, arthritis, hypertension, diagnosed with Unspecified essential hypertension. S ister(s): alive. Son(s): alive. D jennifer(s): alive. 1 brother(s) , 1 sister(s) . 2 son(s) , 2 daughter(s) - healthy. . * Social History: T obacco Use: T obacco Use/Smoking P atient is a f ormer smoker W hen did you stop smoking? 0 12/10/2012 H ow long has it been since you last smoked??> 10 years D rug/Alcohol: A HARLAN-C (Standard) D id you have a drink containing alcohol in the past year? N o P oints 0 I nterpretation N egative * Medications: T akingAlbuterol Sulfate HFA 108 (90 Base) MCG/ACT Aerosol Solution 2 puffs Inhalation four times daily Lasix(Furosemide) 40 MG Tablet 1 tablet Orally Once a day Liothyronine Sodium 5 MCG Tablet 1 tablet on an empty stomach Orally Once a day Livalo(Pitavastatin Calcium) 1 MG Tablet 1 tablet Orally Once a day Melatonin 10 MG Tablet 1 tablet Orally at bedtime Meloxicam 15 MG Tablet 1 tablet Orally Once a day Mirtazapine 45 MG Tablet 1 tablet at bedtime Orally Once a day risperiDONE 1 MG Tablet TAKE 1 TABLET BY MOUTH EVERY DAY FOR 30 DAYS Simvastatin 40 MG Tablet 1 tablet in the evening Orally Once a day Vivitrol Medication List reviewed and reconciled with the patientTaking Albuterol Sulfate HFA 108 (90 Base) MCG/ACT Aerosol Solution 2 puffs Inhalation four times daily Taking Lasix(Furosemide) 40 MG Tablet 1 tablet Orally Once a day Taking Liothyronine Sodium 5 MCG Tablet 1 tablet on an empty stomach Orally Once a day Taking Livalo(Pitavastatin Calcium) 1 MG Tablet 1 tablet Orally Once a day Taking Melatonin 10 MG Tablet 1 tablet Orally at bedtime Taking Meloxicam 15 MG Tablet 1 tablet Orally Once a day Taking Mirtazapine 45 MG Tablet 1 tablet at bedtime Orally Once a day Taking risperiDONE 1 MG Tablet TAKE 1 TABLET BY MOUTH EVERY DAY FOR 30 DAYS Taking Simvastatin 40 MG Tablet 1 tablet in the evening Orally Once a day Taking Vivitrol Medication List reviewed and reconciled with the patient * Allergies: M orphine: anaphylaxisno[Allergies Verified] Objective: * Vitals: W t:211lbs, Ht: 70 in, BP:110/70mm Hg, BMI:30.27Index, Ht-cm: 177.8 cm, Wt-k.71 kg. * Examination: P hysical Exam: GENERAL: w ell developed, well nourished, in no acute distress. HEAD: n ormocephalic/atraumatic. EYES: p upils equal, round and reactive to light, conjunctivae and sclerae normal. EARS: n o deformity or lesion of external ear, canals and TM appear normal bilaterally, TM's intact, not inflamed with normal light reflex, hearing grossly normal to conversational speech. NOSE: n o deformity, discharge, inflammation, or lesions.? MOUTH: m ucous membranes moist, normal oropharynx and posterior pharynx without lesions or exudates, tongue normal, dentition normal. NECK: n iain supple, no masses or palpable cervical nodes, trachea midline, thyroid without nodules, masses, tenderness, or enlargement. CHEST: n o chest wall deformity, no chest wall tenderness.? LUNGS: n ormal respiratory effort and clear to auscultation, no wheezes, rales, or rhonchi, good air exchange. CARDIO: r egular rate and rhythm, normal S1 and S2, nor murmur, rub, or gallop. PULSES: n ormal capillary refill. ABDOMEN: s oft, non-distended, non-tender, no masses. MUSCULOSKELETAL: d iffuse - painon papation left hip - poor rom in left hip iht int and extrernal roptation. EXTREMITY: n o clubbing, cyanosis, edema, or deformity with normal ROM in both upper and lower bilateral extremities. NEUROLOGIC: g rossly normal. SKIN: n o rashes, ulcerations, or suspicious lesions. LYMPH NODES: n o cervical adenopathy, nodes normal. MENTAL STATUS: a lert and oriented x3, normal mood and affect. Assessment: * Assessment: 1. L eft hip pain - M25.552 (Primary) Plan: * Treatment: * Therapeutic Injections: Triamcinolone 40 mg/ml : 80 mg (Route: Intramuscular) given by Nicki Jayla , MR on right gluteus (Left hip pain) Ketorolac Tromethamine : 60 mg (Route: Intramuscular) given by Nicki Melaniesurendra , MR on left gluteus (Left hip pain) * Procedure Codes: 9 6372 THERAP.INJ. OF MED. INTRAMUSCULAR OR [id number] TMC ACET,PER 10MG., Units: 8.00 J1885 TORADOL, PER 15 MG, Units: 4.00 , Modifiers: JZ * Preventive Medicine: Screenings/Counseling: B MS ACTION PLAN Above Normal BMI Follow-up D ietary management education, guidance, and counseling See treatment section of progress note for complete details of management plan. * * Sign off status: Completed Visit Status: C HK (Check Out) true * Provider: Kate Tong ([facility])MD Date: 0 01/21/2025 Generated for Armida chavarria/Ahsan/eTchepesmitting on: 0 04/29/2025 07:59 PM EDT History and Physical Notes * HPI (History of Present Illness) Category Sub-Category Detail Notes Category Not es General lef hiop pain -seen chiropracted 3 times - not helping' ws gettin out of car and feklt pain then next day muchy worse Examination Category Sub-Category Detail Notes Category Not es Physical Exam GENERAL: well developed, well nourished, in no acute distress HEAD: normocephalic/atraum atic EYES: pupils equal, round and reactive to light, conjunctivae and sclerae normal EARS: no deformity or lesi on of external ear, canals and TM appear normal bilaterally, TM's intact, not inflamed with normal light reflex, hearing grossly normal to conversational speech NOSE: no deformity, discha rge, inflammation, or lesions MOUTH: mucous membranes alex st, normal oropharynx and posterior pharynx without lesions or exudates, tongue normal, dentition normal NECK: neck supple, no mass es or palpable cervical nodes, trachea midline, thyroid without nodules, masses, tenderness, or enlargement CHEST: no chest wall deform ity, no chest wall tenderness LUNGS: normal respiratory e ffort and clear to auscultation, no wheezes, rales, or rhonchi, good air exchange CARDIO: regular rate and rhy thm, normal S1 and S2, nor murmur, rub, or gallop PULSES: normal capillary ref ill ABDOMEN: soft, non-distended, non-tender, no masses RECTAL: MUSCULOSKELETAL: diffuse - painon pap ation left hip - poor rom in left hip iht int and extrernal roptation EXTREMITY: no clubbing, cyanosi s, edema, or deformity with normal ROM in both upper and lower bilateral extremities NEUROLOGIC: grossly normal SKIN: no rashes, ulceratio ns, or suspicious lesions LYMPH NODES: no cervical adenopat hy, nodes normal MENTAL STATUS: alert and oriented x 3, normal mood and affect
--- OUTSIDE RECORDS SUMMARY | 2025-01-21 07:23 | XMS_ITS ---
Author Organization [facility] in [place] Address [address] [place] [address] Care Team Providers Care Phlebotomist Associate Name Role Phone Odilon Tong Primary Care Provider [phone] REASON FOR VISIT fax xr results Encounters Encounter Location Date Provider Diagnosis [facility] [address] [place] [address] 01/21/2025 Odilon Tong Plan Of Treatment No Information Progress Notes * Araseli FRITZOB:1970 ( 54 yo M)Acc No.[id number]:01/21/2025 Patient: Chuy KIMBROUGH :1970 A ge:54 Y S ex:Male Address:[address] [address] * true * Date: Generated for Printi ng/Faxing/eTransmitting on: 0 04/29/2025 07:59 PM EDT
--- OUTSIDE RECORDS SUMMARY | 2025-01-23 11:17 | XMS_ITS ---
Author Organization [facility] in [place] Address [address] [place] [address] Care Team Providers Care Director Marketing Name Role Phone Odilon Tong Primary Care Provider REASON FOR VISIT X-Ray Results Encounters Encounter Location Date Provider Diagnosis [facility] [address] [facility] [place] [address] 01/23/2025 Odilon Tong Plan Of Treatment No Information Progress Notes * Braden FRITZTiffOB:1970 ( 54 yo M)Acc No.[id number]:01/23/2025 Patient: Chuy KIMBROUGH :1970 A ge:54 Y S ex:Male Address[address] [address] * true * Date: Generated for Maryi ng/Fanayg/eTransmitting on: 0 04/29/2025 07:59 PM EDT
--- OUTSIDE RECORDS SUMMARY | 2025-04-06 11:34 | XMS_ITS | Continuity of Care Document ---
Author Organization [facility] Address [address] [place] [address] Phone Care Team Providers Care Life Scientist Name Role Phone Darcy Crawford Unavailable Unavaila [...] IN RD RVW MEDS BY RX/DR IN [facility] Tobacco User Not Consuled COLORECTAL CA SCREEN [...] MINUTES PSYTX PT&/FAMILY 60 MINUTES Acute Detox [facility] Acute Detox [facility] DRUG TEST PRSMV DIR OPT OBS Acute Detox [facility] Bitewings Four Films Intraoral-complete Series (bw) Oral Hygiene Instruction Comp Oral Eval New/estab Patient 2023 Acute Detox [facility] Acute Detox [facility] DRUG TEST PRSMV DIR OPT OBS ASSAY OF BREATH ETHANOL Advance Directives Directive Yes / No Effective Date File Name No Information Encounters Encounter Description Practice Location Reason(s) For Visit Diagnoses Date Provider Providers Copied on Encounter PSYTX PT&/FAMILY 60 MINUTES [facility], [address] [place], [place], [id number] , [place] tel: [phone] [facility] Alcohol dependence with withdrawal, uncomplicatedGenera lized Anxiety Disorder 5 Burak Taveras. [address] [place], [address], [place]. tel:[phone] PSYTX PT&/FAMILY 60 MINUTES [facility], [address] [place] [address], [id number] , [place] tel:+ [phone] [facility] Alcohol dependence with withdrawal, uncomplicatedGenera lized Anxiety Disorder 5 Burak Taveras. [address] [place], [address], [place]. tel: [phone] PSYTX PT&/FAMILY 60 MINUTES [facility], [address] [place] [address], [id number] , [place] tel:+ [phone] [facility] Alcohol dependence with withdrawal, uncomplicatedGenera lized Anxiety Disorder 5 Burak Taveras. [address] [place], [address], [place]. tel:[phone] PSYTX PT&/FAMILY 60 MINUTES [facility], [address] [place] [address], [id number] , [place] tel:+ [phone] [facility] Alcohol dependence with withdrawal, uncomplicatedGenera lized Anxiety Disorder 5 Burak Taveras. [address] [place], [address], [place]. tel:[phone] OFFICE/OUTPA TIENT VISIT, EST [facility], [address] [place] [address], [id number] , [place] tel:+ [phone] [facility] Vivitrol (chief complaint) Alcohol dependence, uncomplicatedBody mass index [BMI]30.0-30.9, adult 5 Rodri Taveras. [address] [place] [address], [address], [place]. tel: [phone] PSYTX PT&/FAMILY 60 MINUTES [facility], [address] [place] [address], [id number] , [place] tel: [phone] [facility] Alcohol dependence with withdrawal, uncomplicatedGenera lized Anxiety Disorder 5 Burak Taveras. [address] [place], [address], [place]. tel: [phone] PSYCH DIAGNOSTIC EVALUATION [facility], [address] [place] [address], [id number] , [place] tel: [phone] [facility] Alcohol dependence with withdrawal, uncomplicatedGenera lized Anxiety Disorder 5 Burak Taveras. [address] [place], [address], [place]. tel: [phone] OFFICE/OUTPA TIENT VISIT, [facility], [address] [place] [address], [id number] , [place] tel: [phone] [facility] Vivitrol (chief complaint) Vivitrol injection (chief complaint) Alcohol dependence, uncomplicatedBody mass index [BMI]30.0-30.9, adult 5 Rodri Taveras. [address] [place] [address], [address], [place]. tel: [phone] OFFICE/OUTPA TIENT VISIT, [facility], [address] [place] [address], [id number] , [place] tel: [phone] [facility] vivitrol (chief complaint) UDS (chief complaint) Alcohol dependence, uncomplicatedBody mass index [BMI] 29.0-29.9, adult 5 Rodri Taveras. [address] [place] [address], [address], [place]. tel: [phone] OFFICE/OUTPA TIENT VISIT, [facility], [address] [place] [address], [id number] , [place] tel: [phone] [facility] Vivitrol (chief complaint) Vivitrol injection (chief complaint) Alcohol dependence, uncomplicatedBody mass index [BMI] 29.0-29.9, adult Dec- 4 Rodri Taveras. [address] [place] [address], [address], . tel: [phone] OFFICE/OUTPA TIENT VISIT, [facility], [address] [place] [address], [id number] , [place] tel: [phone] [facility] Vivitrol (chief complaint) Alcohol dependence, uncomplicated Sep- 4 Rodri Taveras. [address] [place] [address], [address], [place]. tel: [phone] OFFICE/OUTPA TIENT VISIT, [facility], [address] [place] [address], [id number] , [place] tel: [phone] [facility] Vivitrol (chief complaint) Uncomplicated alcohol dependenceBody mass index [BMI] 28.0-28.9, adultLower leg edema Oct- 4 Rodri Taveras. [address] [place] [address], [address], [place]. tel: [phone] PSYTX PT&/FAMILY 60 MINUTES [facility], [address] [place] [address], [id number] , [place] tel: [phone] [facility] Alcohol dependence with withdrawal, uncomplicatedGenera lized Anxiety Disorder Sep- 4 Burak Taveras. [address] [place] [address], [address], [place]. tel: [phone] OFFICE/OUTPA TIENT VISIT, [facility], [address] [place] [address], [id number] , [place] tel: [phone] [facility] Vivitrol (chief complaint) Alcohol use disorderThrombocyto peniaBody mass index [BMI] 27.0-27.9, adult Sep- 4 Phu Shannon. [address] [place] [address], [address], [place]. tel: [phone] PSYTX PT&/FAMILY 60 MINUTES [facility], [address] [place], [place], [id number] , [place] tel: [phone] [facility] Alcohol dependence with withdrawal, uncomplicatedGenera lized Anxiety Disorder 4 Burak Taveras. [address] [place], [address], [place]. tel: [phone] PSYTX PT&/FAMILY 60 MINUTES [facility], [address] [place], [place], [id number] , [place] tel: [phone] [facility] Alcohol dependence with withdrawal, uncomplicatedGenera lized Anxiety Disorder 4 Burak Taveras. [address] [place], [address], [place]. tel: [phone] PSYTX PT&/FAMILY 60 MINUTES [facility], [address] [place], [place], [id number] , [place] tel: [phone] [facility] Alcohol dependence with withdrawal, uncomplicatedGenera lized Anxiety Disorder 4 Burak RICHARDSWilly Darcy. [address] [place], [address], [place]. tel: [phone] [facility], [address] [place] [address], [id number] , [place] tel: [phone] [facility] No Information 4 Phu Shannon. [address] [place], [address], [place]. tel: [phone] [facility], [address], [place], [id number] , [place] tel: [phone] [facility] Thrombocytopenia 4 Phu Shannon. [address] [place], [address], [place]. tel: [phone] OFFICE/OUTPA TIENT VISIT, EST [facility], [address] [place], [place], [id number] , [place] tel: [phone] [facility] Vivitrol (chief complaint) Lab draw (chief complaint) Need for hepatitis C screening testScreening for HIV (human immunodeficiency virus)Alcohol use disorderBody mass index [BMI] 27.0-27.9, adultEncounter for screening colonoscopyFood insecurityMaterial deprivation due to limited financial resources 4 Phu Shannon. [address] [place], [address], [place]. tel: [phone] PSYTX PT&/FAMILY 60 MINUTES [facility], [address] [place], [place], [id number] , [place] tel: [phone] [facility] Alcohol dependence with withdrawal, uncomplicatedGenera lized Anxiety Disorder 4 Burak Taveras. [address] [place], [address], [place]. tel: [phone] PSYTX PT&/FAMILY 60 MINUTES [facility], [address] [place] [address], [id number] , [place] tel: [phone] [facility] Alcohol dependence with withdrawal, uncomplicatedGenera lized Anxiety Disorder 4 Burak Taveras. [address] [place], [address], [place]. tel: [phone] PSYTX PT&/FAMILY 60 MINUTES [facility], [address] [place] [address], [id number] , [place] tel: [phone] [facility] Alcohol dependence with withdrawal, uncomplicatedGenera lized Anxiety Disorder 4 Burak Taveras. [address] [place], [address], [place]. tel: [phone] PSYTX PT&/FAMILY 60 MINUTES [facility], [address] [place] [address], [id number] , [place] tel: [phone] [facility] Alcohol dependence with withdrawal, uncomplicatedGenera lized Anxiety Disorder 4 Burak Taveras. [address] [place], [address], [place]. tel:[phone] PSYTX PT&/FAMILY 60 MINUTES [facility], [address], [place], [id number] , [place] tel: [phone] [facility] Alcohol dependence with withdrawal, uncomplicatedGenera lized Anxiety Disorder 4 Burak Taveras. [address] [place], [address], [place]. tel:[phone] PSYTX PT&/FAMILY 60 MINUTES [facility], [address], [place], [id number] , [place] tel: [phone] [facility] Alcohol dependence with withdrawal, uncomplicatedGenera lized Anxiety Disorder 4 Burak Taveras. [address] [place], [address], [place]. tel:[phone] PSYTX PT&/FAMILY 60 MINUTES [facility], [address] [place] [address], [place], [id number] , [place] tel: [phone] [facility] Alcohol dependence with withdrawal, uncomplicatedGenera lized Anxiety Disorder 4 Burak CASASSid Taveras. [address] [place], [address], [place]. tel: [phone] PSYTX PT&/FAMILY 60 MINUTES [facility], [address], [place], [id number] , [place] tel: [phone] [facility] Alcohol dependence with withdrawal, uncomplicatedGenera lized Anxiety Disorder 4 Burak Taveras. [address] [place], [address], [place]. tel:[phone] PSYTX PT&/FAMILY 60 MINUTES [facility], [address], [place], [id number] , [place] tel: [phone] [facility] Alcohol dependence with withdrawal, uncomplicatedAdjust ment disorder w/ mixed anxiety and depressed mood 4 Burak Taveras. [address] [place], [address], [place]. tel:[phone] PSYTX PT&/FAMILY 60 MINUTES [facility], [address], [place], [id number] , [place] tel: [phone] [facility] Alcohol dependence with withdrawal, uncomplicated Apr- 4 Burak Taveras. [address] [place], [address], [place]. tel: [phone] PSYTX PT&/FAMILY 60 MINUTES [facility], [address] [place], [place], [id number] , [place] tel: [phone] [facility] Alcohol dependence with withdrawal, uncomplicated March- 4 Burak Taveras. [address] [place], [address], [place]. tel: [phone] [facility], [address], [place], [id number] , [place] tel: [phone] [facility] No Information 4 Raciel Leslie. [address] [place], [address], [place]. tel: [phone] [facility], [address] [place] [address], [id number] , [place] tel: [phone] [facility] No Information 4 Klidas Shania. [address] [place] [address], [id number] , [place]. tel: [phone] [facility], [address], [place], [id number] , [place] tel: [phone] [facility] No Information 4 Klidas Shania. [address] [place], [place], [id number] , [place]. tel: [phone] [facility], [address] [place] [address], [id number] , [place] tel: [phone] Dental Clinic dn (chief complaint) Encounter for screening for dental disorders 4 Rashawn Sandoval. . tel: [phone] [facility], [address] [place] [address], [id number] , [place] tel: [phone] [facility] No Information 4 Gerber Jauregui. [address] [place] [address], [id number] , [place]. tel: [phone] [facility], [address] [place] [address], [id number] , [place] tel: [phone] [facility] dn (chief complaint) No Information 4 Gerber Jauregui. [address] [place] [address], [id number] , [place]. tel: [phone] Family History Family Member Type Diagnosis Age [...] ther Registry Pneumococcal conjugate PCV20 , polysaccharide YBS673 conjugate, adjuvant, PF administered Source: Other Re [...] ry Payers Payer name Insurance type Covered alliance party ID Authoriza tigerson(s) [employer] Medicare Adv [id number] Self Pay Cap [id number] Self Pay Cap [id number] Social History Type Description Quantity Date Captured Comments Alcohol Use Details Unknown Caffeine Use Details Unknown Tobacco Use Status No Information Smoking Status No Information Sex Male Sexual Orientation Straight or heterosexual March Gender Identity Male Chief Complaint And Reason For Visit No Information Reason For Referral Reason For Referral No Information Plan Of Treatment Date Type Action Status Goal Zoster vaccine (1st) due Goal Unhealthy drug use screening . Due on due Goal PRAPARE ASSESSMENT. Due on M due Goal Tdap Vaccine. Due on 2024 due Goal Depression screening. Due on due Goal Colonoscopy. Due on due Goal Lipid panel. Due on due Goal Influenza vaccine. Due on Oc due Goal Tdap. Due on due Goal Hepatitis C screening. Due o n due Goal Zoster vaccine (2nd). Due on due Goal Tdap. Due on due Goal Influenza vaccine. Due on Oc due Goal Colonoscopy. Due on due Goal Unhealthy drug use screening . Due on due Goal Zoster vaccine (2nd). Due on due Goal PRAPARE ASSESSMENT. Due on A due Goal Tdap Vaccine. Due on 2024 due Goal Hepatitis C screening. Due o n due Goal Zoster vaccine (1st) due Goal Lipid panel. Due on due Goal Depression screening. Due on due Goal Hep A. Due on du e Goal PRAPARE ASSESSMENT. Due on M due Goal Hepatitis C screening. Due o n due Goal Unhealthy drug use screening . Due on due Goal Tdap Vaccine. Due on 2024 due Goal Influenza vaccine. Due on Oc due Goal Tdap. Due on due Goal Lipid panel. Due on due Goal Colonoscopy. Due on due Goal Depression screening. Due on due Goal Zoster vaccine (1st) due Goal Hep A. Due on du e Goal Depression screening. Due on due Goal Unhealthy drug use screening . Due on due Goal Zoster vaccine (1st) due Goal PRAPARE ASSESSMENT. Due on due [...] Tdap Vaccine. Due on 2024 due Goal Unhealthy drug use screening . Due on due Goal PRAPARE ASSESSMENT. Due on due Goal Influenza vaccine. Due on Oc due Goal Depression screening. Due on due Goal Tdap. Due on due Goal Zoster vaccine () due Goal Lifestyle education regardin g diet [...] Influenza vaccine. Due on Oc due Goal Hep A. Due on du e Goal Zoster vaccine () due Goal Tdap Vaccine. Due on 2024 due Goal Lipid panel. Due on due Goal Tdap. Due on due Goal Colonoscopy. Due on due Goal PRAPARE ASSESSMENT. Due on due Goal Depression screening. Due on due Goal Hepatitis C screening. Due o n due Goal Influenza vaccine. Due on due Goal Zoster vaccine () due Goal Depression screening. Due on due Goal Lipid panel. Due on due Goal Unhealthy drug use screening . Due on due Goal Hepatitis C screening. Due o n due Goal Tdap. Due on due Goal Tdap Vaccine. Due on 2024 due Goal PRAPARE ASSESSMENT. Due on due Goal Colonoscopy. Due on due Goal Dietary management education [...] 2023 due Goal Influenza vaccine. Due on Oc due Goal Depression screening. Due on due Goal PRAPARE ASSESSMENT. Due on D due Goal Zoster vaccine (). Due on due Goal Unhealthy drug use screening . Due on due Goal Colonoscopy. Due on due Goal Lipid panel. Due on due Goal Hep A. Due on du e Goal Dietary management education , guidance, and counseling completed Goal PRAPARE ASSESSMENT. Due on N due Goal Hepatitis C screening. Due o n due Goal Colonoscopy. Due on due Goal Lipid panel. Due on due Goal Influenza vaccine. Due on due Goal Unhealthy drug use [...] on due Goal PRAPARE ASSESSMENT. Due on O due Goal Depression screening. Due on due Goal Tdap Vaccine. Due on 2023 due Goal Hepatitis C screening. Due o n due Goal Lifestyle education regardin g diet completed Goal Hepatitis C screening. Due o n due Goal Unhealthy drug use screening . Due on due Goal Tdap Vaccine. Due on 2023 due Goal PRAPARE ASSESSMENT. Due on S due Goal Tdap. Due on due Goal Colonoscopy. Due on due Goal Zoster vaccine (). [...] use screening . Due on due Goal Dietary management education , guidance, and counseling completed Goal Hepatitis C screening. Due o n due Goal Depression screening. Due on due Goal PRAPARE ASSESSMENT. Due on A due Goal Zoster vaccine (). Due on [...] Goal PRAPARE ASSESSMENT. Due on due Goal Hep A. Due on du e Goal Lifestyle education regardin g diet completed Goal FOBT. Due on due Goal Influenza vaccine. Due on due Goal Tdap Vaccine. Due on 2023 due Goal FIT. Due on due Goal PRAPARE ASSESSMENT. Due [...] Tdap Vaccine. Due on 2023 due Goal FOBT. Due on due Goal [...] Goal Depression screening. Due on due Goal FOBT. Due on due Goal Hepatitis C screening. Due o n due Goal FIT. Due on due Goal Influenza vaccine. Due on due Goal Zoster vaccine (). Due on due Goal CT-Colonography. Due on due Goal Unhealthy drug use screening . Due on due Goal PRAPARE ASSESSMENT. Due on due Goal Colonoscopy. Due on due Goal Tdap Vaccine. Due on 2023 due Goal Lipid panel. Due on due Goal Tdap. Due on due Goal FIT-DNA. Due on due Goal Colonoscopy. Due on due Goal Zoster vaccine (1st). Due on due Goal Unhealthy drug use screening . Due on due Goal FIT. Due on due Goal Hepatitis C screening. Due o n due Goal Tdap Vaccine. Due on 2023 due Goal Lipid panel. Due on due [...] due Goal CT-Colonography. Due on due Goal Zoster vaccine (). Due on due Goal Colonoscopy. Due on due Goal PRAPARE ASSESSMENT. Due on due Goal FOBT. Due on due Goal Lipid panel. Due on due Goal Tdap Vaccine. Due on 2023 due Goal FIT. Due on due Goal Hep A. Due on du e Goal Hepatitis C screening. Due o n [...] Tdap Vaccine. Due on 2023 due Goal Lipid panel. Due on due Goal FOBT. Due on due Goal PRAPARE ASSESSMENT. Due on due Goal FIT. Due on due Goal FIT-DNA. Due on due Goal Tdap. Due on due Goal Zoster vaccine (1st). Due on due Goal Depression screening. Due on due Goal Hep A. Due on du e Goal Lipid panel. Due on due Goal Unhealthy drug use screening . Due on due Goal CT-Colonography. Due on due Goal Depression screening. Due on due Goal FIT. Due on due Goal FOBT. Due on due Goal Colonoscopy. Due on due Goal Tdap. Due on due Goal Hepatitis C screening. Due o n due Goal FIT-DNA. Due on due Goal Zoster vaccine (1st). Due on due Goal Tdap Vaccine. Due on 2023 due Goal Influenza vaccine. Due on due Goal PRAPARE ASSESSMENT. Due on due Goal Influenza vaccine. Due on due Goal Unhealthy drug use [...] C screening. Due o n due Goal FIT-DNA. Due on due Goal Zoster vaccine (1st). Due on due Goal FIT-DNA. Due on due Goal Zoster vaccine (1st). Due on due Goal FIT. Due on [...] due Goal FIT-DNA. Due on due Goal Lipid panel. Due on 024 due Goal FOBT. Due on due Referral Ordered: Referrals: [facility]. Consult ordered Referral Ordered: COLONOSCOPY AND BIOPSY ordered History Of Present Illness Encounter Date Complaint History Of Prese nt Illness Vivitrol Alcohol was drug of choice, Last drink 03/27/2024. Sees Dracy Sumner for counseling 2X a month. No issues with injection. No problems with cravings.PHQ9: 0GAD7: 0UDS: Opiod+//JWHupp RNAbove noted. Patient here for Vivitrol injection for dose #8 for alcohol dependency. Denies any injection site concerns. PCP Dr Tong. Saw vascular specialist last month for edema to lower legs. States he will be having outpatient procedure in [place], laser procedure. Wants to do 4 veins; one each week. Dr Anibal Estrada. Had labs completed at [facility] approx 2 weeks ago ordered by PCP. Had bronchitis. States glucose came back elevated, but he was not fasting. Was prescribed antibiotic and steroids with inhaler. Feeling well today. States only recent med change was change to simvastin due to insurance from previous statin therapy. Denies any use of OTC supplements to cough meds. Denies any opioid or alcohol useJWest, [employer] Vivitrol injection Vivitrol inje ction given in LUOQ of buttock with 2 needle, tolerated well. Eric Yepez RN Vivitrol Presents for Yasmin itrol #7 LG, labs due 03/04. DOC ETOH last use 03/29/24. Valery Sumner at [facility] for counseling but is on hold right [...] he will be having outpatient procedure in [place], laser procedure. Wants to do 4 veins; [...] UDS UDS: Pt negative for all substances. Moi. Vivitrol injection Vivitrol inje ction given in LUOQ of buttock with 2 needle, tolerated well. Eric Yepez RN Vivitrol Presents for Yasmin itrol #5 LG, labs due 03/04. DOC ETOH, last use 03/29/24. Darcy Sumner at [facility] for counseling. Denies issues with last injection. [...] drink 03/29/24. Pt goes to counseling at [facility]. Pt denies cravings. UDS: Negative all substances. [...] drink 03/29/24. Pt goes to counseling at [facility]. Pt denies cravings. Pt states he experienced [...] use was 03/29/24, denies cravings, counseling through [facility] with Valery Sumner, last shot tolerated well.UDS [...] Pt attends counseling with Valery Sumner at [facility]. Pt has been on Naltrexone x3 months. Pt denies cravings. Pt denies tobacco and drug use. UDS: [id number] IM administered in LUOQ LG w/ 2 [...] 101, elevated glucose / M. MICHAEL [place] dn dn dn dn Functional Status Date Functional Assessmen t No Information Instructions Date Instruction Additional Infor charles 1. Continue with cou nseling2. Do not use opioids or any recreational drugs. Do not drink alcohol3. Return in 1 week to repeat urine and possibly receive next dose of Vivitrol Related to Alcohol dependence, uncomplicated Lifestyle education regarding di et Related to Body mass index [BMI] 30.0-30.9, adult Giving encouragement to exercise Related to [...]
--- OUTSIDE RECORDS SUMMARY | 2025-04-29 19:59 | XMS_ITS | CCD ---
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 Attending Unavailable Gideon Mace V. Admitting Unavailable Provider, None Primary Care Unavailable Rodri, Gideon Robison Attending Unavailable West, Gideon Robison Admitting Unavailable Provider, None Primary Care Unavailable Provider, None Primary Care Unavailable Rodri, Gideon Robison Admitting Unavailable Rodri, Gideon Robison Attending Unavailable Provider, None Primary Care Unavailable David Quevedo Admitting Unavailable David Quevedo Attending Unavailable David Quevedo Admitting Unavailable David Quevedo Attending Unavailable Provider, None Primary Care Unavailable Gideon Mace V. Attending Unavailable Gideon Mace V. Admitting Unavailable Provider, None Primary Care Unavailable Rodri, Gideon Robison Admitting Unavailable Provider, None Primary Care Unavailable Gideon Mace V. Attending Unavailable Allergies Allergy Classification Reported Allergen(s) Allergy Type Date of Onset Reaction(s) Facility (3 sources) Morphine; Translations: [morphine] Drug Allergy 2 Swelling of the Eye [facility] Repository (1 source) Morphine Drug Allergy 2 [facility] Repository (4 sources) Morphine Drug Allergy 2 [facility] Healthcare Medications Current Medications Medication Drug Class(es) [...] Classification Problem Date Documented Da te Episodic/Chronic Anxiety disorders (5 sources) Anxiety; Translations: [Anxiety disorder, unspecified] Onset: 4 12-13-2020 Chronic Deficiency and other anemia (5 sources) Anemia due to blood loss; Translations: [Iron deficiency anemia secondary to blood loss (chronic)] Onset: 4 04-04-2022 Chronic Disorders of lipid metabolism (5 sources) Hypercholesterolemia; Translations: [Pure hypercholesterolemia, unspecified] Onset: 4 12-13-2020 Chronic Diverticulosis and diverticulitis (4 sources) Diverticulitis; Translations: [Diverticulitis of intestine, part unspecified, without perforation or abscess without bleeding] Onset: 4 05-25-2024 Chronic Essential hypertension (9 sources) Essential (primary) hypertension; Translations: [Hypertensive disorder] Onset: 2 Chronic Hepatitis (1 source) Nonalcoholic steatohepatitis; Translations: [Other chronic nonalcoholic liver disease] Chronic Comment on above: Liver Biopsy 2020: T he findings are consistent with steatohepatitis with pericellular andperiportal fibrosis, regardless of the etiology, activity score ASAF grade 4 of8, fibrosis stage 2 of 4.; Osteoarthritis (4 sources) Traumatic arthropathy of the shoulder region; Translations: [Post-traumatic osteoarthritis, right shoulder] Onset: 4 05-25-2024 Chronic Other circulatory disease (5 sources) H/O: hypertension; Translations: [Personal history of other diseases of circulatory system] Episodic Other ear and sense organ disorders (4 sources) Bilateral hearing loss; Translations: [Conductive hearing loss, unilateral, right ear with restricted hearing on the contralateral side] Onset: 4 05-25-2024 Chronic Other ear and sense organ disorders (4 sources) Mixed conductive AND sensorineural hearing loss; Translations: [Mixed conductive and sensorineural hearing loss, unilateral, left ear with restricted hearing on the contralateral side] Onset: 4 05-26-2024 Chronic Other liver diseases (5 sources) Steatosis of liver; Translations: [Fatty (change of) liver, not elsewhere classified] Onset: 4 09-13-2021 Chronic Other liver diseases (4 sources) Hepatic fibrosis; Translations: [Hepatic fibrosis] Onset: 4 05-25-2024 Chronic Other nutritional; endocrine; and metabolic disorders (5 sources) Hemochromatosis; Translations: [Other hemochromatosis] Chronic Other nutritional; endocrine; and metabolic disorders (5 sources) Iron overload; Translations: [Other disorders of iron metabolism] Chronic Other nutritional; endocrine; and metabolic disorders (5 sources) Hereditary hemochromatosis; Translations: [HEREDITARY HEMOCHROMATOSIS] Onset: 2 Chronic Other nutritional; endocrine; and metabolic disorders (5 sources) Hemochromatosis, unspecified; Translations: [HEMOCHROMATOSIS UNSPECIFIED] Onset: 1 Chronic Other nutritional; endocrine; and metabolic disorders (1 source) Other disorders of iron metabolism; Translations: [OTHER DISORDERS OF IRON METABOLISM] Onset: 1 Chronic Other nutritional; endocrine; and metabolic disorders (5 sources) Hereditary hemochromatosis; Translations: [Hereditary hemochromatosis] Onset: 4 12-13-2020 Chronic Other screening for suspected conditions (not mental disorders or infectious disease) (5 sources) Measurement finding above reference range; Translations: [Other nonspecific findings on examination of blood] Episodic Phlebitis; thrombophlebitis and thromboembolism (1 source) Phlebitis and thrombophlebitis of superficial vessels of left lower extremity; Translations: [Phlebitis and thrombophlebitis of superficial vessels of left lower extremity] Onset: 5 Episodic Screening and history of mental health and substance abuse codes (5 sources) H/O: anxiety state; Translations: [Personal history of other mental disorders] Episodic Unclassified (3 sources) CONTACT W/AND (SUSP) EXPOS COVID-19; Translations: [CONTACT W/AND (SUSP) EXPOS COVID-19] Onset: 2 Varicose veins of lower extremity (1 source) Varicose veins of bilateral lower extremities with pain; Translations: [Varicose veins of bilateral lower extremities with pain] Onset: 5 Episodic Past or Other Problems Problem Classification Problem [...] Test Name Value Interpretation Reference Range Facility US LE Venous Duplex Righton 04-26-2025 US LE Venous Duplex Right EXAMINATION: US LE Venous Duplex Right HISTORY: Phlebitis and thrombophlebitis of superficial vessels of right lower extremity COMPARISON: Prior procedure. FINDINGS: REGION: Right lower extremity THROMBI: Heat induced and/or microfoam chemical ablation induced thrombus within superficial veins as expected. Thigh extension small saphenous vein. . No thrombus within the deep system. COMPRESSIBILITY: Non-compressibility of treated veins as expected. FLOW: Absent flow within the treated veins as expected. Normal waveform and antegrade flow within deep system. OTHER: None. IMPRESSION: 1. Successful post ablation occlusion of right small saphenous vein. Final Dictated by: David Quevedo MD Dictated DT/TM: 04/26/25 1:54 Signed (Electronic Signature): David Quevedo MD 04/26/25 1:56 pm Technologist: MG [facility] US Endovenous Ablation 1st V caleb 04-19-2025 US Endovenous Ablation 1st Vein EXAMINATION: US Endovenous Ablation 1st Vein , right small saphenous vein HISTORY: Varicose veins of bilateral lower extremities with pain COMPARISON: No relevant comparison available. TECHNIQUE: The risks and benefits of the procedure had been previously discussed, and were rediscussed at length. Informed written consent was obtained. Vee Prince and Chema Amaya assisted. Time out procedure was performed. The right lower extremity was prepared and draped in the usual sterile fashion. Duplex ultrasound probe was draped in a sterile cover, sterile transmission gel was used. Venous mapping was performed with the areas of dilation and large tributaries marked. The total length was 31 cm from the entry 3 cm above the lateral malleolus to the distal thigh, this was a thigh extension. The diameter of the small saphenous vein ranged from 4-6 mm. A 30 gauge needle and 1% buffered lidocaine was used to anesthetize the entry site. A 4 mm incision was made with a scalpel and the saphenous vein was entered percutaneously under direct ultrasound guidance with a micropuncture set, a single stick was successful in gaining access. A micro-guide wire was inserted and the needle removed. A micro-set including a dilator was inserted over the microwire and the needle and dilator were removed. A 0.018 guide wire was inserted through the micro-set and threaded through the saphenous vein. The dilator was removed and an introducer sheath was inserted over the wire. The dilator and wire were removed and the 600 micron fiber was introduced and placed and positioned so that it extended beyond the sheath. Final position of the fiber was determined by ultrasound guidance and duplex imaging. Tumescent anesthetic was delivered by ultrasound guidance. 150 cc of fluid was delivered along the entire course of the saphenous vein. The solution consisted of 1000 cc of normal saline with 40 mL of 1% lidocaine and 20 mL of sodium bicarbonate. A final positioning check was made. The energy source was turned on by means of the foot pedal and the fiber and sheath were withdrawn. The total number of Joules delivered was 1512. The laser was active for 189 seconds under continuous pulse, average laser use of 8 J. Laser start time 3:48 PM . Laser stop time 3:51 PM . A duplex ultrasound revealed compressibility and flow at the saphenofemoral junction immediately after the procedure. Hemostasis at the access site was achieved. The skin incision of the saphenous vein was closed with a 4 x 4. A compression stocking was applied. Postop instructions were given. A follow up appointment was recommended and scheduled. The patient tolerated the procedure well and was discharged in good condition . IMPRESSION: Technically successful endovenous laser ablation of the right small saphenous vein Final Dictated by: Gideon Mace MD Dictated DT/TM: 04/19/25 3:57 Signed (Electronic Signature): Gideon Mace MD 04/19/25 4:00 pm Technologist: GEETA [facility] Coding Summaryon 03-25-2025 Coding Summary HTMLBase 64 RcchtrnoEIs9jFy+PGhlYWQ+PE1 PRJRaF57xsNCtsP8vD5VRADgNRv hmJPNMYQqTGgNremZhUD6nyZDaL XJu IC8+JY6tMMIxZudgwELyo3O2dQF 8T60ztb1yJBuszRQ7JMVdKhQaen cat1zinZj6HPqaClawOzRv NNZgoO46FLJ2iM49Nz85dWKnaWM gm5kmyTf7UdAwHWObBOO2qFizNE eow5AcUVNmD84veKThk8X8 ITZbrEfinNDlNiFxaEH2uN6fMCi zppdia6wsvtcyVqs8xk88dYVgk9 A7jSS8J6KqtbY4CPRxwVWy DcgcjDLMlL5yypgxh6khxpmpDrB zHFRzTDl4IHh2NUIqaAqzQwImYH 64TXQ6DNOnnfBfD9VxAEFw zOulSjH2t9C5Da8YE0THKspfE3L NTUFSWTwvdGQ+QI52el77K9FoRa htXff4SZBpADV0fPQ3kO8g DKSiOYweb5Y3jDJ9T9RjpaBpfp4 rb9ozLUVbFVdwQ00uzZWmm9K0RV CwmCY8PLOfrSktErBroE22 Oyc+KMKdxXihg5KePppch5zhb6w ofLe5JbgqNRNrufQnqZkoREV3x4 OlFp7fKJErqCZ6iYO3kO2r FmTgOrT1IJnoN838LiYorMLlTud jP44yN9VibJR+FLYfSht6YDFbnZ ooTZ8oW2YyISGemslzcWEx pWzxOZ7fPUCivxuaYSTiiC2yPZY bX1j2WzFxSdG6FYugF1FdIAIrop gmVy20xS1sJsNeJgP0ENqb Y7FkngI1JBPveYCxIIcsDPC5J37 us1Z9ITCvCOAeFHW9vWK8eW4waO lnbjogbGVmdDsgdmVydGlj QGczOGxhG548UZUgtAriInKwJHj uZyBEYXRlOiAgMDUvMTYvMjAyNT wvdGQ+EVVkNWD9dAgfIILn uXWtMGrlGy3ckArogJvtXA0wDYI qinimRIYrxT3cSIPyiPFfmYzhTY 8qIXAmpvueo459PvDqWYQ8 ODMdgWRaB9RhcU9vXyVzAXIuJTU tU4AckGCcXKzdN798TEfrFqT0ZP GeesFoM7XeTMVrrPlsEhE4 r2Q3Ed0Zm1EhjxogF3KdbSKkRiY jKqesUMq1V1ZlGzndnHN+PC90YW HsGB37GIu8YKY2rFpzHRxz ONLcB1KumU7fUnXnYZPeQNYgOow +PHRhYmxlIHdpZHRoPScxMDAlJy TcmBbrAQ9yDr7tHUGeVJTh yXgykXEbPzJkw0skMIRkOYzaGG9 pyOjwW4DihQV4ROIgg3o7Wh52U9 8iE7XqqYX+NXRnmBR6lSA3 zX9dDoAsPnF4RPzxY041QlFijIZ oBpyku0jya3qxhNl3KhT7MBXhoe OgqDozVFV6f7PdZa25D47u IHdpZHRoPSIxNSUiIHZhbGlnbj0 rqR6bMu8+KZXafLU8kIV8bA6pAs WdAmU5RZqzK288SjWgtZJy Kvsrf9mjf9iviAy7ZkTdOMUcetK yrOruTCG0w5PgKa63W3XkxHufi6 QlBxm4hf40kBEgt6X6nYX4 S0MkKGHtgaecuBIwpToyVW6pXNW nbphpMVBvhA9zHIIvJ2q3DvOdTx D0VMygL9FkczE1OVRmnGEg QNDrxSMZcY4dsjami0uygjifKfO qOUIeHAd4QCd7ADUoqWsdKcPbMK R7GpT9BOF4gXNbaR0qgJys tvkrmM0dWlt+XLZ7oBNumLPOAP1 lOjwvdGQ+RWAnBSC7gPfeYLabFE XhwA1wZOKaQ6e7EdVrApJ3 JVdyT2SekaL7YSWqfHIeXRNhnYC WyB7bfmpzo9etvmdfGgWhFRPzOU v6TBu7SAXqkFloCmXlEOX5 IkS1VZA2lJFwcO3haNqdrceflP4 wOyc+WeatxXyqTXJ5MFm4D4KrIe y1GGKxeQcgPP0vnJHwIXmc Qn1gzCmqiBwfOZ1pBDZutdllx71 8DkLol2keMKKwiLKfTPjqCCN5K7 6tf6H2CQPbTCDjXTT9gVB3 tQ8wvTgjovlanJEmxUbydgTphCx dACvkVLirN582VZTupLnvEjTqUF s1O9ChCoj0NTDbiOzjQX8a eUBnFYiuCk6jsWgydIhuIJ4uGVR xiusrc688RvHgt2jdUAOgjYMqVV ehONU2H49la0D6RLJgBNTp RAI3dIV0sG2dhSmimxctpAJqhId jzcAxkWpxVIacPOdqR081RSPphW ouNkSyhJg4B3ThEaw5OOAw sGwyBP5lrUKmNAjkFa0zkObhzSa yDF1dPOEmugfbv993ZaQqx1qwTD LnlVPzFLfmRAL0T60ch3F9 ZYIcLVNsAOR3oEW0wD6fkIxlieu gbGVmdDsgdmVydGljYWwtYWxpZ2 46IHRvcDsnPlBhdGllbnQg QGgxXUt4S4DvVzvzkJM+ZW97COS qEC85wYAhlEDrf8pgxKk6NzEpEC TaQJN1bYmcQWdhk7YyRESa C19deAIru4E3QNYphHtesSXtVhP arTE4tO1sRRsnwrxqn8xlxgylYn fjn7ktrz90uH59T28eEAfr DWSlDHEcAZVdAWLpbNjbxy0syG8 wIi8+WNVmjXF8uPG5gU4oCQPoTc M1RFmcQ083LnFjlSUsZidh m7nfa9ftmVe8MaU5SJGznjSgoLc tGZK8o0FzUr52V70dXOzcNGQqDZ DfBSJcBNObpZpkow4qgT9y Ii8+FZIjhXZ1dGA9lU2uHnBgFkL 1CWffA417LsVosROkXektO32iY0 JvdXA+PRFdTby2ZEDbwAhy PG7ktRHhPYfpQa9qWIR8XaMcTbY jTHtyU3WxYXOjpvfupnlygWX4YV GhLQGegV74Zb6kmKrdTRWb tLFUwF5yyluse1dhatiqTyBqYIK iDZh0WFj9JQVtqJstZnSeENJ9Li E3DKG6eENozR2nqBslkrft uG4rS0XzQMXffsmoRe80bN1lDfX mXeN2BFfoDwg+GAcUU2gXRZJNPo 3XAA69BI44lYDzp6O2eDV2 A9VmGGPijevhzvpohTL5CAJuUYP dqL20rKYsFEgyIr1gc8E6m595WN ZoMFJhmF97Yr6adSzjISDk yOYCzR9morday4cleociTaXhAGF hYEi7YYl1SNUpwGvxJbXiCQW5Me S6QVB8mFOvmN1epEggegwp pS6iAkt+AUvnIVRkXZm5STtpyAJ +JASzWVN8kCgoGBtnTJTkvD0iUZ TpU8p0QzOeXaQ3VXvkW8Zk JVYbwzbxZl23vC4eKmSqRhA2TUr sH7EfydQ3PKBjaNZfNEnaLVK2Y7 5ss3U6GOGiBMUaMVK6eWC7 qB0mcZeydajiuJIlhZzkmvPokUo jCYubLSjsI838QVFtdAztQbM9ZB dbUAZnRW41HD82nSGcn0H0 aEY0Y2EaJNNjjbumzwbnpKM9GMJ sSXRcfM44uSYdIZrfFt5ze1V9n7 81EUQaCHAumJ56Sq0voPaq SAXdxRQZaZ4sufoda3qmegpxXbX kVNRrMZf0WLg1JTKhuAgtGoHyAQ P5YpE0SMK6cVLdiK3muDqj ptkocV6iSyr+TUFMRTwvdGQ+PHR yJZP0iHwmNJgtDXKokV7ePCKkP0 x6JqCqUrP6XWxtB0PsRRSp oljvWr22zO3nHmRbKkB0PEwdA1T vavV2BUPfpVPxAIyiQGX2Q59yz4 S9OXKzDHQhIFZ0tJJ3rZ2t bGlnbjogbGVmdDsgdmVydGljYWw cZHjlH112GBJleIkzIv5UCU19OK 19I2BfUvbcwSAqdWH+PHRh YmxlIHdpZHRoPScxMDAlJyBzdHl hWA8cJs2nXMUcANVpuXrnoRLcRl Cso5orHPPzDZzaTR2vbDaz E3NjtJF9FQGcy3d9Cl95K34vB1S vdXA+CRPysOY8hTQ0zL5rZwZpQd T4EGksB107AhIbdBKhFgwt k6smx5dvdDt6QjHuFPWtsgUejYp kHCH0t0HmTy67E89lSNtlKPJeLT YyTRTfAYSwaYaweg4gfS4u Ii8+XJBdnOE5qUO5uU0sCdKhKmC 5EFrvN153CxEnlQJnZaubC21rE9 JvdXA+OFOxHqw4XWYknZwb ER2usXCgLRumTs4xODM7QiJvFvX cQFfyH3SvQTOusmiufffqgMK8IV IlDLZesF58Zj9ncOjxIa2o IXAhPYT0KYXkcSQkF5TtbS1iBpR xAKGvMSPvK3YbzELtJWjgE492PG goKyQ5RISuccQnZ2MbDCZz wVirMvG4v2X6Cv3JoMafhZEnPN0 bTgFkANu9E2TpOgv8NMFnsWbfXG 4wwXErRUwuBd2dcWilwJur XH3wUHRmfbsgr865RuCrz1ztUJH xqXBxVLokLEG5I82jt8P1SLFnRR QeBZC6zCI4aC3qmOdchhip mHRlxEvwlfNusHyxTXlqXXhqO14 5IHMvpXlpOeDHFgk2P6KlVzc4EW DvfJnzIH5kzBDuNLqhGb1a rTcmiPfjKT3hGKMmbkxye504DjT gy6koYXCauXNkZZatCVE7Z25go4 Z9YDIjJKToDYT9lIW9sY9g bGlnbjogbGVmdDsgdmVydGljYWw mLCeqA888CRBquLarEt8PLrs5I3 TkLlw1DZXagToiIU8hxBKk NJkvZi9kuDwyxXbbPR3lGUGomyj iq325UmLcs1zxGWFnlXTwLBvlTS M5P71sz5V4FEJuBOJkSKA6 qRX9lX8ysYelvabohCJewTqorwI qsLjyHXorQMbhK602WUQpsCkzGq BheWVyOjwvdGQ+AL04nr99 X7PvItmdJxj1YLOhIME7vZD6sT6 gRJFuPAcyq9J6oJC3R0XtouOshy 2el1nkDTLmCTggA49mhMKq c2U (more content not included)... [facility] Coding Summaryon 03-18-2025 Coding Summary HTMLBase 64 FejpbowaWLw7kJs+PGhlYWQ+PE1 JGNBuG17lyFNblJ7vR1MBUWyFCx vgOQDGWFsNEoJwwgUiTH5jcVTcE XJu IC8+FG6yNCRgVxclrODqn6H8pOL 8W24vxj0uGRkawZE2EBNdBdBggr akr4tiwFr2WJxmExcyRvJt ANSpfF97IOD4iK00Ro97sUSjkOI sf7fgoLg5MoCkXQZyNRQ0mXcfMD lsi3HaHHIbB89peADhw3Y6 NWTxvFzdxLEpZnHtnGU2oZ7nEWi dnrrlt3oavokySta0kx90yMSxg5 M2fCP7L0NigsW1JCGntBVh IuandOVMzM1jbzugs0yfpdmkMnV zGFNfRVc9NNp9RTQxoYocLtMmOT 09FUB6LQZtvyHhX2HrKLWa bTstGuU3p0V6Sk4AS7TSYdizH9M NTUFSWTwvdGQ+TD85wh89E4XsFc viEsf3CWMdSUD2bYJ8cG5r IYBfXJeaq9Y3jRN0C5GmomOhkr2 oh0pxREWpDFaaZ85laVAik0I4NE GadOJ8ULNyvXizWnCyhS53 Oyc+TAEktVhve0AsZrmno8ujd9t wsLo5WcgbESMzmkQkaLdiGAC1e9 LgIi4fPSDewYH8wOJ9uA7t GjYmBfI3DSwuP889RcUfwHAdYmv yW68zN0BmvNJ+SNAbNfp2QGSyzQ brIC1uA0JbOSIkeityuKDg xXqmJE4pNHAkhczcYMDckE4rUJG uE5s1QoSyCjX2NErbB8YmBQYaxn rtQx55xZ6oVpGxRdG4YEmb K7GcwfR0LIUlxLYqLVpcPZG1X01 ge3T0UZIeWYJmJOZ7wSI3pG9vzG lnbjogbGVmdDsgdmVydGlj TMawTWleW062HBMnpWdgNpNzVXw uZyBEYXRlOiAgMDUvMDkvMjAyNT wvdGQ+TDKuXAN2hAfuZPSs rZEfZOilVz7wyZaeoMleGH0mRGC fnnjwYIZjqQ4wHYUfaBMxnNkqNF 0nWQJmrqtyi812QyUaJDA4 NIXagAQwL7BbvO6mZtSvOUYsJBC nF5LvtNPjTIlmA022KJiyNnP1GN AdbtXhM7EbQVKrsJjyGbM1 i1O8Hk7Fq0MagbbrI6RjdIHbVqL eZwsiKQk8T2ToNzjzhPK+PC90YW TtFZ29EBz4JXN2yZtfWNmx DLMiF8WowN7rTuNaCBHwGOLnYpn +PHRhYmxlIHdpZHRoPScxMDAlJy KooOqfSE9xOe8oDCFuEMJd oHfacSMmGjEno8zqQLPmVJqvYO8 xeArzI6TvlTK5AWVfh2s7Fe65U4 9tS0UlgUM+DQFybJP4oTW2 aH3zWnYwHiK3LWehH748ZwOryKW xGtljn2xmg7vppKq7NpP6SZGcsv ErhFavCXP3w0XnYq73K68b IHdpZHRoPSIxNSUiIHZhbGlnbj0 rbW4mGk0+UOMyvFY7uIQ1aA3dDd ZhUkV2KAggF188IiNdjSKc Whiwq8xqb8vsnIf9AiNjEAFuojW quLltNRF0k2CgLw05Q5SyaVtfw9 VaSrf2nv67hPNhl7W3tYO3 Y7KhJRLbvycxzFMqwCfmYK1lWEV yfkfsHBThxS6fBPYcP0t2RqSvNn J4LMenX5FcjpV7XKOgnPXq OZUipPDPmW9nqraep2rjkfyrZxV aTYOeAZo3JQi1WROsuZdvLfBkQJ Y8HtG9MAI6aUSrfJ5lrWyf jwgkxR4kDhi+WGI6iJLyaYWOIM5 lOjwvdGQ+VHIxDJF0jHrzLRlzOG QdmW4wNYMeE0z1DmWhDtU4 RPkuL2YqjhC8PDXqcWJjDNSzkZY OxG3qddtjm0pxofgkLcRkQEPfZD s5TNa6CJEzkHehRlWbUKG7 LaD5OSG2jWKohR3vgYatbnozuD1 wOyc+WurikFvzYQP1FSm3W3UbMj d1ARRriVzrNR6blBAcUEpx Pz5aoLymfIthOQ7oSHLvxojnw77 0UvLkw2fzIAFrwNNlNQkgHAK7M7 1yf2G8RWJfTEYqMLH1mCZ7 yO3tiYexhitpuLPfnNmjvgDgsGc wDIyhHPzkW608QMNwrUypLxWtQL u1Z7AuGea3HQKhxTclCK5h uUKcNIesDs1nhXiabUmwLW7vMQU xuqndx363LnMgh7qtSCGjsKYnSQ ojNLT9D42zg9K5LBUuRXZx ASL7qNF4wX3fiSbsulobsMNimNc zonHukPvbYJpuJQfgO734NGXrwI zrYnYbeZk5R5GmYtb3BLKx lZxpII5ljAYxBQloLp2iiYpvsVo dSO5uCFZlvcxmf700OoIhi1yoEK TwbUQwFHtfRAL6C72bh8J3 NJGtEISqYEW4jGT3zJ0caUkxzdo gbGVmdDsgdmVydGljYWwtYWxpZ2 46IHRvcDsnPlBhdGllbnQg LPrfNGe3K6ReFrbrcBP+YN84HLV mYB15qGTczLMbg5hkfWc2JnYoDU WgLCW8xLabKRsjn5ZhNNDl S63cjMSvg0Z3KDUayTyauNUlMgF zqFJ6oY7kQHvjdyzsc4fvpaxgDx obf4evcl65lK79N34kLKuh EKXtOQGvHEQkZVCthKkvoa3wiN1 wIi8+OWXznRS1xXF8jA0wSNBtUv G6KQioW344DhDxfZTmOryn t6nrq9ecpJy3YmP5BNZnywPbbEe uTOU6g9WuFa37E74kDAwiINTwAS UhFKHoJBUluHuean8ywN2j Ii8+GAOpmVV8jSH7aQ2aDqJoArP 1HBhrD107FjSbuCXaLwicP81sM7 JvdXA+XPIzIkg6YLAaxMdp LG5ssDQoUEfuLt8zRBU5ZoJtXaK fKZzbL0KyNBRwiecnbofulDC0LY JzSXYruU41Cf1mdOxiOGGn fZOZdH1bavadx7qdtasqIyIfJZG qJXm3VOt2GHSbuBhcAcAyDAO0Yv V0LAB4iUGkcS9fpHcmcbxe xK6vX8GgLJKqeohwUi82gS1sPwW yNbN9JCncXbs+JSmFQ5sXNOWNVb 0VXF01YM20lAXan2I6qRN1 W6NaLKFontwggfiiyME3AVVlCUE jlL43gEUhVRngRp5ht7M7b497ZG RcREWfpN94Ai8ayTdiZPYy dJIUkS8crprir6hicdsoPrBkJHZ nRKc3GWh7FJGlyZxbMsXcGUQ2Mg I8RZV2vLKijZ8knFpdedcw uD6zDhq+QPueQVLaKMr0UBxhzCP +FYGkSFT7mBqrZRcmSGUnoV4tON DaB8u4VmTnXsT6PMpeL8Bp YTZvztluUu98nQ1gSpAjVlY1XKz qR9TesnI8MBAigFXzMOvjMCB1I5 5nl6A7EQHxAUPmJQG4uEK5 mN7sqVpmiftjvDXssAgzgpEfyYf tQNqrHFoqD639CKPbyJenTgC2SF ceKPAaQS59QA52pPJzz3U5 zZJ9C3YiTVBktodanissrFE9MDK wBMTzgB73gGWzPYfpXq1oh0K1n1 70XKDiLICuyP97He2zyAbd VPFiqOTOgH1uwnnui0iqvnesTgB zWHDjOOu5LXj3OZWdiVetXxRtSO W2YfB8EPH0dUDwhP9amUna pafrpC9mWav+TUFMRTwvdGQ+PHR pMXU2uCodWPqoBHHldA0rZNKmT5 x3TrRmYqW9CRwgK2DxGHDi lhhdKd44dM8gSbCnGqO0OMpfY1Y enjU5YBJxhULsAJmxAUE4F94mo2 A8UYTvGXGzJWQ9nNG5yG0m bGlnbjogbGVmdDsgdmVydGljYWw oINsoG337XSFciXqvYc6ZWS06ZE 19Z7WfNvtwiWHaxAT+PHRh YmxlIHdpZHRoPScxMDAlJyBzdHl nMD2hHs4pVALbZLHtvBhnlKEyHx Hhm7djNNKbYRpfOB8vfWsk X7OrnZP6SEXhc0u9Yi47N76yZ8L vdXA+YAUqvZT8pFX4qA0qBmTjDk A1MQaaE882QxCfmGFoRttc s6vez8kvwWi0QnOuGWUxluFsnWy uUCR8g0BpYd01V89xLDccZWXtLM AfDGTsSAVtcKvrqk6ljW0c Ii8+FFBehWF8aVG6bC2aBhErRrA 5MQnjS770PyJgiVNgFhhoS19iT4 JvdXA+ZUFiPuk6ECYwiEkg FL4lbDKrGPxtDi1qPYO6QzFiHuS wFKzvU4MzXEPwvvwhdscwlJG8VB LdJXPlrT25Wk1pdPcgBg7w OPKrLXA2DGDknMKhR9AxwD7yZfF bUTLyACLmY2WnhOWbEOwsO622UY ygWpD4AFKoeaAyV0UdEQLt sPhzUbN3z5F1Wh8YwVosnEWwEQ7 tKlTlAQm1T2WiArz9QVStzTlzDP 9qmKGpZMplYz2ocNojqByl XR6gABZbkmypd215JoTxy5pbRXK ibYOtEWtgPVG1Z03qt0J4DBVzHO MxISP9bJF7mY6nfMpmyfdt iQYxlMdsryWucWoiTRseKFnpO71 3CBWuoPzfXzWPXsp7R2OyRpn1TL MwpNieOV4vsIRuRFheWm1l yRycrVahSO9sETGpdaayg216LiU ar6olLAOrrJOsIUgnOGE9T61cp9 F3GGZuFLGyIAX8lRI1uU9a bGlnbjogbGVmdDsgdmVydGljYWw vBSofN116PNOyaThpCl7BBcf0S6 LaBwe9SOUyaIfrVF8bpGWz RJtiAt1deLukcVlyJO6fLXFiszc qi582WrXac4ucDCUcxEFeDEhnLA V8O83tp7N1HMMzORTjBFF8 cGK4nH4ciEbyximclDYmfHldugK uwJrxJRvkGQmvC079IEEdzFxcJp BheWVyOjwvdGQ+DW74mq85 R7RsXzkvGan2FLWmLZS9jFS9uW0 sZSRwVNxyp6L3cVR9K8DdskXbmd 5fx5dsKFElEBnzC71ioZEc c2U (more content not included)... [facility] [place] LE Venous Duplex Lefton 0 03-17-2025 US LE Venous Duplex Left EXAMINATION: US LE Venous Duplex Left HISTORY: Phlebitis and thrombophlebitis of superficial vessels of left lower extremity COMPARISON: None. TECHNIQUE: Venous duplex examination performed using B-mode, color flow and spectral analysis. FINDINGS: Post ablation occlusion of the left great saphenous vein with heat-induced thrombosis 1.6 cm from the saphenofemoral junction. The thrombus extends from the groin to the mid calf in the region demonstrated. No deep vein thrombus. 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 Final Dictated by: Gideon Mace MD Dictated DT/TM: 03/17/25 3:42 Signed (Electronic Signature): Gideon Mace MD 03/17/25 3:43 pm Technologist: [facility] Coding Summaryon 03-16-2025 Coding Summary HTMLBase 64 JfznkryfJAt2qBx+PGhlYWQ+PE1 YEKTzI90eoBRljC2dY5PPNQdZPq wdMDROZMuTQlXjiyUxGW5biSXrH XJu IC8+PB8zSHTfRtiikPOti6V4bIT 7V37dih4lKWmasQR1OGMpGiQgpl yut8bzsMl4FWmaHjtnCuCh XLPlaR44NEY4sF24Qw64eXYwoQE rq7opuYp3PlCnOAMoSSJ3iMhvCD vrb8YpDVSlA39icXNuj0V2 OFOykEhogQGqKnCnxVO0mB6pUFc kearue8uxwsksKfm9jz70ePUnw8 C7nSG2A2SqleX6CFTomNFf DagguCLSnR8aoxsqj5mhzbdkMpT yYMJqLIl1LXt1GRQtrRtqCvEiJT 49LQL1LFSmfvDpR9DfGOCt wSfsViQ3w2X6Pp8YW4RSVllhA1I NTUFSWTwvdGQ+KK70oo90A6ZvKv elPbd7KZJuXCE1fFN9eZ1z OEIvEKmjf3W6jOH6D7XvcfXvuz8 ti4cbCYGyHUmkJ80gzCSlr3M3HC TxbRH8ZRKcjSlbEdMllB38 Oyc+DGEfjYxss2JvKrzbj8ejl4t vyTb9SfpbYCRnluOnmVpyLIF2k5 EyQo7dNSQmlAE3aWQ4mC2s PtAcDoT9EGkgT888SfOjgHReScp yL13mW9StxIQ+BQTiMdw8VHIitU zeZN7xU2McVKOvpdayxRQr gLuxZY2nLZUovlfuLDHdnK0oZKJ eL2a1XyGeHvC8LNcdY8JlNZBsxb viDz23pB4vBdVbKpA9ZWaz D3TndnN2ORIioWOxOJzvDYU3T06 jj8P2PFQhYLPwFYF5cNL8pJ5ntQ lnbjogbGVmdDsgdmVydGlj BXmcVLawH020OREdqWaqVaKkWPm uZyBEYXRlOiAgMDUvMDcvMjAyNT wvdGQ+DCCbVCZ8zTzgKTCr mKPmTWtzQl4rxKihmZyzDD4hLTM attnzNEKyoH4dVQBfnLBtiApyLS 1uKBHcfxlss218KuPlWVF2 KCShcITaP3MbpI3uOpFsGXFzUZE tV9VwaHPzHVunR443AFosFtN1CW HgkzZfY0CvEORiqZlaHbG2 p5G1Rm7Qu8JwacftS2FhkVTyEkV cDslaDEm2P1ZrTriayZI+PC90YW XcZE79QPk3KYB7vDfeSBjs ICEvL2UgcB5jHbWlNFIqXXHoXvm +PHRhYmxlIHdpZHRoPScxMDAlJy LjoUykVQ6rUo5pJPVyHZKa vHwumWQpLqHdk8ifQDKtBGqnWT2 ciSfjS8EqqGC1QMEac8d2Dk28B2 0zG5LsiWH+MDOuzQH0lPB1 eX2lPzAdSjP8WQleY368RhRtnUE rXfmnx6enr7iqtIn5TpH3JJJugf VnaQinDGZ6w6FzUt82B61s IHdpZHRoPSIxNSUiIHZhbGlnbj0 znS4tFk6+TPFsaAB7ySC6lG4pJe LyOsS0AWtjT556CrJysMXw Mhfoq0ehv2fgiXb6ZiGhQTTqhpP xoDglTOP0b5YgZf19T5ActGhgm6 MbLws4nh48jASux6Q8gLO3 E0PxFNRszcoxxWKoaCawDK3zCFN sfskiUKSmiD3vTOPfD6d3UkYnVa R6NOfgO5DheeR7WNDdmSUl KIMqsBMKzP3lxvnhx6hmlonuQrQ yWATkVMg6SUo7TKYjmWsbIoNlJN U4BhM2WFV5qUKqvI0qqAtn cwowiG1jSlv+YYJ3dUTblWMNLI2 lOjwvdGQ+NRAiJLC9yCsjVCgvIG WkwS7uAAXiH0v1CsEbBqX4 YWbjY7GdthB7LNVpxIUsWMEqgYH KqY9ufamsu2qgrpsgGnXpTIDeJY w2YMe9HFXvbHfnWkDqZKE7 PrL5TTD7iIKgnP0kiGaazlnfiR7 wOyc+NtveyWhcDMW8AAw6U5HxZn k6TPPdoCfpKC6hzMYhTQfk Sl8qyKnhxYtvOX6fYKGgpnkdw01 1UaXaj2qiRKGtsHSsUKhnLHK8J0 6by5L6TEOhISUcZFH6dHG3 gF7pvYuiiugvaABnnComncTyxWw gMKzbTQjxP419MUNvpIbgOcVcSC d9E7MkFvl1YWNwjHkaUD0w qFGlECmrHz1wlSrwtDixSC0gXTX omizkj330JsCnm6yhGUHvzVOeLF iaDQQ0R28ep1L7RQGoBQJp QCR5aRL5bU9bkAwhpshxbARetNd euwMltGiqILwuGDvuW984UYGqhA fnIaLwmUv7G1EuJbu1AZRc jXquJW9gqLZuOBfuTc3mwFpdeGt vRU7pJAUieuzvm047JlOpu2odCL IizMMsOGdzXZM0H74bb6E9 DQAoKFRmDMT5xMX4lK1axNmccje gbGVmdDsgdmVydGljYWwtYWxpZ2 46IHRvcDsnPlBhdGllbnQg CFqjUOp8R1GbKusqjKT+QU77PYZ wJT37lRBsdYYma3aszUe0BsOdDS FvGGX3vZwpZAhuw0KfRXUw O11ysAZzm7B9CNPatNoopPEgUuN quAE6eC4nTRqpdgrtz6wqfnjwFz tgo3upce70zB75N84gQVyq GMOgHQDrXUSoVAZkfWxxkl0wcJ6 wIi8+ZMWstYP9uOG2mB1uQEXhMq P4IZpiA374LlPxhHTwMkyn f5aet8xuaDf2YzD8EZYfptAjnBg lXOL6x9UbSk65A40eVHyrYATvOA ThUYDjTAIrdJrdxj0izD2m Ii8+VTDwfJR2pQB3iN5vQqWvErZ 3EGvbB910TeGgpCGaZhxfP24yC7 JvdXA+THJsPgh1VPAyeDfs TS3kuDXvVSkfVn1vUOB9UsHiHqO jAXllY4LiAUQmhidkcugydJL5NV ItNJRhcU95Ws8eqLusBXOa mNTMiP0hgatxb8mbxycgYdYuBBH kDGx2KLz3GNOonUrdCzRrUCN7Dv R9MYA1jRWuwV6hxPjrfkah xT1sL4SdTKEzyzzuXa79jM5xTmO iVuK1KMivBwm+KWoNE6eHAYZJFl 0HXQ62QP02wDNft1H3yIN5 Y2BlSIXkhumkaurgbMR3KYNpBWB zeL06jXBkLJffVe9km0I9z518DU AdYHElnK27Ex4ivPqpMHMg gGTAiK8bkzoxz2kxdgycRrXlCIO aCMu4HOv0TCPhlNutKpTpZRQ2Oy I8VVT4mEAbuN2ajGkjancl bW7iFzs+BWdgRERpGEi6VOpxyMX +XLUpZQB2uQtrZGmuPNOezH8sKD MgO3f1XdDzLjB7JWabP8Xy CQHazybnUo42jY3kHbSmDrQ5RVs uR3YvzeW9YGOwyRDjDAalRNK7T9 9zn8I9OROeNPJwAJU1oCT8 iN9eiQplprknbYTspVbrvpOczIs tAAxcLJxxD477IUOzsBiiLeX6RJ djILYhJU99LY93lFOio9J9 aWZ1M8NcBMKdyuviqbaspKU1IOO qZJNsoR14gMFpKKygWc9jt1W7u4 76ULDsMTFkhZ23Jt3ccIqu BBIrkFHIqM1xgqojf1kaqsyaJmE zEMHiREj2GTy3UVHyzJrfVcXbMP K6LoQ4UXI5mYCeeG3dqIik yjwudM7ePhp+TUFMRTwvdGQ+PHR hMTD9zSjxSYgrZBUqzJ9sOGZpQ5 u8DvQwDmZ0ATgyK0DoTFQb rpydMx40nG6aLjIsYjA1EUeoJ8Z psqI6ZNUieLBlPBgdRLB1B03qo8 T8UAWiORXrETS3aVT8lX4e bGlnbjogbGVmdDsgdmVydGljYWw bEUslE606RTWfwQouOt5TEM52VS 95S3XlCaydxMEncQS+PHRh YmxlIHdpZHRoPScxMDAlJyBzdHl gEU1cZf2hZOAoSAGdgKdlrWXwGs Gvv5amPTGcNLljMC0btRvv I9DvhIA8UVGfs8k4Dj60B47wN0J vdXA+HHEoxKJ6uPI7mZ4hBtKuUl B5RGduL728NsDnyTTzQrad b7yvw3bmkLr4LjOlLVJdokRkwNr tQVD8h3ZqUx94R21aVVjoBJHaEL UxPXHiIQUypSwtbt4dnT2e Ii8+JHWggCJ1kJS9kA9rRjIcVuY 4ELhxH682CoSidZZjKbvmC11cR9 JvdXA+JMRaIet2CBDvaZcb JY4dhJTeLZusOi9nSEC2GiXyAnZ gTEfdA0GzJUPckivbycccxIC3PY VrKNCnjQ82Nh8jgKpoSn9n AKFjCFC2YTPknRViD6HyjK4kQtA wMSAzLIDrA5IovYRrZApsC522JF fuJcC9WGEjsyYcM5UeZLJj qMlpVpX1d9D0Gs1YrBtryCUdUP3 hWwEcEYk9Z5RgKbk3EJFahSvaFB 2thZXhLGckAm1paEhhwAyd AU6kHBTruoobc552PoFsl6jsETG ppPHhKUrxLXB1A26yx0R2SVGiXP RhHQW5iWL3eE0wvEcuzddb cUFjnZonmbNmySxzQQhpDIiyN83 5KHRhcQqeTxQFKjq7S2OqTol2MI GqfGjdDM1tpKZnSTzfVh5r eMegqVqhBW1jBXQsqmhri714ItY yu1atIHSssLMzGUqlTIM9I96og3 V3EORbZIWhPGS0zJA6hP5o bGlnbjogbGVmdDsgdmVydGljYWw oHMkpK275BLBzmDlbQp4UXyr4F4 OsNay6ZFKviYcpHP5gcSXa ORtsDc5tnTxsuEgkXB7jSLVugjj hz911TsDrk2rqEVChhPAzDLrnQF Z1R90ep1R2UUBgEJVwUNM4 jKO8mM1rcPlhlmazqPFazLvqskD teJzgNQhsVVwvT861JEAjlSotJt BheWVyOjwvdGQ+SF08cq65 F7HvByckBai0CODtSME4uDP8fT8 vMRVbVIqbw3N6wBX3P9GshoRfor 1pv7tjGVWxKIefA25nnOQu c2U (more content not included)... [facility] US Endovenous Ablation 1st V claeb 03-10-2025 US Endovenous Ablation 1st Vein EXAMINATION: US Endovenous Ablation 1st Vein HISTORY: Varicose veins of bilateral lower extremities with pain The risks and benefits of the procedure had been previously discussed, and were rediscussed at length. Informed written consent was obtained. Chema Amaya RN and Teresa Prince RDMS, RVT assisted. Time out procedure was performed. The left lower extremity was prepared and draped in the usual sterile fashion to allow knee flexion in the sterile field. Duplex ultrasound probe was draped in a sterile cover; sterile transmission gel was used. Venous mapping was performed with the areas of dilation and large tributaries marked. The total length was 57 cm from the entry 5 cm above the ankle to 3 cm below the Saphenofemoral junction. The diameter of the left great saphenous vein ranged from 5.5 mm. A 30 gauge needle and 1% buffered lidocaine was used to anesthetize the entry site. A 4 mm incision was made with a scalpel and the saphenous vein was entered percutaneously under direct ultrasound guidance with a micropuncture set, a single stick was successful in gaining access. A micro-guide wire was inserted and the needle removed. A micro-set including a dilator was inserted over the microwire and the needle and dilator were removed. A guide wire was inserted through the micro-set and guided through the saphenous vein to the saphenofemoral or saphenopopliteal junction. The dilator was removed and an introducer sheath was inserted over the wire until the end of the sheath entered the saphenofemoral or saphenopopliteal junction. The dilator and wire was removed and the 600 micron fiber was introduced and placed and positioned so that it extended beyond the sheath and was 3 cm distal to the saphenofemoral or saphenopopliteal junction. Final position of the fiber was determined by ultrasound guidance and duplex imaging. Tumescent anesthetic was delivered by ultrasound guidance. 275 cc of fluid was delivered along the entire course of the saphenous vein. The solution consisted of 1000 cc of normal saline with 40 mL of 1% lidocaine and 20 mL of sodium bicarbonate. A final positioning check was made. The energy source was turned on by means of the foot pedal and the fiber and sheath were withdrawn appropriately. The total number of Joules delivered was 3196. The laser was active for 399 seconds under continuous pulse; average laser use of 8 J. Laser start time: 3:51 PM Laser stop time: 3:59 PM Date: 03/10/2025. A duplex ultrasound revealed compressibility and flow at the saphenofemoral or saphenopopliteal junction immediately after the procedure. Hemostasis at the access site was achieved. The skin incision of the saphenous vein was closed with a 4 x 4. A compression stocking was applied. Postop instructions were given. A follow up appointment was recommended and scheduled. The patient tolerated the procedure well. Final Dictated by: David Quevedo MD Dictated DT/TM: 03/10/25 4:07 Signed (Electronic Signature): David Quevedo MD 03/10/25 4:09 pm Technologist: [facility] Coding Summaryon 02-23-2025 Coding Summary HTMLBase 64 TkvzeewyIPr1oMx+PGhlYWQ+PE1 PMOAaG20pbGNhhM3wZ2XEZZdBVs wqEWVUOTvOHbOztpJtAQ1vfLFkW XJu IC8+UQ2tVNFxDokleJJuh7H7sXJ 6N52xjj9aLFxmuZS8LMNuGaJeju hky9kaiSv6MOooEzjzIuIl VEDacE27FXC3hH00Kt40tPBasHW ii4yssQz8EeYwGLPxRHU1bIzwUZ qse2MsQPLwN61puSEep4D3 SMSxoJjanRNlViCvoWG2oG6nXUu jysuef8mflvfoYwr0te57dYLfu9 I7dNP8F2JimfH5OKZyjGMc OrooxFZEzN7kpnkfz3wzknyhBoQ tTTEcNEk7CQu8HBSuyXeuUdZpFQ 43ARU2HOEzvtVlY5TxAXTz vPlgUkB4j2V5Yk5WT0WQRtyjM4P NTUFSWTwvdGQ+EC14zg13W4LxGm jhOcy0AHFcUEZ1cKL9yZ4a UFJlYHpwz9A1pIF7Z2WuoxOglf2 aq2cnCHRfUJktT69ydNJwg7N6JN CooAQ5QWZurCtjBwRukK16 Oyc+UOHnlRwpq4CdWmtwx4aah1r esOi0CiybNYTrkePttQceGQR0q1 HvZk9yJRRbgLJ6iJL8aP1r VvApTyS5JGouF322JrSrtIOfTsz eN48qJ1MieAO+ELQmPou6IZDafY lwML8xY0KaOQVoadvpbSCa vCmuSR5tQNIsioakEUErlQ7sVTZ lO0h7XnZmBeX9QFqqJ5FfAUYkpr zcDu62qJ0jGjNvCxU8UEbq E5EhikE5XZUnzTToTKffPIH6Y02 fz5G5VCHoPGDlDGZ3xCO2hR6hwD lnbjogbGVmdDsgdmVydGlj RNhhYQnwY229PBVtfPfpPzSoPYi uZyBEYXRlOiAgMDQvMTYvMjAyNT wvdGQ+RSDqUYT8qItrSXUg dTCmJUrzJz0hiOffaQkkCJ7bYQV rbxsrMLWirD7nZQSzjXVsbOypYM 9fNTMtqybto943KwXlIOL0 IGQvuNXlZ5UamS8vGrMkOAEnLQD gK9StfHCePLleZ259IGgtDbL7LF TtbeVjE8AvYWXpvGzhFvW9 x8G6Sa1Qu5ErbcmxT5FoyBDzIzS nLyopRVa6R7AmSxjijAJ+PC90YW ArIA35JAg5QNF7uHpsFVll YEHaB8YyaV4dNdHtOLByXBUiSwb +PHRhYmxlIHdpZHRoPScxMDAlJy SydCzbWO2zRd3iMVCuREKh bUdurBEpCaVvh1osDZLsCYuaXY7 zjWdyS4NqdLK8BDYyv0c6Dg67I9 8jA9BsuTX+OTJsoRO8dDO1 dK1yWwIuXiA4KBqzD980XwAfkNS nUetfj1xdl4ccfKy9YrM6AKNsbc YjxQopROQ1n1GbJu00P32u IHdpZHRoPSIxNSUiIHZhbGlnbj0 cfO2aCa7+XLNstJO0kRV9aQ8kBt VvGuP7RIwbN056FrIxhXAi Tgwdm0jdb7jxvFf9InFiLELooaO prXisGUT3b3EfAz93F6EtoDvhu9 EeNxq0rz99yMGlg7U6tFY1 B7QkIYXsqxrdlQKmnMxtGB9tFRT htpgfSWJniQ5jXKUaZ8w2AoGbYy F5EIwwK3AlvwQ4TAFjmHBb LHMxeUIJwF5xtpbzs9ltdrsqHdR vGDJxZIh2VOd5AXMfqBthYtEfGO H0CuQ1YYL7aZGglP6jcJau tpujsF9vQht+FCF2tWKmdSJYUH1 lOjwvdGQ+XXMoVDZ7yLfaCXyqDI VotH0xXKZqQ0l3QwFkRqG5 NAffD4PxpjJ1XRQxbCWtGRQdiSN NdS3nsdaeh2gjbzjrDkNaHPTySL v9MDi2WRJwkZzaZdGcJSW2 YjL3CPL1xQLkmJ4llLtouiziuG3 wOyc+SqvclBzvBIA0BAc7S6VoZa m5GGXmuChdEN5lqXZiFBwc Sg5dbWsxdLwqFE6vVSPqcdogw57 1BjRhg0brUVIacBCjTZtkOUP1O6 1au9N3ORAhRRQkJRC3iMY8 xX1poIybnawddSPnaHmqitUytKt jXHejTEtcB503CZEhuCjqRvAbLI p4L6AdXmd7OWNcnMylWK9t vXZlIRuaMi5fwWyzaCclZE0tTJX sgcoyf632ChZxk2ccFBAbhBGfLO coQAM4R22jy1L4KPDgLMBa NHO9pYG9gI7ooCcglsiiiGEkzNi vzeYesNdoVMlvEMozS587QSBqkL pjUdTvrBp4H9MrWnz8NERv uEfgAV9ynCTxHRtyZk8fjUkwkHe nXF8wVDDtttijy590WzXee4ciXQ PcaMZfJZxpYRV9E49fj9J9 PGUhDCDtJXR8eEW1iN7wdVxhpcj gbGVmdDsgdmVydGljYWwtYWxpZ2 46IHRvcDsnPlBhdGllbnQg ZPbtBIh6V5StGwkloQC+VS09UZA tWQ26qJGrgFVqq2spoQg7KwHhVV YsSDW4qJibGRgmt7WbUVZo I29nbWUjj1W8QSPqwOofaWZnNbZ bzBU7wD9bHCbwtgssm8dwhbckAt xuw1lhmy62mS60N68mRWil NTHyLRKmIBPxJKEzcNshte2oiQ4 wIi8+PLDosOG6qFQ0bR1iXRDeRa G2WWmeB023ImYmiFBgZnwb s7nvw3novXt6EhE3GBSpgjDydOm wFKP0x9FwGm36M58iFZjzIHZiBX OtSPYqFDHhkGtxxo5eqV1j Ii8+OELoiFM6iUO6nI0vIfNlOdT 3PRfnZ611LpDifBFdYndpX35gJ0 JvdXA+XQBaLdc5TDMlyOsg TS6kpHNkWVarUe8bNJE6RsBgNwB kTSwdZ9MpHPXgchtxbydtaKC4KO FaTRYyaR69Ey1weVicCDNp mTSZpH6frdbxq5mduqqwOiXdDDC yDUi2GGm7MBGacPhcAlGkBCV3Vt A2HDZ0pNAqjP9gxTufirii dF8eO0NdYVXcnomgDv38pQ4dInV wViI6BVovUal+BCbMD6bIBHRCQc 9WLS57LW45rHIjb6L0xCL0 H0GuEPXqozttmtdrsFO5ZQKzVHR mfJ26pFIsPGnwWx5ve3Z6u724UD JiNZUsmJ30Oc4qzVhiIVZe tIUYkS8mihtic9ufyybqZsUaUYI bECk6IPb3CTYyqYebAaEmZCG4Ll H0CEO2sRQbgC6clZllquzx bO2gPuh+MUgjOYIbCNc1YUbfzPC +SVTuGVG8dEcqJWoqZIPxrZ5uXO UoL4z9FdDpKkN1EAfqD0Wg AQHpnkgeHr35dU1nHfLdHoE0PJs fB0DejdA3KJBthVAuDJqzDBL2F2 9ra7D5LYIkETUtFVN9vPF1 qG2raCyvxgrjiUNnnWwaftYlgNr fMHowDZpvI375BIZrqEeaMxP3DU ulPMBhEO65LW97vMYmp3U9 yLF4L5GvETMtetfraxvvaRW6AAH hRZEgeV20iKWeJVslAp5od9L6b7 38OGBfLRJclO58Tm2ssKgc ROGmbXTJmG6yaiqwg0cxbtlzVtA kLCNePCm7HXw0QAMksHylHxWmTB L5XfP9NDH0nXJvkD6ezCtn ybilpX4vCly+TUFMRTwvdGQ+PHR nVZE9kZmfVKvrYNSjpV7oRWYwK3 x2YuPvWpV0BRhhL8XvPYEv bcksAq29cL3eMuXpTkU3JSfrB2I gdoP2WTEugQXoKLjkZRE2Z52is6 X3KVZpPWRdRCL9sUW8dT2i bGlnbjogbGVmdDsgdmVydGljYWw wGEglZ552ZYIzzHtqPn5CJN01NB 18P1IhDujrgTXnjKW+PHRh YmxlIHdpZHRoPScxMDAlJyBzdHl dWA8aIn3kBSKbJLJddVuwtFAgEo Fvh4nkNUPnEXqbDK2xlKhc W2KquKG5RCIds5j5Mj12T95aU7D vdXA+NIOtlPG5sIA7eC7qUqXhFq F1NGvbE885RcWwtKDrLqxm u1ilq9pogOg3UtUzHCZfyhRczXj jNUL1y3AjUy31V16qZHupHZMwOD NqEIGfWRAyjSumkd7yfD4e Ii8+BFAutEB2pBG2bD7kHqCpJtG 0IPhfE129AwZiaXRfUrnoY13dN6 JvdXA+HHSvTkh7ATVqbPre CJ3fgBXgYWzfOc6hEOC9BwVyYdN eZKlbN9QuWOMhefiakvsukOG0PW VuXTIdzD95Lc3hnBimRf7j SCNySEH0SSAlmMMfW5SexX1wLyP eHDZeMXWlA5QlrTPjRKcjG711EA syAjS8QMOjvgVaF5WqAKSz iGgtInJ5i0W2Nt3MlZrmkUScLN8 xTbPqQEj7E7LeKzu6YKNymHjkFG 5xzSScIXsaKo1uoMsbrTto SF9cMCYhrcrnd829CaBcg5kcQFC ewIQkAJtyPMV5Q17uv7X9OPWqJC MkAUF3mBD5nO8lwSwnpbho kBHbmUynobZvtQidNPkhTSjqA80 5ONSiyEmlYvYDFst3E9ZnMxh5TS GcaOndTC2zpDYrQUzyKg3k tOgalItvAS0vWCJaohuwe900PbH ba1izBVQusKRmDDnyVLK1O27gs5 O5SUMuQXSkLQN4mMR8dK3m bGlnbjogbGVmdDsgdmVydGljYWw mDZelO818PPBbhOqxYd3LHxa9B4 EyDia3JYRzvQtgPN4gtQIm BFyfKh1auNkmkXymTB5fNYSqtff zi880NtPls7eyMYDxrWVoKYpjNB R3M57gz2L1YWOoEGIdHTT5 nPJ7sX6qdBcbiljodULedUwhflR xnFlvAOcnGRnmX279HGEsnDxdEm BheWVyOjwvdGQ+UX64wf62 N1ZqDhrtUlk1UMEwLWX9rTK1qL2 iQUNnARfyq4Y7hMM4D2WnweAhpj 1qj6juMACvRCqtD49vpIRv c2U (more content not included)... [facility] US LE Venous Duplex Righton 02-17-2025 US LE Venous Duplex Right EXAMINATION: US LE Venous Duplex Right HISTORY: Phlebitis and thrombophlebitis of superficial vessels of right lower extremity FINDINGS: REGION: Right lower extremity THROMBI: Heat induced and/or microfoam chemical ablation induced thrombus within superficial veins as expected. Thrombus distance from the saphenofemoral junction is 1.8 cm. No thrombus within the deep system. COMPRESSIBILITY: Non-compressibility of treated veins as expected. FLOW: Absent flow within the treated veins as expected. Normal waveform and antegrade flow within deep system. OTHER: None. IMPRESSION: 1. Successful post ablation occlusion of right great saphenous vein. Final Dictated by: David Quevedo MD Dictated DT/TM: 02/17/25 2:20 Signed (Electronic Signature): David Quevedo MD 02/17/25 2:21 pm Technologist: [facility] US Endovenous Ablation 1st V caleb 02-10-2025 US Endovenous Ablation 1st Vein EXAMINATION: US Endovenous Ablation right great saphenous vein HISTORY: Varicose veins of bilateral lower extremities with pain COMPARISON: No relevant comparison available. TECHNIQUE: The risks and benefits of the procedure had been previously discussed, and were rediscussed at length. Informed written consent was obtained. Vee Prince and Chema Amaya assisted. Time out procedure was performed. The right lower extremity was prepared and draped in the usual sterile fashion to allow knee flexion in the sterile field. Duplex ultrasound probe was draped in a sterile cover, sterile transmission gel was used. Venous mapping was performed with the areas of dilation and large tributaries marked. The total length was 62 cm from the entry 4 cm above the medial malleolus to 3 cm below the saphenofemoral junction. The diameter of the greater saphenous vein ranged from 5-7 mm. A 30 gauge needle and 1% buffered lidocaine was used to anesthetize the entry site. A 4 mm incision was made with a scalpel and the saphenous vein was entered percutaneously under direct ultrasound guidance with a micropuncture set, a single stick was successful in gaining access. A micro-guide wire was inserted and the needle removed. A micro-set including a dilator was inserted over the microwire and the needle and dilator were removed. A 0.018 guide wire was inserted through the micro-set and threaded through the saphenous vein to the saphenofemoral junction. The dilator was removed and an introducer sheath was inserted over the wire until the end of the sheath entered the saphenofemoral junction. The dilator and wire were removed and the 600 micron fiber was introduced and placed and positioned so that it extended beyond the sheath and was 3 cm peripheral to the saphenofemoral femoral junction. Final position of the fiber was determined by ultrasound guidance and duplex imaging. Tumescent anesthetic was delivered by ultrasound guidance. 225 cc of fluid was delivered along the entire course of the saphenous vein. The solution consisted of 1000 cc of normal saline with 40 mL of 1% lidocaine and 20 mL of sodium bicarbonate. A final positioning check was made. The energy source was turned on by means of the foot pedal and the fiber and sheath were withdrawn. The total number of Joules delivered was 3105. The laser was active for 388seconds under continuous pulse, average laser use of 8 J. Laser start time 2:45 PM . Laser stop time 2:52 PM . A duplex ultrasound revealed compressibility and flow at the saphenofemoral junction immediately after the procedure. Hemostasis at the access site was achieved. The skin incision of the saphenous vein was closed with a 4 x 4. A compression stocking was applied. Postop instructions were given. A follow up appointment was recommended and scheduled. The patient tolerated the procedure well and was discharged in good condition . IMPRESSION: Technically successful endovenous laser ablation of the right great saphenous vein Final Dictated by: Gideon Mace MD Dictated DT/TM: 02/11/25 5:07 Signed (Electronic Signature): Gideon Mace MD 02/11/25 5:10 am Technologist: [facility] Outside Recordson 12-28-2024 Outside Records [id number] Report on 12-28-2024 Rad - Other Radiology Report [id number] [id number]#[id number] In office Testingon 01-29-20 23 In office Testing [id number]:127 Normal [facility] AMYLASEon 11-26-2021 Amylase [Catalytic activity/Vol] 53 U/L Normal 31-110 [facility] Comment on above: Performed By: #### T 7, LIPA, TSH, AMADOU, CMP #### [facility] [address] [place] [address] Dr. Krystle Heaton CBC AUTO DIFFon 11-26-2021 BASO # 0.0 103/ul Normal 0.0-0.1 [facility] Comment on above: Performed By: #### F ERR #### [facility] [address] [place] [address] Dr. Krystle Heaton Basophils/100 WBC (Bld) 0.6 % Normal 0.2-2.0 [facility] Comment on above: Performed By: #### F ERR #### [facility] [address] [place] [address] Dr. Krystle Heaton EO # 0.1 103/ul Normal 0.0-0.7 [facility] Comment on above: Performed By: #### F ERR #### [facility] [address] [place] [address] Dr. Krystle Heaton Eosinophils/100 WBC (Bld) 2.7 % Normal 0.9-7.0 [facility] Comment on above: Performed By: #### F ERR #### [facility] [address] [place] [address] Dr. Krystle Heaton Erythrocyte distribution width (RBC) [Ratio] 16.0 % Critically high 11.0-15.0 [facility] Comment on above: Performed By: #### F ERR #### [facility] [address] [place] [address] Dr. Krystle Heaton Hematocrit (Bld) [Volume fraction] 42.8 % Normal 42.0-54.0 [facility] Comment on above: Performed By: #### F ERR #### [facility] [address] [place] [address] Dr. Krystle Heaton Hemoglobin (Bld) [Mass/Vol] 13.0 g/dL Critically low 14.0-18.0 [facility] Comment on above: Performed By: #### F ERR #### [facility] [address] [address] [address] Krystle Heaton IG # 0.02 10e3/ul Normal 0.00-0.03 [facility] Comment on above: Performed By: #### F ERR #### [facility] [address] [address] [address] Krystle Heaton IG % 0.4 % Normal 0.0-0.5 [facility] Comment on above: Performed By: #### F ERR #### [facility] [address] [place] [address] Dr. Krystle Heaton LYMPH # 0.9 103/ul Critically low 1.2-3.8 [facility] Comment on above: Performed By: #### F ERR #### [facility] [address] [place] [address] Dr. Krystle Heaton Lymphocytes/100 WBC (Bld) 19.1 % Critically low 20.5-60.0 [facility] Comment on above: Performed By: #### F ERR #### [facility] [address] [place] [address] Dr. Krystle Heaton MANUAL DIFF REQ NO Normal [facility] Comment on above: Performed By: #### F ERR #### [facility] [address] [place] [address] Dr. Krystle Heaton MCH (RBC) [Entitic mass] 27.7 pg Normal 25.9-34.0 [facility] Comment on above: Performed By: #### F ERR #### [facility] [address] [place] [address] Dr. Krystle Heaton MCHC (RBC) [Mass/Vol] 30.4 g/dL Normal 29.9-35.2 [facility] Comment on above: Performed By: #### F ERR #### [facility] [address] [place] [address] Dr. Krystle Heaton MCV (RBC) [Entitic vol] 91.1 fL Normal 80.0-94.0 [facility] Comment on above: Performed By: #### F ERR #### [facility] [address] [place] [address] Dr. Krystle Heaton MONO # 0.5 103/ul Normal 0.3-0.8 [facility] Comment on above: Performed By: #### F ERR #### [facility] [address] [place] [address] Dr. Krystle Heaton Monocytes/100 WBC (Bld) 10.4 % Normal 1.7-12.0 [facility] Comment on above: Performed By: #### F ERR #### [facility] [address] [place] [address] Dr. Krystle Heaton NEUT # 3.2 103/ul Normal 1.4-6.5 [facility] Comment on above: Performed By: #### F ERR #### [facility] [address] [place] [address] Dr. Krystle Heaton Neutrophils/100 WBC (Bld) 66.8 % Normal 43.0-75.0 [facility] Comment on above: Performed By: #### F ERR #### [facility] [address] [place] [address] Dr. Krystle Heaton Platelet mean volume (Bld) [Entitic vol] 11.3 fL Normal 9.5-13.5 [facility] Comment on above: Performed By: #### F ERR #### [facility] [address] [place] [address] Dr. Krystle Heaton PLT 177 103/ul Normal 150-450 [facility] Comment on above: Performed By: #### F ERR #### [facility] [address] [place] [address] Dr. Krystle Heaton RBC 4.70 106/ul Normal 4.70-6.10 [facility] Comment on above: Performed By: #### F ERR #### [facility] [address] [place] [address] Dr. Krystle Heaton WBC 4.8 103/ul Normal 4.0-11.0 [facility] Comment on above: Performed By: #### F ERR #### [facility] [address] [address] [address] Krystle Heaton FERRITINon 11-26-2021 Ferritin [Mass/Vol] 63.0 ng/mL Normal 17.9-464.0 [facility] Comment on above: Performed By: #### C BC #### [facility] [address] [place] [address] Billy Delvin FREE THYROXINE INDEX T7on FTI 2.14 Normal [facility] Comment on above: Performed By: #### T 7, LIPA, TSH, AMADOU, CMP #### [facility] [address] [place] [address] Dr. Krystle Heaton T3U 34.0 % Normal 23.5-40.5 [facility] Comment on above: Performed By: #### T 7, LIPA, TSH, AMADOU, CMP #### [facility] [address] [place] [address] Dr. Krystle Heaton T4 [Mass/Vol] 6.30 ug/dL Normal 5.53-11.00 [facility] Comment on above: Performed By: #### T 7, LIPA, TSH, AMADOU, CMP #### [facility] [address] [place] [address] Dr. Krystle Heaton LIPASEon 11-26-2021 Lipase [Catalytic activity/Vol] 115.0 U/L Normal 23.0-300.0 [facility] Comment on above: Performed By: #### T 7, LIPA, TSH, AMADOU, CMP #### [facility] [address] [place] [address] Dr. Krystle Heaton PROF 14(COMP METB)on 022 Albumin [Mass/Vol] 3.6 g/dL Normal 3.5-5.0 [facility] Comment on above: Performed By: #### T 7, LIPA, TSH, AMADOU, CMP #### [facility] [address] [place] [address] Dr. Krystle Heaton Albumin/Globulin [Mass ratio] 0.9 {ratio} Normal [facility] Comment on above: Performed By: #### T 7, LIPA, TSH, AMADOU, CMP #### [facility] [address] [address] [address] Krystle Heaton ALP [Catalytic activity/Vol] 94 U/L Normal 38-126 [facility] Comment on above: Performed By: #### T 7, LIPA, TSH, AMADOU, CMP #### [facility] [address] [place] [address] Dr. Krystle Heaton ALT [Catalytic activity/Vol] 103 U/L Critically high 21-72 [facility] Comment on above: Performed By: #### T 7, LIPA, TSH, AMADOU, CMP #### [facility] [address] [place] [address] Dr. Krystle Heaton Anion gap [Moles/Vol] 12.8 mmol/L Normal [facility] Comment on above: Performed By: #### T 7, LIPA, TSH, AMADOU, CMP #### [facility] [address] [place] [address] Dr. Krystle Heaton AST [Catalytic activity/Vol] 148 U/L Critically high 17-59 [facility] Comment on above: Performed By: #### T 7, LIPA, TSH, AMADOU, CMP #### [facility] [address] [place] [address] Dr. Krystle Heaton Bilirubin [Mass/Vol] 1.2 mg/dL Normal 0.2-1.3 [facility] Comment on above: Performed By: #### T 7, LIPA, TSH, AMADOU, CMP #### [facility] [address] [place] [address] Dr. Krytsle Heaton Calcium [Mass/Vol] 9.1 mg/dL Normal 8.4-10.2 [facility] Comment on above: Performed By: #### T 7, LIPA, TSH, AMADOU, CMP #### [facility] [address] [place] [address] Dr. Krystle Heaton Chloride [Moles/Vol] 100 mmol/L Normal 98-107 [facility] Comment on above: Performed By: #### T 7, LIPA, TSH, AMADOU, CMP #### [facility] [address] [place] [address] Dr. Krystle Heaton CO2 [Moles/Vol] 26.7 mmol/L Normal 22.0-30.0 [facility] Comment on above: Performed By: #### T 7, LIPA, TSH, AMADOU, CMP #### [facility] [address] [address] [address] Krystle Heaton Creatinine [Mass/Vol] 0.94 mg/dL Normal 0.66-1.25 [facility] Comment on above: Performed By: #### T 7, LIPA, TSH, AMADOU, CMP #### [facility] [address] [address] [address] Krystle Heaton EGFR-AF CHINESE >60 Normal >=60 [facility] Comment on above: Performed By: #### T 7, LIPA, TSH, AMADOU, CMP #### [facility] [address] [place] [address] Dr. Krystle Heaton EGFR-NON AF CHINESE >60 Normal >=60 [facility] Comment on above: Performed By: #### T 7, LIPA, TSH, AMADOU, CMP #### [facility] [address] [address] [address] Krystle Heaton Globulin (S) [Mass/Vol] 4.0 g/dL Normal [facility] Comment on above: Performed By: #### T 7, LIPA, TSH, AMADOU, CMP #### [facility] [address] [address] [address] Krystle Heaton Glucose [Mass/Vol] 112 mg/dL Critically high 74-106 [facility] Comment on above: Performed By: #### T 7, LIPA, TSH, AMADOU, CMP #### [facility] [address] [address] [address] Krystle Heaton Potassium [Moles/Vol] 4.5 mmol/L Normal 3.4-5.0 [facility] Comment on above: Performed By: #### T 7, LIPA, TSH, AMADOU, CMP #### [facility] [address] [address] [address] Krystle Heaton Protein [Mass/Vol] 7.6 g/dL Normal 6.1-8.2 [facility] Comment on above: Performed By: #### T 7, LIPA, TSH, AMADOU, CMP #### [facility] [address] [place] [address] Dr. Krystle Heaton Sodium [Moles/Vol] 135 mmol/L Critically low 137-145 [facility] Comment on above: Performed By: #### T 7, LIPA, TSH, AMADOU, CMP #### [facility] [address] [place] [address] Dr. Krystle Heaton Urea nitrogen [Mass/Vol] 5.0 mg/dL Critically low 9.0-20.0 [facility] Comment on above: Performed By: #### T 7, LIPA, TSH, AMADOU, CMP #### [facility] [address] [place] [address] Dr. Krystle Heaton Urea nitrogen/Creatinine [Mass ratio] 5.3 mg/mg Normal [facility] Comment on above: Performed By: #### T 7, LIPA, TSH, AMADOU, CMP #### [facility] [address] [place] [address] Dr. Krystle Heaton TSHon 11-26-2021 TSH 1.842 uIU/mL Normal 0.470-4.680 [facility] Comment on above: Performed By: #### T 7, LIPA, TSH, AMADOU, CMP #### [facility] [address] [place] [address] Dr. Krystle Heaton TSH RANGE SEE BELOW Normal [facility] Comment on above: Result Comment: <0.3 4 UIU/ml HYPERTHYROID 0.34-5.60 UIU/ml EUTHYROID >5.60 UIU/ml HYPOTHYROID Performed By: #### T 7, LIPA, TSH, AMADOU, CMP #### [facility] [address] [place] [address] Dr. Krystle Heaton [facility]on SARS-CoV-2 (COVID-19) RNA JIMBO+probe Ql (Unsp spec) Not detected Normal NOT DETECTED [facility] Comment on above: Result Comment: This test is not yet approved or cleared by the [place] FDA. When there are no FDA-approved or cleared tests available, and other criteria are met, FDA can make tests available under an emergency access mechanism called an Emergency Use Authorization (EUA). The EUA for this test is supported by the [place] of Health and Human Service's (HHS's) declaration [...] SARS-CoV-2. Performed By: #### F ERR #### [facility] [address] [place] [address] Dr. Krystle Heaton CBC AUTO DIFFon 10-08-2021 BASO # 0.0 103/ul Normal 0.0-0.1 [facility] Comment on above: Performed By: #### T 7, LIPA, TSH, AMADOU, CMP #### [facility] [address] [place] [address] Dr. Krystle Heaton Basophils/100 WBC (Bld) 0.7 % Normal 0.2-2.0 [facility] Comment on above: Performed By: #### T 7, LIPA, TSH, AMADOU, CMP #### [facility] [address] [place] [address] Dr. Krystle Heaton EO # 0.2 103/ul Normal 0.0-0.7 [facility] Comment on above: Performed By: #### T 7, LIPA, TSH, AMADOU, CMP #### [facility] [address] [place] [address] Dr. Krystle Heaton Eosinophils/100 WBC (Bld) 3.6 % Normal 0.9-7.0 [facility] Comment on above: Performed By: #### T 7, LIPA, TSH, AMADOU, CMP #### [facility] [address] [place] [address] Dr. Krystle Heaton Erythrocyte distribution width (RBC) [Ratio] 16.0 % Critically high 11.0-15.0 [facility] Comment on above: Performed By: #### T 7, LIPA, TSH, AMADOU, CMP #### [facility] [address] [place] [address] Dr. Krystle Heaton Hematocrit (Bld) [Volume fraction] 38.7 % Critically low 42.0-54.0 [facility] Comment on above: Performed By: #### T 7, LIPA, TSH, AMADOU, CMP #### [facility] [address] [place] [address] Dr. Krystle Heaton Hemoglobin (Bld) [Mass/Vol] 11.7 g/dL Critically low 14.0-18.0 [facility] Comment on above: Performed By: #### T 7, LIPA, TSH, AMADOU, CMP #### [facility] [address] [place] [address] Dr. Krystle Heaton IG # 0.01 10e3/ul Normal 0.00-0.03 [facility] Comment on above: Performed By: #### T 7, LIPA, TSH, AMADOU, CMP #### [facility] [address] [place] [address] Dr. Krystle Heaton IG % 0.2 % Normal 0.0-0.5 [facility] Comment on above: Performed By: #### T 7, LIPA, TSH, AMADOU, CMP #### [facility] [address] [place] [address] Dr. Krystle Heaton LYMPH # 1.6 103/ul Normal 1.2-3.8 [facility] Comment on above: Performed By: #### T 7, LIPA, TSH, AMADOU, CMP #### [facility] [address] [place] [address] Dr. Krystle Heaton Lymphocytes/100 WBC (Bld) 29.2 % Normal 20.5-60.0 [facility] Comment on above: Performed By: #### T 7, LIPA, TSH, AMADOU, CMP #### [facility] [address] [place] [address] Dr. Krystle Heaton MANUAL DIFF REQ NO Normal [facility] Comment on above: Performed By: #### T 7, LIPA, TSH, AMADOU, CMP #### [facility] [address] [place] [address] Dr. Krystle Heaton MCH (RBC) [Entitic mass] 27.7 pg Normal 25.9-34.0 [facility] Comment on above: Performed By: #### T 7, LIPA, TSH, AMADOU, CMP #### [facility] [address] [place] [address] Dr. Krystle Heaton MCHC (RBC) [Mass/Vol] 30.2 g/dL Normal 29.9-35.2 [facility] Comment on above: Performed By: #### T 7, LIPA, TSH, AMADOU, CMP #### [facility] [address] [place] [address] Dr. Krystle Heaton MCV (RBC) [Entitic vol] 91.5 fL Normal 80.0-94.0 [facility] Comment on above: Performed By: #### T 7, LIPA, TSH, AMADOU, CMP #### [facility] [address] [place] [address] Dr. Krystle Heaton MONO # 0.6 103/ul Normal 0.3-0.8 [facility] Comment on above: Performed By: #### T 7, LIPA, TSH, AMADOU, CMP #### [facility] [address] [place] [address] Dr. Krystle Heaton Monocytes/100 WBC (Bld) 10.5 % Normal 1.7-12.0 [facility] Comment on above: Performed By: #### T 7, LIPA, TSH, AMADOU, CMP #### [facility] [address] [place] [address] Dr. Krystle Heaton NEUT # 3.1 103/ul Normal 1.4-6.5 [facility] Comment on above: Performed By: #### T 7, LIPA, TSH, AMADOU, CMP #### [facility] [address] [place] [address] Dr. Krystle Heaton Neutrophils/100 WBC (Bld) 55.8 % Normal 43.0-75.0 [facility] Comment on above: Performed By: #### T 7, LIPA, TSH, AMADOU, CMP #### [facility] [address] [place] [address] Dr. Krystle Heaton Platelet mean volume (Bld) [Entitic vol] 10.9 fL Normal 9.5-13.5 [facility] Comment on above: Performed By: #### T 7, LIPA, TSH, AMADOU, CMP #### [facility] [address] [place] [address] Dr. Krystle Heaton PLT 214 103/ul Normal 150-450 [facility] Comment on above: Performed By: #### T 7, LIPA, TSH, AMADOU, CMP #### [facility] [address] [place] [address] Dr. Krystle Heaton RBC 4.23 106/ul Critically low 4.70-6.10 [facility] Comment on above: Performed By: #### T 7, LIPA, TSH, AMADOU, CMP #### [facility] [address] [place] [address] Dr. Krystle Heaton WBC 5.5 103/ul Normal 4.0-11.0 [facility] Comment on above: Performed By: #### T 7, LIPA, TSH, AMADOU, CMP #### [facility] [address] [place] [address] Dr. Krystle Heaton FERRITINon 10-08-2021 Ferritin [Mass/Vol] 59.0 ng/mL Normal 17.9-464.0 [facility] Comment on above: Performed By: #### T 7, LIPA, TSH, AMADOU, CMP #### [facility] [address] [place] [address] Dr. Krystle Heaton CBC AUTO DIFFon 09-10-2021 BASO # 0.0 103/ul Normal 0.0-0.1 [facility] Comment on above: Performed By: #### C BC #### [facility] [address] [place] [address] Billy Quita Basophils/100 WBC (Bld) 0.8 % Normal 0.2-2.0 [facility] Comment on above: Performed By: #### C BC #### [facility] [address] [place] [address] Billy Quita EO # 0.1 103/ul Normal 0.0-0.7 [facility] Comment on above: Performed By: #### C BC #### [facility] [address] [place] [address] Billy Quita Eosinophils/100 WBC (Bld) 3.5 % Normal 0.9-7.0 [facility] Comment on above: Performed By: #### C BC #### [facility] [address] [place] [address] Billy Quita Erythrocyte distribution width (RBC) [Ratio] 16.7 % Critically high 11.0-15.0 [facility] Comment on above: Performed By: #### C BC #### [facility] [address] [place] [address] Billy Quita Hematocrit (Bld) [Volume fraction] 40.6 % Critically low 42.0-54.0 [facility] Comment on above: Performed By: #### C BC #### [facility] [address] [place] [address] Billy Quita Hemoglobin (Bld) [Mass/Vol] 12.4 g/dL Critically low 14.0-18.0 [facility] Comment on above: Performed By: #### C BC #### [facility] [address] [place] [address] Billy Quita IG # 0.01 10e3/ul Normal 0.00-0.03 [facility] Comment on above: Performed By: #### C BC #### [facility] [address] [place] [address] Billy Quita IG % 0.3 % Normal 0.0-0.5 [facility] Comment on above: Performed By: #### C BC #### [facility] [address] [place] [address] Billy Quita LYMPH # 1.5 103/ul Normal 1.2-3.8 [facility] Comment on above: Performed By: #### C BC #### [facility] [address] [place], [place] [id number] Billy Devlin Lymphocytes/100 WBC (Bld) 39.7 % Normal 20.5-60.0 [facility] Comment on above: Performed By: #### C BC #### [facility] [address] [place], [place] [id number] Billy Devlin MANUAL DIFF REQ NO Normal [facility] Comment on above: Performed By: #### C BC #### [facility] [address] [place], [place] [id number] Billy Devlin MCH (RBC) [Entitic mass] 27.6 pg Normal 25.9-34.0 [facility] Comment on above: Performed By: #### C BC #### [facility] [address] [place] [address] Billy Devlin MCHC (RBC) [Mass/Vol] 30.5 g/dL Normal 29.9-35.2 [facility] Comment on above: Performed By: #### C BC #### [facility] [address] [place], [place] [id number] Billy Devlin MCV (RBC) [Entitic vol] 90.2 fL Normal 80.0-94.0 [facility] Comment on above: Performed By: #### C BC #### [facility] [address] [place], [place] [id number] Billycarrillo Deanen MONO # 0.5 103/ul Normal 0.3-0.8 [facility] Comment on above: Performed By: #### C BC #### [facility] [address] [place], [place] [id number] Billy Devlin Monocytes/100 WBC (Bld) 13.3 % Critically high 1.7-12.0 [facility] Comment on above: Performed By: #### C BC #### [facility] [address] [place] [address] Billy Quita NEUT # 1.6 103/ul Normal 1.4-6.5 [facility] Comment on above: Performed By: #### C BC #### [facility] [address] [id number] Billy Devlin Neutrophils/100 WBC (Bld) 42.4 % Critically low 43.0-75.0 [facility] Comment on above: Performed By: #### C BC #### [facility] [address] [id number] Billy Devlin Platelet mean volume (Bld) [Entitic vol] 11.5 fL Normal 9.5-13.5 [facility] Comment on above: Performed By: #### C BC #### [facility] [address] [id number] Billy Deanen PLT 136 103/ul Critically low 150-450 [facility] Comment on above: Performed By: #### C BC #### [facility] [address] [place] [address] Billy Deanen RBC 4.50 106/ul Critically low 4.70-6.10 [facility] Comment on above: Performed By: #### C BC #### [facility] [address] [id number] Billy Devlin WBC 3.7 103/ul Critically low 4.0-11.0 [facility] Comment on above: Performed By: #### C BC #### [facility] [address] [place] [address] Billy Devlin FERRITINon 09-10-2021 Ferritin [Mass/Vol] 106.0 ng/mL Normal 17.9-464.0 [facility] Comment on above: Performed By: #### F ERR #### [facility] [address] [place], [place] [address] Dr. Krystle Heaton CBC AUTO DIFFon 08-15-2021 BASO # 0.0 103/ul Normal 0.0-0.1 [facility] Comment on above: Performed By: #### C BC #### [facility] [address] [address] [address] Krystle Heaton Basophils/100 WBC (Bld) 0.8 % Normal 0.2-2.0 [facility] Comment on above: Performed By: #### C BC #### [facility] [address] [place] [address] Dr. Krystle Heaton EO # 0.2 103/ul Normal 0.0-0.7 [facility] Comment on above: Performed By: #### C BC #### [facility] [address] [place] [address] Dr. Krystle Heaton Eosinophils/100 WBC (Bld) 4.4 % Normal 0.9-7.0 [facility] Comment on above: Performed By: #### C BC #### [facility] [address] [place] [address] Dr. Krystle Heaton Erythrocyte distribution width (RBC) [Ratio] 15.7 % Critically high 11.0-15.0 [facility] Comment on above: Performed By: #### C BC #### [facility] [address] [place] [address] Dr. Krystle Heaton Hematocrit (Bld) [Volume fraction] 39.4 % Critically low 42.0-54.0 [facility] Comment on above: Performed By: #### C BC #### [facility] [address] [place] [address] Dr. Krystle Heaton Hemoglobin (Bld) [Mass/Vol] 12.2 g/dL Critically low 14.0-18.0 [facility] Comment on above: Performed By: #### C BC #### [facility] [address] [place] [address] Dr. Krystle Heaton IG # 0.01 10e3/ul Normal 0.00-0.03 [facility] Comment on above: Performed By: #### C BC #### [facility] [address] [place] [address] Dr. Krystle Heaton IG % 0.2 % Normal 0.0-0.5 [facility] Comment on above: Performed By: #### C BC #### [facility] [address] [place] [address] Dr. Krystle Heaton LYMPH # 1.5 103/ul Normal 1.2-3.8 [facility] Comment on above: Performed By: #### C BC #### [facility] [address] [place] [address] Dr. Krystle Heaton Lymphocytes/100 WBC (Bld) 32.2 % Normal 20.5-60.0 [facility] Comment on above: Performed By: #### C BC #### [facility] [address] [place] [address] Dr. Krystle Heaton MANUAL DIFF REQ NO Normal [facility] Comment on above: Performed By: #### C BC #### [facility] [address] [place] [address] Dr. Krystle Heaton MCH (RBC) [Entitic mass] 27.4 pg Normal 25.9-34.0 [facility] Comment on above: Performed By: #### C BC #### [facility] [address] [place] [address] Dr. Krystle Heaton MCHC (RBC) [Mass/Vol] 31.0 g/dL Normal 29.9-35.2 [facility] Comment on above: Performed By: #### C BC #### [facility] [address] [place] [address] Dr. Krystle Heaton MCV (RBC) [Entitic vol] 88.5 fL Normal 80.0-94.0 [facility] Comment on above: Performed By: #### C BC #### [facility] [address] [place] [address] Dr. Krystle Heaton MONO # 0.6 103/ul Normal 0.3-0.8 [facility] Comment on above: Performed By: #### C BC #### [facility] [address] [place] [address] Dr. Krystle Heaton Monocytes/100 WBC (Bld) 11.7 % Normal 1.7-12.0 [facility] Comment on above: Performed By: #### C BC #### [facility] [address] [place] [address] Dr. Krystle Heaton NEUT # 2.4 103/ul Normal 1.4-6.5 [facility] Comment on above: Performed By: #### C BC #### [facility] [address] [address] [address] Krystle Heaton Neutrophils/100 WBC (Bld) 50.7 % Normal 43.0-75.0 [facility] Comment on above: Performed By: #### C BC #### [facility] [address] [address] [address] Krystle Heaton Platelet mean volume (Bld) [Entitic vol] 11.4 fL Normal 9.5-13.5 [facility] Comment on above: Performed By: #### C BC #### [facility] [address] [address] [address] Krystle Heaton PLT 169 103/ul Normal 150-450 [facility] Comment on above: Performed By: #### C BC #### [facility] [address] [place] [address] Dr. Krystle Heaton RBC 4.45 106/ul Critically low 4.70-6.10 [facility] Comment on above: Performed By: #### C BC #### [facility] [address] [address] [address] Krystle Heaton WBC 4.8 103/ul Normal 4.0-11.0 [facility] Comment on above: Performed By: #### C BC #### [facility] [address] [place] [address] Dr. Krystle Heaton FERRITINon 08-15-2021 Ferritin [Mass/Vol] 103.0 ng/mL Normal 17.9-464.0 [facility] Comment on above: Performed By: #### T 7, LIPA, TSH, AMADOU, CMP #### [facility] [address] [address] [address] Krystle Heaton No Panel Informationon 07-31 Name CHUY CHAPIN Pathologist: COLLETTE DOTSON MD Date of Procedure: 07/31/2021 Date Received: [facility] [address] Work Phone: [phone] Radiologyon 07-31-2021 US Guidance for fine needle aspiration of Liver Normal [facility] [facility] Work Phone: [facility] [...] toto in 2 cassettes A1 and A2. [facility]/07/31/2021 The assays/tests were performed with appropriate positive and negative controls which stained appropriately. [facility] Department of Pathology [address] [place] [address] Normal [facility] Comment on above: Performed By: #### [facility] #### [facility] Surgical Pathology Department [address] [facility] [address] US BIOPSY LIVER PERon 2020 US BIOPSY LIVER PER Patient Name: CHUY CHAPIN STUDY: US BIOPSY LIVER PER; 07/31/2021 1:03 pm PROCEDURE: ULTRASOUND GUIDED NON TARGETED RANDOM BIOPSY OF THE LIVER INDICATION: Hemochromatosis; here for tissue diagnosis COMPARISON: CT-guided liver biopsy 05/08/2021. ACCESSION NUMBER(S): [id number] ORDERING CLINICIAN: ENOCH HERRMANN HONEY LIQUEFIER: Dr. Roland (attending) Dee Lopes MD MEDICATIONS: [...] as stated. This study was interpreted at [facility], [place], [place]. Electronically signed by: SANDY ROLAND MD Normal [facility] CBC AUTO DIFFon 07-28-2021 BASO # 0.0 103/ul Normal 0.0-0.1 [facility] Comment on above: Performed By: #### T 7, LIPA, TSH, AMADOU, CMP #### [facility] [address] [place] [address] Dr. Krystle Heaton Basophils/100 WBC (Bld) 0.6 % Normal 0.2-2.0 [facility] Comment on above: Performed By: #### T 7, LIPA, TSH, AMADOU, CMP #### [facility] [address] [place] [address] Dr. Krystle Heaton EO # 0.2 103/ul Normal 0.0-0.7 [facility] Comment on above: Performed By: #### T 7, LIPA, TSH, AMADOU, CMP #### [facility] [address] [place] [address] Dr. Krystle Heaton Eosinophils/100 WBC (Bld) 3.6 % Normal 0.9-7.0 [facility] Comment on above: Performed By: #### T 7, LIPA, TSH, AMADOU, CMP #### [facility] [address] [place] [address] Dr. Krystle Heaton Erythrocyte distribution width (RBC) [Ratio] 14.7 % Normal 11.0-15.0 [facility] Comment on above: Performed By: #### T 7, LIPA, TSH, AMADOU, CMP #### [facility] [address] [place] [address] Dr. Krystle Heaton Hematocrit (Bld) [Volume fraction] 37.4 % Critically low 42.0-54.0 [facility] Comment on above: Performed By: #### T 7, LIPA, TSH, AMADOU, CMP #### [facility] [address] [place] [address] Dr. Krystle Heaton Hemoglobin (Bld) [Mass/Vol] 11.5 g/dL Critically low 14.0-18.0 [facility] Comment on above: Performed By: #### T 7, LIPA, TSH, AMADOU, CMP #### [facility] [address] [place] [address] Dr. Krystle Heaton IG # 0.02 10e3/ul Normal 0.00-0.03 [facility] Comment on above: Performed By: #### T 7, LIPA, TSH, AMADOU, CMP #### [facility] [address] [place] [address] Dr. Krystle Heaton IG % 0.4 % Normal 0.0-0.5 [facility] Comment on above: Performed By: #### T 7, LIPA, TSH, AMADOU, CMP #### [facility] [address] [place] [address] Dr. Krystle Heaton LYMPH # 1.5 103/ul Normal 1.2-3.8 [facility] Comment on above: Performed By: #### T 7, LIPA, TSH, AMADOU, CMP #### [facility] [address] [place] [address] Dr. Krystle Heaton Lymphocytes/100 WBC (Bld) 31.3 % Normal 20.5-60.0 [facility] Comment on above: Performed By: #### T 7, LIPA, TSH, AMADOU, CMP #### [facility] [address] [place] [address] Dr. Krystle Heaton MANUAL DIFF REQ NO Normal [facility] Comment on above: Performed By: #### T 7, LIPA, TSH, AMADOU, CMP #### [facility] [address] [place] [address] Dr. Krystle Heaton MCH (RBC) [Entitic mass] 27.8 pg Normal 25.9-34.0 [facility] Comment on above: Performed By: #### T 7, LIPA, TSH, AMADOU, CMP #### [facility] [address] [place] [address] Dr. Krystle Heaton MCHC (RBC) [Mass/Vol] 30.7 g/dL Normal 29.9-35.2 [facility] Comment on above: Performed By: #### T 7, LIPA, TSH, AMADUO, CMP #### [facility] [address] [place] [address] Dr. Krystle Heaton MCV (RBC) [Entitic vol] 90.6 fL Normal 80.0-94.0 [facility] Comment on above: Performed By: #### T 7, LIPA, TSH, AMADOU, CMP #### [facility] [address] [place] [address] Dr. Krystle Heaton MONO # 0.6 103/ul Normal 0.3-0.8 [facility] Comment on above: Performed By: #### T 7, LIPA, TSH, AMADOU, CMP #### [facility] [address] [place] [address] Dr. Krystle Heaton Monocytes/100 WBC (Bld) 12.8 % Critically high 1.7-12.0 [facility] Comment on above: Performed By: #### T 7, LIPA, TSH, AMADOU, CMP #### [facility] [address] [place] [address] Dr. Krystle Heaton NEUT # 2.4 103/ul Normal 1.4-6.5 [facility] Comment on above: Performed By: #### T 7, LIPA, TSH, AMADOU, CMP #### [facility] [address] [place] [address] Dr. Krystle Heaton Neutrophils/100 WBC (Bld) 51.3 % Normal 43.0-75.0 [facility] Comment on above: Performed By: #### T 7, LIPA, TSH, AMADOU, CMP #### [facility] [address] [place] [address] Dr. Krystle Heaton Platelet mean volume (Bld) [Entitic vol] 11.4 fL Normal 9.5-13.5 [facility] Comment on above: Performed By: #### T 7, LIPA, TSH, AMADOU, CMP #### [facility] [address] [place] [address] Dr. Krystle Heaton PLT 190 103/ul Normal 150-450 [facility] Comment on above: Performed By: #### T 7, LIPA, TSH, AMADOU, CMP #### [facility] [address] [place] [address] Dr. Krystle Heaton RBC 4.13 106/ul Critically low 4.70-6.10 [facility] Comment on above: Performed By: #### T 7, LIPA, TSH, AMADOU, CMP #### [facility] [address] [place] [address] Dr. Krystle Heaton WBC 4.7 103/ul Normal 4.0-11.0 [facility] Comment on above: Performed By: #### T 7, LIPA, TSH, AMADOU, CMP #### [facility] [address] [place] [address] Dr. Krystle Heaton PROTIMEon 07-28-2021 INR Coag (PPP) [Relative time] 1.00 {INR} Normal [facility] Comment on above: Performed By: #### H BSANS #### [facility] [address] [place] [address] Billy Devlin INR GUIDELINES SEE BELOW Normal [facility] Comment on above: Result Comment: MOUNA RED INR: 2.0 - 3.0 CONDITIONS NOT LISTED BELOW 2.5 - 3.5 FOR PROSTHETIC HEART VALVE REPLACEMENT 2.5 - 3.5 RECURRENT THROMBOSIS Performed By: #### H BSANS #### [facility] [address] [place] [address] Billy Devlin PT Coag (PPP) [Time] 10.8 s Normal 9.0-11.6 [facility] Comment on above: Performed By: #### H BSANS #### [facility] [address] [place] [address] Billy Devlin CBC AUTO DIFFon 07-09-2021 BASO # 0.0 103/ul Normal 0.0-0.1 [facility] Comment on above: Performed By: #### T 7, LIPA, TSH, AMADOU, CMP #### [facility] [address] [place] [address] Dr. Krystle Heaton Basophils/100 WBC (Bld) 0.4 % Normal 0.2-2.0 [facility] Comment on above: Performed By: #### T 7, LIPA, TSH, AMADOU, CMP #### [facility] [address] [place] [address] Dr. Krystle Heaton EO # 0.2 103/ul Normal 0.0-0.7 [facility] Comment on above: Performed By: #### T 7, LIPA, TSH, AMADOU, CMP #### [facility] [address] [place] [address] Dr. Krystle Heaton Eosinophils/100 WBC (Bld) 2.9 % Normal 0.9-7.0 [facility] Comment on above: Performed By: #### T 7, LIPA, TSH, AMADOU, CMP #### [facility] [address] [place] [address] Dr. Krystle Heaton Erythrocyte distribution width (RBC) [Ratio] 13.9 % Normal 11.0-15.0 [facility] Comment on above: Performed By: #### T 7, LIPA, TSH, AMADOU, CMP #### [facility] [address] [place] [address] Dr. Krystle Heaton Hematocrit (Bld) [Volume fraction] 40.4 % Critically low 42.0-54.0 [facility] Comment on above: Performed By: #### T 7, LIPA, TSH, AMADOU, CMP #### [facility] [address] [place] [address] Dr. Krystle Heaton Hemoglobin (Bld) [Mass/Vol] 12.3 g/dL Critically low 14.0-18.0 [facility] Comment on above: Performed By: #### T 7, LIPA, TSH, AMADOU, CMP #### [facility] [address] [place] [address] Dr. Krystle Heaton IG # 0.03 10e3/ul Normal 0.00-0.03 [facility] Comment on above: Performed By: #### T 7, LIPA, TSH, AMADOU, CMP #### [facility] [address] [place] [address] Dr. Krystle Heaton IG % 0.6 % Critically high 0.0-0.5 [facility] Comment on above: Performed By: #### T 7, LIPA, TSH, AMADOU, CMP #### [facility] [address] [place] [address] Dr. Krystle Heaton LYMPH # 1.5 103/ul Normal 1.2-3.8 [facility] Comment on above: Performed By: #### T 7, LIPA, TSH, AMADOU, CMP #### [facility] [address] [place] [address] Dr. Krystle Heaton Lymphocytes/100 WBC (Bld) 28.3 % Normal 20.5-60.0 [facility] Comment on above: Performed By: #### T 7, LIPA, TSH, AMADOU, CMP #### [facility] [address] [place] [address] Dr. Krystle Heaton MANUAL DIFF REQ NO Normal [facility] Comment on above: Performed By: #### T 7, LIPA, TSH, AMADOU, CMP #### [facility] [address] [place] [address] Dr. Krystle Heaton MCH (RBC) [Entitic mass] 28.3 pg Normal 25.9-34.0 [facility] Comment on above: Performed By: #### T 7, LIPA, TSH, AMADOU, CMP #### [facility] [address] [place] [address] Dr. Krystle Heaton MCHC (RBC) [Mass/Vol] 30.4 g/dL Normal 29.9-35.2 [facility] Comment on above: Performed By: #### T 7, LIPA, TSH, AMADOU, CMP #### [facility] [address] [place] [address] Dr. Krystle Heaton MCV (RBC) [Entitic vol] 93.1 fL Normal 80.0-94.0 [facility] Comment on above: Performed By: #### T 7, LIPA, TSH, AMADOU, CMP #### [facility] [address] [place] [address] Dr. Krystle Heaton MONO # 0.7 103/ul Normal 0.3-0.8 [facility] Comment on above: Performed By: #### T 7, LIPA, TSH, AMADOU, CMP #### [facility] [address] [place] [address] Dr. Krystle Heaton Monocytes/100 WBC (Bld) 13.4 % Critically high 1.7-12.0 [facility] Comment on above: Performed By: #### T 7, LIPA, TSH, AMADOU, CMP #### [facility] [address] [address] [address] Krystle Heaton NEUT # 2.8 103/ul Normal 1.4-6.5 [facility] Comment on above: Performed By: #### T 7, LIPA, TSH, AMADOU, CMP #### [facility] [address] [place] [address] Dr. Krystle Heaton Neutrophils/100 WBC (Bld) 54.4 % Normal 43.0-75.0 [facility] Comment on above: Performed By: #### T 7, LIPA, TSH, AMADOU, CMP #### [facility] [address] [place] [address] Dr. Krystle Heaton Platelet mean volume (Bld) [Entitic vol] 11.7 fL Normal 9.5-13.5 [facility] Comment on above: Performed By: #### T 7, LIPA, TSH, AMADOU, CMP #### [facility] [address] [place] [address] Dr. Krystle Heaton PLT 192 103/ul Normal 150-450 [facility] Comment on above: Performed By: #### T 7, LIPA, TSH, AMADOU, CMP #### [facility] [address] [place] [address] Dr. Krystle Heaton RBC 4.34 106/ul Critically low 4.70-6.10 [facility] Comment on above: Performed By: #### T 7, LIPA, TSH, AMADOU, CMP #### [facility] [address] [place] [address] Dr. Krystle Heaton WBC 5.2 103/ul Normal 4.0-11.0 [facility] Comment on above: Performed By: #### T 7, LIPA, TSH, AMADOU, CMP #### [facility] [address] [place] [address] Dr. Krystle Heaton FERRITINon 07-09-2021 Ferritin [Mass/Vol] 122.0 ng/mL Normal 17.9-464.0 [facility] Comment on above: Performed By: #### T 7, LIPA, TSH, AMADOU, CMP #### [facility] [address] [place] [address] Dr. Krystle Heaton CBC AUTO DIFFon 06-11-2021 BASO # 0.0 103/ul Normal 0.0-0.1 [facility] Comment on above: Performed By: #### T 7, LIPA, TSH, AMADOU, CMP #### [facility] [address] [place] [address] Dr. Krystle Heaton Basophils/100 WBC (Bld) 0.7 % Normal 0.2-2.0 [facility] Comment on above: Performed By: #### T 7, LIPA, TSH, AMADOU, CMP #### [facility] [address] [place] [address] Dr. Krystle Heaton EO # 0.2 103/ul Normal 0.0-0.7 [facility] Comment on above: Performed By: #### T 7, LIPA, TSH, AMADOU, CMP #### [facility] [address] [place] [address] Dr. Krystle Heaton Eosinophils/100 WBC (Bld) 3.9 % Normal 0.9-7.0 [facility] Comment on above: Performed By: #### T 7, LIPA, TSH, AMADOU, CMP #### [facility] [address] [place] [address] Dr. Krystle Heaton Erythrocyte distribution width (RBC) [Ratio] 13.0 % Normal 11.0-15.0 [facility] Comment on above: Performed By: #### T 7, LIPA, TSH, AMADOU, CMP #### [facility] [address] [place] [address] Dr. Krystle Heaton Hematocrit (Bld) [Volume fraction] 39.0 % Critically low 42.0-54.0 [facility] Comment on above: Performed By: #### T 7, LIPA, TSH, AMADOU, CMP #### [facility] [address] [place] [address] Dr. Krystle Heaton Hemoglobin (Bld) [Mass/Vol] 12.4 g/dL Critically low 14.0-18.0 [facility] Comment on above: Performed By: #### T 7, LIPA, TSH, AMADOU, CMP #### [facility] [address] [place] [address] Dr. Krystle Heaton IG # 0.01 10e3/ul Normal 0.00-0.03 [facility] Comment on above: Performed By: #### T 7, LIPA, TSH, AMADOU, CMP #### [facility] [address] [place] [address] Dr. Krystle Heaton IG % 0.2 % Normal 0.0-0.5 [facility] Comment on above: Performed By: #### T 7, LIPA, TSH, AMADOU, CMP #### [facility] [address] [place] [address] Dr. Krystle Heaton LYMPH # 1.0 103/ul Critically low 1.2-3.8 [facility] Comment on above: Performed By: #### T 7, LIPA, TSH, AMADOU, CMP #### [facility] [address] [place] [address] Dr. Krystle Heaton Lymphocytes/100 WBC (Bld) 23.1 % Normal 20.5-60.0 [facility] Comment on above: Performed By: #### T 7, LIPA, TSH, AMADOU, CMP #### [facility] [address] [place] [address] Dr. Krystle Heaton MANUAL DIFF REQ NO Normal [facility] Comment on above: Performed By: #### T 7, LIPA, TSH, AMADOU, CMP #### [facility] [address] [place] [address] Dr. Krystle Heaton MCH (RBC) [Entitic mass] 31.2 pg Normal 25.9-34.0 [facility] Comment on above: Performed By: #### T 7, LIPA, TSH, AMADOU, CMP #### [facility] [address] [place] [address] Dr. Krystle Heaton MCHC (RBC) [Mass/Vol] 31.8 g/dL Normal 29.9-35.2 [facility] Comment on above: Performed By: #### T 7, LIPA, TSH, AMADOU, CMP #### [facility] [address] [place] [address] Dr. Krystle Heaton MCV (RBC) [Entitic vol] 98.2 fL Critically high 80.0-94.0 [facility] Comment on above: Performed By: #### T 7, LIPA, TSH, AMADOU, CMP #### [facility] [address] [place] [address] Dr. Krystle Heaton MONO # 0.5 103/ul Normal 0.3-0.8 [facility] Comment on above: Performed By: #### T 7, LIPA, TSH, AMADOU, CMP #### [facility] [address] [place] [address] Dr. Krystle Heaton Monocytes/100 WBC (Bld) 10.4 % Normal 1.7-12.0 [facility] Comment on above: Performed By: #### T 7, LIPA, TSH, AMADOU, CMP #### [facility] [address] [place] [address] Dr. Krystle Heaton NEUT # 2.7 103/ul Normal 1.4-6.5 [facility] Comment on above: Performed By: #### T 7, LIPA, TSH, AMADOU, CMP #### [facility] [address] [place] [address] Dr. Krystle Heaton Neutrophils/100 WBC (Bld) 61.7 % Normal 43.0-75.0 [facility] Comment on above: Performed By: #### T 7, LIPA, TSH, AMADOU, CMP #### [facility] [address] [place] [address] Dr. Krystle Heaton Platelet mean volume (Bld) [Entitic vol] 10.8 fL Normal 9.5-13.5 [facility] Comment on above: Performed By: #### T 7, LIPA, TSH, AMADOU, CMP #### [facility] [address] [place] [address] Dr. Krystle Heaton PLT 197 103/ul Normal 150-450 [facility] Comment on above: Performed By: #### T 7, LIPA, TSH, AMADOU, CMP #### [facility] [address] [place] [address] Dr. Krystle Heaton RBC 3.97 106/ul Critically low 4.70-6.10 [facility] Comment on above: Performed By: #### T 7, LIPA, TSH, AMADOU, CMP #### [facility] [address] [place] [address] Dr. Krystle Heaton WBC 4.3 103/ul Normal 4.0-11.0 [facility] Comment on above: Performed By: #### T 7, LIPA, TSH, AMADOU, CMP #### [facility] [address] [place] [address] Dr. Krystle Heaton FERRITINon 06-11-2021 Ferritin [Mass/Vol] 107.0 ng/mL Normal 17.9-464.0 [facility] Comment on above: Performed By: #### T 7, LIPA, TSH, AMADOU, CMP #### [facility] [address] [place] [address] Dr. Krystle Heaton CBC AUTO DIFFon 05-28-2021 BASO # 0.0 103/ul Normal 0.0-0.1 [facility] Comment on above: Performed By: #### T 7, LIPA, TSH, AMADOU, CMP #### [facility] [address] [place] [address] Dr. Krystle Heaton Basophils/100 WBC (Bld) 0.5 % Normal 0.2-2.0 [facility] Comment on above: Performed By: #### T 7, LIPA, TSH, AMADOU, CMP #### [facility] [address] [place] [address] Dr. Krystle Heaton EO # 0.1 103/ul Normal 0.0-0.7 [facility] Comment on above: Performed By: #### T 7, LIPA, TSH, AMADOU, CMP #### [facility] [address] [place] [address] Dr. Krystle Heaton Eosinophils/100 WBC (Bld) 3.5 % Normal 0.9-7.0 [facility] Comment on above: Performed By: #### T 7, LIPA, TSH, AMADOU, CMP #### [facility] [address] [place] [address] Dr. Krystle Heaton Erythrocyte distribution width (RBC) [Ratio] 12.6 % Normal 11.0-15.0 [facility] Comment on above: Performed By: #### T 7, LIPA, TSH, AMADOU, CMP #### [facility] [address] [place] [address] Dr. Krystle Heaton Hematocrit (Bld) [Volume fraction] 39.8 % Critically low 42.0-54.0 [facility] Comment on above: Performed By: #### T 7, LIPA, TSH, AMADOU, CMP #### [facility] [address] [place] [address] Dr. Krystle Heaton Hemoglobin (Bld) [Mass/Vol] 12.5 g/dL Critically low 14.0-18.0 [facility] Comment on above: Performed By: #### T 7, LIPA, TSH, AMADOU, CMP #### [facility] [address] [place] [address] Dr. Krystle Heaton IG # 0.00 10e3/ul Normal 0.00-0.03 [facility] Comment on above: Performed By: #### T 7, LIPA, TSH, AMADOU, CMP #### [facility] [address] [place] [address] Dr. Krystle Heaton IG % 0.0 % Normal 0.0-0.5 [facility] Comment on above: Performed By: #### T 7, LIPA, TSH, AMADOU, CMP #### [facility] [address] [place] [address] Dr. Krystle Heaton LYMPH # 1.2 103/ul Normal 1.2-3.8 [facility] Comment on above: Performed By: #### T 7, LIPA, TSH, AMADOU, CMP #### [facility] [address] [place] [address] Dr. Krystle Heaton Lymphocytes/100 WBC (Bld) 32.7 % Normal 20.5-60.0 [facility] Comment on above: Performed By: #### T 7, LIPA, TSH, AMADOU, CMP #### [facility] [address] [place] [address] Dr. Krystle Heaton MANUAL DIFF REQ NO Normal [facility] Comment on above: Performed By: #### T 7, LIPA, TSH, AMADOU, CMP #### [facility] [address] [place] [address] Dr. Krystle Heaton MCH (RBC) [Entitic mass] 32.1 pg Normal 25.9-34.0 [facility] Comment on above: Performed By: #### T 7, LIPA, TSH, AMADOU, CMP #### [facility] [address] [place] [address] Dr. Krystle Heaton MCHC (RBC) [Mass/Vol] 31.4 g/dL Normal 29.9-35.2 [facility] Comment on above: Performed By: #### T 7, LIPA, TSH, AMADOU, CMP #### [facility] [address] [place] [address] Dr. Krystle Heaton MCV (RBC) [Entitic vol] 102.3 fL Critically high 80.0-94.0 [facility] Comment on above: Performed By: #### T 7, LIPA, TSH, AMADOU, CMP #### [facility] [address] [place] [address] Dr. Krystle Heaton MONO # 0.4 103/ul Normal 0.3-0.8 [facility] Comment on above: Performed By: #### T 7, LIPA, TSH, AMADOU, CMP #### [facility] [address] [place] [address] Dr. Krystle Heaton Monocytes/100 WBC (Bld) 10.5 % Normal 1.7-12.0 [facility] Comment on above: Performed By: #### T 7, LIPA, TSH, AMADOU, CMP #### [facility] [address] [place] [address] Dr. Krystle Heaton NEUT # 2.0 103/ul Normal 1.4-6.5 [facility] Comment on above: Performed By: #### T 7, LIPA, TSH, AMADOU, CMP #### [facility] [address] [place] [address] Dr. Krystle Heaton Neutrophils/100 WBC (Bld) 52.8 % Normal 43.0-75.0 [facility] Comment on above: Performed By: #### T 7, LIPA, TSH, AMADOU, CMP #### [facility] [address] [place] [address] Dr. Krystle Heaton Platelet mean volume (Bld) [Entitic vol] 10.7 fL Normal 9.5-13.5 [facility] Comment on above: Performed By: #### T 7, LIPA, TSH, AMADOU, CMP #### [facility] [address] [place] [address] Dr. Krystle Heaton PLT 227 103/ul Normal 150-450 [facility] Comment on above: Performed By: #### T 7, LIPA, TSH, AMADOU, CMP #### [facility] [address] [place] [address] Dr. Krystle Heaton RBC 3.89 106/ul Critically low 4.70-6.10 [facility] Comment on above: Performed By: #### T 7, LIPA, TSH, AMADOU, CMP #### [facility] [address] [place] [address] Dr. Krystle Heaton WBC 3.7 103/ul Critically low 4.0-11.0 [facility] Comment on above: Performed By: #### T 7, LIPA, TSH, AMADOU, CMP #### [facility] [address] [place] [address] Dr. Krystle Heaton FERRITINon 05-28-2021 Ferritin [Mass/Vol] 169.0 ng/mL Normal 17.9-464.0 [facility] Comment on above: Performed By: #### F ERR #### [facility] [address] [place] [address] Dr. Krystle Heaton METHYLMALONIC ACID (MMA)on 0 05-18-2021 Disclaimer: Comment Normal [facility] Comment on above: Result Comment: This test was developed and its performance characteristics determined by [employer]. It has not been cleared or approved by the Food and Drug Administration. Performed By: #### T 7, LIPA, TSH, AMADOU, CMP #### [facility] [address] [place] [address] Dr. Krystle Heaton Methylmalonic Acid, Serum 124 nmol/L Normal 0-378 [facility] Comment on above: Performed By: #### T 7, LIPA, TSH, AMADOU, CMP #### [facility] [address] [place] [address] Dr. Krystle Heaton HOMOCYSTEINEon 05-16-2021 Homocyst(e)ine, Plasma 19.5 umol/L Critically high 0.0-14.5 [facility] Comment on above: Performed By: #### T 7, LIPA, TSH, AMADOU, CMP #### [facility] [address] [place] [address] Dr. Krystle Heaton CBC AUTO DIFFon 05-15-2021 BASO # 0.0 103/ul Normal 0.0-0.1 [facility] Comment on above: Performed By: #### T 7, LIPA, TSH, AMADOU, CMP #### [facility] [address] [place] [address] Dr. Krystle Heaton Basophils/100 WBC (Bld) 0.5 % Normal 0.2-2.0 [facility] Comment on above: Performed By: #### T 7, LIPA, TSH, AMADOU, CMP #### [facility] [address] [place] [address] Dr. Krystle Heaton EO # 0.1 103/ul Normal 0.0-0.7 [facility] Comment on above: Performed By: #### T 7, LIPA, TSH, AMADOU, CMP #### [facility] [address] [place] [address] Dr. Krystle Heaton Eosinophils/100 WBC (Bld) 1.8 % Normal 0.9-7.0 [facility] Comment on above: Performed By: #### T 7, LIPA, TSH, AMADOU, CMP #### [facility] [address] [place] [address] Dr. Krystle Heaton Erythrocyte distribution width (RBC) [Ratio] 12.7 % Normal 11.0-15.0 [facility] Comment on above: Performed By: #### T 7, LIPA, TSH, AMADOU, CMP #### [facility] [address] [place] [address] Dr. Krystle Heaton Hematocrit (Bld) [Volume fraction] 39.4 % Critically low 42.0-54.0 [facility] Comment on above: Performed By: #### T 7, LIPA, TSH, AMADOU, CMP #### [facility] [address] [place] [address] Dr. Krystle Heaton Hemoglobin (Bld) [Mass/Vol] 12.9 g/dL Critically low 14.0-18.0 [facility] Comment on above: Performed By: #### T 7, LIPA, TSH, AMADOU, CMP #### [facility] [address] [place] [address] Dr. Krystle Heaton IG # 0.02 10e3/ul Normal 0.00-0.03 [facility] Comment on above: Performed By: #### T 7, LIPA, TSH, AMADOU, CMP #### [facility] [address] [place] [address] Dr. Krystle Heaton IG % 0.4 % Normal 0.0-0.5 [facility] Comment on above: Performed By: #### T 7, LIPA, TSH, AMADOU, CMP #### [facility] [address] [place] [address] Dr. Krystle Heaton LYMPH # 1.4 103/ul Normal 1.2-3.8 [facility] Comment on above: Performed By: #### T 7, LIPA, TSH, AMADOU, CMP #### [facility] [address] [place] [address] Dr. Krystle Heaton Lymphocytes/100 WBC (Bld) 24.9 % Normal 20.5-60.0 [facility] Comment on above: Performed By: #### T 7, LIPA, TSH, AMADOU, CMP #### [facility] [address] [place] [address] Dr. Krystle Heaton MANUAL DIFF REQ NO Normal [facility] Comment on above: Performed By: #### T 7, LIPA, TSH, AMADOU, CMP #### [facility] [address] [place] [address] Dr. Krystle Heaton MCH (RBC) [Entitic mass] 34.0 pg Normal 25.9-34.0 [facility] Comment on above: Performed By: #### T 7, LIPA, TSH, AMADOU, CMP #### [facility] [address] [place] [address] Dr. Krystle Heaton MCHC (RBC) [Mass/Vol] 32.7 g/dL Normal 29.9-35.2 [facility] Comment on above: Performed By: #### T 7, LIPA, TSH, AMADOU, CMP #### [facility] [address] [place] [address] Dr. Krystle Heaton MCV (RBC) [Entitic vol] 104.0 fL Critically high 80.0-94.0 [facility] Comment on above: Performed By: #### T 7, LIPA, TSH, AMADOU, CMP #### [facility] [address] [place] [address] Dr. Krystle Heaton MONO # 0.7 103/ul Normal 0.3-0.8 [facility] Comment on above: Performed By: #### T 7, LIPA, TSH, AMADOU, CMP #### [facility] [address] [place] [address] Dr. Krystle Heaton Monocytes/100 WBC (Bld) 11.8 % Normal 1.7-12.0 [facility] Comment on above: Performed By: #### T 7, LIPA, TSH, AMADOU, CMP #### [facility] [address] [place] [address] Dr. Krystle Heaton NEUT # 3.3 103/ul Normal 1.4-6.5 [facility] Comment on above: Performed By: #### T 7, LIPA, TSH, AMADOU, CMP #### [facility] [address] [place] [address] Dr. Krystle Heaton Neutrophils/100 WBC (Bld) 60.6 % Normal 43.0-75.0 [facility] Comment on above: Performed By: #### T 7, LIPA, TSH, AMADOU, CMP #### [facility] [address] [place] [address] Dr. Krystle Heaton Platelet mean volume (Bld) [Entitic vol] 10.2 fL Normal 9.5-13.5 [facility] Comment on above: Performed By: #### T 7, LIPA, TSH, AMADOU, CMP #### [facility] [address] [place] [address] Dr. Krystle Heaton PLT 196 103/ul Normal 150-450 [facility] Comment on above: Performed By: #### T 7, LIPA, TSH, AMADOU, CMP #### [facility] [address] [place] [address] Dr. Krystle Heaton RBC 3.79 106/ul Critically low 4.70-6.10 [facility] Comment on above: Performed By: #### T 7, LIPA, TSH, AMADOU, CMP #### [facility] [address] [place] [address] Dr. Krystle Heaton WBC 5.5 103/ul Normal 4.0-11.0 [facility] Comment on above: Performed By: #### T 7, LIPA, TSH, AMADOU, CMP #### [facility] [address] [place] [address] Dr. Krystle Heaton FERRITINon 05-15-2021 Ferritin [Mass/Vol] 302.0 ng/mL Normal 17.9-464.0 [facility] Comment on above: Performed By: #### C BC #### [facility] [address] [place] [address] Billy Devlin PROF 14(COMP METB)on 021 Albumin [Mass/Vol] 3.5 g/dL Normal 3.5-5.0 [facility] Comment on above: Performed By: #### C BC #### [facility] [address] [place] [address] Billy Devlin Albumin/Globulin [Mass ratio] 1.0 {ratio} Normal [facility] Comment on above: Performed By: #### C BC #### [facility] [address] [place], [place] [address] Billy Quita ALP [Catalytic activity/Vol] 71 U/L Normal 38-126 [facility] Comment on above: Performed By: #### C BC #### [facility] [address] [place], [place] [address] Billy Quita ALT [Catalytic activity/Vol] 40 U/L Normal 21-72 [facility] Comment on above: Performed By: #### C BC #### [facility] [address] [place] [id number] Billy Quita Anion gap [Moles/Vol] 17.5 mmol/L Normal [facility] Comment on above: Performed By: #### C BC #### [facility] [address] [place], [place] [id number] Billy Quita AST [Catalytic activity/Vol] 43 U/L Normal 17-59 [facility] Comment on above: Performed By: #### C BC #### [facility] [address] [place], [place] [id number] Billy Quita Bilirubin [Mass/Vol] 0.3 mg/dL Normal 0.2-1.3 [facility] Comment on above: Performed By: #### C BC #### [facility] [address] [place], [place] [id number] Billy Quita Calcium [Mass/Vol] 8.8 mg/dL Normal 8.4-10.2 [facility] Comment on above: Performed By: #### C BC #### [facility] [address] [place] [address] Billy Quita Chloride [Moles/Vol] 101 mmol/L Normal 98-107 [facility] Comment on above: Performed By: #### C BC #### [facility] [address] [place] [address] Billy Quita CO2 [Moles/Vol] 26.6 mmol/L Normal 22.0-30.0 [facility] Comment on above: Performed By: #### C BC #### [facility] [address] [place] [address] Billy Quita Creatinine [Mass/Vol] 0.88 mg/dL Normal 0.66-1.25 [facility] Comment on above: Performed By: #### C BC #### [facility] [address] [place], [place] [address] Billy Quita EGFR-AF CHINESE >60 Normal >=60 [facility] Comment on above: Performed By: #### C BC #### [facility] [address] [place] [id number] Billy Quita EGFR-NON AF CHINESE >60 Normal >=60 [facility] Comment on above: Performed By: #### C BC #### [facility] [address] [place] [address] Billy Quita Globulin (S) [Mass/Vol] 3.6 g/dL Normal [facility] Comment on above: Performed By: #### C BC #### [facility] [address] [place] [address] Billy Quita Glucose [Mass/Vol] 101 mg/dL Normal 74-106 [facility] Comment on above: Performed By: #### C BC #### [facility] [address] [place], [place] [phone] Billy Quita Potassium [Moles/Vol] 4.1 mmol/L Normal 3.4-5.0 [facility] Comment on above: Performed By: #### C BC #### [facility] [address] [place] [address] Billy Quita Protein [Mass/Vol] 7.1 g/dL Normal 6.1-8.2 [facility] Comment on above: Performed By: #### C BC #### [facility] [address] [place] [address] Billy Quita Sodium [Moles/Vol] 141 mmol/L Normal 137-145 [facility] Comment on above: Performed By: #### C BC #### [facility] [address] [place], [place] [phone] Billy Quita Urea nitrogen [Mass/Vol] 11.0 mg/dL Normal 9.0-20.0 [facility] Comment on above: Performed By: #### C BC #### [facility] [address] [place], [place] [address] Billy Devlin Urea nitrogen/Creatinine [Mass ratio] 12.5 mg/mg Normal [facility] Comment on above: Performed By: #### C BC #### [facility] [address] [place], [place] [address] Billy Devlin IN BIOPSY LIVER PERCUTANEOUS NEEDLEon 05-08-2021 IN BIOPSY LIVER PERCUTANEOUS NEEDLE Patient Name: CHUY CHAPIN STUDY: IN BIOPSY LIVER PERCUTANEOUS NEEDLE; ; 05/08/2021 11:46 am INDICATION: None. COMPARISON: None. ACCESSION NUMBER(S): [id number] ORDERING CLINICIAN: ENOCH HERRMANN TECHNIQUE: CONSENT: The [...] and cap. Additionally, the performing physician and insurance assistant used maximum barrier technique to include [...] were made using an 18 gauge spring-loaded Amvona Pince core biopsy needle. Good core samples were [...] above Electronically signed by: URI BACON MD [facility] Order Reconciliationon 05-08 Order Reconciliation Page [...] Home Medications at time of Discharge Reconciliation: 29-Anuj-2021 11:59 carvedilol 6.25 mg oral tablet 1 [...] MD Location: [facility] Copy To/Referring/Attending: URI BACON MD Other External [...] positive and negative controls which stained appropriately. [facility] Department of Pathology [address] [place] [address] Normal [facility] Comment on above: Performed By: #### [facility] #### [facility] Surgical Pathology Department [address] [place] [address] CBC AUTO DIFFon 05-04-2021 BASO # 0.0 103/ul Normal 0.0-0.1 [facility] Comment on above: Performed By: #### F ERR #### [facility] [address] [place] [address] Dr. Krystle Heaton Basophils/100 WBC (Bld) 0.5 % Normal 0.2-2.0 [facility] Comment on above: Performed By: #### F ERR #### [facility] [address] [place] [address] Dr. Krystle Heaton EO # 0.1 103/ul Normal 0.0-0.7 [facility] Comment on above: Performed By: #### F ERR #### [facility] [address] [place] [address] Dr. Krystle Heaton Eosinophils/100 WBC (Bld) 2.5 % Normal 0.9-7.0 [facility] Comment on above: Performed By: #### F ERR #### [facility] [address] [place] [address] Dr. Krystle Heaton Erythrocyte distribution width (RBC) [Ratio] 12.5 % Normal 11.0-15.0 [facility] Comment on above: Performed By: #### F ERR #### [facility] [address] [place] [address] Dr. Krystle Heaton Hematocrit (Bld) [Volume fraction] 34.3 % Critically low 42.0-54.0 [facility] Comment on above: Performed By: #### F ERR #### [facility] [address] [place] [address] Dr. Krystle Heaton Hemoglobin (Bld) [Mass/Vol] 11.2 g/dL Critically low 14.0-18.0 [facility] Comment on above: Performed By: #### F ERR #### [facility] [address] [place] [address] Dr. Krystle Heaton IG # 0.01 10e3/ul Normal 0.00-0.03 [facility] Comment on above: Performed By: #### F ERR #### [facility] [address] [place] [address] Dr. Krystle Heaton IG % 0.3 % Normal 0.0-0.5 [facility] Comment on above: Performed By: #### F ERR #### [facility] [address] [place] [address] Dr. Krystle Heaton LYMPH # 1.3 103/ul Normal 1.2-3.8 [facility] Comment on above: Performed By: #### F ERR #### [facility] [address] [place] [address] Dr. Krystle Heaton Lymphocytes/100 WBC (Bld) 33.3 % Normal 20.5-60.0 [facility] Comment on above: Performed By: #### F ERR #### [facility] [address] [place] [address] Dr. Krystle Heaton MANUAL DIFF REQ NO Normal [facility] Comment on above: Performed By: #### F ERR #### [facility] [address] [place] [address] Dr. Krystle Heaton MCH (RBC) [Entitic mass] 35.6 pg Critically high 25.9-34.0 [facility] Comment on above: Performed By: #### F ERR #### [facility] [address] [place] [address] Dr. Krystle Heaton MCHC (RBC) [Mass/Vol] 32.7 g/dL Normal 29.9-35.2 [facility] Comment on above: Performed By: #### F ERR #### [facility] [address] [place] [address] Dr. Krystle Heaton MCV (RBC) [Entitic vol] 108.9 fL Critically high 80.0-94.0 [facility] Comment on above: Performed By: #### F ERR #### [facility] [address] [place] [address] Dr. Krystle Heaton MONO # 0.4 103/ul Normal 0.3-0.8 [facility] Comment on above: Performed By: #### F ERR #### [facility] [address] [place] [address] Dr. Krystle Heaton Monocytes/100 WBC (Bld) 10.0 % Normal 1.7-12.0 [facility] Comment on above: Performed By: #### F ERR #### [facility] [address] [place] [address] Dr. Krystle Heaton NEUT # 2.1 103/ul Normal 1.4-6.5 [facility] Comment on above: Performed By: #### F ERR #### [facility] [address] [place] [address] Dr. Krystle Heaton Neutrophils/100 WBC (Bld) 53.4 % Normal 43.0-75.0 [facility] Comment on above: Performed By: #### F ERR #### [facility] [address] [place] [address] Dr. Krystle Heaton Platelet mean volume (Bld) [Entitic vol] 10.7 fL Normal 9.5-13.5 [facility] Comment on above: Performed By: #### F ERR #### [facility] [address] [place] [address] Dr. Krystle Heaton PLT 174 103/ul Normal 150-450 [facility] Comment on above: Performed By: #### F ERR #### [facility] [address] [place] [address] Dr. Krystle Heaton RBC 3.15 106/ul Critically low 4.70-6.10 [facility] Comment on above: Result Comment: SLID E REVIEWED. 2+ MACROCYTOSIS SEEN Performed By: #### F ERR #### [facility] [address] [place] [address] Dr. Krystle Heaton WBC 4.0 103/ul Normal 4.0-11.0 [facility] Comment on above: Performed By: #### F ERR #### [facility] [address] [place] [address] Dr. Krystle Heaton FERRITINon 05-04-2021 Ferritin [Mass/Vol] 417.0 ng/mL Normal 17.9-464.0 [facility] Comment on above: Performed By: #### T 7, LIPA, TSH, AMADOU, CMP #### [facility] [address] [place] [address] Dr. Krystle Heaton AFP (TUMOR MARKER)on 021 AFP, Serum, Tumor Marker 5.2 ng/mL Normal 0.0-8.3 [facility] Comment on above: Result Comment: [facility] Fullscreen Electrochemiluminescence Immunoassay (ECLIA) . Values obtained with different assay methods or kits cannot be used interchangeably. Results cannot be interpreted as absolute evidence of the presence or absence of malignant disease. . This test is not interpretable in females. Performed By: #### T 7, LIPA, TSH, AMADOU, CMP #### [facility] [address] [place] [address] Dr. Krystle Heaton [id number] 2020 [id number] , Serum 132 mg/dL Normal 101-187 [facility] Comment on above: Performed By: #### H BSANS #### [facility] [address] [place] [address] Billy Devlin NE by IFAon 05-02-2021 Antinuclear Antibodies, IFA Negative Normal [facility] Comment on above: Result Comment: Nega tive <1:80 Borderline 1:80 Positive >1:80 Performed By: #### A NAIFA #### [facility] [address] [place] [address] Billy Devlin CERULOPLASMINon 05-02-2021 Ceruloplasmin 27.8 mg/dL Normal 16.0-31.0 [facility] Comment on above: Performed By: #### C BC #### [facility] [address] [place] [address] Billy Devlin HEP A AB TOTALon 05-02-2021 Hep A Ab, Total Negative Normal Negative [facility] Comment on above: Performed By: #### H BSANS #### [facility] [address] [place], [place] [address] Billy Devlin HEP B COREon 05-02-2021 Hep B Core Ab, Tot Negative Normal Negative [facility] Comment on above: Performed By: #### T 7, LIPA, TSH, AMADOU, CMP #### [facility] [address] [place] [address] Dr. Krystle Heaton HEP B SURFACE ANTIGEN SCREEN on 05-02-2021 HBsAg Screen Negative Normal Negative [facility] Comment on above: Performed By: #### H BSANS #### [facility] [address] [place] [address] Billy Devlin HEPATITIS B SURFACE ANTIBODY , QUANTon 05-02-2021 Hepatitis B Surf AB Quant <3.1 Critically low Immunity>9. 9 [facility] Comment on above: Result Comment: Stat us of Immunity Anti-HBs Level Inconsistent with Immunity 0.0 - 9.9 Consistent with Immunity >9.9 Performed By: #### H BSANS #### [facility] [address] [place] [address] Billy Devlin HEPATITIS C ANTIBODYon 05-02 Hep C Virus Ab <0.1 Normal 0.0-0.9 [facility] Comment on above: Result Comment: Nega tive: < 0.8 Indeterminate: 0.8 - 0.9 Positive: > 0.9 . The CDC recommends that a positive HCV antibody result be followed up with a HCV Nucleic Acid Amplification test (298520). Performed By: #### T 7, LIPA, TSH, AMADOU, CMP #### [facility] [address] [place] [address] Dr. Krystle Heaton MITICHONDRIAL (M2) ANTIBODYo n 05-02-2021 Mitochondrial (M2) Antibody <20.0 Normal 0.0-20.0 [facility] Comment on above: Result Comment: Nega tive 0.0 - 20.0 Equivocal 20.1 - 24.9 Positive >24.9 . Mitochondrial (M2) Antibodies are found in 90-96% of patients with primary biliary cirrhosis. Performed By: #### F ERR #### [facility] [address] [place] [address] Dr. Krystle Heaton CBC AUTO DIFFon 05-01-2021 BASO # 0.1 103/ul Normal 0.0-0.1 [facility] Comment on above: Performed By: #### C BC #### [facility] [address] [place] [id number] Billy Quita Basophils/100 WBC (Bld) 1.5 % Normal 0.2-2.0 [facility] Comment on above: Performed By: #### C BC #### [facility] [address] [place] [phone] Billy Quita EO # 0.1 103/ul Normal 0.0-0.7 [facility] Comment on above: Performed By: #### C BC #### [facility] [address] [place] [phone] Billy Quita Eosinophils/100 WBC (Bld) 2.1 % Normal 0.9-7.0 [facility] Comment on above: Performed By: #### C BC #### [facility] [address] [place] [address] Billy Quita Erythrocyte distribution width (RBC) [Ratio] 12.7 % Normal 11.0-15.0 [facility] Comment on above: Performed By: #### C BC #### [facility] [address] [place], [place] [address] Billy Quita Hematocrit (Bld) [Volume fraction] 34.6 % Critically low 42.0-54.0 [facility] Comment on above: Performed By: #### C BC #### [facility] [address] [place], [place] [address] Iblly Quita Hemoglobin (Bld) [Mass/Vol] 11.2 g/dL Critically low 14.0-18.0 [facility] Comment on above: Performed By: #### C BC #### [facility] [address] [place] [phone] Billy Quita IG # 0.01 10e3/ul Normal 0.00-0.03 [facility] Comment on above: Performed By: #### C BC #### [facility] [address] [place] [phone] Billy Quita IG % 0.3 % Normal 0.0-0.5 [facility] Comment on above: Performed By: #### C BC #### [facility] [address] [place] [id number] Billy Quita LYMPH # 1.0 103/ul Critically low 1.2-3.8 [facility] Comment on above: Performed By: #### C BC #### [facility] [address] [place] [id number] Billy Quita Lymphocytes/100 WBC (Bld) 30.4 % Normal 20.5-60.0 [facility] Comment on above: Performed By: #### C BC #### [facility] [address] [place], [place] [address] Billy Quita MANUAL DIFF REQ NO Normal [facility] Comment on above: Performed By: #### C BC #### [facility] [address] [place], [place] [address] Billy Quita MCH (RBC) [Entitic mass] 35.8 pg Critically high 25.9-34.0 [facility] Comment on above: Performed By: #### C BC #### [facility] [address] [place], [place] [address] Billycarrillo Deanen MCHC (RBC) [Mass/Vol] 32.4 g/dL Normal 29.9-35.2 [facility] Comment on above: Performed By: #### C BC #### [facility] [address] [place], [place] [address] Billy Quita MCV (RBC) [Entitic vol] 110.5 fL Critically high 80.0-94.0 [facility] Comment on above: Performed By: #### C BC #### [facility] [address] [place], [place] [address] Billy Quita MONO # 0.4 103/ul Normal 0.3-0.8 [facility] Comment on above: Performed By: #### C BC #### [facility] [address] [place], [place] [address] Billy Quita Monocytes/100 WBC (Bld) 11.3 % Normal 1.7-12.0 [facility] Comment on above: Performed By: #### C BC #### [facility] [address] [place] [phone] Billy Devlin NEUT # 1.8 103/ul Normal 1.4-6.5 [facility] Comment on above: Performed By: #### C BC #### [facility] [address] [place] [id number] Billy Devlin Neutrophils/100 WBC (Bld) 54.4 % Normal 43.0-75.0 [facility] Comment on above: Performed By: #### C BC #### [facility] [address] [place] [id number] Billy Devlin Platelet mean volume (Bld) [Entitic vol] 11.3 fL Normal 9.5-13.5 [facility] Comment on above: Performed By: #### C BC #### [facility] [address] [place], [place] [address] Billy Devlin PLT 142 103/ul Critically low 150-450 [facility] Comment on above: Performed By: #### C BC #### [facility] [address] [place], [place] [address] Billy Devlin RBC 3.13 106/ul Critically low 4.70-6.10 [facility] Comment on above: Performed By: #### C BC #### [facility] [address] [place], [place] [address] Billy Devlin WBC 3.4 103/ul Critically low 4.0-11.0 [facility] Comment on above: Performed By: #### C BC #### [facility] [address] [place], [place] [address] Billy Devlin LIVER PROFILEon 05-01-2021 Albumin/Globulin [Mass ratio] 1.0 {ratio} Normal [facility] Comment on above: Performed By: #### H BSANS #### [facility] [address] [place], [place] [address] Billy Quita ALP [Catalytic activity/Vol] 67 U/L Normal 38-126 [facility] Comment on above: Performed By: #### H BSANS #### [facility] [address] [place], [place] [address] Billy Quita ALT [Catalytic activity/Vol] 52 U/L Normal 21-72 [facility] Comment on above: Performed By: #### H BSANS #### [facility] [address] [place] [phone] Billy Quita AST [Catalytic activity/Vol] 51 U/L Normal 17-59 [facility] Comment on above: Performed By: #### H BSANS #### [facility] [address] [place] [phone] Billy Quita BILI, CONJUGATED 0.2 mg/dL Normal 0.0-0.3 [facility] Comment on above: Performed By: #### H BSANS #### [facility] [address] [place] [address] Billy Quita Bilirubin [Mass/Vol] 0.5 mg/dL Normal 0.2-1.3 [facility] Comment on above: Performed By: #### H BSANS #### [facility] [address] [place] [address] Billy Quita Globulin (S) [Mass/Vol] 3.4 g/dL Normal [facility] Comment on above: Performed By: #### H BSANS #### [facility] [address] [place], [place] [address] Billy Quita Protein [Mass/Vol] 6.9 g/dL Normal 6.1-8.2 [facility] Comment on above: Performed By: #### H BSANS #### [facility] [address] [place], [place] [address] Billy Quita PROTIMEon 05-01-2021 INR Coag (PPP) [Relative time] 0.95 {INR} Normal [facility] Comment on above: Performed By: #### C BC #### [facility] [address] [place], [place] [address] Billy Quita INR GUIDELINES SEE BELOW Normal [facility] Comment on above: Result Comment: MOUNA RED INR: 2.0 - 3.0 CONDITIONS NOT LISTED BELOW 2.5 - 3.5 FOR PROSTHETIC HEART VALVE REPLACEMENT 2.5 - 3.5 RECURRENT THROMBOSIS Performed By: #### C BC #### [facility] [address] [place] [address] Billy Quita PT Coag (PPP) [Time] 10.4 s Normal 9.0-11.6 [facility] Comment on above: Performed By: #### C BC #### [facility] [address] [place] [address] Billy Quita RENAL FUNCTION PANELon 05-01 Albumin [Mass/Vol] 3.5 g/dL Normal 3.5-5.0 [facility] Comment on above: Performed By: #### H BSANS #### [facility] [address] [place] [address] Billy Quita Calcium [Mass/Vol] 8.7 mg/dL Normal 8.4-10.2 [facility] Comment on above: Performed By: #### H BSANS #### [facility] [address] [place] [address] Billy Quita Chloride [Moles/Vol] 104 mmol/L Normal 98-107 [facility] Comment on above: Performed By: #### H BSANS #### [facility] [address] [place] [address] Billy Quita CO2 [Moles/Vol] 25.7 mmol/L Normal 22.0-30.0 [facility] Comment on above: Performed By: #### H BSANS #### [facility] [address] [place] [address] Billy Quita Creatinine [Mass/Vol] 1.01 mg/dL Normal 0.66-1.25 [facility] Comment on above: Performed By: #### H BSANS #### [facility] [address] [place] [address] Billy Quita EGFR-AF CHINESE >60 Normal >=60 [facility] Comment on above: Performed By: #### H BSANS #### [facility] [address] [place] [address] Billy Quita EGFR-NON AF CHINESE >60 Normal >=60 [facility] Comment on above: Performed By: #### H BSANS #### [facility] [address] [place] [address] Billy Quita Glucose [Mass/Vol] 103 mg/dL Normal 74-106 [facility] Comment on above: Performed By: #### H ANJUMNS #### [facility] [address] [place] [address] Billy Quita Phosphate [Mass/Vol] 3.6 mg/dL Normal 2.5-4.5 [facility] Comment on above: Performed By: #### H BSANS #### [facility] [address] [place] [address] Billy Quita Potassium [Moles/Vol] 4.2 mmol/L Normal 3.4-5.0 [facility] Comment on above: Performed By: #### H ALEXANDER #### [facility] [address] [place] [address] Billy Quita Sodium [Moles/Vol] 138 mmol/L Normal 137-145 [facility] Comment on above: Performed By: #### H ALEXANDER #### [facility] [address] [place] [address] Billy Quita Urea nitrogen [Mass/Vol] 7.0 mg/dL Critically low 9.0-20.0 [facility] Comment on above: Performed By: #### H BSASUZANNE #### [facility] [address] [place] [address] Billy Quita CBC AUTO DIFFon 04-27-2021 BASO # 0.0 103/ul Normal 0.0-0.1 [facility] Comment on above: Performed By: #### T 7, LIPA, TSH, AMADOU, CMP #### [facility] [address] [place] [address] Dr. Krystle Heaton Basophils/100 WBC (Bld) 0.9 % Normal 0.2-2.0 [facility] Comment on above: Performed By: #### T 7, LIPA, TSH, AMADOU, CMP #### [facility] [address] [place] [address] Dr. Krystle Heaton EO # 0.1 103/ul Normal 0.0-0.7 [facility] Comment on above: Performed By: #### T 7, LIPA, TSH, AMADOU, CMP #### [facility] [address] [place] [address] Dr. Krystle Heaton Eosinophils/100 WBC (Bld) 2.6 % Normal 0.9-7.0 [facility] Comment on above: Performed By: #### T 7, LIPA, TSH, AMADOU, CMP #### [facility] [address] [place] [address] Dr. Krystle Heaton Erythrocyte distribution width (RBC) [Ratio] 12.4 % Normal 11.0-15.0 [facility] Comment on above: Performed By: #### T 7, LIPA, TSH, AMADOU, CMP #### [facility] [address] [place] [address] Dr. Krystle Heaton Hematocrit (Bld) [Volume fraction] 36.8 % Critically low 42.0-54.0 [facility] Comment on above: Performed By: #### T 7, LIPA, TSH, AMADOU, CMP #### [facility] [address] [place] [address] Dr. Krystle Heaton Hemoglobin (Bld) [Mass/Vol] 12.0 g/dL Critically low 14.0-18.0 [facility] Comment on above: Performed By: #### T 7, LIPA, TSH, AMADOU, CMP #### [facility] [address] [place] [address] Dr. Krystle Heaton IG # 0.02 10e3/ul Normal 0.00-0.03 [facility] Comment on above: Performed By: #### T 7, LIPA, TSH, AMADOU, CMP #### [facility] [address] [place] [address] Dr. Krystle Heaton IG % 0.4 % Normal 0.0-0.5 [facility] Comment on above: Performed By: #### T 7, LIPA, TSH, AMADOU, CMP #### [facility] [address] [place] [address] Dr. Krystle Heaton LYMPH # 1.2 103/ul Normal 1.2-3.8 [facility] Comment on above: Performed By: #### T 7, LIPA, TSH, AMADOU, CMP #### [facility] [address] [place] [address] Dr. Krystle Heaton Lymphocytes/100 WBC (Bld) 26.0 % Normal 20.5-60.0 [facility] Comment on above: Performed By: #### T 7, LIPA, TSH, AMADOU, CMP #### [facility] [address] [place] [address] Dr. Krystle Heaton MANUAL DIFF REQ NO Normal [facility] Comment on above: Performed By: #### T 7, LIPA, TSH, AMADOU, CMP #### [facility] [address] [place] [address] Dr. Krystle Heaton MCH (RBC) [Entitic mass] 36.4 pg Critically high 25.9-34.0 [facility] Comment on above: Performed By: #### T 7, LIPA, TSH, AMADOU, CMP #### [facility] [address] [place] [address] Dr. Krystle Heaton MCHC (RBC) [Mass/Vol] 32.6 g/dL Normal 29.9-35.2 [facility] Comment on above: Performed By: #### T 7, LIPA, TSH, AMADOU, CMP #### [facility] [address] [place] [address] Dr. Krystle Heaton MCV (RBC) [Entitic vol] 111.5 fL Critically high 80.0-94.0 [facility] Comment on above: Performed By: #### T 7, LIPA, TSH, AMADOU, CMP #### [facility] [address] [place] [address] Dr. Krystle Heaton MONO # 0.5 103/ul Normal 0.3-0.8 [facility] Comment on above: Performed By: #### T 7, LIPA, TSH, AMADOU, CMP #### [facility] [address] [place] [address] Dr. Krystle Heaton Monocytes/100 WBC (Bld) 10.1 % Normal 1.7-12.0 [facility] Comment on above: Performed By: #### T 7, LIPA, TSH, AMADOU, CMP #### [facility] [address] [place] [address] Dr. Krystle Heaton NEUT # 2.8 103/ul Normal 1.4-6.5 [facility] Comment on above: Performed By: #### T 7, LIPA, TSH, AMADOU, CMP #### [facility] [address] [place] [address] Dr. Krystle Heaton Neutrophils/100 WBC (Bld) 60.0 % Normal 43.0-75.0 [facility] Comment on above: Performed By: #### T 7, LIPA, TSH, AMADOU, CMP #### [facility] [address] [place] [address] Dr. Krystle Heaton Platelet mean volume (Bld) [Entitic vol] 11.0 fL Normal 9.5-13.5 [facility] Comment on above: Performed By: #### T 7, LIPA, TSH, AMADOU, CMP #### [facility] [address] [place] [address] Dr. Krystle Heaton PLT 140 103/ul Critically low 150-450 [facility] Comment on above: Performed By: #### T 7, LIPA, TSH, AMADOU, CMP #### [facility] [address] [place] [address] Dr. Krystle Heaton RBC 3.30 106/ul Critically low 4.70-6.10 [facility] Comment on above: Performed By: #### T 7, LIPA, TSH, AMADOU, CMP #### [facility] [address] [place] [address] Dr. Krystle Heaton WBC 4.7 103/ul Normal 4.0-11.0 [facility] Comment on above: Performed By: #### T 7, LIPA, TSH, AMADOU, CMP #### [facility] [address] [place] [address] Dr. Krystle Heaton FERRITINon 04-27-2021 Ferritin [Mass/Vol] 845.0 ng/mL Critically high 17.9-464.0 [facility] Comment on above: Performed By: #### F ERR #### [facility] [address] [place] [address] Dr. Krystle Heaotn CBC AUTO DIFFon 04-18-2021 BASO # 0.1 103/ul Normal 0.0-0.1 [facility] Comment on above: Performed By: #### T 7, LIPA, TSH, AMADOU, CMP #### [facility] [address] [place] [address] Dr. Krystle Heaton Basophils/100 WBC (Bld) 1.1 % Normal 0.2-2.0 [facility] Comment on above: Performed By: #### T 7, LIPA, TSH, AMADOU, CMP #### [facility] [address] [place] [address] Dr. Krystle Heaton EO # 0.1 103/ul Normal 0.0-0.7 [facility] Comment on above: Performed By: #### T 7, LIPA, TSH, AMADOU, CMP #### [facility] [address] [place] [address] Dr. Krystle Heaton Eosinophils/100 WBC (Bld) 2.2 % Normal 0.9-7.0 [facility] Comment on above: Performed By: #### T 7, LIPA, TSH, AMADOU, CMP #### [facility] [address] [place] [address] Dr. Krystle Heaton Erythrocyte distribution width (RBC) [Ratio] 13.1 % Normal 11.0-15.0 [facility] Comment on above: Performed By: #### T 7, LIPA, TSH, AMADOU, CMP #### [facility] [address] [place] [address] Dr. Krystle Heaton Hematocrit (Bld) [Volume fraction] 35.2 % Critically low 42.0-54.0 [facility] Comment on above: Performed By: #### T 7, LIPA, TSH, AMADOU, CMP #### [facility] [address] [place] [address] Dr. Krystle Heaton Hemoglobin (Bld) [Mass/Vol] 11.8 g/dL Critically low 14.0-18.0 [facility] Comment on above: Performed By: #### T 7, LIPA, TSH, AMADOU, CMP #### [facility] [address] [place] [address] Dr. Krystle Heaton IG # 0.01 10e3/ul Normal 0.00-0.03 [facility] Comment on above: Performed By: #### T 7, LIPA, TSH, AMADOU, CMP #### [facility] [address] [place] [address] Dr. Krystle Heaton IG % 0.2 % Normal 0.0-0.5 [facility] Comment on above: Performed By: #### T 7, LIPA, TSH, AMADOU, CMP #### [facility] [address] [place] [address] Dr. Krystle Heaton LYMPH # 1.6 103/ul Normal 1.2-3.8 [facility] Comment on above: Performed By: #### T 7, LIPA, TSH, AMADOU, CMP #### [facility] [address] [place] [address] Dr. Krystle Heaton Lymphocytes/100 WBC (Bld) 35.1 % Normal 20.5-60.0 [facility] Comment on above: Performed By: #### T 7, LIPA, TSH, AMADOU, CMP #### [facility] [address] [place] [address] Dr. Krystle Heaton MANUAL DIFF REQ NO Normal [facility] Comment on above: Performed By: #### T 7, LIPA, TSH, AMADOU, CMP #### [facility] [address] [place] [address] Dr. Krystle Heaton MCH (RBC) [Entitic mass] 36.6 pg Critically high 25.9-34.0 [facility] Comment on above: Performed By: #### T 7, LIPA, TSH, AMADOU, CMP #### [facility] [address] [place] [address] Dr. Krystle Heaton MCHC (RBC) [Mass/Vol] 33.5 g/dL Normal 29.9-35.2 [facility] Comment on above: Performed By: #### T 7, LIPA, TSH, AMADOU, CMP #### [facility] [address] [place] [address] Dr. Krystle Heaton MCV (RBC) [Entitic vol] 109.3 fL Critically high 80.0-94.0 [facility] Comment on above: Performed By: #### T 7, LIPA, TSH, AMADOU, CMP #### [facility] [address] [place] [address] Dr. Krystle Heaton MONO # 0.5 103/ul Normal 0.3-0.8 [facility] Comment on above: Performed By: #### T 7, LIPA, TSH, AMADOU, CMP #### [facility] [address] [place] [address] Dr. Krystle Heaton Monocytes/100 WBC (Bld) 11.0 % Normal 1.7-12.0 [facility] Comment on above: Performed By: #### T 7, LIPA, TSH, AMADOU, CMP #### [facility] [address] [place] [address] Dr. Krystle Heaton NEUT # 2.2 103/ul Normal 1.4-6.5 [facility] Comment on above: Performed By: #### T 7, LIPA, TSH, AMADOU, CMP #### [facility] [address] [place] [address] Dr. Krystle Heaton Neutrophils/100 WBC (Bld) 50.4 % Normal 43.0-75.0 [facility] Comment on above: Performed By: #### T 7, LIPA, TSH, AMADOU, CMP #### [facility] [address] [place] [address] Dr. Krystle Heaton Platelet mean volume (Bld) [Entitic vol] 10.9 fL Normal 9.5-13.5 [facility] Comment on above: Performed By: #### T 7, LIPA, TSH, AMADOU, CMP #### [facility] [address] [place] [address] Dr. Krystle Heaton PLT 158 103/ul Normal 150-450 [facility] Comment on above: Performed By: #### T 7, LIPA, TSH, AMADOU, CMP #### [facility] [address] [place] [address] Dr. Krystle Heaton RBC 3.22 106/ul Critically low 4.70-6.10 [facility] Comment on above: Performed By: #### T 7, LIPA, TSH, AMADOU, CMP #### [facility] [address] [place] [address] Dr. Krystle Heaton WBC 4.5 103/ul Normal 4.0-11.0 [facility] Comment on above: Performed By: #### T 7, LIPA, TSH, AMADOU, CMP #### [facility] [address] [place] [address] Dr. Krystle Heaton FERRITINon 04-18-2021 Ferritin [Mass/Vol] ng/mL Critically high 17.9-464.0 [facility] Comment on above: Performed By: #### H BSANS #### [facility] [address] [place] [address] Billy Deviln CBC AUTO DIFFon 04-13-2021 BASO # 0.0 103/ul Normal 0.0-0.1 [facility] Comment on above: Performed By: #### T 7, LIPA, TSH, AMADOU, CMP #### [facility] [address] [place] [address] Dr. Krystle Heaton Basophils/100 WBC (Bld) 0.6 % Normal 0.2-2.0 [facility] Comment on above: Performed By: #### T 7, LIPA, TSH, AMADOU, CMP #### [facility] [address] [place] [address] Dr. Krystle Heaton EO # 0.1 103/ul Normal 0.0-0.7 [facility] Comment on above: Performed By: #### T 7, LIPA, TSH, AMADOU, CMP #### [facility] [address] [place] [address] Dr. Krystle Heaton Eosinophils/100 WBC (Bld) 3.2 % Normal 0.9-7.0 [facility] Comment on above: Performed By: #### T 7, LIPA, TSH, AMADOU, CMP #### [facility] [address] [place] [address] Dr. Krystle Heaton Erythrocyte distribution width (RBC) [Ratio] 13.6 % Normal 11.0-15.0 [facility] Comment on above: Performed By: #### T 7, LIPA, TSH, AMADOU, CMP #### [facility] [address] [place] [address] Dr. Krystle Heaton Hematocrit (Bld) [Volume fraction] 35.3 % Critically low 42.0-54.0 [facility] Comment on above: Performed By: #### T 7, LIPA, TSH, AMADOU, CMP #### [facility] [address] [place] [address] Dr. Krystle Heaton Hemoglobin (Bld) [Mass/Vol] 11.9 g/dL Critically low 14.0-18.0 [facility] Comment on above: Performed By: #### T 7, LIPA, TSH, AMADOU, CMP #### [facility] [address] [place] [address] Dr. Krystle Heaton IG # 0.01 10e3/ul Normal 0.00-0.03 [facility] Comment on above: Performed By: #### T 7, LIPA, TSH, AMADOU, CMP #### [facility] [address] [place] [address] Dr. Krystle Heaton IG % 0.3 % Normal 0.0-0.5 [facility] Comment on above: Performed By: #### T 7, LIPA, TSH, AMADOU, CMP #### [facility] [address] [place] [address] Dr. Krystle Heaton LYMPH # 1.1 103/ul Critically low 1.2-3.8 [facility] Comment on above: Performed By: #### T 7, LIPA, TSH, AMADOU, CMP #### [facility] [address] [place] [address] Dr. Krystle Heaton Lymphocytes/100 WBC (Bld) 35.1 % Normal 20.5-60.0 [facility] Comment on above: Performed By: #### T 7, LIPA, TSH, AMADOU, CMP #### [facility] [address] [place] [address] Dr. Krystle Heaton MANUAL DIFF REQ NO Normal [facility] Comment on above: Performed By: #### T 7, LIPA, TSH, AMADOU, CMP #### [facility] [address] [place] [address] Dr. Krystle Heaton MCH (RBC) [Entitic mass] 37.1 pg Critically high 25.9-34.0 [facility] Comment on above: Performed By: #### T 7, LIPA, TSH, AMADOU, CMP #### [facility] [address] [place] [address] Dr. Krystle Heaton MCHC (RBC) [Mass/Vol] 33.7 g/dL Normal 29.9-35.2 [facility] Comment on above: Performed By: #### T 7, LIPA, TSH, AMADOU, CMP #### [facility] [address] [place] [address] Dr. Krystle Heaton MCV (RBC) [Entitic vol] 110.0 fL Critically high 80.0-94.0 [facility] Comment on above: Result Comment: macr ocytosis 3+ Performed By: #### T 7, LIPA, TSH, AMADOU, CMP #### [facility] [address] [place] [address] Dr. Krystle Heaton MONO # 0.3 103/ul Normal 0.3-0.8 [facility] Comment on above: Performed By: #### T 7, LIPA, TSH, AMADOU, CMP #### [facility] [address] [place] [address] Dr. Krystle Heaton Monocytes/100 WBC (Bld) 10.7 % Normal 1.7-12.0 [facility] Comment on above: Performed By: #### T 7, LIPA, TSH, AMADOU, CMP #### [facility] [address] [place] [address] Dr. Krystle Heaton NEUT # 1.5 103/ul Normal 1.4-6.5 [facility] Comment on above: Performed By: #### T 7, LIPA, TSH, AMADOU, CMP #### [facility] [address] [place] [address] Dr. Krystle Heaton Neutrophils/100 WBC (Bld) 50.1 % Normal 43.0-75.0 [facility] Comment on above: Performed By: #### T 7, LIPA, TSH, AMADOU, CMP #### [facility] [address] [place] [address] Dr. Krystle Heaton Platelet mean volume (Bld) [Entitic vol] 10.8 fL Normal 9.5-13.5 [facility] Comment on above: Performed By: #### T 7, LIPA, TSH, AMADOU, CMP #### [facility] [address] [address] [address] Krystle Heaton PLT 131 103/ul Critically low 150-450 [facility] Comment on above: Performed By: #### T 7, LIPA, TSH, AMADOU, CMP #### [facility] [address] [place] [address] Dr. Krystle Heaton RBC 3.21 106/ul Critically low 4.70-6.10 [facility] Comment on above: Performed By: #### T 7, LIPA, TSH, AMADOU, CMP #### [facility] [address] [place] [address] Dr. Krystle Heaton WBC 3.1 103/ul Critically low 4.0-11.0 [facility] Comment on above: Performed By: #### T 7, LIPA, TSH, AMADOU, CMP #### [facility] [address] [place] [address] Dr. Krystle Heaton FERRITINon 04-13-2021 Ferritin [Mass/Vol] ng/mL Critically high 17.9-464.0 [facility] Comment on above: Performed By: #### F ERR #### [facility] [address] [place] [address] Dr. Krystle Heaton Initial Visit (Gastroenterol ogy)on [...] 04-06-2021 BASO # 0.0 103/ul Normal 0.0-0.1 [facility] Comment on above: Performed By: #### H BSANS #### [facility] [address] [id number] Billy [place]a Basophils/100 WBC (Bld) 0.9 % Normal 0.2-2.0 [facility] Comment on above: Performed By: #### H BSANS #### [facility] [address] [place], [place] [address] Billy [place]a EO # 0.1 103/ul Normal 0.0-0.7 [facility] Comment on above: Performed By: #### H BSANS #### [facility] [address] [place], [place] [address] Billy [place] Eosinophils/100 WBC (Bld) 3.0 % Normal 0.9-7.0 [facility] Comment on above: Performed By: #### H BSANS #### [facility] [address] [place], [place] [address] Billy [place]a Erythrocyte distribution width (RBC) [Ratio] 13.6 % Normal 11.0-15.0 [facility] Comment on above: Performed By: #### H BSANS #### [facility] [address] [place], [place] [address] Billy [place] Hematocrit (Bld) [Volume fraction] 39.1 % Critically low 42.0-54.0 [facility] Comment on above: Performed By: #### H BSANS #### [facility] [address] [phone] [place] Hemoglobin (Bld) [Mass/Vol] 13.1 g/dL Critically low 14.0-18.0 [facility] Comment on above: Performed By: #### H BSANS #### [facility] [address] [id number] [place] IG # 0.02 10e3/ul Normal 0.00-0.03 [facility] Comment on above: Performed By: #### H BSANS #### [facility] [address] [address] [place] IG % 0.5 % Normal 0.0-0.5 [facility] Comment on above: Performed By: #### H BSANS #### [facility] [address] [address] [place] LYMPH # 1.1 103/ul Critically low 1.2-3.8 [facility] Comment on above: Performed By: #### H BSANS #### [facility] [address] [address] [place] Lymphocytes/100 WBC (Bld) 26.7 % Normal 20.5-60.0 [facility] Comment on above: Performed By: #### H BSANS #### [facility] [address] [phone] [place] MANUAL DIFF REQ NO Normal [facility] Comment on above: Performed By: #### H BSANS #### [facility] [address] [phone] [place] MCH (RBC) [Entitic mass] 36.7 pg Critically high 25.9-34.0 [facility] Comment on above: Performed By: #### H BSANS #### [facility] [address] [address] [place] MCHC (RBC) [Mass/Vol] 33.5 g/dL Normal 29.9-35.2 [facility] Comment on above: Result Comment: macr ocytosis Performed By: #### H BSANS #### [facility] [address] [place], [place] [address] Billycarrillo Devlin MCV (RBC) [Entitic vol] 109.5 fL Critically high 80.0-94.0 [facility] Comment on above: Performed By: #### H BSANS #### [facility] [address] [phone] Billycarrillo Deanen MONO # 0.4 103/ul Normal 0.3-0.8 [facility] Comment on above: Performed By: #### H BSANS #### [facility] [address] [address] [place] Monocytes/100 WBC (Bld) 8.7 % Normal 1.7-12.0 [facility] Comment on above: Performed By: #### H BSANS #### [facility] [address] [address] [place] NEUT # 2.6 103/ul Normal 1.4-6.5 [facility] Comment on above: Performed By: #### H BSANS #### [facility] [address] [phone] [place] Neutrophils/100 WBC (Bld) 60.2 % Normal 43.0-75.0 [facility] Comment on above: Performed By: #### H BSANS #### [facility] [address] [phone] Billycarrillo [place]lin Platelet mean volume (Bld) [Entitic vol] 11.1 fL Normal 9.5-13.5 [facility] Comment on above: Performed By: #### H BSANS #### [facility] [address] [phone] Billy [place] PLT 162 103/ul Normal 150-450 [facility] Comment on above: Performed By: #### H BSANS #### [facility] [address] [phone] [place] RBC 3.57 106/ul Critically low 4.70-6.10 [facility] Comment on above: Performed By: #### H BSANS #### [facility] [address] [place] [address] Billy [place]lin WBC 4.3 103/ul Normal 4.0-11.0 [facility] Comment on above: Performed By: #### H ALEXANDER #### [facility] [address] [place] [address] Billy Devlin FERRITINon 04-06-2021 Ferritin [Mass/Vol] ng/mL Critically high 17.9-464.0 [facility] Comment on above: Performed By: #### T 7, LIPA, TSH, AMADOU, CMP #### [facility] [address] [place] [address] Dr. Krystle Heaton FREE T4on 04-06-2021 Free T4 [Mass/Vol] 0.73 ng/dL Critically low 0.78-2.19 [facility] Comment on above: Performed By: #### T 7, LIPA, TSH, AMADOU, CMP #### [facility] [address] [place] [address] Dr. Krystle Heaton IRON AND TIBCon 04-06-2021 % SATURATION 54.8 % Normal [facility] Comment on above: Performed By: #### T 7, LIPA, TSH, AMADOU, CMP #### [facility] [address] [place] [address] Dr. Krystle Heaton Iron [Mass/Vol] 161.0 ug/dL Normal 49.0-181.0 [facility] Comment on above: Performed By: #### T 7, LIPA, TSH, AMADOU, CMP #### [facility] [address] [place] [address] Dr. Krystle Heaton TIBC DIRECT 294.0 ug/dL Normal 261.0-497.0 [facility] Comment on above: Performed By: #### T 7, LIPA, TSH, AMADOU, CMP #### [facility] [address] [place] [address] Dr. Krystle Heaton PROF 14(COMP METB)on 021 Albumin [Mass/Vol] 3.7 g/dL Normal 3.5-5.0 [facility] Comment on above: Performed By: #### T 7, LIPA, TSH, AMADOU, CMP #### [facility] [address] [address] [address] Krystle Heaton Albumin/Globulin [Mass ratio] 1.0 {ratio} Normal [facility] Comment on above: Performed By: #### T 7, LIPA, TSH, AMADOU, CMP #### [facility] [address] [place] [address] Dr. Krystle Heaton ALP [Catalytic activity/Vol] 83 U/L Normal 38-126 [facility] Comment on above: Performed By: #### T 7, LIPA, TSH, AMADOU, CMP #### [facility] [address] [place] [address] Dr. Krystle Heaton ALT [Catalytic activity/Vol] 140 U/L Critically high 21-72 [facility] Comment on above: Performed By: #### T 7, LIPA, TSH, AMADOU, CMP #### [facility] [address] [place] [address] Dr. Krystle Heaton Anion gap [Moles/Vol] 15.8 mmol/L Normal [facility] Comment on above: Performed By: #### T 7, LIPA, TSH, AMADOU, CMP #### [facility] [address] [place] [address] Dr. Krystle Heaton AST [Catalytic activity/Vol] 186 U/L Critically high 17-59 [facility] Comment on above: Performed By: #### T 7, LIPA, TSH, AMADOU, CMP #### [facility] [address] [place] [address] Dr. Krystle Heaton Bilirubin [Mass/Vol] 0.5 mg/dL Normal 0.2-1.3 [facility] Comment on above: Performed By: #### T 7, LIPA, TSH, AMADOU, CMP #### [facility] [address] [place] [address] Dr. Krystle Heaton Calcium [Mass/Vol] 9.0 mg/dL Normal 8.4-10.2 [facility] Comment on above: Performed By: #### T 7, LIPA, TSH, AMADOU, CMP #### [facility] [address] [address] [address] Krystle Heaton Chloride [Moles/Vol] 101 mmol/L Normal 98-107 [facility] Comment on above: Performed By: #### T 7, LIPA, TSH, AMADOU, CMP #### [facility] [address] [address] [address] Krystle Heaton CO2 [Moles/Vol] 25.8 mmol/L Normal 22.0-30.0 [facility] Comment on above: Performed By: #### T 7, LIPA, TSH, AMADOU, CMP #### [facility] [address] [address] [address] Krystle Heaton Creatinine [Mass/Vol] 1.07 mg/dL Normal 0.66-1.25 [facility] Comment on above: Performed By: #### T 7, LIPA, TSH, AMADOU, CMP #### [facility] [address] [place] [address] Dr. Krystle Heaton EGFR-AF CHINESE >60 Normal >=60 [facility] Comment on above: Performed By: #### T 7, LIPA, TSH, AMADOU, CMP #### [facility] [address] [place] [address] Dr. Krystle Heaton EGFR-NON AF CHINESE >60 Normal >=60 [facility] Comment on above: Performed By: #### T 7, LIPA, TSH, AMADOU, CMP #### [facility] [address] [address] [address] Krystle Heaton Globulin (S) [Mass/Vol] 3.7 g/dL Normal [facility] Comment on above: Performed By: #### T 7, LIPA, TSH, AMADOU, CMP #### [facility] [address] [address] [address] Krystle Heaton Glucose [Mass/Vol] 104 mg/dL Normal 74-106 [facility] Comment on above: Performed By: #### T 7, LIPA, TSH, AMADOU, CMP #### [facility] [address] [address] [address] Krystle Heaton Potassium [Moles/Vol] 4.6 mmol/L Normal 3.4-5.0 [facility] Comment on above: Performed By: #### T 7, LIPA, TSH, AMADOU, CMP #### [facility] [address] [place] [address] Dr. Krystle Heaton Protein [Mass/Vol] 7.4 g/dL Normal 6.1-8.2 [facility] Comment on above: Performed By: #### T 7, LIPA, TSH, AMADOU, CMP #### [facility] [address] [place] [address] Dr. Krystle Heaton Sodium [Moles/Vol] 138 mmol/L Normal 137-145 [facility] Comment on above: Performed By: #### T 7, LIPA, TSH, AMADOU, CMP #### [facility] [address] [place] [address] Dr. Krystle Heaton Urea nitrogen [Mass/Vol] 10.0 mg/dL Normal 9.0-20.0 [facility] Comment on above: Performed By: #### T 7, LIPA, TSH, AMADOU, CMP #### [facility] [address] [place] [address] Dr. Krystle Heaton Urea nitrogen/Creatinine [Mass ratio] 9.3 mg/mg Normal [facility] Comment on above: Performed By: #### T 7, LIPA, TSH, AMADOU, CMP #### [facility] [address] [place] [address] Dr. Krystle Heaton TSHon 04-06-2021 TSH 1.945 uIU/mL Normal 0.470-4.680 [facility] Comment on above: Performed By: #### T 7, LIPA, TSH, AMADOU, CMP #### [facility] [address] [place] [address] Dr. Krystle Heaton TSH RANGE SEE BELOW Normal [facility] Comment on above: Result Comment: <0.3 4 UIU/ml HYPERTHYROID 0.34-5.60 UIU/ml EUTHYROID >5.60 UIU/ml HYPOTHYROID Performed By: #### T 7, LIPA, TSH, AMADOU, CMP #### [facility] [address] [place] [address] Dr. Krystle Heaton CBC AUTO DIFFon 03-30-2021 BASO # 0.0 103/ul Normal 0.0-0.1 [facility] Comment on above: Performed By: #### T 7, LIPA, TSH, AMADOU, CMP #### [facility] [address] [place] [address] Dr. Krystle Heaton Basophils/100 WBC (Bld) 0.8 % Normal 0.2-2.0 [facility] Comment on above: Performed By: #### T 7, LIPA, TSH, AMADOU, CMP #### [facility] [address] [place] [address] Dr. Krystle Heaton EO # 0.1 103/ul Normal 0.0-0.7 [facility] Comment on above: Performed By: #### T 7, LIPA, TSH, AMADOU, CMP #### [facility] [address] [place] [address] Dr. Krystle Heaton Eosinophils/100 WBC (Bld) 3.0 % Normal 0.9-7.0 [facility] Comment on above: Performed By: #### T 7, LIPA, TSH, AMADOU, CMP #### [facility] [address] [place] [address] Dr. Krystle Heaton Erythrocyte distribution width (RBC) [Ratio] 13.9 % Normal 11.0-15.0 [facility] Comment on above: Performed By: #### T 7, LIPA, TSH, AMADOU, CMP #### [facility] [address] [place] [address] Dr. Krystle Heaton Hematocrit (Bld) [Volume fraction] 40.4 % Critically low 42.0-54.0 [facility] Comment on above: Performed By: #### T 7, LIPA, TSH, AMADOU, CMP #### [facility] [address] [place] [address] Dr. Krystle Heaton Hemoglobin (Bld) [Mass/Vol] 13.5 g/dL Critically low 14.0-18.0 [facility] Comment on above: Performed By: #### T 7, LIPA, TSH, AMADOU, CMP #### [facility] [address] [place] [address] Dr. Krystle Heaton IG # 0.01 10e3/ul Normal 0.00-0.03 [facility] Comment on above: Performed By: #### T 7, LIPA, TSH, AMADOU, CMP #### [facility] [address] [place] [address] Dr. Krystle Heaton IG % 0.3 % Normal 0.0-0.5 [facility] Comment on above: Performed By: #### T 7, LIPA, TSH, AMADOU, CMP #### [facility] [address] [place] [address] Dr. Krystle Heaton LYMPH # 1.2 103/ul Normal 1.2-3.8 [facility] Comment on above: Performed By: #### T 7, LIPA, TSH, AMADOU, CMP #### [facility] [address] [place] [address] Dr. Krystle Heaton Lymphocytes/100 WBC (Bld) 32.7 % Normal 20.5-60.0 [facility] Comment on above: Performed By: #### T 7, LIPA, TSH, AMADOU, CMP #### [facility] [address] [place] [address] Dr. Krystle Heaton MANUAL DIFF REQ NO Normal [facility] Comment on above: Performed By: #### T 7, LIPA, TSH, AMADOU, CMP #### [facility] [address] [place] [address] Dr. Krystle Heaton MCH (RBC) [Entitic mass] 36.5 pg Critically high 25.9-34.0 [facility] Comment on above: Performed By: #### T 7, LIPA, TSH, AMADOU, CMP #### [facility] [address] [place] [address] Dr. Krystle Heaton MCHC (RBC) [Mass/Vol] 33.4 g/dL Normal 29.9-35.2 [facility] Comment on above: Result Comment: MACR OCYTOSIS PRESENT Performed By: #### T 7, LIPA, TSH, AMADOU, CMP #### [facility] [address] [place] [address] Dr. Krystle Heaton MCV (RBC) [Entitic vol] 109.2 fL Critically high 80.0-94.0 [facility] Comment on above: Performed By: #### T 7, LIPA, TSH, AMADOU, CMP #### [facility] [address] [place] [address] Dr. Krystle Heaton MONO # 0.4 103/ul Normal 0.3-0.8 [facility] Comment on above: Performed By: #### T 7, LIPA, TSH, AMADOU, CMP #### [facility] [address] [place] [address] Dr. Krystle Heaton Monocytes/100 WBC (Bld) 11.4 % Normal 1.7-12.0 [facility] Comment on above: Performed By: #### T 7, LIPA, TSH, AMADOU, CMP #### [facility] [address] [place] [address] Dr. Krystle Heaton NEUT # 1.9 103/ul Normal 1.4-6.5 [facility] Comment on above: Performed By: #### T 7, LIPA, TSH, AMADOU, CMP #### [facility] [address] [place] [address] Dr. Krystle Heaton Neutrophils/100 WBC (Bld) 51.8 % Normal 43.0-75.0 [facility] Comment on above: Performed By: #### T 7, LIPA, TSH, AMADOU, CMP #### [facility] [address] [place] [address] Dr. Krystle Heaton Platelet mean volume (Bld) [Entitic vol] 10.8 fL Normal 9.5-13.5 [facility] Comment on above: Performed By: #### T 7, LIPA, TSH, AMADOU, CMP #### [facility] [address] [place] [address] Dr. Krystle Heaton PLT 184 103/ul Normal 150-450 [facility] Comment on above: Performed By: #### T 7, LIPA, TSH, AMADOU, CMP #### [facility] [address] [address] [address] Krystle Heaton RBC 3.70 106/ul Critically low 4.70-6.10 [facility] Comment on above: Performed By: #### T 7, LIPA, TSH, AMADOU, CMP #### [facility] [address] [address] [address] Krystle Heaton WBC 3.6 103/ul Critically low 4.0-11.0 [facility] Comment on above: Performed By: #### T 7, LIPA, TSH, AMADOU, CMP #### [facility] [address] [address] [address] Krystle Heaton FERRITINon 03-30-2021 Ferritin [Mass/Vol] ng/mL Critically high 17.9-464.0 [facility] Comment on above: Performed By: #### F ERR #### [facility] [address] [place] [address] Dr. Krystle Heaton FREE T4on 03-30-2021 Free T4 [Mass/Vol] 0.83 ng/dL Normal 0.78-2.19 [facility] Comment on above: Performed By: #### F ERR #### [facility] [address] [place] [address] Dr. Krystle Heaton IRON AND TIBCon 03-30-2021 % SATURATION 78.5 % Normal [facility] Comment on above: Performed By: #### F ERR #### [facility] [address] [place] [address] Dr. Krystle Heaton Iron [Mass/Vol] 230.0 ug/dL Critically high 49.0-181.0 [facility] Comment on above: Performed By: #### F ERR #### [facility] [address] [place] [address] Dr. Krystle Heaton TIBC DIRECT 293.0 ug/dL Normal 261.0-497.0 [facility] Comment on above: Performed By: #### F ERR #### [facility] [address] [place] [address] Dr. Krystle Heaton PROF 14(COMP METB)on 05-21-2 021 Albumin [Mass/Vol] 3.8 g/dL Normal 3.5-5.0 [facility] Comment on above: Performed By: #### T 7, LIPA, TSH, AMADOU, CMP #### [facility] [address] [place] [address] Dr. Krystle Heaton Albumin/Globulin [Mass ratio] 1.0 {ratio} Normal [facility] Comment on above: Performed By: #### T 7, LIPA, TSH, AMADOU, CMP #### [facility] [address] [place] [address] Dr. Krystle Heaton ALP [Catalytic activity/Vol] 90 U/L Normal 38-126 [facility] Comment on above: Performed By: #### T 7, LIPA, TSH, AMADOU, CMP #### [facility] [address] [place] [address] Dr. Krystle Heaton ALT [Catalytic activity/Vol] 149 U/L Critically high 21-72 [facility] Comment on above: Performed By: #### T 7, LIPA, TSH, AMADOU, CMP #### [facility] [address] [place] [address] Dr. Krystle Heaton Anion gap [Moles/Vol] 16.0 mmol/L Normal [facility] Comment on above: Performed By: #### T 7, LIPA, TSH, AMADOU, CMP #### [facility] [address] [place] [address] Dr. Krystle Heaton AST [Catalytic activity/Vol] 187 U/L Critically high 17-59 [facility] Comment on above: Performed By: #### T 7, LIPA, TSH, AMADOU, CMP #### [facility] [address] [place] [address] Dr. Krystle Heaton Bilirubin [Mass/Vol] 0.6 mg/dL Normal 0.2-1.3 [facility] Comment on above: Performed By: #### T 7, LIPA, TSH, AMADOU, CMP #### [facility] [address] [place] [address] Dr. Krystle Heaton Calcium [Mass/Vol] 9.2 mg/dL Normal 8.4-10.2 [facility] Comment on above: Performed By: #### T 7, LIPA, TSH, AMADOU, CMP #### [facility] [address] [place] [address] Dr. Krystle Heaton Chloride [Moles/Vol] 100 mmol/L Normal 98-107 [facility] Comment on above: Performed By: #### T 7, LIPA, TSH, AMADOU, CMP #### [facility] [address] [place] [address] Dr. Krystle Heaton CO2 [Moles/Vol] 26.2 mmol/L Normal 22.0-30.0 [facility] Comment on above: Performed By: #### T 7, LIPA, TSH, AMADOU, CMP #### [facility] [address] [place] [address] Dr. Krystle Heaton Creatinine [Mass/Vol] 1.07 mg/dL Normal 0.66-1.25 [facility] Comment on above: Performed By: #### T 7, LIPA, TSH, AMADOU, CMP #### [facility] [address] [place] [address] Dr. Krystle Heaton EGFR-AF CHINESE >60 Normal >=60 [facility] Comment on above: Performed By: #### T 7, LIPA, TSH, AMADOU, CMP #### [facility] [address] [place] [address] Dr. Krystle Heaton EGFR-NON AF CHINESE >60 Normal >=60 [facility] Comment on above: Performed By: #### T 7, LIPA, TSH, AMADOU, CMP #### [facility] [address] [place] [address] Dr. Krystle Heaton Globulin (S) [Mass/Vol] 3.8 g/dL Normal [facility] Comment on above: Performed By: #### T 7, LIPA, TSH, AMADOU, CMP #### [facility] [address] [place] [address] Dr. Krystle Heaton Glucose [Mass/Vol] 110 mg/dL Critically high 74-106 [facility] Comment on above: Performed By: #### T 7, LIPA, TSH, AMADOU, CMP #### [facility] [address] [place] [address] Dr. Krystle Heaton Potassium [Moles/Vol] 4.2 mmol/L Normal 3.4-5.0 [facility] Comment on above: Performed By: #### T 7, LIPA, TSH, AMADOU, CMP #### [facility] [address] [place] [address] Dr. Krystle Heaton Protein [Mass/Vol] 7.6 g/dL Normal 6.1-8.2 [facility] Comment on above: Performed By: #### T 7, LIPA, TSH, AMADOU, CMP #### [facility] [address] [place] [address] Dr. Krystle Heaton Sodium [Moles/Vol] 138 mmol/L Normal 137-145 [facility] Comment on above: Performed By: #### T 7, LIPA, TSH, AMADOU, CMP #### [facility] [address] [place] [address] Dr. Krystle Heaton Urea nitrogen [Mass/Vol] 9.0 mg/dL Normal 9.0-20.0 [facility] Comment on above: Performed By: #### T 7, LIPA, TSH, AMADOU, CMP #### [facility] [address] [place] [address] Dr. Krystle Heaton Urea nitrogen/Creatinine [Mass ratio] 8.4 mg/mg Normal [facility] Comment on above: Performed By: #### T 7, LIPA, TSH, AMADOU, CMP #### [facility] [address] [place] [address] Dr. Krystle Heaton TSHon 03-30-2021 TSH 1.030 uIU/mL Normal 0.470-4.680 [facility] Comment on above: Performed By: #### T 7, LIPA, TSH, AMADOU, CMP #### [facility] [address] [place] [address] Dr. Krystle Heaton TSH RANGE SEE BELOW Normal [facility] Comment on above: Result Comment: <0.3 4 UIU/ml HYPERTHYROID 0.34-5.60 UIU/ml EUTHYROID >5.60 UIU/ml HYPOTHYROID Performed By: #### T 7, LIPA, TSH, AMADOU, CMP #### [facility] [address] [place] [address] Dr. Krystle Heaton CBC AUTO DIFFon 03-22-2021 BASO # 0.0 103/ul Normal 0.0-0.1 [facility] Comment on above: Performed By: #### T 7, LIPA, TSH, AMADOU, CMP #### [facility] [address] [place] [address] Dr. Krystle Heaton Basophils/100 WBC (Bld) 0.6 % Normal 0.2-2.0 [facility] Comment on above: Performed By: #### T 7, LIPA, TSH, AMDAOU, CMP #### [facility] [address] [place] [address] Dr. Krystle Heaton EO # 0.1 103/ul Normal 0.0-0.7 [facility] Comment on above: Performed By: #### T 7, LIPA, TSH, AMADOU, CMP #### [facility] [address] [place] [address] Dr. Krystle Heaton Eosinophils/100 WBC (Bld) 2.1 % Normal 0.9-7.0 [facility] Comment on above: Performed By: #### T 7, LIPA, TSH, AMADOU, CMP #### [facility] [address] [place] [address] Dr. Krystle Heaton Erythrocyte distribution width (RBC) [Ratio] 12.7 % Normal 11.0-15.0 [facility] Comment on above: Performed By: #### T 7, LIPA, TSH, AMADOU, CMP #### [facility] [address] [place] [address] Dr. Krystle Heaton Hematocrit (Bld) [Volume fraction] 37.5 % Critically low 42.0-54.0 [facility] Comment on above: Performed By: #### T 7, LIPA, TSH, AMADOU, CMP #### [facility] [address] [place] [address] Dr. Krystle Heaton Hemoglobin (Bld) [Mass/Vol] 13.1 g/dL Critically low 14.0-18.0 [facility] Comment on above: Performed By: #### T 7, LIPA, TSH, AMADOU, CMP #### [facility] [address] [place] [address] Dr. Krystle Heaton IG # 0.01 10e3/ul Normal 0.00-0.03 [facility] Comment on above: Performed By: #### T 7, LIPA, TSH, AMADOU, CMP #### [facility] [address] [place] [address] Dr. Krystle Heaton IG % 0.3 % Normal 0.0-0.5 [facility] Comment on above: Performed By: #### T 7, LIPA, TSH, AMADOU, CMP #### [facility] [address] [place] [address] Dr. Krystle Heaton LYMPH # 1.2 103/ul Normal 1.2-3.8 [facility] Comment on above: Performed By: #### T 7, LIPA, TSH, AMADOU, CMP #### [facility] [address] [place] [address] Dr. Krystle Heaton Lymphocytes/100 WBC (Bld) 35.7 % Normal 20.5-60.0 [facility] Comment on above: Performed By: #### T 7, LIPA, TSH, AMADOU, CMP #### [facility] [address] [place] [address] Dr. Krystle Heaton MANUAL DIFF REQ NO Normal [facility] Comment on above: Performed By: #### T 7, LIPA, TSH, AMADOU, CMP #### [facility] [address] [place] [address] Dr. Krystle Heaton MCH (RBC) [Entitic mass] 37.0 pg Critically high 25.9-34.0 [facility] Comment on above: Performed By: #### T 7, LIPA, TSH, AMADOU, CMP #### [facility] [address] [place] [address] Dr. Krystle Heaton MCHC (RBC) [Mass/Vol] 34.9 g/dL Normal 29.9-35.2 [facility] Comment on above: Performed By: #### T 7, LIPA, TSH, AMADOU, CMP #### [facility] [address] [place] [address] Dr. Krystle Heaton MCV (RBC) [Entitic vol] 105.9 fL Critically high 80.0-94.0 [facility] Comment on above: Performed By: #### T 7, LIPA, TSH, AMADOU, CMP #### [facility] [address] [place] [address] Dr. Krystle Heaton MONO # 0.2 103/ul Critically low 0.3-0.8 [facility] Comment on above: Performed By: #### T 7, LIPA, TSH, AMADOU, CMP #### [facility] [address] [place] [address] Dr. Krystle Heaton Monocytes/100 WBC (Bld) 6.8 % Normal 1.7-12.0 [facility] Comment on above: Performed By: #### T 7, LIPA, TSH, AMADOU, CMP #### [facility] [address] [place] [address] Dr. Krystle Heaton NEUT # 1.8 103/ul Normal 1.4-6.5 [facility] Comment on above: Performed By: #### T 7, LIPA, TSH, AMADOU, CMP #### [facility] [address] [place] [address] Dr. Krystle Heaton Neutrophils/100 WBC (Bld) 54.5 % Normal 43.0-75.0 [facility] Comment on above: Performed By: #### T 7, LIPA, TSH, AMADOU, CMP #### [facility] [address] [place] [address] Dr. Krystle Heaton Platelet mean volume (Bld) [Entitic vol] 10.4 fL Normal 9.5-13.5 [facility] Comment on above: Performed By: #### T 7, LIPA, TSH, AMADOU, CMP #### [facility] [address] [place] [address] Dr. Krystle Heaton PLT 126 103/ul Critically low 150-450 [facility] Comment on above: Performed By: #### T 7, LIPA, TSH, AMADOU, CMP #### [facility] [address] [place] [address] Dr. Krystle Heaton RBC 3.54 106/ul Critically low 4.70-6.10 [facility] Comment on above: Performed By: #### T 7, LIPA, TSH, AMADOU, CMP #### [facility] [address] [place] [address] Dr. Krystle Heaton WBC 3.4 103/ul Critically low 4.0-11.0 [facility] Comment on above: Performed By: #### T 7, LIPA, TSH, AMADOU, CMP #### [facility] [address] [place] [address] Dr. Krystle Heaton FERRITINon 03-22-2021 Ferritin [Mass/Vol] ng/mL Critically high 17.9-464.0 [facility] Comment on above: Performed By: #### T 7, LIPA, TSH, AMADOU, CMP #### [facility] [address] [place] [address] Dr. Krystle Heaton FREE T4on 03-22-2021 Free T4 [Mass/Vol] 0.78 ng/dL Normal 0.78-2.19 [facility] Comment on above: Performed By: #### T 7, LIPA, TSH, AMADOU, CMP #### [facility] [address] [place] [address] Dr. Krystle Heaton IRON AND TIBCon 03-22-2021 % SATURATION 106.0 % Normal [facility] Comment on above: Performed By: #### T 7, LIPA, TSH, AMADOU, CMP #### [facility] [address] [place] [address] Dr. Krystle Heaton Iron [Mass/Vol] 233.0 ug/dL Critically high 49.0-181.0 [facility] Comment on above: Performed By: #### T 7, LIPA, TSH, AMADOU, CMP #### [facility] [address] [place] [address] Dr. Krystle Heaton TIBC DIRECT 220.0 ug/dL Critically low 261.0-497.0 [facility] Comment on above: Performed By: #### T 7, LIPA, TSH, AMADOU, CMP #### [facility] [address] [address] [address] Krystle Heaton PROF 14(COMP METB)on 021 Albumin [Mass/Vol] 3.5 g/dL Normal 3.5-5.0 [facility] Comment on above: Performed By: #### T 7, LIPA, TSH, AMADOU, CMP #### [facility] [address] [place] [address] Dr. Krystle Heaton Albumin/Globulin [Mass ratio] 1.0 {ratio} Normal [facility] Comment on above: Performed By: #### T 7, LIPA, TSH, AMADOU, CMP #### [facility] [address] [place] [address] Dr. Krystle Heaton ALP [Catalytic activity/Vol] 77 U/L Normal 38-126 [facility] Comment on above: Performed By: #### T 7, LIPA, TSH, AMADOU, CMP #### [facility] [address] [place] [address] Dr. Krystle Heaton ALT [Catalytic activity/Vol] 95 U/L Critically high 21-72 [facility] Comment on above: Performed By: #### T 7, LIPA, TSH, AMADOU, CMP #### [facility] [address] [address] [address] Krystle Heaton Anion gap [Moles/Vol] 17.3 mmol/L Normal [facility] Comment on above: Performed By: #### T 7, LIPA, TSH, AMADOU, CMP #### [facility] [address] [address] [address] Krystle Heaton AST [Catalytic activity/Vol] 161 U/L Critically high 17-59 [facility] Comment on above: Performed By: #### T 7, LIPA, TSH, AMADOU, CMP #### [facility] [address] [address] [address] Krystle Heaton Bilirubin [Mass/Vol] 0.8 mg/dL Normal 0.2-1.3 [facility] Comment on above: Performed By: #### T 7, LIPA, TSH, AMADOU, CMP #### [facility] [address] [place] [address] Dr. Krystle Heaton Calcium [Mass/Vol] 8.5 mg/dL Normal 8.4-10.2 [facility] Comment on above: Performed By: #### T 7, LIPA, TSH, AMADOU, CMP #### [facility] [address] [place] [address] Dr. Krystle Heaton Chloride [Moles/Vol] 101 mmol/L Normal 98-107 [facility] Comment on above: Performed By: #### T 7, LIPA, TSH, AMADOU, CMP #### [facility] [address] [place] [address] Dr. Krystle Heaton CO2 [Moles/Vol] 22.6 mmol/L Normal 22.0-30.0 [facility] Comment on above: Performed By: #### T 7, LIPA, TSH, AMADOU, CMP #### [facility] [address] [place] [address] Dr. Krystle Heaton Creatinine [Mass/Vol] 0.98 mg/dL Normal 0.66-1.25 [facility] Comment on above: Performed By: #### T 7, LIPA, TSH, AMADOU, CMP #### [facility] [address] [place] [address] Dr. Krystle Heaton EGFR-AF CHINESE >60 Normal >=60 [facility] Comment on above: Performed By: #### T 7, LIPA, TSH, AMADOU, CMP #### [facility] [address] [place] [address] Dr. Krystle Heaton EGFR-NON AF CHINESE >60 Normal >=60 [facility] Comment on above: Performed By: #### T 7, LIPA, TSH, AMADOU, CMP #### [facility] [address] [place] [address] Dr. Krystle Heaton Globulin (S) [Mass/Vol] 3.4 g/dL Normal [facility] Comment on above: Performed By: #### T 7, LIPA, TSH, AMADOU, CMP #### [facility] [address] [place] [address] Dr. Krystel Heaton Glucose [Mass/Vol] 103 mg/dL Normal 74-106 [facility] Comment on above: Performed By: #### T 7, LIPA, TSH, AMADOU, CMP #### [facility] [address] [place] [address] Dr. Krystle Heaton Potassium [Moles/Vol] 3.9 mmol/L Normal 3.4-5.0 [facility] Comment on above: Performed By: #### T 7, LIPA, TSH, AMADOU, CMP #### [facility] [address] [place] [address] Dr. Krystle Heaton Protein [Mass/Vol] 6.9 g/dL Normal 6.1-8.2 [facility] Comment on above: Performed By: #### T 7, LIPA, TSH, AMADOU, CMP #### [facility] [address] [place] [address] Dr. Krystle Heatno Sodium [Moles/Vol] 137 mmol/L Normal 137-145 [facility] Comment on above: Performed By: #### T 7, LIPA, TSH, AMADOU, CMP #### [facility] [address] [place] [address] Dr. Krystle Heaton Urea nitrogen [Mass/Vol] 8.0 mg/dL Critically low 9.0-20.0 [facility] Comment on above: Performed By: #### T 7, LIPA, TSH, AMADOU, CMP #### [facility] [address] [place] [address] Dr. Krystle Heaton Urea nitrogen/Creatinine [Mass ratio] 8.2 mg/mg Normal [facility] Comment on above: Performed By: #### T 7, LIPA, TSH, AMADOU, CMP #### [facility] [address] [place] [address] Dr. Krystle Heaton TSHon 03-22-2021 TSH 2.059 uIU/mL Normal 0.470-4.680 [facility] Comment on above: Performed By: #### T 7, LIPA, TSH, AMADOU, CMP #### [facility] [address] [place] [address] Dr. Krystle Heaton TSH RANGE SEE BELOW Normal [facility] Comment on above: Result Comment: <0.3 4 UIU/ml HYPERTHYROID 0.34-5.60 UIU/ml EUTHYROID >5.60 UIU/ml HYPOTHYROID Performed By: #### T 7, LIPA, TSH, AMADOU, CMP #### [facility] [address] [place] [address] Dr. Krystle Heaton CBC AUTO DIFFon 03-17-2021 BASO # 0.0 103/ul Normal 0.0-0.1 [facility] Comment on above: Performed By: #### T 7, LIPA, TSH, AMADOU, CMP #### [facility] [address] [place] [address] Dr. Krystle Heaton Basophils/100 WBC (Bld) 0.3 % Normal 0.2-2.0 [facility] Comment on above: Performed By: #### T 7, LIPA, TSH, AMADOU, CMP #### [facility] [address] [place] [address] Dr. Krystle Heaton EO # 0.1 103/ul Normal 0.0-0.7 [facility] Comment on above: Performed By: #### T 7, LIPA, TSH, AMADOU, CMP #### [facility] [address] [place] [address] Dr. Krystle Heaton Eosinophils/100 WBC (Bld) 1.8 % Normal 0.9-7.0 [facility] Comment on above: Performed By: #### T 7, LIPA, TSH, AMADOU, CMP #### [facility] [address] [place] [address] Dr. Krystle Heaton Erythrocyte distribution width (RBC) [Ratio] 12.5 % Normal 11.0-15.0 [facility] Comment on above: Performed By: #### T 7, LIPA, TSH, AMADOU, CMP #### [facility] [address] [place] [address] Dr. Krystle Heaton Hematocrit (Bld) [Volume fraction] 40.9 % Critically low 42.0-54.0 [facility] Comment on above: Performed By: #### T 7, LIPA, TSH, AMADOU, CMP #### [facility] [address] [place] [address] Dr. Krystle Heaton Hemoglobin (Bld) [Mass/Vol] 14.1 g/dL Normal 14.0-18.0 [facility] Comment on above: Performed By: #### T 7, LIPA, TSH, AMADOU, CMP #### [facility] [address] [place] [address] Dr. Krystle Heaton IG # 0.01 10e3/ul Normal 0.00-0.03 [facility] Comment on above: Performed By: #### T 7, LIPA, TSH, AMADOU, CMP #### [facility] [address] [place] [address] Dr. Krystle Heaton IG % 0.3 % Normal 0.0-0.5 [facility] Comment on above: Performed By: #### T 7, LIPA, TSH, AMADOU, CMP #### [facility] [address] [place] [address] Dr. Krystle Heaton LYMPH # 1.3 103/ul Normal 1.2-3.8 [facility] Comment on above: Performed By: #### T 7, LIPA, TSH, AMADOU, CMP #### [facility] [address] [place] [address] Dr. Krystle Heaton Lymphocytes/100 WBC (Bld) 41.1 % Normal 20.5-60.0 [facility] Comment on above: Performed By: #### T 7, LIPA, TSH, AMADOU, CMP #### [facility] [address] [place] [address] Dr. Krystle Heaton MANUAL DIFF REQ NO Normal [facility] Comment on above: Performed By: #### T 7, LIPA, TSH, AMADOU, CMP #### [facility] [address] [place] [address] Dr. Krystle Heaton MCH (RBC) [Entitic mass] 36.3 pg Critically high 25.9-34.0 [facility] Comment on above: Performed By: #### T 7, LIPA, TSH, AMADOU, CMP #### [facility] [address] [place] [address] Dr. Krystle Heaton MCHC (RBC) [Mass/Vol] 34.5 g/dL Normal 29.9-35.2 [facility] Comment on above: Performed By: #### T 7, LIPA, TSH, AMADOU, CMP #### [facility] [address] [place] [address] Dr. Krystle Heaton MCV (RBC) [Entitic vol] 105.4 fL Critically high 80.0-94.0 [facility] Comment on above: Performed By: #### T 7, LIPA, TSH, AMADOU, CMP #### [facility] [address] [place] [address] Dr. Krystle Heaton MONO # 0.3 103/ul Normal 0.3-0.8 [facility] Comment on above: Performed By: #### T 7, LIPA, TSH, AMADOU, CMP #### [facility] [address] [place] [address] Dr. Krystle Heaton Monocytes/100 WBC (Bld) 8.0 % Normal 1.7-12.0 [facility] Comment on above: Performed By: #### T 7, LIPA, TSH, AMADOU, CMP #### [facility] [address] [place] [address] Dr. Krystle Heaton NEUT # 1.6 103/ul Normal 1.4-6.5 [facility] Comment on above: Performed By: #### T 7, LIPA, TSH, AMADOU, CMP #### [facility] [address] [place] [address] Dr. Krystle Heaton Neutrophils/100 WBC (Bld) 48.5 % Normal 43.0-75.0 [facility] Comment on above: Performed By: #### T 7, LIPA, TSH, AMADOU, CMP #### [facility] [address] [place] [address] Dr. Krystle Heaton Platelet mean volume (Bld) [Entitic vol] 10.6 fL Normal 9.5-13.5 [facility] Comment on above: Performed By: #### T 7, LIPA, TSH, AMADOU, CMP #### [facility] [address] [address] [address] Krystle Heaton PLT 134 103/ul Critically low 150-450 [facility] Comment on above: Performed By: #### T 7, LIPA, TSH, AMADOU, CMP #### [facility] [address] [place] [address] Dr. Krystle Heaton RBC 3.88 106/ul Critically low 4.70-6.10 [facility] Comment on above: Result Comment: Macr ocytosis 1+ Stomatocytes 1+ Performed By: #### T 7, LIPA, TSH, AMADOU, CMP #### [facility] [address] [place] [address] Dr. Krystle Heaton WBC 3.3 103/ul Critically low 4.0-11.0 [facility] Comment on above: Performed By: #### T 7, LIPA, TSH, AMADOU, CMP #### [facility] [address] [place] [address] Dr. Krystle Heaton FERRITINon 03-17-2021 Ferritin [Mass/Vol] ng/mL Critically high 17.9-464.0 [facility] Comment on above: Performed By: #### T 7, LIPA, TSH, AMADOU, CMP #### [facility] [address] [place] [address] Dr. Krystle Heaton FREE T4on 03-17-2021 Free T4 [Mass/Vol] 0.82 ng/dL Normal 0.78-2.19 [facility] Comment on above: Performed By: #### T 7, LIPA, TSH, AMADOU, CMP #### [facility] [address] [place] [address] Dr. Krystle Heaton IRON AND TIBCon 03-17-2021 % SATURATION 100.8 % Normal [facility] Comment on above: Performed By: #### T 7, LIPA, TSH, AMADOU, CMP #### [facility] [address] [place] [address] Dr. Krystle Heaton Iron [Mass/Vol] 249.0 ug/dL Critically high 49.0-181.0 [facility] Comment on above: Performed By: #### T 7, LIPA, TSH, AMADOU, CMP #### [facility] [address] [place] [address] Dr. Krystle Heaton TIBC DIRECT 247.0 ug/dL Critically low 261.0-497.0 [facility] Comment on above: Performed By: #### T 7, LIPA, TSH, AMADOU, CMP #### [facility] [address] [place] [address] Dr. Krystle Heaton PROF 14(COMP METB)on 021 Albumin [Mass/Vol] 3.7 g/dL Normal 3.5-5.0 [facility] Comment on above: Performed By: #### T 7, LIPA, TSH, AMADOU, CMP #### [facility] [address] [place] [address] Dr. Krystle Heaton Albumin/Globulin [Mass ratio] 1.1 {ratio} Normal [facility] Comment on above: Performed By: #### T 7, LIPA, TSH, AMADOU, CMP #### [facility] [address] [place] [address] Dr. Krystle Heaton ALP [Catalytic activity/Vol] 78 U/L Normal 38-126 [facility] Comment on above: Performed By: #### T 7, LIPA, TSH, AMADOU, CMP #### [facility] [address] [place] [address] Dr. Krystle Heaton ALT [Catalytic activity/Vol] 100 U/L Critically high 21-72 [facility] Comment on above: Performed By: #### T 7, LIPA, TSH, AMADOU, CMP #### [facility] [address] [place] [address] Dr. Krystle Heaton Anion gap [Moles/Vol] 14.4 mmol/L Normal [facility] Comment on above: Performed By: #### T 7, LIPA, TSH, AMADOU, CMP #### [facility] [address] [place] [address] Dr. Krystle Heaton AST [Catalytic activity/Vol] 158 U/L Critically high 17-59 [facility] Comment on above: Performed By: #### T 7, LIPA, TSH, AMADOU, CMP #### [facility] [address] [address] [address] Krystle Heaton Bilirubin [Mass/Vol] 0.6 mg/dL Normal 0.2-1.3 [facility] Comment on above: Performed By: #### T 7, LIPA, TSH, AMADOU, CMP #### [facility] [address] [address] [address] Krystle Heaton Calcium [Mass/Vol] 8.9 mg/dL Normal 8.4-10.2 [facility] Comment on above: Performed By: #### T 7, LIPA, TSH, AMADOU, CMP #### [facility] [address] [place] [address] Dr. Krystle Heatno Chloride [Moles/Vol] 100 mmol/L Normal 98-107 [facility] Comment on above: Performed By: #### T 7, LIPA, TSH, AMADOU, CMP #### [facility] [address] [address] [address] Krystle Heaton CO2 [Moles/Vol] 27.3 mmol/L Normal 22.0-30.0 [facility] Comment on above: Performed By: #### T 7, LIPA, TSH, AMADOU, CMP #### [facility] [address] [place] [address] Dr. Krystle Heaton Creatinine [Mass/Vol] 1.08 mg/dL Normal 0.66-1.25 [facility] Comment on above: Performed By: #### T 7, LIPA, TSH, AMADOU, CMP #### [facility] [address] [address] [address] Krystle Heaton EGFR-AF CHINESE >60 Normal >=60 [facility] Comment on above: Performed By: #### T 7, LIPA, TSH, AMADOU, CMP #### [facility] [address] [address] [address] Krystle Heaton EGFR-NON AF CHINESE >60 Normal >=60 [facility] Comment on above: Performed By: #### T 7, LIPA, TSH, AMADOU, CMP #### [facility] [address] [place] [address] Dr. Krystle Heaton Globulin (S) [Mass/Vol] 3.5 g/dL Normal [facility] Comment on above: Performed By: #### T 7, LIPA, TSH, AMADOU, CMP #### [facility] [address] [place] [address] Dr. Krystle Heaton Glucose [Mass/Vol] 115 mg/dL Critically high 74-106 [facility] Comment on above: Performed By: #### T 7, LIPA, TSH, AMADOU, CMP #### [facility] [address] [place] [address] Dr. Krystle Heaton Potassium [Moles/Vol] 3.7 mmol/L Normal 3.4-5.0 [facility] Comment on above: Performed By: #### T 7, LIPA, TSH, AMADOU, CMP #### [facility] [address] [place] [address] Dr. Krystle Heaton Protein [Mass/Vol] 7.2 g/dL Normal 6.1-8.2 [facility] Comment on above: Performed By: #### T 7, LIPA, TSH, AMADOU, CMP #### [facility] [address] [place] [address] Dr. Krystle Heaton Sodium [Moles/Vol] 138 mmol/L Normal 137-145 [facility] Comment on above: Performed By: #### T 7, LIPA, TSH, AMADOU, CMP #### [facility] [address] [place] [address] Dr. Krystle Heaton Urea nitrogen [Mass/Vol] 10.0 mg/dL Normal 9.0-20.0 [facility] Comment on above: Performed By: #### T 7, LIPA, TSH, AMADOU, CMP #### [facility] [address] [place] [address] Dr. Krystle Heaton Urea nitrogen/Creatinine [Mass ratio] 9.3 mg/mg Normal [facility] Comment on above: Performed By: #### T 7, LIPA, TSH, AMADOU, CMP #### [facility] [address] [place] [address] Dr. Krystle Heaton TSHon 03-17-2021 TSH 1.904 uIU/mL Normal 0.470-4.680 [facility] Comment on above: Performed By: #### T 7, LIPA, TSH, AMADOU, CMP #### [facility] [address] [place] [address] Dr. Krystle Heaton TSH RANGE SEE BELOW Normal [facility] Comment on above: Result Comment: <0.3 4 UIU/ml HYPERTHYROID 0.34-5.60 UIU/ml EUTHYROID >5.60 UIU/ml HYPOTHYROID Performed By: #### T 7, LIPA, TSH, AMADOU, CMP #### [facility] [address] [place] [address] Dr. Krystle Heaton CBC AUTO DIFFon 03-08-2021 BASO # 0.0 103/ul Normal 0.0-0.1 [facility] Comment on above: Performed By: #### T 7, LIPA, TSH, AMADOU, CMP #### [facility] [address] [place] [address] Dr. Krystle Heaton Basophils/100 WBC (Bld) 0.8 % Normal 0.2-2.0 [facility] Comment on above: Performed By: #### T 7, LIPA, TSH, AMADOU, CMP #### [facility] [address] [place] [address] Dr. Krystle Heaton EO # 0.1 103/ul Normal 0.0-0.7 [facility] Comment on above: Performed By: #### T 7, LIPA, TSH, AMADOU, CMP #### [facility] [address] [place] [address] Dr. Krystle Heaton Eosinophils/100 WBC (Bld) 1.5 % Normal 0.9-7.0 [facility] Comment on above: Performed By: #### T 7, LIPA, TSH, AMADOU, CMP #### [facility] [address] [place] [address] Dr. Krystle Heaton Erythrocyte distribution width (RBC) [Ratio] 12.2 % Normal 11.0-15.0 [facility] Comment on above: Performed By: #### T 7, LIPA, TSH, AMADOU, CMP #### [facility] [address] [place] [address] Dr. Krystle Heaton Hematocrit (Bld) [Volume fraction] 45.5 % Normal 42.0-54.0 [facility] Comment on above: Performed By: #### T 7, LIPA, TSH, AMADOU, CMP #### [facility] [address] [place] [address] Dr. Krystle Heaton Hemoglobin (Bld) [Mass/Vol] 15.9 g/dL Normal 14.0-18.0 [facility] Comment on above: Performed By: #### T 7, LIPA, TSH, AMADOU, CMP #### [facility] [address] [place] [address] Dr. Krystle Heaton IG # 0.01 10e3/ul Normal 0.00-0.03 [facility] Comment on above: Performed By: #### T 7, LIPA, TSH, AMADOU, CMP #### [facility] [address] [place] [address] Dr. Krystle Heaton IG % 0.2 % Normal 0.0-0.5 [facility] Comment on above: Performed By: #### T 7, LIPA, TSH, AMADOU, CMP #### [facility] [address] [place] [address] Dr. Krystle Heaton LYMPH # 1.8 103/ul Normal 1.2-3.8 [facility] Comment on above: Performed By: #### T 7, LIPA, TSH, AMADOU, CMP #### [facility] [address] [place] [address] Dr. Krystle Heaton Lymphocytes/100 WBC (Bld) 37.8 % Normal 20.5-60.0 [facility] Comment on above: Performed By: #### T 7, LIPA, TSH, AMADOU, CMP #### [facility] [address] [place] [address] Dr. Krystle Heaton MANUAL DIFF REQ NO Normal [facility] Comment on above: Performed By: #### T 7, LIPA, TSH, AMADOU, CMP #### [facility] [address] [place] [address] Dr. Krystle Heaton MCH (RBC) [Entitic mass] 36.4 pg Critically high 25.9-34.0 [facility] Comment on above: Performed By: #### T 7, LIPA, TSH, AMADOU, CMP #### [facility] [address] [place] [address] Dr. Krystle Heaton MCHC (RBC) [Mass/Vol] 34.9 g/dL Normal 29.9-35.2 [facility] Comment on above: Performed By: #### T 7, LIPA, TSH, AMADOU, CMP #### [facility] [address] [place] [address] Dr. Krystle Heaton MCV (RBC) [Entitic vol] 104.1 fL Critically high 80.0-94.0 [facility] Comment on above: Performed By: #### T 7, LIPA, TSH, AMADOU, CMP #### [facility] [address] [place] [address] Dr. Krystle Heaton MONO # 0.4 103/ul Normal 0.3-0.8 [facility] Comment on above: Performed By: #### T 7, LIPA, TSH, AMADOU, CMP #### [facility] [address] [place] [address] Dr. Krystle Heaton Monocytes/100 WBC (Bld) 8.3 % Normal 1.7-12.0 [facility] Comment on above: Performed By: #### T 7, LIPA, TSH, AMADOU, CMP #### [facility] [address] [place] [address] Dr. Krystle Heaton NEUT # 2.4 103/ul Normal 1.4-6.5 [facility] Comment on above: Performed By: #### T 7, LIPA, TSH, AMADUO, CMP #### [facility] [address] [place] [address] Dr. Krystle Heaton Neutrophils/100 WBC (Bld) 51.4 % Normal 43.0-75.0 [facility] Comment on above: Performed By: #### T 7, LIPA, TSH, AMADOU, CMP #### [facility] [address] [place] [address] Dr. Krystle Heaton Platelet mean volume (Bld) [Entitic vol] 10.8 fL Normal 9.5-13.5 [facility] Comment on above: Performed By: #### T 7, LIPA, TSH, AMADOU, CMP #### [facility] [address] [place] [address] Dr. Krystle Heaton PLT 175 103/ul Normal 150-450 [facility] Comment on above: Performed By: #### T 7, LIPA, TSH, AMADOU, CMP #### [facility] [address] [place] [address] Dr. Krystle Heaton RBC 4.37 106/ul Critically low 4.70-6.10 [facility] Comment on above: Performed By: #### T 7, LIPA, TSH, AMADOU, CMP #### [facility] [address] [place] [address] Dr. Krystle Heaton WBC 4.7 103/ul Normal 4.0-11.0 [facility] Comment on above: Performed By: #### T 7, LIPA, TSH, AMADOU, CMP #### [facility] [address] [place] [address] Dr. Krystle Heaton FERRITINon 03-08-2021 Ferritin [Mass/Vol] ng/mL Critically high 17.9-464.0 [facility] Comment on above: Performed By: #### T 7, LIPA, TSH, AMADOU, CMP #### [facility] [address] [place] [address] Dr. Krystle Heaton FREE T4on 03-08-2021 Free T4 [Mass/Vol] 0.73 ng/dL Critically low 0.78-2.19 [facility] Comment on above: Performed By: #### T 7, LIPA, TSH, AMADOU, CMP #### [facility] [address] [place] [address] Dr. Krystle Heaton IRON AND TIBCon 03-08-2021 % SATURATION 102.2 % Normal [facility] Comment on above: Performed By: #### T 7, LIPA, TSH, AMADOU, CMP #### [facility] [address] [place] [address] Dr. Krystle Heaton Iron [Mass/Vol] 279.0 ug/dL Critically high 49.0-181.0 [facility] Comment on above: Performed By: #### T 7, LIPA, TSH, AMADOU, CMP #### [facility] [address] [place] [address] Dr. Krystle Heaton TIBC DIRECT 273.0 ug/dL Normal 261.0-497.0 [facility] Comment on above: Performed By: #### T 7, LIPA, TSH, AMADOU, CMP #### [facility] [address] [place] [address] Dr. Krystle Heaton PROF 14(COMP METB)on 021 Albumin [Mass/Vol] 3.6 g/dL Normal 3.5-5.0 [facility] Comment on above: Performed By: #### T 7, LIPA, TSH, AMADOU, CMP #### [facility] [address] [place] [address] Dr. Krystle Heaton Albumin/Globulin [Mass ratio] 1.0 {ratio} Normal [facility] Comment on above: Performed By: #### T 7, LIPA, TSH, AMADOU, CMP #### [facility] [address] [place] [address] Dr. Krystle Heaton ALP [Catalytic activity/Vol] 68 U/L Normal 38-126 [facility] Comment on above: Performed By: #### T 7, LIPA, TSH, AMADOU, CMP #### [facility] [address] [place] [address] Dr. Krystle Heaton ALT [Catalytic activity/Vol] 58 U/L Normal 21-72 [facility] Comment on above: Performed By: #### T 7, LIPA, TSH, AMADOU, CMP #### [facility] [address] [place] [address] Dr. Krystle Heaton Anion gap [Moles/Vol] 15.5 mmol/L Normal [facility] Comment on above: Performed By: #### T 7, LIPA, TSH, AMADOU, CMP #### [facility] [address] [address] [address] Krystle Heaton AST [Catalytic activity/Vol] 56 U/L Normal 17-59 [facility] Comment on above: Performed By: #### T 7, LIPA, TSH, AMADOU, CMP #### [facility] [address] [address] [address] Krystle Heaton Bilirubin [Mass/Vol] 0.7 mg/dL Normal 0.2-1.3 [facility] Comment on above: Performed By: #### T 7, LIPA, TSH, AMADOU, CMP #### [facility] [address] [place] [address] Dr. Krystle Heaton Calcium [Mass/Vol] 8.9 mg/dL Normal 8.4-10.2 [facility] Comment on above: Performed By: #### T 7, LIPA, TSH, AMADOU, CMP #### [facility] [address] [address] [address] Krystle Heaton Chloride [Moles/Vol] 100 mmol/L Normal 98-107 [facility] Comment on above: Performed By: #### T 7, LIPA, TSH, AMADOU, CMP #### [facility] [address] [address] [address] Krystle Heaton CO2 [Moles/Vol] 26.6 mmol/L Normal 22.0-30.0 [facility] Comment on above: Performed By: #### T 7, LIPA, TSH, AMADOU, CMP #### [facility] [address] [address] [address] Krystle Heaton Creatinine [Mass/Vol] 1.12 mg/dL Normal 0.66-1.25 [facility] Comment on above: Performed By: #### T 7, LIPA, TSH, AMADOU, CMP #### [facility] [address] [address] [address] Krystle Heaton EGFR-AF CHINESE >60 Normal >=60 [facility] Comment on above: Performed By: #### T 7, LIPA, TSH, AMADOU, CMP #### [facility] [address] [place] [address] Dr. Krystle Heaton EGFR-NON AF CHINESE >60 Normal >=60 [facility] Comment on above: Performed By: #### T 7, LIPA, TSH, AMADOU, CMP #### [facility] [address] [place] [address] Dr. Krystle Heaton Globulin (S) [Mass/Vol] 3.7 g/dL Normal [facility] Comment on above: Performed By: #### T 7, LIPA, TSH, AMADOU, CMP #### [facility] [address] [place] [address] Dr. Krystle Heaton Glucose [Mass/Vol] 101 mg/dL Normal 74-106 [facility] Comment on above: Performed By: #### T 7, LIPA, TSH, AMADOU, CMP #### [facility] [address] [place] [address] Dr. Krystle Heaton Potassium [Moles/Vol] 4.1 mmol/L Normal 3.4-5.0 [facility] Comment on above: Performed By: #### T 7, LIPA, TSH, AMADOU, CMP #### [facility] [address] [place] [address] Dr. Krystle Heaton Protein [Mass/Vol] 7.3 g/dL Normal 6.1-8.2 [facility] Comment on above: Performed By: #### T 7, LIPA, TSH, AMADOU, CMP #### [facility] [facility] [address] [place] [address] Dr. Krystle Heaton Sodium [Moles/Vol] 138 mmol/L Normal 137-145 [facility] Comment on above: Performed By: #### T 7, LIPA, TSH, AMADOU, CMP #### [facility] [address] [place] [address] Dr. Krystle Heaton Urea nitrogen [Mass/Vol] 17.0 mg/dL Normal 9.0-20.0 [facility] Comment on above: Performed By: #### T 7, LIPA, TSH, AMADOU, CMP #### [facility] [address] [place] [address] Dr. Krystle Heaton Urea nitrogen/Creatinine [Mass ratio] 15.2 mg/mg Normal [facility] Comment on above: Performed By: #### T 7, LIPA, TSH, AMADOU, CMP #### [facility] [address] [place] [address] Dr. Krystle Heaton TSHon 03-08-2021 TSH 1.781 uIU/mL Normal 0.470-4.680 [facility] Comment on above: Performed By: #### T 7, LIPA, TSH, AMADOU, CMP #### [facility] [address] [place] [address] Dr. Krystle Heaton TSH RANGE SEE BELOW Normal [facility] Comment on above: Result Comment: <0.3 4 UIU/ml HYPERTHYROID 0.34-5.60 UIU/ml EUTHYROID >5.60 UIU/ml HYPOTHYROID Performed By: #### T 7, LIPA, TSH, AMADOU, CMP #### [facility] [address] [place] [address] Dr. Krystle Heaton FERRITINon 02-03-2021 Ferritin [Mass/Vol] ng/mL Critically high 17.9-464.0 [facility] Comment on above: Performed By: #### C BC #### [facility] [address] [place] [address] Billy Devlin [facility]on SARS-CoV-2 (COVID-19) RNA JIMBO+probe Ql (Unsp spec) Not detected Normal NOT DETECTED [facility] Comment on above: Result Comment: This test is not yet approved or cleared by the [place] FDA. When there are no FDA-approved or cleared tests available, and other criteria are met, FDA can make tests available under an emergency access mechanism called an Emergency Use Authorization (EUA). The EUA for this test is supported by the [place] of Health and Human Service's (HHS's) declaration [...] T 7, LIPA, TSH, AMADOU, CMP #### [facility] [address] [place] [address] Dr. Krystle Heaton CBC AUTO DIFFon 01-06-2021 BASO # 0.0 103/ul Normal 0.0-0.1 [facility] Comment on above: Performed By: #### T 7, LIPA, TSH, AMADOU, CMP #### [facility] [address] [place] [address] Dr. Krystle Heaton Basophils/100 WBC (Bld) 1.0 % Normal 0.2-2.0 [facility] Comment on above: Performed By: #### T 7, LIPA, TSH, AMADOU, CMP #### [facility] [address] [place] [address] Dr. Krystle Heaton EO # 0.1 103/ul Normal 0.0-0.7 [facility] Comment on above: Performed By: #### T 7, LIPA, TSH, AMADOU, CMP #### [facility] [address] [place] [address] Dr. Krystle Heaton Eosinophils/100 WBC (Bld) 2.5 % Normal 0.9-7.0 [facility] Comment on above: Performed By: #### T 7, LIPA, TSH, AMADOU, CMP #### [facility] [address] [place] [address] Dr. Krystle Heaton Erythrocyte distribution width (RBC) [Ratio] 13.7 % Normal 11.0-15.0 [facility] Comment on above: Performed By: #### T 7, LIPA, TSH, AMADOU, CMP #### [facility] [address] [place] [address] Dr. Krystle Heaton Hematocrit (Bld) [Volume fraction] 44.1 % Normal 42.0-54.0 [facility] Comment on above: Performed By: #### T 7, LIPA, TSH, AMADOU, CMP #### [facility] [address] [place] [address] Dr. Krystle Heaton Hemoglobin (Bld) [Mass/Vol] 15.0 g/dL Normal 14.0-18.0 [facility] Comment on above: Performed By: #### T 7, LIPA, TSH, AMADOU, CMP #### [facility] [address] [place] [address] Dr. Krystle Heaton IG # 0.02 10e3/ul Normal 0.00-0.03 [facility] Comment on above: Performed By: #### T 7, LIPA, TSH, AMADOU, CMP #### [facility] [address] [place] [address] Dr. Krystle Heaton IG % 0.5 % Normal 0.0-0.5 [facility] Comment on above: Performed By: #### T 7, LIPA, TSH, AMADOU, CMP #### [facility] [address] [place] [address] Dr. Krystle Heaton LYMPH # 1.6 103/ul Normal 1.2-3.8 [facility] Comment on above: Performed By: #### T 7, LIPA, TSH, AMADOU, CMP #### [facility] [address] [place] [address] Dr. Krystle Heaton Lymphocytes/100 WBC (Bld) 40.7 % Normal 20.5-60.0 [facility] Comment on above: Performed By: #### T 7, LIPA, TSH, AMADOU, CMP #### [facility] [address] [place] [address] Dr. Krystle Heaton MANUAL DIFF REQ NO Normal [facility] Comment on above: Performed By: #### T 7, LIPA, TSH, AAMDOU, CMP #### [facility] [address] [place] [address] Dr. Krystle Heaton MCH (RBC) [Entitic mass] 36.2 pg Critically high 25.9-34.0 [facility] Comment on above: Performed By: #### T 7, LIPA, TSH, AMADOU, CMP #### [facility] [address] [place] [address] Dr. Krystle Heaton MCHC (RBC) [Mass/Vol] 34.0 g/dL Normal 29.9-35.2 [facility] Comment on above: Performed By: #### T 7, LIPA, TSH, AMADOU, CMP #### [facility] [address] [place] [address] Dr. Krystle Heaton MCV (RBC) [Entitic vol] 106.5 fL Critically high 80.0-94.0 [facility] Comment on above: Performed By: #### T 7, LIPA, TSH, AMADOU, CMP #### [facility] [address] [place] [address] Dr. Krystle Heaton MONO # 0.3 103/ul Normal 0.3-0.8 [facility] Comment on above: Performed By: #### T 7, LIPA, TSH, AMADOU, CMP #### [facility] [address] [place] [address] Dr. Krystle Heaton Monocytes/100 WBC (Bld) 8.1 % Normal 1.7-12.0 [facility] Comment on above: Performed By: #### T 7, LIPA, TSH, AMADOU, CMP #### [facility] [address] [place] [address] Dr. Krystle Heaton NEUT # 1.9 103/ul Normal 1.4-6.5 [facility] Comment on above: Performed By: #### T 7, LIPA, TSH, AMADOU, CMP #### [facility] [address] [place] [address] Dr. Krystle Heaton Neutrophils/100 WBC (Bld) 47.2 % Normal 43.0-75.0 [facility] Comment on above: Performed By: #### T 7, LIPA, TSH, AMADOU, CMP #### [facility] [address] [place] [address] Dr. Krystle Heaton Platelet mean volume (Bld) [Entitic vol] 11.6 fL Normal 9.5-13.5 [facility] Comment on above: Performed By: #### T 7, LIPA, TSH, AMADOU, CMP #### [facility] [address] [place] [address] Dr. Krystle Heaton PLT 184 103/ul Normal 150-450 [facility] Comment on above: Performed By: #### T 7, LIPA, TSH, AMADOU, CMP #### [facility] [address] [place] [address] Dr. Krystle Heaton RBC 4.14 106/ul Critically low 4.70-6.10 [facility] Comment on above: Performed By: #### T 7, LIPA, TSH, AMADOU, CMP #### [facility] [address] [place] [address] Dr. Krystle Heaton WBC 4.0 103/ul Normal 4.0-11.0 [facility] Comment on above: Performed By: #### T 7, LIPA, TSH, AMADOU, CMP #### [facility] [address] [place] [address] Dr. Krystle Heaton FERRITINon 01-06-2021 Ferritin [Mass/Vol] ng/mL Critically high 17.9-464.0 [facility] Comment on above: Performed By: #### H BSANS #### [facility] [address] [place] [address] Billy Devlin CBC AUTO DIFFon 12-09-2020 BASO # 0.0 103/ul Normal 0.0-0.1 [facility] Comment on above: Performed By: #### T 7, LIPA, TSH, AMADOU, CMP #### [facility] [address] [place] [address] Dr. Krystle Heaton Basophils/100 WBC (Bld) 0.6 % Normal 0.2-2.0 [facility] Comment on above: Performed By: #### T 7, LIPA, TSH, AMADOU, CMP #### [facility] [address] [place] [address] Dr. Krystle Heaton EO # 0.1 103/ul Normal 0.0-0.7 [facility] Comment on above: Performed By: #### T 7, LIPA, TSH, AMADOU, CMP #### [facility] [address] [place] [address] Dr. Krystle Heaton Eosinophils/100 WBC (Bld) 2.6 % Normal 0.9-7.0 [facility] Comment on above: Performed By: #### T 7, LIPA, TSH, AMADOU, CMP #### [facility] [address] [place] [address] Dr. Krystle Heaton Erythrocyte distribution width (RBC) [Ratio] 13.0 % Normal 11.0-15.0 [facility] Comment on above: Performed By: #### T 7, LIPA, TSH, AMADOU, CMP #### [facility] [address] [place] [address] Dr. Krystle Heaton Hematocrit (Bld) [Volume fraction] 46.2 % Normal 42.0-54.0 [facility] Comment on above: Performed By: #### T 7, LIPA, TSH, AMADOU, CMP #### [facility] [address] [place] [address] Dr. Krystle Heaton Hemoglobin (Bld) [Mass/Vol] 16.0 g/dL Normal 14.0-18.0 [facility] Comment on above: Performed By: #### T 7, LIPA, TSH, AMADOU, CMP #### [facility] [address] [place] [address] Dr. Krystle Heaton IG # 0.01 10e3/ul Normal 0.00-0.03 [facility] Comment on above: Performed By: #### T 7, LIPA, TSH, AMADOU, CMP #### [facility] [address] [place] [address] Dr. Krystle Heaton IG % 0.2 % Normal 0.0-0.5 [facility] Comment on above: Performed By: #### T 7, LIPA, TSH, AMADOU, CMP #### [facility] [address] [place] [address] Dr. Krystle Heaton LYMPH # 1.3 103/ul Normal 1.2-3.8 [facility] Comment on above: Performed By: #### T 7, LIPA, TSH, AMADOU, CMP #### [facility] [address] [place] [address] Dr. Krystle Heaton Lymphocytes/100 WBC (Bld) 27.8 % Normal 20.5-60.0 [facility] Comment on above: Performed By: #### T 7, LIPA, TSH, AMADOU, CMP #### [facility] [address] [place] [address] Dr. Krystle Heaton MANUAL DIFF REQ NO Normal [facility] Comment on above: Performed By: #### T 7, LIPA, TSH, AMADOU, CMP #### [facility] [address] [place] [address] Dr. Krystle Heaton MCH (RBC) [Entitic mass] 34.9 pg Critically high 25.9-34.0 [facility] Comment on above: Performed By: #### T 7, LIPA, TSH, AMADOU, CMP #### [facility] [address] [place] [address] Dr. Krystle Heaton MCHC (RBC) [Mass/Vol] 34.6 g/dL Normal 29.9-35.2 [facility] Comment on above: Performed By: #### T 7, LIPA, TSH, AMADOU, CMP #### [facility] [address] [place] [address] Dr. Krystle Heaton MCV (RBC) [Entitic vol] 100.9 fL Critically high 80.0-94.0 [facility] Comment on above: Performed By: #### T 7, LIPA, TSH, AMADOU, CMP #### [facility] [address] [place] [address] Dr. Krystle Heaton MONO # 0.3 103/ul Normal 0.3-0.8 [facility] Comment on above: Performed By: #### T 7, LIPA, TSH, AMADOU, CMP #### [facility] [address] [place] [address] Dr. Krystle Heaton Monocytes/100 WBC (Bld) 6.6 % Normal 1.7-12.0 [facility] Comment on above: Performed By: #### T 7, LIPA, TSH, AMADOU, CMP #### [facility] [address] [address] [address] Krystle Heaton NEUT # 2.9 103/ul Normal 1.4-6.5 [facility] Comment on above: Performed By: #### T 7, LIPA, TSH, AMADOU, CMP #### [facility] [address] [place] [address] Dr. Krystle Heaton Neutrophils/100 WBC (Bld) 62.2 % Normal 43.0-75.0 [facility] Comment on above: Performed By: #### T 7, LIPA, TSH, AMADOU, CMP #### [facility] [address] [place] [address] Dr. Krystle Heaton Platelet mean volume (Bld) [Entitic vol] 11.0 fL Normal 9.5-13.5 [facility] Comment on above: Performed By: #### T 7, LIPA, TSH, AMADOU, CMP #### [facility] [address] [place] [address] Dr. Krystle Heaton PLT 171 103/ul Normal 150-450 [facility] Comment on above: Performed By: #### T 7, LIPA, TSH, AMADOU, CMP #### [facility] [address] [place] [address] Dr. Krystle Heaton RBC 4.58 106/ul Critically low 4.70-6.10 [facility] Comment on above: Performed By: #### T 7, LIPA, TSH, AMADOU, CMP #### [facility] [address] [place] [address] Dr. Krystle Heaton WBC 4.7 103/ul Normal 4.0-11.0 [facility] Comment on above: Performed By: #### T 7, LIPA, TSH, AMADOU, CMP #### [facility] [address] [place] [address] Dr. Krystle Heaton PROF 14(COMP METB)on 021 Albumin [Mass/Vol] 3.9 g/dL Normal 3.5-5.0 [facility] Comment on above: Performed By: #### T 7, LIPA, TSH, AMADOU, CMP #### [facility] [address] [place] [address] Dr. Krystle Heaton Albumin/Globulin [Mass ratio] 1.1 {ratio} Normal [facility] Comment on above: Performed By: #### T 7, LIPA, TSH, AMADOU, CMP #### [facility] [address] [place] [address] Dr. Krystle Heaton ALP [Catalytic activity/Vol] 86 U/L Normal 38-126 [facility] Comment on above: Performed By: #### T 7, LIPA, TSH, AMADOU, CMP #### [facility] [address] [place] [address] Dr. Krystle Heaton ALT [Catalytic activity/Vol] 87 U/L Critically high 21-72 [facility] Comment on above: Performed By: #### T 7, LIPA, TSH, AMADOU, CMP #### [facility] [address] [place] [address] Dr. Krystle Heaton Anion gap [Moles/Vol] 15.7 mmol/L Normal [facility] Comment on above: Performed By: #### T 7, LIPA, TSH, AMADOU, CMP #### [facility] [address] [place] [address] Dr. Krystle Heaton AST [Catalytic activity/Vol] 70 U/L Critically high 17-59 [facility] Comment on above: Performed By: #### T 7, LIPA, TSH, AMADOU, CMP #### [facility] [address] [place] [address] Dr. Krystle Heaton Bilirubin [Mass/Vol] 1.4 mg/dL Critically high 0.2-1.3 [facility] Comment on above: Performed By: #### T 7, LIPA, TSH, AMADOU, CMP #### [facility] [address] [place] [address] Dr. Krystle Heaton Calcium [Mass/Vol] 9.3 mg/dL Normal 8.4-10.2 [facility] Comment on above: Performed By: #### T 7, LIPA, TSH, AMADOU, CMP #### [facility] [address] [place] [address] Dr. Krystle Heaton Chloride [Moles/Vol] 102 mmol/L Normal 98-107 [facility] Comment on above: Performed By: #### T 7, LIPA, TSH, AMADOU, CMP #### [facility] [address] [place] [address] Dr. Krystle Heaton CO2 [Moles/Vol] 26.5 mmol/L Normal 22.0-30.0 [facility] Comment on above: Performed By: #### T 7, LIPA, TSH, AMADOU, CMP #### [facility] [address] [place] [address] Dr. Krystle Heaton Creatinine [Mass/Vol] 1.27 mg/dL Critically high 0.66-1.25 [facility] Comment on above: Performed By: #### T 7, LIPA, TSH, AMADOU, CMP #### [facility] [address] [place] [address] Dr. Krystle Heaton EGFR-AF CHINESE >60 Normal >=60 [facility] Comment on above: Performed By: #### T 7, LIPA, TSH, AMADOU, CMP #### [facility] [address] [place] [address] Dr. Krystle Heaton EGFR-NON AF CHINESE =60 Normal >=60 [facility] Comment on above: Performed By: #### T 7, LIPA, TSH, AMADOU, CMP #### [facility] [address] [place] [address] Dr. Krystle Heaton Globulin (S) [Mass/Vol] 3.5 g/dL Normal [facility] Comment on above: Performed By: #### T 7, LIPA, TSH, AMADOU, CMP #### [facility] [address] [place] [address] Dr. Krystle Heaton Glucose [Mass/Vol] 120 mg/dL Critically high 74-106 [facility] Comment on above: Performed By: #### T 7, LIPA, TSH, AMADOU, CMP #### [facility] [address] [place] [address] Dr. Krystle Heaton Potassium [Moles/Vol] 4.2 mmol/L Normal 3.4-5.0 [facility] Comment on above: Performed By: #### T 7, LIPA, TSH, AMADOU, CMP #### [facility] [address] [address] [address] Krystle Heaton Protein [Mass/Vol] 7.4 g/dL Normal 6.1-8.2 [facility] Comment on above: Performed By: #### T 7, LIPA, TSH, AMADOU, CMP #### [facility] [address] [address] [address] Krystle Heaton Sodium [Moles/Vol] 140 mmol/L Normal 137-145 [facility] Comment on above: Performed By: #### T 7, LIPA, TSH, AMADOU, CMP #### [facility] [address] [place] [address] Dr. Krystle Heaton Urea nitrogen [Mass/Vol] 12.0 mg/dL Normal 9.0-20.0 [facility] Comment on above: Performed By: #### T 7, LIPA, TSH, AMADOU, CMP #### [facility] [address] [place] [address] Dr. Krystle Heaton Urea nitrogen/Creatinine [Mass ratio] 9.4 mg/mg Normal [facility] Comment on above: Performed By: #### T 7, LIPA, TSH, AMADOU, CMP #### [facility] [address] [place] [address] Dr. Krystle Heaton PROTIMEon 12-09-2020 INR Coag (PPP) [Relative time] 0.96 {INR} Normal [facility] Comment on above: Performed By: #### H BSANS #### [facility] [address] [place] [address] Billy Devlin INR GUIDELINES SEE BELOW Normal [facility] Comment on above: Result Comment: MOUNA RED INR: 2.0 - 3.0 CONDITIONS NOT LISTED BELOW 2.5 - 3.5 FOR PROSTHETIC HEART VALVE REPLACEMENT 2.5 - 3.5 RECURRENT THROMBOSIS Performed By: #### H BSANS #### [facility] [address] [place], [place] [address] Billy Devlin PT Coag (PPP) [Time] 10.5 s Normal 9.0-11.6 [facility] Comment on above: Performed By: #### H ALEXANDER #### [facility] [address] [place], [place] [address] Billy Devlin US SINGLE QUAD RT UPPERon [...] KRISTEN GODINEZ Date: 2020-12-09 10:23 Normal [facility] Vital Signs Date Time Vital Sign Value Performing Clinician Faci lity 07-14-2024 09:54-0400 Body height 177.8 cm Vivienne Velázquez MD Work Phone: [facility] 07-14-2024 09:54-0400 Body mass index (BMI) [Ratio] 27.26 kg/m2 Vivienne Velázquez MD Work Phone: [facility] 07-14-2024 09:54-0400 Body weight 86.18 kg Vivienne Velázquez MD Work Phone: [facility] 07-14-2024 09:54-0400 Diastolic blood pressure 64 mm[Hg] Vivienne Velázquez MD Work Phone: [facility] 07-14-2024 09:54-0400 Systolic blood pressure 104 mm[Hg] Vivienne Velázquez MD Work Phone: [facility] Healthcare Encounters Encounter Date Encounter Type Care Provider Facility Start: 04-26-2025 End: 04-26-2025 ambulatory David Quevedo Facility:[facility] Start: 04-19-2025 ambulatory Gideon Mace Facility: [facility] Start: 03-17-2025 End: 03-17-2025 ambulatory None Provider Facility:[facility] Start: 03-10-2025 End: 03-10-2025 ambulatory None Provider Facility:[facility] Start: 02-10-2025 End: 02-10-2025 ambulatory [facility] Facility:[facility] Start: 12-28-2024 End: 12-28-2024 ambulatory [facility] Facility:[facility] Start: 07-14-2024 End: 07-14-2024 Bambomustapha Velázquez MD Work Phone: [facility] Start: 07-14-2024 End: 07-14-2024 Malina Velázquez MD Work Phone: [facility] Start: 07-14-2024 End: 07-14-2024 Telephone encounter Vivienne Velázquez MD Work Phone: [facility] Start: 07-14-2024 End: 07-14-2024 Postop follow up visit related to original px Vivienne Velázquez MD Work Phone: [facility] Comment on above: ETD (Eustachian tube dysfunction), right (Primary Dx) Start: 07-14-2024 End: 07-14-2024 ambulatory VIVIENNE H TIMMIS Not Available Start: 05-26-2024 End: 05-26-2024 ambulatory VIVIENNE H TIMMIS Not Available Start: 05-24-2024 End: 05-24-2024 ambulatory DARIEN WARE Not Available Start: 04-03-2022 End: 04-03-2022 ambulatory Magaly Sewell Facility:[facility] Start: 11-26-2021 End: 11-27-[address] GENEVIEVE TONG Facility:[facility] Start: 11-15-2021 End: 11-15-[address] GENEVIEVE TONG Facility:[facility] Start: 10-08-2021 End: 10-09-[address] AMADOU BROWN Facility:[facility] Start: 09-10-2021 End: 09-11-[address] AMADOU BROWN Facility:[facility] Start: 08-15-2021 End: 08-16-[address] AMADOU BROWN Facility:[facility] Start: 08-13-2021 Encounter for preprocedural laboratory examination DR DOCTOR PALUMBO [facility] Start: 08-10-2021 AUDIT No PCP [...] ne w 45 minutes No PCP None [facility] [place] [facility] Work Phone: Start: 04-06-2021 [...] No PCP None [facility] [place] [facility] Work Phone: Procedures Date Procedure Procedure Detail Performing Clinician Biopsy of liver No PCP None Repair of musculoten dinous cuff of shoulder No PCP None Plan of Treatment Date Care Activity Detail Author Start: 08-04-2024 End: 08-04-2024 Patient encounter procedure 08/04/2024 2:30 PM EDT Office Visit [facility] [address] [facility] [address] [place] [address] Vivienne Velázquez MD [address] [facility] [address] [place] [address] [facility] Start: 07-28-2024 End: 07-28-2024 Patient encounter procedure 07/28/2024 10:30 AM EDT Office Visit [facility] [address] [facility] [address] [place] [address] Vivienne Velázquez MD [address] [facility] [address] [place] [address] [facility] Start: 07-14-2024 End: 07-14-2024 Patient encounter procedure 07/14/2024 9:50 AM EDT Office Visit [facility] [address] [place] [id number] Vivienne Velázquez MD [address] [place] [address] Arrived [facility] Comment on above: Arrived Start: 07-11-2024 Influenza vaccination Influenza Vacc ine (#1) [facility] Start: 1970 Screening for malign ant neoplasm of colon [facility] Immunizations Immunization Date Immunization Notes Care Provider Fa cility 09-03-2023 influenza virus vacc ine, unspecified formulation Vivienne Velázquez MD Work Phone: [facility] Payers Date Payer Category Payer Medicare [id number] 2023 Unknown 2023 Unknown [id number] 1970 Unknown [id number] 2.16.84 0.1.470551.3.579.2.593 1969 Unknown [id number] 2.16.84 0.1.959912.3.579.2.593 1969 Unknown [id number] 2.16.84 0.1.488939.3.579.2.593 1969 Unknown [id number] 2.16.84 0.1.491884.3.579.2.593 1969 Unknown [id number] 2.16.84 0.1.242563.3.579.2.593 1969 Unknown [id number] 2.16.84 0.1.161625.3.579.2.593 1969 Unknown [id number] 2.16.84 0.1.323431.3.579.2.593 1969 Unknown [id number] 2.16.84 0.1.175816.3.579.2.593 1969 Unknown [id number] 2.16.84 0.1.436930.3.579.2.593 1969 Unknown [id number] 2.16.84 0.1.681027.3.579.2.593 1969 Unknown [id number] 2.16.84 0.1.989097.3.579.2.593 1969 Unknown [id number] 2.16.84 0.1.085544.3.579.2.593 1969 Unknown [id number] 2.16.84 0.1.830608.3.579.2.593 1969 Unknown [id number] 2.16.84 0.1.577000.3.579.2.593 1969 Unknown [id number] 2.16.84 0.1.435614.3.579.2.593 1969 Unknown [id number] 2.16.84 0.1.092332.3.579.2.593 1969 Unknown [id number] 2.16.84 0.1.503890.3.579.2.593 1969 Unknown [id number] 2.16.84 0.1.424840.3.579.2.593 1969 Unknown [id number] 2.16.84 0.1.598836.3.579.2.593 1969 Unknown [id number] 2.16.84 0.1.165918.3.579.2.593 1969 Unknown [id number] 2.16.84 0.1.186925.3.579.2.593 1969 Unknown [id number] 2.16.84 0.1.369436.3.579.2.593 1969 Unknown [id number] 2.16.84 0.1.175677.3.579.2.1259 1969 Unknown [id number] 2.16.84 0.1.289408.3.579.2.1259 1969 Unknown [id number] 2.16.84 0.1.485096.3.579.2.1259 1969 Unknown [id number] 2.16.8 40.1.189721.3.579.2.8 1969 Unknown [id number] 2.16.8 [id number] 1970 Unknown [id number] 2.16.8 [id number]. 1970 Unknown [id number] 2.16.8 [id number]. 1969 Unknown [id number] 2.16.8 [id number]. 1969 Unknown [id number] 2.16.8 [id number]. 1969 Unknown [id number] 2.16.8 [id number] 1960 Self-pay [id number] 1960 Self-pay 1960 Unknown [id number] Unknown [id number] 2.16.84 [id number] Unknown [id number] 2.16.84 [id number] Unknown [id number] 2.16.8 [id number] Social History Date Type Detail Facility Start: 05-26-2024 End: 07-14-2024 Former smoker Former smoker [facility] [id number] Work Phone: Start: 1970 Sex Assigned At Male [facility] Start: 05-26-2024 [facility] Work Phone: History of tobacco use Current smoker [facility] History of tobacco use [facility]arette [facility] Start: 05-26-2024 Tobacco use and exposure Smokeless tobacco non-user [facility] Start: 05-26-2024 End: 07-14-2024 Alcoholic beverage intake Ex-drinker (finding) [facility] Start: 05-26-2024 End: 07-14-2024 Tobacco use panel [facility] Start: 1970 Sex assigned at Not on file [facility] Clinical Notes 05-08-2021 to 04-25-2025 Telephone Encounter - Meagan Velázquez - 07/14/2024 3:46 PM EDTTelephone Encounter - Meagan Velázquez - 07/14/2024 3:46 PM EDTTelephone Encounter - Vivienne Velázquez MD - 07/14/2024 3:20 PM EDT Note Date & Type Note Facility 04-25-2025 Note Radiology Sclerotherapy Sclerotherapy is a procedure that is done to make varicose veins and spider veins look better and it helps to relieve aching, swelling, cramping, and pain in the legs. Varicose veins are veins that have become enlarged, bulging, and twisted due to a damaged valve that causes blood to collect (pool) in the veins. Spider veins are small varicose veins. Sclerotherapy is usually done on the legs where varicose and spider veins occur most of the time. Sclerotherapy usually works best for smaller spider and varicose veins. This procedure involves putting a chemical directly into the lining of the vein, causing it to swell and stick together. Over time, the vessel turns into scar tissue that fades from view. You may need more than one treatment to close a vein all the way. The number of veins treated in one session depends on the size and location of the veins, and on your overall medical condition. Tell a health care provider about: ? Any allergies you have. ? All medicines you are taking, including vitamins, herbs, eye drops, creams, and mtam-dis-tuewjmj medicines. ? Any bleeding problems you have. ? Any surgeries you have had. ? Any medical conditions you have. ? Whether you are or may be . What are the risks? Your health care provider will talk with you about risks. These may include: ? Infection. ? Bleeding or blood clots. ? Allergic reactions to medicines or to the chemicals being used, which are called sclerosing agents. ? Larger treated veins becoming lumpy or hard. This may last for several months before getting better. ? Small sores (ulcers) forming at the injection site. ? Red streaking in the groin area or bruising around the injection site. ? Brown lines or spots at the injection site. These usually disappear within 3 to 6 months, but in rare cases they can be permanent. What happens before the procedure? Medicines Ask your health care provider about: ? Changing or stopping your regular medicines. These include any diabetes medicines or blood thinners you take. ? Taking medicines such as aspirin and ibuprofen. These medicines can thin your blood. Do not take them unless your health care provider tells you to. ? Taking zqrx-ohu-judoris medicines, vitamins, herbs, and supplements. Tests ? You may have an ultrasound of the affected area to check for blood clots and to check blood flow. ? In rare cases, you may have an X-ray procedure to check how blood flows through your veins (angiogram). For an angiogram, a dye is injected to highlight your veins on X-rays. General instructions ? Do not use lotions or creams on your legs before the procedure unless your health care provider approves. ? Follow instructions from your health care provider about what you may eat and drink. ? Do not use any products that contain nicotine or tobacco before the procedure. These products include cigarettes, chewing tobacco, and vaping devices, such as e-cigarettes. If you need help quitting, ask your health care provider. ? Ask your health care provider what steps will be taken to help prevent infection. These steps may include: ? Removing hair at the injection site. ? Washing skin with a soap that kills germs. What happens during the procedure? ? The treatment area will be cleaned. ? A small, thin needle is used to inject a chemical (sclerosant) into your varicose or spider veins. The sclerosant will irritate the lining of the vein and cause the vein to close below where the needle was put in. You may feel some stinging, burning, or irritation. ? The injection may be repeated for more than one varicose or spider vein. ? After the procedure, the area around where the needle was put in will be wrapped with elastic bandages. The procedure may vary among health care providers and hospitals. What can I expect after the procedure? ? Your blood pressure, heart rate, breathing rate, and blood oxygen level will be monitored until you leave the hospital or clinic. ? The area around the injection site will be wrapped with elastic bandages. If there is bleeding, the bandages may be changed. ? After the treatment, you will be able to drive yourself home. ? Wear compression stockings as told by your health care provider. These stockings help to prevent blood clots and reduce swelling in your legs. Contact a health care provider if: ? You have more redness, swelling, or pain around any injection sites. ? You have more fluid or blood coming from any injection sites. ? Any injection sites feel warm to the touch. ? You have pus or a bad smell coming from any injection sites. ? You have a fever. Get help right away if: ? You have leg pain that gets worse when you walk. ? You have redness or swelling in your leg that is getting worse. ? You have trouble breathing. ? You have chest pain. These symptoms may be an emergency. Get help right away. Call 911. (more content not included)... [facility] 04-18-2025 Note Procedures Endovenous Ablation, Care After The following information offers guidance on how to care for yourself after your procedure. Your health care provider may also give you more specific instructions. If you have problems or questions, contact your health care provider. What can I expect after the procedure? After the procedure, it is common to have: ? Bruising. ? Tenderness. Follow these instructions at home: Incision care ? Follow instructions from your health care provider about how to take care of your incision. Make sure you: ? Wash your hands with soap and water for at least 20 seconds before and after you change your bandage (dressing). If soap and water are not available, use hand national service officer. ? Change your dressing as told by your health care provider. ? Follow instructions from your health care provider about when you should remove your dressing. ? Check your incision area every day for signs of infection. Check for: ? Redness, swelling, or pain. ? Fluid or blood. ? Warmth. ? Pus or a bad smell. ? Keep the dressing dry until your health care provider says it can be removed. Activity ? Avoid sitting for a long time without moving. Get up to take short walks every 1?2 hours. This is important to improve blood flow. Ask for help if you feel weak or unsteady. ? Rest as told by your health care provider. ? Do exercises as told by your health care provider. ? Return to your normal activities as told by your health care provider. Ask your health care provider what activities are safe for you. Driving ? If you were given a sedative during the procedure, it can affect you for several hours. Do not drive or operate machinery until your health care provider says that it is safe. ? Ask your health care provider if the medicine prescribed to you requires you to avoid driving or using machinery. General instructions ? Raise (elevate) your legs above the level of your heart while you are sitting or lying down. ? Take ipec-gus-yykftbr and prescription medicines only as told by your health care provider. ? Do not take long car trips or travel by air until your health care provider has approved. ? Wear compression stockings as told by your health care provider. These stockings help to prevent blood clots and reduce swelling in your legs. ? Do not use any products that contain nicotine or tobacco. These products include cigarettes, chewing tobacco, and vaping devices, such as e-cigarettes. These can delay incision healing after the procedure. If you need help quitting, ask your health care provider. ? Keep all follow-up visits. This is important. Contact a health care provider if you have: ? A fever. ? More redness, swelling, or pain at the site of your incision. ? Fluid or blood coming from your incision. ? Warmth at the incision area. ? Pus or a bad smell coming from your incision. Get help right away if: ? You notice red streaks coming from the incision. ? You develop nausea or vomiting. ? You have trouble breathing. ? You develop chest pain. Summary ? Follow instructions from your health care provider about how to take care of your incision. ? Avoid sitting for a long time without moving. Get up to take short walks every 1?2 hours. ? Wear compression stockings as told by your health care provider. These stockings help to prevent blood clots and reduce swelling in your legs. ? Contact a health care provider if you have more redness, swelling, or pain at the site of your incision. ? Keep all follow-up visits. This is important. This information is not intended to replace advice given to you by your health care provider. Make sure you discuss any questions you have with your health care provider. Document Revised: 04/04/2022 Document Reviewed: 04/04/2022 [employer] Patient Education ? 2023 [employer]. [facility] 03-14-2025 Note Procedures Endovenous Ablation Endovenous ablation is a procedure that seals off an abnormally enlarged leg vein (varicose vein). This procedure uses heat from radiofrequency waves or a laser to close off the affected vein. This procedure leaves the vein in place, so there is minimal pain and bruising. Closing off the vein can help reduce symptoms by preventing the pooling of blood that causes varicose veins. This procedure may be done if the vein is causing pain, swelling, sores on the skin (ulcers), or skin discoloration. Tell a health care provider about: ? Any allergies you have. ? All medicines you are taking, including vitamins, herbs, eye drops, creams, and xyry-bog-fkovkdu medicines. ? Any problems you or family members have had with anesthetic medicines. ? Any bleeding problems you have. ? Any surgeries you have had. ? Any medical conditions you have or have had. ? Whether you are or may be . What are the risks? Generally, this is a safe procedure. However, problems may occur, including: ? Infection. ? Bleeding. ? Allergic reactions to medicines. ? Damage to nearby structures. ? Numbness or tingling along the leg. This is uncommon, and it is usually temporary. ? Vein swelling. This is usually temporary. ? Blood clots that form in a deep vein of the leg (deep vein thrombosis, or DVT) and can travel to the lungs (pulmonary embolism, or PE). This is very rare. What happens before the procedure? When to stop eating and drinking Follow instructions from your health care provider about what you may eat and drink before your procedure. These may include: ? 8 hours before your procedure ? Stop eating most foods. Do not eat meat, fried foods, or fatty foods. ? Eat only light foods, such as toast or crackers. ? All liquids are okay except energy drinks and alcohol. ? 6 hours before your procedure ? Stop eating. ? Drink only clear liquids, such as water, clear fruit juice, black coffee, plain tea, and sports drinks. ? Do not drink energy drinks or alcohol. ? 2 hours before the procedure ? Stop drinking all liquids. ? You may be allowed to take medicines with small sips of water. If you do not follow your health care provider's instructions, your procedure may be delayed or canceled. Medicines Ask your health care provider about: ? Changing or stopping your regular medicines. This is especially important if you are taking diabetes medicines or blood thinners. ? Taking medicines such as aspirin and ibuprofen. These medicines can thin your blood. Do not take these medicines unless your health care provider tells you to take them. ? Taking fsvd-wsk-svhzrfg medicines, vitamins, herbs, and supplements. General instructions ? You may have blood tests to make sure that your blood can clot normally. ? Do not use any products that contain nicotine or tobacco for at least 4 weeks before the procedure. These products include cigarettes, chewing tobacco, and vaping devices, such as e-cigarettes. If you need help quitting, ask your health care provider. ? Plan to have a responsible adult take you home from the hospital or clinic. ? If you will be going home right after the procedure, plan to have a responsible adult care for you for the time you are told. This is important. ? Ask your health care provider what steps will be taken to help prevent infection. These may include: ? Removing hair at the procedure site. ? Washing skin with a germ-killing soap. What happens during the procedure? ? You will lie on an exam table. ? An IV will be inserted into one of your veins. ? You will be given one or more of the following: ? A medicine to help you relax (sedative). ? A medicine to numb the area (local anesthetic). ? A medicine to make you fall asleep (general anesthetic). ? Your health care provider will use an imaging tool that uses sound waves (ultrasound) to show images of your leg veins and to rosa the skin over the target treatment vein. ? A small incision will be made near the area that will be treated. A thin tube (catheter) will be slipped through the incision and into the vein. ? Your health care provider will inject a solution of salt water and anesthetic agent along the length of the vein to be treated. ? Electrodes or laser fibers will be passed through the catheter and into the vein. ? Radiofrequency or laser energy will be sent through the electrodes or laser fibers to burn the vein. This seals off the vein. ? The electrodes, laser fibers, and catheter will be removed from the vein. ? A bandage (dressing) will be placed over the incision. The procedure may vary among health care providers and hospitals. What happens after the procedure? ? Your blood pressure, heart rate, breathing rate, and blood oxygen level may be monitored until you leave the hospital or clinic. ? You may have to wear compression stockings. These stockings help (more content not included)... [facility] 03-09-2025 Note Procedures Endovenous Ablation, Care After The following information offers guidance on how to care for yourself after your procedure. Your health care provider may also give you more specific instructions. If you have problems or questions, contact your health care provider. What can I expect after the procedure? After the procedure, it is common to have: ? Bruising. ? Tenderness. Follow these instructions at home: Incision care ? Follow instructions from your health care provider about how to take care of your incision. Make sure you: ? Wash your hands with soap and water for at least 20 seconds before and after you change your bandage (dressing). If soap and water are not available, use hand national service officer. ? Change your dressing as told by your health care provider. ? Follow instructions from your health care provider about when you should remove your dressing. ? Check your incision area every day for signs of infection. Check for: ? Redness, swelling, or pain. ? Fluid or blood. ? Warmth. ? Pus or a bad smell. ? Keep the dressing dry until your health care provider says it can be removed. Activity ? Avoid sitting for a long time without moving. Get up to take short walks every 1?2 hours. This is important to improve blood flow. Ask for help if you feel weak or unsteady. ? Rest as told by your health care provider. ? Do exercises as told by your health care provider. ? Return to your normal activities as told by your health care provider. Ask your health care provider what activities are safe for you. Driving ? If you were given a sedative during the procedure, it can affect you for several hours. Do not drive or operate machinery until your health care provider says that it is safe. ? Ask your health care provider if the medicine prescribed to you requires you to avoid driving or using machinery. General instructions ? Raise (elevate) your legs above the level of your heart while you are sitting or lying down. ? Take lfwt-sgf-uuqbhyk and prescription medicines only as told by your health care provider. ? Do not take long car trips or travel by air until your health care provider has approved. ? Wear compression stockings as told by your health care provider. These stockings help to prevent blood clots and reduce swelling in your legs. ? Do not use any products that contain nicotine or tobacco. These products include cigarettes, chewing tobacco, and vaping devices, such as e-cigarettes. These can delay incision healing after the procedure. If you need help quitting, ask your health care provider. ? Keep all follow-up visits. This is important. Contact a health care provider if you have: ? A fever. ? More redness, swelling, or pain at the site of your incision. ? Fluid or blood coming from your incision. ? Warmth at the incision area. ? Pus or a bad smell coming from your incision. Get help right away if: ? You notice red streaks coming from the incision. ? You develop nausea or vomiting. ? You have trouble breathing. ? You develop chest pain. Summary ? Follow instructions from your health care provider about how to take care of your incision. ? Avoid sitting for a long time without moving. Get up to take short walks every 1?2 hours. ? Wear compression stockings as told by your health care provider. These stockings help to prevent blood clots and reduce swelling in your legs. ? Contact a health care provider if you have more redness, swelling, or pain at the site of your incision. ? Keep all follow-up visits. This is important. This information is not intended to replace advice given to you by your health care provider. Make sure you discuss any questions you have with your health care provider. Document Revised: 04/04/2022 Document Reviewed: 04/04/2022 [employer] Patient Education ? 2023 [employer] Endovenous Ablation Endovenous ablation is a procedure that seals off an abnormally enlarged leg vein (varicose vein). This procedure uses heat from radiofrequency waves or a laser to close off the affected vein. This procedure leaves the vein in place, so there is minimal pain and bruising. Closing off the vein can help reduce symptoms by preventing the pooling of blood that causes varicose veins. This procedure may be done if the vein is causing pain, swelling, sores on the skin (ulcers), or skin discoloration. Tell a health care provider about: ? Any allergies you have. ? All medicines you are taking, including vitamins, herbs, eye drops, creams, and zgws-egr-rzrkhly medicines. ? Any problems you or family members have had with anesthetic medicines. ? Any bleeding problems you have. ? Any surgeries you have had. ? Any medical conditions you have or have had. ? Whether you are or may be . What are the risks? Generally, this is a safe procedure. However, problems may occur, including: ? Infection. ? Bleeding. ? Allergic react (more content not included)... [facility] 02-14-2025 Note Procedures Endovenous Ablation Endovenous ablation is a procedure that seals off an abnormally enlarged leg vein (varicose vein). This procedure uses heat from radiofrequency waves or a laser to close off the affected vein. This procedure leaves the vein in place, so there is minimal pain and bruising. Closing off the vein can help reduce symptoms by preventing the pooling of blood that causes varicose veins. This procedure may be done if the vein is causing pain, swelling, sores on the skin (ulcers), or skin discoloration. Tell a health care provider about: ? Any allergies you have. ? All medicines you are taking, including vitamins, herbs, eye drops, creams, and zdrv-xkb-drbzorj medicines. ? Any problems you or family members have had with anesthetic medicines. ? Any bleeding problems you have. ? Any surgeries you have had. ? Any medical conditions you have or have had. ? Whether you are or may be . What are the risks? Generally, this is a safe procedure. However, problems may occur, including: ? Infection. ? Bleeding. ? Allergic reactions to medicines. ? Damage to nearby structures. ? Numbness or tingling along the leg. This is uncommon, and it is usually temporary. ? Vein swelling. This is usually temporary. ? Blood clots that form in a deep vein of the leg (deep vein thrombosis, or DVT) and can travel to the lungs (pulmonary embolism, or PE). This is very rare. What happens before the procedure? When to stop eating and drinking Follow instructions from your health care provider about what you may eat and drink before your procedure. These may include: ? 8 hours before your procedure ? Stop eating most foods. Do not eat meat, fried foods, or fatty foods. ? Eat only light foods, such as toast or crackers. ? All liquids are okay except energy drinks and alcohol. ? 6 hours before your procedure ? Stop eating. ? Drink only clear liquids, such as water, clear fruit juice, black coffee, plain tea, and sports drinks. ? Do not drink energy drinks or alcohol. ? 2 hours before the procedure ? Stop drinking all liquids. ? You may be allowed to take medicines with small sips of water. If you do not follow your health care provider's instructions, your procedure may be delayed or canceled. Medicines Ask your health care provider about: ? Changing or stopping your regular medicines. This is especially important if you are taking diabetes medicines or blood thinners. ? Taking medicines such as aspirin and ibuprofen. These medicines can thin your blood. Do not take these medicines unless your health care provider tells you to take them. ? Taking mofu-kan-tisvvnz medicines, vitamins, herbs, and supplements. General instructions ? You may have blood tests to make sure that your blood can clot normally. ? Do not use any products that contain nicotine or tobacco for at least 4 weeks before the procedure. These products include cigarettes, chewing tobacco, and vaping devices, such as e-cigarettes. If you need help quitting, ask your health care provider. ? Plan to have a responsible adult take you home from the hospital or clinic. ? If you will be going home right after the procedure, plan to have a responsible adult care for you for the time you are told. This is important. ? Ask your health care provider what steps will be taken to help prevent infection. These may include: ? Removing hair at the procedure site. ? Washing skin with a germ-killing soap. What happens during the procedure? ? You will lie on an exam table. ? An IV will be inserted into one of your veins. ? You will be given one or more of the following: ? A medicine to help you relax (sedative). ? A medicine to numb the area (local anesthetic). ? A medicine to make you fall asleep (general anesthetic). ? Your health care provider will use an imaging tool that uses sound waves (ultrasound) to show images of your leg veins and to rosa the skin over the target treatment vein. ? A small incision will be made near the area that will be treated. A thin tube (catheter) will be slipped through the incision and into the vein. ? Your health care provider will inject a solution of salt water and anesthetic agent along the length of the vein to be treated. ? Electrodes or laser fibers will be passed through the catheter and into the vein. ? Radiofrequency or laser energy will be sent through the electrodes or laser fibers to burn the vein. This seals off the vein. ? The electrodes, laser fibers, and catheter will be removed from the vein. ? A bandage (dressing) will be placed over the incision. The procedure may vary among health care providers and hospitals. What happens after the procedure? ? Your blood pressure, heart rate, breathing rate, and blood oxygen level may be monitored until you leave the hospital or clinic. ? You may have to wear compression stockings. These stockings help (more content not included)... [facility] 02-08-2025 Note Procedures Endovenous Ablation Endovenous ablation is a procedure that seals off an abnormally enlarged leg vein (varicose vein). This procedure uses heat from radiofrequency waves or a laser to close off the affected vein. This procedure leaves the vein in place, so there is minimal pain and bruising. Closing off the vein can help reduce symptoms by preventing the pooling of blood that causes varicose veins. This procedure may be done if the vein is causing pain, swelling, sores on the skin (ulcers), or skin discoloration. Tell a health care provider about: ? Any allergies you have. ? All medicines you are taking, including vitamins, herbs, eye drops, creams, and infd-mrb-jvhxmou medicines. ? Any problems you or family members have had with anesthetic medicines. ? Any bleeding problems you have. ? Any surgeries you have had. ? Any medical conditions you have or have had. ? Whether you are or may be . What are the risks? Generally, this is a safe procedure. However, problems may occur, including: ? Infection. ? Bleeding. ? Allergic reactions to medicines. ? Damage to nearby structures. ? Numbness or tingling along the leg. This is uncommon, and it is usually temporary. ? Vein swelling. This is usually temporary. ? Blood clots that form in a deep vein of the leg (deep vein thrombosis, or DVT) and can travel to the lungs (pulmonary embolism, or PE). This is very rare. What happens before the procedure? When to stop eating and drinking Follow instructions from your health care provider about what you may eat and drink before your procedure. These may include: ? 8 hours before your procedure ? Stop eating most foods. Do not eat meat, fried foods, or fatty foods. ? Eat only light foods, such as toast or crackers. ? All liquids are okay except energy drinks and alcohol. ? 6 hours before your procedure ? Stop eating. ? Drink only clear liquids, such as water, clear fruit juice, black coffee, plain tea, and sports drinks. ? Do not drink energy drinks or alcohol. ? 2 hours before the procedure ? Stop drinking all liquids. ? You may be allowed to take medicines with small sips of water. If you do not follow your health care provider's instructions, your procedure may be delayed or canceled. Medicines Ask your health care provider about: ? Changing or stopping your regular medicines. This is especially important if you are taking diabetes medicines or blood thinners. ? Taking medicines such as aspirin and ibuprofen. These medicines can thin your blood. Do not take these medicines unless your health care provider tells you to take them. ? Taking kofa-etg-xoipwsj medicines, vitamins, herbs, and supplements. General instructions ? You may have blood tests to make sure that your blood can clot normally. ? Do not use any products that contain nicotine or tobacco for at least 4 weeks before the procedure. These products include cigarettes, chewing tobacco, and vaping devices, such as e-cigarettes. If you need help quitting, ask your health care provider. ? Plan to have a responsible adult take you home from the hospital or clinic. ? If you will be going home right after the procedure, plan to have a responsible adult care for you for the time you are told. This is important. ? Ask your health care provider what steps will be taken to help prevent infection. These may include: ? Removing hair at the procedure site. ? Washing skin with a germ-killing soap. What happens during the procedure? ? You will lie on an exam table. ? An IV will be inserted into one of your veins. ? You will be given one or more of the following: ? A medicine to help you relax (sedative). ? A medicine to numb the area (local anesthetic). ? A medicine to make you fall asleep (general anesthetic). ? Your health care provider will use an imaging tool that uses sound waves (ultrasound) to show images of your leg veins and to rosa the skin over the target treatment vein. ? A small incision will be made near the area that will be treated. A thin tube (catheter) will be slipped through the incision and into the vein. ? Your health care provider will inject a solution of salt water and anesthetic agent along the length of the vein to be treated. ? Electrodes or laser fibers will be passed through the catheter and into the vein. ? Radiofrequency or laser energy will be sent through the electrodes or laser fibers to burn the vein. This seals off the vein. ? The electrodes, laser fibers, and catheter will be removed from the vein. ? A bandage (dressing) will be placed over the incision. The procedure may vary among health care providers and hospitals. What happens after the procedure? ? Your blood pressure, heart rate, breathing rate, and blood oxygen level may be monitored until you leave the hospital or clinic. ? You may have to wear compression stockings. These stockings help (more content not included)... [facility] 07-14-2024 Telephone encounter Note Called pt/pt verbalized understanding. [facility] 07-14-2024 Miscellaneous Notes Called pt/pt verbalized understanding. Those are usually the cheapest. Others are potentially toxic to the ears. Have pt ask his pharmacist make a suggestion based upon Chuy's insurance Pt wants to know if another kind of ear drops can be prescribed that are a lot cheaper. The rx prescribed is $95.00. documented in this encounter [facility] 07-14-2024 Telephone encounter Note Those are usually the cheapest. Others are potentially toxic to the ears. Have pt ask his pharmacist make a suggestion based upon Chuy's insurance [facility] 07-14-2024 Telephone encounter Note Pt wants to know if another kind of ear drops can be prescribed that are a lot cheaper. The rx prescribed is $95.00. [facility] 07-14-2024 History of Present illness Narrative Subjective Patient ID: Chuy Chapin [...] if sx persist documented in this encounter [facility] 07-31-2021 Note Pre-procedure Verifi cation and Time Out: Pre-Procedure Verification and Time Out: Procedure Locationprocedure area HUDDLE - Pre-procedure Verificationcompleted TIME OUT - Final Verificationcompleted immediately prior to procedure start DEBRIEFcompleted General Information: Anesthesia Critical Care: Non-Anesthesia Date/Time of Procedure: 31-Jul-2021 16:11 Post-Procedure Diagnosis: sp liver biopsy Procedure Name: Us guided liver biopsy Findings: see PACS report Procedure performed by: Sandy Roland MD Materials Supervisor(s): Dee Lopes Md Estimated Blood Loss (mL): [...] Last Updated: 02-Aug-2021 13:04 by Sandy Roland) [facility] 05-08-2021 Note Pre-procedure Verifi cation and Time Out: Pre-Procedure Verification and Time Out: Procedure Locationprocedure area HUDDLE - Pre-procedure Verificationcompleted TIME OUT - Final Verificationcompleted DEBRIEFcompleted General Information: Anesthesia Critical Care: Non-Anesthesia Date/Time of Procedure: 08-May-2021 11:57 Post-Procedure Diagnosis: same Procedure Name: CT Liver Biopsy Findings: grossly normal anatomy Procedure performed by: Materials Supervisor(s): none Estimated Blood Loss (mL): none Specimen: [...] Updated: 08-May-2021 11:58 by Uri Bacon) 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 He is alsonoted to have elevated ALT. ferritin has not improved some per his referring physician and remains over 1000. it is clear that he has a history of heavy alcohol use though this has been reduced more recently (unclear to what extent). He denies cognitive impairment or fluid overload. * Upper Gastrointestinal: no abdominal pain, no eructation, no difficulty swallowing, no early satiety, no heartburn, no jaundiced, no nausea, no pain while swallowing, no regurgitation, no vomiting. * Lower Gastrointestinal: no abdominal swelling, no bloating, no constipation, no diarrhea, no fecal incontinence, no bowel urgency, no steatorrhea. * Liver Disease no alteration in sleep wake cycle, no ankle swelling, no cognitive impairment, no confusion, no icterus, no increase in abdominal girth, no jaundice, no lower extremity edema. * Symptom History: * Modifying Factors: * Associated Symptoms: [facility] Work Phone: Chief Complaint * [...] section and content) DATE CREATED AUTHOR 04/14/2021 [employer] DATE CREATED AUTHOR AUTHOR'S ORGANIZ ATION 05/15/2021 [facility] DATE CREATED AUTHOR AUTHOR'S ORGANIZ ATION 11/29/2021 [facility] DATE CREATED AUTHOR AUTHOR'S ORGANIZ ATION 04/15/2022 [facility] DATE CREATED AUTHOR AUTHOR'S ORGANIZ ATION 01/28/2023 [facility] DATE CREATED AUTHOR AUTHOR'S ORGANIZ ATION 05/24/2023 [place] DATE CREATED AUTHOR AUTHOR'S ORGANIZ ATION 07/15/2024 [facility]IC DATE CREATED AUTHOR AUTHOR'S ORGANIZ ATION 04/27/2025 [facility] Goals (unrecognized section and content) Goals may be documented in a n alternate section Care Teams (unrecognized sec tion and content) Kindergarten Teacher Assistant Relationship Specialty Start Date End Date Genevieve Tong MD [address] [place] [address] PCP - General Family Medicine 05/24/24 Kindergarten Teacher Assistant Relationship Specialty Start Date End Date Genevieve Tong MD [address] [place] [address] PCP - General [facility] Medicine 05/24/24 Kindergarten Teacher Assistant Relationship Specialty Start Date End Date Genevieve Tong MD [address] [place] [phone] PCP - General Family Medicine 05/24/24 Reason [...] BE BASED ON THE PRIMARY CLINICAL RECORDS. [facility]. provides no warranty or guarantee of the accuracy or completeness of information in this document.
--- OUTSIDE RECORDS SUMMARY | 2025-04-29 19:59 | XMS_ITS | Clinical Summary ---
Author Organization [facility] Healthcare Address [address] [place] [address] Care Team Providers Care Billing Manager Name Role Phone Vern Tong MD Primary Care Provider [phone] Allergies Active Allergy Reactions Criticality Noted Date Comments Morphine Medium 04/03/2022 Other Reaction(s): Swelling of the Eye, Unknown Medications carvedilol (Coreg) 6.25 MG tablet Take 6.25 mg by mouth 1 (one) time each day at the same time Active acamprosate (Campral) 333 MG EC tablet Take 333 mg by mouth in the morning and 333 mg in the evening and 333 mg before bedtime. 04/07/2024 Active doxepin (SINEquan) 10 MG capsule Take 10 mg by mouth every 12 (twelve) hours 04/16/2024 Active hydrOXYzine HCl (Atarax) 25 MG tablet Take 25 mg by mouth every 6 (six) hours 04/07/2024 Active levothyroxine (Synthroid, Levoxyl) 50 MCG tablet Take 50 mcg by mouth in the morning. Take before meals. Active liothyronine (Cytomel) 5 MCG tablet Take 5 mcg by mouth Daily Active lisinopril 10 MG tablet Take 10 mg by mouth Daily Active melatonin 10 MG tablet Take 10 mg by mouth at bedtime 04/07/2024 Active mirtazapine (Remeron) 45 MG tablet Take 45 mg by mouth 1 (one) time each day at the same time Active risperiDONE (RisperDAL) 1 MG tablet Take 1 mg by mouth 1 (one) time each day at the same time Active Crestor 5 MG tablet Take 5 mg by mouth 1 (one) time each day at the same time 05/12/2024 Active simvastatin (Zocor) 10 MG tablet Take 10 mg by mouth 1 (one) time each day at the same time 04/30/2024 Active Active Problems Problem Noted Date Diagnosed Date Mixed conductive and sensori neural hearing loss of left ear with restricted hearing of right ear 05/26/2024 OME (otitis media with effusion), right 05/26/20 24 ETD (Eustachian tube dysfunction), right 024 Abnormal AST and ALT 05/25/2024 Acute kidney injury 05/25/2024 Anemia due to blood loss 05/25/2024 Anxiety 05/25/2024 Conductive hearing loss, uni lateral, right ear with restricted hearing on the contralateral side 05/25/2024 Diarrhea 05/25/2024 Fatty liver 05/25/2024 Hereditary hemochromatosis 05/25/2024 High cholesterol 05/25/2024 Hypertension 05/25/2024 Post-traumatic osteoarthritis of right shoulder 05/25/2024 Serous otitis media 05/25/2024 Gastroenteritis 05/25/2024 Hepatic fibrosis 05/25/2024 Diverticulitis 05/25/2024 Palpitation 05/25/2024 Rotator cuff tear 05/25/2024 Sebaceous cyst 05/25/2024 Hearing abnormally acute, right 05/17/2024 Family History Medical History Relation Name Comments Arthritis Brother Gerardo Chapin Hypertension Brother Gerardo Chapin Cancer Father Alhaji Chapin Diabetes Mother Vanita Gaitan HTN Mother Vanita Gaitan Heart disease Mother Vanita Gaitan Relation Name Status Comments Brother Gerardo Chapin Alive Father Alhaji Chapin Mother Vanita Gaitan Alive Sister Alive Social History Tobacco Use Types Packs/Day Years Used Date Smoking Tobacco: Former Cigarettes Smokeless Tobacco: Never Alcohol Use Standard Drinks/Week Comments Not Currently 0 (1 standard drink = 0.6 oz pur e alcohol) Sex and Gender Information Value Date Recorded Sex Assigned at Not on file Legal Sex Male 6:52 PM EDT Gender Identity Not on file Sexual Orientation Not on file Last Filed Vital Signs Vital Sign Reading Time Taken Comments Blood Pressure 104/64 07/14/2024 9:54 AM EDT Pulse - - Temperature - - Respiratory Rate - - Oxygen Saturation - - Inhaled Oxygen Concentration - - Weight 86.2 kg (190 lb) 07/14/2024 9:54 AM EDT Height 177.8 cm (5' 10 ) 07/14/2024 9:54 AM EDT Body Mass Index 27.26 07/14/2024 9:54 AM EDT Plan of Treatment Health Maintenance Due Date Last Done Comments CT Colonography 1970 Colonoscopy 1970 Colorectal Cancer Screening 1970 FIT-DNA 1970 FIT 1970 FOBT 1970 Sigmoidoscopy 1970 Influenza Vaccine (Season Ended) 2025 09/03/20 23 Insurance [facility] Care Teams Billing Manager Relationship Specialty Start Date End Date Vern Tong MD PCP - General Family Medicine 05/24/24
--- OUTSIDE RECORDS SUMMARY | 2025-04-29 19:59 | XMS_ITS | Clinical Summary ---
Author Organization [facility] Address [address] [place] [address] Phone Care Team Providers Care Crimping Machine Operator For Metal Name Role Phone Unavailable Primary Care Provider Unavailabl e Social History Tobacco Use Types Packs/Day Years Used Date Smoking Tobacco: Never Assessed Sex and Gender Information Value Date Recorded Sex Assigned at Not on file Legal Sex Male 9:26 PM EST Gender Identity Not on file Sexual Orientation Not on file Last Filed Vital Signs Vital Sign Reading Time Taken Comments Blood Pressure - - Pulse - - Temperature - - Respiratory Rate - - Oxygen Saturation - - Inhaled Oxygen Concentration - - Weight - - Height 177.8 cm (5' 10 ) 05/08/2021 10:04 AM EDT Body Mass Index - - Plan of Treatment Not on file
--- OUTSIDE RECORDS SUMMARY | 2025-04-29 20:00 | XMS_ITS | Encounter Summary ---
Author Organization [facility] Address [address] [facility] [place] [address] Care Team Providers Care Shuffle Board Operator Name Role Phone Vern Tong MD Primary Care Provider [phone] Encounter Details Date Type Department Care Team (Late st Contact Info) Description 06/25/2024 Orders Only [facility] [address] [place] [id number] Vivienne Kat MD [address] [place] [address] Social History Tobacco Use Types Packs/Day Years Used Date Smoking Tobacco: Former Cigarettes Smokeless Tobacco: Never Alcohol Use Standard Drinks/Week Comments Not Currently 0 (1 standard drink = 0.6 oz pur e alcohol) Sex and Gender Information Value Date Recorded Sex Assigned at Not on file Legal Sex Male 6:52 PM EDT Gender Identity Not on file Sexual Orientation Not on file documented as of this encounter Plan of Treatment Not on file documented as of this encounter Procedures Procedure Name Priority Date/Time Associated Diagnosis Comments ECG 12-LEAD Routine 06/25/2024 9:28 AM EDT documented in this encounter Results * ECG 12 lead (06/25/2024 9:28 AM EDT) Vivienne Kat MD ECG ORDERABLES Final Result documented in this encounter Visit Diagnoses Not on filedocumented in this encounter Care Teams Shuffle Board Operator Relationship Specialty Start Date End Date Vern Tong MD PCP - General Family Medicine 05/24/24 documented as of this encounter
--- OUTSIDE RECORDS SUMMARY | 2025-04-29 20:00 | XMS_ITS | Encounter Summary ---
Author Organization [facility] Address [address] [place] [address] Care Team Providers Care It Application Architect Name Role Phone Vern Arreola MD Primary Care Provider [phone] Encounter Details Date Type Department Care Team (Late st Contact Info) Description 06/22/2024 Clinisync Result Encounter [facility] External Department Unsolicited Rashawn Kat MD [address] [facility] [address] [place] [id number] Social History Tobacco Use Types Packs/Day Years [...] Priority Date/Time Associated Diagnosis Comments ECG 12-LEAD 06/22/2024 2:57 PM EDT documented in this encounter Results * ECG 12-LEAD (06/22/2024 2:57 PM EDT) Anatomical Region Laterality Modality Other 06/22/2024 2:57 PM EDT Narrative 06/25/2024 6:05 AM EDT The [address] [address] Electrocardiograph Report Signed Patient: CHUY FRITZ MR#: [id number] : 1970 Acct:[id number] Age/Sex: 54 / M ADM Date: 06/22/24 Loc: PST Attending Dr: Rashawn Kat M.D. Ordering Physician: Rashawn Kat M.D. Date of Service: 06/22/24 Procedure(s): ECG 12 lead Accession Number(s): [id number] cc: [facility] Test Date: 2024-06-22 Pat Name: CHUY FRITZ Department: Room: - Gender: Male Enterprise Integration Developer: : 1970 Requested By: RASHAWN KAT Order Number: [id number] Reading MD: VERN ARREOLA Measurements Intervals [place] Rate: 66 P: 3 OR: 153 QRS: -13 QRSD: 82 T: 10 QT: 410 QTc: 432 Interpretive Statements SINUS RHYTHM Non-Specific T wave inversion in III No previous ECG available for comparison Electronically Signed On 06-25-2024 6:05:16 EDT by VERN ARREOLA Dictated By: Vern Arreola M.D. Signed By: 06/25/24 0605 DD/ 1457 TD/TT: Entertainment Reporter: Procedure Note Radiology, Radiologist, MD - 06/25/2024 [place] [address] Electrocardiograph Report Signed Patient: CHUY FRITZ CMR#: [id number] : 1970Acct:[id number] Age/Sex: 54 / MADM Date: 06/22/24 Loc: PST Attending Dr: Rashawn Kat M.D. Ordering Physician: Rashawn Kat M.D. Date of Service: 06/22/24 Procedure(s): ECG 12 lead Accession Number(s): [id number] cc: [facility] Test Date: 2024-06-22 Pat Name: CHUY FRITZ Department: Room: - Gender: Male Enterprise Integration Developer: : 1970 Requested By: RASHAWN KAT Order Number: [id number] Reading MD: VERN ARREOLA Measurements Intervals [place] Rate: 66 P: 3 OR: 153 QRS: -13 QRSD: 82 T: 10 QT: 410 QTc: 432 Interpretive Statements SINUS RHYTHM Non-Specific T wave inversion in III No previous ECG available for comparison Electronically Signed On 06-25-2024 6:05:16 EDT by VERN ARREOLA Dictated By: Vern Arreola M.D. Signed By:06/25/24 0605 DD/ 1457 TD/TT: Entertainment Reporter: us Rashawn Kat MD [facility] Final Resul t documented in this encounter Visit Diagnoses Not on filedocumented in this encounter Care Teams It Application Architect Relationship Specialty Start Date End Date Vern Arreola MD PCP - General Family Medicine 05/24/24 documented as of this encounter
--- OUTSIDE RECORDS SUMMARY | 2025-04-29 20:00 | XMS_ITS | Encounter Summary ---
Author Organization [facility] Address [address] [place] [address] Care Team Providers Care Dental Practice Manager Name Role Phone Vern Tong MD Primary Care Provider [phone] Encounter Details Date Type Department Care Team (Late st Contact Info) Description 07/21/2019 Abstract [facility] [address] [place] [address] [facility] Diaz[facility] [address] [place] [address] Social History Tobacco Use Types Packs/Day Years Used Date Smoking Tobacco: Never Assessed Sex and Gender Information Value Date Recorded Sex Assigned at Not on file Legal Sex Male 6:52 PM EDT Gender Identity Not on file Sexual Orientation Not on file documented as of this encounter Plan of Treatment Not on file documented as of this encounter Visit Diagnoses Not on filedocumented in this encounter Care Teams Dental Practice Manager Relationship Specialty Start Date End Date Vern Tong MD PCP - General Family Medicine 05/24/24 documented as of this encounter
--- OUTSIDE RECORDS SUMMARY | 2025-04-29 20:00 | XMS_ITS | Patient Health Record ---
Author Organization The 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 Name Role Phone Bobo Tong Primary Care Provider BOBO TONGLAS Unavailable [phone] Allergies Allergen (clinical drug ingredient) Drug/Non Drug Allergy documented on EMR Reaction Allergy Type Onset Date Status morphine Morphine anaphylaxis Drug Allergy Activ e Results Component Value Reference Range Notes CBC AUTO DIFF Reviewed date:06/29/2024 02:38:31 PM Interpretation: Performing Lab: Notes/Report: [facility] , White Blood Count 5.0 4.0-11.0 10 3/uL Red Blood Count 4.37 4.70-6.10 10 6/uL Hemoglobin 13.8 14.0-18.0 g/dL Hematocrit 41.3 42.0-54.0 % Mean Corpuscular Volume 94.5 80.0-94.0 fL Mean Corpuscular Hemoglobin 31.6 25.9-34.0 pg Mean Corpuscular HGB Conc 33.4 29.9-35.2 g/dL Red Cell Distribution Width 13.5 11.0-15.0 % Platelet Count 87 150-450 10 3/uL Mean Platelet Volume 12.3 9.5-13.5 fL Neutrophils Percent Auto 45.8 43.0-75.0 % Lymphocytes Percent Auto 36.7 20.5-60.0 % Monocytes Percent Auto 11.5 1.7-12.0 % Eosinophils Percent Auto 5.2 0.9-7.0 % Basophils Percent Auto 0.6 0.2-2.0 % Immature Granulocytes Pct Auto 0.2 0.0-0.5 % Neutrophils Absolute Auto 2.3 1.4-6.5 10 3/uL Lymphocytes Absolute Auto 1.8 1.2-3.8 10 3/uL Monocytes Absolute Auto 0.6 0.3-0.8 10 3/uL Eosinophils Absolute Auto 0.3 0.0-0.7 10 3/uL Basophils Absolute Auto 0.0 0.0-0.1 10 3/uL Immature Granulocytes Abs Auto 0.01 0.00-0.03 10 3/uL Performing Lab: see note ML - [facility] LB BNP Reviewed date:08/16/2024 08:21:54 PM Interpretation: Performing Lab: Notes/Report: [facility] , NT Pro B Type Natriuretic Pept 116.0 <=900.0 pg/mL Performing Lab: see note ML - [facility] LB GGT Reviewed date:06/15/2024 03:13:15 PM Interpretation: Performing Lab: Notes/Report: [facility] , Gamma Glutamyl Transpeptidase 101 15-85 U/L Performing Lab: see note ML - [facility] LB BNP Reviewed date:01/02/2025 09:47:44 AM Interpretation: Performing Lab: Notes/Report: [facility] , NT Pro B Type Natriuretic Pept 37.0 <=900.0 pg/mL Performing Lab: see note ML - [facility] LB CBC AUTO DIFF Reviewed date:01/02/2025 09:47:44 AM Interpretation: Performing Lab: Notes/Report: [facility] , White Blood Count 5.8 4.0-11.0 10 3/uL Red Blood Count 4.68 4.70-6.10 10 6/uL Hemoglobin 14.9 14.0-18.0 g/dL Hematocrit 43.7 42.0-54.0 % Mean Corpuscular Volume 93.4 80.0-94.0 fL Mean Corpuscular Hemoglobin 31.8 25.9-34.0 pg Mean Corpuscular HGB Conc 34.1 29.9-35.2 g/dL Red Cell Distribution Width 13.5 11.0-15.0 % Platelet Count 92 150-450 10 3/uL Mean Platelet Volume 11.9 9.5-13.5 fL Neutrophils Percent Auto 84.6 43.0-75.0 % Lymphocytes Percent Auto 13.8 20.5-60.0 % Monocytes Percent Auto 0.9 1.7-12.0 % Eosinophils Percent Auto 0.0 0.9-7.0 % Basophils Percent Auto 0.2 0.2-2.0 % Immature Granulocytes Pct Auto 0.5 0.0-0.5 % Neutrophils Absolute Auto 4.9 1.4-6.5 10 3/uL Lymphocytes Absolute Auto 0.8 1.2-3.8 10 3/uL Monocytes Absolute Auto 0.1 0.3-0.8 10 3/uL Eosinophils Absolute Auto 0.0 0.0-0.7 10 3/uL Basophils Absolute Auto 0.0 0.0-0.1 10 3/uL Immature Granulocytes Abs Auto 0.03 0.00-0.03 10 3/uL Performing Lab: see note ML - [facility] LB XR chest 2V Reviewed date:01/02/2025 09:47:44 AM Interpretation: Performing Lab: Notes/Report: Source Facility: [place] [address] XRay Report Signed Patient: CHUY CHAPIN MR#: [id number] : 1970 Acct:[id number] Age/Sex: 54 / M ADM Date: 12/31/24 Loc: LAB Attending Dr: Genevieve Tong M.D. Ordering Physician: Genevieve Tong M.D. Date of Service: 12/31/24 Procedure(s): XR chest 2V Accession Number(s): [id number] cc: Genevieve Tong M.D. [place] [address] Patient Name: CHUY CHAPIN MRN: [id number] date: 1970 Sex: M Assigned Patient Location: LAB Current Patient Location: LAB Accession/Order Number: [id number] Exam Date: 12/31/2024 13:50 Report Date: 12/31/2024 13:50 At the request of: GENEVIEVE TONG MD Procedure: XR chest 2V XR chest 2V 12/31/2024 1:17 PM SIGNS AND SYMPTOMS: Wheezing, bronchitis PROTOCOL: Frontal and lateral radiographs of the chest COMPARISON: None FINDINGS: The trachea is midline. The heart and mediastinal structures are within normal limits. The lung parenchyma is clear. The bony thorax is intact. XR/XR chest 2V IMPRESSION: No acute cardiopulmonary pathology. Impression dictated by: Ras Lucero M.D.12/31/2024 1:50 PM Dictation Location: [place] [address] Electronically authenticated by: [id number] Y Date: 12/31/2024 13:50 Dictated By: Ras Lucero M.D. Signed By: 12/31/24 1353 DD/ 1350 TD/TT: Napping Machine Operator: [place] [address] XRay Report Signed Patient: CHUY CHAPIN MR#: [id number] : 1970 Acct:[id number] Age/Sex: 54 / M ADM Date: 12/31/24 Loc: LAB Attending Dr: Christopher Tong M.D. Ordering Physician: Genevieve Tong M.D. Date of Service: 12/31/24 Procedure(s): XR chest 2V Accession Number(s): [id number] cc: Genevieve Tong M.D. [place] [address] Patient Name: CHUY CHAPIN MRN: [id number]:[id number] date: 1970 Sex: M Assigned Patient Loc ation: LAB Current Patient Loca tion: LAB Accession/Order Numb er: [id number] Exam Date: 12/31/2024 13:50 Report Date: 12/31/2024 13:50 At the request of: GENEVIEVE TONG MD Procedure: XR chest 2V XR chest 2V 1:17 PM SIGNS AND SYMPTOMS: Wheezing, bronchitis PROTOCOL: Frontal an d lateral radiographs of the chest COMPARISON: None FINDINGS: The trachea is midli ne. The heart and mediastinal structures are within normal limits. The l nikita parenchyma is clear. The bony thorax is intact. X R/XR chest 2V IMPRESSION: No acute cardiopulmo nary pathology. Impression dictated by: Ras Lucero M.D.12/31/2024 1:50 PM Dictation Location: [place] [address] Electronically authenticated by: [id number] Y Date: 12/31/2024 13:50 Dictated By: Ras Lucero M.D. Signed By: 12/31/24 1353 DD/ 135 TD/TT: Napping Machine Operator: PROF Norris(COMP METB) Reviewed date:06/15/2024 03:13:15 PM Interpretation: Performing Lab: Notes/Report: [facility] , Sodium 140 136-145 mmol/L Potassium 4.4 3.5-5.1 mmol/L Chloride 106 98-107 mmol/L Carbon Dioxide 25.7 21.0-32.0 mmol/L Anion Gap 12.7 Glucose 135 74-106 mg/dL Blood Urea Nitrogen 6.0 7.0-18.0 mg/dL Creatinine 0.83 0.70-1.30 mg/dL Estimated GFR ( Michelle >60 >=60 Estimated GFR (Non- Aileen >60 >=60 BUN Creatinine Ratio 7.2 Calcium 9.1 8.5-10.1 mg/dL Bilirubin Total 1.5 0.2-1.0 mg/dL Aspartate Amino Transferase 37 15-37 U/L Alanine Aminotransferase 21 16-63 U/L Alkaline Phosphatase 70 46-116 U/L Total Protein 6.6 6.4-8.2 g/dL Albumin Level 2.8 3.4-5.0 g/dL Globulin 3.8 Albumin Globulin Ratio 0.7 Performing Lab: see note ML - [facility] LB CBC AUTO DIFF Reviewed date:06/22/2024 08:54:14 PM Interpretation: Performing Lab: Notes/Report: [facility] , White Blood Count 5.0 4.0-11.0 10 3/uL Red Blood Count 4.19 4.70-6.10 10 6/uL Hemoglobin 13.3 14.0-18.0 g/dL Hematocrit 39.0 42.0-54.0 % Mean Corpuscular Volume 93.1 80.0-94.0 fL Mean Corpuscular Hemoglobin 31.7 25.9-34.0 pg Mean Corpuscular HGB Conc 34.1 29.9-35.2 g/dL Red Cell Distribution Width 13.4 11.0-15.0 % Platelet Count 82 150-450 10 3/uL Mean Platelet Volume 12.4 9.5-13.5 fL Neutrophils Percent Auto 43.3 43.0-75.0 % Lymphocytes Percent Auto 39.7 20.5-60.0 % Monocytes Percent Auto 10.6 1.7-12.0 % Eosinophils Percent Auto 4.6 0.9-7.0 % Basophils Percent Auto 0.8 0.2-2.0 % Immature Granulocytes Pct Auto 1.0 0.0-0.5 % Neutrophils Absolute Auto 2.2 1.4-6.5 10 3/uL Lymphocytes Absolute Auto 2.0 1.2-3.8 10 3/uL Monocytes Absolute Auto 0.5 0.3-0.8 10 3/uL Eosinophils Absolute Auto 0.2 0.0-0.7 10 3/uL Basophils Absolute Auto 0.0 0.0-0.1 10 3/uL Immature Granulocytes Abs Auto 0.05 0.00-0.03 10 3/uL Performing Lab: see note ML - [facility] LB PTT Reviewed date:06/22/2024 08:54:14 PM Interpretation: Performing Lab: Notes/Report: [facility] , Partial Thromboplastin Time 30.3 22.3-36.2 sec Performing Lab: see note ML - [facility] LB Prothrombin Time INR Reviewed date:06/22/2024 08:54:14 PM Interpretation: Performing Lab: Notes/Report: [facility] , Prothrombin Time 11.8 9.0-11.6 sec INR 1.13 2.5-3.5 RECURRENT THROMBOSIS DESIRED INR: 2.0-3.0 CONDITIONS NOT LISTED BELOW 2.5-3.5 FOR PROSTHETIC HEART VALVE REPLACEMENT Performing Lab: see note ML - [facility] LB ECG 12 lead Reviewed date:06/27/2024 05:17:59 PM Interpretation: Performing Lab: Notes/Report: Source Facility: [facility] [place] [address] [place] [address] Electrocardiograph Report Signed Patient: CHUY CHAPIN MR#: [id number] : 1970 Acct:[id number] Age/Sex: 54 / M ADM Date: 06/22/24 Loc: PST Attending Dr: Vivienne Velázquez M.D. Ordering Physician: Vivienne Velázquez M.D. 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 Signed By: 06/25/24 0605 DD/ 1457 TD/TT: Napping Machine Operator: [place] [address] Electrocardiograph Report Signed Patient: CHUY CHAPIN MR#: [id number] : 1970 Acct:[id number] Age/Sex: 54 / M ADM Date: 06/22/24 Loc: PST Attending Dr: Vivienne Velázquez M.D. Ordering Physician: Vivienne Velázquez M.D. Date of Service: 06/22/24 Procedure(s): ECG 12 lead Accession Number(s): [id number] cc: [facility] Test Date: 2024-06-22 Pat Name: CHUY Arango Department: 62 Room: - Gender: Male Skip Operator: : 1970 Requ ested By: VIVIENNE VELÁZQUEZ Order Number: [id number] Reading MD: GENEVIEVE TONG Measurements Intervals [place] Rate: 66 P: 3 MI: 153 QRS: -13 QRSD: 82 T: 10 QT: 410 QTc: 432 Interpretive Statements SINUS RHYTHM Non-Specific T wave inversion in III No previous ECG avai lable for comparison Electronically Romana d On 06-25-2024 6:05:16 EDT by GENEVIEVE TONG Dictated By: Russ Tong M.D. Signed By: 06/25/24 0605 DD/ 1457 TD/TT: Napping Machine Operator: FREE T3 Reviewed date:08/16/2024 08:21:54 PM Interpretation: Performing Lab: Notes/Report: [facility] , Free T3 3.47 2.18-3.98 pg/mL Performing Lab: see note - [facility] LB PROF 14(COMP METB) Reviewed date:08/16/2024 08:21:54 PM Interpretation: Performing Lab: Notes/Report: [facility] , Sodium 139 136-145 mmol/L Potassium 4.1 3.5-5.1 mmol/L Chloride 107 98-107 mmol/L Carbon Dioxide 26.3 21.0-32.0 mmol/L Anion Gap 9.8 Glucose 100 74-106 mg/dL Blood Urea Nitrogen 10.0 7.0-18.0 mg/dL Creatinine 0.88 0.70-1.30 mg/dL Estimated GFR ( Michelle >60 >=60 mL/min/1.73m 2 Estimated GFR (Non- Aileen >60 >=60 mL/min/1.73m 2 BUN Creatinine Ratio 11.4 Calcium 9.1 8.5-10.1 mg/dL Bilirubin Total 1.4 0.2-1.0 mg/dL Aspartate Amino Transferase 25 15-37 U/L Alanine Aminotransferase 18 16-63 U/L Alkaline Phosphatase 73 46-116 U/L Total Protein 6.4 6.4-8.2 g/dL Albumin Level 2.7 3.4-5.0 g/dL Globulin 3.7 Albumin Globulin Ratio 0.7 Performing Lab: see note ML - [facility] LB T4 Reviewed date:08/16/2024 08:21:54 PM Interpretation: Performing Lab: Notes/Report: [facility] , T4 Thyroxine 5.60 4.50-12.10 ug/dL Performing Lab: see note ML - [facility] LB TSH Reviewed date:08/16/2024 08:21:54 PM Interpretation: Performing Lab: Notes/Report: [facility] , Thyroid Stimulating Hormone 1.596 0.358-3.740 uIU/mL Performing Lab: see note ML - [facility] Troponin I High Sensitivity Reviewed date:08/16/2024 08:21:54 PM Interpretation: Performing Lab: Notes/Report: [facility] , Troponin I High Sensitivity 4.6 4.0-76.1 pg/mL WITH OTHER DIAGNOSTIC AND CLINICAL INFORMATION. USED IN ISOLATION BUT SHOULD BE INTERPRETED IN CONJUNCTION 99TH PERCENTILE = 76.2 PG/ML HAS BEEN CONFIRMED THE DECISION THRESHOLD FOR MT DIAGNOSIS. UNIVERSAL DEFINITION OF MYOCARDIAL INFARCTION. THE UPPER NOTE: HIGH-SENSITIVITY TROPONIN ASSAY IS NOT INTENDED TO BE CUT-OFF POINTS HAVE BEEN ESTABLISHED BASED ON THE FOURTH PERCENTILE OF cTnI DISTRIBUTION IN A REFERENCE POPULATION, REFERENCE LIMIT (URL) OF TROPONIN, DEFINED THE 99TH Performing Lab: see note ML - [facility] US venous doppler LE BI Reviewed date:08/16/2024 08:21:54 PM Interpretation: Performing Lab: Notes/Report: Source Facility: [place] [address] Ultrasound Report Signed Patient: CHUY CHAPIN MR#: [id number] : 1970 Acct:[id number] Age/Sex: 54 / M ADM Date: 08/16/24 Loc: LAB Attending Dr: Genevieve Tong M.D. Ordering Physician: Genevieve Tong M.D. Date of Service: 08/16/24 Procedure(s): US venous doppler LE BI Accession Number(s): [id number] cc: Genevieve Tong M.D. [place] [address] Patient Name: CHUY CHAPIN MRN: [id number] date: 1970 Sex: M Assigned Patient Location: LAB Current Patient Location: LAB Accession/Order Number: [id number] Exam Date: 08/16/2024 13:06 Report Date: 08/16/2024 13:48 At the request of: GENEVIEVE TONG Procedure: US venous doppler LE BI CLINICAL DATA: Bilateral leg swelling PROCEDURE: Bilateral lower extremity venous duplex ultrasound TECHNIQUE: Strong-scale, color flow, and waveform spectral analysis was performed of the bilateral lower extremities. FINDINGS: The bilateral common femoral, profunda femoral, femoral, and popliteal veins were compressible. The saphenous veins were compressible. No venous thrombosis was seen. The veins fill with color Doppler. Augmentation was normal. US/US venous doppler LE BI IMPRESSION: 1. No acute lower extremity deep venous thrombosis. 2. No superficial venous thrombosis. Electronically authenticated by: Al UMAÑA Date: 08/16/2024 13:48 Dictated By: Al Umaña M.D. Signed By: 08/16/24 1357 DD/ 1348 TD/TT: Napping Machine Operator: [place] [address] Ultrasound Report Signed Patient: CHUY CHAPIN MR#: [id number] : 1970 Acct:[id number] Age/Sex: 54 / M ADM Date: 08/16/24 Loc: LAB Attending Dr: Christopher Tong M.D. Ordering Physician: Genevieve Tong M.D. Date of Service: 08/16/24 Procedure(s): US nicole ous doppler LE BI Accession Number(s): [id number] cc: Genevieve Tong M.D. [place] [address] Patient Name: CHUY CHAPIN MRN: [facility]:[id number] date: 1970 Sex: M Assigned Patient Loc ation: LAB Current Patient Loca tion: LAB Accession/Order Numb er: [id number] Exam Date: 13:06 Report Date: 08/16/2024 13:48 At the request of: GENEVIEVE TONG Procedure: US venous doppler LE BI CLINICAL DATA: Bilat eral leg swelling PROCEDURE: Bilateral lower extremity venous duplex ultrasound TECHNIQUE: Strong-scal e, color flow, and waveform spectral analysis was performed of the bilateral low er extremities. FINDINGS: The bilate ral common femoral, profunda femoral, femoral, and popliteal veins were compressible. The saphenous veins were compressible. No venous thrombosis wa s seen. The veins fill with color Doppler. Augmentation was normal. U S/US venous doppler LE BI IMPRESSION: 1. No acute lower extremity deep venous thrombosis. 2. No superficial ve nous thrombosis. Electronically authenticated by: Al UMAÑA Date: 08/16/2024 13:48 Dictated By: Al Umaña M.D. Signed By: 08/16/24 1351 DD/ 1348 TD/TT: Napping Machine Operator: HORACE echo doppler complete Reviewed date:08/18/2024 08:33:50 PM Interpretation: Performing Lab: Notes/Report: Source Facility: [place] [address] Cardiology Report Signed Patient: CHUY CHAPIN MR#: [id number] : 1970 Acct:[id number] Age/Sex: 54 / M ADM Date: 08/18/24 Loc: CARD Attending Dr: Genevieve Tong M.D. Ordering Physician: Genevieve Tong M.D. Date of Service: 08/18/24 Procedure(s): HORACE echo doppler complete Accession Number(s): [id number] cc: Genevieve Tong M.D. Patient Name: CHUY CHAPIN MR#: [id number] : 1970 Exam Date: 08/18/2024 Ordering Doctor: DR GENEVIEVE TONG . ECHOCARDIOGRAM REPORT PROCEDURE: CA ECHO DOPPLER COMPLETE INDICATIONS: Hypertension, Fluid overload, hypothyroid COMPARISON: None. DESCRIPTION: COMPLETE ECHOCARDIOGRAM Real-time transthoracic echocardiography with 2D, M-mode, spectral and color flow Doppler performed. QUALITY: Technical quality was good. LEFT VENTRICLE: Normal chamber size. Normal left ventricular wall thickness. LV EF: Global left ventricular systolic function is normal; visually estimated ejection fraction is 60 to 65%. No significant wall motion abnormalities. DIASTOLIC: Normal diastolic function. ATRIAL SEPTUM: Inadequately seen. LEFT ATRIUM: Normal chamber size. RIGHT ATRIUM: Normal chamber size. RIGHT VENTRICLE: Normal chamber size. Normal right ventricular systolic function. TRICUSPID VALVE: Normal mobility and thickness. No stenosis with trivial regurgitation. No evidence of pulmonary hypertension. RVSP 30mmHg MITRAL VALVE: Normal mobility and thickness. No evidence of mitral valve stenosis. There is no mitral annular calcification. Trivial mitral regurgitation. AORTIC VALVE: Normal trileaflet appearance. No visible sclerosis. Normal leaflet mobility. No evidence of aortic valve stenosis. No aortic regurgitation. AORTIC ROOT: Normal diameter and appearance. PULMONIC VALVE: Normal thickness and mobility. No stenosis. Trivial regurgitation. PERICARDIUM: No evidence of pericardial effusion. IVC: Collapses with inspirations. Normal size. CONCLUSION: 1. Global left ventricular systolic function is normal; visually estimated ejection fraction is 60 to 65% 2. Normal right ventricular size and systolic function 3. Normal diastolic function 4. The left atrium is normal in size 5. No significant valvular abnormalities Adult Echocardiography Procedure Report Left Ventricle LVEDD (3.7 - 5.6 cm): 4.33 cm LVESD (2.2 - 4.0 cm): 2.57 cm LVIVS thickness (0.6 - 1.2 cm): 0.99 cm LVPW thickness (0.5 - 1.0 cm): 0.90 cm e': 0.12 m/s E - e': 5.94 LVOT Max Gradient: 3.12 mm[Hg] LVOT Area (cm2): 0.88 m/s Peak Velocity (LVOT): 0.88 m/s Mean Velocity (LVOT): 0.55 m/s LVOT Diameter 2.20 cm Left Ventricular Ejection Fraction: 73.64 % Left Atrium LA Volume Index (2D A2C): 34.57 ml/m2 Left Atrium Systolic Dimension: 4.16 cm Mitral Valve MV E to A Ratio: 1.18 Mitral Valve A-Wave Peak Velocity: 0.62 m/s Mitral Valve E-Wave Peak Velocity: 0.73 m/s Right Ventricle RV Internal Diastolic Dimension: 3.30 cm Aorta AO Root Diam: 3.23 cm Ascending Ao Diam: 2.67 cm Aortic Valve AoV Area (Peak Acosta): 2.78 cm2, 2.78 cm2 AoV Area (VTI): 2.58 cm2, 2.58 cm2 Peak Velocity(Antegrade Flow): 1.21 m/s Peak Gradient(Antegrade Flow): 5.88 mm[Hg] Mean Velocity(Antegrade Flow): 0.84 m/s Mean Gradient(Antegrade Flow): 3.27 mm[Hg] Velocity Time Integral: 30.66 cm Tricuspid Valve Peak Velocity (Regurgitant Flow): 2.18 m/s, 2.14 m/s, 2.61 m/s Pulmonic Valve Mean Gradient: 2.37 mm[Hg], 2.84 mm[Hg] Mean Velocity: 0.71 m/s, 0.79 m/s Peak Velocity: 1.12 m/s Peak Gradient: 4.62 mm[Hg], 5.49 mm[Hg] Right Atrium Right Atrium Systolic Pressure: 43.99 ml, 43.99 ml Dictated by: Deena Wallace M.D. on 08/18/2024 at 17:17 Approved by: Deena Wallace M.D. on 08/18/2024 at 17:19 Dictated By: Deena Wallace M.D. Signed By: 08/18/241720 DD/ 18 TD/TT: Napping Machine Operator: [place] [address] Cardiology Report Signed Patient: CHUY CHAPNI MR#: [id number] : 1970 Acct:[id number] Age/Sex: 54 / M ADM Date: 08/18/24 Loc: CARD Attending Dr: Christopher Tong M.D. Ordering Physician: Genevieve Tong M.D. Date of Service: 08/18/24 Procedure(s): CA ech o doppler complete Accession Number(s): [id number] cc: Genevieve Tong M.D. Patient Name: CHUY CHAPIN MR#: [id number] : 1970 Exam Date: 08/18/2024 Ordering Doctor: DR GENEVIEVE TONG . ECHOCARDIOGRAM REPORT PROCEDURE: CA ECHO D OPPLER COMPLETE INDICATIONS: Hyperte nsion, Fluid overload, hypothyroid COMPARISON: None. DESCRIPTION: COMPLET E ECHOCARDIOGRAM Real-time transthoracic echocardiography wit h 2D, M-mode, spectral and color flow Doppler performed. QUALITY: Technical q uality was good. LEFT VENTRICLE: Norm al chamber size. Normal left ventricular wall thickness. LV EF: Global left ventricular systolic function is normal; visually estimated ejection fraction is 60 to 65%. No significant wall motion abnormalities. DIASTOLIC: Normal diastolic function. ATRIAL SEPTUM: Inadequately seen. LEFT ATRIUM: Normal chamber size. RIGHT ATRIUM: Normal chamber size. RIGHT VENTRICLE: Nor mal chamber size. Normal right ventricular systolic function. TRICUSPID VALVE: Nor mal mobility and thickness. No stenosis with trivial regurgitation. No ev idence of pulmonary hypertension. RVSP 30mmHg MITRAL VALVE: Normal mobility and thickness. No evidence of mitral valve stenosis. There is n o mitral annular calcification. Trivial mitral regurgitation. AORTIC VALVE: Normal trileaflet appearance. No visible sclerosis. Normal leaflet mobility. No evidence of aortic valve stenosis. No aortic regurgitation. AORTIC ROOT: Normal diameter and appearance. PULMONIC VALVE: Norm al thickness and mobility. No stenosis. Trivial regurgitation. PERICARDIUM: No evid ence of pericardial effusion. IVC: Collapses with inspirations. Normal size. CONCLUSION: 1. Global left ventr icular systolic function is normal; visually estimated ejection fraction is 60 to 65% 2. Normal right ventricular size and systolic function 3. Normal diastolic function 4. The left atrium i s normal in size 5. No significant va lvular abnormalities Adult Echocardiograp hy Procedure Report Left Ventricle LVEDD (3.7 - 5.6 cm) : 4.33 cm LVESD (2.2 - 4.0 cm) : 2.57 cm LVIVS thickness (0.6 - 1.2 cm): 0.99 cm LVPW thickness (0.5 - 1.0 cm): 0.90 cm e': 0.12 m/s E - e': 5.94 LVOT Max Gradient: 3 .12 mm[Hg] LVOT Area (cm2): 0.88 m/s Peak Velocity (LVOT) : 0.88 m/s Mean Velocity (LVOT) : 0.55 m/s LVOT Diameter 2.20 cm Left Ventricular Eje ction Fraction: 73.64 % Left Atrium LA Volume Index (2D A2C): 34.57 ml/m2 Left Atrium Systolic Dimension: 4.16 cm Mitral Valve MV E to A Ratio: 1.18 Mitral Valve A-Wave Peak Velocity: 0.62 m/s Mitral Valve E-Wave Peak Velocity: 0.73 m/s Right Ventricle RV Internal Diastoli c Dimension: 3.30 cm Aorta AO Root Diam: 3.23 cm Ascending Ao Diam: 2.67 cm Aortic Valve AoV Area (Peak Acosta): 2.78 cm2, 2.78 cm2 AoV Area (VTI): 2.58 cm2, 2.58 cm2 Peak Velocity(Antegr simon Flow): 1.21 m/s Peak Gradient(Antegr simon Flow): 5.88 mm[Hg] Mean Velocity(Antegr simon Flow): 0.84 m/s Mean Gradient(Antegr simon Flow): 3.27 mm[Hg] Velocity Time Integr al: 30.66 cm Tricuspid Valve Peak Velocity (Regur gitant Flow): 2.18 m/s, 2.14 m/s, 2.61 m/s Pulmonic Valve Mean Gradient: 2.37 mm[Hg], 2.84 mm[Hg] Mean Velocity: 0.71 m/s, 0.79 m/s Peak Velocity: 1.12 m/s Peak Gradient: 4.62 mm[Hg], 5.49 mm[Hg] Right Atrium Right Atrium Systoli c Pressure: 43.99 ml, 43.99 ml Dictated by: Deena Wallace M.D. on 08/18/2024 at 17:17 Approved by: Deena Wallace M.D. on 08/18/2024 at 17:19 Dictated By: Deena Yepez M.D. Signed By: 08/18/241720 DD/ 18 TD/TT: Napping Machine Operator: PROF Norris(COMP METB) Reviewed date:01/02/2025 09:47:44 AM Interpretation: Performing Lab: Notes/Report: [facility] , Sodium 139 136-145 mmol/L Potassium 4.8 3.5-5.1 mmol/L Chloride 105 98-107 mmol/L Carbon Dioxide 27.2 21.0-32.0 mmol/L Anion Gap 11.6 Glucose 199 74-106 mg/dL Blood Urea Nitrogen 17.0 7.0-18.0 mg/dL Creatinine 1.24 0.70-1.30 mg/dL Estimated GFR ( Michelle >60 >=60 mL/min/1.73m 2 Estimated GFR (Non- Aileen >60 >=60 mL/min/1.73m 2 BUN Creatinine Ratio 13.7 Calcium 8.8 8.5-10.1 mg/dL Bilirubin Total 1.1 0.2-1.0 mg/dL Aspartate Amino Transferase 28 15-37 U/L Alanine Aminotransferase 22 16-63 U/L Alkaline Phosphatase 82 46-116 U/L Total Protein 7.4 6.4-8.2 g/dL Albumin Level 3.5 3.4-5.0 g/dL Globulin 3.9 Albumin Globulin Ratio 0.9 Performing Lab: see note - [facility] LB Result 3 Reviewed date:01/05/2025 08:10:13 PM Interpretation: Performing Lab: Notes/Report: [facility] , Result 3 See Below For Report Result 3 Few gram negative rods. Performing Lab: see note LC - [facility] LB Result 2 Reviewed date:01/05/2025 08:10:13 PM Interpretation: Performing Lab: Notes/Report: [facility] , Result 2 See Below For Report Result 2 Moderate number of gram positive cocci. Performing Lab: see note LC - [facility] LB White Blood Cells Reviewed date:01/05/2025 08:10:13 PM Interpretation: Performing Lab: Notes/Report: [facility] , White Blood Cells See Below For Report Wh ite Blood Cells White Blood Cells None seen White Bloo d Cells Performing Lab: see note LC - [facility] LB VC EXT Venous Reflux CLIFFORD LMT D Reviewed date:09/02/2024 07:01:00 PM Interpretation: Performing Lab: Notes/Report: Source Facility: [facility] [place] [address] [place] [address] Vein Report Signed Patient: CHUY CHAPIN MR#: [id number] : 1970 Acct:[id number] Age/Sex: 54 / M ADM Date: 09/02/24 Loc: VC Attending Dr: Genevieve Tong M.D. Ordering Physician: Genevieve Tong M.D. Date of Service: 09/02/24 Procedure(s): VC EXT Venous Reflux CLIFFORD LMTD Accession Number(s): [id number] cc: Genevieve Tong M.D. Patient Name: CHUY CHAPIN MR#: [id number] : 1970 Exam Date: 09/02/2024 Ordering Doctor: DR GENEVIEVE TONG . RADIOLOGY REPORT PROCEDURE: VC EXT VENOUS REFLUX CLIFFORD LMTD COMPARISON: None. INDICATIONS: R60.0 Localized Edema TECHNIQUE: Duplex imaging of the lower extremity to assess the deep and superficial venous system for the presence of deep or superficial venous incompetence and to document the location and severity of disease. The study includes evaluation of the great saphenous vein (GSV), anterior accessory saphenous vein (AASV) and small saphenous vein (SSV). Patient scanned in reverse Trendelenburg and standing. FINDINGS: RIGHT LOWER EXTREMITY: Saphenofemoral Junction Reflux: Yes 9.6mm 0.8 sec GSV: Diam (mm) Reflux/ Time (sec) Proximal Thigh 6.6 Yes 2.5 Mid Thigh 5.0 Yes 1.1 Distal Thigh 4.6 Yes 1.2 Prox Calf 3.9 No Mid Calf 3.6 Yes 0.5 Saphenopopliteal Junction Reflux: 5.5mm Yes 1.0 SSV: Proximal Calf 5.5 Yes 1.4 Mid Calf 3.6 Yes 0.7 AASV: Proximal Thigh 1.9 No Mid Thigh 2.5 Distal Thigh Thrombi: No acute or chronic thrombus visualized Compressibility: Normal Flow: Normal Preforator: Dist/med calf 3.1mm with 0s reflux. Tech Note: Incompetent GSV and SSV. Patent varicose vein prox/posterior calf 3.7mm with 1.6s reflux. Patent varicose vein mid/med calf 2.4mm with 0s reflux. LEFT LOWER EXTREMITY: Saphenofemoral Junction Reflux: Yes 10.2 mm 1.3 sec GSV: Diam (mm) Reflux/Time (sec) Proximal Thigh 5.5 Yes 1.3 Mid Thigh 5.3 Yes 1.7 Distal Thigh 4.9 Yes 1.1 Prox Calf 2.8 No Mid Calf 2.4 No Saphenopopliteal Junction Relux: 4.1 mm No SSV: Proximal Calf 4.1 No Mid Calf 3.2 No AASV: Proximal Thigh 1.4 No Mid Thigh No Distal Thigh Thrombi: No acute or chronic thrombus visualized Compressibility: Normal Flow: Normal Masonry Installer: Dist/med calf 3.2mm with 0s reflux. Tech Note: Incompetent GSV. Patent varicose vein mid/med calf 3.3mm with 1.2s reflux. Patent varicose vein prox/med calf 3.5m with 0.9s reflux. CONCLUSION: 1. Abnormally dilated and incompetent right great saphenous, left great saphenous, and right small saphenous veins along with associated incompetent branch saphenous varicosities. Dictated by: David Quevedo M.D. on 09/02/2024 at 10:05 Approved by: David Quevedo M.D. on 09/02/2024 at 10:42 Dictated By: David Quevedo M.D. Signed By: 09/02/24 1043 DD/ 104 TD/TT: Napping Machine Operator: [place] [address] Vein Report Signed Patient: CHUY CHAPIN MR#: [id number] : 1970 Acct:[id number] Age/Sex: 54 / M ADM Date: 09/02/24 Loc: VC Attending Dr: Christopher Tong M.D. Ordering Physician: Genevieve Tong M.D. Date of Service: 09/02/24 Procedure(s): VC EXT Venous Reflux CLIFFORD LMTD Accession Number(s): [id number] cc: Genevieve Tong M.D. Patient Name: CHUY CHAPIN MR#: [id number] : 1970 Exam Date: 09/02/2024 Ordering Doctor: DR GENEVIEVE TONG . RADIOLOGY REPORT PROCEDURE: VC EXT VE NOUS REFLUX CLIFFORD LMTD COMPARISON: None. INDICATIONS: R60.0 Localized Edema TECHNIQUE: Duplex im aging of the lower extremity to assess the deep and superficial venous s ystem for the presence of deep or superficial venous incompetence and to document the location and severity of disease. The study includes evaluation of the great saphenous vein (GSV), anterior accessory saphenous vein (AASV ) and small saphenous vein (SSV). Patient scanned in reverse Trendelenbur g and standing. FINDINGS: RIGHT LOWER EXTREMITY: Saphenofemoral Junct ion Reflux: Yes 9.6mm 0.8 sec GSV: Diam (mm) Reflu x/ Time (sec) Proximal Thigh 6.6 Yes 2.5 Mid Thigh 5.0 Yes 1.1 Distal Thigh 4.6 Yes 1.2 Prox Calf 3.9 No Mid Calf 3.6 Yes 0.5 Saphenopopliteal Anuj ction Reflux: 5.5mm Yes 1.0 SSV: Proximal Calf 5.5 Yes 1.4 Mid Calf 3.6 Yes 0.7 AASV: Proximal Thigh 1.9 No Mid Thigh 2.5 Distal Thigh Thrombi: No acute or chronic thrombus visualized Compressibility: Normal Flow: Normal Preforator: Dist/med calf 3.1mm with 0s reflux. Tech Note: Incompete nt GSV and SSV. Patent varicose vein prox/posterior calf 3.7mm with 1.6s refl ux. Patent varicose vein mid/med calf 2.4mm with 0s reflux. LEFT LOWER EXTREMITY: Saphenofemoral Junct ion Reflux: Yes 10.2 mm 1.3 sec GSV: Diam (mm) Reflu x/Time (sec) Proximal Thigh 5.5 Yes 1.3 Mid Thigh 5.3 Yes 1.7 Distal Thigh 4.9 Yes 1.1 Prox Calf 2.8 No Mid Calf 2.4 No Saphenopopliteal Anuj ction Relux: 4.1 mm No SSV: Proximal Calf 4.1 No Mid Calf 3.2 No AASV: Proximal Thigh 1.4 No Mid Thigh No Distal Thigh Thrombi: No acute or chronic thrombus visualized Compressibility: Normal Flow: Normal Masonry Installer: Dist/med calf 3.2mm with 0s reflux. Tech Note: Incompete nt GSV. Patent varicose vein mid/med calf 3.3mm with 1.2s reflux. Patent varic ose vein prox/med calf 3.5m with 0.9s reflux. CONCLUSION: 1. Abnormally dilate d and incompetent right great saphenous, left great saphenous, and right small saphenous veins along with associated incompetent branch saphenous varicosities. Dictated by: David Quevedo M.D. on 09/02/2024 at 10:05 Approved by: David Quevedo M.D. on 09/02/2024 at 10:42 Dictated By: David Quevedo M.D. Signed By: 09/02/24 1043 DD/ 1042 TD/TT: Napping Machine Operator: VC Romo EST Comprehensiv e Reviewed date:09/02/2024 07:01:00 PM Interpretation: Performing Lab: Notes/Report: Source Facility: [facility] [place] [address] [address] Vein Report Signed Patient: CHUY CHAPIN MR#: [id number] : 1970 Acct:[id number] Age/Sex: 54 / M ADM Date: 09/02/24 Loc: Attending Dr: Genevieve Tong M.D. Ordering Physician: Genevieve Tong M.D. Date of Service: 09/02/24 Procedure(s): Facility EST Comprehensive Accession Number(s): [id number] cc: Genevieve Tong M.D. Patient Name: CHUY CHAPIN MR#: [id number] : 1970 Exam Date: 09/02/2024 Ordering Doctor: DR GENEVIEVE TONG . RADIOLOGY REPORT PROCEDURE: [facility] EST [facility] - OFFICE VISIT INITIAL COMPARISON: None. PROGRESS NOTES: [age] year old male who presents with a 3 year history of bilateral lower extremity pain, swelling, heaviness, pain, itching. The patient's left leg symptoms are worse than the right. There has been a progression of symptoms over time with significant change 1 month ago with development of greater edema. This increases with prolonged but dependency. The patient describes an improvement with rest, elevation, exercise. The patient denies any signs and symptoms to suggest arterial ischemia. The patient describes a family history varicose veins on maternal side. The patient has drinking and smoking history of : recently stopped drinking; former smoker. Patient has a past medical history significant for hepatic fibrosis acute kidney injury anxiety/depression. The patient denies a history of deep venous thrombus or pulmonary embolus. See separate history and physical for medication list. No prior treatment for varicose or spider veins. No prior use of compression stockings. After review of nurse notes, history and physical exam I discussed at length the pathophysiology of venous hypertension and possible treatments, therapies and strategies available. We discussed at length the importance of elevating the lower extremities above the level of the heart, increased physical activity and compression stocking use. Ultrasound venous reflux study performed today was discussed at length with the patient. The report demonstrates abnormally dilated incompetent great saphenous veins bilaterally and right saphenous vein along with associated incompetent branch saphenous varicosities. PHYSICAL EXAM: The right leg demonstrates a few varicosities, several spider veins, no ulceration, mild edema, no skin discoloration. The left leg demonstrates a few varicosities, several spider veins, no ulceration, moderate edema, no skin discoloration. Both thighs, legs and feet were symmetrically warm to the touch. Good posterior tibial and dorsalis pedis pulses were present bilaterally. VEIN/VC Facility EST Comprehensive IMPRESSION: 1. Bilateral lower extremity venous insufficiency 2. Bilateral lower extremity varicose veins 3. Bilateral lower extremity subcutaneous edema 4. No flow significant arterial disease 5. CEAP: C3, EC, , MI PLAN: 1. Begin wearing compression stockings for 3 months with follow-up appointment at that time. 2. Elevated legs and increased physical activity symptomatic relief 3. Endovenous laser ablation of right great saphenous, left great saphenous, and right small saphenous veins. 4. Microfoam chemical ablation of bilateral lower extremity incompetent branch saphenous varicosities. Nurse notes, history and physical were reviewed and confirmed, see attached forms. The nurse was present throughout the physical exam and consultation Dictated by: David Quevedo M.D. on 09/02/2024 at 10:42 Approved by: David Quevedo M.D. on 09/02/2024 at 10:50 Dictated By: David Quevedo M.D. Signed By: 09/02/24 1051 DD/ 1050 TD/TT: Napping Machine Operator: [place] [address] Vein Report Signed Patient: CHUY CHAPIN MR#: [id number] : 1970 Acct:[id number] Age/Sex: 54 / M ADM Date: 09/02/24 Loc: VC Attending Dr: Christopher Tong M.D. Ordering Physician: Genevieve Tong M.D. Date of Service: 09/02/24 Procedure(s): VC Fac ility EST Comprehensive Accession Number(s): [id number] cc: Genevieve Tong M.D. Patient Name: CHUY CHAPIN MR#: [id number] : 1970 Exam Date: 09/02/2024 Ordering Doctor: DR GENEVIEVE TONG . RADIOLOGY REPORT PROCEDURE: [facility]AC[facility] EST COMPREHENSIVE VEIN C[facility] - OFFICE VISIT INITIAL COMPARISON: None. PROGRESS NOTES: [age] year old male who presents with a 3 year history of bilateral lower extremity pain, swel ling, heaviness, pain, itching. The patient's left leg symptoms are worse t harman the right. There has been a progression of symptoms over time with signi ficant change 1 month ago with development of greater edema. This increase s with prolonged but dependency. The patient describes an improvement with res t, elevation, exercise. The patient denies any signs and symptoms to suggest arterial ischemia. The patient describe s a family history varicose veins on maternal side. The patient has drinking and smoking history of : recently stopped drinking; former smoker. Davina nt has a past medical history significant for hepatic fibrosis acute kidne y injury anxiety/depression. The patient denies a history of deep venous throm bus or pulmonary embolus. See separate history and physical for medication list. No prior treatment for varicose or spider v eins. No prior use of compression stockings. After review of nurs e notes, history and physical exam I discussed at length the pathophysiology of venous hypertension and possible treatments, therapies and strategies avail able. We discussed at length the importance of elevating the lower extremitie s above the level of the heart, increased physical activity and marci tony stocking use. Ultrasound venous re flux study performed today was discussed at length with the patient. The rep ort demonstrates abnormally dilated incompetent great saphenous veins bilaterally and right saphenous vein along with associated incompetent branch saphenous varicosities. PHYSICAL EXAM: The right leg demons trates a few varicosities, several spider veins, no ulceration, mild fanny ma, no skin discoloration. The left leg demonst rates a few varicosities, several spider veins, no ulceration, moderate edema, no skin discoloration. Both thighs, legs an d feet were symmetrically warm to the touch. Good posterior tibial and dorsalis pedis pulses were present bilaterally. V EIN/VC Facility EST Comprehensive IMPRESSION: 1. Bilateral lower extremity venous insufficiency 2. Bilateral lower extremity varicose veins 3. Bilateral lower extremity subcutaneous edema 4. No flow significa nt arterial disease 5. CEAP: C3, EC, , MI PLAN: 1. Begin wearing compression stockings for 3 months with follow-up appointment at that time. 2. Elevated legs and increased physical activity symptomatic relief 3. Endovenous laser ablation of right great saphenous, left great saphenous, and right small saph enous veins. 4. Microfoam chemica l ablation of bilateral lower extremity incompetent branch saphenous varicosities. Nurse notes, history and physical were reviewed and confirmed, see attached forms. The nurse was presen t throughout the physical exam and consultation Dictated by: David Quevedo M.D. on 09/02/2024 at 10:42 Approved by: David Quevedo M.D. on 09/02/2024 at 10:50 Dictated By: David Quevedo M.D. Signed By: 09/02/24 1051 DD/ 1050 TD/TT: Napping Machine Operator: CBC AUTO DIFF Reviewed date:08/16/2024 08:21:54 PM Interpretation: Performing Lab: Notes/Report: [facility] , White Blood Count 4.8 4.0-11.0 10 3/uL Red Blood Count 4.25 4.70-6.10 10 6/uL Hemoglobin 13.6 14.0-18.0 g/dL Hematocrit 41.2 42.0-54.0 % Mean Corpuscular Volume 96.9 80.0-94.0 fL Mean Corpuscular Hemoglobin 32.0 25.9-34.0 pg Mean Corpuscular HGB Conc 33.0 29.9-35.2 g/dL Red Cell Distribution Width 13.6 11.0-15.0 % Platelet Count 103 150-450 10 3/uL Mean Platelet Volume 11.5 9.5-13.5 fL Neutrophils Percent Auto 45.0 43.0-75.0 % Lymphocytes Percent Auto 37.0 20.5-60.0 % Monocytes Percent Auto 11.3 1.7-12.0 % Eosinophils Percent Auto 4.8 0.9-7.0 % Basophils Percent Auto 0.6 0.2-2.0 % Immature Granulocytes Pct Auto 1.3 0.0-0.5 % Neutrophils Absolute Auto 2.1 1.4-6.5 10 3/uL Lymphocytes Absolute Auto 1.8 1.2-3.8 10 3/uL Monocytes Absolute Auto 0.5 0.3-0.8 10 3/uL Eosinophils Absolute Auto 0.2 0.0-0.7 10 3/uL Basophils Absolute Auto 0.0 0.0-0.1 10 3/uL Immature Granulocytes Abs Auto 0.06 0.00-0.03 10 3/uL Performing Lab: see note ML - [facility] LB CT PELVIS W CON Reviewed date:09/01/2024 06:40:14 PM Interpretation: Performing Lab: Notes/Report: Source Facility: [place] [address] CT Scan Report Signed Patient: CHUY CHAPIN MR#: [id number] : 1970 Acct:[id number] Age/Sex: 54 / M ADM Date: 08/31/24 Loc: CT Attending Dr: Genevieve Tong M.D. Ordering Physician: Genevieve Tong M.D. Date of Service: 08/31/24 Procedure(s): CT pelvis w con Accession Number(s): [id number] cc: Genevieve Tong M.D. [place] [address] Patient Name: CHUY CHAPIN MRN: [facility]:[id number] date: 1970 Sex: M Assigned Patient Location: CT Current Patient Location: Accession/Order Number: [id number] Exam Date: 08/31/2024 09:35 Report Date: 09/01/2024 06:59 At the request of: GENEVIEVE TONG Procedure: CT pelvis w con EXAMINATION: CT pelvis w con HISTORY: Edema R60.9 ; bilateral lower extremity edema COMPARISON: No relevant comparison available. TECHNIQUE: Axial, Coronal, and Sagittal images were obtained without and/or with IV contrast as indicated by examination type. Dose reduction techniques were achieved by using automated exposure control and/or adjustment of mA and/or kV according to patient size and/or use of iterative reconstruction technique FINDINGS: BOWEL: No abnormality of the visible bowl. LYMPH NODES: No adenopathy. URINARY BLADDER: No visible focal wall thickening, lesion, or calculus. PELVIC ORGANS: No visible mass. Pelvic organs appropriate for patient age. ANTERIOR WALL: No hernia. BONES: No bone lesion or fracture. OTHER: Mild-moderate atherosclerotic disease of distal aorta and common iliac arteries. Unremarkable iliac veins and distal inferior vena cava. Mild edema within the retroperitoneal fat and pelvic fat; nonspecific. CT/CT pelvis w con IMPRESSION: 1. No abnormal or suspicious findings to account for patient's bilateral lower extremity edema. 2. Mild haziness in the fat, likely edema within the distal retroperitoneum and lower pelvis; nonspecific. 3. Mild to moderate atherosclerotic disease. Electronically authenticated by: DAVID QUEVEDO Date: 09/01/2024 06:59 Dictated By: David Quevedo M.D. Signed By: 09/01/24700 DD/ 8 TD/TT: Napping Machine Operator: [place] [address] CT Scan Report Signed Patient: CHUY CHAPIN MR#: [id number] : 1970 Acct:[id number] Age/Sex: 54 / M ADM Date: 08/31/24 Loc: CT Attending Dr: Christopher Tong M.D. Ordering Physician: Genevieve Tong M.D. Date of Service: 08/31/24 Procedure(s): CT pel vis w con Accession Number(s): [id number] cc: Genevieve Tong M.D. [place] [address] Patient Name: CHUY CHAPIN MRN: [facility]:[id number] date: 1970 Sex: M Assigned Patient Loc ation: CT Current Patient Location: Accession/Order Numb er: [id number] Exam Date: 09:35 Report Date: 09/01/2024 06:59 At the request of: GENEVIEVE TONG Procedure: CT pelvis w con EXAMINATION: CT pelv is w con HISTORY: Edema R60.9 ; bilateral lower extremity edema COMPARISON: No relev ant comparison available. TECHNIQUE: Axial, Co too, and Sagittal images were obtained without and/or with IV contrast as indicated by examination type. Dose reduction techniques were achieved by usi ng automated exposure control and/or adjustment of mA and/or kV according to patient size and/or use of iterative reconstruction technique FINDINGS: BOWEL: No abnormalit y of the visible bowl. LYMPH NODES: No adenopathy. URINARY BLADDER: No visible focal wall thickening, lesion, or calculus. PELVIC ORGANS: No vi sible mass. Pelvic organs appropriate for patient age. ANTERIOR WALL: No hernia. BONES: No bone lesio n or fracture. OTHER: Mild-moderate atherosclerotic disease of distal aorta and common iliac arteries. Unremarkab le iliac veins and distal inferior vena cava. Mild edema within the retroperi toneal fat and pelvic fat; nonspecific. C T/CT pelvis w con IMPRESSION: 1. No abnormal or suspicious findings to account for patient's bilateral lower extremity edema. 2. Mild haziness in the fat, likely edema within the distal retroperitoneum and lower pelvis; nonspecific. 3. Mild to moderate atherosclerotic disease. Electronically authenticated by: DAVID QUEVEDO Date: 09/01/2024 06:59 Dictated By: David Quevedo M.D. Signed By: 09/01/24 0701 DD/ 0659 TD/TT: Napping Machine Operator: XR hip LT 2V w/ pelvis Reviewed date:01/23/2025 03:18:03 PM Interpretation: Performing Lab: Notes/Report: Source Facility: [place] [address] XRay Report Signed Patient: CHUY CHAPIN MR#: [id number] : 1970 Acct:[id number] Age/Sex: 54 / M ADM Date: 01/21/25 Loc: RAD Attending Dr: Genevieve Tong M.D. Ordering Physician: Genevieve Tnog M.D. Date of Service: 01/21/25 Procedure(s): XR hip LT 2V w/ pelvis Accession Number(s): [id number] cc: Genevieve Tong M.D. [place] [address] Patient Name: CHUY CHAPIN MRN: [id number] date: 1970 Sex: M Assigned Patient Location: RAD Current Patient Location: RAD Accession/Order Number: [id number] Exam Date: 01/21/2025 11:58 Report Date: 01/21/2025 12:01 At the request of: GENEVIEVE TONG MD Procedure: XR hip LT 2V w/ pelvis LEFT HIP WITH AP PELVIS - 3 views COMPARISON: CT 09/01/2024 CLINICAL DATA: Left hip pain for the past 5 days after getting out of a car. AP view of the pelvis as well as AP and frog-lateral views of the left hip were obtained. No fracture or dislocation is identified. There is slight narrowing of the superior hip joint spaces. Minor marginal spurring is seen. The SI joints are intact. No soft tissue abnormalities are present. XR/XR hip LT 2V w/ pelvis IMPRESSION: MINIMAL DEGENERATIVE CHANGE. NO ACUTE BONY FINDINGS. Impression dictated by: Quita Madrid M.D.01/21/2025 12:01 PM Dictation Location: [place] [address] Electronically authenticated by: [id number] Y Date: 01/21/2025 12:01 Dictated By: Quita Madrid M.D. Signed By: 01/21/25 1204 DD/ 1201 TD/TT: Napping Machine Operator: [place] [address] XRay Report Signed Patient: CHUY CHAPIN MR#: [id number] : 1970 Acct:[id number] Age/Sex: 54 / M ADM Date: 01/21/25 Loc: RAD Attending Dr: Christopher Tong M.D. Ordering Physician: Genevieve Tong M.D. Date of Service: 01/21/25 Procedure(s): XR hip LT 2V w/ pelvis Accession Number(s): [id number] cc: Genevieve Tong M.D. [address] [address] Patient Name: CHUY CHAPIN MRN: [id number] date: 1970 Sex: M Assigned Patient Loc ation: RAD Current Patient Loca tion: RAD Accession/Order Numb er: [id number] Exam Date: 01/21/2025 11:58 Report Date: 01/21/2025 12:01 At the request of: GENEVIEVE TONG MD Procedure: XR hip LT 2V w/ pelvis LEFT HIP WITH AP PEL VIS - 3 views COMPARISON: CT 09/01/2024 CLINICAL DATA: Left hip pain for the past 5 days after getting out of a car. AP view of the pelvi s as well as AP and frog-lateral views of the left hip were obtained. No fr acture or dislocation is identified. There is slight narrowing of the sup erior hip joint spaces. Minor marginal spurring is seen. The SI joints are in tact. No soft tissue abnormalities are present. X R/XR hip LT 2V w/ pelvis IMPRESSION: MINIMAL DEGENERATIVE CHANGE. NO ACUTE BONY FINDINGS. Impression dictated by: Quita Madrid M.D.01/21/2025 12:01 PM Dictation Location: [place] [address] Electronically authenticated by: [id number] Y Date: 01/21/2025 12:01 Dictated By: Quita Madrid M.D. Signed By: 01/21/25 1204 DD/ 1201 TD/TT: Napping Machine Operator: [facility] Reviewed date:01/12/2025 09:21:59 PM Interpretation: Performing Lab: Notes/Report: Specimen Comment: [facility]ox[facility], [facility] FLEX or MAT drug testin Specimen Comment: -Technical component - Data analysis performed at Specimen Comment: [facility], [address]. Specimen Comment: [phone]. Investment Counselor Marisela Ambriz MD [facility] , Summary Report (Summary) FINAL . Mirtazapine PRESENT Drug Present For clinical consultation, please call . Creatinine 66 mg/dL >=20 [address] [place], [place] [id number] Performed at: [facility] Declared Medications: Investment Counselor: Ariana Migue Modi, Phone: [phone] Test Result Flag Units Ref Range TOXASSURE COMP DRUG ANALYSIS,UR Medication list was not provided. Naltrexone PRESENT Test Result Flag Units Performing Lab: see note - [facility] LB Lower Respiratory Culture Reviewed date:01/05/2025 08:10:13 PM Interpretation: Performing Lab: Notes/Report: [facility] , Lower Respiratory Culture See Below For Report Lower Respiratory Culture WILL FOLLOW Lower Respiratory Culture Routine respiratory mattie Lower Respiratory Culture WILL FOLLOW Lower Respiratory Culture Performed at: [facility] Lower Respiratory Culture WILL FOLLOW Lower Respiratory Culture [address] [place], [place] [id number] Lower Respiratory Culture WILL FOLLOW Lower Respiratory Culture Investment Counselor: Gavin Casas PhD, Phone: [phone] Lower Respiratory Culture WILL FOLLOW Performing Lab: see note LC - [facility] LB SEE REPORT - [employer] Associate Id information not found for OBX-specific print producer legend Gram Stain Evaluation Reviewed date:01/05/2025 08:10:13 PM Interpretation: Performing Lab: Notes/Report: [facility] , Gram Stain Evaluation See Below For Report Gram Stain Evaluation This specimen is of good quality and is acceptable for routine Gram Stain Evaluation bacterial culture. Gram Stain Evaluation This specimen is of good quality and is acceptable for routine Performing Lab: see note LC - [facility] LB Result 4 Reviewed date:01/05/2025 08:10:13 PM Interpretation: Performing Lab: Notes/Report: [facility] , Result 4 See Below For Report Few gram variable cocci Result 4 Performing Lab: see note LC - [facility] LB Result 1 Reviewed date:01/05/2025 08:10:13 PM Interpretation: Performing Lab: Notes/Report: [facility] , Result 1 See Below For Report Few gram positive rods. Result 1 Performing Lab: see note LC - [facility] LB Epithelial Cells Reviewed date:01/05/2025 08:10:13 PM Interpretation: Performing Lab: Notes/Report: [facility] , Epithelial Cells See Below For Report Few Epithelial Cells Performing Lab: see note LC - [facility] LB Reason For Referral No Information Medications Medication SIG (Take, Route, Frequency, Duration) Notes Start Date End Date Status Vivitrol Active Albuterol Sulfate HFA 108 (90 Base) [...] 1 tablet Orally at bedtime 04/07/2024 Active Meloxicam 15 MG 1 tablet Orally [...] a day for 30 days 11/05/2024 Active Social History Tobacco Use: Social History Observation Description Date Details (start date - stop date) Former Smoker NA - 12/10/2012 Tobacco Use/Smoking Question Answer Notes Patient is a former smoker When did you stop smoking? 12/10/2012 How long has it been since you last smoked? > 10 years Alcohol Screen (Audit-C) Question Answer Notes Did you have a drink contain ing alcohol in the past year? Yes How often did you have 6 or more drinks on one occasion in the past year? Never (0 point) How many drinks did you have on a typical day when you were drinking in the past year? 1 or 2 drinks (0 point) How often did you have a dri nk containing alcohol in the past year? Monthly (2 points) Points 2 Interpretation Negative AUDIT-C (Standard) Question Answer Notes Did you have a drink containing alcohol in the p ast year? No Points 0 Interpretation Negative Problems Problem Type SNOMED Code ICD Code Onset Dates Problem Status W/U Status Risk Notes Problem 11469808 Hypothyroidism, unspecified (E03.9) Active confirmed Problem Sebaceous cyst (846508395) Sebaceous cyst (L72.3) Active confirmed Problem Palpitations (39289913) Palpitations (R00.2) Active confirmed Problem Hyperlipidaemia (06701028) Hyperlipemia (E78.5) Active confirmed Problem Hypertension (62789066) Hypertension (I10) Active confirmed Problem Anxiety (08988705) Anxiety (F41.9) Active confi rmed Problem Hypothyroid (87149548) Hypothyroid (E03.9) Active confirmed Problem Anemia (791647931) Anemia (D64.9) Active confir med Problem Elevated liver enzymes level (886481817) Elevated liver enzymes (R74.8) Active confirmed Problem Hemochromatosis (463128043) Hemochromatosis (E83.119) Active confirmed Problem Hearing loss (20622767) Hearing loss (H91.90) Active confirmed Problem Fatty liver (497401169) Fatty liver (K76.0) Active confirmed Problem Arthralgia of the pelvic region and thigh (079185293) Left hip pain (M25.552) Active confirmed Problem Diverticulitis (34098471) Diverticulitis (K57.92) Active confirmed Problem Thrombocytopenia (927910430) Thrombocytopenia (D69.6) Active confirmed Problem Rotator cuff tear (017834712) Rotator cuff tear (M75.100) Active confirmed Problem Gastroenteritis (71687829) Gastroenteritis (K52.9) Active confirmed Problem Overweight (160689589) Over weight (E66.3) Active confirmed Problem Acute renal failure syndrome (66271130) Acute kidney failure (N17.9) Active confirmed Problem Nmrtn-3-uvfqsrdnnst phenotype PiMS (finding) (493109484) Alpha 1-antitrypsin PiMS phenotype (R79.9) Active confirmed Problem Type II diabetes mellitus without complication (088562592) Diabetes (E11.9) Active confirmed Problem Diabetes mellitus (06855102) Diabetes mellitus (E11.9) Active confirmed Problem Hepatic fibrosis (69388082) Hepatic fibrosis (K74.00) Active confirmed Vital Signs Heart Rate 77 /min 08/16/2024 Oximetry 97 % 01/03/2025 Blood pressure diastolic 70 mm Hg 01/21/2025 Height 70 in 01/21/2025 Blood pressure systolic 110 mm Hg 01/21/2025 Weight 211 lbs 01/21/2025 BMI 30.27 kg/m2 01/21/2025 Procedures Procedure Date Ordered Date Performed Result Body Sit e CARDIO Echocardiogram 08/16/2024 N/A Encounters Encounter Location Date Provider Diagnosis [facility] [address] [place] [address] 01/05/2025 Bobo [facility] [address] [place] [address] 01/06/2025 Bobo Tong Medication managemen t Z79.899 [facility] [address] [place] [address] 01/21/2025 Bobo Tong [facility] [address] [place] [address] 01/23/2025 Bobo Tong [facility] [address] [place] [address] 09/01/2024 Bobo Tong [facility] [address] [place] [place] [address] 09/13/2024 Bobo Tong Hypertension I10 [facility] [address] [place] [address] 11/05/2024 Bobo Barbosasylvie [facility] [address] [place] [address] 12/16/2024 Bobo Tong [facility] [address] [place] [address] 12/31/2024 Bobo Tong Acute bronchitis, unspecified organism J20.9 [facility] [address] [place] [address] 01/02/2025 Bobo Barbosasylvie [facility] [address] [place] [address] 07/30/2024 Bobo Tong [facility] [address] [place] [address] 08/02/2024 Bobo Barbosasylvie [facility] [address] [facility] [place] [address] 08/16/2024 Bobo Tong [facility] [address] [facility] [place] [place] [address] 08/17/2024 Bobo Ran [facility] [address] [place] [address] 08/18/2024 Bobo Familiasylvie [facility] [address] [facility] [place] [address] 08/24/2024 Bobo Tong Edema R60.9 [facility] [address] [place] [address] 04/30/2024 GENEVIEVE RAN [facility] [address] [place] [address] 05/11/2024 GENEVIEVE RAN [facility] [address] [place] [address] 06/14/2024 Bobo Tong Fatty liver K76.0 an d Elevated liver enzymes R74.8 [facility] [address] [place] [address] 06/15/2024 Bobo Tong [facility] [address] [place] [address] 06/22/2024 Bobo Hoy [facility] [address] [place] [address] 07/13/2024 Bobo Hoy [address] [place] [address] 06/24/2024 Bobo Hoy Thrombocytopenia D69 .[address] [address] 08/16/2024 Bobo Hoy Hypertension I10 ; F luid overload E87.70 ; Hypothyroid E03.9 and Anxiety F41.[address] [address] 01/03/2025 Bobo Hoy Acute bronchitis, unspecified organism J20.[address] [place] [address] 01/17/2025 Bobo Hoy Hypertension I10 and Diabetes E11.[address] [place] [address] 12/13/2024 Bobo Hoy Hypertension I10 [address] [place] [address] 12/29/2024 Bobo Hoy Acute bronchitis, unspecified organism J20.[address] [address] 01/21/2025 Bobo Hoy Left hip pain M25.[address] [address] 12/16/2024 Bobo Hoy Hypertension I10 Assessments Encounter Date Diagnosis (ICD Code) Assessment Notes Treatment Notes Treatment Clinical Notes Section Notes 12/13/2024 Hypertension (ICD-10 - I10) 12/16/2024 Hypertension (ICD-10 - I10) 12/29/2024 Acute bronchitis, unspecified organism (ICD-10 - J20.9) Rest and drink more liquids, especially water. You may use a humidifier or vaporizer to help keep the drainage moist. Tetn-adu-yvmzaer Nasal Saline may help the stuffy and runny nose. Use Ibuprofen and or Tylenol as needed for fever, chills, body aches or pain. Children 5 years old should not be given pxxe-onw-yptxjee cough and cold medications such as guaifenesin and dextromethorphan. If you're over age 5, you may try pqss-zid-xpkyxss cold medications such as guaifenesin and dextromethorphan, or multi-symptom cold reliever such as Dayquil to help reduce the symptoms. Antibiotics have been prescribed. You should take these until completed and follow the directions. Antibiotics can sometimes cause upset stomach, and in rare cases, serious allergic reactions or serious gastrointestinal problems. If you start having severe abdominal pain, severe vomiting, or bloody diarrhea, you should be reevaluated by your physician or urgent care immediately. Follow up with your Primary Care Provider or return to clinic if symptoms do not improve within 3-5 days. If you develop severe symptoms such as shortness of breath, repeated vomiting, coughing up blood, or chest pain you should go to the emergency room or call 911 01/03/2025 Acute bronchitis, unspecified organism (ICD-10 - J20.9) Rest and drink more liquids, especially water. You may use a humidifier or vaporizer to help keep the drainage moist. Mncw-bms-qehdhez Nasal Saline may help the stuffy and runny nose. Use Ibuprofen and or Tylenol as needed for fever, chills, body aches or pain. Children 5 years old should not be given vfqq-ear-kuuwzvb cough and cold medications such as guaifenesin and dextromethorphan. If you're over age 5, you may try zyfy-yqz-fwkomzl cold medications such as guaifenesin and dextromethorphan, or multi-symptom cold reliever such as Dayquil to help reduce the symptoms. Antibiotics have been prescribed. You should take these until completed and follow the directions. Antibiotics can sometimes cause upset stomach, and in rare cases, serious allergic reactions or serious gastrointestinal problems. If you start having severe abdominal pain, severe vomiting, or bloody diarrhea, you should be reevaluated by your physician or urgent care immediately. Follow up with your Primary Care Provider or return to clinic if symptoms do not improve within 3-5 days. If you develop severe symptoms such as shortness of breath, repeated vomiting, coughing up blood, or chest pain you should go to the emergency room or call 911 01/17/2025 Hypertension (ICD-10 - I10) 01/17/2025 Diabetes (ICD-10 - E11.9) 01/21/2025 Left hip pain (ICD-10 - M25.552) 06/24/2024 Thrombocytopenia (ICD-10 - D69.6) 08/16/2024 Hypertension (ICD-10 - I10) 08/16/2024 Fluid overload (ICD-10 - E87.70) 06/14/2024 Fatty liver (ICD-10 - K76.0) 06/14/2024 Elevated liver enzymes (ICD-10 - R74.8) 08/24/2024 Edema (ICD-10 - R60.9) 09/13/2024 Hypertension (ICD-10 - I10) 12/31/2024 Acute bronchitis, unspecified organism (ICD-10 - J20.9) 01/06/2025 Medication management (ICD-10 - Z79.899) 08/16/2024 Hypothyroid (ICD-10 - E03.9) 08/16/2024 Anxiety (ICD-10 - F41.9) Plan Of Treatment Pending Test Test Name Order Date CMP (COMPLETE METABOLIC PANEL) 3 CMP (COMPLETE METABOLIC PANEL) 4 HEMOGLOBIN A1C (GLYCO) 08/08/2023 INSULIN, TOTAL 08/08/2023 LIPID PANEL (CHOL/TRIG/HDL/LDL) 08/08/20 23 CBC WITH DIFF 08/08/2023 CBC WITH DIFF 08/16/2024 PSA, PROSTATE-SPECIFIC ANTIGEN 3 CARDIO Echocardiogram 08/16/2024 COMPREHENSIVE METABOLIC PROFILE WITH GFR 04/12/2024 CMP - Comprehensive Metabolic Panel 03/2024 CMP - Comprehensive Metabolic Panel 12/12 CBC W/AUTO DIFF 04/12/2024 CBC W/AUTO DIFF 08/12/2023 High Sensitivity Troponin 08/16/2024 COMPLIANCE DRUG SCREEN 01/06/2025 US NICOLE DOP LEG LT 08/16/2024 US NICOLE DOP LEG RT 08/16/2024 XR HIP LT 2 3V W PELVIS 01/21/2025 THYROID PANEL (T4/TSH/FREE T3) 3 THYROID PANEL (T4/TSH/FREE T3) 3 THYROID PANEL (T4/TSH/FREE T3) 3 THYROID PANEL (T4/TSH/FREE T3) 4 Lipid Panel 03/19/2024 Lipid Panel 04/12/2024 Gram Stain w/Sputum Cult Rflx 12/31/2024 Insurance Providers Payer Name Payer Address Payer Phone Subscriber Number Group Number Insured Name Patient Relationship to Insured Coverage Start Date Coverage End Date [employer] [address] [place] [address] [id number] Chuy Chapin Self - patient is the insured Medications Administered Medication Instructions Date of Administration Dosage Notes Ketorolac Tromethamine 01/21/2025 60 mg Triamcinolone 40 mg/ml 01/03/2025 120 mg Triamcinolone 40 mg/ml 01/21/2025 80 mg Medical (General) History Medical History History ICD Code Over weight E66.3 Hypertension I10 Fatty liver K76.0 Gastroenteritis K52.9 Hepatic fibrosis K74.00 Elevated liver enzymes R74.8 Hemochromatosis E83.119 Alpha 1-antitrypsin PiMS phenotype R79.9 Acute kidney failure N17.9 Diverticulitis K57.92 Anxiety F41.9 Palpitations R00.2 Rotator cuff tear M75.100 Sebaceous cyst L72.3 Surgical History Surgery Date(Month/Year) Shoulder Surgery- Right tube in Rt ear 07/03
[2025-04-29 20:03] VITALS: BP 138/90; PULSE 100; TEMP 36.5; O2SAT 95; BMI 30.1
--- NOTE | 2025-04-29 20:19 | ED.GENADUL1 ---
HPI HPI - General Adult General Chief complaint: Extremity Problem, Nontraumatic Stated complaint: recent vein surgery on R leg, red area at incision Time Seen by Provider: 04/29/25 19:53 Source: patient Mode of arrival: walk-in Limitations: no limitations History of Present Illness HPI narrative: This 54-year-old male who has a history of bilateral lower extremity varicose veins had ablative therapy in the distal right lower leg 10 days ago. He states that he had an ultrasound after that which was normal and today he noticed redness and induration distal to the injection site. He denies chills or fever. He denies calf pain. Related Data Home Medications ?Medication ?Instructions ?Recorded ?Confirmed acamprosate 333 mg tablet,delayed 999 mg PO Q8H 06/22/24 07/06/24 release carvedilol 6.25 mg tablet 6.25 mg PO QPM 06/22/24 07/06/24 liothyronine 5 mcg tablet 5 mcg PO DAILY 06/22/24 04/29/25 mirtazapine 45 mg tablet 45 mg PO DAILY 06/22/24 04/29/25 risperidone 1 mg tablet 1 mg PO DAILY 06/22/24 04/29/25 rosuvastatin 5 mg tablet 5 mg PO DAILY 06/22/24 04/29/25 meloxicam 15 mg tablet mg 04/29/25 Previous Rx's ?Medication ?Instructions ?Recorded cephalexin 500 mg capsule 500 mg PO TID 10 days #30 caps 04/29/25 Allergies Allergy/AdvReac Type Severity Reaction Status Date / Time morphine Allergy Eye Verified 04/29/25 20:09 swelling Opioid HPI Opioid Management Most Recent Opioid Data: Urine Drug Screen Interp, (.) Final 01/07/25, 06:45 Review of Systems ROS Status of ROS 10 or more systems reviewed and unremarkable except as noted in history and below [facility] Medical History Varicose veins of bilateral lower extremities with pain ?I83.813 - Varicose veins of bilateral lower extremities with pain (ICD-10) Edema, lower extremity ?R60.0 - Localized edema (ICD-10) Depression ?F32.A - Depression, unspecified (ICD-10) Panic attacks ?F41.0 - Panic disorder [episodic paroxysmal anxiety] (ICD-10) Anxiety ?F41.9 - Anxiety disorder, unspecified (ICD-10) Hypothyroidism ?E03.9 - Hypothyroidism, unspecified (ICD-10) 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) ?F10.21 - Alcohol dependence, in remission (ICD-10) Rotator cuff tear ?M75.100 - Unspecified rotator cuff tear or rupture of unspecified shoulder, not specified as traumatic (ICD-10) Heart palpitations ?R00.2 - Palpitations (ICD-10) Diverticulitis ?K57.92 - Diverticulitis of intestine, part unspecified, without perforation or abscess without bleeding (ICD-10) Hepatic fibrosis ?K74.00 - Hepatic fibrosis, unspecified (ICD-10) Gastroenteritis ?K52.9 - Noninfective gastroenteritis and colitis, unspecified (ICD-10) Serous otitis media ?H65.90 - Unspecified nonsuppurative otitis media, unspecified ear (ICD-10) Post-traumatic osteoarthritis, right shoulder ?M19.111 - Post-traumatic osteoarthritis, right shoulder (ICD-10) Hypertension ?I10 - Essential (primary) hypertension (ICD-10) High cholesterol ?E78.00 - Pure hypercholesterolemia, unspecified (ICD-10) Hereditary hemochromatosis ?E83.110 - Hereditary hemochromatosis (ICD-10) Fatty liver ?K76.0 - Fatty (change of) liver, not elsewhere classified (ICD-10) Hearing loss ?H91.90 - Unspecified hearing loss, unspecified ear (ICD-10) Anemia ?D64.9 - Anemia, unspecified (ICD-10) Acute kidney injury ?N17.9 - Acute kidney failure, unspecified (ICD-10) Abnormal AST and ALT ?R74.8 - Abnormal levels of other serum enzymes (ICD-10) Dysfunction of right eustachian tube ?H69.91 - Unspecified Eustachian tube disorder, right ear (ICD-10) Surgical History H/O shoulder surgery ?Z98.890 - Other specified postprocedural states (ICD-10) History of liver biopsy ?Z98.890 - Other specified postprocedural states (ICD-10) Family History Other Family history of cancer Family history of diabetes mellitus Family history of hypertension Heart disease Pain due to varicose veins of both lower extremities Social History Within the past year, how often did you have a drink containing alcohol: never Score interpretation: A score less than 4 is consistent with normal alcohol consumption. 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 Patient has erythema with underlying brawny edema surrounding the injection site posteriorly over the distal right lower leg. He does not have any palpable cords. There is no ascending lymphangitis. Constitutional Vital Signs, click to edit/add: Last Vital Signs Temp 97.7 F 04/29/25 20:03 Pulse 100 H 04/29/25 20:03 Resp 18 04/29/25 20:03 BP 138/90 04/29/25 20:03 Pulse Ox 95 04/29/25 20:03 O2 Del Method Room Air 04/29/25 20:03 Course Vital Signs Vital signs: Vital Signs Temperature 97.7 F 04/29/25 20:03 Pulse Rate 100 H 04/29/25 20:03 Respiratory Rate 18 04/29/25 20:03 Blood Pressure 138/90 04/29/25 20:03 Pulse Oximetry 95 04/29/25 20:03 Oxygen Delivery Method Room Air 04/29/25 20:03 Temperature 97.7 F 04/29/25 20:03 Pulse Rate 100 H 04/29/25 20:03 Respiratory Rate 18 04/29/25 20:03 Blood Pressure 138/90 04/29/25 20:03 Pulse Oximetry 95 04/29/25 20:03 Oxygen Delivery Method Room Air 04/29/25 20:03 Medical Decision Making MDM Narrative Medical decision making narrative: Focused physical examination of the right lower extremity is carried out. There is some surrounding reaction with erythema around the injection site distally in the posterior aspect of the right lower leg. This could represent early cellulitis for which she is placed on Keflex. He is advised to contact his treating physician after the weekend for further evaluation and may return to the ED anytime for worsening symptoms. Discharge Plan Discharge Chief Complaint: Extremity Problem, Nontraumatic Clinical Impression: Cellulitis Patient Disposition: Home, Self-Care Time of Disposition Decision: 20:20 Condition: Good Mode of Transportation: Private Vehicle Prescriptions / Home Meds: New cephalexin 500 mg capsule 500 mg PO TID 10 Days Qty: 30 0RF No Action meloxicam 15 mg tablet acamprosate 333 mg tablet,delayed release (DR/EC) 999 mg PO Q8H carvedilol 6.25 mg tablet 6.25 mg PO QPM liothyronine 5 mcg tablet 5 mcg PO DAILY mirtazapine 45 mg tablet 45 mg PO DAILY risperidone 1 mg tablet 1 mg PO DAILY rosuvastatin 5 mg tablet 5 mg PO DAILY Print Language: Marshallese Instructions: Cellulitis (ED) Additional Instructions: Follow-up with your surgeon on Friday. Return anytime for worsening symptoms Referrals: Vern Tong MD [Primary Care Provider, Family Practice] - 1 week Discharge Date/Time: 04/29/25 20:30
== END 2025-04-29 20:30 | disposition home or self-care (01) ==
PROVIDERS: Emergency Provider Emergency Medicine; PCP Family Medicine
DX: L03.115 Cellulitis of right lower limb (principal); L53.9 Erythematous condition, unspecified; I83.813 Varicose veins of bilateral lower extremities with pain
CPT/HCPCS: 99283

== ENCOUNTER 2025-10-22 06:31 | Outpatient (OUT) | payer MEDICARE, SELFPAY ==
--- OUTSIDE RECORDS SUMMARY | 2025-04-06 10:34 | XMS_ITS | Continuity of Care Document ---
Author Organization [facility] Address [address] [place] [address] Phone Care Team Providers Care Associate Java Developer Name Role Phone Darcy Crawford Unavailable Unavaila ble Allergies, Adverse Reactions, Alerts Substance Reaction Status Criticality morphine Dry eyes Active No Information Medications Medication Instructions Dosage Effective Dates (start - stop) Status Comments naltrexone 50 mg tablet take 1 tablet by oral route every day 50 MG - Active metoprolol tartrate 50 mg tablet take 1 tablet by oral route 2 times every day with meals 50 MG - Active Vivitrol 380 mg intramuscular suspension,extended release inject 4 milliliter by intramuscular route every 4 weeks 380 MG - Active rosuvastatin 5 mg tablet take 1 tablet by oral route every day 5 MG - Active acamprosate 333 mg tablet,delayed release take 2 tablet by oral route 3 times every day 666 MG - Active meloxicam 15 mg tablet take 1 tablet by oral route every day 15 MG - Active furosemide 40 mg tablet take 1 tablet by oral route every day 40 MG - Active risperidone 1 mg/mL oral solution take 2 milliliter by oral route 2 times every day 2 MG - Active mirtazapine 45 mg tablet take 1 tablet by oral route every day before bedtime 45 MG - Active liothyronine 5 mcg tablet take 1 tablet by oral route every day 5 MCG - Active carvedilol 6.25 mg tablet take 1 tablet by oral route 2 times every day with food 6.25 MG - Active naltrexone 50 mg tablet take 1 tablet by oral route every day 50 MG - Active Procedures Procedure Date PSYTX PT&/FAMILY 60 MINUTES PSYTX PT&/FAMILY 60 MINUTES PSYTX PT&/FAMILY 60 MINUTES PSYTX PT&/FAMILY 60 MINUTES OFFICE/OUTPATIENT VISIT, EST DRUG SCREENING FENTANYL DRUG TEST PRSMV DIR OPT OBS PSYTX PT&/FAMILY 60 MINUTES PSYCH DIAGNOSTIC EVALUATION DRUG TEST PRSMV DIR OPT OBS Injection, Vivitrol Naltrexone, 1mg Vivitrol Drug Repository Fee OFFICE/OUTPATIENT VISIT, EST OFFICE/OUTPATIENT VISIT, EST DRUG TEST PRSMV DIR OPT OBS Injection, Vivitrol Naltrexone, 1mg DRUG TEST PRSMV DIR OPT OBS OFFICE/OUTPATIENT VISIT, EST Injection, Vivitrol Naltrexone, 1mg IMMUNIZATION ADMIN Covid-19 Vaccine, 50 Mcg Moderna 12y Plu s Injection, Vivitrol Naltrexone, 1mg DRUG TEST PRSMV DIR OPT OBS OFFICE/OUTPATIENT VISIT, EST IMMUNIZATION ADMIN FLU VACCINE NO PRESERV 3 & > DRUG TEST PRSMV DIR OPT OBS Injection, Vivitrol Naltrexone, 1mg OFFICE/OUTPATIENT VISIT, EST PSYTX PT&/FAMILY 60 MINUTES OFFICE/OUTPATIENT VISIT, EST Bp scrn perf rec interval DIAST BP < 80 MM HG SYST BP < 130 MM HG MED LIST DOCD IN RD [facility] MEDS BY RX/DR IN [facility] Tobacco User Not Consuled COLORECTAL CA SCREEN DOC REV DRUG TEST PRSMV DIR OPT OBS Injection, Vivitrol Naltrexone, 1mg Vivitrol Drug Repository Fee PSYTX PT&/FAMILY 60 MINUTES PSYTX PT&/FAMILY 60 MINUTES PSYTX PT&/FAMILY 60 MINUTES Vivitrol Drug Repository Fee DRUG TEST PRSMV DIR OPT OBS ROUTINE VENIPUNCTURE OFFICE/OUTPATIENT VISIT, EST Bp scrn perf rec interval DIAST BP < 80 MM HG SYST BP < 130 MM HG Tobacco User Not Consuled Pt inelig neg scrn depres COLORECTAL CA SCREEN DOC REV Injection, Vivitrol Naltrexone, 1mg PSYTX PT&/FAMILY 60 MINUTES PSYTX PT&/FAMILY 60 MINUTES PSYTX PT&/FAMILY 60 MINUTES PSYTX PT&/FAMILY 60 MINUTES PSYTX PT&/FAMILY 60 MINUTES PSYTX PT&/FAMILY 60 MINUTES PSYTX PT&/FAMILY 60 MINUTES PSYTX PT&/FAMILY 60 MINUTES PSYTX PT&/FAMILY 60 MINUTES PSYTX PT&/FAMILY 60 MINUTES PSYTX PT&/FAMILY 60 MINUTES 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 PRSMV DIR OPT OBS 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 [employer] Intraoral-complete Series (bw) Oral Hygiene Instruction Comp Oral Eval New/estab Patient 2023 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 [address] [place], [address], [place]. tel:[phone] PSYTX PT&/FAMILY 60 MINUTES [facility], [address] [place] [address], [id number] , [place] tel:+ [phone] [facility] Alcohol dependence with withdrawal, uncomplicatedGenera lized Anxiety Disorder 5 Burak Taveras. [address] [place], [address], [place]. tel: [phone] PSYTX PT&/FAMILY 60 MINUTES [facility], [address] [place] [address], [id number] , [place] tel:+ [phone] [facility] Alcohol dependence with withdrawal, uncomplicatedGenera lized Anxiety Disorder 5 Burak Taveras. [address] [place], [address], [place]. tel:+ [phone] PSYTX PT&/FAMILY 60 MINUTES [facility], [address] [place] [address], [id number] , [place] tel:+ [phone] [facility] Alcohol dependence with withdrawal, uncomplicatedGenera lized Anxiety Disorder 5 Burak Taveras. [address] [place], [address], [place]. tel:[phone] OFFICE/OUTPA TIENT VISIT, EST [facility], [address] [place] [address], [id number] , [place] tel:+ [phone] [facility] Vivitrol (chief complaint) Alcohol dependence, uncomplicatedBody mass index [BMI]30.0-30.9, adult 5 Rodri Tavears. [address] [place] [address], [address], [place]. tel: [phone] PSYTX PT&/FAMILY 60 MINUTES [facility], [address] [place] [address], [id number] , [place] tel: [phone] [facility] Alcohol dependence with withdrawal, uncomplicatedGenera lized Anxiety Disorder 5 Burak Taveras. [address] [place], [address], [place]. tel: [phone] PSYCH DIAGNOSTIC EVALUATION [facility], [address] [place] [address], [id number] , [place] tel: [phone] [facility] Alcohol dependence with withdrawal, uncomplicatedGenera lized Anxiety Disorder 5 Burak Taveras. [address] [place], [address], [place]. tel: [phone] OFFICE/OUTPA TIENT VISIT, [facility], [address] [place] [address], [id number] , [place] tel: [phone] [facility] Vivitrol (chief complaint) Vivitrol injection (chief complaint) Alcohol dependence, uncomplicatedBody mass index [BMI]30.0-30.9, adult 5 Rodri Taveras. [address] [place] [address], [address], [place]. tel: [phone] OFFICE/OUTPA TIENT VISIT, [facility], [address] [place] [address], [id number] , [place] tel: [phone] [facility] vivitrol (chief complaint) UDS (chief complaint) Alcohol dependence, uncomplicatedBody mass index [BMI] 29.0-29.9, adult 5 Rodri Taveras. [address] [place] [address], [address], [place]. tel: [phone] OFFICE/OUTPA TIENT VISIT, [facility], [address] [place] [address], [id number] , [place] tel: [phone] [facility] Vivitrol (chief complaint) Vivitrol injection (chief complaint) Alcohol dependence, uncomplicatedBody mass index [BMI] 29.0-29.9, adult Dec- 4 Rodri Taveras. [address] [place] [address], [address], . tel: [phone] OFFICE/OUTPA TIENT VISIT, [facility], [address] [place] [address], [id number] , [place] tel: [phone] [facility] Vivitrol (chief complaint) Alcohol dependence, uncomplicated Sep- 4 Rodri Taveras. [address] [place] [address], [address], [place]. tel: [phone] OFFICE/OUTPA TIENT VISIT, [facility], [address] [place] [address], [id number] , [place] tel: [phone] [facility] Vivitrol (chief complaint) Uncomplicated alcohol dependenceBody mass index [BMI] 28.0-28.9, adultLower leg edema Oct- 4 Rodri Taveras. [address] [place] [address], [address], [place]. tel: [phone] PSYTX PT&/FAMILY 60 MINUTES [facility], [address] [place] [address], [id number] , [place] tel: [phone] [facility] Alcohol dependence with withdrawal, uncomplicatedGenera lized Anxiety Disorder Sep- 4 Burak Taveras. [address] [place] [address], [address], [place]. tel: [phone] OFFICE/OUTPA TIENT VISIT, [facility], [address] [place] [address], [id number] , [place] tel: [phone] [facility] Vivitrol (chief complaint) Alcohol use disorderThrombocyto peniaBody mass index [BMI] 27.0-27.9, adult Sep- 4 Phu Shannon. [address] [place] [address], [address], [place]. tel: [phone] PSYTX PT&/FAMILY 60 MINUTES [facility], [address], [place], [id number] , [place] tel: [phone] [facility] Alcohol dependence with withdrawal, uncomplicatedGenera lized Anxiety Disorder 4 Burak Taveras. [address] [place], [address], [place]. tel: [phone] PSYTX PT&/FAMILY 60 MINUTES [facility], [address], [place], [id number] , [place] tel: [phone] [facility] Alcohol dependence with withdrawal, uncomplicatedGenera lized Anxiety Disorder 4 Burak Taveras. [address] [place], [address], [place]. tel: [phone] PSYTX PT&/FAMILY 60 MINUTES [facility], [address], [place], [id number] , [place] tel: [phone] [facility] Alcohol dependence with withdrawal, uncomplicatedGenera lized Anxiety Disorder 4 Burak RICHARDSWilly Darcy. [address] [place], [address], [place]. tel: [phone] [facility], [address] [place] [address], [id number] , [place] tel: [phone] [facility] No Information 4 Phu Shannon. [address] [place], [address], [place]. tel: [phone] [facility], [address], [place], [id number] , [place] tel: [phone] [facility] Thrombocytopenia 4 Phu Shannon. [address] [place], [address], [place]. tel: [phone] OFFICE/OUTPA TIENT VISIT, EST [facility], [address], [place], [id number] , [place] tel: [phone] [facility] Vivitrol (chief complaint) Lab draw (chief complaint) Need for hepatitis C screening testScreening for HIV (human immunodeficiency virus)Alcohol use disorderBody mass index [BMI] 27.0-27.9, adultEncounter for screening colonoscopyFood insecurityMaterial deprivation due to limited financial resources 4 Phu Shannon. [address] [place], [address], [place]. tel: [phone] PSYTX PT&/FAMILY 60 MINUTES [facility], [address], [place], [id number] , [place] tel: [phone] [facility] Alcohol dependence with withdrawal, uncomplicatedGenera lized Anxiety Disorder 4 Burak Taveras. [address] [place], [address], [place]. tel: [phone] PSYTX PT&/FAMILY 60 MINUTES [facility], [address] [place] [address], [id number] , [place] tel: [phone] [facility] Alcohol dependence with withdrawal, uncomplicatedGenera lized Anxiety Disorder 4 Burak Taveras. [address] [place], [address], [place]. tel: [phone] PSYTX PT&/FAMILY 60 MINUTES [facility], [address] [place] [address], [id number] , [place] tel: [phone] [facility] Alcohol dependence with withdrawal, uncomplicatedGenera lized Anxiety Disorder 4 Burak Taveras. [address] [place], [address], [place]. tel: [phone] PSYTX PT&/FAMILY 60 MINUTES [facility], [address] [place] [address], [id number] , [place] tel: [phone] [facility] Alcohol dependence with withdrawal, uncomplicatedGenera lized Anxiety Disorder 4 Burak Taveras. [address] [place], [address], [place]. tel:[phone] PSYTX PT&/FAMILY 60 MINUTES [facility], [address], [place], [id number] , [place] tel: [phone] [facility] Alcohol dependence with withdrawal, uncomplicatedGenera lized Anxiety Disorder 4 Burak Tavreas. [address] [place], [address], [place]. tel:[phone] PSYTX PT&/FAMILY 60 MINUTES [facility], [address], [place], [id number] , [place] tel: [phone] [facility] Alcohol dependence with withdrawal, uncomplicatedGenera lized Anxiety Disorder 4 Burak Taveras. [address] [place], [address], [place]. tel:[phone] PSYTX PT&/FAMILY 60 MINUTES [facility], [address], [place], [id number] , [place] tel: [phone] [facility] Alcohol dependence with withdrawal, uncomplicatedGenera lized Anxiety Disorder 4 Burak CASASSid Taveras. [address] [place], [address], [place]. tel: [phone] PSYTX PT&/FAMILY 60 MINUTES [facility], [address], [place], [id number] , [place] tel: [phone] [facility] Alcohol dependence with withdrawal, uncomplicatedGenera lized Anxiety Disorder 4 Burak Taveras. [address] [place], [address], [place]. tel:[phone] PSYTX PT&/FAMILY 60 MINUTES [facility], [address], [place], [id number] , [place] tel: [phone] [facility] Alcohol dependence with withdrawal, uncomplicatedAdjust ment disorder w/ mixed anxiety and depressed mood 4 Burak Taveras. [address] [place], [address], [place]. tel:[phone] PSYTX PT&/FAMILY 60 MINUTES [facility], [address], [place], [id number] , [place] tel: [phone] [facility] Alcohol dependence with withdrawal, uncomplicated Apr- 4 Burak Taveras. [address] [place], [address], [place]. tel: [phone] PSYTX PT&/FAMILY 60 MINUTES [facility], [address], [place], [id number] , [place] tel: [phone] [facility] Alcohol dependence with withdrawal, uncomplicated March- 4 Burak Taveras. [address] [place], [address], [place]. tel: [phone] [facility], [address], [place], [id number] , [place] tel: [phone] [facility] No Information 4 Raciel Leslie. [address] [place], [address], [place]. tel: [phone] [facility], [address] [place] [address], [id number] , [place] tel: [phone] [facility] No Information 4 Klidas Shania. [address] [place] [address], [id number] , [place]. tel: [phone] [facility], [address], [place], [id number] , [place] tel: [phone] [facility] No Information 4 Klidas Shania. [address], [place], [id number] , [place]. tel: [phone] [facility], [address] [place] [address], [id number] , [place] tel: [phone] Dental Clinic dn (chief complaint) Encounter for screening for dental disorders 4 Rashawn Sandoval. . tel: [phone] [facility], [address] [place] [address], [id number] , [place] tel: [phone] [facility] No Information 4 Gerber Jauregui. [address] [place] [address], [id number] , [place]. tel: [phone] [facility], [address] [place] [address], [id number] , [place] tel: [phone] [facility] Detox dn (chief complaint) No Information 4 Gerber Jauregui. [address] [place] [address], [id number] , [place]. tel: [phone] Family History Family Member Type Diagnosis Age At Onset Mother Problem Diabetes mellitus Sister Problem Asthma Brother Problem Alcoholism Mother Problem Hypertension Mother Problem Cardiovascular disease Sister Problem Allergies Sister Problem Alive and well Brother Problem Obesity Mother Problem Migraine headaches Brother Problem Hypertension Mother Problem Peripheral vascular disease Immunizations Vaccine Date Status Comments zoster recombinant administered Source: [facility] ther Registry Pneumococcal conjugate PCV20 , polysaccharide [id number] conjugate, adjuvant, PF administered Source: Other Re gistry Spikevax 12y+ administered Source: New Im munization Record Fluarix/Flulaval administered Source: New Immunization Record Influenza, injectable, MDCK, preservative free, quadrivalent administered Source: Other Registry COVID-19, mRNA, LNP-S, PF, 3 0 mcg/0.3 mL dose administered Source: Other Regist ry HepB-CpG administered Source: Other R egistry HepB-CpG administered Source: Other R egistry COVID-19, mRNA, LNP-S, PF, 3 0 mcg/0.3 mL dose administered Source: Other Regist ry COVID-19, mRNA, LNP-S, PF, 3 0 mcg/0.3 mL dose administered Source: Other Regist ry Payers Payer name Insurance type Covered green party ID Authoriza tigerson(s) [employer] Medicare Adv [id number] Self Pay Cap [id number] Self Pay Cap [id number] Social History Type Description Quantity Date Captured Comments Alcohol Use Details Unknown Caffeine Use Details Unknown Tobacco Use Status No Information Smoking Status No Information Sex Male Sexual Orientation Straight or heterosexual March Gender Identity Male Chief Complaint And Reason For Visit No Information Reason For Referral Reason For Referral No Information Plan Of Treatment Date Type Action Status Goal Tdap. Due on due Goal Colonoscopy. Due on due Goal Lipid panel. Due on due Goal Influenza vaccine. Due on Oc t due Goal Hepatitis C screening. Due o n due Goal Zoster vaccine (2nd). Due on due Goal Zoster vaccine (1st) due Goal Unhealthy drug use screening . Due on due Goal PRAPARE ASSESSMENT. Due on due Goal Tdap Vaccine. Due on 2024 due Goal Depression screening. Due on due Goal Lipid panel. Due on due Goal Depression screening. Due on due Goal Tdap. Due on due Goal Influenza vaccine. Due on Oc due Goal Colonoscopy. Due on due Goal Unhealthy drug use screening . Due on due Goal Zoster vaccine (2nd). Due on due Goal PRAPARE ASSESSMENT. Due on A due Goal Tdap Vaccine. Due on 2024 due Goal Hepatitis C screening. Due o n due Goal Hep A. Due on du e Goal Zoster vaccine (1st) due Goal Influenza vaccine. Due on Oc due Goal Tdap. Due on due Goal Lipid panel. Due on due Goal Colonoscopy. Due on due Goal Depression screening. Due on due Goal Zoster vaccine () due Goal PRAPARE ASSESSMENT. Due on M due Goal Hepatitis C screening. Due o n due Goal Unhealthy drug use screening . Due on due Goal Tdap Vaccine. Due on 2024 due Goal Hep A. Due on du e Goal Depression screening. Due on due Goal Unhealthy drug use screening . Due on due Goal Zoster vaccine () due Goal PRAPARE ASSESSMENT. Due on M due Goal Tdap. Due on due Goal Lipid panel. Due on due Goal Tdap Vaccine. Due on 2024 due Goal Influenza vaccine. Due on Oc due Goal Colonoscopy. Due on due Goal Hepatitis C screening. Due o n due Goal Hepatitis C screening. Due o n due Goal Lipid panel. Due on due Goal Colonoscopy. Due on due Goal Tdap Vaccine. Due on 2024 due Goal Depression screening. Due on due Goal Tdap. Due on due Goal Zoster vaccine (1st) due Goal Unhealthy drug use screening . Due on due Goal PRAPARE ASSESSMENT. Due on due Goal Influenza vaccine. Due on Oc due Goal Lifestyle education regardin g diet completed Goal Tdap. Due on due Goal Tdap Vaccine. Due on 2024 due Goal Colonoscopy. Due on due Goal Influenza vaccine. Due on due Goal Hepatitis C screening. Due o n due Goal Lipid panel. Due on due Goal Zoster vaccine () due Goal Unhealthy drug use screening . Due on due Goal Depression screening. Due on due Goal PRAPARE ASSESSMENT. Due on due Goal Unhealthy drug use screening . Due on due Goal Influenza vaccine. Due on due Goal Hep A. Due on du e Goal Zoster vaccine (1st) due Goal Tdap Vaccine. Due on 2024 due Goal Lipid panel. Due on due Goal Tdap. Due on due Goal Colonoscopy. Due on due Goal PRAPARE ASSESSMENT. Due on due Goal Depression screening. Due on due Goal Hepatitis C screening. Due o n due Goal Influenza vaccine. Due on due Goal Depression screening. Due on due Goal Lipid panel. Due on due Goal Unhealthy drug use screening . Due on due Goal Hepatitis C screening. Due o n due Goal Tdap. Due on due Goal Tdap Vaccine. Due on 2024 due Goal PRAPARE ASSESSMENT. Due on due Goal Colonoscopy. Due on due Goal Zoster vaccine () due Goal Dietary management education , guidance, and counseling completed Goal Tdap Vaccine. Due on 2024 due Goal Tdap. Due on due Goal Depression screening. Due on due Goal Hepatitis C screening. Due o n due Goal Unhealthy drug use screening . Due on due Goal Lipid panel. Due on due Goal Colonoscopy. Due on due Goal Influenza vaccine. Due on due Goal PRAPARE ASSESSMENT. Due on due Goal Zoster vaccine (). Due on due Goal Dietary management education , guidance, and counseling completed Goal Tdap. Due on due Goal Hepatitis C screening. Due o n due Goal Tdap Vaccine. Due on 2023 due Goal Hep A. Due on du e Goal Influenza vaccine. Due on Oc due Goal Depression screening. Due on due Goal PRAPARE ASSESSMENT. Due on D due Goal Zoster vaccine (). Due on due Goal Unhealthy drug use screening . Due on due Goal Colonoscopy. Due on due Goal Lipid panel. Due on due Goal Dietary management education , guidance, and counseling completed Goal PRAPARE ASSESSMENT. Due on N due Goal Colonoscopy. Due on due Goal Lipid panel. Due on due Goal Influenza vaccine. Due on Oc due Goal Unhealthy drug use screening . Due on due Goal Tdap. Due on due Goal Zoster vaccine (). Due on due Goal Tdap Vaccine. Due on 2023 due Goal Depression screening. Due on due Goal Hepatitis C screening. Due o n due Goal PRAPARE ASSESSMENT. Due on O due Goal Depression screening. Due on due Goal Colonoscopy. Due on due Goal Hepatitis C screening. Due o n due Goal Tdap Vaccine. Due on 2023 due Goal Unhealthy drug use screening . Due on due Goal Lipid panel. Due on due Goal Zoster vaccine (1st). Due on due Goal Influenza vaccine. Due on Oc due Goal Tdap. Due on due Goal Lifestyle education regardin g diet completed Goal Hepatitis C screening. Due o n due Goal Unhealthy drug use screening . Due on due Goal Tdap Vaccine. Due on 2023 due Goal PRAPARE ASSESSMENT. Due on S due Goal Tdap. Due on due Goal Colonoscopy. Due on due Goal Zoster vaccine (1st). Due on due Goal Depression screening. Due on due Goal Influenza vaccine. Due on due Goal Lipid panel. Due on due Goal Lipid panel. Due on due Goal Zoster vaccine (1st). Due on due Goal Depression screening. Due on due Goal Influenza vaccine. Due on Se due Goal Tdap Vaccine. Due on 2023 due Goal PRAPARE ASSESSMENT. Due on S due Goal Colonoscopy. Due on due Goal Unhealthy drug use screening . Due on due Goal Hepatitis C screening. Due o n due Goal Tdap. Due on due Goal Dietary management education , guidance, and counseling completed Goal Zoster vaccine (). Due on due Goal Colonoscopy. Due on due Goal Hep A. Due on du e Goal Influenza vaccine. Due on due Goal Lipid panel. Due on due Goal Unhealthy drug use screening . Due on due Goal Tdap. Due on due Goal Tdap Vaccine. Due on 2023 due Goal Hepatitis C screening. Due o n due Goal Depression screening. Due on due Goal PRAPARE ASSESSMENT. Due on A due Goal Colonoscopy. Due on due Goal Influenza vaccine. Due on due Goal Tdap Vaccine. Due on 2023 due Goal Depression screening. Due on due Goal PRAPARE ASSESSMENT. Due on A due Goal Hepatitis C screening. Due o n due Goal Hep A. Due on du e Goal Lipid panel. Due on due Goal Zoster vaccine (). Due on due Goal Unhealthy drug use screening . Due on due Goal Tdap. Due on due Goal Hep A. Due on du e Goal Zoster vaccine (). Due on due Goal Influenza vaccine. Due on due Goal Colonoscopy. Due on due Goal Lipid panel. Due on due Goal Depression screening. Due on due Goal Hepatitis C screening. Due o n due Goal Tdap Vaccine. Due on 2023 due Goal PRAPARE ASSESSMENT. Due on A due Goal Tdap. Due on due Goal Unhealthy drug use screening . Due on due Goal Influenza vaccine. Due on due Goal PRAPARE ASSESSMENT. Due on A due Goal Hepatitis C screening. Due o n due Goal Tdap. Due on due Goal Depression screening. Due on due Goal Colonoscopy. Due on due Goal Tdap Vaccine. Due on 2023 due Goal Zoster vaccine (). Due on due Goal Lipid panel. Due on due Goal Unhealthy drug use screening . Due on due Goal Tdap Vaccine. Due on 2023 due Goal PRAPARE ASSESSMENT. Due on A due Goal Hep A. Due on du e Goal Unhealthy drug use screening . Due on due Goal Influenza vaccine. Due on due Goal Colonoscopy. Due on due Goal Hepatitis C screening. Due o n due Goal Zoster vaccine (). Due on due Goal Depression screening. Due on due Goal Lipid panel. Due on due Goal Tdap. Due on due Goal Unhealthy drug use screening . Due on due Goal Depression screening. Due on due Goal Hepatitis C screening. Due o n due Goal Colonoscopy. Due on due Goal Lipid panel. Due on due Goal Hep A. Due on du e Goal Tdap Vaccine. Due on 2023 due Goal Tdap. Due on due Goal Influenza vaccine. Due on due Goal Zoster vaccine (). Due on due Goal PRAPARE ASSESSMENT. Due on A due Goal Hep A. Due on du e Goal Lifestyle education regardin g diet completed Goal Lipid panel. Due on due Goal PRAPARE ASSESSMENT. Due on A due Goal Unhealthy drug use screening . Due on due Goal Hepatitis C screening. Due o n due Goal Colonoscopy. Due on due Goal FIT-DNA. Due on due Goal CT-Colonography. Due on due Goal Depression screening. Due on due Goal Zoster vaccine (). Due on due Goal FOBT. Due on due Goal Influenza vaccine. Due on due Goal Tdap Vaccine. Due on 2023 due Goal FIT. Due on due Goal Tdap. Due on due Goal Depression screening. Due on due Goal CT-Colonography. Due on due Goal Lipid panel. Due on due Goal FIT-DNA. Due on due Goal Tdap Vaccine. Due on 2023 due Goal Tdap. Due on due Goal Unhealthy drug use screening . Due on due Goal FIT. Due on due Goal FOBT. Due on due Goal Hepatitis C screening. Due o n due Goal Zoster vaccine (). Due on due Goal PRAPARE ASSESSMENT. Due on A due Goal Influenza vaccine. Due on due Goal Colonoscopy. Due on due Goal Zoster vaccine (1st). Due on due Goal FOBT. Due on due Goal Unhealthy drug use screening . Due on due Goal Colonoscopy. Due on due Goal Lipid panel. Due on due Goal Tdap. Due on due Goal PRAPARE ASSESSMENT. Due on due Goal FIT. Due on due Goal Tdap Vaccine. Due on 2023 due Goal FIT-DNA. Due on due Goal Depression screening. Due on due Goal Influenza vaccine. Due on due Goal Hepatitis C screening. Due o n due Goal CT-Colonography. Due on due Goal Hep A. Due on du e Goal FOBT. Due on due Goal Depression screening. Due on due Goal Hepatitis C screening. Due o n due Goal FIT. Due on due Goal Influenza vaccine. Due on due Goal Lipid panel. Due on due Goal Tdap. Due on due Goal FIT-DNA. Due on due Goal Zoster vaccine (1st). Due on due Goal CT-Colonography. Due on due Goal Unhealthy drug use screening . Due on due Goal PRAPARE ASSESSMENT. Due on due Goal Colonoscopy. Due on due Goal Tdap Vaccine. Due on 2023 due Goal Tdap Vaccine. Due on 2023 due Goal Hepatitis C screening. Due o n due Goal FIT. Due on due Goal Unhealthy drug use screening . Due on due Goal Zoster vaccine (). Due on due Goal Colonoscopy. Due on due Goal CT-Colonography. Due on due Goal Tdap. Due on due Goal PRAPARE ASSESSMENT. Due on due Goal Depression screening. Due on due Goal FIT-DNA. Due on due Goal Influenza vaccine. Due on due Goal FOBT. Due on due Goal Lipid panel. Due on due Goal Depression screening. Due on due Goal PRAPARE ASSESSMENT. Due on due Goal Hepatitis C screening. Due o n due Goal FOBT. Due on due Goal CT-Colonography. Due on due Goal Colonoscopy. Due on due Goal Lipid panel. Due on due Goal Influenza vaccine. Due on due Goal Tdap. Due on due Goal FIT-DNA. Due on due Goal Tdap Vaccine. Due on 2023 due Goal Zoster vaccine (). Due on due Goal Unhealthy drug use screening . Due on due Goal FIT. Due on due Goal Zoster vaccine (). Due on due Goal Colonoscopy. Due on due Goal Tdap Vaccine. Due on 2023 due Goal FIT. Due on due Goal Hep A. Due on du e Goal PRAPARE ASSESSMENT. Due on due Goal FOBT. Due on due Goal Lipid panel. Due on due Goal Hepatitis C screening. Due o n due Goal Depression screening. Due on due Goal Unhealthy drug use screening . Due on due Goal Tdap. Due on due Goal FIT-DNA. Due on due Goal Influenza vaccine. Due on due Goal CT-Colonography. Due on due Goal Hepatitis C screening. Due o n due Goal Unhealthy drug use screening . Due on due Goal Hep A. Due on du e Goal CT-Colonography. Due on due Goal Colonoscopy. Due on due Goal Lipid panel. Due on due Goal Tdap Vaccine. Due on 2023 due Goal Influenza vaccine. Due on due Goal FOBT. Due on due Goal PRAPARE ASSESSMENT. Due on due Goal FIT. Due on due Goal FIT-DNA. Due on due Goal Tdap. Due on due Goal Zoster vaccine (). Due on due Goal Depression screening. Due on due Goal CT-Colonography. Due on due Goal Hep A. Due on du e Goal Unhealthy drug use screening . Due on due Goal PRAPARE ASSESSMENT. Due on due Goal Influenza vaccine. Due on due Goal Tdap Vaccine. Due on 2023 due Goal Zoster vaccine (1st). Due on due Goal Lipid panel. Due on due Goal FIT-DNA. Due on due Goal Hepatitis C screening. Due o n due Goal Tdap. Due on due Goal Colonoscopy. Due on due Goal FOBT. Due on due Goal FIT. Due on due Goal Depression screening. Due on due Goal Influenza vaccine. Due on due Goal CT-Colonography. Due on due Goal Tdap. Due on due Goal Unhealthy drug use screening . Due on due Goal Hepatitis C screening. Due o n due Goal Tdap Vaccine. Due on 2023 due Goal FIT. Due on due Goal Colonoscopy. Due on due Goal PRAPARE ASSESSMENT. Due on due Goal Lipid panel. Due on due Goal Depression screening. Due on due Goal Zoster vaccine (). Due on due Goal FOBT. Due on due Goal FIT-DNA. Due on due Goal Colonoscopy. Due on due Goal Influenza vaccine. Due on due Goal FIT-DNA. Due on due Goal Zoster vaccine (1st). Due on due Goal Depression screening. Due on due Goal Lipid panel. Due on due Goal PRAPARE ASSESSMENT. Due on due Goal Tdap Vaccine. Due on 2023 due Goal Tdap. Due on due Goal CT-Colonography. Due on due Goal FOBT. Due on due Goal FIT. Due on due Goal Unhealthy drug use screening . Due on due Goal Hepatitis C screening. Due o n due Goal Tdap Vaccine. Due on 2023 due Goal Colonoscopy. Due on due Goal PRAPARE ASSESSMENT. Due on due Goal Tdap. Due on due Goal FIT-DNA. Due on due Goal Zoster vaccine (). Due on due Goal FIT. Due on due Goal CT-Colonography. Due on due Goal Lipid panel. Due on due Goal Unhealthy drug use screening . Due on due Goal FOBT. Due on due Goal Depression screening. Due on due Goal Hepatitis C screening. Due o n due Goal Influenza vaccine. Due on due Goal Tdap Vaccine. Due on 2023 due Goal Hepatitis C screening. Due o n due Goal Unhealthy drug use screening . Due on due Goal Lipid panel. Due on due Goal FOBT. Due on due Goal Colonoscopy. Due on due Goal Depression screening. Due on due Goal Zoster vaccine (1st). Due on due Goal CT-Colonography. Due on due Goal FIT. Due on due Goal Influenza vaccine. Due on Ma due Goal PRAPARE ASSESSMENT. Due on M due Goal Tdap. Due on due Goal FIT-DNA. Due on due Referral Ordered: Referrals: [facility]. Consult [id number] Ordered: COLONOSCOPY AND BIOPSY ordered History Of Present Illness Encounter Date Complaint History Of Prese nt Illness Vivitrol Alcohol was drug of choice, Last drink 03/27/2024. Sees Darcy Sumner for counseling 2X a month. No issues with injection. No problems with cravings.PHQ9: 0GAD7: 0UDS: Opiod+//JWHupp RNAbove noted. Patient here for Vivitrol injection for dose #8 for alcohol dependency. Denies any injection site concerns. PCP Dr Tong. Saw vascular specialist last month for edema to lower legs. States he will be having outpatient procedure in [place], laser procedure. Wants to do 4 veins; one each week. Dr Anibal Estrada. Had labs completed at [facility] approx 2 weeks ago ordered by PCP. Had bronchitis. States glucose came back elevated, but he was not fasting. Was prescribed antibiotic and steroids with inhaler. Feeling well today. States only recent med change was change to simvastin due to insurance from previous statin therapy. Denies any use of OTC supplements to cough meds. 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 Eric Yepez RN Vivitrol Presents for Yasmin itrol #7 LG, labs due 03/04. DOC ETOH last use 03/29/24. Valery Sumner at [facility] for counseling but is on hold right now due to insurance not covering. Pt is getting new insurance as of 12/11/24. Denies issues with last injection. Denies cravings. Rapid UDS negative for all. Eric Morrell noted. Patient reports he is doing very well. Had inquired when patients typically stop receiving Vivitrol. Currently on dose #7. Had Pneumonia and shingles immunization yesterday; feeling little fatigued, feels from the vaccines. Denies any injection site concerns. PCP Dr Tong. Saw vascular specialist Friday for edema to lower legs. States he will be having outpatient procedure in [place], laser procedure. Wants to do 4 veins; one each week. Dr Anibal Estrada. MARCELLE Frazier vivitrol Pt here today fo r vivitrol # 6RG. DOC ETOH. Labs due 03/04. Pt sees Valery Sumner for counseling. Pt denies any issues with previous injection. Last use was 04/02. Voices no other issues or concerns at this time. -Raul. Vivitrol administered RUOQ of RG using 2'' needle. Pt tolerated well. Voices no complaints at this time. -Raul. Above noted. States no cravings over New Years holiday; was in bed early. Denies any new issues/concerns. States edema remains to lower leg; has f/u appt scheduled with vascular specialist in a few weeks. MARCELLE Frazier UDS UDS: Pt negative for all substances. -Raul. Vivitrol injection Vivitrol inje ction given in LUOQ of buttock with 2 needle, tolerated well. Eric Yepez RN Vivitrol Presents for Yasmin itrol #5 LG, labs due 03/04. DOC ETOH, last use 03/29/24. Darcy Sumner at [facility] for counseling. Denies issues with last injection. Denies cravings. Rapid UDS negative for all. Eric Morrell noted. Here for next Vivitrol injection for alcohol dependency. States he doing well; admits to mild cravings during holidays with advertisements and all. States finished eating and went to grab a beer out of habit and realized he shouldn't and put it down. States not necessarily a craving, but more of a habit. Denies any complications from injection itself from last office visit; but admits to feeling fatigued; chilled the next day. Had received COVID vaccine with the Vivitrol and felt had symptoms from that. Continues under care with PCP, Dr Tong. Left leg remains edematous. States he was instructed to wear compression stockings and is following up with vascular specialist, Dr Estrada. Will need procedure completed in near future. MARCELLE Frazier Vivitrol Yasmin #4 RG, labs due February/2025. DOC ETOH. Last drink 03/29/24. Pt goes to counseling at [facility]/ [facility]. Pt denies cravings. UDS: Negative all substances. PCP is Dr Tong. Seen recently for sudden onset of swelling to lower legs. Had labs drawn in August along with doppler scan and cardiac echo. Was prescribed furosemide; which has helped. States he was informed no concerns with labs; noted low platelets in past. Did f/u with vein specialist, Dr Estrada, who informed him the valvue is not shutting properly. In approx 3 month will complete laser surgery to fix. New med prescribed was meloxicam for joint aches. MARCELLE Frazier380mg IM administered in RUOQ LG w/ 2 inch needle. Pt tolerated well. Also received COVID vaccination today. MARCELLE Frazier Vivitrol Yasmin #3 LG, labs due 10/03. DOC ETOH. Last drink 03/29/24. Pt goes to counseling at [facility]/ [facility]. Pt denies cravings. Pt states he experienced a lot of pain after last injection. Pt consents to flu vaccine today. UDS: Negative all substances. 380mg IM administered in LUOQ LG w/ 2 inch needle. Pt tolerated well. Petros Cohn noted. Patient states he is doing well with alcohol addiction; has not had any cravings. Last drank in March. States he has been f/u with Dr Tong regarding sudden onset of swelling to lower legs. Had labs drawn 4 days ago along with doppler scan and cardiac echo. Was prescribed furosemide; which has helped. States he was informed no concerns with labs; noted low platelets in past. MARCELLE Frazier Vivitrol Yasmin #2 RG, labs due 10/03. DOC beer/ETOH, last use was 03/29/24, denies cravings, counseling through [facility] with Valery Sumner, last shot tolerated well.UDS negative all substances.Injection administered in RUOQ of RG using 2 needle, aspirated without blood return, patient tolerated well - KIRA Hickey. Lab draw Labs drawn x1 LA C. 2x2 and bandage applied. MAURICIO Cohn Vivitrol Pt is here for v ivitrol #1. Vivitrol labs due 10/03. DOC ETOH. Last drink 04/02. Pt attends counseling with Valery Sumner at [facility]. Pt has been on Naltrexone x3 months. Pt denies cravings. Pt denies tobacco and drug use. UDS: [id number] IM administered in LUOQ LG w/ 2 inch needle. Pt tolerated well. Petros Cohn noted.Patient is a 54-year-old male who presents to start Vivitrol. He states he has been on oral Naltrexone for the past 3 months and tolerating it well. He states he did have elevated LFTs when he initially stopped drinking, which is being monitored PCP. He reports he had a liver biopsy in 2019 but nothing came about this.Medical history: HTN, Hyperlipidemia, Anxiety, DepressionSurgical history: right shoulder surgery. He reports will be getting tube put in right ear due to effusionSocial history: Reports history of etoh use; last drink in March 2024. Prior to his sobriety, he reports he was drinking 0.5-0.75 gallon of whiskey before he switched to 8% tall boys and was drinking 6-7 a day. Denies any drug use. Reports that he smoked over 10 years ago. Labs scanned into chart were reviewed.03/31/24 - Alk phos 524, AST 88, negative HCV and HIV04/01/34 - GGT 809, platelets 77,0006/03/03 - Platelets 163,0008/05/03 - GGT 101, elevated glucose / M. MICHAEL Bay lloyd dn dn dn Functional Status Date Functional Assessmen t No Information Instructions Date Instruction Additional Infor charles 1. Continue with cou nseling2. Do not use opioids or any recreational drugs. Do not drink alcohol3. Return in 1 week to repeat urine and possibly receive next dose of Vivitrol Related to Alcohol dependence, uncomplicated Giving encouragement to exercise Related to Body mass index [BMI] 30.0-30.9, adult Lifestyle education regarding di et Related to Body mass index [BMI] 30.0-30.9, adult 1. Continue with cou nseling2. Do not use opioids or any recreational drugs. Do not drink alcohol3. Watch for injection site complications/reaction4. Return in 1 month for next dose of Vivitrol Related to Alcohol dependence, uncomplicated Giving encouragement to exercise Related to Body mass index [BMI] 30.0-30.9, adult Dietary management e ducation, guidance, and counseling Related to Body mass index [BMI] 30.0-30.9, adult 1. Continue with cou nseling2. Do not use opioids or any recreational drugs. Do not drink alcohol3. Watch for injection site complications/reaction4. Return in 1 month for next dose of Vivitrol Related to Alcohol dependence, uncomplicated Dietary management e ducation, guidance, and counseling Related to Body mass index [BMI] 29.0-29.9, adult 1. Continue with cou nseling2. Do not use opioids or any recreational drugs. Do not drink alcohol3. Watch for injection site complications/reaction4. Return in 1 month for next dose of Vivitrol Related to Alcohol dependence, uncomplicated Giving encouragement to exercise Related to Body mass index [BMI] 29.0-29.9, adult Dietary management e ducation, guidance, and counseling Related to Body mass index [BMI] 29.0-29.9, adult 1. Continue with cou nseling2. Do not use opioids or any recreational drugs. Do not drink alcohol3. Watch for injection site complications/reaction4. Return in 1 month for next dose of Vivitrol Related to Alcohol dependence, uncomplicated 1. Continue with levi atment plan per PCP Related to Lower leg edema 1. Continue with cou nseling2. Do not use opioids or any recreational drugs. Do not drink alcohol3. Watch for injection site complications/reaction4. Return in 1 month for next dose of Vivitrol Related to Uncomplicated alcohol dependence Giving encouragement to exercise Related to Body mass index [BMI] 28.0-28.9, adult Lifestyle education regarding di et Related to Body mass index [BMI] 28.0-28.9, adult Giving encouragement to exercise Related to Body mass index [BMI] 27.0-27.9, adult Dietary management e ducation, guidance, and counseling Related to Body mass index [BMI] 27.0-27.9, adult Giving encouragement to exercise Related to Body mass index [BMI] 27.0-27.9, adult Lifestyle education regarding di et Related to Body mass index [BMI] 27.0-27.9, adult Assessments Type Assessment Date assessment Alcohol dependence with withdraw al, uncomplicated impression Pt. has maintained a lmost 9 months sobriety. Reports no cravings. Continues to receive monthly vivitrol shots. assessment Generalized Anxiety Disorder March impression Chronic worry, irrit ability, and trouble relaxing includes situations beyond his locus of control. Goals Health Concern Goal Type Priority Status Date Patient needs education to manage alcohol dependence. Patient will state factors necessary to manage alcohol dependence. Patient Goal Continued Patient needs education to manage alcohol dependence. Patient will state factors necessary to manage alcohol dependence. Patient Goal Continued Patient needs education to manage alcohol dependence. Patient will state factors necessary to manage alcohol dependence. Patient Goal Continued Patient needs education to manage alcohol dependence. Patient will state factors necessary to manage alcohol dependence. Patient Goal Continued Patient Care Teams Name Effective Dates (start - stop) Status Members No Information
--- OUTSIDE RECORDS SUMMARY | 2025-10-10 09:26 | XMS_ITS ---
Author Organization [facility] [place] Address [address] [place] [address] Care Team Providers Care Grab Driver Name Role Phone FamiliasylvieOdilon Primary Care Provider REASON FOR VISIT Refill/ Due Yearly Labs Encounters Encounter Location Date Provider Diagnosis [facility] [address] [place] [address] 10/10/2025 Odilon Tong Elevated liver enzym es R74.8 ; Hyperlipemia E78.5 ; Hypothyroidism, unspecified E03.9 ; Anemia D64.9 ; Diabetes mellitus E11.9 ; Screening for colon cancer Z12.11 and Screening for prostate cancer Z12.5 Assessments Encounter Date Diagnosis (ICD Code) Assessment Notes Treatment Notes Treatment Clinical Notes Section Notes 10/10/2025 Elevated liver enzymes (ICD-10 - R74.8) 10/10/2025Hyperlipemia (ICD-10 - E78.5)10/10/2025Hypothyroidism, unspecified (ICD-10 - E03.9)10/10/2025nemia (ICD-10 - D64.9)10/10/2025Diabetes mellitus (ICD-10 - E11.9)10/10/2025Screening for colon cancer (ICD-10 - Z12.11)10/10/2025 Screening for prostate cancer (ICD-10 - Z12.5) Plan Of Treatment Pending Test Test Name Order Date FECAL OCCULT BLOOD 10/10/2025 CBC AUTO DIFF 10/10/2025 GLYCOHEMOGLOBIN A1C 10/10/2025 LIPID PROFILE 10/10/2025 PROF 14(COMP METB) 10/10/2025 THYROID PANEL (T4/TSH/FREE T3) PSA Total+% Free 10/10/2025 Progress Notes * Araseli FRITZOB:1970 ( 55 yo M)Acc No.[id number]:10/10/2025 Patient:?Chuy FRITZ :1970???Age:55 Y???Sex:MalePhone:[phone] Address: [address] [address] Subjective: * Chief Complaints: * R efill/ Due Yearly Labs * Medical History: * Surgical History: * Hospitalization/Major Diagno stic Procedure: * Medications: Objective: * Vitals: * Physical Examination: ??? Assessment: * Assessment: 1.?Elevated liver enzymes - R74.8 (Primary)???2.?Hyperlipemia - E78.5? ??3.?Hypothyroidism, unspecified - E03.9???4.?Anemia - D64.9 ??5.?Diabetes mellitus - E11.9???6.?Screening for colon cancer - Z12.11???7.?Screening for prostate cancer - Z12.5??? Plan: * Treatment: ?LAB: CBC AUTO DIFF ?LAB: PROF 14(COMP METB)2.?Hyperlipemia?LAB: LIPID PROFILE3.?Hypothyroidism, unspecified?LAB: THYROID PANEL (T4/TSH/FREE T3)4.?Anemia?LAB: CBC AUTO DIFF ?LAB: PROF 14(COMP METB)5.?Diabetes mellitus?LAB: GLYCOHEMOGLOBIN A1C6.?Screening for colon cancer?LAB: FECAL OCCULT BLOOD7.?Screening for prostate cancer?LAB: PSA Total+% Free * Procedure Codes: * true * Date:?Generated for Printing/Faxing/eTransmitting on:?10/22/2025 06:33 AM EST
--- OUTSIDE RECORDS SUMMARY | 2025-10-22 06:33 | XMS_ITS | Clinical Summary ---
Author Organization [facility] Address [address] [place] [address] Phone Care Team Providers Care Supervisor Sound Technician Name Role Phone Unavailable Primary Care Provider Unavailabl e Social History Tobacco UseTypesPacks/DayYears UsedDateSmoking Tobacco: Never AssessedSex and Gender InformationValueDate RecordedSex Assigned at BirthNot on fileLegal Sex Male10/05/2022 9:26 PM ESTGender IdentityNot on fileSexual OrientationNot on file Last Filed Vital Signs Vital SignReadingTime TakenCommentsBlood Pressure--Pulse--Temperature-- Respiratory Rate--Oxygen Saturation--Inhaled Oxygen Concentration--Weight-- Gbdebo970.8 cm (5' 10 )05/08/2021 10:04 AM EDTBody Mass Index-- Plan of Treatment Not on file
--- OUTSIDE RECORDS SUMMARY | 2025-10-22 06:33 | XMS_ITS | Clinical Summary ---
Author Organization [facility] Healthcare Address [address] [place] [address] Care Team Providers Care Rn Diabetes Name Role Phone Vern Tong MD Primary Care Provider [phone] Allergies Active AllergyReactionsCriticalityNoted BgsnAofpcrlsObjcaomkAhskjv81/25/2022 Other Reaction(s): Swelling of the Eye, Unknown Medications MedicationSigDispense QuantityRefillsLast FilledStart DateEnd DateStatus carvedilol (Coreg) 6.25 MG tablet Take 6.25 mg by mouth 1 (one) time each day at the same timeActive acamprosate (Campral) 333 MG EC tablet Take 333 mg by mouth in the morning and 333 mg in the evening and 333 mg before bedtime.04/07/2024ctive doxepin (SINEquan) 10 MG capsule Take 10 mg by mouth every 12 (twelve) hours04/16/2024ctive hydrOXYzine HCl (Atarax) 25 MG tablet Take 25 mg by mouth every 6 (six) hours04/07/2024ctive levothyroxine (Synthroid, Levoxyl) 50 MCG tablet Take 50 mcg by mouth in the morning. Take before meals.Active liothyronine (Cytomel) 5 MCG tablet Take 5 mcg by mouth DailyActive lisinopril 10 MG tablet Take 10 mg by mouth DailyActive melatonin 10 MG tablet Take 10 mg by mouth at pfzpebf9604/07/2024ctive mirtazapine (Remeron) 45 MG tablet Take 45 mg by mouth 1 (one) time each day at the same timeActive risperiDONE (RisperDAL) 1 MG tablet Take 1 mg by mouth 1 (one) time each day at the same timeActive Crestor 5 MG tablet Take 5 mg by mouth 1 (one) time each day at the same time05/12/2024ctive simvastatin (Zocor) 10 MG tablet Take 10 mg by mouth 1 (one) time each day at the same time04/30/2024ctive Active Problems ProblemNoted DateDiagnosed DateMixed conductive and sensorineural hearing loss of left ear with restricted hearing of right ear05/26/2024OME (otitis media with effusion), right05/26/2024ETD (Eustachian tube dysfunction), right05/26/2024 Abnormal AST and ALT05/25/2024cute kidney lhwqcw2905/25/2024nemia due to blood loss05/25/20246298Aosqsuj87/16/2024onductive hearing loss, unilateral, right ear with restricted hearing on the contralateral side05/25/20243176Feudklog11/16/2024 Fatty liver05/25/2024Hereditary yotepxxbrhigwsj26/16/2024High cholesterol 05/25/20248765Oxeuihmcajzx55/16/2024ost-traumatic osteoarthritis of right shoulder 05/25/2024Serous otitis media05/25/20245346Ejrqllegfgizpvj79/16/2024Hepatic fibrosis 05/25/20244588Drqejpdmxhvmov44/16/6590Ycoftmuarje11/16/2024otator cuff tear 05/25/2024Sebaceous cyst05/25/2024Hearing abnormally acute, right05/17/2024 Family History Medical HistoryRelationNameCommentsArthritisBrotherChris LieskeHypertension BrotherChris LieskeCancerFatherRobin LieskeDiabetesMotherSandy RitenourHTNMother Vanita RitenourHeart diseaseMotherSandy RitenourRelationNameStatusCommentsBrother Gerardo LieskeAliveFatherRobin LieskeDeceasedMotherSandy RitenourAliveSisterAlive Social History Tobacco UseTypesPacks/DayYears UsedDateSmoking Tobacco: FormerCigarettes Smokeless Tobacco: NeverAlcohol UseStandard Drinks/WeekCommentsNot Currently0 (1 standard drink = 0.6 oz pure alcohol)Sex and Gender InformationValueDate RecordedSex Assigned at BirthNot on fileLegal DhePxsk6001/22/2023 6:52 PM EDT Gender IdentityNot on fileSexual OrientationNot on file Last Filed Vital Signs Vital SignReadingTime TakenCommentsBlood Frycojbw836/6409 9:54 AM EDT Pulse--Temperature--Respiratory Rate--Oxygen Saturation--Inhaled Oxygen Concentration--Bnkoaq01.2 kg (190 lb)07/14/2024 9:54 AM TNQKxryho770.8 cm (5' 10 )07/14/2024 9:54 AM EDTBody Mass Index27.26007/14/2024 9:54 AM EDT Plan of Treatment Not on file Insurance Care Teams Team MemberRelationshipSpecialtyStart Date Vern Tong MD PCP - GeneralFamily Medicine05/24/24
--- OUTSIDE RECORDS SUMMARY | 2025-10-22 06:33 | XMS_ITS | Patient Health Record ---
Author Organization [facility] in [place] Address [address] [place] [address] Care Team Providers Care Chain Sales Representative Name Role Phone Odilon Arreola Primary Care Provider Ryann Cedeno Unavailable [phone] Allergies Allergen (clinical drug ingredient) Drug/Non Drug Allergy documented on EMR Reaction Allergy Type Onset Date Status morphine Morphine anaphylaxis Drug Allergy Active Results Component Value Reference Range Notes PROF 14(COMP METB) Reviewed date:01/02/2025 09:47:44 AM Interpretation: Performing Lab: Notes/Report: [facility] , Sodium 139 136-145 mmol/L Potassium4.83.5-5.1 mmol/BEniyvdxm55109-891 mmol/LCarbon Qwhqpql41.221.0-32.0 mmol/LAnion Gap11.6Kltmlld03826-757 mg/dLBlood Urea Nkskmxws49.07.0-18.0 mg/dL Creatinine1.240.70-1.30 mg/dLEstimated GFR ( Michelle>60>=60 mL/min/1.73m 2Estimated GFR (Non- Aileen>60>=60 mL/min/1.73m 2BUN Creatinine Ratio13.7 Calcium8.88.5-10.1 mg/dLBilirubin Total1.10.2-1.0 mg/dLAspartate Amino Oojztnritjl5735-53 U/LAlanine Anrmxtxebmuhbbwl4446-98 U/LAlkaline Nvwvphttvzg99 46-116 U/LTotal Protein7.46.4-8.2 g/dLAlbumin Level3.53.4-5.0 g/dLGlobulin3.9 Albumin Globulin Ratio0.9Performing Lab:see [facility] LB White Blood Cells Reviewed date:01/05/2025 08:10:13 PM Interpretation: Performing Lab: Notes/Report: [facility] ,White Blood CellsSee Below For Report White Blood Cells White Blood CellsNone seen White Blood Cells Performing Lab:see note - [facility] LBEpithelial Cells Reviewed date:01/05/2025 08:10:13 PM Interpretation: Performing Lab: Notes/Report: [facility] ,Epithelial CellsSee Below For Report Epithelial Cells Few Performing Lab:see note - [facility] LBResult 1 Reviewed date:01/05/2025 08:10:13 PM Interpretation: Performing Lab: Notes/Report: [facility] ,Result 1See Below For Report Result 1 Few gram positive rods. [facility] LBResult 2 Reviewed date:01/05/2025 08:10:13 PM Interpretation: Performing Lab: Notes/Report: [facility] ,Result 2See Below For Report Result 2 Moderate number of gram positive cocci. Performing Lab:see note - [facility] LBResult 3 Reviewed date:01/05/2025 08:10:13 PM Interpretation: Performing Lab: Notes/Report: [facility] ,Result 3See Below For Report Result 3 Few gram negative rods. [facility] LBResult 4 Reviewed date:01/05/2025 08:10:13 PM Interpretation: Performing Lab: Notes/Report: [facility] ,Result 4See Below For Report Result 4 Few gram variable cocci Performing Lab:see note - [facility] LBGram Stain Evaluation Reviewed date:01/05/2025 08:10:13 PM Interpretation: Performing Lab: Notes/Report: [facility] ,Gram Stain EvaluationSee Below For Report Gram Stain Evaluation This specimen is of good quality and is acceptable for routine Gram Stain Evaluationbacterial culture. Gram Stain Evaluation This specimen is of good quality and is acceptable for routine [facility] LBLower Respiratory Culture Reviewed date:01/05/2025 08:10:13 PM Interpretation: Performing Lab: Notes/Report: [facility] ,Lower Respiratory CultureSee Below For Report Lower Respiratory Culture WILL FOLLOW Lower Respiratory CultureRoutine respiratory mattie Lower Respiratory Culture WILL FOLLOW Lower Respiratory CulturePerformed at: - [facility] [place] Lower Respiratory Culture WILL FOLLOW Lower Respiratory [address] [place], [place] [id number] Lower Respiratory Culture WILL FOLLOW Lower Respiratory CultureLab Director: Gavin Casas PhD, Phone: [phone] Lower Respiratory Culture WILL FOLLOW Performing Lab:see note LC - [facility] LB SEE REPORT - Amphibian Crewmember Id information not found for OBX-specific promotions executive producer legend Compliance Drug Analysis, Ur Reviewed date:01/12/2025 09:21:59 PM Interpretation: Performing Lab: Notes/Report: Specimen Comment: ToxAssure, ToxAssure FLEX or MAT drug testin Specimen Comment: -Technical component - Data analysis performed at Specimen Comment: [facility] [place], [address] [place] [address], [id number]. Specimen Comment: [phone]. Electrophysiologist Marisela Ambriz MD [facility] ,Summary Report (Summary)FINAL. TOXASSURE COMP DRUG ANALYSIS,UR Test Result Flag Units Drug Present Naltrexone PRESENT Mirtazapine PRESENT Test Result Flag Units Ref Range Creatinine 66 mg/dL >=20 Declared Medications: Medication list was not provided. For clinical consultation, please call . Performed at: [facility] [employer] [address] [id number] Electrophysiologist: Ariana Camarena [facility], Phone: [phone] Performing Lab:see noteLC - [facility] LBXR chest 2V Reviewed date:01/02/2025 09:47:44 AM Interpretation: Performing Lab: Notes/Report: Source Facility: [place] [address] XRay Report Signed Patient: CHUY FRITZ MR#: [id number] : 1970 Acct:[id number] Age/Sex: 54 / M ADM Date: 12/31/24 Loc: LAB Attending Dr: Genevieve Arreola M.D. Ordering Physician: Genevieve Arreola M.D. Date of Service: 12/31/24 Procedure(s): XR chest 2V Accession Number(s): [id number] cc: Genevieve Arreola M.D. [place] [address] Patient Name: CHUY FRITZ MRN: [id number] date: 1970 Sex: M Assigned Patient Location: LAB Current Patient Location: LAB Accession/Order Number: [id number] Exam Date: 12/31/2024 13:50 Report Date: 12/31/2024 13:50 At the request of: GENEVIEVE ARREOLA MD Procedure: XR chest 2V XR chest [...] Ras Lucero M.D.12/31/2024 1:50 PM Dictation Location: [place] [address] Electronically authenticated by: [id number] Y Date: 12/31/2024 13:50 Dictated By: Ras Lucero M.D. Signed By: 12/31/24 1353 DD/ 1350 TD/TT: Director Of Mechanical Engineering:CBC AUTO DIFF Reviewed date:01/02/2025 09:47:44 AM Interpretation: Performing Lab: Notes/Report: [facility] ,White Blood Count5.84.0-11.0 10 3/uLRed Blood Count4.684.70-6.10 10 6/uL Nhmhtzxrts56.914.0-18.0 g/vUWzgijtmjlp71.742.0-54.0 %Mean Corpuscular Vxiiph96.4 80.0-94.0 fLMean Corpuscular Wwzocpgwcq53.825.9-34.0 pgMean Corpuscular HGB Conc 34.129.9-35.2 g/dLRed Cell Distribution Width13.511.0-15.0 %Platelet Oegwe58980- 450 10 3/uLMean Platelet Mfjfbt27.99.5-13.5 fLNeutrophils Percent Auto84.643.0- 75.0 %Lymphocytes Percent Auto13.820.5-60.0 %Monocytes Percent Auto0.91.7-12.0 % Eosinophils Percent Auto0.00.9-7.0 %Basophils Percent Auto0.20.2-2.0 %Immature Granulocytes Pct Auto0.50.0-0.5 %Neutrophils Absolute Auto4.91.4-6.5 10 3/uL Lymphocytes Absolute Auto0.81.2-3.8 10 3/uLMonocytes Absolute Auto0.10.3-0.8 10 3/uLEosinophils Absolute Auto0.00.0-0.7 10 3/uLBasophils Absolute Auto0.00.0-0.1 10 3/uLImmature Granulocytes Abs Auto0.030.00-0.03 10 3/uLPerforming Lab:see noteML - [facility] LBBNP Reviewed date:01/02/2025 09:47:44 AM Interpretation: Performing Lab: Notes/Report: [facility] ,NT Pro B Type Natriuretic Pept37.0<=900.0 pg/mLPerforming Lab:see noteML - [facility] LBCOVID-19, Flu A+B IH Reviewed date:08/30/2025 11:10:47 AM Interpretation: Performing Lab: Notes/Report: COVID-FLU A-FLU B-Control+XR hip LT 2V w/ pelvis Reviewed date:01/23/2025 03:18:03 PM Interpretation: Performing Lab: Notes/Report: Source Facility: [place] [address] XRay Report Signed Patient: CHUY FRITZ MR#: [id number] : 1970 Acct:[id number] Age/Sex: 54 / M ADM Date: 01/21/25 Loc: RAD Attending Dr: Genevieve Arreola M.D. Ordering Physician: Genevieve Arreola M.D. Date of Service: 01/21/25 Procedure(s): XR hip LT 2V w/ pelvis Accession Number(s): [id number] cc: Genevieve Arreola M.D. [place] [address] Patient Name: CHUY FRITZ MRN: [id number] date: 1970 Sex: M Assigned Patient Location: RAD Current Patient Location: RAD Accession/Order Number: [id number] Exam Date: 01/21/2025 11:58 Report Date: 01/21/2025 12:01 At the request of: GENEVIEVE ARREOLA MD Procedure: XR hip LT 2V w/ [...] Quita Madrid M.D.01/21/2025 12:01 PM Dictation Location: [place] [address] Electronically authenticated by: [id number] Y Date: 01/21/2025 12:01 Dictated By: Quita Madrid M.D. Signed By: 01/21/25 1204 DD/ 1201 TD/TT: Director Of Mechanical Engineering: Reason For Referral No Information Medications Medication SIG (Take, Route, Frequency, Duration) Notes Start Date End Date Status Mirtazapine 45 MG TAKE 1 TABLET BY MOUTH EVERY D AY AT BEDTIME; Duration: 30 ActiveLivalo 1 MG1 tablet Orally Once a day; Duration: 30 days4Active Melatonin 10 MG1 tablet Orally at ftdjeva9104/07/2024ctiveMeloxicam 15 MG1 tablet Orally Once a day; Duration: 30 days08/16/2024ctiveMetoprolol Tartrate 25 MG1 tablet with food Orally Twice a day; Duration: 30 days5Active Liothyronine Sodium 5 MCGTAKE 1 TABLET BY MOUTH EVERY DAY ON EMPTY STOMACH FOR 30 DAYS; Duration: 30ActiverisperiDONE 1 MGTAKE 1 TABLET BY MOUTH EVERY DAY FOR 30 DAYS; Duration: 100ActiveSimvastatin 40 MG1 tablet in the evening Orally Once a day; Duration: 30 days4ActiveVivitrolActiveAlbuterol Sulfate HFA 108 (90 Base) MCG/ACT2 puffs Inhalation four times daily; Duration: 30 days 5ActiveAzithromycin 250 MGas directed Orally daily; Duration: 5 days take 2 tablets po on first day than 1 tablet po days 2-5ActiveLasix 40 MG1 tablet Orally Once a day; Duration: 3 days08/16/2024ctive Immunizations Vaccine Route Administration Date Status Comme nts Flu, (56427) -historic- Whole Unknown 08/22/2025 Admini stered HepB-NjNRmxjscj79/06/2021dministeredHepB-UtWNhopvht31/17/2021dministered Pneumococcal (Prevnar 20)Fyktetf1112/07/20240332BlsydgegvwmkYWWK-CUY-1 (COVID 19 Pfizer 30mcg/0.3mL)Sqklybw55/15/0953OjrlkgxhjhllTLFZ-RJK-6 (COVID 19 Pfizer 30mcg/0.3mL)Oublzey02/06/1049YltwyqdgscrpLGOJ-MUR-9 (COVID 19 Pfizer 30mcg/0.3mL)Iveimny3710/31/2021dministeredSpikevax Moderna Syringe Pre-Filled 50 mcg/0.5 aICcuagam16/07/2024dministeredZOSTER (SHINGLES) VACCINE (HZV)Unknown 12/07/2024dministered Social History Tobacco Use: Social History Observation Description Date Details (start date - stop date) Former Smoker NA - 12/10/2012 Tobacco Use/Smoking Question Answer Notes Patient is a former smoker When did you stop smoking?12/10/2012How long has it been since you last smoked?> 10 yearsAlcohol Screen (Audit-C) Question Answer Notes Did you have a drink containing alcohol in the p ast year? Yes How often did you have 6 or more drinks on one occasion in the past year?Never (0 point)How many drinks did you have on a typical day when you were drinking in the past year?1 or 2 drinks (0 point)How often did you have a drink containing alcohol in the past year?Monthly (2 points)Nktrni0SovgaibksmrdgiYjmncvgcTHSVE-H (Standard) Question Answer Notes Did you have a drink containing alcohol in the p ast year? No Zzhgln1ObywdwumveltsnSvbfvtej Problems Problem Type SNOMED Code ICD Code Onset Dates Problem Status W/U Status Risk Notes Problem Hypothyroidism (39190263) Hypothyroidism, unspecified (E03.9) ActiveconfirmedProblemSebaceous cyst (533442345)Sebaceous cyst (L72.3)Active confirmedProblemPalpitations (78743143)Palpitations (R00.2)Activeconfirmed ProblemHyperlipidaemia (58330741)Hyperlipemia (E78.5)ActiveconfirmedProblem Hypertension (75451134)Hypertension (I10)ActiveconfirmedProblemAnxiety (55497183)Anxiety (F41.9)ActiveconfirmedProblemHypothyroid (71716056)Hypothyroid (E03.9)ActiveconfirmedProblemAnemia (298051554)Anemia (D64.9)Activeconfirmed ProblemElevated liver enzymes level (218425976)Elevated liver enzymes (R74.8) ActiveconfirmedProblemHemochromatosis (897226515)Hemochromatosis (E83.119)Active confirmedProblemHearing loss (30902891)Hearing loss (H91.90)Activeconfirmed ProblemFatty liver (204607516)Fatty liver (K76.0)ActiveconfirmedProblem Arthralgia of the pelvic region and thigh (554601021)Left hip pain (M25.552) ActiveconfirmedProblemDiverticulitis (98319249)Diverticulitis (K57.92)Active confirmedProblemThrombocytopenia (500477996)Thrombocytopenia (D69.6)Active confirmedProblemRotator cuff tear (907235186)Rotator cuff tear (M75.100)Active confirmedProblemGastroenteritis (57711240)Gastroenteritis (K52.9)Activeconfirmed ProblemOverweight (046757537)Over weight (E66.3)ActiveconfirmedProblemAcute renal failure syndrome (83001861)Acute kidney failure (N17.9)Activeconfirmed KhgizeaCjocw-9-zcbombllrwg phenotype PiMS (finding) (196666591)Alpha 1- antitrypsin PiMS phenotype (R79.9)ActiveconfirmedProblemType II diabetes mellitus without complication (420278255)Diabetes (E11.9)ActiveconfirmedProblem Diabetes mellitus (77740408)Diabetes mellitus (E11.9)ActiveconfirmedProblem Hepatic fibrosis (27934063)Hepatic fibrosis (K74.00)Activeconfirmed Vital Signs Oximetry 97 % 01/03/2025 Blood pressure fzmvdagao15 mm Hg08/30/20258046Zjzqfs10 in08/30/2025lood pressure eqaeolkx700 mm Hg08/30/20252592Tmxfex755 lbs1MI33.43 kg/m208/30/2025 Encounters Encounter Location Date Provider Diagnosis [facility] [address] [place] [address] 12/13/2024 Odilon Hoy Hypertension I10 [facility] [address] [place] [address] 12/29/2024 Odilon Hoy Acute bronchitis, unspecified organism J20.9 [facility] [address] [place] [address] 01/21/2025 Odilon Hoy Left hip pain M25.55 [address] [place] [address] [place] [facility] [place] [address] 05/16/2025 Odilon Hoy Hypertension I10 [facility] [address] [place] [facility] [place] [place] [address] 01/03/2025 Odilon Hoy Acute bronchitis, unspecified organism J20.9 [facility] [address] [place] [facility] [place] [address] 08/30/2025 Ryann Wilian Congestion of nasal sinus R09.81 and Acute sinusitis J01.90 [facility] [address] [place] [facility] [place] [address] 01/17/2025 Odilon Hoy Hypertension I10 and Diabetes E11.9 [facility] [address] [facility] [place] [address] 11/05/2024 Odilon Hoy [facility] [place] [facility] [place] [address] 12/16/2024[facility] [facility] [place] [address]/21/2025Doug HoyAcute bronchitis, unspecified organism [facility]20.[facility] [place] [place] [place] [address]/ Odilon [facility] [place] [facility] [place] [place] [address]/Doug [facility] [place] [facility] [place] [address]/Doug HoyMedication management Z79.899BVSt. [facility] [facility] [place] [address]/ [facility] [place] [facility] [place] [address]/Doug [facility] [place] [facility] [place] [place] [address]/09/2025Doug [facility] [place] [place] [place] [place] [address]/11/2024Doug HoyElevated liver enzymes R74.8 ; Hyperlipemia E78.5 ; Hypothyroidism, unspecified E03.9 ; Anemia D64.9 ; Diabetes mellitus E11.9 ; Screening for colon cancer Z12.11 and Screening for prostate cancer Z12.5BChristopher [address] [address] [place] [address]/04/2025Doug HoyHypertension X56JhlimxhCourtney [address] [address] [facility] [address]/09/2025Doug Hoy Hypertension I10 Assessments Encounter Date Diagnosis (ICD Code) Assessment Notes Treatment Notes Treatment Clinical Notes Section Notes 12/13/2024 Hypertension (ICD-10 - I10) 12/16/2024Hypertension (ICD-10 - I10)12/29/2024ute bronchitis, unspecified organism (ICD-10 - J20.9)Rest and drink more liquids, especially water. You may use a humidifier or vaporizer to help keep the drainage moist. Ubbj-cji-jnbkdkh Nasal Saline may help the stuffy and runny nose. Use Ibuprofen and or Tylenol as needed for fever, chills, body aches or pain. Children 5 years old should not be given lyuh-kfc-vvucpyt cough and cold medications such as guaifenesin and dextromethorphan. If you're over age 5, you may try qayb-ylq-bchrjhg cold medications such as guaifenesin and dextromethorphan, or multi-symptom cold reliever such as Dayquil to help reduce the symptoms. Antibiotics have been pre scribed. You should take these until completed and follow the directions. Antibiotics can sometimescause upset stomach, and in rare cases, serious allergic reactions or serious gastrointestinal problems. If you start having severe abdominal pain, severe vomiting, or bloody diarrhea, you should be r eevaluated by your physician or urgent care immediately. Follow up with your Primary Care Provider or return to clinic if symptoms do not improve within 3-5 days. If you develop severe symptoms such as shortness of breath, repeated vomiting, coughing up blood, or chest pain you should go to the emergency room or call [phone]//5Acute bronchitis, unspecified organism (ICD-10 - J20.9)Rest and drink more liquids, especially water. You may use a humidifier or vaporizer to help keep the drainage moist. Rufc-bpd-oqyvsrr Nasal Saline may help the stuffy and runny nose. Use Ibuprofen and or Tylenol as needed for fever, chills, body aches or pain. Children 5 years old should not be given vzbr-gvy-wpwwxzu cough and cold medications such as guaifenesin and dextromethorphan. If you're o gail age 5, you may try hyzd-zwf-wrnpjeb cold medications such as guaifenesin and dextromethorphan, or multi-symptom cold reliever such as Dayquil to help reduce the symptoms. Antibiotics have been prescribed. You should take these until completed and follow the directions. Antibiotics can sometimescause upset stomach, and in rare cases, serious [...] go to the emergency room or call [phone] (ICD-10 - I10)01/17/2025Diabetes (ICD-10 - E11.9)01/21/2025Left hip pain (ICD-10 - M25.552)05/16/2025Hypertension (ICD-10 - I10)2025Hypertension (ICD-10 - I10)08/30/2025ongestion of nasal sinus (ICD-10 - R09.81)08/30/2025ute sinusitis (ICD-10 - J01.90)fu if not gebjnimpt96/21/2025Acute bronchitis, unspecified organism (ICD-10 - J20.9)01/06/2025Medication management (ICD-10 - Z79.899)10/10/2025Elevated liver enzymes (ICD-10 - R74.8)10/10/2025Hyperlipemia (ICD-10 - E78.5)10/10/2025Hypothyroidism, unspecified (ICD-10 - E03.9)10/10/2025 Anemia (ICD-10 - D64.9)10/10/2025Diabetes mellitus (ICD-10 - E11.9)10/10/2025 Screening for colon cancer (ICD-10 - Z12.11)10/10/2025Screening for prostate cancer (ICD-10 - Z12.5) Plan Of Treatment Pending Test Test Name Order Date CMP (COMPLETE METABOLIC PANEL) 3 CMP (COMPLETE METABOLIC PANEL) 4 HEMOGLOBIN A1C (GLYCO) 08/08/2023 INSULIN, TOTAL 08/08/2023 LIPID PANEL (CHOL/TRIG/HDL/LDL) 08/08/20 23 CBC WITH DIFF (EXP 09/2025) 08/08/2023 CBC WITH DIFF (EXP 09/2025) 08/16/2024 PSA, PROSTATE-SPECIFIC ANTIGEN 3 CARDIO Echocardiogram 08/16/2024 FECAL OCCULT BLOOD 10/10/2025 COMPREHENSIVE METABOLIC PROFILE WITH GFR 04/12/2024 CMP - Comprehensive Metabolic Panel 03/2024 CMP - Comprehensive Metabolic Panel 12/12 CBC W/AUTO DIFF 04/12/2024 CBC W/AUTO DIFF 08/12/2023 High Sensitivity Troponin 08/16/2024 CBC AUTO DIFF 10/10/2025 COMPLIANCE DRUG SCREEN 01/06/2025 GLYCOHEMOGLOBIN A1C 10/10/2025 LIPID PROFILE 10/10/2025 PROF 14(COMP METB) 10/10/2025 US GRISEL DOP LEG LT 08/16/2024 US GRISEL DOP LEG RT 08/16/2024 XR HIP LT 2 3V W PELVIS 01/21/2025 THYROID PANEL (T4/TSH/FREE T3) 5 THYROID PANEL (T4/TSH/FREE T3) 3 THYROID PANEL (T4/TSH/FREE T3) 3 THYROID PANEL (T4/TSH/FREE T3) 3 THYROID PANEL (T4/TSH/FREE T3) 4 PSA Total+% Free 10/10/2025 Lipid Panel 04/12/2024 Lipid Panel 03/19/2024 Gram Stain w/Sputum Cult Rflx 12/31/2024 Insurance Providers Payer Name Payer Address Payer Phone Subscriber Number Group Number Insured Name Patient Relationship to Insured Coverage Start Date Coverage End Date [employer] [address] [place] [address] [id number] Vannessa Fritz - patient is the insured Medications Administered Medication Instructions Date of Administration Dosage Notes Ketorolac Tromethamine mgTriamcinolone 40 mg/ml20 mgTriamcinolone 40 mg/ml 0 mg Medical (General) History Medical History History ICD Code Over weight E66.3 Hypertension I10 Fatty liver K76.0 Gastroenteritis K52.9 Hepatic fibrosis K74.00 Elevated liver enzymes R74.8 Hemochromatosis E83.119 Alpha 1-antitrypsin PiMS phenotype R79.9 Acute kidney failure N17.9 Diverticulitis K57.92 Anxiety F41.9 Palpitations R00.2 Rotator cuff tear M75.100 Sebaceous cyst L72.3 Surgical History Surgery Date(Month/Year) Shoulder Surgery- Right tube in Rt ear07/03
--- OUTSIDE RECORDS SUMMARY | 2025-10-22 06:34 | XMS_ITS | CCD ---
Author Organization [facility] Care Team Providers Care Liver Trimmer Name Role Phone None, No PCP Unavailable [...] DR AMADOU Chang Admitting Unavailable HOY, DR VALLEOJ Primary Care Unavailable REQUEST, DR RASCON LISTED [...] Unavailable STEPHANIE, DR AMADOU Chang Admitting Unavailable HOSylvie, DR VALLEJO Primary Care Unavailable STEPHANIE, DR AMADOU Chang Attending Unavailable HOY, DR VALLEJO Primary Care Unavailable REQUEST, NONE LISTED Consulting Unavaila ble REQUEST, DR NONE LISTED Admitting Unavaila ble REQUEST, NONE LISTED Attending Unavaila ble Magaly Sewell Attending Unavail able Matheus Garza Referring Unavailabl e Genevieve Arreola Primary Care Unavailable Magaly Sewell Admitting Unavail able DARIEN WARE Attending Unavailable VIVIENNE VELÁZQUEZ Attending Unavailable VIVIENNE VELÁZQUEZ Attending Unavailable Genevieve Arreola MD Primary Care Provider [phone] Genevieve Arreola MD Primary Care Provider [phone] Gideon Mace V. Attending Unavailable Provider, None Primary Care Unavailable Gideon Mace V. Admitting Unavailable ZiebDavid rey Admitting Unavailable ZiebaDvid rey Attending Unavailable Provider, None Primary Care Unavailable AneudyebDavid rey RDelmer Admitting Unavailable ZiebDavid rey Attending Unavailable Provider, None Primary Care Unavailable David Quevedo Attending Unavailable Provider, None Primary Care Unavailable David Quevedo Admitting Unavailable Gideon Mace V. Attending Unavailable Gideon Mace V. Admitting Unavailable Provider, None Primary Care Unavailable Gideon Mace V. Attending Unavailable Provider, None Primary Care Unavailable Gideon Mace V. Admitting Unavailable Gideon Mace V. Attending Unavailable Gideon Mace V. Admitting Unavailable Provider, None Primary Care Unavailable Gideon Mace V. Attending Unavailable Gdieon Mace V. Admitting Unavailable Provider, None Primary Care Unavailable Allergies Allergy ClassificationReported Allergen(s)Allergy TypeDate of OnsetReaction(s) Facility (3 sources)Morphine; Translations: [morphine]Drug Jkcgvkx65-27-7739Gdnlthri [facility] Repository (1 source)MorphineDrug Bbcyfvf86-19-1603Kfooubvdb[facility] (5 sources)MorphineDrug Crtggqo84-66-5043XTRN [facility] Medications Current Medications MedicationDrug Class(es)DatesSig (Normalized)Sig (Original)acamprosate calcium 333 mg delayed release oral tablet (5 sources)Start: 38-67-1484xeqm 1 tablet by mouth in the morning, then take 1 tablet by mouth in the evening, then take 1 tablet by mouth at bedtime acamprosate (Campral) 333 MG EC tablet Take 333 mg by mouth in the morning and 333 mg in the evening and 333 mg before bedtime. 04/07/2024 Activecarvedilol 6.25 mg oral tablet (11 sources)alpha-Adrenergic Radha, beta-Adrenergic BlockerStart: 05-18-2020 take 6.25 mg by mouth twice dailyCarvedilol Active 6.25 MG PO Twice daily May 18, 2020 12:00amtake 1 tablet by mouth once dailycarvedilol (Coreg) 6.25 MG tablet Take 6.25 mg by mouth 1 (one) time each day at the same time Active doxepin hydrochloride 10 mg oral capsule (5 sources)Tricyclic AntidepressantStart: 59-93-7434itsw 1 capsule by mouth every twelve hoursdoxepin (SINEquan) 10 MG capsule Take 10 mg by mouth every 12 (twelve) hours 04/16/2024 Activefolic acid 1 mg oral tablet (2 sources)Start: 05-11-2021 End: 70-90-8030abaa 1 mg by mouth once dailyFolic Acid Active 1 MG PO Daily May 11, 2021 12:13pmhydrOXYzine hydrochloride 25 mg oral tablet (5 sources)AntihistamineStart: 20-48-2710wtpo 1 tablet by mouth every six hours hydrOXYzine HCl (Atarax) 25 MG tablet Take 25 mg by mouth every 6 (six) hours 04/07/2024 Activelevothyroxine sodium 0.05 mg oral tablet (5 sources)l-Thyroxinetake 1 tablet by mouth before mealtimelevothyroxine (Synthroid, Levoxyl) 50 MCG tablet Take 50 mcg by mouth in the morning. Take before meals. Activeliothyronine sodium 0.005 mg oral tablet (5 sources)l-Triiodothyroninetake 1 tablet by mouth once dailyliothyronine (Cytomel) 5 MCG tablet Take 5 mcg by mouth Daily Activelisinopril 2.5 mg oral tablet (7 sources)Angiotensin Converting Enzyme InhibitorStart: 78-41-5647cmgb 2.5 mg by mouth once dailyLisinopril Active 2.5 MG PO Daily April 11, 2021 12:00am Start: 04-20-2020 End: 19-28-3324szrj 10 mg by mouth once dailyLisinopril Discontinued 10 MG PO Daily April 20, 2020 12:00am April 22, 2020 12:04pmmelatonin 10 mg oral tablet (5 sources)Start: 27-45-4257wjzh 1 tablet by mouth at bedtimemelatonin 10 MG tablet Take 10 mg by mouth at bedtime 04/07/2024 Activemirtazapine 45 mg oral tablet (11 sources)Start: 87-80-0670xhsd 45 mg by mouth once dailyMirtazapine Active 45 MG PO Daily April 20, 2020 12:00amofloxacin 3 mg/ml otic solution (3 sources)Quinolone AntimicrobialStart: 07-14-2024 End: 45-44-7218nsfxcqtmi (Floxin) 0.3 % otic solution Indications: ETD (Eustachian tube dysfunction), right Administer 4 drops into the right ear in the morning and 4 drops before bedtime. Do all this for 10 days. 10 mL 07/14/2024 07/24/2024 ActiverisperiDONE 1 mg oral tablet (11 sources)Atypical AntipsychoticStart: 08-01-2265iiez 1 mg by mouth once daily Risperidone Active 1 MG PO Daily April 20, 2020 12:00amrosuvastatin calcium 5 mg oral tablet (5 sources)HMG-CoA Reductase InhibitorStart: 39-44-7904gcxa 1 tablet by mouth once dailyCrestor 5 MG tablet Take 5 mg by mouth 1 (one) time each day at the same time 05/12/2024 Activesimvastatin 10 mg oral tablet (6 sources)HMG-CoA Reductase InhibitorStart: 86-80-9903agwm 1 tablet by mouth once dailysimvastatin (Zocor) 10 MG tablet Take 10 mg by mouth 1 (one) time each day at the same time 04/30/2024 ActiveStart: 04-20-2020 End: 90-81-9447gfkq 10 mg by mouth once dailySimvastatin Discontinued 10 MG PO Daily April 20, 2020 12:00am December 12, 2020 12:20pmtriamcinolone acetonide 1 mg/ml topical cream (3 sources)CorticosteroidStart: 04-30-2024 End: 96-97-8534ortbsxhjxgfob (Kenalog) 0.1 % cream Apply 0.1 application topically in the morning and 0.1 application before bedtime. 04/30/2024 07/14/2024 Discontinued (Therapy completed) Problems Active Problems Problem ClassificationProblemDateDocumented DateEpisodic/ChronicAnxiety disorders (6 sources)Anxiety; Translations: [Anxiety disorder, unspecified]Onset: 943980-85-2669IiecpjcWziwensxvv and other anemia (6 sources)Anemia due to blood loss; Translations: [Iron deficiency anemia secondary to blood loss (chronic)]Onset: 457264-43-9891TgvvumqKfuhfzhxv of lipid metabolism (6 sources)Hypercholesterolemia; Translations: [Pure hypercholesterolemia, unspecified]Onset: 897869-95-5311VrifkbcTsifkbmtglbtha and diverticulitis (5 sources)Diverticulitis; Translations: [Diverticulitis of intestine, part unspecified, without perforation or abscess without bleeding]Onset: 05-25-2024 02-90-8903LulzvfbOrbqajdkl hypertension (10 sources)Essential (primary) hypertension; Translations: [Hypertensive disorder]Onset: 71-62-7502OcdxjrxGzlhaiwuc (1 source)Nonalcoholic steatohepatitis; Translations: [Other chronic nonalcoholic liver disease]ChronicComment on above:Liver Biopsy 2020: The findings are consistent with steatohepatitis with pericellular andperiportal fibrosis, regardless of the etiology, activity score ASAF grade 4 of8, fibrosis stage 2 of 4.;Osteoarthritis (5 sources)Traumatic arthropathy of the shoulder region; Translations: [Post- traumatic osteoarthritis, right shoulder]Onset: 552205-60-3091BieqtgjKqqho circulatory disease (5 sources)H/O: hypertension; Translations: [Personal history of other diseases of circulatory system]EpisodicOther ear and sense organ disorders (5 sources)Bilateral hearing loss; Translations: [Conductive hearing loss, unilateral, right ear with restricted hearing on the contralateral side]Onset: 483410-49-8643FvvmtouHsgxg ear and sense organ disorders (5 sources)Mixed conductive AND sensorineural hearing loss; Translations: [Mixed conductive and sensorineural hearing loss, unilateral, left ear with restricted hearing on the contralateral side]Onset: 963139-16-6950JazawogQvlyx liver diseases (6 sources)Steatosis of liver; Translations: [Fatty (change of) liver, not elsewhere classified]Onset: 862362-16-0627QdjvjyqTfypp liver diseases (5 sources)Hepatic fibrosis; Translations: [Hepatic fibrosis]Onset: 05-25-2024 68-58-5419NxatwutVnngz nutritional; endocrine; and metabolic disorders (5 sources)Hemochromatosis; Translations: [Other hemochromatosis]ChronicOther nutritional; endocrine; and metabolic disorders (5 sources)Iron overload; Translations: [Other disorders of iron metabolism] ChronicOther nutritional; endocrine; and metabolic disorders (5 sources)Hereditary hemochromatosis; Translations: [HEREDITARY HEMOCHROMATOSIS]Onset: 23-83-5257HbktifuCelqp nutritional; endocrine; and metabolic disorders (5 sources)Hemochromatosis, unspecified; Translations: [HEMOCHROMATOSIS UNSPECIFIED]Onset: 32-01-8815YskdeyeBoqig nutritional; endocrine; and metabolic disorders (1 source)Other disorders of iron metabolism; Translations: [OTHER DISORDERS OF IRON METABOLISM]Onset: 62-48-3500QamymonXzrok nutritional; endocrine; and metabolic disorders (6 sources)Hereditary hemochromatosis; Translations: [Hereditary hemochromatosis]Onset: 125026-74-1617XgadnwxXacdy screening for suspected conditions (not mental disorders or infectious disease) (5 sources)Measurement finding above reference range; Translations: [Other nonspecific findings on examinationof blood]EpisodicScreening and history of mental health and substance abuse codes (5 sources)H/O: anxiety state; Translations: [Personal history of other mental disorders]EpisodicUnclassified (3 sources)CONTACT W/AND (SUSP) EXPOS COVID-19; Translations: [CONTACT W/AND (SUSP) EXPOS COVID-19]Onset: 11-22-2021 Past or Other Problems Problem ClassificationProblemDateDocumented DateEpisodic/ChronicAcute and unspecified renal failure (6 sources)Injury of kidney; Translations: [Acute kidney failure, unspecified] Onset: 039068-36-5284BvdsotxqKbgcbsx dysrhythmias (5 sources)Palpitations; Translations: [Palpitations]Onset: EpisodicNoninfectious gastroenteritis (6 sources)Noninfective gastroenteritis and colitis, unspecified; Translations: [Gastroenteritis]Onset: 072633-68-8707RrncgaahHmjob connective tissue disease (5 sources)Unspecified rotator cuff tear or rupture of unspecified shoulder, not specified as traumatic; Translations: [Rotator cuff (capsule) sprain]Onset: 464727-05-4459PgkoktpaXzurd ear and sense organ disorders (5 sources)Hyperacusis of right ear; Translations: [Hyperacusis, right ear] Onset: 324796-14-3891OwyjyszvSxayl gastrointestinal disorders (6 sources)Diarrhea; Translations: [Diarrhea, unspecified]Onset: 05-25-2024 31-51-4398CfkgwojwVqbih liver diseases (4 sources)Abnormal levels of other serum enzymes; Translations: [ABNORMAL LEVELS OTHER SERUM ENZYMES]Onset: 67-72-4431DtiqxcgiCzfxb liver diseases (6 sources)Enzyme level - finding; Translations: [Abnormal levels of other serum enzymes]Onset: 655002-86-0377TbccjzgbHvmvp skin disorders (5 sources)Sebaceous cyst of skin; Translations: [Sebaceous cyst]Onset: 399565-89-4368YfgsyvkiMqfnhd media and related conditions (17 sources)Serous otitis media; Translations: [Unspecified nonsuppurative otitis media, unspecified ear]Onset: 526031-44-6841SymebyfeKogikaljx; thrombophlebitis and thromboembolism (1 source)Phlebitis and thrombophlebitis of superficial vessels of left lower extremity; Translations: [Phlebitis and thrombophlebitis of superficial vessels of left lower extremity]Onset: 45-77-1157OeyadgkyGhyjqapidejs (1 source)CONTACT W/AND (SUSP) EXPOS COVID-19; Translations: [CONTACT W/AND (SUSP) EXPOS COVID-19]Onset: 29-94-8075Tvyydtez veins of lower extremity (1 source)Varicose veins of bilateral lower extremities with pain; Translations: [Varicose veins of bilaterallower extremities with pain]Onset: 03-17-2025 Episodic Results Test NameValueInterpretationReference RangeFacilityPatient Handouton 05-23-2025 Patient HandoutRadiology Sclerotherapy, Care After After sclerotherapy, it is common to have swelling, bruising, and soreness. You may also have: ? Some changes to skin color. ? Slight bleeding from where you got your shot (injection site). Follow these instructions at home: The instructions below may help you care for yourself at home. Your health care provider may give you more instructions. If you have questions, ask your health care provider. Injection site care ? Follow instructions from your health care provider about how to take care of your injection site.Make sure you: ? Wash your hands with soap and water for at least 20 seconds before and after you change your bandage. If you cannot use soap and water, use hand offset lithographic press setter. ? Change your bandage. ? Check the area around any injection sites (injection areas) every day for signs of infection. Check for: ? More redness, swelling, or pain. ? More fluid or blood. ? Warmth. ? Pus or a bad smell. Activity ? Do light exercise every day, as told by your health care provider. Walking or riding a stationarybike may be good options for you. ? Return to your normal activities when your health care provider says that it is safe. Ask what activities are safe for you. General instructions ? Take jqon-trx-zhbyrfm and prescription medicines only as told by your health care provider. ? Do not use lotions or creams on your legs unless your health care provider approves. ? Do not smoke or use any products that contain nicotine or tobacco before the procedure. If you need help quitting, ask your health care provider. ? Wear compression stockings as told by your health care provider. These help to prevent blood clots and reduce swelling in your legs. ? Wear loose-fitting clothes on the treatment area. ? Avoid being in direct sunlight. This includes avoiding: ? Sun tanning. ? Using tanning beds. ? Do not use hot, wet cloths or any form of heat near the injection site. Contact a health care provider if: ? You have more redness, swelling, or pain at any injection area. ? You have more fluid or blood coming from any injection site. ? Any injection area feels warm to the touch. ? You have pus or a bad smell coming from any injection site. ? You have a fever. Get help right away if: ? You have leg pain that gets worse when you walk. ? You have redness or swelling in your leg that is getting worse. ? You have trouble breathing. ? You have chest pain. Summary ? Swelling, bruising, and soreness are common after this procedure. ? Check all injection areas every day for signs of infection. ? Wear compression stockings as told by your health care provider. These stockings help to prevent blood clots and reduce swelling in your legs. This information is not intended to replace advice given to you by your health care provider. Make sure you discuss any questions you have with your health care provider. Document Revised: 01/30/2023 Document Reviewed: 01/30/2023 [employer] Patient Education ? 2024 [employer].[facility] SystemCoding Summaryon 83-66-9321Bcecyn SummaryHTMLBase 64 CdvzwmkeSRn4kDw+PGhlYWQ+DJ8EYYBzW16qsCGgpR4wV8SUADkTNqgjKKKCCFrMBsGbqsQiEJ0bqWYm ZXJu [file] c2U (more content not included)...NormalNorwalk Memorial Hospitaluder HospitalCoding SummaryHTMLBase 64 RytgznvnPHz9fOs+PGhlYWQ+TR4ULXVdS94gnKYmnX1wK4GWZWkWEzoaRMOWOAnRCjSqdrXzNM0ozIYb ZXJu [file] c2U (more content not included)...[facility] LE Venous Duplex Righton 17-46-9508XY LE Venous Duplex RightEXAMINATION: US LE Venous Duplex Right HISTORY: Phlebitis [...] David Quevedo MD 04/26/25 1:56 pm Technologist: [facility] 1st Veinon 19-36-3155US Endovenous Ablation 1st VeinEXAMINATION: US Endovenous Ablation 1st Vein , right [...] Gideon Mace MD 04/19/25 4:00 pm Technologist: [facility] Summaryon 63-67-7750Stxzew Summary HTMLBase 64 HbhuhhxiZSe7dLw+PGhlYWQ+FF6WUDYxB20ivDOvkK8aA5BLUYpAKtutWHHEEAiRUsMaoiEbPM6kjGJx ZXJu [file] c2U (more content not included)...[facility] SystemCoding Summaryon 23-88-4290Myvrdw SummaryHTMLBase 64 RrohtnjlWFe2wHe+PGhlYWQ+BM8YPISvM24rsMNrhN5rO3DTENaQIkufCLUHLObQYzAlhnHwBG7luXDi ZXJu [file] c2U (more content not included)...[facility] SystemUS LE Venous Duplex Lefton 96-94-9263RA LE Venous Duplex LeftEXAMINATION: US LE Venous Duplex Left HISTORY: Phlebitis [...] Gideon Mace MD 03/17/25 3:43 pm Technologist: [facility] CampusCoding Summaryon 92-47-3701Rirfvo Summary HTMLBase 64 AeakfbxeZTb5nXs+PGhlYWQ+WP7HJIGvL48rdFFdtD6kP3QWWBzIPirqABHLTWtEOvPwvzOiLS6chAZz ZXJu [file] c2U (more content not included)...[facility] Endovenous Ablation 1st Veinon 30-38-8616WR Endovenous Ablation 1st VeinEXAMINATION: US Endovenous Ablation 1st Vein HISTORY: Varicose [...] David Quevedo MD 03/10/25 4:09 pm Technologist: [facility] Summaryon 70-91-4656Aqflpv Summary HTMLBase 64 MtdpqggnSKj6bKr+PGhlYWQ+MC5JAIJbO89vhNWenK2zE8VAXZeQZqfwMWDROBbWQiCxpoUgEF4qfJWe ZXJu [file] c2U (more content not included)...NormalCogrselect medical specialty hospital [facility] LE Venous Duplex Righton 67-73-8947BX LE Venous Duplex RightEXAMINATION: US LE Venous Duplex Right HISTORY: Phlebitis [...] David Quevedo MD 02/17/25 2:21 pm Technologist: [facility] Endovenous Ablation 1st Veinon 56-31-8595VL Endovenous Ablation 1st VeinEXAMINATION: US Endovenous Ablation right great saphenous vein [...] Gideon Mace MD 02/11/25 5:10 am Technologist: [facility] 12-LEADon 23-66-39[place], [place] [id number] Electrocardiograph Report Signed Patient: CHUY CHAPIN MR#: [id number] : 1970 Acct:[id number] Age/Sex: 54 / M ADM Date: 06/22/24 Loc: [facility] Attending Dr: Vivienne Veláqzuez M.D. Ordering Physician: Vivienne Velázquez M.D. 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 Signed By: 06/25/24604 DD/ 56 TD/TT: Furniture Sales Associate:TBHRadiology, Radiologist, MD - 06/25/2024 [place] [address] Electrocardiograph Report Signed Patient: CHUY CHAPIN MR#: [id number] : 1970 Acct:[id number] Age/Sex: 54 / M ADM Date: 06/22/24 Loc: PST Attending Dr: Vivinene Velázquez M.D. Ordering Physician: Vivienne Velázquez M.D. 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 Signed By: 06/25/24604 DD/ 56 TD/TT: Furniture Sales Associate: ROBB Javed 12-LEADOrdered By: Radiologist Radiology on 07-48-7063YLAL [employer] Work Phone: ECG 12-LEADon 86-56-2201Xluflmsnw Study observation (narrative)ROBB DesaiIn office Testingon 04-78-2713Kz office Testing [id number]#1.00CD:127NormalGerman HospitalAMYLASEon 11-44-1578Lyxslqj [Catalytic activity/Vol]53 U/HZegfog52-071Tmz [facility] HospitalComment on above:Performed By: #### T7, LIPA, TSH, AMADOU, CMP #### [facility] [address] [place] [address] Dr. Krystle Stinson AUTO DIFFon 01-53-6423NPHB #0.0 103/ulNormal0.0-0.1The [facility] HospitalComment on above:Performed By: #### FERR #### [facility] [address] [place] [address] Dr. Krystle Khansophils/100 WBC (Bld)0.6 %Normal0.2-2.0[facility] Comment on above:Performed By: #### FERR #### [facility] [address] [place] [address] Dr. Krystle Joiner #0.1 103/ulNormal0.0-0.7The [facility] HospitalComment on above: Performed By: #### FERR #### [facility] [address] [place] [address] Dr. Krystle Flynnosinophils/100 WBC (Bld)2.7 %Normal0.9-7.0[facility] Comment on above:Performed By: #### FERR #### [facility] [address] [place] [address] Dr. Krystle Flynnrythrocyte distribution width (RBC) [Ratio]16.0 %Critically high 11.0-15.0The [facility] HospitalComment on above:Performed By: #### FERR #### [facility] [address] [place] [address] Dr. Krystle HeatonHematocrit (Bld) [Volume fraction]42.8 %Hnfeiy87.0-54.0The [facility] HospitalComment on above:Performed By: #### FERR #### [facility] [address] [place] [address] Dr. Krystle HeatonHemoglobin (Bld) [Mass/Vol]13.0 g/dLCritically low14.0-18.0The [facility] HospitalComment on above:Performed By: #### FERR #### [facility] [address] [place] [address] Dr. Krystle Garland #0.02 10e3/ulNormal0.00-0.03The [facility] HospitalComment on above:Performed By: #### FERR #### [facility] [address] [place] [address] Dr. Krystle Garland %0.4 %Normal0.0-0.5The [facility] HospitalComment on above: Performed By: #### FERR #### [facility] [address] [place] [address] Dr. Krystle Fernandez #0.9 103/ulCritically low1.2-3.8[facility] Comment on above:Performed By: #### FERR #### [facility] [address] [place] [address] Dr. Krystle Phoenixmphocytes/100 WBC (Bld)19.1 %Critically low20.5-60.0The [facility] HospitalComment on above:Performed By: #### FERR #### [facility] [address] [place] [address] Dr. Krystle HeatonMANUAL DIFF REQNONormalThe [facility] Cross HospitalComment on above: Performed By: #### FERR #### [facility] [address] [place] [address] Dr. Krystle Farrar (RBC) [Entitic mass]27.7 lvEdctfc57.9-34.0The [facility] HospitalComment on above:Performed By: #### FERR #### [facility] [address] [place] [address] Dr. Krystle LandryHC (RBC) [Mass/Vol]30.4 g/bHKafiyg85.9-35.2The [facility] HospitalComment on above:Performed By: #### FERR #### [facility] [address] [place] [address] Dr. Krystle LandryV (RBC) [Entitic vol]91.1 uNGrsfal13.0-94.0The Protivin HospitalComment on above:Performed By: #### FERR #### [facility] [address] [place] [address] Dr. Krystle Sanchez #0.5 103/ulNormal0.3-0.8The [facility] HospitalComment on above:Performed By: #### FERR #### [facility] [address] [place] [address] Dr. Krystle Jeanocytes/100 WBC (Bld)10.4 %Normal1.7-12.0[facility] Comment on above:Performed By: #### FERR #### [facility] [address] [place] [address] Dr. Krystle IslasUT #3.2 103/ulNormal1.4-6.5The [facility] HospitalComment on above:Performed By: #### FERR #### [facility] [address] [place] [address] Dr. Krystle Islasutrophils/100 WBC (Bld)66.8 %Iflnfl52.0-75.0The [facility] HospitalComment on above:Performed By: #### FERR #### [facility] [address] [place] [address] Dr. Krystle Francolet mean volume (Bld) [Entitic vol]11.3 fLNormal9.5-13.5The [facility] HospitalComment on above:Performed By: #### FERR #### [facility] [address] [place] [address] Dr. Krystle HeatonPLT177 103/xeNesftn683-675Sng Green Cross HospitalComment on above: Performed By: #### FERR #### [facility] [address] [place] [address] Dr. Krystle HeatonRBC4.70 106/ulNormal4.70-6.10The [facility] Cross HospitalComment on above:Performed By: #### FERR #### [facility] [address] [place] [address] Dr. Krystle HeatonWBC4.8 103/ulNormal4.0-11.0The [facility] Cross HospitalComment on above: Performed By: #### FERR #### [facility] [address] [place] [address] Dr. Krystle HeatonFERRITINon [id number] [Mass/Vol]63.0 ng/mLNormal 17.9-464.0The [facility] on above:Performed By: #### CBC #### [facility] [address] [place] [address] Billy [facility]Select [facility], [facility] THYROXINE INDEX T7on 08-08-8701EMT4.14NormalThe [facility] on above:Performed By: #### T7, LIPA, TSH, AMADOU, CMP #### [facility] [address] [place] [address] Dr. Krystle HeatonT3U34.0 %Ezsade13.5-40.5The [facility] on above: Performed By: #### T7, LIPA, TSH, AMADOU, CMP #### [facility] [address] [place] [address] Dr. Krystle HeatonT4 [Mass/Vol]6.30 ug/dLNormal5.53-11.00The [facility] Comment on above:Performed By: #### T7, LIPA, TSH, AMADOU, CMP #### [facility] [address] [place] [address] Dr. Krystle HeatonLIPASEon [id number] [Catalytic activity/Vol]115.0 U/LNormal 23.0-300.0The [facility] on above:Performed By: #### T7, LIPA, TSH, AMADOU, CMP #### [facility] [address] [place] [address] Dr. Krystle Barney 14(COMP METB)on [id number] [Mass/Vol]3.6 g/dLNormal 3.5-5.0The [facility] Cross HospitalComment on above:Performed By: #### T7, LIPA, TSH, AMADOU, CMP #### [facility] [address] [place] [address] Dr. Krystle HeatonAlbumin/Globulin [Mass ratio]0.9 {ratio}NormalThe [facility] Cross HospitalComment on above:Performed By: #### T7, LIPA, TSH, AMADOU, CMP #### [facility] [address] [place] [address] Dr. Krystle Burns [Catalytic activity/Vol]94 U/MHcibto05-273Fbn [facility] HospitalComment on above:Performed By: #### T7, LIPA, TSH, AMADOU, CMP #### [facility] [address] [place] [address] Dr. Krystle Posada [Catalytic activity/Vol]103 U/LCritically urct46-48Khb [facility] HospitalComment on above:Performed By: #### T7, LIPA, TSH, AMADOU, CMP #### [facility] [address] [place] [address] Dr. Krystle Ortiz gap [Moles/Vol]12.8 mmol/LNormalThe [facility] Comment on above:Performed By: #### T7, LIPA, TSH, AMADOU, CMP #### [facility] [address] [place] [address] Dr. Krystle Wright [Catalytic activity/Vol]148 U/LCritically caqc52-80Iby [facility] HospitalComment on above:Performed By: #### T7, LIPA, TSH, AMADOU, CMP #### [facility] [address] [place] [address] Dr. Krystle Espinozairubin [Mass/Vol]1.2 mg/dLNormal0.2-1.3The [facility] Comment on above:Performed By: #### T7, LIPA, TSH, AMADOU, CMP #### [facility] [address] [place] [address] Dr. Krystle HeatonCalcium [Mass/Vol]9.1 mg/dLNormal8.4-10.2[facility] Comment on above:Performed By: #### T7, LIPA, TSH, AMADOU, CMP #### [facility] [address] [place] [address] Dr. Krystle HeatonChloride [Moles/Vol]100 mmol/AKbgzlh96-013Lkt [facility] Comment on above:Performed By: #### T7, LIPA, TSH, AMADOU, CMP #### [facility] [address] [place] [address] Dr. Krystle HeatonCO2 [Moles/Vol]26.7 mmol/VOwkyjx17.0-30.0[facility] Comment on above:Performed By: #### T7, LIPA, TSH, AMADOU, CMP #### [facility] [address] [place] [address] Dr. Krystle HeatonCreatinine [Mass/Vol]0.94 mg/dLNormal0.66-1.25ThTrinity Health System Twin City Medical CenterComment on above:Performed By: #### T7, LIPA, TSH, AMADOU, CMP #### [facility] [address] [place] [address] Dr. Krystle FlynnGFR-AF WALLISIAN>60Normal>=60The [facility] HospitalComment on above:Performed By: #### T7, LIPA, TSH, AMADOU, CMP #### [facility] [address] [place] [address] Dr. Krystle FlynnGFR-NON AF WALLISIAN>60Normal>=60The [facility] HospitalComment on above:Performed By: #### T7, LIPA, TSH, AMADOU, CMP #### [facility] [address] [place] [address] Dr. Krystle HeatonGlobulin (S) [Mass/Vol]4.0 g/dLNormalThe [facility] HospitalComment on above:Performed By: #### T7, LIPA, TSH, AMADOU, CMP #### [facility] [address] [place] [address] Dr. Krystle HeatonGlucose [Mass/Vol]112 mg/dLCritically jhsc58-360Ycq [facility] HospitalComment on above:Performed By: #### T7, LIPA, TSH, AMADOU, CMP #### [facility] [address] [place] [address] Dr. Krystle HeatonPotassium [Moles/Vol]4.5 mmol/LNormal3.4-5.0The [facility] Comment on above:Performed By: #### T7, LIPA, TSH, AMADOU, CMP #### [facility] [address] [place] [address] Dr. Krystle HeatonProtein [Mass/Vol]7.6 g/dLNormal6.1-8.2The [facility] Comment on above:Performed By: #### T7, LIPA, TSH, AMADOU, CMP #### [facility] [address] [place] [address] Dr. Krystle HeatonSodium [Moles/Vol]135 mmol/LCritically pid239-714Cga [facility] HospitalComment on above:Performed By: #### T7, LIPA, TSH, AMADOU, CMP #### [facility] [address] [place] [address] Dr. Krystle HeatonUrea nitrogen [Mass/Vol]5.0 mg/dLCritically low9.0-20.0The [facility] HospitalComment on above:Performed By: #### T7, LIPA, TSH, AMADOU, CMP #### [facility] [address] [place] [address] Dr. Krystle HeatnoUrea nitrogen/Creatinine [Mass ratio]5.3 mg/mgNormalThe [facility] Cross HospitalComment on above:Performed By: #### T7, LIPA, TSH, AMADOU, CMP #### [facility] [address] [place] [address] Dr. Krystle Edmonds 45-42-3275ECZ2.842 uIU/mLNormal0.470-4.680The [facility] HospitalComment on above:Performed By: #### T7, LIPA, TSH, AMDAOU, CMP #### [facility] [address] [place] [address] Dr. Krystle Fenton RANGES BELOWNoWayne HealthCare Main CampusComment on above: Result Comment: <0.34 UIU/ml HYPERTHYROID 0.34-5.60 UIU/ml EUTHYROID >5.60 UIU/ml HYPOTHYROIDPerformed By: #### T7, LIPA, TSH, AMADOU, CMP #### [facility] [address] [place] [address] Dr. Krystle HeatonCovid-19 PCR ([facility])on 89-40-9479OXFC-CoV-2 (COVID-19) RNA JIMBO+probe Ql (Unsp spec)Not detectedNormalNOT DETECTEDThe [facility] Comment on above:Result Comment: This test is not yet approved or cleared by the [place] FDA. When there are no FDA-approved or cleared tests available, and other criteria are met, FDA can make tests available under an emergency access mechanism called an Emergency Use Authorization (EUA). The EUA for this test is supported by the [place] Registered Nurse Rn of Health and Human Service's (HHS's) declaration that circumstances exist to justify the emergency use of in vitro diagnostics for the detection and/or diagnosis of the virus that causes COVID- 19. This EUA will remain in effect (meaning [...] of clinical signs and symptoms consistent with SARS-CoV-2.Performed By: #### FERR #### [facility] [address] [place] [address] Dr. Krystle Stinson AUTO DIFFon [id number] #0.0 103/ulNormal0.0-0.1The [facility] Cross HospitalComment on above:Performed By: #### T7, LIPA, TSH, AMADOU, CMP #### [facility] [address] [place] [address] Dr. Yilan ChangBasophils/100 WBC (Bld)0.7 %Normal0.2-2.0The [facility] Comment on above:Performed By: #### T7, LIPA, TSH, AMADOU, CMP #### [facility] [address] [place] [address] Dr. Krystle Joiner #0.2 103/ulNormal0.0-0.7The [facility] HospitalComment on above: Performed By: #### T7, LIPA, TSH, AMADOU, CMP #### [facility] [address] [place] [address] Dr. Krystle Flynnosinophils/100 WBC (Bld)3.6 %Normal0.9-7.0The [facility] Comment on above:Performed By: #### T7, LIPA, TSH, AMADOU, CMP #### [facility] [address] [place] [address] Dr. Krystle Johnthrocyte distribution width (RBC) [Ratio]16.0 %Critically high 11.0-15.0The [facility] HospitalComment on above:Performed By: #### T7, LIPA, TSH, AMADOU, CMP #### [facility] [address] [place] [address] Dr. Krystle HeatonHematocrit (Bld) [Volume fraction]38.7 %Critically low42.0-54.0 The [facility] Cross HospitalComment on above:Performed By: #### T7, LIPA, TSH, AMADOU, CMP #### [facility] [address] [place] [address] Dr. Krystle HeatonHemoglobin (Bld) [Mass/Vol]11.7 g/dLCritically low14.0-18.0The [facility] HospitalComment on above:Performed By: #### T7, LIPA, TSH, AMADOU, CMP #### [facility] [address] [place] [address] Dr. Krystle HeatonIG #0.01 10e3/ulNormal0.00-0.03The [facility] HospitalComment on above:Performed By: #### T7, LIPA, TSH, AMADOU, CMP #### [facility] [address] [place] [address] Dr. Krystle Garland %0.2 %Normal0.0-0.5The [facility] HospitalComment on above: Performed By: #### T7, LIPA, TSH, AMADOU, CMP #### [facility] [address] [place] [address] Dr. Krystle Fernandez #1.6 103/ulNormal1.2-3.8The [facility] HospitalComment on above:Performed By: #### T7, LIPA, TSH, AMADOU, CMP #### [facility] [address] [place] [address] Dr. Krystle Gillhocytes/100 WBC (Bld)29.2 %Mqttlz11.5-60.0The [facility] HospitalComment on above:Performed By: #### T7, LIPA, TSH, AMADOU, CMP #### [facility] [address] [place] [address] Dr. Krystle CruzUAL DIFF REQNONormalThe [facility] HospitalComment on above: Performed By: #### T7, LIPA, TSH, AMADOU, CMP #### [facility] [address] [place] [address] Dr. Krystle Landry (RBC) [Entitic mass]27.7 kqKxjuke45.9-34.0The [facility] HospitalComment on above:Performed By: #### T7, LIPA, TSH, AMADOU, CMP #### [facility] [address] [place] [address] Dr. Krystle Landry (RBC) [Mass/Vol]30.2 g/vHZoqhrj34.9-35.2The [facility] HospitalComment on above:Performed By: #### T7, LIPA, TSH, AMADOU, CMP #### [facility] [address] [place] [address] Dr. Krystle Landry (RBC) [Entitic vol]91.5 gIFcmfsu05.0-94.0The [facility] HospitalComment on above:Performed By: #### T7, LIPA, TSH, AMADOU, CMP #### [facility] [address] [place] [address] Dr. Krystle Sanchez #0.6 103/ulNormal0.3-0.8The [facility] HospitalComment on above:Performed By: #### T7, LIPA, TSH, AMADOU, CMP #### [facility] [address] [place] [address] Dr. Krystle Jeanocytes/100 WBC (Bld)10.5 %Normal1.7-12.0The [facility] Comment on above:Performed By: #### T7, LIPA, TSH, AMADOU, CMP #### [facility] [address] [place] [address] Dr. Krystle Rainey #3.1 103/ulNormal1.4-6.5The [facility] HospitalComment on above:Performed By: #### T7, LIPA, TSH, AMADOU, CMP #### [facility] [address] [place] [address] Dr. Krystle Islasutrophils/100 WBC (Bld)55.8 %Hgjbpp24.0-75.0The [facility] HospitalComment on above:Performed By: #### T7, LIPA, TSH, AMADOU, CMP #### [facility] [address] [place] [address] Dr. Krystle Moody mean volume (Bld) [Entitic vol]10.9 fLNormal9.5-13.5The [facility] HospitalComment on above:Performed By: #### T7, LIPA, TSH, AMADOU, CMP #### [facility] [address] [place] [address] Dr. Krystle HeatonPLT214 103/iaFxgoyo609-213Skx [facility] HospitalComment on above: Performed By: #### T7, LIPA, TSH, AMADOU, CMP #### [facility] [address] [place] [address] Dr. Krystle HeatonRBC4.23 106/ulCritically low4.70-6.10The [facility] HospitalComment on above:Performed By: #### T7, LIPA, TSH, AMADOU, CMP #### [facility] [address] [place] [address] Dr. Krystle HeatonWBC5.5 103/ulNormal4.0-11.0The [facility] HospitalComment on above: Performed By: #### T7, LIPA, TSH, AMADOU, CMP #### [facility] [address] [place] [address] Dr. Krystle HeatonFERRITINon 28-73-8689Kjvbungd [Mass/Vol]59.0 ng/mLNormal 17.9-464.0The [facility] HospitalComment on above:Performed By: #### T7, LIPA, TSH, AMADOU, CMP #### [facility] [address] [place] [address] Dr. Krystle HeatonCBC AUTO DIFFon [id number] #0.0 103/ulNormal0.0-0.1The [facility] HospitalComment on above:Performed By: #### CBC #### [facility] [address] [place] [address] Billy KarenBasophils/100 WBC (Bld)0.8 %Normal0.2-2.0The [facility] Comment on above:Performed By: #### CBC #### [facility] [address] [place] [address] Billy KarenEO #0.1 103/ulNormal0.0-0.7The [facility] HospitalComment on above: Performed By: #### CBC #### [facility] [address] [place] [address] Billy KarenEosinophils/100 WBC (Bld)3.5 %Normal0.9-7.0The [facility] Comment on above:Performed By: #### CBC #### [facility] [address] [place] [address] Billy KarenErythrocyte distribution width (RBC) [Ratio]16.7 %Critically high 11.0-15.0The [facility] HospitalComment on above:Performed By: #### CBC #### [facility] [address] [place] [address] Billy KarenHematocrit (Bld) [Volume fraction]40.6 %Critically low42.0-54.0The [facility] HospitalComment on above:Performed By: #### CBC #### [facility] [address] [place] [address] Billy KarenHemoglobin (Bld) [Mass/Vol]12.4 g/dLCritically low14.0-18.0The [facility] HospitalComment on above:Performed By: #### CBC #### [facility] [address] [place] [address] Billy KarenIG #0.01 10e3/ulNormal0.00-0.03The [facility] HospitalComment on above:Performed By: #### CBC #### [facility] [address] [place] [address] Billy KarenIG %0.3 %Normal0.0-0.5The [facility] HospitalComment on above: Performed By: #### CBC #### [facility] [address] [place] [address] Billy KarenLYMPH #1.5 103/ulNormal1.2-3.8The [facility] HospitalComment on above: Performed By: #### CBC #### [facility] [address] [place] [address] Billy KarenLymphocytes/100 WBC (Bld)39.7 %Jvrlld23.5-60.0[facility] Comment on above:Performed By: #### CBC #### [facility] [address] [place] [address] Billy KarenMANUAL DIFF REQNONormalThe [facility] HospitalComment on above: Performed By: #### CBC #### [facility] [address] [place] [address] Billy KarenMCH (RBC) [Entitic mass]27.6 llGdoxuh97.9-34.0The [facility] Comment on above:Performed By: #### CBC #### [facility] [address] [place] [address] Billy KarenMCHC (RBC) [Mass/Vol]30.5 g/ySSnirbe74.9-35.2The [facility] Comment on above:Performed By: #### CBC #### [facility] [address] [place] [address] Billy KarenMCV (RBC) [Entitic vol]90.2 yPBvjgkz19.0-94.0The [facility] Comment on above:Performed By: #### CBC #### [facility] [address] [place] [address] Billy KarenMONO #0.5 103/ulNormal0.3-0.8The [facility] HospitalComment on above: Performed By: #### CBC #### [facility] [address] [place] [address] Billy KarenMonocytes/100 WBC (Bld)13.3 %Critically high1.7-12.0The [facility] Cross HospitalComment on above:Performed By: #### CBC #### [facility] [address] [place] [address] Billy KarenNEUT #1.6 103/ulNormal1.4-6.5The [facility] HospitalComment on above: Performed By: #### CBC #### [facility] [address] [place] [address] Billy KarenNeutrophils/100 WBC (Bld)42.4 %Critically low43.0-75.0The [facility] HospitalComment on above:Performed By: #### CBC #### [facility] [address] [place] [address] Billy KarenPlatelet mean volume (Bld) [Entitic vol]11.5 fLNormal9.5-13.5The [facility] HospitalComment on above:Performed By: #### CBC #### [facility] [address] [place] [address] Billy XagqcGUP979 103/ulCritically ypv959-089Wqt [facility] HospitalComment on above:Performed By: #### CBC #### [facility] [address] [place] [address] Billy KarenRBC4.50 106/ulCritically low4.70-6.10The [facility] HospitalComment on above:Performed By: #### CBC #### [facility] [address] [place] [address] Billy DeanenWBC3.7 103/ulCritically low4.0-11.0The [facility] HospitalComment on above:Performed By: #### CBC #### [facility] [address] [place] [address] Billy DeanenFERRITINon 98-15-7675Oflkpovi [Mass/Vol]106.0 ng/qIKwqkwz26.9-464.0 The [facility] HospitalComment on above:Performed By: #### FERR #### [facility] [address] [place] [address] Dr. Krystle Stinson AUTO DIFFon [id number] #0.0 103/ulNormal0.0-0.1The [facility] HospitalComment on above:Performed By: #### CBC #### [facility] [address] [place] [address] Dr. Krystle Khansophils/100 WBC (Bld)0.8 %Normal0.2-2.0The [facility] Comment on above:Performed By: #### CBC #### [facility] [address] [place] [address] Dr. Krystle Joiner #0.2 103/ulNormal0.0-0.7The [facility] HospitalComment on above: Performed By: #### CBC #### [facility] [address] [place] [address] Dr. Krystle Flynnosinophils/100 WBC (Bld)4.4 %Normal0.9-7.0The [facility] Comment on above:Performed By: #### CBC #### [facility] [address] [place] [address] Dr. Krystle Flynnrythrocyte distribution width (RBC) [Ratio]15.7 %Critically high 11.0-15.0The [facility] HospitalComment on above:Performed By: #### CBC #### [facility] [address] [address] [address] Krystle HeatonHematocrit (Bld) [Volume fraction]39.4 %Critically low42.0-54.0 The [facility] HospitalComment on above:Performed By: #### CBC #### [facility] [address] [place] [address] Dr. Krystle HeatonHemoglobin (Bld) [Mass/Vol]12.2 g/dLCritically low14.0-18.0The [facility] HospitalComment on above:Performed By: #### CBC #### [facility] [address] [place] [address] Dr. Krystle Garland #0.01 10e3/ulNormal0.00-0.03The [facility] HospitalComment on above:Performed By: #### CBC #### [facility] [address] [place] [address] Dr. Krystle Garland %0.2 %Normal0.0-0.5The [facility] HospitalComment on above: Performed By: #### CBC #### [facility] [address] [place] [address] Dr. Krystle Fernandez #1.5 103/ulNormal1.2-3.8The [facility] HospitalComkresge eye institute on above:Performed By: #### CBC #### [facility] [address] [place] [address] Dr. Krystle Phoenixmphocytes/100 WBC (Bld)32.2 %Cwoahj38.5-60.0The [facility] on above:Performed By: #### CBC #### [facility] [address] [place] [address] Dr. Krystle CruzUAL DIFF REQNONormalThe [facility] HospitalComment on above: Performed By: #### CBC #### [facility] [address] [place] [address] Dr. Krystle Farrar (RBC) [Entitic mass]27.4 elGgutqq85.9-34.0The [facility] HospitalComment on above:Performed By: #### CBC #### [facility] [address] [place] [address] Dr. Krystle LandryHC (RBC) [Mass/Vol]31.0 g/dQPqmasv77.9-35.2The [facility] HospitalComment on above:Performed By: #### CBC #### [facility] [address] [place] [address] Dr. Krystle LandryV (RBC) [Entitic vol]88.5 dEWwulol45.0-94.0The [facility] HospitalComment on above:Performed By: #### CBC #### [facility] [address] [place] [address] Dr. Krystle Sanchez #0.6 103/ulNormal0.3-0.8The [facility] HospitalComment on above:Performed By: #### CBC #### [facility] [address] [place] [address] Dr. Krystle Jeanocytes/100 WBC (Bld)11.7 %Normal1.7-12.0The [facility] Comment on above:Performed By: #### CBC #### [facility] [address] [place] [address] Dr. Krystle Rainey #2.4 103/ulNormal1.4-6.5The [facility] HospitalComment on above:Performed By: #### CBC #### [facility] [address] [place] [address] Dr. Krystle Islasutrophils/100 WBC (Bld)50.7 %Owoscl18.0-75.0The [facility] HospitalComment on above:Performed By: #### CBC #### [facility] [address] [place] [address] Dr. Krystle Francolet mean volume (Bld) [Entitic vol]11.4 fLNormal9.5-13.5The [facility] HospitalComment on above:Performed By: #### CBC #### [facility] [address] [place] [address] Dr. Krystle HeatonPLT169 103/hqFkbnca088-101Jbl [facility] HospitalComment on above: Performed By: #### CBC #### [facility] [address] [place] [address] Dr. Krystle HeatonRBC4.45 106/ulCritically low4.70-6.10The [facility] HospitalComment on above:Performed By: #### CBC #### [facility] [address] [place] [address] Dr. Krystle HeatonWBC4.8 103/ulNormal4.0-11.0The [facility] HospitalComment on above: Performed By: #### CBC #### [facility] [address] [place] [address] Dr. Krystle HeatonFERRITINon 77-81-9327Rnuqluji [Mass/Vol]103.0 ng/mLNormal 17.9-464.0The [facility] HospitalComment on above:Performed By: #### T7, LIPA, TSH, AMADOU, CMP #### [facility] [address] [place] [address] Dr. Krystle Jacobo Panel Informationon [id number] CHUY CHAPIN Pathologist: COLLETTE DOTSON MD Date of Procedure: 07/31/2021 Date Received:XJ-Vthpabeqvffwnzfm-Fcfbnokw 2099[facility] Work Phone: Radiologyon [id number] Guidance for fine needle aspiration of FnhxmBdecmdUZ-Amwhyszkfwhzrfju-Lgeeoyyo 2100A [facility] Work Phone: [facility] Surgical Pathology Departmenton [id number] Surgical Pathology DepartmentName CHUY CHAPIN Pathologist: COLLETTE DOTSON MD Date [...] toto in 2 cassettes A1 and A2. [facility]/07/31/2021 The assays/tests were performed with appropriate positive and negative controls which stained appropriately. [facility] Department of Pathology [address] [place], [place] [address]Comment on above:Performed By: #### [facility] #### [facility] Surgical Pathology Department [address] [place], [place] [address]US BIOPSY LIVER PERon [id number] BIOPSY LIVER PERMRN: [id number] Patient Name: CHUY CHAPIN STUDY: US BIOPSY LIVER PER; 07/31/2021 1:03 pm PROCEDURE: ULTRASOUND GUIDED NON TARGETED RANDOM BIOPSY OF THE LIVER INDICATION: Hemochromatosis; here for tissue diagnosis COMPARISON: CT-guided liver biopsy 05/08/2021. ACCESSION NUMBER(S): [id number] ORDERING CLINICIAN: [employer] INSTRUCTOR: Dr. Roland (attending) Dee Lopes MD MEDICATIONS: [...] as stated. This study was interpreted at [facility], [place], [place]. Electronically signed by: Jas BIGGS [facility] CBC AUTO DIFFon [id number] #0.0 103/ulNormal0.0-0.1[facility] Comment on above:Performed By: #### T7, LIPA, TSH, AMADOU, CMP #### [facility] [address] [address] [address] Krystle Khansophils/100 WBC (Bld)0.6 %Normal0.2-2.0[facility] Comment on above:Performed By: #### T7, LIPA, TSH, AMADOU, CMP #### [facility] [address] [address] [address] Krystle Joiner #0.2 103/ulNormal0.0-0.7[facility] HospitalComment on above: Performed By: #### T7, LIPA, TSH, AMADOU, CMP #### [facility] [address] [place] [address] Dr. Krystle Flynnosinophils/100 WBC (Bld)3.6 %Normal0.9-7.0[facility] Comment on above:Performed By: #### T7, LIPA, TSH, AMADOU, CMP #### [facility] [address] [place] [address] Dr. Krystle Flynnrythrocyte distribution width (RBC) [Ratio]14.7 %Ironif48.0-15.0 [facility] on above:Performed By: #### T7, LIPA, TSH, AMADOU, CMP #### [facility] [address] [place] [address] Dr. Krystle HeatonHematocrit (Bld) [Volume fraction]37.4 %Critically low42.0-54.0 [facility] HospitalComment on above:Performed By: #### T7, LIPA, TSH, AMADOU, CMP #### [facility] [address] [place] [address] Dr. Krystle HeatonHemoglobin (Bld) [Mass/Vol]11.5 g/dLCritically low14.0-18.0[facility] on above:Performed By: #### T7, LIPA, TSH, AMADOU, CMP #### [facility] [address] [place] [address] Dr. Krystle Garland #0.02 10e3/ulNormal0.00-0.03[facility] on above:Performed By: #### T7, LIPA, TSH, AMADOU, CMP #### [facility] [address] [place] [address] Dr. Krystle Garland %0.4 %Normal0.0-0.5The [facility] HospitalComment on above: Performed By: #### T7, LIPA, TSH, AMADOU, CMP #### [facility] [address] [place] [address] Dr. Krystle Fernandez #1.5 103/ulNormal1.2-3.8The [facility] HospitalComment on above:Performed By: #### T7, LIPA, TSH, AMADOU, CMP #### [facility] [address] [place] [address] Dr. Krystle Phoenixmphocytes/100 WBC (Bld)31.3 %Uollyh19.5-60.0The [facility] HospitalComment on above:Performed By: #### T7, LIPA, TSH, AMADOU, CMP #### [facility] [address] [place] [address] Dr. Krystle Brewer DIFF REQNONormalThe [facility] HospitalComment on above: Performed By: #### T7, LIPA, TSH, AMADOU, CMP #### [facility] [address] [place] [address] Dr[facility] (RBC) [Entitic mass]27.8 rqRjpzbr65.9-34.0The [facility] HospitalComment on above:Performed By: #### T7, LIPA, TSH, AMADOU, CMP #### [facility] [address] [place] [address] Dr. [facility] (RBC) [Mass/Vol]30.7 g/sUJdywko94.9-35.2[facility] on above:Performed By: #### T7, LIPA, TSH, AMADOU, CMP #### [facility] [address] [place] [address] Dr. Krystle Landry (RBC) [Entitic vol]90.6 cJHslvnr58.0-94.0The [facility] on above:Performed By: #### T7, LIPA, TSH, AMADOU, CMP #### [facility] [address] [place] [address] Dr. Krystle Sanchez #0.6 103/ulNormal0.3-0.8[facility] on above:Performed By: #### T7, LIPA, TSH, AMADOU, CMP #### [facility] [address] [place] [address] Dr. Krystle Jeanocytes/100 WBC (Bld)12.8 %Critically high1.7-12.0The [facility] HospitalComment on above:Performed By: #### T7, LIPA, TSH, AMADOU, CMP #### [facility] [address] [place] [address] Dr. Krystle Rainey #2.4 103/ulNormal1.4-6.5The [facility] HospitalComment on above:Performed By: #### T7, LIPA, TSH, AMADOU, CMP #### [facility] [address] [place] [address] Dr. Krystle Islasutrophils/100 WBC (Bld)51.3 %Uigsci97.0-75.0The [facility] HospitalComment on above:Performed By: #### T7, LIPA, TSH, AMADOU, CMP #### [facility] [address] [place] [address] Dr. Krystle Francolet mean volume (Bld) [Entitic vol]11.4 fLNormal9.5-13.5The [facility] HospitalComment on above:Performed By: #### T7, LIPA, TSH, AMADOU, CMP #### [facility] [address] [place] [address] Dr. Krystle HeatonPLT190 103/irKsqzby905-960Ihu [facility] on above: Performed By: #### T7, LIPA, TSH, AMADOU, CMP #### [facility] [address] [place] [address] Dr. Krystle HeatonRBC4.13 106/ulCritically low4.70-6.10[facility] on above:Performed By: #### T7, LIPA, TSH, AMADOU, CMP #### [facility] [address] [place] [address] Dr. Krystle HeatonWBC4.7 103/ulNormal4.0-11.0[facility] on above: Performed By: #### T7, LIPA, TSH, AMADOU, CMP #### [facility] [address] [place] [address] Dr. Krystle Reinoso [id number] Coag (PPP) [Relative time]1.00 {INR} NormalHolzer HospitalComment on above:Performed By: #### HBSANS #### [facility] [address] [place] [address] Billy DeanenINR GUIDELINESSEE BELOWNormalThTrinity Health System Twin City Medical CenterComment on above: Result Comment: DESIRED INR: 2.0 - 3.0 CONDITIONS NOT LISTED BELOW 2.5 - 3.5 FOR PROSTHETIC HEART VALVE REPLACEMENT 2.5 - 3.5 RECURRENT THROMBOSISPerformed By: #### HBSANS #### [facility] [address] [place] [address] Billy DeanenPT Coag (PPP) [Time]10.8 sNormal9.0-11.6The [facility] HospitalComment on above:Performed By: #### HBSANS #### [facility] [address] [place] [address] Billy DeanenCBC AUTO DIFFon [id number] #0.0 103/ulNormal0.0-0.1[facility] HospitalComment on above:Performed By: #### T7, LIPA, TSH, AMADOU, CMP #### [facility] [address] [place] [address] Dr. Krystle Khansophils/100 WBC (Bld)0.4 %Normal0.2-2.0[facility] Comment on above:Performed By: #### T7, LIPA, TSH, AMADOU, CMP #### [facility] [address] [place] [address] Dr. Krystle FlynnO #0.2 103/ulNormal0.0-0.7The [facility] HospitalComment on above: Performed By: #### T7, LIPA, TSH, AMADOU, CMP #### [facility] [address] [place] [address] Dr. Krystle Flynnosinophils/100 WBC (Bld)2.9 %Normal0.9-7.0[facility] Comment on above:Performed By: #### T7, LIPA, TSH, AMADOU, CMP #### [facility] [address] [place] [address] Dr. Krystle Flynnrythrocyte distribution width (RBC) [Ratio]13.9 %Mwuhjj20.0-15.0 [facility] on above:Performed By: #### T7, LIPA, TSH, AMADOU, CMP #### [facility] [address] [place] [address] Dr. Krystle HeatonHematocrit (Bld) [Volume fraction]40.4 %Critically low42.0-54.0 The [facility] HospitalComment on above:Performed By: #### T7, LIPA, TSH, AMADOU, CMP #### [facility] [address] [place] [address] Dr. Krystle HeatonHemoglobin (Bld) [Mass/Vol]12.3 g/dLCritically low14.0-18.0The [facility] HospitalComment on above:Performed By: #### T7, LIPA, TSH, AMADOU, CMP #### [facility] [address] [place] [address] Dr. Krystle Garland #0.03 10e3/ulNormal0.00-0.03[facility] on above:Performed By: #### T7, LIPA, TSH, AMADOU, CMP #### [facility] [address] [place] [address] Dr. Krystle Garland %0.6 %Critically high0.0-0.5The [facility] on above:Performed By: #### T7, LIPA, TSH, AMADOU, CMP #### [facility] [address] [place] [address] Dr. Krystle Fernandez #1.5 103/ulNormal1.2-3.8[facility] on above:Performed By: #### T7, LIPA, TSH, AMADOU, CMP #### [facility] [address] [place] [address] Dr. Krystle Phoenixmphocytes/100 WBC (Bld)28.3 %Rmvzha52.5-60.0[facility] on above:Performed By: #### T7, LIPA, TSH, AMADOU, CMP #### [facility] [address] [place] [address] Dr. Krystle Brewer DIFF REQNONormalThe Protivin HospitalComment on above: Performed By: #### T7, LIPA, TSH, AMADOU, CMP #### [facility] [address] [place] [address] Dr[facility] (RBC) [Entitic mass]28.3 snRtqcyi02.9-34.0The Protivin HospitalComment on above:Performed By: #### T7, LIPA, TSH, AMADOU, CMP #### [facility] [address] [place] [address] Dr. [facility]atonBA[facility] (RBC) [Mass/Vol]30.4 g/mCYmkwdq63.9-35.2The Protivin HospitalComment on above:Performed By: #### T7, LIPA, TSH, AMADOU, CMP #### [facility] [address] [place] [address] Dr. Krystle Landry (RBC) [Entitic vol]93.1 oSKpsrqp62.0-94.0The [facility] HospitalComment on above:Performed By: #### T7, LIPA, TSH, AMADOU, CMP #### [facility] [address] [place] [address] Dr. Krystle Sanchez #0.7 103/ulNormal0.3-0.8The [facility] HospitalComment on above:Performed By: #### T7, LIPA, TSH, AMADOU, CMP #### [facility] [address] [place] [address] Dr. Krystle Jeanocytes/100 WBC (Bld)13.4 %Critically high1.7-12.0The Protivin HospitalComment on above:Performed By: #### T7, LIPA, TSH, AMADOU, CMP #### [facility] [address] [place] [address] Dr. Krystle Rainey #2.8 103/ulNormal1.4-6.5The Protivin HospitalComment on above:Performed By: #### T7, LIPA, TSH, AMADOU, CMP #### [facility] [address] [place] [address] Dr. Krystle Islasutrophils/100 WBC (Bld)54.4 %Brpbpp98.0-75.0[facility] on above:Performed By: #### T7, LIPA, TSH, AMADOU, CMP #### [facility] [address] [place] [address] Dr. Krystle HeatonPlatelet mean volume (Bld) [Entitic vol]11.7 fLNormal9.5-13.5The [facility] HospitalComment on above:Performed By: #### T7, LIPA, TSH, AMADOU, CMP #### [facility] [address] [place] [address] Dr. Krystle HeatonPLT192 103/apQdktmr011-172Jpg [facility] HospitalComment on above: Performed By: #### T7, LIPA, TSH, AMADOU, CMP #### [facility] [address] [place] [address] Dr. Krystle HeatnoRBC4.34 106/ulCritically low4.70-6.10[facility] on above:Performed By: #### T7, LIPA, TSH, AMADOU, CMP #### [facility] [address] [place] [address] Dr. Krystle HeatonWBC5.2 103/ulNormal4.0-11.0The [facility] HospitalComkresge eye institute on above: Performed By: #### T7, LIPA, TSH, AMADOU, CMP #### [facility] [address] [place] [address] Dr. Krystle HeatonFERRITINon [id number] [Mass/Vol]122.0 ng/mLNormal 17.9-464.0[facility] on above:Performed By: #### T7, LIPA, TSH, AMADOU, CMP #### [facility] [address] [place] [address] Dr. Krystle Stinson AUTO DIFFon [id number] #0.0 103/ulNormal0.0-0.1The [facility] HospitalComment on above:Performed By: #### T7, LIPA, TSH, AMADOU, CMP #### [facility] [address] [place] [address] Dr. Krystle HeatonBasophils/100 WBC (Bld)0.7 %Normal0.2-2.0[facility] Comment on above:Performed By: #### T7, LIPA, TSH, AMADOU, CMP #### [facility] [address] [place] [address] Dr. Krystle FlynnO #0.2 103/ulNormal0.0-0.7The [facility] HospitalComment on above: Performed By: #### T7, LIPA, TSH, AMADOU, CMP #### [facility] [address] [place] [address] Dr. Krystle Flynnosinophils/100 WBC (Bld)3.9 %Normal0.9-7.0[facility] Comment on above:Performed By: #### T7, LIPA, TSH, AMADOU, CMP #### [facility] [address] [place] [address] Dr. Krystle Flynnrythrocyte distribution width (RBC) [Ratio]13.0 %Lxskcz49.0-15.0 The [facility] HospitalComment on above:Performed By: #### T7, LIPA, TSH, AMADOU, CMP #### [facility] [address] [place] [address] Dr. Krystle HeatonHematocrit (Bld) [Volume fraction]39.0 %Critically low42.0-54.0 The [facility] HospitalComment on above:Performed By: #### T7, LIPA, TSH, AMADOU, CMP #### [facility] [address] [place] [address] Dr. Krystle HeatonHemoglobin (Bld) [Mass/Vol]12.4 g/dLCritically low14.0-18.0The [facility] HospitalComment on above:Performed By: #### T7, LIPA, TSH, AMADOU, CMP #### [facility] [address] [place] [address] Dr. Krystle Garland #0.01 10e3/ulNormal0.00-0.03The [facility] HospitalComment on above:Performed By: #### T7, LIPA, TSH, AMADOU, CMP #### [facility] [address] [place] [address] Dr. Krystle Garland %0.2 %Normal0.0-0.5The [facility] HospitalComment on above: Performed By: #### T7, LIPA, TSH, AMADOU, CMP #### [facility] [address] [place] [address] Dr. Krystle Fernandez #1.0 103/ulCritically low1.2-3.8[facility] Comment on above:Performed By: #### T7, LIPA, TSH, AMADOU, CMP #### [facility] [address] [place] [address] Dr. Krystle Gillhocytes/100 WBC (Bld)23.1 %Vcxiri96.5-60.0The [facility] HospitalComment on above:Performed By: #### T7, LIPA, TSH, AMADOU, CMP #### [facility] [address] [place] [address] Dr. Krystle CurzUAL DIFF REQNONormalThe [facility] HospitalComment on above: Performed By: #### T7, LIPA, TSH, AMADOU, CMP #### [facility] [address] [place] [address] Dr[facility] (RBC) [Entitic mass]31.2 mvYswjro57.9-34.0The Protiv[facility] HospitalComment on above:Performed By: #### T7, LIPA, TSH, AMADOU, CMP #### [facility] [address] [place] [address] Dr. Krystle Landry (RBC) [Mass/Vol]31.8 g/oWRhooua57.9-35.2The [facility] HospitalComment on above:Performed By: #### T7, LIPA, TSH, AMADOU, CMP #### [facility] [address] [place] [address] Dr. Krystle Degroot (RBC) [Entitic vol]98.2 fLCritically high80.0-94.0The [facility] HospitalComment on above:Performed By: #### T7, LIPA, TSH, AMADOU, CMP #### [facility] [address] [place] [address] Dr. Krystle Sanchez #0.5 103/ulNormal0.3-0.8The [facility] HospitalComment on above:Performed By: #### T7, LIPA, TSH, AMADOU, CMP #### [facility] [address] [place] [address] Dr. Krystle Jeanocytes/100 WBC (Bld)10.4 %Normal1.7-12.0[facility] Comment on above:Performed By: #### T7, LIPA, TSH, AMADOU, CMP #### [facility] [address] [place] [address] Dr. Krystle Rainey #2.7 103/ulNormal1.4-6.5The [facility] HospitalComment on above:Performed By: #### T7, LIPA, TSH, AMADOU, CMP #### [facility] [address] [place] [address] Dr. Krystle Islasutrophils/100 WBC (Bld)61.7 %Szorzv19.0-75.0The [facility] HospitalComment on above:Performed By: #### T7, LIPA, TSH, AMADOU, CMP #### [facility] [address] [place] [address] Dr. Krystle Moody mean volume (Bld) [Entitic vol]10.8 fLNormal9.5-13.5The [facility] HospitalComment on above:Performed By: #### T7, LIPA, TSH, AMADOU, CMP #### [facility] [address] [place] [address] Dr. Krystle HeatonPLT197 103/tuVyyhtd113-070Fyo [facility] HospitalComment on above: Performed By: #### T7, LIPA, TSH, AMADOU, CMP #### [facility] [address] [place] [address] Dr. Krystle HeatonRBC3.97 106/ulCritically low4.70-6.10The [facility] HospitalComment on above:Performed By: #### T7, LIPA, TSH, AMADOU, CMP #### [facility] [address] [place] [address] Dr. Krystle HeatonWBC4.3 103/ulNormal4.0-11.0The [facility] HospitalComment on above: Performed By: #### T7, LIPA, TSH, AMADOU, CMP #### [facility] [address] [place] [address] Dr. Krystle HeatonFERRITINon [id number] [Mass/Vol]107.0 ng/mLNormal 17.9-464.0The [facility] HospitalComment on above:Performed By: #### T7, LIPA, TSH, AMADOU, CMP #### [facility] [address] [place] [address] Dr. Krystle Stinson AUTO DIFFon [id number] #0.0 103/ulNormal0.0-0.1The [facility] HospitalComment on above:Performed By: #### T7, LIPA, TSH, AMADOU, CMP #### [facility] [address] [place] [address] Dr. Krystle HeatonBasophils/100 WBC (Bld)0.5 %Normal0.2-2.0[facility] Comment on above:Performed By: #### T7, LIPA, TSH, AMADOU, CMP #### [facility] [address] [place] [address] Dr. Krystle FlynnO #0.1 103/ulNormal0.0-0.7The [facility] HospitalComment on above: Performed By: #### T7, LIPA, TSH, AMADOU, CMP #### [facility] [address] [place] [address] Dr. Krystle Flynnosinophils/100 WBC (Bld)3.5 %Normal0.9-7.0[facility] Comment on above:Performed By: #### T7, LIPA, TSH, AMADOU, CMP #### [facility] [address] [place] [address] Dr. Krystle Flynnrythrocyte distribution width (RBC) [Ratio]12.6 %Sdfcpw96.0-15.0 [facility] on above:Performed By: #### T7, LIPA, TSH, AMADOU, CMP #### [facility] [address] [place] [address] Dr. Krystle HeatonHematocrit (Bld) [Volume fraction]39.8 %Critically low42.0-54.0 The [facility] HospitalComment on above:Performed By: #### T7, LIPA, TSH, AMADOU, CMP #### [facility] [address] [place] [address] Dr. Krystle HeatonHemoglobin (Bld) [Mass/Vol]12.5 g/dLCritically low14.0-18.0The [facility] HospitalComment on above:Performed By: #### T7, LIPA, TSH, AMADOU, CMP #### [facility] [address] [place] [address] Dr. Krystle Garland #0.00 10e3/ulNormal0.00-0.03The [facility] on above:Performed By: #### T7, LIPA, TSH, AMADOU, CMP #### [facility] [address] [place] [address] Dr. Krystle Garland %0.0 %Normal0.0-0.5The [facility] HospitalComkresge eye institute on above: Performed By: #### T7, LIPA, TSH, AMADOU, CMP #### [facility] [address] [place] [address] Dr. Krystle Fernandez #1.2 103/ulNormal1.2-3.8[facility] on above:Performed By: #### T7, LIPA, TSH, AMADOU, CMP #### [facility] [address] [place] [address] Dr. Krystle Phoenixmphocytes/100 WBC (Bld)32.7 %Aunuxr49.5-60.0The [facility] HospitalComment on above:Performed By: #### T7, LIPA, TSH, AMADOU, CMP #### [facility] [address] [place] [address] Dr. Krystle Brewer DIFF REQNONormalThe [facility] HospitalComment on above: Performed By: #### T7, LIPA, TSH, AMADOU, CMP #### [facility] [address] [place] [address] Dr[facility] (RBC) [Entitic mass]32.1 jfRztgqd93.9-34.0The [facility] HospitalComment on above:Performed By: #### T7, LIPA, TSH, AMADOU, CMP #### [facility] [address] [place] [address] Dr[facility]atonBA[facility] (RBC) [Mass/Vol]31.4 g/qKImopmu50.9-35.2The [facility] HospitalComment on above:Performed By: #### T7, LIPA, TSH, AMADOU, CMP #### [facility] [address] [place] [address] Dr. Krystle Landry (RBC) [Entitic vol]102.3 fLCritically high80.0-94.0[facility] on above:Performed By: #### T7, LIPA, TSH, AMADOU, CMP #### [facility] [address] [place] [address] Dr. Krystle Sanchez #0.4 103/ulNormal0.3-0.8[facility] on above:Performed By: #### T7, LIPA, TSH, AMADOU, CMP #### [facility] [address] [place] [address] Dr. Krystle Jeanocytes/100 WBC (Bld)10.5 %Normal1.7-12.0[facility] Comment on above:Performed By: #### T7, LIPA, TSH, AMADOU, CMP #### [facility] [address] [place] [address] Dr. Krystle Rainey #2.0 103/ulNormal1.4-6.5[facility] on above:Performed By: #### T7, LIPA, TSH, AMADOU, CMP #### [facility] [address] [place] [address] Dr. Krystle Islasutrophils/100 WBC (Bld)52.8 %Tfstcp84.0-75.0The [facility] on above:Performed By: #### T7, LIPA, TSH, AMADOU, CMP #### [facility] [address] [place] [address] Dr. Krystle HeatonPlatelet mean volume (Bld) [Entitic vol]10.7 fLNormal9.5-13.5The [facility] on above:Performed By: #### T7, LIPA, TSH, AMADOU, CMP #### [facility] [address] [place] [address] Dr. Krystle HeatonPLT227 103/pgLirxdf733-611Jys [facility] on above: Performed By: #### T7, LIPA, TSH, AMADOU, CMP #### [facility] [address] [place] [address] Dr. Krystle HeatonRBC3.89 106/ulCritically low4.70-6.10The [facility] on above:Performed By: #### T7, LIPA, TSH, AMADOU, CMP #### [facility] [address] [place] [address] Dr. Krystle HeatonWBC3.7 103/ulCritically low4.0-11.0[facility] on above:Performed By: #### T7, LIPA, TSH, AMADOU, CMP #### [facility] [address] [place] [address] Dr. Krystle HeatonFERRITINon 27-59-9588Grgbyhyg [Mass/Vol]169.0 ng/mLNormal 17.9-464.0The [facility] on above:Performed By: #### FERR #### [facility] [address] [place] [address] Dr. Krystle HeatonMETHYLMALONIC ACID (MMA)on [id number]:CommentNormalThe [facility] HospitalComment on above:Result Comment: This test was developed and its performance characteristics determined by [facility]. It has not been cleared or approved by the Food and Drug Administration.Performed By: #### T7, LIPA, TSH, AMADOU, CMP #### [facility] [address] [place] [address] Dr. Krystle HeatonMethylmalonic Acid, Wfpjp600 nmol/LNormal0-378The [facility] HospitalComment on above:Performed By: #### T7, LIPA, TSH, AMADOU, CMP #### [facility] [address] [place] [address] Dr. Krystle HeatonHOMOCYSTEINEon 81-14-4972Pvfisdiw(e)ine, Pulnyu98.5 umol/L Critically high0.0-14.5The [facility] HospitalComment on above:Performed By: #### T7, LIPA, TSH, AMADOU, CMP #### [facility] [address] [place] [address] Dr. Krystle HeatonCBC AUTO DIFFon [id number] #0.0 103/ulNormal0.0-0.1The [facility] HospitalComment on above:Performed By: #### T7, LIPA, TSH, AMADOU, CMP #### [facility] [address] [place] [address] Dr. Krystle HeatonBasophils/100 WBC (Bld)0.5 %Normal0.2-2.0[facility] Comment on above:Performed By: #### T7, LIPA, TSH, AMADOU, CMP #### [facility] Laboratory [address] [place] [address] Dr. Krystle FlynnO #0.1 103/ulNormal0.0-0.7The [facility] Cross HospitalComment on above: Performed By: #### T7, LIPA, TSH, AMADOU, CMP #### [facility] [address] [place] [address] Dr. Krystle Flynnosinophils/100 WBC (Bld)1.8 %Normal0.9-7.0[facility] Comment on above:Performed By: #### T7, LIPA, TSH, AMADOU, CMP #### [facility] [address] [place] [address] Dr. Krystle Flynnrythrocyte distribution width (RBC) [Ratio]12.7 %Ldhpez52.0-15.0 [facility] on above:Performed By: #### T7, LIPA, TSH, AMADOU, CMP #### [facility] [address] [place] [address] Dr. Krystle HeatonHematocrit (Bld) [Volume fraction]39.4 %Critically low42.0-54.0 [facility] on above:Performed By: #### T7, LIPA, TSH, AMADOU, CMP #### [facility] [address] [place] [address] Dr. Krystle HeatonHemoglobin (Bld) [Mass/Vol]12.9 g/dLCritically low14.0-18.0[facility] on above:Performed By: #### T7, LIPA, TSH, AMADOU, CMP #### [facility] [address] [place] [address] Dr. Krystle Garland #0.02 10e3/ulNormal0.00-0.03The [facility] on above:Performed By: #### T7, LIPA, TSH, AMADOU, CMP #### [facility] [address] [place] [address] Dr. Krystle Garland %0.4 %Normal0.0-0.5[facility] on above: Performed By: #### T7, LIPA, TSH, AMADOU, CMP #### [facility] [address] [place] [address] Dr. Krystle Fernandez #1.4 103/ulNormal1.2-3.8[facility] on above:Performed By: #### T7, LIPA, TSH, AMADOU, CMP #### [facility] [address] [place] [address] Dr. Krystle Gillhocytes/100 WBC (Bld)24.9 %Aktocc94.5-60.0The [facility] HospitalComment on above:Performed By: #### T7, LIPA, TSH, AMADOU, CMP #### [facility] [address] [place] [address] Dr. Krystle Brewer DIFF REQNONormalThe [facility] Cross HospitalComment on above: Performed By: #### T7, LIPA, TSH, AMADOU, CMP #### [facility] [address] [place] [address] Dr[facility] ([facility]BC) [Entitic mass]34.0 zeWzasfg37.9-34.0The [facility] HospitalComment on above:Performed By: #### T7, LIPA, TSH, AMADOU, CMP #### [facility] [address] [place] [address] Dr. Krystle Landry (RBC) [Mass/Vol]32.7 g/bHDgwtnj14.9-35.2The [facility] HospitalComment on above:Performed By: #### T7, LIPA, TSH, AMADOU, CMP #### [facility] [address] [place] [address] Dr. Krystle Landry (RBC) [Entitic vol]104.0 fLCritically high80.0-94.0The [facility] HospitalComment on above:Performed By: #### T7, LIPA, TSH, AMADOU, CMP #### [facility] [address] [place] [address] Dr. Krystle Sanchez #0.7 103/ulNormal0.3-0.8The [facility] HospitalComment on above:Performed By: #### T7, LIPA, TSH, AMADOU, CMP #### [facility] [address] [place] [address] Dr. Krystle Jeanocytes/100 WBC (Bld)11.8 %Normal1.7-12.0[facility] Comment on above:Performed By: #### T7, LIPA, TSH, AMADOU, CMP #### [facility] [address] [place] [address] Dr. Krystle Rainey #3.3 103/ulNormal1.4-6.5[facility] on above:Performed By: #### T7, LIPA, TSH, AMADOU, CMP #### [facility] [address] [place] [address] Dr. Krystle Islasutrophils/100 WBC (Bld)60.6 %Anabcv01.0-75.0[facility] on above:Performed By: #### T7, LIPA, TSH, AMADOU, CMP #### [facility] [address] [place] [address] Dr. Krystle HeatonPlatelet mean volume (Bld) [Entitic vol]10.2 fLNormal9.5-13.5The [facility] on above:Performed By: #### T7, LIPA, TSH, AMADOU, CMP #### [facility] [address] [place] [address] Dr. Krystle HeatonPLT196 103/gzSweias978-867Bot [facility] on above: Performed By: #### T7, LIPA, TSH, AMADOU, CMP #### [facility] [address] [place] [address] Dr. Krystle HeatonRBC3.79 106/ulCritically low4.70-6.10[facility] on above:Performed By: #### T7, LIPA, TSH, AMADOU, CMP #### [facility] [address] [place] [address] Dr. Krystle HeatonWBC5.5 103/ulNormal4.0-11.0[facility] on above: Performed By: #### T7, LIPA, TSH, AMADOU, CMP #### [facility] [address] [place] [address] Dr. Krystle HeatonFERRITINon 35-36-2126Pnsithzr [Mass/Vol]302.0 ng/mLNormal 17.9-464.0[facility] on above:Performed By: #### CBC #### [facility] [address] [place] [address] Billy DeanenPROF 14(COMP METB)on 50-24-4565Lhtqgjf [Mass/Vol]3.5 g/dLNormal 3.5-5.0[facility] HospitalComment on above:Performed By: #### CBC #### [facility] [address] [place], [place] [id number] Billy KarenAlbumin/Globulin [Mass ratio]1.0 {ratio}NormalHolzer Hospital Comment on above:Performed By: #### CBC #### [facility] [address] [place] [address] Billy KarenALP [Catalytic activity/Vol]71 U/HPsznfw02-844ZswHolzer Hospital Comment on above:Performed By: #### CBC #### [facility] [address] [place] [address] Billy KarenALT [Catalytic activity/Vol]40 U/XIzzdcl31-09TfcHolzer Hospital Comment on above:Performed By: #### CBC #### [facility] [address] [place] [address] Billy KarenAnion gap [Moles/Vol]17.5 mmol/LNormalHolzer HospitalComment on above:Performed By: #### CBC #### [facility] [address] [place] [address] Billy KarenAST [Catalytic activity/Vol]43 U/NUiboog22-97WywHolzer Hospital Comment on above:Performed By: #### CBC #### [facility] [address] [place] [address] Billy KarenBilirubin [Mass/Vol]0.3 mg/dLNormal0.2-1.3TFirelands [facility] Comment on above:Performed By: #### CBC #### [facility] [address] [place], [place] [address] Billy KarenCalcium [Mass/Vol]8.8 mg/dLNormal8.4-10.2[facility] Comment on above:Performed By: #### CBC #### [facility] [address] [place] [address] Billy KarenChloride [Moles/Vol]101 mmol/RNmoxre16-216EmrHolzer Hospital Comment on above:Performed By: #### CBC #### [facility] [address] [address] Billy KarenCO2 [Moles/Vol]26.6 mmol/BDlqpwu78.0-30.0[facility] Comment on above:Performed By: #### CBC #### [facility] [address] [address] Billy KarenCreatinine [Mass/Vol]0.88 mg/dLNormal0.66-1.25The [facility] Comment on above:Performed By: #### CBC #### [facility] [address] [place] [address] Billy KarenEGFR-AF WALLISIAN>60Normal>=60The [facility] HospitalComment on above: Performed By: #### CBC #### [facility] [address] [place] [address] Billy KarenEGFR-NON AF WALLISIAN>60Normal>=60The [facility] HospitalComment on above:Performed By: #### CBC #### [facility] [address] [place] [address] Billy KarenGlobulin (S) [Mass/Vol]3.6 g/dLNormalThe [facility] Cross HospitalComment on above:Performed By: #### CBC #### [facility] [address] [place] [address] Billy KarenGlucose [Mass/Vol]101 mg/sXOfwzut92-698Nac [facility] HospitalComment on above:Performed By: #### CBC #### [facility] [address] [place] [address] Billy KarenPotassium [Moles/Vol]4.1 mmol/LNormal3.4-5.0[facility] Comment on above:Performed By: #### CBC #### [facility] [address] [place] [address] Billy KarenProtein [Mass/Vol]7.1 g/dLNormal6.1-8.2The [facility] HospitalComment on above:Performed By: #### CBC #### [facility] [address] [place], [place] [address] Billy KarenSodium [Moles/Vol]141 mmol/GQgcuuj832-216Ikr [facility] Comment on above:Performed By: #### CBC #### [facility] [address] [place], [place] [address] Billy KarenUrea nitrogen [Mass/Vol]11.0 mg/dLNormal9.0-20.0The [facility] HospitalComment on above:Performed By: #### CBC #### [facility] [address] [place], [place] [address] Billy KarenUrea nitrogen/Creatinine [Mass ratio]12.5 mg/mgNormalThe [facility] HospitalComment on above:Performed By: #### CBC #### [facility] [address] [place], [place] [address] Billy KarenIN BIOPSY LIVER PERCUTANEOUS NEEDLEon [id number] BIOPSY LIVER PERCUTANEOUS NEEDLEMRN: [id number] Patient Name: CHUY CHAPIN STUDY: IN BIOPSY LIVER PERCUTANEOUS NEEDLE; ; 05/08/2021 11:46 am INDICATION: None. COMPARISON: None. ACCESSION NUMBER(S): [id number] ORDERING CLINICIAN: ENOCH HERRMANN TECHNIQUE: CONSENT: The [...] and cap. Additionally, the performing physician and nursing home assistant used maximum barrier technique to include [...] were made using an 18 gauge spring-loaded SocStock core biopsy needle. Good core samples were [...] detailed above Electronically signed by: URI BACON MDEncompass Health Rehabilitation Hospital of YorkOrder Reconciliationon [id number] ReconciliationPage 1 Discharge Reconciliation Document Reconciliation Type: Discharge [...] tablet 1 tab(s) orally 2 times a dayWar[facility] Surgical Pathology Departmenton [id number] Surgical Pathology DepartmentName CHUY CHAPIN Pathologist: SUSAN BLACK M.D., PhD. Date of Procedure: 05/08/2021 Date Received: 05/08/2021 Date Reported 05/11/2021 Submitting Physician: ENOCH HERRMANN MD Location: [facility] Copy To/Referring/Attending: URI BACON MD Other External [...] [facility] Department of Pathology [id number] [place] [id number]. Elizabeth Hospital ([place])Comment on above:Performed By: #### [facility] #### [facility] Surgical Pathology Department [address] [place] [address]NED AUTO DIFFon [id number] #0.0 103/ulNormal0.0-0.1The [facility] HospitalComment on above:Performed By: #### FERR #### [facility] [address] [place] [address] Dr. Krystle HeatonBasophils/100 WBC (Bld)0.5 %Normal0.2-2.0[facility] Comment on above:Performed By: #### FERR #### [facility] [address] [place] [address] Dr. Krystle Joiner #0.1 103/ulNormal0.0-0.7The [facility] HospitalComment on above: Performed By: #### FERR #### [facility] [address] [place] [address] Dr. Krystle Flynnosinophils/100 WBC (Bld)2.5 %Normal0.9-7.0[facility] Comment on above:Performed By: #### FERR #### [facility] [address] [place] [address] Dr. Krystle Flynnrythrocyte distribution width (RBC) [Ratio]12.5 %Tlzmvz33.0-15.0 [facility] HospitalComment on above:Performed By: #### FERR #### [facility] [address] [place] [address] Dr. Krystle HeatonHematocrit (Bld) [Volume fraction]34.3 %Critically low42.0-54.0 [facility] HospitalComment on above:Performed By: #### FERR #### [facility] [address] [address] [address] Krystle HeatonHemoglobin (Bld) [Mass/Vol]11.2 g/dLCritically low14.0-18.0The [facility] HospitalComment on above:Performed By: #### FERR #### [facility] [address] [place] [address] Dr. Krystle Garland #0.01 10e3/ulNormal0.00-0.03The [facility] HospitalComment on above:Performed By: #### FERR #### [facility] [address] [place] [address] Dr. Krystle Garland %0.3 %Normal0.0-0.5The [facility] HospitalComment on above: Performed By: #### FERR #### [facility] [address] [place] [address] Dr. Krystle Fernandez #1.3 103/ulNormal1.2-3.8The [facility] HospitalComment on above:Performed By: #### FERR #### [facility] [address] [place] [address] Dr. Krystle Gillhocytes/100 WBC (Bld)33.3 %Vpaxpf40.5-60.0The [facility] HospitalComment on above:Performed By: #### FERR #### [facility] [address] [place] [address] Dr. Krystle CruzUAL DIFF REQNONormalThe [facility] Cross HospitalComment on above: Performed By: #### FERR #### [facility] [address] [place] [address] Dr. Krystle Landry (RBC) [Entitic mass]35.6 pgCritically high25.9-34.0The [facility] HospitalComment on above:Performed By: #### FERR #### [facility] [address] [place] [address] Dr. Krystle Landry (RBC) [Mass/Vol]32.7 g/pGHxejgd62.9-35.2The [facility] HospitalComment on above:Performed By: #### FERR #### [facility] [address] [place] [address] Dr. Krystle Degroot (RBC) [Entitic vol]108.9 fLCritically high80.0-94.0The [facility] HospitalComment on above:Performed By: #### FERR #### [facility] [address] [place] [address] Dr. Krystle Sanchez #0.4 103/ulNormal0.3-0.8The [facility] HospitalComment on above:Performed By: #### FERR #### [facility] [address] [place] [address] Dr. Krystle Jeanocytes/100 WBC (Bld)10.0 %Normal1.7-12.0[facility] Comment on above:Performed By: #### FERR #### [facility] [address] [place] [address] Dr. Krystle Rainey #2.1 103/ulNormal1.4-6.5The [facility] HospitalComment on above:Performed By: #### FERR #### [facility] [address] [place] [address] Dr. Krystle Islasutrophils/100 WBC (Bld)53.4 %Lkvghc89.0-75.0The [facility] HospitalComment on above:Performed By: #### FERR #### [facility] [address] [place] [address] Dr. Krystle Francolet mean volume (Bld) [Entitic vol]10.7 fLNormal9.5-13.5The [facility] HospitalComment on above:Performed By: #### FERR #### [facility] [address] [place] [address] Dr. Krystle HeatonPLT174 103/saSnahlu388-915Cds [facility] HospitalComment on above: Performed By: #### FERR #### [facility] [address] [place] [address] Dr. Krystle HeatonRBC3.15 106/ulCritically low4.70-6.10The [facility] HospitalComment on above:Result Comment: SLIDE REVIEWED. 2+ MACROCYTOSIS SEENPerformed By: #### FERR #### [facility] [address] [place] [address] Dr. Krystle HeatonWBC4.0 103/ulNormal4.0-11.0[facility] on above: Performed By: #### FERR #### [facility] [address] [place] [address] Dr. Krystle HeatonFERRITINon 81-69-4656Gkvoafvc [Mass/Vol]417.0 ng/mLNormal 17.9-464.0[facility] on above:Performed By: #### T7, LIPA, TSH, AMADOU, CMP #### [facility] [address] [place] [address] Dr. Krystle Talbot (TUMOR MARKER)on 03-11-1067GAD, Serum, Tumor Marker5.2 ng/mL Normal0.0-8.3[facility] on above:Result Comment: [employer] Electrochemiluminescence Immunoassay (ECLIA) . Values obtained with different assay methods or kits cannot be used interchangeably. Results cannot be interpreted as absolute evidence of the presence or absence of malignant disease. . This test is not interpretable in females.Performed By: #### T7, LIPA, TSH, AMADOU, CMP #### [facility] [address] [place] [address] Dr. Krystle HeatonWcqctFAOYQ-7-YOXWKLNFWBMph 94-95-2408Dzvyp-1-Antitrypsin, Dyddu258 mg/lKSvcpqi184-306Bvd [facility] on above:Performed By: #### HBSANS #### [facility] [address] [place] [address] Billy KarenANA by IFAon 82-73-4595Oprqdvvpypj Antibodies, IFANegativeNoalThe [facility] on above:Result Comment: Negative <1:80 Borderline 1:80 Positive >1:80Performed By: #### ANAIFA #### [facility] [address] [place] [address] Billy KarenCERULOPLASMINon 89-07-3969Zhmkulfpxibcj78.8 mg/bLNkwxmo08.0-31.0The [facility] HospitalComment on above:Performed By: #### CBC #### [facility] [address] [place] [address] Billy KarenHEP A AB TOTALon 67-57-0767Brk A Ab, TotalNegativeNormalNegativeThe [facility] HospitalComment on above:Performed By: #### HBSANS #### [facility] [address] [place] [address] Billy KarenHEP B COREon 55-31-1575Pzf B Core Ab, TotNegativeNormalNegativeThe [facility] HospitalComment on above:Performed By: #### T7, LIPA, TSH, AMADOU, CMP #### [facility] [address] [place] [address] Dr. Krystle HeatonHEGilma B SURFACE ANTIGEN SCREENon [id number] ScreenNegative NormalNegativeThe [facility] HospitalComment on above:Performed By: #### HBSANS #### [facility] [address] [place] [address] Billy KarenHEPATITIS B SURFACE ANTIBODY, QUANTon 11-91-1202Rqusjhuki B Surf AB Quant<3.1Critically lowImmunity>9.9The [facility] HospitalComment on above:Result Comment: Status of Immunity Anti-HBs Level Inconsistent with Immunity 0.0 - 9.9 Consistent with Immunity >9.9Performed By: #### HBSANS #### [facility] [address] [place] [address] Billy KarenHEPATITIS C ANTIBODYon [id number] C Virus Ab<0.4Grqjvs1.0-0.9The [facility] HospitalComment on above:Result Comment: Negative: < 0.8 Indeterminate: 0.8 - 0.9 Positive: > 0.9 . The CDC recommends that a positive HCV antibody result be followed up with a HCV Nucleic Acid Amplification test (078710).Performed By: #### T7, LIPA, TSH, AMADOU, CMP #### [facility] [address] [id number] [address] Krystle HeatonMITICHONDRIAL (M2) ANTIBODYon 07-87-2006Gehqltdgnyoxz (M2) Antibody<20.7Zdhmlm5.0-20.0[facility] HospitalComment on above:Result Comment: Negative 0.0 - 20.0 Equivocal 20.1 - 24.9 Positive >24.9 . Mitochondrial (M2) Antibodies are found in 90-96% of patients with primary biliary cirrhosis.Performed By: #### FERR #### [facility] [address] [place] [address] Dr. Krystle HeatonCBC AUTO DIFFon [id number] #0.1 103/ulNormal0.0-0.1The [facility] HospitalComment on above:Performed By: #### CBC #### [facility] [address] [place] [address] Billy KarenBasophils/100 WBC (Bld)1.5 %Normal0.2-2.0[facility] Comment on above:Performed By: #### CBC #### [facility] [address] [place] [address] Billy KarenEO #0.1 103/ulNormal0.0-0.7The [facility] HospitalComment on above: Performed By: #### CBC #### [facility] [address] [place] [address] Billy KarenEosinophils/100 WBC (Bld)2.1 %Normal0.9-7.0The [facility] Comment on above:Performed By: #### CBC #### [facility] [address] [place] [address] Billy KarenErythrocyte distribution width (RBC) [Ratio]12.7 %Cxmlpx18.0-15.0The [facility] HospitalComment on above:Performed By: #### CBC #### [facility] [address] [place] [address] Billy KarenHematocrit (Bld) [Volume fraction]34.6 %Critically low42.0-54.0The [facility] HospitalComment on above:Performed By: #### CBC #### [facility] [address] [address] Billy KarenHemoglobin (Bld) [Mass/Vol]11.2 g/dLCritically low14.0-18.0[facility] on above:Performed By: #### CBC #### [facility] [address] [place] [address] Billy KarenIG #0.01 10e3/ulNormal0.00-0.03The [facility] HospitalComment on above:Performed By: #### CBC #### [facility] [address] [place] [address] Billy KarenIG %0.3 %Normal0.0-0.5[facility] on above: Performed By: #### CBC #### [facility] [address] [place] [address] Billy KarenLYMPH #1.0 103/ulCritically low1.2-3.8The [facility] on above:Performed By: #### CBC #### [facility] [address] [place] [address] Billy KarenLymphocytes/100 WBC (Bld)30.4 %Orchwj73.5-60.0[facility] Comment on above:Performed By: #### CBC #### [facility] [address] [place] [address] Billy KarenMANUAL DIFF REQNONormalThe [facility] HospitalComment on above: Performed By: #### CBC #### [facility] [address] [place] [address] Billy KarenMCH (RBC) [Entitic mass]35.8 pgCritically high25.9-34.0The [facility] HospitalComkresge eye institute on above:Performed By: #### CBC #### [facility] [address] [place] [address] Billy KarenMCHC (RBC) [Mass/Vol]32.4 g/cBOqslen12.9-35.2The [facility] Comment on above:Performed By: #### CBC #### [facility] [address] [id number] Billy KarenMCV (RBC) [Entitic vol]110.5 fLCritically high80.0-94.0The Protivin HospitalComment on above:Performed By: #### CBC #### [facility] [address] [address] Billy KarenMONO #0.4 103/ulNormal0.3-0.8The [facility] HospitalComment on above: Performed By: #### CBC #### [facility] [address] [id number] Billy KarenMonocytes/100 WBC (Bld)11.3 %Normal1.7-12.0The [facility] Comment on above:Performed By: #### CBC #### [facility] [address] [place] [address] Billy KarenNEUT #1.8 103/ulNormal1.4-6.5The [facility] HospitalComment on above: Performed By: #### CBC #### [facility] [address] [place], [place] [id number] Billy KarenNeutrophils/100 WBC (Bld)54.4 %Ygefqg33.0-75.0The [facility] Comment on above:Performed By: #### CBC #### [facility] [address] [place] [address] Billy KarenPlatelet mean volume (Bld) [Entitic vol]11.3 fLNormal9.5-13.5The [facility] HospitalComment on above:Performed By: #### CBC #### [facility] [address] [place] [address] Billy SrwrsTOQ916 103/ulCritically big970-335Scz [facility] HospitalComment on above:Performed By: #### CBC #### [facility] [address] [place], [place] [address] Billy KarenRBC3.13 106/ulCritically low4.70-6.10The [facility] HospitalComment on above:Performed By: #### CBC #### [facility] [address] [address] Billy KarenWBC3.4 103/ulCritically low4.0-11.0The [facility] HospitalComment on above:Performed By: #### CBC #### [facility] [address] [place] [address] Billy KarenLIVER PROFILEon 40-50-5097Obmbqhj/Globulin [Mass ratio]1.0 {ratio} NormalThe [facility] Cross HospitalComment on above:Performed By: #### HBSANS #### [facility] [address] [place] [address] Billy KarenALP [Catalytic activity/Vol]67 U/KJnjtjq71-194AuvHolzer Hospital Comment on above:Performed By: #### HBSANS #### [facility] [address] [place] [address] Billy KarenALT [Catalytic activity/Vol]52 U/LCvdbhb90-10Czl [facility] Comment on above:Performed By: #### HBSANS #### [facility] [address] [place] [address] Billy KarenAST [Catalytic activity/Vol]51 U/NBkfwbu54-81Zlk [facility] Comment on above:Performed By: #### HBSANS #### [facility] [address] [place] [address] Billy KarenBILI, CONJUGATED0.2 mg/dLNormal0.0-0.3TFirelands Regional Medical Center South CampusComment on above:Performed By: #### HBSANS #### [facility] [address] [place] [address] Billy KarenBilirubin [Mass/Vol]0.5 mg/dLNormal0.2-1.3TFirelands Regional Medical [facility] Campus Comment on above:Performed By: #### HBSANS #### [facility] [address] [place] [address] Billy KarenGlobulin (S) [Mass/Vol]3.4 g/dLNormalThe Green Cross HospitalComment on above:Performed By: #### HBSANS #### [facility] [address] [place] [address] Billy KarenProtein [Mass/Vol]6.9 g/dLNormal6.1-8.2The [facility] HospitalComment on above:Performed By: #### HBSANS #### [facility] [address] [place] [address] Billy KarenPROTIMEon [id number] Coag (PPP) [Relative time]0.95 {INR}Normal The [facility] HospitalComment on above:Performed By: #### CBC #### [facility] [address] [place] [address] Billy KarenINR GUIDELINESSEE BELOWNoalThTrinity Health System Twin City Medical CenterComment on above: Result Comment: DESIRED INR: 2.0 - 3.0 CONDITIONS NOT LISTED BELOW 2.5 - 3.5 FOR PROSTHETIC HEART VALVE REPLACEMENT 2.5 - 3.5 RECURRENT THROMBOSISPerformed By: #### CBC #### [facility] [address] [place] [address] Billy KarenPT Coag (PPP) [Time]10.4 sNormal9.0-11.6The [facility] HospitalComment on above:Performed By: #### CBC #### [facility] [address] [place] [address] Billy KarenRENAL FUNCTION PANELon [id number] [Mass/Vol]3.5 g/dLNormal 3.5-5.0The [facility] HospitalComment on above:Performed By: #### HBSANS #### [facility] [address] [place] [address] Billy KarenCalcium [Mass/Vol]8.7 mg/dLNormal8.4-10.2[facility] Comment on above:Performed By: #### HBSANS #### [facility] [address] [place] [address] Billy KarenChloride [Moles/Vol]104 mmol/XWjfuua82-515Jsv [facility] Comment on above:Performed By: #### HBSANS #### [facility] [address] [place] [address] Billy KarenCO2 [Moles/Vol]25.7 mmol/PGhvemz26.0-30.0[facility] Comment on above:Performed By: #### HBSANS #### [facility] [address] [place] [address] Billy KarenCreatinine [Mass/Vol]1.01 mg/dLNormal0.66-1.25ThTrinity Health [facility] Comment on above:Performed By: #### HBSANS #### [facility] [address] [place] [address] Billy KarenEGFR-AF WALLISIAN>60Normal>=60Hol[facility] HospitalComment on above: Performed By: #### HBSANS #### [facility] [address] [place] [address] Billy KarenEGFR-NON AF WALLISIAN>60Normal>=60Hol[facility] HospitalComment on above:Performed By: #### HBSANS #### [facility] [address] [place] [address] Billy KarenGlucose [Mass/Vol]103 mg/kPEpnzxq35-143CzyHolzer HospitalComment on above:Performed By: #### HBSANS #### [facility] [address] [place] [address] Billy KarenPhosphate [Mass/Vol]3.6 mg/dLNormal2.5-4.5ThTrinity Health System [facility] Comment on above:Performed By: #### HBSANS #### [facility] [address] [place] [address] Billy KarenPotassium [Moles/Vol]4.2 mmol/LNormal3.4-5.0[facility] Comment on above:Performed By: #### HBSANS #### [facility] [address] [place] [address] Billy KarenSodium [Moles/Vol]138 mmol/XJdkzls372-979LoxHolzer Hospital Comment on above:Performed By: #### HBSANS #### [facility] [address] [place] [address] Billy KarenUrea nitrogen [Mass/Vol]7.0 mg/dLCritically low9.0-20.0The [facility] HospitalComment on above:Performed By: #### HBSANS #### [facility] [address] [place] [address] Billy Stanotn AUTO DIFFon [id number] #0.0 103/ulNormal0.0-0.1The [facility] Cross HospitalComment on above:Performed By: #### T7, LIPA, TSH, AMADOU, CMP #### [facility] [address] [place] [address] Dr. Krystle HeatonBasophils/100 WBC (Bld)0.9 %Normal0.2-2.0[facility] Comment on above:Performed By: #### T7, LIPA, TSH, AMADOU, CMP #### [facility] [address] [place] [address] Dr. Krystle Joiner #0.1 103/ulNormal0.0-0.7The [facility] HospitalComment on above: Performed By: #### T7, LIPA, TSH, AMADOU, CMP #### [facility] [address] [place] [address] Dr. Krystle Flynnosinophils/100 WBC (Bld)2.6 %Normal0.9-7.0[facility] Comment on above:Performed By: #### T7, LIPA, TSH, AMADOU, CMP #### [facility] [address] [place] [address] Dr. Krystle Flynnrythrocyte distribution width (RBC) [Ratio]12.4 %Ohbsyz34.0-15.0 The [facility] HospitalComment on above:Performed By: #### T7, LIPA, TSH, AMAODU, CMP #### [facility] [address] [place] [address] Dr. Krystle Haqatocrit (Bld) [Volume fraction]36.8 %Critically low42.0-54.0 The [facility] Cross HospitalComment on above:Performed By: #### T7, LIPA, TSH, AMADOU, CMP #### [facility] [address] [place] [address] Dr. Yilan ChangHemoglobin (Bld) [Mass/Vol]12.0 g/dLCritically low14.0-18.0The [facility] HospitalComment on above:Performed By: #### T7, LIPA, TSH, AMADOU, CMP #### [facility] [address] [place] [address] Dr. Krystle Garland #0.02 10e3/ulNormal0.00-0.03The [facility] HospitalComment on above:Performed By: #### T7, LIPA, TSH, AMADOU, CMP #### [facility] [address] [place] [address] Dr. Krystle Garland %0.4 %Normal0.0-0.5The [facility] HospitalComment on above: Performed By: #### T7, LIPA, TSH, AMADOU, CMP #### [facility] [address] [place] [address] Dr. Krystle Fernandez #1.2 103/ulNormal1.2-3.8The [facility] HospitalComment on above:Performed By: #### T7, LIPA, TSH, AMADOU, CMP #### [facility] [address] [place] [address] Dr. Kryslte Gillhocytes/100 WBC (Bld)26.0 %Jxqcet45.5-60.0The [facility] HospitalComment on above:Performed By: #### T7, LIPA, TSH, AMADOU, CMP #### [facility] [address] [place] [address] Dr. Krystle CruzUAL DIFF REQNONormalThe [facility] Cross HospitalComment on above: Performed By: #### T7, LIPA, TSH, AMADOU, CMP #### [facility] [address] [place] [address] Dr. Krystle Farrar (RBC) [Entitic mass]36.4 pgCritically high25.9-34.0The [facility] Cross HospitalComment on above:Performed By: #### T7, LIPA, TSH, AMADOU, CMP #### [facility] [address] [place] [address] Dr. Krystle Landry (RBC) [Mass/Vol]32.6 g/zRCllxhg91.9-35.2The [facility] HospitalComment on above:Performed By: #### T7, LIPA, TSH, AMADOU, CMP #### [facility] [address] [place] [address] Dr. Krystle Landry (RBC) [Entitic vol]111.5 fLCritically high80.0-94.0The Protivin HospitalComment on above:Performed By: #### T7, LIPA, TSH, AMADOU, CMP #### [facility] [address] [place] [address] Dr. Krystle Sanchez #0.5 103/ulNormal0.3-0.8The [facility] HospitalComment on above:Performed By: #### T7, LIPA, TSH, AMADOU, CMP #### [facility] [address] [place] [address] Dr. Krystle Jeanocytes/100 WBC (Bld)10.1 %Normal1.7-12.0[facility] Comment on above:Performed By: #### T7, LIPA, TSH, AMADOU, CMP #### [facility] [address] [place] [address] Dr. Krystle Rainey #2.8 103/ulNormal1.4-6.5The [facility] HospitalComment on above:Performed By: #### T7, LIPA, TSH, AMADOU, CMP #### [facility] [address] [place] [address] Dr. Krystle Islasutrophils/100 WBC (Bld)60.0 %Adcpvk78.0-75.0The [facility] HospitalComment on above:Performed By: #### T7, LIPA, TSH, AMADOU, CMP #### [facility] [address] [place] [address] Dr. Krystle Moody mean volume (Bld) [Entitic vol]11.0 fLNormal9.5-13.5The [facility] HospitalComment on above:Performed By: #### T7, LIPA, TSH, AMADOU, CMP #### [facility] [address] [place] [address] Dr. Krystle HeatonPLT140 103/ulCritically sva654-546Tko [facility] Cross HospitalComment on above:Performed By: #### T7, LIPA, TSH, AMADOU, CMP #### [facility] [address] [place] [address] Dr. Krystle HeatonRBC3.30 106/ulCritically low4.70-6.10The [facility] HospitalComment on above:Performed By: #### T7, LIPA, TSH, AMADOU, CMP #### [facility] [address] [place] [address] Dr. Krystle HeatonWBC4.7 103/ulNormal4.0-11.0The [facility] HospitalComment on above: Performed By: #### T7, LIPA, TSH, AMADOU, CMP #### [facility] [address] [place] [address] Dr. Krystle HeatonFERRITINon [id number] [Mass/Vol]845.0 ng/mLCritically high17.9-464.0The [facility] HospitalComment on above:Performed By: #### FERR #### [facility] [address] [place] [address] Dr. Krystle Stinson AUTO DIFFon [id number] #0.1 103/ulNormal0.0-0.1The [facility] HospitalComment on above:Performed By: #### T7, LIPA, TSH, AMADOU, CMP #### [facility] [address] [place] [address] Dr. Krystle HeatonBasophils/100 WBC (Bld)1.1 %Normal0.2-2.0[facility] Comment on above:Performed By: #### T7, LIPA, TSH, AMADOU, CMP #### [facility] [address] [place] [address] Dr. Dalton ChangEO #0.1 103/ulNormal0.0-0.7The [facility] HospitalComment on above: Performed By: #### T7, LIPA, TSH, AMADOU, CMP #### [facility] [address] [place] [address] Dr. Krystle Flynnosinophils/100 WBC (Bld)2.2 %Normal0.9-7.0[facility] Comment on above:Performed By: #### T7, LIPA, TSH, AMADOU, CMP #### [facility] [address] [place] [address] Dr. Krystle Flynnrythrocyte distribution width (RBC) [Ratio]13.1 %Lbcfcy86.0-15.0 The [facility] HospitalComment on above:Performed By: #### T7, LIPA, TSH, AMADOU, CMP #### [facility] [address] [place] [address] Dr. Krystle HeatonHematocrit (Bld) [Volume fraction]35.2 %Critically low42.0-54.0 The [facility] HospitalComment on above:Performed By: #### T7, LIPA, TSH, AMADOU, CMP #### [facility] [address] [place] [address] Dr. Krystle HeatonHemoglobin (Bld) [Mass/Vol]11.8 g/dLCritically low14.0-18.0The [facility] HospitalComment on above:Performed By: #### T7, LIPA, TSH, AMADOU, CMP #### [facility] [address] [place] [address] Dr. Krystle Garland #0.01 10e3/ulNormal0.00-0.03The [facility] HospitalComment on above:Performed By: #### T7, LIPA, TSH, AMADOU, CMP #### [facility] [address] [place] [address] Dr. Krystle Garland %0.2 %Normal0.0-0.5The [facility] HospitalComment on above: Performed By: #### T7, LIPA, TSH, AMADOU, CMP #### [facility] [address] [place] [address] Dr. Krystle Fernandez #1.6 103/ulNormal1.2-3.8The [facility] HospitalComment on above:Performed By: #### T7, LIPA, TSH, AMADOU, CMP #### [facility] [address] [place] [address] Dr. Krystle Phoenixmphocytes/100 WBC (Bld)35.1 %Ylitrr29.5-60.0The [facility] on above:Performed By: #### T7, LIPA, TSH, AMADOU, CMP #### [facility] [address] [place] [address] Dr. Krystle Brewer DIFF REQNONormalThe [facility] Cross HospitalComment on above: Performed By: #### T7, LIPA, TSH, AMADOU, CMP #### [facility] [address] [place] [address] Dr. Krystle Landry (RBC) [Entitic mass]36.6 pgCritically high25.9-34.0The [facility]iment on above:Performed By: #### T7, LIPA, TSH, AMADOU, CMP #### [facility] [address] [place] [address] Dr. Krystle Landry (RBC) [Mass/Vol]33.5 g/sEHjbsxs92.9-35.2[facility] on above:Performed By: #### T7, LIPA, TSH, AMADOU, CMP #### [facility] [address] [place] [address] Dr. Krystle Landry (RBC) [Entitic vol]109.3 fLCritically high80.0-94.0The [facility] on above:Performed By: #### T7, LIPA, TSH, AMADOU, CMP #### [facility] [address] [place] [address] Dr. Krystle Sanchez #0.5 103/ulNormal0.3-0.8[facility] on above:Performed By: #### T7, LIPA, TSH, AMADOU, CMP #### [facility] [address] [place] [address] Dr. Krystle Jeanocytes/100 WBC (Bld)11.0 %Normal1.7-12.0[facility] Comment on above:Performed By: #### T7, LIPA, TSH, AMADOU, CMP #### [facility] [address] [place] [address] Dr. Krystle Rainey #2.2 103/ulNormal1.4-6.5The [facility] HospitalComment on above:Performed By: #### T7, LIPA, TSH, AMADOU, CMP #### [facility] [address] [place] [address] Dr. Krystle Islasutrophils/100 WBC (Bld)50.4 %Ngxxpi69.0-75.0The [facility] HospitalComment on above:Performed By: #### T7, LIPA, TSH, AMADOU, CMP #### [facility] [address] [place] [address] Dr. Krystle HeatonPlatelet mean volume (Bld) [Entitic vol]10.9 fLNormal9.5-13.5The [facility] HospitalComment on above:Performed By: #### T7, LIPA, TSH, AMADOU, CMP #### [facility] [address] [place] [address] Dr. Krystle HeatonPLT158 103/lgSiletm530-977Stp [facility]iment on above: Performed By: #### T7, LIPA, TSH, AMADOU, CMP #### [facility] [address] [place] [address] Dr. Krystle HeatonRBC3.22 106/ulCritically low4.70-6.10The [facility] HospitalComment on above:Performed By: #### T7, LIPA, TSH, AMADOU, CMP #### [facility] [address] [place] [address] Dr. Krystle HeatonWBC4.5 103/ulNormal4.0-11.0The [facility] on above: Performed By: #### T7, LIPA, TSH, AMADOU, CMP #### [facility] [address] [place] [address] Dr. Krystle HeatonFERRIMyah [id number] [Mass/Vol]ng/mLCritically high 17.9-464.0The [facility] HospitalComment on above:Performed By: #### HBSANS #### [facility] [address] [place] [address] Billy RodriguezBC AUTO DIFFon [id number] #0.0 103/ulNormal0.0-0.1The [facility] HospitalComment on above:Performed By: #### T7, LIPA, TSH, AMADOU, CMP #### [facility] [address] [place] [address] Dr. Krystle HeatonBasophils/100 WBC (Bld)0.6 %Normal0.2-2.0[facility] Comment on above:Performed By: #### T7, LIPA, TSH, AMADOU, CMP #### [facility] [address] [place] [address] Dr. Krystle Joiner #0.1 103/ulNormal0.0-0.7The [facility] HospitalComment on above: Performed By: #### T7, LIPA, TSH, AMADOU, CMP #### [facility] [address] [place] [address] Dr. Krystle Flynnosinophils/100 WBC (Bld)3.2 %Normal0.9-7.0[facility] Comment on above:Performed By: #### T7, LIPA, TSH, AMADOU, CMP #### [facility] [address] [place] [address] Dr. Krystle Flynnrythrocyte distribution width (RBC) [Ratio]13.6 %Gsuhon94.0-15.0 The [facility] HospitalComment on above:Performed By: #### T7, LIPA, TSH, AMADOU, CMP #### [facility] [address] [place] [address] Dr. Krystle HeatonHematocrit (Bld) [Volume fraction]35.3 %Critically low42.0-54.0 The [facility] HospitalComment on above:Performed By: #### T7, LIPA, TSH, AMADOU, CMP #### [facility] [address] [place] [address] Dr. Krystle HeatonHemoglobin (Bld) [Mass/Vol]11.9 g/dLCritically low14.0-18.0The [facility] HospitalComment on above:Performed By: #### T7, LIPA, TSH, AMADOU, CMP #### [facility] [address] [place] [address] Dr. Krystle Garland #0.01 10e3/ulNormal0.00-0.03The [facility] HospitalComment on above:Performed By: #### T7, LIPA, TSH, AMADOU, CMP #### [facility] [address] [place] [address] Dr. Krystle Garland %0.3 %Normal0.0-0.5The [facility] HospitalComment on above: Performed By: #### T7, LIPA, TSH, AMADOU, CMP #### [facility] [address] [place] [address] Dr. Krystle Fernandez #1.1 103/ulCritically low1.2-3.8[facility] Comment on above:Performed By: #### T7, LIPA, TSH, AMADOU, CMP #### [facility] [address] [place] [address] Dr. Krystle Gillhocytes/100 WBC (Bld)35.1 %Hqqhoj96.5-60.0The [facility] HospitalComment on above:Performed By: #### T7, LIPA, TSH, AMADOU, CMP #### [facility] [address] [place] [address] Dr. Krystle CruzUAL DIFF REQNONormalThe [facility] HospitalComment on above: Performed By: #### T7, LIPA, TSH, AMADOU, CMP #### [facility] [address] [place] [address] Dr[facility] (RBC) [Entitic mass]37.1 pgCritically high25.9-34.0The [facility] HospitalComment on above:Performed By: #### T7, LIPA, TSH, AMADOU, CMP #### [facility] [address] [place] [address] Dr. Krystle Landry (RBC) [Mass/Vol]33.7 g/rWLasmdl76.9-35.2The [facility] HospitalComment on above:Performed By: #### T7, LIPA, TSH, AMADOU, CMP #### [facility] [address] [place] [address] Dr. Krystle Landry (RBC) [Entitic vol]110.0 fLCritically high80.0-94.0The [facility] HospitalComment on above:Result Comment: macrocytosis 3+Performed By: #### T7, LIPA, TSH, AMADOU, CMP #### [facility] [address] [place] [address] Dr. Krystle Sanchez #0.3 103/ulNormal0.3-0.8The [facility] HospitalComment on above:Performed By: #### T7, LIPA, TSH, AMADOU, CMP #### [facility] [address] [place] [address] Dr. Krystle Jeanocytes/100 WBC (Bld)10.7 %Normal1.7-12.0[facility] Comment on above:Performed By: #### T7, LIPA, TSH, AMADOU, CMP #### [facility] [address] [place] [address] Dr. Krystle Rainey #1.5 103/ulNormal1.4-6.5The [facility] HospitalComment on above:Performed By: #### T7, LIPA, TSH, AMADOU, CMP #### [facility] [address] [place] [address] Dr. Krystle Islasutrophils/100 WBC (Bld)50.1 %Bqetex57.0-75.0The [facility] HospitalComment on above:Performed By: #### T7, LIPA, TSH, AMADOU, CMP #### [facility] [address] [place] [address] Dr. Krystle Moody mean volume (Bld) [Entitic vol]10.8 fLNormal9.5-13.5The [facility] HospitalComment on above:Performed By: #### T7, LIPA, TSH, AMADOU, CMP #### [facility] [address] [address] [address] Krystle HeatonPLT131 103/ulCritically [id number] [facility] on above:Performed By: #### T7, LIPA, TSH, AMADOU, CMP #### [facility] [address] [place] [address] Dr. Krystle HeatonRBC3.21 106/ulCritically low4.70-6.10The [facility] HospitalComment on above:Performed By: #### T7, LIPA, TSH, AMADOU, CMP #### [facility] [address] [place] [address] Dr. Krystle HeatonWBC3.1 103/ulCritically low4.0-11.0The [facility] on above:Performed By: #### T7, LIPA, TSH, AMADOU, CMP #### [facility] [address] [place] [address] Dr. Krystle HeatonFERRITINon [id number] [Mass/Vol]ng/mLCritically high 17.9-464.0The [facility] on above:Performed By: #### FERR #### [facility] [address] [place] [address] Dr. 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 He denies cognitive impairment or fluidoverload. Upper Gastrointestinal: no abdominal pain, no eructation, [...] MD; Apr 13 2021 1:09PM EST (Author) [facility] AUTO DIFFon [id number] #0.0 103/ulNormal0.0-0.1The [facility] HospitalComment on above:Performed By: #### HBSANS #### [facility] [address] [place] [address] Billy KarenBasophils/100 WBC (Bld)0.9 %Normal0.2-2.0[facility] Comment on above:Performed By: #### HBSANS #### [facility] [address] [place] [address] Billy KarenEO #0.1 103/ulNormal0.0-0.7The [facility] HospitalComment on above: Performed By: #### HBSANS #### [facility] [address] [place] [address] Billy KarenEosinophils/100 WBC (Bld)3.0 %Normal0.9-7.0[facility] Comment on above:Performed By: #### HBSANS #### [facility] [address] [place] [address] Billy KarenErythrocyte distribution width (RBC) [Ratio]13.6 %Glensr47.0-15.0The [facility] HospitalComment on above:Performed By: #### HBSANS #### [facility] [address] [place] [address] Billy KarenHematocrit (Bld) [Volume fraction]39.1 %Critically low42.0-54.0The [facility] HospitalComment on above:Performed By: #### HBSANS #### [facility] [address] [place] [address] Billy KarenHemoglobin (Bld) [Mass/Vol]13.1 g/dLCritically low14.0-18.0The [facility] HospitalComment on above:Performed By: #### HBSANS #### [facility] [address] [place] [address] Billy KarenIG #0.02 10e3/ulNormal0.00-0.03The [facility] HospitalComment on above:Performed By: #### HBSANS #### [facility] [address] [place] [address] Billy DeanenIG %0.5 %Normal0.0-0.5The [facility] HospitalComment on above: Performed By: #### HBSANS #### [facility] [address] [place] [address] Billy KarenLYMPH #1.1 103/ulCritically low1.2-3.8The [facility] HospitalComment on above:Performed By: #### HBSANS #### [facility] [address] [place] [address] Billy DevlinLymphocytes/100 WBC (Bld)26.7 %Wxscxr35.5-60.0[facility] Comment on above:Performed By: #### HBSANS #### [facility] [address] [place] [address] Billy DeanenMANUAL DIFF REQNONormalThe [facility] HospitalComment on above: Performed By: #### HBSANS #### [facility] [address] [place] [address] Billy DevlinH (RBC) [Entitic mass]36.7 pgCritically high25.9-34.0[facility] HospitalComment on above:Performed By: #### HBSANS #### [facility] [address] [place] [address] Billy DevlinHC (RBC) [Mass/Vol]33.5 g/nRQebwzp67.9-35.2[facility] Comment on above:Result Comment: macrocytosisPerformed By: #### HBSANS #### [facility] [address] [place] [address] Billy DevlinV (RBC) [Entitic vol]109.5 fLCritically high80.0-94.0[facility] HospitalComment on above:Performed By: #### HBSANS #### [facility] [address] [place] [address] Billy KarenMONO #0.4 103/ulNormal0.3-0.8The [facility] HospitalComment on above: Performed By: #### MANNYANS #### [facility] [address] [place] [address] Billy KarenMonocytes/100 WBC (Bld)8.7 %Normal1.7-12.0[facility] Comment on above:Performed By: #### MANNYANS #### [facility] [address] [place] [address] Billy KarenNEUT #2.6 103/ulNormal1.4-6.5The [facility] HospitalComment on above: Performed By: #### MANNYANS #### [facility] [address] [place] [address] Billy KarenNeutrophils/100 WBC (Bld)60.2 %Itatne07.0-75.0[facility] Comment on above:Performed By: #### MANNYANS #### Green [facility] [address] [place] [address] Billy KarenPlatelet mean volume (Bld) [Entitic vol]11.1 fLNormal9.5-13.5The [facility] Cross HospitalComment on above:Performed By: #### MANNYANS #### [facility] [address] [place] [address] Billy XxpmtYSD000 103/xxSdhkug970-101Xci [facility] HospitalComment on above: Performed By: #### MANNYANS #### [facility] [address] [place] [address] Billy KarenRBC3.57 106/ulCritically low4.70-6.10The [facility] HospitalComment on above:Performed By: #### HBSANS #### [facility] [address] [place] [address] Billy KarenWBC4.3 103/ulNormal4.0-11.0The [facility] HospitalComment on above: Performed By: #### MANNYANS #### [facility] [address] [place] [address] Billy KarenFERRITINon [id number] [Mass/Vol]ng/mLCritically high 17.9-464.0The [facility] HospitalComment on above:Performed By: #### T7, LIPA, TSH, AMADOU, CMP #### [facility] [address] [place] [address] Dr. Krystle Serrano T4on [id number] T4 [Mass/Vol]0.73 ng/dLCritically low 0.78-2.19The [facility] HospitalComment on above:Performed By: #### T7, LIPA, TSH, AMADOU, CMP #### [facility] [address] [place] [address] Dr. Krystle Yu AND TIBCon 04-06-2021% VNJNGOGLXP60.8 %NormalThe Green Cross HospitalComment on above:Performed By: #### T7, LIPA, TSH, AMADOU, CMP #### [facility] [address] [place] [address] Dr. Krystle Yu [Mass/Vol]161.0 ug/kYTuiyfe45.0-181.0[facility] Comment on above:Performed By: #### T7, LIPA, TSH, AMADOU, CMP #### [facility] [address] [place] [address] Dr. Krystle Barillas SZCRUX397.0 ug/uKQwldil917.0-497.0[facility] Comment on above:Performed By: #### T7, LIPA, TSH, AMADOU, CMP #### [facility] [address] [place] [address] Dr. Krystle Barney 14(COMP METB)on 93-17-9065Cnwziis [Mass/Vol]3.7 g/dLNormal 3.5-5.0The [facility] HospitalComment on above:Performed By: #### T7, LIPA, TSH, AMADOU, CMP #### [facility] [address] [place] [address] Dr. Krystle HeatonAlbumin/Globulin [Mass ratio]1.0 {ratio}NormalThe [facility] Cross HospitalComment on above:Performed By: #### T7, LIPA, TSH, AMADOU, CMP #### [facility] [address] [place] [address] Dr. Krystle Burns [Catalytic activity/Vol]83 U/TNtmcxp52-302Kbz [facility] HospitalComment on above:Performed By: #### T7, LIPA, TSH, AMADOU, CMP #### [facility] [address] [place] [address] Dr. Krystle Posada [Catalytic activity/Vol]140 U/LCritically mlwi24-11Lpc [facility] HospitalComment on above:Performed By: #### T7, LIPA, TSH, AMADOU, CMP #### [facility] [address] [place] [address] Dr. Krystle Simpsonon gap [Moles/Vol]15.8 mmol/LNormalHol[facility] Hospital Comment on above:Performed By: #### T7, LIPA, TSH, AMADOU, CMP #### [facility] [address] [place] [address] Dr. Krystle Wright [Catalytic activity/Vol]186 U/LCritically khzh30-49Amq [facility] HospitalComment on above:Performed By: #### T7, LIPA, TSH, AMADOU, CMP #### [facility] [address] [place] [address] Dr. Krystle HeatonBilirubin [Mass/Vol]0.5 mg/dLNormal0.2-1.3TFirelands [facility] Comment on above:Performed By: #### T7, LIPA, TSH, AMADOU, CMP #### [facility] [address] [place] [address] Dr. Krystle HeatonCalcium [Mass/Vol]9.0 mg/dLNormal8.4-10.2[facility] Comment on above:Performed By: #### T7, LIPA, TSH, AMADOU, CMP #### [facility] [address] [place] [address] Dr. Krystle HeatonChloride [Moles/Vol]101 mmol/JYprtka34-654ZbtHol[facility] Hospital Comment on above:Performed By: #### T7, LIPA, TSH, AMADOU, CMP #### [facility] [address] [place] [address] Dr. Krystle HeatonCO2 [Moles/Vol]25.8 mmol/WEswrrw19.0-30.0[facility] Comment on above:Performed By: #### T7, LIPA, TSH, AMADOU, CMP #### [facility] [address] [place] [address] Dr. Krystle HeatonCreatinine [Mass/Vol]1.07 mg/dLNormal0.66-1.25The [facility] HospitalComment on above:Performed By: #### T7, LIPA, TSH, AMADOU, CMP #### [facility] [address] [place] [address] Dr. Krystle FlynnGFR-AF WALLISIAN>60Normal>=60The [facility] HospitalComment on above:Performed By: #### T7, LIPA, TSH, AMADOU, CMP #### [facility] [address] [place] [address] Dr. Krystle FlynnGFR-NON AF WALLISIAN>60Normal>=60[facility] HospitalComment on above:Performed By: #### T7, LIPA, TSH, AMADOU, CMP #### [facility] [address] [place] [address] Dr. Krystle HeatonGlobulin (S) [Mass/Vol]3.7 g/dLNormalThe [facility] HospitalComment on above:Performed By: #### T7, LIPA, TSH, AMADOU, CMP #### [facility] [address] [place] [address] Dr. Krystle HeatonGlucose [Mass/Vol]104 mg/tWOtqrvb65-703LikHolzer Hospital Comment on above:Performed By: #### T7, LIPA, TSH, AMADOU, CMP #### [facility] [address] [place] [address] Dr. Krystle HeatonPotassium [Moles/Vol]4.6 mmol/LNormal3.4-5.0[facility] Comment on above:Performed By: #### T7, LIPA, TSH, AMADOU, CMP #### [facility] [address] [place] [address] Dr. Krystle HeatonProtein [Mass/Vol]7.4 g/dLNormal6.1-8.2The [facility] Comment on above:Performed By: #### T7, LIPA, TSH, AMADOU, CMP #### [facility] [address] [place] [address] Dr. Krystle HeatonSodium [Moles/Vol]138 mmol/DOtifoh243-977Sqf [facility] Comment on above:Performed By: #### T7, LIPA, TSH, AMADOU, CMP #### [facility] [address] [place] [address] Dr. Krystle HeatonUrea nitrogen [Mass/Vol]10.0 mg/dLNormal9.0-20.0The [facility] HospitalComment on above:Performed By: #### T7, LIPA, TSH, AMADOU, CMP #### [facility] [address] [place] [address] Dr. Krystle Jang nitrogen/Creatinine [Mass ratio]9.3 mg/mgNoWayne HealthCare Main CampusComment on above:Performed By: #### T7, LIPA, TSH, AMADOU, CMP #### [facility] [address] [place] [address] Dr. Krystle Edmonds 87-52-4673DCD1.945 uIU/mLNormal0.470-4.680[facility] HospitalComment on above:Performed By: #### T7, LIPA, TSH, AMADOU, CMP #### [facility] [address] [place] [address] Dr. Kryst[facility] Fenton [facility] BELOWOhioHealth Southeastern Medical CenterComment on above: Result Comment: <0.34 UIU/ml HYPERTHYROID 0.34-5.60 UIU/ml EUTHYROID >5.60 UIU/ml HYPOTHYROIDPerformed By: #### T7, LIPA, TSH, AMADOU, CMP #### [facility] [address] [place] [address] Dr. Krystle Stinson AUTO DIFFon [id number] #0.0 103/ulNormal0.0-0.1The [facility] HospitalComment on above:Performed By: #### T7, LIPA, TSH, AMADOU, CMP #### [facility] [address] [place] [address] Dr. Krystle HeatonBasophils/100 WBC (Bld)0.8 %Normal0.2-2.0[facility] Comment on above:Performed By: #### T7, LIPA, TSH, AMADOU, CMP #### [facility] [address] [place] [address] Dr. Krystle Joiner #0.1 103/ulNormal0.0-0.7The [facility] HospitalComment on above: Performed By: #### T7, LIPA, TSH, AMADOU, CMP #### [facility] [address] [place] [address] Dr. Krystle Flynnosinophils/100 WBC (Bld)3.0 %Normal0.9-7.0[facility] Comment on above:Performed By: #### T7, LIPA, TSH, AMADOU, CMP #### [facility] [address] [place] [address] Dr. Krystle Flynnrythrocyte distribution width (RBC) [Ratio]13.9 %Wsztjd42.0-15.0 The [facility] HospitalComment on above:Performed By: #### T7, LIPA, TSH, AMADOU, CMP #### [facility] [address] [place] [address] Dr. Krystle HeatonHematocrit (Bld) [Volume fraction]40.4 %Critically low42.0-54.0 The [facility] HospitalComment on above:Performed By: #### T7, LIPA, TSH, AMADOU, CMP #### [facility] [address] [place] [address] Dr. Krystle HeatonHemoglobin (Bld) [Mass/Vol]13.5 g/dLCritically low14.0-18.0The [facility] HospitalComment on above:Performed By: #### T7, LIPA, TSH, AMADOU, CMP #### [facility] [address] [place] [address] Dr. Krystle Garland #0.01 10e3/ulNormal0.00-0.03The [facility] HospitalComment on above:Performed By: #### T7, LIPA, TSH, AMADOU, CMP #### [facility] [address] [place] [address] Dr. Krystle Garland %0.3 %Normal0.0-0.5The [facility] HospitalComment on above: Performed By: #### T7, LIPA, TSH, AMADOU, CMP #### [facility] [address] [place] [address] Dr. Krystle Fernandez #1.2 103/ulNormal1.2-3.8The [facility] HospitalComment on above:Performed By: #### T7, LIPA, TSH, AMADOU, CMP #### [facility] [address] [place] [address] Dr. Krystle Gillhocytes/100 WBC (Bld)32.7 %Sboxbe22.5-60.0The [facility] HospitalComment on above:Performed By: #### T7, LIPA, TSH, AMADOU, CMP #### [facility] [address] [place] [address] Dr. Krystle CruzUAL DIFF REQNONormalThe [facility] HospitalComment on above: Performed By: #### T7, LIPA, TSH, AMADOU, CMP #### [facility] [address] [place] [address] Dr[facility]aton[facility] (RBC) [Entitic mass]36.5 pgCritically high25.9-34.0The [facility] HospitalComment on above:Performed By: #### T7, LIPA, TSH, AMADOU, CMP #### [facility] [address] [place] [address] Dr[facility]atonBA[facility] (RBC) [Mass/Vol]33.4 g/vEDsiywt27.9-35.2The [facility] HospitalComment on above:Result Comment: MACROCYTOSIS PRESENTPerformed By: #### T7, LIPA, TSH, AMADOU, CMP #### [facility] [address] [place] [address] Dr. Krystle LandryV (RBC) [Entitic vol]109.2 fLCritically high80.0-94.0The [facility] HospitalComment on above:Performed By: #### T7, LIPA, TSH, AMADOU, CMP #### [facility] [address] [place] [address] Dr. Krystle Sanchez #0.4 103/ulNormal0.3-0.8The [facility] HospitalComment on above:Performed By: #### T7, LIPA, TSH, AMADOU, CMP #### [facility] [address] [place] [address] Dr. Krystle Jeanocytes/100 WBC (Bld)11.4 %Normal1.7-12.0[facility] Comment on above:Performed By: #### T7, LIPA, TSH, AMADOU, CMP #### [facility] [address] [place] [address] Dr. Krystle Rainey #1.9 103/ulNormal1.4-6.5The [facility] HospitalComment on above:Performed By: #### T7, LIPA, TSH, AMADOU, CMP #### [facility] [address] [place] [address] Dr. Krystle Nicolasophils/100 WBC (Bld)51.8 %Dcblkd48.0-75.0The [facility]atiment on above:Performed By: #### T7, LIPA, TSH, AMADOU, CMP #### [facility] [address] [place] [address] Dr. Krystle Moody mean volume (Bld) [Entitic vol]10.8 fLNormal9.5-13.5The [facility] on above:Performed By: #### T7, LIPA, TSH, AMADOU, CMP #### [facility] [address] [place] [address] Dr. Krystle HeatonPLT184 103/sjVhhfbu855-159Qdd [facility]iment on above: Performed By: #### T7, LIPA, TSH, AMADOU, CMP #### [facility] [address] [place] [address] Dr. Krystle HeatonRBC3.70 106/ulCritically low4.70-6.10The [facility] HospitalComment on above:Performed By: #### T7, LIPA, TSH, AMADOU, CMP #### [facility] [address] [place] [address] Dr. Krystle HeatonWBC3.6 103/ulCritically low4.0-11.0The [facility] HospitalComment on above:Performed By: #### T7, LIPA, TSH, AMADOU, CMP #### [facility] [address] [place] [address] Dr. Krystle HeatonFERRITINon 93-96-6061Tgvvfldy [Mass/Vol]ng/mLCritically high 17.9-464.0The [facility] HospitalComment on above:Performed By: #### FERR #### [facility] [address] [place] [address] Dr. Krystle Serrano T4on 18-88-0316Hrrc T4 [Mass/Vol]0.83 ng/dLNormal0.78-2.19 The [facility] HospitalComment on above:Performed By: #### FERR #### [facility] [address] [place] [address] Dr. Krystle Yu AND TIBCon 03-30-2021% QTCCWXAPFT71.5 %NormalThe [facility] HospitalComment on above:Performed By: #### FERR #### [facility] [address] [place] [address] Dr. Krystle Yu [Mass/Vol]230.0 ug/dLCritically high49.0-181.0The [facility] HospitalComment on above:Performed By: #### FERR #### [facility] [address] [place] [address] Dr. Krystle Barillas WBOGVM253.0 ug/jPWpeukg904.0-497.0[facility] Comment on above:Performed By: #### FERR #### [facility] [address] [place] [address] Dr. Krystle Barney 14(COMP METB)on 57-10-7680Eybmylv [Mass/Vol]3.8 g/dLNormal 3.5-5.0The [facility] HospitalComment on above:Performed By: #### T7, LIPA, TSH, AMADOU, CMP #### [facility] [address] [place] [address] Dr. Krystle HeatonAlbumin/Globulin [Mass ratio]1.0 {ratio}NormalThe [facility] HospitalComment on above:Performed By: #### T7, LIPA, TSH, AMADOU, CMP #### [facility] [address] [place] [address] Dr. Krystle Burns [Catalytic activity/Vol]90 U/KNpsaaq08-168Seg [facility] HospitalComment on above:Performed By: #### T7, LIPA, TSH, AMADOU, CMP #### [facility] [address] [place] [address] Dr. Krystle Posada [Catalytic activity/Vol]149 U/LCritically kwcs05-35Mnc [facility] HospitalComment on above:Performed By: #### T7, LIPA, TSH, AMADOU, CMP #### [facility] [address] [place] [address] Dr. Krystle Ortiz gap [Moles/Vol]16.0 mmol/LNormalThe [facility] Comment on above:Performed By: #### T7, LIPA, TSH, AMADOU, CMP #### [facility] [address] [place] [address] Dr. Krystle Wright [Catalytic activity/Vol]187 U/LCritically ctak65-17Lae [facility] on above:Performed By: #### T7, LIPA, TSH, AMADOU, CMP #### [facility] [address] [place] [address] Dr. Krystle Espinozairubin [Mass/Vol]0.6 mg/dLNormal0.2-1.3The [facility] Comment on above:Performed By: #### T7, LIPA, TSH, AMADOU, CMP #### [facility] [address] [place] [address] Dr. Yilan ChangCalcium [Mass/Vol]9.2 mg/dLNormal8.4-10.2[facility] Comment on above:Performed By: #### T7, LIPA, TSH, AMADOU, CMP #### [facility] [address] [address] [address] Krystle HeatonChloride [Moles/Vol]100 mmol/ANbwkuq85-674FlpHol[facility] Hospital Comment on above:Performed By: #### T7, LIPA, TSH, AMADOU, CMP #### [facility] [address] [place] [address] Dr. Krystle HeatonCO2 [Moles/Vol]26.2 mmol/MJtyhcq56.0-30.0The [facility] Comment on above:Performed By: #### T7, LIPA, TSH, AMADOU, CMP #### [facility] [address] [place] [address] Dr. Krystle HeatonCreatinine [Mass/Vol]1.07 mg/dLNormal0.66-1.25The [facility] HospitalComment on above:Performed By: #### T7, LIPA, TSH, AMADOU, CMP #### [facility] [address] [address] [address] Krystle FlynnGFR-AF WALLISIAN>60Normal>=60The [facility] HospitalComment on above:Performed By: #### T7, LIPA, TSH, AMADOU, CMP #### [facility] [address] [place] [address] Dr. Krystle FlynnGFR-NON AF WALLISIAN>60Normal>=60The [facility] HospitalComment on above:Performed By: #### T7, LIPA, TSH, AMADOU, CMP #### [facility] [address] [place] [address] Dr. Krystle HeatonGlobulin (S) [Mass/Vol]3.8 g/dLNormalThe [facility] HospitalComment on above:Performed By: #### T7, LIPA, TSH, AMADOU, CMP #### [facility] [address] [place] [address] Dr. Krystle HeatonGlucose [Mass/Vol]110 mg/dLCritically gxxb73-220Kqx [facility] HospitalComment on above:Performed By: #### T7, LIPA, TSH, AMADOU, CMP #### [facility] [address] [place] [address] Dr. Krystle HeatonPotassium [Moles/Vol]4.2 mmol/LNormal3.4-5.0[facility] Comment on above:Performed By: #### T7, LIPA, TSH, AMADOU, CMP #### [facility] [address] [place] [address] Dr. Krystle HeatonProtein [Mass/Vol]7.6 g/dLNormal6.1-8.2[facility] Comment on above:Performed By: #### T7, LIPA, TSH, AMADOU, CMP #### [facility] [address] [place] [address] Dr. Krystle HeatonSodium [Moles/Vol]138 mmol/OUclfua885-510Tfo [facility] Comment on above:Performed By: #### T7, LIPA, TSH, AMADOU, CMP #### [facility] [address] [place] [address] Dr. Krystle HeatonUrea nitrogen [Mass/Vol]9.0 mg/dLNormal9.0-20.0[facility] HospitalComment on above:Performed By: #### T7, LIPA, TSH, AMADOU, CMP #### [facility] [address] [place] [address] Dr. Krystle HeatonUrea nitrogen/Creatinine [Mass ratio]8.4 mg/mgNormalThe [facility] HospitalComment on above:Performed By: #### T7, LIPA, TSH, AMADOU, CMP #### [facility] [address] [place] [address] Dr. Krystle Edmonds 55-14-4488NCC0.030 uIU/mLNormal0.470-4.680The [facility] HospitalComment on above:Performed By: #### T7, LIPA, TSH, AMADOU, CMP #### [facility] [address] [place] [address] Dr. Yilan [facility] HospitalComment on above: Result Comment: <0.34 UIU/ml HYPERTHYROID 0.34-5.60 UIU/ml EUTHYROID >5.60 UIU/ml HYPOTHYROIDPerformed By: #### T7, LIPA, TSH, AMADOU, CMP #### [facility] [address] [place] [address] Dr. Krystle Stinson AUTO DIFFon 33-55-9420ZILO #0.0 103/ulNormal0.0-0.1The [facility] HospitalComment on above:Performed By: #### T7, LIPA, TSH, AMADOU, CMP #### [facility] [address] [place] [address] Dr. Krystle HeatonBasophils/100 WBC (Bld)0.6 %Normal0.2-2.0[facility] Comment on above:Performed By: #### T7, LIPA, TSH, AMADOU, CMP #### [facility] [address] [place] [address] Dr. Krystle Joiner #0.1 103/ulNormal0.0-0.7The [facility] HospitalComment on above: Performed By: #### T7, LIPA, TSH, AMADOU, CMP #### [facility] [address] [place] [address] Dr. Krystle Flynnosinophils/100 WBC (Bld)2.1 %Normal0.9-7.0[facility] Comment on above:Performed By: #### T7, LIPA, TSH, AMADOU, CMP #### [facility] [address] [place] [address] Dr. Krystle Flynnrythrocyte distribution width (RBC) [Ratio]12.7 %Ucjhvk50.0-15.0 The [facility] HospitalComment on above:Performed By: #### T7, LIPA, TSH, AMADOU, CMP #### [facility] [address] [place] [address] Dr. Krystle HeatonHematocrit (Bld) [Volume fraction]37.5 %Critically low42.0-54.0 The [facility] HospitalComment on above:Performed By: #### T7, LIPA, TSH, AMADOU, CMP #### [facility] [address] [place] [address] Dr. Krystle HeatonHemoglobin (Bld) [Mass/Vol]13.1 g/dLCritically low14.0-18.0The [facility] on above:Performed By: #### T7, LIPA, TSH, AMADOU, CMP #### [facility] [address] [place] [address] Dr. Krystle Garland #0.01 10e3/ulNormal0.00-0.03The [facility] on above:Performed By: #### T7, LIPA, TSH, AMADOU, CMP #### [facility] [address] [place] [address] Dr. Krystle Garland %0.3 %Normal0.0-0.5The [facility] on above: Performed By: #### T7, LIPA, TSH, AMADOU, CMP #### [facility] [address] [place] [address] Dr. Krystle Fernandez #1.2 103/ulNormal1.2-3.8The [facility] on above:Performed By: #### T7, LIPA, TSH, AMADOU, CMP #### [facility] [address] [place] [address] Dr. Krystle Gillhocytes/100 WBC (Bld)35.7 %Phhjio62.5-60.0The [facility] on above:Performed By: #### T7, LIPA, TSH, AMADOU, CMP #### [facility] [address] [place] [address] Dr. Krystle CruzUAL DIFF REQNONormalThe [facility] on above: Performed By: #### T7, LIPA, TSH, AMADOU, CMP #### [facility] [address] [place] [address] Dr. Krystle Farrar (RBC) [Entitic mass]37.0 pgCritically high25.9-34.0The [facility] HospitalComment on above:Performed By: #### T7, LIPA, TSH, AMADOU, CMP #### [facility] [address] [place] [address] Dr. Krystle Landry (RBC) [Mass/Vol]34.9 g/lXSskoom29.9-35.2The [facility] HospitalComment on above:Performed By: #### T7, LIPA, TSH, AMADOU, CMP #### [facility] [address] [place] [address] Dr. Krystle Landry (RBC) [Entitic vol]105.9 fLCritically high80.0-94.0The [facility] HospitalComment on above:Performed By: #### T7, LIPA, TSH, AMADOU, CMP #### [facility] [address] [place] [address] Dr. Krystle Sanchez #0.2 103/ulCritically low0.3-0.8The [facility] HospitalComment on above:Performed By: #### T7, LIPA, TSH, AMADOU, CMP #### [facility] [address] [place] [address] Dr. Krystle Jeanocytes/100 WBC (Bld)6.8 %Normal1.7-12.0[facility] Comment on above:Performed By: #### T7, LIPA, TSH, AMADOU, CMP #### [facility] [address] [place] [address] Dr. Krystle Rainey #1.8 103/ulNormal1.4-6.5The [facility] HospitalComment on above:Performed By: #### T7, LIPA, TSH, AMADOU, CMP #### [facility] [address] [place] [address] Dr. Krystle Islasutrophils/100 WBC (Bld)54.5 %Wttdpu23.0-75.0The [facility] HospitalComment on above:Performed By: #### T7, LIPA, TSH, AMADOU, CMP #### [facility] [address] [place] [address] Dr. Krystle Francolet mean volume (Bld) [Entitic vol]10.4 fLNormal9.5-13.5The [facility] HospitalComment on above:Performed By: #### T7, LIPA, TSH, AMADOU, CMP #### [facility] [address] [place] [address] Dr. Krystle HeatonPLT126 103/ulCritically agh971-676Wfs [facility] HospitalComment on above:Performed By: #### T7, LIPA, TSH, AMADOU, CMP #### [facility] [address] [place] [address] Dr. Krystle HeatonRBC3.54 106/ulCritically low4.70-6.10The [facility] HospitalComment on above:Performed By: #### T7, LIPA, TSH, AMADOU, CMP #### [facility] [address] [place] [address] Dr. Krystle HeatonWBC3.4 103/ulCritically low4.0-11.0The [facility] HospitalComment on above:Performed By: #### T7, LIPA, TSH, AMADOU, CMP #### [facility] [address] [place] [address] Dr. Krystle HeatonFERRITINon 17-20-8598Khncmzzr [Mass/Vol]ng/mLCritically high 17.9-464.0The [facility] HospitalComment on above:Performed By: #### T7, LIPA, TSH, AMADOU, CMP #### [facility] [address] [place] [address] Dr. Krystle Serrano T4on 77-12-2386Rgta T4 [Mass/Vol]0.78 ng/dLNormal0.78-2.19 The [facility] HospitalComment on above:Performed By: #### T7, LIPA, TSH, AMADOU, CMP #### [facility] [address] [place] [address] Dr. Krystle Yu AND TIBCon 03-22-2021% DCLJEWKMBA352.0 %NormalThe [facility] Cross HospitalComment on above:Performed By: #### T7, LIPA, TSH, AMADOU, CMP #### [facility] [address] [place] [address] Dr. Krystle Yu [Mass/Vol]233.0 ug/dLCritically high49.0-181.0The [facility] Cross HospitalComment on above:Performed By: #### T7, LIPA, TSH, AMADOU, CMP #### [facility] [address] [place] [address] Dr. Krystle Barillas PWLOMN894.0 ug/dLCritically izk057.0-497.0The [facility] HospitalComment on above:Performed By: #### T7, LIPA, TSH, AMADOU, CMP #### [facility] [address] [place] [address] Dr. Krystle Barney 14(COMP METB)on [id number] [Mass/Vol]3.5 g/dLNormal 3.5-5.0The [facility] HospitalComment on above:Performed By: #### T7, LIPA, TSH, AMADOU, CMP #### [facility] [address] [place] [address] Dr. Krystle HeatonAlbumin/Globulin [Mass ratio]1.0 {ratio}NormalThe [facility] Cross HospitalComment on above:Performed By: #### T7, LIPA, TSH, AMADOU, CMP #### [facility] [address] [place] [address] Dr. Krystle Burns [Catalytic activity/Vol]77 U/BGcuqzw57-136Kid [facility] HospitalComment on above:Performed By: #### T7, LIPA, TSH, AMADOU, CMP #### [facility] [address] [place] [address] Dr. Krystle Posada [Catalytic activity/Vol]95 U/LCritically rohw77-08Ubl [facility] HospitalComment on above:Performed By: #### T7, LIPA, TSH, AMADOU, CMP #### [facility] [address] [place] [address] Dr. Krystle Ortiz gap [Moles/Vol]17.3 mmol/LNormalThe [facility] Comment on above:Performed By: #### T7, LIPA, TSH, AMADOU, CMP #### [facility] [address] [place] [address] Dr. Krystle HeatonAST [Catalytic activity/Vol]161 U/LCritically iivs53-68WyrHolzer HospitalComment on above:Performed By: #### T7, LIPA, TSH, AMADOU, CMP #### [facility] [address] [place] [address] Dr. Krystle HeatonBilirubin [Mass/Vol]0.8 mg/dLNormal0.2-1.3The [facility] Comment on above:Performed By: #### T7, LIPA, TSH, AMADOU, CMP #### [facility] [address] [place] [address] Dr. Krystle HeatonCalcium [Mass/Vol]8.5 mg/dLNormal8.4-10.2[facility] Comment on above:Performed By: #### T7, LIPA, TSH, AMADOU, CMP #### [facility] [address] [place] [address] Dr. Krystle HeatonChloride [Moles/Vol]101 mmol/GDqwszz03-285Dyt [facility] Comment on above:Performed By: #### T7, LIPA, TSH, AMADOU, CMP #### [facility] [address] [place] [address] Dr. Krystle HetaonCO2 [Moles/Vol]22.6 mmol/XUrxbzi99.0-30.0[facility] Comment on above:Performed By: #### T7, LIPA, TSH, AMADOU, CMP #### [facility] [address] [place] [address] Dr. Krystle HeatonCreatinine [Mass/Vol]0.98 mg/dLNormal0.66-1.25The [facility] HospitalComment on above:Performed By: #### T7, LIPA, TSH, AMADOU, CMP #### [facility] [address] [place] [address] Dr. Krystle FlynnGFR-AF WALLISIAN>60Normal>=60The [facility] HospitalComment on above:Performed By: #### T7, LIPA, TSH, AMADOU, CMP #### [facility] [address] [place] [address] Dr. Krystle FlynnGFR-NON AF WALLISIAN>60Normal>=60The [facility] HospitalComment on above:Performed By: #### T7, LIPA, TSH, AMADOU, CMP #### [facility] [address] [place] [address] Dr. Krystle HeatonGlobulin (S) [Mass/Vol]3.4 g/dLNormalThe [facility] HospitalComment on above:Performed By: #### T7, LIPA, TSH, AMADOU, CMP #### [facility] [address] [place] [address] Dr. Krystle HeatonGlucose [Mass/Vol]103 mg/oGAtuidb55-842TkhHolzer Hospital Comment on above:Performed By: #### T7, LIPA, TSH, AMADOU, CMP #### [facility] [address] [place] [address] Dr. Krystle HeatonPotassium [Moles/Vol]3.9 mmol/LNormal3.4-5.0The [facility] Comment on above:Performed By: #### T7, LIPA, TSH, AMADOU, CMP #### [facility] [address] [place] [address] Dr. Krystle HeatonProtein [Mass/Vol]6.9 g/dLNormal6.1-8.2[facility] Comment on above:Performed By: #### T7, LIPA, TSH, AMADOU, CMP #### [facility] [address] [place] [address] Dr. Krystle HeatonSodium [Moles/Vol]137 mmol/TAkfzam132-272WidHolzer Hospital Comment on above:Performed By: #### T7, LIPA, TSH, AMADOU, CMP #### [facility] [address] [place] [address] Dr. Krystle HeatonUrea nitrogen [Mass/Vol]8.0 mg/dLCritically low9.0-20.0The [facility] HospitalComment on above:Performed By: #### T7, LIPA, TSH, AMADOU, CMP #### [facility] [address] [place] [address] Dr. Krystle Jang nitrogen/Creatinine [Mass ratio]8.2 mg/mgNoWayne HealthCare Main CampusComment on above:Performed By: #### T7, LIPA, TSH, AMADOU, CMP #### [facility] [address] [place] [address] Dr. Krystle Edmonds 46-53-2355KMV6.059 uIU/mLNormal0.470-4.680The [facility] HospitalComment on above:Performed By: #### T7, LIPA, TSH, AMADOU, CMP #### [facility] [address] [place] [address] Dr. Krystle YoonPremier Health Miami Valley HospitalComment on above: Result Comment: <0.34 UIU/ml HYPERTHYROID 0.34-5.60 UIU/ml EUTHYROID >5.60 UIU/ml HYPOTHYROIDPerformed By: #### T7, LIPA, TSH, AMADOU, CMP #### [facility] [address] [place] [address] Dr. Krystle Stinson AUTO DIFFon [id number] #0.0 103/ulNormal0.0-0.1Holzer HospitalComment on above:Performed By: #### T7, LIPA, TSH, AMADOU, CMP #### [facility] [address] [place] [address] Dr. Krystle HeatonBasophils/100 WBC (Bld)0.3 %Normal0.2-2.0[facility] Comment on above:Performed By: #### T7, LIPA, TSH, AMADOU, CMP #### [facility] [address] [place] [address] Dr. Krystle FlynnO #0.1 103/ulNormal0.0-0.7The [facility] HospitalComment on above: Performed By: #### T7, LIPA, TSH, AMADOU, CMP #### [facility] [address] [place] [address] Dr. Krystle Flynnosinophils/100 WBC (Bld)1.8 %Normal0.9-7.0[facility] Comment on above:Performed By: #### T7, LIPA, TSH, AMADOU, CMP #### [facility] [address] [place] [address] Dr. Krystle Flynnrythrocyte distribution width (RBC) [Ratio]12.5 %Ripmdo96.0-15.0 [facility] on above:Performed By: #### T7, LIPA, TSH, AMADOU, CMP #### [facility] [address] [place] [address] Dr. Krystle HeatonHematocrit (Bld) [Volume fraction]40.9 %Critically low42.0-54.0 The [facility] HospitalComment on above:Performed By: #### T7, LIPA, TSH, AMADOU, CMP #### [facility] [address] [place] [address] Dr. Krystle HeatonHemoglobin (Bld) [Mass/Vol]14.1 g/pTMrnsui26.0-18.0The [facility] HospitalComment on above:Performed By: #### T7, LIPA, TSH, AMADOU, CMP #### [facility] [address] [place] [address] Dr. Krystle Garland #0.01 10e3/ulNormal0.00-0.03The [facility] on above:Performed By: #### T7, LIPA, TSH, AMADOU, CMP #### [facility] [address] [place] [address] Dr. Krystle Garland %0.3 %Normal0.0-0.5The [facility] HospitalComment on above: Performed By: #### T7, LIPA, TSH, AMADOU, CMP #### [facility] [address] [place] [address] Dr. Krystle Fernandez #1.3 103/ulNormal1.2-3.8The [facility] HospitalComment on above:Performed By: #### T7, LIPA, TSH, AMADOU, CMP #### [facility] [address] [place] [address] Dr. Krystle Phoenixmphocytes/100 WBC (Bld)41.1 %Rhgupt43.5-60.0The [facility] HospitalComment on above:Performed By: #### T7, LIPA, TSH, AMADOU, CMP #### [facility] [address] [place] [address] Dr. Krystle Brewer DIFF REQNONormalThe [facility] HospitalComment on above: Performed By: #### T7, LIPA, TSH, AMADOU, CMP #### [facility] [address] [place] [address] Dr. Krystle Landry (RBC) [Entitic mass]36.3 pgCritically high25.9-34.0The [facility] HospitalComment on above:Performed By: #### T7, LIPA, TSH, AMADOU, CMP #### [facility] [address] [place] [address] Dr. Krystle Landry (RBC) [Mass/Vol]34.5 g/wJKkxmay76.9-35.2The [facility] HospitalComment on above:Performed By: #### T7, LIPA, TSH, AMADOU, CMP #### [facility] [address] [place] [address] Dr. Krystle Landry (RBC) [Entitic vol]105.4 fLCritically high80.0-94.0The [facility] HospitalComment on above:Performed By: #### T7, LIPA, TSH, AMADOU, CMP #### [facility] [address] [place] [address] Dr. Krystle Sanchez #0.3 103/ulNormal0.3-0.8The [facility] HospitalComment on above:Performed By: #### T7, LIPA, TSH, AMADOU, CMP #### [facility] [address] [place] [address] Dr. Krystle Jeanocytes/100 WBC (Bld)8.0 %Normal1.7-12.0The [facility] Comment on above:Performed By: #### T7, LIPA, TSH, AMADOU, CMP #### [facility] [address] [place] [address] Dr. Krystle Rainey #1.6 103/ulNormal1.4-6.5The [facility] HospitalComment on above:Performed By: #### T7, LIPA, TSH, AMADOU, CMP #### [facility] [address] [place] [address] Dr. Krystle Nicolasophils/100 WBC (Bld)48.5 %Hfzneh64.0-75.0The [facility] on above:Performed By: #### T7, LIPA, TSH, AMADOU, CMP #### [facility] [address] [place] [address] Dr. Krystle HeatonPlatelet mean volume (Bld) [Entitic vol]10.6 fLNormal9.5-13.5The [facility] on above:Performed By: #### T7, LIPA, TSH, AMADOU, CMP #### [facility] [address] [place] [address] Dr. Krystle HeatonPLT134 103/ulCritically hxn002-495Frd [facility] HospitalComkresge [facility] on above:Performed By: #### T7, LIPA, TSH, AMADOU, CMP #### [facility] [address] [place] [address] Dr. Krystle HeatonRBC3.88 106/ulCritically low4.70-6.10The [facility] HospitalComkresge eye institute on above:Result Comment: Macrocytosis 1+ Stomatocytes 1+Performed By: #### T7, LIPA, TSH, AMADOU, CMP #### [facility] [address] [place] [address] Dr. Krystle HeatonWBC3.3 103/ulCritically low4.0-11.0The [facility] on above:Performed By: #### T7, LIPA, TSH, AMADOU, CMP #### [facility] [address] [place] [address] Dr. Krystle HeatonFERRITINon 66-67-4076Gradhngx [Mass/Vol]ng/mLCritically high 17.9-464.0The [facility] HospitalComment on above:Performed By: #### T7, LIPA, TSH, AMADOU, CMP #### [facility] [address] [place] [address] Dr. Krystle Serrano T4on 77-12-0533Kccj T4 [Mass/Vol]0.82 ng/dLNormal0.78-2.19 [facility] on above:Performed By: #### T7, LIPA, TSH, AMADOU, CMP #### [facility] [address] [place] [address] Dr. Krystle uY AND TIBCon 03-17-2021% PCONFLLJST221.8 %NormalThe [facility] HospitalComment on above:Performed By: #### T7, LIPA, TSH, AMADOU, CMP #### [facility] [address] [place] [address] Dr. Krystle Yu [Mass/Vol]249.0 ug/dLCritically high49.0-181.0The [facility] HospitalComment on above:Performed By: #### T7, LIPA, TSH, AMADOU, CMP #### [facility] [address] [place] [address] Dr. Krystle HeatonTIBLianna PQFBVT341.0 ug/dLCritically xsq757.0-497.0The [facility] on above:Performed By: #### T7, LIPA, TSH, AMADOU, CMP #### [facility] [address] [place] [address] Dr. Krystle HeatonPROF 14(COMP METB)on 20-78-6483Zwlqrgf [Mass/Vol]3.7 g/dLNormal 3.5-5.0The [facility] on above:Performed By: #### T7, LIPA, TSH, AMADOU, CMP #### [facility] [address] [place] [address] Dr. Krystle HeatonAlbumin/Globulin [Mass ratio]1.1 {ratio}NormalThe [facility] on above:Performed By: #### T7, LIPA, TSH, AMADOU, CMP #### [facility] [address] [place] [address] Dr. Krystle Burns [Catalytic activity/Vol]78 U/RRbyqfl80-451Rnw Protivin HospitalComment on above:Performed By: #### T7, LIPA, TSH, AMADOU, CMP #### [facility] [address] [place] [address] Dr. Krystle GordonT [Catalytic activity/Vol]100 U/LCritically reke57-75PdfHolzer HospitalComment on above:Performed By: #### T7, LIPA, TSH, AMADOU, CMP #### [facility] [address] [place] [address] Dr. Krystle Simpsonon gap [Moles/Vol]14.4 mmol/LNormalHolzer Hospital Comment on above:Performed By: #### T7, LIPA, TSH, AMADOU, CMP #### [facility] [address] [place] [address] Dr. Krystle Wright [Catalytic activity/Vol]158 U/LCritically wjln51-89Nvz [facility] HospitalComment on above:Performed By: #### T7, LIPA, TSH, AMADOU, CMP #### [facility] [address] [place] [address] Dr. Krystle HeatonBilirubin [Mass/Vol]0.6 mg/dLNormal0.2-1.3TFirelands Regional Medical Center [facility] Campus Comment on above:Performed By: #### T7, LIPA, TSH, AMADOU, CMP #### [facility] [address] [place] [address] Dr. Krystle HeatonCalcium [Mass/Vol]8.9 mg/dLNormal8.4-10.2[facility] Comment on above:Performed By: #### T7, LIPA, TSH, AMADOU, CMP #### [facility] [address] [place] [address] Dr. Krystle HeatonChloride [Moles/Vol]100 mmol/SHixmev63-708JpaHolzer Hospital Comment on above:Performed By: #### T7, LIPA, TSH, AMADOU, CMP #### [facility] [address] [place] [address] Dr. Krystle HeatonCO2 [Moles/Vol]27.3 mmol/SPbwdff74.0-30.0[facility] Comment on above:Performed By: #### T7, LIPA, TSH, AMADOU, CMP #### [facility] [address] [place] [address] Dr. Krystle HeatonCreatinine [Mass/Vol]1.08 mg/dLNormal0.66-1.25The [facility] HospitalComment on above:Performed By: #### T7, LIPA, TSH, AMADOU, CMP #### [facility] [address] [place] [address] Dr. Krystle FlynnGFR-AF WALLISIAN>60Normal>=60The [facility] HospitalComment on above:Performed By: #### T7, LIPA, TSH, AMADOU, CMP #### [facility] [address] [place] [address] Dr. Krystle FlynnGFR-NON AF WALLISIAN>60Normal>=60The [facility] HospitalComment on above:Performed By: #### T7, LIPA, TSH, AMADOU, CMP #### [facility] [address] [place] [address] Dr. Krystle HeatonGlobulin (S) [Mass/Vol]3.5 g/dLNormalThe [facility] HospitalComment on above:Performed By: #### T7, LIPA, TSH, AMADOU, CMP #### [facility] [address] [place] [address] Dr. Krystle HeatonGlucose [Mass/Vol]115 mg/dLCritically dtfl72-310GqkHolzer HospitalComment on above:Performed By: #### T7, LIPA, TSH, AMADOU, CMP #### [facility] [address] [place] [address] Dr. Krystle HeatonPotassium [Moles/Vol]3.7 mmol/LNormal3.4-5.0[facility] Comment on above:Performed By: #### T7, LIPA, TSH, AMADOU, CMP #### [facility] [address] [place] [address] Dr. Krystle HeatonProtein [Mass/Vol]7.2 g/dLNormal6.1-8.2[facility] Comment on above:Performed By: #### T7, LIPA, TSH, AMADOU, CMP #### [facility] [address] [place] [address] Dr. Krystle Juniordium [Moles/Vol]138 mmol/YHgegwf461-105Adj [facility] Comment on above:Performed By: #### T7, LIPA, TSH, AMADOU, CMP #### [facility] [address] [place] [address] Dr. Krystle HeatonUrea nitrogen [Mass/Vol]10.0 mg/dLNormal9.0-20.0The [facility] HospitalComment on above:Performed By: #### T7, LIPA, TSH, AMADOU, CMP #### [facility] [address] [place] [address] Dr. Kryslte Jang nitrogen/Creatinine [Mass ratio]9.3 mg/mgNoWayne HealthCare Main CampusComment on above:Performed By: #### T7, LIPA, TSH, AMADOU, CMP #### [facility] [address] [place] [address] Dr. Krystle Edmonds 47-77-6703EBW9.904 uIU/mLNormal0.470-4.680The [facility] HospitalComment on above:Performed By: #### T7, LIPA, TSH, AMADOU, CMP #### [facility] [address] [place] [address] Dr. Krystle Fenton [facility] BELOWOhioHealth Southeastern Medical CenterComment on above: Result Comment: <0.34 UIU/ml HYPERTHYROID 0.34-5.60 UIU/ml EUTHYROID >5.60 UIU/ml HYPOTHYROIDPerformed By: #### T7, LIPA, TSH, AMADOU, CMP #### [facility] [address] [place] [address] Dr. Krystle Stinson AUTO DIFFon [id number] #0.0 103/ulNormal0.0-0.1The [facility] HospitalComment on above:Performed By: #### T7, LIPA, TSH, AMADOU, CMP #### [facility] [address] [place] [address] Dr. Krystle HeatonBasophils/100 WBC (Bld)0.8 %Normal0.2-2.0The [facility] Comment on above:Performed By: #### T7, LIPA, TSH, AMADOU, CMP #### [facility] [address] [place] [address] Dr. Krystle Joiner #0.1 103/ulNormal0.0-0.7The [facility] HospitalComment on above: Performed By: #### T7, LIPA, TSH, AMADOU, CMP #### [facility] [address] [place] [address] Dr. Krystle Flynnosinophils/100 WBC (Bld)1.5 %Normal0.9-7.0The [facility] Comment on above:Performed By: #### T7, LIPA, TSH, AMADOU, CMP #### [facility] [address] [place] [address] Dr. Krystle Flynnrythrocyte distribution width (RBC) [Ratio]12.2 %Uzdquy58.0-15.0 The [facility] HospitalComment on above:Performed By: #### T7, LIPA, TSH, AMADOU, CMP #### [facility] [address] [place] [address] Dr. Krystle HeatonHematocrit (Bld) [Volume fraction]45.5 %Yxxkqq00.0-54.0The [facility] HospitalComment on above:Performed By: #### T7, LIPA, TSH, AMADOU, CMP #### [facility] [address] [place] [address] Dr. Krystle HeatonHemoglobin (Bld) [Mass/Vol]15.9 g/zFOjtbed92.0-18.0The [facility] HospitalComment on above:Performed By: #### T7, LIPA, TSH, AMADOU, CMP #### [facility] [address] [place] [address] Dr. Krystle HeatonIG #0.01 10e3/ulNormal0.00-0.03The [facility] HospitalComment on above:Performed By: #### T7, LIPA, TSH, AMADOU, CMP #### [facility] [address] [place] [address] Dr. Krystle Garland %0.2 %Normal0.0-0.5The [facility] HospitalComment on above: Performed By: #### T7, LIPA, TSH, AMADOU, CMP #### [facility] [address] [place] [address] Dr. Krystle Fernandez #1.8 103/ulNormal1.2-3.8The [facility] HospitalComment on above:Performed By: #### T7, LIPA, TSH, AMADOU, CMP #### [facility] [address] [place] [address] Dr. Krystle Gillhocytes/100 WBC (Bld)37.8 %Iqswdc74.5-60.0The [facility] HospitalComment on above:Performed By: #### T7, LIPA, TSH, AMADOU, CMP #### [facility] [address] [place] [address] Dr. Krystle CruzUAL DIFF REQNONormalThe [facility] HospitalComment on above: Performed By: #### T7, LIPA, TSH, AMADUO, CMP #### [facility] [address] [place] [address] Dr. Krystle Landry (RBC) [Entitic mass]36.4 pgCritically high25.9-34.0The [facility] HospitalComment on above:Performed By: #### T7, LIPA, TSH, AMADOU, CMP #### [facility] [address] [place] [address] Dr. Krystle Landry (RBC) [Mass/Vol]34.9 g/zNYiwapb34.9-35.2The [facility] HospitalComment on above:Performed By: #### T7, LIPA, TSH, AMADOU, CMP #### [facility] [address] [place] [address] Dr. Krystle Landry (RBC) [Entitic vol]104.1 fLCritically high80.0-94.0The [facility] HospitalComment on above:Performed By: #### T7, LIPA, TSH, AMADOU, CMP #### [facility] [address] [place] [address] Dr. Krystle Sanchez #0.4 103/ulNormal0.3-0.8The [facility] HospitalComment on above:Performed By: #### T7, LIPA, TSH, AMADOU, CMP #### [facility] [address] [place] [address] Dr. Krystle Jeanocytes/100 WBC (Bld)8.3 %Normal1.7-12.0The [facility] Comment on above:Performed By: #### T7, LIPA, TSH, AMADOU, CMP #### [facility] [address] [place] [address] Dr. Krystle Rainey #2.4 103/ulNormal1.4-6.5The [facility] HospitalComment on above:Performed By: #### T7, LIPA, TSH, AMADOU, CMP #### [facility] [address] [place] [address] Dr. Krystle Islasutrophils/100 WBC (Bld)51.4 %Gehdle80.0-75.0The [facility] HospitalComment on above:Performed By: #### T7, LIPA, TSH, AMADOU, CMP #### [facility] [address] [place] [address] Dr. Krystle Moody mean volume (Bld) [Entitic vol]10.8 fLNormal9.5-13.5The [facility] HospitalComment on above:Performed By: #### T7, LIPA, TSH, AMADOU, CMP #### [facility] [address] [place] [address] Dr. Krystle HeatonPLT175 103/wpIxesjt812-780Opp [facility] HospitalComment on above: Performed By: #### T7, LIPA, TSH, AMADOU, CMP #### [facility] [address] [place] [address] Dr. Krystle HeatonRBC4.37 106/ulCritically low4.70-6.10The [facility] HospitalComment on above:Performed By: #### T7, LIPA, TSH, AMADOU, CMP #### [facility] [address] [place] [address] Dr. Krystle HeatonWBC4.7 103/ulNormal4.0-11.0The [facility] HospitalComment on above: Performed By: #### T7, LIPA, TSH, AMADOU, CMP #### [facility] [address] [place] [address] Dr. Krystle HeatonFERRITINon 55-82-0377Htixnexl [Mass/Vol]ng/mLCritically high 17.9-464.0The [facility] HospitalComment on above:Performed By: #### T7, LIPA, TSH, AMADOU, CMP #### [facility] [address] [place] [address] Dr. Krystle Serrano T4on 37-30-1733Klje T4 [Mass/Vol]0.73 ng/dLCritically low 0.78-2.19The [facility] HospitalComment on above:Performed By: #### T7, LIPA, TSH, AMADOU, CMP #### [facility] [address] [place] [address] Dr. Krystle Yu AND TIBCon 03-08-2021% PHHSUXVKXM654.2 %NormalThe [facility] Cross HospitalComment on above:Performed By: #### T7, LIPA, TSH, AMADOU, CMP #### [facility] [address] [place] [address] Dr. Krystle Yu [Mass/Vol]279.0 ug/dLCritically high49.0-181.0The [facility] HospitalComment on above:Performed By: #### T7, LIPA, TSH, AMADOU, CMP #### [facility] [address] [place] [address] Dr. Krystle HeatonTIBC CUZDBQ699.0 ug/qQXgzcof581.0-497.0The [facility] Comment on above:Performed By: #### T7, LIPA, TSH, AMADOU, CMP #### [facility] [address] [place] [address] Dr. Krystle Barney 14(COMP METB)on 28-59-1565Lljxxim [Mass/Vol]3.6 g/dLNormal 3.5-5.0The [facility] HospitalComment on above:Performed By: #### T7, LIPA, TSH, AMADOU, CMP #### [facility] [address] [place] [address] Dr. Krystle HeatonAlbumin/Globulin [Mass ratio]1.0 {ratio}NormalThe [facility] HospitalComment on above:Performed By: #### T7, LIPA, TSH, AMADOU, CMP #### [facility] [address] [place] [address] Dr. Krystle Burns [Catalytic activity/Vol]68 U/JEswfxp22-514Yfr [facility] Cross HospitalComment on above:Performed By: #### T7, LIPA, TSH, AMADOU, CMP #### [facility] [address] [place] [address] Dr. Krystle Posada [Catalytic activity/Vol]58 U/KMjqnwi77-71Dgx [facility] HospitalComment on above:Performed By: #### T7, LIPA, TSH, AMADOU, CMP #### [facility] [address] [place] [address] Dr. Krystle Ortiz gap [Moles/Vol]15.5 mmol/LNormalHolzer Hospital Comment on above:Performed By: #### T7, LIPA, TSH, AMADOU, CMP #### [facility] [address] [place] [address] Dr. Krystle Wright [Catalytic activity/Vol]56 U/TKyplto85-35Tep [facility] HospitalComment on above:Performed By: #### T7, LIPA, TSH, AMADOU, CMP #### [facility] [address] [place] [address] Dr. Krystle HeatonBilirubin [Mass/Vol]0.7 mg/dLNormal0.2-1.3The [facility] Comment on above:Performed By: #### T7, LIPA, TSH, AMADOU, CMP #### [facility] [address] [place] [address] Dr. Krystle HeatonCalcium [Mass/Vol]8.9 mg/dLNormal8.4-10.2[facility] Comment on above:Performed By: #### T7, LIPA, TSH, AMADOU, CMP #### [facility] [address] [place] [address] Dr. Krystle HeatonChloride [Moles/Vol]100 mmol/IMiyheb05-581GczHolzer Hospital Comment on above:Performed By: #### T7, LIPA, TSH, AMADOU, CMP #### [facility] [address] [place] [address] Dr. Krystle HeatonCO2 [Moles/Vol]26.6 mmol/SZsflak83.0-30.0[facility] Comment on above:Performed By: #### T7, LIPA, TSH, AMADOU, CMP #### [facility] [address] [place] [address] Dr. Krystle HeatonCreatinine [Mass/Vol]1.12 mg/dLNormal0.66-1.25The [facility] HospitalComment on above:Performed By: #### T7, LIPA, TSH, AMADOU, CMP #### [facility] [address] [place] [address] Dr. Krystle FlynnGFR-AF WALLISIAN>60Normal>=60Hol[facility] HospitalComment on above:Performed By: #### T7, LIPA, TSH, AMADOU, CMP #### [facility] [address] [place] [address] Dr. Krystle FlynnGFR-NON AF WALLISIAN>60Normal>=60The [facility] HospitalComment on above:Performed By: #### T7, LIPA, TSH, AMADOU, CMP #### [facility] [address] [place] [address] Dr. Krystle HeatonGlobulin (S) [Mass/Vol]3.7 g/dLNormalThe [facility] Cross HospitalComment on above:Performed By: #### T7, LIPA, TSH, AMADOU, CMP #### [facility] [address] [place] [address] Dr. Krystle HeatonGlucose [Mass/Vol]101 mg/cNWgcmsg30-241FgxHolzer Hospital Comment on above:Performed By: #### T7, LIPA, TSH, AMADOU, CMP #### [facility] [address] [place] [address] Dr. Krystle HeatonPotassium [Moles/Vol]4.1 mmol/LNormal3.4-5.0The [facility] Comment on above:Performed By: #### T7, LIPA, TSH, AMADOU, CMP #### [facility] [address] [place] [address] Dr. Krystle HeatonProtein [Mass/Vol]7.3 g/dLNormal6.1-8.2The [facility] Comment on above:Performed By: #### T7, LIPA, TSH, AMADOU, CMP #### [facility] [address] [place] [address] Dr. Krystle HeatonSodium [Moles/Vol]138 mmol/XDkpsiw740-985Dux [facility] Comment on above:Performed By: #### T7, LIPA, TSH, AMADOU, CMP #### [facility] [address] [place] [address] Dr. Krystle HeatonUrea nitrogen [Mass/Vol]17.0 mg/dLNormal9.0-20.0Hol[facility] HospitalComment on above:Performed By: #### T7, LIPA, TSH, AMADOU, CMP #### [facility] [address] [place] [address] Dr. Krystle Jang nitrogen/Creatinine [Mass ratio]15.2 mg/mgOhioHealth Southeastern Medical CenterComment on above:Performed By: #### T7, LIPA, TSH, AMADOU, CMP #### [facility] [address] [place] [address] Dr. Krystle Edmonds 11-23-5200XUG5.781 uIU/mLNormal0.470-4.680Holzer HospitalComment on above:Performed By: #### T7, LIPA, TSH, AMADOU, CMP #### [facility] [address] [place] [address] Dr. K[facility]enton [facility] BELOWOhioHealth Southeastern Medical CenterComment on above: Result Comment: <0.34 UIU/ml HYPERTHYROID 0.34-5.60 UIU/ml EUTHYROID >5.60 UIU/ml HYPOTHYROIDPerformed By: #### T7, LIPA, TSH, AMADOU, CMP #### [facility] [address] [place] [address] Dr. Krystle HeatonFERRITINon 82-40-8457Gppkjlve [Mass/Vol]ng/mLCritically high 17.9-464.0The [facility] HospitalComment on above:Performed By: #### CBC #### [facility] [address] [place] [address] Billy KarenCovid-19 PCR (CVDTBH)on 10-68-6860AHQX-CoV-2 (COVID-19) RNA JIMBO+probe Ql (Unsp spec)Not detectedNormalNOT DETECTEDThe [facility] Comment on above:Result Comment: This test is not yet approved or cleared by the [place] FDA. When there are no FDA-approved or cleared tests available, and other criteria are met, FDA can make tests available under an emergency access mechanism called an Emergency Use Authorization (EUA). The EUA for this test is supported by the [place] Registered Nurse Rn of Health and Human Service's (HHS's) declaration that circumstances exist to justify the emergency use of in vitro diagnostics for the detection and/or diagnosis of the virus that causes COVID- 19. This EUA will remain in effect (meaning [...] of clinical signs and symptoms consistent with SARS-CoV-2.Performed By: #### T7, LIPA, TSH, AMADOU, CMP #### [facility] [address] [place] [address] Dr. Krystle HeatonCBC AUTO DIFFon [id number] #0.0 103/ulNormal0.0-0.1The [facility] HospitalComment on above:Performed By: #### T7, LIPA, TSH, AMADOU, CMP #### [facility] [address] [place] [address] Dr. Krystle HeatonBasophils/100 WBC (Bld)1.0 %Normal0.2-2.0The [facility] Comment on above:Performed By: #### T7, LIPA, TSH, AMADOU, CMP #### [facility] [address] [place] [address] Dr. Krystle FlynnO #0.1 103/ulNormal0.0-0.7The [facility] HospitalComment on above: Performed By: #### T7, LIPA, TSH, AMADOU, CMP #### [facility] [address] [place] [address] Dr. Krystle Flynnosinophils/100 WBC (Bld)2.5 %Normal0.9-7.0The [facility] Comment on above:Performed By: #### T7, LIPA, TSH, AMADOU, CMP #### [facility] [address] [place] [address] Dr. Krystle Flynnrythrocyte distribution width (RBC) [Ratio]13.7 %Jgkzwo87.0-15.0 The [facility] Cross HospitalComment on above:Performed By: #### T7, LIPA, TSH, AMADOU, CMP #### [facility] [address] [place] [address] Dr. Krystle HeatonHematocrit (Bld) [Volume fraction]44.1 %Cfiwcq20.0-54.0The [facility] HospitalComment on above:Performed By: #### T7, LIPA, TSH, AMADOU, CMP #### [facility] [address] [place] [address] Dr. Krystle HeatonHemoglobin (Bld) [Mass/Vol]15.0 g/uLIrupln19.0-18.0The [facility] HospitalComment on above:Performed By: #### T7, LIPA, TSH, AMADOU, CMP #### [facility] [address] [place] [address] Dr. Krystle HeatonIG #0.02 10e3/ulNormal0.00-0.03The [facility] HospitalComment on above:Performed By: #### T7, LIPA, TSH, AMADOU, CMP #### [facility] [address] [place] [address] Dr. Krystle Garland %0.5 %Normal0.0-0.5The [facility] HospitalComment on above: Performed By: #### T7, LIPA, TSH, AMADOU, CMP #### [facility] [address] [place] [address] Dr. Krystle Fernandez #1.6 103/ulNormal1.2-3.8The [facility] HospitalComment on above:Performed By: #### T7, LIPA, TSH, AMADOU, CMP #### [facility] [address] [place] [address] Dr. Krystle Gillhocytes/100 WBC (Bld)40.7 %Dhgaoy10.5-60.0The [facility] HospitalComment on above:Performed By: #### T7, LIPA, TSH, AMADOU, CMP #### [facility] [address] [place] [address] Dr. Krystle CruzUAL DIFF REQNONormalThe [facility] Cross HospitalComment on above: Performed By: #### T7, LIPA, TSH, AMADOU, CMP #### [facility] [address] [place] [address] Dr. Krystle Landry (RBC) [Entitic mass]36.2 pgCritically high25.9-34.0The [facility] HospitalComment on above:Performed By: #### T7, LIPA, TSH, AMADOU, CMP #### [facility] [address] [place] [address] Dr[facility]BA[facility] (RBC) [Mass/Vol]34.0 g/vDRsdypj78.9-35.2The [facility] HospitalComment on above:Performed By: #### T7, LIPA, TSH, AMADOU, CMP #### [facility] [address] [place] [address] Dr. Krystle Landry (RBC) [Entitic vol]106.5 fLCritically high80.0-94.0The [facility] HospitalComment on above:Performed By: #### T7, LIPA, TSH, AMADOU, CMP #### [facility] [address] [place] [address] Dr. Krystle Sanchez #0.3 103/ulNormal0.3-0.8The [facility] HospitalComment on above:Performed By: #### T7, LIPA, TSH, AMADOU, CMP #### [facility] [address] [place] [address] Dr. Krystle Jeanocytes/100 WBC (Bld)8.1 %Normal1.7-12.0The [facility] Comment on above:Performed By: #### T7, LIPA, TSH, AMADOU, CMP #### [facility] [address] [place] [address] Dr. Krystle Rainey #1.9 103/ulNormal1.4-6.5The [facility] HospitalComment on above:Performed By: #### T7, LIPA, TSH, AMADOU, CMP #### [facility] [address] [place] [address] Dr. Krystle Islasutrophils/100 WBC (Bld)47.2 %Vxgrrx50.0-75.0The [facility] HospitalComment on above:Performed By: #### T7, LIPA, TSH, AMADOU, CMP #### [facility] [address] [place] [address] Dr. Krystle Moody mean volume (Bld) [Entitic vol]11.6 fLNormal9.5-13.5The [facility] HospitalComment on above:Performed By: #### T7, LIPA, TSH, AMADOU, CMP #### [facility] [address] [place] [address] Dr. Krystle HeatonPLT184 103/wzNdnpxq751-442Ggq [facility] HospitalComment on above: Performed By: #### T7, LIPA, TSH, AMADOU, CMP #### [facility] [address] [place] [address] Dr. Krystle HeatonRBC4.14 106/ulCritically low4.70-6.10The [facility] HospitalComment on above:Performed By: #### T7, LIPA, TSH, AMADOU, CMP #### [facility] [address] [place] [address] Dr. Krystle HeatonWBC4.0 103/ulNormal4.0-11.0The [facility] HospitalComment on above: Performed By: #### T7, LIPA, TSH, AMADOU, CMP #### [facility] [address] [place] [address] Dr. Krystle HeatonFERRITINon 31-53-9090Qmturdzu [Mass/Vol]ng/mLCritically high 17.9-464.0The [facility] HospitalComment on above:Performed By: #### HBSANS #### [facility] [address] [place] [address] Billy DeanenCBC AUTO DIFFon [id number] #0.0 103/ulNormal0.0-0.1The [facility] HospitalComment on above:Performed By: #### T7, LIPA, TSH, AMADOU, CMP #### [facility] [address] [place] [address] Dr. Krystle HeatonBasophils/100 WBC (Bld)0.6 %Normal0.2-2.0The [facility] Comment on above:Performed By: #### T7, LIPA, TSH, AMADOU, CMP #### [facility] [address] [place] [address] Dr. Krystle Joiner #0.1 103/ulNormal0.0-0.7The [facility] HospitalComment on above: Performed By: #### T7, LIPA, TSH, AMADOU, CMP #### [facility] [address] [place] [address] Dr. Krystle Flynnosinophils/100 WBC (Bld)2.6 %Normal0.9-7.0The [facility] Comment on above:Performed By: #### T7, LIPA, TSH, AMADOU, CMP #### [facility] [address] [place] [address] Dr. Krystle Flynnrythrocyte distribution width (RBC) [Ratio]13.0 %Gxoddn73.0-15.0 [facility] on above:Performed By: #### T7, LIPA, TSH, AMADOU, CMP #### [facility] [address] [place] [address] Dr. Krystle HeatonHematocrit (Bld) [Volume fraction]46.2 %Zbxmly43.0-54.0[facility] on above:Performed By: #### T7, LIPA, TSH, AMADOU, CMP #### [facility] [address] [place] [address] Dr. Krystle HeatonHemoglobin (Bld) [Mass/Vol]16.0 g/mGNxtgws09.0-18.0The [facility] on above:Performed By: #### T7, LIPA, TSH, AMADOU, CMP #### [facility] [address] [place] [address] Dr. Krystle Garland #0.01 10e3/ulNormal0.00-0.03[facility] on above:Performed By: #### T7, LIPA, TSH, AMADOU, CMP #### [facility] [address] [place] [address] Dr. Krystle Garland %0.2 %Normal0.0-0.5[facility] on above: Performed By: #### T7, LIPA, TSH, AMADOU, CMP #### [facility] [address] [place] [address] Dr. Krystle Fernandez #1.3 103/ulNormal1.2-3.8[facility] on above:Performed By: #### T7, LIPA, TSH, AMADOU, CMP #### [facility] [address] [place] [address] Dr. Krystle Phoenixmphocytes/100 WBC (Bld)27.8 %Pigadj95.5-60.0[facility] on above:Performed By: #### T7, LIPA, TSH, AMADOU, CMP #### [facility] [address] [place] [address] Dr. Krystle CruzUAL DIFF REQNONormalThe [facility]cos HospitalComment on above: Performed By: #### T7, LIPA, TSH, AMADOU, CMP #### [facility] [address] [place] [address] Dr[facility] (RBC) [Entitic mass]34.9 pgCritically high25.9-34.0The [facility] HospitalComment on above:Performed By: #### T7, LIPA, TSH, AMADOU, CMP #### [facility] [address] [place] [address] Dr. [facility]atonBA[facility] (RBC) [Mass/Vol]34.6 g/hYTnzvza27.9-35.2The [facility] HospitalComment on above:Performed By: #### T7, LIPA, TSH, AMADOU, CMP #### [facility] [address] [place] [address] Dr. Krystle Landry (RBC) [Entitic vol]100.9 fLCritically high80.0-94.0The [facility] HospitalComment on above:Performed By: #### T7, LIPA, TSH, AMADOU, CMP #### [facility] [address] [place] [address] Dr. Krystle Sanchez #0.3 103/ulNormal0.3-0.8The [facility] HospitalComment on above:Performed By: #### T7, LIPA, TSH, AMADOU, CMP #### [facility] [address] [place] [address] Dr. Krystle Jeanocytes/100 WBC (Bld)6.6 %Normal1.7-12.0[facility] Comment on above:Performed By: #### T7, LIPA, TSH, AMADOU, CMP #### [facility] [address] [place] [address] Dr. Krystle Rainey #2.9 103/ulNormal1.4-6.5The [facility] HospitalComment on above:Performed By: #### T7, LIPA, TSH, AMADOU, CMP #### [facility] [address] [place] [address] Dr. Yilan ChangNeutrophils/100 WBC (Bld)62.2 %Mwmjra70.0-75.0The [facility] HospitalComment on above:Performed By: #### T7, LIPA, TSH, AMADOU, CMP #### [facility] [address] [place] [address] Dr. Krystle Moody mean volume (Bld) [Entitic vol]11.0 fLNormal9.5-13.5The [facility] HospitalComment on above:Performed By: #### T7, LIPA, TSH, AMADOU, CMP #### [facility] [address] [place] [address] Dr. Krystle HeatonPLT171 103/zgOjzwrl573-452Crz [facility] HospitalComment on above: Performed By: #### T7, LIPA, TSH, AMADOU, CMP #### [facility] [address] [place] [address] Dr. Krystle HeatonRBC4.58 106/ulCritically low4.70-6.10The [facility] HospitalComment on above:Performed By: #### T7, LIPA, TSH, AMADOU, CMP #### [facility] [address] [place] [address] Dr. Krystle HeatonWBC4.7 103/ulNormal4.0-11.0The [facility] HospitalComment on above: Performed By: #### T7, LIPA, TSH, AMADOU, CMP #### [facility] [address] [place] [address] Dr. Krystle HeatonPROMary 14(COMP METB)on 86-24-1675Fxuclpv [Mass/Vol]3.9 g/dLNormal 3.5-5.0The [facility] HospitalComment on above:Performed By: #### T7, LIPA, TSH, AMADOU, CMP #### [facility] [address] [place] [address] Dr. Krystle HeatonAlbumin/Globulin [Mass ratio]1.1 {ratio}NormalThe [facility] HospitalComment on above:Performed By: #### T7, LIPA, TSH, AMADOU, CMP #### [facility] [address] [place] [address] Dr. Krystle Burns [Catalytic activity/Vol]86 U/DQpievo79-948Msv [facility] HospitalComment on above:Performed By: #### T7, LIPA, TSH, AMADOU, CMP #### [facility] [address] [place] [address] Dr. Krystle GordonT [Catalytic activity/Vol]87 U/LCritically ewdq28-00Szz [facility] HospitalComment on above:Performed By: #### T7, LIPA, TSH, AMADOU, CMP #### [facility] [address] [place] [address] Dr. Krystle Ortiz gap [Moles/Vol]15.7 mmol/LNormalThe [facility] Comment on above:Performed By: #### T7, LIPA, TSH, AMADOU, CMP #### [facility] [address] [place] [address] Dr. Krystle Wright [Catalytic activity/Vol]70 U/LCritically dshq78-22Obc [facility] HospitalComment on above:Performed By: #### T7, LIPA, TSH, AMADOU, CMP #### [facility] [address] [place] [address] Dr. Krystle HeatonBilirubin [Mass/Vol]1.4 mg/dLCritically high0.2-1.3The [facility] HospitalComment on above:Performed By: #### T7, LIPA, TSH, AMADOU, CMP #### [facility] [address] [place] [address] Dr. Krystle HeatonCalcium [Mass/Vol]9.3 mg/dLNormal8.4-10.2[facility] Comment on above:Performed By: #### T7, LIPA, TSH, AMADOU, CMP #### [facility] [address] [place] [address] Dr. Krystle HeatonChloride [Moles/Vol]102 mmol/CLqvokl48-437WrfHolzer Hospital Comment on above:Performed By: #### T7, LIPA, TSH, AAMDOU, CMP #### [facility] [address] [place] [address] Dr. Krystle HeatonCO2 [Moles/Vol]26.5 mmol/EHoyqry02.0-30.0The [facility] Comment on above:Performed By: #### T7, LIPA, TSH, AMADOU, CMP #### [facility] [address] [place] [address] Dr. Krystle HeatonCreatinine [Mass/Vol]1.27 mg/dLCritically high0.66-1.25The [facility] HospitalComment on above:Performed By: #### T7, LIPA, TSH, AMADOU, CMP #### [facility] [address] [place] [address] Dr. Krystle FlynnGFR-AF WALLISIAN>60Normal>=60The [facility] HospitalComment on above:Performed By: #### T7, LIPA, TSH, AMADOU, CMP #### [facility] [address] [place] [address] Dr. Krystle FlynnGFR-NON AF WALLISIAN=60Normal>=60The [facility] HospitalComment on above:Performed By: #### T7, LIPA, TSH, AMADOU, CMP #### [facility] [address] [place] [address] Dr. Krystle HeatonGlobulin (S) [Mass/Vol]3.5 g/dLNormalThe [facility] HospitalComment on above:Performed By: #### T7, LIPA, TSH, AMADOU, CMP #### [facility] [address] [place] [address] Dr. Krystle HeatonGlucose [Mass/Vol]120 mg/dLCritically yfum98-841Zdv [facility] HospitalComment on above:Performed By: #### T7, LIPA, TSH, AMADOU, CMP #### [facility] [address] [place] [address] Dr. Krystle HeatonPotassium [Moles/Vol]4.2 mmol/LNormal3.4-5.0The [facility] Comment on above:Performed By: #### T7, LIPA, TSH, AMADOU, CMP #### [facility] [address] [place] [address] Dr. Krystle HeatonProtein [Mass/Vol]7.4 g/dLNormal6.1-8.2The [facility] Comment on above:Performed By: #### T7, LIPA, TSH, AMADOU, CMP #### [facility] [address] [place] [address] Dr. Krystle HeatonSodium [Moles/Vol]140 mmol/CWzuhhk496-132Mlp [facility] Comment on above:Performed By: #### T7, LIPA, TSH, AMADOU, CMP #### [facility] [address] [place] [address] Dr. Krystle Jang nitrogen [Mass/Vol]12.0 mg/dLNormal9.0-20.0The [facility] HospitalComment on above:Performed By: #### T7, LIPA, TSH, AMADOU, CMP #### [facility] [address] [place] [address] Dr. Krystle Jang nitrogen/Creatinine [Mass ratio]9.4 mg/mgNormBarnesville Hospitale [facility] HospitalComment on above:Performed By: #### T7, LIPA, TSH, AMADOU, CMP #### [facility] [address] [place] [address] Dr. Krystle HeatonPROTIMEon 66-40-2464NTO Coag (PPP) [Relative time]0.96 {INR} NormalThe [facility] HospitalComment on above:Performed By: #### HBSANS #### [facility] [address] [place] [address] Billy Hicks GUIDELINESSEE BELOWOhioHealth Southeastern Medical CenterComment on above: Result Comment: DESIRED INR: 2.0 - 3.0 CONDITIONS NOT LISTED BELOW 2.5 - 3.5 FOR PROSTHETIC HEART VALVE REPLACEMENT 2.5 - 3.5 RECURRENT THROMBOSISPerformed By: #### HBSANS #### [facility] [address] [place] [address] Billy Sierra Coag (PPP) [Time]10.5 sNormal9.0-11.6The [facility] HospitalComment on above:Performed By: #### HBSANS #### [facility] [address] [place] [address] Billy KarenUS SINGLE QUAD RT UPPERon 03-70-3567SI SINGLE QUAD RT UPPER ULTRASOUND RIGHT UPPER [...] Electronically authenticated by: KRISTEN GODINEZ Date: 2020-12-09 10:23[facility] Vital Signs Date TimeVital SignValuePerforming SujorvgzwLlhbamlt41-72-1187 09:54-0400Body eokrcs472.8 cmVivienne Velázquez MD Work Phone: [facility] HospitalGxgwcvdnfn33-38-5652 09:54-0400Body mass index (BMI) [Ratio]27.26 kg/i4MdoaonVivienne Velázquez MD Work Phone: [facility] HospitalAaynnnwjgp88-55-7926 09:54-0400Body ztikat10.18 kgVivienne Velázquez MD Work Phone: [facility] HospitalAhxtgitaig92-14-1495 09:54-0400Diastolic blood ktuboekm02 mm[Hg]Vivienne Velázquez MD Work Phone: [facility] HospitalUkwigbvpme50-90-5322 09:54-0400Systolic blood rsitwoam320 mm[Hg]Vivienne Velázquez MD Work Phone: [facility] Healthcare Encounters Encounter DateEncounter TypeCare ProviderFacilityStart: 09-14-2025 End: 23-51-8387mczrvpplbkEbgpqa R. ZieberFacility:[facility] Systemtart: 04-26-2025 End: 69-83-6979gyqwjuqlppYwgrbx R. ZieberFacility:[facility] Systemtart: 15-93-4689srflwhqqhbJdskn V. WestFacility:[facility] Systemtart: 03-17-2025 End: 84-91-9790twmrqougqwMjjyai R. ZieberFacility:[facility] Systemtart: 03-10-2025 End: 44-83-1395sgvgcjrdbkVljsi V. RodriFacility:[facility] Systemtart: 02-10-2025 End: 63-78-6874mtyimstccjCpnbo V. WestFacility:[facility] Systemtart: 12-28-2024 End: 16-11-6070upqkkwnughFdzqc V. WestFacility:[facility] HospitalStart: 07-14-2024 End: 96-47-1534Ziauol flowsTomas Velázquez MD Work Phone: [facility] CI ENTStart: 07-14-2024 End: 90-87-9368Ekchzo Chandler Velázquez MD Work Phone: [facility] CI ENTStart: 07-14-2024 End: 39-93-1664Htrexgnlx encounterVivienne Velázquez MD Work Phone: [facility] CI ENTStart: 07-14-2024 End: 02-88-8196Dqgdez follow up visit related to original Barbara Velázquez MD Work Phone: noms CI ENTComment on above:ETD (Eustachian tube dysfunction), right (Primary Dx)Start: 07-14-2024 End: 07-84-0379udjlkjeoggYYKGBA H TIMMISNot AvailableStart: 06-22-2024 End: 16-28-6922Tiafcqphr Result EncounterVivienne Velázquez MD Work Phone: [facility] External Department UnsolicitedStart: 06-22-2024 End: 56-66-4349Ekdozoxnq Result EncounterVivienne Velázquez MD Work Phone: [facility] External Department UnsolicitedStart: 05-26-2024 End: 70-81-7588rjfdpwfqslXLGCPH H TIMMISNot AvailableStart: 05-24-2024 End: 57-76-9916vaquxpepdgLIAIMHQ A MCGILLNot AvailableStart: 04-03-2022 End: 13-64-7841yfnrrwdwfsZoyq Katherine DottiekeFacility:[facility] Hospitaltart: 11-26-2021 End: 08-80-3632lckpydyqigZG GENEVIEVE HOYFacility:Z7Letnf: 11-15-2021 End: 32-95-8552mwrafgpcriHO GENEVIEVE ROLLEYFacility:O4Abgja: 10-08-2021 End: 64-02-5051vlkoamztvhSR AMADOU Chang REESEFacility:P3Atwxc: 09-10-2021 End: 60-28-1293raxxrzbmhuJV AMADOU Chang REESEFacility:N8Nykay: 08-15-2021 End: 46-50-8405itvrvfdicuAL AMADOU Chang REESEFacility:Z6Brkmi: 30-69-4479Jfoyglnig for preprocedural laboratory examinationDR DOCTOR [facility] Hospitaltart: 79-69-8886WVVSNYk PCP LedjSZ-Kmrsqtbdfyxwexqo-Deyjayex [address] [facility] Work Phone: Start: 84-24-3709Games UpdateNo PCP None TD-Eehgqwrxcrlzturr-Uprsdmea [address] Work Phone: Start: 07-28-2021 End: 37-44-4892hrdnsmmosfXI DOCTOR [facility]ility:A6Kwgfq: 07-28-2021 End: 49-01-0415Pagwipadd for preprocedural laboratory examinationDR DOCTOR [facility] [place]:A8Vgkzw: 28-83-2672HRZXEYx PCP RtnzTE-Zhpftgiklcnptwpn-Wsitwutv [address] [facility] Work Phone: Start: 07-09-2021 End: 01-21-5610wunwayfpkzOO AMADOU Chang REESEFacility:T7Kguzm: 06-11-2021 End: 19-91-4326ruhbbrmsmwIY AMADOU Chang REESEFacility:P6Zbmss: 05-28-2021 End: 81-67-8626egdnuoflamUN AMADOU Chang REESEFacility:K3Lcebf: 05-15-2021 End: 85-44-0395crozoaofxaZS AMADOU Chang REESEFacility:S3Pyevk: 05-01-2021 End: 39-32-9508ftztvojyjfDB GENEVIEVE HOYFacility:S5Owtbs: 04-13-2021 End: 49-97-5342afdxjfxadbRJ GENEVIEVE HOYFacility:I6Pmsiq: 95-36-5229KYKEXSn PCP WcrqYW-Xcjtktqwliqofmbp-Xqjdyeme [address] Work Phone: Start: 61-59-6038Pdfvto outpatient new 45 minutesNo PCP BwhrHX-Wzouklbjeqatcoaq-Qpvqqfcj [address] Work Phone: Start: 04-06-2021 End: 37-68-1643hbvtqjwciqUA GENEVIEVE HOYFacility:P7Grvlr: 03-30-2021 End: 90-46-9944zwflktizeaRI GENEVIEVE HOYFacility:O0Qhevt: 03-22-2021 End: 76-95-4994hcwbfypppyDO GENEVIEVE HOYFacility:S6Xrjuo: 03-17-2021 End: 61-31-0275wcqucvkpdkFB AMADOU M REESEFacility:Z4Tknpp: 03-08-2021 End: 56-91-1613ipzmdodsioWJ AMADOU M REESEFacility:N1Rdzhk: 02-13-2021 End: 24-41-4499lxlwlqbqbdKU NONE LISTED REQUESTFacility:Q0Unpoe: 02-03-2021 End: 59-47-2129htgxhdzqnuFB AMADOU M REESEFacility:P5Whgqn: 01-22-2021 End: 86-09-0263xtlotqsrkjFV GENEVIEVE HOYFacility:N2Bwieh: 01-09-2021 End: 80-11-0202pzczcfwsxkID GENEVIEVE HOYFacility:B2Bmfse: 01-06-2021 End: 83-11-9740ysqpawzbaeOK AMADOU M REESEFacility:J1Kpbti: 12-09-2020 End: 29-81-3424xaqsqcqathBJ L R MCCORMACKFacility:Q9Raelvlnqce findingNo PCP BhimTV-Emjbisobnxweydca-Zzrfarpw [address] [facility] Work Phone: Procedures DateProcedureProcedure DetailPerforming ClinicianStart: 32-72-4852GNJ 12-LEAD Vivienne Velázquez MD Work Phone: Biopsy of liverNo PCP NoneRepair of musculotendinous cuff of shoulderNo PCP None Plan of Treatment DateCare ActivityDetailAuthorStart: 08-04-2024 End: 29-29-0146Kbjsawb encounter cweuztsge60/25/2024 2:30 PM EDT Office Visit [facility] [address] [place] [address] Vivienne Velázquez MD [address] [place] [address] [facility] ENTStart: 07-28-2024 End: 85-34-5487Mmmmysv encounter rfjyiurbo50/18/2024 10:30 AM EDT Office Visit [facility] [address] [place] [address] Vivienne Velázquez MD [address] [place] [address] [facility] ENTStart: 07-14-2024 End: 92-72-6492Fxmpxxc encounter hbnocvanf08/04/2024 9:50 AM EDT Office Visit [facility] [address] [place] [address] Vivienne Velázquez MD [address] [place] [address] ArrivedNOMS CI ENTComment on above:ArrivedStart: 66-29-6768Tldzumlds vaccinationInfluenza Vaccine (#1)[facility] HealthcareStart: 16-45-2222Busbglnzm for malignant neoplasm of colonN[facility]S Healthcare Immunizations Immunization DateImmunizationNotesCare IgopuwlyOqnjrmqq96-58-7067etoszmtce virus vaccine, unspecified formulationVivienne Velázquez MD Work Phone: [facility] Payers DatePayer CategoryPayerPolicy [id number] 2023Medicare (Managed Care)[facility] Member Subscriber Plan / Payer (Effective 2023-Present) Name: Chuy Chapin Member ID: [id number] Relation to Subscriber: Self Name: Chuy Chapin Subscriber ID: [id number] Payer ID: Not on file Group ID: Not on file Type: Not on file Address: [facility] [address] [place] [id number] 71-28-1482HseivnjLBP3BS627258SrintsyGMY0AZ79-67-4421Fwhjwwe0972545 2.0.1.069664.3.579.2.593 93-27-3110Hyieopw2982530 2.0.1.728868.3.579.2.32333-49-1210Kboognj0569284 2.0.1.269335.3.579.2.54859-70-9216Lurcdxy1336292 2.0.1.336153.3.579.2.25250-67-9724Znlbzrg8561746 2.0.1.586875.3.579.2.59281-12-8494Uxwilzs1386372 2.0.1.582942.3.579.2.31060-43-3307Yzisfci3117250 2.0.1.606442.3.579.2.49460-67-1682Rtbmalz7841119 2.0.1.569553.3.579.2.66448-93-4182Ndbpvsa2900448 2.0.1.551838.3.579.2.03426-93-0645Ikjnxmu1904350 2.0.1.156771.3.579.2.25354-18-3143Jrqgnhl5323709 2.840.1.886770.3.579.2.89589-88-5947Bisonvx7262376 2.840.1.418743.3.579.2.69940-66-5941Czqpevq1475682 2.840.1.966844.3.579.2.27637-87-7573Asdwtzz2871013 2.840.1.868352.3.579.2.57591-50-0249Yinratn2779222 2.840.1.998686.3.579.2.55642-30-4988Ydnyrwc4630255 2.840.1.414439.3.579.2.22354-79-3941Ckhkvef1368904 2.0.1.830664.3.579.2.96980-23-1501Xdfwyri1383209 2.840.1.482807.3.579.2.25379-00-6064Jsfenzo8870931 2.0.1.802089.3.579.2.95431-37-9052Gfuiuuf4735974 2.840.1.428351.3.579.2.11897-49-8572Ntginjr6190009 2.0.1.284778.3.579.2.93743-72-6139Mpktxrj9609851 2.840.1.425877.3.579.2.08906-89-7138Tcczygy5607111 2.0.1.207704.3.579.2.590227-34-1317Ygrrkzw9923602 2.840.1.779231.3.579.2.848675-89-2328Jhcgrhj8032463 2.840.1.401781.3.579.2.437791-69-1204Mkysujs40968356 2.16.840.1.919878.3.579.2.20112-91-5467Gbracah19442938 2.16.840.1.760786.3.579.2.29383-81-9407Hugqvdp84998915 2.16.840.1.281801.3.579.2.00140-04-3663Xklhbht18737620 2.16.840.1.531060.3.579.2.45762-27-7034Jmujdah20384462 2.16.840.1.416306.3.579.2.37301-42-3296Itbbons07830500 2.16.840.1.620767.3.579.2.04284-33-9571Imniair59745917 2..840.1.622391.3.579.2.67926-39-5755Mtnaicy42552703 2.16.840.1.847321.3.579.2.15102-35-3246Xqfr-cjs75247995341-19-2540Mjcm-hqu 21-53-7681GtstcdiXYZ012E95269Ddzsdmw8684140 2.16.840.1.561621.3.579.2.593Unknown [id number] 2.16.840.1.550717.3.579.2.635Znbogen63297974 2.16.840.1.115918.3.579.2.531 Social History DateTypeDetailFacilityStart: 05-26-2024 End: 82-52-2479Dfjlyb smokerFormer howxifGT-Apjstthhmqwsnawt-Cinnnqxj [address] [facility] Work Phone: Start: 49-62-7918Eno [facility]tart: 56-65-7037Wbmazoo smoking status NHISEx-smokerNOME Healthcare Work Phone: History of tobacco useCurrent smokerCedar County Memorial Hospital History of tobacco useCigarette SmokerGUNNISON VALLEY HOSPITAL HealthcareStart: 24-27-0656Fkgzwcf use and exposureSmokeless tobacco non-userGUNNISON VALLEY HOSPITAL HealthcareStart: 05-26-2024 End: 42-69-7797Tkjhaldab beverage intakeEx-drinker (finding)[facility] Start: 05-26-2024 End: 94-08-2771Uwgadmt use panelGUNNISON VALLEY HOSPITAL HealthcareStart: 66-90-4982Lez assigned at birthNot on fileGUNNISON VALLEY HOSPITAL HealthcareStart: 74-54-4300CaoQzreLRFX Healthcare Clinical Notes 05-08-2021 to 04-25-2025 Note Date & EdcwEfscPgrmeqfr79-76-1123 NoteRadiology Sclerotherapy Sclerotherapy is a procedure that is done to make varicose veins and spider veins look better and it helps to relieve aching, swelling, cramping, and pain in the legs. Varicose veins are veins that have become enlarged, bulging, and twisted due to a damaged valve that causes blood to collect (pool)in the veins. Spider veins are small varicose [...] You may need more than one treatment toclose a vein all the way. The number of veins treated in one session depends on the size and location of the veins, and on your overall medical condition. Tell a health care provider about: ? Any allergies you have. ? All medicines you are taking, including vitamins, herbs, eye drops, creams, and cvum-lls-tvzpaiu medicines. ? Any bleeding problems you have. [...] care provider tells you to. ? Taking hjke-ruy-coycivp medicines, vitamins, herbs, and supplements. Tests ? [...] taken to help prevent infection. These steps mayinclude: ? Removing hair at the injection site. [...] right away. Call 911. (more content not included)...[facility] CenterOmqgigmw48-31-2006 NoteProcedures Endovenous Ablation, Care After The following information [...] and water are not available, use hand offset lithographic press setter. ? Change your dressing as told by [...] take short walks every 1?2 hours. This isimportant to improve blood flow. Ask for help [...] are sitting or lying down. ? Take kekw-qwz-gxsxwig and prescription medicines only as told by [...] provider. Document Revised: 04/04/2022 Document Reviewed: 04/04/2022 [employer] Patient Education ? 2023 [employer].[facility] CenterGfmicbrc91-13-1095 Note Procedures Endovenous Ablation Endovenous ablation is [...] including vitamins, herbs, eye drops, creams, and shkz-rlr-goqlggo medicines. ? Any problems you or family [...] tells you to take them. ? Taking pyqy-nnn-gjocwiq medicines, vitamins, herbs, and supplements. General instructions [...] stockings. These stockings help (more content not included)...[facility] CenterRbbawtiv54-40-4124 NoteProcedures Endovenous Ablation, Care After The following information [...] and water are not available, use hand offset lithographic press setter. ? Change your dressing as told by [...] take short walks every 1?2 hours. This isimportant to improve blood flow. Ask for help [...] are sitting or lying down. ? Take baul-blx-wahaxni and prescription medicines only as told by [...] provider. Document Revised: 04/04/2022 Document Reviewed: 04/04/2022 [employer] Patient Education ? 2023 [employer] Endovenous Ablation Endovenous ablation is a [...] including vitamins, herbs, eye drops, creams, and kkoe-gyy-rgzzszn medicines. ? Any problems you or family [...] Bleeding. ? Allergic react (more content not included)...[facility] CenterApidkokw37-25-2919 Note Procedures Endovenous Ablation Endovenous ablation is [...] including vitamins, herbs, eye drops, creams, and wddc-qhz-cpxjrns medicines. ? Any problems you or family [...] tells you to take them. ? Taking vquy-acq-lgmhriq medicines, vitamins, herbs, and supplements. General instructions [...] stockings. These stockings help (more content not included)...[facility] CenterRnhhbldi28-49-0039 NoteProcedures Endovenous Ablation Endovenous ablation is a procedure [...] including vitamins, herbs, eye drops, creams, and smfd-ygm-rfkatfr medicines. ? Any problems you or family [...] tells you to take them. ? Taking wxjo-hsx-ndqnnxo medicines, vitamins, herbs, and supplements. General instructions [...] stockings. These stockings help (more content not included)...[facility] CenterMcrneqyg57-88-7753 Telephone encounter Note* Telephone Encounter - Meagan Velázquez - 07/14/2024 3:46 PM EDT Called pt/pt verbalized understanding. [facility] HospitalRatedbwinm87-08-9113 Miscellaneous Notes* Telephone Encounter - Meagan Velázquez - 07/14/2024 3:46 PM EDT Called pt/pt verbalized understanding. * Telephone Encounter - Vivienne Velázquez MD - 07/14/2024 3:20 PM EDT Those are usually the cheapest. Others are potentially toxic to the ears. Have pt ask his pharmacist make a suggestion based upon Chuy's insurance * Telephone Encounter - Meagan Velázquez - 07/14/2024 3:01 PM EDT Pt wants to know if another kind of ear drops can be prescribed that are a lot cheaper. The rx prescribed is $95.00. documented in this encounterNOMS Icrzifuzsa87-70-0187 Telephone encounter Note* Telephone Encounter - Vivienne Velázquez MD - 07/14/2024 3:20 PM EDT Those are usually the cheapest. Others are potentially toxic to the ears. Have pt ask his pharmacist make a suggestion based upon Chuy's insurance [facility] [id number] Telephone encounter Note* Telephone Encounter - Meagan Velázquez - 07/14/2024 3:01 PM EDT Pt wants to know if another kind of ear drops can be prescribed that are a lot cheaper. The rx prescribed is $95.00. [facility] Fnijihjmna17-16-5431 History of Present illness Narrative* Vivienne Velázquez MD - 07/14/2024 9:50 AM EDT Subjective Patient ID: Chuy Chapin is a [...] Audio if sx persist documented in this encounterCedar County Memorial HospitalCwderhoghg22-12-8408 NotePre-procedure Verification and Time Out: Pre-Procedure Verification and Time Out: Procedure Locationprocedure area HUDDLE - Pre-procedure Verificationcompleted TIME OUT - Final Verificationcompleted immediately prior to procedure start DEBRIEFcompleted General Information: Anesthesia Critical Care: Non-Anesthesia Date/Time of Procedure: 31-Jul-2021 16:11 Post-Procedure Diagnosis: sp liver biopsy Procedure Name: Us guided liver biopsy Findings: see PACS report Procedure performed by: Sandy Roland MD Turbine Inspector(s): Dee Lopes Md Estimated Blood Loss (mL): [...] Completion Last Updated: 02-Aug-2021 13:04 by Sandy Roland)[facility] 05-08-2021 NotePre-procedure Verification and Time Out: Pre-Procedure Verification and Time Out: Procedure Locationprocedure area HUDDLE - Pre-procedure Verificationcompleted TIME OUT - Final Verificationcompleted DEBRIEFcompleted General Information: Anesthesia Critical Care: Non-Anesthesia Date/Time of Procedure: 08-May-2021 11:57 Post-Procedure Diagnosis: same Procedure Name: CT Liver Biopsy Findings: grossly normal anatomy Procedure performed by: wy Turbine Inspector(s): none Estimated Blood Loss (mL): none Specimen: [...] Completion Last Updated: 08-May-2021 11:58 by Uri Bacon)[facility] noteNo assessment information availableVan Wert County Hospital Work Phone: Evaluation note* Diagnosis ETD (Eustachian tube dysfunction), right- Primary [...] History: * Modifying Factors: * Associated Symptoms: UV-Mknarjniujfjdbeb-Ctwjdcgy [address] [facility] Work Phone: Chief Complaint * A telephone visit (audio only) between the patient (at the originating site) and the provider (at the distant site) was utilized to provide this telehealth service. * hemochromatosis Summary Purpose Family History Relationship Condition Age at Onset Recorded Date/T bear Not Specified Heart disease Unknown Diabetes mellitusUnknownfatherSmall cell malignant neoplasm of lung in adult UnknownNo Family History Records Found Advance Directives No [...] section and content) DATE CREATED AUTHOR 04/14/2021 [employer] DATE CREATED AUTHOR AUTHOR'S ORGANIZ ATION 05/15/2021 [facility] DATE CREATED AUTHOR AUTHOR'S ORGANIZ ATION 11/29/2021 [facility] DATE CREATED AUTHOR AUTHOR'S ORGANIZ ATION 04/15/2022 [facility] DATE CREATED AUTHOR AUTHOR'S ORGANIZ ATION 01/28/2023 [facility] DATE CREATED AUTHOR AUTHOR'S ORGANIZ ATION 05/24/2023 [facility] DATE CREATED AUTHOR AUTHOR'S ORGANIZ ATION 07/15/2024 [facility] DATE CREATED AUTHOR AUTHOR'S ORGANIZ ATION 09/15/2025 [facility] Goals (unrecognized section and content) Goals may be documented in a n alternate section Care Teams (unrecognized sec tion and content) Team MemberRelationshipSpecialtyStart DateEnd Date Genevieve Arreola MD [address] [place] [address] PCP - GeneralFamily Medicine05/24/24Team MemberRelationshipSpecialtyStart DateEnd Date Genevieve Arreola MD [address] [place] [address] PCP - GeneralFami Medicine05/24/24Team MemberRelationshipSpecialtyStart DateEnd Date Genevieve Arreola MD [address] [place] [address] PCP - GeneralFamily Medicine05/24/24Team MemberRelationshipSpecialtyStart DateEnd Date Genevieve Arreola MD PCP - GeneralFamily Medicine05/24/24 Reason for Visit (unrecogniz ed section and content) ReasonCommentsPost-opS/p RMT 07/06/24. Pt states ear is plugged. [...] BE BASED ON THE PRIMARY CLINICAL RECORDS. [facility] [employer] [facility]. provides no warranty or guarantee of the accuracy or completeness of information in this document.
[2025-10-22 06:58] LABS: Hematocrit 47.6 % (42.0-54.0); Hemoglobin 16.3 g/dL (14.0-18.0); Immature Granulocytes Abs Auto 0.02 10^3/uL (0.00-0.03); Immature Granulocytes Pct Auto 0.4 % (0.0-0.5); Lymphocytes Absolute Auto 2.2 10^3/uL (1.2-3.8); Mean Corpuscular HGB Conc 34.2 g/dL (29.9-35.2); Mean Corpuscular Hemoglobin 32.5 pg (25.9-34.0); Mean Corpuscular Volume 94.8 fL (80.0-94.0); Platelet Count 90 10^3/uL (150-450); Red Blood Count 5.02 10^6/uL (4.70-6.10); White Blood Count 5.5 10^3/uL (4.0-11.0)
[2025-10-22 08:17] LABS: Alanine Aminotransferase 24 U/L (16-63); Albumin Globulin Ratio 0.9; Albumin Level 3.2 g/dL (3.4-5.0); Alkaline Phosphatase 91 U/L (46-116); Anion Gap 10.9; Aspartate Amino Transferase 23 U/L (15-37); Blood Urea Nitrogen 13.0 mg/dL (7.0-18.0); Calcium 8.8 mg/dL (8.5-10.1); Carbon Dioxide 29.3 mmol/L (21.0-32.0); Chloride 109 mmol/L (98-107); Cholesterol 124 mg/dL (<=200); Estimated GFR (African America >60 (>=60 mL/min/1.73m^2); Estimated GFR (Non-African Ame >60 (>=60 mL/min/1.73m^2); Free T3 2.23 pg/mL (2.18-3.98); Globulin 3.5 g/dL; Glucose 113 mg/dL (74-106); HDL Cholesterol 47 mg/dL (40-60); Potassium 4.2 mmol/L (3.5-5.1); Sodium 145 mmol/L (136-145); Thyroid Stimulating Hormone 2.454 uIU/mL (0.358-3.740); Total Protein 6.7 g/dL (6.4-8.2); Triglycerides 70 mg/dL (<=150); VLDL CHOLESTEROL 14.0 mg/dL
== END 2025-10-22 06:32 | disposition home or self-care (01) ==
LOC: LAB 06:31
PROVIDERS: PCP Family Medicine; Visit Provider Family Medicine
DX: R74.8 Abnormal levels of other serum enzymes (principal); D64.9 Anemia, unspecified; E78.5 Hyperlipidemia, unspecified; Z12.11 Encounter for screening for malignant neoplasm of colon; Z12.5 Encounter for screening for malignant neoplasm of prostate; E03.9 Hypothyroidism, unspecified; E11.9 Type 2 diabetes mellitus without complications
CPT/HCPCS: 36415; 80053; 80061; 83036; 84436; 84443; 84481; 85025; G0103; G0328